=== PATIENT | male | born 1950 | race Caucasian/White ===

== ENCOUNTER 2023-03-10 10:08 | Outpatient (OUT) | payer MEDICARE, OTHER, SELFPAY ==
[2023-03-10 10:30] LABS: Basophils Percent Auto 0.7 % (0.2-2.0); Eosinophils Absolute Auto 0.2 10^3/uL (0.0-0.7); Eosinophils Percent Auto 4.1 % (0.9-7.0); Hematocrit 42.3 % (42.0-54.0); Hemoglobin 13.6 g/dL (14.0-18.0); Immature Granulocytes Abs Auto 0.01 10^3/uL (0.00-0.03); Immature Granulocytes Pct Auto 0.2 % (0.0-0.5); Lymphocytes Absolute Auto 1.5 10^3/uL (1.2-3.8); Lymphocytes Percent Auto 27.5 % (20.5-60.0); Mean Corpuscular HGB Conc 32.2 g/dL (29.9-35.2); Mean Corpuscular Hemoglobin 31.2 pg (25.9-34.0); Mean Platelet Volume 8.8 fL (9.5-13.5); Monocytes Absolute Auto 0.7 10^3/uL (0.3-0.8); Monocytes Percent Auto 11.8 % (1.7-12.0); Neutrophils Absolute Auto 3.1 10^3/uL (1.4-6.5); Neutrophils Percent Auto 55.7 % (43.0-75.0); Platelet Count 291 10^3/uL (150-450); Red Blood Count 4.36 10^6/uL (4.70-6.10); Red Cell Distribution Width 12.8 % (11.0-15.0); White Blood Count 5.6 10^3/uL (4.0-11.0)
[2023-03-10 12:47] LABS: Alanine Aminotransferase 34 U/L (16-63); BUN Creatinine Ratio 15.9; Calcium 9.7 mg/dL (8.5-10.1); Carbon Dioxide 27.8 mmol/L (21.0-32.0); Chloride 106 mmol/L (98-107); Chol HDL Ratio 4.2; Cholesterol 191 mg/dL (<=200); Estimated GFR (African America >60 (>=60); Estimated GFR (Non-African Ame >60 (>=60); Glucose 100 mg/dL (74-106); HDL Cholesterol 46 mg/dL (40-60); LDL Cholesterol Calculated 116.8 mg/dL; Potassium 3.8 mmol/L (3.5-5.1); Sodium 143 mmol/L (136-145); Triglycerides 141 mg/dL (<=150); VLDL CHOLESTEROL 28.2 mg/dL
[2023-03-10 14:43] LABS: Prostate Specific Antigen Scrn 1.42 ng/mL (<=4.00)
== END 2023-03-10 10:09 | disposition home or self-care (01) ==
LOC: LAB 10:08
PROVIDERS: PCP Internal Medicine; Visit Provider Internal Medicine
DX: E78.00 Pure hypercholesterolemia, unspecified (principal); I10 Essential (primary) hypertension; Z12.5 Encounter for screening for malignant neoplasm of prostate; Z79.899 Other long term (current) drug therapy; I48.0 Paroxysmal atrial fibrillation
CPT/HCPCS: 36415; 80048; 80061; 84460; 85025; G0103

== ENCOUNTER 2023-06-02 11:21 | Outpatient (OUT) | payer MEDICARE, OTHER, SELFPAY ==
--- OUTSIDE RECORDS SUMMARY | 2023-06-02 11:27 | XMS_ITS | CCD ---
Author Name Unknown Address [address] [place] [address] Organization [facility] Care Team Providers Care Screen Roller Name Role Phone PHYSICIAN, DEFAULT Unavailable Unavailable PHYSICIAN, DEFAULT Unavailable ALVIN Rivero Unavailable Alvin Rivero DO Primary Care Provider DR ALVIN CONTRERAS Primary Care Unavailable HANNA GUPTA Admitting Unavailable HANNA GUPTA Attending Unavailable CANDY, DR TIFFANY Elizondo Consulting Unavailable HANNA GUPTA Consulting Unavailable DREA LINO Admitting Unavailable DREA LINO Attending Unavailable TERESITA, DR QUINTEROS Primary Care Unavailable DREA LINO Consulting Unavailable TERESITA, DR QUINTEROS Admitting Unavailable TERESITA, DR QUINTEROS Attending Unavailable TERESITA, DR QUINTEROS Primary Care Unavailable TERESITA, DR QUINTEROS Consulting Unavailable Alvin Contreras DO Primary Care Provider HARESH PINEDA Attending Unavailable HARESH PINEDA Referring Unavailable ALVIN CONTRERAS Primary Care Unavailable HARESH PINEDA Referring Unavailable HARESH PINEDA Attending Unavailable ALVIN CONTRERAS Primary Care Unavailable JR. PHELPS GEORGE C Attending Unavaila ble Alvin Contreras Unavailable LYDIA JENKINS Attending Unavailable DREA LINO Attending Unavailable DREA LINO Attending Unavailable Allergies Allergy Classification Reported Allergen(s) Allergy Type Date of Onset Reaction(s) Facility (2 sources) meperidine Drug Allergy 4 [facility] Repository (5 sources) Penicillins; Translations: [PENICILLINS] Drug allergy (disorder) 2 AOF [facility] Repository (4 sources) Penicillins Drug Allergy 4 Hives [facility] (6 sources) Insects Extract; Translations: [INSECTS EXTRACT] Drug Allergy 1 Other: See Comments [facility] (1 source) atorvastatin Drug Allergy [facility] Other (1 source) Penicillin Drug Allergy [facility] Other (1 source) Substance with penicillin structure and antibacterial mechanism of action (substance) Drug allergy Unknown [facility] Other (1 source) carvedilol; Translations: [CARVEDILOL] Drug Allergy 3 [facility] Repository (1 source) Meperidine; Translations: [MEPERIDINE] Drug Allergy 8 [facility] Repository (1 source) Metoprolol; Translations: [METOPROLOL] Drug Allergy 3 [facility] Repository (1 source) nebivolol; Translations: [NEBIVOLOL] Drug Allergy 3 [facility] Repository Medications Current Medications Medication Drug Class(es) Dates Sig (Normalized) Sig (Original) amLODIPine 10 mg oral tablet (5 sources) Dihydropyridine Calcium Channel Lisa Start: 11-21-2020 take 1 tablet by mouth once daily amLODIPine Besylate 10MG amLODIPine Besylate 10MG, 1 (one) Tablet Tablet Tablet Tablet daily # 0, 11/21/2020, No Refill. Active Oral daily *Pick strength-form from COZero for eRX* Nov, Active Start: 08-02-2018 take 4 tablets by [facility] twice daily amLODIPine (NORVASC) 2.5 mg tablet Take 10 mg by mouth twice daily. 3 08/02/2018 Active Comment on above: Take 10 mg by mouth twice daily. amoxicillin 875 mg oral tablet (1 source) Penicillin-class Antibacterial Start: 04-04-20 take 1 tablet by mouth twice daily Amoxicillin 875 MG amoxicillin 875mg, 1 (one) tablet two times daily # 10, 04/04/2022, No Refill. Active Oral two times daily for 5 Mar, Active baclofen 10 mg oral tablet (1 source) gamma-Aminobutyric Acid-ergic Agonist take 1 tablet by mouth once daily at bedtime Baclofen 10 MG TAKE 1 TABLET BY MOUTH AT BEDTIME EVERY NIGHT for 90 Active flecainide acetate 100 mg oral tablet (4 sources) Antiarrhythmic Start: 04-04-20 Flecainide Acetate 100MG Flecainide Acetate( 100MG Oral 1 two times daily ) Active -Hx Entry Oral two times daily *Pick strength-form from COZero for eRX* Mar, Active Start: 10-08-2021 flecainide (TA MBOCOR) 100 mg tablet Losartan Potassium-HCTZ 100-25MG (1 source) Start: 04-04-2022 Losartan Potas sium-HCTZ 100-25MG Losartan Potassium-HCTZ( 100-25MG Oral ) Active -Hx Entry Oral *Pick strength-form from COZero for eRX* Mar, Active Completed/Discontinued Medications Medication Drug Class(es) Dates Sig (Normalized) Sig (Original) amiodarone hydrochloride 100 mg oral tablet (4 sources) Antiarrhythmic amiodarone (PACERONE) 100 mg tablet Indications: Neoplasm of unspecified behavior of bone, soft tissue, and skin Take 100 mg by mouth once daily. Taking 200 mg's every other day and taking 100mg's every other day. 0 Active Comment on above: Take 100 mg by mouth once daily. Taking 200 mg's every other day and taking 100mg's every other day. aspirin 325 mg oral tablet (4 sources) Platelet Aggregation Inhibitor, Nonsteroidal Anti-inflammatory Drug take 1 tablet by mouth once daily aspirin 325 mg tablet Take 325 mg by mouth once daily. 0 Active Comment on above: Take 325 mg by mouth once daily. hydroCHLOROthiazide 25 mg / losartan potassium 100 mg oral tablet (4 sources) Thiazide Diuretic, Angiotensin 2 Receptor Lisa Start: 03-20-2017 take 1 tablet by mouth once daily losartan-hydroc hlorothiazide (HYZAAR) 100-25 mg per tablet Indications: Neoplasm of unspecified behavior of bone, soft tissue, and skin Take 1 tablet by mouth once daily. 0 03/20/2017 Active Comment on above: Take 1 tablet by sudhakar once daily. magnesium gluconate 550 mg oral tablet (4 sources) Magnesium 30 mg tablet Take 500 mg by mouth once daily. 0 Active Comment on above: Take 500 mg by mouth once daily. 24 hr metoprolol succinate 25 mg extended release oral tablet (3 sources) beta-Adrenergic Lisa Start: 08-23-2021 metoprolol succinate ER (TOPROL XL) 25 mg 24 hr tablet q 24 HR. 0 08/23/2021 Active Comment on above: q 24 HR. Potassium (4 sources) take 300 mg by mouth once daily potassium (POTASSIMIN ORAL) Take 300 mg by mouth once daily. 0 Active Comment on above: Take 300 mg by mouth once daily. 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, unspecified] Onset: 08-20-2017 Chronic Cardiac dysrhythmias (17 sources) Paroxysmal atrial fibrillation; Translations: [Paroxysmal atrial fibrillation] Onset: 08-24-2017 08-24-2017 Chronic Deficiency and other anemia (1 source) Anemia, unspecified Episodic Disorders of lipid metabolism (6 sources) Familial hypercholesterolemia ; Translations: [Pure hypercholesterolemia ] Onset: 02-07-2022 Chronic Essential hypertension (6 sources) Essential hypertension; Translations: [Essential (primary) hypertension] Onset: 08-24-2017 08-24-2017 Chronic Hyperplasia of prostate (1 source) Lower urinary tract symptoms due to benign prostatic hypertrophy; Translations: [Benign prostatic hyperplasia with lower urinary tract symptoms] Chronic Osteoarthritis (1 source) Localized, primary osteoarthritis of the shoulder region; Translations: [Primary osteoarthritis, left shoulder] Chronic Other endocrine disorders (1 source) Adrenal mass; Translations: [Other specified disorders of adrenal gland] Chronic Other nervous system disorders (1 source) Other chronic pain; Translations: [Chronic pain of left ankle] Onset: 01-13-2023 Chronic Other non-traumatic joint disorders (5 sources) Chronic ankle pain; Translations: [Pain in right ankle and joints of right foot] Onset: 08-31-2018 08-31-2018 Episodic Other non-traumatic joint disorders (1 source) Pain in left ankle and joints of left foot; Translations: [Chronic pain of left ankle] Onset: 01-13-2023 Episodic Other nutritional; endocrine; and metabolic disorders (2 sources) Obesity; Translations: [Other obesity due to excess calories] Onset: 08-24-2017 08-31-2018 Chronic Other nutritional; endocrine; and metabolic disorders (2 sources) Obesity caused by energy imbalance; Translations: [Other obesity due to excess calories] Onset: 08-24-2017 08-31-2018 Chronic Paralysis (4 sources) Monoplegia of lower limb; Translations: [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] Onset: 06-30-2019 06-30-2019 Chronic Phlebitis; thrombophlebitis and thromboembolism (1 source) H/O: Deep vein thrombosis; Translations: [Personal history of other venous thrombosis and embolism] Episodic Residual codes; unclassified (4 sources) Obstructive sleep apnea syndrome; Translations: [Obstructive sleep apnea (adult) (pediatric)] Onset: 08-24-2017 08-24-2017 Chronic Spondylosis; intervertebral disc disorders; other back problems (1 source) Lumbar spondylosis; Translations: [Spondylosis without myelopathy or radiculopathy, lumbar region] Chronic Past or Other Problems Problem Classification Problem Date Documented Da te Episodic/Chronic Acquired foot deformities (4 sources) Right foot drop; Translations: [Foot drop, right foot] Onset: 06-30-2019 06-30-2019 Episodic Cardiac dysrhythmias (5 sources) Palpitations; Translations: [Palpitations] Onset: 06-06-2022 Episodic Other aftercare (1 source) Other intermediate project manager (current) drug therapy; Translations: [OTH SENIOR CARE CURRENT DRUG THERAPY] Onset: 02-12-2022 Episodic Other bone disease and musculoskeletal deformities (4 sources) Lesion of right thigh bone; Translations: [Disorder of bone, unspecified] Onset: 08-27-2017 08-27-2017 Episodic Other connective tissue disease (4 sources) Pain in left forearm; Translations: [PAIN IN LEFT FOREARM] Onset: 10-10-2021 Episodic Other injuries and conditions due to external causes (1 source) History of falling; Translations: [HISTORY OF FALLING] Onset: 10-11-2021 Episodic Other nervous system disorders (4 sources) Abnormal gait; Translations: [Unspecified abnormalities of gait and mobility] Onset: 06-30-2019 06-30-2019 Episodic Other nervous system disorders (4 sources) Skin sensation disturbance; Translations: [Unspecified disturbances of skin sensation] Onset: 06-30-2019 06-30-2019 Episodic Other screening for suspected conditions (not mental disorders or infectious disease) (1 source) Encounter for screening for malignant neoplasm of prostate; Translations: [ENC SCREEN MALIG NEOPLASM PROSTATE] Onset: 02-12-2022 Episodic Results Test Name Value Interpretation Reference Range Facility Orders Onlyon 05-29-2023 Orders Only [id number] Lucinda Sharma Juanjose 1950 M Date Provider Department Center 05/29/2023 Zane-J CARLOS COOK Family History Problem Relation Age of Onset Coronary artery disease Other Hypertension Other Family Status - Relation Status Age at Other Normal [facility] CNOVon 01-13-2023 CNOV Office Visit ([facility] ) BANG SHARMA ([id number]) 1950 M Date Time Provider Department 01/13/23 2:30 PM HARESH PINEDA ORFP During your visit today, we recorded the following information about you: Haresh Pineda MD 01/13/2023 4:19 PM Signed Orthopaedic Surgery Follow-Up Clinic Note Surgery/Date: 08/27/2017 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 (CPT 09719 - 22) Placement of Prophylactic Carbon Fiber Tibial Nail, Right Tibia (CPT 97630) High Speed [place] and Adjuvant Treatment with 10% H202 (CPT 80202) Neruolysis and Dissection of Deep Peroneal Nerve (CPT 07272) Right Iliac Crest Marrow Aspiration/Ingleside ( CPT 28618) Diagnosis: 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 Sharma today. He obtained chest and right tibia plain films today. No concerns with regard to his right tibia today. He also asked about left ankle x-rays to be completed today, as well. He has been experiencing swelling and popping in the left ankle. Right ankle also still bothersome. Feels he likely needs to see Dr. Bah again. He had an injection in 2019, felt it helped for about a year. Has been busy working out in the yard, doing a lot of walking. Exam: RLE -- largely unchanged compared to the October 2020 Incisions are healed 5/5 APF, 4/5 ADF (unchanged), 1/5 EHL (unchanged) Maintains a normal sensation in the 1st DWS, plantar foot, dorsum foot Decreased deep touch sensation in tibial nerve distribution No pain with ankle ROM No knee effusion Painless ankle and knee range of motion Knee ROM is 0-110? 4/5 quadriceps strength 2+ DP pulses Imagin01/13/23 Right tibia plain films --> Reviewed. Healed proximal tibia fracture without concern for failed Carbofix nail. No concerns for LR. 01/13/23 Chest x-ray --> Reviewed. No concerns for metastatic disease. 11/05/2021 Right tibia plain film --> Reviewed. Evidence of healed fracture. No concerns for hardware failure of carbon fiber intramedullary nail. Position of most distal proximal screw that has partly backed out remains unchanged. 11/05/2021 Chest x-ray --> Reviewed. No concern for metastatic dissemination. 10/31/2020 Right tibia plain film --> Reviewed. Fracture is healed. No concerns for hardware failure of carbon fiber intramedullary nail. Unchanged position of most distal proximal screw that has partly backed out 10/31/2020 Chest x-ray --> Reviewed. No concern for metastatic dissemination. 10/26/19 CT right tibia --> Reviewed. No concern for local recurrence, a completely healed fracture site is noted. 10/26/19 Right tibia plain film --> Reviewed. Healed fracture is noted, with carbon fiber nail in place, no concern of hardware failure. 10/26/19 Chest x-ray --> Reviewed. No concern for metastatic dissemination. 02/23/19 Right tibia plain films --> Reviewed. Healed fracture in proximal tibia with bone graft reconstitution, no concern for obvious hardware failure, the distal most proximal locking screw has partially backed out, but unchanged since August 2018. 02/23/19 Chest X-ray --> Reviewed. Compared to August 2018, no concerns for change, no metastatic disease. A/P: - RTC in 1 year with repeat CXR + Tibia Films (5-yr anniversary). No further advanced imaging is necessary. This will be his last visit if no concerns. - MSTS Registry Completed and Updated -- consent has been discussed in the past, but he has not signed. I will plan on re-approaching at his 5-yr anniverary. - No activity restrictions on my end Years post-op: ~5.5 years --> Plan to follow along low-grade chondrosarcoma guidelines I spent a total of 30 minutes on the date of the service which included [id number] patient care, completing clinical documentation, obtaining and/or reviewing separately obtained history, performing a medically appropriate examination, counseling and educating the patient/family/caregiv er, ordering medications, tests, or procedures, independently interpreting results (not separately reported), and communicating results to the patient/family/caregiv er. The counseled portion is detailed in the plan, as above, that I have personally verified and edited as appropriate. Any information added by medical student, resident, nurse, ACURA SALES CONSULTANT/PAJayC that I have placed my signature directly below I have verified and either instructed them to document in a scribe function or document appropriately in the chart during the patient visit. Haresh Beavers (more content not included)... Normal [facility] XR ANKLE 3V AP/LAT/OBL LTon 01-13-2023 XR ANKLE 3V AP/LAT/OBL LT * * *Final Report* * * DATE OF EXAM: Jan 13 2023 2:19PM AOX 5298 - XR ANKLE 3V AP/LAT/OBL LT / PROCEDURE REASON: multiple diagnoses * * * * Physician Interpretation * * * * HISTORY: Chondrosarcoma (HCC) TECHNOLOGIST PROVIDED HISTORY (if applicable): follow up right lower leg (accession [id number]), left ankle pain and popping sensation (accession [id number]) TECHNIQUE: XR TIBIA FIBULA 2V AP/LAT RT, XR ANKLE 3V AP/LAT/OBL LT RESULT: RIGHT tibia and fibula 2 views 4 images and RIGHT ankle 3 views. Comparison is to tibia and fibula from 11/05/2021 and ankle from 11/23/2019. A lucent antegrade tibial intramedullary laura is again seen with radiolucent markers, 3 proximal interlocking screws and 2 distal interlocking screws. The most distal screw extends several threaded length into the tibia with minimal surrounding lucency as before. Underlying deformity of the proximal tibia with areas of mature periosteal new bone formation again seen, similar to the prior in this patient with history of prior chondrosarcoma resection. No findings suggestive of recurrence. Degenerative changes at the knee, ankle and hindfoot similar to the prior. IMPRESSION: NO SIGNIFICANT CHANGE. NO RADIOGRAPHIC SIGNS OF RECURRENCE. E Commerce Retailer: [facility] Transcribe Date/Time: Jan 13 2023 4:43P Dictated by : JULISA WEAVER MD This examination was interpreted and the report reviewed and electronically signed by: JULISA WEAVER MD on Jan 13 2023 4:53PM EST [id number] Normal [facility] XR CHEST 2V FRONTAL/LATon XR CHEST 2V FRONTAL/LAT * * *Final Report* * * DATE OF EXAM: Jan 13 2023 2:19PM AOX 5291 - XR CHEST 2V FRONTAL/LAT / PROCEDURE REASON: Chondrosarcoma (HCC) * * * * Physician Interpretation * * * * EXAMINATION: CHEST RADIOGRAPH (2 VIEW FRONTAL and LATERAL) CLINICAL HISTORY: Chondrosarcoma (HCC) MQ: [id number] EXAM DATE/TIME: 01/13/2023 2:19 PM COMPARISON: 11/05/2021 RESULT: Lines, tubes, and devices: None. Lungs and pleura: No consolidation. No lung mass. No pleural effusion. No pneumothorax. Cardiomediastinal silhouette: Stable cardiomediastinal silhouette. Bones and soft tissues: Spine degenerative changes IMPRESSION: See result [employer] Retailer: [facility] Transcribe Date/Time: Jan 15 2023 3:13P Dictated by : RIKKI PEDERSEN MD This examination was interpreted and the report reviewed and electronically signed by: RIKKI PEDERSEN MD on Jan 15 2023 3:14PM EST [id number] Normal [facility] XR TIBIA FIBULA 2V AP/LAT RT on 01-13-2023 XR TIBIA FIBULA 2V AP/LAT RT * * *Final Report* * * DATE OF EXAM: Jan 13 2023 2:19PM AOX 5266 - XR TIBIA FIBULA 2V AP/LAT RT / PROCEDURE REASON: Chondrosarcoma (HCC) * * * * Physician Interpretation * * * * HISTORY: Chondrosarcoma (HCC) TECHNOLOGIST PROVIDED HISTORY (if applicable): follow up right lower leg (accession [id number]), left ankle pain and popping sensation (accession [id number]) TECHNIQUE: XR TIBIA FIBULA 2V AP/LAT RT, XR ANKLE 3V AP/LAT/OBL LT RESULT: RIGHT tibia and fibula 2 views 4 images and RIGHT ankle 3 views. Comparison is to tibia and fibula from 11/05/2021 and ankle from 11/23/2019. A lucent antegrade tibial intramedullary laura is again seen with radiolucent markers, 3 proximal interlocking screws and 2 distal interlocking screws. The most distal screw extends several threaded length into the tibia with minimal surrounding lucency as before. Underlying deformity of the proximal tibia with areas of mature periosteal new bone formation again seen, similar to the prior in this patient with history of prior chondrosarcoma resection. No findings suggestive of recurrence. Degenerative changes at the knee, ankle and hindfoot similar to the prior. IMPRESSION: NO SIGNIFICANT CHANGE. NO RADIOGRAPHIC SIGNS OF RECURRENCE. [employer] Retailer: [facility] Transcribe Date/Time: Jan 13 2023 4:43P Dictated by : JULISA WEAVER MD This examination was interpreted and the report reviewed and electronically signed by: JULISA WEAVER MD on Jan 13 2023 4:53PM EST [id number] Normal [facility] Office Visiton 12-16-2022 Follow-up visit [id number] Lucinda Sharma 1950 M Date Provider Department Center 12/16/2022 Jadyn-LYDIA JENKINS [facility] Family History Problem Relation Age of Onset Coronary artery disease Other Hypertension Other Family Status - Relation Status Age at Other Level of Service:18064 CT OFFICE/OUTPATIENT ESTABLISHED HIGH MDM 40-54 MIN Normal [facility] 3610-08-2022 36 We can try labetalol 100mg BID instead. If he is not able to tolerate labetalol please have him follow-up with Dr. Jenkins. Thanks! Normal [facility] 36on 10-03-2022 36 The last telephone encounter you sent me 09/22/22 I had said switch coreg to nebivolol. [facility] 36 I thought we switche d him to nebivolol? [facility] 36on 09-21-2022 36 Can switch him to nebivolol 5mg daily. [facility] Orders Onlyon 09-19-2022 Orders Only [id number] Lucinda Sharma 1950 M Date Provider Department Center 09/19/2022 J CARLOS VICTOR [facility] Family History Problem Relation Age of Onset Coronary artery disease Other Hypertension Other Family Status - Relation Status Age at Other [facility] 36on 2022 36 Hmm, I don't see whe re I discontinued it. Maybe his PCP did? Or did he get the impression that with starting carvedilol he was stopping the losartan? We can either have him resume the losartan or we can try to increase his carvedilol to 6.25mg BID. [facility] Office Visiton 07-09-2022 Follow-up visit [id number] Lucinda Sharma 1950 M Date Provider Department Center 07/09/2022 [facility] History Problem Relation Age of Onset Coronary artery disease Other Hypertension Other Family Status - Relation Status Age at Other Level of Service:48573 CT OFFICE/OUTPATIENT ESTABLISHED MOD MDM 30-39 MIN Reason for Visit and Comments: Atrial Fibrillation [80] Palpitations [226489] [facility] FLECAINEon 06-24-2022 FLECAINIDE 0.39 ug/ml Normal 0.20 - 1.00 [facility] Comment on above: Result Comment: Flec ainide reported as flecainide acetate. The reference range also is defined as flecaininde acetate. This test was developed and its performance characteristics determined by [facility]. It has not been cleared or approved by the Food and Drug Administration. Performed By: #### T SH, BMP, LIPID, ALT #### [facility] [address] [place] [address] Dr. Fidel Paige CBC AUTO DIFFon 06-09-2022 BASO # 0.0 103/ul Normal 0.0-0.1 [facility] Comment on above: Performed By: #### C BC #### [facility] [address] [place] [address] Dr. Fidel Paige Basophils/100 WBC (Bld) 0.6 % Normal 0.2-2.0 [facility] Comment on above: Performed By: #### C BC #### [facility] [address] [place] [address] Dr. Fidel Paige EO # 0.1 103/ul Normal 0.0-0.7 [facility] Comment on above: Performed By: #### C BC #### [facility] [address] [place] [address] Dr. Fidel Paige Eosinophils/100 WBC (Bld) 2.8 % Normal 0.9-7.0 [facility] Comment on above: Performed By: #### C BC #### [facility] [address] [place] [address] Dr. Fidel Paige Erythrocyte distribution width (RBC) [Ratio] 12.8 % Normal 11.0-15.0 [facility] Comment on above: Performed By: #### C BC #### [facility] [address] [place] [address] Dr. Fidel Paige Hematocrit (Bld) [Volume fraction] 41.9 % Critically low 42.0-54.0 [facility] Comment on above: Performed By: #### C BC #### [facility] [address] [place] [address] Dr. Fidel Paige Hemoglobin (Bld) [Mass/Vol] 14.1 g/dL Normal 14.0-18.0 [facility] Comment on above: Performed By: #### C BC #### [facility] [address] [place] [address] Dr. Fidel Paige IG # 0.01 10e3/ul Normal 0.00-0.03 [facility] Comment on above: Performed By: #### C BC #### [facility] [address] [place] [address] Dr. Fidel Paige IG % 0.2 % Normal 0.0-0.5 [facility] Comment on above: Performed By: #### C BC #### [facility] [address] [place] [address] Dr. Fidel Paige LYMPH # 1.4 103/ul Normal 1.2-3.8 [facility] [facility] Comment on above: Performed By: #### C BC #### [facility] [address] [place] [address] Dr. Fidel Paige Lymphocytes/100 WBC (Bld) 29.2 % Normal 20.5-60.0 [facility] Comment on above: Performed By: #### C BC #### [facility] [address] [place] [address] Dr. Fidel Paige MANUAL DIFF REQ NO Normal [facility] Comment on above: Performed By: #### C BC #### [facility] [address] [place] [address] Dr. Fidel Paige MCH (RBC) [Entitic mass] 31.3 pg Normal 25.9-34.0 [facility] Comment on above: Performed By: #### C BC #### [facility] [address] [place] [address] Dr. Fidel Paige MCHC (RBC) [Mass/Vol] 33.7 g/dL Normal 29.9-35.2 [facility] Comment on above: Performed By: #### C BC #### [facility] [address] [place] [address] Dr. iFdel Paige MCV (RBC) [Entitic vol] 92.9 fL Normal 80.0-94.0 [facility] Comment on above: Performed By: #### C BC #### [facility] [address] [place] [address] Dr. Fidel Paige MONO # 0.7 103/ul Normal 0.3-0.8 [facility] Comment on above: Performed By: #### C BC #### [facility] [address] [place] [address] Dr. Fidel Paige Monocytes/100 WBC (Bld) 13.4 % Critically high 1.7-12.0 [facility] Comment on above: Performed By: #### C BC #### [facility] [address] [place] [address] Dr. Fidel Paige NEUT # 2.7 103/ul Normal 1.4-6.5 [facility] Comment on above: Performed By: #### C BC #### [facility] [address] [place] [address] Dr. Fidel Paige Neutrophils/100 WBC (Bld) 53.8 % Normal 43.0-75.0 [facility] Comment on above: Performed By: #### C BC #### [facility] [address] [place] [address] Dr. Fidel Paige Platelet mean volume (Bld) [Entitic vol] 8.7 fL Critically low 9.5-13.5 [facility] Comment on above: Performed By: #### C BC #### [facility] [address] [place] [address] Dr. Fidel Paige PLT 278 103/ul Normal 150-450 [facility] Comment on above: Performed By: #### C BC #### [facility] [address] [place] [address] Dr. Fidel Paige RBC 4.51 106/ul Critically low 4.70-6.10 [facility] Comment on above: Performed By: #### C BC #### [facility] [address] [place] [address] Dr. Fidel Paige WBC 4.9 103/ul Normal 4.0-11.0 [facility] Comment on above: Performed By: #### C BC #### [facility] [address] [place] [address] Dr. Fidel Paige MAGNESIUMon 06-09-2022 Magnesium [Mass/Vol] 2.0 mg/dL Normal 1.8-2.4 [facility] Comment on above: Performed By: #### T SH, MG, BMP #### [facility] [address] [place] [address] Dr. Fidel Paige PROF CHEM 8 (BAS METB)on Anion gap [Moles/Vol] 8.2 mmol/L Normal [facility] Comment on above: Performed By: #### T BEATRIS MG, BMP #### [facility] [address] [place] [address] Dr. Fidel Paige Calcium [Mass/Vol] 10.2 mg/dL Critically high 8.5-10.1 [facility] Comment on above: Performed By: #### T BEATRIS MG, BMP #### [facility] [address] [place] [address] Dr. Fidel Paige Chloride [Moles/Vol] 105 mmol/L Normal 98-107 [facility] Comment on above: Performed By: #### T BEATRIS MG, BMP #### [facility] [address] [place] [address] Dr. Fidel Paige CO2 [Moles/Vol] 29.6 mmol/L Normal 21.0-32.0 [facility] Comment on above: Performed By: #### T BEATRIS MG, BMP #### [facility] [address] [place] [address] Dr. Fidel Paige Creatinine [Mass/Vol] 0.81 mg/dL Normal 0.70-1.30 [facility] Comment on above: Performed By: #### T BEATRIS MG, BMP #### [facility] [address] [place] [address] Dr. Fidel Paige EGFR-AF CHADIAN >60 Normal >=60 [facility] Comment on above: Performed By: #### T BEATRIS MG, BMP #### [facility] [address] [place] [address] Dr. Fidel Paige EGFR-NON AF CHADIAN >60 Normal >=60 [facility] Comment on above: Performed By: #### T BEATRIS MG, BMP #### [facility] [address] [place] [address] Dr. Fidel Paige Glucose [Mass/Vol] 100 mg/dL Normal 74-106 [facility] Comment on above: Performed By: #### T BEATRIS MG, BMP #### [facility] [address] [place] [address] Dr. Fidel Paige Potassium [Moles/Vol] 3.8 mmol/L Normal 3.5-5.1 [facility] Comment on above: Performed By: #### T SH, MG, BMP #### [facility] [address] [address] [address] Fidel Paige Sodium [Moles/Vol] 139 mmol/L Normal 136-145 [facility] Comment on above: Performed By: #### T SH, MG, BMP #### [facility] [address] [address] [address] Fidel Paige Urea nitrogen [Mass/Vol] 12.0 mg/dL Normal 7.0-18.0 [facility] Comment on above: Performed By: #### T BEATRIS MG, BMP #### [facility] [address] [address] [address] Fidel Paige Urea nitrogen/Creatinin e [Mass ratio] 14.8 mg/mg Normal [facility] Comment on above: Performed By: #### T BEATRIS, MG, BMP #### [facility] [address] [address] [address] Fidel Paige TSHon 06-09-2022 TSH 0.891 uIU/mL Normal 0.358-3.740 [facility] Comment on above: Performed By: #### T BEATRIS, MG, BMP #### [facility] [address] [address] [address] Fidel Paige Office Visiton 06-06-2022 Follow-up visit [id number] Lucinda Sharma 1950 M Date Provider Department Center 06/06/2022 DREA STOVALL [facility] Family History Problem Relation Age of Onset Coronary artery disease Other Hypertension Other Family Status - Relation Status Age at Other Level of Service:87868 CT OFFICE/OUTPATIENT ESTABLISHED MOD MDM 30-39 MIN Reason for Visit and Comments: Atrial Fibrillation [80] Palpitations [875068] Hypertension [753319] Normal [facility] 36on 06-04-2022 35 Pt states he does no t take metoprolol as it dropped his bp. BP now is 137/72 55 I did make him an appt with you on the . Normal [facility] 36 lm Normal [facility] 36on 06-03-2022 36 Pt said palpitations are all day does get SOB when he sleeps on right side, they go away Normal [facility] 36 Pt said palpitations are all day does get SOB when he sleeps on right side, they go away [facility] CBC AUTO DIFFon 02-07-2022 BASO # 0.0 103/ul Normal 0.0-0.1 [facility] Comment on above: Performed By: #### T SH, BMP, LIPID, ALT #### [facility] [address] [place] [address] Dr. Fidel Paige Basophils/100 WBC (Bld) 0.3 % Normal 0.2-2.0 [facility] Comment on above: Performed By: #### T SH, BMP, LIPID, ALT #### [facility] [address] [place] [address] Dr. Fidel Paige EO # 0.1 103/ul Normal 0.0-0.7 [facility] Comment on above: Performed By: #### T SH, BMP, LIPID, ALT #### [facility] [address] [place] [address] Dr. Fidel Paige Eosinophils/100 WBC (Bld) 2.1 % Normal 0.9-7.0 [facility] Comment on above: Performed By: #### T SH, BMP, LIPID, ALT #### [facility] [address] [place] [address] Dr. Fidel Paige Erythrocyte distribution width (RBC) [Ratio] 13.1 % Normal 11.0-15.0 [facility] Comment on above: Performed By: #### T SH, BMP, LIPID, ALT #### [facility] [address] [place] [address] Dr. Fidel Paige Hematocrit (Bld) [Volume fraction] 45.2 % Normal 42.0-54.0 [facility] Comment on above: Performed By: #### T SH, BMP, LIPID, ALT #### [facility] [address] [address] [address] Fidel Paige Hemoglobin (Bld) [Mass/Vol] 14.8 g/dL Normal 14.0-18.0 [facility] Comment on above: Performed By: #### T SH, BMP, LIPID, ALT #### [facility] [address] [address] [address] Fidel Paige IG # 0.02 10e3/ul Normal 0.00-0.03 [facility] Comment on above: Performed By: #### T SH, BMP, LIPID, ALT #### [facility] [address] [place] [address] Dr. Fidel Paige IG % 0.3 % Normal 0.0-0.5 [facility] Comment on above: Performed By: #### T SH, BMP, LIPID, ALT #### [facility] [address] [place] [address] Dr. Fidel Paige LYMPH # 1.4 103/ul Normal 1.2-3.8 [facility] Comment on above: Performed By: #### T SH, BMP, LIPID, ALT #### [facility] [address] [place] [address] Dr. Fidel Paige Lymphocytes/100 WBC (Bld) 23.2 % Normal 20.5-60.0 [facility] Comment on above: Performed By: #### T SH, BMP, LIPID, ALT #### [facility] [address] [place] [address] Dr. Fidel Paige MANUAL DIFF REQ NO Normal [facility] Comment on above: Performed By: #### T SH, BMP, LIPID, ALT #### [facility] [address] [place] [address] Dr. Fidel Paige MCH (RBC) [Entitic mass] 31.6 pg Normal 25.9-34.0 [facility] Comment on above: Performed By: #### T SH, BMP, LIPID, ALT #### [facility] [address] [place] [address] Dr. Fidel Paige MCHC (RBC) [Mass/Vol] 32.7 g/dL Normal 29.9-35.2 [facility] Comment on above: Performed By: #### T SH, BMP, LIPID, ALT #### [facility] [address] [place] [address] Dr. Fidel Paige MCV (RBC) [Entitic vol] 96.6 fL Critically high 80.0-94.0 [facility] Comment on above: Performed By: #### T SH, BMP, LIPID, ALT #### [facility] [address] [place] [address] Dr. Fidel Paige MONO # 0.7 103/ul Normal 0.3-0.8 [facility] Comment on above: Performed By: #### T SH, BMP, LIPID, ALT #### [facility] [address] [place] [address] Dr. Fidel Paige Monocytes/100 WBC (Bld) 11.7 % Normal 1.7-12.0 [facility] Comment on above: Performed By: #### T SH, BMP, LIPID, ALT #### [facility] [address] [place] [address] Dr. Fidel Paige NEUT # 3.6 103/ul Normal 1.4-6.5 [facility] Comment on above: Performed By: #### T SH, BMP, LIPID, ALT #### [facility] [address] [place] [address] Dr. Fidel Paige Neutrophils/100 WBC (Bld) 62.4 % Normal 43.0-75.0 [facility] Comment on above: Performed By: #### T SH, BMP, LIPID, ALT #### [facility] [address] [place] [address] Dr. Fidel Paige Platelet mean volume (Bld) [Entitic vol] 8.8 fL Critically low 9.5-13.5 [facility] Comment on above: Performed By: #### T SH, BMP, LIPID, ALT #### [facility] [address] [place] [address] Dr. Fidel Paige PLT 283 103/ul Normal 150-450 [facility] Comment on above: Performed By: #### T SH, BMP, LIPID, ALT #### [facility] [address] [address] [address] Fidel Paige RBC 4.68 106/ul Critically low 4.70-6.10 [facility] Comment on above: Performed By: #### T SH, BMP, LIPID, ALT #### [facility] [address] [address] [address] Fidel Paige WBC 5.8 103/ul Normal 4.0-11.0 [facility] Comment on above: Performed By: #### T SH, BMP, LIPID, ALT #### [facility] [address] [place] [address] Dr. Fidel Paige LIPID PROFILEon 02-07-2022 CHOL-HDL RATIO NORM SEE BELOW Normal [facility] Comment on above: Result Comment: 3.3 - 4.4 LOW RISK 4.4 - 7.1 AVERAGE RISK 7.1 - 11.0 MODERATE RISK >11.0 HIGH RISK Performed By: #### T SH, BMP, LIPID, ALT #### [facility] [address] [address] [address] Fidel Paige Cholesterol [Mass/Vol] 191 mg/dL Normal <=200 [facility] Comment on above: Performed By: #### T SH, BMP, LIPID, ALT #### [facility] [address] [place] [address] Dr. Fidel Paige Cholesterol in HDL [Mass/Vol] 42 mg/dL Normal 40-60 [facility] Comment on above: Performed By: #### T SH, BMP, LIPID, ALT #### [facility] [address] [address] [address] Fidel Paige Cholesterol in LDL [Mass/Vol] 118.0 mg/dL Normal [facility] Comment on above: Performed By: #### T SH, BMP, LIPID, ALT #### [facility] [address] [place] [address] Dr. Fidel Paige Cholesterol.total/ Cholesterol in HDL [Mass ratio] 4.5 {ratio} Normal [facility] Comment on above: Performed By: #### T SH, BMP, LIPID, ALT #### [facility] [address] [address] [address] Fidel Paige HDL NORMAL > or = 60 mg/dl - LO W CARDIOVASCULAR RISK <40 mg/dl - HIGH CARDIOVASCULAR RISK Normal [facility] Comment on above: Performed By: #### T SH, BMP, LIPID, ALT #### [facility] [address] [address] [address] Fidel Paige LDL CALC NORMAL SEE BELOW Normal [facility] Comment on above: Result Comment: <100 mg/dl OPTIMAL 100 - 129 mg/dl NEAR OR ABOVE OPTIMAL 130 - 159 mg/dl BORDERLINE HIGH 160 - 189 mg/dl HIGH >190 mg/dl VERY HIGH Performed By: #### T SH, BMP, LIPID, ALT #### [facility] [address] [address] [address] Fidel Paige Triglyceride [Mass/Vol] 155 mg/dL Critically high <=150 [facility] Comment on above: Performed By: #### T SH, BMP, LIPID, ALT #### [facility] [address] [address] [address] Fidel Paige VLDL CALC 31.0 mg/dL Normal [facility] Comment on above: Performed By: #### T SH, BMP, LIPID, ALT #### [facility] [address] [address] [address] Fidel Paige PROF CHEM 8 (BAS METB)on Anion gap [Moles/Vol] 11.0 mmol/L Normal [facility] Comment on above: Performed By: #### T SH, BMP, LIPID, ALT #### [facility] [address] [address] [address] Fidel Paige Calcium [Mass/Vol] 10.1 mg/dL Normal 8.5-10.1 [facility] Comment on above: Performed By: #### T SH, BMP, LIPID, ALT #### [facility] [address] [address] [address] Fidel Paige Chloride [Moles/Vol] 105 mmol/L Normal 98-107 [facility] Comment on above: Performed By: #### T SH, BMP, LIPID, ALT #### [facility] [address] [address] [address] Fidel Paige CO2 [Moles/Vol] 29.0 mmol/L Normal 21.0-32.0 [facility] Comment on above: Performed By: #### T SH, BMP, LIPID, ALT #### [facility] [address] [address] [address] Fidel Paige Creatinine [Mass/Vol] 0.85 mg/dL Normal 0.70-1.30 [facility] Comment on above: Performed By: #### T SH, BMP, LIPID, ALT #### [facility] [address] [address] [address] Fidel Paige EGFR-AF CHADIAN >60 Normal >=60 [facility] Comment on above: Performed By: #### T SH, BMP, LIPID, ALT #### [facility] [address] [address] [address] Fidel Paige EGFR-NON AF CHADIAN >60 Normal >=60 [facility] Comment on above: Performed By: #### T SH, BMP, LIPID, ALT #### [facility] [address] [address] [address] Fidel Paige Glucose [Mass/Vol] 101 mg/dL Normal 74-106 [facility] Comment on above: Performed By: #### T SH, BMP, LIPID, ALT #### [facility] [address] [address] [address] Fidel Paige Potassium [Moles/Vol] 4.0 mmol/L Normal 3.5-5.1 [facility] Comment on above: Performed By: #### T SH, BMP, LIPID, ALT #### [facility] [address] [address] [address] Fidel Paige Sodium [Moles/Vol] 141 mmol/L Normal 136-145 [facility] Comment on above: Performed By: #### T SH, BMP, LIPID, ALT #### [facility] [address] [address] [address] Fidel Paige Urea nitrogen [Mass/Vol] 13.0 mg/dL Normal 7.0-18.0 [facility] Comment on above: Performed By: #### T SH, BMP, LIPID, ALT #### [facility] [address] [address] [address] Fidel Paige Urea nitrogen/Creatinin e [Mass ratio] 15.3 mg/mg Normal [facility] Comment on above: Performed By: #### T SH, BMP, LIPID, ALT #### [facility] [address] [address] [address] Fidel Paige SGPTon 02-07-2022 ALT [Catalytic activity/Vol] 26 U/L Normal 16-63 [facility] Comment on above: Performed By: #### T SH, BMP, LIPID, ALT #### [facility] [address] [place] [address] Dr. Fidel Paige TSHon 02-07-2022 TSH 0.856 uIU/mL Normal 0.358-3.740 [facility] Comment on above: Performed By: #### T SH, BMP, LIPID, ALT #### [facility] [address] [place] [address] Dr. Fidel Paige XR CHEST 2V FRONTAL/LATon [facility] US VENOUS DOPPLER L Cristian US VENOUS DOPPLER L ARM EXAMINATION: US VENOUS DOPPLER L ARM HISTORY: Pain ; left forearm pain and swelling, erythema at site of recent scrape/skin injury. COMPARISON: No relevant comparison available. FINDINGS: REGION: Left forearm THROMBI: None. COMPRESSIBILITY: Normal compressibility. FLOW: Normal waveform and antegrade flow between 5 and 20 cm/s. OTHER: Small amount of subcutaneous edema. IMPRESSION: 1. No deep vein thrombus within the left upper extremity. 2. Small amount of subcutaneous edema at site of concern. Electronically authenticated by: TIFFANY GUPTA Date: 2021-10-10 12:51 Normal [facility] Encounters Encounter Date Encounter Type Care Provider Facility Start: 05-29-2023 End: 05-29-2023 ambulatory Alvin Contreras [facility] Other Start: 05-29-2023 Telephone encounter Alvin BUNDY [facility] Start: 03-30-2023 End: 03-30-2023 ambulatory JR. NIKKI Sarah PHELPS Not Available Start: 01-13-2023 End: 01-14-2023 ambulatory HARESH PINEDA Facility:[facility] Start: 01-12-2023 Orders Only Haresh Pineda MD Work Phone: Orthopaedics Comment on above: Chronic pain of left ankle (Primary Dx) Start: 12-16-2022 End: 12-16-2022 ambulatory [facility] Start: 11-17-2022 Orders Only Haresh Pineda MD Work Phone: Orthopaedics Comment on above: Chondrosarcoma (HCC) (Primary Dx) Start: 07-09-2022 End: 07-09-2022 ambulatory [facility] Start: 06-09-2022 End: 06-10-2022 ambulatory [facility] Facility:[facility] Start: 06-06-2022 End: 06-06-2022 ambulatory [facility] Start: 02-07-2022 End: 02-08-[address] ALVIN CONTRERAS Facility:[facility] Start: 11-05-2021 End: 11-05-2021 Patient encounter procedure Haresh Pineda MD Work Phone: Orthopaedics Comment on above: Chondrosarcoma (HCC) (Primary Dx) Start: 11-05-2021 End: 11-05-2021 Subsequent hospital visit by physician Xr Chest Main A21 Radiology Comment on above: 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 Fidel Paige Start: 11-05-2021 Radiologic exam ches t 2 views Eric Taylor APRN.CNP Work Phone: Start: 11-05-2021 Radiologic examinati on tibia & fibula 2 views Eric Taylor APRN.CNP Work Phone: Start: 06-30-2019 Adult depression scr eening assessment Haresh Pineda MD Work Phone: Plan of Treatment Date Care Activity Detail Author Start: 12-19-2022 Influenza vaccination [facility] Start: 11-05-2022 End: 12-05-2022 Radiologic exam chest 2 views XR CHEST 2V FRONTAL/LAT Radiology Routine Chondrosarcoma (HCC) Expected: 11/05/2022 (Approximate), Expires: 12/05/2022 [facility] Work Phone: Comment on above: Expected: 11/05/2022 (Approximate), Expires: 12/05/2022 Start: 11-05-2022 End: 12-05-2022 XR TIBIA FIBULA 2V AP/LAT RIGHT XR TIBIA FIBULA 2V AP/LAT RIGHT Radiology Routine Chondrosarcoma (HCC) Expected: 11/05/2022 (Approximate), Expires: 12/05/2022 [facility] Work Phone: Comment on above: Expected: 11/05/2022 (Approximate), Expires: 12/05/2022 Start: 10-25-2022 DIABETES SCREEN DIABETES SCREEN [facility] Start: 10-25-2022 Diabetes Screening Diabetes Screenin g [facility] Start: 04-20-2022 ADVANCE DIRECTIVE DISCUSSION ADVANCE DIRECTIVE DISCUSSION [facility] Start: 04-20-2022 DEPRESSION ASSESSMENT DEPRESSION ASS ESSMENT [facility] Start: 12-19-2021 Influenza vaccination INFLUENZA (#1) [facility] Start: 11-18-2021 COVID-19 VACCINE (5 - Pfizer series) COVID-19 VACCINE (5 - Pfizer series) [facility] Start: 04-20-2021 ADVANCE DIRECTIVE DISCUSSION ADVANCE DIRECTIVE DISCUSSION [facility] Start: 06-29-2020 Adult depression screening assessment DEPRESSION SCREENING [facility] Start: 2014 Pneumococcal Vaccine : 65+ (1 - PCV) Pneumococcal Vaccine: 65+ (1 - PCV) [facility] Start: 2014 PNEUMOCOCCAL: 65+ (1 - PCV) PNEUMOCOCCAL: 65+ (1 - PCV) [facility] Start: 09-19-1999 SHINGRIX VACCINE (1 of 2) SHINGRIX VACCINE (1 of 2) [facility] Start: 1994 COLOGUARD (FIT-DNA) COLOGUARD (FIT-D NA) [facility] Start: 1994 Colonoscopy COLONOSCOPY [facility] Start: 1994 COLORECTAL CANCER SCREENING COLORECTAL CANCER SCREENING [facility] Start: [address] COLONOGRAPHY [facility] Start: 1994 FECAL OCCULT BLOOD FECAL OCCULT BLOO D [facility] Start: 1994 SIGMOIDOSCOPY SIGMOIDOSCOPY [facility] Start: 1984 Lipid 1996 panel - Serum or Plasma Lipid Screening [facility] Start: 1984 LIPID SCREEN LIPID SCREEN [facility] Start: 1968 Urine microalbumin profile [facility] Start: 09-19-1967 ANNUAL PCP TEAM AFFILIATE MANAGER LEE ANN DISEASE VISIT ANNUAL PCP TEAM CHRONIC DISEASE VISIT [facility] Start: 09-19-1967 BP CONTROLLED (<130/80) BP CONTROLLE D (<130/80) [facility] Start: 09-19-1967 HEPATITIS C SCREENING HEPATITIS C SC REENING [facility] End: 12-17-2023 Radiologic exam chest 2 views XR CHEST 2V FRONTAL/LAT Radiology Routine Chondrosarcoma (HCC) 1 Occurrences starting 11/17/2022 until 12/17/2023 [facility] Work Phone: Comment on above: 1 Occurrences starti ng 11/17/2022 until 12/17/2023 End: 02-11-2024 XR ANKLE GENERAL 3V AP/LAT/OBL LEFT XR ANKLE GENERAL 3V AP/LAT/OBL LEFT Radiology Routine Chronic pain of left ankle 1 Occurrences starting 01/12/2023 until 02/11/2024 [facility] Work Phone: Comment on above: 1 Occurrences starti ng 01/12/2023 until 02/11/2024 End: 12-17-2023 XR TIBIA FIBULA 2V AP/LAT RIGHT XR TIBIA FIBULA 2V AP/LAT RIGHT Radiology Routine Chondrosarcoma (HCC) 1 Occurrences starting 11/17/2022 until 12/17/2023 [facility] Work Phone: Comment on above: 1 Occurrences starti ng 11/17/2022 until 12/17/2023 XR TIBIA FIBULA 2V AP/LAT RT XR TIBIA FIBULA 2V AP/LAT RT Radiology Routine Chondrosarcoma (HCC) 11/05/2021 2:50 PM EDT [facility] Work Phone: [facility] Immunizations Immunization Date Immunization Notes Care Provider Omar tilley 02-10-2022 influenza virus vaccine, split virus (incl. purified surface antigen) Alvin Contreras Other [facility] Other 05-29-2020 COVID-19 Vaccine Pfi zer - Documentation Purposes Only Alvin Contreras [facility] Other 10-02-2016 diphtheria, tetanus toxoids and acellular pertussis vaccine, unspecified formulation Alvin Contreras Other [facility] Other 03-23-2016 pneumococcal conjuga te vaccine, 13 valent Alvin Contreras Other [facility] Other 03-01-2009 pneumococcal polysaccharide vaccine, 23 valent Alvin Contreras Other [facility] Other 02-25-2006 diphtheria, tetanus toxoids and acellular pertussis vaccine, unspecified formulation Alvin Contreras Other [facility] Other Payers Date Payer Category Payer Medicare MEDICARE MEDICAR E A AND B [id number] 2014-Present [phone] [place] [address] Medicare [id number] 2014 Medicare MEDICARE RAILROA D MEDICARE RAILROAD PB ONLY [id number] 2014-Present [phone] [address] [address] [place] [address] Medicare [id number] 2014 Unknown 2014 Unknown [employer] 2N D [id number] 2014-Present [phone] [address] [address] [place] [address] Indemnity [id number] 2014 Unknown [id number] 1959 Medicare [id number] 1959 Unknown [id number] 1949 Unknown [id number] 1949 Unknown [id number] 1949 Unknown [id number] 1949 Unknown [id number] Social History Date Type Detail Facility Start: 07-17-2017 Tobacco smoking stat [facility] Never smoked tobacco [facility] Start: 07-17-2017 Tobacco use and exposure Smoke less tobacco non-user [facility] Start: 1950 Sex Assigned At Male C [facility] Start: 10-26-2021 End: 11-05-2021 Exposure to SARS-CoV-2 (event) Not sure [facility] Start: 06-30-2019 End: 05-18-2022 History of Social function [facility] Start: 06-30-2019 End: 05-18-2022 Area Deprivation Index [facility] National Score (1-10 0), lower number is lower risk 60 [facility] Start: 11-23-2019 Sexual orientation Heterosexual (dirk gibson) [facility] Medical Equipment Procedure Code Equipment Code Equipment Origin al Text Equipment Identifier Dates Graft Enhance Demineralized Cortical Fiber Bone Allograft Dehydrate 2.5ml - [id number] Start: 08-27-2017 Graft Cancellous Chips Bone Void Freeze Dry 30ml (1.7-10mm) - [id number] Start: 08-27-2017 Graft Dbx Bone V oid Allograft Freeze Dried Putty 1ml - [id number] Start: 08-27-2017 Tibial Nail [id number] Start: 08-27-2017 Carbofix Titaniumscrew [id number] S tart: 08-27-2017 Carbofix Titaniu m Screw [id number] Start: 08-27-2017 Carbofix Titaniu m Screw [id number] Start: 08-27-2017 Carbofix Titaniu m Screw [id number] Start: 08-27-2017 Carbofix Titaniu m Screw [id number] Start: 08-27-2017 Clinical Notes 10-10-2021 to 05-29-2023 Note Date & Type Note Facility 05-29-2023 Evaluation note Encounter Date Diagnosis Assessment Notes May, Anemia (ICD-10 - D64.9) [facility] Other 09-26-2023 NoteHNO ID: [id number] Author: Keri Lopez RN Service: ? Author Type: Registered Nurse Type: Progress Notes Filed: 01/13/2023 4:19 PM Note Text: I served as a scribe during this office visit encounter. Keri Lopez [facility]09-26-2023 NoteHNO ID: [id number] Author: Ranjith Teixeira RT(R) Service: Radiology Author Type: Technologist Type: Progress Notes Filed: 01/13/2023 2:20 PM Note Text: Radiology Service Progress Note PATIENT NAME: Bang Sharma DATE OF SERVICE: January 13, 2023 TIME: 2:20 PM PATIENT IDENTITY VERIFICATION COMPLETED USING TWO (2) IDENTIFIERS: Name and Date of confirmed by patient verbally. FALL SCREENING: Has the patient had 2 falls in the last year or 1 fall with injury or currently using an Ambulatory Assistive Device (Walker, Cane, Wheelchair, Crutches, etc.)? No PATIENT GENDER DATA: Male PATIENT RELEVANT IMPLANT DATA REVIEWED: Not Applicable RADIOLOGY DEPARTMENT: General X-ray: Exam(s) Completed: Chest X-Ray Lower Extremity X-Ray(s): Tibia Fibula, Right and Ankle, Left and Wt. Bearing PERIPHERAL IV DATA: Not applicable SIGNED BY: RT Mariel(R) January 13, 2023 2:20 [facility]09-26-2023 NoteHNO ID: [id number] Author: Haresh Pineda MD Service: ? 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 Sharma today. He obtained chest and right tibia plain films today. No concerns with regard to his right tibia today. He also asked about left ankle x-rays to be completed today, as well. He has been experiencing swelling and popping in the left ankle. Right ankle also still bothersome. Feels he likely needs to see Dr. Bah again. He had an injection in 2019, felt it helped for about a year. Has been busy working out in the yard, doing a lot of walking. Exam: RLE -- largely unchanged compared to the October 2020 Incisions are healed 5/5 APF, 4/5 ADF (unchanged), 1/5 EHL (unchanged) Maintains a normal sensation in the 1st DWS, plantar foot, dorsum foot Decreased deep touch sensation in tibial nerve distribution No pain with ankle ROM No knee effusion Painless ankle and knee range of motion Knee ROM is 0-110? 4/5 quadriceps strength 2+ DP pulses Imagin01/13/23 Right tibia plain films --> Reviewed. Healed proximal tibia fracture without concern for failed Carbofix nail. No concerns for LR. 01/13/23 Chest x-ray --> Reviewed. No concerns for metastatic disease. 11/05/2021 Right tibia plain film --> Reviewed. Evidence of healed fracture. No concerns for hardware failure of carbon fiber intramedullary nail. Position of most distal proximal screw that has partly backed out remains unchanged. 11/05/2021 Chest x-ray --> Reviewed. No concern for metastatic dissemination. 10/31/2020 Right tibia plain film --> Reviewed. Fracture is healed. No concerns for hardware failure of carbon fiber intramedullary nail. Unchanged position of most distal proximal screw that has partly backed out 10/31/2020 Chest x-ray --> Reviewed. No concern for metastatic dissemination. 10/26/19 CT right tibia --> Reviewed. No concern for local recurrence, a completely healed fracture site is noted. 10/26/19 Right tibia plain film --> Reviewed. Healed fracture is noted, with carbon fiber nail in place, no concern of hardware failure. 10/26/19 Chest x-ray --> Reviewed. No concern for metastatic dissemination. 02/23/19 Right tibia plain films --> Reviewed. Healed fracture in proximal tibia with bone graft reconstitution, no concern for obvious hardware failure, the distal most proximal locking screw has partially backed out, but unchanged since August 2018. 02/23/19 Chest X-ray --> Reviewed. Compared to August 2018, no concerns for change, no metastatic disease. A/P: - RTC in 1 year with repeat CXR + Tibia Films (5-yr anniversary). No further advanced imaging is necessary. This will be his last visit if no concerns. - MSTS Registry Completed and Updated -- consent has been discussed in the past, but he has not signed. I will plan on re-approaching at his 5-yr anniverary. - No activity restrictions on my end Years post-op: ~5.5 years --> Plan to follow along low-grade chondrosarcoma guidelines I spent a total of 30 minutes on the date of the service which included ldar-ex-kzae patient care, completing clinical documentation, obtaining and/or reviewing separately obtained history, performing a medically appropriate examination, counseling and educating the patient/family/caregiver, ordering medications, tests, or procedures, independently interpreting results (not separately reported), and communicating results to the patient/family/caregiver. The counseled portion is detailed in the plan, as above, that I have personally verified and edited as appropriate. Any information added by medical student, resident, nurse, ACURA SALES CONSULTANT/PAJayC that I have placed my signature directly below I have verified and either instructed them to document in a scribe function or document appropriately in the chart during the patient visit. Haresh Pineda MD used car salesperson, CCLCM at [facility], Division of Musculoskeletal Oncology Co-Director of Sarcoma Care, [facility] Pager: [phone] (more content not included)...[id number]08-29-2023 NoteUT Electrophysiology Consult Note Reason for visit: Afib 12/16/22 He notices an increase in frequency of palpitations. He he some palpitations off and on yesterday. He has been having an increase in palpitations since he refilled his last bottle of Flecainide. The palpitations felt like it occurred every third beat, like a premature beat. He notes he has not been taking Toprol for some time d/t c/o dizziness and lower HR. Able to do work at home and is active. He denies CP, orthopnea, PND, LE edema, dizziness/LH, palpitations, bleeding issues. Prior HPI: Bang Sharma is a 72 y.o. year old with prior history of uncontrolled HTN, paroxysmal atrial fibrillation status post cardioversion, paroxysmal VT who is here for A-fib follow up. Lili is currently maintained on amiodarone.He was on Sotalol in the past. He is currently not on anticoagulation due to fear of bleeding and recurrent bleeding with minor scratches and also states that it is too expensive for him (~600/mo). He was on eliquis but stopped it two years. He does not feel his Afib. He recently got a Lexiscan for increasing SOB which was negative. Currently, he feels well and denies any active symptoms. Patient has undergone cardioversion on 11/21/[address] Watson EP study by Dr. Carmen Flores on 03/22/2012 for evaluation of wide-complex tachycardia in the setting of normal ejection fraction revealed normal HV interval but no evidence of any AH jump suggestive of dual AV node physiology and no tachycardia was induced. This was followed up with [facility] with [facility] protocol which was negative for inducible arrhythmias subsequently Isuprel was started and again this was repeated and no evidence of jump or any echo beats and repeat the ventricular stimulation study was negative for any arrhythmias Cardiac cath performed on 01/29/2012 showed normal coronary angiogram with a normal EF Prior testing: ECHO 12/06/2020: Normal ejection fraction of 60 to 65% with a mildly enlarged left atrium and no other significant valvular abnormalities 11/04/17 ECHO: Global left ventricular systolic function is normal (Visually estimated EF 55-60%). Left ventricular wall thickness is increased. Moderate to severe left ventricular hypertrophy. No regional wall motion abnormality. Normal right ventricular systolic function. The left atrium is severely enlarged. The right atrium is mildly enlarged. Unable to assess right sided pressures due to lack of measurable tricuspid regurgitation. 11/21/2015 CVL report IMPRESSION: Successful direct-current cardioversion with religion of sinus rhythm from atrial fibrillation with no immediate complication. 03/22/12: EPS EP study by Dr. Carmen Flores on 03/22/2012 for evaluation of wide-complex tachycardia in the setting of normal ejection fraction revealed normal HV interval but no evidence of any AH jump suggestive of dual AV node physiology and no tachycardia was induced. This was followed up with [facility]ST with [facility] protocol which was negative for inducible arrhythmias subsequently Isuprel was started and again this was repeated and no evidence of jump or any echo beats and repeat the ventricular stimulation study was negative for any arrhythmias 01/29/12:CATH Impression: 1. Normal coronary angiogram. 2. Mild systemic hypertension. 3. Normal left ventricular function by noninvasive study CATH 01/29/12: Impression: 1. Normal coronary angiogram. 2. Mild systemic hypertension. 3. Normal left ventricular function by noninvasive study. ECHO 12/06/20: Left Ventricle: The left ventricle is mildly enlarged. Global left ventricular systolic function is normal. EF range is estimated at 60 % -65 %. Left ventricular wall thickness is moderately increased. Unable to assess diastolic dysfunction. Concentric left ventricular hypertrophy. Right Ventricle: The right ventricle is normal in size. Normal right ventricular systolic function. Doppler studies suggest mildly elevated right sided pressures. Left Atrium: The left atrium is mildly enlarged. Right Atrium: The right atrium appears enlarged. Overall Conclusions: Due to suboptimal imaging Lumason contrast was administered for opacification and better delineation of endocardial borders. No significant valvular abnormalities HOLTER 11/21/2020: Sinus rhythm with PACs and PVCs with episodes of atrial fibrillation seen. Lexiscan 12/13/2020: Negative PMH: Past Medical History: Diagnosis Date Abnormal ECG Arrhythmia HLD (hyperlipidemia) HTN (hypertension) LVH (left ventricular hypertrophy) PAF (paroxysmal atrial fibrillation) (CMS/HCC) Primary cardiomyopathy (CMS/HCC) PVT (paroxysmal ventricular tachycardia) (CMS/HCC) SVT (supraventricular tachycardia) (CMS/HCC) Tachycardia PSH: Past Surgical History: Procedure Laterality Date CARDIAC CATHETERIZATION CARDIOVERSION HAND SURGERY (more content not included)...[facility] 07-09-2022 NoteCardiovascular Medicine [facility] SUBJECTIVE Chief Complaint Patient presents with Atrial Fibrillation Palpitations Bang Sharma is a 71 y.o. male here for follow-up. Atrial Fibrillation Presents for follow-up visit. Symptoms are negative for bradycardia, chest pain, dizziness, hypertension, palpitations, shortness of breath, syncope and tachycardia. The symptoms have been improving. Past medical history includes atrial fibrillation. Palpitations The problem has been resolved. Pertinent negatives include no chest pain, dizziness, fever, irregular heartbeat, malaise/fatigue, near-syncope, shortness of breath or syncope. Since last seen, he started taking a magnesium supplement and his palpitations improved. 120-130/80s, HR running in the 60s He notices an increase in frequency of palpitations. He he some palpitations off and on yesterday. He has been having an increase in palpitations since he refilled his last bottle of Flecainide. He has accompanied SOB with his palpitations. The palpitations felt like it occurred every third beat, like a premature beat. He notes he has not been taking Toprol for some time d/t c/o dizziness and lower HR. He denies CP, orthopnea, PND, LE edema, dizziness/LH, palpitations, bleeding issues. He was having issues with low BPs, he reduced his Toprol to 12.5mg daily and his BP improved. He c/o HALEY with stair climbing - not new for him. He was started on Xarelto when last seen. He states he is not currently taking it. He states he cannot afford it and he is concerned about his bleeding ris. Denies c/o chest pain, dyspnea at rest or exertion, orthopnea, PND, LE edema, dizziness/LH, palpitations. Last HPI per Dr. Jenkins (02/12/21): CC: A-fib Mr. Sharma is a 70-year-old man with prior history of uncontrolled HTN, paroxysmal atrial fibrillation status post cardioversion, paroxysmal VT who is here for A-fib follow up. Lili is currently maintained on amiodarone.He was on Sotalol in the past. He is currently not on anticoagulation due to fear of bleeding and recurrent bleeding with minor scratches and also states that it is too expensive for him (~600/mo). He was on eliquis but stopped it two years. He does not feel his Afib. He recently got a Lexiscan for increasing SOB which was negative. Currently, he feels well and denies any active symptoms. Patient has undergone cardioversion on 11/21/[address] Watson EP study by Dr. Carmen Flores on 03/22/2012 for evaluation of wide-complex tachycardia in the setting of normal ejection fraction revealed normal HV interval but no evidence of any AH jump suggestive of dual AV node physiology and no tachycardia was induced. This was followed up with [facility] with [facility] protocol which was negative for inducible arrhythmias subsequently Isuprel was started and again this was repeated and no evidence of jump or any echo beats and repeat the ventricular stimulation study was negative for any arrhythmias Patient Active Problem List Diagnosis Chest pain Chondrosarcoma (CMS/HCC) Chronic pain of right ankle Class 2 obesity due to excess calories without serious comorbidity with body mass index (BMI) of 37.0 to 37.9 in adult Disturbance of skin sensation Dyspnea Essential hypertension Gait abnormality Hyperlipidemia 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) REMY (obstructive sleep apnea) Paroxysmal supraventricular tachycardia (CMS/HCC) Primary cardiomyopathy (CMS/HCC) Right foot drop Tachycardia Past Medical History: Diagnosis Date HLD (hyperlipidemia) HTN (hypertension) LVH (left ventricular hypertrophy) PAF (paroxysmal atrial fibrillation) (CMS/HCC) Primary cardiomyopathy (CMS/HCC) PVT (paroxysmal ventricular tachycardia) SVT (supraventricular tachycardia) (CMS/HCC) Tachycardia Family History Problem Relation Name Age of Onset Coronary artery disease Other Hypertension Other Social History Tobacco Use Smoking status: Never Smokeless tobacco: Never Substance Use Topics Alcohol use: Yes Comment: occasional Allergies Allergen Reactions Penicillins Hives Meperidine Review of Systems Constitutional: Negative for chills, fever and malaise/fatigue. Cardiovascular: Negative for chest pain, dyspnea on exertion, irregular heartbeat, leg swelling, near-syncope, orthopnea, palpitations, paroxysmal nocturnal dyspnea and syncope. Respiratory: Negative for shortness of breath. Neurological: Negative for dizziness. OBJECTIVE Visit Vitals BP 138/85 (BP Location: Left arm, Patient Position: Sitting) Pulse 69 Ht 1.905 m (6' 3 ) Wt 127 kg (279 lb) SpO2 96% BMI 34.87 kg/m??? Smoking Status Never BSA 2.59 m??? Medications: Curr (more content not included)...[facility]03-22-2023 NotePatient here for 1 mo follow up palpitations and PAF. Had labs 06/09/2022. He says palpitations and dizziness has resolved. Denies chest pain and SOB. Review of Systems Cardiovascular: Positive for leg swelling (intermittent, wears compression stockings prn). Musculoskeletal: Positive for arthritis, joint pain and neck pain. All other systems reviewed and are negative.[facility] 06-06-2022 NoteCardiovascular Medicine [facility] SUBJECTIVE Chief Complaint Patient presents with Atrial Fibrillation Palpitations Hypertension Bang Sharma is a 71 y.o. male here for follow-up. HPI He notices an increase in frequency of palpitations. He he some palpitations off and on yesterday. He has been having an increase in palpitations since he refilled his last bottle of Flecainide. He has accompanied SOB with his palpitations. The palpitations felt like it occurred every third beat, like a premature beat. He notes he has not been taking Toprol for some time d/t c/o dizziness and lower HR. He denies CP, orthopnea, PND, LE edema, dizziness/LH, palpitations, bleeding issues. He was having issues with low BPs, he reduced his Toprol to 12.5mg daily and his BP improved. He c/o HALEY with stair climbing - not new for him. He was started on Xarelto when last seen. He states he is not currently taking it. He states he cannot afford it and he is concerned about his bleeding ris. Denies c/o chest pain, dyspnea at rest or exertion, orthopnea, PND, LE edema, dizziness/LH, palpitations. Last HPI per Dr. Jenkins (02/12/21): CC: A-fib Mr. Sharma is a 70-year-old man with prior history of uncontrolled HTN, paroxysmal atrial fibrillation status post cardioversion, paroxysmal VT who is here for A-fib follow up. Lili is currently maintained on amiodarone.He was on Sotalol in the past. He is currently not on anticoagulation due to fear of bleeding and recurrent bleeding with minor scratches and also states that it is too expensive for him (~600/mo). He was on eliquis but stopped it two years. He does not feel his Afib. He recently got a Lexiscan for increasing SOB which was negative. Currently, he feels well and denies any active symptoms. Patient has undergone cardioversion on 11/21/[address] Watson EP study by Dr. Carmen Flores on 03/22/2012 for evaluation of wide-complex tachycardia in the setting of normal ejection fraction revealed normal HV interval but no evidence of any AH jump suggestive of dual AV node physiology and no tachycardia was induced. This was followed up with [facility] with [facility] protocol which was negative for inducible arrhythmias subsequently Isuprel was started and again this was repeated and no evidence of jump or any echo beats and repeat the ventricular stimulation study was negative for any arrhythmias Patient Active Problem List Diagnosis Chest pain Chondrosarcoma (CMS/HCC) Chronic pain of right ankle Class 2 obesity due to excess calories without serious comorbidity with body mass index (BMI) of 37.0 to 37.9 in adult Disturbance of skin sensation Dyspnea Essential hypertension Gait abnormality Hyperlipidemia 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) REMY (obstructive sleep apnea) Paroxysmal supraventricular tachycardia (CMS/HCC) Primary cardiomyopathy (CMS/HCC) Right foot drop Tachycardia Past Medical History: Diagnosis Date HLD (hyperlipidemia) HTN (hypertension) LVH (left ventricular hypertrophy) PAF (paroxysmal atrial fibrillation) (CMS/HCC) Primary cardiomyopathy (CMS/HCC) PVT (paroxysmal ventricular tachycardia) SVT (supraventricular tachycardia) (CMS/HCC) Tachycardia Family History Problem Relation Name Age of Onset Coronary artery disease Other Hypertension Other Social History Tobacco Use Smoking status: Never Smokeless tobacco: Never Substance Use Topics Alcohol use: Yes Comment: occasional Allergies Allergen Reactions Penicillins Hives Meperidine Review of Systems Constitutional: Negative for chills, fever and malaise/fatigue. Cardiovascular: Positive for irregular heartbeat and palpitations. Negative for chest pain, dyspnea on exertion, leg swelling, near-syncope, orthopnea, paroxysmal nocturnal dyspnea and syncope. Respiratory: Positive for shortness of breath. OBJECTIVE Visit Vitals BP 138/87 (BP Location: Left arm, Patient Position: Sitting) Pulse 70 Ht 1.905 m (6' 3 ) Wt 125 kg (276 lb) SpO2 95% BMI 34.50 kg/m??? Smoking Status Never BSA 2.57 m??? Medications: Current Outpatient Medications: amLODIPine (Norvasc) 10 mg tablet, Take 1 tablet (10 mg) by mouth in the morning., Disp: 90 tablet, Rfl: 3 aspirin 81 mg EC tablet, Take 81 mg by mouth in the morning., Disp: , Rfl: baclofen (Lioresal) 10 mg tablet, baclofen 10 mg tablet, Disp: , Rfl: flecainide (Tambocor) 100 mg tablet, Take 100 mg by mouth in the morning and at bedtime., Disp: , Rfl: losartan-hydrochlorothiazide (Hyzaar) 100-25 mg tablet, Take 1 tablet by mouth in the morning., Disp: 90 tablet, Rfl: 3 magnesium 30 mg tablet, Take 500 mg by mouth in the morning., Disp: , Rfl: Physical Exam Constitutional: Appearance: Normal appearance. (more content not included)...[facility]02-17-2023 NotePatient here for 6 mo follow up afib. Says PCP discontinued metoprolol since his last visit with us in August 2021 for lightheadedness. He called the office a few days ago c/o palpitations. Says today he hasn't had as many today as he has the past few days. Had routine labs in Jan 2022. Review of Systems Cardiovascular: Positive for palpitations. Musculoskeletal: Positive for arthritis, joint pain and neck pain. All other systems reviewed and are negative.[facility] 11-05-2021 History of Present illness Narrative* Haresh Pineda MD - 11/05/2021 5:19 PM EDT This note was created using NoteWriter. [facility]IAH SANCHEZ [facility] FU Advanced: Did this patient have an adverse event since their last encounter?: No * Haresh Pineda MD - 11/05/2021 4:07 PM EDT Orthopaedic Surgery Follow-Up Clinic Note Surgery/Date: 08/27/2017 1. 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 (CPT 63564 - 22) 2. Placement of Prophylactic Carbon Fiber Tibial Nail, Right Tibia (CPT 49942) 3. High Speed [place] and Adjuvant Treatment with 10% H202 (CPT 35834) 4. Neruolysis and Dissection of Deep Peroneal Nerve (CPT 31319) 5. 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 Sharma today. He obtained chest and tibia plain films today. Overall doing well with no pain. He has not noticed any changes in his RLE since his last visit. He was taking off amiodarone about 6 months ago. He continues to have drop foot but says he is conscious about raising his toe when he walks, which has helped. He does not use any bracing or orthotics. He is active in his garden and doing work around the house. 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 Exam: RLE -- largely unchanged compared to the October 2020 Incisions are healed 5/5 APF, 4/5 ADF (unchanged), 1/5 EHL (unchanged) Maintains a normal sensation in the 1st DWS, plantar foot, dorsum foot Decreased deep touch sensation in tibial nerve distribution No pain with ankle ROM No knee effusion Painless ankle and knee range of motion Knee ROM is 0-110 4/5 quadriceps strength 2+ DP pulses Imagin11/05/2021 Right tibia plain film --> Reviewed. Evidence of healed fracture. No concerns for hardware failure of carbon fiber intramedullary nail. Position of most distal proximal screw that has partly backed out remains unchanged. 11/05/2021 Chest x-ray --> Reviewed. No concern for metastatic dissemination. 10/31/2020 Right tibia plain film --> Reviewed. Fracture is healed. No concerns for hardware failure of carbon fiber intramedullary nail. Unchanged position of most distal proximal screw that haspartly backed out 10/31/2020 Chest x-ray --> Reviewed. No concern for metastatic dissemination. 10/26/19 CT right tibia --> Reviewed. No concern for local recurrence, a completely healed fracture site is noted. 10/26/19 Right tibia plain film --> Reviewed. Healed fracture is noted, with carbon fiber nail in place, no concern of hardware failure. 10/26/19 Chest x-ray --> Reviewed. No concern for metastatic dissemination. 02/23/19 Right tibia plain films --> Reviewed. Healed fracture in proximal tibia with bone graft reconstitution, no concern for obvious hardware failure, the distal most proximal locking screw has partially backed out, but unchanged since August 2018. 02/23/19 Chest X-ray --> Reviewed. Compared to August 2018, no concerns for change, no metastatic disease. A/P: - RTC in 1 year with repeat CXR + Tibia Films (5-yr anniversary). No further advanced imaging is necessary. This will be his last visit if no concerns. - MSTS Registry Completed and Updated -- consent has been discussed in the past, but he has not signed. I will plan on re-approaching at his 5-yr anniverary. - No activity restrictions on my end Months post-op: ~4 years --> Plan to follow along low-grade chondrosarcoma guidelines I spent a total of 30 minutes on the date of the service which included [id number] patient care, completing clinical documentation, obtaining and/or reviewing separately obtained history, performing a medically appropriate examination, counseling and educating the patient/family/caregiver, ordering medications, tests, or procedures, independently interpreting results (not separately reported) and communicating results to the patient/family/caregiver. Any information added by medical student, resident, nurse, ACURA SALES CONSULTANT/PA-C that I have placed my signature directly below I have verified and either instructed them to document in a scribe function or document appropriately in the chart during the patient visit. Haresh Pineda MD used car salesperson, CCLCM [facility], Division of Musculoskeletal Oncology Co-Director of Sarcoma Care, [facility] Pager: [phone] November 05, 2021 5:18 PM documented in this encounterMer[facility]07-19-[facility]22 History of Present illness Narrative* RT Stanford(R) - 11/05/2021 2:15 PM EDT Radiology Service Progress Note PATIENT NAME: Bang Sharma DATE OF SERVICE: November 05, 2021 TIME: 2:49 PM PATIENT IDENTITY VERIFICATION COMPLETED USING TWO (2) IDENTIFIERS: Name and Date of confirmedby patient verbally. FALL SCREENING: Has the patient had 2 falls in the last year or 1 fall with injury or currently using an Ambulatory Assistive Device (Walker, Cane, Wheelchair, Crutches, etc.)? No PATIENT GENDER DATA: Male PATIENT RELEVANT IMPLANT DATA REVIEWED: Not Applicable RADIOLOGY DEPARTMENT: General X-ray: Exam(s) Completed: Chest X-Ray Lower Extremity X-Ray(s): Tibia Fibula, Right PERIPHERAL IV DATA: Not applicable SIGNED BY: RT Stanford(R) November 05, 2021 2:49 PM documented in this encounterMer[facility]06-23-2022 NotePROCEDURE: XR FOREARM LT 2 VIEWS HISTORY: Unspecified fall ; acute left forearm pain and swelling; no known injury COMPARISON: None. FINDINGS: BONES:No fracture, acute abnormality, or significant arthropathy. SOFT TISSUES:Subcutaneous edema within the medial forearm. No radiopaque foreign body. Skin surface marker localizing area of swelling are noted. EFFUSION:None visible. OTHER: Negative. IMPRESSION: 1. Soft tissue swelling/edema of uncertain etiology. No radiopaque foreign body or bone involvement. 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, site unspecified documented in this encounter [facility] note* Diagnosis Chronic pain of left ankle- Primary documented in this encounter [facility] general Narrative - Reported* Type Description Date Medical History History of deep vein thrombosis Medical History Adrenal mass Medical History Benign prostatic hyp erplasia with lower urinary tract symptoms Medical History 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 Medical History Arthritis of left shoulder regio n Medical History Lumbar spondylosis Medical History Hyperlipidemia type II Surgical History Trigger Finger Release 2006 Surgical History Colonoscopy 2009 Surgical History LHC 2011 Surgical History Cardiac Ablation 2011 Surgical History Removal FB Right Hand 2015 Surgical History Resected Bone Right Tibia w/ ro d insertion 2018 Hospitalization History see surgical hx [facility] Other Reason for referral (narrative)* Diagnostic Procedure Only (Routine) - Pending Review Specialty Diagnoses / Procedures Referred By Contac t Referred To Contact XR IMAGING Diagnoses Chondrosarcoma (HCC) Procedures XR TIBIA FIBULA 2V AP/LAT RIGHT RADIOLOGIC EXAMINATION TIBIA & FIBULA 2 VIEWS Haresh Pineda MD [address] [place] [address] Xr Imaging Referral ID Status Reason Start Date Expiration Date Visits Requested Visits Authorized [id number] Pending Review Auto-Generat ed Referral 11/05/2022 12/05/2022 1 1 [facility] for referral (narrative)* Diagnostic Procedure Only (Routine) - Pending Review Specialty Diagnoses / Procedures Referred By Contac t Referred To Contact XR IMAGING Diagnoses Chondrosarcoma (HCC) Procedures XR TIBIA FIBULA 2V AP/LAT RIGHT RADIOLOGIC EXAMINATION TIBIA & FIBULA 2 VIEWS Haresh Pineda MD [address] [place] [address] Xr Imaging Referral ID Status Reason Start Date Expiration Date Visits Requested Visits Authorized [id number] Pending Review Auto-Generat ed Referral 11/17/2022 12/17/2023 1 1 [facility] for referral (narrative)* Diagnostic Procedure Only (Routine) - Authorized Specialty Diagnoses / Procedures Referred By Contac t Referred To Contact XR IMAGING Diagnoses Chronic pain of left ankle Procedures XR ANKLE GENERAL 3V AP/LAT/OBL LEFT RADEX ANKLE COMPLETE MINIMUM 3 VIEWS Valeri Quintero PA-C [address] [address] [place] [address] Referral ID Status Reason Start Date Expiration Date Visits Requested Visits Authorized [id number] Authorized Auto-Generat ed Referral 01/12/2023 02/11/2024 1 1 [facility] Summary Purpose Family History No Family History Records FoundNo Family History Records FoundNo Family History Records FoundNo Family History Records FoundNo Family History Records FoundNo Family History Records Found Advance Directives No Advanced Directives Records FoundDocuments on File Type Date Recorded Patient Senior Account Executive Expl anation Advance Directive(s) Advance Directive(s) 09/02/2018 11:24 AM Advance Directive(s) 08/26/2018 2:02 PM Advance Directive(s) 08/24/2017 2:28 PM Documents on File Type Date Recorded Patient Senior Account Executive Expl anation Advance Directive(s) Advance Directive(s) 09/02/2018 11:24 AM Advance Directive(s) 08/26/2018 2:02 PM Advance Directive(s) 08/24/2017 2:28 PM Documents on File Type Date Recorded Patient Senior Account Executive Expl anation Advance Directive(s) 08/24/2017 2:28 PM Additional Source Comments (unrecognized sect ion and content) No Status Records FoundNo Status Records FoundNo Status Records FoundNo Status Records FoundNo Status Records FoundNo Status Records Found INFORMATION SOURCE (unrecogn ized section and content) DATE CREATED AUTHOR 11/10/2017 [facility] DATE CREATED AUTHOR AUTHOR'S ORGANIZ ATION 06/26/2022 [facility] DATE CREATED AUTHOR AUTHOR'S ORGANIZ ATION 01/21/2023 [facility] DATE CREATED AUTHOR AUTHOR'S ORGANIZ ATION 01/21/2023 [facility] DATE CREATED AUTHOR AUTHOR'S ORGANIZ ATION 03/31/2023 [facility] EPIC DATE CREATED AUTHOR AUTHOR'S ORGANIZ ATION 06/01/2023 [facility] Source Comments (unrecognize d section and content) In the event this informatio n is protected by the Federal Confidentiality of Alcohol and Drug Abuse Patient Records regulations: The Federal rules restrict any use of the information to criminally investigate or prosecute any alcohol or drug abuse patient.[facility] HospitalIn the event this information is protected by the Federal Confidentiality of Alcohol and Drug Abuse Patient Records regulations: The Federal rules restrict any use of the information to criminally investigate or prosecute any alcohol or drug abuse patient.[facility] HospitalIn the event this information is protected by the Federal Confidentiality of Alcohol and Drug Abuse Patient Records regulations: The Federal rules restrict any use of the information to criminally investigate or prosecute any alcohol or drug abuse patient.[facility] HospitalIn the event this information is protected by the Federal Confidentiality of Alcohol and Drug Abuse Patient Records regulations: The Federal rules restrict any use of the information to criminally investigate or prosecute any alcohol or drug abuse patient.[facility] Reason for Visit (unrecogniz ed section and content) Reason Comments Follow Up Reason Comments Radio Gen A21 Care Teams (unrecognized sec tion and content) Screen Roller Relationship Specialty Start Date End Date Alvin Contreras, DO [address] [place] [address] PCP - General Internal Medicine 06/19/17 Screen Roller Relationship Specialty Start Date End Date Alvin Contreras, DO [address] [place] [address] PCP - General Internal Medicine 06/19/17 Screen Roller Relationship Specialty Start Date End Date Alvin Contreras, [address] [place] [address] PCP - General Internal Medicine 06/19/17 FOR RECORDS PERTAINING TO PATIENTS WHO ARE OR HAVE BEEN ENROLLED IN A CHEMICAL DEPENDENCY/SUBSTANCEABUSE PROGRAM, SOME INFORMATION MAY BE OMITTED. This clinical summary was aggregated from multiple sources. Caution should be exercised in using it in the provision of clinical care. This summary normalizes information from multiple sources, and as a consequence, information in this document may materially change the coding, format and clinical context of patient data. In addition, data may be omitted in some cases. CLINICAL DECISIONS SHOULD BE BASED ON THE PRIMARY CLINICAL RECORDS. [employer] provides no warranty or guarantee of the accuracy or completeness of information in this document.
[2023-06-02 11:47] LABS: Basophils Percent Auto 0.4 % (0.2-2.0); Eosinophils Absolute Auto 0.1 10^3/uL (0.0-0.7); Eosinophils Percent Auto 1.5 % (0.9-7.0); Hematocrit 42.7 % (42.0-54.0); Hemoglobin 13.6 g/dL (14.0-18.0); Immature Granulocytes Abs Auto 0.01 10^3/uL (0.00-0.03); Immature Granulocytes Pct Auto 0.1 % (0.0-0.5); Lymphocytes Absolute Auto 1.5 10^3/uL (1.2-3.8); Lymphocytes Percent Auto 22.3 % (20.5-60.0); Mean Corpuscular HGB Conc 31.9 g/dL (29.9-35.2); Mean Corpuscular Hemoglobin 30.9 pg (25.9-34.0); Mean Platelet Volume 8.9 fL (9.5-13.5); Monocytes Absolute Auto 0.7 10^3/uL (0.3-0.8); Monocytes Percent Auto 10.7 % (1.7-12.0); Neutrophils Absolute Auto 4.4 10^3/uL (1.4-6.5); Platelet Count 283 10^3/uL (150-450); Red Cell Distribution Width 12.9 % (11.0-15.0); Reticulocyte Pct Auto 1.41 % (0.60-3.10); White Blood Count 6.8 10^3/uL (4.0-11.0)
[2023-06-02 12:39] LABS: Percent Iron Saturation 34.5 %
== END 2023-06-02 11:22 | disposition home or self-care (01) ==
LOC: LAB 11:23
PROVIDERS: PCP Internal Medicine; Visit Provider Internal Medicine
DX: D64.9 Anemia, unspecified (principal)
CPT/HCPCS: 36415; 82607; 82728; 82746; 83540; 83550; 85025

== ENCOUNTER 2023-07-13 19:57 | Outpatient (OUT) | payer MEDICARE, OTHER, SELFPAY ==
--- OUTSIDE RECORDS SUMMARY | 2023-07-13 20:01 | XMS_ITS | CCD ---
Author Organization [facility] Care Team Providers Care Quick Sketch Artist Name Role Phone PHYSICIAN, DEFAULT Unavailable Unavailable PHYSICIAN, DEFAULT Unavailable ALVIN Rivero Unavailable Alvin Rivero DO Primary Care Provider DR ALVIN CONTRERAS Primary Care Unavailable HANNA GUPTA Admitting Unavailable HANNA GUPTA Attending Unavailable CANDY, DR TIFFANY Elizondo Consulting Unavailable HANNA GUPTA Consulting Unavailable DREA LINO Admitting Unavailable DREA LINO Attending Unavailable BEN, DR QUINTEROS Primary Care Unavailable DREA ILNO Consulting Unavailable BEN, DR QUINTEROS Admitting Unavailable BEN, DR QUINTEROS Attending Unavailable BEN, DR QUINTEROS Primary Care Unavailable BEN, DR QUINTEROS Consulting Unavailable Alvin Contreras DO Primary Care Provider HARESH PINEDA Attending Unavailable HARESH PINEDA Referring Unavailable ALVIN CONTRERAS Primary Care Unavailable HARESH PINEDA W Referring Unavailable HARESH PINEDA W Attending Unavailable ALVIN CONTRERAS Primary Care Unavailable JR. PHELPS GEORGE C Attending Unavaila ble Alvin Contreras Unavailable LYDIA JENKINS Attending Unavailable DREA LINO Attending Unavailable DREA LINO Attending Unavailable Allergies Allergy Classification Reported Allergen(s) Allergy Type Date of Onset Reaction(s) Facility (2 sources) meperidine Drug Allergy 4 [facility] (5 sources) Penicillins; Translations: [PENICILLINS] Drug allergy (disorder) 2 AOF [facility] (4 sources) Penicillins Drug Allergy 4 Hives [facility] (6 sources) Insects Extract; Translations: [INSECTS EXTRACT] Drug Allergy 1 Other: See Comments [facility] (2 sources) atorvastatin Drug Allergy [email or web address] Other (2 sources) Penicillin Drug Allergy [email or web address] Other (2 sources) Substance with penicillin structure and antibacterial mechanism of action (substance) Drug allergy [email or web address] Other (1 source) carvedilol; Translations: [CARVEDILOL] Drug Allergy 3 [facility] (1 source) Meperidine; Translations: [MEPERIDINE] Drug Allergy 8 [facility] (1 source) Metoprolol; Translations: [METOPROLOL] Drug Allergy 3 [facility] (1 source) nebivolol; Translations: [NEBIVOLOL] Drug Allergy 3 [facility] Medications Current Medications Medication Drug Class(es) Dates Sig (Normalized) Sig (Original) amLODIPine 10 mg oral tablet (6 sources) Dihydropyridine Calcium Channel Lisa Start: 11-21-2020 take 1 tablet by mouth once daily amLODIPine Besylate 10MG amLODIPine Besylate 10MG, 1 (one) Tablet Tablet Tablet Tablet daily # 0, 11/21/2020, No Refill. Active Oral daily *Pick strength-form from EXTR[facility] for eRX* Nov, Active Start: 08-02-2018 take 4 tablets by [facility] twice daily amLODIPine (NORVASC) 2.5 mg tablet Take 10 mg by mouth twice daily. 3 08/02/2018 Active Comment on above: Take 10 mg by mouth twice daily. amoxicillin 875 mg oral tablet (2 sources) Penicillin-class Antibacterial Start: 04-04-20 take 1 tablet by mouth twice daily Amoxicillin 875 MG amoxicillin 875mg, 1 (one) tablet two times daily # 10, 04/04/2022, No Refill. Active Oral two times daily for 5 Mar, Active baclofen 10 mg oral tablet (2 sources) gamma-Aminobutyric Acid-ergic Agonist take 1 tablet by mouth once daily at bedtime Baclofen 10 MG TAKE 1 TABLET BY MOUTH AT BEDTIME EVERY NIGHT for 90 Active flecainide acetate 100 mg oral tablet (5 sources) Antiarrhythmic Start: 04-04-20 22 Flecainide Acetate 100MG Flecainide Acetate( 100MG Oral 1 two times daily ) Active -Hx Entry Oral two times daily *Pick strength-form from EXTRABANCA for eRX* Mar, Active Start: 10-08-2021 flecainide (TA MBOCOR) 100 mg tablet Losartan Potassium-HCTZ 100-25MG (2 sources) Start: 04-04-2022 Losartan Potas sium-HCTZ 100-25MG Losartan Potassium-HCTZ( 100-25MG Oral ) Active -Hx Entry Oral *Pick strength-form from EXTRABANCA for eRX* Mar, Active Completed/Discontinued Medications Medication [...] Episodic/Chronic Cancer of bone and connective tissue (13 sources) Chondrosarcoma; 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, unspecified] Onset: 08-20-2017 Chronic Cardiac dysrhythmias (18 sources) Paroxysmal atrial fibrillation; Translations: [Paroxysmal atrial fibrillation] Onset: 08-24-2017 08-24-2017 Chronic Deficiency and other anemia (1 source) Anemia, unspecified Episodic Disorders of lipid metabolism (8 sources) Familial hypercholesterolemia ; Translations: [Pure hypercholesterolemia ] Onset: 02-07-2022 Chronic Essential hypertension (7 sources) Essential hypertension; Translations: [Essential (primary) hypertension] Onset: 08-24-2017 08-24-2017 Chronic Hyperplasia of prostate (2 sources) Lower urinary tract symptoms due to benign prostatic hypertrophy; Translations: [Benign prostatic hyperplasia with lower urinary tract symptoms] Chronic Osteoarthritis (2 sources) Localized, primary osteoarthritis of the shoulder region; Translations: [Primary osteoarthritis, left shoulder] Chronic Other endocrine disorders (2 sources) Adrenal mass; Translations: [Other specified disorders of [...] 06-30-2019 06-30-2019 Chronic Phlebitis; thrombophlebitis and thromboembolism (2 sources) H/O: Deep vein thrombosis; Translations: [Personal history of other venous thrombosis and embolism] Episodic Residual codes; unclassified (4 sources) Obstructive sleep apnea syndrome; Translations: [Obstructive sleep apnea (adult) (pediatric)] Onset: 08-24-2017 08-24-2017 Chronic Spondylosis; intervertebral disc disorders; other back problems (2 sources) Lumbar spondylosis; Translations: [Spondylosis without myelopathy or radiculopathy, lumbar region] Chronic Past or Other Problems Problem Classification Problem Date Documented Da te Episodic/Chronic Acquired foot deformities (4 sources) Right foot drop; Translations: [Foot drop, right foot] Onset: 06-30-2019 06-30-2019 Episodic Cardiac dysrhythmias (5 sources) Palpitations; Translations: [Palpitations] Onset: 06-06-2022 Episodic Other aftercare (1 source) Other hand sprayer (current) drug therapy; 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] Onset: 02-12-2022 Episodic Other [...] Range Facility Orders Onlyon 05-29-2023 Orders Only [id number] Lucinda Sharma 1950 M Date Provider Department Center 05/29/2023 [id number] CARLOS COOK Family History Problem Relation Age of Onset Coronary artery disease Other Hypertension Other Family Status - Relation Status Age at Other Normal [facility] CNOVon 01-13-2023 CNOV Office Visit (ORFWHP ) BANG SHARMA ([id number]) 1950 M Date Time Provider Department 01/13/23 2:30 PM HARESH PINEDA ORFWHP During your visit today, we recorded the following information about you: Haresh Pineda MD 01/13/2023 4:19 PM Signed Orthopaedic Surgery Follow-Up Clinic Note Surgery/Date: 08/27/2017 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 (CPT 31624 - 22) Placement of Prophylactic Carbon Fiber Tibial Nail, Right Tibia (CPT 70598) High Speed Ehsan and Adjuvant Treatment with 10% H202 (CPT 54841) Neruolysis and Dissection of Deep Peroneal Nerve (CPT 36318) Right Iliac Crest Marrow Aspiration/Dunlo ( CPT 95561) Diagnosis: Right Tibial Diaphysis Cartilage Lesion with [...] the date of the service which included [id number] patient care, completing clinical documentation, obtaining and/or [...] information added by medical student, resident, nurse, TRAVEL COUNSELOR/PA-C that I have placed my signature directly below I have verified and either instructed them to document in a scribe function or document appropriately in the chart during the patient visit. Haresh Beavers (more content not included)... Normal [facility] XR ANKLE 3V AP/LAT/OBL LTon 01-13-2023 XR ANKLE 3V AP/LAT/OBL LT * * *Final Report* * * DATE OF EXAM: Jan 13 2023 2:19PM AOX 5298 - XR ANKLE 3V AP/LAT/OBL LT / PROCEDURE REASON: multiple diagnoses * * * * Physician Interpretation * * * * HISTORY: Chondrosarcoma (HCC) TECHNOLOGIST PROVIDED HISTORY (if applicable): follow up right lower leg (accession [id number]), left ankle pain and popping sensation (accession [id number]) TECHNIQUE: XR TIBIA FIBULA 2V AP/LAT RT, [...] SIGNIFICANT CHANGE. NO RADIOGRAPHIC SIGNS OF RECURRENCE. Rn Gastroenterology: BARBARA Transcribe Date/Time: Jan 13 2023 4:43P Dictated by : JULISA WEAVER MD This examination was interpreted and the report reviewed and electronically signed by: JULISA WEAVER MD on Jan 13 2023 4:53PM EST [id number] Normal [facility] XR CHEST 2V FRONTAL/LATon XR CHEST 2V [...] tissues: Spine degenerative changes IMPRESSION: See result Rn Gastroenterology: [facility] Transcribe Date/Time: Jan 15 2023 3:13P Dictated by : RIKKI PEDERSEN MD This examination was interpreted and the report reviewed and electronically signed by: RIKKI PEDERSEN MD on Jan 15 2023 3:14PM EST [id number] Normal [facility] XR TIBIA FIBULA 2V AP/LAT RT on [...] applicable): follow up right lower leg (accession [id number]), left ankle pain and popping sensation (accession [id number]) TECHNIQUE: XR TIBIA FIBULA 2V AP/LAT RT, [...] SIGNIFICANT CHANGE. NO RADIOGRAPHIC SIGNS OF RECURRENCE. Rn Gastroenterology: [facility] Transcribe Date/Time: Jan 13 2023 4:43P Dictated by : JULISA WEAVER MD This examination was interpreted and the report reviewed and electronically signed by: JULISA WEAVER MD on Jan 13 2023 4:53PM EST [id number] [facility] Office Visiton 12-16-2022 Follow-up visit [id number] Lucinda Sharma 1950 M Date Provider Department Center 12/16/2022 LYDIA MARQUEZ [facility] Family History Problem Relation Age of Onset Coronary artery disease Other Hypertension Other Family Status - Relation Status Age at Other Level of Service:72427 [place] OFFICE/OUTPATIENT ESTABLISHED HIGH MDM 40-54 MIN [facility] 3610-08-2022 36 We can try labetalol 100mg BID instead. If he is not able to tolerate labetalol please have him follow-up with Dr. Jenkins. Thanks! [facility] 36on 10-03-2022 36 The last telephone encounter you sent me 09/22/22 I had said switch coreg to nebivolol. [facility] 36 I thought we switche d him to nebivolol? [facility] 36on 09-21-2022 36 Can switch him to nebivolol 5mg daily. [facility] Orders Onlyon 09-19-2022 Orders Only [id number] Lucinda Sharma yuko Sow 1950 M Date Provider Department Center 09/19/2022 J CARLOS VICTOR CARD [facility] Family History Problem Relation Age of Onset Coronary artery disease Other Hypertension Other Family Status - Relation Status Age at Other [facility] 36on 2022 36 Hmm, I don't see whe re I discontinued it. Maybe his PCP did? Or did he get the impression that with starting carvedilol he was stopping the losartan? We can either have him resume the losartan or we can try to increase his carvedilol to 6.25mg BID. [facility] Office Visiton 07-09-2022 Follow-up visit [id number] Lucinda Sharma yuko Sow 1950 M Date Provider Department Center 07/09/2022 DREA STOVALL CARD [facility] Family History Problem Relation Age of Onset Coronary artery disease Other Hypertension Other Family Status - Relation Status Age at Other Level of Service:44950 [place] OFFICE/OUTPATIENT ESTABLISHED MOD MDM 30-39 MIN Reason for Visit and Comments: Atrial Fibrillation [80] Palpitations [605152] [facility] FLECAINEon 06-24-2022 FLECAINIDE 0.39 ug/ml Normal 0.20 - 1.00 [facility] Comment on above: Result Comment: Flec ainide reported as flecainide acetate. The reference range also is defined as flecaininde acetate. This test was developed and its performance characteristics determined by [facility]. It has not been cleared or approved by the Food and Drug Administration. Performed By: #### T SH, BMP, LIPID, ALT #### [facility] [address] [address] [address] Fidel Paige CBC AUTO DIFFon 06-09-2022 BASO # 0.0 103/ul Normal 0.0-0.1 [facility] Comment on above: Performed By: #### C BC #### [facility] [address] [address] [address] Fidel Pagie Basophils/100 WBC (Bld) 0.6 % Normal 0.2-2.0 [facility] Comment on above: Performed By: #### C BC #### [facility] [address] [address] [address] Fidel Paige EO # 0.1 103/ul Normal 0.0-0.7 [facility] Comment on above: Performed By: #### C BC #### [facility] [address] [address] [address] Fidel Paige Eosinophils/100 WBC (Bld) 2.8 % Normal 0.9-7.0 [facility] Comment on above: Performed By: #### C BC #### [facility] [address] [place] [address] Dr. Fidel Paige Erythrocyte distribution width (RBC) [Ratio] 12.8 % Normal 11.0-15.0 [facility] Comment on above: Performed By: #### C BC #### [facility] [address] [place] [address] Dr. Fidel Paige Hematocrit (Bld) [Volume fraction] 41.9 % Critically low 42.0-54.0 [facility] Comment on above: Performed By: #### C BC #### [facility] [address] [place] [address] Dr. Fidel Paige Hemoglobin (Bld) [Mass/Vol] 14.1 g/dL Normal 14.0-18.0 [facility] Comment on above: Performed By: #### C BC #### [facility] [address] [place] [address] Dr. Fidel Paige IG # 0.01 10e3/ul Normal 0.00-0.03 [facility] Comment on above: Performed By: #### C BC #### [facility] [address] [address] [address] Fidel Paige IG % 0.2 % Normal 0.0-0.5 [facility] Comment on above: Performed By: #### C BC #### [facility] [address] [place] [address] Dr. Fidel Paige LYMPH # 1.4 103/ul Normal 1.2-3.8 [facility] Comment on above: Performed By: #### C BC #### [facility] [address] [place] [address] Dr. Fidel Paige Lymphocytes/100 WBC (Bld) 29.2 % Normal 20.5-60.0 [facility] Comment on above: Performed By: #### C BC #### [facility] [address] [place] [address] Dr. Fidel Paige MANUAL DIFF REQ NO Normal [facility] Comment on above: Performed By: #### C BC #### [facility] [address] [place] [address] Dr. Fidel Paige MCH (RBC) [Entitic mass] 31.3 pg Normal 25.9-34.0 [facility] Comment on above: Performed By: #### C BC #### [facility] [address] [place] [address] Dr. Fidel Paige MCHC (RBC) [Mass/Vol] 33.7 g/dL Normal 29.9-35.2 [facility] Comment on above: Performed By: #### C BC #### [facility] [address] [place] [address] Dr. Fidel Paige MCV (RBC) [Entitic vol] 92.9 fL Normal 80.0-94.0 [facility] Comment on above: Performed By: #### C BC #### [facility] [address] [place] [address] Dr. Fidel Paige MONO # 0.7 103/ul Normal 0.3-0.8 [facility] Comment on above: Performed By: #### C BC #### [facility] [address] [place] [address] Dr. Fidel Paige Monocytes/100 WBC (Bld) 13.4 % Critically high 1.7-12.0 [facility] Comment on above: Performed By: #### C BC #### [facility] [address] [place] [address] Dr. Fidel Paige NEUT # 2.7 103/ul Normal 1.4-6.5 [facility] Comment on above: Performed By: #### C BC #### [facility] [address] [place] [address] Dr. Fidel Paige Neutrophils/100 WBC (Bld) 53.8 % Normal 43.0-75.0 [facility] Comment on above: Performed By: #### C BC #### [facility] [address] [place] [address] Dr. Fidel Paige Platelet mean volume (Bld) [Entitic vol] 8.7 fL Critically low 9.5-13.5 [facility] Comment on above: Performed By: #### C BC #### [facility] [address] [place] [address] Dr. Fidel Paige PLT 278 103/ul Normal 150-450 [facility] Comment on above: Performed By: #### C BC #### [facility] [address] [place] [address] Dr. Fidel Paige RBC 4.51 106/ul Critically low 4.70-6.10 [facility] Comment on above: Performed By: #### C BC #### [facility] [address] [place] [address] Dr. Fidel Paige WBC 4.9 103/ul Normal 4.0-11.0 [facility] Comment on above: Performed By: #### C BC #### [facility] [address] [place] [address] Dr. Fidel Paige MAGNESIUMon 06-09-2022 Magnesium [Mass/Vol] 2.0 mg/dL Normal 1.8-2.4 [facility] Comment on above: Performed By: #### T SH, MG, BMP #### [facility] [address] [place] [address] Dr. Fidel Paige PROF CHEM 8 (BAS METB)on Anion gap [Moles/Vol] 8.2 mmol/L Normal [facility] Comment on above: Performed By: #### T SH, MG, BMP #### [facility] [address] [address] [address] Fidel Paige Calcium [Mass/Vol] 10.2 mg/dL Critically high 8.5-10.1 [facility] Comment on above: Performed By: #### T SH, MG, BMP #### [facility] [address] [address] [address] Fidel Paige Chloride [Moles/Vol] 105 mmol/L Normal 98-107 [facility] Comment on above: Performed By: #### T SH, MG, BMP #### [facility] [address] [place] [address] Dr. Fidel Paige CO2 [Moles/Vol] 29.6 mmol/L Normal 21.0-32.0 [facility] Comment on above: Performed By: #### T SH, MG, BMP #### [facility] [address] [place] [address] Dr. Fidel Paige Creatinine [Mass/Vol] 0.81 mg/dL Normal 0.70-1.30 [facility] Comment on above: Performed By: #### T SH, MG, BMP #### [facility] [address] [place] [address] Dr. Fidel Paige EGFR-AF ARMENIAN >60 Normal >=60 [facility] Comment on above: Performed By: #### T SH, MG, BMP #### [facility] [address] [place] [address] Dr. Fidel Paige EGFR-NON AF ARMENIAN >60 Normal >=60 [facility] Comment on above: Performed By: #### T SH, MG, BMP #### [facility] [address] [address] [address] Fidel Paige Glucose [Mass/Vol] 100 mg/dL Normal 74-106 [facility] Comment on above: Performed By: #### T SH, MG, BMP #### [facility] [address] [place] [address] Dr. Fidel Paige Potassium [Moles/Vol] 3.8 mmol/L Normal 3.5-5.1 [facility] Comment on above: Performed By: #### T SH, MG, BMP #### [facility] [address] [place] [address] Dr. Fidel Paige Sodium [Moles/Vol] 139 mmol/L Normal 136-145 [facility] Comment on above: Performed By: #### T SH, MG, BMP #### [facility] [address] [place] [address] Dr. Fidel Paige Urea nitrogen [Mass/Vol] 12.0 mg/dL Normal 7.0-18.0 [facility] Comment on above: Performed By: #### T SH, MG, BMP #### [facility] [address] [place] [address] Dr. Fidel Paige Urea nitrogen/Creatinin e [Mass ratio] 14.8 mg/mg Normal [facility] Comment on above: Performed By: #### T BEATRIS, MG, BMP #### [facility] [address] [place] [address] Dr. Fidel Paige TSHon 06-09-2022 TSH 0.891 uIU/mL Normal 0.358-3.740 [facility] Comment on above: Performed By: #### T SH, MG, BMP #### [facility] [address] [place] [address] Dr. Fidel Paige Office Visiton 06-06-2022 Follow-up visit [id number] Lucinda Sharma 1950 M Date Provider Department Center 06/06/2022 DREA STOVALL [facility] Family History Problem Relation Age of Onset Coronary artery disease Other Hypertension Other Family Status - Relation Status Age at Other Level of Service:45893 [place] OFFICE/OUTPATIENT ESTABLISHED MOD MDM 30-39 MIN Reason for Visit and Comments: Atrial Fibrillation [80] Palpitations [907570] Hypertension [313832] [facility] 36on 06-04-2022 36 Pt states he does no t take metoprolol as it dropped his bp. BP now is 137/72 55 I did make him an appt with you on the . [facility] 36 lm Normal [facility] 36on 06-03-2022 36 Pt said palpitations are all day does get SOB when he sleeps on right side, they go away Normal [facility] 36 Pt said palpitations are all day does get SOB when he sleeps on right side, they go away Normal [facility] CBC AUTO DIFFon 02-07-2022 BASO # 0.0 103/ul Normal 0.0-0.1 [facility] Comment on above: Performed By: #### T SH, BMP, LIPID, ALT #### [facility] [address] [address] [address] Fidel Paige Basophils/100 WBC (Bld) 0.3 % Normal 0.2-2.0 [facility] Comment on above: Performed By: #### T SH, BMP, LIPID, ALT #### [facility] [address] [place] [address] Dr. Fidel Paige EO # 0.1 103/ul Normal 0.0-0.7 [facility] Comment on above: Performed By: #### T SH, BMP, LIPID, ALT #### [facility] [address] [place] [address] Dr. Fidel Paige Eosinophils/100 WBC (Bld) 2.1 % Normal 0.9-7.0 [facility] Comment on above: Performed By: #### T SH, BMP, LIPID, ALT #### [facility] [address] [place] [address] Dr. Fidel Paige Erythrocyte distribution width (RBC) [Ratio] 13.1 % Normal 11.0-15.0 [facility] Comment on above: Performed By: #### T SH, BMP, LIPID, ALT #### [facility] [address] [place] [address] Dr. Fidel Paige Hematocrit (Bld) [Volume fraction] 45.2 % Normal 42.0-54.0 [facility] Comment on above: Performed By: #### T SH, BMP, LIPID, ALT #### [facility] [address] [place] [address] Dr. Fidel Paige Hemoglobin (Bld) [Mass/Vol] 14.8 g/dL Normal 14.0-18.0 [facility] Comment on above: Performed By: #### T SH, BMP, LIPID, ALT #### [facility] [address] [place] [address] Dr. Fidel Paige IG # 0.02 10e3/ul Normal 0.00-0.03 [facility] Comment on above: Performed By: #### T SH, BMP, LIPID, ALT #### [facility] [address] [place] [address] Dr. Fidel Paige IG % 0.3 % Normal 0.0-0.5 [facility] Comment on above: Performed By: #### T SH, BMP, LIPID, ALT #### [facility] [address] [place] [address] Dr. Fidel Paige LYMPH # 1.4 103/ul Normal 1.2-3.8 [facility] Comment on above: Performed By: #### T SH, BMP, LIPID, ALT #### [facility] [address] [place] [address] Dr. Fidel Paige Lymphocytes/100 WBC (Bld) 23.2 % Normal 20.5-60.0 [facility] Comment on above: Performed By: #### T SH, BMP, LIPID, ALT #### [facility] [address] [place] [address] Dr. Fidel Paige MANUAL DIFF REQ NO Normal [facility] Comment on above: Performed By: #### T SH, BMP, LIPID, ALT #### [facility] [address] [place] [address] Dr. Fidel Paige MCH (RBC) [Entitic mass] 31.6 pg Normal 25.9-34.0 [facility] Comment on above: Performed By: #### T SH, BMP, LIPID, ALT #### [facility] [address] [place] [address] Dr. Fidel Paige MCHC (RBC) [Mass/Vol] 32.7 g/dL Normal 29.9-35.2 [facility] Comment on above: Performed By: #### T SH, BMP, LIPID, ALT #### [facility] [address] [place] [address] Dr. Fidel Paige MCV (RBC) [Entitic vol] 96.6 fL Critically high 80.0-94.0 [facility] Comment on above: Performed By: #### T SH, BMP, LIPID, ALT #### [facility] [address] [place] [address] Dr. Fidel Paige MONO # 0.7 103/ul Normal 0.3-0.8 [facility] Comment on above: Performed By: #### T SH, BMP, LIPID, ALT #### [facility] [address] [place] [address] Dr. Fidel Paige Monocytes/100 WBC (Bld) 11.7 % Normal 1.7-12.0 [facility] Comment on above: Performed By: #### T SH, BMP, LIPID, ALT #### [facility] [address] [place] [address] Dr. Fidel Paige NEUT # 3.6 103/ul Normal 1.4-6.5 [facility] Comment on above: Performed By: #### T SH, BMP, LIPID, ALT #### [facility] [address] [place] [address] Dr. Fidel Paige Neutrophils/100 WBC (Bld) 62.4 % Normal 43.0-75.0 [facility] Comment on above: Performed By: #### T SH, BMP, LIPID, ALT #### [facility] [address] [place] [address] Dr. Fidel Paige Platelet mean volume (Bld) [Entitic vol] 8.8 fL Critically low 9.5-13.5 [facility] Comment on above: Performed By: #### T SH, BMP, LIPID, ALT #### [facility] [address] [place] [address] Dr. Fidel Paige PLT 283 103/ul Normal 150-450 [facility] Comment on above: Performed By: #### T SH, BMP, LIPID, ALT #### [facility] [address] [place] [address] Dr. Fidel Paige RBC 4.68 106/ul Critically low 4.70-6.10 [facility] Comment on above: Performed By: #### T SH, BMP, LIPID, ALT #### [facility] [address] [address] [address] Fidel Paige WBC 5.8 103/ul Normal 4.0-11.0 [facility] Comment on above: Performed By: #### T SH, BMP, LIPID, ALT #### [facility] [address] [address] [address] Fidel Paige LIPID PROFILEon 02-07-2022 CHOL-HDL RATIO NORM SEE BELOW Normal [facility] Comment on above: Result Comment: 3.3 - 4.4 LOW RISK 4.4 - 7.1 AVERAGE RISK 7.1 - 11.0 MODERATE RISK >11.0 HIGH RISK Performed By: #### T SH, BMP, LIPID, ALT #### [facility] [address] [address] [address] Fidel Paige Cholesterol [Mass/Vol] 191 mg/dL Normal <=200 [facility] Comment on above: Performed By: #### T SH, BMP, LIPID, ALT #### [facility] [address] [address] [address] Fidel Paige Cholesterol in HDL [Mass/Vol] 42 mg/dL Normal 40-60 [facility] Comment on above: Performed By: #### T SH, BMP, LIPID, ALT #### [facility] [address] [address] [address] Fidel Paige Cholesterol in LDL [Mass/Vol] 118.0 mg/dL Normal [facility] Comment on above: Performed By: #### T SH, BMP, LIPID, ALT #### [facility] [address] [address] [address] Fidel Paige Cholesterol.total/ Cholesterol in HDL [Mass ratio] 4.5 {ratio} Normal [facility] Comment on above: Performed By: #### T SH, BMP, LIPID, ALT #### [facility] [address] [address] [address] Fidel Paige HDL NORMAL > or = 60 mg/dl - LO W CARDIOVASCULAR RISK <40 mg/dl - HIGH CARDIOVASCULAR RISK Normal [facility] Comment on above: Performed By: #### T SH, BMP, LIPID, ALT #### [facility] [address] [address] [address] Fidel Paige LDL CALC NORMAL SEE BELOW Normal [facility] Comment on above: Result Comment: <100 mg/dl OPTIMAL 100 - 129 mg/dl NEAR OR ABOVE OPTIMAL 130 - 159 mg/dl BORDERLINE HIGH 160 - 189 mg/dl HIGH >190 mg/dl VERY HIGH Performed By: #### T SH, BMP, LIPID, ALT #### [facility] [address] [address] [address] Fidel Paige Triglyceride [Mass/Vol] 155 mg/dL Critically high <=150 [facility] Comment on above: Performed By: #### T SH, BMP, LIPID, ALT #### [facility] [address] [address] [address] Fidel Paige VLDL CALC 31.0 mg/dL Normal [facility] Comment on above: Performed By: #### T SH, BMP, LIPID, ALT #### [facility] [address] [address] [address] Fidel Paige PROF CHEM 8 (BAS METB)on Anion gap [Moles/Vol] 11.0 mmol/L Normal [facility] Comment on above: Performed By: #### T SH, BMP, LIPID, ALT #### [facility] [address] [address] [address] Fidel Paige Calcium [Mass/Vol] 10.1 mg/dL Normal 8.5-10.1 [facility] Comment on above: Performed By: #### T SH, BMP, LIPID, ALT #### [facility] [address] [address] [address] Fidel Paige Chloride [Moles/Vol] 105 mmol/L Normal 98-107 [facility] Comment on above: Performed By: #### T SH, BMP, LIPID, ALT #### [facility] [address] [address] [address] Fidel Paige CO2 [Moles/Vol] 29.0 mmol/L Normal 21.0-32.0 [facility] Comment on above: Performed By: #### T SH, BMP, LIPID, ALT #### [facility] [address] [address] [address] Fidel Paige Creatinine [Mass/Vol] 0.85 mg/dL Normal 0.70-1.30 [facility] Comment on above: Performed By: #### T SH, BMP, LIPID, ALT #### [facility] [address] [place] [address] Dr. Fidel Paige EGFR-AF ARMENIAN >60 Normal >=60 [facility] Comment on above: Performed By: #### T SH, BMP, LIPID, ALT #### [facility] [address] [place] [address] Dr. Fidel Paige EGFR-NON AF ARMENIAN >60 Normal >=60 [facility] Comment on above: Performed By: #### T SH, BMP, LIPID, ALT #### [facility] [address] [place] [address] Dr. Fidel Paige Glucose [Mass/Vol] 101 mg/dL Normal 74-106 [facility] Comment on above: Performed By: #### T SH, BMP, LIPID, ALT #### [facility] [address] [place] [address] Dr. Fidel Paige Potassium [Moles/Vol] 4.0 mmol/L Normal 3.5-5.1 [facility] Comment on above: Performed By: #### T SH, BMP, LIPID, ALT #### [facility] [address] [place] [address] Dr. Fidel Paige Sodium [Moles/Vol] 141 mmol/L Normal 136-145 [facility] Comment on above: Performed By: #### T SH, BMP, LIPID, ALT #### [facility] [address] [place] [address] Dr. Fidel Paige Urea nitrogen [Mass/Vol] 13.0 mg/dL Normal 7.0-18.0 [facility] Comment on above: Performed By: #### T SH, BMP, LIPID, ALT #### [facility] [address] [place], [place] [address] Dr. Fidel Paige Urea nitrogen/Creatinin e [Mass ratio] 15.3 mg/mg Normal [facility] Comment on above: Performed By: #### T SH, BMP, LIPID, ALT #### [facility] [address] [place], [place] [address] Dr. Fidel Paige SGPTon 02-07-2022 ALT [Catalytic activity/Vol] 26 U/L Normal 16-63 [facility] Comment on above: Performed By: #### T SH, BMP, LIPID, ALT #### [facility] [address] [place], [place] [address] Dr. Fidel Paige TSHon 02-07-2022 TSH 0.856 uIU/mL Normal 0.358-3.740 [facility] Comment on above: Performed By: #### T SH, BMP, LIPID, ALT #### [facility] [address] [address] [address] Fidel Paige XR CHEST 2V FRONTAL/LATon [facility] US VENOUS DOPPLER L Cristian US [...] by: TIFFANY GUPTA Date: 2021-10-10 12:51 Normal [facility] Encounters Encounter Date Encounter Type Care Provider Facility Start: 06-04-2023 End: 06-04-2023 ambulatory Alvin Contreras Other [email or web address] Other Start: 06-04-2023 Encounter by sergio Contreras [facility] Start: 05-29-2023 End: 05-29-2023 ambulatory Alvin Contrears Other [facility] [employer] Other Start: 05-29-2023 Telephone encounter Alvin Contreras [facility] Start: 03-30-2023 End: 03-30-2023 ambulatory NIKKI MITCHELL Not Available Start: 01-13-2023 End: 01-14-2023 ambulatory HARESH PINEDA Facility:[facility] Start: 01-12-2023 Orders Only Haresh Pineda MD Work Phone: Orthopaedics Comment on above: Chronic pain of left ankle (Primary Dx) Start: 12-16-2022 End: 12-16-2022 ambulatory [facility] Start: 11-17-2022 Orders Only Haresh Pineda MD Work Phone: Orthopaedics Comment on above: Chondrosarcoma (HCC) (Primary Dx) Start: 07-09-2022 End: 07-09-2022 ambulatory [facility] Start: 06-09-2022 End: 06-10-2022 ambulatory [facility] Facility:[facility] Start: 06-06-2022 End: 06-06-2022 ambulatory [facility] Start: 02-07-2022 End: 02-08-[address] ALVIN [...] 11-09-2017 End: 11-10-2017 Patient encounter DEFAULT PHYSICIAN Facility:[facility] Procedures Date Procedure Procedure Detail Performing Clinician Start: 02-07-[address] RING IN BEN Comment on above: Performed By: #### T SH, BMP, LIPID, ALT #### [facility] [address] [address] [address] Fidel Paige Start: 11-05-2021 Radiologic exam ches t 2 views Eric Taylor APRN.CNP Work Phone: Start: 11-05-2021 Radiologic examinati on tibia & fibula 2 views Eric Taylor APRN.CNP Work Phone: Start: 06-30-2019 Adult depression scr eening assessment Haresh Pineda MD Work Phone: Plan of Treatment Date Care Activity Detail Author Start: 12-19-2022 Influenza vaccination C [facility] Start: 11-05-2022 End: 12-05-2022 Radiologic exam chest 2 views XR CHEST 2V FRONTAL/LAT Radiology Routine Chondrosarcoma (HCC) Expected: 11/05/2022 (Approximate), Expires: 12/05/2022 [facility] Work Phone: Comment on above: Expected: 11/05/2022 (Approximate), Expires: 12/05/2022 Start: 11-05-2022 End: 12-05-2022 XR TIBIA FIBULA 2V AP/LAT RIGHT XR TIBIA FIBULA 2V AP/LAT RIGHT Radiology Routine Chondrosarcoma (HCC) Expected: 11/05/2022 (Approximate), Expires: 12/05/2022 [facility] Work Phone: Comment on above: Expected: 11/05/2022 (Approximate), Expires: 12/05/2022 Start: 10-25-2022 DIABETES SCREEN DIABETES SCREEN [facility] Start: 10-25-2022 Diabetes Screening Diabetes Screenin g [facility] Start: 04-20-2022 ADVANCE DIRECTIVE DISCUSSION ADVANCE DIRECTIVE DISCUSSION [facility] Start: 04-20-2022 DEPRESSION ASSESSMENT DEPRESSION ASS ESSMENT [facility] Start: 12-19-2021 Influenza vaccination INFLUENZA (#1) [facility] Start: 11-18-2021 COVID-19 VACCINE (5 - Pfizer series) COVID-19 VACCINE (5 - Pfizer series) [facility] Start: 04-20-2021 ADVANCE DIRECTIVE DISCUSSION ADVANCE DIRECTIVE DISCUSSION [facility] Start: 06-29-2020 Adult depression screening assessment DEPRESSION SCREENING [facility] Start: 2014 Pneumococcal Vaccine : 65+ (1 - PCV) Pneumococcal Vaccine: 65+ (1 - PCV) [facility] Start: 2014 PNEUMOCOCCAL: 65+ (1 - PCV) PNEUMOCOCCAL: 65+ (1 - PCV) [facility] Start: 09-19-1999 SHINGRIX VACCINE (1 of 2) SHINGRIX VACCINE (1 of 2) [facility] Start: 1994 COLOGUARD (FIT-DNA) COLOGUARD (FIT-D NA) [facility] Start: 1994 Colonoscopy COLONOSCOPY [facility] Start: 1994 COLORECTAL CANCER SCREENING COLORECTAL CANCER SCREENING [facility] Start: [address] COLONOGRAPHY [facility] Start: 1994 FECAL OCCULT BLOOD FECAL OCCULT BLOO D [facility] Start: 1994 SIGMOIDOSCOPY SIGMOIDOSCOPY [facility] Start: 1984 Lipid 1996 panel - Serum or Plasma Lipid Screening [facility] Start: 1984 LIPID SCREEN LIPID SCREEN [facility] Start: 1968 Urine microalbumin profile [facility] Start: 09-19-1967 ANNUAL PCP TEAM ROLLER MECHANIC LEE ANN DISEASE VISIT ANNUAL PCP TEAM CHRONIC DISEASE VISIT [facility] Start: 09-19-1967 BP CONTROLLED (<130/80) BP CONTROLLE D (<130/80) [facility] Start: 09-19-1967 HEPATITIS C SCREENING HEPATITIS C SC REENING [facility] End: 12-17-2023 Radiologic exam chest 2 views XR CHEST 2V FRONTAL/LAT Radiology Routine Chondrosarcoma (HCC) 1 Occurrences starting 11/17/2022 until 12/17/2023 [facility] Work Phone: Comment on above: 1 Occurrences starti ng 11/17/2022 until 12/17/2023 End: 02-11-2024 XR ANKLE GENERAL 3V AP/LAT/OBL LEFT XR ANKLE GENERAL 3V AP/LAT/OBL LEFT Radiology Routine Chronic pain of left ankle 1 Occurrences starting 01/12/2023 until 02/11/2024 [facility] Work Phone: Comment on above: 1 Occurrences starti ng 01/12/2023 until 02/11/2024 End: 12-17-2023 XR TIBIA FIBULA 2V AP/LAT RIGHT XR TIBIA FIBULA 2V AP/LAT RIGHT Radiology Routine Chondrosarcoma (HCC) 1 Occurrences starting 11/17/2022 until 12/17/2023 [facility] Work Phone: Comment on above: 1 Occurrences starti ng 11/17/2022 until 12/17/2023 XR TIBIA FIBULA 2V AP/LAT RT XR TIBIA FIBULA 2V AP/LAT RT Radiology Routine Chondrosarcoma (HCC) 11/05/2021 2:50 PM EDT [facility] Work Phone: [facility] Immunizations Immunization Date Immunization Notes Care Provider Omar tilley 02-10-2022 influenza virus vaccine, split virus (incl. purified surface antigen) Alvin Contreras Other [email or web address] Other 05-29-2020 COVID-19 Vaccine Pfi zer - Documentation Purposes Only Alvin Contreras Other [email or web address] Other 10-02-2016 diphtheria, tetanus toxoids and acellular pertussis vaccine, unspecified formulation Alvin Contreras Other [email or web address] Other 03-23-2016 pneumococcal conjuga te vaccine, 13 valent Alvin Contreras Other [email or web address] Other 03-01-2009 pneumococcal polysaccharide vaccine, 23 valent Alvin Contreras Other [email or web address] Other 02-25-2006 diphtheria, tetanus toxoids and acellular pertussis vaccine, unspecified formulation Alvin Contreras Other [email or web address] Other Payers Date Payer Category Payer Medicare MEDICARE MEDICAR E A AND B [id number] 2014-Present [phone] [place] [address] Medicare [id number] 2014 Medicare MEDICARE RAILROA D MEDICARE RAILROAD PB ONLY [id number] 2014-Present [phone] [address] [address] [place] [address] Medicare [id number] 2014 Unknown 2014 Unknown [employer] 2N D [id number] 2014-Present [phone] [address] [address] [place] [address] Indemnity [id number] 2014 Unknown [id number] 1959 Medicare [id number] 1959 Unknown [id number] 1949 Unknown [id number] 3 1949 Unknown [id number] 3 1949 Unknown [id number] 3 1949 Unknown [id number] Social History Date Type Detail Facility [facility]: [facility] Start: 07-17-2017 Tobacco use and exposure Smoke less tobacco non-user [facility] Start: 1950 Sex Assigned At Male C [facility] Start: 10-26-2021 End: 11-05-2021 Exposure to SARS-CoV-2 (event) Not sure [facility] Start: 06-30-2019 End: 05-18-2022 History of Social function [facility] Start: 06-30-2019 End: 05-18-2022 Area Deprivation Index [facility] National Score (1-10 0), lower number is lower risk 60 [facility] Start: 11-23-2019 Sexual orientation Heterosexual (fin ding) [facility] Medical Equipment Procedure Code Equipment Code Equipment Origin al Text Equipment Identifier Dates Graft Enhance Demineralized Cortical Fiber Bone Allograft Dehydrate 2.5ml - [id number] Start: 08-27-2017 Graft Cancellous Chips Bone Void Freeze Dry 30ml (1.7-10mm) - [id number] Start: 08-27-2017 Graft Dbx Bone V oid Allograft Freeze Dried Putty 1ml - [id number] Start: 08-27-2017 Tibial Nail [id number] Start: [...] Assessment Notes May, Anemia (ICD-10 - D64.9) [email or web address] Other 09-26-2023 NoteHNO ID: [id number] Author: Keri Lopez RN Service: ? Author Type: Registered Nurse Type: Progress Notes Filed: 01/13/2023 4:19 PM Note Text: I served as a scribe during this office visit encounter. Keri Lopez [facility]09-26-2023 NoteHNO ID: [id number] Author: Ranjith Teixeira RT(Caro) Service: Radiology Author Type: Technologist Type: Progress [...] BY: RT Mariel(R) January 13, 2023 2:20 [facility]09-26-2023 NoteHNO ID: [id number] Author: Haresh Pineda MD Service: ? 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 (CPT 87405 - 22) Placement of Prophylactic Carbon Fiber Tibial Nail, Right Tibia (CPT 47676) High Speed Bradley and Adjuvant Treatment with 10% H202 (CPT 72492) Neruolysis and Dissection of Deep Peroneal Nerve (CPT 60647) Right Iliac Crest Marrow Aspiration/Dunlo ( CPT 30276) Diagnosis: Right Tibial Diaphysis Cartilage Lesion with [...] his last visit if no concerns. - [facility] Completed and Updated -- consent has been discussed in the past, but he has not signed. I will plan on re-approaching at his 5-yr anniverary. - No activity restrictions on my end Years post-op: ~5.5 years --> Plan to follow along low-grade chondrosarcoma guidelines I spent a total of 30 minutes on the date of the service which included [id number] patient care, completing clinical documentation, obtaining and/or [...] information added by medical student, resident, nurse, TRAVEL COUNSELOR/DEVAN that I have placed my signature directly below I have verified and either instructed them to document in a scribe function or document appropriately in the chart during the patient visit. Haresh Pineda MD player piano technician, [facility] Hospital[facility] Manager, Division of Musculoskeletal Oncology Co-Director of Sarcoma Care, [facility] Pager: [phone] (more content not included)...[id number]-29-2023 NoteUT Electrophysiology Consult Note Reason for visit: [...] who is here for A-fib follow up. Paient is currently maintained on amiodarone.He was on [...] This was followed up with [facility] with [facility] protocol which was negative for inducible arrhythmias [...] CVL report IMPRESSION: Successful direct-current cardioversion with episcopal of sinus rhythm from atrial fibrillation with no immediate complication. 03/22/12: EPS EP study by Dr. Carmen Flores on 03/22/2012 for evaluation of wide-complex tachycardia in the setting of normal ejection fraction revealed normal HV interval but no evidence of any AH jump suggestive of dual AV node physiology and no tachycardia was induced. This was followed up with [facility] with [facility] protocol which was negative for inducible arrhythmias [...] CATHETERIZATION CARDIOVERSION HAND SURGERY (more content not included)...[facility] 07-09-2022 NoteCardiovascular Medicine [facility] SUBJECTIVE Chief Complaint Patient presents with [...] This was followed up with [facility] with [facility] protocol which was negative for inducible arrhythmias [...] 2.59 m??? Medications: Curr (more content not included)...[facility]03-22-2023 NotePatient here for 1 mo follow up palpitations and PAF. Had labs 06/09/2022. He says palpitations and dizziness has resolved. Denies chest pain and SOB. Review of Systems Cardiovascular: Positive for leg swelling (intermittent, wears compression stockings prn). Musculoskeletal: Positive for arthritis, joint pain and neck pain. All other systems reviewed and are negative.[facility] 06-06-2022 NoteCardiovascular Medicine [facility] SUBJECTIVE Chief Complaint Patient presents with Atrial [...] who is here for A-fib follow up. Paient is currently maintained on amiodarone.He was on [...] This was followed up with [facility] with [facility] protocol which was negative for inducible arrhythmias [...] Constitutional: Appearance: Normal appearance. (more content not included)...[facility]02-17-2023 NotePatient here for 6 mo follow [...] pain. All other systems reviewed and are negative.[facility] 11-05-2021 History of Present illness Narrative* Haresh Pineda MD - 11/05/2021 5:19 PM EDT This note was created using NoteWriter. ISIAH SANCHEZ SF ORT MST FU Advanced: Did this patient have an adverse event since their last encounter?: No * Haresh Pineda MD - 11/05/2021 4:07 PM EDT Orthopaedic Surgery Follow-Up Clinic Note Surgery/Date: 08/27/2017 1. 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 (CPT 70864 - 22) 2. Placement of Prophylactic Carbon Fiber Tibial Nail, Right Tibia (CPT 08000) 3. High Speed Ehsan and Adjuvant Treatment with 10% H202 (CPT 90946) 4. Neruolysis and Dissection of Deep Peroneal Nerve (CPT 48122) 5. 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 Exam: RLE -- largely unchanged compared [...] the date of the service which included [id number] patient care, completing clinical documentation, obtaining and/or reviewing separately obtained history, performing a medically appropriate examination, counseling and educating the patient/family/caregiver, ordering medications, tests, or procedures, independently interpreting results (not separately reported) and communicating results to the patient/family/caregiver. Any information added by medical student, resident, nurse, TRAVEL COUNSELOR/PAJayC that I have placed my signature directly below I have verified and either instructed them to document in a scribe function or document appropriately in the chart during the patient visit. Haresh Pineda MD player piano technician, [facility] Hospital[facility] Manager, Division of Musculoskeletal Oncology Co-Director of [facility], [facility] Pager: [phone] November 05, 2021 5:18 PM documented in [facility]Bar[facility]07-[facility]-2022 History of Present illness Narrative* RT [...] 05, 2021 2:49 PM documented in this encounterBar[facility]06-23-2022 NotePROCEDURE: XR FOREARM LT 2 VIEWS [...] Electronically authenticated by: TIFFANY GUPTA Date: 2021-10-10 12:28[facility] 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, site unspecified [facility] 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, site unspecified 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, site unspecified documented [facility] this encounter [facility]* Diagnosis Chronic pain of left ankle- Primary documented in this encounter [facility]No [facility] [employer] Other History general Narrative - Reported* Type Description Date [...] insertion 2018 Hospitalization History see surgical hx [facility] [employer] Other Reason for referral (narrative)* Diagnostic Procedure Only (Routine) - Pending Review Specialty Diagnoses / Procedures Referred By Tigre kilpatrick Referred To Contact XR IMAGING Diagnoses Chondrosarcoma (HCC) Procedures XR TIBIA FIBULA 2V AP/LAT RIGHT RADIOLOGIC EXAMINATION TIBIA & FIBULA 2 VIEWS Haresh Pineda MD [address] [place] [place] [address] Xr Imaging Referral ID Status Reason Start Date Expiration Date Visits Requested Visits Authorized [id number] Pending Review Auto-Generat ed Referral 11/05/2022 12/05/2022 1 1 [facility] for referral (narrative)* Diagnostic Procedure Only (Routine) - Pending Review Specialty Diagnoses / Procedures Referred By Tigre kilpatrick Referred To Contact XR IMAGING Diagnoses Chondrosarcoma (HCC) Procedures XR TIBIA FIBULA 2V AP/LAT RIGHT RADIOLOGIC EXAMINATION TIBIA & FIBULA 2 VIEWS Haresh Pineda MD [address] [email or web address] [address] Xr Imaging Referral ID Status Reason Start Date Expiration Date Visits Requested Visits Authorized [id number] Pending Review Auto-Generat ed Referral 11/17/2022 12/17/2023 1 1 [facility] ([facility]ative)* Diagnostic Procedure Only (Routine) - Authorized Specialty Diagnoses / Procedures Referred By Tigre kilpatrick Referred To Contact XR IMAGING Diagnoses Chronic pain of left ankle Procedures XR ANKLE GENERAL 3V AP/LAT/OBL LEFT RADEX ANKLE COMPLETE MINIMUM 3 VIEWS Valeri Quintero PA-C [address] [id number] Xr Imaging [place] [address] Referral ID Status Reason Start Date Expiration Date Visits Requested Visits Authorized [id number] Authorized Auto-Generat ed Referral 01/12/2023 02/11/2024 1 1 [facility] Summary Purpose Family History No Family History Records FoundNo Family History Records FoundNo Family History Records FoundNo Family History Records FoundNo Family History Records FoundNo Family History Records Found Advance Directives Documents on File Type Date Recorded Patient Business Administrator Expl anation Advance Directive(s) Advance Directive(s) 09/02/2018 11:24 AM Advance Directive(s) 08/26/2018 2:02 PM Advance Directive(s) 08/24/2017 2:28 PM Documents on File Type Date Recorded Patient Business Administrator Expl anation Advance Directive(s) Advance Directive(s) 09/02/2018 11:24 AM Advance Directive(s) 08/26/2018 2:02 PM Advance Directive(s) 08/24/2017 2:28 PM Documents on File Type Date Recorded Patient Business Administrator Expl anation Advance Directive(s) 08/24/2017 2:28 PM Additional Source Comments (unrecognized sect ion and content) No Status Records FoundNo Status Records FoundNo Status Records FoundNo Status Records FoundNo Status Records FoundNo Status Records Found INFORMATION SOURCE (unrecogn ized section and content) DATE CREATED AUTHOR 11/10/2017 [facility] [place] DATE CREATED AUTHOR AUTHOR'S ORGANIZ ATION 06/26/2022 [facility] DATE CREATED AUTHOR AUTHOR'S ORGANIZ ATION 01/21/2023 [facility] DATE CREATED AUTHOR AUTHOR'S ORGANIZ ATION 01/21/2023 [facility] DATE CREATED AUTHOR AUTHOR'S ORGANASHLEY ATION 03/31/2023 [facility] EPIC DATE CREATED AUTHOR AUTHOR'S ORGANIZ ATION 06/01/2023 [facility] Source Comments (unrecognize d section and content) In the event this informatio n is protected by the Federal Confidentiality of Alcohol and Drug Abuse Patient Records regulations: The Federal rules restrict any use of the information to criminally investigate or prosecute any alcohol or drug abuse patient.[facility] Hospital[facility] the event this information is protected by the Federal Confidentiality of Alcohol and Drug Abuse Patient Records regulations: The Federal rules restrict any use of the information to criminally investigate or prosecute any alcohol or drug abuse patient.[facility] HospitalIn the event this information is protected by the Federal Confidentiality of Alcohol and Drug Abuse Patient Records regulations: The Federal rules restrict any use of the information to criminally investigate or prosecute any alcohol or drug abuse patient.[facility] HospitalIn the event this information is protected by the Federal Confidentiality of Alcohol and Drug Abuse Patient Records regulations: The Federal rules restrict any use of the information to criminally investigate or prosecute any alcohol or drug abuse patient.[facility] Reason for Visit (unrecogniz ed section and content) Update Demographics - Person al Info Reason Comments Follow Up Reason Comments Radio Gen A21 Care Teams (unrecognized sec tion and content) Quick Sketch Artist Relationship Specialty Start Date End Date Ben Alvin Sow, DO [address] [place] [address] PCP - General Internal Medicine 06/19/17 Quick Sketch Artist Relationship Specialty Start Date End Date Alvin Contreras, DO [address], [place] [id number] PCP - General Internal Medicine 06/19/17 Quick Sketch Artist Relationship Specialty Start Date End Date Alvin Contreras Juanjose, DO [address] [place] [address] PCP - General Internal Medicine 06/19/17 FOR [...] BE BASED ON THE PRIMARY CLINICAL RECORDS. [facility] provides no warranty or guarantee of the accuracy or completeness of information in this document.
== END 2023-07-13 19:58 | disposition home or self-care (01) ==
LOC: SLEEP 19:57
PROVIDERS: PCP Internal Medicine; Visit Provider Internal Medicine
DX: G47.33 Obstructive sleep apnea (adult) (pediatric) (principal)
CPT/HCPCS: 95811

== ENCOUNTER 2023-07-16 08:36 | Outpatient (OUT) | payer MEDICARE, OTHER, SELFPAY ==
[2023-07-16 08:44] LABS: Hemoglobin 14.2 g/dL (14.0-18.0)
--- OUTSIDE RECORDS SUMMARY | 2023-07-16 08:47 | XMS_ITS | CCD ---
Author Organization [facility] Care Team Providers Care Support Services Specialist Name Role Phone PHYSICIAN, DEFAULT Unavailable Unavailable PHYSICIAN, DEFAULT Unavailable ALVIN Rivero Unavailable Alvin Rivero DO Primary Care Provider DR ALVIN CONTRERAS Primary Care Unavailable HANNA GUPTA Admitting Unavailable HANNA GUPTA Attending Unavailable CANDY, DR TIFFANY Elizondo Consulting Unavailable HANNA GUPTA Consulting Unavailable DREA LINO Admitting Unavailable DREA LINO Attending Unavailable BEN, DR QUINTEROS Primary Care Unavailable DREA LINO Consulting Unavailable BEN, DR QUINTEROS Admitting Unavailable [...] (2 sources) meperidine Drug Allergy 4 [facility] Repository (5 sources) Penicillins; Translations: [PENICILLINS] Drug allergy (disorder) 2 AOF [facility] Repository (4 sources) Penicillins Drug Allergy 4 Hives [facility] (6 sources) Insects Extract; Translations: [INSECTS EXTRACT] Drug Allergy 1 Other: See Comments [facility] (2 sources) atorvastatin Drug Allergy Unknown [email or web address] Other (2 sources) Penicillin Drug Allergy Unknown [email or web address] Other (2 sources) Substance with penicillin structure and antibacterial mechanism of action (substance) Drug allergy Unknown [email or web address] Other (1 source) carvedilol; Translations: [CARVEDILOL] Drug Allergy 3 [facility] Repository (1 source) Meperidine; Translations: [MEPERIDINE] Drug Allergy 8 [facility] Repository (1 source) Metoprolol; Translations: [METOPROLOL] Drug Allergy 3 [facility] Repository (1 source) nebivolol; Translations: [NEBIVOLOL] Drug Allergy 3 [facility] Repository Medications Current Medications Medication Drug Class(es) Dates Sig (Normalized) Sig (Original) amLODIPine 10 mg oral tablet (6 sources) Dihydropyridine Calcium Channel Lisa Start: 11-21-2020 take 1 tablet by mouth once daily amLODIPine Besylate 10MG amLODIPine Besylate 10MG, 1 (one) Tablet Tablet Tablet Tablet daily # 0, 11/21/2020, No Refill. Active Oral daily *Pick strength-form from [email or web address] for eRX* Nov, Active Start: 08-02-2018 take 4 tablets by [facility] twice daily amLODIPine (NORVASC) 2.5 mg tablet [...] Oral two times daily *Pick strength-form from [email or web address] for eRX* Mar, Active Start: 10-08-2021 flecainide (TA MBOCOR) 100 mg tablet Losartan Potassium-HCTZ 100-25MG (2 sources) Start: 04-04-2022 Losartan Potas sium-HCTZ 100-25MG Losartan Potassium-HCTZ( 100-25MG Oral ) Active -Hx Entry Oral *Pick strength-form from [email or web address] for eRX* Mar, Active Completed/Discontinued Medications Medication [...] 06-06-2022 Episodic Other aftercare (1 source) 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; 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] Onset: 02-12-2022 Episodic Other [...] Range Facility Orders Onlyon 05-29-2023 Orders Only [id number] Lucinda Sharma 1950 M Date Provider Department Center 05/29/2023 [id number] CARLOS COOK Family History Problem Relation Age of Onset Coronary artery disease Other Hypertension Other Family Status - Relation Status Age at Other Normal [facility] CNOVon 01-13-2023 CNOV Office Visit (ORFWHP ) BANG SHARMA ([id number]) 1950 M Date Time Provider Department 01/13/23 2:30 PM HARESH PINEDA ORFWHP During your visit today, we recorded the following information about you: Haresh Pineda MD 01/13/2023 4:19 PM Signed Orthopaedic Surgery Follow-Up Clinic Note Surgery/Date: 08/27/2017 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 (CPT 19143 - 22) Placement of Prophylactic Carbon Fiber Tibial Nail, Right Tibia (CPT 05298) High Speed Ehsan and Adjuvant Treatment with 10% H202 (CPT 23094) Neruolysis and Dissection of Deep Peroneal Nerve (CPT 07960) Right Iliac Crest Marrow Aspiration/Ashley ( CPT 50853) Diagnosis: Right Tibial Diaphysis Cartilage Lesion with [...] the date of the service which included [id number] patient care, completing clinical documentation, obtaining and/or [...] information added by medical student, resident, nurse, HAND ALTERATIONS TAILOR/PA-C that I have placed my signature directly below I have verified and either instructed them to document in a scribe function or document appropriately in the chart during the patient visit. Haresh Beavers (more content not included)... Normal [facility] XR ANKLE 3V AP/LAT/OBL LTon 01-13-2023 XR ANKLE 3V AP/LAT/OBL LT * * *Final Report* * * DATE OF EXAM: Jan 13 2023 2:19PM AOX 5298 - XR ANKLE 3V AP/LAT/OBL LT / PROCEDURE REASON: multiple diagnoses * * * * Physician Interpretation * * * * HISTORY: Chondrosarcoma (HCC) TECHNOLOGIST PROVIDED HISTORY (if applicable): follow up right lower leg (accession [id number]), left ankle pain and popping sensation (accession [id number]) TECHNIQUE: XR TIBIA FIBULA 2V AP/LAT RT, [...] SIGNIFICANT CHANGE. NO RADIOGRAPHIC SIGNS OF RECURRENCE. Body Die Maker: BARBARA Transcribe Date/Time: Jan 13 2023 4:43P Dictated by : JULISA WEAVER MD This examination was interpreted and the report reviewed and electronically signed by: JULISA WEAVER MD on Jan 13 2023 4:53PM EST [id number] Normal [facility] XR CHEST 2V FRONTAL/LATon XR [...] tissues: Spine degenerative changes IMPRESSION: See result Body Die Maker: [facility] Transcribe Date/Time: Jan 15 2023 3:13P Dictated by : RIKKI PDEERSEN MD This examination was interpreted and the report reviewed and electronically signed by: RIKKI PEDERSEN MD on Jan 15 2023 3:14PM EST [id number] Normal [facility] XR TIBIA FIBULA 2V AP/LAT [...] applicable): follow up right lower leg (accession [id number]), left ankle pain and popping sensation (accession [id number]) TECHNIQUE: XR TIBIA FIBULA 2V AP/LAT RT, [...] SIGNIFICANT CHANGE. NO RADIOGRAPHIC SIGNS OF RECURRENCE. Body Die Maker: [employer] Transcribe Date/Time: Jan 13 2023 4:43P Dictated by : JULISA WEAVER MD This examination was interpreted and the report reviewed and electronically signed by: JULISA WEAVER MD on Jan 13 2023 4:53PM EST [id number] [facility] Office Visiton 12-16-2022 Follow-up visit [id number] Lucinda Sharma 1950 M Date Provider Department Center 12/16/2022 LYDIA MARQUEZ [facility] Family History Problem Relation Age of Onset Coronary artery disease Other Hypertension Other Family Status - Relation Status Age at Other Level of Service:[address] [place] OFFICE/OUTPATIENT ESTABLISHED HIGH MDM 40-54 MIN [facility] 3610-08-2022 36 We can try labetalol 100mg BID instead. If he is not able to tolerate labetalol please have him follow-up with Dr. Jenkins. Thanks! [facility] 36on 10-03-2022 36 The last telephone encounter you sent me 09/22/22 I had said switch coreg to nebivolol. [facility] 36 I thought we switche d him to nebivolol? [facility] 36on 09-21-2022 36 Can switch him to nebivolol 5mg daily. [facility] Orders Onlyon 09-19-2022 Orders Only [id number] Lucinda Sharma yuko Sow 1950 M Date Provider Department Center 09/19/2022 J CARLOS VICTOR CARD [facility] Family History Problem Relation Age of Onset Coronary artery disease Other Hypertension Other Family Status - Relation Status Age at Other [facility] 36on 2022 36 Hmm, I don't see whe re I discontinued it. Maybe his PCP did? Or did he get the impression that with starting carvedilol he was stopping the losartan? We can either have him resume the losartan or we can try to increase his carvedilol to 6.25mg BID. [facility] Office Visiton 07-09-2022 Follow-up visit [id number] Lucinda Sharma yuko Sow 1950 M Date Provider Department Center 07/09/2022 DREA STOVALL CARD [facility] Family History Problem Relation Age of Onset Coronary artery disease Other Hypertension Other Family Status - Relation Status Age at Other Level of Service:58309 [place] OFFICE/OUTPATIENT ESTABLISHED MOD MDM 30-39 MIN Reason for Visit and Comments: Atrial Fibrillation [80] Palpitations [044485] [facility] FLECAINEon 06-24-2022 FLECAINIDE 0.39 ug/ml Normal 0.20 - 1.00 [facility] Comment on above: Result Comment: Flec ainide reported as flecainide acetate. The reference range also is defined as flecaininde acetate. This test was developed and its performance characteristics determined by [facility]. It has not been cleared or approved by the Food and Drug Administration. Performed By: #### T SH, BMP, LIPID, ALT #### [facility] [address] [address] [address] Fidel Paige CBC AUTO DIFFon 06-09-2022 BASO # 0.0 103/ul Normal 0.0-0.1 [facility] Comment on above: Performed By: #### C BC #### [facility] [address] [address] [address] Fidel Paige Basophils/100 WBC (Bld) 0.6 % Normal 0.2-2.0 [facility] Comment on above: Performed By: #### C BC #### [facility] [address] [address] [address] Fidel Paige EO # 0.1 103/ul Normal 0.0-0.7 [facility] Comment on above: Performed By: #### C BC #### [facility] [address] [address] [address] Fidel Paige Eosinophils/100 WBC (Bld) 2.8 % Normal 0.9-7.0 [facility] Comment on above: Performed By: #### C BC #### [facility] [address] [place] [address] Dr. Fidel Paige Erythrocyte distribution width (RBC) [Ratio] 12.8 % Normal 11.0-15.0 [facility] Comment on above: Performed By: #### C BC #### [facility] [address] [place] [address] Dr. Fidel Paige Hematocrit (Bld) [Volume fraction] 41.9 % Critically low 42.0-54.0 [facility] Comment on above: Performed By: #### C BC #### [facility] [address] [place] [address] Dr. Fidel Paige Hemoglobin (Bld) [Mass/Vol] 14.1 g/dL Normal 14.0-18.0 [facility] Comment on above: Performed By: #### C BC #### [facility] [address] [place] [address] Dr. Fidel Paige IG # 0.01 10e3/ul Normal 0.00-0.03 [facility] Comment on above: Performed By: #### C BC #### [facility] [address] [address] [address] Fidel Paige IG % 0.2 % Normal 0.0-0.5 [facility] Comment on above: Performed By: #### C BC #### [facility] [address] [place] [address] Dr. Fidel Paige LYMPH # 1.4 103/ul Normal 1.2-3.8 [facility] Comment on above: Performed By: #### C BC #### [facility] [address] [place] [address] Dr. Fidel Paige Lymphocytes/100 WBC (Bld) 29.2 % Normal 20.5-60.0 [facility] Comment on above: Performed By: #### C BC #### [facility] [address] [place] [address] Dr. Fidel Paige MANUAL DIFF REQ NO Normal [facility] Comment on above: Performed By: #### C BC #### [facility] [address] [place] [address] Dr. Fidel Paige MCH (RBC) [Entitic mass] 31.3 pg Normal 25.9-34.0 [facility] Comment on above: Performed By: #### C BC #### [facility] [address] [place] [address] Dr. Fidel Paige MCHC (RBC) [Mass/Vol] 33.7 g/dL Normal 29.9-35.2 [facility] Comment on above: Performed By: #### C BC #### [facility] [address] [place] [address] Dr. Fidel Paige MCV (RBC) [Entitic vol] 92.9 fL Normal 80.0-94.0 [facility] Comment on above: Performed By: #### C BC #### [facility] [address] [place] [address] Dr. Fidel Paige MONO # 0.7 103/ul Normal 0.3-0.8 [facility] Comment on above: Performed By: #### C BC #### [facility] [address] [place] [address] Dr. Fidel Paige Monocytes/100 WBC (Bld) 13.4 % Critically high 1.7-12.0 [facility] Comment on above: Performed By: #### C BC #### [facility] [address] [place] [address] Dr. Fidel Paige NEUT # 2.7 103/ul Normal 1.4-6.5 [facility] Comment on above: Performed By: #### C BC #### [facility] [address] [place] [address] Dr. Fidel Paige Neutrophils/100 WBC (Bld) 53.8 % Normal 43.0-75.0 [facility] Comment on above: Performed By: #### C BC #### [facility] [address] [place] [address] Dr. Fidel Paige Platelet mean volume (Bld) [Entitic vol] 8.7 fL Critically low 9.5-13.5 [facility] Comment on above: Performed By: #### C BC #### [facility] [address] [place] [address] Dr. Fidel Paige PLT 278 103/ul Normal 150-450 [facility] Comment on above: Performed By: #### C BC #### [facility] [address] [place] [address] Dr. Fidel Paige RBC 4.51 106/ul Critically low 4.70-6.10 [facility] Comment on above: Performed By: #### C BC #### [facility] [address] [place] [address] Dr. Fidel Paige WBC 4.9 103/ul Normal 4.0-11.0 [facility] Comment on above: Performed By: #### C BC #### [facility] [address] [place] [address] Dr. Fidel Paige MAGNESIUMon 06-09-2022 Magnesium [Mass/Vol] 2.0 mg/dL Normal 1.8-2.4 [facility] Comment on above: Performed By: #### T SH, MG, BMP #### [facility] [address] [place] [address] Dr. Fidel Paige PROF CHEM 8 (BAS METB)on Anion gap [Moles/Vol] 8.2 mmol/L Normal [facility] Comment on above: Performed By: #### T SH, MG, BMP #### [facility] [address] [address] [address] Fidel Paige Calcium [Mass/Vol] 10.2 mg/dL Critically high 8.5-10.1 [facility] Comment on above: Performed By: #### T SH, MG, BMP #### [facility] [address] [address] [address] Fidel Paige Chloride [Moles/Vol] 105 mmol/L Normal 98-107 [facility] Comment on above: Performed By: #### T SH, MG, BMP #### [facility] [address] [place] [address] Dr. Fidel Paige CO2 [Moles/Vol] 29.6 mmol/L Normal 21.0-32.0 [facility] Comment on above: Performed By: #### T SH, MG, BMP #### [facility] [address] [place] [address] Dr. Fidel Pagie Creatinine [Mass/Vol] 0.81 mg/dL Normal 0.70-1.30 [facility] Comment on above: Performed By: #### T SH, MG, BMP #### [facility] [address] [place] [address] Dr. Fidel Paige EGFR-AF COLOMBIAN >60 Normal >=60 [facility] Comment on above: Performed By: #### T SH, MG, BMP #### [facility] [address] [place] [address] Dr. Fidel Paige EGFR-NON AF COLOMBIAN >60 Normal >=60 [facility] Comment on above: Performed By: #### T SH, MG, BMP #### [facility] [address] [address] [address] Fidel Paige Glucose [Mass/Vol] 100 mg/dL Normal 74-106 [facility] Comment on above: Performed By: #### T SH, MG, BMP #### [facility] [address] [place] [address] Dr. Fidel Paige Potassium [Moles/Vol] 3.8 mmol/L Normal 3.5-5.1 [facility] Comment on above: Performed By: #### T SH, MG, BMP #### [facility] [address] [place] [address] Dr. Fidel Paige Sodium [Moles/Vol] 139 mmol/L Normal 136-145 [facility] Comment on above: Performed By: #### T SH, MG, BMP #### [facility] [address] [place] [address] Dr. Fidel Paige Urea nitrogen [Mass/Vol] 12.0 mg/dL Normal 7.0-18.0 [facility] Comment on above: Performed By: #### T SH, MG, BMP #### [facility] [address] [place] [address] Dr. Fidel Paige Urea nitrogen/Creatinin e [Mass ratio] 14.8 mg/mg Normal [facility] Comment on above: Performed By: #### T BEATRIS, MG, BMP #### [facility] [address] [place] [address] Dr. Fidel Paige TSHon 06-09-2022 TSH 0.891 uIU/mL Normal 0.358-3.740 [facility] Comment on above: Performed By: #### T SH, MG, BMP #### [facility] [address] [place] [address] Dr. Fidel Paige Office Visiton 06-06-2022 Follow-up visit [id number] Lucinda Sharma 1950 M Date Provider Department Center 06/06/2022 DREA STOVALL [facility] Family History Problem Relation Age of Onset Coronary artery disease Other Hypertension Other Family Status - Relation Status Age at Other Level of Service:7[address]87 [place] OFFICE/OUTPATIENT ESTABLISHED MOD MDM 30-39 MIN Reason for Visit and Comments: Atrial Fibrillation [80] Palpitations [491826] Hypertension [386154] [facility] 36on 06-04-2022 36 Pt states he does no t take metoprolol as it dropped his bp. BP now is 137/72 55 I did make him an appt with you on the . [facility] 36 lm Normal [facility] 36on 06-03-2022 36 Pt said palpitations are all day does get SOB when he sleeps on right side, they go away Normal [facility] 36 Pt said palpitations are all day does get SOB when he sleeps on right side, they go away Normal [facility] CBC AUTO DIFFon 02-07-2022 BASO # 0.0 103/ul Normal 0.0-0.1 [facility] Comment on above: Performed By: #### T SH, BMP, LIPID, ALT #### [facility] [address] [address] [address] Fidel Paige Basophils/100 WBC (Bld) 0.3 % Normal 0.2-2.0 [facility] Comment on above: Performed By: #### T SH, BMP, LIPID, ALT #### [facility] [address] [place] [address] Dr. Fidel Paige EO # 0.1 103/ul Normal 0.0-0.7 [facility] Comment on above: Performed By: #### T SH, BMP, LIPID, ALT #### [facility] [address] [place] [address] Dr. Fidel Paige Eosinophils/100 WBC (Bld) 2.1 % Normal 0.9-7.0 [facility] Comment on above: Performed By: #### T SH, BMP, LIPID, ALT #### [facility] [address] [place] [address] Dr. Fidel Paige Erythrocyte distribution width (RBC) [Ratio] 13.1 % Normal 11.0-15.0 [facility] Comment on above: Performed By: #### T SH, BMP, LIPID, ALT #### [facility] [address] [place] [address] Dr. Fidel Paige Hematocrit (Bld) [Volume fraction] 45.2 % Normal 42.0-54.0 [facility] Comment on above: Performed By: #### T SH, BMP, LIPID, ALT #### [facility] [address] [place] [address] Dr. Fidel Paige Hemoglobin (Bld) [Mass/Vol] 14.8 g/dL Normal 14.0-18.0 [facility] Comment on above: Performed By: #### T SH, BMP, LIPID, ALT #### [facility] [address] [place] [address] Dr. Fidel Paige IG # 0.02 10e3/ul Normal 0.00-0.03 [facility] Comment on above: Performed By: #### T SH, BMP, LIPID, ALT #### [facility] [address] [place] [address] Dr. Fidel Paige IG % 0.3 % Normal 0.0-0.5 [facility] Comment on above: Performed By: #### T SH, BMP, LIPID, ALT #### [facility] [address] [place] [address] Dr. Fidel Paige LYMPH # 1.4 103/ul Normal 1.2-3.8 [facility] Comment on above: Performed By: #### T SH, BMP, LIPID, ALT #### [facility] [address] [place] [address] Dr. Fidel Paige Lymphocytes/100 WBC (Bld) 23.2 % Normal 20.5-60.0 [facility] Comment on above: Performed By: #### T SH, BMP, LIPID, ALT #### [facility] [address] [place] [address] Dr. Fidel Paige MANUAL DIFF REQ NO Normal [facility] Comment on above: Performed By: #### T SH, BMP, LIPID, ALT #### [facility] [address] [place] [address] Dr. Fidel Paige MCH (RBC) [Entitic mass] 31.6 pg Normal 25.9-34.0 [facility] Comment on above: Performed By: #### T SH, BMP, LIPID, ALT #### [facility] [address] [place] [address] Dr. Fidel Paige MCHC (RBC) [Mass/Vol] 32.7 g/dL Normal 29.9-35.2 [facility] Comment on above: Performed By: #### T SH, BMP, LIPID, ALT #### [facility] [address] [place] [address] Dr. Fidel Paige MCV (RBC) [Entitic vol] 96.6 fL Critically high 80.0-94.0 [facility] Comment on above: Performed By: #### T SH, BMP, LIPID, ALT #### [facility] [address] [place] [address] Dr. Fidel Paige MONO # 0.7 103/ul Normal 0.3-0.8 [facility] Comment on above: Performed By: #### T SH, BMP, LIPID, ALT #### [facility] [address] [place] [address] Dr. Fidel Paige Monocytes/100 WBC (Bld) 11.7 % Normal 1.7-12.0 [facility] Comment on above: Performed By: #### T SH, BMP, LIPID, ALT #### [facility] [address] [place] [address] Dr. Fidel Paige NEUT # 3.6 103/ul Normal 1.4-6.5 [facility] Comment on above: Performed By: #### T SH, BMP, LIPID, ALT #### [facility] [address] [place] [address] Dr. Fidel Paige Neutrophils/100 WBC (Bld) 62.4 % Normal 43.0-75.0 [facility] Comment on above: Performed By: #### T SH, BMP, LIPID, ALT #### [facility] [address] [place] [address] Dr. Fidel Paige Platelet mean volume (Bld) [Entitic vol] 8.8 fL Critically low 9.5-13.5 [facility] Comment on above: Performed By: #### T SH, BMP, LIPID, ALT #### [facility] [address] [place] [address] Dr. Fidel Paige PLT 283 103/ul Normal 150-450 [facility] Comment on above: Performed By: #### T SH, BMP, LIPID, ALT #### [facility] [address] [place] [address] Dr. Fidel Paige RBC 4.68 106/ul Critically low 4.70-6.10 [facility] Comment on above: Performed By: #### T SH, BMP, LIPID, ALT #### [facility] [address] [address] [address] Fidel Paige WBC 5.8 103/ul Normal 4.0-11.0 [facility] Comment on above: Performed By: #### T SH, BMP, LIPID, ALT #### [facility] [address] [address] [address] Fidel Paige LIPID PROFILEon 02-07-2022 CHOL-HDL RATIO NORM SEE BELOW Normal [facility] Comment on above: Result Comment: 3.3 - 4.4 LOW RISK 4.4 - 7.1 AVERAGE RISK 7.1 - 11.0 MODERATE RISK >11.0 HIGH RISK Performed By: #### T SH, BMP, LIPID, ALT #### [facility] [address] [address] [address] Fidel Paige Cholesterol [Mass/Vol] 191 mg/dL Normal <=200 [facility] Comment on above: Performed By: #### T SH, BMP, LIPID, ALT #### [facility] [facility] [address] [address] [address] Fidel Paige Cholesterol in HDL [Mass/Vol] 42 mg/dL Normal 40-60 [facility] Comment on above: Performed By: #### T SH, BMP, LIPID, ALT #### [facility] [address] [address] [address] Fidel Paige Cholesterol in LDL [Mass/Vol] 118.0 mg/dL Normal [facility] Comment on above: Performed By: #### T SH, BMP, LIPID, ALT #### [facility] [address] [address] [address] Fidel Paige Cholesterol.total/ Cholesterol in HDL [Mass ratio] 4.5 {ratio} Normal [facility] Comment on above: Performed By: #### T SH, BMP, LIPID, ALT #### [facility] [address] [address] [address] Fidel Paige HDL NORMAL > or = 60 mg/dl - LO W CARDIOVASCULAR RISK <40 mg/dl - HIGH CARDIOVASCULAR RISK Normal [facility] Comment on above: Performed By: #### T SH, BMP, LIPID, ALT #### [facility] [address] [address] [address] Fidel Paige LDL CALC NORMAL SEE BELOW Normal [facility] Comment on above: Result Comment: <100 mg/dl OPTIMAL 100 - 129 mg/dl NEAR OR ABOVE OPTIMAL 130 - 159 mg/dl BORDERLINE HIGH 160 - 189 mg/dl HIGH >190 mg/dl VERY HIGH Performed By: #### T SH, BMP, LIPID, ALT #### [facility] [address] [address] [address] Fidel Paige Triglyceride [Mass/Vol] 155 mg/dL Critically high <=150 [facility] Comment on above: Performed By: #### T SH, BMP, LIPID, ALT #### [facility] [address] [address] [address] Fidel Paige VLDL CALC 31.0 mg/dL Normal [facility] Comment on above: Performed By: #### T SH, BMP, LIPID, ALT #### [facility] [address] [address] [address] Fidel Paige PROF CHEM 8 (BAS METB)on Anion gap [Moles/Vol] 11.0 mmol/L Normal [facility] Comment on above: Performed By: #### T SH, BMP, LIPID, ALT #### [facility] [address] [address] [address] Fidel Paige Calcium [Mass/Vol] 10.1 mg/dL Normal 8.5-10.1 [facility] [place] Comment on above: Performed By: #### T SH, BMP, LIPID, ALT #### [facility] [address] [address] [address] Fidel Paige Chloride [Moles/Vol] 105 mmol/L Normal 98-107 [facility] Comment on above: Performed By: #### T SH, BMP, LIPID, ALT #### [facility] [address] [address] [address] Fidel Paige CO2 [Moles/Vol] 29.0 mmol/L Normal 21.0-32.0 [facility] Comment on above: Performed By: #### T SH, BMP, LIPID, ALT #### [facility] [address] [address] [address] Fidel Paige Creatinine [Mass/Vol] 0.85 mg/dL Normal 0.70-1.30 [facility] Comment on above: Performed By: #### T SH, BMP, LIPID, ALT #### [facility] [address] [place] [address] Dr. Fidel Paige EGFR-AF COLOMBIAN >60 Normal >=60 [facility] Comment on above: Performed By: #### T SH, BMP, LIPID, ALT #### [facility] [address] [place] [address] Dr. Fidel Paige EGFR-NON AF COLOMBIAN >60 Normal >=60 [facility] Comment on above: Performed By: #### T SH, BMP, LIPID, ALT #### [facility] [address] [place] [address] Dr. Fidel Paige Glucose [Mass/Vol] 101 mg/dL Normal 74-106 [facility] Comment on above: Performed By: #### T SH, BMP, LIPID, ALT #### [facility] [address] [place] [address] Dr. Fidel Paige Potassium [Moles/Vol] 4.0 mmol/L Normal 3.5-5.1 [facility] Comment on above: Performed By: #### T SH, BMP, LIPID, ALT #### [facility] [address] [place] [address] Dr. Fidel Paige Sodium [Moles/Vol] 141 mmol/L Normal 136-145 [facility] Comment on above: Performed By: #### T SH, BMP, LIPID, ALT #### [facility] [address] [place] [address] Dr. Fidel Paige Urea nitrogen [Mass/Vol] 13.0 mg/dL Normal 7.0-18.0 [facility] Comment on above: Performed By: #### T SH, BMP, LIPID, ALT #### [facility] [address] [place], [place] [address] Dr. Fidel Paige Urea nitrogen/Creatinin e [Mass ratio] 15.3 mg/mg Normal [facility] Comment on above: Performed By: #### T SH, BMP, LIPID, ALT #### [facility] [address] [place], [place] [address] Dr. Fidel Paige SGPTon 02-07-2022 ALT [Catalytic activity/Vol] 26 U/L Normal 16-63 [facility] Comment on above: Performed By: #### T SH, BMP, LIPID, ALT #### [facility] [address] [place], [place] [address] Dr. Fidel Paige TSHon 02-07-2022 TSH 0.856 uIU/mL Normal 0.358-3.740 [facility] Comment on above: Performed By: #### T SH, BMP, LIPID, ALT #### [facility] [address] [address] [address] Fidel Paige XR CHEST 2V FRONTAL/LATon [facility] US VENOUS DOPPLER L Cristian US [...] by: TIFFANY GUPTA Date: 2021-10-10 12:51 Normal [facility] Encounters Encounter Date Encounter Type Care Provider Facility Start: 06-04-2023 End: 06-04-2023 ambulatory Alvin Contreras Other [email or web address] Other Start: 06-04-2023 Encounter by sergio Contreras [facility] Start: 05-29-2023 End: 05-29-2023 ambulatory Alvin Contreras Other [facility] PHARMAJET Other Start: 05-29-2023 Telephone encounter Alvin Contreras [facility] Start: 03-30-2023 End: 03-30-2023 ambulatory NIKKI MITCHELL Not Available Start: 01-13-2023 End: 01-14-2023 ambulatory HARESH PINEDA Facility:[facility] Start: 01-12-2023 Orders Only Haresh Pineda MD Work Phone: Orthopaedics Comment on above: Chronic pain of left ankle (Primary Dx) Start: 12-16-2022 End: 12-16-2022 ambulatory [facility] Start: 11-17-2022 Orders Only Haresh Pineda MD Work Phone: Orthopaedics Comment on above: Chondrosarcoma (HCC) (Primary Dx) Start: 07-09-2022 End: 07-09-2022 ambulatory [facility] Start: 06-09-2022 End: 06-10-2022 ambulatory [facility] Facility:[facility] Start: 06-06-2022 End: 06-06-2022 ambulatory [facility] Start: 02-07-2022 End: 02-08-[address] [...] 11-09-2017 End: 11-10-2017 Patient encounter DEFAULT PHYSICIAN Facility:[facility] Procedures Date Procedure Procedure Detail Performing Clinician Start: 02-07-[address] RING IN [facility] Comment on above: Performed By: #### T SH, BMP, LIPID, ALT #### [facility] [address] [address] [address] Fidel Paige Start: 11-05-2021 Radiologic exam ches t 2 views Eric Taylor APRN.CNP Work Phone: Start: 11-05-2021 Radiologic examinati on tibia & fibula 2 views Eric Taylor APRN.CNP Work Phone: Start: 06-30-2019 Adult depression scr eening assessment Haresh Pineda MD Work Phone: Plan of Treatment Date Care Activity Detail Author Start: 12-19-2022 Influenza vaccination [facility] Start: 11-05-2022 End: 12-05-2022 Radiologic exam chest 2 views XR CHEST 2V FRONTAL/LAT Radiology Routine Chondrosarcoma (HCC) Expected: 11/05/2022 (Approximate), Expires: 12/05/2022 [facility] Work Phone: Comment on above: Expected: 11/05/2022 (Approximate), Expires: 12/05/2022 Start: 11-05-2022 End: 12-05-2022 XR TIBIA FIBULA 2V AP/LAT RIGHT XR TIBIA FIBULA 2V AP/LAT RIGHT Radiology Routine Chondrosarcoma (HCC) Expected: 11/05/2022 (Approximate), Expires: 12/05/2022 [facility] Work Phone: Comment on above: Expected: 11/05/2022 (Approximate), Expires: 12/05/2022 Start: 10-25-2022 DIABETES SCREEN DIABETES SCREEN [facility] Start: 10-25-2022 Diabetes Screening Diabetes Screenin g [facility] Start: 04-20-2022 ADVANCE DIRECTIVE DISCUSSION ADVANCE DIRECTIVE DISCUSSION [facility] Start: 04-20-2022 DEPRESSION ASSESSMENT DEPRESSION ASS ESSMENT [facility] Start: 12-19-2021 Influenza vaccination INFLUENZA (#1) [facility] Start: 11-18-2021 COVID-19 VACCINE (5 - Pfizer series) COVID-19 VACCINE (5 - Pfizer series) [facility] Start: 04-20-2021 ADVANCE DIRECTIVE DISCUSSION ADVANCE DIRECTIVE DISCUSSION [facility] Start: 06-29-2020 Adult depression screening assessment DEPRESSION SCREENING [facility] Start: 2014 Pneumococcal Vaccine : 65+ (1 - PCV) Pneumococcal Vaccine: 65+ (1 - PCV) [facility] Start: 2014 PNEUMOCOCCAL: 65+ (1 - PCV) PNEUMOCOCCAL: 65+ (1 - PCV) [facility] Start: 09-19-1999 SHINGRIX VACCINE (1 of 2) SHINGRIX VACCINE (1 of 2) [facility] Start: 1994 COLOGUARD (FIT-DNA) COLOGUARD (FIT-D NA) [facility] Start: 1994 Colonoscopy COLONOSCOPY [facility] Start: 1994 COLORECTAL CANCER SCREENING COLORECTAL CANCER SCREENING [facility] Start: [address] COLONOGRAPHY [facility] Start: 1994 FECAL OCCULT BLOOD FECAL OCCULT BLOO D [facility] Start: 1994 SIGMOIDOSCOPY SIGMOIDOSCOPY [facility] Start: 1984 Lipid 1996 panel - Serum or Plasma Lipid Screening [facility] Start: 1984 LIPID SCREEN LIPID SCREEN [facility] Start: 1968 Urine microalbumin profile [facility] Start: 09-19-1967 ANNUAL PCP TEAM SET UP 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 LEE ANN DISEASE VISIT ANNUAL PCP TEAM CHRONIC DISEASE VISIT [facility] Start: 09-19-1967 BP CONTROLLED (<130/80) BP CONTROLLE D (<130/80) [facility] Start: 09-19-1967 HEPATITIS C SCREENING HEPATITIS C SC REENING [facility] End: 12-17-2023 Radiologic exam chest 2 views XR CHEST 2V FRONTAL/LAT Radiology Routine Chondrosarcoma (HCC) 1 Occurrences starting 11/17/2022 until 12/17/2023 [facility] Work Phone: Comment on above: 1 Occurrences starti ng 11/17/2022 until 12/17/2023 End: 02-11-2024 XR ANKLE GENERAL 3V AP/LAT/OBL LEFT XR ANKLE GENERAL 3V AP/LAT/OBL LEFT Radiology Routine Chronic pain of left ankle 1 Occurrences starting 01/12/2023 until 02/11/2024 [facility] Work Phone: Comment on above: 1 Occurrences starti ng 01/12/2023 until 02/11/2024 End: 12-17-2023 XR TIBIA FIBULA 2V AP/LAT RIGHT XR TIBIA FIBULA 2V AP/LAT RIGHT Radiology Routine Chondrosarcoma (HCC) 1 Occurrences starting 11/17/2022 until 12/17/2023 [facility] Work Phone: Comment on above: 1 Occurrences starti ng 11/17/2022 until 12/17/2023 XR TIBIA FIBULA 2V AP/LAT RT XR TIBIA FIBULA 2V AP/LAT RT Radiology Routine Chondrosarcoma (HCC) 11/05/2021 2:50 PM EDT [facility] Work Phone: [facility] Immunizations Immunization Date Immunization Notes Care Provider Omar tilley 02-10-2022 influenza virus vaccine, split virus (incl. purified surface antigen) Alvin Contreras Other [email or web address] Other 05-29-2020 COVID-19 Vaccine Pfi zer - Documentation Purposes Only Alvin Contreras Other [email or web address] Other 10-02-2016 diphtheria, tetanus toxoids and acellular pertussis vaccine, unspecified formulation Alvin Contreras Other [email or web address] Other 03-23-2016 pneumococcal conjuga te vaccine, 13 valent Alvin Contreras Other [email or web address] Other 03-01-2009 pneumococcal polysaccharide vaccine, 23 valent Alvin Contreras Other [email or web address] Other 02-25-2006 diphtheria, tetanus toxoids and acellular pertussis vaccine, unspecified formulation Alvin Contreras Other [email or web address] Other Payers Date Payer Category Payer Medicare MEDICARE MEDICAR E A AND B [id number] 2014-Present [phone] [place] [address] Medicare [id number] 2014 Medicare MEDICARE RAILROA D MEDICARE RAILROAD PB ONLY [id number] 2014-Present [phone] [address] [address] [place] [address] Medicare [id number] 2014 Unknown 2014 Unknown [employer] 2N D [id number] 2014-Present [phone] [address] [address] [place] [address] Indemnity [id number] 2014 Unknown [id number] 1959 Medicare [id number] 1959 Unknown [id number] 1949 Unknown [id number] 3 1949 Unknown [id number] 3 1949 Unknown [id number] 3 1949 Unknown [id number] Social History Date Type Detail Facility [facility]: [facility] Start: 07-17-2017 Tobacco use and exposure Smoke less tobacco non-user [facility] Start: 1950 Sex Assigned At Male [facility] Start: 10-26-2021 End: 11-05-2021 Exposure to SARS-CoV-2 (event) Not sure [facility] Start: 06-30-2019 End: 05-18-2022 History of Social function [facility] Start: 06-30-2019 End: 05-18-2022 Area Deprivation Index [facility] National Score (1-10 0), lower number is lower risk 60 [facility] Start: 11-23-2019 Sexual orientation Heterosexual (fin ding) [facility] Medical Equipment Procedure Code Equipment Code Equipment Origin al Text Equipment Identifier Dates Graft Enhance Demineralized Cortical Fiber Bone Allograft Dehydrate 2.5ml - [id number] Start: 08-27-2017 Graft Cancellous Chips Bone Void Freeze Dry 30ml (1.7-10mm) - [id number] Start: 08-27-2017 Graft Dbx Bone V oid Allograft Freeze Dried Putty 1ml - [id number] Start: 08-27-2017 Tibial Nail [id number] Start: [...] Assessment Notes May, Anemia (ICD-10 - D64.9) [email or web address] Other 09-26-2023 NoteHNO ID: [id number] Author: Keri Lopez RN Service: ? Author Type: Registered Nurse Type: Progress Notes Filed: 01/13/2023 4:19 PM Note Text: I served as a scribe during this office visit encounter. Keri Lopez [facility]09-26-2023 NoteHNO ID: [id number] Author: Ranjith Teixeira RT(Caro) Service: Radiology Author [...] BY: RT Mariel(R) January 13, 2023 2:20 [facility]09-26-2023 NoteHNO ID: [id number] Author: Haresh Pineda MD Service: ? 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 (CPT 60249 - 22) Placement of Prophylactic Carbon Fiber Tibial Nail, Right Tibia (CPT 86997) High Speed Refugio and Adjuvant Treatment with 10% H202 (CPT 63629) Neruolysis and Dissection of Deep Peroneal Nerve (CPT 85665) Right Iliac Crest Marrow Aspiration/Ashley ( CPT 31986) Diagnosis: Right Tibial Diaphysis Cartilage Lesion with [...] his last visit if no concerns. - [facility] Registry Completed and Updated -- consent has been discussed in the past, but he has not signed. I will plan on re-approaching at his 5-yr anniverary. - No activity restrictions on my end Years post-op: ~5.5 years --> Plan to follow along low-grade chondrosarcoma guidelines I spent a total of 30 minutes on the date of the service which included [id number] patient care, completing clinical documentation, obtaining and/or [...] information added by medical student, resident, nurse, HAND ALTERATIONS TAILOR/DEVAN that I have placed my signature directly below I have verified and either instructed them to document in a scribe function or document appropriately in the chart during the patient visit. Haresh Pineda MD steam oven operator, [facility] HospitalSolar Development Engineer, Division of Musculoskeletal Oncology Co-Director of Sarcoma Care, [facility] Pager: [phone] (more content not included)...[facility] HospitalJatfvwao11-28-5458 [facility]2023 NoteUT Electrophysiology Consult Note Reason for visit: [...] This was followed up with [facility] with [facility] protocol which was negative for inducible arrhythmias [...] CVL report IMPRESSION: Successful direct-current cardioversion with lutheran of sinus rhythm from atrial fibrillation with no immediate complication. 03/22/12: EPS EP study by Dr. Carmen Flores on 03/22/2012 for evaluation of wide-complex tachycardia in the setting of normal ejection fraction revealed normal HV interval but no evidence of any AH jump suggestive of dual AV node physiology and no tachycardia was induced. This was followed up with [facility] with [facility] protocol which was negative for inducible arrhythmias [...] CATHETERIZATION CARDIOVERSION HAND SURGERY (more content not included)...[facility] 07-09-2022 NoteCardiovascular Medicine [facility] SUBJECTIVE Chief Complaint Patient presents with [...] This was followed up with [facility] with [facility] protocol which was negative for inducible arrhythmias [...] 2.59 m??? Medications: Curr (more content not included)...[facility]03-22-2023 NotePatient here for 1 mo follow up palpitations and PAF. Had labs 06/09/2022. He says palpitations and dizziness has resolved. Denies chest pain and SOB. Review of Systems Cardiovascular: Positive for leg swelling (intermittent, wears compression stockings prn). Musculoskeletal: Positive for arthritis, joint pain and neck pain. All other systems reviewed and are negative.[facility] 06-06-2022 NoteCardiovascular Medicine [facility] SUBJECTIVE Chief Complaint Patient presents with [...] This was followed up with [facility] with [facility] protocol which was negative for inducible arrhythmias [...] Constitutional: Appearance: Normal appearance. (more content not included)...[facility]02-17-2023 NotePatient here for 6 mo follow up [...] pain. All other systems reviewed and are negative.[facility] 11-05-2021 History of Present illness Narrative* Haresh [...] 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 (CPT 31146 - 22) 2. Placement of Prophylactic Carbon Fiber Tibial Nail, Right Tibia (CPT 20778) 3. High Speed Ehsan and Adjuvant Treatment with 10% H202 (CPT 90448) 4. Neruolysis and Dissection of Deep Peroneal Nerve (CPT 28311) 5. 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 Exam: RLE -- largely unchanged compared [...] the date of the service which included [id number] patient care, completing clinical documentation, obtaining and/or reviewing separately obtained history, performing a medically appropriate examination, counseling and educating the patient/family/caregiver, ordering medications, tests, or procedures, independently interpreting results (not separately reported) and communicating results to the patient/family/caregiver. Any information added by medical student, resident, nurse, HAND ALTERATIONS TAILOR/PAJayC that I have placed my signature directly below I have verified and either instructed them to document in a scribe function or document appropriately in the chart during the patient visit. Haresh Pineda MD steam oven operator, [facility] HospitalSolar Development Engineer, Division of Musculoskeletal Oncology Co-Director of Sarcoma Care, [facility] Pager: [phone] November 05, 2021 5:18 PM documented in [facility] encounterMary[facility]07-19-2022 History of Present illness Narrative* RT [...] 05, 2021 2:49 PM documented in this encounterMary[facility] Hospital06-23-2022 NotePROCEDURE: XR FOREARM LT 2 VIEWS [...] Electronically authenticated by: TIFFANY GUPTA Date: 2021-10-10 12:28[facility] 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, site unspecified documented [facility]* 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, site unspecified [facility] 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, site unspecified documented in this encounter [facility]* Diagnosis Chronic pain of left ankle- Primary documented in this encounter [facility] noteNo InformationNortEncompass Health [facility] PHARMAJET Other History general Narrative - Reported* Type [...] insertion 2018 Hospitalization History see surgical hx [facility] PHARMAJET Other Reason for referral (narrative)* Diagnostic Procedure Only (Routine) - Pending Review Specialty Diagnoses / Procedures Referred By Tigre klipatrick Referred To Contact XR IMAGING Diagnoses Chondrosarcoma (HCC) Procedures XR TIBIA FIBULA 2V AP/LAT RIGHT RADIOLOGIC EXAMINATION TIBIA & FIBULA 2 VIEWS Haresh Pineda MD [address] [place] [address] Xr Imaging Referral ID Status Reason Start Date Expiration Date Visits Requested Visits Authorized [id number] Pending Review Auto-Generat ed Referral 11/05/2022 12/05/2022 1 1 [facility] for referral (narrative)* Diagnostic Procedure Only (Routine) - Pending Review Specialty Diagnoses / Procedures Referred By Tigre kilpatrick Referred To Contact XR IMAGING Diagnoses Chondrosarcoma (HCC) Procedures XR TIBIA FIBULA 2V AP/LAT RIGHT RADIOLOGIC EXAMINATION TIBIA & FIBULA 2 VIEWS Haresh Pineda MD [address] [place] [address] Xr Imaging Referral ID Status Reason Start Date Expiration Date Visits Requested Visits Authorized [id number] Pending Review Auto-Generat ed Referral 11/17/2022 12/17/2023 1 1 [facility] Diagnostic Procedure Only (Routine) - Authorized Specialty Diagnoses / Procedures Referred By Tigre kilpatrick Referred To Contact XR IMAGING Diagnoses Chronic pain of left ankle Procedures XR ANKLE GENERAL 3V AP/LAT/OBL LEFT RADEX ANKLE COMPLETE MINIMUM 3 VIEWS Valeri Quintero PA-C [address] [id number] Xr Imaging [place] [address] Referral ID Status Reason Start Date Expiration Date Visits Requested Visits Authorized [id number] Authorized Auto-Generat ed Referral 01/12/2023 02/11/2024 1 1 [facility] Summary Purpose Family History No Family History Records FoundNo Family History Records FoundNo Family History Records FoundNo Family History Records FoundNo Family History Records FoundNo Family History Records Found Advance Directives Documents on File Type Date Recorded Patient Wool Scourer Expl anation Advance Directive(s) Advance Directive(s) 09/02/2018 11:24 AM Advance Directive(s) 08/26/2018 2:02 PM Advance Directive(s) 08/24/2017 2:28 PM Documents on File Type Date Recorded Patient Wool Scourer Expl anation Advance Directive(s) Advance Directive(s) 09/02/2018 11:24 AM Advance Directive(s) 08/26/2018 2:02 PM Advance Directive(s) 08/24/2017 2:28 PM Documents on File Type Date Recorded Patient Wool Scourer Expl anation Advance Directive(s) 08/24/2017 2:28 PM Additional Source Comments (unrecognized sect ion and content) No Status Records FoundNo Status Records FoundNo Status Records FoundNo Status Records FoundNo Status Records FoundNo Status Records Found INFORMATION SOURCE (unrecogn ized section and content) DATE CREATED AUTHOR 11/10/2017 [facility] DATE CREATED AUTHOR AUTHOR'S ORGANIZ ATION 06/26/[address] [facility] DATE CREATED AUTHOR AUTHOR'S ORGANIZ ATION 01/21/2023 [facility] DATE CREATED AUTHOR AUTHOR'S ORGANIZ ATION 01/21/2023 [facility] DATE CREATED AUTHOR AUTHOR'S ORGANASHLEY ATION 03/31/2023 [facility] EPIC DATE CREATED AUTHOR AUTHOR'S ORGANIZ ATION 06/01/2023 [facility] Source Comments (unrecognize d section and content) In the event this informatio n is protected by the Federal Confidentiality of Alcohol and Drug Abuse Patient Records regulations: The Federal rules restrict any use of the information to criminally investigate or prosecute any alcohol or drug abuse patient.[facility] the event this information is protected by the Federal Confidentiality of Alcohol and Drug Abuse Patient Records regulations: The Federal rules restrict any use of the information to criminally investigate or prosecute any alcohol or drug abuse patient.[facility] HospitalIn the event this information is protected by the Federal Confidentiality of Alcohol and Drug Abuse Patient Records regulations: The Federal rules restrict any use of the information to criminally investigate or prosecute any alcohol or drug abuse patient.[facility] the event this information is protected by the Federal Confidentiality of Alcohol and Drug Abuse Patient Records regulations: The Federal rules restrict any use of the information to criminally investigate or prosecute any alcohol or drug abuse patient.[facility] Reason for Visit (unrecogniz ed section and content) Update Demographics - Person al Info Reason Comments Follow Up Reason Comments Radio Gen A21 Care Teams (unrecognized sec tion and content) Support Services Specialist Relationship Specialty Start Date End Date Ben Alvin Sow, DO [address] [place] [address] PCP - General Internal Medicine 06/19/17 Support Services Specialist Relationship Specialty Start Date End Date Alvin Contreras, DO [address] [place], [place] [id number] PCP - General Internal Medicine 06/19/17 Support Services Specialist Relationship Specialty Start Date End Date Alvin Contreras Juanjose, DO [address] [place] [address] PCP - General Internal Medicine 06/19/17 FOR [...] BE BASED ON THE PRIMARY CLINICAL RECORDS. [facility]. provides no warranty or guarantee of the accuracy or completeness of information in this document.
--- NOTE | 2023-07-16 09:31 | RT_ITS ---
[facility] Test Date: 2023-07-16 Pat Name: BANG SHARMA Department: Room: - Gender: Male Zone Manager: Ronnie Torres RRT : 1950 Requested By: Davin Reyes Order Number: [id number] Reading MD: Davin Reyes Interpretive Statements Pulmonary function testing was completed according to ATS criteria. Findings were considered accurate and reproducible. Both pre- and post-bronchodilator values utilized for spirometry. Due to software limitations, no prior studies (if performed previously) are currently available for comparison. Spirometry (based on pre-bronchodilator values): -FEV1/FVC: Low normal @ 72% -FEV1: Normal @ 93% -FVC: Normal @ 94% -WFE79-67%: Reduced @ 72% -There is a partial bronchodilator response in FEV1 which meets >200mL increase but <12% change. Lung volumes by plethysmography (based on pre-bronchodilator values): -RV: Normal @ 116% -TLC: Normal @ 107% Diffusion capacity: -DLCO: Mild reduction @ 76% when corrected for Hb 14.2g/dL Flow-volume loop: -'Scooping/coving' of the expiratory limb Impressions: -Spirometry trends towards a mild obstruction pattern. There is a partial bronchodilator response. Lung volumes are normal. There is a mildly reduced diffusion capacity. Overall study is compatible with COPD/emphysema. Clinical correlation required. Electronically Signed On 07-22-2023 14:08:13 EDT by Davin Reyes
[2023-07-16] MEDS: ALBUTEROL SULFATE 2.5 MG/3 ML VIAL NEB IH (09:41)
== END 2023-07-16 08:37 | disposition home or self-care (01) ==
LOC: CARD 08:37
PROVIDERS: PCP Internal Medicine; Visit Provider Internal Medicine
DX: R06.02 Shortness of breath (principal)
CPT/HCPCS: 36415; 85018; 94060; 94726; 94729

== ENCOUNTER 2023-08-24 09:10 | Outpatient (OUT) | payer MEDICARE, OTHER, SELFPAY ==
[2023-08-24 09:41] LABS: Basophils Percent Auto 0.7 % (0.2-2.0); Eosinophils Absolute Auto 0.1 10^3/uL (0.0-0.7); Eosinophils Percent Auto 2.2 % (0.9-7.0); Hematocrit 41.8 % (42.0-54.0); Hemoglobin 13.6 g/dL (14.0-18.0); Immature Granulocytes Abs Auto 0.01 10^3/uL (0.00-0.03); Immature Granulocytes Pct Auto 0.2 % (0.0-0.5); Lymphocytes Absolute Auto 1.3 10^3/uL (1.2-3.8); Lymphocytes Percent Auto 22.9 % (20.5-60.0); Mean Corpuscular HGB Conc 32.5 g/dL (29.9-35.2); Mean Corpuscular Hemoglobin 31.4 pg (25.9-34.0); Mean Corpuscular Volume 96.5 fL (80.0-94.0); Monocytes Absolute Auto 0.6 10^3/uL (0.3-0.8); Monocytes Percent Auto 11.1 % (1.7-12.0); Neutrophils Absolute Auto 3.5 10^3/uL (1.4-6.5); Neutrophils Percent Auto 62.9 % (43.0-75.0); Platelet Count 248 10^3/uL (150-450); Red Blood Count 4.33 10^6/uL (4.70-6.10); Red Cell Distribution Width 12.9 % (11.0-15.0); White Blood Count 5.5 10^3/uL (4.0-11.0)
== END 2023-08-24 09:11 | disposition home or self-care (01) ==
LOC: LAB 09:12
PROVIDERS: PCP Internal Medicine; Visit Provider Internal Medicine
DX: D64.9 Anemia, unspecified (principal)
CPT/HCPCS: 36415; 85025

== ENCOUNTER 2023-08-27 14:32 | Outpatient (OUT) | payer MEDICARE, OTHER, SELFPAY ==
[2023-08-27 16:09] LABS: Percent Iron Saturation 20.5 %
== END 2023-08-27 14:33 | disposition home or self-care (01) ==
LOC: LAB 14:37
PROVIDERS: PCP Internal Medicine; Visit Provider Internal Medicine
DX: D64.9 Anemia, unspecified (principal)
CPT/HCPCS: 36415; 82607; 82728; 82746; 83540; 83550

== ENCOUNTER 2023-11-24 12:41 | Outpatient (OUT) | payer MEDICARE, OTHER, SELFPAY ==
--- NOTE | 2023-11-24 12:56 | CA_ITS ---
Patient Name: BANG SHARMA MR#: [id number] : 1950 Exam Date: 11/24/2023 Ordering Doctor: DREA LINO CNP ECHOCARDIOGRAM REPORT PROCEDURE: CA ECHO DOPPLER COMPLETE INDICATIONS: Atrial Fibrillation COMPARISON: None. DESCRIPTION: COMPLETE ECHOCARDIOGRAM Real-time transthoracic echocardiography with 2D, M-mode, spectral and color flow Doppler performed. QUALITY: Technical quality was good. LEFT VENTRICLE: Moderate dilatation. Moderate concentric left ventricular hypertrophy. Systolic function is at the lower limits of normal. LV EF: Lower limits of normal left ventricular ejection fraction, (50-55%). DIASTOLIC: ATRIAL SEPTUM: LEFT ATRIUM: Severe dilatation. RIGHT ATRIUM: Severe dilatation. RIGHT VENTRICLE: Normal chamber size. Normal right ventricular systolic function. TRICUSPID VALVE: Normal mobility and thickness. No stenosis with trivial regurgitation. No evidence of pulmonary hypertension. RVSP 31 mmHg MITRAL VALVE: Normal mobility and thickness. No evidence of mitral valve stenosis. There is no mitral annular calcification. Mild mitral regurgitation. AORTIC VALVE: Normal trileaflet appearance. No visible sclerosis. Normal leaflet mobility. No evidence of aortic valve stenosis. Trivial aortic regurgitation. AORTIC ROOT: Normal diameter and appearance. PULMONIC VALVE: Grossly normal. No stenosis. No regurgitation. PERICARDIUM: No evidence of pericardial effusion. IVC: Collapses with inspirations. Normal size. PLEURA: CONCLUSION: 1. Moderate concentric left trickle hypertrophy with low normal systolic function. LVEF is estimated at 50 to 55%. 2. Normal right ventricular size and systolic function. 3. Severe biatrial dilatation. 4. No significant valvular dysfunction. 5. Normal right-sided pressures. 6. No pericardial effusion. Adult Echocardiography Procedure Report Left Ventricle LVEDD (3.7 - 5.6 cm): 6.55 cm LVESD (2.2 - 4.0 cm): 4.41 cm LVIVS thickness (0.6 - 1.2 cm): 1.57 cm LVPW thickness (0.5 - 1.0 cm): 1.44 cm e': 0.14 m/s E - e': 4.86 LVOT Max Gradient: 3.88 mm[Hg] LVOT Area (cm2): 0.98 m/s Peak Velocity (LVOT): 0.98 m/s Mean Velocity (LVOT): 0.62 m/s LVOT Diameter 2.33 cm Left Ventricular Ejection Fraction: 50-55 % Left Atrium LA Volume Index (2D A2C): 57.45 ml/m2 Left Atrium Systolic Dimension: 5.46 cm Mitral Valve MV E to A Ratio: 1.30 Mitral Valve A-Wave Peak Velocity: 0.54 m/s Mitral Valve E-Wave Peak Velocity: 0.70 m/s Right Ventricle RV Internal Diastolic Dimension: 3.76 cm Aorta AO Root Diam: 3.54 cm Aortic Valve AoV Area (Peak Wayne): 2.43 cm2, 2.43 cm2 AoV Area (VTI): 2.70 cm2, 2.70 cm2 Peak Velocity(Antegrade Flow): 1.72 m/s Peak Gradient(Antegrade Flow): 11.86 mm[Hg] Mean Velocity(Antegrade Flow): 1.13 m/s Mean Gradient(Antegrade Flow): 6.02 mm[Hg] Velocity Time Integral: 34.72 cm Tricuspid Valve Peak Velocity (Regurgitant Flow): 1.78 m/s, 1.74 m/s, 2.64 m/s Pulmonic Valve Peak Velocity: 1.12 m/s Peak Gradient: 5.12 mm[Hg], 4.99 mm[Hg] Right Atrium Right Atrium Systolic Pressure: 81.59 ml, 81.59 ml Dictated by: Chava Real M.D. on 11/24/2023 at 18:19 Approved by: Chava Real M.D. on 11/24/2023 at 18:23
--- OUTSIDE RECORDS SUMMARY | 2023-11-24 13:00 | XMS_ITS | CCD ---
Author Organization [facility] Care Team Providers Care Cable Armorer Name Role Phone PHYSICIAN, DEFAULT Unavailable Unavailable PHYSICIAN, DEFAULT Unavailable ALVIN White Unavailable Unavailable Alvin Contreras DO Primary Care Provider DR ALVIN CONTRERAS [...] Unavailable JR. PHELPS GEORGE C Attending Unavaila Alvin Dent Unavailable LYDIA JENKINS Attending Unavailable DREA LINO Attending Unavailable Allergies Allergy Classification Reported Allergen(s) Allergy Type Date of Onset Reaction(s) Facility (2 sources) meperidine Drug Allergy 4 [facility] Repository (5 sources) Penicillins; Translations: [PENICILLINS] Drug allergy (disorder) 2 AOF [facility] Repository (4 sources) Penicillins Drug Allergy 4 Hives [facility] (6 sources) Insects Extract; Translations: [INSECTS EXTRACT] Drug Allergy 1 Other: See Comments [facility] (2 sources) atorvastatin Drug Allergy Unknown [employer] Other (2 sources) Penicillin Drug Allergy Unknown [employer] Other (2 sources) Substance with penicillin structure and antibacterial mechanism of action (substance) Drug allergy Unknown [employer] Other (1 source) carvedilol; Translations: [CARVEDILOL] Drug Allergy 3 [facility] Repository (1 source) Meperidine; Translations: [MEPERIDINE] Drug Allergy 8 [facility] Repository (1 source) Metoprolol; Translations: [METOPROLOL] Drug Allergy 3 [facility] Repository (1 source) nebivolol; Translations: [NEBIVOLOL] Drug Allergy 3 [facility] Repository Medications Current Medications Medication Drug Class(es) Dates Sig (Normalized) Sig (Original) amLODIPine 10 mg oral tablet (6 sources) Dihydropyridine Calcium Channel Lisa Start: 11-21-2020 take 1 tablet by mouth once daily amLODIPine Besylate 10MG amLODIPine Besylate 10MG, 1 (one) Tablet Tablet Tablet Tablet daily # 0, 11/21/2020, No Refill. Active Oral daily *Pick strength-form from [employer] for eRX* Nov, Active Start: 08-02-2018 take 4 tablets by mo [facility] twice daily amLODIPine (NORVASC) 2.5 mg tablet [...] oral tablet (5 sources) Antiarrhythmic Start: 04-04-20 Flecainide Acetate 100MG Flecainide Acetate( 100MG Oral 1 two times daily ) Active -Hx Entry Oral two times daily *Pick strength-form from [employer] for eRX* Mar, Active Start: 10-08-2021 flecainide (TA MBOCOR) 100 mg tablet Losartan Potassium-HCTZ 100-25MG (2 sources) Start: 04-04-2022 Losartan Potas sium-HCTZ 100-25MG Losartan Potassium-HCTZ( 100-25MG Oral ) Active -Hx Entry Oral *Pick strength-form from [employer] for eRX* Mar, Active Completed/Discontinued Medications Medication [...] on above: Take 1 tablet by sudhakar th once daily. 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; Translations: [OTH LONG-TERM CURRENT DRUG THERAPY] Onset: 02-12-2022 Episodic Other [...] Test Name Value Interpretation Reference Range Facility Office Visiton 11-10-2023 Follow-up visit [id number] Lucinda Sharma 1950 M Date Provider Department Center 11/10/2023 DREA STOVALL ARAM [facility] Family History Problem Relation Age of Onset Coronary artery disease Other Hypertension Other Family Status - Relation Status Age at Other Level of Service:06381 AL OFFICE/OUTPATIENT ESTABLISHED MOD MDM 30 MIN Reason for Visit and Comments: Atrial Fibrillation [80] Normal [facility] Orders Onlyon 05-29-2023 Orders Only [id number] Lucinda Sharma 1950 M Date Provider Department Center 05/29/2023 J CARLOS VICTOR ARAM [facility] Family History Problem Relation Age of Onset Coronary artery disease Other Hypertension Other Family Status - Relation Status Age at Other Normal [facility] CNOVon 01-13-2023 CNOV Office Visit (ORFWHP ) BANG SHARMA ([id number]) 1950 M Date Time Provider Department 01/13/23 2:30 PM HARESH PINEDA ORFWHP During your visit today, we recorded the following information about you: Haresh Pineda MD 01/13/2023 4:19 PM Signed Orthopaedic Surgery Follow-Up Clinic Note Surgery/Date: 08/27/2017 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 (CPT 98572 - 22) Placement of Prophylactic Carbon Fiber Tibial Nail, Right Tibia (CPT 45684) High Speed [place] and Adjuvant Treatment with 10% H202 (CPT 84232) Neruolysis and Dissection of Deep Peroneal Nerve (CPT 60513) Right Iliac C[place] Aspiration/[place] ( CPT 58255) Diagnosis: Right Tibial Diaphysis Cartilage Lesion with [...] the date of the service which included [id number] patient care, completing clinical documentation, obtaining and/or [...] information added by medical student, resident, nurse, TELEGRAPH OFFICE MANAGER/PA-C that I have placed my signature directly below I have verified and either instructed them to document in a scribe function or document appropriately in the chart during the patient visit. Haresh Beavers (more content not included)... Normal [facility] XR ANKLE 3V AP/LAT/OBL LTon 01-13-2023 XR ANKLE 3V AP/LAT/OBL LT * * *Final Report* * * DATE OF EXAM: Jan 13 2023 2:19PM AOX 5298 - XR ANKLE 3V AP/LAT/OBL LT / PROCEDURE REASON: multiple diagnoses * * * * Physician Interpretation * * * * HISTORY: Chondrosarcoma (HCC) TECHNOLOGIST PROVIDED HISTORY (if applicable): follow up right lower leg (accession [id number]), left ankle pain and popping sensation (accession [id number]) TECHNIQUE: XR TIBIA FIBULA 2V AP/LAT RT, [...] SIGNIFICANT CHANGE. NO RADIOGRAPHIC SIGNS OF RECURRENCE. Point Of Care Technician: BARBARA Transcribe Date/Time: Jan 13 2023 4:43P Dictated by : JULISA WEAVER MD This examination was interpreted and the report reviewed and electronically signed by: JULISA WEAVER MD on Jan 13 2023 4:53PM EST [id number] Normal [facility] XR CHEST 2V FRONTAL/LATon XR CHEST 2V [...] tissues: Spine degenerative changes IMPRESSION: See result Point Of Care Technician: BARBARA Transcribe Date/Time: Jan 15 2023 3:13P Dictated by : RIKKI PEDERSEN MD This examination was interpreted and the report reviewed and electronically signed by: RIKKI PEDERSEN MD on Jan 15 2023 3:14PM EST [id number] Normal [facility] XR TIBIA FIBULA 2V AP/LAT RT on [...] applicable): follow up right lower leg (accession [id number]), left ankle pain and popping sensation (accession [id number]) TECHNIQUE: XR TIBIA FIBULA 2V AP/LAT RT, [...] SIGNIFICANT CHANGE. NO RADIOGRAPHIC SIGNS OF RECURRENCE. Point Of Care Technician: PSCB Transcribe Date/Time: Jan 13 2023 4:43P Dictated by : JULISA WEAVER MD This examination was interpreted and the report reviewed and electronically signed by: JULISA WEAVER MD on Jan 13 2023 4:53PM EST [id number] Normal [facility] Office Visiton 12-16-2022 Follow-up visit [id number] Lucinda Sharma 1950 M Date Provider Department Center 12/16/2022 [facility] Problem Relation Age of Onset Coronary artery disease Other Hypertension Other Family Status - Relation Status Age at Other Level of Service:36711 AL OFFICE/OUTPATIENT ESTABLISHED HIGH MDM 40-54 MIN Normal [facility] FLECAINEon 06-24-2022 FLECAINIDE 0.39 ug/ml Normal 0.20 - 1.00 [facility] Comment on above: Result Comment: Flec ainide reported as flecainide acetate. The reference range also is defined as flecaininde acetate. This test was developed and its performance characteristics determined by [employer]. It has not been cleared or approved by the Food and Drug Administration. Performed By: #### T SH, BMP, LIPID, ALT #### [facility] [address] [place] [address] Dr. Fidel Paige CBC AUTO DIFFon 06-09-2022 BASO # 0.0 103/ul Normal 0.0-0.1 [facility] Comment on above: Performed By: #### C BC #### [facility] [address] [place] [address] Dr. Fidel Paige Basophils/100 WBC (Bld) 0.6 % Normal 0.2-2.0 [facility] Comment on above: Performed By: #### C BC #### [facility] [address] [place] [address] Dr. Fidel Paige EO # 0.1 103/ul Normal 0.0-0.7 [facility] Comment on above: Performed By: #### C BC #### [facility] [address] [place] [address] Dr. Fidel Paige Eosinophils/100 WBC (Bld) 2.8 % Normal 0.9-7.0 [facility] Comment on above: Performed By: #### C BC #### [facility] [address] [place] [address] Dr. Fidel Paige Erythrocyte distribution width (RBC) [Ratio] 12.8 % Normal 11.0-15.0 [facility] Comment on above: Performed By: #### C BC #### [facility] [address] [place] [address] Dr. Fidel Paige Hematocrit (Bld) [Volume fraction] 41.9 % Critically low 42.0-54.0 [facility] Comment on above: Performed By: #### C BC #### [facility] [address] [address] [address] Fidel Paige Hemoglobin (Bld) [Mass/Vol] 14.1 g/dL Normal 14.0-18.0 [facility] Comment on above: Performed By: #### C BC #### [facility] [address] [address] [address] Fidel Paige IG # 0.01 10e3/ul Normal 0.00-0.03 [facility] Comment on above: Performed By: #### C BC #### [facility] [address] [place] [address] Dr. Fidel Paige IG % 0.2 % Normal 0.0-0.5 [facility] Comment on above: Performed By: #### C BC #### [facility] [address] [place] [address] Dr. Fidel Paige LYMPH # 1.4 103/ul Normal 1.2-3.8 [facility] Comment on above: Performed By: #### C BC #### [facility] [address] [place] [address] Dr. Fidel Paige Lymphocytes/100 WBC (Bld) 29.2 % Normal 20.5-60.0 [facility] Comment on above: Performed By: #### C BC #### [facility] [address] [place] [address] Dr. Fidel Paige MANUAL DIFF REQ NO Normal [facility] Comment on above: Performed By: #### C BC #### [facility] [address] [place] [address] Dr. Fidel Paige MCH (RBC) [Entitic mass] 31.3 pg Normal 25.9-34.0 [facility] Comment on above: Performed By: #### C BC #### [facility] [address] [place] [address] Dr. Fidel Paige MCHC (RBC) [Mass/Vol] 33.7 g/dL Normal 29.9-35.2 [facility] Comment on above: Performed By: #### C BC #### [facility] [address] [address] [address] Fidel Paige MCV (RBC) [Entitic vol] 92.9 fL Normal 80.0-94.0 [facility] Comment on above: Performed By: #### C BC #### [facility] [address] [address] [address] Fidel Paige MONO # 0.7 103/ul Normal 0.3-0.8 [facility] Comment on above: Performed By: #### C BC #### [facility] [address] [address] [address] Fidel Paige Monocytes/100 WBC (Bld) 13.4 % Critically high 1.7-12.0 [facility] Comment on above: Performed By: #### C BC #### [facility] [address] [address] [address] iFdel Paige NEUT # 2.7 103/ul Normal 1.4-6.5 [facility] Comment on above: Performed By: #### C BC #### [facility] [address] [address] [address] Fidel Paige Neutrophils/100 WBC (Bld) 53.8 % Normal 43.0-75.0 [facility] Comment on above: Performed By: #### C BC #### [facility] [address] [address] [address] Fidel Paige Platelet mean volume (Bld) [Entitic vol] 8.7 fL Critically low 9.5-13.5 [facility] Comment on above: Performed By: #### C BC #### [facility] [address] [address] [address] Fidel Paige PLT 278 103/ul Normal 150-450 [facility] Comment on above: Performed By: #### C BC #### [facility] [address] [address] [address] Fidel Paige RBC 4.51 106/ul Critically low 4.70-6.[address] [facility] Comment on above: Performed By: #### C BC #### [facility] [address] [place] [address] Dr. Fidel Paige WBC 4.9 103/ul Normal 4.0-11.0 [facility] Comment on above: Performed By: #### C BC #### [facility] [address] [place] [address] Dr. Fidel Paige MAGNESIUMon 06-09-2022 Magnesium [Mass/Vol] 2.0 mg/dL Normal 1.8-2.4 [facility] Comment on above: Performed By: #### T SH, MG, BMP #### [facility] [address] [place] [address] Dr. Fidel Paige PROF CHEM 8 (BAS METB)on Anion gap [Moles/Vol] 8.2 mmol/L Normal [facility] Comment on above: Performed By: #### T SH, MG, BMP #### [facility] [address] [place] [address] Dr. Fidel Paige Calcium [Mass/Vol] 10.2 mg/dL Critically high 8.5-10.1 [facility] Comment on above: Performed By: #### T SH, MG, BMP #### [facility] [address] [place] [address] Dr. Fidel Paige Chloride [Moles/Vol] 105 mmol/L Normal 98-107 [facility] Comment on above: Performed By: #### T SH, MG, BMP #### [facility] [address] [place] [address] Dr. Fidel Paige CO2 [Moles/Vol] 29.6 mmol/L Normal 21.0-32.0 [facility] Comment on above: Performed By: #### T SH, MG, BMP #### [facility] [address] [place] [address] Dr. Fidel Paige Creatinine [Mass/Vol] 0.81 mg/dL Normal 0.70-1.30 [facility] Comment on above: Performed By: #### T SH, MG, BMP #### [facility] [address] [place] [address] Dr. Fidel Paige EGFR-AF SWISS >60 Normal >=60 [facility] Comment on above: Performed By: #### T SH, MG, BMP #### [facility] [address] [place] [address] Dr. Fidel Paige EGFR-NON AF SWISS >60 Normal >=60 [facility] Comment on above: Performed By: #### T SH, MG, BMP #### [facility] [address] [place] [address] Dr. Fidel Paige Glucose [Mass/Vol] 100 mg/dL Normal 74-106 [facility] Comment on above: Performed By: #### T SH, MG, BMP #### [facility] [address] [place] [address] Dr. Fidel Paige Potassium [Moles/Vol] 3.8 mmol/L Normal 3.5-5.1 [facility] Comment on above: Performed By: #### T SH, MG, BMP #### [facility] [address] [place] [address] Dr. Fidel aPige Sodium [Moles/Vol] 139 mmol/L Normal 136-145 [facility] Comment on above: Performed By: #### T SH, MG, BMP #### [facility] [address] [place] [address] Dr. Fidel Paige Urea nitrogen [Mass/Vol] 12.0 mg/dL Normal 7.0-18.0 [facility] Comment on above: Performed By: #### T SH, MG, BMP #### [facility] [address] [place] [address] Dr. Fidel Paige Urea nitrogen/Creatinin e [Mass ratio] 14.8 mg/mg Normal [facility] Comment on above: Performed By: #### T SH, MG, BMP #### [facility] [address] [place] [address] Dr. Fidel Paige TSHon 06-09-2022 TSH 0.891 uIU/mL Normal 0.358-3.740 [facility] Comment on above: Performed By: #### T SH, MG, BMP #### [facility] [address] [place] [address] Dr. Fidel Paige CBC AUTO DIFFon 02-07-2022 BASO # 0.0 103/ul Normal 0.0-0.1 [facility] Comment on above: Performed By: #### T SH, BMP, LIPID, ALT #### [facility] [address] [address] [address] Fidel Paige Basophils/100 WBC (Bld) 0.3 % Normal 0.2-2.0 [facility] Comment on above: Performed By: #### T SH, BMP, LIPID, ALT #### [facility] [address] [address] [address] Fidel Paige EO # 0.1 103/ul Normal 0.0-0.7 [facility] Comment on above: Performed By: #### T SH, BMP, LIPID, ALT #### [facility] [address] [place] [address] Dr. Fidel Paige Eosinophils/100 WBC (Bld) 2.1 % Normal 0.9-7.0 [facility] Comment on above: Performed By: #### T SH, BMP, LIPID, ALT #### [facility] [address] [address] [address] Fidel Paige Erythrocyte distribution width (RBC) [Ratio] 13.1 % Normal 11.0-15.0 [facility] Comment on above: Performed By: #### T SH, BMP, LIPID, ALT #### [facility] [address] [address] [address] Fidel Paige Hematocrit (Bld) [Volume fraction] 45.2 % Normal 42.0-54.0 [facility] Comment on above: Performed By: #### T SH, BMP, LIPID, ALT #### [facility] [address] [place] [address] Dr. Fidel Paige Hemoglobin (Bld) [Mass/Vol] 14.8 g/dL Normal 14.0-18.0 [facility] Comment on above: Performed By: #### T SH, BMP, LIPID, ALT #### [facility] [address] [place] [address] Dr. Fidel Paige IG # 0.02 10e3/ul Normal 0.00-0.03 [facility] Comment on above: Performed By: #### T SH, BMP, LIPID, ALT #### [facility] [address] [place] [address] Dr. Fidel Paige IG % 0.3 % Normal 0.0-0.5 [facility] Comment on above: Performed By: #### T SH, BMP, LIPID, ALT #### [facility] [address] [place] [address] Dr. Fidel Paige LYMPH # 1.4 103/ul Normal 1.2-3.8 [facility] Comment on above: Performed By: #### T SH, BMP, LIPID, ALT #### [facility] [address] [place] [address] Dr. Fidel Paige Lymphocytes/100 WBC (Bld) 23.2 % Normal 20.5-60.0 [facility] Comment on above: Performed By: #### T SH, BMP, LIPID, ALT #### [facility] [address] [place] [address] Dr. Fidel Paige MANUAL DIFF REQ NO Normal [facility] Comment on above: Performed By: #### T SH, BMP, LIPID, ALT #### [facility] [address] [place] [address] Dr. Fidel Paige MCH (RBC) [Entitic mass] 31.6 pg Normal 25.9-34.0 [facility] Comment on above: Performed By: #### T SH, BMP, LIPID, ALT #### [facility] [address] [place] [address] Dr. Fidel Paige MCHC (RBC) [Mass/Vol] 32.7 g/dL Normal 29.9-35.2 [facility] Comment on above: Performed By: #### T SH, BMP, LIPID, ALT #### [facility] [address] [place] [address] Dr. Fidel Paige MCV (RBC) [Entitic vol] 96.6 fL Critically high 80.0-94.0 [facility] Comment on above: Performed By: #### T SH, BMP, LIPID, ALT #### [facility] [address] [place] [address] Dr. Fidel Paige MONO # 0.7 103/ul Normal 0.3-0.8 [facility] Comment on above: Performed By: #### T SH, BMP, LIPID, ALT #### [facility] [address] [place] [address] Dr. Fidel Paige Monocytes/100 WBC (Bld) 11.7 % Normal 1.7-12.0 [facility] Comment on above: Performed By: #### T SH, BMP, LIPID, ALT #### [facility] [address] [place] [address] Dr. Fidel Paige NEUT # 3.6 103/ul Normal 1.4-6.5 [facility] Comment on above: Performed By: #### T SH, BMP, LIPID, ALT #### [facility] [address] [place] [address] Dr. Fidel Paige Neutrophils/100 WBC (Bld) 62.4 % Normal 43.0-75.0 [facility] Comment on above: Performed By: #### T SH, BMP, LIPID, ALT #### [facility] [address] [place] [address] Dr. Fidel Paige Platelet mean volume (Bld) [Entitic vol] 8.8 fL Critically low 9.5-13.5 [facility] Comment on above: Performed By: #### T SH, BMP, LIPID, ALT #### [facility] [address] [place] [address] Dr. Fidel Paige PLT 283 103/ul Normal 150-450 [facility] Comment on above: Performed By: #### T SH, BMP, LIPID, ALT #### [facility] [address] [place] [address] Dr. Fidel Paige RBC 4.68 106/ul Critically low 4.70-6.[address] [facility] Comment on above: Performed By: #### T SH, BMP, LIPID, ALT #### [facility] [address] [place] [address] Dr. Fidel Paige WBC 5.8 103/ul Normal 4.0-11.0 [facility] Comment on above: Performed By: #### T SH, BMP, LIPID, ALT #### [facility] [address] [address] [address] Fidel Paige LIPID PROFILEon 02-07-2022 CHOL-HDL RATIO NORM SEE BELOW Normal [facility] Comment on above: Result Comment: 3.3 - 4.4 LOW RISK 4.4 - 7.1 AVERAGE RISK 7.1 - 11.0 MODERATE RISK >11.0 HIGH RISK Performed By: #### T SH, BMP, LIPID, ALT #### [facility] [address] [address] [address] Fidel Paige Cholesterol [Mass/Vol] 191 mg/dL Normal <=200 [facility] Comment on above: Performed By: #### T SH, BMP, LIPID, ALT #### [facility] [address] [address] [address] Fidel Paige Cholesterol in HDL [Mass/Vol] 42 mg/dL Normal 40-60 [facility] Comment on above: Performed By: #### T SH, BMP, LIPID, ALT #### [facility] [address] [address] [address] Fidel Paige Cholesterol in LDL [Mass/Vol] 118.0 mg/dL Normal [facility] Comment on above: Performed By: #### T SH, BMP, LIPID, ALT #### [facility] [address] [address] [address] Fidel Paige Cholesterol.total/ Cholesterol in HDL [Mass ratio] 4.5 {ratio} Normal [facility] Comment on above: Performed By: #### T SH, BMP, LIPID, ALT #### [facility] [address] [address] [address] Fidel Paige HDL NORMAL > or = 60 mg/dl - LO W CARDIOVASCULAR RISK <40 mg/dl - HIGH CARDIOVASCULAR RISK Normal [facility] Comment on above: Performed By: #### T SH, BMP, LIPID, ALT #### [facility] [address] [address] [address] Fidel Paige LDL CALC NORMAL SEE BELOW Normal [facility] Comment on above: Result Comment: <100 mg/dl OPTIMAL 100 - 129 mg/dl NEAR OR ABOVE OPTIMAL 130 - 159 mg/dl BORDERLINE HIGH 160 - 189 mg/dl HIGH >190 mg/dl VERY HIGH Performed By: #### T SH, BMP, LIPID, ALT #### [facility] [address] [address] [address] Fidel Paige Triglyceride [Mass/Vol] 155 mg/dL Critically high <=150 [facility] Comment on above: Performed By: #### T SH, BMP, LIPID, ALT #### [facility] [address] [address] [address] Fidel Paige VLDL CALC 31.0 mg/dL Normal [facility] Comment on above: Performed By: #### T SH, BMP, LIPID, ALT #### [facility] [address] [place] [address] Dr. Fidel Paige PROF CHEM 8 (BAS METB)on Anion gap [Moles/Vol] 11.0 mmol/L Normal [facility] Comment on above: Performed By: #### T SH, BMP, LIPID, ALT #### [facility] [address] [address] [address] Fidel Paige Calcium [Mass/Vol] 10.1 mg/dL Normal 8.5-10.1 [facility] Comment on above: Performed By: #### T SH, BMP, LIPID, ALT #### [facility] [address] [address] [address] Fidel Paige Chloride [Moles/Vol] 105 mmol/L Normal 98-107 [facility] Comment on above: Performed By: #### T SH, BMP, LIPID, ALT #### [facility] [address] [address] [address] Fidel Paige CO2 [Moles/Vol] 29.0 mmol/L Normal 21.0-32.0 [facility] Comment on above: Performed By: #### T SH, BMP, LIPID, ALT #### [facility] [address] [address] [address] Fidel Paige Creatinine [Mass/Vol] 0.85 mg/dL Normal 0.70-1.30 [facility] Comment on above: Performed By: #### T SH, BMP, LIPID, ALT #### [facility] [address] [address] [address] Fidel Paige EGFR-AF SWISS >60 Normal >=60 [facility] Comment on above: Performed By: #### T SH, BMP, LIPID, ALT #### [facility] [address] [address] [address] Fidel Paige EGFR-NON AF SWISS >60 Normal >=60 [facility] Comment on above: Performed By: #### T SH, BMP, LIPID, ALT #### [facility] [address] [place] [address] Dr. Fidel Paige Glucose [Mass/Vol] 101 mg/dL Normal 74-[address] [facility] Comment on above: Performed By: #### T SH, BMP, LIPID, ALT #### [facility] [address] [address] [address] Fidel Paige Potassium [Moles/Vol] 4.0 mmol/L Normal 3.5-5.1 [facility] Comment on above: Performed By: #### T SH, BMP, LIPID, ALT #### [facility] [address] [place] [address] Dr. Fidel Paige Sodium [Moles/Vol] 141 mmol/L Normal 136-[address] [facility] Comment on above: Performed By: #### T SH, BMP, LIPID, ALT #### [facility] [address] [place] [address] Dr. Fidel Paige Urea nitrogen [Mass/Vol] 13.0 mg/dL Normal 7.0-18.0 [facility] Comment on above: Performed By: #### T SH, BMP, LIPID, ALT #### [facility] [address] [place] [address] Dr. Fidel Paige Urea nitrogen/Creatinin e [Mass ratio] 15.3 mg/mg Normal [facility] Comment on above: Performed By: #### T SH, BMP, LIPID, ALT #### [facility] [address] [place], [place] [address] Dr. Fidel Paige SGPTon 02-07-2022 ALT [Catalytic activity/Vol] 26 U/L Normal 16-63 [facility] Comment on above: Performed By: #### T SH, BMP, LIPID, ALT #### [facility] [address] [place], [place] [address] Dr. Fidel Paige TSHon 02-07-2022 TSH 0.856 uIU/mL Normal 0.358-3.740 [facility] Comment on above: Performed By: #### T SH, BMP, LIPID, ALT #### [facility] [address] [place], [place] [address] Dr. Fidel Paige XR CHEST 2V FRONTAL/LATon [facility] US VENOUS DOPPLER L Cristian US [...] at site of concern. Electronically authenticated by: TIFFAYN GUPTA Date: 2021-10-10 12:51 Normal [facility] Encounters Encounter Date Encounter Type Care Provider Facility Start: 11-10-2023 End: 11-10-2023 ambulatory [facility] Start: 06-04-2023 End: 06-04-2023 ambulatory Alvin Contreras Other [employer] Other Start: 06-04-2023 Encounter by sergio Contreras [facility] Start: 05-29-2023 End: 05-29-2023 ambulatory Alvin Contreras Other [employer] Other Start: 05-29-2023 Telephone encounter Alvin BUNDY [facility] Start: 03-30-2023 End: 03-30-2023 ambulatory NikkiNIKKI Not Available Start: 01-13-2023 End: 01-14-2023 ambulatory HARESH PINEDA Facility:[facility] Start: 01-12-2023 Orders Only Haresh Pineda MD Work Phone: Orthopaedics Comment on above: Chronic pain of left ankle (Primary Dx) Start: 12-16-2022 End: 12-16-2022 ambulatory [facility] Start: 11-17-2022 Orders Only Haresh Pineda MD Work Phone: Orthopaedics Comment on above: Chondrosarcoma (HCC) (Primary Dx) Start: 06-09-2022 End: 06-10-2022 ambulatory DREA LINO Facility:[facility] Start: 02-07-2022 End: 02-08-[address] ALVIN [...] 11-09-2017 End: 11-10-2017 Patient encounter DEFAULT PHYSICIAN Facility:[facility] Procedures Date Procedure Procedure Detail Performing Clinician Start: 02-07-[address] JHONATHAN CONTRERAS Comment on above: Performed By: #### T SH, BMP, LIPID, ALT #### [facility] [address] [address] [address] Fidel Paige Start: 11-05-2021 Radiologic exam ches t 2 views Eric Taylor APRN.TELEGRAPH OFFICE MANAGER Work Phone: Start: 11-05-2021 Radiologic examinati on tibia & fibula 2 views Eric Taylor APRN.TELEGRAPH OFFICE MANAGER Work Phone: Start: 06-30-2019 Adult depression scr eening assessment Haresh Pineda MD Work Phone: Plan of Treatment Date Care Activity Detail Author Start: 12-19-2022 Influenza vaccination [facility] Start: 11-05-2022 End: 12-05-2022 Radiologic exam chest 2 views XR CHEST 2V FRONTAL/LAT Radiology Routine Chondrosarcoma (HCC) Expected: 11/05/2022 (Approximate), Expires: 12/05/2022 [facility] Work Phone: Comment on above: Expected: 11/05/2022 (Approximate), Expires: 12/05/2022 Start: 11-05-2022 End: 12-05-2022 XR TIBIA FIBULA 2V AP/LAT RIGHT XR TIBIA FIBULA 2V AP/LAT RIGHT Radiology Routine Chondrosarcoma (HCC) Expected: 11/05/2022 (Approximate), Expires: 12/05/2022 [facility] Work Phone: Comment on above: Expected: 11/05/2022 (Approximate), Expires: 12/05/2022 Start: 10-25-2022 DIABETES SCREEN DIABETES SCREEN [facility] Start: 10-25-2022 Diabetes Screening Diabetes Screenin g [facility] Start: 04-20-2022 ADVANCE DIRECTIVE DISCUSSION ADVANCE DIRECTIVE DISCUSSION [facility] Start: 04-20-2022 DEPRESSION ASSESSMENT DEPRESSION ASS ESSMENT [facility] Start: 12-19-2021 Influenza vaccination INFLUENZA (#1) [facility] Start: 11-18-2021 COVID-19 VACCINE (5 - Pfizer series) COVID-19 VACCINE (5 - Pfizer series) [facility] Start: 04-20-2021 ADVANCE DIRECTIVE DISCUSSION ADVANCE DIRECTIVE DISCUSSION [facility] Start: 06-29-2020 Adult depression screening assessment DEPRESSION SCREENING [facility] Start: 2014 Pneumococcal Vaccine : 65+ (1 - PCV) Pneumococcal Vaccine: 65+ (1 - PCV) [facility] Start: 2014 PNEUMOCOCCAL: 65+ (1 - PCV) PNEUMOCOCCAL: 65+ (1 - PCV) [facility] Start: 09-19-1999 SHINGRIX VACCINE (1 of 2) SHINGRIX VACCINE (1 of 2) [facility] Start: 1994 COLOGUARD (FIT-DNA) COLOGUARD (FIT-D NA) [facility] Start: 1994 Colonoscopy COLONOSCOPY [facility] Start: 1994 COLORECTAL CANCER SCREENING COLORECTAL CANCER SCREENING [facility] Start: [address] COLONOGRAPHY [facility] Start: 1994 FECAL OCCULT BLOOD FECAL OCCULT BLOO D [facility] Start: 1994 [facility] Start: 1984 Lipid 1996 panel - Serum or Plasma Lipid Screening [facility] Start: 1984 LIPID SCREEN LIPID SCREEN [facility] Start: 1968 Urine microalbumin profile [facility] Start: 09-19-1967 ANNUAL PCP TEAM COMMUNICATIONS FIELD TECHNICIAN LEE ANN DISEASE VISIT ANNUAL PCP TEAM CHRONIC DISEASE VISIT [facility] Start: 09-19-1967 BP CONTROLLED (<130/80) BP CONTROLLE D (<130/80) [facility] Start: 09-19-1967 HEPATITIS C SCREENING HEPATITIS C SC REENING [facility] End: 12-17-2023 Radiologic exam chest 2 views XR CHEST 2V FRONTAL/LAT Radiology Routine Chondrosarcoma (HCC) 1 Occurrences starting 11/17/2022 until 12/17/2023 [facility] Work Phone: Comment on above: 1 Occurrences starti ng 11/17/2022 until 12/17/2023 End: 02-11-2024 XR ANKLE GENERAL 3V AP/LAT/OBL LEFT XR ANKLE GENERAL 3V AP/LAT/OBL LEFT Radiology Routine Chronic pain of left ankle 1 Occurrences starting 01/12/2023 until 02/11/2024 [facility] Work Phone: Comment on above: 1 Occurrences starti ng 01/12/2023 until 02/11/2024 End: 12-17-2023 XR TIBIA FIBULA 2V AP/LAT RIGHT XR TIBIA FIBULA 2V AP/LAT RIGHT Radiology Routine Chondrosarcoma (HCC) 1 Occurrences starting 11/17/2022 until 12/17/2023 [facility] Work Phone: Comment on above: 1 Occurrences starti ng 11/17/2022 until 12/17/2023 XR TIBIA FIBULA 2V AP/LAT RT XR TIBIA FIBULA 2V AP/LAT RT Radiology Routine Chondrosarcoma (HCC) 11/05/2021 2:50 PM EDT [facility] Work Phone: [facility] Immunizations Immunization Date Immunization Notes Care Provider Omar tilley 02-10-2022 influenza virus vaccine, split virus (incl. purified surface antigen) Alvin Contreras Other [employer] Other 05-29-2020 COVID-19 Vaccine Pfi zer - Documentation Purposes Only Alvin Contreras Other [employer] Other 10-02-2016 diphtheria, tetanus toxoids and acellular pertussis vaccine, unspecified formulation Alvin Contreras Other [employer] Other 03-23-2016 pneumococcal conjuga te vaccine, 13 valent Alvin Contreras Other [employer] Other 03-01-2009 pneumococcal polysaccharide vaccine, 23 valent Alvin Contreras Other [employer] Other 02-25-2006 diphtheria, tetanus toxoids and acellular pertussis vaccine, unspecified formulation Alvin Contreras Other [employer] Other Payers Date Payer Category Payer Medicare MEDICARE MEDICAR E A AND B [id number] 2014-Present [phone] [address] [address] [place] [address] Medicare [id number] 2014 Medicare MEDICARE RAILROA D MEDICARE RAILROAD PB ONLY [id number] 2014-Present [phone] [address] [address] [place] [address] Medicare [id number] 2014 Unknown 2014 Unknown [employer] 2N D [id number] 2014-Present [phone] [address] [address] [place] [address] Indemnity [id number] 2014 Unknown [id number] 1959 Medicare [id number] 1959 Unknown [id number] 1949 Unknown [id number] 3 1949 Unknown [id number] 1949 Unknown [id number] 3 1949 Unknown [id number] Social History Date Type Detail Facility Start: 07-17-2017 Tobacco smoking stat [facility] Never smoked tobacco [facility] Start: 07-17-2017 Tobacco use and exposure Smoke less tobacco non-user [facility] Start: 1950 Sex Assigned At Male [facility] Start: 10-26-2021 End: 11-05-2021 Exposure to SARS-CoV-2 (event) Not sure [facility] Start: 06-30-2019 End: 05-18-2022 History of Social function [facility] Start: 06-30-2019 End: 05-18-2022 Area Deprivation Index [facility] National Score (1-10 0), lower number is lower risk 60 [facility] Start: 11-23-2019 Sexual orientation Heterosexual (dirk gibson) [facility] Medical Equipment Procedure Code Equipment Code Equipment Origin al Text Equipment Identifier Dates Graft Enhance Demineralized Cortical Fiber Bone Allograft Dehydrate 2.5ml - [id number] Start: 08-27-2017 Graft Cancellous Chips Bone Void Freeze Dry 30ml (1.7-10mm) - [id number] Start: 08-27-2017 Graft Dbx Bone V oid Allograft Freeze Dried Putty 1ml - [id number] Start: 08-27-2017 Tibial Nail [id number] Start: 08-27-2017 Carbofix Titaniumscrew [id number] S tart: 08-27-2017 Carb[employer]ix Titaniu m Screw [id number] Start: 08-27-2017 Carb[employer]ix Titaniu m Screw [id number] Start: 08-27-2017 Carbofix Titaniu m Screw [id number] Start: 08-27-2017 Carbofix Titaniu m Screw [id number] Start: 08-27-2017 Clinical Notes 10-10-2021 to 11-10-2023 Note Date & Type Note Facility 11-10-2023 Note Cardiovascular Medic [facility] SUBJECTIVE Chief Complaint Patient presents with Atrial Fibrillation Bang Sharma is a 73 y.o. male here for follow-up. Atrial Fibrillation Presents for follow-up visit. Symptoms are negative for bradycardia, hypertension and tachycardia. The symptoms have been improving. Past medical history includes atrial fibrillation. Palpitations The problem has been resolved. 11/10/2023 -He had increased palpitations a couple of weeks ago after he had some dental work done and he also received a new Rx of flecainde. He has since cut his flecainde in half to 50mg twice a day and this has helped. Since last seen, he started taking a [...] This was followed up with [facility] with [facility] protocol which was negative for inducible [...] Primary cardiomyopathy (CMS/HCC) Right foot drop Tachycardia PAF (paroxysmal atrial fibrillation) (CMS/HCC) Past Medical History: Diagnosis Date Abnormal ECG Arrhythmia HLD (hyperlipidemia) HTN (hypertension) LVH (left ventricular hypertrophy) PAF (paroxysmal atrial fibrillation) (CMS/HCC) Primary cardiomyopathy (CMS/HCC) PVT (paroxysmal ventricular tachycardia) (CMS/HCC) SVT (supraventricular tachycardia) (CMS/HCC) Tachycardia Family History Problem Relation Name Age of Onset Coronary artery disease Other Hypertension Other Social History Tobacco Use Smoking status: Never Smokeless tobacco: Never Substance Use Topics Alcohol use: Yes Comment: occasional Allergies Allergen Reactions Penicillins Hives Bystolic [Nebivolol] Diarrhea Coreg [Carvedilol] Diarrhea Meperidine Metoprolol ROS Constitutional: Positive for weight loss (13# since Nov 2022). Cardiovascular: Positive for dyspnea on exertion (improving), palpitations and leg swelling. Musculoskeletal: Positive for arthritis, joint pain and neck pain. All other systems reviewed and are negative. OBJECTIVE Visit Vitals BP 124/76 (BP Location: Right arm, Patient Position: Sitting) Pulse 71 Ht 1.905 m (6' 3 ) Wt 118 kg (260 lb) SpO2 (more content not included)... [facility] 11-10-2023 Note Patient here today w ith concerns about his HR and flecainide. He says his HR was running in the 40's and BP's running in the 90's systolic. He was feeling dizzy and lightheaded since Mar 2024 when he had Covid-19. He has cut down his flecainide dose to 50mg bid and he feels better. He has been directed to take iron for low HGB and has been less SOB now that he's taking that. Review of Systems Constitutional: Positive for weight loss (13# since Nov 2022). Cardiovascular: Positive for dyspnea on exertion (improving) and leg swelling. Musculoskeletal: Positive for arthritis, joint pain and neck pain. All other systems reviewed and are negative. [facility] 05-29-2023 Evaluation note Encounter Date Diagnosis Assessment Notes May, Anemia (ICD-10 - D64.9) [employer] Other 09-26-2023 NoteHNO ID: [id number] Author: Keri Lopez RN Service: ? Author Type: Registered Nurse Type: Progress Notes Filed: 01/13/2023 4:19 PM Note Text: I served as a scribe during this office visit encounter. [facility] NoteHNO ID: [id number] Author: Ranjith Teixeira RT(Caro) Service: Radiology Author [...] IV DATA: Not applicable SIGNED BY: RT Mariel(Caro) January 13, 2023 2:20 [facility]09-26-2023 NoteHNO ID: [id number] Author: Haresh Pineda MD Service: ? 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 (CPT 79116 - 22) Placement of Prophylactic Carbon Fiber Tibial Nail, Right Tibia (CPT 17883) High Speed [place] and Adjuvant Treatment with 10% H202 (CPT 64955) Neruolysis and Dissection of Deep Peroneal Nerve (CPT 72757) Right Iliac Crest Marrow Aspiration/Cripple Creek ( CPT 11324) Diagnosis: Right Tibial Diaphysis Cartilage Lesion with [...] the date of the service which included [id number] patient care, completing clinical documentation, obtaining and/or [...] information added by medical student, resident, nurse, TELEGRAPH OFFICE MANAGER/PAJayC that I have placed my signature directly below I have verified and either instructed them to document in a scribe function or document appropriately in the chart during the patient visit. Haresh Pineda MD microarray specialist, [facility] Hospital[facility] Sales Consultant, Division of Musculoskeletal Oncology Co-Director of Sarcoma Care, [facility] Pager: [phone] (more content not included)...[facility] [id number] NoteC[facility]innati [facility]-29-2023 NoteUT Electrophysiology Consult Note Reason [...] This was followed up with [facility] with [facility] protocol which was negative for inducible [...] CVL report IMPRESSION: Successful direct-current cardioversion with yazdanism of sinus rhythm from atrial fibrillation with no immediate complication. 03/22/12: EPS EP study by Dr. Carmen Flores on 03/22/2012 for evaluation of wide-complex tachycardia in the setting of normal ejection fraction revealed normal HV interval but no evidence of any AH jump suggestive of dual AV node physiology and no tachycardia was induced. This was followed up with [facility] with [facility] protocol which was negative for inducible [...] CATHETERIZATION CARDIOVERSION HAND SURGERY (more content not included)...[facility] 11-05-2021 History of Present illness Narrative* Haresh Pineda MD - 11/05/2021 5:19 PM EDT This note was created using AppLabsriter. AAOS AMB SF ORT MST FU Advanced: Did this patient have an adverse event since their last encounter?: No * Haresh Pineda MD - 11/05/2021 4:07 PM EDT Orthopaedic Surgery Follow-Up Clinic Note Surgery/Date: 08/27/2017 1. 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 (CPT 95580 - 22) 2. Placement of Prophylactic Carbon Fiber Tibial Nail, Right Tibia (CPT 67510) 3. High Speed [place] and Adjuvant Treatment with 10% H202 (CPT 67304) 4. Neruolysis and Dissection of Deep Peroneal Nerve (CPT 44366) 5. 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 Exam: RLE -- largely unchanged compared [...] the date of the service which included [id number] patient care, completing clinical documentation, obtaining and/or reviewing separately obtained history, performing a medically appropriate examination, counseling and educating the patient/family/caregiver, ordering medications, tests, or procedures, independently interpreting results (not separately reported) and communicating results to the patient/family/caregiver. Any information added by medical student, resident, nurse, TELEGRAPH OFFICE MANAGER/PAAnders that I have placed my signature directly below I have verified and either instructed them to document in a scribe function or document appropriately in the chart during the patient visit. Haresh Pineda MD microarray specialist, [facility], Division of Musculoskeletal Oncology Co-Director of Sarcoma Care, [facility] Pager: [phone] November 05, 2021 5:18 PM documented in this encounterW[facility]07-19-2022 History of Present illness Narrative* RT [...] IV DATA: Not applicable SIGNED BY: RT Stanford(Caro) November 05, 2021 2:49 PM documented in this encounterWvumed[facility]06-23-2022 NotePROCEDURE: XR FOREARM LT 2 VIEWS [...] Electronically authenticated by: TIFFANY GUPTA Date: 2021-10-10 12:28[facility] note* 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, site unspecified [facility]* 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, site unspecified [facility]* 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, site unspecified [facility]* Diagnosis Chronic pain of left ankle- Primary [facility] encounter [facility] noteNo InformationNortEinstein [facility] OMGP[facility] Other History general Narrative - Reported* Type [...] Trigger Finger Release 2006 Surgical History Colonoscopy 2010 Surgical History LHC 2011 Surgical History Cardiac Ablation 2011 Surgical History Removal FB Right Hand 2015 Surgical History Resected Bone Right Tibia w/ ro d insertion 2018 Hospitalization History see surgical hx [facility] Other Reason for referral (narrative)* Diagnostic Procedure Only (Routine) - Pending Review Specialty Diagnoses / Procedures Referred By Contac t Referred To Contact XR IMAGING Diagnoses Chondrosarcoma (HCC) Procedures XR TIBIA FIBULA 2V AP/LAT RIGHT RADIOLOGIC EXAMINATION TIBIA & FIBULA 2 VIEWS Haresh Pineda MD [address] [place] [address] Xr Imaging Referral ID Status Reason Start Date Expiration Date Visits Requested Visits Authorized [id number] Pending Review Auto-Generat ed Referral 11/05/2022 12/05/2022 1 1 [facility] for referral (narrative)* Diagnostic Procedure Only (Routine) - Pending Review Specialty Diagnoses / Procedures Referred By Tigre kilpatrick Referred To Contact XR IMAGING Diagnoses Chondrosarcoma (HCC) Procedures XR TIBIA FIBULA 2V AP/LAT RIGHT RADIOLOGIC EXAMINATION TIBIA & FIBULA 2 VIEWS Haresh Pineda MD [address] [place] [address] Xr Imaging Referral ID Status Reason Start Date Expiration Date Visits Requested Visits Authorized [id number] Pending Review Auto-Generat ed Referral 11/17/2022 12/17/2023 1 1 [facility] for referral (narrative)* Diagnostic Procedure Only (Routine) - Authorized Specialty Diagnoses / Procedures Referred By Tigre kilpatrick Referred To Contact XR IMAGING Diagnoses Chronic pain of left ankle Procedures XR ANKLE GENERAL 3V AP/LAT/OBL LEFT RADEX ANKLE COMPLETE MINIMUM 3 VIEWS Valeri Quintero PA-C [address] [address] Xr Imaging [facility] Referral ID Status Reason Start Date Expiration Date Visits Requested Visits Authorized [id number] Authorized Auto-Generat ed Referral 01/12/2023 02/11/2024 1 1 [facility] Summary Purpose Family History No Family History Records FoundNo Family History Records FoundNo Family History Records FoundNo Family History Records FoundNo Family History Records FoundNo Family History Records Found Advance Directives No Advanced Directives Records FoundDocuments on File Type Date Recorded Patient Summer Counselor Expl anation Advance Directive(s) Advance Directive(s) 09/02/2018 11:24 AM Advance Directive(s) 08/26/2018 2:02 PM Advance Directive(s) 08/24/2017 2:28 PM Documents on File Type Date Recorded Patient Summer Counselor Expl anation Advance Directive(s) Advance Directive(s) 09/02/2018 11:24 AM Advance Directive(s) 08/26/2018 2:02 PM Advance Directive(s) 08/24/2017 2:28 PM Documents on File Type Date Recorded Patient Summer Counselor Expl anation Advance Directive(s) 08/24/2017 2:28 PM Additional Source Comments (unrecognized sect ion and content) No Status Records FoundNo Status Records FoundNo Status Records FoundNo Status Records FoundNo Status Records FoundNo Status Records Found INFORMATION SOURCE (unrecogn ized section and content) DATE CREATED AUTHOR 11/10/2017 [facility] [facility] DATE CREATED AUTHOR AUTHOR'S ORGANIZ ATION 06/26/2022 [facility] DATE CREATED AUTHOR AUTHOR'S ORGANIZ ATION 01/21/2023 [facility] DATE CREATED AUTHOR AUTHOR'S ORGANIZ ATION 01/21/2023 [facility] DATE CREATED AUTHOR AUTHOR'S ORGANIZ ATION 03/31/2023 [facility] dical [facility] EPIC DATE CREATED AUTHOR AUTHOR'S ORGANIZ ATION 11/14/2023 [facility] Source Comments (unrecognize d section and content) In the event this informatio n is protected by the Federal Confidentiality of Alcohol and Drug Abuse Patient Records regulations: The Federal rules restrict any use of the information to criminally investigate or prosecute any alcohol or drug abuse patient.[facility] the event this information is protected by the Federal Confidentiality of Alcohol and Drug Abuse Patient Records regulations: The Federal rules restrict any use of the information to criminally investigate or prosecute any alcohol or drug abuse patient.[facility] the event this information is protected by the Federal Confidentiality of Alcohol and Drug Abuse Patient Records regulations: The Federal rules restrict any use of the information to criminally investigate or prosecute any alcohol or drug abuse patient.[facility] the event this information is protected by the Federal Confidentiality of Alcohol and Drug Abuse Patient Records regulations: The Federal rules restrict any use of the information to criminally investigate or prosecute any alcohol or drug abuse patient.[facility] Reason for Visit (unrecogniz ed section and content) Reason Comments Follow Up Reason Comments Radio Gen A21 Care Teams (unrecognized sec tion and content) [employer] Relationship Specialty Start Date End Date Alvin Contreras DO [address] [id number] PCP - General Internal Medicine 06/19/17 [employer] Relationship Specialty Start Date End Date Alvin Contreras DO [address] [place] [address] PCP - General Internal Medicine 06/19/17 [employer] Relationship Specialty Start Date End Date Alvin Contreras DO [address] [place] [address] PCP - General Internal Medicine 06/19/17 FOR [...] BE BASED ON THE PRIMARY CLINICAL RECORDS. [facility] [employer] [facility]. provides no warranty or guarantee of the accuracy or completeness of information in this document.
== END 2023-11-24 12:42 | disposition home or self-care (01) ==
PROVIDERS: PCP Internal Medicine; Visit Provider Nurse Practitioner Family
DX: I48.0 Paroxysmal atrial fibrillation (principal)
CPT/HCPCS: 93306

== ENCOUNTER 2023-12-01 09:55 | Outpatient (OUT) | payer MEDICARE, OTHER, SELFPAY ==
--- OUTSIDE RECORDS SUMMARY | 2023-12-01 10:00 | XMS_ITS | CCD ---
Author Organization [facility] Care Team Providers Care Senior Storage Engineer Name Role Phone PHYSICIAN, DEFAULT Unavailable Unavailable [...] Admitting Unavailable TERESITA, DR QUINTEROS Attending Unavailable TERESIAT, DR QUINTEROS Primary Care Unavailable TERESITA, DR [...] (2 sources) meperidine Drug Allergy 4 [facility] Repository (5 sources) Penicillins; Translations: [PENICILLINS] Drug allergy (disorder) 2 AOF [facility] Repository (4 sources) Penicillins Drug Allergy 4 Hives [facility] (6 sources) Insects Extract; Translations: [INSECTS EXTRACT] Drug Allergy 1 Other: See Comments [facility] (2 sources) atorvastatin Drug Allergy Unknown [facility] Other (2 sources) Penicillin Drug Allergy Unknown [facility] Other (2 sources) Substance with penicillin structure and antibacterial mechanism of action (substance) Drug allergy Unknown [facility] Other (1 source) carvedilol; Translations: [CARVEDILOL] Drug Allergy 3 [facility] Repository (1 source) Meperidine; Translations: [MEPERIDINE] Drug Allergy 8 [facility] (1 source) Metoprolol; Translations: [METOPROLOL] Drug Allergy 3 [facility] Rep[facility] (1 source) nebivolol; Translations: [NEBIVOLOL] Drug Allergy 3 [facility] Repository Medications Current Medications Medication Drug Class(es) Dates Sig (Normalized) Sig (Original) amLODIPine 10 mg oral tablet (6 sources) Dihydropyridine Calcium Channel Lisa Start: 11-21-2020 take 1 tablet by mouth once daily amLODIPine Besylate 10MG amLODIPine Besylate 10MG, 1 (one) Tablet Tablet Tablet Tablet daily # 0, 11/21/2020, No Refill. Active Oral daily *Pick strength-form from [employer] for eRX* Nov, Active Start: 08-02-2018 take 4 tablets by mo [facility] twice daily amLODIPine (NORVASC) 2.5 [...] Oral two times daily *Pick strength-form from [facility] for eRX* Mar, Active Start: 10-08-2021 flecainide (TA MBOCOR) 100 mg tablet Losartan Potassium-HCTZ 100-25MG (2 sources) Start: 04-04-2022 Losartan Potas sium-HCTZ 100-25MG Losartan Potassium-HCTZ( 100-25MG Oral ) Active -Hx Entry Oral *Pick strength-form from [facility] for eRX* Mar, Active Completed/Discontinued Medications Medication [...] 06-30-2019 Episodic Other aftercare (1 source) Other care home (current) drug therapy; Translations: [OTH HORTICULTURAL AGENT CURRENT DRUG THERAPY] Onset: 02-12-2022 Episodic Other [...] Range Facility Office Visiton 11-10-2023 Follow-up visit [id number] Lucinda Sharma 1950 M Date Provider Department Center 11/10/2023 DREA STOVALL ARAM [facility] Family History Problem Relation Age of Onset Coronary artery disease Other Hypertension Other Family Status - Relation Status Age at Other Level of Service:90090 MO OFFICE/OUTPATIENT ESTABLISHED MOD MDM 30 MIN Reason for Visit and Comments: Atrial Fibrillation [80] Normal [facility] Orders Onlyon 05-29-2023 Orders Only [id number] Lucinda Sharma 1950 M Date Provider Department Center 05/29/2023 J CARLOS VICTOR ARAM [facility] Family History Problem Relation Age of Onset Coronary artery disease Other Hypertension Other Family Status - Relation Status Age at Other Normal [facility] CNOVon 01-13-2023 CNOV Office Visit (ORFWHP ) BANG SHARMA ([id number]) 1950 M Date Time Provider Department 01/13/23 2:30 PM HARSEH PINEDA ORFWHP During your visit today, we recorded the following information about you: Haresh Pineda MD 01/13/2023 4:19 PM Signed Orthopaedic Surgery Follow-Up Clinic Note Surgery/Date: 08/27/2017 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 (CPT 65969 - 22) Placement of Prophylactic Carbon Fiber Tibial Nail, Right Tibia (CPT 16035) High Speed [place] and Adjuvant Treatment with 10% H202 (CPT 40496) Neruolysis and Dissection of Deep Peroneal Nerve (CPT 51114) Right Iliac Crest [place]row Aspiration/[place] ( CPT 37510) Diagnosis: Right Tibial Diaphysis Cartilage Lesion with [...] the date of the service which included [id number] patient care, completing clinical documentation, obtaining and/or [...] information added by medical student, resident, nurse, ELECTRONICS SPECIALIST/PA-C that I have placed my signature directly below I have verified and either instructed them to document in a scribe function or document appropriately in the chart during the patient visit. Haresh Beavers (more content not included)... Normal [facility] XR ANKLE 3V AP/LAT/OBL LTon 01-13-2023 XR ANKLE 3V AP/LAT/OBL LT * * *Final Report* * * DATE OF EXAM: Jan 13 2023 2:19PM AOX 5298 - XR ANKLE 3V AP/LAT/OBL LT / PROCEDURE REASON: multiple diagnoses * * * * Physician Interpretation * * * * HISTORY: Chondrosarcoma (HCC) TECHNOLOGIST PROVIDED HISTORY (if applicable): follow up right lower leg (accession [id number]), left ankle pain and popping sensation (accession [id number]) TECHNIQUE: XR TIBIA FIBULA 2V AP/LAT RT, [...] SIGNIFICANT CHANGE. NO RADIOGRAPHIC SIGNS OF RECURRENCE. Environmental Professional: BARBARA Transcribe Date/Time: Jan 13 2023 4:43P Dictated by : JULISA WEAVER MD This examination was interpreted and the report reviewed and electronically signed by: JULISA WEAVER MD on Jan 13 2023 4:53PM EST [id number] Normal [facility] XR CHEST 2V FRONTAL/LATon XR [...] tissues: Spine degenerative changes IMPRESSION: See result Environmental Professional: BARBARA Transcribe Date/Time: Jan 15 2023 3:13P Dictated by : RIKKI PEDERSEN MD This examination was interpreted and the report reviewed and electronically signed by: RIKKI PEDERSEN MD on Jan 15 2023 3:14PM EST [id number] Normal [facility] XR TIBIA FIBULA 2V AP/LAT [...] applicable): follow up right lower leg (accession [id number]), left ankle pain and popping sensation (accession [id number]) TECHNIQUE: XR TIBIA FIBULA 2V AP/LAT RT, [...] SIGNIFICANT CHANGE. NO RADIOGRAPHIC SIGNS OF RECURRENCE. Environmental Professional: PSCB Transcribe Date/Time: Jan 13 2023 4:43P Dictated by : JULISA WEAVER MD This examination was interpreted and the report reviewed and electronically signed by: JULISA WEAVER MD on Jan 13 2023 4:53PM EST [id number] Normal [facility] Office Visiton 12-16-2022 Follow-up visit [id number] Lucinda Sharma 1950 M Date Provider Department Center 12/16/2022 Jadyn-LYDIA JENKINS [facility] Family History Problem Relation Age of Onset Coronary artery disease Other Hypertension Other Family Status - Relation Status Age at Other Level of Service:88342 MO OFFICE/OUTPATIENT ESTABLISHED HIGH MDM 40-54 MIN Normal [facility] FLECAINEon 06-24-2022 FLECAINIDE 0.39 ug/ml Normal 0.20 - 1.00 [facility] Comment on above: Result Comment: Flec ainide reported as flecainide acetate. The reference range also is defined as flecaininde acetate. This test was developed and its performance characteristics determined by [employer]. It has not been cleared or approved by the Food and Drug Administration. Performed By: #### T SH, BMP, LIPID, ALT #### [facility] [address] [place] [address] Dr. Fidel Paige CBC AUTO DIFFon 06-09-2022 BASO # 0.0 103/ul Normal 0.0-0.1 [facility] Comment on above: Performed By: #### C BC #### [facility] [address] [place] [address] Dr. Fidel Paige Basophils/100 WBC (Bld) 0.6 % Normal 0.2-2.0 [facility] Comment on above: Performed By: #### C BC #### [facility] [address] [place] [address] Dr. Fidel Paige EO # 0.1 103/ul Normal 0.0-0.[address] [facility] Comment on above: Performed By: #### C BC #### [facility] [address] [place] [address] Dr. Fidel Paige Eosinophils/100 WBC (Bld) 2.8 % Normal 0.9-7.0 [facility] Comment on above: Performed By: #### C BC #### [facility] [address] [place] [address] Dr. Fidel Paige Erythrocyte distribution width (RBC) [Ratio] 12.8 % Normal 11.0-15.0 [facility] Comment on above: Performed By: #### C BC #### [facility] [address] [place] [address] Dr. Fidel Paige Hematocrit (Bld) [Volume fraction] 41.9 % Critically low 42.0-54.0 [facility] Comment on above: Performed By: #### C BC #### [facility] [address] [address] [address] Fidel Paige Hemoglobin (Bld) [Mass/Vol] 14.1 g/dL Normal 14.0-18.0 [facility] Comment on above: Performed By: #### C BC #### [facility] [address] [address] [address] Fidel Paige IG # 0.01 10e3/ul Normal 0.00-0.03 [facility] Comment on above: Performed By: #### C BC #### [facility] [address] [place] [address] Dr. Fidel Paige IG % 0.2 % Normal 0.0-0.5 [facility] Comment on above: Performed By: #### C BC #### [facility] [address] [place] [address] Dr. Fidel Paige LYMPH # 1.4 103/ul Normal 1.2-3.8 [facility] Comment on above: Performed By: #### C BC #### [facility] [address] [place] [address] Dr. Fidel Paige Lymphocytes/100 WBC (Bld) 29.2 % Normal 20.5-60.0 [facility] Comment on above: Performed By: #### C BC #### [facility] [address] [place] [address] Dr. Fidel Paige MANUAL DIFF REQ NO Normal [facility] Comment on above: Performed By: #### C BC #### [facility] [address] [place] [address] Dr. Fidel Paige MCH (RBC) [Entitic mass] 31.3 pg Normal 25.9-34.0 [facility] Comment on above: Performed By: #### C BC #### [facility] [address] [place] [address] Dr. Fidel Paige MCHC (RBC) [Mass/Vol] 33.7 g/dL Normal 29.9-35.2 [facility] Comment on above: Performed By: #### C BC #### [facility] [address] [address] [address] Fidel Paige MCV (RBC) [Entitic vol] 92.9 fL Normal 80.0-94.0 [facility] Comment on above: Performed By: #### C BC #### [facility] [address] [address] [address] Fidel Paige MONO # 0.7 103/ul Normal 0.3-0.8 [facility] Comment on above: Performed By: #### C BC #### [facility] [address] [address] [address] Fidel Paige Monocytes/100 WBC (Bld) 13.4 % Critically high 1.7-12.0 [facility] Comment on above: Performed By: #### C BC #### [facility] [address] [address] [address] Fidel Paige NEUT # 2.7 103/ul Normal 1.4-6.5 [facility] Comment on above: Performed By: #### C BC #### [facility] [address] [address] [address] Fidel Paige Neutrophils/100 WBC (Bld) 53.8 % Normal 43.0-75.0 [facility] Comment on above: Performed By: #### C BC #### [facility] [address] [address] [address] Fidel Paige Platelet mean volume (Bld) [Entitic vol] 8.7 fL Critically low 9.5-13.5 [facility] Comment on above: Performed By: #### C BC #### [facility] [address] [address] [address] Fidel Paige PLT 278 103/ul Normal 150-[address] [facility] Comment on above: Performed By: #### C BC #### [facility] [address] [address] [address] Fidel Paige RBC 4.51 106/ul Critically low 4.70-6.[address] [facility] Comment on above: Performed By: #### C BC #### [facility] [address] [place] [address] Dr. Fidel Paige WBC 4.9 103/ul Normal 4.0-11.0 [facility] Comment on above: Performed By: #### C BC #### [facility] [address] [place] [address] Dr. Fidel Paige MAGNESIUMon 06-09-2022 Magnesium [Mass/Vol] 2.0 mg/dL Normal 1.8-2.4 [facility] Comment on above: Performed By: #### T SH, MG, BMP #### [facility] [address] [place] [address] Dr. Fidel Paige PROF CHEM 8 (BAS METB)on Anion gap [Moles/Vol] 8.2 mmol/L Normal [facility] Comment on above: Performed By: #### T SH, MG, BMP #### [facility] [address] [place] [address] Dr. Fidel Paige Calcium [Mass/Vol] 10.2 mg/dL Critically high 8.5-10.1 [facility] Comment on above: Performed By: #### T SH, MG, BMP #### [facility] [address] [place] [address] Dr. Fidel Paige Chloride [Moles/Vol] 105 mmol/L Normal 98-107 [facility] Comment on above: Performed By: #### T SH, MG, BMP #### [facility] [address] [place] [address] Dr. Fidel Paige CO2 [Moles/Vol] 29.6 mmol/L Normal 21.0-32.0 [facility] Comment on above: Performed By: #### T SH, MG, BMP #### [facility] [address] [place] [address] Dr. Fidel Paige Creatinine [Mass/Vol] 0.81 mg/dL Normal 0.70-1.30 [facility] Comment on above: Performed By: #### T SH, MG, BMP #### [facility] [address] [place] [address] Dr. Fidel Paige EGFR-AF BENINESE >60 Normal >=60 [facility] Comment on above: Performed By: #### T SH, MG, BMP #### [facility] [address] [place] [address] Dr. Fidel Paige EGFR-NON AF BENINESE >60 Normal >=[address] [facility] Comment on above: Performed By: #### T SH, MG, BMP #### [facility] [address] [place] [address] Dr. Fidel Paige Glucose [Mass/Vol] 100 mg/dL Normal 74-106 [facility] Comment on above: Performed By: #### T SH, MG, BMP #### [facility] [address] [place] [address] Dr. Fidel Paige Potassium [Moles/Vol] 3.8 mmol/L Normal 3.5-5.1 [facility] Comment on above: Performed By: #### T SH, MG, BMP #### [facility] [address] [place] [address] Dr. Fidel Paige Sodium [Moles/Vol] 139 mmol/L Normal 136-145 [facility] Comment on above: Performed By: #### T SH, MG, BMP #### [facility] [address] [place] [address] Dr. Fidel Paige Urea nitrogen [Mass/Vol] 12.0 mg/dL Normal 7.0-18.0 [facility] Comment on above: Performed By: #### T SH, MG, BMP #### [facility] [address] [place] [address] Dr. Fidel Paige Urea nitrogen/Creatinin e [Mass ratio] 14.8 mg/mg Normal [facility] Comment on above: Performed By: #### T SH, MG, BMP #### [facility] [address] [place] [address] Dr. Fidel Paige TSHon 06-09-2022 TSH 0.891 uIU/mL Normal 0.358-3.740 [facility] Comment on above: Performed By: #### T SH, MG, BMP #### [facility] [address] [place] [address] Dr. Fidel Paige CBC AUTO DIFFon 02-07-2022 BASO # 0.0 103/ul Normal 0.0-0.1 [facility] Comment on above: Performed By: #### T SH, BMP, LIPID, ALT #### [facility] [address] [address] [address] Fidel Paige Basophils/100 WBC (Bld) 0.3 % Normal 0.2-2.[address] [facility] Comment on above: Performed By: #### T SH, BMP, LIPID, ALT #### [facility] [address] [address] [address] Fidel Paige EO # 0.1 103/ul Normal 0.0-0.7 [facility] Comment on above: Performed By: #### T SH, BMP, LIPID, ALT #### [facility] [address] [place] [address] Dr. Fidel Paige Eosinophils/100 WBC (Bld) 2.1 % Normal 0.9-7.0 [facility] Comment on above: Performed By: #### T SH, BMP, LIPID, ALT #### [facility] [address] [address] [address] Fidel Paige Erythrocyte distribution width (RBC) [Ratio] 13.1 % Normal 11.0-15.0 [facility] Comment on above: Performed By: #### T SH, BMP, LIPID, ALT #### [facility] [address] [address] [address] Fidel Paige Hematocrit (Bld) [Volume fraction] 45.2 % Normal 42.0-54.0 [facility] Comment on above: Performed By: #### T SH, BMP, LIPID, ALT #### [facility] [address] [place] [address] Dr. Fidel Paige Hemoglobin (Bld) [Mass/Vol] 14.8 g/dL Normal 14.0-18.0 [facility] Comment on above: Performed By: #### T SH, BMP, LIPID, ALT #### [facility] [address] [place] [address] Dr. Fidel Paige IG # 0.02 10e3/ul Normal 0.00-0.[address] [facility] Comment on above: Performed By: #### T SH, BMP, LIPID, ALT #### [facility] [address] [place] [address] Dr. Fidel Paige IG % 0.3 % Normal 0.0-0.5 [facility] Comment on above: Performed By: #### T SH, BMP, LIPID, ALT #### [facility] [address] [place] [address] Dr. Fidel Paige LYMPH # 1.4 103/ul Normal 1.2-3.[address] [facility] Comment on above: Performed By: #### T SH, BMP, LIPID, ALT #### [facility] [address] [place] [address] Dr. Fidel Paige Lymphocytes/100 WBC (Bld) 23.2 % Normal 20.5-60.0 [facility] Comment on above: Performed By: #### T SH, BMP, LIPID, ALT #### [facility] [address] [place] [address] Dr. Fidel Paige MANUAL DIFF REQ NO Normal [facility] Comment on above: Performed By: #### T SH, BMP, LIPID, ALT #### [facility] [address] [place] [address] Dr. Fidel Paige MCH (RBC) [Entitic mass] 31.6 pg Normal 25.9-34.[address] [facility] Comment on above: Performed By: #### T SH, BMP, LIPID, ALT #### [facility] [address] [place] [address] Dr. Fidel Paige MCHC (RBC) [Mass/Vol] 32.7 g/dL Normal 29.9-35.[address] [facility] Comment on above: Performed By: #### T SH, BMP, LIPID, ALT #### [facility] [address] [place] [address] Dr. Fidel Paige MCV (RBC) [Entitic vol] 96.6 fL Critically high 80.0-94.[address] [facility] Comment on above: Performed By: #### T SH, BMP, LIPID, ALT #### [facility] [address] [place] [address] Dr. Fidel Paige MONO # 0.7 103/ul Normal 0.3-0.8 [facility] Comment on above: Performed By: #### T SH, BMP, LIPID, ALT #### [facility] [address] [place] [address] Dr. Fidel Paige Monocytes/100 WBC (Bld) 11.7 % Normal 1.7-12.[address] [facility] Comment on above: Performed By: #### T SH, BMP, LIPID, ALT #### [facility] [address] [place] [address] Dr. Fidel Paige NEUT # 3.6 103/ul Normal 1.4-6.5 [facility] Comment on above: Performed By: #### T SH, BMP, LIPID, ALT #### [facility] [address] [place] [address] Dr. Fidel Paige Neutrophils/100 WBC (Bld) 62.4 % Normal 43.0-75.[address] [facility] Comment on above: Performed By: #### T SH, BMP, LIPID, ALT #### [facility] [address] [place] [address] Dr. Fidel Paige Platelet mean volume (Bld) [Entitic vol] 8.8 fL Critically low 9.5-13.5 [facility] Comment on above: Performed By: #### T SH, BMP, LIPID, ALT #### [facility] [address] [place] [address] Dr. Fidel Paige PLT 283 103/ul Normal 150-[address] [facility] Comment on above: Performed By: #### T SH, BMP, LIPID, ALT #### [facility] [address] [place] [address] Dr. Fidel Paige RBC 4.68 106/ul Critically low 4.70-6.[address] [facility] Comment on above: Performed By: #### T SH, BMP, LIPID, ALT #### [facility] [address] [place] [address] Dr. Fidel Paige WBC 5.8 103/ul Normal 4.0-11.0 [facility] Comment on above: Performed By: #### T SH, BMP, LIPID, ALT #### [facility] [address] [address] [address] Fidel Paige LIPID PROFILEon 02-07-2022 CHOL-HDL RATIO NORM SEE BELOW Normal [facility] Comment on above: Result Comment: 3.3 - 4.4 LOW RISK 4.4 - 7.1 AVERAGE RISK 7.1 - 11.0 MODERATE RISK >11.0 HIGH RISK Performed By: #### T SH, BMP, LIPID, ALT #### [facility] [address] [address] [address] Fidel Paige Cholesterol [Mass/Vol] 191 mg/dL Normal <=200 [facility] Comment on above: Performed By: #### T SH, BMP, LIPID, ALT #### [facility] [address] [address] [address] Fidel Paige Cholesterol in HDL [Mass/Vol] 42 mg/dL Normal 40-60 [facility] Comment on above: Performed By: #### T SH, BMP, LIPID, ALT #### [facility] [address] [address] [address] Fidel Paige Cholesterol in LDL [Mass/Vol] 118.0 mg/dL Normal [facility] Comment on above: Performed By: #### T SH, BMP, LIPID, ALT #### [facility] [address] [address] [address] Fidel Paige Cholesterol.total/ Cholesterol in HDL [Mass ratio] 4.5 {ratio} Normal [facility] Comment on above: Performed By: #### T SH, BMP, LIPID, ALT #### [facility] [address] [address] [address] Fidel Paige HDL NORMAL > or = 60 mg/dl - LO W CARDIOVASCULAR RISK <40 mg/dl - HIGH CARDIOVASCULAR RISK Normal [facility] Comment on above: Performed By: #### T SH, BMP, LIPID, ALT #### [facility] [address] [address] [address] Fidel Paige LDL CALC NORMAL SEE BELOW Normal [facility] Comment on above: Result Comment: <100 mg/dl OPTIMAL 100 - 129 mg/dl NEAR OR ABOVE OPTIMAL 130 - 159 mg/dl BORDERLINE HIGH 160 - 189 mg/dl HIGH >190 mg/dl VERY HIGH Performed By: #### T SH, BMP, LIPID, ALT #### [facility] [address] [address] [address] Fidel Paige Triglyceride [Mass/Vol] 155 mg/dL Critically high <=[address] [facility] Comment on above: Performed By: #### T SH, BMP, LIPID, ALT #### [facility] [address] [address] [address] Fidel Paige VLDL CALC 31.0 mg/dL Normal [facility] Comment on above: Performed By: #### T SH, BMP, LIPID, ALT #### [facility] [address] [place] [address] Dr. Fidel Paige PROF CHEM 8 (BAS METB)on Anion gap [Moles/Vol] 11.0 mmol/L Normal [facility] Comment on above: Performed By: #### T SH, BMP, LIPID, ALT #### [facility] [address] [address] [address] Fidel Paige Calcium [Mass/Vol] 10.1 mg/dL Normal 8.5-10.1 [facility] Comment on above: Performed By: #### T SH, BMP, LIPID, ALT #### [facility] [address] [address] [address] Fidel Paige Chloride [Moles/Vol] 105 mmol/L Normal 98-[address] [facility] Comment on above: Performed By: #### T SH, BMP, LIPID, ALT #### [facility] [address] [address] [address] Fidel Paige CO2 [Moles/Vol] 29.0 mmol/L Normal 21.0-32.0 [facility] Comment on above: Performed By: #### T SH, BMP, LIPID, ALT #### [facility] [address] [address] [address] Fidel Paige Creatinine [Mass/Vol] 0.85 mg/dL Normal 0.70-1.30 [facility] Comment on above: Performed By: #### T SH, BMP, LIPID, ALT #### [facility] [address] [address] [address] Fidel Paige EGFR-AF BENINESE >60 Normal >=60 [facility] Comment on above: Performed By: #### T SH, BMP, LIPID, ALT #### [facility] [address] [address] [address] Fidel Paige EGFR-NON AF BENINESE >60 Normal >=[address] [facility] Comment on above: Performed By: #### T SH, BMP, LIPID, ALT #### [facility] [address] [place] [address] Dr. Fidel Paige Glucose [Mass/Vol] 101 mg/dL Normal 74-106 [facility] Comment on above: Performed By: #### T SH, BMP, LIPID, ALT #### [facility] [address] [address] [address] Fidel Paige Potassium [Moles/Vol] 4.0 mmol/L Normal 3.5-5.1 [facility] Comment on above: Performed By: #### T SH, BMP, LIPID, ALT #### [facility] [address] [place] [address] Dr. Fidel Paige Sodium [Moles/Vol] 141 mmol/L Normal 136-145 [facility] Comment on above: Performed By: #### T SH, BMP, LIPID, ALT #### [facility] [address] [place] [address] Dr. Fidel Paige Urea nitrogen [Mass/Vol] 13.0 mg/dL Normal 7.0-18.0 [facility] Comment on above: Performed By: #### T SH, BMP, LIPID, ALT #### [facility] [address] [place] [address] Dr. Fidel Paige Urea nitrogen/Creatinin e [Mass ratio] 15.3 mg/mg Normal [facility] Comment on above: Performed By: #### T SH, BMP, LIPID, ALT #### [facility] [address], [place] [address] Dr. Fidel Paige SGPTon 02-07-2022 ALT [Catalytic activity/Vol] 26 U/L Normal 16-63 [facility] Comment on above: Performed By: #### T SH, BMP, LIPID, ALT #### [facility] [address], [place] [address] Dr. Fidel Paige TSHon 02-07-2022 TSH 0.856 uIU/mL Normal 0.358-3.740 [facility] Comment on above: Performed By: #### T SH, BMP, LIPID, ALT #### [facility] [address], [place] [address] Dr. Fidel Paige XR CHEST 2V FRONTAL/LATon [facility] US VENOUS DOPPLER L Cristian US [...] by: TIFFANY GUPTA Date: 2021-10-10 12:51 Normal [facility] Encounters Encounter Date Encounter Type Care Provider Facility Start: 11-10-2023 End: 11-10-2023 ambulatory [facility] Start: 06-04-2023 End: 06-04-2023 ambulatory Alvin Contreras Other [facility] Start: 06-04-2023 Encounter by sergio Contreras [facility] Start: 05-29-2023 End: 05-29-2023 ambulatory Alvin Contreras Other [facility] Start: 05-29-2023 Telephone encounter Alvin BUNDY [facility] Start: 03-30-2023 End: 03-30-2023 ambulatory NikkiNIKKI Not Available Start: 01-13-2023 End: 01-14-2023 ambulatory HARESH PINEDA Facility:[facility] Start: 01-12-2023 Orders Only Haresh Pineda MD Work Phone: Orthopaedics Comment on above: Chronic pain of left ankle (Primary Dx) Start: 12-16-2022 End: 12-16-2022 ambulatory [facility] Start: 11-17-2022 Orders Only Haresh Pineda MD [...] End: 11-10-2017 Patient encounter DEFAULT PHYSICIAN Facility:[facility] Procedures Date Procedure Procedure Detail Performing Clinician Start: 02-07-[address] JHONATHAN CONTRERAS Comment on above: Performed By: #### T SH, BMP, LIPID, ALT #### [facility] [address] [address] [address] Fidel Paige Start: 11-05-2021 Radiologic exam ches t 2 views Eric Taylor APRN.ELECTRONICS SPECIALIST Work Phone: Start: 11-05-2021 Radiologic examinati on tibia & fibula 2 views Eric Taylor APRN.ELECTRONICS SPECIALIST Work Phone: Start: 06-30-2019 Adult depression scr eening assessment Haresh Pineda MD Work Phone: Plan of Treatment Date Care Activity Detail Author Start: 12-19-2022 Influenza vaccination C [facility] Start: 11-05-2022 End: 12-05-2022 Radiologic exam chest 2 views XR CHEST 2V FRONTAL/LAT Radiology Routine Chondrosarcoma (HCC) Expected: 11/05/2022 (Approximate), Expires: 12/05/2022 [facility] Work Phone: Comment on above: Expected: 11/05/2022 (Approximate), Expires: 12/05/2022 Start: 11-05-2022 End: 12-05-2022 XR TIBIA FIBULA 2V AP/LAT RIGHT XR TIBIA FIBULA 2V AP/LAT RIGHT Radiology Routine Chondrosarcoma (HCC) Expected: 11/05/2022 (Approximate), Expires: 12/05/2022 [facility] Work Phone: Comment on above: Expected: 11/05/2022 (Approximate), Expires: 12/05/2022 Start: 10-25-2022 DIABETES SCREEN DIABETES SCREEN [facility] Start: 10-25-2022 Diabetes Screening Diabetes Screenin g [facility] Start: 04-20-2022 ADVANCE DIRECTIVE DISCUSSION ADVANCE DIRECTIVE DISCUSSION [facility] Start: 04-20-2022 DEPRESSION ASSESSMENT DEPRESSION ASS ESSMENT [facility] Start: 12-19-2021 Influenza vaccination INFLUENZA (#1) [facility] Start: 11-18-2021 COVID-19 VACCINE (5 - Pfizer series) COVID-19 VACCINE (5 - Pfizer series) [facility] Start: 04-20-2021 ADVANCE DIRECTIVE DISCUSSION ADVANCE DIRECTIVE DISCUSSION [facility] Start: 06-29-2020 Adult depression screening assessment DEPRESSION SCREENING [facility] Start: 2014 Pneumococcal Vaccine : 65+ (1 - PCV) Pneumococcal Vaccine: 65+ (1 - PCV) [facility] Start: 2014 PNEUMOCOCCAL: 65+ (1 - PCV) PNEUMOCOCCAL: 65+ (1 - PCV) [facility] Start: 09-19-1999 SHINGRIX VACCINE (1 of 2) SHINGRIX VACCINE (1 of 2) [facility] Start: 1994 COLOGUARD (FIT-DNA) COLOGUARD (FIT-D NA) [facility] Start: 1994 Colonoscopy COLONOSCOPY [facility] Start: 1994 COLORECTAL CANCER SCREENING COLORECTAL CANCER SCREENING [facility] Start: [address] COLONOGRAPHY [facility] Start: 1994 FECAL OCCULT BLOOD FECAL OCCULT BLOO D [facility] Start: 1994 SIG[facility]OS[facility] Start: 1984 Lipid 1996 panel - Serum or Plasma Lipid Screening [facility] Start: 1984 LIPID SCREEN LIPID SCREEN [facility] Start: 1968 Urine microalbumin profile [facility] Start: 09-19-1967 ANNUAL PCP TEAM 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 LEE ANN DISEASE VISIT ANNUAL PCP TEAM CHRONIC DISEASE VISIT [facility] Start: 09-19-1967 BP CONTROLLED (<130/80) BP CONTROLLE D (<130/80) [facility] Start: 09-19-1967 HEPATITIS C SCREENING HEPATITIS C SC REENING [facility] End: 12-17-2023 Radiologic exam chest 2 views XR CHEST 2V FRONTAL/LAT Radiology Routine Chondrosarcoma (HCC) 1 Occurrences starting 11/17/2022 until 12/17/2023 [facility] Work Phone: Comment on above: 1 Occurrences starti ng 11/17/2022 until 12/17/2023 End: 02-11-2024 XR ANKLE GENERAL 3V AP/LAT/OBL LEFT XR ANKLE GENERAL 3V AP/LAT/OBL LEFT Radiology Routine Chronic pain of left ankle 1 Occurrences starting 01/12/2023 until 02/11/2024 [facility] Work Phone: Comment on above: 1 Occurrences starti ng 01/12/2023 until 02/11/2024 End: 12-17-2023 XR TIBIA FIBULA 2V AP/LAT RIGHT XR TIBIA FIBULA 2V AP/LAT RIGHT Radiology Routine Chondrosarcoma (HCC) 1 Occurrences starting 11/17/2022 until 12/17/2023 [facility] Work Phone: Comment on above: 1 Occurrences starti ng 11/17/2022 until 12/17/2023 XR TIBIA FIBULA 2V AP/LAT RT XR TIBIA FIBULA 2V AP/LAT RT Radiology Routine Chondrosarcoma (HCC) 11/05/2021 2:50 PM EDT [facility] Work Phone: [facility] Immunizations Immunization Date Immunization Notes Care Provider Omar tilley 02-10-2022 influenza virus vaccine, split virus (incl. purified surface antigen) Alvin Contreras Other [facility] 05-29-2020 COVID-19 Vaccine Pfi zer - Documentation Purposes Only Alvin Contreras Other [facility] 10-02-2016 diphtheria, tetanus toxoids and acellular pertussis vaccine, unspecified formulation Alvin Contreras Other [facility] 03-23-2016 pneumococcal conjuga te vaccine, 13 valent Alvin Contreras Other [facility] 03-01-2009 pneumococcal polysaccharide vaccine, 23 valent Alvin Contreras Other [facility] Other 02-25-2006 diphtheria, tetanus toxoids and acellular pertussis vaccine, unspecified formulation Alvin Contreras Other [facility] Other Payers Date Payer Category Payer Medicare MEDICARE MEDICAR E A AND B [id number] 2014-Present [phone] [address] [address] [place] [address] Medicare [id number] 2014 Medicare MEDICARE RAILROA D MEDICARE RAILROAD PB ONLY [id number] 2014-Present [phone] [address] [address] [place] [address] Medicare [id number] 2014 Unknown 2014 Unknown [employer] 2N D [id number] 2014-Present [phone] [address] [address] [place] [address] Indemnity [id number] 2014 Unknown [id number] 1959 Medicare [id number] 1959 Unknown [id number] 1949 Unknown [id number] 1949 Unknown [id number] 1949 Unknown [id number] 3 1949 Unknown [id number] Social History Date Type Detail Facility Start: 07-17-2017 Tobacco smoking stat [facility] Never smoked tobacco [facility] Start: 07-17-2017 Tobacco use and exposure Smoke less tobacco non-user [facility] Start: 1950 Sex Assigned At Male [facility] Start: 10-26-2021 End: 11-05-2021 Exposure to SARS-CoV-2 (event) Not sure [facility] Start: 06-30-2019 End: 05-18-2022 History of Social function [facility] Start: 06-30-2019 End: 05-18-2022 Area Deprivation Index [facility] National Score (1-10 0), lower number is lower risk 60 [facility] Start: 11-23-2019 Sexual orientation Heterosexual (dirk gibson) [facility] Medical Equipment Procedure Code Equipment Code Equipment Origin al Text Equipment Identifier Dates Graft Enhance Demineralized Cortical Fiber Bone Allograft Dehydrate 2.5ml - [id number] Start: 08-27-2017 Graft Cancellous Chips Bone Void Freeze Dry 30ml (1.7-10mm) - [id number] Start: 08-27-2017 Graft Dbx Bone V oid Allograft Freeze Dried Putty 1ml - [id number] Start: 08-27-2017 Tibial Nail [id number] Start: 08-27-2017 Carbofix Titaniumscrew [id number] S tart: 08-27-2017 Carbofix Titaniu m Screw [id number] Start: 08-27-2017 Carbofix Titaniu m Screw [id number] Start: 08-27-2017 Carbofix Titaniu m Screw [id number] Start: 08-27-2017 Carbofix Titaniu m Screw [id number] Start: 08-27-2017 Clinical Notes 10-10-2021 to 11-10-2023 Note Date & Type Note Facility 11-10-2023 Note Cardiovascular Medic [facility] SUBJECTIVE Chief Complaint Patient presents with [...] This was followed up with [facility] with [facility] protocol which was negative for inducible arrhythmias [...] (260 lb) SpO2 (more content not included)... [facility] 11-10-2023 Note Patient here today w ith [...] All other systems reviewed and are negative. [facility] 05-29-2023 Evaluation note Encounter Date Diagnosis Assessment Notes May, Anemia (ICD-10 - D64.9) [facility] 09-26-2023 NoteHNO ID: [id number] Author: Keri Lopez RN Service: ? Author Type: Registered Nurse Type: Progress Notes Filed: 01/13/2023 4:19 PM Note Text: I served as a scribe during this office visit encounter. [facility] NoteHNO ID: [id number] Author: Ranjith Teixeira RT(Caro) Service: Radiology Author [...] BY: RT Mariel(Caro) January 13, 2023 2:20 [facility]09-26-2023 NoteHNO ID: [id number] Author: Haresh Pineda MD Service: ? 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 (CPT 59337 - 22) Placement of Prophylactic Carbon Fiber Tibial Nail, Right Tibia (CPT 03593) High Speed Ehsan and Adjuvant Treatment with 10% H202 (CPT 56202) Neruolysis and Dissection of Deep Peroneal Nerve (CPT 68740) Right Iliac Crest Marrow Aspiration/[place] ( CPT 41792) Diagnosis: Right Tibial Diaphysis Cartilage Lesion with [...] the date of the service which included [id number] patient care, completing clinical documentation, obtaining and/or [...] information added by medical student, resident, nurse, ELECTRONICS SPECIALIST/PAJayC that I have placed my signature directly below I have verified and either instructed them to document in a scribe function or document appropriately in the chart during the patient visit. Haresh Pineda MD motorcycle technician, [facility], Division of Musculoskeletal Oncology Co-Director of Sarcoma Care, [facility] Pager: [phone] (more content not included)...[facility] [id number] [facility]2023 NoteUT Electrophysiology Consult Note Reason for [...] This was followed up with [facility] with [facility] protocol which was negative for inducible arrhythmias [...] CVL report IMPRESSION: Successful direct-current cardioversion with samaritan of sinus rhythm from atrial fibrillation with no immediate complication. 03/22/12: EPS EP study by Dr. Carmen Flores on 03/22/2012 for evaluation of wide-complex tachycardia in the setting of normal ejection fraction revealed normal HV interval but no evidence of any AH jump suggestive of dual AV node physiology and no tachycardia was induced. This was followed up with [facility] with [facility] protocol which was negative for inducible arrhythmias [...] CATHETERIZATION CARDIOVERSION HAND SURGERY (more content not included)...[facility] 11-05-2021 History of Present illness Narrative* Haresh Pineda MD - 11/05/2021 5:19 PM EDT This note was created using [employer]. AAOS AMB SF ORT MST FU Advanced: Did this patient have an adverse event since their last encounter?: No * Haresh Pineda MD - 11/05/2021 4:07 PM EDT Orthopaedic Surgery Follow-Up Clinic Note Surgery/Date: 08/27/2017 1. 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 (CPT 94450 - 22) 2. Placement of Prophylactic Carbon Fiber Tibial Nail, Right Tibia (CPT 16370) 3. High Speed [place] and Adjuvant Treatment with 10% H202 (CPT 55010) 4. Neruolysis and Dissection of Deep Peroneal Nerve (CPT 04477) 5. 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 Exam: RLE -- largely unchanged compared [...] the date of the service which included [id number] patient care, completing clinical documentation, obtaining and/or reviewing separately obtained history, performing a medically appropriate examination, counseling and educating the patient/family/caregiver, ordering medications, tests, or procedures, independently interpreting results (not separately reported) and communicating results to the patient/family/caregiver. Any information added by medical student, resident, nurse, ELECTRONICS SPECIALIST/PAAnders that I have placed my signature directly below I have verified and either instructed them to document in a scribe function or document appropriately in the chart during the patient visit. 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, site unspecified documented in this encounter [facility] note* 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, site unspecified documented in this encounter [facility] note* 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, site unspecified documented in this encounter [facility] note* Diagnosis Chronic pain of left ankle- Primary documented in this encounter [facility] noteNo InformationNortLECOM [facility] [employer] Other History general Narrative - Reported* Type [...] insertion 2018 Hospitalization History see surgical hx [facility] [employer] Other Reason for referral (narrative)* Diagnostic Procedure Only (Routine) - Pending Review Specialty Diagnoses / Procedures Referred By Contac t Referred To Contact XR IMAGING Diagnoses Chondrosarcoma (HCC) Procedures XR TIBIA FIBULA 2V AP/LAT RIGHT RADIOLOGIC EXAMINATION TIBIA & FIBULA 2 VIEWS Haresh Pineda MD [address] [place] [address] Xr Imaging Referral ID Status Reason Start Date Expiration Date Visits Requested Visits Authorized [id number] Pending Review Auto-Generat ed Referral 11/05/2022 12/05/2022 1 1 [facility] for referral (narrative)* Diagnostic Procedure Only (Routine) - Pending Review Specialty Diagnoses / Procedures Referred By Tigre kilpatrick Referred To Contact XR IMAGING Diagnoses Chondrosarcoma (HCC) Procedures XR TIBIA FIBULA 2V AP/LAT RIGHT RADIOLOGIC EXAMINATION TIBIA & FIBULA 2 VIEWS Haresh Pineda MD [address] [place] [address] Xr Imaging Referral ID Status Reason Start Date Expiration Date Visits Requested Visits Authorized [id number] Pending Review Auto-Generat ed Referral 11/17/2022 12/17/2023 1 1 [facility] for referral (narrative)* Diagnostic Procedure Only (Routine) - Authorized Specialty Diagnoses / Procedures Referred By Tigre kilpatrick Referred To Contact XR IMAGING Diagnoses Chronic pain of left ankle Procedures XR ANKLE GENERAL 3V AP/LAT/OBL LEFT RADEX ANKLE COMPLETE MINIMUM 3 VIEWS Valeri Quintero PA-C [address] [address] Xr Imaging [facility] Referral ID Status Reason Start Date Expiration Date Visits Requested Visits Authorized [id number] Authorized Auto-Generat ed Referral 01/12/2023 02/11/2024 1 1 [facility] Summary Purpose Family History No Family History Records FoundNo Family History Records FoundNo Family History Records FoundNo Family History Records FoundNo Family History Records FoundNo Family History Records Found Advance Directives No Advanced Directives Records FoundDocuments on File Type Date Recorded Patient Gaming Associate Expl anation Advance Directive(s) Advance Directive(s) 09/02/2018 11:24 AM Advance Directive(s) 08/26/2018 2:02 PM Advance Directive(s) 08/24/2017 2:28 PM Documents on File Type Date Recorded Patient Gaming Associate Expl anation Advance Directive(s) Advance Directive(s) 09/02/2018 11:24 AM Advance Directive(s) 08/26/2018 2:02 PM Advance Directive(s) 08/24/2017 2:28 PM Documents on File Type Date Recorded Patient Gaming Associate Expl anation Advance Directive(s) 08/24/2017 2:28 PM Additional Source Comments (unrecognized sect ion and content) No Status Records FoundNo Status Records FoundNo Status Records FoundNo Status Records FoundNo Status Records FoundNo Status Records Found INFORMATION SOURCE (unrecogn ized section and content) DATE CREATED AUTHOR 11/10/2017 [facility] DATE CREATED AUTHOR AUTHOR'S ORGANIZ ATION 06/26/2022 [facility] DATE CREATED AUTHOR AUTHOR'S ORGANIZ ATION 01/21/2023 [facility] DATE CREATED AUTHOR AUTHOR'S ORGANIZ ATION 01/21/2023 [facility] DATE CREATED AUTHOR AUTHOR'S ORGANIZ ATION 03/31/2023 [facility] dical [facility] EPIC DATE CREATED AUTHOR AUTHOR'S ORGANIZ ATION 11/14/2023 [facility] Source Comments (unrecognize d section and content) In the event this informatio n is protected by the Federal Confidentiality of Alcohol and Drug Abuse Patient Records regulations: The Federal rules restrict any use of the information to criminally investigate or prosecute any alcohol or drug abuse patient.[facility] HospitalIn the event this information is protected by the Federal Confidentiality of Alcohol and Drug Abuse Patient Records regulations: The Federal rules restrict any use of the information to criminally investigate or prosecute any alcohol or drug abuse patient.[facility] HospitalIn the event this information is protected by the Federal Confidentiality of Alcohol and Drug Abuse Patient Records regulations: The Federal rules restrict any use of the information to criminally investigate or prosecute any alcohol or drug abuse patient.[facility] HospitalIn the event this information is protected by the Federal Confidentiality of Alcohol and Drug Abuse Patient Records regulations: The Federal rules restrict any use of the information to criminally investigate or prosecute any alcohol or drug abuse patient.[facility] Reason for Visit (unrecogniz ed section and content) Reason Comments Follow Up Reason Comments Radio Gen A21 Care Teams (unrecognized sec tion and content) Senior Storage Engineer Relationship Specialty Start Date End Date Alvin Contreras DO [address] [id number] PCP - General Internal Medicine 06/19/17 Senior Storage Engineer Relationship Specialty Start Date End Date Alvin Contreras DO [address] [place] [address] PCP - General Internal Medicine 06/19/17 Senior Storage Engineer Relationship Specialty Start Date End Date Alvin Contreras DO [address] [place] [address] PCP - General Internal Medicine 06/19/17 FOR [...] BE BASED ON THE PRIMARY CLINICAL RECORDS. [facility] Endorse [facility]. provides no warranty or guarantee of the accuracy or completeness of information in this document.
[2023-12-01 10:07] LABS: Basophils Percent Auto 0.5 % (0.2-2.0); Eosinophils Absolute Auto 0.1 10^3/uL (0.0-0.7); Eosinophils Percent Auto 1.1 % (0.9-7.0); Hematocrit 40.8 % (42.0-54.0); Hemoglobin 13.6 g/dL (14.0-18.0); Immature Granulocytes Abs Auto 0.02 10^3/uL (0.00-0.03); Immature Granulocytes Pct Auto 0.3 % (0.0-0.5); Lymphocytes Absolute Auto 1.3 10^3/uL (1.2-3.8); Lymphocytes Percent Auto 20.7 % (20.5-60.0); Mean Corpuscular HGB Conc 33.3 g/dL (29.9-35.2); Mean Corpuscular Hemoglobin 31.7 pg (25.9-34.0); Mean Corpuscular Volume 95.1 fL (80.0-94.0); Mean Platelet Volume 8.9 fL (9.5-13.5); Monocytes Absolute Auto 0.8 10^3/uL (0.3-0.8); Monocytes Percent Auto 11.8 % (1.7-12.0); Neutrophils Absolute Auto 4.2 10^3/uL (1.4-6.5); Neutrophils Percent Auto 65.6 % (43.0-75.0); Platelet Count 265 10^3/uL (150-450); Red Blood Count 4.29 10^6/uL (4.70-6.10); Red Cell Distribution Width 12.8 % (11.0-15.0); White Blood Count 6.4 10^3/uL (4.0-11.0)
== END 2023-12-01 09:56 | disposition home or self-care (01) ==
LOC: LAB 09:57
PROVIDERS: PCP Internal Medicine; Visit Provider Internal Medicine
DX: D64.9 Anemia, unspecified (principal)
CPT/HCPCS: 36415; 85025

== ENCOUNTER 2023-12-30 10:39 | Outpatient (OUT) | payer MEDICARE, OTHER, SELFPAY ==
--- NOTE | 2023-12-30 | XR_ITS ---
[address] [address] Patient Name: BANG SHARMA MRN: [id number] date: 1950 Sex: M Assigned Patient Location: Current Patient Location: Accession/Order Number: [id number] Exam Date: 12/30/2023 10:40 Report Date: 01/01/2024 04:33 At the request of: REINA JOYA Procedure: XR ankle RT min 3V PROCEDURE: XR ankle RT min 3V HISTORY: RIGHT ANKLE PAIN COMPARISON: XR ankle bilateral 08/09/2020 FINDINGS: BONES:Intramedullary laura and locking screws within tibia. Marked narrowing of the lateral aspect of ankle joint with preservation of medial joint space. Large degenerative osteophyte along the anterior margin of tibial plafond. Small corticated ossifications distal to the medial and lateral malleolus favoring sequela of remote injuries. Degenerative changes the midfoot. Calcaneal plantar spur. SOFT TISSUES:No visible soft tissue swelling. EFFUSION:None visible. OTHER: Negative. XR/XR ankle RT min 3V IMPRESSION: 1. Stable surgical changes. 2. Slight progression of joint space narrowing of the ankle joint. Electronically authenticated by: TIFFANY GUPTA Date: 01/01/2024 04:33
--- OUTSIDE RECORDS SUMMARY | 2023-12-30 10:57 | XMS_ITS | CCD ---
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 Name Role Phone PHYSICIAN, DEFAULT Unavailable Unavailable PHYSICIAN, DEFAULT Unavailable ALVIN Rivero Unavailable Alvin Rivero DO Primary Care Provider DR ALVIN CONTRERAS Primary Care Unavailable HANNA GUPTA Admitting Unavailable HANNA GUPTA Attending Unavailable ZIANA, DR TIFFANY El[employer] Consult[employer] Unavailable HANNA GUPTA [...] GEORGE C Attending Unavaila Alvin Dent Unavailable ALPESH JENKINS Admitting Unavailable ALPESH JENKINS Attending Unavailable DREA LINO Attending Unavailable ALPESH JENKINS Attending Unavailable Allergies Allergy Classification Reported Allergen(s) Allergy Type Date of Onset Reaction(s) Facility (2 sources) meperidine Drug Allergy 4 [facility] Repository (6 sources) Penicillins; Translations: [PENICILLINS] Drug allergy (disorder) 2 AOF, Unknown Reaction [facility] Repository (4 sources) Penicillins Drug Allergy 4 Hives [facility] (6 sources) Insects Extract; Translations: [INSECTS EXTRACT] Drug Allergy 1 Other: See Comments [facility] (3 sources) atorvastatin Drug Allergy 4 Unknown, Unknown Reaction [facility] (2 sources) Penicillin Drug Allergy Unknown [facility] Other (2 sources) Substance with penicillin structure and antibacterial mechanism of action (substance) Drug allergy Unknown [facility] Other (1 source) carvedilol; Translations: [CARVEDILOL] Drug Allergy 3 [facility] Repository (1 source) Meperidine; Translations: [MEPERIDINE] Drug Allergy 8 [facility] Repository (1 source) Metoprolol; Translations: [METOPROLOL] Drug Allergy 3 [facility] Repository (1 source) nebivolol; Translations: [NEBIVOLOL] Drug Allergy 3 [facility] Repository Medications Current Medications Medication Drug Class(es) Dates Sig (Normalized) Sig (Original) amLODIPine 10 mg oral tablet (7 sources) Dihydropyridine Calcium Channel Lisa Start: 09-01-2023 take 10 mg by mouth once daily Amlodipine Active 10 MG PO Daily September 01, 2023 12:00am Start: 11-21-2020 take 1 tablet by sudhakar once daily amLODIPine Besylate 10MG amLODIPine Besylate 10MG, 1 (one) Tablet Tablet Tablet Tablet daily # 0, 11/21/2020, No Refill. Active Oral daily *Pick strength-form from [employer] for eRX* Nov, Active Start: 08-02-2018 take 4 tablets by mo [facility] twice daily amLODIPine (NORVASC) 2.5 mg tablet Take 10 mg by mouth twice daily. 3 08/02/2018 Active Comment on above: Take 10 mg by mouth twice daily. amoxicillin 875 mg oral tablet (2 sources) Penicillin-class Antibacterial Start: 2 take 1 tablet by mouth twice daily Amoxicillin 875 MG amoxicillin 875mg, 1 (one) tablet two times daily # 10, 04/04/2022, No Refill. Active Oral two times daily for 5 Mar, Active baclofen 10 mg oral tablet (3 sources) gamma-Aminobutyric Acid-ergic Agonist Start: 4 take 10 mg by mouth once daily Baclofen Active 10 MG PO Daily September 01, 2023 12:00am take 1 tablet by sudhakar th once daily at bedtime Baclofen 10 MG TAKE 1 TABLET BY MOUTH AT BEDTIME EVERY NIGHT for 90 Active flecainide acetate 100 mg oral tablet (7 sources) Antiarrhythmic Start: 12-03-2023 take 50 mg by mouth every twelve hours Flecainide Active 50 MG PO Every 12 hours December 03, 2023 11:02am Start: 09-01-2023 End: 12-03-2023 take 100 mg by mouth every twelve hours Flecainide Discontinued 100 MG PO Every 12 hours September 01, 2023 12:00am December 03, 2023 11:03am Start: 04-04-2022 Flecainide Osmar brown 100MG Flecainide Acetate( 100MG Oral 1 two times daily ) Active -Hx Entry Oral two times daily *Pick strength-form from [employer] for eRX* Mar, Active Start: 10-08-2021 flecainide (TA MBOCOR) 100 mg tablet hydroCHLOROthiazide 25 mg / losartan potassium 100 mg oral tablet (5 sources) Thiazide Diuretic, Angiotensin 2 Receptor Lisa Start: 09-01-2023 take 1 tablet by mouth once daily Losartan-Hydrochlorothiazide Active 1 TAB PO Daily September 01, 2023 12:00am Start: 03-20-2017 take 1 tablet by sudhakar th once daily losartan-hydrochlorothiazide (HYZAAR) 10 0-25 mg per tablet Indications: Neoplasm of unspecified behavior of bone, soft tissue, and skin Take 1 tablet by mouth once daily. 0 03/20/2017 Active Comment on above: Take 1 tablet by sudhakar th once daily. Losartan Potassium-HCTZ 100-25MG (2 sources) Start: 04-04-2022 Losartan Potassium-HCTZ 100-25MG Losartan Potassium-HCTZ( 100-25MG Oral ) Active -Hx Entry Oral *Pick strength-form from [employer] for eRX* Mar, Active Multivitamin With Iron (1 source) Start: 09-01-2023 take 1 tablet by mouth once daily Multivitamin With Iron Active 1 TAB PO Daily September 01, 2023 12:00am Completed/Discontinued Medications Medication Drug Class(es) Dates Sig [...] Take 325 mg by mouth once daily. 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, unspecified] Onset: 08-20-2017 Chronic Cardiac dysrhythmias (18 sources) Paroxysmal atrial fibrillation; Translations: [Paroxysmal atrial fibrillation] Onset: 08-24-2017 08-24-2017 Chronic Cardiac dysrhythmias (1 source) Palpitations; Translations: [PALPITATIONS] Onset: 06-12-2022 Episodic Deficiency and other anemia (2 sources) Anemia, unspecified; Translations: [Anemia, unspecified] Episodic Deficiency and other anemia (1 source) Anemia; Translations: [Anemia, unspecified] 08-30-2023 Episodic Disorders of lipid metabolism (10 sources) Familial hypercholesterolemia ; Translations: [Pure hypercholesterolemia ] Onset: 02-07-2022 Chronic Essential hypertension (9 sources) Essential hypertension; Translations: [Essential (primary) hypertension] Onset: 08-24-2017 08-24-2017 Chronic Hyperplasia of prostate (2 sources) Lower urinary tract symptoms due to benign prostatic hypertrophy; Translations: [Benign prostatic hyperplasia with lower urinary tract symptoms] Chronic Inflammation; infection of eye (except that caused by tuberculosis or sexually transmitteddisease) (1 source) Hordeolum; Translations: [Hordeolum externum unspecified eye, unspecified eyelid] 09-01-2023 Episodic Osteoarthritis (2 sources) Localized, primary osteoarthritis of the shoulder region; Translations: [Primary osteoarthritis, left shoulder] Chronic Other endocrine disorders (2 sources) Adrenal mass; Translations: [Other specified disorders of adrenal gland] Chronic Other eye disorders (1 source) Chalazion of right upper eyelid; Translations: [Chalazion right upper eyelid] 09-01-2023 Episodic Other nervous system disorders (1 source) Other [...] Episodic Other nutritional; endocrine; and metabolic disorders (3 sources) Obesity; Translations: [Other obesity due to excess calories] Onset: 08-24-2017 08-31-2018 Chronic Other nutritional; endocrine; and metabolic disorders (2 sources) Obesity caused by energy imbalance; Translations: [Other obesity due to excess calories] Onset: 08-24-2017 08-31-2018 Chronic Other nutritional; endocrine; and metabolic disorders (1 source) Obesity, unspecified; Translations: [Obesity, unspecified] 12-03-2023 Chronic Other skin disorders (1 source) Skin tag; Translations: [Other hypertrophic disorders of the skin] 09-01-2023 Episodic Paralysis (4 sources) Monoplegia of lower limb; Translations: [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] Onset: 06-30-2019 06-30-2019 Chronic Phlebitis; thrombophlebitis and thromboembolism (2 sources) H/O: Deep vein thrombosis; Translations: [Personal history of other venous thrombosis and embolism] Episodic Residual codes; unclassified (5 sources) Obstructive sleep apnea syndrome; Translations: [Obstructive sleep apnea (adult) (pediatric)] Onset: 08-24-2017 08-24-2017 Chronic Residual codes; unclassified (1 source) Obstructive sleep apnea (adult) (pediatric); Translations: [Obstructive sleep apnea (adult)(pediatric)] 12-03-2023 Chronic Spondylosis; intervertebral disc disorders; other back problems (2 sources) Lumbar spondylosis; Translations: [Spondylosis without myelopathy or radiculopathy, lumbar region] Chronic Past or Other Problems Problem Classification Problem Date Documented Da te Episodic/Chronic Acquired foot deformities (4 sources) Right foot drop; Translations: [Foot drop, right foot] Onset: 06-30-2019 06-30-2019 Episodic Other aftercare (1 source) Other mcfp (current) drug therapy; Translations: [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 Prior HPI: Bang Sharma is a 73 y.o. year old with prior history of [...] followed up with [facility] with [facility] protocol which was negative for inducible arrhythmias [...] CVL report IMPRESSION: Successful direct-current cardioversion with jainism of sinus rhythm from atrial fibrillation with no immediate complication. 03/22/12: EPS EP study by Dr. Carmen Flores on 03/22/2012 for evaluation of wide-complex tachycardia in the setting of normal ejection fraction revealed normal HV interval but no evidence of any AH jump suggestive of dual AV node physiology and no tachycardia was induced. This was followed up with [facility] with [facility] protocol which was negative for inducible arrhythmias [...] Surgical History: Procedure Laterality Date CARDIAC CATHETERIZATION (more content not included)... [facility] NURSNOTEon 12-09-2023 NURSNOTE RN educated pt on d/ c instructions. RN encouraged pt to voice any questions or concerns. Pt verbalizes no questions or concerns at this time. Pt walked off of unit with all of belongings. [facility] 36on 12-02-2023 36 Regarding echo resul t from 11/24/2023: NILA Avitia MA; Alpesh Jenkins MD Severe biatrial enlargement LV systolic function low end of normal 50-55% RV normal size and function, normal rt sided pressures- no fluid overload LM on patient's VM. Normal [facility] Basophils Auto (Bld) [#/Vol] on 12-01-2023 Basophils (Bld) [#/Vol] 0.0 10 3/uL 0.0-0.1 [facility] Basophils/100 WBC Auto (Bld) on 12-01-2023 Basophils/100 WBC (Bld) 0.5 % 0.2-2.0 [facility] Eosinophils/100 WBC Auto (Bl d)on 12-01-2023 Eosinophils/100 WBC (Bld) 1.1 % 0.9-7.0 [facility] Erythrocyte distribution wid th Auto (RBC) [Ratio]on 12-01-2023 Erythrocyte distribution width (RBC) [Ratio] 12.8 % 11.0-15.0 [facility] Hematocrit Auto (Bld) [Volum e fraction]on 12-01-2023 Hematocrit (Bld) [Volume fraction] 40.8 % Low 42.0-54.0 [facility] Hemoglobin [Mass/volume] in Bloodon 12-01-2023 Hemoglobin (Bld) [Mass/Vol] 13.6 g/dL Low 14.0-18.0 [facility] Laboratory - Hematology and Cell countson 12-01-2023 Immature granulocytes/100 WBC (Bld) 0.3 % 0.0-0.5 [facility] Leukocytes [#/volume] correc evelyne for nucleated erythrocytes in Blood by Automated counon 12-01-2023 WBC corrected for nucl RBC Auto (Bld) [#/Vol] 6.4 10 3/uL 4.0-11.0 [facility] Lymphocytes Auto (Bld) [#/Vo l]on 12-01-2023 Lymphocytes (Bld) [#/Vol] 1.3 10 3/uL 1.2-3.8 [facility] Lymphocytes/100 WBC Auto (Bl d)on 12-01-2023 Lymphocytes/100 WBC (Bld) 20.7 % 20.5-60.0 [facility] MCH Auto (RBC) [Entitic mass ]on 12-01-2023 MCH (RBC) [Entitic mass] 31.7 pg 25.9-34.0 [facility] MCHC Auto (RBC) [Mass/Vol]on 12-01-2023 MCHC (RBC) [Mass/Vol] 33.3 g/dL 29.9-35.2 [facility] MCV Auto (RBC) [Entitic vol] on 12-01-2023 MCV (RBC) [Entitic vol] 95.1 fL High 80.0-94.0 [facility] Monocytes Auto (Bld) [#/Vol] on 12-01-2023 Monocytes (Bld) [#/Vol] 0.8 10 3/uL 0.3-0.8 [facility] Monocytes/100 WBC Auto (Bld) on 12-01-2023 Monocytes/100 WBC (Bld) 11.8 % 1.7-12.0 [facility] Neutrophils Auto (Bld) [#/Vo l]on 12-01-2023 Neutrophils (Bld) [#/Vol] 4.2 10 3/uL 1.4-6.5 [facility] Neutrophils/100 WBC Auto (Bl d)on 12-01-2023 Neutrophils/100 WBC (Bld) 65.6 % 43.0-75.0 [facility] No Panel Informationon 11-30 Eosinophils # (Auto) 0.1 10 3/uL 0.0-0.7 [facility] Immature Granulocyte # (Auto) 0.02 10 3/uL 0.00-0.03 [facility] Platelet mean volume Auto (B ld) [Entitic vol]on 12-01-2023 Platelet mean volume (Bld) [Entitic vol] 8.9 fL Low 9.5-13.5 [facility] Platelets Auto (Bld) [#/Vol] on 12-01-2023 Platelets (Bld) [#/Vol] 265 10 3/uL 150-450 [facility] RBC Auto (Bld) [#/Vol]on RBC (Bld) [#/Vol] 4.29 10 6/uL Low 4.70-6.10 [facility] Office Visiton 11-10-2023 Follow-up visit [id number] Lucinda Sharma 1950 Date Provider Department Center 11/10/2023 DREA STOVALL ARAM Panda Family History Problem Relation Age of Onset Coronary artery disease Other Hypertension Other Family Status - Relation Status Age at Other Level of Service:46600 MT OFFICE/OUTPATIENT ESTABLISHED MOD MDM 30 MIN Reason for Visit and Comments: Atrial Fibrillation [80] Normal [facility] Orders Onlyon 05-29-2023 Orders Only [id number] Lucinda Sharma 1950 Provider Department Center 05/29/2023 J CARLOS VICTOR ARAM Panda Family History Problem Relation Age of Onset Coronary artery disease Other Hypertension Other Family Status - Relation Status Age at Other Normal [facility] CNOVon 01-13-2023 CNOV Office Visit (ORFWHP ) BANG SHARMA ([id number]) 1950 Date Time Provider Department 01/13/23 2:30 PM HARESH PINEDA ORFWHP During your visit today, we recorded the following information about you: Haresh Pineda MD 01/13/2023 4:19 PM Signed Orthopaedic Surgery Follow-Up Clinic Note Surgery/Date: 08/27/2017 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 (CPT 62494 - 22) Placement of Prophylactic Carbon Fiber Tibial Nail, Right Tibia (CPT 36126) High Speed Ehsan and Adjuvant Treatment with 10% H202 (CPT 22941) Neruolysis and Dissection of Deep Peroneal Nerve (CPT 24766) Right Iliac Crest Marrow Aspiration/[place] ( CPT 37872) Diagnosis: Right Tibial Diaphysis Cartilage Lesion with [...] the date of the service which included [id number] patient care, completing clinical documentation, obtaining and/or [...] information added by medical student, resident, nurse, WATER POLLUTION SCIENTIST/PA-C that I have placed my signature directly below I have verified and either instructed them to document in a scribe function or document appropriately in the chart during the patient visit. Haresh Beavers (more content not included)... Normal [facility] XR ANKLE 3V AP/LAT/OBL LTon 01-13-2023 XR ANKLE 3V AP/LAT/OBL LT * * *Final Report* * * DATE OF EXAM: Jan 13 2023 2:19PM AOX 5298 - XR ANKLE 3V AP/LAT/OBL LT / PROCEDURE REASON: multiple diagnoses * * * * Physician Interpretation * * * * HISTORY: Chondrosarcoma (HCC) TECHNOLOGIST PROVIDED HISTORY (if applicable): follow up right lower leg (accession [id number]), left ankle pain and popping sensation (accession [id number]) TECHNIQUE: XR TIBIA FIBULA 2V AP/LAT RT, [...] SIGNIFICANT CHANGE. NO RADIOGRAPHIC SIGNS OF RECURRENCE. Aircraft Body Repairer: PSCB Transcribe Date/Time: Jan 13 2023 4:43P Dictated by : JULISA WEAVER MD This examination was interpreted and the report reviewed and electronically signed by: JULISA WEAVER MD on Jan 13 2023 4:53PM EST [id number] Normal [facility] XR CHEST 2V FRONTAL/LATon XR [...] tissues: Spine degenerative changes IMPRESSION: See result Aircraft Body Repairer: BARBARA Transcribe Date/Time: Jan 15 2023 3:13P Dictated by : RIKKI PEDERSEN MD This examination was interpreted and the report reviewed and electronically signed by: RIKKI PEDERSEN MD on Jan 15 2023 3:14PM EST [id number] Normal [facility] XR TIBIA FIBULA 2V AP/LAT [...] applicable): follow up right lower leg (accession [id number]), left ankle pain and popping sensation (accession [id number]) TECHNIQUE: XR TIBIA FIBULA 2V AP/LAT RT, [...] SIGNIFICANT CHANGE. NO RADIOGRAPHIC SIGNS OF RECURRENCE. Aircraft Body Repairer: [facility] Transcribe Date/Time: Jan 13 2023 4:43P Dictated by : JULISA WEAVER MD This examination was interpreted and the report reviewed and electronically signed by: JULISA WEAVER MD on Jan 13 2023 4:53PM EST [id number] Normal [facility] Office Visiton 12-16-2022 Follow-up visit [id number] Lucinda Sharma yuko E 1950 M Date Provider Department Center 12/16/2022 ALPESH MARQUEZ [facility] Family History Problem Relation Age of Onset Coronary artery disease Other Hypertension Other Family Status - Relation Status Age at Other Level of Service:29354 MT OFFICE/OUTPATIENT ESTABLISHED HIGH MDM 40-54 MIN Normal [facility] FLECAINEon 06-24-2022 FLECAINIDE 0.39 ug/ml Normal 0.20 - 1.00 [facility] Comment on above: Result Comment: Flec ainide reported as flecainide acetate. The reference range also is defined as flecaininde acetate. This test was developed and its performance characteristics determined by [facility] It has not been cleared or approved by the Food and Drug Administration. Performed By: #### T SH, BMP, LIPID, ALT #### [facility] [address] [place] [address] Dr. Fidel Paige CBC AUTO DIFFon 06-09-2022 BASO # 0.0 103/ul Normal 0.0-0.1 [facility] Comment on above: Performed By: #### C BC #### [facility] [address] [place] [address] Dr. Fidel Paige Basophils/100 WBC (Bld) 0.6 % Normal 0.2-2.0 [facility] Comment on above: Performed By: #### C BC #### [facility] [address] [place] [address] Dr. Fidel Paige EO # 0.1 103/ul Normal 0.0-0.7 [facility] Comment on above: Performed By: #### C BC #### [facility] [address] [place] [address] Dr. Fidel Paige Eosinophils/100 WBC (Bld) 2.8 % Normal 0.9-7.0 [facility] Comment on above: Performed By: #### C BC #### [facility] [address] [place] [address] Dr. Fidel Paige Erythrocyte distribution width (RBC) [Ratio] 12.8 % Normal 11.0-15.0 [facility] Comment on above: Performed By: #### C BC #### [facility] [address] [place] [address] Dr. Fidel Paige Hematocrit (Bld) [Volume fraction] 41.9 % Critically low 42.0-54.0 [facility] Comment on above: Performed By: #### C BC #### [facility] [address] [place] [address] Dr. Fidel Paige Hemoglobin (Bld) [Mass/Vol] 14.1 g/dL Normal 14.0-18.0 [facility] Comment on above: Performed By: #### C BC #### [facility] [address] [place] [address] Dr. Fidel Paige IG # 0.01 10e3/ul Normal 0.00-0.03 [facility] Comment on above: Performed By: #### C BC #### [facility] [address] [place] [address] Dr. Fidel Paige IG % 0.2 % Normal 0.0-0.5 [facility] Comment on above: Performed By: #### C BC #### [facility] [address] [place] [address] Dr. Fidel Paige LYMPH # 1.4 103/ul Normal 1.2-3.8 [facility] Comment on above: Performed By: #### C BC #### [facility] [address] [place] [address] Dr. Fidel Paige Lymphocytes/100 WBC (Bld) 29.2 % Normal 20.5-60.0 [facility] Comment on above: Performed By: #### C BC #### [facility] [address] [place] [address] Dr. Fidel Paige MANUAL DIFF REQ NO Normal [facility] Comment on above: Performed By: #### C BC #### [facility] [address] [place] [address] Dr. Fidel Paige MCH (RBC) [Entitic mass] 31.3 pg Normal 25.9-34.0 [facility] Comment on above: Performed By: #### C BC #### [facility] [address] [address] [address] Fidel Paige MCHC (RBC) [Mass/Vol] 33.7 g/dL Normal 29.9-35.2 [facility] Comment on above: Performed By: #### C BC #### [facility] [address] [address] [address] Fidel Paige MCV (RBC) [Entitic vol] 92.9 fL Normal 80.0-94.0 [facility] Comment on above: Performed By: #### C BC #### [facility] [address] [address] [address] Fidel Paige MONO # 0.7 103/ul Normal 0.3-0.8 [facility] Comment on above: Performed By: #### C BC #### [facility] [address] [place] [address] Dr. Fidel Paige Monocytes/100 WBC (Bld) 13.4 % Critically high 1.7-12.0 [facility] Comment on above: Performed By: #### C BC #### [facility] [address] [place] [address] Dr. Fidel Paige NEUT # 2.7 103/ul Normal 1.4-6.5 [facility] Comment on above: Performed By: #### C BC #### [facility] [address] [place] [address] Dr. Fidel Paige Neutrophils/100 WBC (Bld) 53.8 % Normal 43.0-75.0 [facility] Comment on above: Performed By: #### C BC #### [facility] [address] [address] [address] Fidel Paige Platelet mean volume (Bld) [Entitic vol] 8.7 fL Critically low 9.5-13.5 [facility] Comment on above: Performed By: #### C BC #### [facility] [address] [place] [address] Dr. Fidel Paige PLT 278 103/ul Normal 150-450 [facility] Comment on above: Performed By: #### C BC #### [facility] [address] [place] [address] Dr. Fidel Paige RBC 4.51 106/ul Critically low 4.70-6.10 [facility] Comment on above: Performed By: #### C BC #### [facility] [address] [place] [address] Dr. Fidel Paige WBC 4.9 103/ul Normal 4.0-11.0 [facility] Comment on above: Performed By: #### C BC #### [facility] [address] [place] [address] Dr. Fidel Paige MAGNESIUMon 06-09-2022 Magnesium [Mass/Vol] 2.0 mg/dL Normal 1.8-2.4 [facility] Comment on above: Performed By: #### T SH, MG, BMP #### [facility] [address] [place] [address] Dr. Fidel Paige PROF CHEM 8 (BAS METB)on Anion gap [Moles/Vol] 8.2 mmol/L Normal [facility] Comment on above: Performed By: #### T SH, MG, BMP #### [facility] [address] [place] [address] Dr. Fidel Paige Calcium [Mass/Vol] 10.2 mg/dL Critically high 8.5-10.1 [facility] Comment on above: Performed By: #### T SH, MG, BMP #### [facility] [address] [place] [address] Dr. Fidel Paige Chloride [Moles/Vol] 105 mmol/L Normal 98-107 [facility] Comment on above: Performed By: #### T SH, MG, BMP #### [facility] [address] [place] [address] Dr. Fidel Paige CO2 [Moles/Vol] 29.6 mmol/L Normal 21.0-32.0 [facility] Comment on above: Performed By: #### T SH, MG, BMP #### [facility] [address] [place] [address] Dr. Fidel Paige Creatinine [Mass/Vol] 0.81 mg/dL Normal 0.70-1.30 [facility] Comment on above: Performed By: #### T BEATRIS, MG, BMP #### [facility] [address] [place] [address] Dr. Fidel Paige EGFR-AF RUSSIAN >60 Normal >=60 [facility] Comment on above: Performed By: #### T SH, MG, BMP #### [facility] [facility] [address] [address] [address] Fidel Paige EGFR-NON AF RUSSIAN >60 Normal >=60 [facility] Comment on above: Performed By: #### T SH, MG, BMP #### [facility] [address] [place] [address] Dr. Fidel Paige Glucose [Mass/Vol] 100 mg/dL Normal 74-106 [facility] Comment on above: Performed By: #### T BEATRIS MG, BMP #### [facility] [address] [place] [address] Dr. Fidel Paige Potassium [Moles/Vol] 3.8 mmol/L Normal 3.5-5.1 [facility] Comment on above: Performed By: #### T BEATRIS MG, BMP #### [facility] [address] [place] [address] Dr. Fidel Paige Sodium [Moles/Vol] 139 mmol/L Normal 136-145 [facility] Comment on above: Performed By: #### T SH, MG, BMP #### [facility] [address] [place] [address] Dr. Fidel Paige Urea nitrogen [Mass/Vol] 12.0 mg/dL Normal 7.0-18.0 [facility] Comment on above: Performed By: #### T SH, MG, BMP #### [facility] [address] [place] [address] Dr. Fidel Paige Urea nitrogen/Creatinin e [Mass ratio] 14.8 mg/mg Normal [facility] Comment on above: Performed By: #### T BEATRIS, MG, BMP #### [facility] [address] [place] [address] Dr. Fiedl Paige TSHon 06-09-2022 TSH 0.891 uIU/mL Normal 0.358-3.740 [facility] Comment on above: Performed By: #### T SH, MG, BMP #### [facility] [address] [address] [address] Fidel Paige CBC AUTO DIFFon 02-07-2022 BASO # 0.0 103/ul Normal 0.0-0.1 [facility] Comment on above: Performed By: #### T SH, BMP, LIPID, ALT #### [facility] [address] [place] [address] Dr. Fidel Paige Basophils/100 WBC (Bld) 0.3 % Normal 0.2-2.0 [facility] Comment on above: Performed By: #### T SH, BMP, LIPID, ALT #### [facility] [address] [place] [address] Dr. Fidel Paige EO # 0.1 103/ul Normal 0.0-0.7 [facility] Comment on above: Performed By: #### T SH, BMP, LIPID, ALT #### [facility] [address] [place] [address] Dr. Fidel Paige Eosinophils/100 WBC (Bld) 2.1 % Normal 0.9-7.0 [facility] Comment on above: Performed By: #### T SH, BMP, LIPID, ALT #### [facility] [address] [place] [address] Dr. Fidel Paige Erythrocyte distribution width (RBC) [Ratio] 13.1 % Normal 11.0-15.0 [facility] Comment on above: Performed By: #### T SH, BMP, LIPID, ALT #### [facility] [address] [place] [address] Dr. Fidel Paige Hematocrit (Bld) [Volume fraction] 45.2 % Normal 42.0-54.0 [facility] Comment on above: Performed By: #### T SH, BMP, LIPID, ALT #### [facility] [address] [place] [address] Dr. Fidel Paige Hemoglobin (Bld) [Mass/Vol] 14.8 g/dL Normal 14.0-18.0 [facility] Comment on above: Performed By: #### T SH, BMP, LIPID, ALT #### [facility] [address] [place] [address] Dr. Fidel Paige IG # 0.02 10e3/ul Normal 0.00-0.03 [facility] Comment on above: Performed By: #### T SH, BMP, LIPID, ALT #### [facility] [address] [place] [address] Dr. Fidel Paige IG % 0.3 % Normal 0.0-0.5 [facility] Comment on above: Performed By: #### T SH, BMP, LIPID, ALT #### [facility] [address] [place] [address] Dr. Fidel Paige LYMPH # 1.4 103/ul Normal 1.2-3.8 [facility] Comment on above: Performed By: #### T SH, BMP, LIPID, ALT #### [facility] [address] [place] [address] Dr. Fidel Paige Lymphocytes/100 WBC (Bld) 23.2 % Normal 20.5-60.0 [facility] Comment on above: Performed By: #### T SH, BMP, LIPID, ALT #### [facility] [address] [place] [address] Dr. Fidel Paige MANUAL DIFF REQ NO Normal [facility] Comment on above: Performed By: #### T SH, BMP, LIPID, ALT #### [facility] [address] [place] [address] Dr. Fidel Paige MCH (RBC) [Entitic mass] 31.6 pg Normal 25.9-34.0 [facility] Comment on above: Performed By: #### T SH, BMP, LIPID, ALT #### [facility] [address] [place] [address] Dr. Fidel Paige MCHC (RBC) [Mass/Vol] 32.7 g/dL Normal 29.9-35.2 [facility] Comment on above: Performed By: #### T SH, BMP, LIPID, ALT #### [facility] [address] [place] [address] Dr. Fidel Paige MCV (RBC) [Entitic vol] 96.6 fL Critically high 80.0-94.0 [facility] Comment on above: Performed By: #### T SH, BMP, LIPID, ALT #### [facility] [address] [place] [address] Dr. Fidel Paige MONO # 0.7 103/ul Normal 0.3-0.8 [facility] Comment on above: Performed By: #### T SH, BMP, LIPID, ALT #### [facility] [address] [place] [address] Dr. Fidel Paige Monocytes/100 WBC (Bld) 11.7 % Normal 1.7-12.0 [facility] Comment on above: Performed By: #### T SH, BMP, LIPID, ALT #### [facility] [address] [place] [address] Dr. Fidel Paige NEUT # 3.6 103/ul Normal 1.4-6.5 [facility] Comment on above: Performed By: #### T SH, BMP, LIPID, ALT #### [facility] [address] [place] [address] Dr. Fidel Paige Neutrophils/100 WBC (Bld) 62.4 % Normal 43.0-75.0 [facility] Comment on above: Performed By: #### T SH, BMP, LIPID, ALT #### [facility] [address] [place] [address] Dr. Fidel Paige Platelet mean volume (Bld) [Entitic vol] 8.8 fL Critically low 9.5-13.5 [facility] Comment on above: Performed By: #### T SH, BMP, LIPID, ALT #### [facility] [address] [place] [address] Dr. Fidel Paige PLT 283 103/ul Normal 150-450 [facility] Comment on above: Performed By: #### T SH, BMP, LIPID, ALT #### [facility] [address] [place] [address] Dr. Fidel Paige RBC 4.68 106/ul Critically low 4.70-6.10 [facility] Comment on above: Performed By: #### T SH, BMP, LIPID, ALT #### [facility] [address] [address] [address] Fidel Paige WBC 5.8 103/ul Normal 4.0-11.0 [facility] Comment on above: Performed By: #### T SH, BMP, LIPID, ALT #### [facility] [address] [address] [address] Fidel Paige LIPID PROFILEon 02-07-2022 CHOL-HDL RATIO NORM SEE BELOW Normal [facility] Comment on above: Result Comment: 3.3 - 4.4 LOW RISK 4.4 - 7.1 AVERAGE RISK 7.1 - 11.0 MODERATE RISK >11.0 HIGH RISK Performed By: #### T SH, BMP, LIPID, ALT #### [facility] [address] [address] [address] Fidel Paige Cholesterol [Mass/Vol] 191 mg/dL Normal <=200 [facility] Comment on above: Performed By: #### T SH, BMP, LIPID, ALT #### [facility] [address] [place] [address] Dr. Fidel Paige Cholesterol in HDL [Mass/Vol] 42 mg/dL Normal 40-60 [facility] Comment on above: Performed By: #### T SH, BMP, LIPID, ALT #### [facility] [address] [place] [address] Dr. Fidel Paige Cholesterol in LDL [Mass/Vol] 118.0 mg/dL Normal [facility] Comment on above: Performed By: #### T SH, BMP, LIPID, ALT #### [facility] [address] [address] [address] Fidel Paige Cholesterol.total/ Cholesterol in HDL [Mass ratio] 4.5 {ratio} Normal [facility] Comment on above: Performed By: #### T SH, BMP, LIPID, ALT #### [facility] [address] [place] [address] Dr. Fidel Paige HDL NORMAL > or = 60 mg/dl - LO W CARDIOVASCULAR RISK <40 mg/dl - HIGH CARDIOVASCULAR RISK Normal [facility] Comment on above: Performed By: #### T SH, BMP, LIPID, ALT #### [facility] [address] [address] [address] Fidel Paige LDL CALC NORMAL SEE BELOW Normal [facility] Comment on above: Result Comment: <100 mg/dl OPTIMAL 100 - 129 mg/dl NEAR OR ABOVE OPTIMAL 130 - 159 mg/dl BORDERLINE HIGH 160 - 189 mg/dl HIGH >190 mg/dl VERY HIGH Performed By: #### T SH, BMP, LIPID, ALT #### [facility] [address] [address] [address] Fidel Paige Triglyceride [Mass/Vol] 155 mg/dL Critically high <=150 [facility] Comment on above: Performed By: #### T SH, BMP, LIPID, ALT #### [facility] [address] [address] [address] Fidel Paige VLDL CALC 31.0 mg/dL Normal [facility] Comment on above: Performed By: #### T SH, BMP, LIPID, ALT #### [facility] [address] [address] [address] Fidel Paige PROF CHEM 8 (BAS METB)on Anion gap [Moles/Vol] 11.0 mmol/L Normal [facility] Comment on above: Performed By: #### T SH, BMP, LIPID, ALT #### [facility] [address] [address] [address] Fidel Paige Calcium [Mass/Vol] 10.1 mg/dL Normal 8.5-10.1 [facility] Comment on above: Performed By: #### T SH, BMP, LIPID, ALT #### [facility] [address] [address] [address] Fidel Paige Chloride [Moles/Vol] 105 mmol/L Normal 98-107 [facility] Comment on above: Performed By: #### T SH, BMP, LIPID, ALT #### [facility] [address] [address] [address] Fidel Paige CO2 [Moles/Vol] 29.0 mmol/L Normal 21.0-32.0 [facility] Comment on above: Performed By: #### T SH, BMP, LIPID, ALT #### [facility] [address] [address] [address] Fidel Paige Creatinine [Mass/Vol] 0.85 mg/dL Normal 0.70-1.30 [facility] Comment on above: Performed By: #### T SH, BMP, LIPID, ALT #### [facility] [address] [address] [address] Fidel Paige EGFR-AF RUSSIAN >60 Normal >=60 [facility] Comment on above: Performed By: #### T SH, BMP, LIPID, ALT #### [facility] [address] [address] [address] Fidel Paige EGFR-NON AF RUSSIAN >60 Normal >=60 [facility] Comment on above: Performed By: #### T SH, BMP, LIPID, ALT #### [facility] [address] [address] [address] Fidel Paige Glucose [Mass/Vol] 101 mg/dL Normal 74-106 [facility] Comment on above: Performed By: #### T SH, BMP, LIPID, ALT #### [facility] [address] [address] [address] Fidel Paige Potassium [Moles/Vol] 4.0 mmol/L Normal 3.5-5.1 [facility] Comment on above: Performed By: #### T SH, BMP, LIPID, ALT #### [facility] [address] [address] [address] Fidel Paige Sodium [Moles/Vol] 141 mmol/L Normal 136-145 [facility] Comment on above: Performed By: #### T SH, BMP, LIPID, ALT #### [facility] [address] [address] [address] Fidel Paige Urea nitrogen [Mass/Vol] 13.0 mg/dL Normal 7.0-18.0 [facility] Comment on above: Performed By: #### T SH, BMP, LIPID, ALT #### [facility] [address] [place], [place] [address] Dr. Fidel Paige Urea nitrogen/Creatinin e [Mass ratio] 15.3 mg/mg Normal [facility] Comment on above: Performed By: #### T SH, BMP, LIPID, ALT #### [facility] [address] [address] [address] Fidel Paige SGPTon 02-07-2022 ALT [Catalytic activity/Vol] 26 U/L Normal 16-63 [facility] Comment on above: Performed By: #### T SH, BMP, LIPID, ALT #### [facility] [address] [address] [address] Fidel Paige TSHon 02-07-2022 TSH 0.856 uIU/mL Normal 0.358-3.740 [facility] Comment on above: Performed By: #### T SH, BMP, LIPID, ALT #### [facility] [address] [address] [address] Fidel Paige XR CHEST 2V FRONTAL/LATon [facility] US VENOUS DOPPLER L Cristian US [...] by: TIFFANY GUPTA Date: 2021-10-10 12:51 Normal [facility] Vital Signs Date Time Vital Sign Value Performing Clinician Samantha hicks 12-03-2023 11:04040 Body height 185.42 cm [facility] 12-03-2023 11:040400 Body mass index (BMI) [Ratio] 33.8 kg/m2 [facility] 12-03-2023 11:04040 Body weight 116.28 kg [facility] 12-03-2023 11:04-0400 Diastolic blood pressure 86 mm[Hg] [facility] 12-03-2023 11:04-0400 Heart rate 71 /min [facility] 12-03-2023 11:04-0400 Respiratory rate 12 /min [facility] 12-03-2023 11:04-0400 Systolic blood pressure 130 mm[Hg] [facility] Encounters Encounter Date Encounter Type Care Provider Facility Start: 12-09-2023 End: 12-09-2023 ambulatory [facility] Start: 12-03-2023 End: 12-03-2023 ambulatory [facility] Work Phone: Start: 12-03-2023 End: 12-03-2023 Patient encounter procedure [facility] Work Phone: Start: 12-01-2023 Non-patient / Non-visit [facility] Work Phone: Start: 11-10-2023 End: 11-10-2023 ambulatory DRE[facility] Start: 06-04-2023 End: 06-04-2023 ambulatory Alvin Contreras Other [facility] Other Start: 06-04-2023 Encounter by sergio Contreras [facility] Start: 05-29-2023 End: 05-29-2023 ambulatory Alvin Contreras Other [facility] Other Start: 05-29-2023 Telephone encounter Alvin Contreras [facility] Start: 03-30-2023 End: 03-30-2023 ambulatory NIKKI MITCHELL Not Available Start: 01-13-2023 End: 01-14-2023 ambulatory HARESH PINEDA Facility:[facility] Start: 01-12-2023 Orders Only Haresh Pineda MD Work Phone: Orthopaedics Comment on above: Chronic pain of left ankle (Primary Dx) Start: 12-16-2022 End: 12-16-2022 ambulatory ALPESH JENKINS [facility] Start: 11-17-2022 Orders Only Haresh [...] 11-09-2017 End: 11-10-2017 Patient encounter DEFAULT PHYSICIAN Facility:[facility] Procedures Date Procedure Procedure Detail Performing Clinician Start: 02-07-[address] RING IN [place] Comment on above: Performed By: #### T SH, BMP, LIPID, ALT #### [facility] [address] [address] [address] Fidel Paige Start: 11-05-2021 Radiologic exam ches t 2 views Eric Taylor APRN.WATER POLLUTION SCIENTIST Work Phone: Start: 11-05-2021 Radiologic examinati on tibia & fibula 2 views Eric Taylor APRN.WATER POLLUTION SCIENTIST Work Phone: Start: 06-30-2019 Adult depression scr eening assessment Haresh Pineda MD Work Phone: Plan of Treatment Date Care Activity Detail Author Start: 12-19-2022 Influenza vaccination [facility] Start: 11-05-2022 End: 12-05-2022 Radiologic exam chest 2 views XR CHEST 2V FRONTAL/LAT Radiology Routine Chondrosarcoma (HCC) Expected: 11/05/2022 (Approximate), Expires: 12/05/2022 [facility] Work Phone: Comment on above: Expected: 11/05/2022 (Approximate), Expires: 12/05/2022 Start: 11-05-2022 End: 12-05-2022 XR TIBIA FIBULA 2V AP/LAT RIGHT XR TIBIA FIBULA 2V AP/LAT RIGHT Radiology Routine Chondrosarcoma (HCC) Expected: 11/05/2022 (Approximate), Expires: 12/05/2022 [facility] Work Phone: Comment on above: Expected: 11/05/2022 (Approximate), Expires: 12/05/2022 Start: 10-25-2022 DIABETES SCREEN DIABETES SCREEN [facility] Start: 10-25-2022 Diabetes Screening Diabetes Screenin g [facility] Start: 04-20-2022 ADVANCE DIRECTIVE DISCUSSION ADVANCE DIRECTIVE DISCUSSION [facility] Start: 04-20-2022 DEPRESSION ASSESSMENT DEPRESSION ASS ESSMENT [facility] Start: 12-19-2021 Influenza vaccination INFLUENZA (#1) [facility] Start: 11-18-2021 COVID-19 VACCINE (5 - Pfizer series) COVID-19 VACCINE (5 - Pfizer series) [facility] Start: 04-20-2021 ADVANCE DIRECTIVE DISCUSSION ADVANCE DIRECTIVE DISCUSSION [facility] Start: 06-29-2020 Adult depression screening assessment DEPRESSION SCREENING [facility] Start: 2014 Pneumococcal Vaccine : 65+ (1 - PCV) Pneumococcal Vaccine: 65+ (1 - PCV) [facility] Start: 2014 PNEUMOCOCCAL: 65+ (1 - PCV) PNEUMOCOCCAL: 65+ (1 - PCV) [facility] Start: 09-19-1999 SHINGRIX VACCINE (1 of 2) SHINGRIX VACCINE (1 of 2) [facility] Start: 1994 COLOGUARD (FIT-DNA) COLOGUARD (FIT-D NA) [facility] Start: 1994 Colonoscopy COLONOSCOPY [facility] Start: 1994 COLORECTAL CANCER SCREENING COLORECTAL CANCER SCREENING [facility] Start: [address] COLONOGRAPHY [facility] Start: 1994 FECAL OCCULT BLOOD FECAL OCCULT BLOO D [facility] Start: 1994 SIGMOIDOSCOPY SIGMOIDOSCOPY [facility] Start: 1984 Lipid 1996 panel - Serum or Plasma Lipid Screening [facility] Start: 1984 LIPID SCREEN LIPID SCREEN [facility] Start: 1968 Urine microalbumin profile [facility] Start: 09-19-1967 ANNUAL PCP TEAM PROMOTIONS COORDINATOR LEE ANN DISEASE VISIT ANNUAL PCP TEAM CHRONIC DISEASE VISIT [facility] Start: 09-19-1967 BP CONTROLLED (<130/80) BP CONTROLLE D (<130/80) [facility] Start: 09-19-1967 HEPATITIS C SCREENING HEPATITIS C SC REENING [facility] End: 12-17-2023 Radiologic exam chest 2 views XR CHEST 2V FRONTAL/LAT Radiology Routine Chondrosarcoma (HCC) 1 Occurrences starting 11/17/2022 until 12/17/2023 [facility] Work Phone: Comment on above: 1 Occurrences starti ng 11/17/2022 until 12/17/2023 End: 02-11-2024 XR ANKLE GENERAL 3V AP/LAT/OBL LEFT XR ANKLE GENERAL 3V AP/LAT/OBL LEFT Radiology Routine Chronic pain of left ankle 1 Occurrences starting 01/12/2023 until 02/11/2024 [facility] Work Phone: Comment on above: 1 Occurrences starti ng 01/12/2023 until 02/11/2024 End: 12-17-2023 XR TIBIA FIBULA 2V AP/LAT RIGHT XR TIBIA FIBULA 2V AP/LAT RIGHT Radiology Routine Chondrosarcoma (HCC) 1 Occurrences starting 11/17/2022 until 12/17/2023 [facility] Work Phone: Comment on above: 1 Occurrences starti ng 11/17/2022 until 12/17/2023 XR TIBIA FIBULA 2V AP/LAT RT XR TIBIA FIBULA 2V AP/LAT RT Radiology Routine Chondrosarcoma (HCC) 11/05/2021 2:50 PM EDT [facility] Work Phone: [facility] Immunizations Immunization Date Immunization Notes Care Provider Omar tilley 02-10-2022 influenza virus vaccine, split virus (incl. purified surface antigen) Alvin Contreras Other [facility] Other 02-10-2022 influenza virus vaccine, unspecified formulation [facility] 05-29-2020 COVID-19 Vaccine Pfi zer - Documentation Purposes Only Alvin Contreras Other [facility] 10-02-2016 diphtheria, tetanus toxoids and acellular pertussis vaccine, unspecified formulation Alvin Contreras Other [facility] 03-23-2016 pneumococcal conjuga te vaccine, 13 valent Alvin Contreras Other [facility] 03-01-2009 pneumococcal polysaccharide vaccine, 23 valent Alvin Contreras Other [facility] 02-25-2006 diphtheria, tetanus toxoids and acellular pertussis vaccine, unspecified formulation Alvin Contreras Other [facility] Payers Date Payer Category Payer Medicare MEDICARE MEDICAR E A AND B [id number] 2014-Present [phone] [address] [address] [place] [address] Medicare [id number] 2014 Medicare MEDICARE RAILROA D MEDICARE RAILROAD PB ONLY [id number] 2014-Present [phone] [address] [address] [place] [address] Medicare [id number] 2014 Unknown 2014 Unknown [employer] 2N D [id number] 2014-Present [phone] [address] [address] [place] [id number] Indemnity [id number] 2014 Unknown [id number] 1959 Medicare [id number] 1959 Unknown [id number] 1949 Unknown [id number] 1949 Unknown [id number] 1949 Unknown [id number] 1949 Unknown [id number] Social History Date Type Detail Facility Start: 07-17-2017 Tobacco smoking stat [facility] Never smoked tobacco [facility] Start: 07-17-2017 Tobacco use and exposure Smoke less tobacco non-user [facility] Start: 1950 Sex Assigned At Male C [facility] Start: 10-26-2021 End: 11-05-2021 Exposure to SARS-CoV-2 (event) Not sure [facility] Start: 06-30-2019 End: 05-18-2022 History of Social function [facility] Start: 06-30-2019 End: 05-18-2022 Area Deprivation Index [facility] National Score (1-10 0), lower number is lower risk 60 [facility] Start: 11-23-2019 Sexual orientation Heterosexual (dirk gibson) [facility] Medical Equipment Procedure Code Equipment Code Equipment Origin al Text Equipment Identifier Dates Graft Enhance Demineralized Cortical Fiber Bone Allograft Dehydrate 2.5ml - [id number] Start: 08-27-2017 Graft Cancellous Chips Bone Void Freeze Dry 30ml (1.7-10mm) - [id number] Start: 08-27-2017 Graft Dbx Bone V oid Allograft Freeze Dried Putty 1ml - [id number] Start: 08-27-2017 Tibial Nail [id number] Start: 08-27-2017 Carbofix Titaniumscrew [id number] S tart: 08-27-2017 Carbofix Titaniu m Screw [id number] Start: 08-27-2017 Carbofix Titaniu m Screw [id number] Start: 08-27-2017 Carbofix Titaniu m Screw [id number] Start: 08-27-2017 Carbofix Titaniu m Screw [id number] Start: 08-27-2017 Clinical Notes 10-10-2021 to 12-09-2023 Note Date & Type Note Facility 12-09-2023 Note LOOP IMPLANT PROCEDU RE NOTE DATE OF PROCEDURE: 12/09/23 PERFORMING PHYSICIAN: Dr. Alpesh Jenkins RECLAIMER: JERROD INDICATIONS FOR PROCEDURE: 1. SVT/AF surveillance CONSENT: Patient LOCATION: EP lab PROCEDURAL SEDATION: None FLUOROSCOPY TIME: 0min PREPARATION: Preoperative antibiotics was administered. EBL: 5cc SPECIMEN REMOVED: None PROCEDURES PERFORMED: 1. LOOP implant PROCEDURE NOTE: Patient was brought to the EP lab in the post absorptive state. A procedural pause was performed verifying the patient, the procedure. Sterile prep and drape were performed over the left precordium and anesthesia with 1% lidocaine was followed by a small incision was made in the 3rd intercostal space near the sternum on the left using the Sodraft tool. The loop recorder was then injected subcutaneously and noted to have good sensing parameters. Technical details of the device as noted below. The skin was then closed with 3-0 absorbable monofilament suture and glue applied to hold the edges together. Tegaderm was applied to cover the wound. The patient appeared to tolerate the procedure well and was returned to the room in stable condition. No complications were immediately observed. Sensin.12 mV. IMPRESSION: Successful placement of LOOP implant with excellent sensing parameters. COMPLICATIONS: None RECOMMENDATIONS: 1. Occlusive dressing to be changed after 7 days. 2. Do not wet the incision. Alpesh Jenkins MD Cardiac Electrophysiology. [facility] 11-10-2023 Note Cardiovascular Medic [facility] SUBJECTIVE Chief Complaint Patient presents with [...] followed up with [facility] with [facility] protocol which was negative for inducible arrhythmias [...] (260 lb) SpO2 (more content not included)... [facility] 11-10-2023 Note Patient here today [...] All other systems reviewed and are negative. [facility] 05-29-2023 Evaluation note Encounter Date Diagnosis Assessment Notes May, Anemia (ICD-10 - D64.9) [facility] Other 09-26-2023 NoteHNO ID: [id number] Author: Keri Lopez, TIRSO Service: ? Author Type: Registered Nurse Type: Progress Notes Filed: 01/13/2023 4:19 PM Note Text: I served as a scribe during this office visit encounter. Keri Lopez [facility]09-26-2023 NoteHNO ID: [id number] Author: Ranjith Teixeira RT(Caro) Service: Radiology Author [...] PERIPHERAL IV DATA: Not applicable SIGNED BY: Ranjith Teixeira RT(R) January 13, 2023 2:20 [facility]09-26-2023 NoteHNO ID: [id number] Author: Haresh Pineda MD Service: ? 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 (CPT 96342 - 22) Placement of Prophylactic Carbon Fiber Tibial Nail, Right Tibia (CPT 27956) High Speed [place] and Adjuvant Treatment with 10% H202 (CPT 58118) Neruolysis and Dissection of Deep Peroneal Nerve (CPT 48570) Right Iliac Crest Marrow Aspiration/[place] ( CPT 94360) Diagnosis: Right Tibial Diaphysis Cartilage Lesion with [...] the date of the service which included [id number] patient care, completing clinical documentation, obtaining and/or [...] information added by medical student, resident, nurse, WATER POLLUTION SCIENTIST/DEVAN that I have placed my signature directly below I have verified and either instructed them to document in a scribe function or document appropriately in the chart during the patient visit. Haresh Pineda MD core checker, CCLCM [facility], Division of Musculoskeletal Oncology Co-Director of [facility], [facility] Pager: [phone] (more content not included)...[id number] NoteWVUMed[facility] NoteUT Electrophysiology Consult Note Reason for [...] who is here for A-fib follow up. Paifrandy is currently maintained on amiodarone.He was on [...] followed up with [facility] with [facility] protocol which was negative for inducible arrhythmias [...] CVL report IMPRESSION: Successful direct-current cardioversion with jainism of sinus rhythm from atrial fibrillation with no immediate complication. 03/22/12: EPS EP study by Dr. Carmen Flores on 03/22/2012 for evaluation of wide-complex tachycardia in the setting of normal ejection fraction revealed normal HV interval but no evidence of any AH jump suggestive of dual AV node physiology and no tachycardia was induced. This was followed up with [facility] with [facility] protocol which was negative for inducible arrhythmias [...] CATHETERIZATION CARDIOVERSION HAND SURGERY (more content not included)...[facility] 11-05-2021 History of Present illness Narrative* Haresh Pineda MD - 11/05/2021 5:19 PM EDT This note was created using Acuity Systemsriter. AAOS AMB SF ORT MST FU Advanced: Did this patient have an adverse event since their last encounter?: No * Haresh Pineda MD - 11/05/2021 4:07 PM EDT Orthopaedic Surgery Follow-Up Clinic Note Surgery/Date: 08/27/2017 1. 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 (CPT 48024 - 22) 2. Placement of Prophylactic Carbon Fiber Tibial Nail, Right Tibia (CPT 76265) 3. High Speed [place] and Adjuvant Treatment with 10% H202 (CPT 01005) 4. Neruolysis and Dissection of Deep Peroneal Nerve (CPT 57324) 5. 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 Exam: RLE -- largely unchanged compared [...] the date of the service which included [id number] patient care, completing clinical documentation, obtaining and/or reviewing separately obtained history, performing a medically appropriate examination, counseling and educating the patient/family/caregiver, ordering medications, tests, or procedures, independently interpreting results (not separately reported) and communicating results to the patient/family/caregiver. Any information added by medical student, resident, nurse, WATER POLLUTION SCIENTIST/PA-C that I have placed my signature directly below I have verified and either instructed them to document in a scribe function or document appropriately in the chart during the patient visit. Haresh Pineda MD core checker, CCLCM [facility], Division of Musculoskeletal Oncology Co-Director of [facility], [facility] Pager: [phone] November 05, 2021 5:18 PM documented in this encounterM[facility]07-19-2022 History of Present illness Narrative* Esperanza Sandy, RT(R) - 11/05/2021 2:15 PM EDT Radiology Service [...] 05, 2021 2:49 PM documented in this encounterM[facility]field Hospital06-23-2022 NotePROCEDURE: XR FOREARM LT 2 VIEWS [...] Electronically authenticated by: TIFFANY GUPTA Date: 2021-10-10 12:28[facility]* Diagnosis Chondrosarcoma (HCC)- Primary Malignant [...] documented [facility] [place] Other Evaluation note* Diagnosis Onset Date Resolution Status Anemia acute Atrial fibrillation acute Hypercholesterolemia acute Hypertension acute Obesity acute REMY (obstructive sleep apnea) acute [facility] Work Phone: History general Narrative - Reported* Type Description [...] insertion 2018 Hospitalization History see surgical hx [facility] Other Reason for referral (narrative)* Diagnostic Procedure Only (Routine) - Pending Review Specialty Diagnoses / Procedures Referred By Contac t Referred To Contact XR IMAGING Diagnoses Chondrosarcoma (HCC) Procedures XR TIBIA FIBULA 2V AP/LAT RIGHT RADIOLOGIC EXAMINATION TIBIA & FIBULA 2 VIEWS Haresh Pineda MD [address] [place] [address] Xr Imaging Referral ID Status Reason Start Date Expiration Date Visits Requested Visits Authorized [id number] Pending Review Auto-Generat ed Referral 11/05/2022 12/05/2022 1 1 [facility] for referral (narrative)* Diagnostic Procedure Only (Routine) - Pending Review Specialty Diagnoses / Procedures Referred By Contac t Referred To Contact XR IMAGING Diagnoses Chondrosarcoma (HCC) Procedures XR TIBIA FIBULA 2V AP/LAT RIGHT RADIOLOGIC EXAMINATION TIBIA & FIBULA 2 VIEWS Haresh Pineda MD [address] [place] [address] Xr Imaging Referral ID Status Reason Start Date Expiration Date Visits Requested Visits Authorized [id number] Pending Review Auto-Generat ed Referral 11/17/2022 12/17/2023 1 1 T [facility] for referral (narrative)* Diagnostic Procedure Only (Routine) - Authorized Specialty Diagnoses / Procedures Referred By Contac t Referred To Contact XR IMAGING Diagnoses Chronic pain of left ankle Procedures XR ANKLE GENERAL 3V AP/LAT/OBL LEFT RADEX ANKLE COMPLETE MINIMUM 3 VIEWS Valeri Quintero PA-C [address] [address] [place] [address] Referral ID Status Reason Start Date Expiration Date Visits Requested Visits Authorized [id number] Authorized Auto-Generat ed Referral 01/12/2023 02/11/2024 1 1 [facility] Summary Purpose Family History No Family History Records Found Relationship Condition Age at Onset Recorded Date/T kayley father Malignant neoplasm Unknown Unknown mother Hypertension Unknown Diabetes mellitus Unknown Advance Directives No Advanced Directives Records FoundDocuments on File Type Date Recorded Patient Rose Grader Expl anation Advance Directive(s) Advance Directive(s) 09/02/2018 11:24 AM Advance Directive(s) 08/26/2018 2:02 PM Advance Directive(s) 08/24/2017 2:28 PM Documents on File Type Date Recorded Patient Rose Grader Expl anation Advance Directive(s) Advance Directive(s) 09/02/2018 11:24 AM Advance Directive(s) 08/26/2018 2:02 PM Advance Directive(s) 08/24/2017 2:28 PM Documents on File Type Date Recorded Patient Rose Grader Expl anation Advance Directive(s) 08/24/2017 2:28 PM Advance Directive Response Recorded Date/ Time Advance Directives No August 31 9:44am Chief Complaint and Reason for Visit Chief Complaint 3 month f/u Reason for Visit Anemia Atrial fibrillation Hypercholesterolemia Hypertension Obesity REMY (obstructive sleep apnea) Additional Source Comments (unrecognized sect ion and content) No Status Records FoundNo Status Records FoundNo Status Records FoundNo Status Records FoundNo Status Records FoundNo Status Records Found INFORMATION SOURCE (unrecogn ized section and content) DATE CREATED AUTHOR 11/10/2017 [facility] DATE CREATED AUTHOR AUTHOR'S ORGANIZ ATION 06/26/2022 [facility] DATE CREATED AUTHOR AUTHOR'S ORGANIZ ATION 01/21/[address] [facility] DATE CREATED AUTHOR AUTHOR'S ORGANIZ ATION 01/21/2023 [facility] DATE CREATED AUTHOR AUTHOR'S ORGANIZ ATION 03/31/2023 [facility] DATE CREATED AUTHOR AUTHOR'S ORGANIZ ATION 12/11/2023 [facility] Source Comments (unrecognize d section and content) In the event this informatio n is protected by the Federal Confidentiality of Alcohol and Drug Abuse Patient Records regulations: The Federal rules restrict any use of the information to criminally investigate or prosecute any alcohol or drug abuse patient.[facility] HospitalIn the event this information is protected by the Federal Confidentiality of Alcohol and Drug Abuse Patient Records regulations: The Federal rules restrict any use of the information to criminally investigate or prosecute any alcohol or drug abuse patient.[facility] HospitalIn the event this information is protected by the Federal Confidentiality of Alcohol and Drug Abuse Patient Records regulations: The Federal rules restrict any use of the information to criminally investigate or prosecute any alcohol or drug abuse patient.[facility] HospitalIn the event this information is protected by the Federal Confidentiality of Alcohol and Drug Abuse Patient Records regulations: The Federal rules restrict any use of the information to criminally investigate or prosecute any alcohol or drug abuse patient.[facility] Reason for Visit (unrecogniz ed section and content) Reason Comments Follow Up Reason Comments Radio Gen A21 Care Teams (unrecognized sec tion and content) 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 Specialty Start Date End Date Alvin Contreras, DO [address] [place] [address] PCP - General Internal Medicine 06/19/17 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 Specialty Start Date End Date Alvin Contreras Juanjose, DO [address] [place] [address] PCP - General Internal Medicine 06/19/17 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 Specialty Start Date End Date Alvin Contreras Juanjose [address] [place] [address] PCP - General Internal Medicine 06/19/17 Team Status: Active Member Role Status Dates Alvin Contreras DO Primary Care Provider Active Team Status: Active Member Role Status Dates Alvin Contreras DO Primary Care Provide r, Attending Provider Active Start: December 01, 2023 Team Status: Inactive Member Role Status Dates Alvin Contreras DO Primary Care Provide r, Attending Provider Active Start: December 03, 2023 End: December 03, 2023 Goals (unrecognized section and content) Goals may be documented in a n alternate section FOR RECORDS PERTAINING TO PATIENTS WHO ARE [...] BE BASED ON THE PRIMARY CLINICAL RECORDS. [employer] [facility]. provides no warranty or guarantee of the accuracy or completeness of information in this document.
== END 2023-12-30 10:40 | disposition home or self-care (01) ==
LOC: EC 10:39
PROVIDERS: PCP Internal Medicine; Visit Provider Podiatrist Foot & Ankle Surgery
DX: M25.571 Pain in right ankle and joints of right foot (principal); Z98.890 Other specified postprocedural states
CPT/HCPCS: 73610

== ENCOUNTER 2024-01-08 14:19 | Outpatient (RCR) | payer MEDICARE, OTHER, SELFPAY | END 2024-03-19 08:50 | disposition home or self-care (01) | LOC: PT 14:19 | PROVIDERS: PCP Internal Medicine; Visit Provider Podiatrist Foot & Ankle Surgery | DX: M19.071 Primary osteoarthritis, right ankle and foot (principal) | CPT/HCPCS: 97010; 97110; 97112; 97140; 97162; G0283 ==

== ENCOUNTER 2024-03-10 10:07 | Outpatient (OUT) | payer MEDICARE, OTHER, SELFPAY ==
--- OUTSIDE RECORDS SUMMARY | 2024-03-10 10:27 | XMS_ITS | CCD ---
Author Organization [facility] Care Team Providers Care Machine Tool Dresser Name Role Phone PHYSICIAN, DEFAULT Unavailable Unavailable [...] Attending Unavailable ALVIN CONTRERAS Primary Care Unavailable Alvin Contreras Unavailable Alvin Contreras MD Primary Care Provider Nhan PhD, Bhavik Unavailable JR. LENIN, NIKKI Smith Attending Unavaila AMANDA Anders Attending Unavailable REINA SCHNEIDER Referring Unavailable AMANDA BETTENCOURT Attending Unavailable DREA LINO Attending Unavailable ALPESH JENKINS Admitting Unavailable ALPESH JENKINS Attending Unavailable ALPESH JENKINS Referring Unavailable TEE NAGY Referring Unavailable LAPESH JENKINS Referring Unavailable ALPESH JENKINS Referring Unavailable Allergies Allergy Classification Reported Allergen(s) Allergy Type Date of Onset Reaction(s) Facility (2 sources) meperidine Drug Allergy 4 [facility] (6 sources) Penicillins; Translations: [PENICILLINS] Drug allergy (disorder) 2 AOF, Unknown Reaction [facility] (4 sources) Penicillins Drug Allergy 4 Hives [facility] (6 sources) Insects Extract; Translations: [INSECTS EXTRACT] Drug Allergy 1 Other: See Comments [facility] (3 sources) atorvastatin Drug Allergy 4 Unknown, Unknown Reaction [facility] (2 sources) Penicillin Drug Allergy Unknown [employer] Other (2 sources) Substance with penicillin structure and antibacterial mechanism of action (substance) Drug allergy Unknown [employer] Other (4 sources) Meperidine; Translations: [MEPERIDINE] Drug Allergy 8 [facility] (3 sources) Penicillins Drug Allergy 4 Hives, Rash, Other [facility] (1 source) carvedilol; Translations: [CARVEDILOL] Drug Allergy 3 [facility] (1 source) Metoprolol; Translations: [METOPROLOL] Drug Allergy 3 [facility] (1 source) nebivolol; Translations: [NEBIVOLOL] Drug Allergy 3 [facility] Medications Current Medications Medication Drug Class(es) Dates Sig (Normalized) Sig (Original) amLODIPine 10 mg oral tablet (10 sources) Dihydropyridine Calcium Channel Lisa Start: 09-01-2023 take 1 tablet by mouth in the morning amLODIPine (Norvasc) 10 MG tablet Take 10 mg by mouth in the morning. 09/01/2023 Active Start: 11-21-2020 take 1 tablet by sudhakar th once daily amLODIPine Besylate 10MG amLODIPine Besylate 10MG, 1 (one) Tablet Tablet Tablet Tablet daily # 0, 11/21/2020, No Refill. Active Oral daily *Pick strength-form from [employer] for eRX* Nov, Active Start: 08-02-2018 take 4 tablets by mo uth twice daily amLODIPine (NORVASC) 2.5 mg tablet [...] Active flecainide acetate 100 mg oral tablet (10 sources) Antiarrhythmic Start: 12-03-2023 take 50 mg by mouth every twelve hours Flecainide Active 50 MG PO Every 12 hours December 03, 2023 11:02am Start: 10-08-2023 flecainide (Ta mbocor) 100 MG tablet Take 50 mg by mouth in the morning and 50 mg before bedtime. 10/08/2023 Active Start: 09-01-2023 End: 12-03-2023 take 100 mg by mouth every twelve hours Flecainide Discontinued 100 MG PO Every 12 hours September 01, 2023 12:00am December 03, 2023 11:03am Start: 04-04-2022 Flecainide Osmar brown 100MG Flecainide Acetate( 100MG Oral 1 two times daily ) Active -Hx Entry Oral two times daily *Pick strength-form from [employer] for eRX* Mar, Active Start: 10-08-2021 flecainide (TA MBOCOR) 100 mg tablet hydroCHLOROthiazide 25 mg / losartan potassium 100 mg oral tablet (8 sources) Thiazide Diuretic, Angiotensin 2 Receptor Lisa Start: 09-01-2023 take 1 tablet by mouth once daily losartan-hydroCHLOROthiazide (Hyzaar) 100-25 MG tablet Take 1 tablet by mouth Daily 09/01/2023 Active Start: 03-20-2017 take 1 tablet by sudhakar th once daily losartan-hydrochlorothiazide (HYZAAR) 10 0-25 mg per tablet Indications: Neoplasm of unspecified behavior of bone, soft tissue, and skin Take 1 tablet by mouth once daily. 0 03/20/2017 Active Comment on above: Take 1 tablet by sudhakar once daily. Losartan Potassium-HCTZ 100-25MG (2 sources) Start: 2 Losartan Potassium-HCTZ 100-25MG Losartan Potassium-HCTZ( 100-25MG Oral ) Active -Hx Entry Oral *Pick strength-form from [employer] for eRX* 16 Mar, 2022 Active magnesium citrate 58.2 mg/ml oral solution (3 sources) magnesium citrat e solution Take by mouth Active Multivitamin With Iron (1 source) Start: 4 take 1 tablet by mouth once daily Multivitamin With Iron Active 1 TAB PO Daily September 01, 2023 12:00am Potassium gluconate (3 sources) POTASSIUM GLUCON ATE PO Take by mouth Active ubidecarenone 100 mg oral tablet (3 sources) take 10 tablets by mouth once daily Coenzyme Q10 100 MG tablet Take 100 mg by mouth Daily Active Completed/Discontinued Medications Medication Drug Class(es) Dates [...] fibrillation] Onset: 08-24-2017 08-24-2017 Chronic Cardiac dysrhythmias (3 sources) Palpitations; Translations: [PALPITATIONS] Onset: 06-12-2022 Episodic Deficiency [...] externum unspecified eye, unspecified eyelid] 09-01-2023 Episodic Malaise and fatigue (2 sources) Asthenia; Translations: [Weakness] 02-22-2024 Episodic Osteoarthritis (2 sources) Localized, primary osteoarthritis [...] of left ankle] Onset: 01-13-2023 Chronic Other nervous system disorders (3 sources) Idiopathic peripheral neuropathy; Translations: [Hereditary and idiopathic neuropathy, unspecified] 02-22-2024 Chronic Other nervous system disorders (2 sources) Common peroneal neuropathy; Translations: [Lesion of sciatic nerve, right lower limb] 02-22-2024 Chronic Other nervous system disorders (2 sources) Numbness and tingling sensation of skin; Translations: [Anesthesia of skin] 02-22-2024 Episodic Other non-traumatic joint disorders (5 sources) Chronic [...] 06-30-2019 Episodic Other aftercare (1 source) 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 Nerveson 02-24-2024 EMG/NCS BLE Severe sensory-motor polyneuropathy. [facility] 4Soilscar e HPon 12-09-2023 [facility] Electrophysiology Consult Note Reason for visit: Afib [...] This was followed up with [facility] with [facility] protocol which was negative for inducible [...] This was followed up with [facility] with [facility] protocol which was negative for inducible [...] Date CARDIAC CATHETERIZATION (more content not included)... [facility] [place] NURSNOTEon 12-09-2023 NURSNOTE RN educated pt on d/ c instructions. RN encouraged pt to voice any questions or concerns. Pt verbalizes no questions or concerns at this time. Pt walked off of unit with all of belongings. [facility] [place] 36on 12-02-2023 36 Regarding echo resul t from 11/24/2023: NILA Avitia MA; Alpesh Jenkins MD Severe biatrial enlargement LV systolic function low end of normal 50-55% RV normal size and function, normal rt sided pressures- no fluid overload LM on patient's VM. [facility] [place] Basophils Auto (Bld) [#/Vol] on 12-01-2023 Basophils (Bld) [#/Vol] 0.0 10 3/uL 0.0-0.1 [facility] Basophils/100 WBC Auto (Bld) on 12-01-2023 Basophils/100 WBC (Bld) 0.5 % 0.2-2.0 [facility] Eosinophils/100 WBC Auto (Bl d)on 12-01-2023 Eosinophils/100 WBC (Bld) 1.1 % 0.9-7.0 [facility] Erythrocyte distribution wid th Auto (RBC) [Ratio]on 12-01-2023 Erythrocyte distribution width (RBC) [Ratio] 12.8 % 11.0-15.0 [facility] Hematocrit Auto (Bld) [Volum e fraction]on 12-01-2023 Hematocrit (Bld) [Volume fraction] 40.8 % Low 42.0-54.0 [facility] Hemoglobin [Mass/volume] in Bloodon 12-01-2023 Hemoglobin (Bld) [Mass/Vol] 13.6 g/dL Low 14.0-18.0 [facility] Laboratory - Hematology and Cell countson 12-01-2023 Immature granulocytes/100 WBC (Bld) 0.3 % 0.0-0.5 [facility] Leukocytes [#/volume] correc evelyne for nucleated erythrocytes in Blood by Automated counon 12-01-2023 WBC corrected for nucl RBC Auto (Bld) [#/Vol] 6.4 10 3/uL 4.0-11.0 [facility] Lymphocytes Auto (Bld) [#/Vo l]on 12-01-2023 Lymphocytes (Bld) [#/Vol] 1.3 10 3/uL 1.2-3.8 [facility] Lymphocytes/100 WBC Auto (Bl d)on 12-01-2023 Lymphocytes/100 WBC (Bld) 20.7 % 20.5-60.0 [facility] MCH Auto (RBC) [Entitic mass ]on 12-01-2023 MCH (RBC) [Entitic mass] 31.7 pg 25.9-34.0 [facility] MCHC Auto (RBC) [Mass/Vol]on 12-01-2023 MCHC (RBC) [Mass/Vol] 33.3 g/dL 29.9-35.2 [facility] MCV Auto (RBC) [Entitic vol] on 12-01-2023 MCV (RBC) [Entitic vol] 95.1 fL High 80.0-94.0 [facility] Monocytes Auto (Bld) [#/Vol] on 12-01-2023 Monocytes (Bld) [#/Vol] 0.8 10 3/uL 0.3-0.8 [facility] Monocytes/100 WBC Auto (Bld) on 12-01-2023 Monocytes/100 WBC (Bld) 11.8 % 1.7-12.0 [facility] Neutrophils Auto (Bld) [#/Vo l]on 12-01-2023 Neutrophils (Bld) [#/Vol] 4.2 10 3/uL 1.4-6.5 [facility] Neutrophils/100 WBC Auto (Bl d)on 12-01-2023 Neutrophils/100 WBC (Bld) 65.6 % 43.0-75.0 [facility] No Panel Informationon 11-30 Eosinophils # (Auto) 0.1 10 3/uL 0.0-0.7 [facility] Immature Granulocyte # (Auto) 0.02 10 3/uL 0.00-0.03 [facility] Platelet mean volume Auto (B ld) [Entitic vol]on 12-01-2023 Platelet mean volume (Bld) [Entitic vol] 8.9 fL Low 9.5-13.5 [facility] Platelets Auto (Bld) [#/Vol] on 12-01-2023 Platelets (Bld) [#/Vol] 265 10 3/uL 150-450 [facility] RBC Auto (Bld) [#/Vol]on RBC (Bld) [#/Vol] 4.29 10 6/uL Low 4.70-6.10 [facility] Office Visiton 11-10-2023 Follow-up visit [id number] Lucinda Sharma 1950 M Date Provider Department Center 11/10/2023 DREA STOVALL CARD [facility] Family History Problem Relation Age of Onset Coronary artery disease Other Hypertension Other Family Status - Relation Status Age at Other Level of Service:28513 DC OFFICE/OUTPATIENT ESTABLISHED MOD MDM 30 MIN Reason for Visit and Comments: Atrial Fibrillation [80] [facility] [place] Orders Onlyon 05-29-2023 Orders Only [id number] Lucinda Sharma 1950 M Date Provider Department Center 05/29/2023 Zane-J CARLOS COOK Family History Problem Relation Age of Onset Coronary artery disease Other Hypertension Other Family Status - Relation Status Age at Other Normal [place] CNOVon 01-13-2023 CNOV Office Visit (ORF[facility] ) BANG SHARMA ([id number]) 1950 M Date Time Provider Department 01/13/23 2:30 PM HARESH PINEDA [facility] During your visit today, we recorded the following information about you: Haresh Pineda MD 01/13/2023 4:19 PM Signed Orthopaedic Surgery Follow-Up Clinic Note Surgery/Date: 08/27/2017 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 (CPT 66227 - 22) Placement of Prophylactic Carbon Fiber Tibial Nail, Right Tibia (CPT 85635) High Speed Gardiner and Adjuvant Treatment with 10% H202 (CPT 20055) Neruolysis and Dissection of Deep Peroneal Nerve (CPT 52217) Right Iliac Crest Marrow Aspiration/Davey ( CPT 98746) Diagnosis: Right Tibial Diaphysis Cartilage Lesion with [...] the date of the service which included [id number] patient care, completing clinical documentation, obtaining and/or [...] information added by medical student, resident, nurse, PICTURE BOOKER/PA-C that I have placed my signature directly below I have verified and either instructed them to document in a scribe function or document appropriately in the chart during the patient visit. Haresh Beavers (more content not included)... Normal [facility] XR ANKLE 3V AP/LAT/OBL LTon 01-13-2023 XR ANKLE 3V AP/LAT/OBL LT * * *Final Report* * * DATE OF EXAM: Jan 13 2023 2:19PM AOX 5298 - XR ANKLE 3V AP/LAT/OBL LT / PROCEDURE REASON: multiple diagnoses * * * * Physician Interpretation * * * * HISTORY: Chondrosarcoma (HCC) TECHNOLOGIST PROVIDED HISTORY (if applicable): follow up right lower leg (accession [id number]), left ankle pain and popping sensation (accession [id number]) TECHNIQUE: XR TIBIA FIBULA 2V AP/LAT RT, [...] SIGNIFICANT CHANGE. NO RADIOGRAPHIC SIGNS OF RECURRENCE. Manager Relationship: BARBARA Transcribe Date/Time: Jan 13 2023 4:43P Dictated by : JULISA WEAVER MD This examination was interpreted and the report reviewed and electronically signed by: JULISA WEAVER MD on Jan 13 2023 4:53PM EST [id number] Normal [facility] XR CHEST 2V FRONTAL/LATon XR CHEST [...] tissues: Spine degenerative changes IMPRESSION: See result Manager [facility] Transcribe Date/Time: Jan 15 2023 3:13P Dictated by : RIKKI PEDERSEN MD This examination was interpreted and the report reviewed and electronically signed by: RIKKI PEDERSEN MD on Jan 15 2023 3:14PM EST [id number] Normal [facility] XR TIBIA FIBULA 2V AP/LAT RT [...] applicable): follow up right lower leg (accession [id number]), left ankle pain and popping sensation (accession [id number]) TECHNIQUE: XR TIBIA FIBULA 2V AP/LAT RT, [...] SIGNIFICANT CHANGE. NO RADIOGRAPHIC SIGNS OF RECURRENCE. Manager [facility] Transcribe Date/Time: Jan 13 2023 4:43P Dictated by : JULISA WEAVER MD This examination was interpreted and the report reviewed and electronically signed by: JULISA WEAVER MD on Jan 13 2023 4:53PM EST [id number] Normal [facility] FLECAINEon 06-24-2022 FLECAINIDE 0.39 ug/ml Normal 0.20 - 1.00 [facility] Comment on above: Result Comment: Flec ainide reported as flecainide acetate. The reference range also is defined as flecaininde acetate. This test was developed and its performance characteristics determined by [employer]. It has not been cleared or approved by the Food and Drug Administration. Performed By: #### T SH, BMP, LIPID, ALT #### [facility] [address] [place] [address] Dr. Fidel Paige CBC AUTO DIFFon 06-09-2022 BASO # 0.0 103/ul Normal 0.0-0.1 [facility] Comment on above: Performed By: #### C BC #### [facility] [address] [place] [address] Dr. Fidel Paige Basophils/100 WBC (Bld) 0.6 % Normal 0.2-2.0 [facility] Comment on above: Performed By: #### C BC #### [facility] [address] [place] [address] Dr. Fidel Paige EO # 0.1 103/ul Normal 0.0-0.7 [facility] Comment on above: Performed By: #### C BC #### [facility] [address] [place] [address] Dr. Fidel Paige Eosinophils/100 WBC (Bld) 2.8 % Normal 0.9-7.0 [facility] Comment on above: Performed By: #### C BC #### [facility] [address] [place] [address] Dr. Fidel Paige Erythrocyte distribution width (RBC) [Ratio] 12.8 % Normal 11.0-15.0 [facility] Comment on above: Performed By: #### C BC #### [facility] [address] [place] [address] Dr. Fidel Paige Hematocrit (Bld) [Volume fraction] 41.9 % Critically low 42.0-54.0 [facility] Comment on above: Performed By: #### C BC #### [facility] [address] [place] [address] Dr. Fidel Paige Hemoglobin (Bld) [Mass/Vol] 14.1 g/dL Normal 14.0-18.0 [facility] Comment on above: Performed By: #### C BC #### [facility] [address] [place] [address] Dr. Fidel Paige IG # 0.01 10e3/ul Normal 0.00-0.03 [facility] Comment on above: Performed By: #### C BC #### [facility] [address] [place] [address] Dr. Fidel Paige IG % 0.2 % Normal 0.0-0.5 [facility] Comment on above: Performed By: #### C BC #### [facility] [address] [place] [address] Dr. Fidel Paige LYMPH # 1.4 103/ul Normal 1.2-3.8 [facility] Comment on above: Performed By: #### C BC #### [facility] [address] [place] [address] Dr. Fidel Paige Lymphocytes/100 WBC (Bld) 29.2 % Normal 20.5-60.0 [facility] Comment on above: Performed By: #### C BC #### [facility] [address] [place] [address] Dr. Fidel Paige MANUAL DIFF REQ NO Normal [facility] Comment on above: Performed By: #### C BC #### [facility] [address] [place] [address] Dr. Fidel Paige MCH (RBC) [Entitic mass] 31.3 pg Normal 25.9-34.0 [facility] Comment on above: Performed By: #### C BC #### [facility] [address] [place] [address] Dr. Fidel Paige MCHC (RBC) [Mass/Vol] 33.7 g/dL Normal 29.9-35.2 [facility] Comment on above: Performed By: #### C BC #### [facility] [address] [place] [address] Dr. Fidel Paige MCV (RBC) [Entitic vol] 92.9 fL Normal 80.0-94.0 [facility] Comment on above: Performed By: #### C BC #### [facility] [address] [place] [address] Dr. Fidel Paige MONO # 0.7 103/ul Normal 0.3-0.8 [facility] Comment on above: Performed By: #### C BC #### [facility] [address] [address] [address] Fidel Paige Monocytes/100 WBC (Bld) 13.4 % Critically high 1.7-12.0 [facility] Comment on above: Performed By: #### C BC #### [facility] [address] [address] [address] Fidel Paige NEUT # 2.7 103/ul Normal 1.4-6.5 [facility] Comment on above: Performed By: #### C BC #### [facility] [address] [address] [address] Fidel Paige Neutrophils/100 WBC (Bld) 53.8 % Normal 43.0-75.0 [facility] Comment on above: Performed By: #### C BC #### [facility] [address] [place] [address] Dr. Fidel Paige Platelet mean volume (Bld) [Entitic vol] 8.7 fL Critically low 9.5-13.5 [facility] Comment on above: Performed By: #### C BC #### [facility] [address] [place] [address] Dr. Fidel Paige PLT 278 103/ul Normal 150-450 [facility] Comment on above: Performed By: #### C BC #### [facility] [address] [place] [address] Dr. Fidel Paige RBC 4.51 106/ul Critically low 4.70-6.[address] [facility] Comment on above: Performed By: #### C BC #### [facility] [address] [place] [address] Dr. Fidel Paige WBC 4.9 103/ul Normal 4.0-11.0 [facility] Comment on above: Performed By: #### C BC #### [facility] [address] [place] [address] Dr. Fidel Paige MAGNESIUMon 06-09-2022 Magnesium [Mass/Vol] 2.0 mg/dL Normal 1.8-2.4 [facility] Comment on above: Performed By: #### T SH, MG, BMP #### [facility] [address] [place] [address] Dr. Fidel Paige PROF CHEM 8 (BAS METB)on Anion gap [Moles/Vol] 8.2 mmol/L Normal [facility] Comment on above: Performed By: #### T SH, MG, BMP #### [facility] [address] [place] [address] Dr. Fidel Paige Calcium [Mass/Vol] 10.2 mg/dL Critically high 8.5-10.1 [facility] Comment on above: Performed By: #### T SH, MG, BMP #### [facility] [address] [place] [address] Dr. Fidel Paige Chloride [Moles/Vol] 105 mmol/L Normal 98-107 [facility] Comment on above: Performed By: #### T SH, MG, BMP #### [facility] [address] [place] [address] Dr. Fidel Paige CO2 [Moles/Vol] 29.6 mmol/L Normal 21.0-32.0 [facility] Comment on above: Performed By: #### T SH, MG, BMP #### [facility] [address] [place] [address] Dr. Fidel Paige Creatinine [Mass/Vol] 0.81 mg/dL Normal 0.70-1.30 [facility] Comment on above: Performed By: #### T SH, MG, BMP #### [facility] [address] [place] [address] Dr. Fidel Paige EGFR-AF ALBANIAN >60 Normal >=60 [facility] Comment on above: Performed By: #### T SH, MG, BMP #### [facility] [address] [place] [address] Dr. Fidel Paige EGFR-NON AF ALBANIAN >60 Normal >=60 [facility] Comment on above: Performed By: #### T SH, MG, BMP #### [facility] [address] [place] [address] Dr. Fidel Paige Glucose [Mass/Vol] 100 mg/dL Normal 74-106 [facility] Comment on above: Performed By: #### T SH, MG, BMP #### [facility] [address] [place] [address] Dr. Fidel Paige Potassium [Moles/Vol] 3.8 mmol/L Normal 3.5-5.1 [facility] Comment on above: Performed By: #### T SH, MG, BMP #### [facility] [address] [place] [address] Dr. Fidel Paige Sodium [Moles/Vol] 139 mmol/L Normal 136-145 [facility] Comment on above: Performed By: #### T BEATRIS, MG, BMP #### [facility] [address] [place] [address] Dr. Fidel Paige Urea nitrogen [Mass/Vol] 12.0 mg/dL Normal 7.0-18.0 [facility] Comment on above: Performed By: #### T BEATRIS MG, BMP #### [facility] [address] [place] [address] Dr. Fidel Paige Urea nitrogen/Creatinin e [Mass ratio] 14.8 mg/mg Normal [facility] Comment on above: Performed By: #### T BEATRIS, MG, BMP #### [facility] [address] [place] [address] Dr. Fidel Paige TSHon 06-09-2022 TSH 0.891 uIU/mL Normal 0.358-3.740 [facility] Comment on above: Performed By: #### T SH, MG, BMP #### [facility] [address] [place] [address] Dr. Fidel Paige CBC AUTO DIFFon 02-07-2022 BASO # 0.0 103/ul Normal 0.0-0.1 [facility] Comment on above: Performed By: #### T SH, BMP, LIPID, ALT #### [facility] [address] [place] [address] Dr. Fidel Paige Basophils/100 WBC (Bld) 0.3 % Normal 0.2-2.0 [facility] Comment on above: Performed By: #### T SH, BMP, LIPID, ALT #### [facility] [address] [place] [address] Dr. Fidel Paige EO # 0.1 103/ul Normal 0.0-0.7 [facility] Comment on above: Performed By: #### T SH, BMP, LIPID, ALT #### [facility] [address] [place] [address] Dr. Fidel Paige Eosinophils/100 WBC (Bld) 2.1 % Normal 0.9-7.0 [facility] Comment on above: Performed By: #### T SH, BMP, LIPID, ALT #### [facility] [address] [place] [address] Dr. Fidel Paige Erythrocyte distribution width (RBC) [Ratio] 13.1 % Normal 11.0-15.0 [facility] Comment on above: Performed By: #### T SH, BMP, LIPID, ALT #### [facility] [address] [place] [address] Dr. Fidel Paige Hematocrit (Bld) [Volume fraction] 45.2 % Normal 42.0-54.0 [facility] Comment on above: Performed By: #### T SH, BMP, LIPID, ALT #### [facility] [address] [place] [address] Dr. Fidel Paige Hemoglobin (Bld) [Mass/Vol] 14.8 g/dL Normal 14.0-18.0 [facility] Comment on above: Performed By: #### T SH, BMP, LIPID, ALT #### [facility] [address] [place] [address] Dr. Fidel Paige IG # 0.02 10e3/ul Normal 0.00-0.03 [facility] Comment on above: Performed By: #### T SH, BMP, LIPID, ALT #### [facility] [address] [place] [address] Dr. Fidel Paige IG % 0.3 % Normal 0.0-0.5 [facility] Comment on above: Performed By: #### T SH, BMP, LIPID, ALT #### [facility] [address] [address] [address] Fidel Paige LYMPH # 1.4 103/ul Normal 1.2-3.8 [facility] Comment on above: Performed By: #### T SH, BMP, LIPID, ALT #### [facility] [address] [address] [address] Fidel Paige Lymphocytes/100 WBC (Bld) 23.2 % Normal 20.5-60.0 [facility] Comment on above: Performed By: #### T SH, BMP, LIPID, ALT #### [facility] [address] [address] [address] Fidel Paige MANUAL DIFF REQ NO Normal [facility] Comment on above: Performed By: #### T SH, BMP, LIPID, ALT #### [facility] [address] [place] [address] Dr. Fidel Paige MCH (RBC) [Entitic mass] 31.6 pg Normal 25.9-34.0 [facility] Comment on above: Performed By: #### T SH, BMP, LIPID, ALT #### [facility] [address] [address] [address] Fidel Paige MCHC (RBC) [Mass/Vol] 32.7 g/dL Normal 29.9-35.2 [facility] Comment on above: Performed By: #### T SH, BMP, LIPID, ALT #### [facility] [address] [address] [address] Fidel Paige MCV (RBC) [Entitic vol] 96.6 fL Critically high 80.0-94.0 [facility] Comment on above: Performed By: #### T SH, BMP, LIPID, ALT #### [facility] [address] [address] [address] Fidel Paige MONO # 0.7 103/ul Normal 0.3-0.8 [facility] Comment on above: Performed By: #### T SH, BMP, LIPID, ALT #### [facility] [address] [address] [address] Fidel Paige Monocytes/100 WBC (Bld) 11.7 % Normal 1.7-12.0 [facility] Comment on above: Performed By: #### T SH, BMP, LIPID, ALT #### [facility] [address] [address] [address] Fidel Paige NEUT # 3.6 103/ul Normal 1.4-6.5 [facility] Comment on above: Performed By: #### T SH, BMP, LIPID, ALT #### [facility] [address] [place] [address] Dr. Fidel Paige Neutrophils/100 WBC (Bld) 62.4 % Normal 43.0-75.0 [facility] Comment on above: Performed By: #### T SH, BMP, LIPID, ALT #### [facility] [address] [place] [address] Dr. Fidel Paige Platelet mean volume (Bld) [Entitic vol] 8.8 fL Critically low 9.5-13.5 [facility] Comment on above: Performed By: #### T SH, BMP, LIPID, ALT #### [facility] [address] [place] [address] Dr. Fidel Paige PLT 283 103/ul Normal 150-450 [facility] Comment on above: Performed By: #### T SH, BMP, LIPID, ALT #### [facility] [address] [place] [address] Dr. Fidel Paige RBC 4.68 106/ul Critically low 4.70-6.[address] [facility] Comment on above: Performed By: #### T SH, BMP, LIPID, ALT #### [facility] [address] [place] [address] Dr. Fidel Paige WBC 5.8 103/ul Normal 4.0-11.0 [facility] Comment on above: Performed By: #### T SH, BMP, LIPID, ALT #### [facility] [address] [place] [address] Dr. Fidel Paige LIPID PROFILEon 02-07-2022 CHOL-HDL RATIO NORM SEE BELOW Normal [facility] Comment on above: Result Comment: 3.3 - 4.4 LOW RISK 4.4 - 7.1 AVERAGE RISK 7.1 - 11.0 MODERATE RISK >11.0 HIGH RISK Performed By: #### T SH, BMP, LIPID, ALT #### [facility] [address] [address] [address] Fidel Paige Cholesterol [Mass/Vol] 191 mg/dL Normal <=200 [facility] Comment on above: Performed By: #### T SH, BMP, LIPID, ALT #### [facility] [address] [address] [address] Fidel Paige Cholesterol in HDL [Mass/Vol] 42 mg/dL Normal 40-60 [facility] Comment on above: Performed By: #### T SH, BMP, LIPID, ALT #### [facility] [address] [place] [address] Dr. Fidel Paige Cholesterol in LDL [Mass/Vol] 118.0 mg/dL Normal [facility] Comment on above: Performed By: #### T SH, BMP, LIPID, ALT #### [facility] [address] [place] [address] Dr. Fidel Paige Cholesterol.total/ Cholesterol in HDL [Mass ratio] 4.5 {ratio} Normal [facility] Comment on above: Performed By: #### T SH, BMP, LIPID, ALT #### [facility] [address] [place] [address] Dr. Fidel Paige HDL NORMAL > or = 60 mg/dl - LO W CARDIOVASCULAR RISK <40 mg/dl - HIGH CARDIOVASCULAR RISK Normal [facility] Comment on above: Performed By: #### T SH, BMP, LIPID, ALT #### [facility] [address] [place] [address] Dr. Fidel Paige LDL CALC NORMAL SEE BELOW Normal [facility] Comment on above: Result Comment: <100 mg/dl OPTIMAL 100 - 129 mg/dl NEAR OR ABOVE OPTIMAL 130 - 159 mg/dl BORDERLINE HIGH 160 - 189 mg/dl HIGH >190 mg/dl VERY HIGH Performed By: #### T SH, BMP, LIPID, ALT #### [facility] [address] [address] [address] Fidle Paige Triglyceride [Mass/Vol] 155 mg/dL Critically high <=150 [facility] Comment on above: Performed By: #### T SH, BMP, LIPID, ALT #### [facility] [address] [address] [address] Fidel Paige VLDL CALC 31.0 mg/dL Normal [facility] Comment on above: Performed By: #### T SH, BMP, LIPID, ALT #### [facility] [address] [address] [address] Fidel Paige PROF CHEM 8 (BAS METB)on Anion gap [Moles/Vol] 11.0 mmol/L Normal [facility] Comment on above: Performed By: #### T SH, BMP, LIPID, ALT #### [facility] [address] [place] [address] Dr. Fidel Paige Calcium [Mass/Vol] 10.1 mg/dL Normal 8.5-10.1 [facility] Comment on above: Performed By: #### T SH, BMP, LIPID, ALT #### [facility] [address] [address] [address] Fidel Paige Chloride [Moles/Vol] 105 mmol/L Normal 98-107 [facility] Comment on above: Performed By: #### T SH, BMP, LIPID, ALT #### [facility] [address] [place] [address] Dr. Fidel Paige CO2 [Moles/Vol] 29.0 mmol/L Normal 21.0-32.0 [facility] Comment on above: Performed By: #### T SH, BMP, LIPID, ALT #### [facility] [address] [place] [address] Dr. Fidel Paige Creatinine [Mass/Vol] 0.85 mg/dL Normal 0.70-1.30 [facility] Comment on above: Performed By: #### T SH, BMP, LIPID, ALT #### [facility] [address] [place] [address] Dr. Fidel Paige EGFR-AF ALBANIAN >60 Normal >=60 [facility] Comment on above: Performed By: #### T SH, BMP, LIPID, ALT #### [facility] [address] [address] [address] Fidel Paige EGFR-NON AF ALBANIAN >60 Normal >=60 [facility] Comment on above: Performed By: #### T SH, BMP, LIPID, ALT #### [facility] [address] [address] [address] Fidel Paige Glucose [Mass/Vol] 101 mg/dL Normal 74-106 [facility] Comment on above: Performed By: #### T SH, BMP, LIPID, ALT #### [facility] [address] [place] [address] Dr. Fidel Paige Potassium [Moles/Vol] 4.0 mmol/L Normal 3.5-5.1 [facility] Comment on above: Performed By: #### T SH, BMP, LIPID, ALT #### [facility] [address] [place] [address] Dr. Fidel Paige Sodium [Moles/Vol] 141 mmol/L Normal 136-145 [facility] Comment on above: Performed By: #### T SH, BMP, LIPID, ALT #### [facility] [address] [place] [address] Dr. Fidel Paige Urea nitrogen [Mass/Vol] 13.0 mg/dL Normal 7.0-18.0 [facility] Comment on above: Performed By: #### T SH, BMP, LIPID, ALT #### [facility] [address] [place] [address] Dr. Fidel Paige Urea nitrogen/Creatinin e [Mass ratio] 15.3 mg/mg Normal [facility] Comment on above: Performed By: #### T SH, BMP, LIPID, ALT #### [facility] [address] [place] [address] Dr. Fidel Paige SGPTon 02-07-2022 ALT [Catalytic activity/Vol] 26 U/L Normal 16-63 [facility] Comment on above: Performed By: #### T SH, BMP, LIPID, ALT #### [facility] [address] [place] [address] Dr. Fidel Paige TSHon 02-07-2022 TSH 0.856 uIU/mL Normal 0.358-3.740 [facility] Comment on above: Performed By: #### T SH, BMP, LIPID, ALT #### [facility] [address] [address] [address] Fidel Paige XR CHEST 2V FRONTAL/LATon [facility] US VENOUS DOPPLER L Cristian US [...] by: TIFFANY GUPTA Date: 2021-10-10 12:51 Normal [facility] Vital Signs Date Time Vital Sign Value Performing Clinician Facility 02-22-2024 10:41-0500 Body height 189.2 cm Amanda Rut DO Work Phone: [facility] 02-22-2024 10:41-0500 Body mass index (BMI) [Ratio] 32.18 kg/m2 Amanda Rut DO Work Phone: [facility] 02-22-2024 10:41-0500 Body weight 115.21 kg Amanda Rut DO Work Phone: [facility] 02-22-2024 10:41-0500 Diastolic blood pressure 86 mm[Hg] Amanda Rut DO Work Phone: [facility] 02-22-2024 10:41-0500 Heart rate 88 /min Amanda Rut DO Work Phone: [facility] 02-22-2024 10:41-0500 SaO2% (BldA) [Mass fraction] 99 % Amanda Rut DO Work Phone: [facility] 02-22-2024 10:41-0500 Systolic blood pressure 142 mm[Hg] Amanda Rut DO Work Phone: [facility] 12-03-2023 11:04-0400 Body height 185.42 cm [facility] 12-03-2023 11:04-0400 Body mass index (BMI) [Ratio] 33.8 kg/m2 [facility] 12-03-2023 11:04-0400 Body weight 116.28 kg [facility] 12-03-2023 11:04-0400 Diastolic blood pressure 86 mm[Hg] [facility] 12-03-2023 11:04-0400 Heart rate 71 /min [facility] 12-03-2023 11:04-0400 Respiratory rate 12 /min [facility] 12-03-2023 11:04-0400 Systolic blood pressure 130 mm[Hg] [facility] Encounters Encounter Date Encounter Type Care Provider Facility Start: 03-07-2024 ambulatory [facility] Start: 02-24-2024 End: 02-24-2024 ambulatory AMANDA RUT Not Available Start: 02-24-2024 End: 02-24-2024 Patient encounter procedure Amanda Rut DO Work Phone: [facility] Comment on above: Idiopathic periphera l neuropathy Start: 02-22-2024 End: 02-22-2024 Bamboo flowsheet Amanda Rut DO Work Phone: [facility] Start: 02-22-2024 End: 02-22-2024 Bamboo flowsheet Amanda Rut DO Work Phone: [facility] Start: 02-22-2024 End: 02-22-2024 ambulatory AMANDA RUT Not Available Start: 02-22-2024 End: 02-22-2024 Office outpatient new 45 minutes Amanda Rut DO Work Phone: [facility] Comment on above: Idiopathic periphera l neuropathy (Primary Dx); 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; Weakness; Numbness and tingling Start: 02-11-2024 ambulatory [facility] Start: 02-02-2024 ambulatory [facility] Start: 01-21-2024 ambulatory TEE NAGY [place] Start: 12-09-2023 End: 12-09-2023 ambulatory ALPESH JENKINS [place] Start: 12-03-2023 End: 12-03-2023 ambulatory [facility] Work Phone: Start: 12-03-2023 End: 12-03-2023 Patient encounter procedure [facility] Work Phone: Start: 12-01-2023 Non-patient / Non-visit [facility] Work Phone: Start: 11-10-2023 End: 11-10-2023 ambulatory DREA ZOIE [place] Start: 06-04-2023 End: 06-04-2023 ambulatory Alvin Contreras Other [employer] Other Start: 06-04-2023 Encounter by sergio Contreras [facility] Start: 05-29-2023 End: 05-29-2023 ambulatory Alvin Contreras Other [employer] Other Start: 05-29-2023 Telephone encounter Alvin Contreras [facility] Start: 03-30-2023 End: 03-30-2023 ambulatory NIKKI MITCHELL Not Available Start: 01-13-2023 End: 01-14-2023 ambulatory HARESH PINEDA Facility:[facility] Start: 01-12-2023 Orders Only Haresh Pineda MD Work Phone: Orthopaedics Comment on above: Chronic pain of left ankle (Primary Dx) Start: 11-17-2022 Orders Only Haresh Pineda MD Work Phone: Orthopa[facility]ics Comment on above: Chondrosarcoma (HCC) (Primary Dx) Start: 06-09-2022 End: 06-10-2022 ambulatory DREA LINO Facility: Start: 02-07-2022 End: 02-08-[address] ALVIN [...] 11-09-2017 End: 11-10-2017 Patient encounter DEFAULT PHYSICIAN Facility:[facility] Procedures Date Procedure Procedure Detail Performing Clinician Start: 02-24-2024 End: 02-24-2024 Needle emg ea extremty w/paraspinl area complete mAanda Bettencourt DO Work Phone: Start: 02-07-[address] JHONATHAN MERAZ [facility]N Comment on above: Performed By: #### T SH, BMP, LIPID, ALT #### [facility] [address] [place] [address] Dr. Fidel Paige Start: 11-05-2021 Radiologic exam ches t 2 views Eric Taylor APRN.PICTURE BOOKER Work Phone: Start: 11-05-2021 Radiologic examinati on tibia & fibula 2 views Eric Taylor APRN.PICTURE BOOKER Work Phone: Start: 06-30-2019 Adult depression scr eening assessment Haresh Pineda MD Work Phone: Plan of Treatment Date Care Activity Detail Author Start: 02-12-2025 Screening for malign ant neoplasm of colon [facility] Start: 04-05-2024 End: 04-05-2024 Patient encounter procedure 04/05/2024 1:45 PM EST Office Visit [facility] [address] [place] [address] Amanda Bettencourt DO [address] [place] [address] [facility] [address] Start: 02-24-2024 End: 02-24-2024 Patient encounter procedure 02/24/2024 1:00 PM EST Procedure Visit [facility] [address] [address] [place] [address] Amanda Bettencourt DO [address] [place] [address] [facility] Start: 02-22-2024 End: 02-21-2025 Cobalamin (Vitamin B12) [Mass/volume] in Serum or Plasma Vitamin B12 Lab Routine Idiopathic peripheral neuropathy Expected: 02/22/2024 (Approximate), Expires: 02/21/2025 [facility] Work Phone: Comment on above: Expected: 02/22/2024 (Approximate), Expires: 02/21/2025 Start: 02-22-2024 End: 02-21-2025 EMG 2 Extremities EMG 2 Extremities Neurology Routine Idiopathic peripheral neuropathy Expected: 02/22/2024 (Approximate), Expires: 02/21/2025 [facility] Comment on above: Expected: 02/22/2024 (Approximate), Expires: 02/21/2025 Start: 02-22-2024 End: 02-21-2025 Folate [Mass/volume] in Serum or Plasma Folate Lab Routine Idiopathic peripheral neuropathy Expected: 02/22/2024 (Approximate), Expires: 02/21/2025 [facility] Comment on above: Expected: 02/22/2024 (Approximate), Expires: 02/21/2025 Start: 02-22-2024 End: 02-21-2025 NVC 9-10 Nerves NVC 9-10 Nerves Neurology Routine Idiopathic peripheral neuropathy Expected: 02/22/2024 (Approximate), Expires: 02/21/2025 [facility] Comment on above: Expected: 02/22/2024 (Approximate), Expires: 02/21/2025 Start: 02-22-2024 End: 02-21-2025 Protein electrophoresis, serum Protein electrophoresis, serum Lab Routine Idiopathic peripheral neuropathy Expected: 02/22/2024 (Approximate), Expires: 02/21/2025 [facility] Comment on above: Expected: 02/22/2024 (Approximate), Expires: 02/21/2025 Start: 02-22-2024 End: 02-21-2025 Thyrotropin [Units/volume] in Serum or Plasma TSH Lab Routine Idiopathic peripheral neuropathy Expected: 02/22/2024 (Approximate), Expires: 02/21/2025 [facility] Comment on above: Expected: 02/22/2024 (Approximate), Expires: 02/21/2025 Start: 12-19-2022 Influenza vaccination C [facility] Start: 11-05-2022 End: 12-05-2022 Radiologic exam chest 2 views XR CHEST 2V FRONTAL/LAT Radiology Routine Chondrosarcoma (HCC) Expected: 11/05/2022 (Approximate), Expires: 12/05/2022 [facility] Work Phone: Comment on above: Expected: 11/05/2022 (Approximate), Expires: 12/05/2022 Start: 11-05-2022 End: 12-05-2022 XR TIBIA FIBULA 2V AP/LAT RIGHT XR TIBIA FIBULA 2V AP/LAT RIGHT Radiology Routine Chondrosarcoma (HCC) Expected: 11/05/2022 (Approximate), Expires: 12/05/2022 [facility] Work Phone: Comment on above: Expected: 11/05/2022 (Approximate), Expires: 12/05/2022 Start: 10-25-2022 DIABETES SCREEN DIABETES SCREEN [facility] Start: 10-25-2022 Diabetes Screening Diabetes Screenin g [facility] Start: 04-20-2022 ADVANCE DIRECTIVE DISCUSSION ADVANCE DIRECTIVE DISCUSSION [facility] Start: 04-20-2022 DEPRESSION ASSESSMENT DEPRESSION ASS ESSMENT [facility] Start: 12-19-2021 Influenza vaccination INFLUENZA (#1) [facility] Start: 11-18-2021 COVID-19 VACCINE (5 - Pfizer series) COVID-19 VACCINE (5 - Pfizer series) [facility] Start: 04-20-2021 ADVANCE DIRECTIVE DISCUSSION ADVANCE DIRECTIVE DISCUSSION [facility] Start: 06-29-2020 Adult depression screening assessment DEPRESSION SCREENING [facility] Start: 2014 Pneumococcal Vaccine : 65+ (1 - PCV) Pneumococcal Vaccine: 65+ (1 - PCV) [facility] Start: 06-01-2015 PNEUMOCOCCAL: 65+ (1 - PCV) PNEUMOCOCCAL: 65+ (1 - PCV) [facility] Start: 09-19-1999 SHINGRIX VACCINE (1 of 2) SHINGRIX VACCINE (1 of 2) [facility] Start: 1994 COLOGUARD (FIT-DNA) COLOGUARD (FIT-D NA) [facility] Start: 1994 Colonoscopy COLONOSCOPY [facility] Start: 1994 COLORECTAL CANCER SCREENING COLORECTAL CANCER SCREENING [facility] Start: [address] COLONOGRAPHY [facility] Start: 1994 FECAL OCCULT BLOOD FECAL OCCULT BLOO D [facility] Start: 1994 SIGMOIDOSCOPY SIGMOIDOSCOPY [facility] Start: 1984 Lipid 1996 panel - Serum or Plasma Lipid Screening [facility] Start: 1984 LIPID SCREEN LIPID SCREEN [facility] Start: 1968 Urine microalbumin profile [facility] Start: 09-19-1967 ANNUAL PCP TEAM [place] DISPATCHER L[place] ANN DISEASE VISIT ANNUAL PCP TEAM CHRONIC DISEASE VISIT [facility] Start: 09-19-1967 BP CONTROLLED (<130/80) BP CONTROLLE D (<130/80) [facility] Start: 09-19-1967 HEPATITIS C SCREENING HEPATITIS C SC REENING [facility] Start: 1949 Screening for malign ant neoplasm of colon [facility] End: 12-17-2023 Radiologic exam chest 2 views XR CHEST 2V FRONTAL/LAT Radiology Routine Chondrosarcoma (HCC) 1 Occurrences starting 11/17/2022 until 12/17/2023 [facility] Work Phone: Comment on above: 1 Occurrences starti ng 11/17/2022 until 12/17/2023 End: 02-11-2024 XR ANKLE GENERAL 3V AP/LAT/OBL LEFT XR ANKLE GENERAL 3V AP/LAT/OBL LEFT Radiology Routine Chronic pain of left ankle 1 Occurrences starting 01/12/2023 until 02/11/2024 [facility] Work Phone: Comment on above: 1 Occurrences starti ng 01/12/2023 until 02/11/2024 End: 12-17-2023 XR TIBIA FIBULA 2V AP/LAT RIGHT XR TIBIA FIBULA 2V AP/LAT RIGHT Radiology Routine Chondrosarcoma (HCC) 1 Occurrences starting 11/17/2022 until 12/17/2023 [facility] Work Phone: Comment on above: 1 Occurrences starti ng 11/17/2022 until 12/17/2023 XR TIBIA FIBULA 2V AP/LAT RT XR TIBIA FIBULA 2V AP/LAT RT Radiology Routine Chondrosarcoma (HCC) 11/05/2021 2:50 PM EDT [facility] Work Phone: [facility] Immunizations Immunization Date Immunization Notes Care Provider Fa jarek 02-10-2022 influenza virus vaccine, split virus (incl. purified surface antigen) Alvin Contreras Other [employer] Other 02-10-2022 influenza virus vaccine, unspecified formulation [facility] 05-29-2020 COVID-19 Vaccine Pfi zer - Documentation Purposes Only Alvin Contreras Other [facility] 10-02-2016 diphtheria, tetanus toxoids and acellular pertussis vaccine, unspecified formulation Alvin Contreras Other [facility] 03-23-2016 pneumococcal conjuga te vaccine, 13 valent Alvin Contreras Other [facility] 03-01-2009 pneumococcal polysaccharide vaccine, 23 valent Alvin Contreras Other [facility] 02-25-2006 diphtheria, tetanus toxoids and acellular pertussis vaccine, unspecified formulation Alvin Contreras Other [facility] Payers Date Payer Category Payer Medicare MEDICARE MEDICAR E A AND B [id number] 2014-Present [phone] [place] [address] Medicare [id number] 2014 Medicare [id number] 2014 Private Health Insurance [employer] [place] [id number] 2014 Unknown 2014 Unknown [employer] 2N D [id number] 2014-Present [phone] [address] [address] [place] [address] Indemnity [id number] 2014 Unknown [id number] 1959 Medicare [id number] 1959 Unknown [id number] 1949 Unknown [id number] 1949 Unknown [id number] 1949 Unknown [id number] 1949 Unknown [id number] 1949 Unknown [id number] 1949 Unknown [id number] Social History Date Type Detail Facility [facility]: [facility] Start: 07-17-2017 End: 02-22-2024 Tobacco use and exposure Smokeless tobacco non-user [facility] Start: 1950 Sex Assigned At Male C [facility] Start: 10-26-2021 End: 11-05-2021 Exposure to SARS-CoV-2 (event) Not sure [facility] Start: 05-18-2022 End: 02-22-2024 History of Social function [facility] Start: 05-18-2022 End: 02-22-2024 Area Deprivation Index [facility] National Score (1-10 0), lower number is lower risk 60 [facility] Start: 11-23-2019 Sexual orientation Heterosexual (dirk gibson) [facility] Tobacco smoking stat [facility] Tobacco smoking consumption unknown [facility] Start: 1950 Sex assigned at Not on file [facility] Start: 02-22-2024 Tobacco smoking stat [facility] Ex-smoker [facility] History of tobacco use Current smoker [facility] History of tobacco use Cigarette Smoker [facility] Medical Equipment Procedure Code Equipment Code Equipment Origin al Text Equipment Identifier Dates Graft Enhance Demineralized Cortical Fiber Bone Allograft Dehydrate 2.5ml - [id number] Start: 08-27-2017 Graft Cancellous Chips Bone Void Freeze Dry 30ml (1.7-10mm) - [id number] Start: 08-27-2017 Graft Dbx Bone V oid Allograft Freeze Dried Putty 1ml - [id number] Start: 08-27-2017 Tibial Nail [id number] Start: 08-27-2017 Carbofix Titaniumscrew [id number] S tart: 08-27-2017 Carbofix Titaniu m Screw [id number] Start: 08-27-2017 Carbofix Titaniu m Screw [id number] Start: 08-27-2017 Carbofix Titaniu m Screw [id number] Start: 08-27-2017 Carbofix Titaniu m Screw [id number] Start: 08-27-2017 Clinical Notes 10-10-2021 to 02-24-2024 Geoff Joshua, CHADT - 02/24/2024 1:00 PM Makayla Bettencourt DO - 02/22/2024 10:30 AM EST Note Date & Type Note Facility 02-24-2024 History of Present illness Narrative Images from the original note were not included. Reason for Appointment: EMG Patient: Bang Sharma : 1950 EMG Computer: [employer] Referring Physician: Dr. Amanda Bettencourt EMG: BLE cut off saw grader: Geoff Joshua RT(R) Office Location: [place] Reason for EMG: c/o numbness/tingling in right foot/ankle. Hx of surgery to right lower leg. No hx of DM. Not on blood thinners. Comments: Procedure was explained to the patient & who expressed understanding. Patient appeared to have tolerated the test well despite some discomfort due to the nature of the test. documented in this encounter [facility] 02-22-2024 History of Present illness Narrative Images from the original note were not included. Chief Complaint Patient presents with Numbness Peripheral Neuropathy Subjective Bang Sharma, 73 y.o., male being seen in Neurology consultation at the request of Dr. Schneider. Dr. Contreras is his PCP. HPI Lower extremity numbness - labs @ [facility]; referral received from Dr Reina Schneider, LEATHA The patient states that his symptoms started about 6 months ago maybe longer. 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 He had that before the 6 months ago. 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 He has a large incision on that side. They got all the cancer. He does PT and exercises but does not have an AFO. He has numbness of the toes on his right foot. He had electrical stimulation done at therapy and he could not feel the pulsing. He has issues with balance and difficulty walking. His balance is with both feet and with moving his head. He thinks this worsened once he had COVID this past March. He has pain behind the ankle on the right. He also has pain in the left ankle but states it is due to arthritis. He is wondering if the chondrosarcoma could be in his ankle. He did not discuss that with Dr. Schneider. He states that they did talk about doing an MRI of the ankle. He is in physical therapy for balance now and states that this helping and ye is doing home exercises also. This does help with the pain, He does trip but had not had any major falls. After the surgery he had a harder time. He has a topical to put on the ankle that they do with e-stim but he has not had it as they do not have the order. He is on mobic and that is helping. Past Medical History: Diagnosis Date Afib (CMS/HCC) Heart disease HTN (hypertension) (CMS/[facility]) Past Surgical History: Procedure Laterality Date FEMUR CRISTÓBAL NAIL REMOVAL SPERMATOCELECTOMY TIBIA TRIGGER FINGER RELEASE Family History Problem Relation Name Age of Onset Kidney disease Mother Diabetes Mother Hypertension Mother Heart disease Mother Cancer Father Social History Tobacco Use Smoking status: Former Types: Cigarettes Smokeless tobacco: Never Substance Use Topics Alcohol use: Not on file Allergies: Penicillins and Meperidine General: No fever or chills HEENT: No nasal congestion or runny nose Pulmonary: No shortness of breath or cough Cardiovascular: No chest pain or palpitations GI: No nausea or vomiting : No dysuria or hematuria Musculoskeletal: leg pain weakness and paresthesias Infectious: no recurrent fevers or infections Dermatologic: No rashes or skin lesions Neurologic: No new headaches or dizziness Vitals: 02/22/24 1041 BP: 142/86 Pulse: 88 SpO2: 99% Body mass index is 32.18 kg/m . weight: 254 lb Neurologic exam: General: Normal body habitus, cooperative, pleasant Mental status: Awake, alert to person, place and time. Recent and remote memory are intact. Attention and concentration are normal. Fund of knowledge is appropriate for level of education. HEENT: NC/AT Cranial nerves: CN II: Visual mahajan full to confrontation. No loss of vision CN III, IV, : pupils equal round and reactive to light. Extraocular movements intact. No ptosis present. CN V: Facial sensation is normal. CN VII: Full and symmetric facial movement. CN VIII: Hearing is normal CN IX and X: Palate elevates symmetrically. CN XI: Shoulder shrug is normal bilaterally. CN XII: Tongue is midline without atrophy or fasciculation. Speech: Clear and fluent no aphasia or dysarthria Pronator drift: Negative bilateral upper extremity Coordination: Intact, no signs of dysmetria Good finger to nose and rapid alternating movements Sensory: Sensation is intact to light, temperature and vibratory touch throughout four extremities. Pinprick and vibratory Decreased in a stocking distribution bilaterally but worse on the right lateral aspect of the ankle area Motor: LUE 5/5 RUE 5/5 LLE 5/5 except in distal LE with weakness in dorsi and plantar flexion RLE 5/5 except in distal lower extremity with weakness in dorsi and plantar flexion and some right footdrop Tone: Physiologic, no tremor, bradykinesia or rigidity DTR: Bilateral Biceps 2/4 Bilateral BR 2/4 Bilateral Patellar 1/4 Bilateral Achilles tr/4 No spasticity Gait: Unsteady and steppage gait with the right foot slightly with the left Romberg's positive Review and summary of old records: Assessment/Plan Diagnoses and all orders for this visit: Idiopathic peripheral neuropathy - Vitamin B12; Future - TSH; Future - Folate; Future - Protein electrophoresis, serum; Future - NVC 9-10 Nerves; Future - EMG 2 Extremities; Future 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 Unfortunately they likely had to sacrifice the nerve to remove the mass lesion however reportedly they got the entire lesion. Patient has had a footdrop since then. He has decreased sensation on the lateral distal aspect of the leg. However this appears to be worsening and he is now having bilateral numbness tingling and weakness distally in the lower extremity. I suspect he may be developing an underlying peripheral neuropathy that is causing this bilaterally but worsening the symptoms on the right because of the baseline peroneal neuropathy. Patient needs an EMG to assess this further. He is currently getting physical therapy. He does have steppage gait primarily with the right but some with the left. He may benefit from an ankle-foot orthotic. He is going to take a note back to the physical therapy sees seen to see if this would be beneficial and we could write for that. He needs to be doing his home exercises. He is on Mobic which she states is helping his pain. He was offered gabapentin but does not feel he needs it at this time. He should be under fall precautions. He does not have DM. We will leave any workup for any possible reoccurrence of the chondrosarcoma to Dr. Schneider. Plan: I will order an electromyograph evaluation of the lower extremities to assess for nerve damage such as lumbar radiculopathy, lumbar plexopathy, or peripheral neuropathy. Consider an AFO on the right May need to consider a cane Labs for Peripheral Neuropathy We will leave any workup for any possible reoccurrence of the chondrosarcoma to Dr. Schneider. Apparently they discussed doing an MRI and this may be beneficial to rule that out versus a PET scan or bone scan. We will leave this to them. Fall precautions Cont PT and home exercises The diagnosis was all discussed with the patient. All questions were answered and they agreed with the treatment plan. Patient will call if there are any new issues or questions. Pt has been fully educated on their diagnosis, treatment options, follow up plan, and return instructions Return to clinic: 3 weeks documented in this encounter [facility] 12-09-2023 Note LOOP IMPLANT PROCEDU RE NOTE DATE OF PROCEDURE: 12/09/23 PERFORMING PHYSICIAN: Dr. Alpesh Jenkins REPAIR SPECIALIST: JERROD INDICATIONS FOR PROCEDURE: 1. SVT/AF surveillance [...] the sternum on the left using the [employer] tool. The loop recorder was then injected [...] the incision. Alpesh Jenkins MD Cardiac Electrophysiology. [place] 11-10-2023 Note Cardiovascular Medic in[facility] SUBJECTIVE Chief Complaint Patient presents with [...] This was followed up with [facility] with [facility] protocol which was negative for inducible [...] (260 lb) SpO2 (more content not included)... [place] 11-10-2023 Note Patient here today w ith [...] All other systems reviewed and are negative. [place] 05-29-2023 Evaluation note Encounter Date Diagnosis Assessment Notes May, Anemia (ICD-10 - D64.9) [employer] Other 09-26-2023 NoteHNO ID: [id number] Author: Keri Lopez RN Service: ? Author Type: Registered Nurse Type: Progress Notes Filed: 01/13/2023 4:19 PM Note Text: I served as a scribe during this office visit encounter. Keri Lopez [facility]09-26-2023 NoteHNO ID: [id number] Author: Ranjith Teixeira RT(R) Service: Radiology Author [...] BY: RT Mariel(R) January 13, 2023 2:20 [facility]09-26-2023 NoteHNO ID: [id number] Author: Haresh Pineda MD Service: ? 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 (CPT 08674 - 22) Placement of Prophylactic Carbon Fiber Tibial Nail, Right Tibia (CPT 70132) High Speed Gardiner and Adjuvant Treatment with 10% H202 (CPT 41247) Neruolysis and Dissection of Deep Peroneal Nerve (CPT 20245) Right Iliac Crest Marrow Aspiration/Davey ( CPT 11512) Diagnosis: Right Tibial Diaphysis Cartilage Lesion with [...] the date of the service which included [id number] patient care, completing clinical documentation, obtaining and/or [...] information added by medical student, resident, nurse, PICTURE BOOKER/PA-C that I have placed my signature directly below I have verified and either instructed them to document in a scribe function or document appropriately in the chart during the patient visit. Haresh Pineda MD straight knife machine cutter, CCLCM [facility] Machine Operator, Division of Musculoskeletal Oncology Co-Director of Sarcoma Care, [facility] Pager: [phone] (more content not included)...[facility] [phone] History of Present illness Narrative* Haresh Pineda MD - 11/05/2021 5:19 PM EDT This note was created using [employer] Interact[employer]. AAOS AMB SF ORT MST FU Advanced: Did this patient have an adverse event since their last encounter?: No * Haresh Pineda MD - 11/05/2021 4:07 PM EDT Orthopaedic Surgery Follow-Up Clinic Note Surgery/Date: 08/27/2017 1. 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 Placement of Prophylactic Carbon Fiber Tibial Nail, Right Tibia (CPT 30492) 3. High Speed Gardiner and Adjuvant Treatment with 10% H202 (CPT 48021) 4. Neruolysis and Dissection of Deep Peroneal Nerve (CPT 43184) 5. 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 Exam: RLE -- largely unchanged compared [...] the date of the service which included [id number] patient care, completing clinical documentation, obtaining and/or reviewing separately obtained history, performing a medically appropriate examination, counseling and educating the patient/family/caregiver, ordering medications, tests, or procedures, independently interpreting results (not separately reported) and communicating results to the patient/family/caregiver. Any information added by medical student, resident, nurse, PICTURE BOOKER/PAJayC that I have placed my signature directly below I have verified and either instructed them to document in a scribe function or document appropriately in the chart during the patient visit. Haresh Pineda MD straight knife machine cutter, CCLCM at [facility] Machine Operator, Division of Musculoskeletal Oncology Co-Director of Sarcoma Care, [facility] Pager: [phone] November 05, 2021 5:18 PM [facility] History of Present illness Narrative* RT [...] 05, 2021 2:49 PM [facility] NotePROCEDURE: XR FOREARM LT 2 VIEWS [...] Electronically authenticated by: TIFFANY GUPTA Date: 2021-10-10 12:28[facility] note* 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, site unspecified documented in this encounter [facility] note* 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, site unspecified documented in this encounter [facility] note* 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, site unspecified [facility] encounter [facility]* Diagnosis Chronic pain of left ankle- Primary documented in this encounter [facility] noteNo InformationNortGeising[facility] [employer] Other Evaluation note* Diagnosis Onset Date Resolution Status Anemia acute Atrial fibrillation acute Hypercholesterolemia acute Hypertension acute Obesity acute REMY (obstructive sleep apnea) acute [facility] Work Phone: Evaluation note* Diagnosis Idiopathic peripheral neuropathy- Primary Unspecified hereditary and idiopathic peripheral neuropathy 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 Weakness Other malaise and fatigue Numbness and tingling Disturbance of skin sensation documented in this encounter [facility]* Diagnosis Idiopathic peripheral neuropathy Unspecified hereditary and idiopathic peripheral neuropathy documented in this encounter [facility] general Narrative - Reported* Type Description Date [...] 2006 Surgical History Colonoscopy 2010 Surgical History C 2011 Surgical History Cardiac Ablation 2012 Surgical History Removal FB Right Hand 2016 Surgical History Resected Bone Right Tibia w/ ro d insertion 2018 Hospitalization History see surgical hx [place] [employer] Other Reason for referral (narrative)* Diagnostic Procedure Only (Routine) - Pending Review Specialty Diagnoses / Procedures Referred By Tigre kilpatrick Referred To Contact XR IMAGING Diagnoses Chondrosarcoma (HCC) Procedures XR TIBIA FIBULA 2V AP/LAT RIGHT RADIOLOGIC EXAMINATION TIBIA & FIBULA 2 VIEWS Haresh Pineda MD [address] [place] [address] Xr Imaging Referral ID Status Reason Start Date Expiration Date Visits Requested Visits Authorized [id number] Pending Review Auto-Generat ed Referral 11/05/2022 12/05/2022 1 1 [facility] for referral (narrative)* Diagnostic Procedure Only (Routine) - Pending Review Specialty Diagnoses / Procedures Referred By Contwarner t Referred To Contact XR IMAGING Diagnoses Chondrosarcoma (HCC) Procedures XR TIBIA FIBULA 2V AP/LAT RIGHT RADIOLOGIC EXAMINATION TIBIA & FIBULA 2 VIEWS Haresh Pineda MD [address] [place] [address] Xr Imaging Referral ID Status Reason Start Date Expiration Date Visits Requested Visits Authorized [id number] Pending Review Auto-Generat ed Referral 11/17/2022 12/17/2023 1 1 [facility] Hospital[facility] (narrative)* Diagnostic Procedure Only (Routine) - Authorized Specialty Diagnoses / Procedures Referred By Tigre kilpatrick Referred To Contact XR IMAGING Diagnoses Chronic pain of left ankle Procedures XR ANKLE GENERAL 3V AP/LAT/OBL LEFT RADEX ANKLE COMPLETE MINIMUM 3 VIEWS Valeri Quintero PA-C [address] [address] Xr Imaging [place] [address] Referral ID Status Reason Start Date Expiration Date Visits Requested Visits Authorized [id number] Authorized Auto-Generat ed Referral 01/12/2023 02/11/2024 1 1 [facility] Summary Purpose Family History No Family History Records Found Relationship Condition Age at Onset Recorded Date/T kayley father Malignant neoplasm Unknown Unknown mother Hypertension Unknown Diabetes mellitus Unknown Advance Directives No Advanced Directives Records FoundDocuments on File Type Date Recorded 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 Advance Directive(s) Advance Directive(s) 09/02/2018 11:24 AM Advance Directive(s) 08/26/2018 2:02 PM Advance Directive(s) 08/24/2017 2:28 PM Documents on File Type Date Recorded 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 Advance Directive(s) Advance Directive(s) 09/02/2018 11:24 AM Advance Directive(s) 08/26/2018 2:02 PM Advance Directive(s) 08/24/2017 2:28 PM Documents on File Type Date Recorded 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 Advance Directive(s) 08/24/2017 2:28 PM Advance Directive Response Recorded Date/ Time Advance Directives No August 31 4 9:44am Chief Complaint and Reason for Visit Chief Complaint 3 month f/u Reason for Visit Anemia Atrial fibrillation Hypercholesterolemia Hypertension Obesity REMY (obstructive sleep apnea) Additional Source Comments (unrecognized sect ion and content) No Status Records FoundNo Status Records FoundNo Status Records FoundNo Status Records FoundNo Status Records FoundNo Status Records Found INFORMATION SOURCE (unrecogn ized section and content) DATE CREATED AUTHOR 11/10/2017 [facility] DATE CREATED AUTHOR AUTHOR'S ORGANIZ ATION 06/26/2022 [facility] DATE CREATED AUTHOR AUTHOR'S ORGANIZ ATION 01/21/2023 [facility] DATE CREATED AUTHOR AUTHOR'S ORGANIZ ATION 01/21/2023 [facility] DATE CREATED AUTHOR AUTHOR'S ORGANIZ ATION 02/26/2024 [facility] EPIC DATE CREATED AUTHOR AUTHOR'S ORGANIZ ATION 03/09/2024 [facility] Source Comments (unrecognize d section and content) In the event this informatio n is protected by the Federal Confidentiality of Alcohol and Drug Abuse Patient Records regulations: The Federal rules restrict any use of the information to criminally investigate or prosecute any alcohol or drug abuse patient.[facility] HospitalIn the event this information is protected by the Federal Confidentiality of Alcohol and Drug Abuse Patient Records regulations: The Federal rules restrict any use of the information to criminally investigate or prosecute any alcohol or drug abuse patient.[facility] HospitalIn the event this information is protected by the Federal Confidentiality of Alcohol and Drug Abuse Patient Records regulations: The Federal rules restrict any use of the information to criminally investigate or prosecute any alcohol or drug abuse patient.[facility] HospitalIn the event this information is protected by the Federal Confidentiality of Alcohol and Drug Abuse Patient Records regulations: The Federal rules restrict any use of the information to criminally investigate or prosecute any alcohol or drug abuse patient.[facility] Reason for Visit (unrecogniz ed section and content) Reason Comments Follow Up Reason Comments Radio Gen A21 Reason Comments Numbness Peripheral Neuropathy Specialty Diagnoses / Procedures Referred By Contwarner t Referred To Contact Neurology Diagnoses Anesthesia of skin Procedures DC OFFICE/OUTPATIENT NEW LOW MDM 30 MINUTES Reina Schneider MD [address] [place] [address] [place] [address] Phone: tel: fax: Emmett Pineda, [address] [place] [address] Phone: tel: fax: Referral ID Status Reason Start Date Expiration Date V isits Requested Visits Authorized [id number] Closed Consult and Treat 02/11/2024 08/09/2024 1 1 Care Teams (unrecognized sec tion and content) Machine Tool Dresser Relationship Specialty Start Date End Date Alvin Contreras, [address] [facility] [place] [address] PCP - General Internal Medicine 06/19/17 Machine Tool Dresser Relationship Specialty Start Date End Date Alvin Contreras DO [address] [place], [place] [id number] PCP - General Internal Medicine 06/19/17 Machine Tool Dresser Relationship Specialty Start Date End Date Alvin Contreras DO [address] [facility] [place] [address] PCP - General Internal Medicine 06/19/17 Team [...] December 03, 2023 End: December 03, 2023 Machine Tool Dresser Relationship Specialty Start Date End Date Alvin Contreras MD [address] [place] [id number] PCP - General Internal Medicine 03/30/23 Machine Tool Dresser Relationship Specialty Start Date End Date Alvin Contreras MD [address] [place] [address] PCP - General Internal Medicine 03/30/23 Bhavik Justin, PhD [address] [place] [phone] Referring Physician Neuropsychology 02/22/24 Machine Tool Dresser Relationship Specialty Start Date End Date Alvin Contreras MD [address] [place] [address] PCP - General Internal Medicine 03/30/23 Bhavik Justin, PhD [address] [place] [phone] Referring Physician Neuropsychology 02/22/24 Goals (unrecognized section and content) Goals may [...] BE BASED ON THE PRIMARY CLINICAL RECORDS. [facility] [employer] provides no warranty or guarantee of the accuracy or completeness of information in this document.
[2024-03-10 10:33] LABS: Basophils Percent Auto 0.7 % (0.2-2.0); Eosinophils Absolute Auto 0.2 10^3/uL (0.0-0.7); Eosinophils Percent Auto 2.5 % (0.9-7.0); Immature Granulocytes Abs Auto 0.01 10^3/uL (0.00-0.03); Immature Granulocytes Pct Auto 0.2 % (0.0-0.5); Lymphocytes Absolute Auto 1.4 10^3/uL (1.2-3.8); Mean Corpuscular HGB Conc 32.6 g/dL (29.9-35.2); Mean Corpuscular Hemoglobin 31.6 pg (25.9-34.0); Mean Corpuscular Volume 97.1 fL (80.0-94.0); Monocytes Absolute Auto 0.7 10^3/uL (0.3-0.8); Monocytes Percent Auto 11.5 % (1.7-12.0); Neutrophils Absolute Auto 3.7 10^3/uL (1.4-6.5); Neutrophils Percent Auto 62.1 % (43.0-75.0); Platelet Count 274 10^3/uL (150-450); Red Blood Count 4.43 10^6/uL (4.70-6.10); Red Cell Distribution Width 12.5 % (11.0-15.0); White Blood Count 5.9 10^3/uL (4.0-11.0)
[2024-03-10 11:41] LABS: Prostate Specific Antigen Scrn 1.32 ng/mL (<=4.00)
[2024-03-10 11:46] LABS: Anion Gap 11.3; BUN Creatinine Ratio 17.6; Calcium 10.4 mg/dL (8.5-10.1); Carbon Dioxide 28.7 mmol/L (21.0-32.0); Chloride 107 mmol/L (98-107); Estimated GFR (African America >60 (>=60 mL/min/1.73m^2); Estimated GFR (Non-African Ame >60 (>=60 mL/min/1.73m^2); Glucose 100 mg/dL (74-106); Sodium 143 mmol/L (136-145)
[2024-03-10 11:47] LABS: Alanine Aminotransferase 32 U/L (16-63); Albumin Globulin Ratio 1.1; Albumin Level 3.5 g/dL (3.4-5.0); Alkaline Phosphatase 58 U/L (46-116); Aspartate Amino Transferase 16 U/L (15-37); Bilirubin Total 0.8 mg/dL (0.2-1.0); Chol HDL Ratio 3.8; Cholesterol 199 mg/dL (<=200); Globulin 3.3 g/dL; HDL Cholesterol 53 mg/dL (40-60); Total Protein 6.8 g/dL (6.4-8.2); Triglycerides 100 mg/dL (<=150)
[2024-03-10 11:48] LABS: Thyroid Stimulating Hormone 0.915 uIU/mL (0.358-3.740)
== END 2024-03-10 10:08 | disposition home or self-care (01) ==
LOC: LAB 10:09
PROVIDERS: PCP Internal Medicine; Visit Provider Internal Medicine
DX: E78.00 Pure hypercholesterolemia, unspecified (principal); I10 Essential (primary) hypertension; D64.9 Anemia, unspecified; R53.83 Other fatigue; I48.0 Paroxysmal atrial fibrillation; Z12.5 Encounter for screening for malignant neoplasm of prostate
CPT/HCPCS: 36415; 80053; 80061; 84443; 85025; G0103

== ENCOUNTER 2024-03-21 10:28 | Outpatient (OUT) | payer MEDICARE, OTHER, SELFPAY ==
--- NOTE | 2024-03-21 | US_ITS ---
The [address] [address] Patient Name: BANG SHARMA MRN: [id number] date: 1950 Sex: M Assigned Patient Location: US Current Patient Location: Accession/Order Number: [id number] Exam Date: 03/21/2024 10:40 Report Date: 03/22/2024 05:36 At the request of: NELI LO Procedure: US abdomen limited EXAMINATION: US abdomen limited HISTORY: ABDOMINAL PAIN ; left side abdominal pain while lying down COMPARISON: No relevant comparison available. TECHNIQUE: Transabdominal evaluation of the right upper quadrant. FINDINGS: SPLEEN: Homogeneous echotexture. Minimally prominent, 11.5 x 12.4 x 5.7 cm. LEFT KIDNEY: Mildly dilated renal pelvis, 1.5 cm. US/US abdomen limited IMPRESSION: 1. Minimal prominent spleen. Otherwise unremarkable. 2. Minimal left hydronephrosis versus developmental extrarenal pelvis. Electronically authenticated by: TIFFANY GUPTA Date: 03/22/2024 05:36
--- OUTSIDE RECORDS SUMMARY | 2024-03-21 10:46 | XMS_ITS | CCD ---
Author Organization [facility] CliniSyct Care Team Providers Care Vp Ad Products And Planning Name Role Phone PHYSICIAN, DEFAULT Unavailable Unavailable [...] PINEDA Attending Unavailable HARESH PINEDA Referring Unavailable AVLIN CONTRERAS Primary Care Unavailable HARESH PINEDA Referring Unavailable HARESH PINEDA Attending Unavailable ALVIN CONTRERAS Primary Care Unavailable Alvin Contreras Unavailable Alvin Contreras MD Primary Care Provider Nhan PhD, Bhavik Unavailable JR. LENIN, NIKKI Smith Attending Unavaila AMANDA Anders Attending Unavailable REINA SCHNEIDER Referring Unavailable AMANDA BETTENCOURT Attending Unavailable TEE NAGY Referring Unavailable ALPESH JENKINS Referring Unavailable ALPESH JENKINS Referring Unavailable ALPESH JENKINS Admitting Unavailable ALPESH JENKINS Attending Unavailable DREA LINO Attending Unavailable DREA LINO Attending Unavailable ALPESH JENKINS Referring Unavailable Allergies Allergy Classification Reported Allergen(s) Allergy Type Date of Onset Reaction(s) Facility (2 sources) meperidine Drug Allergy 4 The [facility] Repository (6 sources) Penicillins; Translations: [PENICILLINS] Drug allergy (disorder) 2 AOF, Unknown Reaction [facility] (4 sources) Penicillins Drug Allergy 4 Hives [facility] (6 sources) Insects Extract; Translations: [INSECTS EXTRACT] Drug Allergy 1 Other: See Comments [facility] (3 sources) atorvastatin Drug Allergy 4 Unknown, Unknown Reaction [facility] (2 sources) Penicillin Drug Allergy Unknown [facility] Other (2 sources) Substance with penicillin structure and antibacterial mechanism of action (substance) Drug allergy Unknown [facility] Other (4 sources) Meperidine; Translations: [MEPERIDINE] Drug Allergy 8 [facility] (3 sources) Penicillins Drug Allergy 4 Hives, Rash, Other [facility] (1 source) carvedilol; Translations: [CARVEDILOL] Drug Allergy 3 [facility] (1 source) Metoprolol; Translations: [METOPROLOL] Drug Allergy 3 [facility] (1 source) nebivolol; Translations: [NEBIVOLOL] Drug Allergy 3 [facility] Medications Current Medications Medication Drug Class(es) [...] Refill. Active Oral daily *Pick strength-form from [employer] for eRX* Nov, Active Start: 08-02-2018 take [address] 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] Onset: 02-12-2022 Episodic [...] Value Interpretation Reference Range Facility Office Visiton 03-15-2024 Follow-up visit [id number] Lucinda Sharma 1950 M Date Provider Department Center 03/15/2024 DREA STOVALL CARD [facility] Family History Problem Relation Age of Onset Coronary artery disease Other Hypertension Other Family Status - Relation Status Age at Other Level of Service:87769 SD OFFICE/OUTPATIENT ESTABLISHED LOW MDM 20 MIN Reason for Visit and Comments: Follow-up [497836] - 3 month follow up Atrial Fibrillation [80] Normal [facility] EMG 2 Extremitieson 02-24-20 EMG/NCS BLE Severe sensory-motor polyneuropathy. [facility] NVC 9-10 Nerveson 02-24-2024 EMG/NCS BLE [facility]23 [facility] Electrophysiology Consult Note Reason for visit: Afib [...] This was followed up with [facility] with [facility] protocol which was negative for inducible arrhythmias [...] CVL report IMPRESSION: Successful direct-current cardioversion with methodist of sinus rhythm from atrial fibrillation with no immediate complication. 03/22/12: EPS EP study by Dr. Carmen Flores on 03/22/2012 for evaluation of wide-complex tachycardia in the setting of normal ejection fraction revealed normal HV interval but no evidence of any AH jump suggestive of dual AV node physiology and no tachycardia was induced. This was followed up with [facility] with [facility] protocol which was negative for inducible arrhythmias [...] CARDIAC CATHETERIZATION (more content not included)... Normal [facility] [place] 12-09-2023 HERMINIA RN educated pt on d/ c instructions. RN encouraged pt to voice any questions or concerns. Pt verbalizes no questions or concerns at this time. Pt walked off of unit with all of belongings. Normal [facility] 36on 12-02-2023 36 Regarding echo resul t from 11/24/2023: NILA Avitia MA; Alpesh Jenkins MD Severe biatrial enlargement LV systolic function low end of normal 50-55% RV normal size and function, normal rt sided pressures- no fluid overload LM on patient's VM. Normal [facility] Basophils Auto (Bld) [#/Vol] on 12-01-2023 Basophils (Bld) [#/Vol] 0.0 10 3/uL 0.0-0.1 [facility] Basophils/100 WBC Auto (Bld) on 12-01-2023 Basophils/100 WBC (Bld) 0.5 % 0.2-2.0 [facility] Eosinophils/100 WBC Auto (Bl d)on 12-01-2023 Eosinophils/100 WBC (Bld) 1.1 % 0.9-7.0 [facility] Erythrocyte distribution wid th Auto (RBC) [Ratio]on 12-01-2023 Erythrocyte distribution width (RBC) [Ratio] 12.8 % 11.0-15.0 [facility] Hematocrit Auto (Bld) [Volum e fraction]on 12-01-2023 Hematocrit (Bld) [Volume fraction] 40.8 % Low 42.0-54.0 [facility] Hemoglobin [Mass/volume] in Bloodon 12-01-2023 Hemoglobin (Bld) [Mass/Vol] 13.6 g/dL Low 14.0-18.0 [facility] Laboratory - Hematology and Cell countson 12-01-2023 Immature granulocytes/100 WBC (Bld) 0.3 % 0.0-0.5 [facility] Leukocytes [#/volume] correc evelyne for nucleated erythrocytes in Blood by Automated counon 12-01-2023 WBC corrected for nucl RBC Auto (Bld) [#/Vol] 6.4 10 3/uL 4.0-11.0 [facility] Lymphocytes Auto (Bld) [#/Vo l]on 12-01-2023 Lymphocytes (Bld) [#/Vol] 1.3 10 3/uL 1.2-3.8 [facility] Lymphocytes/100 WBC Auto (Bl d)on 12-01-2023 Lymphocytes/100 WBC (Bld) 20.7 % 20.5-60.0 [facility] MCH Auto (RBC) [Entitic mass ]on 12-01-2023 MCH (RBC) [Entitic mass] 31.7 pg 25.9-34.0 [facility] MCHC Auto (RBC) [Mass/Vol]on 12-01-2023 MCHC (RBC) [Mass/Vol] 33.3 g/dL 29.9-35.2 [facility] MCV Auto (RBC) [Entitic vol] on 12-01-2023 MCV (RBC) [Entitic vol] 95.1 fL High 80.0-94.0 [facility] Monocytes Auto (Bld) [#/Vol] on 12-01-2023 Monocytes (Bld) [#/Vol] 0.8 10 3/uL 0.3-0.8 [facility] Monocytes/100 WBC Auto (Bld) on 12-01-2023 Monocytes/100 WBC (Bld) 11.8 % 1.7-12.0 [facility] Neutrophils Auto (Bld) [#/Vo l]on 12-01-2023 Neutrophils (Bld) [#/Vol] 4.2 10 3/uL 1.4-6.5 [facility] Neutrophils/100 WBC Auto (Bl d)on 12-01-2023 Neutrophils/100 WBC (Bld) 65.6 % 43.0-75.0 [facility] No Panel Informationon 11-30 Eosinophils # (Auto) 0.1 10 3/uL 0.0-0.7 [facility] Immature Granulocyte # (Auto) 0.02 10 3/uL 0.00-0.03 [facility] Platelet mean volume Auto (B ld) [Entitic vol]on 12-01-2023 Platelet mean volume (Bld) [Entitic vol] 8.9 fL Low 9.5-13.5 [facility] Platelets Auto (Bld) [#/Vol] on 12-01-2023 Platelets (Bld) [#/Vol] 265 10 3/uL 150-450 [facility] RBC Auto (Bld) [#/Vol]on RBC (Bld) [#/Vol] 4.29 10 6/uL Low 4.70-6.10 [facility] Office Visiton 11-10-2023 Follow-up visit [id number] Lucinda Sharma 1950 Date Provider Department Center 11/10/2023 DREA STOVALL ARAM Panda Family History Problem Relation Age of Onset Coronary artery disease Other Hypertension Other Family Status - Relation Status Age at Other Level of Service:55742 SD OFFICE/OUTPATIENT ESTABLISHED MOD MDM 30 MIN Reason for Visit and Comments: Atrial Fibrillation [80] Normal [facility] Orders Onlyon 05-29-2023 Orders Only [id number] Lucinda Sharma 1950 Date Provider Department Center 05/29/2023 J CARLOS VICTOR ARAM [facility] Family History Problem Relation Age of Onset Coronary artery disease Other Hypertension Other Family Status - Relation Status Age at Other Normal [facility] CNOVon 01-13-2023 CNOV Office Visit (ORFWHP ) BANG SHARMA ([id number]) 1950 M Date Time Provider Department 01/13/23 2:30 PM HARESH PINEDA ORFWHP During your visit today, we recorded the following information about you: Haresh Pineda MD 01/13/2023 4:19 PM Signed Orthopaedic Surgery Follow-Up Clinic Note Surgery/Date: 08/27/2017 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] applicable): follow up right lower leg (accession [id number]), left ankle pain and popping sensation (accession [id number]) TECHNIQUE: XR TIBIA FIBULA 2V AP/LAT RT, [...] SIGNIFICANT CHANGE. NO RADIOGRAPHIC SIGNS OF RECURRENCE. Sales Representative Business Courses: BARBARA Transcribe Date/Time: Jan 13 2023 4:43P Dictated by : JULISA WEAVER MD This examination was interpreted and the report reviewed and electronically signed by: JULISA WEAVER MD on Jan 13 2023 4:53PM EST [id number] Normal [facility] XR CHEST 2V FRONTAL/LATon XR CHEST [...] tissues: Spine degenerative changes IMPRESSION: See result Sales Representative Business Courses: BARBARA Transcribe Date/Time: Jan 15 2023 3:13P Dictated by : RIKKI PEDERSEN MD This examination was interpreted and the report reviewed and electronically signed by: RIKKI PEDERSEN MD on Jan 15 2023 3:14PM EST [id number] Normal [facility] XR TIBIA FIBULA 2V AP/LAT RT [...] applicable): follow up right lower leg (accession [id number]), left ankle pain and popping sensation (accession [id number]) TECHNIQUE: XR TIBIA FIBULA 2V AP/LAT RT, [...] SIGNIFICANT CHANGE. NO RADIOGRAPHIC SIGNS OF RECURRENCE. Sales Representative Business Courses: BARBARA Transcribe Date/Time: Jan 13 2023 4:43P Dictated by : JULISA WEAVER MD This examination was interpreted and the report reviewed and electronically signed by: JULISA WEAVER MD on Jan 13 2023 4:53PM EST [id number] Normal [facility] FLECAINEon 06-24-2022 FLECAINIDE 0.39 ug/ml Normal 0.20 - 1.00 [facility] Comment on above: Result Comment: Flec ainide reported as flecainide acetate. The reference range also is defined as flecaininde acetate. This test was developed and its performance characteristics determined by [facility]. It has not been cleared or approved by the Food and Drug Administration. Performed By: #### T SH, BMP, LIPID, ALT #### [facility] [address] [place] [address] Dr. Fidel Paige CBC AUTO DIFFon 06-09-2022 BASO # 0.0 103/ul Normal 0.0-0.1 [facility] Comment on above: Performed By: #### C BC #### [facility] [address] [place] [address] Dr. Fidel Paige Basophils/100 WBC (Bld) 0.6 % Normal 0.2-2.0 [facility] Comment on above: Performed By: #### C BC #### [facility] [address] [place] [address] Dr. Fidel Paige EO # 0.1 103/ul Normal 0.0-0.7 [facility] Comment on above: Performed By: #### C BC #### [facility] [address] [place] [address] Dr. Fidel Paige Eosinophils/100 WBC (Bld) 2.8 % Normal 0.9-7.0 [facility] Comment on above: Performed By: #### C BC #### [facility] [address] [place] [address] Dr. Fidel Paige Erythrocyte distribution width (RBC) [Ratio] 12.8 % Normal 11.0-15.0 [facility] Comment on above: Performed By: #### C BC #### [facility] [address] [place] [address] Dr. Fidel Paige Hematocrit (Bld) [Volume fraction] 41.9 % Critically low 42.0-54.0 [facility] Comment on above: Performed By: #### C BC #### [facility] [address] [place] [address] Dr. Fidel Paige Hemoglobin (Bld) [Mass/Vol] 14.1 g/dL Normal 14.0-18.0 [facility] Comment on above: Performed By: #### C BC #### [facility] [address] [place] [address] Dr. Fidel Paige IG # 0.01 10e3/ul Normal 0.00-0.03 [facility] Comment on above: Performed By: #### C BC #### [facility] [address] [place] [address] Dr. Fidel Paige IG % 0.2 % Normal 0.0-0.5 [facility] Comment on above: Performed By: #### C BC #### [facility] [address] [place] [address] Dr. Fidel Paige LYMPH # 1.4 103/ul Normal 1.2-3.8 [facility] Comment on above: Performed By: #### C BC #### [facility] [address] [place] [address] Dr. Fidel Paige Lymphocytes/100 WBC (Bld) 29.2 % Normal 20.5-60.0 [facility] Comment on above: Performed By: #### C BC #### [facility] [address] [place] [address] Dr. Fidel Paige MANUAL DIFF REQ NO Normal [facility] Comment on above: Performed By: #### C BC #### [facility] [address] [place] [address] Dr. Fidel Paige MCH (RBC) [Entitic mass] 31.3 pg Normal 25.9-34.0 [facility] Comment on above: Performed By: #### C BC #### [facility] [address] [place] [address] Dr. Fidel Paige MCHC (RBC) [Mass/Vol] 33.7 g/dL Normal 29.9-35.2 [facility] Comment on above: Performed By: #### C BC #### [facility] [address] [address] [address] Fidel Paige MCV (RBC) [Entitic vol] 92.9 fL Normal 80.0-94.0 [facility] Comment on above: Performed By: #### C BC #### [facility] [address] [address] [address] Fidel Paige MONO # 0.7 103/ul Normal 0.3-0.8 [facility] Comment on above: Performed By: #### C BC #### [facility] [address] [address] [address] Fidel Paige Monocytes/100 WBC (Bld) 13.4 % Critically high 1.7-12.0 [facility] Comment on above: Performed By: #### C BC #### [facility] [address] [place] [address] Dr. Fidel Paige NEUT # 2.7 103/ul Normal 1.4-6.5 [facility] Comment on above: Performed By: #### C BC #### [facility] [address] [place] [address] Dr. Fidel Paige Neutrophils/100 WBC (Bld) 53.8 % Normal 43.0-75.0 [facility] Comment on above: Performed By: #### C BC #### [facility] [address] [address] [address] Fidel Paige Platelet mean volume (Bld) [Entitic vol] 8.7 fL Critically low 9.5-13.5 [facility] Comment on above: Performed By: #### C BC #### [facility] [address] [address] [address] Fidel Paige PLT 278 103/ul Normal 150-450 [facility] Comment on above: Performed By: #### C BC #### [facility] [address] [place] [address] Dr. Fidel Paige RBC 4.51 106/ul Critically low 4.70-6.10 [facility] Comment on above: Performed By: #### C BC #### [facility] [address] [place] [address] Dr. Fidel Paige WBC 4.9 103/ul Normal 4.0-11.0 [facility] Comment on above: Performed By: #### C BC #### [facility] [address] [place] [address] Dr. Fidel Paige MAGNESIUMon 06-09-2022 Magnesium [Mass/Vol] 2.0 mg/dL Normal 1.8-2.4 [facility] Comment on above: Performed By: #### T SH, MG, BMP #### [facility] [address] [place] [address] Dr. Fidel Paige PROF CHEM 8 (BAS METB)on Anion gap [Moles/Vol] 8.2 mmol/L Normal [facility] Comment on above: Performed By: #### T SH MG, BMP #### [facility] [address] [place] [address] Dr. Fidel Paige Calcium [Mass/Vol] 10.2 mg/dL Critically high 8.5-10.1 [facility] Comment on above: Performed By: #### T BEATRIS MG, BMP #### [facility] [address] [place] [address] Dr. Fidel Paige Chloride [Moles/Vol] 105 mmol/L Normal 98-107 [facility] Comment on above: Performed By: #### T SH, MG, BMP #### [facility] [address] [place] [address] Dr. Fidel Paige CO2 [Moles/Vol] 29.6 mmol/L Normal 21.0-32.0 [facility] Comment on above: Performed By: #### T SH MG, BMP #### [facility] [address] [place] [address] Dr. Fidel Paige Creatinine [Mass/Vol] 0.81 mg/dL Normal 0.70-1.30 [facility] Comment on above: Performed By: #### T SH, MG, BMP #### [facility] [address] [place] [address] Dr. Fidel Paige EGFR-AF SINGAPOREAN >60 Normal >=60 [facility] Comment on above: Performed By: #### T SH MG, BMP #### [facility] [address] [place] [address] Dr. Fidel Paige EGFR-NON AF SINGAPOREAN >60 Normal >=60 [facility] Comment on above: Performed By: #### T SH, MG, BMP #### [facility] [address] [place] [address] Dr. Fidel Paige Glucose [Mass/Vol] 100 mg/dL Normal 74-106 [facility] Comment on above: Performed By: #### T BEATRIS MG, BMP #### [facility] [address] [place] [address] Dr. Fidel Paige Potassium [Moles/Vol] 3.8 mmol/L Normal 3.5-5.1 [facility] Comment on above: Performed By: #### T BEATRIS MG, BMP #### [facility] [address] [place] [address] Dr. Fidel Paige Sodium [Moles/Vol] 139 mmol/L Normal 136-145 [facility] Comment on above: Performed By: #### T BEATRIS MG, BMP #### [facility] [address] [place] [address] Dr. Fidel Paige Urea nitrogen [Mass/Vol] 12.0 mg/dL Normal 7.0-18.0 [facility] Comment on above: Performed By: #### T BEATRIS MG, BMP #### [facility] [address] [place] [address] Dr. Fidel Paige Urea nitrogen/Creatinin e [Mass ratio] 14.8 mg/mg Normal [facility] Comment on above: Performed By: #### T SH MG, BMP #### [facility] [address] [place] [address] Dr. Fidel Paige TSHon 06-09-2022 TSH 0.891 uIU/mL Normal 0.358-3.740 [facility] Comment on above: Performed By: #### T SH, MG, BMP #### [facility] [address] [place] [address] Dr. Fidel Paige CBC AUTO DIFFon 02-07-2022 BASO # 0.0 103/ul Normal 0.0-0.1 [facility] Comment on above: Performed By: #### T SH, BMP, LIPID, ALT #### [facility] [address] [place] [address] Dr. Fidel Paige Basophils/100 WBC (Bld) 0.3 % Normal 0.2-2.0 [facility] Comment on above: Performed By: #### T SH, BMP, LIPID, ALT #### [facility] [address] [place] [address] Dr. Fidel Paige EO # 0.1 103/ul Normal 0.0-0.7 [facility] Comment on above: Performed By: #### T SH, BMP, LIPID, ALT #### [facility] [address] [place] [address] Dr. Fidel Paige Eosinophils/100 WBC (Bld) 2.1 % Normal 0.9-7.0 [facility] Comment on above: Performed By: #### T SH, BMP, LIPID, ALT #### [facility] [address] [place] [address] Dr. Fidel Paige Erythrocyte distribution width (RBC) [Ratio] 13.1 % Normal 11.0-15.0 [facility] Comment on above: Performed By: #### T SH, BMP, LIPID, ALT #### [facility] [address] [place] [address] Dr. Fidel Paige Hematocrit (Bld) [Volume fraction] 45.2 % Normal 42.0-54.0 [facility] Comment on above: Performed By: #### T SH, BMP, LIPID, ALT #### [facility] [address] [place] [address] Dr. Fidel Paige Hemoglobin (Bld) [Mass/Vol] 14.8 g/dL Normal 14.0-18.0 [facility] Comment on above: Performed By: #### T SH, BMP, LIPID, ALT #### [facility] [address] [place] [address] Dr. Fidel Paige IG # 0.02 10e3/ul Normal 0.00-0.03 [facility] Comment on above: Performed By: #### T SH, BMP, LIPID, ALT #### [facility] [address] [place] [address] Dr. Fidel Paige IG % 0.3 % Normal 0.0-0.5 [facility] Comment on above: Performed By: #### T SH, BMP, LIPID, ALT #### [facility] [address] [place] [address] Dr. Fidel Paige LYMPH # 1.4 103/ul Normal 1.2-3.8 [facility] Comment on above: Performed By: #### T SH, BMP, LIPID, ALT #### [facility] [address] [place] [address] Dr. Fidel Paige Lymphocytes/100 WBC (Bld) 23.2 % Normal 20.5-60.0 [facility] Comment on above: Performed By: #### T SH, BMP, LIPID, ALT #### [facility] [address] [place] [address] Dr. Fidel Paige MANUAL DIFF REQ NO Normal [facility] Comment on above: Performed By: #### T SH, BMP, LIPID, ALT #### [facility] [address] [place] [address] Dr. Fidel Paige MCH (RBC) [Entitic mass] 31.6 pg Normal 25.9-34.0 [facility] Comment on above: Performed By: #### T SH, BMP, LIPID, ALT #### [facility] [address] [place] [address] Dr. Fidel Paige MCHC (RBC) [Mass/Vol] 32.7 g/dL Normal 29.9-35.2 [facility] Comment on above: Performed By: #### T SH, BMP, LIPID, ALT #### [facility] [address] [place] [address] Dr. Fidel Paige MCV (RBC) [Entitic vol] 96.6 fL Critically high 80.0-94.0 [facility] Comment on above: Performed By: #### T SH, BMP, LIPID, ALT #### [facility] [address] [place] [address] Dr. Fidel Paige MONO # 0.7 103/ul Normal 0.3-0.8 [facility] Comment on above: Performed By: #### T SH, BMP, LIPID, ALT #### [facility] [address] [place] [address] Dr. Fidel Paige Monocytes/100 WBC (Bld) 11.7 % Normal 1.7-12.0 [facility] Comment on above: Performed By: #### T SH, BMP, LIPID, ALT #### [facility] [address] [place] [address] Dr. Fidel Paige NEUT # 3.6 103/ul Normal 1.4-6.5 [facility] Comment on above: Performed By: #### T SH, BMP, LIPID, ALT #### [facility] [address] [place] [address] Dr. Fidel Paige Neutrophils/100 WBC (Bld) 62.4 % Normal 43.0-75.0 [facility] Comment on above: Performed By: #### T SH, BMP, LIPID, ALT #### [facility] [address] [place] [address] Dr. iFdel Paige Platelet mean volume (Bld) [Entitic vol] 8.8 fL Critically low 9.5-13.5 [facility] Comment on above: Performed By: #### T SH, BMP, LIPID, ALT #### [facility] [address] [place] [address] Dr. Fidel Paige PLT 283 103/ul Normal 150-450 [facility] Comment on above: Performed By: #### T SH, BMP, LIPID, ALT #### [facility] [address] [place] [address] Dr. Fidel Paige RBC 4.68 106/ul Critically low 4.70-6.10 [facility] Comment on above: Performed By: #### T SH, BMP, LIPID, ALT #### [facility] [address] [address] [address] Fidel Paige WBC 5.8 103/ul Normal 4.0-11.0 [facility] Comment on above: Performed By: #### T SH, BMP, LIPID, ALT #### [facility] [address] [address] [address] Fidel Paige LIPID PROFILEon 02-07-2022 CHOL-HDL RATIO NORM SEE BELOW Normal [facility] Comment on above: Result Comment: 3.3 - 4.4 LOW RISK 4.4 - 7.1 AVERAGE RISK 7.1 - 11.0 MODERATE RISK >11.0 HIGH RISK Performed By: #### T SH, BMP, LIPID, ALT #### [facility] [address] [address] [address] Fidel Paige Cholesterol [Mass/Vol] 191 mg/dL Normal <=200 [facility] Comment on above: Performed By: #### T SH, BMP, LIPID, ALT #### [facility] [address] [address] [address] Fidel Paige Cholesterol in HDL [Mass/Vol] 42 mg/dL Normal 40-60 [facility] Comment on above: Performed By: #### T SH, BMP, LIPID, ALT #### [facility] [address] [address] [address] Fidel Paige Cholesterol in LDL [Mass/Vol] 118.0 mg/dL Normal [facility] Comment on above: Performed By: #### T SH, BMP, LIPID, ALT #### [facility] [address] [address] [address] Fidel Paige Cholesterol.total/ Cholesterol in HDL [Mass ratio] 4.5 {ratio} Normal [facility] Comment on above: Performed By: #### T SH, BMP, LIPID, ALT #### [facility] [address] [place] [address] Dr. Fidel Paige HDL NORMAL > or = 60 mg/dl - LO W CARDIOVASCULAR RISK <40 mg/dl - HIGH CARDIOVASCULAR RISK Normal [facility] Comment on above: Performed By: #### T SH, BMP, LIPID, ALT #### [facility] [address] [address] [address] Fidel Paige LDL CALC NORMAL SEE BELOW Normal [facility] Comment on above: Result Comment: <100 mg/dl OPTIMAL 100 - 129 mg/dl NEAR OR ABOVE OPTIMAL 130 - 159 mg/dl BORDERLINE HIGH 160 - 189 mg/dl HIGH >190 mg/dl VERY HIGH Performed By: #### T SH, BMP, LIPID, ALT #### [facility] [address] [address] [address] Fidel Paige Triglyceride [Mass/Vol] 155 mg/dL Critically high <=150 [facility] Comment on above: Performed By: #### T SH, BMP, LIPID, ALT #### [facility] [address] [address] [address] Fidel Paige VLDL CALC 31.0 mg/dL Normal [facility] Comment on above: Performed By: #### T SH, BMP, LIPID, ALT #### [facility] [address] [address] [address] Fidel Paige PROF CHEM 8 (BAS METB)on Anion gap [Moles/Vol] 11.0 mmol/L Normal [facility] Comment on above: Performed By: #### T SH, BMP, LIPID, ALT #### [facility] [address] [address] [address] Fidel Paige Calcium [Mass/Vol] 10.1 mg/dL Normal 8.5-10.1 [facility] Comment on above: Performed By: #### T SH, BMP, LIPID, ALT #### [facility] [address] [place] [address] Dr. Fidel Paige Chloride [Moles/Vol] 105 mmol/L Normal 98-107 [facility] Comment on above: Performed By: #### T SH, BMP, LIPID, ALT #### [facility] [address] [address] [address] Fidel Paige CO2 [Moles/Vol] 29.0 mmol/L Normal 21.0-32.0 [facility] Comment on above: Performed By: #### T SH, BMP, LIPID, ALT #### [facility] [address] [address] [address] Fidel Paige Creatinine [Mass/Vol] 0.85 mg/dL Normal 0.70-1.30 [facility] Comment on above: Performed By: #### T SH, BMP, LIPID, ALT #### [facility] [address] [address] [address] Fidel Paige EGFR-AF SINGAPOREAN >60 Normal >=60 [facility] Comment on above: Performed By: #### T SH, BMP, LIPID, ALT #### [facility] [address] [address] [address] Fidel Paige EGFR-NON AF SINGAPOREAN >60 Normal >=60 [facility] Comment on above: Performed By: #### T SH, BMP, LIPID, ALT #### [facility] [address] [address] [address] Fidel Paige Glucose [Mass/Vol] 101 mg/dL Normal 74-106 [facility] Comment on above: Performed By: #### T SH, BMP, LIPID, ALT #### [facility] [address] [address] [address] Fidel Paige Potassium [Moles/Vol] 4.0 mmol/L Normal 3.5-5.1 [facility] Comment on above: Performed By: #### T SH, BMP, LIPID, ALT #### [facility] [address] [address] [address] Fidel Paige Sodium [Moles/Vol] 141 mmol/L Normal 136-145 [facility] Comment on above: Performed By: #### T SH, BMP, LIPID, ALT #### [facility] [address] [address] [address] Fidel Paige Urea nitrogen [Mass/Vol] 13.0 mg/dL Normal 7.0-18.0 [facility] Comment on above: Performed By: #### T SH, BMP, LIPID, ALT #### [facility] [address] [address] [address] Fidel Paige Urea nitrogen/Creatinin e [Mass ratio] 15.3 mg/mg Normal [facility] Comment on above: Performed By: #### T SH, BMP, LIPID, ALT #### [facility] [address] [address] [address] Fidel Paige SGPTon 02-07-2022 ALT [Catalytic activity/Vol] 26 U/L Normal 16-63 [facility] Comment on above: Performed By: #### T SH, BMP, LIPID, ALT #### [facility] [id number] Fidel Paige TSHon 02-07-2022 TSH 0.856 uIU/mL Normal 0.358-3.740 [facility] Comment on above: Performed By: #### T SH, BMP, LIPID, ALT #### [facility] [address] [address] [address] Fidel Paige XR CHEST 2V FRONTAL/LATon [facility] US VENOUS DOPPLER L Cristian US VENOUS [...] by: TIFFANY GUPTA Date: 2021-10-10 12:51 Normal [facility] Vital Signs Date Time Vital Sign Value Performing Clinician Facility 02-22-2024 10:41-0500 Body height 189.2 cm Amanda Bettencourt DO Work Phone: [facility] 02-22-2024 10:41-0500 Body mass index (BMI) [Ratio] 32.18 kg/m2 Amanda Rut DO Work Phone: [facility] 02-22-2024 10:41-0500 Body weight 115.21 kg Amandanilson Bettencourt DO Work Phone: [facility] 02-22-2024 10:41-0500 Diastolic blood pressure 86 mm[Hg] Amanda Rut DO Work Phone: [facility] 02-22-2024 10:41-0500 Heart rate 88 /min Amanda Rut DO Work Phone: [facility] 02-22-2024 10:41-0500 SaO2% (BldA) [Mass fraction] 99 % Amanda Rut DO Work Phone: [facility] 02-22-2024 10:41-0500 Systolic blood pressure 142 mm[Hg] Amanda Rut DO Work Phone: [facility] 12-03-2023 11:04-0400 Body height 185.42 cm [facility] 12-03-2023 11:04-0400 Body mass index (BMI) [Ratio] 33.8 kg/m2 [facility] 12-03-2023 11:04-0400 Body weight 116.28 kg [facility] 12-03-2023 11:04-0400 Diastolic blood pressure 86 mm[Hg] [facility] 12-03-2023 11:04-0400 Heart rate 71 /min [facility] 12-03-2023 11:04-0400 Respiratory rate 12 /min [facility] 12-03-2023 11:04-0400 Systolic blood pressure 130 mm[Hg] [facility] Encounters Encounter Date Encounter Type Care Provider Facility Start: 03-15-2024 End: [facility]: 03-07-[facility] Start: 02-24-2024 End: 02-24-2024 ambulatory AMANDA RUT Not Available Start: 02-24-2024 End: 02-24-2024 Patient encounter procedure Amanda Rut DO Work Phone: [facility] Comment on above: Idiopathic periphera l neuropathy Start: 02-22-2024 End: 02-22-2024 Bambo flowsheet Amanda Urt DO Work Phone: [facility] Start: 02-22-2024 End: 02-22-2024 Bamboo flowsheet Amanda Bettencourt DO Work Phone: [facility] Start: 02-22-2024 End: 02-22-2024 ambulatory AMANDA RUT Not Available Start: 02-22-2024 End: 02-22-2024 Office outpatient new 45 minutes Amanda Bettencourt DO Work Phone: [facility] Comment on above: Idiopathic periphera l neuropathy (Primary Dx); 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; Weakness; Numbness and tingling Start: 02-11-2024 ambulatory [facility] Start: 02-02-2024 ambulatory [facility] Start: 01-21-2024 ambulatory TEE [facility] Start: 12-09-2023 End: 12-09-2023 ambulatory [facility] Start: 12-03-2023 End: 12-03-2023 ambulatory [facility] Work Phone: Start: 12-03-2023 End: 12-03-2023 Patient encounter procedure [facility] Work Phone: Start: 12-01-2023 Non-patient / Non-visit [facility] Work Phone: Start: 11-10-2023 End: 11-10-2023 ambulatory [facility] Start: 06-04-2023 End: 06-04-2023 ambulatory Alvin Contreras Other [facility] Other Start: 06-04-2023 Encounter by sergio Contreras [facility] Start: 05-29-2023 End: 05-29-2023 ambulatory Alvin Contreras Other [facility] Other Start: 05-29-2023 Telephone encounter Alvin Contreras [facility] Start: 03-30-2023 End: 03-30-2023 ambulatory NIKKI MITCHELL Not Available Start: 01-13-2023 End: 01-14-2023 ambulatory HARESH PINEDA Facility:[facility] Start: 01-12-2023 Orders Only Haresh Pineda [...] 11-09-2017 End: 11-10-2017 Patient encounter DEFAULT PHYSICIAN Facility:[facility] Procedures Date Procedure Procedure Detail Performing Clinician Start: 03-15-2024 Follow-up visit Follow-up DREA LINO Start: 02-24-2024 End: 02-24-2024 Needle emg ea extremty w/paraspinl area complete Amanda Bettencourt DO Work Phone: Start: 02-07-[address] JHONATHAN CONTRERAS Comment on above: Performed By: #### T SH, BMP, LIPID, ALT #### [facility] [address] [place] [address] Dr. Fidel Paige Start: 11-05-2021 Radiologic exam ches t 2 views Eric Taylor APRN.DISTANCE EDUCATION COORDINATOR Work Phone: Start: 11-05-2021 Radiologic examinati on tibia & fibula 2 views Eric Taylor APRN.DISTANCE EDUCATION COORDINATOR Work Phone: Start: 06-30-2019 Adult depression scr eening assessment Haresh Pineda MD Work Phone: Plan of Treatment Date Care Activity Detail Author Start: 02-12-2025 Screening for malign ant neoplasm of colon [facility] Start: 04-05-2024 End: 04-05-2024 Patient encounter procedure 04/05/2024 1:45 PM EST Office Visit [facility] [address] [place] [address] Amanda Bettencourt, DO [address] [place] [address] [facility] [address] Start: 02-24-2024 End: 02-24-2024 Patient encounter procedure 02/24/2024 1:00 PM EST Procedure Visit [facility] [address] [address] Amanda Bettencourt, DO [address] [place] [address] [facility] Start: 02-22-2024 End: 02-21-2025 Cobalamin (Vitamin B12) [Mass/volume] in Serum or Plasma Vitamin B12 Lab Routine Idiopathic peripheral neuropathy Expected: 02/22/2024 (Approximate), Expires: 02/21/2025 [facility] Work Phone: Comment on above: Expected: 02/22/2024 (Approximate), Expires: 02/21/2025 Start: 02-22-2024 End: 02-21-2025 EMG 2 Extremities EMG 2 Extremities Neurology Routine Idiopathic peripheral neuropathy Expected: 02/22/2024 (Approximate), Expires: 02/21/2025 [facility] Comment on above: Expected: 02/22/2024 (Approximate), Expires: 02/21/2025 Start: 02-22-2024 End: 02-21-2025 Folate [Mass/volume] in Serum or Plasma Folate Lab Routine Idiopathic peripheral neuropathy Expected: 02/22/2024 (Approximate), Expires: 02/21/2025 [facility] Comment on above: Expected: 02/22/2024 (Approximate), Expires: 02/21/2025 Start: 02-22-2024 End: 02-21-2025 NVC 9-10 Nerves NVC 9-10 Nerves Neurology Routine Idiopathic peripheral neuropathy Expected: 02/22/2024 (Approximate), Expires: 02/21/2025 [facility] Comment on above: Expected: 02/22/2024 (Approximate), Expires: 02/21/2025 Start: 02-22-2024 End: 02-21-2025 Protein electrophoresis, serum Protein electrophoresis, serum Lab Routine Idiopathic peripheral neuropathy Expected: 02/22/2024 (Approximate), Expires: 02/21/2025 [facility] Comment on above: Expected: 02/22/2024 (Approximate), Expires: 02/21/2025 Start: 02-22-2024 End: 02-21-2025 Thyrotropin [Units/volume] in Serum or Plasma TSH Lab Routine Idiopathic peripheral neuropathy Expected: 02/22/2024 (Approximate), Expires: 02/21/2025 [facility] Comment on above: Expected: 02/22/2024 (Approximate), Expires: 02/21/2025 Start: 12-19-2022 Influenza vaccination [facility] Start: 11-05-2022 End: 12-05-2022 Radiologic exam chest 2 views XR CHEST 2V FRONTAL/LAT Radiology Routine Chondrosarcoma (HCC) Expected: 11/05/2022 (Approximate), Expires: 12/05/2022 [facility] Work Phone: Comment on above: Expected: 11/05/2022 (Approximate), Expires: 12/05/2022 Start: 11-05-2022 End: 12-05-2022 XR TIBIA FIBULA 2V AP/LAT RIGHT XR TIBIA FIBULA 2V AP/LAT RIGHT Radiology Routine Chondrosarcoma (HCC) Expected: 11/05/2022 (Approximate), Expires: 12/05/2022 [facility] Work Phone: Comment on above: Expected: 11/05/2022 (Approximate), Expires: 12/05/2022 Start: 10-25-2022 DIABETES SCREEN DIABETES SCREEN [facility] Start: 10-25-2022 Diabetes Screening Diabetes Screenin g [facility] Start: 04-20-2022 ADVANCE DIRECTIVE DISCUSSION ADVANCE DIRECTIVE DISCUSSION [facility] Start: 04-20-2022 DEPRESSION ASSESSMENT DEPRESSION ASS ESSMENT [facility] Start: 12-19-2021 Influenza vaccination INFLUENZA (#1) [facility] Start: 11-18-2021 COVID-19 VACCINE (5 - Pfizer series) COVID-19 VACCINE (5 - Pfizer series) [facility] Start: 04-20-2021 ADVANCE DIRECTIVE DISCUSSION ADVANCE DIRECTIVE DISCUSSION [facility] Start: 06-29-2020 Adult depression screening assessment DEPRESSION SCREENING [facility] Start: 2014 Pneumococcal Vaccine : 65+ (1 - PCV) Pneumococcal Vaccine: 65+ (1 - PCV) [facility] Start: 2014 PNEUMOCOCCAL: 65+ (1 - PCV) PNEUMOCOCCAL: 65+ (1 - PCV) [facility] Start: 09-19-1999 SHINGRIX VACCINE (1 of 2) SHINGRIX VACCINE (1 of 2) [facility] Start: 1994 COLOGUARD (FIT-DNA) COLOGUARD (FIT-D NA) [facility] Start: 1994 Colonoscopy COLONOSCOPY [facility] Start: 1994 COLORECTAL CANCER SCREENING COLORECTAL CANCER SCREENING [facility] Start: [address] COLONOGRAPHY [facility] Start: 1994 FECAL OCCULT BLOOD FECAL OCCULT BLOO D [facility] Start: 1994 SIGMOIDOSCOPY SIGMOIDOSCOPY [facility] Start: 1984 Lipid 1996 panel - Serum or Plasma Lipid Screening [facility] Start: 1984 LIPID SCREEN LIPID SCREEN [facility] Start: 1968 Urine microalbumin profile [facility] Start: 09-19-1967 ANNUAL PCP TEAM TRANSACTION MANAGER LEE ANN DISEASE VISIT ANNUAL PCP TEAM CHRONIC DISEASE VISIT [facility] Start: 09-19-1967 BP CONTROLLED (<130/80) BP CONTROLLE D (<130/80) [facility] Start: 09-19-1967 HEPATITIS C SCREENING HEPATITIS C SC REENING [facility] Start: 1949 Screening for malign ant neoplasm of colon [facility] End: 12-17-2023 Radiologic exam chest 2 views XR CHEST 2V FRONTAL/LAT Radiology Routine Chondrosarcoma (HCC) 1 Occurrences starting 11/17/2022 until 12/17/2023 [facility] Work Phone: Comment on above: 1 Occurrences starti ng 11/17/2022 until 12/17/2023 End: 02-11-2024 XR ANKLE GENERAL 3V AP/LAT/OBL LEFT XR ANKLE GENERAL 3V AP/LAT/OBL LEFT Radiology Routine Chronic pain of left ankle 1 Occurrences starting 01/12/2023 until 02/11/2024 [facility] Work Phone: Comment on above: 1 Occurrences starti ng 01/12/2023 until 02/11/2024 End: 12-17-2023 XR TIBIA FIBULA 2V AP/LAT RIGHT XR TIBIA FIBULA 2V AP/LAT RIGHT Radiology Routine Chondrosarcoma (HCC) 1 Occurrences starting 11/17/2022 until 12/17/2023 [facility] Work Phone: Comment on above: 1 Occurrences starti ng 11/17/2022 until 12/17/2023 XR TIBIA FIBULA 2V AP/LAT RT XR TIBIA FIBULA 2V AP/LAT RT Radiology Routine Chondrosarcoma (HCC) 11/05/2021 2:50 PM EDT [facility] Work Phone: [facility] Immunizations Immunization Date Immunization Notes Care Provider Omar [facility] 02-10-2022 influenza virus vaccine, split virus (incl. purified surface antigen) Alvin Contreras Other [facility] Other 02-10-2022 influenza virus vaccine, unspecified formulation [facility] 05-29-2020 COVID-19 Vaccine Pfi zer - Documentation Purposes Only Alvin Contreras Other [facility] 10-02-2016 diphtheria, tetanus toxoids and acellular pertussis vaccine, unspecified formulation Alvin Contreras Other [facility] 03-23-2016 pneumococcal conjuga te vaccine, 13 valent Alvin Contreras Other [facility] 03-01-2009 pneumococcal polysaccharide vaccine, 23 valent Alvin Contreras Other [facility] 02-25-2006 diphtheria, tetanus toxoids and acellular pertussis vaccine, unspecified formulation Alvin Ball Other [facility] Payers Date Payer Category Payer Medicare MEDICARE MEDICAR E A AND B [id number] 2014-Present [phone] [place] [address] Medicare [id number] 2014 Medicare [id number] 2014 Private Health Insurance [employer] [place] [id number] 2014 Unknown 2014 Unknown [employer] [address] D [id number] 2014-Present [phone] [address] [address] [place] [address] Indemnity [id number] 2014 Unknown [id number] 1959 Medicare [id number] 1959 Unknown [id number] 1949 Unknown [id number] 1949 Unknown [id number] 1949 Unknown [id number] 1949 Unknown [id number] 1949 Unknown [id number] 1949 Unknown [id number] Social History Date Type Detail Facility Start: 07-17-2017 Tobacco smoking stat [facility] Never smoked tobacco [facility] Start: 07-17-2017 End: 02-22-2024 Tobacco use and exposure Smokeless tobacco non-user [facility] Start: 1950 Sex Assigned At Male [facility] Start: 10-26-2021 End: 11-05-2021 Exposure to SARS-CoV-2 (event) Not sure [facility] Start: 05-18-2022 End: 02-22-2024 History of Social function [facility] Start: 05-18-2022 End: 02-22-2024 Area Deprivation Index [facility] National Score (1-10 0), lower number is lower risk 60 [facility] Start: 11-23-2019 Sexual orientation Heterosexual (dirk gibson) [facility] Tobacco smoking stat [facility] Tobacco smoking consumption unknown [facility] Start: 1950 Sex assigned at Not on file [facility] Start: 02-22-2024 Tobacco smoking stat [facility] Ex-smoker [facility] History of tobacco use Current smoker [facility] History of tobacco use Cigarette Smoker [facility] Medical Equipment Procedure Code Equipment Code Equipment Origin al Text Equipment Identifier Dates Graft Enhance Demineralized Cortical Fiber Bone Allograft Dehydrate 2.5ml - [id number] Start: 08-27-2017 Graft Cancellous Chips Bone Void Freeze Dry 30ml (1.7-10mm) - [id number] Start: 08-27-2017 Graft Dbx Bone V oid Allograft Freeze Dried Putty 1ml - [id number] Start: 08-27-2017 Tibial Nail [id number] Start: 08-27-2017 Carbofix Titaniumscrew [id number] S tart: 08-27-2017 Carbofix Titaniu m Screw [id number] Start: 08-27-2017 Carbofix Titaniu m Screw [id number] Start: 08-27-2017 Carbofix Titaniu m Screw [id number] Start: 08-27-2017 Carbofix Titaniu m Screw [id number] Start: 08-27-2017 Clinical Notes 10-10-2021 to 03-15-2024 Geoff Joshua, ARRT - 02/24/2024 1:00 PM ESTNicdianna Bettencourt, DO - 02/22/2024 10:30 AM EST Note Date & Type Note Facility 03-15-2024 Note Cardiovascular Medic [facility] SUBJECTIVE Chief Complaint Patient presents with Follow-up 3 month follow up Atrial Fibrillation Bang Sahrma is a 73 y.o. male here for follow-up. Atrial Fibrillation Presents for follow-up visit. Symptoms include palpitations. Symptoms are negative for bradycardia, chest pain, hypertension, syncope and tachycardia. The symptoms have been improving. Past medical history includes atrial fibrillation. Palpitations The problem has been resolved. Pertinent negatives include no chest pain, fever, irregular heartbeat, malaise/fatigue, near-syncope or syncope. 03/15/2024 Since last seen, he underwent placement of a LOOP recorder. His palpitations have been better. He has some leg swelling. This is stable. HALEY has been the same since last year since having COVID. Denies CP, orthopnea, PND, syncope. 11/10/2023 -He had increased palpitations a couple [...] This was followed up with [facility] with [facility] protocol which was negative for inducible arrhythmias [...] Comment: occasional Allergies Allergen Reactions Penicillins Hives Coreg [Carvedilol] Diarrhea Meperi (more content not included)... [facility] 02-24-2024 History of Present illness Narrative Images from the original note were not included. Reason for Appointment: EMG Patient: Bang Sharma : 1950 EMG Computer: [employer] Referring Physician: Dr. Amanda Bettencourt EMG: BLE baker doughnut: Geoff Joshua RT(R) Office Location: [place] Reason for EMG: c/o numbness/tingling in right foot/ankle. Hx of surgery to right lower leg. No hx of DM. Not on blood thinners. Comments: Procedure was explained to the patient & who expressed understanding. Patient appeared to have tolerated the test well despite some discomfort due to the nature of the test. documented in this encounter [facility] 02-22-2024 History of Present illness Narrative Images from the original note were not included. Chief Complaint Patient presents with Numbness Peripheral Neuropathy Subjective Bang Sharma, 73 y.o., male being seen in Neurology consultation at the request of Dr. Schneider. Dr. Contreras is his PCP. HPI Lower extremity numbness - labs @ [facility]; referral received from Dr Reina Schneider, LEATHA [...] Date Afib (CMS/HCC) Heart disease HTN (hypertension) (CMS/HCC) Past Surgical History: Procedure Laterality Date FEMUR [...] clinic: 3 weeks documented in this encounter [facility] 12-09-2023 Note LOOP IMPLANT PROCEDU RE NOTE DATE OF PROCEDURE: 12/09/23 PERFORMING PHYSICIAN: Dr. Alpesh Jenkins DEATH CLAIM EXAMINER: JERROD INDICATIONS FOR PROCEDURE: 1. SVT/AF surveillance [...] the sternum on the left using the [employer] tool. The loop recorder was then injected [...] the incision. Alpesh Jenkins MD Cardiac Electrophysiology. [facility] 11-10-2023 Note Cardiovascular Medic [facility] SUBJECTIVE Chief Complaint Patient presents with Atrial [...] This was followed up with [facility] with [facility] protocol which was negative for inducible arrhythmias [...] (260 lb) SpO2 (more content not included)... [facility] 11-10-2023 Note Patient here today w ith [...] All other systems reviewed and are negative. [facility] 05-29-2023 Evaluation note Encounter Date Diagnosis Assessment Notes May, Anemia (ICD-10 - D64.9) [facility] Other 09-26-2023 NoteHNO ID: [id number] Author: Keri Lopez RN Service: ? Author Type: Registered Nurse Type: Progress Notes Filed: 01/13/2023 4:19 PM Note Text: I served as a scribe during this office visit encounter. Keri Lopez [facility]09-26-2023 NoteHNO ID: [id number] Author: Ranjith Teixeira RT(R) Service: Radiology Author [...] IV DATA: Not applicable SIGNED BY: Ranjith Teixeira, RT(R) January 13, 2023 2:20 [facility]09-26-2023 NoteHNO ID: [id number] Author: Haresh Pineda MD Service: ? 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 (CPT 25572 - 22) Placement of Prophylactic Carbon Fiber Tibial Nail, Right Tibia (CPT 59693) High Speed [place] and Adjuvant Treatment with 10% H202 (CPT 81246) Neruolysis and Dissection of Deep Peroneal Nerve (CPT 29315) Right Iliac Crest Marrow Aspiration/Wells ( CPT 60455) Diagnosis: Right Tibial Diaphysis Cartilage Lesion with [...] the date of the service which included [id number] patient care, completing clinical documentation, obtaining and/or [...] information added by medical student, resident, nurse, DISTANCE EDUCATION COORDINATOR/PA-C that I have placed my signature directly below I have verified and either instructed them to document in a scribe function or document appropriately in the chart during the patient visit. Haresh Pineda MD media arts professor, CCLCM [facility] Meat Separator Operator, Division of Musculoskeletal Oncology Co-Director of Sarcoma Care, [facility] Pager: [phone] (more content not included)...[facility] [id number] History of Present illness Narrative* Haresh Pineda MD - 11/05/2021 5:19 PM EDT This note was created using [employer]. ISIAH FORRESTER ORT MST FU Advanced: Did this patient have an adverse event since their last encounter?: No * Haresh Pineda MD - 11/05/2021 4:07 PM EDT Orthopaedic Surgery Follow-Up Clinic Note Surgery/Date: 08/27/2017 1. 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 Placement of Prophylactic Carbon Fiber Tibial Nail, Right Tibia (CPT 40385) 3. High Speed Ehsan and Adjuvant Treatment with 10% H202 (CPT 83257) 4. Neruolysis and Dissection of Deep Peroneal Nerve (CPT 31713) 5. 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 Exam: RLE -- largely unchanged compared [...] the date of the service which included [id number] patient care, completing clinical documentation, obtaining and/or reviewing separately obtained history, performing a medically appropriate examination, counseling and educating the patient/family/caregiver, ordering medications, tests, or procedures, independently interpreting results (not separately reported) and communicating results to the patient/family/caregiver. Any information added by medical student, resident, nurse, DISTANCE EDUCATION COORDINATOR/PAJayC that I have placed my signature directly below I have verified and either instructed them to document in a scribe function or document appropriately in the chart during the patient visit. Haresh Pineda MD media arts professor, CCLCM at [facility] Shellfish Meat Separator Operator, Division of Musculoskeletal Oncology Co-Director of Sarcoma Care, [facility] Pager: [phone] November 05, 2021 5:18 PM documented in this encounterAs[facility]07-19-2022 History of Present illness Narrative* Esperanza Sandy, [...] 05, 2021 2:49 PM documented in this encounterAshtabula [facility]06-23-2022 NotePROCEDURE: XR FOREARM LT 2 VIEWS HISTORY: [...] Electronically authenticated by: TIFFANY GUPTA Date: 2021-10-10 12:28[facility] note* 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, site unspecified documented in this encounter [facility] note* 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, site unspecified documented in this encounter [facility] note* 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, site unspecified documented in this encounter [facility] note* Diagnosis Chronic pain of left ankle- Primary documented in this encounter [facility] noteNo [facility] [employer] Other Evaluation note* Diagnosis Onset Date Resolution Status Anemia acute Atrial fibrillation acute Hypercholesterolemia acute Hypertension acute Obesity acute REMY (obstructive sleep apnea) acute [facility] Work Phone: Evaluation note* Diagnosis Idiopathic peripheral neuropathy- Primary Unspecified hereditary and idiopathic peripheral neuropathy 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 Weakness Other malaise and fatigue Numbness and tingling Disturbance of skin sensation [facility] Diagnosis Idiopathic peripheral neuropathy Unspecified [...] insertion 2018 Hospitalization History see surgical hx [facility] Other Reason for referral (narrative)* Diagnostic Procedure Only (Routine) - Pending Review Specialty Diagnoses / Procedures Referred By Tigre kilpatrick Referred To Contact XR IMAGING Diagnoses Chondrosarcoma (HCC) Procedures XR TIBIA FIBULA 2V AP/LAT RIGHT RADIOLOGIC EXAMINATION TIBIA & FIBULA 2 VIEWS Haresh Pineda MD [address] [place] [address] Xr Imaging Referral ID Status Reason Start Date Expiration Date Visits Requested Visits Authorized [id number] Pending Review Auto-Generat ed Referral 11/05/2022 12/05/2022 1 1 [facility] for referral (narrative)* Diagnostic Procedure Only (Routine) - Pending Review Specialty Diagnoses / Procedures Referred By Tigre kilpatrick Referred To Contact XR IMAGING Diagnoses Chondrosarcoma (HCC) Procedures XR TIBIA FIBULA 2V AP/LAT RIGHT RADIOLOGIC EXAMINATION TIBIA & FIBULA 2 VIEWS Haresh Pineda MD [address] [place] [address] Xr Imaging Referral ID Status Reason Start Date Expiration Date Visits Requested Visits Authorized [id number] Pending Review Auto-Generat ed Referral 11/17/2022 12/17/2023 1 1 [facility] Diagnostic Procedure Only (Routine) - Authorized Specialty Diagnoses / Procedures Referred By Tigre t Referred To Contact XR IMAGING Diagnoses Chronic pain of left ankle Procedures XR ANKLE GENERAL 3V AP/LAT/OBL LEFT RADEX ANKLE COMPLETE MINIMUM 3 VIEWS Valeri Quintero PA-C [address] [place] [address] Xr Imaging [place] [address] Referral ID Status Reason Start Date Expiration Date Visits Requested Visits Authorized [id number] Authorized Auto-Generat ed Referral 01/12/2023 02/11/2024 1 1 [facility] Summary Purpose Family History No Family History Records Found Relationship Condition Age at Onset Recorded Date/T kayley father Malignant neoplasm Unknown Unknown mother Hypertension Unknown Diabetes mellitus Unknown Advance Directives No Advanced Directives Records FoundDocuments on File Type Date Recorded 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 Advance Directive(s) Advance Directive(s) 09/02/2018 11:24 AM Advance Directive(s) 08/26/2018 2:02 PM Advance Directive(s) 08/24/2017 2:28 PM Documents on File Type Date Recorded 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 Advance Directive(s) Advance Directive(s) 09/02/2018 11:24 AM Advance Directive(s) 08/26/2018 2:02 PM Advance Directive(s) 08/24/2017 2:28 PM Documents on File Type Date Recorded 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 Advance Directive(s) 08/24/2017 2:28 PM [...] section and content) DATE CREATED AUTHOR 11/10/2017 [facility] DATE CREATED AUTHOR AUTHOR'S ORGANIZ ATION 06/26/2022 [facility] DATE CREATED AUTHOR AUTHOR'S ORGANIZ ATION 01/21/2023 [facility] DATE CREATED AUTHOR AUTHOR'S ORGANIZ ATION [facility]/21/2023 [facility] DATE CREATED AUTHOR AUTHOR'S ORGANIZ ATION 02/26/2024 [facility] DATE CREATED AUTHOR AUTHOR'S ORGANIZ ATION 03/18/2024 [facility] Source Comments (unrecognize d section and content) In the event this informatio n is protected by the Federal Confidentiality of Alcohol and Drug Abuse Patient Records regulations: The Federal rules restrict any use of the information to criminally investigate or prosecute any alcohol or drug abuse patient.[facility] CenterIn the event this information is protected by the Federal Confidentiality of Alcohol and Drug Abuse Patient Records regulations: The Federal rules restrict any use of the information to criminally investigate or prosecute any alcohol or drug abuse patient.[facility] CenterIn the event this information is protected by the Federal Confidentiality of Alcohol and Drug Abuse Patient Records regulations: The Federal rules restrict any use of the information to criminally investigate or prosecute any alcohol or drug abuse patient.[facility] CenterIn the event this information is protected by the Federal Confidentiality of Alcohol and Drug Abuse Patient Records regulations: The Federal rules restrict any use of the information to criminally investigate or prosecute any alcohol or drug abuse patient.[facility] Reason for Visit (unrecogniz ed section and content) Reason Comments Follow Up Reason Comments Radio Gen A21 Reason Comments Numbness Peripheral Neuropathy Specialty Diagnoses / Procedures Referred By Tigre kilpatrick Referred To Contact Neurology Diagnoses Anesthesia of skin Procedures SD OFFICE/OUTPATIENT NEW LOW MDM 30 MINUTES Reina Schneider MD [address] [place] [address] [place] [address] Phone: tel: fax: Emmett Pineda, [address] [place] [address] Phone: tel: fax: Referral ID Status Reason Start Date Expiration Date V isits Requested Visits Authorized [id number] Closed Consult and Treat 02/11/2024 08/09/2024 1 1 Care Teams (unrecognized sec tion and content) [employer] Relationship Specialty Start Date End Date Alvin Contreras DO [address] [id number] PCP - General Internal Medicine 06/19/17 [employer] Relationship Specialty Start Date End Date Alvin Contreras DO [address] [id number] PCP - General Internal Medicine 06/19/17 [employer] Planning Relationship Specialty Start Date End Date Alvin Contreras DO [address] [id number] PCP - General Internal Medicine 06/19/17 Team Status: Active Member Role Status Dates Alvin Contreras DO Primary Care Provider Active Team Status: Active Member Role Status Dates Alvin Contreras DO Primary Care Provide r, Attending Provider Active Start: December 01, 2023 Team Status: Inactive Member Role Status Dates Alvin Contreras , Primary Care Provide r, Attending Provider Active Start: December 03, 2023 End: December 03, 2023 [employer] Relationship Specialty Start Date End Date Alvin Contreras MD [address] [place] [id number] PCP - General Internal Medicine 03/30/23 [employer] Relationship Specialty Start Date End Date Alvin Contreras MD [address] [place] [phone] PCP - General Internal Medicine 03/30/23 Bhavik Justin, PhD [address] [phone] Referring Physician Neuropsychology 02/22/24 [employer] Relationship Specialty Start Date End Date Alvin Contreras MD [address] [place] [phone] PCP - General Internal Medicine 03/30/23 Bhavik Justin, PhD [address] [phone] Referring Physician Neuropsychology 02/22/24 Goals (unrecognized section [...] BE BASED ON THE PRIMARY CLINICAL RECORDS. [facility] [employer] [facility]. provides no warranty or guarantee of the accuracy or completeness of information in this document.
== END 2024-03-21 10:29 | disposition home or self-care (01) ==
LOC: US 10:28
PROVIDERS: PCP Internal Medicine; Visit Provider Internal Medicine
DX: R10.12 Left upper quadrant pain (principal); N13.30 Unspecified hydronephrosis
CPT/HCPCS: 76705

== ENCOUNTER 2024-04-07 10:10 | Outpatient (OUT) | payer MEDICARE, OTHER, SELFPAY ==
--- OUTSIDE RECORDS SUMMARY | 2024-04-07 10:28 | XMS_ITS | CCD ---
Author Organization [facility]ini[facility] Care Team Providers Care Wet Wash Assembler Name Role Phone PHYSICIAN, DEFAULT Unavailable Unavailable [...] Alvin Contreras MD Primary Care Provider Nhan Marie, Bhavik Unavailable [phone] JR. PHELPS GEORGE C Attending Unavaila AMANDA Anders Attending Unavailable REINA SCHNEIDER Referring Unavailable AMANDA BETTENCOURT Attending Unavailable TEE NAGY Referring Unavailable ALPESH JENKINS Referring Unavailable ALPESH JENKINS Referring Unavailable ALPESH JENKINS Admitting Unavailable ALPESH JENKINS Attending Unavailable DREA LINO Attending Unavailable DREA LINO Attending Unavailable ALPESH JENKINS Referring Unavailable Amanda Bettencourt DO Unavailable Allergies Allergy Classification Reported Allergen(s) Allergy Type Date of Onset Reaction(s) Facility (2 sources) meperidine Drug Allergy 4 [facility] Repository (6 sources) Penicillins; Translations: [PENICILLINS] Drug allergy (disorder) 2 AOF, Unknown Reaction [facility] Repository (4 sources) Penicillins Drug Allergy 4 Hives [facility] (6 sources) Insects Extract; Translations: [INSECTS EXTRACT] Drug Allergy 1 Other: See Comments [facility] (3 sources) atorvastatin Drug Allergy 4 Unknown, Unknown Reaction [facility] (2 sources) Penicillin Drug Allergy Unknown [email or web address] Other (2 sources) Substance with penicillin structure and antibacterial mechanism of action (substance) Drug allergy Unknown [email or web address] Other (5 sources) Meperidine; Translations: [MEPERIDINE] Drug Allergy 8 [facility] (4 sources) Penicillins Drug Allergy 4 Hives, Rash, Other [facility] (1 source) carvedilol; Translations: [CARVEDILOL] Drug Allergy 3 [facility] Repository (1 source) Metoprolol; Translations: [METOPROLOL] Drug Allergy 3 [facility] Repository (1 source) nebivolol; Translations: [NEBIVOLOL] Drug Allergy 3 [facility] Repository Medications Current Medications Medication Drug Class(es) Dates Sig (Normalized) Sig (Original) amLODIPine 10 mg oral tablet (11 sources) Dihydropyridine Calcium Channel Lisa Start: 09-01-2023 [...] Refill. Active Oral daily *Pick strength-form from [employer] for eRX* Nov, Active Start: 08-02-2018 take [...] Active flecainide acetate 100 mg oral tablet (11 sources) Antiarrhythmic Start: 12-03-2023 take 50 mg [...] Oral two times daily *Pick strength-form from [employer] for eRX* Mar, Active Start: 10-08-2021 flecainide (TA MBOCOR) 100 mg tablet hydroCHLOROthiazide 25 mg / losartan potassium 100 mg oral tablet (9 sources) Thiazide Diuretic, Angiotensin 2 Receptor Lisa [...] Active -Hx Entry Oral *Pick strength-form from [employer] for eRX* Mar, Active magnesium citrate 58.2 mg/ml oral solution (4 sources) magnesium citrat e solution Take by mouth Active Multivitamin With Iron (1 source) Start: 4 take 1 tablet by mouth once daily Multivitamin With Iron Active 1 TAB PO Daily September 01, 2023 12:00am Potassium gluconate (4 sources) POTASSIUM GLUCON ATE PO Take by mouth Active ubidecarenone 100 mg oral tablet (4 sources) take 10 tablets by mouth once [...] 06-30-2019 Episodic Other aftercare (1 source) Other senior living (current) drug therapy; Translations: [OTH HALFWAY CURRENT DRUG THERAPY] Onset: 02-12-2022 Episodic Other [...] Range Facility Office Visiton 03-15-2024 Follow-up visit [id number] Lucinda Sharma 1950 M Date Provider Department Center 03/15/2024 DREA STOVALL CARD [facility] Family History Problem Relation Age of Onset Coronary artery disease Other Hypertension Other Family Status - Relation Status Age at Other Level of Service:11099 ME OFFICE/OUTPATIENT ESTABLISHED LOW MDM 20 MIN Reason for Visit and Comments: Follow-up [245560] - 3 month follow up Atrial Fibrillation [80] Normal [facility] EMG 2 Extremitieson 02-24-20 EMG/NCS BLE Severe sensory-motor polyneuropathy. [facility] NVC 9-10 Nerveson 02-24-2024 EMG/NCS BLE [facility]2023 [facility] Electrophysiology Consult Note Reason for visit: Afib [...] This was followed up with [facility] with [facility] protocol which was negative for inducible [...] CVL report IMPRESSION: Successful direct-current cardioversion with sikhism of sinus rhythm from atrial fibrillation with no immediate complication. 03/22/12: EPS EP study by Dr. Carmen Flores on 03/22/2012 for evaluation of wide-complex tachycardia in the setting of normal ejection fraction revealed normal HV interval but no evidence of any AH jump suggestive of dual AV node physiology and no tachycardia was induced. This was followed up with [facility] with [facility] protocol which was negative for inducible [...] CARDIAC CATHETERIZATION (more content not included)... Normal [facility] NURSNOTEon 12-09-2023 NURSNOTE RN educated pt on d/ c instructions. RN encouraged pt to voice any questions or concerns. Pt verbalizes no questions or concerns at this time. Pt walked off of unit with all of belongings. Normal [facility] 36on 12-02-2023 36 Regarding echo resul t from 11/24/2023: NILA Avitia MA; Alpesh Jenkins MD Severe biatrial enlargement LV systolic function low end of normal 50-55% RV normal size and function, normal rt sided pressures- no fluid overload LM on patient's VM. Normal [facility] Basophils Auto (Bld) [#/Vol] on 12-01-2023 Basophils (Bld) [#/Vol] 0.0 10 3/uL 0.0-0.1 [facility] Basophils/100 WBC Auto (Bld) on 12-01-2023 Basophils/100 WBC (Bld) 0.5 % 0.2-2.0 [facility] Eosinophils/100 WBC Auto (Bl d)on 12-01-2023 Eosinophils/100 WBC (Bld) 1.1 % 0.9-7.0 [facility] Erythrocyte distribution wid th Auto (RBC) [Ratio]on 12-01-2023 Erythrocyte distribution width (RBC) [Ratio] 12.8 % 11.0-15.0 [facility] Hematocrit Auto (Bld) [Volum e fraction]on 12-01-2023 Hematocrit (Bld) [Volume fraction] 40.8 % Low 42.0-54.0 [facility] Hemoglobin [Mass/volume] in Bloodon 12-01-2023 Hemoglobin (Bld) [Mass/Vol] 13.6 g/dL Low 14.0-18.0 [facility] Laboratory - Hematology and Cell countson 12-01-2023 Immature granulocytes/100 WBC (Bld) 0.3 % 0.0-0.5 [facility] Leukocytes [#/volume] correc evelyne for nucleated erythrocytes in Blood by Automated counon 12-01-2023 WBC corrected for nucl RBC Auto (Bld) [#/Vol] 6.4 10 3/uL 4.0-11.0 [facility] Lymphocytes Auto (Bld) [#/Vo l]on 12-01-2023 Lymphocytes (Bld) [#/Vol] 1.3 10 3/uL 1.2-3.8 [facility] Lymphocytes/100 WBC Auto (Bl d)on 12-01-2023 Lymphocytes/100 WBC (Bld) 20.7 % 20.5-60.0 [facility] MCH Auto (RBC) [Entitic mass ]on 12-01-2023 MCH (RBC) [Entitic mass] 31.7 pg 25.9-34.0 [facility] MCHC Auto (RBC) [Mass/Vol]on 12-01-2023 MCHC (RBC) [Mass/Vol] 33.3 g/dL 29.9-35.2 [facility] MCV Auto (RBC) [Entitic vol] on 12-01-2023 MCV (RBC) [Entitic vol] 95.1 fL High 80.0-94.0 [facility] Monocytes Auto (Bld) [#/Vol] on 12-01-2023 Monocytes (Bld) [#/Vol] 0.8 10 3/uL 0.3-0.8 [facility] Monocytes/100 WBC Auto (Bld) on 12-01-2023 Monocytes/100 WBC (Bld) 11.8 % 1.7-12.0 [facility] Neutrophils Auto (Bld) [#/Vo l]on 12-01-2023 Neutrophils (Bld) [#/Vol] 4.2 10 3/uL 1.4-6.5 [facility] Neutrophils/100 WBC Auto (Bl d)on 12-01-2023 Neutrophils/100 WBC (Bld) 65.6 % 43.0-75.0 [facility] No Panel Informationon 11-30 Eosinophils # (Auto) 0.1 10 3/uL 0.0-0.7 [facility] Immature Granulocyte # (Auto) 0.02 10 3/uL 0.00-0.03 [facility] Platelet mean volume Auto (B ld) [Entitic vol]on 12-01-2023 Platelet mean volume (Bld) [Entitic vol] 8.9 fL Low 9.5-13.5 [facility] Platelets Auto (Bld) [#/Vol] on 12-01-2023 Platelets (Bld) [#/Vol] 265 10 3/uL 150-450 [facility] RBC Auto (Bld) [#/Vol]on RBC (Bld) [#/Vol] 4.29 10 6/uL Low 4.70-6.10 [facility] Office Visiton 11-10-2023 Follow-up visit [id number] Lucinda Sharma 1950 Date Provider Department Center 11/10/2023 DREA STOVALL ARAM Panda Family History Problem Relation Age of Onset Coronary artery disease Other Hypertension Other Family Status - Relation Status Age at Other Level of Service:65664 ME OFFICE/OUTPATIENT ESTABLISHED MOD MDM 30 MIN Reason for Visit and Comments: Atrial Fibrillation [80] Normal [facility] Orders Onlyon 05-29-2023 Orders Only [id number] Lucinda Sharma 1950 Provider Department Center 05/29/2023 J CARLOS VICTOR CARD [facility] Family History Problem Relation Age of Onset Coronary artery disease Other Hypertension Other Family Status - Relation Status Age at Other Normal [facility] CNOVon 01-13-2023 CNOV Office Visit (ORFWHP ) BANG SHARMA ([id number]) 1950 Date Time Provider Department 01/13/23 2:30 PM HARESH PINEDA ORFWHP During your visit today, we recorded the following information about you: Haresh Pineda MD 01/13/2023 4:19 PM Signed Orthopaedic Surgery Follow-Up Clinic Note Surgery/Date: 08/27/2017 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 (CPT 74956 - 22) Placement of Prophylactic Carbon Fiber Tibial Nail, Right Tibia (CPT 16735) High Speed Ehsna and Adjuvant Treatment with 10% H202 (CPT 28911) Neruolysis and Dissection of Deep Peroneal Nerve (CPT 36111) Right Iliac Crest Marrow Aspiration/Catherine ( CPT 31439) Diagnosis: Right Tibial Diaphysis Cartilage Lesion with [...] the date of the service which included [id number] patient care, completing clinical documentation, obtaining and/or [...] information added by medical student, resident, nurse, MOTORS AND CONTROLS TESTER/PA-C that I have placed my signature directly below I have verified and either instructed them to document in a scribe function or document appropriately in the chart during the patient visit. Haresh Beavers (more content not included)... Normal [facility] XR ANKLE 3V AP/LAT/OBL LTon 01-13-2023 XR ANKLE 3V AP/LAT/OBL LT * * *Final Report* * * DATE OF EXAM: Jan 13 2023 2:19PM AOX 5298 - XR ANKLE 3V AP/LAT/OBL LT / PROCEDURE REASON: multiple diagnoses * * * * Physician Interpretation * * * * HISTORY: Chondrosarcoma (HCC) TECHNOLOGIST PROVIDED HISTORY (if applicable): follow up right lower leg (accession [id number]), left ankle pain and popping sensation (accession [id number]) TECHNIQUE: XR TIBIA FIBULA 2V AP/LAT RT, [...] SIGNIFICANT CHANGE. NO RADIOGRAPHIC SIGNS OF RECURRENCE. Extrusion Die Coordinator: BARBARA Transcribe Date/Time: Jan 13 2023 4:43P Dictated by : JULISA WEAVER MD This examination was interpreted and the report reviewed and electronically signed by: JULISA WEAVER MD on Jan 13 2023 4:53PM EST [id number] Normal [facility] XR CHEST 2V FRONTAL/LATon XR [...] tissues: Spine degenerative changes IMPRESSION: See result Extrusion Die Coordinator: BARBARA Transcribe Date/Time: Jan 15 2023 3:13P Dictated by : RIKKI PEDERSEN MD This examination was interpreted and the report reviewed and electronically signed by: RIKKI PEDERSEN MD on Jan 15 2023 3:14PM EST [id number] Normal [facility] XR TIBIA FIBULA 2V AP/LAT [...] applicable): follow up right lower leg (accession [id number]), left ankle pain and popping sensation (accession [id number]) TECHNIQUE: XR TIBIA FIBULA 2V AP/LAT RT, [...] SIGNIFICANT CHANGE. NO RADIOGRAPHIC SIGNS OF RECURRENCE. Extrusion Die Coordinator: BARBARA Transcribe Date/Time: Jan 13 2023 4:43P Dictated by : JULISA WEAVER MD This examination was interpreted and the report reviewed and electronically signed by: JULISA WEAVER MD on Jan 13 2023 4:53PM EST [id number] Normal [facility] FLECAINEon 06-24-2022 FLECAINIDE 0.39 ug/ml Normal 0.20 - 1.00 [facility] Comment on above: Result Comment: Flec ainide reported as flecainide acetate. The reference range also is defined as flecaininde acetate. This test was developed and its performance characteristics determined by [employer] It has not been cleared or approved by the Food and Drug Administration. Performed By: #### T SH, BMP, LIPID, ALT #### [facility] [address] [place] [address] Dr. Fidel Paige CBC AUTO DIFFon 06-09-2022 BASO # 0.0 103/ul Normal 0.0-0.1 [facility] Comment on above: Performed By: #### C BC #### [facility] [address] [place] [address] Dr. Fidel Paige Basophils/100 WBC (Bld) 0.6 % Normal 0.2-2.0 [facility] Comment on above: Performed By: #### C BC #### [facility] [address] [place] [address] Dr. Fidel Paige EO # 0.1 103/ul Normal 0.0-0.7 [facility] Comment on above: Performed By: #### C BC #### [facility] [address] [place] [address] Dr. Fidel Paige Eosinophils/100 WBC (Bld) 2.8 % Normal 0.9-7.0 [facility] Comment on above: Performed By: #### C BC #### [facility] [address] [place] [address] Dr. Fidel Paige Erythrocyte distribution width (RBC) [Ratio] 12.8 % Normal 11.0-15.0 [facility] Comment on above: Performed By: #### C BC #### [facility] [address] [place] [address] Dr. Fidel Paige Hematocrit (Bld) [Volume fraction] 41.9 % Critically low 42.0-54.0 [facility] Comment on above: Performed By: #### C BC #### [facility] [address] [place] [address] Dr. Fidel Paige Hemoglobin (Bld) [Mass/Vol] 14.1 g/dL Normal 14.0-18.0 [facility] Comment on above: Performed By: #### C BC #### [facility] [address] [place] [address] Dr. Fidel Paige IG # 0.01 10e3/ul Normal 0.00-0.03 [facility] Comment on above: Performed By: #### C BC #### [facility] [address] [place] [address] Dr. Fidel Paige IG % 0.2 % Normal 0.0-0.5 [facility] Comment on above: Performed By: #### C BC #### [facility] [address] [place] [address] Dr. Fidel Paige LYMPH # 1.4 103/ul Normal 1.2-3.8 [facility] Comment on above: Performed By: #### C BC #### [facility] [address] [place] [address] Dr. Fidel Paige Lymphocytes/100 WBC (Bld) 29.2 % Normal 20.5-60.0 [facility] Comment on above: Performed By: #### C BC #### [facility] [address] [place] [address] Dr. Fidel Paige MANUAL DIFF REQ NO Normal [facility] Comment on above: Performed By: #### C BC #### [facility] [address] [place] [address] Dr. Fidel Paige MCH (RBC) [Entitic mass] 31.3 pg Normal 25.9-34.0 [facility] Comment on above: Performed By: #### C BC #### [facility] [address] [place] [address] Dr. Fidel Paige MCHC (RBC) [Mass/Vol] 33.7 g/dL Normal 29.9-35.2 [facility] Comment on above: Performed By: #### C BC #### [facility] [address] [place] [address] Dr. Fidel Paige MCV (RBC) [Entitic vol] 92.9 fL Normal 80.0-94.0 [facility] Comment on above: Performed By: #### C BC #### [facility] [address] [place] [address] Dr. Fidel Paige MONO # 0.7 103/ul Normal 0.3-0.8 [facility] Comment on above: Performed By: #### C BC #### [facility] [address] [place] [address] Dr. Fidel Paige Monocytes/100 WBC (Bld) 13.4 % Critically high 1.7-12.0 [facility] Comment on above: Performed By: #### C BC #### [facility] [address] [place] [address] Dr. Fidel Paige NEUT # 2.7 103/ul Normal 1.4-6.5 [facility] Comment on above: Performed By: #### C BC #### [facility] [address] [place] [address] Dr. Fidel Paige Neutrophils/100 WBC (Bld) 53.8 % Normal 43.0-75.0 [facility] Comment on above: Performed By: #### C BC #### [facility] [address] [place] [address] Dr. Fidel Paige Platelet mean volume (Bld) [Entitic vol] 8.7 fL Critically low 9.5-13.5 [facility] Comment on above: Performed By: #### C BC #### [facility] [address] [place] [address] Dr. Fidel Paige PLT 278 103/ul Normal 150-450 [facility] Comment on above: Performed By: #### C BC #### [facility] [address] [place] [address] Dr. Fidel Paige RBC 4.51 106/ul Critically low 4.70-6.10 [facility] Comment on above: Performed By: #### C BC #### [facility] [address] [place] [address] Dr. Fidel Paige WBC 4.9 103/ul Normal 4.0-11.0 [facility] Comment on above: Performed By: #### C BC #### [facility] [address] [place] [address] Dr. Fidel Paige MAGNESIUMon 06-09-2022 Magnesium [Mass/Vol] 2.0 mg/dL Normal 1.8-2.4 [facility] Comment on above: Performed By: #### T SH, MG, BMP #### [facility] [address] [place] [address] Dr. Fidel Paige PROF CHEM 8 (BAS METB)on Anion gap [Moles/Vol] 8.2 mmol/L Normal [facility] Comment on above: Performed By: #### T SH, MG, BMP #### [facility] [address] [place] [address] Dr. Fidel Paige Calcium [Mass/Vol] 10.2 mg/dL Critically high 8.5-10.1 [facility] Comment on above: Performed By: #### T SH, MG, BMP #### [facility] [address] [place] [address] Dr. Fidel Paige Chloride [Moles/Vol] 105 mmol/L Normal 98-107 [facility] Comment on above: Performed By: #### T SH, MG, BMP #### [facility] [address] [place] [address] Dr. Fidel Paige CO2 [Moles/Vol] 29.6 mmol/L Normal 21.0-32.0 [facility] Comment on above: Performed By: #### T SH, MG, BMP #### [facility] [address] [place] [address] Dr. Fidel Paige Creatinine [Mass/Vol] 0.81 mg/dL Normal 0.70-1.30 [facility] Comment on above: Performed By: #### T SH, MG, BMP #### [facility] [address] [address] [address] Fidel Paige EGFR-AF CITIZEN OF [place] >60 Normal >=60 [facility] Comment on above: Performed By: #### T SH, MG, BMP #### [facility] [address] [address] [address] Fidel Paige EGFR-NON AF CITIZEN OF [place] >60 Normal >=60 [facility] Comment on above: Performed By: #### T SH, MG, BMP #### [facility] [address] [address] [address] Fidel Paige Glucose [Mass/Vol] 100 mg/dL Normal 74-106 [facility] Comment on above: Performed By: #### T SH, MG, BMP #### [facility] [address] [place] [address] Dr. Fidel Paige Potassium [Moles/Vol] 3.8 mmol/L Normal 3.5-5.1 [facility] Comment on above: Performed By: #### T BEATRIS, MG, BMP #### [facility] [address] [address] [address] Fidel Paige Sodium [Moles/Vol] 139 mmol/L Normal 136-145 [facility] Comment on above: Performed By: #### T SH, MG, BMP #### [facility] [address] [place] [address] Dr. Fidel Paige Urea nitrogen [Mass/Vol] 12.0 mg/dL Normal 7.0-18.0 [facility] Comment on above: Performed By: #### T SH, MG, BMP #### [facility] [address] [address] [address] Fidel Paige Urea nitrogen/Creatinin e [Mass ratio] 14.8 mg/mg Normal [facility] Comment on above: Performed By: #### T SH, MG, BMP #### [facility] [address] [address] [address] Fidel Paige TSHon 06-09-2022 TSH 0.891 uIU/mL Normal 0.358-3.740 [facility] Comment on above: Performed By: #### T SH, MG, BMP #### [facility] [address] [place] [address] Dr. Fidel Paige CBC AUTO DIFFon 02-07-2022 BASO # 0.0 103/ul Normal 0.0-0.1 [facility] Comment on above: Performed By: #### T SH, BMP, LIPID, ALT #### [facility] [address] [place] [address] Dr. Fidel Paige Basophils/100 WBC (Bld) 0.3 % Normal 0.2-2.0 [facility] Comment on above: Performed By: #### T SH, BMP, LIPID, ALT #### [facility] [address] [place] [address] Dr. Fidel Paige EO # 0.1 103/ul Normal 0.0-0.7 [facility] Comment on above: Performed By: #### T SH, BMP, LIPID, ALT #### [facility] [address] [place] [address] Dr. Fidel Paige Eosinophils/100 WBC (Bld) 2.1 % Normal 0.9-7.0 [facility] Comment on above: Performed By: #### T SH, BMP, LIPID, ALT #### [facility] [address] [place] [address] Dr. Fidel Paige Erythrocyte distribution width (RBC) [Ratio] 13.1 % Normal 11.0-15.0 [facility] Comment on above: Performed By: #### T SH, BMP, LIPID, ALT #### [facility] [address] [place] [address] Dr. Fidel Paige Hematocrit (Bld) [Volume fraction] 45.2 % Normal 42.0-54.0 [facility] Comment on above: Performed By: #### T SH, BMP, LIPID, ALT #### [facility] [address] [place] [address] Dr. Fidel Paige Hemoglobin (Bld) [Mass/Vol] 14.8 g/dL Normal 14.0-18.0 [facility] Comment on above: Performed By: #### T SH, BMP, LIPID, ALT #### [facility] [address] [address] [address] Fidel Paige IG # 0.02 10e3/ul Normal 0.00-0.03 [facility] Comment on above: Performed By: #### T SH, BMP, LIPID, ALT #### [facility] [address] [address] [address] Fidel Paige IG % 0.3 % Normal 0.0-0.5 [facility] [facility] [place] Comment on above: Performed By: #### T SH, BMP, LIPID, ALT #### [facility] [address] [place] [address] Dr. Fidel Paige LYMPH # 1.4 103/ul Normal 1.2-3.8 [facility] Comment on above: Performed By: #### T SH, BMP, LIPID, ALT #### [facility] [address] [place] [address] Dr. Fidel Paige Lymphocytes/100 WBC (Bld) 23.2 % Normal 20.5-60.0 [facility] Comment on above: Performed By: #### T SH, BMP, LIPID, ALT #### [facility] [address] [address] [address] Fidel Paige MANUAL DIFF REQ NO Normal [facility] Comment on above: Performed By: #### T SH, BMP, LIPID, ALT #### [facility] [address] [address] [address] Fidel Paige MCH (RBC) [Entitic mass] 31.6 pg Normal 25.9-34.0 [facility] Comment on above: Performed By: #### T SH, BMP, LIPID, ALT #### [facility] [address] [place] [address] Dr. Fidel Paige MCHC (RBC) [Mass/Vol] 32.7 g/dL Normal 29.9-35.2 [facility] Comment on above: Performed By: #### T SH, BMP, LIPID, ALT #### [facility] [address] [address] [address] Fidel Paige MCV (RBC) [Entitic vol] 96.6 fL Critically high 80.0-94.0 The [facility] Comment on above: Performed By: #### T SH, BMP, LIPID, ALT #### [facility] [address] [place] [address] Dr. Fidel Paige MONO # 0.7 103/ul Normal 0.3-0.8 The [facility] Comment on above: Performed By: #### T SH, BMP, LIPID, ALT #### [facility] [address] [place] [address] Dr. Fidel Paige Monocytes/100 WBC (Bld) 11.7 % Normal 1.7-12.0 The [facility] Comment on above: Performed By: #### T SH, BMP, LIPID, ALT #### [facility] [address] [place] [address] Dr. Fidel Paige NEUT # 3.6 103/ul Normal 1.4-6.5 The [facility] Comment on above: Performed By: #### T SH, BMP, LIPID, ALT #### [facility] [address] [place] [address] Dr. Fidel Paige Neutrophils/100 WBC (Bld) 62.4 % Normal 43.0-75.0 [facility] Comment on above: Performed By: #### T SH, BMP, LIPID, ALT #### [facility] [address] [place] [address] Dr. Fidel Paige Platelet mean volume (Bld) [Entitic vol] 8.8 fL Critically low 9.5-13.5 The [facility] Comment on above: Performed By: #### T SH, BMP, LIPID, ALT #### [facility] [address] [place] [address] Dr. Fidel Paige PLT 283 103/ul Normal 150-450 The [facility] Comment on above: Performed By: #### T SH, BMP, LIPID, ALT #### [facility] [address] [place] [address] Dr. Fidel Paige RBC 4.68 106/ul Critically low 4.70-6.10 [facility] Comment on above: Performed By: #### T SH, BMP, LIPID, ALT #### [facility] [address] [address] [address] Fidel Paige WBC 5.8 103/ul Normal 4.0-11.0 The [facility] Comment on above: Performed By: #### T SH, BMP, LIPID, ALT #### [facility] [address] [address] [address] Fidel Paige LIPID PROFILEon 02-07-2022 CHOL-HDL RATIO NORM SEE BELOW Normal The [facility] Comment on above: Result Comment: 3.3 - 4.4 LOW RISK 4.4 - 7.1 AVERAGE RISK 7.1 - 11.0 MODERATE RISK >11.0 HIGH RISK Performed By: #### T SH, BMP, LIPID, ALT #### [facility] [address] [place] [address] Dr. Fidel Paige Cholesterol [Mass/Vol] 191 mg/dL Normal <=200 The [facility] Comment on above: Performed By: #### T SH, BMP, LIPID, ALT #### [facility] [address] [place] [address] Dr. Fidel Paige Cholesterol in HDL [Mass/Vol] 42 mg/dL Normal 40-60 [facility] Comment on above: Performed By: #### T SH, BMP, LIPID, ALT #### [facility] [address] [place] [address] Dr. Fidel Paige Cholesterol in LDL [Mass/Vol] 118.0 mg/dL Normal The [facility] Comment on above: Performed By: #### T SH, BMP, LIPID, ALT #### [facility] [address] [place] [address] Dr. Fidel Paige Cholesterol.total/ Cholesterol in HDL [Mass ratio] 4.5 {ratio} Normal The [facility] Comment on above: Performed By: #### T SH, BMP, LIPID, ALT #### [facility] [address] [place] [address] Dr. Fidel Paige HDL NORMAL > or = 60 mg/dl - LO W CARDIOVASCULAR RISK <40 mg/dl - HIGH CARDIOVASCULAR RISK Normal [facility] Comment on above: Performed By: #### T SH, BMP, LIPID, ALT #### [facility] [address] [address] [address] Fidel Paige LDL CALC NORMAL SEE BELOW Normal [facility] Comment on above: Result Comment: <100 mg/dl OPTIMAL 100 - 129 mg/dl NEAR OR ABOVE OPTIMAL 130 - 159 mg/dl BORDERLINE HIGH 160 - 189 mg/dl HIGH >190 mg/dl VERY HIGH Performed By: #### T SH, BMP, LIPID, ALT #### [facility] [address] [address] [address] Fidel Paige Triglyceride [Mass/Vol] 155 mg/dL Critically high <=150 The [facility] Comment on above: Performed By: #### T SH, BMP, LIPID, ALT #### [facility] [address] [address] [address] Fidel Paige VLDL CALC 31.0 mg/dL Normal The [facility] Comment on above: Performed By: #### T SH, BMP, LIPID, ALT #### [facility] [address] [address] [address] Fidel Paige PROF CHEM 8 (BAS METB)on Anion gap [Moles/Vol] 11.0 mmol/L Normal [facility] Comment on above: Performed By: #### T SH, BMP, LIPID, ALT #### [facility] [address] [address] [address] Fidel Paige Calcium [Mass/Vol] 10.1 mg/dL Normal 8.5-10.1 [facility] Comment on above: Performed By: #### T SH, BMP, LIPID, ALT #### [facility] [address] [address] [address] Fidel Paige Chloride [Moles/Vol] 105 mmol/L Normal 98-107 The [facility] Comment on above: Performed By: #### T SH, BMP, LIPID, ALT #### [facility] [address] [address] [address] Fidel Paige CO2 [Moles/Vol] 29.0 mmol/L Normal 21.0-32.0 The [facility] Comment on above: Performed By: #### T SH, BMP, LIPID, ALT #### [facility] [address] [address] [address] Fidel Paige Creatinine [Mass/Vol] 0.85 mg/dL Normal 0.70-1.30 [facility] Comment on above: Performed By: #### T SH, BMP, LIPID, ALT #### [facility] [address] [address] [address] Fidel Paige EGFR-AF CITIZEN OF [place] >60 Normal >=60 [facility] Comment on above: Performed By: #### T SH, BMP, LIPID, ALT #### [facility] [address] [address] [address] Fidel Paige EGFR-NON AF CITIZEN OF [place] >60 Normal >=60 [facility] Comment on above: Performed By: #### T SH, BMP, LIPID, ALT #### [facility] [address] [place] [address] Dr. Fidel Paige Glucose [Mass/Vol] 101 mg/dL Normal 74-106 [facility] Comment on above: Performed By: #### T SH, BMP, LIPID, ALT #### [facility] [address] [address] [address] Fidel Paige Potassium [Moles/Vol] 4.0 mmol/L Normal 3.5-5.1 [facility] Comment on above: Performed By: #### T SH, BMP, LIPID, ALT #### [facility] [address] [address] [address] Fidel Paige Sodium [Moles/Vol] 141 mmol/L Normal 136-145 [facility] Comment on above: Performed By: #### T SH, BMP, LIPID, ALT #### [facility] [address] [address] [address] Fidel Paige Urea nitrogen [Mass/Vol] 13.0 mg/dL Normal 7.0-18.0 [facility] Comment on above: Performed By: #### T SH, BMP, LIPID, ALT #### [facility] [address] [address] [address] Fidel Paige Urea nitrogen/Creatinin e [Mass ratio] 15.3 mg/mg Normal [facility] Comment on above: Performed By: #### T SH, BMP, LIPID, ALT #### [facility] [address] [address] [address] Fidel Paige SGPTon 02-07-2022 ALT [Catalytic activity/Vol] 26 U/L Normal 16-63 [facility] Comment on above: Performed By: #### T SH, BMP, LIPID, ALT #### [facility] [address] [address] [address] Fidel Paige TSHon 02-07-2022 TSH 0.856 uIU/mL Normal 0.358-3.740 [facility] Comment on above: Performed By: #### T SH, BMP, LIPID, ALT #### [facility] [address] [address] [address] Fidel Paige XR CHEST 2V FRONTAL/LATon [facility] US VENOUS DOPPLER L Cristian US VENOUS [...] 12:51 Normal [facility] Vital Signs Date Time Vital Sign Value Performing Clinician Facility 02-22-2024 10:41050 Body height 189.2 cm Amanda HelloFax DO Work Phone: [facility] 02-22-2024 10:41050 Body mass index (BMI) [Ratio] 32.18 kg/m2 Amanda Rut DO Work Phone: [facility] 02-22-2024 10:41050 Body weight 115.21 kg Amanda Seguro Surgical Work Phone: [facility] 02-22-2024 10:41-0500 Diastolic blood pressure 86 mm[Hg] Amanda Rut DO Work Phone: [facility] 02-22-2024 10:41-0500 Heart rate 88 /min Amanda Rut DO Work Phone: [facility] 02-22-2024 10:41-0500 SaO2% (BldA) [Mass fraction] 99 % Amanda Rut DO Work Phone: [facility] 02-22-2024 10:41-0500 Systolic blood pressure 142 mm[Hg] Amanda Rut DO Work Phone: [facility] 12-03-2023 11:04-0400 Body height 185.42 cm [facility] 12-03-2023 11:04-0400 Body mass index (BMI) [Ratio] 33.8 kg/m2 [facility] 12-03-2023 11:04-0400 Body weight 116.28 kg [facility] 12-03-2023 11:04-0400 Diastolic blood pressure 86 mm[Hg] [facility] 12-03-2023 11:04-0400 Heart rate 71 /min [facility] 12-03-2023 11:04-0400 Respiratory rate 12 /min [facility] 12-03-2023 11:04-0400 Systolic blood pressure 130 mm[Hg] [facility] Encounters Encounter Date Encounter Type Care Provider Facility Start: 04-05-2024 End: 04-05-2024 Bamboo flowsheet [facility] Rut [facility] Start: 04-05-2024 End: 04-05-2024 Bamboo flowsheet Amanda Rut DO Work Phone: [facility] [address] Start: 03-15-2024 End: 03-15-2024 ambulatory [facility]RE[facility] Start: 03-07-2024 ambulatory [facility] Start: 02-24-2024 End: 02-24-2024 ambulatory AMANDA RUT Not Available Start: 02-24-2024 End: 02-24-2024 Patient encounter procedure Amanda Rut DO Work Phone: [facility] Comment on above: Idiopathic periphera l neuropathy Start: 02-22-2024 End: 02-22-2024 Bamboo flowsheet Amanda Rut DO Work Phone: [facility] Start: 02-22-2024 End: 02-22-2024 Bamboo flowsheet Amanda Rut DO Work Phone: [facility] Start: 02-22-2024 End: 02-22-2024 ambulatory AMANDA RUT Not Available Start: 02-22-2024 End: 02-22-2024 Office outpatient new 45 minutes Amanda Rut DO Work Phone: 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 Work Phone: Start: 12-01-2023 Non-patient / [facility]-visit [facility] [employer] Work Phone: Start: 11-10-2023 End: 11-10-2023 ambulatory DREA TANCKER [facility] Start: 06-04-2023 End: 06-04-2023 ambulatory Alvin Contreras Other [place] [address] Other Start: 06-04-2023 Encounter by sergio Contreras [facility] Start: 05-29-2023 End: 05-29-2023 ambulatory Alvin Contrreas Other [email or web address] Other Start: 05-29-2023 Telephone encounter Alvin Contreras FP [facility] Start: 03-30-2023 End: 03-30-2023 ambulatory NIKKI MITCHELL Not Available Start: 01-13-2023 End: 01-14-2023 ambulatory HARESH PINEDA Facility:[facility] Start: 01-12-2023 Orders Only Haresh [...] 11-09-2017 End: 11-10-2017 Patient encounter DEFAULT PHYSICIAN Facility:[facility] Procedures Date Procedure Procedure Detail Performing Clinician Start: 03-15-2024 Follow-up visit Follow-up DREA LINO Start: 02-24-2024 End: 02-24-2024 Needle emg ea extremty w/paraspinl area complete Amanda Bettencourt DO Work Phone: Start: 02-07-[address] [facility]ING [facility] [place] Comment on above: Performed By: #### T SH, BMP, LIPID, ALT #### [facility] [address] [place], [place] [address] Dr. Fidel Paige Start: 11-05-2021 Radiologic exam ches t 2 views Eric Taylor APRN.[employer] Work Phone: Start: 11-05-2021 Radiologic examinati on tibia & fibula 2 views Eric Taylor APRN.CNP Work Phone: Start: 06-30-2019 Adult depression scr eening assessment Haresh Pineda MD Work Phone: Plan of Treatment Date Care Activity Detail Author Start: 02-12-2025 Screening for malign ant neoplasm of colon [facility] Start: 04-05-2024 End: 04-05-2024 Patient encounter procedure [facility] Comment on above: Arrived Start: 02-24-2024 End: 02-24-2024 Patient encounter procedure 02/24/2024 1:00 PM EST Procedure Visit [facility] [address] [id number] Amanda Bettencourt, [address] [place] [address] [facility] Start: 02-22-2024 End: 02-21-2025 Cobalamin (Vitamin B12) [Mass/volume] in Serum or Plasma Vitamin B12 Lab Routine Idiopathic peripheral neuropathy Expected: 02/22/2024 (Approximate), Expires: 02/21/2025 [facility] Work Phone: Comment on above: Expected: 02/22/2024 (Approximate), Expires: 02/21/2025 Start: 02-22-2024 End: 02-21-2025 EMG 2 Extremities EMG 2 Extremities Neurology Routine Idiopathic peripheral neuropathy Expected: 02/22/2024 (Approximate), Expires: 02/21/2025 [facility] Comment on above: Expected: 02/22/2024 (Approximate), Expires: 02/21/2025 Start: 02-22-2024 End: 02-21-2025 Folate [Mass/volume] in Serum or Plasma Folate Lab Routine Idiopathic peripheral neuropathy Expected: 02/22/2024 (Approximate), Expires: 02/21/2025 [facility] Comment on above: Expected: 02/22/2024 (Approximate), Expires: 02/21/2025 Start: 02-22-2024 End: 02-21-2025 NVC 9-10 Nerves NVC 9-10 Nerves Neurology Routine Idiopathic peripheral neuropathy Expected: 02/22/2024 (Approximate), Expires: 02/21/2025 [facility] Comment on above: Expected: 02/22/2024 (Approximate), Expires: 02/21/2025 Start: 02-22-2024 End: 02-21-2025 Protein electrophoresis, serum Protein electrophoresis, serum Lab Routine Idiopathic peripheral neuropathy Expected: 02/22/2024 (Approximate), Expires: 02/21/2025 [facility] Comment on above: Expected: 02/22/2024 (Approximate), Expires: 02/21/2025 Start: 02-22-2024 End: 02-21-2025 Thyrotropin [Units/volume] in Serum or Plasma TSH Lab Routine Idiopathic peripheral neuropathy Expected: 02/22/2024 (Approximate), Expires: 02/21/2025 [facility] Comment on above: Expected: 02/22/2024 (Approximate), Expires: 02/21/2025 Start: 12-19-2022 Influenza vaccination [facility] Start: 11-05-2022 End: 12-05-2022 Radiologic exam chest 2 views XR CHEST 2V FRONTAL/LAT Radiology Routine Chondrosarcoma (HCC) Expected: 11/05/2022 (Approximate), Expires: 12/05/2022 [facility] Work Phone: Comment on above: Expected: 11/05/2022 (Approximate), Expires: 12/05/2022 Start: 11-05-2022 End: 12-05-2022 XR TIBIA FIBULA 2V AP/LAT RIGHT XR TIBIA FIBULA 2V AP/LAT RIGHT Radiology Routine Chondrosarcoma (HCC) Expected: 11/05/2022 (Approximate), Expires: 12/05/2022 [facility] Work Phone: Comment on above: Expected: 11/05/2022 (Approximate), Expires: 12/05/2022 Start: 10-25-2022 DIABETES SCREEN DIABETES SCREEN [facility] Start: 10-25-2022 Diabetes Screening Diabetes Screenin g [facility] Start: 04-20-2022 ADVANCE DIRECTIVE DISCUSSION ADVANCE DIRECTIVE DISCUSSION [facility] Start: 04-20-2022 DEPRESSION ASSESSMENT DEPRESSION ASS ESSMENT [facility] Start: 12-19-2021 Influenza vaccination INFLUENZA (#1) [facility] Start: 11-18-2021 COVID-19 VACCINE (5 - Pfizer series) COVID-19 VACCINE (5 - Pfizer series) [facility] Start: 04-20-2021 ADVANCE DIRECTIVE DISCUSSION ADVANCE DIRECTIVE DISCUSSION [facility] Start: 06-29-2020 Adult depression screening assessment DEPRESSION SCREENING [facility] Start: 2014 Pneumococcal Vaccine : 65+ (1 - PCV) Pneumococcal Vaccine: 65+ (1 - PCV) [facility] Start: 2014 PNEUMOCOCCAL: 65+ (1 - PCV) PNEUMOCOCCAL: 65+ (1 - PCV) [facility] Start: 09-19-1999 SHINGRIX VACCINE (1 of 2) SHINGRIX VACCINE (1 of 2) [facility] Start: 1994 COLOGUARD (FIT-DNA) COLOGUARD (FIT-D NA) [facility] Start: 1994 Colonoscopy COLONOSCOPY [facility] Start: 1994 COLORECTAL CANCER SCREENING COLORECTAL CANCER SCREENING [facility] Start: [address] COLONOGRAPHY [facility] Start: 1994 FECAL OCCULT BLOOD FECAL OCCULT BLOO D [facility] Start: 1994 SIGMOIDOSCOPY SIGMOIDOSCOPY [facility] Start: 1984 Lipid 1996 panel - Serum or Plasma Lipid Screening [facility] Start: 1984 LIPID SCREEN LIPID SCREEN [facility] Start: 1968 Urine microalbumin profile [facility] Start: 09-19-1967 ANNUAL PCP TEAM DISTRIBUTION CENTER ASSISTANT LEE ANN DISEASE VISIT ANNUAL PCP TEAM CHRONIC DISEASE VISIT [facility] Start: 09-19-1967 BP CONTROLLED (<130/80) BP CONTROLLE D (<130/80) [facility] Start: 09-19-1967 HEPATITIS C SCREENING HEPATITIS C SC REENING [facility] Start: 1949 Screening for malign ant neoplasm of colon [facility] End: 12-17-2023 Radiologic exam chest 2 views XR CHEST 2V FRONTAL/LAT Radiology Routine Chondrosarcoma (HCC) 1 Occurrences starting 11/17/2022 until 12/17/2023 [facility] Work Phone: Comment on above: 1 Occurrences starti ng 11/17/2022 until 12/17/2023 End: 02-11-2024 XR ANKLE GENERAL 3V AP/LAT/OBL LEFT XR ANKLE GENERAL 3V AP/LAT/OBL LEFT Radiology Routine Chronic pain of left ankle 1 Occurrences starting 01/12/2023 until 02/11/2024 [facility] Work Phone: Comment on above: 1 Occurrences starti ng 01/12/2023 until 02/11/2024 End: 12-17-2023 XR TIBIA FIBULA 2V AP/LAT RIGHT XR TIBIA FIBULA 2V AP/LAT RIGHT Radiology Routine Chondrosarcoma (HCC) 1 Occurrences starting 11/17/2022 until 12/17/2023 [facility] Work Phone: Comment on above: 1 Occurrences starti ng 11/17/2022 until 12/17/2023 XR TIBIA FIBULA 2V AP/LAT RT XR TIBIA FIBULA 2V AP/LAT RT Radiology Routine Chondrosarcoma (HCC) 11/05/2021 2:50 PM EDT [facility] Work Phone: [facility] Immunizations Immunization Date Immunization Notes Care Provider Fa cili 02-10-2022 influenza virus vaccine, split virus (incl. purified surface antigen) Alvin Contreras Other [facility] [employer] Other 02-10-2022 influenza virus vaccine, unspecified formulation [facility] 05-29-2020 COVID-19 Vaccine Pfi zer - Documentation Purposes Only Alvin Contreras Other [facility] 10-02-2016 diphtheria, tetanus toxoids and acellular pertussis vaccine, unspecified formulation Alvin Contreras Other [facility] 03-23-2016 pneumococcal conjuga te vaccine, 13 valent Alvin Contreras Other [facility] 03-01-2009 pneumococcal polysaccharide vaccine, 23 valent Alvin Contreras Other [facility] 02-25-2006 diphtheria, tetanus toxoids and acellular pertussis vaccine, unspecified formulation Alvin Contreras Other [facility] Payers Date Payer Category Payer Medicare MEDICARE MEDICAR E A AND B [id number] 2014-Present [phone] [address] [address] [place] [address] Medicare [id number] 2014 Medicare [id number] 2014 Private Health Insurance [employer] [place] [id number] 2014 Unknown 2014 Unknown [employer] 2N D [id number] 2014-Present [phone] [address] [address] [place] [id number] Indemnity [id number] 2014 Unknown [id number] 1959 Medicare [id number] 1959 Unknown [id number] 1949 Unknown [id number] 1949 Unknown [id number] 1949 Unknown [id number] 1949 Unknown [id number] 1949 Unknown [id number] 1949 Unknown [id number] Social History Date Type Detail Facility Start: 07-17-2017 Tobacco smoking stat [facility] Never smoked tobacco [facility] Start: 07-17-2017 End: 02-22-2024 Tobacco use and exposure Smokeless tobacco non-user [facility] Start: 1950 Sex Assigned At Male C [facility] Start: 10-26-2021 End: 11-05-2021 Exposure to SARS-CoV-2 (event) Not sure [facility] Start: 05-18-2022 End: 02-22-2024 History of Social function [facility] Start: 05-18-2022 End: 02-22-2024 Area Deprivation Index [facility] National Score (1-10 0), lower number is lower risk 60 [facility] Start: 11-23-2019 Sexual orientation Heterosexual (fin paige) [facility] Tobacco smoking stat [facility] Tobacco smoking consumption unknown [facility] Start: 1950 Sex assigned at Not on file [facility] Start: 02-22-2024 Tobacco smoking stat [facility] Ex-smoker [facility] History of tobacco use Current smoker [facility] History of tobacco use Cigarette Smoker [facility] Medical Equipment Procedure Code Equipment Code Equipment Origin al Text Equipment Identifier Dates Graft Enhance Demineralized Cortical Fiber Bone Allograft Dehydrate 2.5ml - [id number] Start: 08-27-2017 Graft Cancellous Chips Bone Void Freeze Dry 30ml (1.7-10mm) - [id number] Start: 08-27-2017 Graft Dbx Bone V oid Allograft Freeze Dried Putty 1ml - [id number] Start: 08-27-2017 Tibial Nail [id number] Start: 08-27-2017 Carbofix Titaniumscrew [id number]_[facility] S tart: 08-27-2017 Carbofix Titaniu m Screw [id number] Start: 08-27-2017 Carbofix Titaniu m Screw [id number] Start: 08-27-2017 Carbofix Titaniu m Screw [id number] Start: 08-27-2017 Carbofix Titaniu m Screw [id number] Start: 08-27-2017 Clinical Notes 10-10-2021 to 03-15-2024 Geoff Joshua, ARRT - 02/24/2024 1:00 PM Makayla Bettencourt, DO - 02/22/2024 10:30 AM EST Note Date & Type Note Facility 03-15-2024 Note Cardiovascular Medic [facility] SUBJECTIVE Chief Complaint Patient presents with Follow-up 3 month follow up Atrial Fibrillation Bang Sharma is a 73 [...] This was followed up with [facility] with [facility] protocol which was negative for inducible [...] [Carvedilol] Diarrhea Meperi (more content not included)... [facility] 02-24-2024 History of Present illness Narrative Images from the original note were not included. Reason for Appointment: EMG Patient: Bang Sharma : 1950 EMG Computer: [employer] Referring Physician: Dr. Amanda Bettencourt EMG: BLE assistant professor of sociology: Geoff Joshua RT(R) Office Location: [place] Reason for EMG: c/o numbness/tingling in right foot/ankle. Hx of surgery to right lower leg. No hx of DM. Not on blood thinners. Comments: Procedure was explained to the patient & who expressed understanding. Patient appeared to have tolerated the test well despite some discomfort due to the nature of the test. documented in this encounter [facility] 02-22-2024 History of Present illness Narrative Images from the original note were not included. Chief Complaint Patient presents with Numbness Peripheral Neuropathy Subjective Bang Sharma, 73 y.o., male being seen in Neurology consultation at the request of Dr. Schneider. Dr. Contreras is his PCP. HPI Lower extremity numbness - labs @ [facility]; referral received from Dr Reina Schneider, [...] clinic: 3 weeks documented in this encounter [facility] 12-09-2023 Note LOOP IMPLANT PROCEDU RE NOTE DATE OF PROCEDURE: 12/09/23 PERFORMING PHYSICIAN: Dr. Alpesh Jenkins LADLE CAR OPERATOR: JERROD INDICATIONS FOR PROCEDURE: 1. SVT/AF surveillance [...] the sternum on the left using the [employer] tool. The loop recorder was then injected [...] the incision. Alpesh Jenkins MD Cardiac Electrophysiology. [facility] 11-10-2023 Note Cardiovascular Medic [facility] SUBJECTIVE Chief Complaint Patient [...] This was followed up with [facility] with [facility] protocol which was negative for inducible [...] (260 lb) SpO2 (more content not included)... [facility] 11-10-2023 Note Patient here today [...] All other systems reviewed and are negative. [facility] 05-29-2023 Evaluation note Encounter Date Diagnosis Assessment Notes May, Anemia (ICD-10 - D64.9) [email or web address] Other 09-26-2023 NoteHNO ID: [id number] Author: Keri Lopez RN Service: ? Author Type: Registered Nurse Type: Progress Notes Filed: 01/13/2023 4:19 PM Note Text: I served as a scribe during this office visit encounter. [facility] Note[facility]NO ID: [id number] Author: Ranjith Teixeira RT(R) Service: Radiology Author [...] BY: RT Mariel(R) January 13, 2023 2:20 [facility]09-26-2023 NoteHNO ID: [id number] Author: Haresh Pineda MD Service: ? 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 (CPT 24625 - 22) Placement of Prophylactic Carbon Fiber Tibial Nail, Right Tibia (CPT 94489) High Speed [place] and Adjuvant Treatment with 10% H202 (CPT 66761) Neruolysis and Dissection of Deep Peroneal Nerve (CPT 76289) Right Iliac Crest Marrow Aspiration/Catherine ( CPT 18212) Diagnosis: Right Tibial Diaphysis Cartilage Lesion with [...] the date of the service which included gzuj-hp-cadl patient care, completing clinical documentation, obtaining and/or [...] information added by medical student, resident, nurse, MOTORS AND CONTROLS TESTER/DEVAN that I have placed my signature directly below I have verified and either instructed them to document in a scribe function or document appropriately in the chart during the patient visit. Haresh Pineda MD research administrator, [facility] RegionTrans[facility] Solutions Manager, Division of Musculoskeletal Oncology Co-Director of [facility], [facility] Pager: [phone] (more content not included)...[id number] History of Present illness Narrative* Haresh Pineda MD - 11/05/2021 5:19 PM EDT This note was created using CoWareriter. AAOS AMB SF ORT MST FU Advanced: Did this patient have an adverse event since their last encounter?: No * Haresh Pineda MD - 11/05/2021 4:07 PM EDT Orthopaedic Surgery Follow-Up Clinic Note Surgery/Date: 08/27/2017 1. 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 (CPT 47188 - 22) 2. Placement of Prophylactic Carbon Fiber Tibial Nail, Right Tibia (CPT 44104) 3. High Speed [place] and Adjuvant Treatment with 10% H202 (CPT 15182) 4. Neruolysis and Dissection of Deep Peroneal Nerve (CPT 53032) 5. 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 Exam: RLE -- largely unchanged compared [...] the date of the service which included vuju-ev-bcxg patient care, completing clinical documentation, obtaining and/or reviewing separately obtained history, performing a medically appropriate examination, counseling and educating the patient/family/caregiver, ordering medications, tests, or procedures, independently interpreting results (not separately reported) and communicating results to the patient/family/caregiver. Any information added by medical student, resident, nurse, MOTORS AND CONTROLS TESTER/PA-C that I have placed my signature directly below I have verified and either instructed them to document in a scribe function or document appropriately in the chart during the patient visit. Haresh Pineda MD research administrator, [facility] at [facility] Transportation Solutions Manager, Division of Musculoskeletal Oncology Co-Director of [facility]coma [facility], [facility] Pager: [phone] November 05, 2021 5:18 PM [facility]07-[facility]22 History of Present illness Narrative* Esperanza Sandy, [...] 2021 2:49 PM [facility]-23-2022 NotePROCEDURE: XR FOREARM LT 2 VIEWS HISTORY: [...] Electronically authenticated by: TIFFANY GUPTA Date: 2021-10-10 12:28[facility] [place] [facility]* 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, site unspecified documented in this encounter [facility] note* 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, site unspecified documented in this encounter [facility] note* 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, site unspecified documented in this encounter [facility] note* Diagnosis Chronic pain of left ankle- Primary documented in this encounter [facility] noteNo Voxel (Internap) Other Evaluation note* Diagnosis Onset Date Resolution Status Anemia acute Atrial fibrillation acute Hypercholesterolemia acute Hypertension acute Obesity acute REMY (obstructive sleep apnea) acute [facility] Work Phone: Evaluation note* Diagnosis Idiopathic peripheral [...] insertion 2018 Hospitalization History see surgical hx [email or web address] Other Reason for referral (narrative)* Diagnostic Procedure Only (Routine) - Pending Review Specialty Diagnoses / Procedures Referred By Tigre kilpatrick Referred To Contact XR IMAGING Diagnoses Chondrosarcoma (HCC) Procedures XR TIBIA FIBULA 2V AP/LAT RIGHT RADIOLOGIC EXAMINATION TIBIA & FIBULA 2 VIEWS Haresh Pineda MD [address] [place] [address] Xr Imaging Referral ID Status Reason Start Date Expiration Date Visits Requested Visits Authorized [id number] Pending Review Auto-Generat ed Referral 11/05/2022 12/05/2022 1 1 [facility] for referral (narrative)* Diagnostic Procedure Only (Routine) - Pending Review Specialty Diagnoses / Procedures Referred By Tigre kilpatrick Referred To Contact XR IMAGING Diagnoses Chondrosarcoma (HCC) Procedures XR TIBIA FIBULA 2V AP/LAT RIGHT RADIOLOGIC EXAMINATION TIBIA & FIBULA 2 VIEWS Haresh Pineda MD [address] [place] [address] Xr Imaging Referral ID Status Reason Start Date Expiration Date Visits Requested Visits Authorized [id number] Pending Review Auto-Generat ed Referral 11/17/2022 12/17/2023 1 1 [facility] Diagnostic Procedure Only (Routine) - Authorized Specialty Diagnoses / Procedures Referred By Contac t Referred To Contact XR IMAGING Diagnoses Chronic pain of left ankle Procedures XR ANKLE GENERAL 3V AP/LAT/OBL LEFT RADEX ANKLE COMPLETE MINIMUM 3 VIEWS Valeri Quintero PA-C [address] [place] [address] Xr Imaging [place] [address] Referral ID Status Reason Start Date Expiration Date Visits Requested Visits Authorized [id number] Authorized Auto-Generat ed Referral 01/12/2023 02/11/2024 1 1 [facility] Summary Purpose Family History Relationship Condition Age at Onset Recorded Date/T kayley father Malignant neoplasm Unknown Unknown mother Hypertension Unknown Diabetes mellitus Unknown Advance Directives Documents on File Type Date Recorded Patient Staff 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 Expl anation Advance Directive(s) Advance Directive(s) 09/02/2018 11:24 AM Advance Directive(s) 08/26/2018 2:02 PM Advance Directive(s) 08/24/2017 2:28 PM Documents on File Type Date Recorded Patient Staff 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 Expl 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 Advance Directive(s) Advance Directive(s) 09/02/2018 11:24 AM Advance Directive(s) 08/26/2018 2:02 PM Advance Directive(s) 08/24/2017 2:28 PM Documents on File Type Date Recorded Patient Staff 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 Expl anation Advance Directive(s) 08/24/2017 2:28 PM [...] and content) DATE CREATED AUTHOR 11/10/2017 [facility] DATE CREATED AUTHOR AUTHOR'S ORGANIZ ATION 06/26/2022 [facility] pital DATE CREATED AUTHOR AUTHOR'S ORGANIZ ATION 01/21/2023 [facility] DATE CREATED AUTHOR AUTHOR'S ORGANIZ ATION 01/21/2023 [facility] DATE CREATED AUTHOR AUTHOR'S ORGANIZ ATION 02/26/2024 [facility] dical [facility] EPIC DATE CREATED AUTHOR AUTHOR'S ORGANIZ ATION 03/18/2024 [facility] Source Comments (unrecognize d section and content) In the event this informatio n is protected by the Federal Confidentiality of Alcohol and Drug Abuse Patient Records regulations: The Federal rules restrict any use of the information to criminally investigate or prosecute any alcohol or drug abuse patient.[facility] Health[facility] the event this information is protected by the Federal Confidentiality of Alcohol and Drug Abuse Patient Records regulations: The Federal rules restrict any use of the information to criminally investigate or prosecute any alcohol or drug abuse patient.[facility] HealthIn the event this information is protected by the Federal Confidentiality of Alcohol and Drug Abuse Patient Records regulations: The Federal rules restrict any use of the information to criminally investigate or prosecute any alcohol or drug abuse patient.[facility] HealthIn the event this information is protected by the Federal Confidentiality of Alcohol and Drug Abuse Patient Records regulations: The Federal rules restrict any use of the information to criminally investigate or prosecute any alcohol or drug abuse patient.[facility] Reason for Visit (unrecogniz ed section and content) Reason Comments Follow Up Reason Comments Radio Gen A21 Reason Comments Numbness Peripheral Neuropathy Specialty Diagnoses / Procedures Referred By Contac t Referred To Contact Neurology Diagnoses Anesthesia of skin Procedures ME OFFICE/OUTPATIENT NEW LOW MDM 30 MINUTES Reina Schneider MD [address] [place] [address] [place] [address] Phone: tel: fax: Emmett Pineda, [address] [place] [address] Phone: tel: fax: Referral ID Status Reason Start Date Expiration Date V isits Requested Visits Authorized [id number] Closed Consult and Treat 02/11/2024 08/09/2024 1 1 Care Teams (unrecognized sec tion and content) 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 Wash 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 Relationship Specialty Start Date End Date Alvin Contreras DO [address] [place] [address] PCP - General Internal Medicine 06/19/17 Wet Wash Assembler Relationship Specialty Start Date End Date Alvin Contreras DO [address] [place] [address] PCP - General Internal Medicine 06/19/17 Wet Wash Assembler Relationship Specialty Start Date End Date Alvin Contreras DO [address] [place], [place] [id number] PCP - General Internal Medicine 06/19/17 Team [...] December 03, 2023 End: December 03, 2023 Wet Wash Assembler Relationship Specialty Start Date End Date Alvin Contreras MD [address] [place] [address] PCP - General Internal Medicine 03/30/23 Wet Wash Assembler Relationship Specialty Start Date End Date Alvin Contreras MD [address] [place] [address] PCP - General Internal Medicine 03/30/23 Bhavik Justin, PhD [address] [phone] Referring Physician Neuropsychology 02/22/24 Wet Wash Assembler Relationship Specialty Start Date End Date Alvin Contreras MD [address] [place] [address] PCP - General Internal Medicine 03/30/23 Bhavik Justin, PhD [address] [address] Referring Physician Neuropsychology 02/22/24 Wet Wash Assembler Relationship Specialty Start Date End Date Alvin Contreras MD [address] [place] [address] PCP - General Internal Medicine 03/30/23 Bhavik Justin, PhD [address] [address] [place] [address] Referring Physician Neuropsychology 02/22/24 Amanda Bettencourt DO [address] [place] [address] Referring Physician Neurology 04/05/24 Goals (unrecognized section and content) Goals may [...] BE BASED ON THE PRIMARY CLINICAL RECORDS. [employer] provides no warranty or guarantee of the accuracy or completeness of information in this document.
[2024-04-07 11:28] LABS: Thyroid Stimulating Hormone 0.963 uIU/mL (0.358-3.740)
[2024-04-08 08:10] LABS: Vitamin B12 748 pg/mL (232-1245)
[2024-04-08 15:07] LABS: Albumin 3.8 g/dL (2.9-4.4); Alpha-1-Globulin 0.2 g/dL (0.0-0.4); Alpha-2-Globulin 0.7 g/dL (0.4-1.0); Gamma Globulin 0.9 g/dL (0.4-1.8); Protein, Total 6.5 g/dL (6.0-8.5)
== END 2024-04-07 10:11 | disposition home or self-care (01) ==
LOC: LAB 10:12
PROVIDERS: PCP Internal Medicine; Visit Provider Psychiatry & Neurology Neurology
DX: G60.9 Hereditary and idiopathic neuropathy, unspecified (principal)
CPT/HCPCS: 36415; 82607; 82746; 84155; 84165; 84443

== ENCOUNTER 2024-04-07 10:24 | Outpatient (OUT) | payer MEDICARE, OTHER, SELFPAY ==
--- OUTSIDE RECORDS SUMMARY | 2024-04-07 10:34 | XMS_ITS | CCD ---
Author Organization [facility] CliniSyor Care Team Providers Care Geophysical Manager Name Role Phone PHYSICIAN, DEFAULT Unavailable Unavailable [...] Primary Care Provider Nhan Marie, Bhavik Unavailable [phone] JR. PHELPS GEORGE C Attending Unavaila AMANDA [...] (2 sources) meperidine Drug Allergy 4 [facility] (6 sources) Penicillins; Translations: [PENICILLINS] Drug allergy (disorder) 2 AOF, Unknown Reaction [facility] (4 sources) Penicillins Drug Allergy 4 Hives [facility] (6 sources) Insects Extract; Translations: [INSECTS EXTRACT] Drug Allergy 1 Other: See Comments [facility] (3 sources) atorvastatin Drug Allergy 4 Unknown, Unknown Reaction [facility] (2 sources) Penicillin Drug Allergy Unknown TMS [facility] Other (2 sources) Substance with penicillin structure and antibacterial mechanism of action (substance) Drug allergy Unknown TMS [facility] Other (5 sources) Meperidine; Translations: [MEPERIDINE] Drug Allergy 8 [facility] (4 sources) Penicillins Drug Allergy 4 Hives, Rash, Other [facility] (1 source) carvedilol; Translations: [CARVEDILOL] Drug Allergy 3 [facility] (1 source) Metoprolol; Translations: [METOPROLOL] Drug Allergy 3 [facility] (1 source) nebivolol; Translations: [NEBIVOLOL] Drug Allergy 3 [facility] Medications Current Medications Medication [...] Refill. Active Oral daily *Pick strength-form from [employer] for eRX* Nov, Active Start: 08-02-2018 take [...] Oral two times daily *Pick strength-form from [employer] for eRX* Mar, Active Start: 10-08-2021 flecainide [...] Active -Hx Entry Oral *Pick strength-form from [employer] for eRX* Mar, Active magnesium citrate 58.2 [...] 06-30-2019 Episodic Other aftercare (1 source) Other retirement (current) drug therapy; Translations: [OTH CORRECTION CURRENT DRUG THERAPY] Onset: 02-12-2022 Episodic Other [...] Range Facility Office Visiton 03-15-2024 Follow-up visit [id number] Lucinda Sharma 1950 M Date Provider Department Center 03/15/2024 DREA STOVALL CARD [facility] Family History Problem Relation Age of Onset Coronary artery disease Other Hypertension Other Family Status - Relation Status Age at Other Level of Service:73119 DC OFFICE/OUTPATIENT ESTABLISHED LOW MDM 20 MIN Reason for Visit and Comments: Follow-up [690088] - 3 month follow up Atrial Fibrillation [80] Normal [facility] EMG 2 Extremitieson 02-24-20 EMG/NCS BLE Severe sensory-motor polyneuropathy. [facility] NVC 9-10 Nerveson 02-24-2024 EMG/NCS BLE Severe [facility]23 [facility] Electrophysiology Consult Note Reason for visit: [...] This was followed up with [facility] with [facility] protocol which was negative for inducible arrhythmias [...] CVL report IMPRESSION: Successful direct-current cardioversion with episcopalian of sinus rhythm from atrial fibrillation with no immediate complication. 03/22/12: EPS EP study by Dr. Carmen Flores on 03/22/2012 for evaluation of wide-complex tachycardia in the setting of normal ejection fraction revealed normal HV interval but no evidence of any AH jump suggestive of dual AV node physiology and no tachycardia was induced. This was followed up with [facility] with [facility] protocol which was negative for inducible arrhythmias [...] CARDIAC CATHETERIZATION (more content not included)... Normal [facility] NURSNOTEon 12-09-2023 NURSNOTE RN educated pt on d/ c instructions. RN encouraged pt to voice any questions or concerns. Pt verbalizes no questions or concerns at this time. Pt walked off of unit with all of belongings. Normal [facility] 36on 12-02-2023 36 Regarding echo resul t from 11/24/2023: NILA Avitia MA; Alpesh Jenkins MD Severe biatrial enlargement LV systolic function low end of normal 50-55% RV normal size and function, normal rt sided pressures- no fluid overload LM on patient's VM. Normal [facility] Basophils Auto (Bld) [#/Vol] on 12-01-2023 Basophils (Bld) [#/Vol] 0.0 10 3/uL 0.0-0.1 [facility] Basophils/100 WBC Auto (Bld) on 12-01-2023 Basophils/100 WBC (Bld) 0.5 % 0.2-2.0 [facility] Eosinophils/100 WBC Auto (Bl d)on 12-01-2023 Eosinophils/100 WBC (Bld) 1.1 % 0.9-7.0 [facility] Erythrocyte distribution wid th Auto (RBC) [Ratio]on 12-01-2023 Erythrocyte distribution width (RBC) [Ratio] 12.8 % 11.0-15.0 [facility] Hematocrit Auto (Bld) [Volum e fraction]on 12-01-2023 Hematocrit (Bld) [Volume fraction] 40.8 % Low 42.0-54.0 [facility] Hemoglobin [Mass/volume] in Bloodon 12-01-2023 Hemoglobin (Bld) [Mass/Vol] 13.6 g/dL Low 14.0-18.0 [facility] Laboratory - Hematology and Cell countson 12-01-2023 Immature granulocytes/100 WBC (Bld) 0.3 % 0.0-0.5 [facility] Leukocytes [#/volume] correc evelyne for nucleated erythrocytes in Blood by Automated counon 12-01-2023 WBC corrected for nucl RBC Auto (Bld) [#/Vol] 6.4 10 3/uL 4.0-11.0 [facility] Lymphocytes Auto (Bld) [#/Vo l]on 12-01-2023 Lymphocytes (Bld) [#/Vol] 1.3 10 3/uL 1.2-3.8 [facility] Lymphocytes/100 WBC Auto (Bl d)on 12-01-2023 Lymphocytes/100 WBC (Bld) 20.7 % 20.5-60.0 [facility] MCH Auto (RBC) [Entitic mass ]on 12-01-2023 MCH (RBC) [Entitic mass] 31.7 pg 25.9-34.0 [facility] MCHC Auto (RBC) [Mass/Vol]on 12-01-2023 MCHC (RBC) [Mass/Vol] 33.3 g/dL 29.9-35.2 [facility] MCV Auto (RBC) [Entitic vol] on 12-01-2023 MCV (RBC) [Entitic vol] 95.1 fL High 80.0-94.0 [facility] Monocytes Auto (Bld) [#/Vol] on 12-01-2023 Monocytes (Bld) [#/Vol] 0.8 10 3/uL 0.3-0.8 [facility] Monocytes/100 WBC Auto (Bld) on 12-01-2023 Monocytes/100 WBC (Bld) 11.8 % 1.7-12.0 [facility] Neutrophils Auto (Bld) [#/Vo l]on 12-01-2023 Neutrophils (Bld) [#/Vol] 4.2 10 3/uL 1.4-6.5 [facility] Neutrophils/100 WBC Auto (Bl d)on 12-01-2023 Neutrophils/100 WBC (Bld) 65.6 % 43.0-75.0 [facility] No Panel Informationon 11-30 Eosinophils # (Auto) 0.1 10 3/uL 0.0-0.7 [facility] Immature Granulocyte # (Auto) 0.02 10 3/uL 0.00-0.03 [facility] Platelet mean volume Auto (B ld) [Entitic vol]on 12-01-2023 Platelet mean volume (Bld) [Entitic vol] 8.9 fL Low 9.5-13.5 [facility] Platelets Auto (Bld) [#/Vol] on 12-01-2023 Platelets (Bld) [#/Vol] 265 10 3/uL 150-450 [facility] RBC Auto (Bld) [#/Vol]on RBC (Bld) [#/Vol] 4.29 10 6/uL Low 4.70-6.10 [facility] Office Visiton 11-10-2023 Follow-up visit [id number] Lucinda Sharma 1950 Date Provider Department Center 11/10/2023 DREA STOVALL ARAM Panda Family History Problem Relation Age of Onset Coronary artery disease Other Hypertension Other Family Status - Relation Status Age at Other Level of Service:87680 DC OFFICE/OUTPATIENT ESTABLISHED MOD MDM 30 MIN Reason for Visit and Comments: Atrial Fibrillation [80] Normal [facility] Orders Onlyon 05-29-2023 Orders Only [id number] Lucinda Sharma 1950 Provider Department Center 05/29/2023 J CARLOS VICTOR CARD [facility] Family History Problem Relation Age of Onset Coronary artery disease Other Hypertension Other Family Status - Relation Status Age at Other Normal [facility] CNOVon 01-13-2023 CNOV Office Visit ([facility] ) BANG SHARMA ([id number]) 1950 Date Time Provider Department 01/13/23 2:30 PM HARESH PINEDA [facility] During your visit today, we recorded the following information about you: Haresh Pineda MD 01/13/2023 4:19 PM Signed Orthopaedic Surgery Follow-Up Clinic Note Surgery/Date: 08/27/2017 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 (CPT 35443 - 22) Placement of Prophylactic Carbon Fiber Tibial Nail, Right Tibia (CPT 14637) High Speed Ehsan and Adjuvant Treatment with 10% H202 (CPT 76891) Neruolysis and Dissection of Deep Peroneal Nerve (CPT 66914) Right Iliac Crest Marrow Aspiration/[place] ( CPT 35790) Diagnosis: Right Tibial Diaphysis Cartilage Lesion with [...] the date of the service which included [id number] patient care, completing clinical documentation, obtaining and/or [...] information added by medical student, resident, nurse, MANUSCRIPT EDITOR/PA-C that I have placed my signature directly below I have verified and either instructed them to document in a scribe function or document appropriately in the chart during the patient visit. Haresh Beavers (more content not included)... Normal [facility] XR ANKLE 3V AP/LAT/OBL LTon 01-13-2023 XR ANKLE 3V AP/LAT/OBL LT * * *Final Report* * * DATE OF EXAM: Jan 13 2023 2:19PM AOX 5298 - XR ANKLE 3V AP/LAT/OBL LT / PROCEDURE REASON: multiple diagnoses * * * * Physician Interpretation * * * * HISTORY: Chondrosarcoma (HCC) TECHNOLOGIST PROVIDED HISTORY (if applicable): follow up right lower leg (accession [id number]), left ankle pain and popping sensation (accession [id number]) TECHNIQUE: XR TIBIA FIBULA 2V AP/LAT RT, [...] SIGNIFICANT CHANGE. NO RADIOGRAPHIC SIGNS OF RECURRENCE. Home Health Clinical Liaison: BARBARA Transcribe Date/Time: Jan 13 2023 4:43P Dictated by : JULISA WEAVER MD This examination was interpreted and the report reviewed and electronically signed by: JULISA WEAVER MD on Jan 13 2023 4:53PM EST [id number] Normal [facility] XR CHEST 2V FRONTAL/LATon [...] tissues: Spine degenerative changes IMPRESSION: See result Home Health Clinical Liaison: BARBARA Transcribe Date/Time: Jan 15 2023 3:13P Dictated by : RIKKI PEDERSEN MD This examination was interpreted and the report reviewed and electronically signed by: RIKKI PEDERSEN MD on Jan 15 2023 3:14PM EST [id number] Normal [facility] XR TIBIA FIBULA 2V [...] applicable): follow up right lower leg (accession [id number]), left ankle pain and popping sensation (accession [id number]) TECHNIQUE: XR TIBIA FIBULA 2V AP/LAT RT, [...] SIGNIFICANT CHANGE. NO RADIOGRAPHIC SIGNS OF RECURRENCE. Home Health Clinical Liaison: BARBARA Transcribe Date/Time: Jan 13 2023 4:43P Dictated by : JULISA WEAVER MD This examination was interpreted and the report reviewed and electronically signed by: JULISA WEAVER MD on Jan 13 2023 4:53PM EST [id number] Normal [facility] FLECAINEon 06-24-2022 FLECAINIDE 0.39 ug/ml Normal 0.20 - 1.00 [facility] Comment on above: Result Comment: Flec ainide reported as flecainide acetate. The reference range also is defined as flecaininde acetate. This test was developed and its performance characteristics determined by [employer]. It has not been cleared or approved by the Food and Drug Administration. Performed By: #### T SH, BMP, LIPID, ALT #### [facility] [address] [place] [address] Dr. Fidel Paige CBC AUTO DIFFon 06-09-2022 BASO # 0.0 103/ul Normal 0.0-0.1 [facility] Comment on above: Performed By: #### C BC #### [facility] [address] [place] [address] Dr. Fidel Paige Basophils/100 WBC (Bld) 0.6 % Normal 0.2-2.0 [facility] Comment on above: Performed By: #### C BC #### [facility] [address] [place] [address] Dr. Fidel Paige EO # 0.1 103/ul Normal 0.0-0.7 [facility] Comment on above: Performed By: #### C BC #### [facility] [address] [place] [address] Dr. Fidel Paige Eosinophils/100 WBC (Bld) 2.8 % Normal 0.9-7.0 [facility] Comment on above: Performed By: #### C BC #### [facility] [address] [place] [address] Dr. Fidel Paige Erythrocyte distribution width (RBC) [Ratio] 12.8 % Normal 11.0-15.0 [facility] Comment on above: Performed By: #### C BC #### [facility] [address] [place] [address] Dr. Fidel Paige Hematocrit (Bld) [Volume fraction] 41.9 % Critically low 42.0-54.0 [facility] Comment on above: Performed By: #### C BC #### [facility] [address] [place] [address] Dr. Fidel Paige Hemoglobin (Bld) [Mass/Vol] 14.1 g/dL Normal 14.0-18.0 [facility] Comment on above: Performed By: #### C BC #### [facility] [address] [place] [address] Dr. Fidel Paige IG # 0.01 10e3/ul Normal 0.00-0.03 [facility] Comment on above: Performed By: #### C BC #### [facility] [address] [place] [address] Dr. Fidel Paige IG % 0.2 % Normal 0.0-0.5 [facility] Comment on above: Performed By: #### C BC #### [facility] [address] [place] [address] Dr. Fidel Paige LYMPH # 1.4 103/ul Normal 1.2-3.8 [facility] Comment on above: Performed By: #### C BC #### [facility] [address] [place] [address] Dr. Fidel Paige Lymphocytes/100 WBC (Bld) 29.2 % Normal 20.5-60.0 [facility] Comment on above: Performed By: #### C BC #### [facility] [address] [place] [address] Dr. Fidel Paige MANUAL DIFF REQ NO Normal [facility] Comment on above: Performed By: #### C BC #### [facility] [address] [place] [address] Dr. Fidel Paige MCH (RBC) [Entitic mass] 31.3 pg Normal 25.9-34.0 [facility] Comment on above: Performed By: #### C BC #### [facility] [address] [place] [address] Dr. Fidel Paige MCHC (RBC) [Mass/Vol] 33.7 g/dL Normal 29.9-35.2 [facility] Comment on above: Performed By: #### C BC #### [facility] [address] [place] [address] Dr. Fidel Paige MCV (RBC) [Entitic vol] 92.9 fL Normal 80.0-94.0 [facility] Comment on above: Performed By: #### C BC #### [facility] [address] [place] [address] Dr. Fidel Paige MONO # 0.7 103/ul Normal 0.3-0.8 [facility] Comment on above: Performed By: #### C BC #### [facility] [address] [place] [address] Dr. Fidel Paige Monocytes/100 WBC (Bld) 13.4 % Critically high 1.7-12.0 [facility] Comment on above: Performed By: #### C BC #### [facility] [address] [place] [address] Dr. Fidel Paige NEUT # 2.7 103/ul Normal 1.4-6.5 [facility] Comment on above: Performed By: #### C BC #### [facility] [address] [place] [address] Dr. Fidel Paige Neutrophils/100 WBC (Bld) 53.8 % Normal 43.0-75.0 [facility] Comment on above: Performed By: #### C BC #### [facility] [address] [place] [address] Dr. Fidel Paige Platelet mean volume (Bld) [Entitic vol] 8.7 fL Critically low 9.5-13.5 [facility] Comment on above: Performed By: #### C BC #### [facility] [address] [place] [address] Dr. Fidel Paige PLT 278 103/ul Normal 150-450 [facility] Comment on above: Performed By: #### C BC #### [facility] [address] [place] [address] Dr. Fidel Paige RBC 4.51 106/ul Critically low 4.70-6.10 [facility] Comment on above: Performed By: #### C BC #### [facility] [address] [place] [address] Dr. Fidel Paige WBC 4.9 103/ul Normal 4.0-11.0 [facility] Comment on above: Performed By: #### C BC #### [facility] [address] [place] [address] Dr. Fidel Paige MAGNESIUMon 06-09-2022 Magnesium [Mass/Vol] 2.0 mg/dL Normal 1.8-2.4 [facility] Comment on above: Performed By: #### T SH, MG, BMP #### [facility] [address] [place] [address] Dr. Fidel Paige PROF CHEM 8 (BAS METB)on Anion gap [Moles/Vol] 8.2 mmol/L Normal [facility] Comment on above: Performed By: #### T SH, MG, BMP #### [facility] [address] [place] [address] Dr. Fidel Paige Calcium [Mass/Vol] 10.2 mg/dL Critically high 8.5-10.1 [facility] Comment on above: Performed By: #### T SH, MG, BMP #### [facility] [address] [place] [address] Dr. Fidel Paige Chloride [Moles/Vol] 105 mmol/L Normal 98-107 [facility] Comment on above: Performed By: #### T SH, MG, BMP #### [facility] [address] [place] [address] Dr. Fidel Paige CO2 [Moles/Vol] 29.6 mmol/L Normal 21.0-32.0 [facility] Comment on above: Performed By: #### T SH, MG, BMP #### [facility] [address] [place] [address] Dr. Fidel Paige Creatinine [Mass/Vol] 0.81 mg/dL Normal 0.70-1.30 [facility] Comment on above: Performed By: #### T SH, MG, BMP #### [facility] [address] [address] [address] Fidel Paige EGFR-AF ENGLISH >60 Normal >=60 [facility] Comment on above: Performed By: #### T SH, MG, BMP #### [facility] [address] [address] [address] Fidel Paige EGFR-NON AF ENGLISH >60 Normal >=60 [facility] Comment on above: Performed By: #### T SH, MG, BMP #### [facility] [address] [address] [address] Fidel Paige Glucose [Mass/Vol] 100 mg/dL Normal 74-106 [facility] Comment on above: Performed By: #### T SH, MG, BMP #### [facility] [address] [place] [address] Dr. Fidel Paige Potassium [Moles/Vol] 3.8 mmol/L Normal 3.5-5.1 [facility] Comment on above: Performed By: #### T BEATRIS, MG, BMP #### [facility] [address] [address] [address] Fidel Paige Sodium [Moles/Vol] 139 mmol/L Normal 136-145 [facility] Comment on above: Performed By: #### T SH, MG, BMP #### [facility] [address] [place] [address] Dr. Fidel Paige Urea nitrogen [Mass/Vol] 12.0 mg/dL Normal 7.0-18.0 [facility] Comment on above: Performed By: #### T SH, MG, BMP #### [facility] [address] [address] [address] Fidel Paige Urea nitrogen/Creatinin e [Mass ratio] 14.8 mg/mg Normal [facility] Comment on above: Performed By: #### T SH, MG, BMP #### [facility] [address] [address] [address] Fidel Paige TSHon 06-09-2022 TSH 0.891 uIU/mL Normal 0.358-3.740 [facility] Comment on above: Performed By: #### T SH, MG, BMP #### [facility] [address] [place] [address] Dr. Fidel Paige CBC AUTO DIFFon 02-07-2022 BASO # 0.0 103/ul Normal 0.0-0.1 [facility] Comment on above: Performed By: #### T SH, BMP, LIPID, ALT #### [facility] [address] [place] [address] Dr. Fidel Paige Basophils/100 WBC (Bld) 0.3 % Normal 0.2-2.0 [facility] Comment on above: Performed By: #### T SH, BMP, LIPID, ALT #### [facility] [address] [place] [address] Dr. Fidel Paige EO # 0.1 103/ul Normal 0.0-0.7 [facility] Comment on above: Performed By: #### T SH, BMP, LIPID, ALT #### [facility] [address] [place] [address] Dr. Fidel Paige Eosinophils/100 WBC (Bld) 2.1 % Normal 0.9-7.0 [facility] Comment on above: Performed By: #### T SH, BMP, LIPID, ALT #### [facility] [address] [place] [address] Dr. Fidel Paige Erythrocyte distribution width (RBC) [Ratio] 13.1 % Normal 11.0-15.0 [facility] Comment on above: Performed By: #### T SH, BMP, LIPID, ALT #### [facility] [address] [place] [address] Dr. Fidel Paige Hematocrit (Bld) [Volume fraction] 45.2 % Normal 42.0-54.0 [facility] Comment on above: Performed By: #### T SH, BMP, LIPID, ALT #### [facility] [address] [place] [address] Dr. Fidel Paige Hemoglobin (Bld) [Mass/Vol] 14.8 g/dL Normal 14.0-18.0 [facility] Comment on above: Performed By: #### T SH, BMP, LIPID, ALT #### [facility] [address] [address] [address] Fidel Paige IG # 0.02 10e3/ul Normal 0.00-0.03 [facility] Comment on above: Performed By: #### T SH, BMP, LIPID, ALT #### [facility] [address] [address] [address] Fidel Paige IG % 0.3 % Normal 0.0-0.5 [facility] Comment on above: Performed By: #### T SH, BMP, LIPID, ALT #### [facility] [address] [place] [address] Dr. Fidel Paige LYMPH # 1.4 103/ul Normal 1.2-3.8 [facility] Comment on above: Performed By: #### T SH, BMP, LIPID, ALT #### [facility] [address] [place] [address] Dr. Fidel Paige Lymphocytes/100 WBC (Bld) 23.2 % Normal 20.5-60.0 [facility] Comment on above: Performed By: #### T SH, BMP, LIPID, ALT #### [facility] [address] [address] [address] Fidel Paige MANUAL DIFF REQ NO Normal [facility] Comment on above: Performed By: #### T SH, BMP, LIPID, ALT #### [facility] [address] [address] [address] Fidel Paige MCH (RBC) [Entitic mass] 31.6 pg Normal 25.9-34.0 [facility] Comment on above: Performed By: #### T SH, BMP, LIPID, ALT #### [facility] [address] [place] [address] Dr. Fidel Paige MCHC (RBC) [Mass/Vol] 32.7 g/dL Normal 29.9-35.2 [facility] Comment on above: Performed By: #### T SH, BMP, LIPID, ALT #### [facility] [address] [address] [address] Fidel Paige MCV (RBC) [Entitic vol] 96.6 fL Critically high 80.0-94.0 [facility] Comment on above: Performed By: #### T SH, BMP, LIPID, ALT #### [facility] [address] [place] [address] Dr. Fidel Paige MONO # 0.7 103/ul Normal 0.3-0.8 [facility] Comment on above: Performed By: #### T SH, BMP, LIPID, ALT #### [facility] [address] [place] [address] Dr. Fidel Paige Monocytes/100 WBC (Bld) 11.7 % Normal 1.7-12.0 [facility] Comment on above: Performed By: #### T SH, BMP, LIPID, ALT #### [facility] [address] [place] [address] Dr. Fidel Paige NEUT # 3.6 103/ul Normal 1.4-6.5 [facility] Comment on above: Performed By: #### T SH, BMP, LIPID, ALT #### [facility] [address] [place] [address] Dr. Fidel Paige Neutrophils/100 WBC (Bld) 62.4 % Normal 43.0-75.0 [facility] Comment on above: Performed By: #### T SH, BMP, LIPID, ALT #### [facility] [address] [place] [address] Dr. Fidel Paige Platelet mean volume (Bld) [Entitic vol] 8.8 fL Critically low 9.5-13.5 [facility] Comment on above: Performed By: #### T SH, BMP, LIPID, ALT #### [facility] [address] [place] [address] Dr. Fidel Paige PLT 283 103/ul Normal 150-450 [facility] Comment on above: Performed By: #### T SH, BMP, LIPID, ALT #### [facility] [address] [place] [address] Dr. Fidel Paige RBC 4.68 106/ul Critically low 4.70-6.10 [facility] Comment on above: Performed By: #### T SH, BMP, LIPID, ALT #### [facility] [address] [address] [address] Fidel Paige WBC 5.8 103/ul Normal 4.0-11.0 [facility] Comment on above: Performed By: #### T SH, BMP, LIPID, ALT #### [facility] [address] [address] [address] Fidel Paige LIPID PROFILEon 02-07-2022 CHOL-HDL RATIO NORM SEE BELOW Normal [facility] Comment on above: Result Comment: 3.3 - 4.4 LOW RISK 4.4 - 7.1 AVERAGE RISK 7.1 - 11.0 MODERATE RISK >11.0 HIGH RISK Performed By: #### T SH, BMP, LIPID, ALT #### [facility] [address] [place] [address] Dr. Fidel Paige Cholesterol [Mass/Vol] 191 mg/dL Normal <=200 [facility] Comment on above: Performed By: #### T SH, BMP, LIPID, ALT #### [facility] [address] [place] [address] Dr. Fidel Paige Cholesterol in HDL [Mass/Vol] 42 mg/dL Normal 40-60 [facility] Comment on above: Performed By: #### T SH, BMP, LIPID, ALT #### [facility] [address] [place] [address] Dr. Fidel Paige Cholesterol in LDL [Mass/Vol] 118.0 mg/dL Normal [facility] Comment on above: Performed By: #### T SH, BMP, LIPID, ALT #### [facility] [address] [place] [address] Dr. Fidel Paige Cholesterol.total/ Cholesterol in HDL [Mass ratio] 4.5 {ratio} Normal [facility] Comment on above: Performed By: #### T SH, BMP, LIPID, ALT #### [facility] [address] [place] [address] Dr. Fidel Paige HDL NORMAL > or = 60 mg/dl - LO W CARDIOVASCULAR RISK <40 mg/dl - HIGH CARDIOVASCULAR RISK Normal [facility] Comment on above: Performed By: #### T SH, BMP, LIPID, ALT #### [facility] [address] [address] [address] Fidel Paige LDL CALC NORMAL SEE BELOW Normal The [facility] Comment on above: Result Comment: <100 mg/dl OPTIMAL 100 - 129 mg/dl NEAR OR ABOVE OPTIMAL 130 - 159 mg/dl BORDERLINE HIGH 160 - 189 mg/dl HIGH >190 mg/dl VERY HIGH Performed By: #### T SH, BMP, LIPID, ALT #### [facility] [address] [address] [address] Fidel Paige Triglyceride [Mass/Vol] 155 mg/dL Critically high <=150 [facility] Comment on above: Performed By: #### T SH, BMP, LIPID, ALT #### [facility] [address] [address] [address] Fidel Paige VLDL CALC 31.0 mg/dL Normal [facility] Comment on above: Performed By: #### T SH, BMP, LIPID, ALT #### [facility] [address] [address] [address] Fidel Paige PROF CHEM 8 (BAS METB)on Anion gap [Moles/Vol] 11.0 mmol/L Normal [facility] Comment on above: Performed By: #### T SH, BMP, LIPID, ALT #### [facility] [address] [address] [address] Fidel Piage Calcium [Mass/Vol] 10.1 mg/dL Normal 8.5-10.1 [facility] Comment on above: Performed By: #### T SH, BMP, LIPID, ALT #### [facility] [address] [address] [address] Fidel Paige Chloride [Moles/Vol] 105 mmol/L Normal 98-107 [facility] Comment on above: Performed By: #### T SH, BMP, LIPID, ALT #### [facility] [address] [address] [address] Fidel Paige CO2 [Moles/Vol] 29.0 mmol/L Normal 21.0-32.0 [facility] Comment on above: Performed By: #### T SH, BMP, LIPID, ALT #### [facility] [address] [address] [address] Fidel Paige Creatinine [Mass/Vol] 0.85 mg/dL Normal 0.70-1.30 [facility] Comment on above: Performed By: #### T SH, BMP, LIPID, ALT #### [facility] [address] [address] [address] Fidel Paige EGFR-AF ENGLISH >60 Normal >=60 [facility] Comment on above: Performed By: #### T SH, BMP, LIPID, ALT #### [facility] [address] [address] [address] Fidel Paige EGFR-NON AF ENGLISH >60 Normal >=60 [facility] Comment on above: Performed By: #### T SH, BMP, LIPID, ALT #### [facility] [address] [place] [address] Dr. Fidel Paige Glucose [Mass/Vol] 101 mg/dL Normal 74-106 [facility] Comment on above: Performed By: #### T SH, BMP, LIPID, ALT #### [facility] [address] [address] [address] Fidel Paige Potassium [Moles/Vol] 4.0 mmol/L Normal 3.5-5.1 [facility] Comment on above: Performed By: #### T SH, BMP, LIPID, ALT #### [facility] [address] [address] [address] Fidel Paige Sodium [Moles/Vol] 141 mmol/L Normal 136-145 [facility] Comment on above: Performed By: #### T SH, BMP, LIPID, ALT #### [facility] [address] [address] [address] Fidel Paige Urea nitrogen [Mass/Vol] 13.0 mg/dL Normal 7.0-18.0 [facility] Comment on above: Performed By: #### T SH, BMP, LIPID, ALT #### [facility] [address] [address] [address] Fidel Paige Urea nitrogen/Creatinin e [Mass ratio] 15.3 mg/mg Normal [facility] Comment on above: Performed By: #### T SH, BMP, LIPID, ALT #### [facility] [address] [address] [address] Fidel Paige SGPTon 02-07-2022 ALT [Catalytic activity/Vol] 26 U/L Normal 16-63 [facility] Comment on above: Performed By: #### T SH, BMP, LIPID, ALT #### [facility] [address] [address] [address] Fidel Paige TSHon 02-07-2022 TSH 0.856 uIU/mL Normal 0.358-3.740 [facility] Comment on above: Performed By: #### T SH, BMP, LIPID, ALT #### [facility] [address] [address] [address] Fidel Paige XR CHEST 2V FRONTAL/LATon [facility] US VENOUS DOPPLER L Cristian US [...] by: TIFFANY GUPTA Date: 2021-10-10 12:51 Normal [facility] Vital Signs Date Time Vital Sign Value Performing Clinician Facility 02-22-2024 10:41050 Body height 189.2 cm Amanda [email or web address] DO Work Phone: [facility] 02-22-2024 10:41050 Body mass index (BMI) [Ratio] 32.18 kg/m2 Amanda Rut DO Work Phone: [facility] 02-22-2024 10:41050 Body weight 115.21 kg Amanda [employer] Work Phone: [facility] 02-22-2024 10:41-0500 Diastolic blood pressure 86 mm[Hg] Amanda Rut DO Work Phone: [facility] 02-22-2024 10:41-0500 Heart rate 88 /min Amanda Rut DO Work Phone: [facility] 02-22-2024 10:41-0500 SaO2% (BldA) [Mass fraction] 99 % Amanda Rut DO Work Phone: [facility] 02-22-2024 10:41-0500 Systolic blood pressure 142 mm[Hg] Amanda Rut DO Work Phone: [facility] 12-03-2023 11:04-0400 Body height 185.42 cm [facility] 12-03-2023 11:04-0400 Body mass index (BMI) [Ratio] 33.8 kg/m2 [facility] 12-03-2023 11:04-0400 Body weight 116.28 kg [facility] 12-03-2023 11:04-0400 Diastolic blood pressure 86 mm[Hg] [facility] 12-03-2023 11:04-0400 Heart rate 71 /min [facility] 12-03-2023 11:04-0400 Respiratory rate 12 /min [facility] 12-03-2023 11:04-0400 Systolic blood pressure 130 mm[Hg] [facility] Encounters Encounter Date Encounter Type Care Provider Facility Start: 04-05-2024 End: 04-05-2024 Bamboo flowsheet Amanda Rut DO Work Phone: [facility] Start: 04-05-2024 End: 04-05-2024 Bamboo flowsheet Amanda Rut DO Work Phone: [facility] [employer] [facility] Start: 03-15-2024 End: 03-15-2024 ambulatory DRE[facility] Start: 03-07-2024 ambulatory [facility] Start: 02-24-2024 End: 02-24-2024 ambulatory AMANDA RUT Not Available Start: 02-24-2024 End: 02-24-2024 Patient encounter procedure Amanda Rut DO Work Phone: [facility] Comment on above: Idiopathic periphera l neuropathy Start: 02-22-2024 End: 02-22-2024 Bamboo flowsheet Amanda Rut DO Work Phone: [facility] Start: 02-22-2024 End: 02-22-2024 Bamboo flowsheet Amanda Rut DO Work Phone: [facility] Start: 02-22-2024 End: 02-22-2024 ambulatory AMANDA RUT Not Available Start: 02-22-2024 End: 02-22-2024 Office outpatient new 45 minutes Amanda Rut DO Work Phone: [facility] Comment on above: Idiopathic periphera l neuropathy (Primary Dx); 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; Weakness; Numbness and tingling Start: 02-11-2024 ambulatory [facility] Start: 02-02-2024 ambulatory [facility] Start: 01-21-2024 [facility] Start: 12-09-2023 End: 12-09-2023 ambulatory [facility] Start: 12-03-2023 End: 12-03-2023 ambulatory [facility] Work Phone: Start: 12-03-2023 End: 12-03-2023 Patient encounter procedure [facility] Work Phone: Start: 12-01-2023 Non-patient / Non-visit [facility] [employer] Work Phone: Start: 11-10-2023 End: 11-10-2023 ambulatory DREA TANCKER [facility] Start: 06-04-2023 End: 06-04-2023 ambulatory Alvin Contreras Other [employer] Other Start: 06-04-2023 Encounter by sergio Contreras [facility] Start: 05-29-2023 End: 05-29-2023 ambulatory Alvin Contreras Other [facility] Other Start: 05-29-2023 Telephone encounter Alvin Contreras FP [facility] Start: 03-30-2023 End: 03-30-2023 ambulatory NIKKI MITCHELL Not Available Start: 01-13-2023 End: 01-14-2023 ambulatory HARESH PINEDA Facility:[facility] Start: 01-12-2023 Orders Only Haresh Pineda [...] 11-09-2017 End: 11-10-2017 Patient encounter DEFAULT PHYSICIAN Facility:[facility] Procedures Date Procedure Procedure Detail Performing Clinician Start: 03-15-2024 Follow-up visit Follow-up DREA LINO Start: 02-24-2024 End: 02-24-2024 Needle emg ea extremty w/paraspinl area complete Amanda Bettencourt DO Work Phone: Start: 02-07-[address] [facility] Comment on above: Performed By: #### T SH, BMP, LIPID, ALT #### [facility] [address], [place] [address] Dr[address] Fidel Paige Start: 11-05-2021 Radiologic exam ches t 2 views Eric Taylor APRN.MANUSCRIPT EDITOR Work Phone: Start: 11-05-2021 Radiologic examinati on tibia & fibula 2 views Eric Taylor APRN.CNP Work Phone: Start: 06-30-2019 Adult depression scr eening assessment Haresh Pineda MD Work Phone: Plan of Treatment Date Care Activity Detail Author Start: 02-12-2025 Screening for malign ant neoplasm of colon [facility] Start: 04-05-2024 End: 04-05-2024 Patient encounter procedure [facility] Comment on above: Arrived Start: 02-24-2024 End: 02-24-2024 Patient encounter procedure 02/24/2024 1:00 PM EST Procedure Visit [facility] [address] [id number] Amanda Bettencourt, [address] [place] [address] [facility] Start: 02-22-2024 End: 02-21-2025 Cobalamin (Vitamin B12) [Mass/volume] in Serum or Plasma Vitamin B12 Lab Routine Idiopathic peripheral neuropathy Expected: 02/22/2024 (Approximate), Expires: 02/21/2025 [facility] Work Phone: Comment on above: Expected: 02/22/2024 (Approximate), Expires: 02/21/2025 Start: 02-22-2024 End: 02-21-2025 EMG 2 Extremities EMG 2 Extremities Neurology Routine Idiopathic peripheral neuropathy Expected: 02/22/2024 (Approximate), Expires: 02/21/2025 [facility] Comment on above: Expected: 02/22/2024 (Approximate), Expires: 02/21/2025 Start: 02-22-2024 End: 02-21-2025 Folate [Mass/volume] in Serum or Plasma Folate Lab Routine Idiopathic peripheral neuropathy Expected: 02/22/2024 (Approximate), Expires: 02/21/2025 [facility] Comment on above: Expected: 02/22/2024 (Approximate), Expires: 02/21/2025 Start: 02-22-2024 End: 02-21-2025 NVC 9-10 Nerves NVC 9-10 Nerves Neurology Routine Idiopathic peripheral neuropathy Expected: 02/22/2024 (Approximate), Expires: 02/21/2025 [facility] Comment on above: Expected: 02/22/2024 (Approximate), Expires: 02/21/2025 Start: 02-22-2024 End: 02-21-2025 Protein electrophoresis, serum Protein electrophoresis, serum Lab Routine Idiopathic peripheral neuropathy Expected: 02/22/2024 (Approximate), Expires: 02/21/2025 [facility] Comment on above: Expected: 02/22/2024 (Approximate), Expires: 02/21/2025 Start: 02-22-2024 End: 02-21-2025 Thyrotropin [Units/volume] in Serum or Plasma TSH Lab Routine Idiopathic peripheral neuropathy Expected: 02/22/2024 (Approximate), Expires: 02/21/2025 [facility] Comment on above: Expected: 02/22/2024 (Approximate), Expires: 02/21/2025 Start: 12-19-2022 Influenza vaccination C [facility] Start: 11-05-2022 End: 12-05-2022 Radiologic exam chest 2 views XR CHEST 2V FRONTAL/LAT Radiology Routine Chondrosarcoma (HCC) Expected: 11/05/2022 (Approximate), Expires: 12/05/2022 [facility] Work Phone: Comment on above: Expected: 11/05/2022 (Approximate), Expires: 12/05/2022 Start: 11-05-2022 End: 12-05-2022 XR TIBIA FIBULA 2V AP/LAT RIGHT XR TIBIA FIBULA 2V AP/LAT RIGHT Radiology Routine Chondrosarcoma (HCC) Expected: 11/05/2022 (Approximate), Expires: 12/05/2022 [facility] Work Phone: Comment on above: Expected: 11/05/2022 (Approximate), Expires: 12/05/2022 Start: 10-25-2022 DIABETES SCREEN DIABETES SCREEN [facility] Start: 10-25-2022 Diabetes Screening Diabetes Screenin g [facility] Start: 04-20-2022 ADVANCE DIRECTIVE DISCUSSION ADVANCE DIRECTIVE DISCUSSION [facility] Start: 04-20-2022 DEPRESSION ASSESSMENT DEPRESSION ASS ESSMENT [facility] Start: 12-19-2021 Influenza vaccination INFLUENZA (#1) [facility] Start: 11-18-2021 COVID-19 VACCINE (5 - Pfizer series) COVID-19 VACCINE (5 - Pfizer series) [facility] Start: 04-20-2021 ADVANCE DIRECTIVE DISCUSSION ADVANCE DIRECTIVE DISCUSSION [facility] Start: 06-29-2020 Adult depression screening assessment DEPRESSION SCREENING [facility] Start: 2014 Pneumococcal Vaccine : 65+ (1 - PCV) Pneumococcal Vaccine: 65+ (1 - PCV) [facility] Start: 2014 PNEUMOCOCCAL: 65+ (1 - PCV) PNEUMOCOCCAL: 65+ (1 - PCV) [facility] Start: 09-19-1999 SHINGRIX VACCINE (1 of 2) SHINGRIX VACCINE (1 of 2) [facility] Start: 1994 COLOGUARD (FIT-DNA) COLOGUARD (FIT-D NA) [facility] Start: 1994 Colonoscopy COLONOSCOPY [facility] Start: 1994 COLORECTAL CANCER SCREENING COLORECTAL CANCER SCREENING [facility] Start: [address] COLONOGRAPHY [facility] Start: 1994 FECAL OCCULT BLOOD FECAL OCCULT BLOO D [facility] Start: 1994 SIGMOIDOSCOPY SIGMOIDOSCOPY [facility] Start: 1984 Lipid 1996 panel - Serum or Plasma Lipid Screening [facility] Start: 1984 LIPID SCREEN LIPID SCREEN [facility] Start: 1968 Urine microalbumin profile [facility] Start: 09-19-1967 ANNUAL PCP TEAM ACQUISITION MANAGER LEE ANN DISEASE VISIT ANNUAL PCP TEAM CHRONIC DISEASE VISIT [facility] Start: 09-19-1967 BP CONTROLLED (<130/80) BP CONTROLLE D (<130/80) [facility] Start: 09-19-1967 HEPATITIS C SCREENING HEPATITIS C SC REENING [facility] Start: 1950 Screening for malign ant neoplasm of colon [facility] End: 12-17-2023 Radiologic exam chest 2 views XR CHEST 2V FRONTAL/LAT Radiology Routine Chondrosarcoma (HCC) 1 Occurrences starting 11/17/2022 until 12/17/2023 [facility] Work Phone: Comment on above: 1 Occurrences starti ng 11/17/2022 until 12/17/2023 End: 02-11-2024 XR ANKLE GENERAL 3V AP/LAT/OBL LEFT XR ANKLE GENERAL 3V AP/LAT/OBL LEFT Radiology Routine Chronic pain of left ankle 1 Occurrences starting 01/12/2023 until 02/11/2024 [facility] Work Phone: Comment on above: 1 Occurrences starti ng 01/12/2023 until 02/11/2024 End: 12-17-2023 XR TIBIA FIBULA 2V AP/LAT RIGHT XR TIBIA FIBULA 2V AP/LAT RIGHT Radiology Routine Chondrosarcoma (HCC) 1 Occurrences starting 11/17/2022 until 12/17/2023 [facility] Work Phone: Comment on above: 1 Occurrences starti ng 11/17/2022 until 12/17/2023 XR TIBIA FIBULA 2V AP/LAT RT XR TIBIA FIBULA 2V AP/LAT RT Radiology Routine Chondrosarcoma (HCC) 11/05/2021 2:50 PM EDT [facility] Work Phone: [facility] Immunizations Immunization Date Immunization Notes Care Provider Fa cili 02-10-2022 influenza virus vaccine, split virus (incl. purified surface antigen) Alvin Contreras Other [facility] Other 02-10-2022 influenza virus vaccine, unspecified formulation [facility] 05-29-2020 COVID-19 Vaccine Pfi zer - Documentation Purposes Only Alvin Contreras Other [facility] 10-02-2016 diphtheria, tetanus toxoids and acellular pertussis vaccine, unspecified formulation Alvin Contreras Other [facility] 03-23-2016 pneumococcal conjuga te vaccine, 13 valent Alvin Contreras Other [facility] 03-01-2009 pneumococcal polysaccharide vaccine, 23 valent Alvin Contreras Other [facility] 02-25-2006 diphtheria, tetanus toxoids and acellular pertussis vaccine, unspecified formulation Alvin Contreras Other [facility] Payers Date Payer Category Payer Medicare MEDICARE MEDICAR E A AND B [id number] 2014-Present [phone] [address] [address] [place] [address] Medicare [id number] 2014 Medicare [id number] 2014 Private Health Insurance [employer] [place] [id number] 2014 Unknown 2014 Unknown [employer] 2N D [id number] 2014-Present [phone] [address] [address] [place] [id number] Indemnity [id number] 2014 Unknown [id number] 1959 Medicare [id number] 1959 Unknown [id number] 1949 Unknown [id number] 1949 Unknown [id number] 1949 Unknown [id number] 1949 Unknown [id number] 1949 Unknown [id number] 1949 Unknown [id number] Social History Date Type Detail Facility Start: 07-17-2017 Tobacco smoking stat [facility] Never smoked tobacco [facility] Start: 07-17-2017 End: 02-22-2024 Tobacco use and exposure Smokeless tobacco non-user [facility] Start: 1950 Sex Assigned At Male C [facility] Start: 10-26-2021 End: 11-05-2021 Exposure to SARS-CoV-2 (event) Not sure [facility] Start: 05-18-2022 End: 02-22-2024 History of Social function [facility] Start: 05-18-2022 End: 02-22-2024 Area Deprivation Index [facility] National Score (1-10 0), lower number is lower risk 60 [facility] Start: 11-23-2019 Sexual orientation Heterosexual (fin paige) [facility] Tobacco smoking stat [facility] Tobacco smoking consumption unknown [facility] Start: 1950 Sex assigned at Not on file [facility] Start: 02-22-2024 Tobacco smoking stat [facility] Ex-smoker [facility] History of tobacco use Current smoker [facility] History of tobacco use Cigarette Smoker [facility] Medical Equipment Procedure Code Equipment Code Equipment Origin al Text Equipment Identifier Dates Graft Enhance Demineralized Cortical Fiber Bone Allograft Dehydrate 2.5ml - [id number] Start: 08-27-2017 Graft Cancellous Chips Bone Void Freeze Dry 30ml (1.7-10mm) - [id number] Start: 08-27-2017 Graft Dbx Bone V oid Allograft Freeze Dried Putty 1ml - [id number] Start: 08-27-2017 Tibial Nail [id number] Start: 08-27-2017 Carbofix Titaniumscrew [id number] S tart: 08-27-2017 Carbofix Titaniu m Screw [id number] Start: 08-27-2017 Carbofix Titaniu m Screw [id number] Start: 08-27-2017 Carbofix Titaniu m Screw [id number] Start: 08-27-2017 Carbofix Titaniu m Screw [id number] Start: 08-27-2017 Clinical Notes 10-10-2021 to 03-15-2024 Geoff Joshua, ARRT - 02/24/2024 1:00 PM Makayla Bettencourt, DO - 02/22/2024 10:30 AM EST Note Date & Type Note Facility 03-15-[address] [facility] SUBJECTIVE Chief Complaint Patient presents [...] This was followed up with [facility] with [facility] protocol which was negative for inducible arrhythmias [...] [Carvedilol] Diarrhea Meperi (more content not included)... [facility] 02-24-2024 History of Present illness Narrative Images from the original note were not included. Reason for Appointment: EMG Patient: Bang Sharma : 1950 EMG Computer: [employer] Referring Physician: Dr. Amanda Bettencourt EMG: BLE hospice manager: Geoff Joshua RT(R) Office Location: [place] Reason for EMG: c/o numbness/tingling in right foot/ankle. Hx of surgery to right lower leg. No hx of DM. Not on blood thinners. Comments: Procedure was explained to the patient & who expressed understanding. Patient appeared to have tolerated the test well despite some discomfort due to the nature of the test. documented in this encounter [facility] 02-22-2024 History of Present illness Narrative Images from the original note were not included. Chief Complaint Patient presents with Numbness Peripheral Neuropathy Subjective Bang Sharma, 73 y.o., male being seen in Neurology consultation at the request of Dr. Schneider. Dr. Contreras is his PCP. HPI Lower extremity numbness - labs @ [facility]; referral received from Dr Reina Schneider, [...] clinic: 3 weeks documented in this encounter [facility] 12-09-2023 Note LOOP IMPLANT PROCEDU RE NOTE DATE OF PROCEDURE: 12/09/23 PERFORMING PHYSICIAN: Dr. Alpesh Jenkins CRIMINAL RECORDS TECHNICIAN: JERROD INDICATIONS FOR PROCEDURE: 1. SVT/AF surveillance [...] the sternum on the left using the [employer] tool. The loop recorder was then injected [...] the incision. Alpesh Jenkins MD Cardiac Electrophysiology. [facility] 11-10-[address] [facility] SUBJECTIVE Chief Complaint Patient presents [...] This was followed up with [facility] with [facility] protocol which was negative for inducible arrhythmias [...] (260 lb) SpO2 (more content not included)... [facility] 11-10-2023 Note Patient here today [...] All other systems reviewed and are negative. [facility] 05-29-2023 Evaluation note Encounter Date Diagnosis Assessment Notes May, Anemia (ICD-10 - D64.9) [facility] Other 09-26-2023 NoteHNO ID: [id number] Author: Keri Lopez RN Service: ? Author Type: Registered Nurse Type: Progress Notes Filed: 01/13/2023 4:19 PM Note Text: I served as a scribe during this office visit encounter. [facility] Note[facility] ID: [id number] Author: Ranjith Teixeira RT(R) Service: Radiology Author [...] BY: RT Mariel(R) January 13, 2023 2:20 [facility]09-26-2023 NoteHNO ID: [id number] Author: Haresh Pineda MD Service: ? 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 (CPT 57275 - 22) Placement of Prophylactic Carbon Fiber Tibial Nail, Right Tibia (CPT 72869) High Speed Cuney and Adjuvant Treatment with 10% H202 (CPT 92250) Neruolysis and Dissection of Deep Peroneal Nerve (CPT 24248) Right Iliac [place] [facility]/[place] ( CPT 42212) Diagnosis: Right Tibial Diaphysis Cartilage Lesion with [...] the date of the service which included [id number] patient care, completing clinical documentation, obtaining and/or [...] information added by medical student, resident, nurse, MANUSCRIPT EDITOR/DEVAN that I have placed my signature directly below I have verified and either instructed them to document in a scribe function or document appropriately in the chart during the patient visit. Haresh Pineda MD service now developer, [facility], Division of Musculoskeletal Oncology Co-Director of Sar[facility], [facility] Pager: [phone] (more content not included)...[id number] History of Present illness Narrative* Haresh Pineda MD - 11/05/2021 5:19 PM EDT This note was created using Modumetalriter. AAOS AMB SF ORT MST FU Advanced: Did this patient have an adverse event since their last encounter?: No * Haresh Pineda MD - 11/05/2021 4:07 PM EDT Orthopaedic Surgery Follow-Up Clinic Note Surgery/Date: 08/27/2017 1. 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 (CPT 51033 - 22) 2. Placement of Prophylactic Carbon Fiber Tibial Nail, Right Tibia (CPT 91016) 3. High Speed Cuney and Adjuvant Treatment with 10% H202 (CPT 64804) 4. Neruolysis and Dissection of Deep Peroneal Nerve (CPT 73771) 5. 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 Exam: RLE -- largely unchanged compared [...] the date of the service which included [id number] patient care, completing clinical documentation, obtaining and/or reviewing separately obtained history, performing a medically appropriate examination, counseling and educating the patient/family/caregiver, ordering medications, tests, or procedures, independently interpreting results (not separately reported) and communicating results to the patient/family/caregiver. Any information added by medical student, resident, nurse, MANUSCRIPT EDITOR/PA-C that I have placed my signature directly below I have verified and either instructed them to document in a scribe function or document appropriately in the chart during the patient visit. 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, site unspecified documented in this encounter [facility] note* 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, site unspecified documented in this encounter [facility] note* 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, site unspecified documented in this encounter [facility] note* Diagnosis Chronic pain of left ankle- Primary documented in this encounter [facility] noteNo Proficiency Other Evaluation note* Diagnosis Onset Date Resolution Status Anemia acute Atrial fibrillation acute Hypercholesterolemia acute Hypertension acute Obesity acute REMY (obstructive sleep apnea) acute [facility] Work Phone: Evaluation note* Diagnosis Idiopathic peripheral [...] insertion 2018 Hospitalization History see surgical hx [facility] Other Reason for referral (narrative)* Diagnostic Procedure Only (Routine) - Pending Review Specialty Diagnoses / Procedures Referred By Tigre kilpatrick Referred To Contact XR IMAGING Diagnoses Chondrosarcoma (HCC) Procedures XR TIBIA FIBULA 2V AP/LAT RIGHT RADIOLOGIC EXAMINATION TIBIA & FIBULA 2 VIEWS Haresh Pineda MD [address] [place] [address] Xr Imaging Referral ID Status Reason Start Date Expiration Date Visits Requested Visits Authorized [id number] Pending Review Auto-Generat ed Referral 11/05/2022 12/05/2022 1 1 [facility] for referral (narrative)* Diagnostic Procedure Only (Routine) - Pending Review Specialty Diagnoses / Procedures Referred By Tigre kilpatrick Referred To Contact XR IMAGING Diagnoses Chondrosarcoma (HCC) Procedures XR TIBIA FIBULA 2V AP/LAT RIGHT RADIOLOGIC EXAMINATION TIBIA & FIBULA 2 VIEWS Haresh Pineda MD [address] [place] [address] Xr Imaging Referral ID Status Reason Start Date Expiration Date Visits Requested Visits Authorized [id number] Pending Review Auto-Generat ed Referral 11/17/2022 12/17/2023 1 1 [facility] Diagnostic Procedure Only (Routine) - Authorized Specialty Diagnoses / Procedures Referred By Contac t Referred To Contact XR IMAGING Diagnoses Chronic pain of left ankle Procedures XR ANKLE GENERAL 3V AP/LAT/OBL LEFT RADEX ANKLE COMPLETE MINIMUM 3 VIEWS Valeri Quintero PA-C [address] [place] [address] Xr Imaging [place] [address] Referral ID Status Reason Start Date Expiration Date Visits Requested Visits Authorized [id number] Authorized Auto-Generat ed Referral 01/12/2023 02/11/2024 1 1 [facility] Summary Purpose Family History Relationship Condition Age at Onset Recorded Date/T kayley father Malignant neoplasm Unknown Unknown mother Hypertension Unknown Diabetes mellitus Unknown Advance Directives Documents on File Type Date Recorded 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 Advance Directive(s) Advance Directive(s) 09/02/2018 11:24 AM Advance Directive(s) 08/26/2018 2:02 PM Advance Directive(s) 08/24/2017 2:28 PM Documents on File Type Date Recorded 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 Advance Directive(s) Advance Directive(s) 09/02/2018 11:24 AM Advance Directive(s) 08/26/2018 2:02 PM Advance Directive(s) 08/24/2017 2:28 PM Documents on File Type Date Recorded 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 Source Comments (unrecognize d section and content) In the event this informatio n is protected by the Federal Confidentiality of Alcohol and Drug Abuse Patient Records regulations: The Federal rules restrict any use of the information to criminally investigate or prosecute any alcohol or drug abuse patient.[facility] HospitalIn the event this information is protected by the Federal Confidentiality of Alcohol and Drug Abuse Patient Records regulations: The Federal rules restrict any use of the information to criminally investigate or prosecute any alcohol or drug abuse patient.[facility] HospitalIn the event this information is protected by the Federal Confidentiality of Alcohol and Drug Abuse Patient Records regulations: The Federal rules restrict any use of the information to criminally investigate or prosecute any alcohol or drug abuse patient.[facility] HospitalIn the event this information is protected by the Federal Confidentiality of Alcohol and Drug Abuse Patient Records regulations: The Federal rules restrict any use of the information to criminally investigate or prosecute any alcohol or drug abuse patient.[facility] Reason for Visit (unrecogniz ed section and content) Reason Comments Follow Up Reason Comments Radio Gen A21 Reason Comments Numbness Peripheral Neuropathy Specialty Diagnoses / Procedures Referred By Contac t Referred To Contact Neurology Diagnoses Anesthesia of skin Procedures DC OFFICE/OUTPATIENT NEW LOW MDM 30 MINUTES Reina Schneider MD [address] [place] [address] [place] [address] Phone: tel: fax: Emmett Pineda, [address] [place] [address] Phone: tel: fax: Referral ID Status Reason Start Date Expiration Date V isits Requested Visits Authorized [id number] Closed Consult and Treat 02/11/2024 08/09/2024 1 1 Care Teams (unrecognized sec tion and content) Geophysical Manager Relationship Specialty Start Date End Date Alvin Contreras DO [address] [place] [address] PCP - General Internal Medicine 06/19/17 Geophysical Manager Relationship Specialty Start Date End Date Alvin Contreras DO [address] [place] [address] PCP - General Internal Medicine 06/19/17 Geophysical Manager Relationship Specialty Start Date End Date Alvin Contreras DO [address] [place], [place] [id number] PCP - General Internal Medicine 06/19/17 Team [...] December 03, 2023 End: December 03, 2023 Geophysical Manager Relationship Specialty Start Date End Date Alvin Contreras MD [address] [place] [address] PCP - General Internal Medicine 03/30/23 Geophysical Manager Relationship Specialty Start Date End Date Alvin Contreras MD [address] [place] [address] PCP - General Internal Medicine 03/30/23 Bhavik Justin, PhD [address] [phone] Referring Physician Neuropsychology 02/22/24 Geophysical Manager Relationship Specialty Start Date End Date Alvin Contreras MD [address] [place] [address] PCP - General Internal Medicine 03/30/23 Bhavik Justin, PhD [address] [phone] Referring Physician Neuropsychology 02/22/24 Geophysical Manager Relationship Specialty Start Date End Date Alvin Contreras MD [address] [place] [address] PCP - General Internal Medicine 03/30/23 Bhavik Justin, PhD [address] [address] [place] [address] Referring Physician Neuropsychology 02/22/24 Amanda Bettencourt DO [address] [place] [address] Referring Physician Neurology 04/05/24 Goals [...] BE BASED ON THE PRIMARY CLINICAL RECORDS. [email or web address] provides no warranty or guarantee of the accuracy or completeness of information in this document.
[2024-04-07 10:44] LABS: Bilirubin Urine NEGATIVE (NEGATIVE); Blood Urine NEGATIVE (NEGATIVE); Clarity Urine CLEAR (CLEAR); Color Urine LT. YELLOW (YELLOW); Glucose Urine UA NEGATIVE (NEGATIVE); Ketones Urine NEGATIVE (NEGATIVE); Leukocyte Esterase Urine NEGATIVE (NEGATIVE); Nitrite Urine NEGATIVE (NEGATIVE); Protein Urine NEGATIVE (NEG/TRACE); Urobilinogen Urine 0.2 EU/dL (0.2-1.0); pH Urine 6.5 (5.0-9.0)
[2024-04-07 10:56] LABS: Bacteria Urine NONE SEEN #/HPF (NONE SEEN); RBC Urine NONE SEEN #/HPF (0-2); WBC Urine NONE SEEN #/HPF (NONE SEEN)
[2024-04-07 10:57] LABS: Mucus Urine NONE SEEN (NONE SEEN); Squamous Epithelial Cell Urine RARE #/LPF (NONE/RARE)
[2024-04-07 11:11] LABS: Anion Gap 8.4; BUN Creatinine Ratio 13.3; Carbon Dioxide 29.3 mmol/L (21.0-32.0); Chloride 107 mmol/L (98-107); Estimated GFR (African America >60 (>=60 mL/min/1.73m^2); Estimated GFR (Non-African Ame >60 (>=60 mL/min/1.73m^2); Glucose 99 mg/dL (74-106); Potassium 3.7 mmol/L (3.5-5.1); Sodium 141 mmol/L (136-145)
[2024-04-08 10:11] LABS: PTH, Intact 88 pg/mL (15-65)
== END 2024-04-07 10:25 | disposition home or self-care (01) ==
LOC: LAB 10:25
PROVIDERS: PCP Internal Medicine; Visit Provider Internal Medicine
DX: G60.9 Hereditary and idiopathic neuropathy, unspecified (principal); E83.52 Hypercalcemia; N13.30 Unspecified hydronephrosis
CPT/HCPCS: 36415; 80048; 81001; 82306; 82607; 82746; 83970; 84155; 84165; 84443

== ENCOUNTER 2024-07-07 10:15 | Outpatient (OUT) | payer MEDICARE, OTHER, SELFPAY ==
--- OUTSIDE RECORDS SUMMARY | 2024-07-07 10:28 | XMS_ITS | CCD ---
Author Organization [facility] Care Team Providers Care Technical Lead Name Role Phone PHYSICIAN, DEFAULT Unavailable Unavailable PHYSICIAN, DEFAULT Unavailable Unavailable ALVIN CONTRERAS Unavailable Unavailable Alvin Contreras DO Primary Care Provider DR ALVIN CONTRERAS Primary Care Unavailable HANNA GUPTA Admitting Unavailable HANNA GUPTA Attending Unavailable ZIEBADOLPH, DR TIFFANY [employer] Unavailable HANNA GUPTA [...] Unavailable HARESH PINEDA Referring Unavailable HARESH PINEDA W Attending Unavailable ALVIN CONTRERAS Primary Care Unavailable Alvin Contreras Unavailable Alvin Contreras MD Primary Care Provider Nhan PhD, Bhavik Unavailable Amanda Bettencourt DO Unavailable ALPESH JENKINS Referring Unavailable SUSANALPESH Referring Unavailable SUSANALPESH Vazquez Referring Unavailable YAKOVTEE Referring Unavailable ALPESH JENKINS Admitting Unavailable ALPESH JENKINS Attending Unavailable ALPESH JENKINS Referring Unavailable SUSANALPESH Vazquez Referring Unavailable DREA LINO Attending Unavailable DREA LINO Attending Unavailable ALPESH JENKINS Attending Unavailable ALPESH JENKINS Referring Unavailable MILTON DEGROOT Attending Unavailable AMANDA BETTENCOURT Attending Unavailable REINA SCHNEIDER Referring Unavailable AMANDA BETTENCOURT Attending Unavailable AMANDA BETTENCOURT Attending Unavailable Allergies Allergy Classification Reported Allergen(s) Allergy Type Date of Onset Reaction(s) Facility (2 sources) meperidine Drug Allergy 4 [facility] (7 sources) Penicillins; Translations: [PENICILLINS] Drug allergy (disorder) 2 AOF, Unknown Reaction [facility] (4 sources) Penicillins Drug Allergy [address] [facility] (6 sources) Insects Extract; Translations: [INSECTS EXTRACT] Drug Allergy 1 Other: See Comments [facility] (4 sources) atorvastatin Drug Allergy 4 Unknown, Unknown Reaction [facility] (2 sources) Penicillin Drug Allergy Unknown [facility] Other (2 sources) Substance with penicillin structure and antibacterial mechanism of action (substance) Drug allergy Unknown [employer] Other (8 sources) Meperidine; Translations: [MEPERIDINE] Drug Allergy 8 [facility] (7 sources) Penicillins Drug Allergy 4 Hives, Rash, Other [facility] (1 source) carvedilol; Translations: [CARVEDILOL] Drug Allergy 3 [facility] (1 source) Metoprolol; Translations: [METOPROLOL] Drug Allergy 3 [facility] (1 source) nebivolol; Translations: [NEBIVOLOL] Drug Allergy 3 [facility] Medications Current Medications Medication Drug Class(es) Dates Sig (Normalized) Sig (Original) amLODIPine 10 mg oral tablet (15 sources) Dihydropyridine Calcium Channel Lisa Start: 09-01-2023 take 1 tablet by mouth once daily Amlodipine 10 mg tablet Active 10 MG PO Daily August 31, 2023 11:00pm Start: 11-21-2020 take 1 tablet by sudhakar th once daily amLODIPine Besylate 10MG amLODIPine Besylate 10MG, 1 (one) Tablet Tablet Tablet Tablet daily # 0, 11/21/2020, No Refill. Active Oral daily *Pick strength-form from [employer] for eRX* Nov, Active Start: 08-02-2018 take 4 tablets by mo [facility] twice daily amLODIPine (NORVASC) 2.5 mg tablet [...] two times daily for 5 Mar, Active ascorbic acid 1000 mg oral tablet (3 sources) Vitamin C take 1 tablet by mouth once daily ascorbic acid (Vitamin C) 1000 MG tablet Take 1,000 mg by mouth Daily Active baclofen 10 mg oral tablet (4 sources) gamma-Aminobutyric Acid-ergic Agonist Start: take 1 tablet by mouth once daily Baclofen 10 mg tablet Active 10 MG PO Daily August 31, 2023 11:00pm take 1 tablet by [facility] once daily at bedtime Baclofen 10 MG TAKE 1 TABLET BY MOUTH AT BEDTIME EVERY NIGHT for 90 Active cholecalciferol 1.25 mg oral capsule (1 source) Vitamin D Start: 04-11-2024 take 1 capsule by mouth every week Cholecalciferol (Vitamin D3) 1,250 mcg (50,000 unit) capsule Active 1250 MCG PO every week 09 16April 11, 2024 12:00am doxycycline hyclate 100 mg oral capsule (1 source) Tetracycline-class Drug Start: 04-27-2024 take 1 capsule by mouth twice daily Doxycycline Hyclate 100 mg capsule Active 100 MG PO Twice daily 31 10April 27, 2024 12:00am flecainide acetate 100 mg oral tablet (16 sources) Antiarrhythmic Start: 12-03-2023 take 50 mg by mouth every twelve hours Flecainide Active 50 MG PO Every 12 hours December 03, 2023 11:02am Start: 10-08-2023 Flecainide 100 mg tablet Active 50 MG PO Every 12 hours December 03, 2023 10:02am Start: 09-01-2023 End: 12-03-2023 take 1 tablet by mouth every twelve hours Flecainide 100 mg tablet Discontinued 100 MG PO Every 12 hours August 31, 2023 11:00pm December 03, 2023 10:03am Start: 04-04-2022 Flecainide Osmar brown 100MG Flecainide Acetate( 100MG Oral 1 two times daily ) Active -Hx Entry Oral two times daily *Pick strength-form from [employer] for eRX* Mar, Active Start: 10-08-2021 flecainide (TA MBOCOR) 100 mg tablet losartan potassium 100 mg oral tablet (2 sources) Angiotensin 2 Receptor Lsia Start: 04-08-2024 End: 04-11-2024 take 1 tablet by mouth once daily Losartan 100 mg tablet Active 100 MG PO Daily 90 90 April 11, 2024 3:47pm Losartan Potassium-HCTZ 100-25MG (2 sources) Start: 04-04-2022 Losartan Potassium-HCTZ 100-25MG Losartan Potassium-HCTZ( 100-25MG Oral ) Active -Hx Entry Oral *Pick strength-form from [employer] for eRX* Mar, Active magnesium citrate 58.2 mg/ml oral solution (7 sources) magnesium citrat e solution Take by mouth Active meloxicam 15 mg oral tablet (4 sources) Nonsteroidal Anti-inflammatory Drug Start: 03-11-2024 take 1 tablet by mouth once daily Meloxicam 15 mg tablet Active 15 MG PO Daily March 11, 2024 12:00am Multivitamin With Iron (1 source) Start: 09-01-2023 take 1 tablet by mouth once daily Multivitamin With Iron Active 1 TAB PO Daily September 01, 2023 12:00am Multivitamin With Iron tablet (1 source) Start: 09-01-2023 take 1 tablet by mouth once daily Multivitamin With Iron tablet Active 1 TAB PO Daily August 31, 2023 11:00pm Potassium gluconate (7 sources) POTASSIUM GLUCONATE PO Take by mouth Active ubidecarenone 100 mg oral tablet (7 sources) take 10 tablets by mouth once [...] / losartan potassium 100 mg oral tablet (13 sources) Thiazide Diuretic, Angiotensin 2 Receptor Lisa Start: 09-01-2023 End: 04-08-2024 take 1 tablet by mouth once daily Losartan-Hydroch lorothiazide 100-25 mg tablet Discontinued 1 TAB PO Daily August 31, 2023 11:00pm April 08, 2024 6:46pm Start: 03-20-2017 take 1 tablet by sudhakar [...] Classification Problem Date Documented Da te Episodic/Chronic Abdominal pain (2 sources) Abdominal pain; Translations: [Unspecified abdominal pain] 03-11-2024 Episodic Cancer of bone and connective tissue (15 sources) Chondrosarcoma; 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, unspecified] Onset: 08-20-2017 Chronic Cardiac dysrhythmias (20 sources) Paroxysmal atrial fibrillation; Translations: [Paroxysmal atrial fibrillation] Onset: 08-24-2017 08-24-2017 Chronic Comment on above: Echo: LVEF 55%, norm al RV size/function, DOMINGO, RVSP 11/2023 Deficiency and other anemia (2 sources) Anemia, unspecified; Translations: [Anemia, unspecified] Episodic Deficiency and other anemia (1 source) Anemia; Translations: [Anemia, unspecified] 08-30-2023 Episodic Disorders of lipid metabolism (12 sources) Familial hypercholesterolemia ; Translations: [Pure hypercholesterolemia ] Onset: 02-07-2022 Chronic Essential hypertension (11 sources) Essential hypertension; Translations: [Essential (primary) hypertension] Onset: 08-24-2017 08-24-2017 Chronic Hyperplasia of prostate (2 sources) Lower urinary tract symptoms due to benign prostatic hypertrophy; Translations: [Benign prostatic hyperplasia with lower urinary tract symptoms] Chronic Inflammation; infection of eye (except that caused by tuberculosis or sexually transmitteddisease) (1 source) Hordeolum; Translations: [Hordeolum externum unspecified eye, unspecified eyelid] 09-01-2023 Episodic Malaise and fatigue (4 sources) Asthenia; Translations: [Weakness] 02-22-2024 Episodic Nutritional deficiencies (1 source) Vitamin D deficiency; Translations: [Vitamin D deficiency, unspecified] 04-08-2024 Chronic Osteoarthritis (2 sources) Localized, primary osteoarthritis of the shoulder region; Translations: [Primary osteoarthritis, left shoulder] Chronic Other diseases of kidney and ureters (1 source) Hydronephrosis; Translations: [Unspecified hydronephrosis] 03-23-2024 Episodic Other endocrine disorders (2 sources) Adrenal mass; Translations: [Other specified disorders of adrenal gland] Chronic Other eye disorders (1 source) Chalazion of right upper eyelid; Translations: [Chalazion right upper eyelid] 09-01-2023 Episodic Other nervous system disorders (1 source) Other chronic pain; Translations: [Chronic pain of left ankle] Onset: 01-13-2023 Chronic Other nervous system disorders (5 sources) Idiopathic peripheral neuropathy; Translations: [Hereditary and idiopathic neuropathy, unspecified] 02-22-2024 Chronic Other nervous system disorders (4 sources) Common peroneal neuropathy; Translations: [Lesion of sciatic nerve, right lower limb] 02-22-2024 Chronic Other nervous system disorders (4 sources) Numbness and tingling sensation of skin; [...] Episodic Other nutritional; endocrine; and metabolic disorders (4 sources) Obesity; Translations: [Other obesity due to excess calories] Onset: 08-24-2017 08-31-2018 Chronic Other nutritional; endocrine; and metabolic disorders (2 sources) Obesity caused by energy imbalance; Translations: [Other obesity due to excess calories] Onset: 08-24-2017 08-31-2018 Chronic Other nutritional; endocrine; and metabolic disorders (2 sources) Obesity, unspecified; Translations: [Obesity, unspecified] 12-03-2023 Chronic Other nutritional; endocrine; and metabolic disorders (1 source) Hypercalcemia; Translations: [Hypercalcemia] 03-11-2024 Chronic Other nutritional; endocrine; and metabolic disorders (1 source) Hypercalcemia; Translations: [Hypercalcemia] 03-11-2024 Chronic Other screening for suspected conditions (not mental disorders or infectious disease) (3 sources) Encounter for screening for malignant neoplasm of prostate; Translations: [Patient encounter status] Onset: 02-12-2022 03-10-2024 Episodic Comment on above: PSA: 1.98 - 01/2021, 2.26 - 01/2022, 1.42 - 02/2023, 1.32 - 02/2024 Other skin disorders (1 source) Skin tag; Translations: [Other hypertrophic disorders of the skin] 09-01-2023 Episodic Paralysis (4 sources) Monoplegia of lower limb; Translations: [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] Onset: 06-30-2019 06-30-2019 Chronic Phlebitis; thrombophlebitis and thromboembolism (2 sources) H/O: Deep vein thrombosis; Translations: [Personal history of other venous thrombosis and embolism] Episodic Residual codes; unclassified (6 sources) Obstructive sleep apnea syndrome; Translations: [Obstructive sleep apnea (adult) (pediatric)] Onset: 08-24-2017 08-24-2017 Chronic Residual codes; unclassified (2 sources) Obstructive sleep apnea (adult) (pediatric); Translations: [Obstructive sleep apnea (adult)(pediatric)] 12-03-2023 Chronic Spondylosis; intervertebral disc disorders; other back problems (2 sources) Lumbar spondylosis; Translations: [Spondylosis without myelopathy or radiculopathy, lumbar region] Chronic Past or Other Problems Problem Classification Problem Date Documented Da te Episodic/Chronic Acquired foot deformities (4 sources) Right foot drop; Translations: [Foot drop, right foot] Onset: 06-30-2019 06-30-2019 Episodic Cardiac dysrhythmias (3 sources) Palpitations; Translations: [PALPITATIONS] Onset: 06-12-2022 Episodic Other aftercare (1 source) 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; Translations: [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 THERAPY] Onset: 02-12-2022 Episodic Other [...] of skin sensation] Onset: 06-30-2019 06-30-2019 Episodic Results Test Name Value Interpretation Reference Range Facility Office Visiton 06-14-2024 Follow-up visit [id number] Lucinda Sharma 1950 M Date Provider Department Center 06/14/2024 ALPESH MARQUEZ Family History Problem Relation Age of Onset Coronary artery disease Other Hypertension Other Family Status - Relation Status Age at Other Level of Service:16389 [place] OFFICE/OUTPATIENT ESTABLISHED LOW MDM 20 MIN Normal [facility] ALL THYROID STIM HORMONEon 1 06-08-2023 TSH Qn 0.963 m[IU]/L [facility] Albumin [Mass/volume] in Ser um or Plasmaon 04-07-2024 Albumin [Mass/Vol] Albumin [Mass/volume ] in Serum or Plasma 2.9-4.4 [facility] Estimated glomerular filtrat ion rate (GFR) non- Americanon 04-07-2024 GFR/1.73 sq M.predicted among non-blacks MDRD (S/P/Bld) [Vol rate/Area] Estimated glomerular filtration rate (GFR) non- >=60 mL/min/1.73m 2 [facility] Laboratory - Chemistry and C hemistry - challengeon 04-07-2024 Calcium [Mass/Vol] 10.0 mg/dL 8.5-10.1 [facility] Chloride [Moles/Vol] 107 mmol/L 98-107 [facility] CO2 [Moles/Vol] 29.3 mmol/L 21.0-32.0 [facility] Cobalamin (Vitamin B12) [Mass/Vol] 748 pg/mL 232-1245 [facility] Comment on above: Performed at: - [facility] [place] [id number] Director: Shahab Rodney PhD, Phone: [phone] Creatinine [Mass/Vol] 0.90 mg/dL 0.70-1.30 [facility] GFR/1.73 sq M.predicted MDRD (S/P/Bld) [Vol rate/Area] mL/min/{1.73_m2} >=60 mL/min/1.73m 2 [facility] Glucose [Mass/Vol] 99 mg/dL 74-106 [facility] Potassium [Moles/Vol] 3.7 mmol/L 3.5-5.1 [facility] Sodium [Moles/Vol] 141 mmol/L 136-145 [facility] TSH Qn 0.963 m[IU]/L 0.358-3.740 [facility] Urea nitrogen [Mass/Vol] 12.0 mg/dL 7.0-18.0 [facility] Urea nitrogen/Creatinine [Mass ratio] 13.3 mg/mg [facility] Bilirubin Ql (U) Negative NEGATIVE [facility] Glucose (U) [Mass/Vol] Negative NEGATIVE [facility] Ketones Ql (U) Negative NEGATIVE [facility] pH (U) 6.5 [pH] 5.0-9.0 [facility] Specific gravity (U) [Rel density] 1.020 1.005-1.025 [facility] Urobilinogen Qn (U) 0.2 {Andre'U}/dL 0.2-1.0 [facility] Laboratory - Specimen inform ationon 04-07-2024 Appearance (U) CLEAR CLEAR [facility] Color (U) LT. YELLOW YELLOW [facility] Laboratory - Urinalysison Leukocyte esterase Test strip Ql (U) Negative NEGATIVE [facility] Mucus Ql (Urine sed) NONE SEEN NONE SEEN [facility] Nitrite Ql (U) Negative NEGATIVE [facility] Protein Ql (U) Negative NEG/TRACE [facility] No Panel Informationon 04-07 25-Hydroxy Vitamin D Total 18.7 ng/mL [facility] Comment on above: <20 ng/mL Vit D defi cient20-<30 ng/mL Vit D [id number] ng/mL Vit D sufficient>100 ng/mL Potential Toxicity Folate 23.60 ng/mL 8.60-58.90 [facility] Parathyroid Hormone (Intact) 88 pg/mL Abnormal 15-65 [facility] Comment on above: Performed at: [facility] [address] [id number] Director: Shahab Rodney PhD, Phone: [phone] Protein Electrophoresis M-Harry Not Observed g/dL Not Observed [facility] Protein Electrophoresis Note Comment . [facility] Comment on above: Protein electrophore sis scan will follow via computer,mail, or marketing director assisted living delivery.Performed at: [facility] [address] [id number] Director: Shahab Rodney PhD, Phone: [phone] Urine Bacteria NONE SEEN #/HPF NONE SEEN [facility] Urine Occult Blood Negative NEGATIVE [facility] Urine RBC NONE SEEN #/HPF 0-2 [facility] Urine Squamous Epithelial Cells RARE #/LPF NONE/RARE [facility] Urine WBC NONE SEEN #/HPF NONE SEEN [facility] Protein [Mass/volume] in Ser um or Plasmaon 04-07-2024 Protein [Mass/Vol] Protein [Mass/volume ] in Serum or Plasma 6.0-8.5 [facility] Serum globulin measurement ( mass/volume)on 04-07-2024 Globulin (S) [Mass/Vol] Serum globulin measurement (mass/volume) 2.2-3.9 [facility] Serum or plasma albumin/glob ulin mass ratioon 04-07-2024 Albumin/Globulin [Mass ratio] Serum or plasma albumin/globulin mass ratio 0.7-1.7 [facility] Serum or plasma alpha 1 glob ulin measurement by electrophoresis (mass/volume)on 04-07-2024 Alpha 1 globulin Elph [Mass/Vol] Serum or plasma alpha 1 globulin measurement by electrophoresis (mass/volume) 0.0-0.4 [facility] Serum or plasma alpha 2 glob ulin measurement by electrophoresis (mass/volume)on 04-07-2024 Alpha 2 globulin Elph [Mass/Vol] Serum or plasma alpha 2 globulin measurement by electrophoresis (mass/volume) 0.4-1.0 [facility] Serum or plasma anion gap de terminationon 04-07-2024 Anion gap [Moles/Vol] Serum or plasma anion gap determination [facility] Serum or plasma beta globuli n measurement by electrophoresis (mass/volume)on 04-07-2024 Beta globulin Elph [Mass/Vol] Serum or plasma beta globulin measurement by electrophoresis (mass/volume) 0.7-1.3 [facility] Serum or plasma gamma globul in measurement by electrophoresis (mass/volume)on 04-07-2024 Gamma globulin Elph [Mass/Vol] Serum or plasma gamma globulin measurement by electrophoresis (mass/volume) 0.4-1.8 [facility] Office Visiton 03-15-2024 Follow-up visit [id number] Lucinda Sharma 1950 M Date Provider Department Center 03/15/2024 DREA STOVALL [facility] Family History Problem Relation Age of Onset Coronary artery disease Other Hypertension Other Family Status - Relation Status Age at Other Level of Service:30461 [place] OFFICE/OUTPATIENT ESTABLISHED LOW MDM 20 MIN Reason for Visit and Comments: Follow-up [288305] - 3 month follow up Atrial Fibrillation [80] Normal [facility] Basophils Auto (Bld) [#/Vol] on 03-10-2024 Basophils (Bld) [#/Vol] Automated basophil count 0.0-0.1 [facility] Basophils/100 WBC Auto (Bld) on 03-10-2024 Basophils/100 WBC (Bld) Automated basophil % 0.2-2.0 [facility] Cholesterol in LDL Calc [Mas s/Vol]on 03-10-2024 Cholesterol in LDL [Mass/Vol] Cholesterol in LDL [Mass/volume] in Serum or Plasma by calculation [facility] Comment on above: <100 mg/dl [id number] 0-129 mg/dl NEAR OR ABOVE [id number] mg/dl BORDERLINE [id number] mg/dl HIGH>190 mg/dl VERY HIGH Cholesterol in VLDL Calc [Ma ss/Vol]on 03-10-2024 Cholesterol in VLDL [Mass/Vol] Cholesterol in VLDL [Mass/volume] in Serum or Plasma by calculation [facility] Eosinophils/100 WBC Auto (Bl d)on 03-10-2024 Eosinophils/100 WBC (Bld) Automated eosinophil % 0.9-7.0 [facility] Erythrocyte distribution wid th Auto (RBC) [Ratio]on 03-10-2024 Erythrocyte distribution width (RBC) [Ratio] Erythrocyte distribution width [Ratio] by Automated count 11.0-15.0 [facility] Estimated glomerular filtrat ion rate (GFR) non- Americanon 03-10-2024 GFR/1.73 sq M.predicted among non-blacks MDRD (S/P/Bld) [Vol rate/Area] Estimated glomerular filtration rate (GFR) non- >=60 mL/min/1.73m 2 [facility] Globulin Calc (S) [Mass/Vol] on 03-10-2024 Globulin (S) [Mass/Vol] Serum globulin measurement by calculation (mass/volume) [facility] Hematocrit Auto (Bld) [Volum e fraction]on 03-10-2024 Hematocrit (Bld) [Volume fraction] Hematocrit [Volume Fraction] of Blood by Automated count 42.0-54.0 [facility] Hemoglobin [Mass/volume] in Bloodon 03-10-2024 Hemoglobin (Bld) [Mass/Vol] Hemoglobin [Mass/volume] in Blood 14.0-18.0 [facility] Laboratory - Chemistry and C hemistry - challengeon 03-10-2024 Albumin [Mass/Vol] 3.5 g/dL 3.4-5.0 [facility] ALP [Catalytic activity/Vol] 58 U/L 46-116 [facility] ALT [Catalytic activity/Vol] 32 U/L 16-63 [facility] AST [Catalytic activity/Vol] 16 U/L 15-37 [facility] Bilirubin [Mass/Vol] 0.8 mg/dL 0.2-1.0 [facility] Calcium [Mass/Vol] 10.4 mg/dL High 8.5-10.1 [facility] Chloride [Moles/Vol] 107 mmol/L 98-107 [facility] Cholesterol [Mass/Vol] 199 mg/dL <=200 [facility] Cholesterol in HDL [Mass/Vol] 53 mg/dL 40-60 [facility] Comment on above: > or =60 mg/dl - LOW CARDIOVASCULAR RISK<40 mg/dl - HIGH CARDIOVASCULAR RISK CO2 [Moles/Vol] 28.7 mmol/L 21.0-32.0 [facility] Creatinine [Mass/Vol] 0.85 mg/dL 0.70-1.30 [facility] GFR/1.73 sq M.predicted MDRD (S/P/Bld) [Vol rate/Area] mL/min/{1.73_m2} >=60 mL/min/1.73m 2 [facility] Glucose [Mass/Vol] 100 mg/dL 74-106 [facility] Potassium [Moles/Vol] 4.0 mmol/L 3.5-5.1 [facility] Protein [Mass/Vol] 6.8 g/dL 6.4-8.2 [facility] Sodium [Moles/Vol] 143 mmol/L 136-145 [facility] Triglyceride [Mass/Vol] 100 mg/dL <=150 [facility] TSH Qn 0.915 m[IU]/L 0.358-3.740 [facility] Urea nitrogen [Mass/Vol] 15.0 mg/dL 7.0-18.0 [facility] Urea nitrogen/Creatinine [Mass ratio] 17.6 mg/mg [facility] Laboratory - Hematology and Cell countson 03-10-2024 Immature granulocytes/100 WBC (Bld) 0.2 % 0.0-0.5 [facility] Leukocytes [#/volume] correc evelyne for nucleated erythrocytes in Blood by Automated counon 03-10-2024 WBC corrected for nucl RBC Auto (Bld) [#/Vol] Leukocytes [#/volume] corrected for nucleated erythrocytes in Blood by Automated coun 4.0-11.0 [facility] Lymphocytes Auto (Bld) [#/Vo l]on 03-10-2024 Lymphocytes (Bld) [#/Vol] Lymphocytes [#/volume] in Blood by Automated count 1.2-3.8 [facility] Lymphocytes/100 WBC Auto (Bl d)on 03-10-2024 Lymphocytes/100 WBC (Bld) Lymphocytes/100 leukocytes in Blood by Automated count 20.5-60.0 [facility] MCH Auto (RBC) [Entitic mass ]on 03-10-2024 MCH (RBC) [Entitic mass] MCH [Entitic mass] by Automated count 25.9-34.0 [facility] MCHC Auto (RBC) [Mass/Vol]on 03-10-2024 MCHC (RBC) [Mass/Vol] MCHC [Mass/volume] by Automated count 29.9-35.2 [facility] MCV Auto (RBC) [Entitic vol] on 03-10-2024 MCV (RBC) [Entitic vol] MCV [Entitic volume] by Automated count High 80.0-94.0 [facility] Monocytes Auto (Bld) [#/Vol] on 03-10-2024 Monocytes (Bld) [#/Vol] Automated blood monocyte count 0.3-0.8 [facility] Monocytes/100 WBC Auto (Bld) on 03-10-2024 Monocytes/100 WBC (Bld) Automated monocyte % 1.7-12.0 [facility] Neutrophils Auto (Bld) [#/Vo l]on 03-10-2024 Neutrophils (Bld) [#/Vol] Neutrophils [#/volume] in Blood by Automated count 1.4-6.5 [facility] Neutrophils/100 WBC Auto (Bl d)on 03-10-2024 Neutrophils/100 WBC (Bld) Automated neutrophil % 43.0-75.0 [facility] No Panel Informationon 03-10 Eosinophils # (Auto) 0.2 10 3/uL 0.0-0.7 [facility] Immature Granulocyte # (Auto) 0.01 10 3/uL 0.00-0.03 [facility] Prostate Specific Antigen Screen 1.32 ng/mL <=4.00 [facility] Platelet mean volume Auto (B ld) [Entitic vol]on 03-10-2024 Platelet mean volume (Bld) [Entitic vol] Platelet mean volume [Entitic volume] in Blood by Automated count Low 9.5-13.5 [facility] Platelets Auto (Bld) [#/Vol] on 03-10-2024 Platelets (Bld) [#/Vol] Platelets [#/volume] in Blood by Automated count 150-450 [facility] RBC Auto (Bld) [#/Vol]on RBC (Bld) [#/Vol] Erythrocytes [#/volume] in Blood by Automated count Low 4.70-6.10 [facility] Serum or plasma albumin/glob ulin mass ratioon 03-10-2024 Albumin/Globulin [Mass ratio] Serum or plasma albumin/globulin mass ratio [facility] Serum or plasma anion gap de terminationon 03-10-2024 Anion gap [Moles/Vol] Serum or plasma anion gap determination [facility] Serum or plasma total choles terol/high density lipoprotein (HDL) cholesterol mass ranjit 03-10-2024 Cholesterol.total/Ch olesterol in HDL [Mass ratio] Serum or plasma total cholesterol/high density lipoprotein (HDL) cholesterol mass rat [facility] Comment on above: 3.3 - 4.4 LOW RISK4. 4 - 7.1 AVERAGE RISK7.1 - 11.0 MODERATE RISK>11.0 HIGH RISK EMG 2 Extremitieson 02-24-20 EMG/NCS BLE Severe sensory-motor polyneuropathy. [facility] NVC 9-10 Nerveson 02-24-2024 EMG/NCS BLE Severe sensory-motor polyneuropathy. [facility] HPon 12-09-2023 [facility] Electrophysiology Consult Note Reason for visit: [...] This was followed up with [facility] with [facility] protocol which was negative for inducible [...] CVL report IMPRESSION: Successful direct-current cardioversion with zoroastrianism of sinus rhythm from atrial fibrillation with no immediate complication. 03/22/12: EPS EP study by Dr. Carmen Flores on 03/22/2012 for evaluation of wide-complex tachycardia in the setting of normal ejection fraction revealed normal HV interval but no evidence of any AH jump suggestive of dual AV node physiology and no tachycardia was induced. This was followed up with [facility] with [facility] protocol which was negative for inducible [...] CARDIAC CATHETERIZATION (more content not included)... Normal [facility] NURSNOTEon 12-09-2023 NURSNOTE RN educated pt on d/ c instructions. RN encouraged pt to voice any questions or concerns. Pt verbalizes no questions or concerns at this time. Pt walked off of unit with all of belongings. Normal [facility] 36on 12-02-2023 36 Regarding echo resul t from 11/24/2023: NILA Avitia MA; Alpesh Jenkins MD Severe biatrial enlargement LV systolic function low end of normal 50-55% RV normal size and function, normal rt sided pressures- no fluid overload LM on patient's VM. Normal [facility] Basophils Auto (Bld) [#/Vol] on 12-01-2023 Basophils (Bld) [#/Vol] 0.0 10 3/uL 0.0-0.1 [facility] Basophils/100 WBC Auto (Bld) on 12-01-2023 Basophils/100 WBC (Bld) 0.5 % 0.2-2.0 [facility] Eosinophils/100 WBC Auto (Bl d)on 12-01-2023 Eosinophils/100 WBC (Bld) 1.1 % 0.9-7.0 [facility] Erythrocyte distribution wid th Auto (RBC) [Ratio]on 12-01-2023 Erythrocyte distribution width (RBC) [Ratio] 12.8 % 11.0-15.0 [facility] Hematocrit Auto (Bld) [Volum e fraction]on 12-01-2023 Hematocrit (Bld) [Volume fraction] 40.8 % Low 42.0-54.0 [facility] Hemoglobin [Mass/volume] in Bloodon 12-01-2023 Hemoglobin (Bld) [Mass/Vol] 13.6 g/dL Low 14.0-18.0 [facility] Laboratory - Hematology and Cell countson 12-01-2023 Immature granulocytes/100 WBC (Bld) 0.3 % 0.0-0.5 [facility] Leukocytes [#/volume] correc evelyne for nucleated erythrocytes in Blood by Automated counon 12-01-2023 WBC corrected for nucl RBC Auto (Bld) [#/Vol] 6.4 10 3/uL 4.0-11.0 [facility] Lymphocytes Auto (Bld) [#/Vo l]on 12-01-2023 Lymphocytes (Bld) [#/Vol] 1.3 10 3/uL 1.2-3.8 [facility] Lymphocytes/100 WBC Auto (Bl d)on 12-01-2023 Lymphocytes/100 WBC (Bld) 20.7 % 20.5-60.0 [facility] MCH Auto (RBC) [Entitic mass ]on 12-01-2023 MCH (RBC) [Entitic mass] 31.7 pg 25.9-34.0 [facility] MCHC Auto (RBC) [Mass/Vol]on 12-01-2023 MCHC (RBC) [Mass/Vol] 33.3 g/dL 29.9-35.2 [facility] MCV Auto (RBC) [Entitic vol] on 12-01-2023 MCV (RBC) [Entitic vol] 95.1 fL High 80.0-94.0 [facility] Monocytes Auto (Bld) [#/Vol] on 12-01-2023 Monocytes (Bld) [#/Vol] 0.8 10 3/uL 0.3-0.8 [facility] Monocytes/100 WBC Auto (Bld) on 12-01-2023 Monocytes/100 WBC (Bld) 11.8 % 1.7-12.0 [facility] Neutrophils Auto (Bld) [#/Vo l]on 12-01-2023 Neutrophils (Bld) [#/Vol] 4.2 10 3/uL 1.4-6.5 [facility] Neutrophils/100 WBC Auto (Bl d)on 12-01-2023 Neutrophils/100 WBC (Bld) 65.6 % 43.0-75.0 [facility] No Panel Informationon 11-30 Eosinophils # (Auto) 0.1 10 3/uL 0.0-0.7 [facility] Immature Granulocyte # (Auto) 0.02 10 3/uL 0.00-0.03 [facility] Platelet mean volume Auto (B ld) [Entitic vol]on 12-01-2023 Platelet mean volume (Bld) [Entitic vol] 8.9 fL Low 9.5-13.5 [facility] Platelets Auto (Bld) [#/Vol] on 12-01-2023 Platelets (Bld) [#/Vol] 265 10 3/uL 150-450 [facility] RBC Auto (Bld) [#/Vol]on RBC (Bld) [#/Vol] 4.29 10 6/uL Low 4.70-6.10 [facility] Office Visiton 11-10-2023 Follow-up visit [id number] Lucinda Sharma 1950 M Date Provider Department Center 11/10/2023 Edward-DREA LINO [facility] Family History Problem Relation Age of Onset Coronary artery disease Other Hypertension Other Family Status - Relation Status Age at Other Level of Service:66146 [place] OFFICE/OUTPATIENT ESTABLISHED MOD MDM 30 MIN Reason for Visit and Comments: Atrial Fibrillation [80] Normal [facility] CNOVon 01-13-2023 CNOV Office Visit ([facility] ) BANG SHARMA ([id number]) 1950 M Date Time Provider Department 01/13/23 2:30 PM HARESH PINEDA [facility] During your visit today, we recorded the following information about you: Haresh Pineda MD 01/13/2023 4:19 PM Signed Orthopaedic Surgery Follow-Up Clinic Note Surgery/Date: 08/27/2017 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 (CPT 72538 - 22) Placement of Prophylactic Carbon Fiber Tibial Nail, Right Tibia (CPT 21394) High Speed Denio and Adjuvant Treatment with 10% H202 (CPT 53034) Neruolysis and Dissection of Deep Peroneal Nerve (CPT 22510) Right Iliac Crest Marrow Aspiration/Ozone ( CPT 24750) Diagnosis: Right Tibial Diaphysis Cartilage Lesion with [...] the date of the service which included [id number] patient care, completing clinical documentation, obtaining and/or [...] information added by medical student, resident, nurse, BANKING PARALEGAL/PAJayC that I have placed my signature directly below I have verified and either instructed them to document in a scribe function or document appropriately in the chart during the patient visit. Haresh Beavers (more content not included)... [facility] XR ANKLE 3V AP/LAT/OBL LTon 01-13-2023 XR ANKLE 3V AP/LAT/OBL LT * * *Final Report* * * DATE OF EXAM: Jan 13 2023 2:19PM AOX 5298 - XR ANKLE 3V AP/LAT/OBL LT / PROCEDURE REASON: multiple diagnoses * * * * Physician Interpretation * * * * HISTORY: Chondrosarcoma (HCC) TECHNOLOGIST PROVIDED HISTORY (if applicable): follow up right lower leg (accession [id number]), left ankle pain and popping sensation (accession [id number]) TECHNIQUE: XR TIBIA FIBULA 2V AP/LAT RT, [...] SIGNIFICANT CHANGE. NO RADIOGRAPHIC SIGNS OF RECURRENCE. Business Development Agent: PSCB Transcribe Date/Time: Jan 13 2023 4:43P Dictated by : JULISA WEAVER MD This examination was interpreted and the report reviewed and electronically signed by: JULISA WEAVER MD on Jan 13 2023 4:53PM EST [id number] Normal [facility] XR CHEST 2V FRONTAL/LATon XR [...] tissues: Spine degenerative changes IMPRESSION: See result Business Development Agent: BARBARA Transcribe Date/Time: Jan 15 2023 3:13P Dictated by : RIKKI PEDERSEN MD This examination was interpreted and the report reviewed and electronically signed by: RIKKI PEDERSEN MD on Jan 15 2023 3:14PM EST [id number] Normal [facility] XR TIBIA FIBULA 2V AP/LAT [...] applicable): follow up right lower leg (accession [id number]), left ankle pain and popping sensation (accession [id number]) TECHNIQUE: XR TIBIA FIBULA 2V AP/LAT RT, [...] SIGNIFICANT CHANGE. NO RADIOGRAPHIC SIGNS OF RECURRENCE. Business Development Agent: [facility] Transcribe Date/Time: Jan 13 2023 4:43P Dictated by : JULISA WEAVER MD This examination was interpreted and the report reviewed and electronically signed by: JULISA WEAVER MD on Jan 13 2023 4:53PM EST [id number] Normal [facility] FLECAINEon 06-24-2022 FLECAINIDE 0.39 ug/ml Normal 0.20 - 1.00 [facility] Comment on above: Result Comment: Flec ainide reported as flecainide acetate. The reference range also is defined as flecaininde acetate. This test was developed and its performance characteristics determined by [employer]. It has not been cleared or approved by the Food and Drug Administration. Performed By: #### T SH, BMP, LIPID, ALT #### [facility] [address] [place] [address] Dr. Fidel Paige CBC AUTO DIFFon 06-09-2022 BASO # 0.0 103/ul Normal 0.0-0.1 [facility] Comment on above: Performed By: #### C BC #### [facility] [address] [place] [address] Dr. Fidel Paige Basophils/100 WBC (Bld) 0.6 % Normal 0.2-2.0 [facility] Comment on above: Performed By: #### C BC #### [facility] [address] [place] [address] Dr. Fidel Paige EO # 0.1 103/ul Normal 0.0-0.7 [facility] Comment on above: Performed By: #### C BC #### [facility] [address] [place] [address] Dr. Fidel Paige Eosinophils/100 WBC (Bld) 2.8 % Normal 0.9-7.0 [facility] Comment on above: Performed By: #### C BC #### [facility] [address] [place] [address] Dr. Fidel Paige Erythrocyte distribution width (RBC) [Ratio] 12.8 % Normal 11.0-15.0 [facility] Comment on above: Performed By: #### C BC #### [facility] [address] [place] [address] Dr. Fidel Paige Hematocrit (Bld) [Volume fraction] 41.9 % Critically low 42.0-54.0 [facility] Comment on above: Performed By: #### C BC #### [facility] [address] [place] [address] Dr. Fidel Paige Hemoglobin (Bld) [Mass/Vol] 14.1 g/dL Normal 14.0-18.0 [facility] Comment on above: Performed By: #### C BC #### [facility] [address] [place] [address] Dr. Fidel Paige IG # 0.01 10e3/ul Normal 0.00-0.03 [facility] Comment on above: Performed By: #### C BC #### [facility] [address] [place] [address] Dr. Fidel Paige IG % 0.2 % Normal 0.0-0.5 [facility] Comment on above: Performed By: #### C BC #### [facility] [address] [place] [address] Dr. Fidel Paige LYMPH # 1.4 103/ul Normal 1.2-3.8 [facility] Comment on above: Performed By: #### C BC #### [facility] [address] [place] [address] Dr. Fidel Paige Lymphocytes/100 WBC (Bld) 29.2 % Normal 20.5-60.0 [facility] Comment on above: Performed By: #### C BC #### [facility] [address] [place] [address] Dr. Fidel Paige MANUAL DIFF REQ NO Normal [facility] Comment on above: Performed By: #### C BC #### [facility] [address] [place] [address] Dr. Fidel Paige MCH (RBC) [Entitic mass] 31.3 pg Normal 25.9-34.0 [facility] Comment on above: Performed By: #### C BC #### [facility] [address] [place] [address] Dr. Fidel Paige MCHC (RBC) [Mass/Vol] 33.7 g/dL Normal 29.9-35.2 [facility] Comment on above: Performed By: #### C BC #### [facility] [address] [address] [address] Fidel Paige MCV (RBC) [Entitic vol] 92.9 fL Normal 80.0-94.0 [facility] Comment on above: Performed By: #### C BC #### [facility] [address] [address] [address] Fidel Paige MONO # 0.7 103/ul Normal 0.3-0.8 [facility] Comment on above: Performed By: #### C BC #### [facility] [address] [place] [address] Dr. Fidel Paige Monocytes/100 WBC (Bld) 13.4 % Critically high 1.7-12.0 [facility] Comment on above: Performed By: #### C BC #### [facility] [address] [place] [address] Dr. Fidel Paige NEUT # 2.7 103/ul Normal 1.4-6.5 [facility] Comment on above: Performed By: #### C BC #### [facility] [address] [place] [address] Dr. Fidel Paige Neutrophils/100 WBC (Bld) 53.8 % Normal 43.0-75.0 [facility] Comment on above: Performed By: #### C BC #### [facility] [address] [address] [address] Fidel Paige Platelet mean volume (Bld) [Entitic vol] 8.7 fL Critically low 9.5-13.5 [facility] Comment on above: Performed By: #### C BC #### [facility] [address] [place] [address] Dr. Fidel Paige PLT 278 103/ul Normal 150-450 [facility] Comment on above: Performed By: #### C BC #### [facility] [address] [place] [address] Dr. Fidel Paige RBC 4.51 106/ul Critically low 4.70-6.10 [facility] Comment on above: Performed By: #### C BC #### [facility] [address] [place] [address] Dr. Fidel Paige WBC 4.9 103/ul Normal 4.0-11.0 [facility] Comment on above: Performed By: #### C BC #### [facility] [address] [place] [address] Dr. Fidel Paige MAGNESIUMon 06-09-2022 Magnesium [Mass/Vol] 2.0 mg/dL Normal 1.8-2.4 [facility] Comment on above: Performed By: #### T SH MG, BMP #### [facility] [address] [place] [address] Dr. Fidel Paige PROF CHEM 8 (BAS METB)on Anion gap [Moles/Vol] 8.2 mmol/L Normal [facility] Comment on above: Performed By: #### T SH, MG, BMP #### [facility] [address] [place] [address] Dr. Fidel Paige Calcium [Mass/Vol] 10.2 mg/dL Critically high 8.5-10.1 [facility] Comment on above: Performed By: #### T SH, MG, BMP #### [facility] [address] [place] [address] Dr. Fidel Paige Chloride [Moles/Vol] 105 mmol/L Normal 98-107 [facility] Comment on above: Performed By: #### T SH, MG, BMP #### [facility] [address] [place] [address] Dr. Fidel Paige CO2 [Moles/Vol] 29.6 mmol/L Normal 21.0-32.0 [facility] Comment on above: Performed By: #### T SH, MG, BMP #### [facility] [address] [place] [address] Dr. Fidel Paige Creatinine [Mass/Vol] 0.81 mg/dL Normal 0.70-1.30 [facility] Comment on above: Performed By: #### T SH, MG, BMP #### [facility] [address] [address] [address] Fidel Paige EGFR-AF KITTITIAN >60 Normal >=60 [facility] Comment on above: Performed By: #### T SH, MG, BMP #### [facility] [address] [address] [address] Fidel Paige EGFR-NON AF KITTITIAN >60 Normal >=60 [facility] Comment on above: Performed By: #### T SH, MG, BMP #### [facility] [address] [address] [address] Fidel Paige Glucose [Mass/Vol] 100 mg/dL Normal 74-106 [facility] Comment on above: Performed By: #### T SH, MG, BMP #### [facility] [address] [place] [address] Dr. Fidel Paige Potassium [Moles/Vol] 3.8 mmol/L Normal 3.5-5.1 [facility] Comment on above: Performed By: #### T SH, MG, BMP #### [facility] [address] [address] [address] Fidel Paige Sodium [Moles/Vol] 139 mmol/L Normal 136-145 [facility] Comment on above: Performed By: #### T SH, MG, BMP #### [facility] [address] [address] [address] Fidel Paige Urea nitrogen [Mass/Vol] 12.0 mg/dL Normal 7.0-18.0 [facility] Comment on above: Performed By: #### T SH, MG, BMP #### [facility] [address] [address] [address] Fidel Paige Urea nitrogen/Creatinine [Mass ratio] 14.8 mg/mg Normal [facility] Comment on above: Performed By: #### T SH, MG, BMP #### [facility] [address] [place] [address] Dr. Fidel Paige TSHon 06-09-2022 TSH 0.891 uIU/mL Normal 0.358-3.740 [facility] Comment on above: Performed By: #### T SH, MG, BMP #### [facility] [address] [place] [address] Dr. Fidel Paige CBC AUTO DIFFon 02-07-2022 BASO # 0.0 103/ul Normal 0.0-0.1 [facility] Comment on above: Performed By: #### T SH, BMP, LIPID, ALT #### [facility] [address] [place] [address] Dr. Fidel Paige Basophils/100 WBC (Bld) 0.3 % Normal 0.2-2.0 [facility] Comment on above: Performed By: #### T SH, BMP, LIPID, ALT #### [facility] [address] [place] [address] Dr. Fidel Paige EO # 0.1 103/ul Normal 0.0-0.7 [facility] Comment on above: Performed By: #### T SH, BMP, LIPID, ALT #### [facility] [address] [place] [address] Dr. Fidel Paige Eosinophils/100 WBC (Bld) 2.1 % Normal 0.9-7.0 [facility] Comment on above: Performed By: #### T SH, BMP, LIPID, ALT #### [facility] [address] [place] [address] Dr. Fidel Paige Erythrocyte distribution width (RBC) [Ratio] 13.1 % Normal 11.0-15.0 [facility] Comment on above: Performed By: #### T SH, BMP, LIPID, ALT #### [facility] [address] [place] [address] Dr. Fidel Paige Hematocrit (Bld) [Volume fraction] 45.2 % Normal 42.0-54.0 [facility] Comment on above: Performed By: #### T SH, BMP, LIPID, ALT #### [facility] [address] [place] [address] Dr. Fidel Paige Hemoglobin (Bld) [Mass/Vol] 14.8 g/dL Normal 14.0-18.0 [facility] Comment on above: Performed By: #### T SH, BMP, LIPID, ALT #### [facility] [address] [address] [address] Fidel Paige IG # 0.02 10e3/ul Normal 0.00-0.03 [facility] Comment on above: Performed By: #### T SH, BMP, LIPID, ALT #### [facility] [address] [place] [address] Dr. Fidel Paige IG % 0.3 % Normal 0.0-0.5 [facility] Comment on above: Performed By: #### T SH, BMP, LIPID, ALT #### [facility] [address] [place] [address] Dr. Fidel Paige LYMPH # 1.4 103/ul Normal 1.2-3.8 [facility] Comment on above: Performed By: #### T SH, BMP, LIPID, ALT #### [facility] [address] [place] [address] Dr. Fidel Paige Lymphocytes/100 WBC (Bld) 23.2 % Normal 20.5-60.0 [facility] Comment on above: Performed By: #### T SH, BMP, LIPID, ALT #### [facility] [address] [place] [address] Dr. Fidel Paige MANUAL DIFF REQ NO Normal [facility] Comment on above: Performed By: #### T SH, BMP, LIPID, ALT #### [facility] [address] [place] [address] Dr. Fidel Paige MCH (RBC) [Entitic mass] 31.6 pg Normal 25.9-34.0 [facility] Comment on above: Performed By: #### T SH, BMP, LIPID, ALT #### [facility] [address] [place] [address] Dr. Fidel Paige MCHC (RBC) [Mass/Vol] 32.7 g/dL Normal 29.9-35.2 [facility] Comment on above: Performed By: #### T SH, BMP, LIPID, ALT #### [facility] [address] [place] [address] Dr. Fidel Paige MCV (RBC) [Entitic vol] 96.6 fL Critically high 80.0-94.0 [facility] Comment on above: Performed By: #### T SH, BMP, LIPID, ALT #### [facility] [address] [place] [address] Dr. Fidel Paige MONO # 0.7 103/ul Normal 0.3-0.8 [facility] Comment on above: Performed By: #### T SH, BMP, LIPID, ALT #### [facility] [address] [place] [address] Dr. Fidel Paige Monocytes/100 WBC (Bld) 11.7 % Normal 1.7-12.0 [facility] Comment on above: Performed By: #### T SH, BMP, LIPID, ALT #### [facility] [address] [place] [address] Dr. Fidel Paige NEUT # 3.6 103/ul Normal 1.4-6.5 [facility] Comment on above: Performed By: #### T SH, BMP, LIPID, ALT #### [facility] [address] [place] [address] Dr. Fidel Paige Neutrophils/100 WBC (Bld) 62.4 % Normal 43.0-75.0 [facility] Comment on above: Performed By: #### T SH, BMP, LIPID, ALT #### [facility] [address] [place] [address] Dr. Fidel Paige Platelet mean volume (Bld) [Entitic vol] 8.8 fL Critically low 9.5-13.5 [facility] Comment on above: Performed By: #### T SH, BMP, LIPID, ALT #### [facility] [address] [place] [address] Dr. Fidel Paige PLT 283 103/ul Normal 150-450 [facility] Comment on above: Performed By: #### T SH, BMP, LIPID, ALT #### [facility] [address] [place] [address] Dr. Fidel Paige RBC 4.68 106/ul Critically low 4.70-6.10 [facility] Comment on above: Performed By: #### T SH, BMP, LIPID, ALT #### [facility] [address] [address] [address] Fidel Paige WBC 5.8 103/ul Normal 4.0-11.0 [facility] Comment on above: Performed By: #### T SH, BMP, LIPID, ALT #### [facility] [address] [address] [address] Fidel Paige LIPID PROFILEon 02-07-2022 CHOL-HDL RATIO NORM SEE BELOW Normal [facility] Comment on above: Result Comment: 3.3 - 4.4 LOW RISK 4.4 - 7.1 AVERAGE RISK 7.1 - 11.0 MODERATE RISK >11.0 HIGH RISK Performed By: #### T SH, BMP, LIPID, ALT #### [facility] [address] [place] [address] Dr. Fidel Paige Cholesterol [Mass/Vol] 191 mg/dL Normal <=200 [facility] Comment on above: Performed By: #### T SH, BMP, LIPID, ALT #### [facility] [address] [address] [address] Fidel Paige Cholesterol in HDL [Mass/Vol] 42 mg/dL Normal 40-60 [facility] Comment on above: Performed By: #### T SH, BMP, LIPID, ALT #### [facility] [address] [address] [address] Fidel Paige Cholesterol in LDL [Mass/Vol] 118.0 mg/dL Normal [facility] Comment on above: Performed By: #### T SH, BMP, LIPID, ALT #### [facility] [address] [address] [address] Fidel Paige Cholesterol.total/Ch olesterol in HDL [Mass ratio] 4.5 {ratio} Normal [facility] Comment on above: Performed By: #### T SH, BMP, LIPID, ALT #### [facility] [address] [place] [address] Dr. Fidel Paige HDL NORMAL > or = 60 mg/dl - LO W CARDIOVASCULAR RISK <40 mg/dl - HIGH CARDIOVASCULAR RISK Normal [facility] Comment on above: Performed By: #### T SH, BMP, LIPID, ALT #### [facility] [address] [address] [address] Fidel Paige LDL CALC NORMAL SEE BELOW Normal [facility] Comment on above: Result Comment: <100 mg/dl OPTIMAL 100 - 129 mg/dl NEAR OR ABOVE OPTIMAL 130 - 159 mg/dl BORDERLINE HIGH 160 - 189 mg/dl HIGH >190 mg/dl VERY HIGH Performed By: #### T SH, BMP, LIPID, ALT #### [facility] [address] [address] [address] Fidel Paige Triglyceride [Mass/Vol] 155 mg/dL Critically high <=150 [facility] Comment on above: Performed By: #### T SH, BMP, LIPID, ALT #### [facility] [address] [address] [address] Fidel Paige VLDL CALC 31.0 mg/dL Normal [facility] Comment on above: Performed By: #### T SH, BMP, LIPID, ALT #### [facility] [address] [address] [address] Fidel Paige PROF CHEM 8 (BAS METB)on Anion gap [Moles/Vol] 11.0 mmol/L Normal [facility] Comment on above: Performed By: #### T SH, BMP, LIPID, ALT #### [facility] [address] [address] [address] Fidel Paige Calcium [Mass/Vol] 10.1 mg/dL Normal 8.5-10.1 [facility] Comment on above: Performed By: #### T SH, BMP, LIPID, ALT #### [facility] [address] [place] [address] Dr. Fidel Paige Chloride [Moles/Vol] 105 mmol/L Normal 98-107 [facility] Comment on above: Performed By: #### T SH, BMP, LIPID, ALT #### [facility] [address] [address] [address] Fidel Paige CO2 [Moles/Vol] 29.0 mmol/L Normal 21.0-32.0 [facility] Comment on above: Performed By: #### T SH, BMP, LIPID, ALT #### [facility] [address] [address] [address] Fidel Paige Creatinine [Mass/Vol] 0.85 mg/dL Normal 0.70-1.30 [facility] Comment on above: Performed By: #### T SH, BMP, LIPID, ALT #### [facility] [address] [address] [address] Fidel Paige EGFR-AF KITTITIAN >60 Normal >=60 [facility] Comment on above: Performed By: #### T SH, BMP, LIPID, ALT #### [facility] [address] [address] [address] Fidel Paige EGFR-NON AF KITTITIAN >60 Normal >=60 [facility] Comment on above: Performed By: #### T SH, BMP, LIPID, ALT #### [facility] [address] [address] [address] Fidel Paige Glucose [Mass/Vol] 101 mg/dL Normal 74-106 [facility] Comment on above: Performed By: #### T SH, BMP, LIPID, ALT #### [facility] [address] [address] [address] Fidel Paige Potassium [Moles/Vol] 4.0 mmol/L Normal 3.5-5.1 [facility] Comment on above: Performed By: #### T SH, BMP, LIPID, ALT #### [facility] [address] [address] [address] Fidel Paige Sodium [Moles/Vol] 141 mmol/L Normal 136-145 [facility] Comment on above: Performed By: #### T SH, BMP, LIPID, ALT #### [facility] [address] [address] [address] Fidel Paige Urea nitrogen [Mass/Vol] 13.0 mg/dL Normal 7.0-18.0 [facility] Comment on above: Performed By: #### T SH, BMP, LIPID, ALT #### [facility] [address] [address] [address] Fidel Paige Urea nitrogen/Creatinine [Mass ratio] 15.3 mg/mg Normal [facility] Comment on above: Performed By: #### T SH, BMP, LIPID, ALT #### [facility] [address] [address] [address] Fidel Paige SGPTon 02-07-2022 ALT [Catalytic activity/Vol] 26 U/L Normal 16-63 [facility] Comment on above: Performed By: #### T SH, BMP, LIPID, ALT #### [facility] [address] [address] [address] Fidel Paige TSHon 02-07-2022 TSH 0.856 uIU/mL Normal 0.358-3.740 [facility] Comment on above: Performed By: #### T SH, BMP, LIPID, ALT #### [facility] [address] [place], [place] [address] Dr. Fidel Paige XR CHEST 2V FRONTAL/LATon [facility] US VENOUS DOPPLER L Cristian US VENOUS [...] by: TIFFANY GUPTA Date: 2021-10-10 12:51 Normal [facility] Vital Signs Date Time Vital Sign Value Performing Clinician Facility 04-27-2024 15:30-0500 Body height 185.42 cm [facility] 04-27-2024 15:30-050 Body mass index (BMI) [Ratio] 34.3 kg/m2 [facility] 04-27-2024 15:30-050 Body weight 118.16 kg [facility] 04-27-2024 15:30-0500 Diastolic blood pressure 79 mm[Hg] [facility] 04-27-2024 15:30-0500 Heart rate 72 /min [facility] 04-27-2024 15:30-0500 Respiratory rate 20 /min [facility] 04-27-2024 15:30-0500 Systolic blood pressure 135 mm[Hg] [facility] 04-05-2024 13:44-0500 Body height 189.2 cm Amanda Rut DO Work Phone: [facility] 04-05-2024 13:44-0500 Body mass index (BMI) [Ratio] 31.92 kg/m2 Amanda Rut DO Work Phone: [facility] 04-05-2024 13:44-0500 Body weight 114.31 kg Amanda Rut DO Work Phone: [facility] 04-05-2024 13:44-0500 Diastolic blood pressure 86 mm[Hg] Amanda Rut DO Work Phone: [facility] 04-05-2024 13:44-0500 Heart rate 63 /min Amanda Rut DO Work Phone: [facility] 04-05-2024 13:44-0500 SaO2% (BldA) [Mass fraction] 97 % Amanda Rut DO Work Phone: [facility] 04-05-2024 13:44-0500 Systolic blood pressure 142 mm[Hg] Amanda Rut DO Work Phone: [facility] 03-11-2024 11:25-0500 Body mass index (BMI) [Ratio] 34 kg/m2 [facility] 03-11-2024 11:25-0500 Diastolic blood pressure 89 mm[Hg] [facility] 03-11-2024 11:25-0500 Systolic blood pressure 139 mm[Hg] [facility] 03-11-2024 11:04-0500 Body height 185.42 cm [facility] 03-11-2024 11:04-0500 Body weight 116.8 kg [facility] 03-11-2024 11:04-0500 Heart rate 74 /min [facility] 03-11-2024 11:04-0500 Respiratory rate 12 /min [facility] 02-22-2024 10:41-0500 Body height 189.2 cm Amanda Rut DO Work Phone: [facility] 02-22-2024 10:41-0500 Body mass index (BMI) [Ratio] 32.18 kg/m2 Amanda Rut DO Work Phone: [facility] 02-22-2024 10:41-0500 Body weight 115.21 kg Amanda Rut DO Work Phone: [facility] 02-22-2024 10:41-0500 Diastolic blood pressure 86 mm[Hg] Amanda Rut DO Work Phone: [facility] 02-22-2024 10:41-0500 Heart rate 88 /min Amanda Rut DO Work Phone: [facility] 02-22-2024 10:41-0500 SaO2% (BldA) [Mass fraction] 99 % Amanda Rut DO Work Phone: [facility] 02-22-2024 10:41-0500 Systolic blood pressure 142 mm[Hg] Amanda Rut DO Work Phone: [facility] 12-03-2023 11:04-0400 Body height 185.42 cm [facility] 12-03-2023 11:04-0400 Body mass index (BMI) [Ratio] 33.8 kg/m2 [facility] 12-03-2023 11:04-0400 Body weight 116.28 kg [facility] 12-03-2023 11:04-0400 Diastolic blood pressure 86 mm[Hg] [facility] 12-03-2023 11:04-0400 Heart rate 71 /min [facility] 12-03-2023 11:04-0400 Respiratory rate 12 /min [facility] 12-03-2023 11:04-0400 Systolic blood pressure 130 mm[Hg] [facility] Encounters Encounter Date Encounter Type Care Provider Facility Start: 07-04-2024 End: 07-04-2024 ambulatory MILTON DEGROOT Not Available Start: 07-01-2024 ambulatory [facility] Start: 06-14-2024 End: 06-14-2024 ambulatory [facility] Start: 05-03-2024 ambulatory [facility] Start: 04-27-2024 End: 04-27-2024 ambulatory [facility] Work Phone: Start: 04-27-2024 End: 04-27-2024 Patient encounter procedure [facility] Work Phone: Start: 04-07-2024 End: 04-07-2024 Clinisync Result Encounter Amanda Bettencourt DO Work Phone: [facility] Unsolicited Start: 04-07-2024 End: 04-07-2024 Clinisync Result Encounter Amanda Bettencourt DO Work Phone: [employer] External Department Unsolicited Start: 04-07-2024 Non-patient / Non-visit [facility] Work Phone: Start: 04-05-2024 End: 04-05-2024 Bamboo flowsheet Amanda Bettencourt DO Work Phone: [facility] [facility] Start: 04-05-2024 End: 04-05-2024 Bamboo flowsheet Amanda Rut DO Work Phone: [facility] Start: 04-05-2024 End: 04-05-2024 Office outpatient visit 25 minutes Amanda Bettencourt DO Work Phone: [facility] Comment on above: Idiopathic periphera l neuropathy (Primary Dx); Numbness and tingling; 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; Weakness Start: 04-05-2024 End: 04-05-2024 ambulatory AMANDA BETTENCOURT Not Available Start: 03-23-2024 ambulatory [facility] Start: 03-15-2024 End: 03-15-2024 ambulatory DREA [facility] Start: 03-11-2024 End: 03-11-2024 Patient encounter procedure [facility] Work Phone: Start: 03-10-2024 Non-patient / Non-visit [facility] Work Phone: Start: 03-10-2024 Patient encounter procedure [facility] Start: 03-07-2024 ambulatory [facility] Start: 03-02-2024 Non-patient / Non-visit [facility] Work Phone: Start: 02-24-2024 End: 02-24-2024 ambulatory AMANDA RUT Not Available Start: 02-24-2024 End: 02-24-2024 Patient encounter procedure Amanda Rut DO Work Phone: [facility] Comment on above: Idiopathic periphera l neuropathy Start: 02-22-2024 End: 02-22-2024 Bamboo flowsheet Amanda Rut DO Work Phone: [facility] Start: 02-22-2024 End: 02-22-2024 Bamboo flowsheet Amanda Rut DO Work Phone: [facility] Start: 02-22-2024 End: 02-22-2024 ambulatory AMANDA RUT Not Available Start: 02-22-2024 End: 02-22-2024 Office outpatient new 45 minutes Amanda Rut DO Work Phone: [facility] Comment on above: Idiopathic periphera l neuropathy (Primary Dx); 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; Weakness; Numbness and tingling Start: 02-11-2024 ambulatory [facility] Start: 02-02-2024 ambulatory [facility] Start: 01-21-2024 ambulatory TEE NAGY [facility] Start: 12-09-2023 End: 12-09-2023 ambulatory [facility] Start: 12-03-2023 End: 12-03-2023 ambulatory [facility] Work Phone: Start: 12-03-2023 End: 12-03-2023 Patient encounter procedure [facility] Work Phone: Start: 12-01-2023 Non-patient / Non-visit [facility] Work Phone: Start: 11-10-2023 End: 11-10-2023 ambulatory [facility] Start: 06-04-2023 End: 06-04-2023 ambulatory Alvin Contreras Other [employer] Other Start: 06-04-2023 Encounter by sergio Contreras [facility] Start: 05-29-2023 End: 05-29-2023 ambulatory Alvin Contreras Other [employer] Other Start: 05-29-2023 Telephone encounter Alvin Contreras [facility] Start: 01-13-2023 End: 01-14-2023 ambulatory HARESH PINEDA Facility:[facility] Start: 01-12-2023 Orders Only Haresh Pineda MD Work Phone: Orthopaedics Comment on above: Chronic pain of left ankle (Primary Dx) Start: 11-17-2022 Orders Only Haresh Pineda MD Work Phone: Orthopaedics Comment on above: Chondrosarcoma (HCC) (Primary Dx) Start: 06-09-2022 End: 06-10-2022 ambulatory DREA ZOIE Facility:[facility] Start: 02-07-2022 End: 02-08-[address] ALVIN CONTRERAS Facility:[facility] Start: 11-05-2021 End: 11-05-2021 Patient encounter procedure Haresh Pineda MD Work Phone: Orthopaedics Comment on above: Chondrosarcoma (HCC) (Primary Dx) Start: 11-05-2021 End: 11-05-2021 Subsequent hospital visit by physician Xr Chest Main A[facility] Radiology Comment on above: 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] Start: 10-10-2021 End: 10-10-[address] ALVIN CONTRERAS Facility: Start: 11-09-2017 End: 11-10-2017 Patient encounter DEFAULT PHYSICIAN Facility:[facility] Procedures Date Procedure Procedure Detail Performing Clinician Start: 04-07-2024 ALL THYROID STIM HORMONE Amanda Rut DO Work Phone: Start: 03-15-2024 Follow-up visit Follow-up DREA LINO Start: 02-24-2024 End: 02-24-2024 Needle emg ea extremty w/paraspinl area complete Amanda Rut DO Work Phone: Start: 02-07-[address] RING IN [facility] Comment on above: Performed By: #### T SH, BMP, LIPID, ALT #### [facility] [address] [place] [address] Dr. Fidel Paige Start: 11-05-2021 Radiologic exam ches t 2 views Eric Taylor P[employer]IC TECHNIC[employer] Work Phone: Start: 11-05-2021 Radiologic examinati on tibia & fibula 2 views Eric Taylor PLASTIC TECHNICIAN[employer] Work Phone: Start: 06-30-2019 Adult depression scr eening assessment Haresh Pineda MD Work Phone: Plan of Treatment Date Care Activity Detail Author Start: 02-12-2025 Screening for malign ant neoplasm of colon [facility] Start: 07-04-2024 End: 07-04-2024 Patient encounter procedure 07/04/2024 4:00 PM EDT Office Visit [facility] [address] [facility] [place] [address] Milton Degroot NP [address] [place], [place] [facility] Start: 04-05-2024 End: 04-05-2025 Cobalamin (Vitamin B12) [Mass/volume] in Serum or Plasma Vitamin B12 Lab Routine Idiopathic peripheral neuropathy Expected: 04/05/2024 (Approximate), Expires: 04/05/2025 [facility] Comment on above: Expected: 04/05/2024 (Approximate), Expires: 04/05/2025 Start: 04-05-2024 End: 04-05-2025 Folate [Mass/volume] in Serum or Plasma Folate Lab Routine Idiopathic peripheral neuropathy Expected: 04/05/2024 (Approximate), Expires: 04/05/2025 [facility] Comment on above: Expected: 04/05/2024 (Approximate), Expires: 04/05/2025 Start: 04-05-2024 End: 04-05-2025 Protein electrophoresis, serum Protein electrophoresis, serum Lab Routine Idiopathic peripheral neuropathy Expected: 04/05/2024 (Approximate), Expires: 04/05/2025 [facility] Comment on above: Expected: 04/05/2024 (Approximate), Expires: 04/05/2025 Start: 04-05-2024 End: 04-05-2025 Thyrotropin [Units/volume] in Serum or Plasma TSH Lab Routine Idiopathic peripheral neuropathy Expected: 04/05/2024 (Approximate), Expires: 04/05/2025 [facility] Work Phone: Comment on above: Expected: 04/05/2024 (Approximate), Expires: 04/05/2025 Start: 04-05-2024 End: 04-05-2024 Patient encounter procedure [facility] [address] Comment on above: Arrived Start: 02-24-2024 End: 02-24-2024 Patient encounter procedure 02/24/2024 1:00 PM EST Procedure Visit [facility] [address] [address] Amanda Bettencourt DO [address] [place] [address] [facility] Start: 02-22-2024 End: 02-21-2025 Cobalamin (Vitamin B12) [Mass/volume] in Serum or Plasma Vitamin B12 Lab Routine Idiopathic peripheral neuropathy Expected: 02/22/2024 (Approximate), Expires: 02/21/2025 [facility] Work Phone: Comment on above: Expected: 02/22/2024 (Approximate), Expires: 02/21/2025 Start: 02-22-2024 End: 02-21-2025 EMG 2 Extremities EMG 2 Extremities Neurology Routine Idiopathic peripheral neuropathy Expected: 02/22/2024 (Approximate), Expires: 02/21/2025 [facility] Comment on above: Expected: 02/22/2024 (Approximate), Expires: 02/21/2025 Start: 02-22-2024 End: 02-21-2025 Folate [Mass/volume] in Serum or Plasma Folate Lab Routine Idiopathic peripheral neuropathy Expected: 02/22/2024 (Approximate), Expires: 02/21/2025 [facility] Comment on above: Expected: 02/22/2024 (Approximate), Expires: 02/21/2025 Start: 02-22-2024 End: 02-21-2025 NVC 9-10 Nerves NVC 9-10 Nerves Neurology Routine Idiopathic peripheral neuropathy Expected: 02/22/2024 (Approximate), Expires: 02/21/2025 [facility] Comment on above: Expected: 02/22/2024 (Approximate), Expires: 02/21/2025 Start: 02-22-2024 End: 02-21-2025 Protein electrophoresis, serum Protein electrophoresis, serum Lab Routine Idiopathic peripheral neuropathy Expected: 02/22/2024 (Approximate), Expires: 02/21/2025 [facility] Comment on above: Expected: 02/22/2024 (Approximate), Expires: 02/21/2025 Start: 02-22-2024 End: 02-21-2025 Thyrotropin [Units/volume] in Serum or Plasma TSH Lab Routine Idiopathic peripheral neuropathy Expected: 02/22/2024 (Approximate), Expires: 02/21/2025 [facility] Comment on above: Expected: 02/22/2024 (Approximate), Expires: 02/21/2025 Start: 12-19-2022 Influenza vaccination C [facility] Start: 11-05-2022 End: 12-05-2022 Radiologic exam chest 2 views XR CHEST 2V FRONTAL/LAT Radiology Routine Chondrosarcoma (HCC) Expected: 11/05/2022 (Approximate), Expires: 12/05/2022 [facility] Work Phone: Comment on above: Expected: 11/05/2022 (Approximate), Expires: 12/05/2022 Start: 11-05-2022 End: 12-05-2022 XR TIBIA FIBULA 2V AP/LAT RIGHT XR TIBIA FIBULA 2V AP/LAT RIGHT Radiology Routine Chondrosarcoma (HCC) Expected: 11/05/2022 (Approximate), Expires: 12/05/2022 [facility] Work Phone: Comment on above: Expected: 11/05/2022 (Approximate), Expires: 12/05/2022 Start: 10-25-2022 DIABETES SCREEN DIABETES SCREEN [facility] Start: 10-25-2022 Diabetes Screening Diabetes Screenin g [facility] Start: 04-20-2022 ADVANCE DIRECTIVE DISCUSSION ADVANCE DIRECTIVE DISCUSSION [facility] Start: 04-20-2022 DEPRESSION ASSESSMENT DEPRESSION ASS ESSMENT [facility] Start: 12-19-2021 Influenza vaccination INFLUENZA (#1) [facility] Start: 11-18-2021 COVID-19 VACCINE (5 - Pfizer series) COVID-19 VACCINE (5 - Pfizer series) [facility] Start: 04-20-2021 ADVANCE DIRECTIVE DISCUSSION ADVANCE DIRECTIVE DISCUSSION [facility] Start: 06-29-2020 Adult depression screening assessment DEPRESSION SCREENING [facility] Start: 01-19-2016 Pneumococcal Vaccine : 65+ Years (2 of 2 - PCV) Pneumococcal Vaccine: 65+ Years (2 of 2 - PCV) [facility] Start: 2014 Pneumococcal Vaccine : 65+ (1 - PCV) Pneumococcal Vaccine: 65+ (1 - PCV) [facility] Start: 2014 PNEUMOCOCCAL: 65+ (1 - PCV) PNEUMOCOCCAL: 65+ (1 - PCV) [facility] Start: 09-19-1999 SHINGRIX VACCINE (1 of 2) SHINGRIX VACCINE (1 of 2) [facility] Start: 1994 COLOGUARD (FIT-DNA) COLOGUARD (FIT-D NA) [facility] Start: [address] [facility] Start: 1994 COLORECTAL CANCER SCREENING COLORECTAL CANCER SCREENING [facility] Start: [address] COLONOGRAPHY [facility] Start: 1994 FECAL OCCULT BLOOD FECAL OCCULT BLOO D [facility] Start: 1994 [facility] Start: 1984 Lipid 1996 panel - Serum or Plasma Lipid Screening [facility] Start: 1984 LIPID SCREEN LIPID SCREEN [facility] Start: [address] [facility] Start: 09-19-1967 ANNUAL PCP TEAM INDUSTRIAL INSULATOR LEE ANN DISEASE VISIT ANNUAL PCP TEAM CHRONIC DISEASE VISIT [facility] Start: 09-19-1967 BP CONTROLLED (<130/80) BP CONTROLLE D (<130/80) [facility] Start: 09-19-1967 HEPATITIS C SCREENING HEPATITIS C SC REENING [facility] Start: 1949 Screening for malign ant neoplasm of colon [facility] End: 12-17-2023 Radiologic exam chest 2 views XR CHEST 2V FRONTAL/LAT Radiology Routine Chondrosarcoma (HCC) 1 Occurrences starting 11/17/2022 until 12/17/2023 [facility] Work Phone: Comment on above: 1 Occurrences starti ng 11/17/2022 until 12/17/2023 End: 02-11-2024 XR ANKLE GENERAL 3V AP/LAT/OBL LEFT XR ANKLE GENERAL 3V AP/LAT/OBL LEFT Radiology Routine Chronic pain of left ankle 1 Occurrences starting 01/12/2023 until 02/11/2024 [facility] Work Phone: Comment on above: 1 Occurrences starti ng 01/12/2023 until 02/11/2024 End: 12-17-2023 XR TIBIA FIBULA 2V AP/LAT RIGHT XR TIBIA FIBULA 2V AP/LAT RIGHT Radiology Routine Chondrosarcoma (HCC) 1 Occurrences starting 11/17/2022 until 12/17/2023 [facility] Work Phone: Comment on above: 1 Occurrences starti ng 11/17/2022 until 12/17/2023 XR TIBIA FIBULA 2V AP/LAT RT XR TIBIA FIBULA 2V AP/LAT RT Radiology Routine Chondrosarcoma (HCC) 11/05/2021 2:50 PM EDT [facility] Work Phone: [facility] Immunizations Immunization Date Immunization Notes Care Provider Omar tilley 02-10-2022 influenza virus vaccine, split virus (incl. purified surface antigen) Alvin Contreras Other [employer] Other 02-10-2022 influenza virus vaccine, unspecified formulation [facility] 05-29-2020 COVID-19 Vaccine Pfi zer - Documentation Purposes Only Alvin Contreras Other [facility] 10-02-2016 diphtheria, tetanus toxoids and acellular pertussis vaccine, unspecified formulation Avlin Ben Other [facility] 03-23-2016 pneumococcal conjuga te vaccine, 13 valent Alvin Ben Other [facility] 03-01-2009 pneumococcal polysaccharide vaccine, 23 valent Alvin Ben Other [facility] 02-25-2006 diphtheria, tetanus toxoids and acellular pertussis vaccine, unspecified formulation Alvin Ben Other [facility] Payers Date Payer Category Payer Medicare MEDICARE MEDICAR E A AND B [id number] 2014-Present [phone] [place] [address] Medicare [id number] 2014 Medicare [id number] 2014 Private Health Insurance [employer] [place] [id number] 2014 Unknown 2014 Unknown [employer] [address] D [id number] 2014-Present [phone] [address] [address] [place] [id number] Indemnity [id number] 2014 Unknown [id number] 1959 Medicare [id number] 1959 Unknown [id number] 1949 Unknown [id number] 1949 Unknown [id number] 1949 Unknown [id number] 1949 Unknown [id number] 1949 Unknown [id number] 1949 Unknown [id number] 1949 Unknown [id number] Social History Date Type Detail Facility Start: 07-17-2017 Tobacco smoking status CAIS Never smoked tobacco [facility] Start: 07-17-2017 End: 02-22-2024 Tobacco use and exposure Smokeless tobacco non-user [facility] Start: 1950 Sex Assigned At Male [facility] Start: 10-26-2021 End: 11-05-2021 Exposure to SARS-CoV-2 (event) Not sure [facility] Start: 05-18-2022 End: 04-05-2024 History of Social function [facility] Start: 05-18-2022 End: 04-05-[address] [facility] National Score (1-10 0), lower number is lower risk 60 [facility] Start: 11-23-2019 Sexual orientation Heterosexual (finding) [facility] Tobacco smoking stat us CAIS Tobacco smoking consumption unknown [facility] Start: 1950 Sex assigned at Not on file [facility] Start: 02-22-2024 Tobacco smoking status NHIS Ex-smoker [facility] History of tobacco use Current smoker [facility] History of tobacco use Cigarette Smoker [facility] Start: 04-27-2024 Sex Male (finding) [facility] Medical Equipment Procedure Code Equipment Code Equipment Origin al Text Equipment Identifier Dates Graft Enhance Demineralized Cortical Fiber Bone Allograft Dehydrate 2.5ml - [id number] Start: 08-27-2017 Graft Cancellous Chips Bone Void Freeze Dry 30ml (1.7-10mm) - [id number] Start: 08-27-2017 Graft Dbx Bone V oid Allograft Freeze Dried Putty 1ml - [id number] Start: 08-27-2017 Tibial Nail [id number] Start: 08-27-2017 [employer]ix Titaniumscrew [id number] S tart: 08-27-2017 Carbofix Titaniu m Screw [id number] Start: 08-27-2017 Carbofix Titaniu m Screw [id number] Start: 08-27-2017 Carbofix Titaniu m Screw [id number] Start: 08-27-2017 Carbofix Titaniu m Screw [id number] Start: 08-27-2017 Clinical Notes 10-10-2021 to 06-14-2024 Amanda Bettencourt, - 04/05/2024 1:45 PM EST Note Date & Type Note Facility 06-14-2024 Note [facility] Consult Note Reason for visit: Afib 06/14/2024 Patient here for 3 mo follow up PAF, LVH, and hypertension. He increased flecainide on his own to 100mg bid due to increased palpitations. He thinks this has helped but he isn't too sure. He alternates every other day with losartan 100mg tablets and losartan-hydrochlorothiazide 100-25mg tablets. He doesn't think he's taking Bystolic and he doesn't know why. Had labs in Mar 2024. Loop monitor data shows atrial fibrillation on May 01, 2024 but there were other recordings of what is mentioned SVT with no strips to review. 12/16/22 He notices an increase in frequency [...] was induced. This was followed up with VEST with [facility] protocol which was negative for inducible [...] CVL report IMPRESSION: Successful direct-current cardioversion with zoroastrianism of sinus rhythm from atrial fibrillation with no immediate complication. 03/22/12: EPS EP study by Dr. Carmen Flores on 03/22/2012 for evaluation of wide-complex tachycardia in the setting of normal ejection fraction revealed normal HV interval but no evidence of any AH jump suggestive of dual AV node physiology and no tachycardia was induced. This was followed up with VEST with [facility] protocol which was negative for inducible [...] abnormalities HOLTER 11/21/2020: Sinus rhythm with PACs a (more content not included)... [facility] 04-05-2024 History of Present illness Narrative Images from the original note were not included. Chief Complaint Patient presents with Peripheral Neuropathy Subjective Bang Sharma, 73 y.o., male being for follow HPI The patient is here post EMG. He has not had any falls. He is working with PT and has gained some ROM and strength. The pain is controlled. HE still has the numbness. He does continue to do the home exercise program. They told him he has more range of motion and strength in his dorsi and plantar flexion. He does complain that the numbness is still there but it is not as painful as it was. He is trying to be more steady on his feet He is trying to eat better He did not get his lab work completed He also has pain in the left ankle but states it is due to arthritis. He is wondering if the chondrosarcoma could be in his ankle. He did not discuss that with Dr. Schneider. He states that they did talk about doing an MRI of the ankle. Past Medical History: Diagnosis Date Afib (CMS/HCC) Heart disease HTN (hypertension) ([facility]) Past Surgical History: Procedure Laterality Date FEMUR [...] Neurologic: No new headaches or dizziness Vitals: 04/05/24 1344 BP: 142/86 Pulse: 63 SpO2: 97% Body mass index is 31.92 kg/m . 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 Patient EMG showed these findings. He did not get his lab work done and we will reprint that out for him. He did go to physical therapy and is getting some improvement in his strength and balance. He needs to be doing more of the exercises at home. He has a numbness and this will be his new normal as we can not bring the sensation back. The discomfort is under better control. HE also has a known right lower extremity weakness with footdrop and numbness and tingling. 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 Unfortunately they likely had to sacrifice the nerve to remove the mass lesion however reportedly they got the entire lesion. He is going to finish physical therapy and then will decide if he needs an AFO. He does not have DM. We will leave any workup for any possible reoccurrence of the chondrosarcoma to Dr. Schneider. Plan: EMG was reviewed that showed the severe sensory motor polyneuropathy Reorder the lab work Consider an AFO on the right May need to consider a cane We will leave any workup for any [...] clinic: 3 weeks documented in this encounter [facility] 03-15-2024 Note Cardiovascular Medic [facility] SUBJECTIVE Chief Complaint Patient presents with Follow-up [...] This was followed up with BEST with [facility] protocol which was negative for inducible [...] [Carvedilol] Diarrhea Meperi (more content not included)... [facility] 03-11-2024 Evaluation note Diagnosis Onset Date Resolution Abdominal pain acute February 192023 11:00am Atrial fibrillation acute Novem mac 2023 11:00am Hypercalcemia acute March 112023 11:00am Hypercholesterolemia acute Nove mber 2023 11:00am Hypertension acute February 11:00am Medicare annual wellness visit, subsequent acute March 11, 2024 11:00am Obesity acute March 11, 2024 11:00am REMY (obstructive sleep apnea) acute March 11, 2024 11:00am Screening PSA (prostate specific antigen) acute March 11, 2024 11:00am [facility] Work Phone: 1(434) 565-253411-06-2024 History of Present illness Narrative* AVI Ruiz - 02/24/2024 1:00 PM EST Images from the original note were not included. Reason for Appointment: EMG Patient: Bang Sharma : 1950 EMG Computer: [employer] Referring Physician: Dr. Amanda Bettencourt EMG: BLE payroll administrative assistant: Geoff Joshua RT(R) Office Location: [place] Reason for EMG: c/o numbness/tingling in right foot/ankle. Hx of surgery to right lower leg. No hx of DM. Not on blood thinners. Comments: Procedure was explained to the patient & who expressed understanding. Patient appeared to have tolerated the test well despite some discomfort due to the nature of the test. documented in this encounterFreeman Health [id number] History of Present illness Narrative* Amanda Bettencourt DO - 02/22/2024 10:30 AM EST Images from the original note were not included. Chief Complaint Patient presents with Numbness Peripheral Neuropathy Subjective Bang Sharma, 73 y.o., male being seen in Neurology consultation at the request of Dr. Schneider. Dr. Contreras is his PCP. HPI Lower extremity numbness - labs @ [facility]; referral received from Dr Reina Schneider, [facility] The patient states that his symptoms started about 6 months ago maybe longer. 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 He had that before the 6 months ago. 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 He has a large incision on that side. They got all the cancer. [facility] and exercises but does not have [...] with Dr. Schneider. He states that they didtalk about doing an MRI of the ankle. [...] Date Afib (CMS/HCC) Heart disease HTN (hypertension) (CMS/[facility]ER[facility]) Past Surgical History: Procedure Laterality Date FEMUR [...] occurred after he had a chondral sarcoma removedin that area. Unfortunately they likely had to sacrifice the nerve to remove the mass lesion however reportedly they got the entire lesion. Patient has had a footdrop since then. He has decreased sens ation on the lateral distal aspect of the leg. However this appears to be worsening and he is now having bilateral numbness tingling and weakness distally in the lower extremity. I suspect he may be developing an underlying peripheral neuropathy that is causing this bilaterally but worsening the symptoms on the right because of the baseline peroneal neuropathy. Patient needs an EMG to assess thisfurther. He is currently getting physical therapy. He [...] lower extremities to assess for nerve damage suchas lumbar radiculopathy, lumbar plexopathy, or peripheral neuropathy. Consider an AFO on the right May need to consider a cane Labs for Peripheral Neuropathy We will leave any workup for any possible reoccurrence of the chondrosarcoma to Dr. Schneider. Apparently they discussed doing an MRI and this may be beneficial to rule that out versus a PET scan orbone scan. We will leave this to them. [...] to clinic: 3 weeks documented in this encounterFreeman Health [id number] NoteLOOP IMPLANT PROCEDURE NOTE DATE OF PROCEDURE: 12/09/23 PERFORMING PHYSICIAN: Dr. Alpesh Jenkins TIRE BUSTER: JERROD INDICATIONS FOR PROCEDURE: 1. SVT/AF surveillance [...] the sternum on the left using the [employer] tool. The loop recorder was then injected [...] wet the incision. Alpesh Jenkins MD Cardiac Electrophysiology.[facility]07-23-2024 Note Cardiovascular Medicine [facility] SUBJECTIVE Chief Complaint Patient presents with [...] This was followed up with BEST with [facility] protocol which was negative for inducible [...] kg (260 lb) SpO2 (more content not included)...[facility]07-23-2024 NotePatient here today with concerns about his HR and flecainide. He [...] pain. All other systems reviewed and are negative.[facility] 05-29-2023 Evaluation note* Encounter Date Diagnosis Assessment Notes Treatment Notes Treatment Clinical Notes May, Anemia (ICD-10 - D64.9) [employer] Other 09-26-2023 NoteHNO ID: [id number] Author: Keri Lopez RN Service: ? Author Type: Registered Nurse Type: Progress Notes Filed: 01/13/2023 4:19 PM Note Text: I served as a scribe during this office visit encounter. Keri Lopez [facility]09-26-2023 NoteHNO ID: [id number] Author: Ranjith Teixeira RT(R) Service: Radiology Author [...] BY: RT Mariel(R) January 13, 2023 2:20 [facility]09-26-2023 NoteHNO ID: [id number] Author: Haresh Pineda MD Service: ? 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 Implants: 1) Carbofix 11mm x 380mm Carbon Fiber Tibial Nail with three 5.0mm proximal locking screws (50mm, 42.5mm, 70mm) and two 5.0mm distal locking screws (45mm, 30mm) 2) MTF 15cc of Demineralized Bone Fibers 3) MTF 30cc Cancellous Chips 4) MTF 1cc DBX Catherine S: This represents my 5 year sarcoma [...] the date of the service which included [id number] patient care, completing clinical documentation, obtaining and/or [...] information added by medical student, resident, nurse, BANKING PARALEGAL/PA-C that I have placed my signature directly below I have verified and either instructed them to document in a scribe function or document appropriately in the chart during the patient visit. Haresh Pineda MD huc, CCLCM at [facility] Instrument Repair Technician, Division of Musculoskeletal Oncology Co-Director of Sarcoma Care, [facility] Pager: [phone] (more content not included)...[facility] [id number] History of Present illness Narrative* Haresh Pineda MD - 11/05/2021 5:19 PM EDT This note was created using Oshiboreeriter. AAOS AMB SF ORT MST FU Advanced: Did this patient have an adverse event since their last encounter?: No * Haresh Pineda MD - 11/05/2021 4:07 PM EDT Orthopaedic Surgery Follow-Up Clinic Note Surgery/Date: 08/27/2017 1. 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 Placement of Prophylactic Carbon Fiber Tibial Nail, Right Tibia (CPT 55331) 3. High Speed Denio and Adjuvant Treatment with 10% H202 (CPT 82185) 4. Neruolysis and Dissection of Deep Peroneal Nerve (CPT 69577) 5. 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 Exam: RLE -- largely unchanged compared [...] the date of the service which included [id number] patient care, completing clinical documentation, obtaining and/or reviewing separately obtained history, performing a medically appropriate examination, counseling and educating the patient/family/caregiver, ordering medications, tests, or procedures, independently interpreting results (not separately reported) and communicating results to the patient/family/caregiver. Any information added by medical student, resident, nurse, BANKING PARALEGAL/PA-C that I have placed my signature directly below I have verified and either instructed them to document in a scribe function or document appropriately in the chart during the patient visit. Haresh Pineda MD huc, [facility] HOSPITALCM at [facility] HospitalBr[facility] Instrument Repair Technician, Division of Musculoskeletal Oncology Co-Director of Sarcoma Care, [facility] Pager: [phone] November 05, 2021 5:18 PM documented in this encounterSt. [facility] History of Present illness Narrative* RT Stanford(R) [...] 05, 2021 2:49 PM documented in this encounterSt. 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, site unspecified documented in this encounter [facility] note* 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, site unspecified documented in this encounter [facility] note* Diagnosis Chronic pain of left ankle- Primary documented in this encounter [facility] noteNo InformationNoSelect [facility]ty [facility] Other Evaluation note* Diagnosis Onset Date Resolution Status Anemia acute Atrial fibrillation acute Hypercholesterolemia acute Hypertension acute Obesity acute REMY (obstructive sleep apnea) acute [facility] Work Phone: Evaluation note* Diagnosis Idiopathic peripheral neuropathy- Primary Unspecified hereditary and idiopathic peripheral neuropathy 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 Weakness Other malaise and fatigue Numbness and tingling Disturbance of skin sensation [facility]* Diagnosis Idiopathic peripheral neuropathy Unspecified hereditary and idiopathic peripheral neuropathy [facility]* Diagnosis Idiopathic peripheral neuropathy- Primary Unspecified hereditary and idiopathic peripheral neuropathy Numbness and tingling Disturbance of skin sensation 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 Weakness Other malaise and fatigue documented [facility] Narrative - Reported* Type Description Date Medical History History of deep vein thrombosis Medical History Adrenal mass Medical History Benign prostatic hyp erplasia with lower urinary tract symptoms Medical History 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 Medical History Arthritis of left shoulder regio n Medical History Lumbar spondylosis Medical History Hyperlipidemia type II Surgical History Trigger Finger Release 2007 Surgical History Colonoscopy 2010 Surgical History C 2011 Surgical History Cardiac Ablation 2012 Surgical History Removal FB Right Hand 2016 Surgical History Resected Bone Right Tibia w/ ro d insertion 2018 Hospitalization History see surgical hx [employer] Other Reason for referral (narrative)* Diagnostic Procedure Only (Routine) - Pending Review Specialty Diagnoses / Procedures Referred By Tigre kilpatrick Referred To Contact XR IMAGING Diagnoses Chondrosarcoma (HCC) Procedures XR TIBIA FIBULA 2V AP/LAT RIGHT RADIOLOGIC EXAMINATION TIBIA & FIBULA 2 VIEWS Haresh Pienda MD [address] [place] [address] Xr Imaging Referral ID Status Reason Start Date Expiration Date Visits Requested Visits Authorized [id number] Pending Review Auto-Generat ed Referral 11/05/2022 12/05/2022 1 1 [facility] for referral (narrative)* Diagnostic Procedure Only (Routine) - Pending Review Specialty Diagnoses / Procedures Referred By Contac t Referred To Contact XR IMAGING Diagnoses Chondrosarcoma (HCC) Procedures XR TIBIA FIBULA 2V AP/LAT RIGHT RADIOLOGIC EXAMINATION TIBIA & FIBULA 2 VIEWS Haresh Pineda MD [address] [place] [address] Xr Imaging Referral ID Status Reason Start Date Expiration Date Visits Requested Visits Authorized [id number] Pending Review Auto-Generat ed Referral 11/17/2022 12/17/2023 1 1 [facility] for referral (narrative)* Diagnostic Procedure Only (Routine) - Authorized Specialty Diagnoses / Procedures Referred By Tigre t Referred To Contact XR IMAGING Diagnoses Chronic pain of left ankle Procedures XR ANKLE GENERAL 3V AP/LAT/OBL LEFT RADEX ANKLE COMPLETE MINIMUM 3 VIEWS Valeri Quintero PA-C [address] [address] Xr Imaging [place] [address] Referral ID Status Reason Start Date Expiration Date Visits Requested Visits Authorized [id number] Authorized Auto-Generat ed Referral 01/12/2023 02/11/[address] [facility] Summary Purpose Family History No Family History Records Found Relationship Condition Age at Onset Recorded Date/T kayley father Malignant neoplasm Unknown Unknown mother Hypertension Unknown Diabetes mellitus Unknown Advance Directives No Advanced Directives Records FoundDocuments on File Type Date Recorded Patient Lead Game Designer Expl anation Advance Directive(s) Advance Directive(s) 09/02/2018 11:24 AM Advance Directive(s) 08/26/2018 2:02 PM Advance Directive(s) 08/24/2017 2:28 PM Documents on File Type Date Recorded Patient Lead Game Designer Expl anation Advance Directive(s) Advance Directive(s) 09/02/2018 11:24 AM Advance Directive(s) 08/26/2018 2:02 PM Advance Directive(s) 08/24/2017 2:28 PM Documents on File Type Date Recorded Patient Lead Game Designer Expl anation Advance Directive(s) 08/24/2017 2:28 PM Advance Directive Response Recorded Date/ Time Advance Directives No August 31 9:44am Advance Directive Response Recorded Date/ Time Advance Directives No August 31 8:44am Chief Complaint and Reason for Visit Chief Complaint 3 month f/u Reason for Visit Anemia Atrial fibrillation Hypercholesterolemia Hypertension Obesity REMY (obstructive sleep apnea) Chief Complaint Admit Date CC Adult Risk Stratification March 022023 2:24pm wellness March 11, 2024 11:00am chest congestion April 27, 2024 3: 18pm Reason for Visit Admit Date Abdominal pain March 11, 2024 11:00am Atrial fibrillation March 11, 2024 11:00am Hypercalcemia March 11, 2024 11:00am Hypercholesterolemia March 11, 2024 11:00am Hypertension March 11, 2024 11:00am Medicare annual wellness visit, subseque nt March 11, 2024 11:00am Obesity March 11, 2024 11:00am REMY (obstructive sleep apnea) February 192023 11:00am Screening PSA (prostate specific antigen ) March 11, 2024 11:00am Additional Source Comments (unrecognized sect ion and content) No Status Records FoundNo Status Records FoundNo Status Records FoundNo Status Records FoundNo Status Records FoundNo Status Records Found INFORMATION SOURCE (unrecogn ized section and content) DATE CREATED AUTHOR 11/10/2017 [facility] DATE CREATED AUTHOR AUTHOR'S ORGANIZ ATION 06/26/2022 [facility] DATE CREATED AUTHOR AUTHOR'S ORGANIZ ATION 01/21/2023 [facility] DATE CREATED AUTHOR AUTHOR'S ORGANIZ ATION 01/21/2023 [facility] DATE CREATED AUTHOR AUTHOR'S ORGANIZ ATION 07/04/2024 [facility] DATE CREATED AUTHOR AUTHOR'S ORGANASHLEY ATION 07/06/2024 [facility] EPIC Source Comments (unrecognize d section and content) In the event this informatio n is protected by the Federal Confidentiality of Alcohol and Drug Abuse Patient Records regulations: The Federal rules restrict any use of the information to criminally investigate or prosecute any alcohol or drug abuse patient.[facility] CampusIn the event this information is protected by the Federal Confidentiality of Alcohol and Drug Abuse Patient Records regulations: The Federal rules restrict any use of the information to criminally investigate or prosecute any alcohol or drug abuse patient.[facility] CampusIn the event this information is protected by the Federal Confidentiality of Alcohol and Drug Abuse Patient Records regulations: The Federal rules restrict any use of the information to criminally investigate or prosecute any alcohol or drug abuse patient.[facility] CampusIn the event this information is protected by the Federal Confidentiality of Alcohol and Drug Abuse Patient Records regulations: The Federal rules restrict any use of the information to criminally investigate or prosecute any alcohol or drug abuse patient.[facility] Reason for Visit (unrecogniz ed section and content) Reason Comments Follow Up Reason Comments Radio Gen A21 Reason Comments Numbness Peripheral Neuropathy Specialty Diagnoses / Procedures Referred By Contac t Referred To Contact Neurology Diagnoses Anesthesia of skin Procedures IA OFFICE/OUTPATIENT [facility] MDM 30 MINUTES Reina Schneider MD [address] [place] [address] [place] [address] Phone: tel: fax: Emmett Pineda, [address] [place] [address] Phone: tel: fax: Referral ID Status Reason Start Date Expiration Date V isits Requested Visits Authorized [id number] Closed Consult and Treat 02/11/2024 08/09/2024 1 1 Reason Comments Peripheral Neuropathy Care Teams (unrecognized sec tion and content) Technical Lead Relationship Specialty Start Date End Date Alvin Contreras DO [address] [place] [address] PCP - General Internal Medicine 06/19/17 Technical Lead Relationship Specialty Start Date End Date Alvin Contreras DO [address] [place] [address] PCP - General Internal Medicine 06/19/17 Technical Lead Relationship Specialty Start Date End Date Alvin Contreras DO [address] [place] [address] PCP - General Internal Medicine 06/19/17 Team [...] December 03, 2023 End: December 03, 2023 Technical Lead Relationship Specialty Start Date End Date Alvin Contreras MD [address] [place] [address] PCP - General Internal Medicine 03/30/23 Technical Lead Relationship Specialty Start Date End Date Alvin Contreras MD [address] [place] [address] PCP - General Internal Medicine 03/30/23 Bhavik Justin, PhD [address] [place] [phone] Referring Physician Neuropsychology 02/22/24 Technical Lead Relationship Specialty Start Date End Date Alvin Contreras MD [address] [place] [address] PCP - General Internal Medicine 03/30/23 Bhavik Justin, PhD [address] [place] [phone] Referring Physician Neuropsychology 02/22/24 Technical Lead Relationship Specialty Start Date End Date Alvin Contreras MD [address] [place] [address] PCP - General Internal Medicine 03/30/23 Bhavik Justin, PhD [address] [phone] Referring Physician Neuropsychology 02/22/24 Amanda Bettencourt DO [address] [place] [address] Referring Physician Neurology 04/05/24 Technical Lead Relationship Specialty Start Date End Date Alvin Contreras MD [address] [place] [phone] PCP - General Internal Medicine 03/30/23 Bhavik Justin, PhD [address] [place] [phone] Referring Physician Neuropsychology 02/22/24 Amanda Bettencourt DO [address] [place] [address] Referring Physician Neurology 04/05/24 Technical Lead Relationship Specialty Start Date End Date Alvin Contreras MD [facility] [place] [id number] PCP - General Internal Medicine 03/30/23 Bhavik Justin, PhD [address] [place] [phone] Referring Physician Neuropsychology 02/22/24 Amanda Bettencourt DO [address] [place] [address] Referring Physician Neurology 04/05/24 Team Status: Active Member Role Status Dates Alvin Contreras DO Primary Care Provide r, Attending Provider Active Start: March 02, 2024 Team Status: Active Member Role Status Dates Alvin Contreras DO Primary Care Provide r, Attending Provider Active Start: March 10, 2024 Team Status: Inactive Member Role Status Dates Alvin Contreras DO Primary Care Provide r, Attending Provider Active Start: March 11, 2024 End: March 11, 2024 Team Status: Active Member Role Status Dates Alvin Contreras DO Primary Care Provide r, Attending Provider Active Start: April 07, 2024 Team Status: Inactive Member Role Status Dates Alvin Contreras DO Primary Care Provide r, Attending Provider Active Start: April 27, 2024 End: April 27, 2024 Goals (unrecognized section and content) Goals may [...] BE BASED ON THE PRIMARY CLINICAL RECORDS. [facility] [employer] [facility]. provides no warranty or guarantee of the accuracy or completeness of information in this document.
[2024-07-07 11:18] LABS: Anion Gap 10.7; BUN Creatinine Ratio 18.6; Calcium 10.5 mg/dL (8.5-10.1); Carbon Dioxide 29.4 mmol/L (21.0-32.0); Chloride 106 mmol/L (98-107); Estimated GFR (African America >60 (>=60 mL/min/1.73m^2); Estimated GFR (Non-African Ame >60 (>=60 mL/min/1.73m^2); Glucose 105 mg/dL (74-106); Potassium 4.1 mmol/L (3.5-5.1); Sodium 142 mmol/L (136-145)
[2024-07-08 10:08] LABS: PTH, Intact 91 pg/mL (15-65)
== END 2024-07-07 10:16 | disposition home or self-care (01) ==
PROVIDERS: PCP Internal Medicine; Visit Provider Internal Medicine
DX: E55.9 Vitamin D deficiency, unspecified (principal)
CPT/HCPCS: 36415; 80048; 82306; 83970

== ENCOUNTER 2024-07-18 09:41 | Outpatient (OUT) | payer MEDICARE, OTHER, SELFPAY | END 2024-07-18 09:42 | disposition home or self-care (01) | LOC: RAD 09:41 | PROVIDERS: PCP Internal Medicine; Visit Provider Internal Medicine | DX: E21.0 Primary hyperparathyroidism (principal) | CPT/HCPCS: 77080 ==

== ENCOUNTER 2024-07-18 09:45 | Outpatient (OUT) | payer MEDICARE, OTHER, SELFPAY ==
[2024-07-18 10:24] LABS: Calcium Urine Random 19.4 mg/dL (5.1-21.0)
[2024-07-18 10:26] LABS: Calcium 24 Hour Urine 310.4 mg/24hr (100.0-300.0); Total Volume 24 Hour Urine 1600 mL/24hr
== END 2024-07-18 09:46 | disposition home or self-care (01) ==
LOC: LAB 09:45
PROVIDERS: PCP Internal Medicine; Visit Provider Internal Medicine
DX: E83.52 Hypercalcemia (principal)
CPT/HCPCS: 82340

== ENCOUNTER 2024-08-23 15:07 | Observation (INO) | payer MEDICARE, OTHER, SELFPAY ==
[2024-08-23] VITALS (8 sets, daily range): BP systolic 129–175; BP diastolic 68–81; PULSE 70–84; TEMP 36.5–38.2; O2SAT 90–95; BMI 34.1; BMI 33.8
--- NOTE | 2024-08-23 15:22 | ECG_ITS ---
[facility] Test Date: 2024-08-23 Pat Name: BANG SHARMA Department: Room: - Gender: Male [employer] Operator: : 1950 Requested By: [id number] Order Number: [id number] Reading MD: NIKKI MESA M.D. Measurements Intervals [place] Rate: 82 P: -73 NM: 189 QRS: -82 QRSD: 196 T: 35 QT: 466 QTc: 505 Interpretive Statements Normal sinus rhythm 2450 Right bundle branch block 2630 Left anterior fascicular block Bifascifular block 3413 Cannot rule out septal myocardial infarction, probably old 5211 Minimal voltage criteria for LVH, may be normal variant 9150 abnormal ECG No previous ECG available for comparison Electronically Signed On 08-23-2024 16:57:05 EDT by NIKKI MESA M.D.
[2024-08-23 16:04] LABS: Alanine Aminotransferase 41 U/L (16-63); Albumin Level 3.8 g/dL (3.4-5.0); Alkaline Phosphatase 64 U/L (46-116); Anion Gap 10.5; Aspartate Amino Transferase 17 U/L (15-37); BUN Creatinine Ratio 10.9; Bilirubin Total 0.7 mg/dL (0.2-1.0); Calcium 9.7 mg/dL (8.5-10.1); Carbon Dioxide 26.1 mmol/L (21.0-32.0); Chloride 98 mmol/L (98-107); Estimated GFR (African America >60 (>=60 mL/min/1.73m^2); Estimated GFR (Non-African Ame 60 (>=60 mL/min/1.73m^2); Glucose 130 mg/dL (74-106); Potassium 3.6 mmol/L (3.5-5.1); Sodium 131 mmol/L (136-145); Total Protein 7.3 g/dL (6.4-8.2); Troponin I High Sensitivity 33.4 pg/mL (4.0-76.1)
[2024-08-23 16:05] LABS: Albumin Globulin Ratio 1.1; Globulin 3.5 g/dL
[2024-08-23 16:09] LABS: Prothrombin Time 12.5 sec (9.0-11.6)
[2024-08-23 16:11] LABS: Influenza Virus A Antigen Negative
[2024-08-23 16:12] LABS: Internal Control Within Normal Limits; SARS-CoV-2 Ag NEGATIVE (NEGATIVE)
[2024-08-23 16:12] LABS: Influenza Virus B Antigen Negative; Internal Control Within Normal Limits
[2024-08-23 16:13] LABS: Hematocrit 42.9 % (42.0-54.0); Hemoglobin 14.5 g/dL (14.0-18.0); Mean Corpuscular HGB Conc 33.8 g/dL (29.9-35.2); Mean Corpuscular Hemoglobin 31.7 pg (25.9-34.0); Mean Corpuscular Volume 93.9 fL (80.0-94.0); Mean Platelet Volume 9.1 fL (9.5-13.5); Platelet Count 230 10^3/uL (150-450); Red Blood Count 4.57 10^6/uL (4.70-6.10); Red Cell Distribution Width 13.3 % (11.0-15.0); White Blood Count 13.2 10^3/uL (4.0-11.0)
[2024-08-23 16:31] LABS: Lymphocytes Absolute Manual 0.52 10^3/uL (1.20-3.80); Monocytes Absolute Manual 0.79 10^3/uL (0.30-0.80); Segmented Neut Absolute Manual 11.88 10^3/uL (1.4-6.5)
--- NOTE | 2024-08-23 17:31 | ED_ITS ---
HPI - SOB/Dyspnea General Chief Complaint: Shortness of Breath/Dyspnea Stated Complaint: DIZZY, TEMP Time Seen by Provider: 08/23/24 15:20 Source: patient Mode of arrival: Wheelchair Limitations: no limitations History of Present Illness HPI Narrative: The patient is a 73-year-old male is coming to the ER with a almost 12 hours history of shortness of breath, patient that the shortness of breath started all of a sudden it is mostly on exertion but sometimes could be at rest, he had no chest pain at any time no nausea no vomiting The patient already follow-up with cardiology as outpatient [facility], the patient graves ve no leg edema that is more than his baseline according to him, the patient also denies any cough Related Data Home Medications ?Medication ?Instructions ?Recorded ?Confirmed baclofen 10 mg tablet 10 mg PO DAILY PRN back galicia 08/23/24 08/23/24 cholecalciferol (vitamin D3) 1,250 50,000 unit PO .wee kly 08/23/24 08/23/24 mcg (50,000 unit) capsule flecainide 100 mg tablet 100 mg PO Q12H 08/23/2410/12 losartan 100 mg tablet 100 mg PO DAILY 08/23/2410/12 meloxicam 15 mg tablet 15 mg PO DAILY 08/23/2410/12 Allergies Allergy/AdvReac Type Severity Reaction Status Date / Time Penicillins AdvReac Severe Rash Verified 08/23/24 15:14 Review of Systems ROS Status of ROS 10 or more systems reviewed and unremark able except as noted in history and below [facility] Medical History (Updated 08/23/24 @ 17:43 by Ginger Rust MD) Atrial fibrillation ?I48.91 - Unspecified atrial fibrillation (ICD-10) SVT (supraventricular tachycardia) ?I47.10 - Supraventricular tachycardia, unspecified (ICD-10) Vitamin D deficiency ?E55.9 - Vitamin D deficiency, unspecified (ICD-10) Hypertension ?I10 - Essential (primary) hypertension (ICD-10) Social History Little interest or pleasure in doing things: not at all Feeling down, depressed, or hopeless: not at all Exam Narrative Exam Narrative: Nurses notes and vital signs reviewed and patient is not hypoxic. General: Well-appearing and in no apparent distress. Skin: Warm, dry, no pallor noted. No rash. Head: Normocephalic, atraumatic. Neck: Supple, non-tender. Eye: Pupils are equal, round and EOMI. No scleral icterus. Ears, Nose, Mouth, and Throat: The patient have a right tympanic membrane erythema, left ear evaluation was normal no nasal mucosal hypertrophy. Oral mucosa is moist, no posterior oropharynx erythema, uvula is mid-line Cardiovascular: Regular Rate and Rhythm without murmur, gallop or rub. Respiratory: Decreased air entry bilaterally and crackles could be heard in the bases more than the left side Back: No midline thoracic or lumbar vertebral tenderness. No CVA tenderness Musculoskeletal: normal ROM, no calf or popliteal tenderness, there is 1+ pitting edema bilaterally GI: Abdomen is soft, non-distended. Normal bowel sounds. No masses appreciated. No tenderness to palpation. No rebound, guarding, or rigidity noted. Neurological: A&O x4. No cranial nerve dysfunction observed. Constitutional Vital Signs, click to edit/add: Last Vital Signs Temp 100.8 F H 08/23/24 15:14 Pulse 78 08/23/24 16:46 Resp 20 08/23/24 16:46 BP 132/68 08/23/24 16:46 Pulse Ox 95 08/23/24 16:46 O2 Del Method Room Air 08/23/24 16:46 Course Vital Signs Vital signs: Vital Signs Temperature 100.8 F H 08/23/24 15:14 Pulse Rate 84 08/23/24 15:14 Respiratory Rate 24 H 08/23/24 15:14 Blood Pressure 175/81 H 08/23/24 15:14 Pulse Oximetry 94 L 08/23/24 15:14 Oxygen Delivery Method Room Air 08/23/24 15:14 Temperature 100.8 F H 08/23/24 15:14 Pulse Rate 78 08/23/24 16:46 Respiratory Rate 20 08/23/24 16:46 Blood Pressure 132/68 08/23/24 16:46 Pulse Oximetry 95 08/23/24 16:46 Oxygen Delivery Method Room Air 08/23/24 16:46 MDM - SOB/Dyspnea MDM Narrative Medical decision making narrative: Patient EKG shows heart rate of 82 with a junctional rhythm with a right bundle jared block I do not have an old EKG for comparison The patient have a chest x-ray shows mild vascular congestion The patient does not take any diuretic and his last echo was normal in 2023 His BNP was elevated above 1000 and although he have a low-grade fever there is no infiltrate on chest x-ray Right now the patient would be covered with doxycycline because of the low-grade fever and I did discuss his case with from the cardiology service and he recommended the patient be admitted for further evaluation The patient case discussed with and he agreed with above-mentioned plan Lab Data Labs: Lab Results 08/23/24 08/23/24 08/23/24 Range/Units 15:30 15:37 15:53 WBC 13.2 H (4.0-11.0) 10^3/uL RBC 4.57 L (4.70-6.10) 10^6/uL Hgb 14.5 (14.0-18.0) g/dL Hct 42.9 (42.0-54.0) % MCV 93.9 (80.0-94.0) fL MCH 31.7 (25.9-34.0) pg MCHC 33.8 (29.9-35.2) g/dL RDW 13.3 (11.0-15.0) % Plt Count 230 (150-450) 10^3/uL MPV 9.1 L (9.5-13.5) fL Seg Neuts % (Manual) 90.0 H (43.0-75.0) Lymphocytes % (Manual) 4.0 L (20.5-60.0) % Monocytes % (Manual) 6.0 (1.7-12.0) % Eosinophils % (Manual) 0.0 L (0.9-7.0) % Basophils % (Manual) 0.0 L (0.2-2.0) % Neutrophils # (Manual) 11.88 H (1.4-6.5) 10^3/uL Lymphocytes # (Manual) 0.52 L (1.20-3.80) 10^3/uL Monocytes # (Manual) 0.79 (0.30-0.80) 10^3/uL Eosinophils # (Manual) 0.00 (0.00-0.70) 10^3/uL Basophils # (Manual) 0.00 (0.00-0.10) 10^3/uL PT 12.5 H (9.0-11.6) sec INR 1.20 Sodium 131 L (136-145) mmol/L Potassium 3.6 (3.5-5.1) mmol/L Chloride 98 (98-107) mmol/L Carbon Dioxide 26.1 (21.0-32.0) mmol/L Anion Gap 10.5 BUN 13.0 (7.0-18.0) mg/dL Creatinine 1.19 (0.70-1.30) mg/dL Est GFR ( Amer) >60 (>=60 mL/min/1.73m^2) Est GFR (Non-Af Amer) 60 (>=60 mL/min/1.73m^2) BUN/Creatinine Ratio 10.9 Glucose 130 H (74-106) mg/dL Lactate 1.0 (0.4-2.0) mmol/L Calcium 9.7 (8.5-10.1) mg/dL Total Bilirubin 0.7 (0.2-1.0) mg/dL AST 17 (15-37) U/L ALT 41 (16-63) U/L Alkaline Phosphatase 64 (46-116) U/L Troponin I High Sens 33.4 (4.0-76.1) pg/mL NT-Pro-B Natriuret Pep 1038.0 H (<=900.0) pg/mL Total Protein 7.3 (6.4-8.2) g/dL Albumin 3.8 (3.4-5.0) g/dL Globulin 3.5 g/dL Albumin/Globulin Ratio 1.1 Influenza Type A Ag Negative Influenza Type B Ag Negative SARS-CoV-2 Ag (CV2AG) Negative (NEGATIVE) Discharge Plan Discharge Chief Complaint: Shortness of Breath/Dyspnea Clinical Impression: CHF exacerbation, Pneumonia Patient Disposition: Admitted to [facility], OBS Time of Disposition Decision: 17:43 Prescriptions / Home Meds: No Action baclofen 10 mg tablet 10 mg PO DAILY PRN (Reason: back galicia) Rx Instructions: at bedtime cholecalciferol (vitamin D3) 1,250 mcg (50,000 unit) capsule 50,000 unit PO .weekly flecainide 100 mg tablet 100 mg PO Q12H meloxicam 15 mg tablet 15 mg PO DAILY losartan 100 mg tablet 100 mg PO DAILY Print Language: Guamanian Referrals: Alvin Contreras DO [Primary Care Provider, Internal Medicine] - 1 week
[2024-08-23] MEDS: ACETAMINOPHEN 325 MG TABLET 650 MG PO (18:01)
[2024-08-23] MEDS: DOXYCYCLINE HYCLATE 100 MG in 0.9 % SODIUM CHLORIDE 100 ML IV (18:01)
[2024-08-23] MEDS: FLECAINIDE ACETATE 50 MG TABLET 100 MG PO (21:22)
[2024-08-23] MEDS: CEFTRIAXONE 1,000 MG in 0.9 % SODIUM CHLORIDE 50 ML 100 MG IV (21:22)
[2024-08-23] MEDS: ENOXAPARIN SODIUM 40 MG/0.4 ML SYRINGE SUBQ (21:23)
[2024-08-24] VITALS (14 sets, daily range): BP systolic 134–144; BP diastolic 64–79; PULSE 68–84; TEMP 36.6–39.2; O2SAT 91–95
[2024-08-24] MEDS: ACETAMINOPHEN 325 MG TABLET 650 MG PO ×3 (03:26→21:49)
[2024-08-24 06:29] LABS: Basophils Percent Auto 0.1 % (0.2-2.0); Hematocrit 39.8 % (42.0-54.0); Hemoglobin 13.3 g/dL (14.0-18.0); Immature Granulocytes Abs Auto 0.04 10^3/uL (0.00-0.03); Immature Granulocytes Pct Auto 0.4 % (0.0-0.5); Lymphocytes Absolute Auto 0.7 10^3/uL (1.2-3.8); Lymphocytes Percent Auto 7.5 % (20.5-60.0); Mean Corpuscular HGB Conc 33.4 g/dL (29.9-35.2); Mean Corpuscular Hemoglobin 31.4 pg (25.9-34.0); Mean Corpuscular Volume 94.1 fL (80.0-94.0); Mean Platelet Volume 8.9 fL (9.5-13.5); Monocytes Absolute Auto 0.7 10^3/uL (0.3-0.8); Monocytes Percent Auto 6.9 % (1.7-12.0); Neutrophils Absolute Auto 8.2 10^3/uL (1.4-6.5); Neutrophils Percent Auto 85.1 % (43.0-75.0); Platelet Count 195 10^3/uL (150-450); Red Blood Count 4.23 10^6/uL (4.70-6.10); Red Cell Distribution Width 13.5 % (11.0-15.0); White Blood Count 9.6 10^3/uL (4.0-11.0)
[2024-08-24 06:45] LABS: Alanine Aminotransferase 36 U/L (16-63); Albumin Globulin Ratio 0.9; Albumin Level 3.1 g/dL (3.4-5.0); Alkaline Phosphatase 50 U/L (46-116); Anion Gap 13.2; Aspartate Amino Transferase 23 U/L (15-37); BUN Creatinine Ratio 12.8; Bilirubin Total 0.6 mg/dL (0.2-1.0); Calcium 9.5 mg/dL (8.5-10.1); Carbon Dioxide 25.1 mmol/L (21.0-32.0); Chloride 98 mmol/L (98-107); Estimated GFR (African America >60 (>=60 mL/min/1.73m^2); Estimated GFR (Non-African Ame >60 (>=60 mL/min/1.73m^2); Globulin 3.4 g/dL; Glucose 103 mg/dL (74-106); Potassium 3.3 mmol/L (3.5-5.1); Sodium 133 mmol/L (136-145); Total Protein 6.5 g/dL (6.4-8.2)
[2024-08-24] MEDS: ENOXAPARIN SODIUM 40 MG/0.4 ML SYRINGE SUBQ (08:50)
[2024-08-24] MEDS: FLECAINIDE ACETATE 50 MG TABLET 100 MG PO ×2 (08:51→21:49)
[2024-08-24] MEDS: LOSARTAN POTASSIUM 50 MG TABLET 100 MG PO (08:51)
[2024-08-24] MEDS: POTASSIUM CHLORIDE 10 MEQ ER TABLET 40 MEQ PO (08:52)
--- NOTE | 2024-08-24 09:30 | CM.NOTE ---
Rounds made with Dr. Cuenca, discussed with pt discharge to home today and f/u with PCP.
--- NOTE | 2024-08-24 10:00 | CA_ITS ---
Patient Name: BANG SHARMA MR#: [id number] : 1950 Exam Date: 08/24/2024 Ordering Doctor: SHAIKH Oleg DONATO . ECHOCARDIOGRAM REPORT PROCEDURE: CA ECHO DOPPLER COMPLETE INDICATIONS: CHF, hypertension, h/o atrial fibrillation COMPARISON: None. DESCRIPTION: COMPLETE ECHOCARDIOGRAM Real-time transthoracic echocardiography with 2D, M-mode, spectral and color flow Doppler performed. QUALITY: Technical quality was fair. LEFT VENTRICLE: Normal chamber size. Thickened septal wall. Mild concentric left ventricular hypertrophy. Normal systolic function. LV EF: Normal left ventricular ejection fraction, (>55%). DIASTOLIC: Diastolic function is indeterminate. ATRIAL SEPTUM: Visually appears intact. LEFT ATRIUM: Moderate dilatation. RIGHT ATRIUM: Mild dilatation. RIGHT VENTRICLE: Normal chamber size. Normal right ventricular systolic function. TRICUSPID VALVE: Normal mobility and thickness. No stenosis with trivial regurgitation. Doppler studies reveal moderately (45-60) elevated right sided pressures. RVSP 54 mmHg MITRAL VALVE: Normal mobility and thickness. No evidence of mitral valve stenosis. There is no mitral annular calcification. AORTIC VALVE: No visible sclerosis. Normal leaflet mobility. No evidence of aortic valve stenosis. No aortic regurgitation. AORTIC ROOT: Normal diameter and appearance, measuring 3.0 cm. PULMONIC VALVE: Not well visualized. PERICARDIUM: No evidence of pericardial effusion. IVC: IVC is dilated (2.4 cm), does not collapse. PLEURA: CONCLUSION: 1. Mild concentric ventricular hypertrophy with normal systolic function. LVEF is 55%. 2. Normal right ventricular size and systolic function. 3. Mild to moderate biatrial dilatation. 4. No significant valvular dysfunction. 5. Moderately elevated right-sided pressures. RVSP is 54 mmHg. 6. Technically difficult study with poor sound transmission. Adult Echocardiography Procedure Report Left Ventricle LVEDD (3.7 - 5.6 cm): 4.62 cm LVESD (2.2 - 4.0 cm): 3.95 cm LVIVS thickness (0.6 - 1.2 cm): 1.15 cm LVPW thickness (0.5 - 1.0 cm): 1.02 cm e': 0.13 m/s E - e': 4.61 LVOT Max Gradient: 2.63 mm[Hg] LVOT Area (cm2): 0.81 m/s Peak Velocity (LVOT): 0.81 m/s Mean Velocity (LVOT): 0.58 m/s LVOT Diameter 2.48 cm Left Atrium LA Volume Index (2D A2C): 47.04 ml/m2 Left Atrium Systolic Dimension: 4.97 cm Mitral Valve MV E to A Ratio: 1.59 Mitral Valve A-Wave Peak Velocity: 0.39 m/s Mitral Valve E-Wave Peak Velocity: 0.62 m/s Right Ventricle Aorta AO Root Diam: 3.02 cm Aortic Valve AoV Area (Peak [place]): 2.47 cm2, 2.47 cm2 AoV Area (VTI): 2.13 cm2, 2.13 cm2 Peak Velocity(Antegrade Flow): 1.58 m/s Peak Gradient(Antegrade Flow): 10.01 mm[Hg] Mean Velocity(Antegrade Flow): 1.07 m/s Mean Gradient(Antegrade Flow): 5.42 mm[Hg] Velocity Time Integral: 31.12 cm Tricuspid Valve Peak Velocity (Regurgitant Flow): 3.14 m/s Pulmonic Valve Peak Velocity: 0.81 m/s Peak Gradient: 2.61 mm[Hg] Right Atrium Right Atrium Systolic Pressure: 61.11 ml, 61.11 ml Dictated by: Chava Real M.D. on 08/24/2024 at 17:49 Approved by: Chava Real M.D. on 08/24/2024 at 17:53
--- NOTE | 2024-08-24 10:55 | SWNOTE1 ---
SW reviewed PT eval and pt did well, no anticipated discharge needs.
--- NOTE | 2024-08-24 10:56 | SWNOTE1 ---
Pt reported to therapy that he has a walker at home that he will use until he is feeling stronger.
--- NOTE | 2024-08-24 11:45 | CM.NOTE ---
Medicare Outpatient Observation Notice discussed with pt, pt verbalizes understanding and signs paper. Original given to pt and copy placed on pt's chart.
--- NOTE | 2024-08-24 13:52 | SWNOTE1 ---
SW reviewed pt's OT note and home health is recommended. SW stopped in and spoke to pt and in room. SW explained that HH is recommended for some strengthening. Pt and agreeable. They voiced he had someone a few years ago after a surgery, but can't remember name of company. SW provided list from Medicare.gov with star ratings. Pt would like MED 1 . Referral sent to [facility] . Referral included face sheet, ED note, H&P, provider notes, case management report, and PT/OT notes.
--- NOTE | 2024-08-24 15:23 | SWNOTE1 ---
SW received a call from [address] and they are able to accept, just need final order. SW to send once SW knows pt is discharged.
[2024-08-24] MEDS: VANCOMYCIN HCL 1,250 MG in 0.9 % SODIUM CHLORIDE 250 ML 166.667 MG IV (19:49)
[2024-08-24] MEDS: CEFTRIAXONE 1,000 MG in 0.9 % SODIUM CHLORIDE 50 ML 100 MG IV (21:50)
--- NOTE | 2024-08-24 22:31 | PM.HP ---
HPI H&P: HPI History of Present Illness Chief complaint: DIZZY, TEMP, CHF EXA, PNEUMONIA A&O Narrative: 73 y o male with hx of HTN, Afib presented to ED with one day hx of fever, generalized weakness, unsteadiness. Patient also reported chills, shakes. Patient also had associated mild shortness of breath. Patient reports feeling sinus congestion a day prior but denies cough or any other resp symptoms. Work up in ED revealed leukocytosis, fever, and abnormal CXR concerning for vascular congestion vs Pneumonia. Patient denied urinary complaints, nausea, vomiting or diarrhea. Patient was treated with IV Doxycycline for presumed bacterial PNA by ED and admitted for overnight observation. This morning when I evaluated him, he felt well overall and except for generalized weakness, did not have any complaints to offer. He then had another febrile episode with chills later in the afternoon. This time, however it was noted that that patient had now developed right LE erythema, pain, tenderness findings suggestive of Cellulitis. He was started on IV vancomycin for it and IV rocephin was continued for Bacterial PNA. 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 bone and articular cartilage, unspecified (ICD-10) Atrial fibrillation ?I48.91 - Unspecified atrial fibrillation (ICD-10) SVT (supraventricular tachycardia) ?I47.10 - Supraventricular tachycardia, unspecified (ICD-10) Vitamin D deficiency ?E55.9 - Vitamin D deficiency, unspecified (ICD-10) Hypertension ?I10 - Essential (primary) hypertension (ICD-10) Surgical History (Updated 08/24/24 @ 08:44 by Radha Mustafa RN) History of tonsillectomy ?Z90.89 - Acquired absence of other organs (ICD-10) History of hernia repair ?Z98.890 - Other specified postprocedural states (ICD-10) ?Z87.19 - Personal history of other diseases of the digestive system (ICD-10) Family History (Updated 08/24/24 @ 08:45 by Radha Mustafa RN) Mother Family history of myocardial infarction Family history of hypertension Family history of diabetes mellitus Father Family history of cancer Social History (Updated 08/24/24 @ 08:45 by Radha Mustafa RN) Within the past year, how often did you have a drink containing alcohol: monthly or less Smoking status: Former smoker Non-prescribed substance use: denies use Highest level of school completed/degree received: some college, no degree Little interest or pleasure in doing things: not at all Feeling down, depressed, or hopeless: not at all Meds Home Medications and Allergies Home Medications ?Medication ?Instructions ?Recorded ?Confirmed ?Type baclofen 10 mg tablet 10 mg PO .qhs PRN back galicia 08/23/24 08/24/24 History cholecalciferol (vitamin D3) 1,250 50,000 unit PO .weekly 08/23/24 08/23/24 History mcg (50,000 unit) capsule flecainide 100 mg tablet 100 mg PO Q12H 08/23/24 08/23/24 History meloxicam 15 mg tablet 15 mg PO DAILY 08/23/24 08/23/24 History amlodipine 10 mg tablet 10 mg PO DAILY 08/24/24 08/24/24 History losartan 100 1 tab PO DAILY 08/24/24 08/24/24 History mg-hydrochlorothiazide 25 mg tablet Allergies Allergy/AdvReac Type Severity Reaction Status Date / Time Penicillins AdvReac Severe Rash Verified 08/23/24 15:14 Exam Constitutional Vital Signs, click to edit/add: Last Vital Signs Temp 97.9 F 08/24/24 20:17 Pulse 79 08/24/24 20:17 Resp 18 08/24/24 20:17 BP 143/76 H 08/24/24 20:17 Pulse Ox 93 L 08/24/24 20:17 O2 Del Method Room Air 08/24/24 20:17 Documenting provider has reviewed patient's vital signs: yes Common normals: no apparent distress and oriented x3 General appearance: cooperative [facility] Common normals: normocephalic and head/scalp atraumatic Head and scalp: normocephalic and atraumatic Eye Common normals: conjunctivae normal and no scleral icterus Conjunctiva: conjunctiva(e) normal Respiratory Common normals: normal respiratory effort and clear to auscultation bilaterally Effort & inspection: able to speak in complete sentences Auscultation: clear to auscultation bilaterally Cardio Common normals: regular rate, S1 normal heart sound and S2 normal heart sound Rate: regular rate Heart sounds: S1 normal and S2 normal GI Common normals: Normal to inspection, nondistended, normoactive bowel sounds present, soft to palpation, non-tender and no hepatosplenomegaly Palpation: soft and no hepatosplenomegaly Extremity Other: RLE erythema, tenderness c/w cellulitis. Neuro Common normals: oriented x3, moves all extremities and no focal motor deficits Psych Common normals: mental status grossly normal, denies hallucinations, denies homicidal ideation and denies suicidal ideation Results Labs Labs: Short CBC 08/24/24 Range/Units 06:19 WBC 9.6 (4.0-11.0) 10^3/uL Hgb 13.3 L (14.0-18.0) g/dL Hct 39.8 L (42.0-54.0) % Plt Count 195 (150-450) 10^3/uL BMP 08/24/24 06:19 Sodium 133 L Potassium 3.3 L Chloride 98 Carbon Dioxide 25.1 BUN 14.0 Creatinine 1.09 Glucose 103 Calcium 9.5 Liver Function 08/24/24 Range/Units 06:19 Total Bilirubin 0.6 (0.2-1.0) mg/dL AST 23 (15-37) U/L ALT 36 (16-63) U/L Alkaline Phosphatase 50 (46-116) U/L Albumin 3.1 L (3.4-5.0) g/dL Assessment and Plan Assessment and Plan (1) Acute on chronic diastolic (congestive) heart failure: Assessment and Plan: Elevated BNP, Dilated IVC on ECHO with LVH. Started on Lasix 40 q12. (2) Bacterial pneumonia: Assessment and Plan: Low suspicion for it but will c/w IV rocephin for presumed bacterial PNA. Negative influenza, Covid. (3) Cellulitis of right leg: Assessment and Plan: RLE Cellulitis. Started on IV vancomycin/rocephin Fu blood cultures. (4) Leukocytosis: Assessment and Plan: improved overnight. Qualifiers: Leukocytosis type: leukemoid reaction Qualified Code(s): D72.823 - Leukemoid reaction (5) Atrial fibrillation: Assessment and Plan: In NSR. Not on AC for unclear reason Qualifiers: Atrial fibrillation type: paroxysmal Qualified Code(s): I48.0 - Paroxysmal atrial fibrillation (6) Hypertension: Assessment and Plan: BP Stable. C/w home medications. Qualifiers: Hypertension type: primary hypertension Qualified Code(s): I10 - Essential (primary) hypertension
[2024-08-25 05:36] LABS: Basophils Percent Auto 0.1 % (0.2-2.0); Hematocrit 38.9 % (42.0-54.0); Immature Granulocytes Abs Auto 0.03 10^3/uL (0.00-0.03); Immature Granulocytes Pct Auto 0.4 % (0.0-0.5); Lymphocytes Absolute Auto 1.4 10^3/uL (1.2-3.8); Lymphocytes Percent Auto 19.3 % (20.5-60.0); Mean Corpuscular HGB Conc 33.4 g/dL (29.9-35.2); Mean Corpuscular Hemoglobin 31.6 pg (25.9-34.0); Mean Corpuscular Volume 94.6 fL (80.0-94.0); Mean Platelet Volume 9.6 fL (9.5-13.5); Monocytes Absolute Auto 0.9 10^3/uL (0.3-0.8); Monocytes Percent Auto 12.2 % (1.7-12.0); Platelet Count 181 10^3/uL (150-450); Red Blood Count 4.11 10^6/uL (4.70-6.10); Red Cell Distribution Width 13.6 % (11.0-15.0); White Blood Count 7.3 10^3/uL (4.0-11.0)
[2024-08-25 05:49] VITALS: BP 142/79; PULSE 70; TEMP 36.7; O2SAT 93
[2024-08-25] MEDS: FUROSEMIDE 40 MG/4 ML VIAL IVP (05:51)
[2024-08-25 06:00] LABS: Alanine Aminotransferase 31 U/L (16-63); Albumin Globulin Ratio 0.8; Albumin Level 2.8 g/dL (3.4-5.0); Alkaline Phosphatase 45 U/L (46-116); Anion Gap 9.5; Aspartate Amino Transferase 23 U/L (15-37); Bilirubin Total 0.3 mg/dL (0.2-1.0); Calcium 9.6 mg/dL (8.5-10.1); Chloride 101 mmol/L (98-107); Estimated GFR (African America >60 (>=60 mL/min/1.73m^2); Estimated GFR (Non-African Ame >60 (>=60 mL/min/1.73m^2); Globulin 3.3 g/dL; Glucose 93 mg/dL (74-106); Potassium 3.5 mmol/L (3.5-5.1); Sodium 133 mmol/L (136-145); Total Protein 6.1 g/dL (6.4-8.2)
[2024-08-25 08:14] VITALS: BP 125/76; PULSE 82; TEMP 37.1; O2SAT 94
[2024-08-25] MEDS: VANCOMYCIN HCL 1,250 MG in 0.9 % SODIUM CHLORIDE 250 ML 166.667 MG IV (09:33)
[2024-08-25] MEDS: FLECAINIDE ACETATE 50 MG TABLET 100 MG PO (09:34)
[2024-08-25] MEDS: ENOXAPARIN SODIUM 40 MG/0.4 ML SYRINGE SUBQ (09:34)
[2024-08-25] MEDS: ACETAMINOPHEN 325 MG TABLET 650 MG PO (09:34)
[2024-08-25] MEDS: LOSARTAN POTASSIUM 50 MG TABLET 100 MG PO (09:34)
--- NOTE | 2024-08-25 09:43 | P.DS_ITS ---
DS: Providers Provider Date of admission: 08/23/24 18:52 Primary care physician: Alvin Contreras DO Admitting clinician: Shaikh Bang Attending physician on admission: Shaikh Bang Consults: 08/23/24 17:47 Occupational Therapy Eval and Treat Routine Reason for consultation: Ambulatory dysfunction/weakness Physical Therapy Eval and Treat Routine Reason for consultation: Ambulatory dysfunction/weakness Attending physician on discharge: Shaikh Bang Discharging clinician: Shaikh Bang Anticipated date of discharge: 08/25/24 DS: Diagnosis Discharge Diagnosis (1) Acute on chronic diastolic (congestive) heart failure: (2) Bacterial pneumonia: (3) Cellulitis of right leg: (4) Leukocytosis: Qualifiers: Leukocytosis type: leukemoid reaction Qualified Code(s): D72.823 - Leukemoid reaction (5) Atrial fibrillation: Qualifiers: Atrial fibrillation type: paroxysmal Qualified Code(s): I48.0 - Paroxysmal atrial fibrillation (6) Hypertension: Qualifiers: Hypertension type: primary hypertension Qualified Code(s): I10 - Essential (primary) hypertension DS: Summary Hospital Course Hospital Course: 73 y o male with hx of HTN, Afib presented to ED with one day hx of fever, generalized weakness, unsteadiness. Patient also reported mild shortness of breath. Work up in ED revealed elevated BNP, leukocytosis, fever, and abnormal CXR concerning for vascular congestion vs Pneumonia. Patient tested negative for influenza and COVID. Patient was treated with IV Doxycycline for presumed bacterial PNA by ED and admitted for continued observation for treatment and work up. On subsequent day, patient developed erythema, tenderness, pain and swelling of his right lower extremity consistent with right lower extremity cellulitis. Patient was started on IV vancomycin for right lower extremity cellulitis. Given his prior history of essential hypertension, A-fib, elevated BNP, echocardiogram was ordered that was concerning for acute on chronic diastolic heart failure for which patient was started on IV Lasix 40 twice daily. Acute extremity erythema, pain and swelling has considerably improved with IV antibiotics. Patient subjectively feels better and denies generalized weakness, unsteadiness and has not had any fevers since last evening. Patient is medically stable for discharge on oral doxycycline for right lower extremity cellulitis and possible bacterial pneumonia. I don't feel that there is need for PO lasix upon discharge but this can be addressed as outpatient. He is already on HCTZ as outpatient that should help manage his volume status. Patient will need to follow-up with PCP in 1 to 2 weeks. Patient is already established with [facility] cardiology and will benefit from follow-up with cardiology as outpatient in 2 weeks. Patient educated on worrisome signs and symptoms and was instructed to return to ED if his pain/erythema worsens. He was also instructed to return to ED if he had worsening shortness of breath bilateral lower extremity edema and or persistent fever. All questions and concerns answered. Case discussed with patient, patient's RN and case management. Status at Discharge Functional status at discharge: independent ambulation Overall status at discharge: patient is back to baseline Time Spent with Patient Time attestation: Total time spent providing and/or coordinating discharge services: Time spent: greater than 30 minutes Exam Constitutional Vital Signs, click to edit/add: Last Vital Signs Temp 98.8 F 08/25/24 08:14 Pulse 82 08/25/24 08:14 Resp 18 08/25/24 08:14 BP 125/76 08/25/24 08:14 Pulse Ox 94 L 08/25/24 08:14 O2 Del Method Room Air 08/25/24 08:14 Documenting provider has reviewed patient's vital signs: yes Common normals: no apparent distress and oriented x3 General appearance: cooperative Respiratory Common normals: normal respiratory effort and clear to auscultation bilaterally Effort & inspection: able to speak in complete sentences Auscultation: clear to auscultation bilaterally Cardio Common normals: regular rate, S1 normal heart sound and S2 normal heart sound Rate: regular rate Heart sounds: S1 normal and S2 normal Extremity Other: RLE erythema, tenderness c/w cellulitis. Improved from before. Neuro Common normals: oriented x3, moves all extremities and no focal motor deficits Psych Common normals: mental status grossly normal, denies hallucinations, denies homicidal ideation and denies suicidal ideation DS: Data Data Completed and Pending Labs on day of discharge: Labs from last 24 hours 08/25/24 05:07 WBC 7.3 RBC 4.11 L Hgb 13.0 L Hct 38.9 L MCV 94.6 H MCH 31.6 MCHC 33.4 RDW 13.6 Plt Count 181 MPV 9.6 Neut % (Auto) 68.0 Lymph % (Auto) 19.3 L [place] % (Auto) 12.2 H Eos % (Auto) 0.0 L Baso % (Auto) 0.1 L Neut # (Auto) 5.0 Lymph # (Auto) 1.4 [place] # (Auto) 0.9 H Eos # (Auto) 0.0 Baso # (Auto) 0.0 Abs Immat Gran (auto) 0.03 Imm/Tot Granulo (auto) 0.4 Sodium 133 L Potassium 3.5 Chloride 101 Carbon Dioxide 26.0 Anion Gap 9.5 BUN 18.0 Creatinine 0.90 Est GFR ( Amer) >60 Est GFR (Non-Af Amer) >60 BUN/Creatinine Ratio 20.0 Glucose 93 Calcium 9.6 Total Bilirubin 0.3 AST 23 ALT 31 Alkaline Phosphatase 45 L Total Protein 6.1 L Albumin 2.8 L Globulin 3.3 Albumin/Globulin Ratio 0.8 Discharge Plan Discharge Disposition: Home Health Service Discharge Medications: New doxycycline hyclate 100 mg tablet 100 mg PO BID 7 Days Qty: 14 0RF Continued baclofen 10 mg tablet 10 mg PO .qhs PRN (Reason: back galicia) Rx Instructions: at bedtime cholecalciferol (vitamin D3) 1,250 mcg (50,000 unit) capsule 50,000 unit PO .weekly flecainide 100 mg tablet 100 mg PO Q12H meloxicam 15 mg tablet 15 mg PO DAILY amlodipine 10 mg tablet 10 mg PO DAILY losartan-hydrochlorothiazide 100-25 mg tablet 1 tab PO DAILY Activity: increase activity as tolerated Diet: advance to your usual diet Print Language: Azerbaijani Forms: Portal Instructions Follow Up Appointments: August 30 @ 11:30am with Dr. Contreras [phone] Cardiology in 2 weeks
--- NOTE | 2024-08-25 09:55 | CM.NOTE ---
Rounds made with Dr. Cuenca, pt will discharge to home today with HH. Pt verbalizes understanding of home antibiotic and cellulitis.
[2024-08-25 10:59] VITALS: O2SAT 94
--- NOTE | 2024-08-25 11:00 | PT.DAILY ---
Physical Therapy Daily Note PT Daily Note/Assess Start: 08/25/24 10:55 Freq: Status: Active Protocol: Document 08/25/24 10:40 BETTE (Rec: 08/25/24 11:00 BETTE [id number]) Physical Therapy Daily Note/Assessment Time In/Time Out Time In 10:42 Time Out 10:54 Subjective Subjective Patient report feeling good today, feels like his balance has gotten a lot better. Therapeutic Exercise Time Therapeutic Exercise 4 Minutes (minutes) Therapeutic Exercise 0 Units Therapeutic Exercise Treatment Therapeutic Exercise Standing Exercises: Treatment Marches x 10 HR x 10 Mini squats x 10 Hip abd x 10 Therapeutic Activity Time Therapeutic Activity 8 Minutes (minutes) Therapeutic Activity 1 Units Therapeutic Activity Treatment Bed Mobility Ability Independent Chair Transfer Independent Ability Therapeutic Activity Patient completes supine to sit independent and then Comments sit to stand independent. Patient ambulates 520 feet with RW SBA and assistance for IV pole required. Total Physical Therapy Time Total Therapy 12 Minutes Total Physical 1 Therapy Units Summary Daily Note Summary Patient demonstrates improved distance with ambulation today to 520 feet with RW SBA and assistance for IV pole. Patient reports that his balance is better with ambulation and does not feel fatigued or SOB post ambulation. Standing program was completed at EOB with 1 UE support on rail. Patient in bed with call light in reach and all needs met post treatment.
[2024-08-25 12:48] VITALS: O2SAT 94
--- NOTE | 2024-08-29 13:48 | CM.DCFOLLOWU ---
Person spoke with:patient How are you feeling?well How is your pain?none Did you understand your discharge instructions?yes Do you have any questions about your discharge instructions?no Were you given any prescriptions at discharge?yes Were you able to get your prescriptions filled?yes Do you understand how to take your medications as ordered? yes Do you have any questions about your follow up appointment and do you plan to keep your follow up appointment? no questions, follow up tomorrow Is there anything else that you would like to discuss? no Questions/Comments/Concerns/Other: none
== END 2024-08-25 12:05 | disposition home health service (06) ==
LOC: ER 17:43 → MS 18:57
PROVIDERS: Admitting Provider Internal Medicine; Emergency Provider Emergency Medicine; PCP Internal Medicine; Visit Provider Internal Medicine
DX: I11.0 Hypertensive heart disease with heart failure (principal); I50.33 Acute on chronic diastolic (congestive) heart failure; L03.115 Cellulitis of right lower limb; R06.02 Shortness of breath; R50.9 Fever, unspecified; I48.91 Unspecified atrial fibrillation; R53.1 Weakness; R26.81 Unsteadiness on feet; J15.9 Unspecified bacterial pneumonia; Z87.891 Personal history of nicotine dependence; D72.829 Elevated white blood cell count, unspecified
CPT/HCPCS: 36415; 71045; 71250; 80053; 83605; 83880; 84484; 85007; 85025; 85027; 85610; 87040; 87804; 87811; 93005; 93306; 94761; 96365; 96366; 96367; 96372; 96375; 97161; 97165; 97530; 99285; G0378; J0696; J1650; J1938; J3370

== ENCOUNTER 2024-08-31 10:12 | Outpatient (OUT) | payer MEDICARE, OTHER, SELFPAY ==
--- NOTE | 2024-08-31 10:48 | XR_ITS ---
[place] [id number] Patient Name: BANG SHARMA MRN: [id number] date: 1950 Sex: M Assigned Patient Location: [place] Current Patient Location: [place] Accession/Order Number: [id number] Exam Date: 08/31/2024 11:18 Report Date: 08/31/2024 11:19 At the request of: NELI LO DO Procedure: XR chest 2V XR chest 2V 08/31/2024 10:56 AM SIGNS AND SYMPTOMS: ^Pulmonary Venous Congestion PROTOCOL: Frontal and lateral graphs of the chest COMPARISON: 08/24/2024 FINDINGS: The trachea is midline. The heart and mediastinal structures are within normal limits. The lung parenchyma is clear. The bony thorax is intact. Degenerative changes are noted in the thoracic spine. The chest wall. XR/XR chest 2V IMPRESSION: No acute cardiopulmonary pathology. Impression dictated by: Jeff Apple M.D. 08/31/2024 11:19 AM Dictation Location: [place] [id number] Electronically authenticated by: [id number] Y Date: 08/31/2024 11:19
== END 2024-08-31 10:13 | disposition home or self-care (01) ==
LOC: US 10:13
PROVIDERS: PCP Internal Medicine; Visit Provider Internal Medicine
DX: M79.89 Other specified soft tissue disorders (principal); L03.115 Cellulitis of right lower limb; R09.89 Other specified symptoms and signs involving the circulatory and respiratory systems
CPT/HCPCS: 71046; 93971

== ENCOUNTER 2024-11-22 13:12 | Outpatient (OUT) | payer MEDICARE, OTHER, SELFPAY ==
--- OUTSIDE RECORDS SUMMARY | 2024-11-14 06:27 | XMS_ITS | Encounter Summary ---
Author Organization [facility] Address [address] [place] [id number] Care Team Providers Care Hide Buffer Name Role Phone Alvin Contreras DO Primary Care Provider [phone] Source Comments In the event this information is protected by the Federal Confidentiality of Alcohol and Drug AbusePatient Records regulations: The Federal rules restrict any use of the information to criminally investigate or prosecute any alcohol or drug abuse patient.[facility] Encounter Details Date Type Department Care Team (Latest Contact Info) Description 11/14/2024 6:27 AM EDT - 11/15/2024 8:46 AM EDT Hospital Encounter [place] [id number] [place] [address] [place], [place] [id number] [facility] ([facility]) [E21.3] Discharge Disposition: Home Social History Tobacco Use Types Packs/Day Years Used Date Smoking Tobacco: Never Passive Smoke Exposure: Past Smokeless Tobacco: Never Alcohol Use Standard Drinks/Week Comments Not Currently 0 (1 standard drink = 0.6 oz pur e alcohol) PHQ-2 Answer Date Recorded PHQ-2 score 0 06/30/2019 Area Deprivation Index Answer Date Mumtaz rded National Score (1-100), lower number is lower ri sk 60 01/13/2023 State Score (1-10), lower number is lower risk 4 01/13/2023 Data from: https://www.neighborhoodatlas.medicine.[facility]/. Last address used for calculation [address] [address] 01/13/2023 Sex and Gender Information Value Date Recorded Sex Assigned at Male 11/23/2019 10:00 AM EDT Legal Sex Male 8:05 AM EST Gender Identity Not on file Sexual Orientation Straight 11/23/2019 10 :00 AM EDT documented as of this encounter Last Filed Vital Signs Vital Sign Reading Time Taken Comments Blood Pressure 128/70 11/15/2024 4:49 AM EDT Pulse 54 11/15/2024 4:49 AM EDT Temperature 36.4 C (97.5 F) 11/15/2024 4:49 AM EDT Respiratory Rate 18 11/15/2024 4:49 AM EDT Oxygen Saturation 96% 11/15/2024 4:49 AM EDT Inhaled Oxygen Concentration - - Weight 117.9 kg (259 lb 14.8 oz) 11/14/2024 9:38 AM EDT Height 188 cm (6' 2 ) 11/14/2024 9:38 AM EDT Body Mass Index 33.37 11/14/2024 9:38 AM EDT documented in this encounter Functional Status * Are you deaf or do you have serious difficulty hearing? Answer Date of Assessment Author No 08/31/2017 4:00 PM EDT Jeevan Strong RN * Are you blind or do you have serious difficulty seeing, even when wearing glasses? Answer Date of Assessment Author No 08/31/2017 4:00 PM EDT Jeevan Strong RN * Do you have serious difficulty walking or climbing stairs? Answer Date of Assessment Author No 08/31/2017 4:00 PM EDT Jeevan Strong RN * Do you have difficulty dressing or bathing? Answer Date of Assessment Author No 08/31/2017 4:00 PM EDT Jeevan Strong RN * Because of a physical, mental, or emotional condition, do you have difficulty doing errands alone such as visiting a doctor's office or shopping? Answer Date of Assessment Author No 08/31/2017 4:00 PM EDT Jeevan Strong RN documented as of this encounter Mental Status * Because of a physical, mental, or emotional condition, do you have serious difficulty concentrating, remembering, or making decisions? Answer Entry Date Author No 08/31/2017 4:00 PM EDT Jeevan Strong RN documented in this encounter Discharge Instructions * Discharge Instr - Other Orders* Tiffany Sanchez MD - 11/14/2024 11:33 AM EDT My Hospital Stay and Summary Date of Admission: 11/14/2024 Date of Discharge: 11/15/2024 Disposition after Discharge: Home with Self Care Condition at Discharge: Stable Doctors and Medical Team: Main Attending Physician: Geneva Samayoa MD Primary Care Physician (Family Doctor): Alvin Contreras DO Treatment Team: Attending Provider: Geneva Samayoa MD This is a summary of your hospital stay. Please read it carefully and share it with your family andhealthcare providers. The Reason for Hospitalization/Main Diagnosis: Primary hyperparathyroidism Operations Performed while in the Hospital: Parathyroidectomy Test Results Not Available at this Time: Pathology report from surgery Hospital course: You presented to the hospital for a planned parathyroidectomy. During surgery, your right upper andleft upper parathyroid gland(s) was/were removed. The surgery was without complication and you tolerated the procedure well. Post- operatively, you recovered in PACU before being transferred to a regular nursing floor for overnight monitoring. On the day of discharge, your vitals were stable, your labs were reviewed, your pain was controlled, you were tolerating a diet, and you were discharged home. Discharge instructions: These instructions explain what you or your senior care assistant need to do to continue your care at home or at another healthcare facility. Please go over these instructions with your nurse and senior care assistant. If you are not sure about something, please ask. Pain Management:: Most people complain of neck soreness after parathyroid surgery. The soreness/pain will get progressively better. To alleviate this discomfort, you may take Tylenol and/or ibuprofen. Some people find applying ice packs over the incision helpful as well. The typical dose we recommend for pain medication is 500 mg every 6 hours as needed for Tylenol, and 400 mg every 6 hours as needed for ibuprofen. You may take both Tylenol and ibuprofen together, or alter the dosing every 3 hours (for example: Tylenol at 9:00 am, ibuprofen at 12:00 pm, Tylenol at 3:00 pm, etc.). Please be aware that certainmedications including Percocet and Allgood contain Tylenol. Do not take more than 4 grams of Tylenol in one day, including the Tylenol in any combination medications. Medications: HOME MEDICATIONS: You may resume all of your home medications, unless specified otherwise (see below). If you take any anti-coagulation medication at home, including Aspirin, Clopidogrel (Plavix), Warfarin (Coumadin), Rivaroxaban (Xarelto), Apixaban (Eliquis), or Lovenox, we generally recommend that you wait for 5 days after your surgery before resuming these medications, unless specified otherwise (see below). Specific instructions for YOU: We reviewed that you take aspirin at home. Please resume this medication on Sunday 11/19, five daysafter surgery. THYROID MEDICATIONS: If you were on thyroid medications at home prior to your parathyroid surgery, please continue taking the home dose. You do not need to start any new thyroid medication(s) after parathyroid surgery. CALCIUM AND VITAMIN D MEDICATIONS: Your body's calcium levels are controlled by four small glands called the parathyroid glands located behind your thyroid. Your calcium level may become low immediately following your parathyroid surgery, until your body becomes adjusted to having fewer parathyroidglands. Therefore, you will need to take calcium and vitamin D supplements following your surgery. These medications are prescribed to you but may also be picked up [id number]. The recommended dosing is Calcium-Vitamin D3 500mg-200IU three times per day. However, slightly different dosing (calcium 400 mg or 600 mg three times per day) is acceptable as well. Please take this supplementation until your follow-up appointment. Depending on your calcium and vitamin D levels outpatient, you will be advised to continue or discontinue these supplementations. If you were already on vitamin D supplementations at home prior to surgery, please continue to take your home supplementation in addition to thenew supplementation. If you feel numbness and/or tingling or cramping in your hands/feet or around your mouth, this can be a sign of low calcium. If you experience this, take 1-2 tablets of calcium carbonate 500 mg (TUMStablet) every 1-2 hours as needed for symptomatic relief, in addition to your calcium-vitamin D tablet. If this sensation lasts more than 8 hours despite taking additional calcium carbonate tablets, please call the office. If you are also taking Synthroid (Levothyroxine): do not take calcium within 4 hours of Synthroid (Levothyroxine). We recommend taking Synthroid (Levothyroxine) in the morning as described above, andthen take the calcium at lunch, dinner, and bedtime. Calcitriol: Not applicable Medication List ASK your doctor about these medications amLODIPine 10 mg tablet Commonly known as: NORVASC Aspirin 81 mg Tab flecainide 100 mg tablet Commonly known as: TAMBOCOR losartan-hydroCHLOROthiazide 100-25 mg per tablet Commonly known as: HYZAAR Magnesium 30 mg tablet meloxicam 15 mg tablet Commonly known as: MOBIC Preventing Constipation: Both ucfa-zfu-njpmifo and prescription medications are available to treat constipation. Start with 1 of the following icih-uvx-lrhtwrv medications first and then add others as needed. Docusate sodium (Colace??) 100 mg twice daily. This is a stool softener that causes few side effects. Do not take it with mineral oil. Mineral Oil 2 tablespoons daily. Polyethylene glycol (MiraLAX??) 17 grams daily. Milk of Magnesia, as directed. If you haven't had a bowel movement in 3 days, call your doctor or nurse. Wound Care/Surgical Site Care: Over your incisions, you have skin glue and small white strips (steri-strips). Do not peel these off. They will fall off on their own in about 1-2 weeks. Please avoid immersing the incision under water: avoid tub baths, hot tubs, swimming, or soaking for 2 weeks after surgery. You may shower one day after surgery. You may allow water and mild soap to run over the incisions, but DO NOT SCRUB the incisions. Watch for any signs of excessive bleeding or infection including increased swelling, pain, redness,thick drainage, or fever. If you notice any of these symptoms, please call and speak with a doctor or nurse. Do not use any lotions or ointments on your incision until it is healed. Your scar will continue tofade for a year and a half after surgery. After your scar is healed, you should use sunscreen during prolonged or intense sun exposure. Drain: Not applicable Diet: Continue your normal diet at home. We recommend all patients eat a low fat, low sodium, balanced diet for their long-term health. If you would like a referral to medical weight loss or a flake miller wheat and oats, let us know at your follow up appointment and we will be happy to arrange this. There are no restrictions on what you may eat after surgery, but soft foods may be easier to swallow in the first few days. Activity and Exercise: Please avoid strenuous exercise, including lifting, pushing, or pulling greater than 10 lbs (the weight of a gallon of milk) after surgery for at least TWO WEEKS or until cleared by your surgeon at afollow-up appointment. Strenuous exercise can hinder proper healing and can increase the risk of bleeding. However, you may walk and use the stairs and engage in light aerobic activity. Sexual activity is okay. After a week, you may advance activity as tolerated. For driving safety, do not drive until you have complete range of motion in your neck and can turn it comfortably and brake for emergencies without hesitation. Do not go alone the first time that you drive. Follow-Up Appointment Reminders: (A list of any scheduled appointments is at the end of this document). Please call the virtualization engineer at [phone] if no postoperative appointment has been made or if you would like to make a change in your appointment. What if I have other questions? If you have any questions or concerns, please talk with your doctor or nurse. A temperature of 101?? F (38.3?? C) or higher Pain that does not get better with your medications Redness, swelling, or drainage from your incision that is foul smelling or pus-like No bowel movement for 3 days or longer Nausea or vomiting Diarrhea Calf swelling or difficulty breathing Fast heart rate Any new symptom or physical change Any questions or concerns You can call your surgical team Geneva Samayoa MD [phone] during office hours with any concerns orquestions. After hours, please call the ballpoint pen assembly machine operator at [phone] and ask to speak with the fellow on-call for Endocrine Surgery. Go to the Emergency Room if you experience chest pain or sudden or worsening shortness of breath, are unable to reach your physician, or have any concern for a life threatening issue. documented in this encounter Medications at Time of Discharge acetaminophen (TYLENOL) 500 mg tablet Take 1 tablet by mouth every 4 hours as needed for pain. 11/15/2024 calcium carbonate (TUMS) 500 mg chew Take 1 tablet by mouth every hour as needed (mouth or hand numbness or tingling). 30 tablet 11/15/2024 calcium-carbonate -vitamin D3 500 mg-5 mcg (200 unit) per tablet Take 1 tablet by mouth three times a day. 90 tablet 11/15/2024 Aspirin 81 mg tab Take 81 mg by mouth. meloxicam (MOBIC) 15 mg tablet Take 15 mg by mouth once daily. flecainide (TAMBOCOR) 100 mg tablet Take 100 mg by mouth two times a day. 10/08/2021 Magnesium 30 mg tablet Take 500 mg by mouth once daily. amLODIPine (NORVASC) 10 mg tablet Take 10 mg by mouth once daily. 3 08/02/2018 losartan-hydrochl orothiazide (HYZAAR) 100-25 mg per tabletIndications :Neoplasm of unspecified behavior of bone, soft tissue, and skin Take 1 tablet by mouth once daily. 03/20/2017 documented as of this encounter Progress Notes * Esteban Campa MD - 11/15/2024 7:05 AM EDT ENDOCRINE SURGERY POST-OP CHECK Name: Bang Sharma Date: November 14, 2024 Patient is POD #1 s/p parathyroidectomy. Gland(s) removed: TIMMY MEDINA S: Patient is recovering well with no acute events overnight. Reports no pain or soreness. No dysphagia. Voice is normal, and patient denies paresthesias. O: PHYSICAL EXAM: BP 128/70 Pulse (!) 54 Temp 36.4 ??C (97.5 ??F) (Oral) Resp 18 Ht 188 cm (6' 2 ) Wt 117.9kg (259 lb 14.8 oz) SpO2 96% BMI 33.37 kg/m?? General Appearance: In no acute distress. Well appearing. Neuro: Alert and oriented x3. Neck: soft, incision clean/dry/intact, no evidence of deep neck hematoma Abdomen: Soft. Non-distended. Non-tender. No guarding or rebound. Extremities: Warm and well perfused. Intake/Output Summary (Last 24 hours) at 11/15/2024 0705 Last data filed at 11/14/2024 0906 Gross per 24 hour Intake 1000 ml Output 5 ml Net 995 ml IOPTH Pre: 405 Post: 73 ASSESSMENT: Bang Sharma is POD 1 s/p parathyroidectomy and recovering appropriately. PLAN of Care: - Regular diet - No SQH - SCDs - Multimodal pain regimen, minimize narcotics - Scheduled calcium-D3 500mg-200IU TID; calcium carbonate 500mg prn - Resume home meds as appropriate - Home Esteban Campa MD General Surgery Resident-[id number] Endocrine Surgery Department Pager: [phone] * Tiffany Sanchez MD - 11/14/2024 11:28 AM EDT ENDOCRINE SURGERY POST-OP CHECK Name: Bang Sharma Date: November 14, 2024 Patient is POD #0 s/p parathyroidectomy. Gland(s) removed: TIMMY MEDINA S: Evaluated patient at bedside for post-op check, and the patient is recovering appropriately. Reports no pain or soreness. Sitting up and eating food, reporting no dysphagia. Neck is soft with mildpuffiness around the incision site but no significant swelling, voice is normal, and patient deniesparesthesias. O: PHYSICAL EXAM: BP 141/83 Pulse (!) 59 Temp 36.3 ??C (97.3 ??F) (Oral) Resp 13 Ht 188 cm (6' 2 ) Wt 117.9kg (259 lb 14.8 oz) SpO2 96% BMI 33.37 kg/m?? General Appearance: In no acute distress. Well appearing. Neuro: Alert and oriented x3. Neck: soft, incision clean/dry/intact, no evidence of deep neck hematoma Abdomen: Soft. Non-distended. Non-tender. No guarding or rebound. Extremities: Warm and well perfused. Intake/Output Summary (Last 24 hours) at 11/14/2024 1128 Last data filed at 11/14/2024 0906 Gross per 24 hour Intake 1000 ml Output 5 ml Net 995 ml IOPTH Pre: 405 Post: 73 ASSESSMENT: Bang Sharma is POD 0 s/p parathyroidectomy and recovering appropriately. PLAN of Care: - Regular diet - No SQH - SCDs - Multimodal pain regimen, minimize narcotics - Scheduled calcium-D3 500mg-200IU TID; calcium carbonate 500mg prn - Follow-up PTH and Ca in AM - Resume home meds as appropriate - Monitor overnight in the surgical floor Tiffany Sanchez MD [phone] Fellow / Clinical Associate, Endocrine Surgery documented in this encounter OR Notes * Brief Op Note - Tiffany Sanchez MD - 11/14/2024 8:19 AM EDT Brief Operative Note Patient Name: Bang Sharma LOG ID: [id number] Surgery/Procedure Date: 11/14/2024 Surgeon(s)/Proceduralist(s) and Appliance Assembler(s): Surgeons and Role: * Geneva Samayoa MD - Primary * Tiffany Sanchez MD - Resident - Assisting Procedure(s): Parathyroidectomy (Bilateral neck exploration; excision of RU and TIMMY gland(s)) Incision/Procedure Start Time: 7:40 AM Incision Close/Procedure End Time: Anesthesia: General Findings: Four parathyroid glands identified: - RU: Massively enlarged, excised. - RL: Normal. - TIMMY: Moderately enlarged, excised. - LL: Normal. Input: Crystalloid: See anesthesia record Output: See anesthesia record Estimated Blood Loss: 5 mL Specimens: ID Type Source Tests Collected by Time Destination 1 : Pre PTH Blood Blood INTRAOPERATIVE PTH Geneva Samyaoa MD 11/14/2024 7:49 AM 2 : Post PTH Blood Blood INTRAOPERATIVE PTH Geneva Samayoa MD 11/14/2024 8:10 AM A : right upper [id number] Tissue Parathyroid Gland, Right SURGICAL PATHOLOGY Geneva Samayoa MD 11/14/2024 7:55 AM B : Left upper 12x9x3 Tissue Parathyroid Gland, Left SURGICAL PATHOLOGY Geneva Samayoa MD 11/14/2024 8:04 AM C : right upper [id number] Tissue Parathyroid Gland, Right SURGICAL PATHOLOGY Geneva Samayoa MD 11/14/2024 8:02 AM Implants: * No implants in log * Drains: none Wound Classification: Class 1, operative wound clean, non-traumatic, with no inflammation encountered, no break in technique, gastrointestinal and genitor- urinary tracts not entered Pre-Op/Pre-Procedure Diagnosis: Primary hyperparathyroidism Post-Op/Post-Procedure Diagnosis: same Post-Op Plan: Recover in PACU. SIGNATURE: Tiffany Sanchez MD DATE: 11/14/24 TIME: 8:19 AM * Operative Report - Geneva Samayoa MD - 11/14/2024 12:00 AM EDT [facility] - Operative Report BANG SHARMA : 1950 AGE: 74. SEX: M PATIENT TYPE: A HOSP SVC: ENDOCRINE SCHNEIDER LOCATION: [facility] ATTENDING PHYSICIAN: Geneva Samayoa MD CSN NUMBER: [id number] DATE OF SURGERY/PROCEDURE: 11/14/2024 INCISION/PROCEDURE START TIME: 7:40 a.m. INCISION CLOSE/PROCEDURE END TIME: 8:16 a.m. PREOPERATIVE DIAGNOSIS: Primary hyperparathyroidism. POSTOPERATIVE DIAGNOSIS: Primary hyperparathyroidism. SURGEON: Geneva Samayoa MD UM RN: Tiffany Sanchez MD SURGERY/PROCEDURE: Parathyroid exploration with excision of the right upper and left upper parathyroid glands, selective venous catheterization for parathyroid hormone measurement, and intraoperativeneck ultrasound. ANESTHESIA: General. OPERATIVE INDICATION: The patient is a 74-year-old male with a well-documented history of primary hyperparathyroidism. He is being taken to the operating room for a parathyroid exploration. The indications, risks, benefits, and alternatives of the above procedures were reviewed with the patient, who gave informed consent to proceed. OPERATIVE FINDINGS: Intraoperative neck ultrasound revealed a thyroid gland that was overall normalin size. Posterior to the mid aspect of the left thyroid gland was a potential lesion. No other areas were seen to suggest an abnormal parathyroid gland. The images were electronically archived. At exploration, he was found to have an enlarged right upper parathyroid gland measuring 31 x 18 x 10 mm. This was excised and sent for frozen section, confirming it to be hypercellular parathyroid tissue. The left upper parathyroid was also found to be enlarged, measuring 12 x 9 x 3 mm. This was excised and sent for frozen section, confirming it to be hypercellular parathyroid tissue. The lower parathyroid glands were identified in their normal anatomic locations, were of normal in size and consistency, and easily preserved. Intraoperative venous sampling for parathyroid hormone measurement was obtained from the right internal jugular vein. The pre-PTH measured 405. Ten minutes after excision of the upper parathyroid glands, it fell to 73. The patient tolerated the procedure well. DESCRIPTION OF PROCEDURE: The patient was taken to the operating room and placed supine on the operating table. After induction of general endotracheal anesthesia, a beanbag support was used to elevate the thoracic spine. The neck was gently hyperextended. Intraoperative neck ultrasound was performed using an ultrasound machine with a small parts transducer. The findings were as noted above. The neck was prepped and draped in the usual sterile fashion. A 3-cm transverse incision was made low inthe neck. This was carried down through the subcutaneous tissue and platysma with electrocautery. Inferior and superior subplatysmal flaps were raised. The strap muscles were from one anothe r and from the anterior surface of the thyroid gland. Using medial and cephalad retraction on the left thyroid gland, an enlarged left upper parathyroid gland was identified. This was circumferentially mobilized. Attention was turned to the left lower neck, where a normal left lower parathyroid gland was identified. Attention was then turned to the right side of the neck. Using medial and cephalad retraction on the right thyroid gland, an enlarged right upper parathyroid gland was identified. This was circumferentially mobilized. Attention was turned to the right lower neck, where a normal right lower parathyroid gland was identified. A pre-PTH was sent. The upper parathyroid glands were excised and sent for frozen section. A post-PTH was sent 10 minutes afterwards. The wound was then irrigated and checked for hemostasis. The strap muscles were closed with individual layers of 4-0 Vicryl suture. The platysma was similarly approximated. The skin was approximated with a running 4-0 Prolene subcuticular suture. The skin was sealed with an adhesive and steristrips, and the Prolene was removed. The patient tolerated the procedure well. The patient was taken to the recovery room, extubated, and in good condition. Dr. Samayoa served as primary and co-surgeon and scrubbed from skin incision to completion of skin closure. There was no qualified resident available to help with this case, and Dr. Sanchez was asked to serve as first responder. During the course of the dissection, the first responder assisted with mobilization, vascular isolation, and division. ESTIMATED BLOOD LOSS: Minimal. DRAINS: None. SPECIMENS: Sent to Pathology: 1. Right upper parathyroid gland. 2. Left upper parathyroid gland. COUNTS: Sponge and needle counts correct. COMPLICATIONS: There were no intraoperative complications. Geneva Samayoa MD JS:[id number] /[id number] documented in this encounter Plan of Treatment Upcoming Encounters Date Type Department Care Team (Late st Contact Info) Description 11/29/2024 2:20 PM EDT [facility] Endocrine Surgery [address] [id number] Geneva Samayoa MD [address] [place] [address] post op 02/28/2025 2:20 PM EST Office Visit Endocrinology [facility] [place], [place] [id number] Gaudencio Lewis MD [address] [place] [address] [address] [place], [place] [id number] Return in about 6 months (around 02/15/2025). documented as of this encounter Procedures Procedure Name Priority Date/Time Associated Diagnosis Comments PTH INTACT BLD Routine 11/15/2024 4:01 AM EDT CALCIUM TOTAL BLD Routine 11/15/2024 4:0 1 AM EDT ECG COMPLETE Routine 11/14/2024 11:35 AM EDT INTRAOPERATIVE PTH Routine 11/14/2024 8: 10 AM EDT Hyperparathyroidis m (HCC) SURGICAL PATHOLOGY Routine 11/14/2024 7: 55 AM EDT Hyperparathyroidis m (HCC) INTRAOPERATIVE PTH Routine 11/14/2024 7: 49 AM EDT Hyperparathyroidis m (HCC) INTRA OP ULTRASONIC GUIDANCE 11/14/2024 7:23 AM EDT Hyperparathyroidis m (HCC) PARATHYROIDECTOMY/EXPLO RATION PARATHYROIDS 11/14/2024 7:23 AM EDT Hyperparathyroidis m (HCC) US THYROID/PARATHYROID (POC) ENDO USE ONLY Routine 11/14/2024 6:25 AM EDT documented in this encounter Results * PTH INTACT (11/15/2024 4:01 AM EDT) PTH, Intact 16 15 - 65 pg/mL 11/15/2024 5:41 AM EDT [facility] Blood BLOOD SPECIMEN / Unknown Venipuncture / Unknown 11/15/2024 4:01 AM EDT 11/15/2024 4:39 AM EDT us Tiffany Sanchez MD LABORATORY Final Result [facility] [address] [place] [address], * CALCIUM, TOTAL (11/15/2024 4:01 AM EDT) Calcium, Total 9.2 8.5 - 10.2 mg/dL 11/15/2024 5:27 AM EDT [facility] Blood BLOOD SPECIMEN / Unknown Venipuncture / Unknown 11/15/2024 4:01 AM EDT 11/15/2024 4:38 AM EDT us Tiffany Sanchez MD LABORATORY Final Result [facility] [address] [place] [address], * ECG COMPLETE (11/14/2024 11:35 AM EDT) Ventricular Rate 64 BPM [facility] Atrial Rate 64 BPM [facility] P-R Interval 164 ms [facility] QRS Duration 192 ms [facility] QT Interval 488 ms [facility] QTC Calculation (Bazett) 503 ms [facility] Calculated P [place] 73 degrees [facility] Calculated R [place] -76 degrees [facility] Calculated T [place] 19 degrees [facility] 11/14/2024 11:3 5 AM EDT [facility] - 11/14/2024 12:20 PM EDT Normal sinus rhythm Right bundle branch block Left anterior fascicular block Bifascicular block Septal infarct , age undetermined Abnormal ECG No previous ECGs available Confirmed by KEON MAGAÑA MD ([id number]) on 11/14/2024 12:20:23 PM Narrative [facility] - 11/14/2024 12:20 PM EDT NAME : BANG SHARMA PID : [id number] : 1950 Gender : Male Race : ORD : [id number] Procedure Date : Nov 14 2024 11:35:23 Edit Date : Nov 14 2024 12:20:28 Diagnosis: Normal sinus rhythm Right bundle branch block Left anterior fascicular block Bifascicular block Septal infarct , age undetermined Abnormal ECG No previous ECGs available Confirmed by KEON MAGAÑA MD ([id number]) on 11/14/2024 12:20:23 PM Test Reason : Post-OP Location : 1 : [facility] [address]11 Overread By : KEON MAGAÑA MD Edited By : KEON MAGAÑA MD Referred By : , Acquired by : DUONG KUMAR us Tiffany Sanchez MD EKG Final Result Performing Organization Address [facility] Co de Phone Number [facility] [address] [place] [phone] * (ABNORMAL) INTRAOPERATIVE PTH (11/14/2024 8:10 AM EDT) Intraoperative PTH 73(H) 15 - 65 pg/mL 11/14/2024 9:11 AM EDT [facility] Blood BLOOD SPECIMEN / Unknown 11/14/2024 8:10 AM EDT 11/14/2024 8:50 AM EDT Comment:Pre-op diagnosis: Hyperparathyroidism (HCC) [E21.3] us Geneva Samayoa MD LABORATORY Final Res ult [facility] [address] [place] [address], * SURGICAL PATHOLOGY (11/14/2024 7:55 AM EDT) Case Report Surgical Pathology Report Case: [id number] Authorizing Provider: Geneva Samayoa MD Collected: 11/14/2024 07:55 AM Ordering Location: [facility] Surgery Received: 11/14/2024 08:04 AM Pathologist: Deysi Singh MD Intraop: Ella Johnson MD Specimens: A) - Parathyroid Gland, Right, right upper [id number] B) - Parathyroid Gland, Left, Left upper 12x9x3 C) - Parathyroid Gland, Right, right upper [id number] 11/16/2024 11:04 AM EDT [facility] FINAL DIAGNOSIS A, C. Right upper parathyroid, excision: - Hypercellular parathyroid. B. Left upper parathyroid, excision: - Hypercellular parathyroid. SHANA November 16, 2024 11/16/2024 11:04 AM EDT [facility] at 1104 EDT Gross Description A. Parathyroid Gland, Right FSA1: Received fresh for frozen section is one piece of brown soft tissue weighing 0.590 grams and measuring 2.2 x 0.9 x 0.6 cm. A statement services representative section is submitted for frozen section in FSA1. Gross examination performed at [facility], [address], [place] [id number] CLIA# [id number] B. Parathyroid Gland, Left FSB1: Received fresh for frozen section is one piece of brown soft tissue weighing 0.245 grams and measuring 0.9 x 0.9 x 0.3 cm. The tissue is entirely submitted for frozen section in FSB1. Gross examination performed at [facility], [address], [place] [address] CLIA# [id number] C. Parathyroid Gland, Right Labeled: Right upper 31 x 18 x 10 Received: In formalin Size: 2.8 x 1.5 x 0.9 cm Weight: 1640 mg Cassette code: Representatively in C1 (serially section) Gross examination performed at [facility], [address] [place] [address] MSL/MADIHA 11/14/24 12:25 PM 11/16/2024 11:04 AM EDT [facility] Intraoperative Diagnosis A. Parathyroid Gland, Right FSA1: Hypercellular parathyroid tissue (Ella Johnson MD) Intraoperative diagnosis performed at [facility], [address], [place] [id number] CLIA# [id number] B. Parathyroid Gland, Left FSB1: Hypercellular parathyroid tissue (Ella Johnson MD) Intraoperative diagnosis performed at [facility], [address] [place] [address] CLIA# [id number] 11/16/2024 11:04 AM EDT [facility] Clinical History Pre-op diagnosis: Hyperparathyroidis m (HCC) [E21.3] 11/16/2024 11:04 AM EDT [facility] Performing Lab Diagnostic interpretation performed at: [facility], [address] [place] [address], [place] [id number] CLIA# [id number] Warehouse Picker: Herson Cuenca MD 11/16/2024 11:04 AM EDT [facility] Disclaimer Laboratory Developed Test (LDT) Disclaimer: Performance characteristics of immunohistochemica l, immunofluorescent, and chromogenic in-situ hybridization tests have been determined by the performing laboratory within [facility]'s [facility] Pathology and Laboratory Medicine Department ([facility], [facility], [facility], [facility], [facility], [facility], or [facility]) in a manner consistent with CLIA requirements. One or more of these tests may not have been cleared or approved by the FDA. [facility] is regulated under CLIA as qualified to perform high-complexity testing. These tests are used for clinical purposes. These should not be regarded as investigational or for research. Positive and negative controls stain appropriately. 11/16/2024 11:04 AM EDT [facility] Tissue PARATHYROID STRUCTURE / Unknown 11/14/2024 7:55 AM EDT 11/14/2024 8:04 AM EDT Comment:Pre-op diagnosis: Hyperparathyroidism (HCC) [E21.3] Tissue specimen (specimen) PARATHYROID STRUCTURE / Unknown 11/14/2024 8:04 AM EDT 11/14/2024 8:11 AM EDT Comment:Pre-op diagnosis: Hyperparathyroidism (HCC) [E21.3] Tissue specimen (specimen) PARATHYROID STRUCTURE / Unknown 11/14/2024 8:02 AM EDT 11/14/2024 8:11 AM EDT Comment:Pre-op diagnosis: Hyperparathyroidism (HCC) [E21.3] us Geneva Samayoa MD SURGICAL PATHOLOGY Final Result [facility] [address] [place] [address], [facility] [address] [place] [address], * (ABNORMAL) INTRAOPERATIVE PTH (11/14/2024 7:49 AM EDT) Intraoperative PTH 405(H) 15 - 65 pg/mL 11/14/2024 8:42 AM EDT [facility] Blood BLOOD SPECIMEN / Unknown 11/14/2024 7:49 AM EDT 11/14/2024 8:04 AM EDT Comment:Pre-op diagnosis: Hyperparathyroidism (HCC) [E21.3] us Geneva Samayoa MD LABORATORY Final Res ult [facility] [address] [place] [address], * US THYROID/PARATHYROID (POC) ENDO USE ONLY (11/14/2024 6:25 AM EDT) Anatomical Region Laterality Modality Other 11/14/2024 6:25 AM EDT us Tiffany Sanchez MD IMAGES Final Result documented in this encounter Visit Diagnoses Diagnosis Hyperparathyroidism (HCC) Hyperparathyroidism, unspecified documented in this encounter Administered Medications Inactive Administered Medications - up to 3 most recent administrations Medication Order MAR Action Action Date Dose Rate Site acetaminophen 1,000 mg tab(s) (TYLENOL) 1,000 mg, ORAL, PRE-OP ONCE, 1 dose, On Thu11/14/24 at 0700, Preprocedure Given 11/14/2024 7:03 AM EDT 1,000 mg amLODIPine 10 mg tab(s) (NORVASC) 10 mg, ORAL, AT BEDTIME, First dose on Thu11/14/24 at 2100, Until Discontinued Given 11/14/2024 8:44 PM EDT 10 mg benzocaine-menthol 1 lozenge (CHLORASEPTIC) 1 lozenge, MUCOUS MEMBRANE (TOPICAL MOUTH & THROAT), EVERY 2 HOURS NEEDED, Starting on Thu11/14/24 at 0831, Until Thu11/14/24 at 0933, Sore Throat, First line therapy - every two hours as needed, Recovery or Phase I (only) Given 11/14/2024 9:01 AM EDT 1 lozenge vkzjeie-csjkyxylg-zkavvbd D3 500 mg-5 mcg (200 unit) 1 tablet 1 tablet, ORAL, 3 TIMES DAILY, First dose on Thu11/14/24 at 1300, Until Discontinued Given 11/15/2024 8:08 AM EDT 1 tablet Given 11/14/2024 8:44 PM EDT 1 tablet Given 11/14/2024 2:03 PM EDT 1 tablet flecainide 100 mg tab(s) (TAMBOCOR) 100 mg, ORAL, 2 TIMES DAILY, First dose on Thu11/14/24 at 2100, Until Discontinued Given 11/15/2024 8:08 AM EDT 100 mg Given 11/14/2024 8:44 PM EDT 100 mg hydroCHLOROthiazide 25 mg tab(s) 25 mg, ORAL, DAILY, First dose on Thu11/15/24 at 0900, Until Discontinued, losartan-hydroCHLOROthiazide tab(s) (HYZAAR) substituted to losartan tab(s) (COZAAR) and hydroCHLOROthiazide tab(s) (HYDRODIURIL, ESIDRIX) per Pharmacy and Therapeutics Committee Given 11/15/2024 8:08 AM EDT 25 mg losartan 100 mg tab(s) (COZAAR) 100 mg, ORAL, DAILY, First dose on Thu11/15/24 at 0900, Until Discontinued, losartan-hydroCHLOROthiazide tab(s) (HYZAAR) substituted to losartan tab(s) (COZAAR) and hydroCHLOROthiazide tab(s) (HYDRODIURIL, ESIDRIX) per Pharmacy and Therapeutics Committee Given 11/15/2024 8:08 AM EDT 100 mg NaCl 0.9% iv infusion 75 mL/hr, INTRAVENOUS, CONTINUOUS, Starting on Thu11/14/24 at 0700, Until Thu11/14/24 at 0828, Preprocedure New Bag/Syringe/Bottle 11/14/2024 7:03 AM EDT 75 mL/hr 75 mL/hr documented in this encounter Active and Recently Administered Medications Times are shown in EDT. Scheduled Medication Order 11/13/2024 11/14/2024 11/15/2024 acetaminophen 1,000 mg tab(s) (TYLENOL) (COMPLETED) 1,000 mg, ORAL, PRE-OP ONCE, 1 dose, On Thu11/14/24 at 0700, Preprocedure 0703 (Given - Provider: Latricia Deshpande RN) amLODIPine 10 mg tab(s) (NORVASC) 10 mg, ORAL, AT BEDTIME, First dose on Thu11/14/24 at 2100, Until Discontinued 2043 (Given - Provider: Sanrda Crain RN) iqthwlf-ugizittyz-ijalvdl D3 500 mg-5 mcg (200 unit) 1 tablet 1 tablet, ORAL, 3 TIMES DAILY, First dose on Thu11/14/24 at 1300, Until Discontinued 1402 (Given - Provider: Farida Dillard RN)2043 (Given - Provider: Sandra Crain RN) 807 (Given - Provider: Jamila Martinez RN) flecainide 100 mg tab(s) (TAMBOCOR) 100 mg, ORAL, 2 TIMES DAILY, First dose on Thu11/14/24 at 2100, Until Discontinued 2043 (Given - Provider: Sandra Crain RN) 807 (Given - Provider: Jamila Martinez RN) hydroCHLOROthiazide 25 mg tab(s)(Linked Group 1) 25 mg, ORAL, DAILY, First dose on Thu11/15/24 at 0900, Until Discontinued, losartan-hydroCHLOROthiazide tab(s) (HYZAAR) substituted to losartan tab(s) (COZAAR) and hydroCHLOROthiazide tab(s) (HYDRODIURIL, ESIDRIX) per Pharmacy and Therapeutics Committee 0808 (Given - Provider: Jamila Martinez RN) losartan 100 mg tab(s) (COZAAR)(Linked Group 1) 100 mg, ORAL, DAILY, First dose on Thu11/15/24 at 0900, Until Discontinued, losartan-hydroCHLOROthiazide tab(s) (HYZAAR) substituted to losartan tab(s) (COZAAR) and hydroCHLOROthiazide tab(s) (HYDRODIURIL, ESIDRIX) per Pharmacy and Therapeutics Committee 0808 (Given - Provider: Jamila Martinez RN) Continuous Medication Order 11/13/2024 11/14/2024 11/15/2024 lactated ringers iv infusion 75 mL/hr, INTRAVENOUS, CONTINUOUS, Starting on Thu11/14/24 at 1000, Until Thu11/15/24 at 1046, Saline Lock IV when taking adequate PO 1000 (Not Given - Provider: Farida Dillard RN - Reason: Based on RT/Nurses Assessment, LIP Notified) NaCl 0.9% iv infusion (CANCELED) 75 mL/hr, INTRAVENOUS, CONTINUOUS, Starting on Thu11/14/24 at 0700, Until Thu11/14/24 at 0828, Preprocedure 0703 (New Bag/Syringe/Bottle - Provider: Latricia Deshpande RN)827 (Infusion Complete - Provider: Remedios Prakash RN - Comment: [Order ends at this time. Document the following action when infusion is complete: Infusion Complete]) PRN Medication Order 11/13/2024 11/14/2024 11/15/2024 acetaminophen 500 mg tab(s) (TYLENOL) 500 mg, ORAL, EVERY 4 HOURS NEEDED, Starting on Thu11/14/24 at 0958, Until Thu11/15/24 at 1046, Mild Pain (1-3) - Enteral, Moderate Pain (4-6) - Enteral, Severe Pain (>/=7) - Enteral, If ordered PRN for pain, patient/guardian may elect to receive this medication for higher pain levels INSTEAD of the opioid, if preferred: Yes benzocaine-menthol 1 lozenge (CHLORASEPTIC) (CANCELED) 1 lozenge, MUCOUS MEMBRANE (TOPICAL MOUTH & THROAT), EVERY 2 HOURS NEEDED, Starting on Thu11/14/24 at 0831, Until Thu11/14/24 at 0933, Sore Throat, First line therapy - every two hours as needed, Recovery or Phase I (only) 0901 (Given - Provider: Remedios Prakash RN) benzocaine-menthol 1 lozenge (CHLORASEPTIC) 1 lozenge, MUCOUS MEMBRANE (TOPICAL MOUTH & THROAT), EVERY 2 HOURS NEEDED, Starting on Thu11/14/24 at 0958, Until Thu11/15/24 at 1046, Sore Throat, First Line Therapy bupivacaine 0.5 % injection (MARCAINE MDV) (CANCELED) X (OR/PROCEDURE) PRN, Starting on Thu11/14/24 at 0815, Until Thu11/14/24 at 0828, Intraprocedure 0815 (Given - Provider: Eliza Samayoa MD) calcium carbonate 500 mg chewable tab(s) (TUMS) 500 mg, ORAL, EVERY 1 HOUR NEEDED, Starting on Thu11/14/24 at 0958, Until Thu11/15/24 at 1046, See admin instructions, mouth or hand numbness or tingling, product contains 500 mg calcium carbonate (equivalent to 200 mg elemental calcium) ibuprofen 600 mg tab(s) (MOTRIN) 600 mg, ORAL, EVERY 6 HOURS NEEDED, Starting on Thu11/14/24 at 0958, Until Thu11/15/24 at 1046, breakthrough pain, If ordered PRN for pain, patient/guardian may elect to receive this medication for higher pain levels INSTEAD of the opioid, if preferred: Yes NaCl 0.9% iv flush bag 20 mL, INTRAVENOUS, NEEDED, Starting on Thu11/14/24 at 0958, Until Thu11/15/24 at 1046, See admin instructions, If no compatible primary is already running, infuse NaCl 0.9% as primary to flush tubing after non-chemotherapy, non-immunotherapy intermittent infusions. Administer at the same rate as intermittent infusion. Select the Flush Bag file on smart pump. ondansetron (PF) 4 mg injection (ZOFRAN) 4 mg, INTRAVENOUS, EVERY 6 HOURS NEEDED, Starting on Thu11/14/24 at 0958, Until Thu11/15/24 at 1046, Nausea/Vomiting - First Line - Parenteral, Give IV push over 2 minutes phenol 1 spray (CHLORASEPTIC) 1 spray, MUCOUS MEMBRANE (TOPICAL MOUTH & THROAT), EVERY 2 HOURS NEEDED, Starting on Thu11/14/24 at 0958, Until Thu11/15/24 at 1046, Sore Throat, Second Line Therapy Environmental Hazardous Drug: Use appropriate PPE. Linked Groups Order Group 1: losartan 100 mg tab(s) (COZAAR)Jump to med 100 mg, ORAL, DAILY, First dose on Thu11/15/24 at 0900, Until Discontinued, losartan-hydroCHLOROthiazide tab(s) (HYZAAR) substituted to losartan tab(s) (COZAAR) and hydroCHLOROthiazide tab(s) (HYDRODIURIL, ESIDRIX) per Pharmacy and Therapeutics Committee And hydroCHLOROthiazide 25 mg tab(s)Jump to med 25 mg, ORAL, DAILY, First dose on Thu11/15/24 at 0900, Until Discontinued, losartan-hydroCHLOROthiazide tab(s) (HYZAAR) substituted to losartan tab(s) (COZAAR) and hydroCHLOROthiazide tab(s) (HYDRODIURIL, ESIDRIX) per Pharmacy and Therapeutics Committee documented in this encounter Care Teams Hide Buffer Relationship Specialty Start Date End Date Alvin Contreras DO [address] [place] [address] PCP - General Internal Medicine 06/19/17 documented as of this encounter
--- OUTSIDE RECORDS SUMMARY | 2024-11-14 07:23 | XMS_ITS | Encounter Summary ---
Author Organization [facility] Address [address] [place] [id number] Care Team Providers Care Forensic Manager Name Role Phone Alvin Contreras DO Primary Care Provider [phone] Source Comments In the event this information is protected by the Federal Confidentiality of Alcohol and Drug AbusePatient Records regulations: The Federal rules restrict any use of the information to criminally investigate or prosecute any alcohol or drug abuse patient.[facility] Encounter Details Date Type Department Care Team (Late st Contact Info) Description 11/14/2024 7:23 AM EDT Anesthesia Event [facility] Surgery [id number] [place] [address] Sidney Larsen III, MD [address] [place] [address] Anesthesia Record Procedure Summary Procedure Name Responsible Anesthesiologist Anesthesia Start Time Anesthesia Stop Time PARATHYROIDECTOMY (Bilateral: Thyroid) Sidney Larsen III, MD 11/14/24 0723 11/14/24 0822 Events Date Time Event Comment 11/14/2024 0704 0723 An Start I have re-evalu ated the patient immediately prior to induction. 0723 An Start Data 0727 An Induction I have re-evalu ated the patient immediately prior to induction. 0732 An Intubation 0733 Anesthesia Ready 0740 Incision/Procedure Start 0805 Start Closing 0815 Emerge 0816 Procedure End 0820 An Extubation Patient : Airw ay suctioned clear; following commands with adequate responsiveness; strength and spontaneous ventilation confirmed; stable hemodynamics 0822 an stop data 0822 Handoff to RN I completed my handoff to the receiving nurse during which we: 1. Identified the patient 2. Identified the responsible provider 3. Reviewed the pertinent medical history 4. Discussed the surgical course 5. Reviewed intra-op anesthesia management and issues during anesthesia 6. Set expectations for post-procedure period 7. Allowed opportunity for questions and acknowledgement of understanding. 0822 An Stop Meds Name Total dexamethasone 4 mg/mL 4 mg fentaNYL 0.05 mg/mL 100 mcg glycopyrrolate 0.2 mg/mL 0.4 mg lidocaine (PF) injection 2 % 60 mg ondansetron 4 mg/2 mL 4 mg propofol bolus 150 mg propofol infusion 10 mg/mL 528,880 mcg rocuronium 10 mg/mL 50 mg sugammadex injection 100 mg/mL 200 mg remifentanil 1 mg in NaCl 0.9% 25 mL 468 .78 mcg NaCl 0.9% 700 mL * Agents Name ETO2 ETN2O Inspired N2O Set O2% Set Fresh Gas Flow O2 Flow Rate Air * Blood No blood administrations on file. Lines, Drains, and Airways Type Details Placement Removal Wound 11/14/24; 0740; Surg ical; Neck; Anterior 11/14/24 0740 by Kay Romero RN PIV 11/14/24; 0710; [facility]; Short; Right; Wrist; 20 Gauge; 11/15/24; 0739 11/14/24 0710 by Latricia Deshpande RN 11/15/24 0739 by Priya Hennessy PCNA Airway Endotracheal Tube; 0 11/14/24; 0732 (created via procedure documentation); 7.5 mm; Cuffed; No; 11/14/24; 0820 11/14/24 0732 by Nanda Hawkins APRN.C D STRIPPER 11/14/24 0820 by Nanda Hawkins APRN.C D STRIPPER documented in this encounter Social History Tobacco Use Types Packs/Day Years [...] is lower risk 4 01/13/2023 Data from: https://www.neighborhoodatlas.medicine.[facility]/. Last address used for calculation [address] [address] 01/13/2023 Sex and Gender Information Value Date Recorded Sex Assigned at Male 11/23/2019 10:00 AM EDT Legal Sex Male 8:05 AM EST Gender Identity Not on file Sexual Orientation Straight 11/23/2019 10 :00 AM EDT documented as of this encounter Last Filed Vital Signs Vital Sign Reading Time Taken Comments Blood Pressure 106/79 11/14/2024 8:20 AM EDT Pulse 67 11/14/2024 8:21 AM EDT Temperature - - Respiratory Rate 17 11/14/2024 8:21 AM EDT Oxygen Saturation 96% 11/14/2024 8:21 AM EDT Inhaled Oxygen Concentration - - Weight - - Height - - Body Mass Index - - documented in this encounter Functional Status * [...] of Assessment Author No 08/31/2017 4:00 PM MARYANNET Jeevan Strong RN documented as of this encounter Mental Status * Because of a physical, mental, or emotional condition, do you have serious difficulty concentrating, remembering, or making decisions? Answer Entry Date Author No 08/31/2017 4:00 PM EDT Jeevan Strong RN documented in this encounter Procedure Notes * Sidney Larsen III, MD - 11/14/2024 12:50 PM EDT POST ANESTHESIA EVALUATION NOTE : 1950 Procedure Summary Date: 11/14/24 Room / Location: [place] [address] / OR Anesthesia Start: 722 Anesthesia Stop: 821 Procedure: PARATHYROIDECTOMY (Bilateral: Thyroid) Diagnosis: Hyperparathyroidism (HCC) (Hyperparathyroidism (HCC) [E21.3]) Surgeons: Geneva Samayoa MD Responsible Provider: Sidney Larsen III, MD Anesthesia Type: general ASA Status: 2 Anesthesia Type: general Airway Type: ETT Last Vitals Vitals Value Taken Time BP 141/83 11/14/24 0938 Temp 36.3 ??C (97.3 ??F) 11/14/24 0938 Pulse 59 11/14/24 0938 Resp 13 11/14/24 0938 SpO2 96 % 11/14/24 0938 Post Anesthesia Patient Status Patient Evaluation: PACU. PACU/ICU Patient Condition: stable. Anticipated Disposition: inpatient floor planned admission. Neurological Status: aware and responsive. Pulmonary Status: breathing comfortably on room air Airway Control: returned to baseline unsupported. Cardiovascular Status: stable. Pain Management: clinically adequate Postoperative Hydration: acceptable. Intraoperative Events: no significant anesthesia events Post Operative Nausea/Vomiting Status: no significant post operative nausea or vomiting Recommendation: further care per PACU/ICU/floor team. Anesthesia Observations No Documentation SIGNATURE: Sidney Larsen MD PATIENT NAME: Juan David Duque DATE: November 14, 2024 TIME: 12:50 PM CSN: [id number] * Nanda Hawkins APRN.CRNA - 11/14/2024 7:46 AM EDTAssociated Order(s): Airway ANESTHESIOLOGY PROCEDURE NOTE Airway General Information Procedure Start Time/Medication Administration: 11/14/2024 7:32 AM Procedure End Time: 11/14/2024 7:32 AM Patient location during procedure: OR Staffing C D STRIPPER: Nanda Hawkins APRN.C D STRIPPER Performed by: C D STRIPPER Indications and Patient Condition Indications for airway management: anesthesia Preoxygenated: yes anesthesia circuit Method: sleep Difficult Mask: No Final Airway Details Final airway type: endotracheal airway Final Endotracheal Airway: ETT Cuffed: yes Successful intubation technique: video laryngoscopy Devices used: Garcia Endotracheal tube insertion site: oral Blade size: #3 ETT size (mm): 7.5 Measured from: lips Measurement (cm): 23 Placement verified by: capnometry Cormack-Lehane Classification: grade I - full view of glottis Number of attempts at approach: 1 Airway not difficult SIGNATURE: Nanda Chaudhari APRN.C D STRIPPER PATIENT NAME: Juan David Duque DATE: November 14, 2024 TIME: 7:46 AM CSN: [id number] * Sidney Larsen III, MD - 11/14/2024 7:03 AM EDT ANESTHESIOLOGY DAY OF SURGERY NOTE : 1950 Procedure Information Date/Time: 11/14/24729 Procedure: PARATHYROIDECTOMY (Bilateral: Thyroid) Location: [facility] OR05 / [facility] OR Surgeons: Geneva Samayoa MD Estimated body mass index is 34.02 kg/m?? as calculated from the following: Height as of 11/01/24: 188 cm (6' 2 ). Weight as of 11/01/24: 120.2 kg (264 lb 15.9 oz). Most recent hematocrit and potassium results: Hematocrit 44.3 11/01/2024 Potassium 4.5 11/01/2024 Relevant Problems ANESTHESIA (+) REMY (obstructive sleep apnea) CARDIO (+) Essential hypertension (+) Paroxysmal atrial fibrillation (HCC) (+) SVT (supraventricular tachycardia) (HCC) PULMONARY (+) REMY (obstructive sleep apnea) I - PHYSICAL EVALUATION AIRWAY Patient intubated: No. Tracheostomy tube not present Mallampati: II. TM distance: >3 FB. Neck ROM: full ROM without neurological symptoms. Mouth opening: adequate. Short neck: no. Thick neck: no Ramírez present: no Microretrognathia/Micronagthia/Recessed Chin: No DENTAL Dental findings: teeth intact. Additional exam findings: yes. CARDIOVASCULAR Normal cardiovascular observations. PULMONARY Normal pulmonary observations. II - ANESTHESIA PLAN ASA Score: 2 Anesthetic Plan: general Airway type: ETT The patient is not a current smoker. NPO Status: adequate Beta Lisa Administration of chronic beta lisa medication not planned. Monitoring Plan Monitoring plan: standard ASA. Post Procedure Analgesic Plan Postoperative analgesic plan: parenteral or oral opioids. Informed Consent Anesthetic risks, benefits, alternatives, personnel and consent discussed: yes. Patient / Responsible Democrat agrees to proceed: yes Patient / Surrogate agrees to blood products: blood products not planned DNR status not reviewed with patient and/or family prior to surgery. Significant changes in the patient condition since the History and Physical, not otherwise documented in primary service progress note: no. Potential Anesthesia issues that may suggest increased risk of complications or contraindication toplanned procedure: none. Vitals Value Taken Time BP 137/88 11/14/24 0645 Pulse 58 11/14/24 0645 Resp 20 11/14/24 0645 Temp 36.6 ??C (97.9 ??F) 11/14/24 0645 SpO2 98 % 11/14/24 0645 Facility-Administered Medications as of 11/14/2024 Medication Dose Route Frequency ??? lidocaine (PF) 10 mg/mL (1 %) 1-2 mg injection (XYLOCAINE) 0.1-0.2 mL INTRADERMAL PRN ??? NaCl 0.9% iv infusion 75 mL/hr INTRAVENOUS CONTINUOUS ??? acetaminophen 1,000 mg tab(s) (TYLENOL) 1,000 mg ORAL Pre-Op Once Outpatient Medications as of 11/14/2024 Medication Sig ??? meloxicam (MOBIC) 15 mg tablet Take 15 mg by mouth once daily. ??? flecainide (TAMBOCOR) 100 mg tablet Take 100 mg by mouth two times a day. ??? Magnesium 30 mg tablet Take 500 mg by mouth once daily. ??? losartan-hydrochlorothiazide (HYZAAR) 100-25 mg per tablet Take 1 tablet by mouth once daily. ??? amLODIPine (NORVASC) 10 mg tablet Take 10 mg by mouth once daily. I have interviewed and examined the patient. I have reviewed the medical record and/or the pre-anesthesia evaluation, pertinent labs, and test results. This contains updated information obtained within 48 hours of Surgery/Procedure. SIGNATURE: Sidney Larsen MD PATIENT NAME: Juan David Duque DATE: November 14, 2024 TIME: 7:03 AM CSN: [id number] documented in this encounter Plan of Treatment Upcoming Encounters Date Type Department Care Team (Late st Contact Info) Description 11/29/2024 2:20 PM EDT [facility] Endocrine Surgery [address] [place] [address] Geneva Samayoa MD [address] [place] [address] post op 02/28/2025 2:20 PM EST Office Visit Endocrinology [address] [place], [place] [id number] Gaudencio Lewis MD [address] [place] [address] [address] [place], [place] [id number] Return in about 6 months (around 02/15/2025). documented as of this encounter Procedures Procedure Name Priority Date/Time Associated Diagnosis Comments INTUBATION Routine 11/14/2024 7:32 AM EDT documented in this encounter Results * Airway (11/14/2024 7:32 AM EDT) Narrative Nanda Hawkins APRN.C D STRIPPER - 11/14/2024 7:32 AM EDT Nanda Hawkins APRN.C D STRIPPER 11/14/2024 7:46 AM Airway General Information Procedure Start Time/Medication Administration: 11/14/2024 7:32 AM Procedure End Time: 11/14/2024 7:32 AM Patient location during procedure: OR Staffing C D STRIPPER: Nanda Hawkins APRN.C D STRIPPER Performed by: C D STRIPPER Indications and Patient Condition Indications for airway management: anesthesia Preoxygenated: yes anesthesia circuit Method: sleep Difficult Mask: No Final Airway Details Final airway type: endotracheal airway Final Endotracheal Airway: ETT Cuffed: yes Successful intubation technique: video laryngoscopy Devices used: [employer] Endotracheal tube insertion site: oral Blade size: #3 ETT size (mm): 7.5 Measured from: lips Measurement (cm): 23 Placement verified by: capnometry Cormack-Lehane Classification: grade I - full view of glottis Number of attempts at approach: 1 Airway not difficult us Sidney Larsen III, MD ANESTHESIA ORDERABLES Elsie l Result documented in this encounter Visit Diagnoses Not on filedocumented in this encounter Administered Medications Inactive Administered Medications - up to 3 most recent administrations Medication Order MAR Action Action Date Dose Rate Site dexAMETHasone sodium phosphate injection (DECADRON) INTRAVENOUS, NEEDED, Starting on Thu11/14/24 at 0736, Until Thu11/14/24 at 0822, Anesthesia Intraprocedure Given 11/14/2024 7:36 AM EDT 4 mg fentaNYL 50 mcg/mL injection (SUBLIMAZE) INTRAVENOUS, NEEDED, Starting on Thu11/14/24 at 0727, Until Thu11/14/24 at 0822, Anesthesia Intraprocedure Given 11/14/2024 7:27 AM EDT 100 mcg glycopyrrolate injection (ROBINUL) INTRAVENOUS, NEEDED, Starting on Thu11/14/24 at 0727, Until Thu11/14/24 at 0822, Anesthesia Intraprocedure Given 11/14/2024 8:10 AM EDT 0.2 mg Given 11/14/2024 7:27 AM EDT 0.2 mg lidocaine HCl (PF) 20 mg/mL (2 %) injection INTRAVENOUS, NEEDED, Starting on Thu11/14/24 at 0727, Until Thu11/14/24 at 0822, Anesthesia Intraprocedure Given 11/14/2024 7:27 AM EDT 60 mg NaCl 0.9% iv infusion INTRAVENOUS, X (ONE-STEP ONLY) CONTINUOUS PRN, Starting on Thu11/14/24 at 0723, Until Thu11/14/24 at 0822, Anesthesia Intraprocedure New Bag/Syringe/Bottl e 11/14/2024 7:23 AM EDT ondansetron (PF) injection (ZOFRAN) INTRAVENOUS, NEEDED, Starting on Thu11/14/24 at 0736, Until Thu11/14/24 at 0822, Anesthesia Intraprocedure Given 11/14/2024 7:36 AM EDT 4 mg propofol infusion (DIPRIVAN) INTRAVENOUS, X (ONE-STEP ONLY) CONTINUOUS PRN, Starting on Thu11/14/24 at 0727, Until Thu11/14/24 at 0822, Anesthesia Intraprocedure New Bag/Syringe/Bottl e 11/14/2024 7:27 AM EDT 100 mcg/kg/min 72.12 mL/hr propofol injection (DIPRIVAN) INTRAVENOUS, NEEDED, Starting on Thu11/14/24 at 0727, Until Thu11/14/24 at 0822, Anesthesia Intraprocedure Given 11/14/2024 7:27 AM EDT 150 mg remifentanil 1 mg in NaCl 0.9% 25 mL INTRAVENOUS, X (ONE-STEP ONLY) CONTINUOUS PRN, Starting on Thu11/14/24 at 0732, Until Thu11/14/24 at 0822, Anesthesia Intraprocedure New Bag/Syringe/Bottl e 11/14/2024 7:32 AM EDT 0.1 mcg/kg/min 18.03 mL/hr rocuronium injection INTRAVENOUS, NEEDED, Starting on Thu11/14/24 at 0727, Until Thu11/14/24 at 0822, Anesthesia Intraprocedure Given 11/14/2024 7:27 AM EDT 50 mg sugammadex injection (BRIDION) INTRAVENOUS, NEEDED, Starting on Thu11/14/24 at 0812, Until Thu11/14/24 at 0822, Anesthesia Intraprocedure Given 11/14/2024 8:12 AM EDT 200 mg documented in this encounter Care Teams Forensic Manager Relationship Specialty Start Date End Date Alvin Contreras DO [address] [place] [address] PCP - General Internal Medicine 06/19/17 documented as of this encounter
--- OUTSIDE RECORDS SUMMARY | 2024-11-14 07:30 | XMS_ITS | Encounter Summary ---
Author Organization [facility] Address [address] [place] [address] Care Team Providers Care Inspector Ball Points Name Role Phone Alvin Contreras DO Primary Care Provider [phone] Source Comments In the event this information is protected by the Federal Confidentiality of Alcohol and Drug AbusePatient Records regulations: The Federal rules restrict any use of the information to criminally investigate or prosecute any alcohol or drug abuse patient.[facility] Encounter Details Date Type Department Care Team (Late st Contact Info) Description 11/14/2024 7:30 AM EDT - 11/14/2024 9:00 AM EDT Surgery [facility] Surgery [address] [place] [address] Geneva Samayoa MD [address] [place] [address] PARATHYROIDECTOMY Surgery Details Date/Time Status Location OR Service Patient Class Case Cl ass Case Type Trauma Case? 11/14/2024 7:30 AM Posted MM OR OR 05 Endocrine Ambulatory Surgery Elective Panel 1 Procedure LRB Anes Op Region Wound Class Comments PARATHYROIDECTOMY Bilateral General Thyroid Clean S&I INTRAOPERATIVE ULTRASOUN D GUIDANCE Bilateral General Thyroid Clean Surgeon Surgeon Role Service Panel Geneva Samayoa MD Primary Endocrine 1 Tiffany Sanchez MD Resident - Assisting Endocrine 1 documented in this encounter Social History Tobacco [...] is lower risk 4 01/13/2023 Data from: https://www.neighborhoodatlas.medicine.[facility].edu/. Last address used for calculation [address] [address] 01/13/2023 Sex and Gender Information Value Date Recorded Sex Assigned at Male 11/23/2019 10:00 AM EDT Legal Sex Male 8:05 AM EST Gender Identity Not on file Sexual Orientation Straight 11/23/2019 10 :00 AM EDT documented as of this encounter Last Filed Vital Signs Vital Sign Reading Time Taken Comments Blood Pressure 149/80 11/14/2024 9:00 AM EDT Pulse 62 11/14/2024 9:00 AM EDT Temperature 36.1 C (97 F) 11/14/2024 8:24 AM EDT Respiratory Rate 15 11/14/2024 9:00 AM EDT Oxygen Saturation 98% 11/14/2024 9:00 AM EDT Inhaled Oxygen Concentration - - [...] Entry Date Author No 08/31/2017 4:00 PM Jeevan Landon RN documented in this encounter Discharge Instructions [...] These instructions explain what you or your urgent care physician assistant need to do to continue your care at home or at another healthcare facility. Please go over these instructions with your nurse and urgent care physician assistant. If you are not sure about [...] be aware that certainmedications including Percocet and [place] contain Tylenol. Do not take more than [...] you but may also be picked up khix-ssd-ljxmczi. The recommended dosing is Calcium-Vitamin D3 500mg-200IU [...] Commonly known as: MOBIC Preventing Constipation: Both itkl-vgf-xvhvhjb and prescription medications are available to treat constipation. Start with 1 of the following ewiw-ihw-txlrvjl medications first and then add others as [...] referral to medical weight loss or a long distance operator, let us know at your follow up [...] end of this document). Please call the telephone lineman at [phone] if no postoperative appointment has been made [...] call your surgical team Geneva Samayoa MD [phone] during office hours with any concerns orquestions. After hours, please call the hoop punch and coiler operator at [phone] and ask to speak with the fellow [...] General Surgery Resident-PGY4 Endocrine Surgery Department Pager: [phone] * Tiffany Sanchez MD - 11/14/2024 11:28 [...] in the surgical floor Tiffany Sanchez MD [phone] Fellow / Clinical Associate, Endocrine Surgery documented in this encounter OR Notes * Brief Op Note - Tiffany Sanchez MD - 11/14/2024 8:19 AM EDT Brief Operative Note Patient Name: Bang Sharma LOG ID: [id number] Surgery/Procedure Date: 11/14/2024 Surgeon(s)/Proceduralist(s) and 7Th Grade Teacher(s): Surgeons and Role: * Geneva Samayoa MD [...] Pre PTH Blood Blood INTRAOPERATIVE PTH Geneva Samayoa MD 11/14/2024 7:49 AM 2 : Post PTH Blood Blood INTRAOPERATIVE PTH Geneva Samayoa MD 11/14/2024 8:10 AM A : right upper [id number] Tissue Parathyroid Gland, Right SURGICAL PATHOLOGY Geneva Samayoa MD 11/14/2024 7:55 AM B : Left upper 12x9x3 Tissue Parathyroid Gland, Left SURGICAL PATHOLOGY Geneva Samayoa MD 11/14/2024 8:04 AM C : right upper [id number] Tissue Parathyroid Gland, Right SURGICAL PATHOLOGY Geneva [...] Samayoa MD - 11/14/2024 12:00 AM EDT [facility] - Operative Report BANG SHARMA : 1950 AGE: 74. SEX: M PATIENT TYPE: A HOSP SVC: ENDOCRINE SCHNEIDER LOCATION: [facility] ATTENDING PHYSICIAN: Geneva Samayoa MD CSN NUMBER: [id number] DATE OF SURGERY/PROCEDURE: 11/14/2024 INCISION/PROCEDURE START TIME: 7:40 a.m. INCISION CLOSE/PROCEDURE END TIME: 8:16 a.m. PREOPERATIVE DIAGNOSIS: Primary hyperparathyroidism. POSTOPERATIVE DIAGNOSIS: Primary hyperparathyroidism. SURGEON: Geneva Samayoa MD SAW SHARPENER: Tiffany Sanchez MD SURGERY/PROCEDURE: Parathyroid exploration with [...] Dr. Sanchez was asked to serve as project assistant. During the course of the dissection, the project assistant assisted with mobilization, vascular isolation, and division. ESTIMATED BLOOD LOSS: Minimal. DRAINS: None. SPECIMENS: Sent to Pathology: 1. Right upper parathyroid gland. 2. Left upper parathyroid gland. COUNTS: Sponge and needle counts correct. COMPLICATIONS: There were no intraoperative complications. Geneva Samayoa MD JS:[id number] /[id number] documented in this encounter Plan of Treatment Upcoming Encounters Date Type Department Care Team (Late st Contact Info) Description 11/29/2024 2:20 PM EDT [facility] Endocrine Surgery [address] [place] [address] Geneva Samayoa MD [address] [place] [address] post op 02/28/2025 2:20 PM EST Office Visit Endocrinology [address] [place] [address] Gaudencio Lewis MD [address] [place] [address] [place] [address] Return in about 6 months (around 02/15/2025). [...] - 65 pg/mL 11/15/2024 5:41 AM EDT [facility] Blood BLOOD SPECIMEN / Unknown Venipuncture / Unknown 11/15/2024 4:01 AM EDT 11/15/2024 4:39 AM EDT us Tiffany Sanchez MD LABORATORY Final Result [facility] [address] * CALCIUM, TOTAL (11/15/2024 4:01 AM EDT) Calcium, Total 9.2 8.5 - 10.2 mg/dL 11/15/2024 5:27 AM EDT [facility] Blood BLOOD SPECIMEN / Unknown Venipuncture / Unknown 11/15/2024 4:01 AM EDT 11/15/2024 4:38 AM EDT us Tiffany Sanchez MD LABORATORY Final Result [facility] [address] * ECG COMPLETE (11/14/2024 11:35 AM EDT) Ventricular Rate 64 BPM [facility] Atrial Rate 64 BPM [facility] P-R Interval 164 ms [facility] QRS Duration 192 ms [facility] QT Interval 488 ms [facility] QTC Calculation (Bazett) 503 ms [facility] Calculated P [place] 73 degrees [facility] Calculated R [place] -76 degrees [facility] Calculated T [place] 19 degrees [facility] 11/14/2024 11:3 5 AM EDT Impressions [facility] - 11/14/2024 12:20 PM EDT Normal sinus rhythm Right bundle branch block Left anterior fascicular block Bifascicular block Septal infarct , age undetermined Abnormal ECG No previous ECGs available Confirmed by KEON MAGAÑA MD ([id number]) on 11/14/2024 12:20:23 PM Narrative [facility] - 11/14/2024 12:20 PM EDT NAME : BANG SHARMA PID : [id number] : 1950 Gender : Male Race : ORD : [id number] Procedure Date : Nov 14 2024 11:35:23 Edit Date : Nov 14 2024 12:20:28 Diagnosis: Normal sinus rhythm Right bundle branch block Left anterior fascicular block Bifascicular block Septal infarct , age undetermined Abnormal ECG No previous ECGs available Confirmed by KEON MAGAÑA MD ([id number]) on 11/14/2024 12:20:23 PM Test Reason : Post-OP Location : 1 : CARD 0211 Overread By : KEON MAGAÑA MD Edited By : KEON MAGAÑA MD Referred By : , Acquired by : DUONG KUMAR us Tiffany Sanchez MD EKG Final Result Performing Organization Address [facility]/ZIP Co de Phone Number [facility] [address] [place] [address] * (ABNORMAL) INTRAOPERATIVE PTH (11/14/2024 8:10 AM EDT) Intraoperative PTH 73(H) 15 - 65 pg/mL 11/14/2024 9:11 AM EDT [facility] Blood BLOOD SPECIMEN / Unknown 11/14/2024 8:10 AM EDT 11/14/2024 8:50 AM EDT Comment:Pre-op diagnosis: Hyperparathyroidism (HCC) [E21.3] us Geneva Samayoa MD LABORATORY Final Res ult Performing Organization Address [facility] Co de Phone Number [facility] [address] [place] [address], [place] * SURGICAL PATHOLOGY (11/14/2024 7:55 AM EDT) Case Report Surgical Pathology Report Case: [id number] Authorizing Provider: Geneva Samayoa MD Collected: 11/14/2024 07:55 AM Ordering Location: [facility] Surgery Received: 11/14/2024 08:04 AM Pathologist: Deysi Singh MD Intraop: Ella Johnson MD Specimens: A) - Parathyroid Gland, Right, right upper [id number] B) - Parathyroid Gland, Left, Left upper 12x9x3 C) - Parathyroid Gland, Right, right upper [id number] 11/16/2024 11:04 AM EDT [facility] FINAL DIAGNOSIS A, C. Right upper parathyroid, excision: - Hypercellular parathyroid. B. Left upper parathyroid, excision: - Hypercellular parathyroid. SHANA November 16, 2024 11/16/2024 11:04 AM EDT [facility] at 1104 EDT Gross Description A. Parathyroid Gland, Right FSA1: Received fresh for frozen section is one piece of brown soft tissue weighing 0.590 grams and measuring 2.2 x 0.9 x 0.6 cm. A enrollment representative section is submitted for frozen section in FSA1. Gross examination performed at [facility], [address], [place] [id number] CLIA# [id number] B. Parathyroid Gland, Left FSB1: Received fresh for frozen section is one piece of brown soft tissue weighing 0.245 grams and measuring 0.9 x 0.9 x 0.3 cm. The tissue is entirely submitted for frozen section in FSB1. Gross examination performed at [facility], [address], [place] [address] CLIA# [id number] C. Parathyroid Gland, Right Labeled: Right upper 31 x 18 x 10 Received: In formalin Size: 2.8 x 1.5 x 0.9 cm Weight: 1640 mg Cassette code: Representatively in C1 (serially section) Gross examination performed at [facility], [address] [place] [address] MSL/MADIHA 11/14/24 12:25 PM 11/16/2024 11:04 AM EDT [facility] Intraoperative Diagnosis A. Parathyroid Gland, Right FSA1: Hypercellular parathyroid tissue (Ella Johnson MD) Intraoperative diagnosis performed at [facility], [facility] [place] [place] [id number] CLIA# [id number] B. Parathyroid Gland, Left FSB1: Hypercellular parathyroid tissue (Ella Johnson MD) Intraoperative diagnosis performed at [facility], [facility] [address] [place] [id number] CLIA# [id number] [facility] Clinical History Pre-op diagnosis: Hyperparathyroidis m (HCC) [E21.3] 11/16/2024 11:04 AM [facility] Performing Lab Diagnostic interpretation performed at: [facility], [address] [place] [address], [place] [id number] CLIA# [id number] Account Supervisor: Herson Cuenca MD 11/16/2024 11:04 AM EDT [facility] Disclaimer Laboratory Developed Test (LDT) Disclaimer: Performance characteristics of immunohistochemica l, immunofluorescent, and chromogenic in-situ hybridization tests have been determined by the performing laboratory within [facility]'s Lan Guzman Pathology and Laboratory Medicine Department ([facility], [facility], [facility], [facility], [facility], [facility], or [facility]) in a manner consistent with CLIA requirements. One or more of these tests may not have been cleared or approved by the FDA. [facility] is regulated under CLIA as qualified to perform high-complexity testing. These tests are used for clinical purposes. These should not be regarded as investigational or for research. Positive and negative controls stain appropriately. 11/16/2024 11:04 AM EDT [facility] Tissue PARATHYROID STRUCTURE / Unknown 11/14/2024 7:55 AM EDT 11/14/2024 8:04 AM EDT Comment:Pre-op diagnosis: Hyperparathyroidism (HCC) [E21.3] Tissue specimen (specimen) PARATHYROID STRUCTURE / Unknown 11/14/2024 8:04 AM EDT 11/14/2024 8:11 AM EDT Comment:Pre-op diagnosis: Hyperparathyroidism (HCC) [E21.3] Tissue specimen (specimen) PARATHYROID STRUCTURE / Unknown 11/14/2024 8:02 AM EDT 11/14/2024 8:11 AM EDT Comment:Pre-op diagnosis: Hyperparathyroidism (HCC) [E21.3] Geneva Samayoa MD SURGICAL PATHOLOGY Final Result [facility] [address] [place] [address], [facility] [address] [place] [address], * (ABNORMAL) INTRAOPERATIVE PTH (11/14/2024 7:49 AM EDT) Intraoperative PTH 405(H) 15 - 65 pg/mL 11/14/2024 8:42 AM EDT [facility] Blood BLOOD SPECIMEN / Unknown 11/14/2024 7:49 AM EDT 11/14/2024 8:04 AM EDT Comment:Pre-op diagnosis: Hyperparathyroidism (HCC) [E21.3] us Geneva Samayoa MD LABORATORY Final Res ult [facility] [address] [place] [address], * US THYROID/PARATHYROID (POC) ENDO USE ONLY (11/14/2024 6:25 AM EDT) Anatomical Region Laterality Modality Other 11/14/2024 6:25 AM EDT Tiffany Sanchez MD IMAGES Final Result documented in this encounter Visit Diagnoses Diagnosis Hyperparathyroidism (HCC) Hyperparathyroidism, unspecified Hyperparathyroidism (HCC) Hyperparathyroidism, unspecified documented in this [...] Given 11/14/2024 9:01 AM EDT 1 lozenge bupivacaine 0.5 % injection (MARCAINE JT) X (OR/PROCEDURE) PRN, Starting on Thu11/14/24 at 0815, Until Thu11/14/24 at 0828, Intraprocedure Given 11/14/2024 8:15 AM EDT 10 mL prvbkfk-wmpzklhyl-uaglvna D3 500 mg-5 mcg (200 unit) 1 [...] 2043 (Given - Provider: Sandra Crain RN) hhnkxue-xhvjrewnk-bjzdluh D3 500 mg-5 mcg (200 unit) 1 [...] Therapeutics Committee 0808 (Given - Provider: Jamila Martinez, TIRSO) losartan 100 mg tab(s) (COZAAR)(Linked Group 1) 100 mg, ORAL, DAILY, First dose on Thu11/15/24 at 0900, Until Discontinued, losartan-hydroCHLOROthiazide tab(s) (HYZAAR) substituted to losartan tab(s) (COZAAR) and hydroCHLOROthiazide tab(s) (HYDRODIURIL, ESIDRIX) per Pharmacy and Therapeutics Committee 0808 (Given - Provider: Jamila Martinez, RN) Continuous Medication Order 11/13/2024 11/14/2024 11/15/2024 [...] 0703 (New Bag/Syringe/Bottle - Provider: Latricia Deshpande RN)08 (Infusion Complete - Provider: Remedios Prakash RN [...] Committee documented in this encounter Care Teams Inspector Ball Points Relationship Specialty Start Date End Date Alvin Contreras DO [address] [place] [id number] PCP - General Internal Medicine 06/19/17 documented as of this encounter
--- OUTSIDE RECORDS SUMMARY | 2024-11-15 06:13 | XMS_ITS ---
Author Organization [facility] in [place] Address [address] [place] [address] Care Team Providers Care Aquaculture Farmer Name Role Phone Ben Alvin NEWBERRY Primary Care Provider Davin Montes [phone] REASON FOR VISIT Letter/Appointment Encounters Encounter Location Date Provider Diagnosis Pulmonary Medicine [place] [address] [place] [address] 11/15/2024 Davin Reyes Plan Of Treatment No Information Progress Notes * Juan David SHARMA EDOB: 0 (74 yo M)Acc No.[id number]:11/15/2024 Patient: Jeevan COLINJuan David :1950 A ge:74 Y S ex:Male Address:[address] [place] [address] [address], [place] [address] * true * Date: Generated for Ericka maradiaga/William/eTransmitting on: 0 11/22/2024 01:20 PM EDT
--- OUTSIDE RECORDS SUMMARY | 2024-11-22 06:30 | XMS_ITS ---
Author Organization [facility] in [place] Address [address] [place] [address] Care Team Providers Care Aluminum Molding Machine Operator Name Role Phone Alvin Contreras DO Primary Care Provider Davin Montes Unavailable [phone] REASON FOR VISIT 1 YEAR REMY Encounters Encounter Location Date Provider Diagnosis Pulmonary Medicine [place] [address] [place] [address] 11/22/2024 Davin Reyes Plan Of Treatment No Information Progress Notes * Juan David SHARMA EDOB: 0 (74 yo M)Acc No.[id number]:11/22/2024 UNLOCKED PROGRESS NOTE Follow Up Patient: Juan David RAMIREZ Provider: Maura Reyes DO :1950 A ge:74 Y S ex:Male Date:11/22/2024 Phone: Address:[address] [place] [address] [address] Pcp:Alvin Contreras DO Subjective: * Chief Complaints: * 1 . 1 YEAR REMY. * Medical History: Objective: * Vitals: Assessment: Plan: * Treatment: * * Electronic signature of Maryjane Reyes DO on 11/22/2024 at 01:20 PM EDT Sign off status: Pending Visit Status: O FF CANC (OFFICE CANCEL) * Provider: Maura Reyes DO Date: 11/22/2024 Generated for Ericka maradiaga/William/eTransmitting on: 11/22/2024 01:20 PM EDT
--- OUTSIDE RECORDS SUMMARY | 2024-11-22 13:20 | XMS_ITS | Encounter Summary ---
Author Organization [facility] Address [address] [place] [address] Care Team Providers Care Webbing Supervisor Name Role Phone Alvin Contreras DO Primary Care Provider [phone] Source Comments In the event this information is protected by the Federal Confidentiality of Alcohol and Drug AbusePatient Records regulations: The Federal rules restrict any use of the information to criminally investigate or prosecute any alcohol or drug abuse patient.[facility] Encounter Details Date Type Department Care Team (Late st Contact Info) Description 11/03/2024 [place] [address] Provider, [facility] Actionable Imaging Result Notification Patient Outreach Social History Tobacco Use Types Packs/Day Years [...] is lower risk 4 01/13/2023 Data from: https://www.neighborhoodatlas.medicine.[facility].edu/. Last address used for calculation [address] [place] [address] 01/13/2023 Sex and Gender Information Value Date Recorded Sex Assigned at Male 11/23/2019 10:00 AM EDT Legal Sex Male 8:05 AM EST Gender Identity Not on file Sexual Orientation Straight 11/23/2019 10 :00 AM EDT documented as of this encounter Functional Status * Are you [...] Jeevan Strong RN documented in this encounter Plan of Treatment Upcoming Encounters Date Type Department Care Team (Late st Contact Info) Description 11/29/2024 2:[address] [facility] Endocrine Surgery [address] [place] [address] Geneva Samayoa MD [address] [place] [address] post op 02/28/2025 2:20 PM EST Office Visit Endocrinology [address] [facility] [place] [address] Gaudencio Lewis MD [address] [place] [address] [place] [address] Return in about 6 months (around 02/15/2025). documented as of this encounter Visit Diagnoses Not on filedocumented in this encounter Care Teams Webbing Supervisor Relationship Specialty Start Date End Date Alvin Contreras DO [address] [place] [id number] PCP - General Internal Medicine 06/19/17 documented as of this encounter
--- OUTSIDE RECORDS SUMMARY | 2024-11-22 13:20 | XMS_ITS | Encounter Summary ---
Author Organization [facility] Address [address] [place] [id number] Care Team Providers Care Internal Medicine Physician Assistant Name Role Phone Alvin Contreras Primary Care Provider [phone] Source Comments In the event this information is protected by the Federal Confidentiality of Alcohol and Drug AbusePatient Records regulations: The Federal rules restrict any use of the information to criminally investigate or prosecute any alcohol or drug abuse patient.[facility] Encounter Details Date Type Department Care Team (Late st Contact Info) Description 08/23/2024 Patient Msg Endocrinology [address] [id number] Provider, Cckristina Appontment Rescheduled Social History Tobacco Use Types Packs/Day Years Used Date Smoking Tobacco: Never Smokeless Tobacco: Never PHQ-2 Answer Date Recorded PHQ-2 score 0 06/30/2019 Area Deprivation Index Answer Date Mumtaz rded National Score (1-100), lower number is lower ri sk 60 01/13/2023 State Score (1-10), lower number is lower risk 4 01/13/2023 Data from: https://www.neighborhoodatlas.medicine.[facility].edu/. Last address used for calculation [address] [place] [address] 01/13/2023 Sex and Gender Information Value Date [...] Entry Date Author No 08/31/2017 4:00 PM MARYANNET Jeevan Strong RN documented in this encounter Plan of Treatment Upcoming Encounters Date Type Department Care Team (Late st Contact Info) Description 11/29/2024 2:20 PM EDT [facility] Endocrine Surgery [address] [place] [address] Geneva Samayoa MD [address] [place] [address] post op 02/28/2025 2:20 PM EST Office Visit Endocrinology [address] [place] [address] Gaudencio Lewis MD [address] [place] [address] [place] [address] Return in about 6 months (around 02/15/2025). documented as of this encounter Visit Diagnoses Not on filedocumented in this encounter Care Teams Internal Medicine Physician Assistant Relationship Specialty Start Date End Date Alvin Contreras DO [address] [place] [address] PCP - General Internal Medicine 06/19/17 documented as of this encounter
--- OUTSIDE RECORDS SUMMARY | 2024-11-22 13:20 | XMS_ITS | Encounter Summary ---
Author Organization [facility] Address [address] [place] [address] Care Team Providers Care Land Development Project Manager Name Role Phone Alvin Contreras DO Primary Care Provider [phone] Bhavik Justin MD Unavailable [phone] Nanda Mustafa DO Unavailable [phone] Alvin Contreras DO Primary Care Provider [phone] Encounter Details Date Type Department Care Team (Late st Contact Info) Description 02/24/2024 Orders Only PHYLLIS BENEDICTO [address] [facility] [address] [place] [id number] Geoff Joshua ARRT Social History Tobacco Use Types Packs/Day Years Used Date Smoking Tobacco: Former Cigarettes Smokeless Tobacco: Never Sex and Gender Information Value Date Recorded Sex Assigned at Not on file Legal Sex Male 7:33 PM EDT Gender Identity Not on file Sexual Orientation Not on file documented as of this encounter Plan of Treatment Not on file documented as of this encounter Visit Diagnoses Not on filedocumented in this encounter Care Teams Land Development Project Manager Relationship Specialty Start Date End Date Alvin Contreras DO PCP - General Internal Medicine 03/30/23 09/18/24 Alvin Contreras DO [address] [facility] [place] [address] PCP - General Internal Medicine 09/19/24 Bhavik Justin MD [address] [address] Referring Physician Neuropsychology 02/22/24 Nanda Mustafa DO [address] [place] [address] Referring Physician Neurology 04/05/24 documented as of this encounter
--- OUTSIDE RECORDS SUMMARY | 2024-11-22 13:20 | XMS_ITS | Encounter Summary ---
Author Organization [facility] Address [address] [place] [address] Care Team Providers Care Crib Attendant Name Role Phone Alvin Contreras Primary Care Provider [phone] Source Comments In the event this information is protected by the Federal Confidentiality of Alcohol and Drug AbusePatient Records regulations: The Federal rules restrict any use of the information to criminally investigate or prosecute any alcohol or drug abuse patient.[facility] Encounter Details Date Type Department Care Team (Late st Contact Info) Description 10/07/2024 Patient Msg Endocrine Surgery [address] [phone] Provider, [facility] Pre-op Appointments Social History Tobacco Use Types Packs/Day Years Used Date Smoking Tobacco: Never Smokeless Tobacco: Never PHQ-2 Answer Date Recorded PHQ-2 score 0 06/30/2019 Area Deprivation Index Answer Date Mumtaz rded National Score (1-100), lower number is lower ri sk 60 01/13/2023 State Score (1-10), lower number is lower risk 4 01/13/2023 Data from: https://www.neighborhoodatlas.medicine.[facility].edu/. Last address used for calculation [address] [place] [address] 01/13/2023 Sex and Gender Information Value Date [...] Assessment Author No 08/31/2017 4:00 PM EDT Jeevna Strong RN documented as of this encounter Mental Status * Because of a physical, mental, or emotional condition, do you have serious difficulty concentrating, remembering, or making decisions? Answer Entry Date Author No 08/31/2017 4:00 PM MARYANNET Jeevan Strong RN documented in this encounter Plan of Treatment Upcoming Encounters Date Type Department Care Team (Late st Contact Info) Description 11/29/2024 2:20 PM EDT [facility] Endocrine Surgery [address] [place], [place] [phone] Geneva Samayoa MD [address] [place] [address] post op 02/28/2025 2:20 PM EST Office Visit Endocrinology [address] [facility] [place] [address] Gaudencio Lewis MD [address] [place] [address] [place] [address] Return in about 6 months (around 02/15/2025). documented as of this encounter Visit Diagnoses Not on filedocumented in this encounter Care Teams Crib Attendant Relationship Specialty Start Date End Date Alvin Contreras DO [address] [place] [address] PCP - General Internal Medicine 06/19/17 documented as of this encounter
--- OUTSIDE RECORDS SUMMARY | 2024-11-22 13:20 | XMS_ITS | Encounter Summary ---
Author Organization [facility] Address [facility] [place] [address] Care Team Providers Care Health Insurance Specialist Name Role Phone Alvin Contreras DO Primary Care Provider [phone] Source Comments In the event this information is protected by the Federal Confidentiality of Alcohol and Drug AbusePatient Records regulations: The Federal rules restrict any use of the information to criminally investigate or prosecute any alcohol or drug abuse patient.[facility] Encounter Details Date Type Department Care Team (Late st Contact Info) Description 11/21/2024 Get Medical Advice Endocrine Surgery [address] [place] [address] Geneva Samayoa MD [address] [place] [phone] CALCIUM TOTAL BLD, Parathyroid hormone (PTH intact), Vitamin D, 25-hydroxy Social History Tobacco Use Types Packs/Day Years [...] is lower risk 4 01/13/2023 Data from: https://www.neighborhoodatlas.medicine.[facility]/. Last address used for calculation [address] 01/13/2023 Sex and Gender [...] Contact Info) Description 11/29/2024 2:20 PM EDT [facility] Endocrine Surgery [address] [place] [address] Geneva Samayoa MD [address] [place] [address] post op 02/28/2025 2:20 PM EST Office Visit Endocrinology [address] [facility], [place] [phone] Gaudencio Lewis MD [address] [place] [address] [place] [address] Return in about 6 months (around 02/15/2025). documented as of this encounter Visit Diagnoses Not on filedocumented in this encounter Care Teams Health Insurance Specialist Relationship Specialty Start Date End Date Alvin Contreras DO [address] [place] [address] PCP - General Internal Medicine 06/19/17 documented as of this encounter
--- OUTSIDE RECORDS SUMMARY | 2024-11-22 13:20 | XMS_ITS | Encounter Summary ---
Author Organization [facility] Address [address] [place] [address] Care Team Providers Care Commercial Driver Name Role Phone Alvin Contreras DO Primary Care Provider [phone] Source Comments In the event this information is protected by the Federal Confidentiality of Alcohol and Drug AbusePatient Records regulations: The Federal rules restrict any use of the information to criminally investigate or prosecute any alcohol or drug abuse patient.[facility] Encounter Details Date Type Department Care Team (Latest Contact Info) Description 11/18/2024 Orders Only Endocrine Surgery [address] [place] [address] Geneva Samayoa MD [address] [place] [phone] Hyperparathyroidism ([facility]) (Primary Dx) Social History Tobacco Use Types Packs/Day Years [...] is lower risk 4 01/13/2023 Data from: https://www.neighborhoodatlas.[facility]/. Last address used for calculation [address] 01/13/2023 Sex and Gender [...] Contact Info) Description 11/29/2024 2:20 PM EDT [facility] Endocrine Surgery [address] [place] [address] Geneva Samayoa MD [address] [place] [address] post op 02/28/2025 2:20 PM EST Office Visit Endocrinology [address] [place] [address] Gaudencio Lewis MD [address] [place] [address] [place] [address] Return in about 6 months (around 02/15/2025). Scheduled Orders Name Type Priority Associated Diagnoses Orde r Schedule CALCIUM, TOTAL Lab Routine Hyperparathyroidism (HCC) Expected: 11/18/2024 (Approximate), Expires: 02/17/2025 PTH INTACT Lab Routine Hyperparathyroidism (HCC) Expected: 11/18/2024 (Approximate), Expires: 02/17/2025 CALCIUM, TOTAL Lab Routine Hyperparathyroidism (HCC) Expected: 05/17/2025, Expires: 06/16/2025 PTH INTACT Lab Routine Hyperparathyroidism (HCC) Expected: 05/17/2025, Expires: 06/16/2025 VITAMIN D 25 HYDROXY Lab Routine Hyperparathyroidism (HCC) Expected: 05/17/2025, Expires: 06/16/2025 documented as of this encounter Visit Diagnoses Diagnosis Hyperparathyroidism (HCC)- Primary Hyperparathyroidism, unspecified documented in this encounter Care Teams Commercial Driver Relationship Specialty Start Date End Date Alvin Contreras DO [address] [place] [address] PCP - General Internal Medicine 06/19/17 documented as of this encounter
--- OUTSIDE RECORDS SUMMARY | 2024-11-22 13:20 | XMS_ITS | Encounter Summary ---
Author Organization [facility] Address [facility] [place] [address] Care Team Providers Care Civil Defense Director Name Role Phone Alvin Contreras DO Primary Care Provider [phone] Source Comments In the event this information is protected by the Federal Confidentiality of Alcohol and Drug AbusePatient Records regulations: The Federal rules restrict any use of the information to criminally investigate or prosecute any alcohol or drug abuse patient.[facility] Reason for Visit * Reason Comments Post Op Encounter Details Date Type Department Care Team (Late st Contact Info) Description 11/18/2024 Telephone Endocrine Surgery [address] [place] [address] Geneva Samayoa MD [address] [place] [address] Post Op Social History Tobacco Use Types Packs/Day Years [...] is lower risk 4 01/13/2023 Data from: https://www.neighborhoodatlas.[facility]/. Last address used for calculation [address] 01/13/2023 Sex and Gender Information [...] Jeevan Strong RN documented in this encounter Miscellaneous Notes * Telephone Encounter - Uriah Ramos RN - 11/18/2024 2:34 PM EDT Called pt and left a voice mail to see how pt is doing after undergoing Parathyroid exploration with excision of the right upper and left upper parathyroid glands with Dr. Samayoa on 11/14/24. Reminded of post-op follow-up and instruction was given to have labs drawn prior to the appointment. Pt to call for questions. Ma Payuyo, RN documented in this encounter Plan of Treatment Upcoming Encounters Date Type Department Care Team (Late st Contact Info) Description 11/29/2024 2:20 PM EDT [facility] Endocrine Surgery [address] [place], [place] [phone] Geneva Samayoa MD [address] [place] [address] post op 02/28/2025 2:20 PM EST Office Visit Endocrinology [address] [place], [place] [address] Gaudencio Lewis MD [address] [place] [address] [address] [place], [place] [id number] Return in about 6 months (around 02/15/2025). documented as of this encounter Visit Diagnoses Not on filedocumented in this encounter Care Teams Civil Defense Director Relationship Specialty Start Date End Date Alvin Contreras DO [address] [place] [address] PCP - General Internal Medicine 06/19/17 documented as of this encounter
--- OUTSIDE RECORDS SUMMARY | 2024-11-22 13:20 | XMS_ITS | Clinical Summary ---
Author Organization [facility] Address [address] [place] [address] Care Team Providers Care Counterintelligence/Humint Specialist Name Role Phone Bhavik Justin MD Unavailable [phone] Nanda Mustafa DO Unavailable [phone] Alvin Contreras DO Primary Care Provider [phone] Allergies Active Allergy Reactions Criticality Noted Date Comments Meperidine 12/10/2017 Penicillins Hives,Rash,Other Medium 04/07/2014 Medications flecainide (Tambocor) 100 MG tablet Take 50 mg by mouth in the morning and 50 mg before bedtime. 10/08/2023 Active amLODIPine (Norvasc) 10 MG tablet Take 10 mg by mouth in the morning. 09/01/2023 Active losartan-hydroC HLOROthiazide (Hyzaar) 100-25 MG tablet Take 1 tablet by mouth Daily 09/01/2023 Active magnesium citrate solution Take by mouth Active POTASSIUM GLUCONATE PO Take by mouth Active Coenzyme Q10 100 MG tablet Take 100 mg by mouth Daily Active ascorbic acid (Vitamin C) 1000 MG tablet Take 1,000 mg by mouth Daily Active Family History Medical History Relation Name Comments Cancer Father Diabetes Mother Heart disease Mother Hypertension Mother Kidney disease Mother Relation Name Status Comments Father Mother Social History Tobacco Use Types Packs/Day Years Used Date Smoking Tobacco: Former Cigarettes Smokeless Tobacco: Never Tobacco Cessation:Counseling Given: Not Answered Alcohol Use Standard Drinks/Week Comments Never 0 (1 standard drink = 0.6 oz pur e alcohol) Sex and Gender Information Value Date Recorded Sex Assigned at Not on file Legal Sex Male 7:33 PM EDT Gender Identity Not on file Sexual Orientation Not on file Last Filed Vital Signs Vital Sign Reading Time Taken Comments Blood Pressure 118/76 07/04/2024 4:00 PM EDT Pulse 65 07/04/2024 4:00 PM EDT Temperature - - Respiratory Rate - - Oxygen Saturation 95% 07/04/2024 4:00 PM EDT Inhaled Oxygen Concentration - - Weight 121 kg (266 lb) 07/04/2024 4:00 PM EDT Height 189.2 cm (6' 2.5 ) 07/04/2024 4:00 PM EDT Body Mass Index 33.7 07/04/2024 4:00 PM EDT Plan of Treatment Health Maintenance Due Date Last Done Comments CT Colonography 1949 Colonoscopy 1950 FIT 1949 FOBT 1950 Sigmoidoscopy 1950 Pneumococcal Vaccine: 65+ Ye ars (2 of 2 - PCV) 01/19/2016 01/18/2015 Influenza Vaccine (#1) 2024 , 12/16/2022, 02/10/2022 Colorectal Cancer Screening 02/12/2025 FIT-DNA 02/12/2025 02/12/2022, 11/08/2018 [place] [address] [employer] [id number] Care Teams Counterintelligence/Humint Specialist Relationship Specialty Start Date End Date Alvin Contreras DO [address] [place] [address] PCP - General Internal Medicine 09/19/24 Bhavik Justin MD [address] [address] Referring Physician Neuropsychology 02/22/24 Nanda Mustafa DO [address] [place] [address] Referring Physician Neurology 04/05/24
--- OUTSIDE RECORDS SUMMARY | 2024-11-22 13:20 | XMS_ITS | Encounter Summary ---
Author Organization [facility] Address [address] [place], [place] [id number] Care Team Providers Care Work Checker Name Role Phone Alvin Contreras DO Primary Care Provider [phone] Source Comments In the event this information is protected by the Federal Confidentiality of Alcohol and Drug AbusePatient Records regulations: The Federal rules restrict any use of the information to criminally investigate or prosecute any alcohol or drug abuse patient.[facility] Reason for Referral * Consult, Test, Treat (Routine) - Authorized Specialty Diagnoses / Procedures Referred By Contac t Referred To Contact Diagnoses Hyperparathyroidism (HCC) Procedures REFER TO [facility] - PREOPERATIVE OPTIMIZATION OFFICE/OUTPATIENT [facility] 60 MINUTES Geneva Samayoa MD [address] [place] [address] Phone: tel: fax: Referral ID Status Reason Start Date Expiration Date Visits Requested Visits Authorized [id number] Authorized PCP Requested Referral 09/13/2024 09/13/2025 1 1 * Diagnostic Procedure Only (Routine) - Closed Specialty Diagnoses / Procedures Referred By Contac t Referred To Contact [facility] Diagnoses Hyperparathyroidism (HCC) Procedures NM PARATHYROID W SPECT/CT PARATHYROID IMAGING W/TOMOGRAPHIC SPECT & CT Geneva Samayoa MD [address] [place] [address] Phone: tel: fax: Molecular Imaging [address] [phone] Phone: tel: Referral ID Status Reason Start Date Expiration Date V isits Requested Visits Authorized [id number] Closed Auto-Generate d Referral 09/13/2024 10/13/2025 1 1 * Outpatient Procedure (Routine) - Closed Specialty Diagnoses / Procedures Referred By Contac t Referred To Contact [facility] Diagnoses Hyperparathyroidism (HCC) Procedures ECG COMPLETE ECG ROUTINE ECG W/LEAST 12 LDS W/I[place] [address] [place] [address] Phone: tel: fax: [facility] [address] [place] [address] Referral ID Status Reason Start Date Expiration Date V isits Requested Visits Authorized [id number] Closed Auto-Generate d Referral 09/13/2024 09/13/2025 1 1 Reason for Visit * Reason Comments 7/28 MM - Parathyroidectomy Needs: labs, EKG, NM scan of Parathyroid, in-person PACC and 2 wk phone post-op. Encounter Details Date Type Department Care Team (Latest Contact Info) Description 09/13/2024 Patient Update Endocrine Surgery [address] [id number] Geneva Samayoa MD [address] [place] [address] 7/28 MM - Parathyroidectomy (Needs: labs, EKG, NM scan of Parathyroid, in-person PACC and 2 wk phone post-op.) Social History Tobacco Use Types Packs/Day Years Used Date Smoking Tobacco: Never Smokeless Tobacco: Never PHQ-2 Answer Date Recorded PHQ-2 score 0 06/30/2019 Area Deprivation Index Answer Date Mumtaz rded National Score (1-100), lower number is lower ri sk 60 01/13/2023 State Score (1-10), lower number is lower risk 4 01/13/2023 Data from: https://www.neighborhoodatlas.medicine.[facility]/. Last address used for calculation [address] 01/13/2023 Sex and Gender [...] Contact Info) Description 11/29/2024 2:20 PM EDT [facility] Endocrine Surgery [address] [place] [address] Geneva Samayoa MD [address] [place] [address] post op 02/28/2025 2:20 PM EST Office Visit Endocrinology [address] [place], [place] [id number] Gaudencio Lewis MD [address] [place] [address] Return in about 6 months (around 02/15/2025). Pending Results Name Type Priority Associated Diagnoses Date /Time ECG COMPLETE ECG Routine Hyperparathyroidism (HCC) 11/01/2024 11:55 AM EDT Scheduled Orders Name Type Priority Associated Diagnoses Orde r Schedule REFER FOR ADMIT INTERVIEW Procedures Routine Hyperparathyroidism (HCC) Ordered: 09/13/2024 documented as of this encounter Procedures Procedure Name Priority Date/Time Associated Diagnosis Comments CREATININE 24 HR UR Routine 10/19/2024 1 :36 PM EDT Hyperparathyroidism (HCC) CALCIUM 24 HR URINE Routine 10/19/2024 1 :35 PM EDT Hyperparathyroidism (HCC) documented in this encounter Results * (ABNORMAL) NM PARATHYROID W SPECT/CT (11/01/2024 2:25 PM EDT) Radiology Result ACTIONABLE (Actionabl e) DIVISION OF RADIOLOGY Comment: This report contains an incidental or actionable finding. This finding may be a new finding separate from the reason your provider ordered the imaging test or it may be an already known finding that needs additional or continued follow-up. Because of this incidental or actionable finding, you may need another test (imaging or a different type of test). Please contact your provider for the next steps. 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 Enlarged left paratracheal lymph node is non-specific but could be reactive. Suggest follow-up CT chest in 3 months reassess. ACTIONABLE RESULT: FOLLOW-UP Acuity: Actionable Findings: Lymphatic System Routing Code: Lymph_1 Recommendation: CT Chest WO IVCON Time Frame: Additional evaluation as described in the impression COMMUNICATION: Results will be communicated with the ordering provider via [employer] staff message or phone message by [facility] within 2 business days of report finalization. --END OF FINDING-- Deck Molder: BARBARA Transcribe Date/Time: Nov 02 2024 7:32A Dictated by : SKIP RIVERA DO This examination was interpreted and the report reviewed and electronically signed by: SKIP RIVERA DO on Nov 02 2024 7:42AM EST Narrative 11/02/2024 7:44 AM EDT * * *Final Report* * * DATE OF EXAM: Nov 01 2024 2:25PM N 0089 - NM PARATHYROID W SPECT/CT / PROCEDURE REASON: Hyperparathyroidism (HCC) * * * * Physician Interpretation * * * * EXAMINATION: PARATHYROID SCAN WITH SPECT-CT CLINICAL HISTORY: Hyperparathyroidism. TECHNIQUE: 204 microcuries of I-123 sodium iodide administered PO. 34.0 millicuries of Tc-99m sestamibi administered IV. SPECT imaging of the neck through chest was performed using dual-energy windows. Free breathing, low dose CT of the same body region was acquired without IV contrast for attenuation correction and anatomic localization though is not intended to reproduce or replace diagnostic CT scan quality. Sestamibi uptake serves as a surrogate marker of mitochondrial density. * CT Dose-Length Product (DLP): 303 mGy*cm * CT Dose Reduction Employed: Yes CORRELATION: POC Thyroid/Parathyroid ultrasound 09/13/2024; CT 07/17/2017 RESULT: Parathyroids: * Focal area of post-subtraction sestamibi activity corresponding with a 2.2 x 1.1 cm (AP X TV) soft tissue nodule posterior to the RIGHT thyroid lobe inferiorly (CT image 71). * No other areas of abnormal post-subtraction sestamibi activity to suggest another site of abnormal parathyroid tissue. Thyroid: Homogeneous physiologic radiotracer uptake. Few subcentimeter low-attenuation nodules. Other Findings: Physiologic radiopharmaceutical biodistribution. Localization CT: No evidence of an acute abnormality. Biatrial cardiac enlargement. Coronary artery calcifications. Linear calcification along LEFT anterior chest wall. 1.2 cm short axis LEFT paratracheal lymph node (3:98), new from 2018. Localizer Images: No additional findings. Procedure Note Provider, [facility] - 11/02/2024 * * *Final Report* * * DATE OF EXAM: Nov 01 2024 2:25PM [facility] 0089 - NM PARATHYROID W SPECT/CT / PROCEDURE REASON: Hyperparathyroidism (HCC) * * * * Physician Interpretation * * * * EXAMINATION: PARATHYROID SCAN WITH SPECT-CT CLINICAL HISTORY: Hyperparathyroidism. TECHNIQUE: 204 microcuries of I-123 sodium iodide administered PO. 34.0 millicuries of Tc-99m sestamibi administered IV. SPECT imaging of the neck through chest was performed using dual-energy windows. Free breathing, low dose CT of the same body region was acquired without IV contrast for attenuation correction and anatomic localization though is not intended to reproduce or replace diagnostic CT scan quality. Sestamibi uptake serves as a surrogate marker of mitochondrial density. * CT Dose-Length Product (DLP): 303 mGy*cm * CT Dose Reduction Employed: Yes CORRELATION: POC Thyroid/Parathyroid ultrasound 09/13/2024; CT07/17/2017 RESULT: Parathyroids: * Focal area of post-subtraction sestamibi activity corresponding with a 2.2 x 1.1 cm (AP X TV) soft tissue nodule posterior to the RIGHT thyroid lobe inferiorly (CT image 71). * No other areas of abnormal post-subtraction sestamibi activity to suggest another site of abnormal parathyroid tissue. Thyroid: Homogeneous physiologic radiotracer uptake. Few subcentimeter low-attenuation nodules. Other Findings: Physiologic radiopharmaceutical biodistribution. Localization CT: No evidence of an acute abnormality. Biatrial cardiac enlargement. Coronary artery calcifications. Linear calcification along LEFT anterior chest wall. 1.2 cm short axis LEFT paratracheal lymph node (3:98), new from 2018. Localizer Images: No additional findings. 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 Enlarged left paratracheal lymph node is non-specific but could be reactive. Suggest follow-up CT chest in 3 months reassess. ACTIONABLE RESULT: FOLLOW-UP Acuity: Actionable Findings: Lymphatic System Routing Code: Lymph_1 Recommendation: CT Chest WO IVCON Time Frame: Additional evaluation as described in the impression COMMUNICATION: Results will be communicated with the ordering provider via [employer] staff message or phone message by [facility] within 2 business days of report finalization. --END OF FINDING-- Deck Molder: BARBARA Transcribe Date/Time: Nov 02 2024 7:32A Dictated by : SKIP RIVERA DO This examination was interpreted and the report reviewed and electronically signed by: SKIP RIVERA DO on Nov 02 2024 7:42AM EST us Geneva Samayoa MD NM-PAMA Final Res ult * COMPLETE BLOOD COUNT AND DIFFERENTIAL (11/01/2024 11:24 AM EDT) WBC 5.86 3.70 - 11.00 k/uL 11/01/2024 12:25 PM EDT [facility] RBC 4.58 4.20 - 6.00 m/uL 11/01/2024 12:25 PM EDT [facility] Hemoglobin 14.3 13.0 - 17.0 g/dL 11/01/2024 12:25 PM EDT [facility] Hematocrit 44.3 39.0 - 51.0 % 11/01/2024 12:25 PM EDT [facility] MCV 96.7 80.0 - 100.0 fL 11/01/2024 12:25 PM EDT [facility] MCH 31.2 26.0 - 34.0 pg 11/01/2024 12:25 PM EDT [facility] MCHC 32.3 30.5 - 36.0 g/dL 11/01/2024 12:25 PM EDT [facility] RDW-CV 13.6 11.5 - 15.0 % 11/01/2024 12:25 PM EDT [facility] Platelet Count 307 150 - 400 k/uL 11/01/2024 12:25 PM EDT [facility] MPV 9.1 9.0 - 12.7 fL 11/01/2024 12:25 PM EDT [facility] Neutrophils % 59.7 % 11/01/2024 12:25 PM EDT [facility] Abs Neut 3.50 1.45 - 7.50 k/uL 11/01/2024 12:25 PM EDT [facility] Lymphocytes % 25.3 % 11/01/2024 12:25 PM EDT [facility] Abs Lymph 1.48 1.00 - 4.00 k/uL 11/01/2024 12:25 PM EDT [facility] Monocytes % 11.9 % 11/01/2024 12:25 PM EDT [facility] Abs [place] 0.70 <0.87 k/uL 11/01/2024 12:25 PM EDT [facility] Eosinophils % 1.9 % 11/01/2024 12:25 PM EDT [facility] Abs Eosin 0.11 <0.46 k/uL 11/01/2024 12:25 PM EDT [facility] Basophils % 0.9 % 11/01/2024 12:25 PM EDT [facility] Abs Baso 0.05 <0.11 k/uL 11/01/2024 12:25 PM EDT [facility] Immature Granulocytes % 0.3 % 11/01/2024 12:25 PM EDT [facility] Abs Immature Gran <0.03 <0.10 k/uL 025 12:25 PM EDT [facility] NRBC 0.0 /100 WBC 11/01/2024 12:25 PM EDT [facility] Absolute nRBC <0.01 <0.01 k/uL 11/01/2024 12:25 PM EDT [facility] Diff Type Auto 11/01/2024 12:25 PM EDT [facility] Blood BLOOD SPECIMEN / Unknown Venipuncture / Unknown 11/01/2024 11:24 AM EDT 11/01/2024 11:24 AM EDT us Geneva Samayoa MD LABORATORY Final Res ult [facility] [address] [place] [address], [place] * (ABNORMAL) BASIC METABOLIC PANEL (11/01/2024 11:24 AM EDT) [facility] Glucose 108(H) 74 - 99 mg/dL 11/01/2024 2:16 PM T [facility] Comment: The [place] [employer] Association (ADA) provides guidance for cutoff values for fasting glucose and random glucose. The ADA defines fasting as no caloric intake for at least 8 hours. Fasting plasma glucose results between 100 to 125 mg/dL indicate increased risk for diabetes (prediabetes). Fasting plasma glucose results greater than or equal to 126 mg/dL meet the criteria for diagnosis of diabetes. In the absence of unequivocal hyperglycemia, results should be confirmed by repeat testing. In a patient with classic symptoms of hyperglycemia or hyperglycemic crisis, random plasma glucose results greater than or equal to 200 mg/dL meet the criteria for diagnosis of diabetes. Reference: Standards of Medical Care in Diabetes 2016, [place] [employer] Association. Diabetes Care. 2016.39(Suppl 1). BUN 18 9 - 24 mg/dL 11/01/2024 2:16 PM [facility] Creatinine 0.86 0.73 - 1.22 mg/dL 11/01/2024 2:16 PM [facility] Sodium 140 136 - 144 mmol/L 11/01/2024 2:16 PM [facility] Potassium 4.5 3.7 - 5.1 mmol/L 11/01/2024 2:16 PM [facility] Chloride 105 98 - 107 mmol/L 11/01/2024 2:16 PM [facility] CO2 26 22 - 30 mmol/L 11/01/2024 2:16 PM [facility] Anion Gap 9 8 - 15 mmol/L 11/01/2024 2:16 PM [facility] Calcium, Total 11.0(H) 8.5 - 10.2 mg/dL 11/01/2024 2:16 PM [facility] Estimated Glomerular Filtration Rate 90 >=60 mL/min/1. 73m 11/01/2024 2:16 PM [facility] Comment:Estimated Glomerular Filtration Rate (eGFR) is calculated using the 2020 CKD-EPI creatinine equation. This equation utilizes serum creatinine, sex, and age as parameters. The creatinine assay has traceable calibration to isotope dilution- mass spectrometry. Refer to KDIGO guidelines for clinical interpretation. In patients with unstable renal function, e.g. those with acute kidney injury, the eGFR may not accurately reflect actual GFR. Blood BLOOD SPECIMEN / Unknown Venipuncture / Unknown 11/01/2024 11:24 AM EDT 11/01/2024 11:24 AM EDT Geneva Samayoa MD LABORATORY Final Res ult Performing Organization Address [facility] Co de Phone Number [facility] [address] [phone], * (ABNORMAL) CREATININE, 24 HOUR URINE (10/19/2024 1:36 PM EDT) Creatinine 24 hr Ur 2.006(H) 1.000 - 2.000 g/24 hr 10/20/2024 5:25 PM EDT [facility] Period 24 hr 10/20/2024 5:25 PM EDT [facility] Volume 1,750 mL 10/20/2024 5:25 PM EDT [facility] Urine URINE SPECIMEN / Unknown Non Blood / Unknown 10/19/2024 1:36 PM EDT 10/19/2024 1:36 PM EDT Geneva Samayoa MD LABORATORY Final Res ult Performing Organization Address [facility] Co de Phone Number [facility] [address], [place] [facility] [address] [place] [address] * (ABNORMAL) CALCIUM, 24 HR URINE (10/19/2024 1:35 PM EDT) Calcium, 24 Hr Urine 357.0(H) 100.0 - 300.0 mg/24 hr 10/20/2024 7:10 PM EDT [facility] Period 24 hr 10/20/2024 7:10 PM EDT [facility] Volume 1,750 mL 10/20/2024 7:10 PM EDT [facility] Urine URINE SPECIMEN / Unknown Non Blood / Unknown 10/19/2024 1:35 PM EDT 10/19/2024 1:35 PM EDT us Geneva Samayoa MD LABORATORY Final Res ult [facility] [address] [facility] [address] [place] [address], [facility] [address] [place] [address] documented in this encounter Visit Diagnoses Diagnosis Hyperparathyroidism (HCC)- Primary Hyperparathyroidism, unspecified Hyperparathyroidism (HCC) Hyperparathyroidism, unspecified documented in this encounter Care Teams Work Checker Relationship Specialty Start Date End Date Alvin Contreras DO [address] [place] [address] PCP - General Internal Medicine 06/19/17 documented as of this encounter
--- OUTSIDE RECORDS SUMMARY | 2024-11-22 13:21 | XMS_ITS | Encounter Summary ---
Author Organization [facility] Address [address] [place] [address] Care Team Providers Care Belt Cleaner Name Role Phone Alvin Contreras DO Primary Care Provider [phone] Source Comments In the event this information is protected by the Federal Confidentiality of Alcohol and Drug AbusePatient Records regulations: The Federal rules restrict any use of the information to criminally investigate or prosecute any alcohol or drug abuse patient.[facility] Encounter Details Date Type Department Care Team (Late st Contact Info) Description 08/21/2017 Patient Msg Medical Records [address] [place] [address] Provider, [facility] Education Program Social History Tobacco Use Types Packs/Day Years Used Date Smoking Tobacco: Never Smokeless Tobacco: Never Sex and Gender Information Value Date Recorded Sex Assigned at Male 11/23/2019 10:00 AM EDT Legal Sex Male 8:05 AM EST Gender Identity Not on file Sexual Orientation Straight 11/23/2019 10 :00 AM EDT documented as of this encounter Plan of Treatment Upcoming Encounters Date Type Department Care Team (Late st Contact Info) Description 11/29/2024 2:20 PM EDT [facility] Endocrine Surgery [address] [phone] Geneva Samayoa MD [address] [place], [place] [phone] post op 02/28/2025 2:20 PM EST Office Visit Endocrinology [address] [place], [place] [phone] Gaudencio Lewis MD [address] [place] [address] [place] [address] Return in about 6 months (around 02/15/2025). documented as of this encounter Visit Diagnoses Not on filedocumented in this encounter Care Teams Belt Cleaner Relationship Specialty Start Date End Date Alvin Contreras DO [address] [place] [address] PCP - General Internal Medicine 06/19/17 documented as of this encounter
--- OUTSIDE RECORDS SUMMARY | 2024-11-22 13:21 | XMS_ITS | Encounter Summary ---
Author Organization [facility] Address [address] [place] [address] Care Team Providers Care Speeder Worker Name Role Phone Alvin Contreras Primary Care Provider Source Comments In the event this information is protected by the Federal Confidentiality of Alcohol and Drug AbusePatient Records regulations: The Federal rules restrict any use of the information to criminally investigate or prosecute any alcohol or drug abuse patient.[facility] Encounter Details Date Type Department Care Team (Late st Contact Info) Description 07/12/2019 Patient Msg Neurology [address] [phone] Provider, [facility]rology - Blood Work Orders Social History Tobacco Use Types Packs/Day Years Used Date Smoking Tobacco: Never Smokeless Tobacco: Never PHQ-2 Answer Date Recorded PHQ-2 score 0 06/30/2019 Sex and Gender Information Value Date Recorded [...] Contact Info) Description 11/29/2024 2:20 PM EDT [facility] Endocrine Surgery [address] [place] [address] Geneva Samayoa MD [address] [place] [address] post op 02/28/2025 2:20 PM EST Office Visit Endocrinology [address] [place] [address] Gaudencio Lewis MD [address] [place] [address] [place] [address] Return in about 6 months (around 02/15/2025). documented as of this encounter Visit Diagnoses Not on filedocumented in this encounter Care Teams Speeder Worker Relationship Specialty Start Date End Date Alvin Contreras DO [address] [place] [address] PCP - General Internal Medicine 06/19/17 documented as of this encounter
--- OUTSIDE RECORDS SUMMARY | 2024-11-22 13:21 | XMS_ITS | Clinical Summary ---
Author Organization [facility] Address [address] [place] [address] Care Team Providers Care Judicial Clerk Name Role Phone Alvin Contreras DO Primary Care Provider [phone] Allergies Active Allergy Reactions Criticality Noted Date Comments Carvedilol Diarrhea 12/16/2022 Meperidine 12/10/2017 Metoprolol 12/16/2022 Penicillins Hives Medium 04/07/2014 Medications magnesium 30 mg tablet Take 500 mg by mouth in the morning. Active nebivolol (Bystolic) 5 mg tabletIndication s:Essential hypertension Take 1 tablet (5 mg) by mouth in the morning. 90 tablet 3 3 03/15/20 Active Additional Information Patient not taking.Reported on 10/25/2024 baclofen (Lioresal) 10 mg tablet Take 10 mg by mouth if needed. Active potassium gluconate 600 mg (99 mg) tablet Take by mouth. Active amLODIPine (Norvasc) 10 mg tabletIndication s:Essential hypertension TAKE 1 TABLET EVERY MORNING 90 tablet 3 4 Active meloxicam (Mobic) 15 mg tablet Take 1 tablet by mouth in the morning. 5 Active losartan (Cozaar) 100 mg tablet Take 1 tablet by mouth every other day. 4 Active ferrous sulfate 325 (65 Fe) MG EC tablet Take 65 mg of iron by mouth every other day. Do not crush, chew, or split. Active flecainide (Tambocor) 100 mg tabletIndication s:Palpitations Take 1 tablet (100 mg) by mouth two times daily. 180 tablet 3 5 06/21/19 26 Active losartan-hydroch lorothiazide (Hyzaar) 100-25 mg tabletIndication s:Essential hypertension TAKE 1 TABLET EVERY MORNING 90 tablet 3 5 Active Active Problems Problem Noted Date Diagnosed Date PAF (paroxysmal atrial fibrillation) 11/10/2023 Disturbance of skin sensation 06/30/2019 Gait abnormality 06/30/2019 Monoplegia of left lower extremity 06/30/2019 Right foot drop 06/30/2019 Chronic pain of right ankle 08/31/2018 Lytic bone lesion of right femur 08/27/2017 Class 2 obesity due to exces s calories without serious comorbidity with body mass index (BMI) of 37.0 to 37.9 in adult 08/24/2017 Overview (05/08/2022): Last Assessment & Plan: BMI-37 REMY (obstructive sleep apnea) 08/24/2017 Overview (05/08/2022): Last Assessment & Plan: Uses CPAP, instructed to bring 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 Overview (05/08/2022): Added automatically from request for surgery [id number] Last Assessment & Plan: H/o, 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 Dyspnea 09/05/2013 Paroxysmal supraventricular tachycardia 04/14/20 12 Overview (05/08/2022): Last Assessment & Plan: Rate well controlled and on Xarelto, pt states stopped 08/28/2018 Last Assessment & Plan: On Amiodarone Chest pain 02/19/2012 Essential hypertension 02/19/2012 Overview (05/08/2022): Last Assessment & Plan: Controlled, on rx Hyperlipidemia 02/19/2012 Primary cardiomyopathy 02/19/2012 Tachycardia 02/19/2012 Encounters Date Type Department Care Team Description 10/27/2024 3:50 AM EDT Ancillary Procedure [facility] [address] [place] [address] Awareness of heartbeats 10/27/2024 Orders Only [facility] [address] [place] [address] Alpesh Jenkins MD 10/25/2024 2:15 PM EDT Office Visit [facility] [address] [facility] [place] [phone] Alpesh Jenkins MD PAF (paroxysmal atrial fibrillation) (CMS/HCC) (Primary Dx) 09/16/2024 Refill [facility] [address] [facility] [place] [phone] Haydee Cadena CNP Essential hypertension 08/26/2024 11:15 PM EDT Ancillary Procedure [facility] [address] [place] [address] Awareness of heartbeats 08/26/2024 Orders Only [facility] [address] [place] [address] Alpesh Jenkins MD from Last 3 Months Family History Medical History Relation Name Comments Coronary artery disease Other Hypertension Other Relation Name Status Comments Father Mother Other Social History Tobacco Use Types Packs/Day Years Used Date Smoking Tobacco: Never Smokeless Tobacco: Never Tobacco Cessation:Counseling Given: Not Answered Alcohol Use Standard Drinks/Week Comments Yes 0 (1 standard drink = 0.6 oz pur e alcohol) occasional [place] Safety & Environment Answer Date Rec orded Fear of Current or Ex-Partner Not on file Emotionally Abused Not on file 06/11/2023 Physically Abused Not on file 06/11/2023 Sexually Abused Not on file 06/11/2023 Physically or Sexually Abused Not on file Sex and Gender Information Value Date Recorded Sex Assigned at Not on file Legal Sex Male 10:57 PM EDT Gender Identity Not on file Sexual Orientation Not on file Last Filed Vital Signs Vital Sign Reading Time Taken Comments Blood Pressure 149/92 10/25/2024 2:29 PM EDT Pulse 63 10/25/2024 2:29 PM EDT Temperature - - Respiratory Rate 11 03/15/2024 2:18 PM EST Oxygen Saturation 96% 10/25/2024 2:29 PM EDT Inhaled Oxygen Concentration - - Weight 122 kg (270 lb) 10/25/2024 2:29 PM EDT Height 190.5 cm (6' 3 ) 10/25/2024 2:29 PM EDT Body Mass Index 33.75 10/25/2024 2:29 PM EDT Plan of Treatment Health Maintenance Due Date Last Done Comments CT Colonography 1950 Colonoscopy 1950 FOBT 1950 Medicare Annual Wellness (AWV) 1950 Sigmoidoscopy 1950 Depression Screening 1961 Adult Tetanus 09/19/1971 Fall Risk Screening 2014 Pneumococcal Vaccine: 50+ Years (2 of 2 - PCV) 01/19/2016 01/18/2015 FIT 02/12/2023 02/12/2022 COVID-19 Vaccine ( season) 2024 12/22/2023, 11/28/2022, 03/19/2022, Additional history exists Influenza Vaccine (#1) 2024 , 12/16/2022, 02/10/2022 Colorectal Cancer Screening 02/12/2025 FIT-DNA 02/12/2025 02/12/2022 Zoster Vaccines Completed 11/13/2022, 07/08/2022 HIB Vaccines Aged Out No longer eligi ble based on patient's age to complete this topic HPV Vaccines Aged Out No longer eligi ble based on patient's age to complete this topic IPV Vaccines Aged Out No longer eligi ble based on patient's age to complete this topic Meningococcal B Vaccine Aged Out No l onger eligible based on patient's age to complete this topic Meningococcal Vaccine Aged Out No ta flavia eligible based on patient's age to complete this topic Rotavirus Vaccines Aged Out No longer eligible based on patient's age to complete this topic Medical Devices Implanted Type Area Slip Maker Device Identifier Shelf Expiration Date Model / Serial / Lot Monitor,Cardi ac,Lux,Dxii+I - [id number] - [id number] Implanted:Qty : 1 on 12/09/2023 by Alpesh Jenkins MD at [facility] Implantable Loop Recorder Left: Chest [employer] 03/31/2025 [id number] / [id number] / Procedures Procedure Name Priority Date/Time Associated Diagnosis Comments CARDIAC DEVICE CHECK CHECK - REMOTE Routine 11/15/2024 10:30 AM EDT Awareness of heartbeats CARDIAC DEVICE CHECK - REMOTE - LOOP RECORDER (ILR) Routine 10/27/2024 12:00 AM EDT CARDIAC DEVICE CHECK CHECK - REMOTE Routine 09/06/2024 12:56 PM EDT Awareness of heartbeats CARDIAC DEVICE CHECK - REMOTE - LOOP RECORDER (ILR) Routine 08/26/2024 12:00 AM EDT from Last 3 Months Results * CARDIAC DEVICE CHECK - REMOTE - LOOP RECORDER (ILR) (11/15/2024 10:30 AM EDT) Only the most recent of2 resultswithin the time period is included. us Alpesh Jenkins MD CV IMPLANTABLE CARDIAC DEVICE WA OCEDURES Final Result CPACS * Cardiac device check - Remote loop recorder (ILR) (10/27/2024 12:00 AM EDT) Only the most recent of2 resultswithin the time period is included. Anatomical Region Laterality Modality Other 10/27/2024 us Alpesh Jenkins MD CV IMPLANTABLE CARDIAC DEVICE WA OCEDURES Final Result from Last 3 Months [place] [address] GENERIC OTHER [facility] [id number] Care Teams Judicial Clerk Relationship Specialty [place] [address] [place] [phone] PCP - General 05/08/22
--- OUTSIDE RECORDS SUMMARY | 2024-11-22 13:21 | XMS_ITS | Encounter Summary ---
Author Organization [facility] Address [address] [place] [id number] Care Team Providers Care Metal Riveting Machine Operator Name Role Phone Alvin Contreras DO Primary Care Provider [phone] Source Comments In the event this information is protected by the Federal Confidentiality of Alcohol and Drug AbusePatient Records regulations: The Federal rules restrict any use of the information to criminally investigate or prosecute any alcohol or drug abuse patient.[facility] Encounter Details Date Type Department Care Team (Late st Contact Info) Description 10/18/2019 Patient Msg Orthopaedics [address] [place], [place] [phone] Provider, [facility] Repeat injection with Dr. Bah Social History Tobacco Use Types Packs/Day Years [...] Assessment Author No 08/31/2017 4:00 PM EDT LigiaJeevan mckeon RN * Are you blind or do [...] Contact Info) Description 11/29/2024 2:20 PM EDT [facility] Endocrine Surgery [address] [place] [address] Geneva Samayoa MD [address] [place] [address] post op 02/28/2025 2:20 PM EST Office Visit Endocrinology [address] [place] [address] Gaudencio Lewis MD [address] [place] [address] [place] [address] Return in about 6 months (around 02/15/2025). documented as of this encounter Visit Diagnoses Not on filedocumented in this encounter Care Teams Metal Riveting Machine Operator Relationship Specialty Start Date End Date Alvin Contreras DO [address] [place] [address] PCP - General Internal Medicine 06/19/17 documented as of this encounter
--- OUTSIDE RECORDS SUMMARY | 2024-11-22 13:21 | XMS_ITS | Clinical Summary ---
Author Organization [facility] Address [address] [place] [address] Care Team Providers Care Inside Polisher Name Role Phone Alvin Contreras DO Primary Care Provider [phone] Allergies Active Allergy Reactions Criticality Noted Date Comments Insects Extract Other: See Comments 10/31/2020 Insect protein - eyes swell and blistering Penicillins Hives Medium 04/07/2014 Medications losartan-hydroc hlorothiazide (HYZAAR) 100-25 mg per tabletIndicatio ns:Neoplasm of unspecified behavior of bone, soft tissue, and skin Take 1 tablet by mouth once daily. 03/20/20 17 Active amLODIPine (NORVASC) 10 mg tablet Take 10 mg by mouth once daily. 3 08/03/19 19 Active Magnesium 30 mg tablet Take 500 mg by mouth once daily. Active flecainide (TAMBOCOR) 100 mg tablet Take 100 mg by mouth two times a day. 10/09/19 22 Active meloxicam (MOBIC) 15 mg tablet Take 15 mg by mouth once daily. Active Aspirin 81 mg tab Take 81 mg by mouth. Active acetaminophen (TYLENOL) 500 mg tablet Take 1 tablet by mouth every 4 hours as needed for pain. 11/16/19 25 Active calcium carbonate (TUMS) 500 mg chew Take 1 tablet by mouth every hour as needed (mouth or hand numbness or tingling). 30 tablet 11/16/19 25 Active calcium-carbona te-vitamin D3 500 mg-5 mcg (200 unit) per tablet Take 1 tablet by mouth three times a day. 90 tablet 11/16/19 25 Active amiodarone (PACERONE) 100 mg tabletIndicatio ns:Neoplasm of unspecified behavior of bone, soft tissue, and skin Take 100 mg by mouth once daily. Taking 200 mg's every other day and taking 100mg's every other day. 025 Discontinued potassium (POTASSIMIN ORAL) Take 300 mg by mouth once daily. 025 Discontinued aspirin 325 mg tablet Take 325 mg by mouth once daily. 025 Discontinued metoprolol succinate ER (TOPROL XL) 25 mg 24 hr tablet every 24 hours. 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 AMLODIPINE 10 MG TABLET Take 10 mg by mouth once daily. Follows with PCP. Last 3 Encounter BP Readings: Date: BP: 11/01/2024 145/79 09/13/2024 124/63 08/16/2024 127/70 Assessment & Plan (08/31/2018 2:51 PM EDT): Controlled, on rx Paroxysmal atrial fibrillation 08/24/2017 Assessment & Plan (11/02/2024 11:03 AM EDT): H/o cardioversion 2015 Regular rate and rhythm on exam Sinus lanette on ECG today Managed with flecainide and and ASA Follows with ADRIAN Bennett 10/25/24 Assessment & Plan (08/31/2018 2:51 PM EDT): Rate well controlled and on Xarelto, pt states stopped 08/28/2018 SVT (supraventricular tachycardia) 08/24/2017 Assessment & Plan (11/02/2024 11:03 AM EDT): H/o cardioversion 2015 Sinus lanette on ECG today Managed with flecainide Follows with ADRIAN Bennett 10/25/24 Assessment & Plan (08/31/2018 2:51 PM EDT): On Amiodarone Class 1 obesity due to exces s calories without serious comorbidity with body mass index (BMI) of 34.0 to 34.9 in adult 08/24/2017 Assessment & Plan (11/01/2024 11:30 AM EDT): Body mass index is 34.02 kg/m . 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): Added automatically from request for surgery [id number] Assessment & Plan (11/01/2024 9:34 AM EDT): H/o, 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 Assessment & Plan (08/31/2018 2:53 PM EDT): H/o, 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 Encounters Date Type Department Care Team Description 11/21/2024 Get Medical Advice Endocrine Surgery [address] [id number] Geneva Samayoa MD CALCIUM TOTAL BLD, Parathyroid hormone (PTH intact), Vitamin D, 25-hydroxy 11/18/2024 Telephone Endocrine Surgery [address] [place], [place] [phone] Geneva Samayoa MD Post Op 11/18/2024 Orders Only Endocrine Surgery [address] [place] [address] Geneva Samayoa MD Hyperparathyroidism (HCC) (Primary Dx) 11/14/2024 7:30 AM EDT - 11/14/2024 9:00 AM EDT Surgery [facility] Surgery [address] [place] [address] Geneva Samayoa MD PARATHYROIDECTOMY 11/14/2024 7:23 AM EDT Anesthesia Event [facility] [address] [place] [address] Sidney Larsen III, MD 11/14/2024 6:27 AM EDT - 11/15/2024 8:46 AM EDT [place] [address] Geneva Samayoa MD Hyperparathyroidism (HCC) [E21.3] Discharge Disposition: Home 11/03/2024 Patient Msg INITIAL DEPARTMENT [facility] Provider, [facility] Actionable Imaging Result Notification Patient Outreach 11/01/2024 1:18 PM EDT - 11/01/2024 11:59 PM EDT Hospital Encounter Molecular Imaging [address] [place] [address] Hyperparathyroidism (HCC) [E21.3] Discharge Disposition: Home 11/01/2024 11:15 AM EDT Procedure Cardiology [address] [place] [address] 11/01/2024 10:05 AM EDT - 11/01/2024 1:17 PM EDT Hospital Encounter Molecular Imaging [address] [place], [place] [phone] Discharge Disposition: Home 11/01/2024 9:00 AM EDT PAT Pre Anesthesia [address] [id number], [facility] Chondrosarcoma (HCC) (Primary Dx); REMY (obstructive sleep apnea); Essential hypertension; Class 1 obesity due to excess calories without serious comorbidity with body mass index (BMI) of 34.0 to 34.9 in adult; Paroxysmal atrial fibrillation (HCC); SVT (supraventricular tachycardia) (HCC) 11/01/2024 Travel 10/19/2024 Travel 10/07/2024 Patient Msg Endocrine Surgery [address] [place] [address] Provider, [facility] Pre-op Appointments 10/04/2024 Telephone Endocrine Surgery [address] [place] [address] Geneva Samayoa MD NM Parathyroid Request 09/13/2024 12:20 PM EDT Office Visit Endocrine Surgery [address] [place], [place] [phone] Geneva Samayoa MD Hyperparathyroidism (HCC) (Primary Dx) 09/13/2024 Patient Update Endocrine Surgery [address] [place] [address] Geneva Samayoa MD 11/14 MM - Parathyroidectomy (Needs: labs, EKG, NM scan of Parathyroid, in-person PACC and 2 wk phone post-op.) 09/13/2024 Travel 09/13/2024 Orders Only Endocrine Surgery [address] [place] [address] Geneva Samayoa MD Hyperparathyroidism (HCC) (Primary Dx) 08/23/2024 Patient Msg Endocrinology [address] [place] [address] Provider, [facility] Appontment Rescheduled 08/23/2024 Telephone Endocrine Surgery [address] [place] [address] Geneva Samayoa MD Appointment (Left a messge that appointment with scheduled for today(08/23) was rescheduled to 09/13 at 12:20 PM due to patient not feeling well. Sent My chart message) 08/23/2024 Orders Only Endocrine Surgery [address] [place] [address] Geneva Samayoa MD Hyperparathyroidism (HCC) (Primary Dx) from Last 3 Months Family History Medical History Relation Comments Lymphoma Father Diabetes Maternal Grandmother Diabetes Mother Anesthesia Problems No Family History Relation Status Comments Father Maternal Grandmother Mother Social History Tobacco Use Types Packs/Day Years Used Date Smoking Tobacco: Never Passive Smoke Exposure: Past Smokeless Tobacco: Never Tobacco Cessation:Counseling Given: Not Answered Alcohol Use Standard Drinks/Week Comments Not Currently 0 (1 standard drink = 0.6 oz pur e alcohol) PHQ-2 Answer Date Recorded PHQ-2 score 0 06/30/2019 Area Deprivation Index Answer Date Mumtaz rded National Score (1-100), lower number is lower ri sk 60 01/13/2023 State Score (1-10), lower number is lower risk 4 01/13/2023 Data from: https://www.neighborhoodatlas.[facility].edu/. Last address used for calculation [address] 01/13/2023 Sex and Gender Information Value Date Recorded Sex Assigned at Male 11/23/2019 10:00 AM EDT Legal Sex Male 8:05 AM EST Gender Identity Not on file Sexual Orientation Straight 11/23/2019 10 :00 AM EDT Last Filed Vital Signs Vital Sign Reading [...] Mass Index 33.37 11/14/2024 9:38 AM EDT Plan of Treatment Upcoming Encounters Date Type Department Care Team (Late st Contact Info) Description 11/29/2024 2:20 PM EDT [facility] Endocrine Surgery [address] [place] [address] Geneva Samayoa MD [address] [place] [address] post op 02/28/2025 2:20 PM EST Office Visit Endocrinology [address] [facility] [place] [address] Gaudencio Lewis MD [address] [place] [address] [place] [address] Return in about 6 months (around 02/15/2025). Health Maintenance Due Date Last Done Comments Annual PCP Team Chronic Dise ase Visit 09/19/1967 Anxiety Screening 09/19/1967 Depression Screening 09/19/1967 Hepatitis C Screening 09/19/[address] Colonography 1994 Colonoscopy 1994 Fecal Occult Blood 1994 Sigmoidoscopy 1994 Medicare Annual Wellness Visit 08/18/2014 Advance Directive Discussion 04/20/2024 Influenza Vaccine (#1) 2024 4, 12/16/2022, 02/10/2022 Cologuard (FIT-DNA) 02/12/2025 02/12/2022, 9 Colorectal Cancer Screening 02/12/2025 DTaP,Tdap,Td Vaccine (3 - Tdap) 10/02/2026 7, 02/25/2006 Diabetes Screening 11/02/2027 11/01/2024, 0 10/26/2019, 08/31/2018, Additional history exists Pneumococcal Vaccine: 50+ Completed 2015, 01/18/2015, 03/01/2009 Shingrix Vaccine Completed 11/13/2022, 07/08/2022 RSV Vaccine Completed 03/03/2023 Medical Devices Implanted Type Area Youth Leader Device Identifier Shelf Expiration Date Model / Serial / Lot Graft Enhance Demineralized Cortical Fiber Bone Allograft Dehydrate 2.5ml - [id number] Implanted:Qty: 1 on 08/27/2017 at [facility] Bone PRF 07/28/2018 [id number] / / [id number] Graft Cancellous Chips Bone Void Freeze Dry 30ml (1.7-10mm) - [id number] Implanted:Qty: 1 on 08/27/2017 at [facility] Bone PRF 05/30/2020 [id number] / / [id number] Graft Dbx Bone Void Allograft Freeze Dried Putty 1ml - [id number] Implanted:Qty: 1 on 08/27/2017 at [facility] Cement / Putty MTF 01/27/2019 [id number] / [id number] / Tibial Nail Implanted:Qty: 1 on 08/27/2017 at [facility] Implant OTHER 11/27/2021 [id number] / / [id number] Carbofix Titaniumscrew Implanted:Qty: 1 on 08/27/2017 at [facility] Implant OTHER [id number] / / Carbofix Titanium Screw Implanted:Qty: 1 on 08/27/2017 at [facility] Implant OTHER [id number] / / Carbofix Titanium Screw Implanted:Qty: 1 on 08/27/2017 at [facility] Implant OTHER PCST [id number] / / Carbofix Titanium Screw Implanted:Qty: 1 on 08/27/2017 at [facility] Implant OTHER [id number] / / Carbofix Titanium Screw Implanted:Qty: 1 on 08/27/2017 at [facility] Implant OTHER [id number] / / Procedures Procedure Name Priority Date/Time Associated [...] 7: 49 AM EDT Hyperparathyroidis m (HCC) INTUBATION Routine 11/14/2024 7:32 AM EDT INTRA OP ULTRASONIC GUIDANCE 11/14/2024 7:23 AM EDT Hyperparathyroidis m (HCC) PARATHYROIDECTOMY/EXPLO RATION PARATHYROIDS 11/14/2024 7:23 AM EDT Hyperparathyroidis m (HCC) US THYROID/PARATHYROID (POC) ENDO USE ONLY Routine 11/14/2024 6:25 AM EDT NM PARATHYROID W SPECT/CT Routine 11/01/2024 2:25 PM EDT Hyperparathyroidis m (HCC) ECG COMPLETE Routine 11/01/2024 11:55 AM EDT Hyperparathyroidis m (HCC) CBC + DIFF Routine 11/01/2024 11:24 AM EDT Hyperparathyroidis m (HCC) BASIC METABOLIC PANEL Routine 11/01/2024 11:24 AM EDT Hyperparathyroidis m (HCC) CALCIUM IONIZED BLOOD Routine 11/01/2024 11:24 AM EDT Hyperparathyroidis m (HCC) CREATININE 24 HR UR Routine 10/19/2024 1 :36 PM EDT Hyperparathyroidis m (HCC) CALCIUM 24 HR URINE Routine 10/19/2024 1 :35 PM EDT Hyperparathyroidis m (HCC) EXTERNAL IMAGING 09/21/2024 12:1 3 PM EDT US THYROID/PARATHYROID (POC) ENDO USE ONLY Routine 09/13/2024 11:25 AM EDT Hyperparathyroidis m (HCC) from Last 3 Months Results * PTH INTACT (11/15/2024 4:01 AM EDT) PTH, Intact 16 15 - 65 pg/mL 11/15/2024 5:41 AM EDT [facility] Blood BLOOD SPECIMEN / Unknown Venipuncture / Unknown 11/15/2024 4:01 AM EDT 11/15/2024 4:39 AM EDT us Tiffany Sanchez MD LABORATORY Final Result [facility] [address] [place] [address], * CALCIUM, TOTAL (11/15/2024 4:01 AM EDT) Calcium, Total 9.2 8.5 - 10.2 mg/dL 11/15/2024 5:27 AM EDT [facility] Blood BLOOD SPECIMEN / Unknown Venipuncture / Unknown 11/15/2024 4:01 AM EDT 11/15/2024 4:38 AM EDT us Tiffany Sanchez MD LABORATORY Final Result [facility] [address] [place] [address], * ECG COMPLETE (11/14/2024 11:35 AM EDT) Ventricular Rate 64 BPM [facility] Atrial Rate 64 BPM [facility] P-R Interval 164 ms [facility] QRS Duration 192 ms [facility] QT Interval 488 ms [facility] QTC Calculation (Bazett) 503 ms [facility] Calculated P Ware 73 degrees [facility] Calculated R Ware -76 degrees [facility] Calculated T Ware 19 degrees [facility] 11/14/2024 11:3 5 AM EDT Impressions [facility] - 11/14/2024 12:20 PM EDT Normal sinus rhythm Right bundle branch block Left anterior fascicular block Bifascicular block Septal infarct , age undetermined Abnormal ECG No previous ECGs available Confirmed by KEON MAGAÑA MD ([id number]) on 11/14/2024 12:20:23 PM Narrative [facility] - 11/14/2024 12:20 PM EDT NAME : BANG SHARMA PID : [id number] : 1950 Gender : Male Race : ORD : [id number] Procedure Date : Nov 14 2024 11:35:23 Edit Date : Nov 14 2024 12:20:28 Diagnosis: Normal sinus rhythm Right bundle branch block Left anterior fascicular block Bifascicular block Septal infarct , age undetermined Abnormal ECG No previous ECGs available Confirmed by KEON MAGAÑA MD ([id number]) on 11/14/2024 12:20:23 PM Test Reason : Post-OP Location : 1 : [facility] 0211 Overread By : KEON MAGAÑA MD Edited By : KEON MAGAÑA MD Referred By : , Acquired by : DUONG KUMAR us Tiffany Sanchez MD EKG Final Result Performing Organization Address [facility] Co de Phone Number [facility] [address] [place] [address] * (ABNORMAL) INTRAOPERATIVE PTH (11/14/2024 8:10 AM EDT) Only the most recent of2 resultswithin the time period is included. Intraoperative PTH 73(H) 15 - 65 pg/mL 11/14/2024 9:11 AM EDT [facility] Blood BLOOD SPECIMEN / Unknown 11/14/2024 8:10 AM EDT 11/14/2024 8:50 AM EDT Comment:Pre-op diagnosis: Hyperparathyroidism (HCC) [E21.3] us Geneva Samayoa MD LABORATORY Final Res ult Performing Organization Address [facility] Co de Phone Number [facility] [address] [place] [address], * SURGICAL PATHOLOGY (11/14/2024 7:55 AM EDT) Case Report Surgical Pathology Report Case: [id number] Authorizing Provider: Geneva Samayoa MD Collected: 11/14/2024 07:55 AM Ordering Location: [facility] Received: 11/14/2024 08:04 AM Pathologist: Deysi Singh MD Intraop: Ella Johnson MD Specimens: A) - Parathyroid Gland, Right, right upper [id number] B) - Parathyroid Gland, Left, Left upper 12x9x3 C) - Parathyroid Gland, Right, right upper [id number] 11/16/2024 11:04 AM EDT [facility] FINAL DIAGNOSIS A, C. Right upper parathyroid, excision: - Hypercellular parathyroid. B. Left upper parathyroid, excision: - Hypercellular parathyroid. SHANA November 16, 2024 11/16/2024 11:04 AM EDT [facility] at 1104 EDT Gross Description A. Parathyroid Gland, Right FSA1: Received fresh for frozen section is one piece of brown soft tissue weighing 0.590 grams and measuring 2.2 x 0.9 x 0.6 cm. A commercial pest control representative section is submitted for frozen section in FSA1. Gross examination performed at [facility], [address], [place] [id number] CLIA# [id number] B. Parathyroid Gland, Left FSB1: Received fresh for frozen section is one piece of brown soft tissue weighing 0.245 grams and measuring 0.9 x 0.9 x 0.3 cm. The tissue is entirely submitted for frozen section in FSB1. Gross examination performed at [facility], [address], [place] [id number] CLIA# [id number] C. Parathyroid Gland, Right Labeled: Right upper 31 x 18 x 10 Received: In formalin Size: 2.8 x 1.5 x 0.9 cm Weight: 1640 mg Cassette code: Representatively in C1 (serially section) Gross examination performed at [facility], [address] [place], [place] [id number] MSL/MADIHA 11/14/24 12:25 PM 11/16/2024 11:04 AM EDT [facility] Intraoperative Diagnosis A. Parathyroid Gland, Right FSA1: Hypercellular parathyroid tissue (Ella Johnson MD) Intraoperative diagnosis performed at [facility], [address], [place] [address] CLIA# [id number] B. Parathyroid Gland, Left FSB1: Hypercellular parathyroid tissue (Ella Johnson MD) Intraoperative diagnosis performed at [facility], [address] [place] [address] CLIA# [id number] 11/16/2024 11:04 AM [facility] Clinical History Pre-op diagnosis: Hyperparathyroidis m (HCC) [E21.3] 11/16/2024 11:04 AM [facility] Performing Lab Diagnostic interpretation performed at: [facility], [address] [place], [place] [address] [place] [address] CLIA# [id number] Pipe Cleaner: Herson Cuenca MD 11/16/2024 11:04 AM EDT [facility] Disclaimer Laboratory Developed Test (LDT) Disclaimer: Performance characteristics of immunohistochemica l, immunofluorescent, and chromogenic in-situ hybridization tests have been determined by the performing laboratory within [facility]'s [facility] Pathology and Laboratory Medicine Department ([facility], [facility], [facility], [facility], [facility], [facility], or [facility]) in a manner consistent with CLIA requirements. One or more of these tests may not have been cleared or approved by the FDA. [facility] is regulated under CLIA as qualified to perform high-complexity testing. These tests are used for clinical purposes. These should not be regarded as investigational or for research. Positive and negative controls stain appropriately. 11/16/2024 11:04 AM EDT [facility] Tissue PARATHYROID STRUCTURE / Unknown 11/14/2024 [...] Geneva Samayoa MD SURGICAL PATHOLOGY Final Result [facility] [address] [place] [address], [facility] [address] [place] [address], * Airway (11/14/2024 7:32 AM EDT) Narrative Nanda Hawkins APRN.SENIOR INTEGRATION ARCHITECT - 11/14/2024 7:32 AM EDT Nanda Hawkins APRN.SENIOR INTEGRATION ARCHITECT 11/14/2024 7:46 AM Airway General Information Procedure Start Time/Medication Administration: 11/14/2024 7:32 AM Procedure End Time: 11/14/2024 7:32 AM Patient location during procedure: OR Staffing SENIOR INTEGRATION ARCHITECT: Nanda Hawkins APRN.SENIOR INTEGRATION ARCHITECT Performed by: SENIOR INTEGRATION ARCHITECT Indications and Patient Condition Indications for airway management: anesthesia Preoxygenated: yes anesthesia circuit Method: sleep Difficult Mask: No Final Airway Details Final airway type: endotracheal airway Final Endotracheal Airway: ETT Cuffed: yes Successful intubation technique: video laryngoscopy Devices used: [employer] Endotracheal tube insertion site: oral Blade size: #3 ETT size (mm): 7.5 Measured from: lips Measurement (cm): 23 Placement verified by: capnometry Cormack-Lehane Classification: grade I - full view of glottis Number of attempts at approach: 1 Airway not difficult us Sidney Larsen III, MD ANESTHESIA ORDERABLES Elsie l Result * US THYROID/PARATHYROID (POC) ENDO USE ONLY (11/14/2024 6:25 AM EDT) Anatomical Region Laterality Modality Other 11/14/2024 6:25 AM EDT us Tiffany Sanchez MD IMAGES Final Result * (ABNORMAL) NM PARATHYROID W SPECT/CT (11/01/2024 [...] be communicated with the ordering provider via [employer] staff message or phone message by [facility] within 2 business days of report finalization. --END OF FINDING-- Quality Control Inspector: BARBARA Transcribe Date/Time: Nov 02 2024 7:32A [...] Procedure Note Provider, [facility] - 11/02/2024 * * *Final Report* * [...] be communicated with the ordering provider via [employer] staff message or phone message by [facility] within 2 business days of report finalization. --END OF FINDING-- Quality Control Inspector: BARBARA Transcribe Date/Time: Nov 02 2024 7:32A Dictated by : SKIP RIVERA DO This examination was interpreted and the report reviewed and electronically signed by: SKIP RIVERA DO on Nov 02 2024 7:42AM EST us Geneva Samayoa MD NM-PAMA Final Res ult * (ABNORMAL) CALCIUM, IONIZED (11/01/2024 11:24 AM EDT) [facility] Normalized Calcium 1.44(H) 1.08 - 1.30 mmol/L 11/01/2024 2:08 PM EDT [facility] Calcium Ionized, Whole Blood 1.45(H) 1.08 - 1.30 mmol/L 11/01/2024 2:08 PM EDT [facility] Blood BLOOD SPECIMEN / Unknown Venipuncture / Unknown 11/01/2024 11:24 AM EDT 11/01/2024 11:24 AM EDT us Geneva Samayoa MD LABORATORY Final Res ult [facility] [address] [place] [address], * COMPLETE BLOOD COUNT AND DIFFERENTIAL (11/01/2024 11:24 AM EDT) [facility] WBC 5.86 3.70 - 11.00 k/uL 11/01/2024 12:25 PM EDT [facility] RBC 4.58 4.20 - 6.00 m/uL 11/01/2024 12:25 PM EDT [facility] Hemoglobin 14.3 13.0 - 17.0 g/dL 11/01/2024 12:25 PM EDT [facility] Hematocrit 44.3 39.0 - 51.0 % 11/01/2024 12:25 PM EDT [facility] MCV 96.7 80.0 - 100.0 fL 11/01/2024 12:25 PM EDT [facility] MCH 31.2 26.0 - 34.0 pg 11/01/2024 12:25 PM EDT [facility] MCHC 32.3 30.5 - 36.0 g/dL 11/01/2024 12:25 PM EDT [facility] RDW-CV 13.6 11.5 - 15.0 % 11/01/2024 12:25 PM EDT [facility] Platelet Count 307 150 - 400 k/uL 11/01/2024 12:25 PM EDT [facility] MPV 9.1 9.0 - 12.7 fL 11/01/2024 12:25 PM EDT [facility] Neutrophils % 59.7 % 11/01/2024 12:25 PM EDT [facility] Abs Neut 3.50 1.45 - 7.50 k/uL 11/01/2024 12:25 PM EDT [facility] Lymphocytes % 25.3 % 11/01/2024 12:25 PM EDT [facility] Abs Lymph 1.48 1.00 - 4.00 k/uL 11/01/2024 12:25 PM EDT [facility] Monocytes % 11.9 % 11/01/2024 12:25 PM EDT [facility] Abs Fannin 0.70 <0.87 k/uL 11/01/2024 12:25 PM EDT [facility] Eosinophils % 1.9 % 11/01/2024 12:25 PM EDT [facility] Abs Eosin 0.11 <0.46 k/uL 11/01/2024 12:25 PM EDT [facility] Basophils % 0.9 % 11/01/2024 12:25 PM EDT [facility] Abs Baso 0.05 <0.11 k/uL 11/01/2024 12:25 PM EDT [facility] Immature Granulocytes % 0.3 % 11/01/2024 12:25 PM EDT [facility] Abs Immature Gran <0.03 <0.10 k/uL 025 12:25 PM EDT [facility] NRBC 0.0 /100 WBC 11/01/2024 12:25 PM EDT [facility] Absolute nRBC <0.01 <0.01 k/uL 11/01/2024 12:25 PM EDT [facility] Diff Type Auto 11/01/2024 12:25 PM EDT [facility] Blood BLOOD SPECIMEN / Unknown Venipuncture / Unknown 11/01/2024 11:24 AM EDT 11/01/2024 11:24 AM EDT us Geneva Samayoa MD LABORATORY Final Res ult [facility] [address] [place] [address], [place] * (ABNORMAL) BASIC METABOLIC PANEL (11/01/2024 11:24 AM EDT) Glucose 108(H) 74 - 99 mg/dL 11/01/2024 2:16 PM EDT [facility] Comment: The [place] Diabetes Association (ADA) provides guidance for cutoff [...] Standards of Medical Care in Diabetes 2016, [place] Diabetes Association. Diabetes Care. 2016.39(Suppl 1). BUN 18 9 - 24 mg/dL 11/01/2024 2:16 PM EDT [facility] Creatinine 0.86 0.73 - 1.22 mg/dL 11/01/2024 2:16 PM EDT [facility] Sodium 140 136 - 144 mmol/L 11/01/2024 2:16 PM EDT [facility] Potassium 4.5 3.7 - 5.1 mmol/L 11/01/2024 2:16 PM EDT [facility] Chloride 105 98 - 107 mmol/L 11/01/2024 2:16 PM EDT [facility] CO2 26 22 - 30 mmol/L 11/01/2024 2:16 PM EDT [facility] Anion Gap 9 8 - 15 mmol/L 11/01/2024 2:16 PM EDT [facility] Calcium, Total 11.0(H) 8.5 - 10.2 mg/dL 11/01/2024 2:16 PM EDT [facility] Estimated Glomerular Filtration Rate 90 >=60 mL/min/1. 73m 11/01/2024 2:16 PM EDT [facility] Comment:Estimated Glomerular Filtration Rate (eGFR) is [...] Geneva Samayoa MD LABORATORY Final Res ult [facility] [address] [place] [address], * (ABNORMAL) CREATININE, 24 HOUR URINE (10/19/2024 1:36 PM EDT) Creatinine 24 hr Ur 2.006(H) 1.000 - 2.000 g/24 hr 10/20/2024 5:25 PM EDT [facility] Period 24 hr 10/20/2024 5:25 PM EDT [facility] Volume 1,750 mL 10/20/2024 5:25 PM EDT [facility] Urine URINE SPECIMEN / Unknown Non Blood / Unknown 10/19/2024 1:36 PM EDT 10/19/2024 1:36 PM EDT Geneva Samayoa MD LABORATORY Final Res ult Performing Organization Address [facility] Co de Phone Number [facility] [address] [place] [address], [facility] [address] [place] [address] * (ABNORMAL) CALCIUM, 24 HR URINE (10/19/2024 1:35 PM EDT) Calcium, 24 Hr Urine 357.0(H) 100.0 - 300.0 mg/24 hr 10/20/2024 7:10 PM EDT [facility] Period 24 hr 10/20/2024 7:10 PM EDT [facility] Volume 1,750 mL 10/20/2024 7:10 PM EDT [facility] Urine URINE SPECIMEN / Unknown Non Blood / Unknown 10/19/2024 1:35 PM EDT 10/19/2024 1:35 PM EDT Geneva Samayoa MD LABORATORY Final Res ult Performing Organization Address [facility] Co de Phone Number [facility] [address] [place] [address], [facility] [address] [place] [address] * EXTERNAL IMAGING (09/21/2024 12:13 PM EDT) Anatomical Region Laterality Modality Other us External Provider PA-C RADIOLOGY Final Res ult * US THYROID/PARATHYROID (POC) ENDO USE ONLY (09/13/2024 11:25 AM EDT) Anatomical Region Laterality Modality Other 09/13/2024 11:2 5 AM EDT us Geneva Samayoa MD IMAGES Final Res ult from Last 3 Months Insurance MEDICARE [employer] Advance Directives Documents on File Type Date Recorded Patient Cotton Program Technician Expl anation Advance Directive(s) 08/24/2017 2:28 PM Care Teams Inside Polisher Relationship Specialty Start Date End Date Alvin Contreras DO [address] [facility] [place] [address] PCP - General Internal Medicine 06/19/17
--- OUTSIDE RECORDS SUMMARY | 2024-11-22 13:21 | XMS_ITS | Clinical Summary ---
Author Organization [facility] Address [address] [place] [address], [address] [place] [address] Care Team Providers Care Receiving Barn Custodian Name Role Phone Unavailable Primary Care Provider Unavailabl e Social History Tobacco Use Types Packs/Day Years Used Date Smoking Tobacco: Never Assessed Sex and Gender Information Value Date Recorded Sex Assigned at Not on file Legal Sex Male 1:08 AM EST Gender Identity Not on file Sexual Orientation Not on file Plan of Treatment Not on file
--- OUTSIDE RECORDS SUMMARY | 2024-11-22 13:21 | XMS_ITS | Clinical Summary ---
Author Organization [facility] tem Address [id number] [address] [place] [address] Care Team Providers Care Overlay Operator Name Role Phone Ben Alvin Juanjose NEWBERRY Primary Care Provider [phone] Allergies Active Allergy Reactions Criticality Noted Date Comments Meperidine 12/10/2017 Penicillins Hives 12/10/2017 Medications rivaroxaban (XARELTO) 20 mg tablet tablet Take 20 mg by mouth Daily at 0600. Active verapamil SR (CALAN-SR) 120 mg CR tablet Take 120 mg by mouth nightly. Active amiodarone (PACERONE) 100 mg tablet Take 200 mg by mouth daily. 100 mg every other day Active losartan-hydroCH LOROthiazide (HYZAAR) 100-25 mg per tablet Take 1 tablet by mouth daily. 03/20/2017 Active Active Problems Patient Care Coordination No te Formatting of this note migh t be different from the original. ECHO 60% 11/04, 55% 10/04 Problem Noted Date Diagnosed Date Hyperlipidemia 12/10/2017 Essential hypertension 12/10/2017 Primary cardiomyopathy 12/10/2017 Paroxysmal supraventricular tachycardia 12/11/19 18 Paroxysmal ventricular tachycardia 12/10/2017 Atrial fibrillation 12/10/2017 Tachycardia 12/10/2017 Dyspnea 12/10/2017 Chest pain 12/10/2017 Family History Medical History Relation Name Comments Coronary artery disease Other Hypertension Other Relation Name Status Comments Other Social History Tobacco Use Types Packs/Day Years Used Date Smoking Tobacco: Never Smokeless Tobacco: Never Alcohol Use Standard Drinks/Week Comments No 0 (1 standard drink = 0.6 oz pur e alcohol) Childcare Answer Date Recorded Childcare Unknown 09/29/2018 Employment Answer Date Recorded Employment Unknown 09/29/2018 Purpose - Life Answer Date Recorded Purpose and direction in life Unknown Sex and Gender Information Value Date Recorded Sex Assigned at Not on file Legal Sex Male 11:56 AM EDT Gender Identity Not on file Sexual Orientation Not on file Last Filed Vital Signs Vital Sign Reading Time Taken Comments Blood Pressure 148/110 12/15/2017 2:23 PM EDT Pulse 68 12/15/2017 2:23 PM EDT Temperature - - Respiratory Rate - - Oxygen Saturation - - Inhaled Oxygen Concentration - - Weight 132.5 kg (292 lb) 12/15/2017 2:23 PM EDT Height 190.5 cm (6' 3 ) 12/15/2017 2:23 PM EDT Body Mass Index 36.5 12/15/2017 2:23 PM EDT Plan of Treatment Health Maintenance Due Date Last Done Comments Depression Screening 1961 Tobacco Screening 1961 DTaP,Tdap and Td Vaccines (1 - Tdap) 1968 Zoster (Shingles) Vaccine (1 of 2) 09/19/1999 Fall Risk Screening 2014 Influenza Vaccine 12/19/2024 Medical Devices Not on file Insurance MEDICARE [employer] [place] [id number] Care Teams Overlay Operator Relationship Specialty Start Date End Date Alvin Contreras DO [facility] [place] [address] PCP - General 12/15/17
--- OUTSIDE RECORDS SUMMARY | 2024-11-22 13:21 | XMS_ITS | Encounter Summary ---
Author Organization [facility] Address [address] [place] [address] Care Team Providers Care Environmental Designer Name Role Phone Alvin Contreras DO Primary Care Provider [phone] Source Comments In the event this information is protected by the Federal Confidentiality of Alcohol and Drug AbusePatient Records regulations: The Federal rules restrict any use of the information to criminally investigate or prosecute any alcohol or drug abuse patient.[facility] Encounter Details Date Type Department Care Team (Late st Contact Info) Description 08/17/2024 Patient Msg Endocrine Surgery [address] [phone] Provider, Ccf Appointment Social History Tobacco Use Types Packs/Day Years Used Date Smoking Tobacco: Never Smokeless Tobacco: Never PHQ-2 Answer Date Recorded PHQ-2 score 0 06/30/2019 Area Deprivation Index Answer Date Mumtaz rded National Score (1-100), lower number is lower ri sk 60 01/13/2023 State Score (1-10), lower number is lower risk 4 01/13/2023 Data from: https://www.neighborhoodatlas.medicine.[facility].edu/. Last address used for calculation [address] [place] [address] 01/13/2023 Sex and Gender Information Value Date [...] Description 11/29/2024 2:20 PM EDT [facility] Endocrine Surgery [address] [place] [address] Geneva Samayoa MD [address] [place] [address] post op 02/28/2025 2:20 PM EST Office Visit Endocrinology [address] [place], [place] [id number] Gaudencio Lewis MD [address] [place] [address] [place] [address] Return in about 6 months (around 02/15/2025). documented as of this encounter Visit Diagnoses Not on filedocumented in this encounter Care Teams Environmental Designer Relationship Specialty Start Date End Date Alvin Contreras DO [address] [place] [address] PCP - General Internal Medicine 06/19/17 documented as of this encounter
--- OUTSIDE RECORDS SUMMARY | 2024-11-22 13:21 | XMS_ITS | Encounter Summary ---
Author Organization [facility] Address [address] [place] [address] Care Team Providers Care Enterprise Sales Person Name Role Phone Alvin Contreras DO Primary Care Provider [phone] Encounter Details Date Type Department Care Team (Late st Contact Info) Description 10/27/2024 Orders Only [facility] [address] [place] [address] Alpesh Jenkins MD [address] [place] [address] Social History Tobacco Use Types Packs/Day Years Used Date Smoking Tobacco: Never Smokeless Tobacco: Never Alcohol Use Standard Drinks/Week Comments Yes 0 [...] on file documented as of this encounter Procedures Procedure Name Priority Date/Time Associated Diagnosis Comments CARDIAC DEVICE CHECK - REMOTE - LOOP RECORDER (ILR) Routine 10/27/2024 12:00 AM EDT documented in this encounter Results * Cardiac device check - Remote loop recorder (ILR) (10/27/2024 12:00 AM EDT) Anatomical Region Laterality Modality Other 10/27/2024 us Alpesh Jenkins MD CV IMPLANTABLE CARDIAC DEVICE OK OCEDURES Final Result documented in this encounter Visit Diagnoses Not on filedocumented in this encounter Care Teams Enterprise Sales Person Relationship Specialty Start Date End Date Alvin Contreras DO [address] [place] [address] PCP - General 05/08/22 documented as of this encounter
--- OUTSIDE RECORDS SUMMARY | 2024-11-22 13:21 | XMS_ITS | Patient Health Record ---
Author Organization [facility] [place] Address [address] [place] [address] Care Team Providers Care Roof Tile Layer Name Role Phone Alvin Contreras DO Primary Care Provider Unavaila Gomez Strickland Unavailable [phone] Amy Davin Unavailable [phone] Allergies No Known Allergies Results Component Value Reference Range Notes XR ankle RT min 3V (Not yet reviewed by provider) Interpretation: Performing Lab: Notes/Report: Source Facility: [place] [address] XRay Report Signed Patient: BANG SHARMA MR#: [id number] : 1950 Acct:[id number] Age/Sex: 73 / M ADM Date: 12/30/23 Loc: EC Attending Dr: Gomez Schneider D.P.M. Ordering Physician: Gomez Schneider D.P.M. Date of Service: 12/30/23 Procedure(s): XR ankle RT min 3V Accession Number(s): [id number] cc: Alvin Contreras D.O.; Gomez Schneider D.P.M. [place] [id number] Patient Name: BANG SHARMA MRN: [id number] date: 1950 Sex: M Assigned Patient Location: EC Current Patient Location: Accession/Order Number: [id number] Exam Date: 12/30/2023 10:40 Report Date: 01/01/2024 04:33 At the request of: GOMEZ SCHNEIDER Procedure: XR ankle RT min 3V PROCEDURE: XR ankle RT min 3V HISTORY: RIGHT ANKLE PAIN COMPARISON: XR ankle bilateral 08/09/2020 FINDINGS: BONES:Intramedullary laura and locking screws within tibia. Marked narrowing of the lateral aspect of ankle joint with preservation of medial joint space. Large degenerative osteophyte along the anterior margin of tibial plafond. Small corticated ossifications distal to the medial and lateral malleolus favoring sequela of remote injuries. Degenerative changes the midfoot. Calcaneal plantar spur. SOFT TISSUES:No visible soft tissue swelling. EFFUSION:None visible. OTHER: Negative. XR/XR ankle RT min 3V IMPRESSION: 1. Stable surgical changes. 2. Slight progression of joint space narrowing of the ankle joint. Electronically authenticated by: DU LIEBERMAN Date: 01/01/2024 04:33 Dictated By: Du Lieberman M.D. Signed By: 01/01/24434 DD/ 2 TD/TT: Machine Maintenance Supervisor: [place] [address] XRay Report Signed Patient: MICHELLE SHARMA MR#: [id number] : 1950 Acct:[id number] Age/Sex: 73 / M ADM Date: 12/30/23 Loc: EC Attending Dr: Gomez Schneider D.P.M. Ordering Physician: Gomez Schneider D.P.M. Date of Service: 12/30/23 Procedure(s): XR ankle RT min 3V Accession Number(s): [id number] cc: Alvin Contreras; Gomez Schneider D.P.M. [place] [address] Patient Name: BANG SHARMA MRN: [id number] date: 1950 Sex: M Assigned Patient Location: EC Current Patient Location: Accession/Order Numb er: [id number] Exam Date: 12/30/2023 10:40 Report Date: 01/01/2024 04:33 At the request of: GOMEZ SCHNEIDER Procedure: XR ankle RT min 3V PROCEDURE: XR ankle RT min 3V HISTORY: RIGHT ANKLE PAIN COMPARISON: XR ankle bilateral 08/09/2020 FINDINGS: BONES:Intramedullary laura and locking screws within tibia. Marked narrowing of the lateral aspect o f ankle joint with preservation of medial joint space. Large degenerative o steophyte along the anterior margin of tibial plafond. Small corticated oss ifications distal to the medial and lateral malleolus favoring sequela of remote injuries. Degenerative changes the midfoot. Calcaneal plantar spur. SOFT TISSUES:No visi ble soft tissue swelling. EFFUSION:None visible. OTHER: Negative. X R/XR ankle RT min 3V IMPRESSION: 1. Stable surgical changes. 2. Slight progressio n of joint space narrowing of the ankle joint. Electronically authe nticated by: DU LIEBERMAN Date: 01/01/2024 04:33 Dictated By: Du Lieberman M.D. Signed By: 01/01/245 DD/ 2 TD/TT: Machine Maintenance Supervisor: Reason For Referral Reason evaluation and treat ment -- see attached order Diagnosis 1 Primary osteoarthrit is, right ankle and foot (M19.071) Referral Organization [facility]) Referring Provider First Name Gomez Referring Provider Last Name [facility] Referring Provider Speciality Podiatry Referred Provider [facility], Physical Therap y Referred Provider Specialty Physical Med icine and Rehabilitation Referral Priority Routine Reason Referal to neurology Diagnosis 1 Primary osteoarthrit is, right ankle and foot (M19.071) Diagnosis 2 Right ankle pain (M2 5.571) Referral Organization [facility] (PODI[facility]) Referring Provider First Name Gomez Referring Provider Last Name [facility] Referring Provider Speciality Podiatry Referred Provider Specialty Neurology Referral Priority Routine Reason Physical Therapy ref erral Diagnosis 1 Primary osteoarthrit is, right ankle and foot (M19.071) Referral Organization [facility]) Referring Provider First Name Gomez Referring Provider Last Name [facility] Referring Provider Speciality Podiatry Referred Provider Specialty Physical The rapist Referral Priority Routine Medications Medication SIG (Take, Route, Frequency, Duration) Notes Start Date End Date Status dexAMETHasone Sod Phos (PF) 10 MG/ML as directed Injection for 30 days 02/10/2024 Not-Taking amLODIPine Besylate 10 MG Oral for 90 Days Active Meloxicam 15 MG TAKE 1 TABLET BY KARLENE TH EVERY DAY FOR 30 DAYS for 30 Active dexAMETHasone Sod Phos (PF) 10 MG/ML as directed Injection for 30 days 02/10/2024 Not-Taking dexAMETHasone Sod Phos (PF) 10 MG/ML as directed Injection 1 for 30 days 02/10/2024 Not-Taking Flecainide Acetate 100 MG Oral for 90 Days Active dexAMETHasone Sodium Phosphate 4 MG/ML 1.5ml-2.5ml topically up to 3 times weekly at physical therapy for 30 days 12/30/2023 Not-Taking Losartan Potassium-HCTZ 100-25 MG Oral for 90 Days Active Multi Complete - as directed Orally Active Baclofen 10 MG TAKE 1 TABLET BY KARLENE TH AT BEDTIME EVERY NIGHT Oral for 90 Days Unknown Immunizations Vaccine Route Administration Date Status Comme nts Arexvy Unknown 03/03/2023 Administered Flu, Fluad (41250) 65 yrs+, single-dose syringe (3143-5535) Unknown 12/16/2022 Administered Pneumococcal (Pneumovax 23) Unknown 01/18/2015 Administ ered SARS-COV-2 (COVID 19) bivale nt 30 mcg/0.3 ml dose Unknown 11/28/2022 Administered ZOSTER (SHINGLES) VACCINE (HZV) Unknown 11/13/2022 Admi nistered Social History Tobacco Use: Social History Observation Description Date Details (start date - stop date) Never Smoker NA - NA Tobacco Use/Smoking Question Answer Notes Patient is a nonsmoker Tobacco Control (Standard) Question Answer Notes Tobacco use: Nonsmoker Problems Problem Type SNOMED Code ICD Code Onset Dates Problem Status W/U Status Risk Notes Problem 78972679 Chronic obstructive pulmonary disease, unspecified (J44.9) Active confirmed Problem 883622450 Obesity, unspecified (E66.9) Active confirmed Problem 6405793856549325 Primary osteoarthritis , right ankle and foot (M19.071) Active confirmed Problem Obstructive sleep apnea syndrome (25446590) REMY (obstructive sleep apnea) (G47.33) Active confirmed Problem Arthralgia of the ankle and/or foot (058224536) Right ankle pain (M25.571) Active confirmed Problem Atrial fibrillation (15010722) PAF (paroxysmal atrial fibrillation) (I48.0) Active confirmed Problem History of asbestos exposure (990831847) History of asbestos exposure (Z77.090) Active confirmed Problem Body mass index 30.00 to 34.99 (709792756233779) Body mass index [BMI] 34.0-34.9, adult (Z68.34) Active confirmed Problem History of COVID-19 (915860979505028253) History of COVID-19 (Z86.16) Active confirmed Vital Signs Heart Rate 71 /min 04/05/2024 Temperature 96.9 degrees Fahrenheit 04/05/2024 Respiratory Rate 18 /min 12/30/2023 Oximetry 99 % 04/05/2024 Height 75 in 04/05/2024 Weight 260 lbs 02/10/2024 BMI 32.49 kg/m2 02/10/2024 Encounters Encounter Location Date Provider Diagnosis [facility] [address] [place] [address] [place] [address] 12/30/2023 Peter Debbydorys Primary osteoarthritis, right ankle and foot M19.071 ; Other specified joint disorders, right ankle and foot M25.871 and Right ankle pain M25.571 [facility] (POD[facility]) [address] [place] [address] [place] [address] 02/10/2024 Peter Debbyander Primary osteoarthritis, right ankle and foot M19.071 and Other specified joint disorders, right ankle and foot M25.871 [facility] ([facility]OD[facility]) [address] [place] [address] [place] [address] 04/05/2024 Peter Debbyander Primary osteoarthritis, right ankle and foot M19.071 ; Posterior tibial tendinitis, right leg M76.821 and Ingrowing nail L60.0 [facility] [place] [address] [place] [address] 11/26/2023 Davin Reyes [facility] [address] [place] [address] [place] [address] 12/30/2023 Peter Debbyander Primary osteoarthritis, right ankle and foot M19.071 [facility] [address] [place] [address] [place] [address] 02/10/2024 Gomez Schneider [facility] [address] [place] [address] [place] [address] 02/10/2024 Gomez Schneider [facility] [address] [place] [address] [place] [address] 02/10/2024 [facility] [place] [address] [place] [address] 11/15/2024 Davin Reyes Assessments Encounter Date Diagnosis (ICD Code) Assessment Notes Treatment Notes Treatment Clinical Notes Section Notes 12/30/2023 Primary osteoarthritis , right ankle and foot (ICD-10 - M19.071) Patient presents for follow-up of ongoing ankle pain which is worsened over the last few weeks. He has tried his custom brace in the house which does seem to help however he has difficulty with shoes therefore recommend ASO ankle bracing. I prescribed meloxicam which she may take as needed and discussed the use of OTC Voltaren topical. I also prescribed physical therapy with the use of iontophoresis. Patient will follow-up in 6 weeks no new x-rays are needed 12/30/2023 Other specified joint disorders, right ankle and foot (ICD-10 - M25.871) 02/10/2024 Primary osteoarthritis , right ankle and foot (ICD-10 - M19.071) Patient follows up for right ankle arthritis and instability. He is doing well with physical therapy and ASO ankle bracing. He believes he is continuing to improve with therapy and would like to continue so a new prescription was provided today. He also has related to progressive numbness in his right lower extremity and requested referral to neurology which was provided today.Follow-up in 6 to 8 weeks or as needed. 02/10/2024 Other specified joint disorders, right ankle and foot (ICD-10 - M25.871) 04/05/2024 Primary osteoarthritis , right ankle and [...] tibial tendinitis, right leg (ICD-10 - M76.821) 12/30/2023 Primary osteoarthritis , right ankle and foot (ICD-10 - M19.071) 04/05/2024 Ingrowing nail (ICD-10 - L60.0) The toenail was debrided sharply without incident into patient's satisfaction. Dried subungual hematoma was evacuated. No signs of infection. 12/30/2023 Right ankle pain (ICD-10 - M25.571) Plan Of Treatment Pending Test Test Name Order Date XR Ankle RT (3 views) * (161) 12/30/2023 XR ankle RT min 3V 01/01/2024 Insurance Providers Payer Name Payer Address Payer Phone Subscriber Number Group Number Insured Name Patient Relationship to Insured Coverage Start Date Coverage End Date MEDICARE [employer] [address] [address] [place], [place] [id number] Bang Sharma Self - patient is the insured 5 [employer] [address] [address] [place], [place] [id number] [phone] [id number] Bang Sharma Self - patient is the insured 5 Medical (General) History Medical History History ICD Code REMY (obstructive sleep apnea) G47.33 HLD (hyperlipidemia) E78.5 PAF (paroxysmal atrial fibrillation) I48 .0 LVH (left ventricular hypertrophy) I51.7 HTN (hypertension) I10 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
--- OUTSIDE RECORDS SUMMARY | 2024-11-22 13:21 | XMS_ITS | Encounter Summary ---
Author Organization [facility] Address [address] [place] [id number] Care Team Providers Care Counselor Manager Name Role Phone Alvin Contreras DO Primary Care Provider Source Comments In the event this information is protected by the Federal Confidentiality of Alcohol and Drug AbusePatient Records regulations: The Federal rules restrict any use of the information to criminally investigate or prosecute any alcohol or drug abuse patient.[facility] Encounter Details Date Type Department Care Team (Late st Contact Info) Description 12/04/2022 Patient Msg Orth and Rheum Schroeder [address] [place] [id number] Provider, [facility] Appointment Rescheduled Social History Tobacco Use Types Packs/Day Years Used Date Smoking Tobacco: Never Smokeless Tobacco: Never PHQ-2 Answer Date Recorded PHQ-2 score 0 06/30/2019 Area Deprivation Index Answer Date Mumtaz rded National Score (1-100), lower number is lower ri sk 60 05/18/2022 State Score (1-10), lower number is lower risk N ot on file 05/18/2022 Data from: https://www.neighborhoodatlas.medicine.[facility].edu/. Last address used for calculation [address] [place] [address] 05/18/2022 Sex and Gender Information Value Date Recorded [...] Contact Info) Description 11/29/2024 2:20 PM EDT [facility] Endocrine Surgery [address], [place] [id number] Geneva Samayoa MD [address] [place] [address] post op 02/28/2025 2:20 PM EST Office Visit Endocrinology [address] [facility] [place], [place] [id number] Gaudencio Lewis MD [address] [place] [address] [place] [address] Return in about 6 months (around 02/15/2025). documented as of this encounter Visit Diagnoses Not on filedocumented in this encounter Care Teams Counselor Manager Relationship Specialty Start Date End Date Alvin Contreras DO [address] [place] [address] PCP - General Internal Medicine 06/19/17 documented as of this encounter
[2024-11-22 13:45] LABS: Calcium 9.0 mg/dL (8.5-10.1)
== END 2024-11-22 13:13 | disposition home or self-care (01) ==
LOC: LAB 13:18
PROVIDERS: PCP Internal Medicine
DX: E21.0 Primary hyperparathyroidism (principal)
CPT/HCPCS: 36415; 82310; 83970

== ENCOUNTER 2024-12-03 16:16 | Emergency (ER) | payer MEDICARE, OTHER, SELFPAY ==
[2024-12-03] VITALS (20 sets, daily range): BP systolic 98–125; BP diastolic 49–69; PULSE 74–75; TEMP 37.4–38.3; O2SAT 93–97; BMI 33.4
--- OUTSIDE RECORDS SUMMARY | 2024-12-03 16:23 | XMS_ITS | CCD ---
Author Organization [facility] Care Team Providers Care Resource Teacher Name Role Phone PHYSICIAN, DEFAULT Unavailable Unavailable PHYSICIAN, DEFAULT Unavailable ALVIN White Unavailable Alvin White DO Primary Care Provider DR ALVIN LO Primary Care Unavailable HANNA GUPTA Admitting Unavailable HANNA GUPTA Attending Unavailable ZIEBADOLPH, DR TIFFANY Elizondo Consulting Unavailable HANNA GUPTA Consulting Unavailable DREA LINO Admitting Unavailable DREA LINO Attending Unavailable TERESITA, DR QUINTEROS Primary Care Unavailable DREA LINO Consulting Unavailable TERESITA, DR QUINTEROS Admitting Unavailable TERESITA, DR QUINTEROS Attending Unavailable TERESITA, DR QUINTEROS Primary Care Unavailable TERESITA, DR QUINTEROS Consulting Alvin White DO Primary Care Provider HARESH PINEDA Referring Unavailable HARESH PINEDA Attending Unavailable ALVIN LO Primary Care Unavailable Alvin Lo Unavailable Alvin Lo MD Primary Care Provider Nhan PhD, Bhavik Unavailable Amanda Mustafa DO Unavailable ARLENE DEGROOT Attending Unavailable AMANDA MUSTAFA Attending Unavailable REINA JOYA Referring Unavailable AMANDA MUSTAFA Attending Unavailable AMANDA MUSTAFA Attending Unavailable Alvin Lo DO Primary Care Provider ALPESH DAVIS Referring Unavailable SUSANALPESH Referring Unavailable SUSANALPESH Referring Unavailable TEE NAGY Referring Unavailable SUSANALPESH Vazquez Referring Unavailable SUSANALPESH Vazquez Referring Unavailable ALPESH DAVIS Attending Unavailable DREA LINO Attending Unavailable ALPESH DAVIS Attending Unavailable RAFAEL BYRNE Attending Unavailable ALPESH DAVIS Referring Unavailable SUSANALPESH Referring Unavailable ALPESH DAVIS Admitting Unavailable ALPESH DAVIS Attending Unavailable ALPESH DAVIS Referring Unavailable BALL, ALVIN E Primary Care Unavailable BUTLER, GENEVAJuanjose FRANKS ANDREW Attending Unavailable BUTLER, GENEVA MANDUJANOE Admitting Unavailable BUTLER, GENEVAJuanjose FRANKS ANDREW Referring Unavailable BALL, ALVIN E Primary Care Unavailable BUTLER, GENEVA FRANKS ANDREW Referring Unavailable BALL, ALVNI E Primary Care Unavailable BALL, ALVIN E Primary Care Unavailable BALL, ALVIN E Primary Care Unavailable BUTLER, GENEVA FRANKS ANDREW Attending Unavailable DONALD, HERBER MALENA Referring Unavailable BALL, ALVIN E Primary Care Unavailable DONALD, HERBER MALENA Referring Unavailable BALL, ALVIN E Primary Care Unavailable DONALD, HERBER MALENA Attending Unavailable BALL, ALVIN E Primary Care Unavailable BUTLER, GENEVAJuanjose FRANKS ANDREW Attending Unavailable BALL, ALVIN E Primary Care Unavailable BUTLER, GENEVAJuanjose FRANKS ANDREW Referring Unavailable BALL, ALVIN E Primary Care Unavailable BUTLER, GENEVA FRANKS ANDREW Referring Unavailable BALL, ALVNI E Primary Care Unavailable Allergies Allergy Classification Reported Allergen(s) Allergy Type Date of Onset Reaction(s) Facility (2 sources) meperidine Drug Allergy 4 [facility] (10 sources) Penicillins; Translations: [PENICILLINS] Drug allergy (disorder) 2 AOF, Unknown Reaction [facility] (4 sources) Penicillins Drug Allergy 4 [facility] (19 sources) Insects Extract; Translations: [INSECTS EXTRACT] Drug Allergy 1 Other: See [facility] (6 sources) atorvastatin Drug Allergy 4 Unknown, Unknown Reaction [facility] (2 sources) Penicillin Drug Allergy Unknown [facility] Other (2 sources) Substance with penicillin structure and antibacterial mechanism of action (substance) Drug allergy Unknown [facility] Other (8 sources) Meperidine; Translations: [MEPERIDINE] Drug Allergy 8 [facility] (7 sources) Penicillins Drug Allergy 4 Hives, Rash, Other [facility] (12 sources) Penicillins Drug Allergy 4 [facility] (1 source) carvedilol; Translations: [CARVEDILOL] Drug Allergy 3 [facility] (1 source) Metoprolol; Translations: [METOPROLOL] Drug Allergy 3 [facility] Medications Current Medications Medication Drug Class(es) Dates Sig (Normalized) Sig (Original) acetaminophen 500 mg oral tablet (2 sources) Start: 11-15-2024 take 1 tablet by mouth every four hours as needed acetaminophen (TYLENOL) 500 mg tablet Take 1 tablet by mouth every 4 hours as needed for pain. 11/15/2024 Active amLODIPine 10 mg oral tablet (20 sources) Dihydropyridine Calcium Channel Gloria Start: 08-02-2018 take 1 tablet by mouth once daily amLODIPine (NORVASC) 10 mg tablet Take 10 mg by mouth once daily. 3 08/02/2018 Active Start: 08-02-2018 take 4 tablets by [...] Take 1,000 mg by mouth Daily Active aspirin 81 mg oral tablet (17 sources) Platelet Aggregation Inhibitor, Nonsteroidal Anti-inflammatory Drug Aspirin 81 mg tab Take 81 mg by mouth. Active End: 11-01-2024 take 1 tablet by mouth once daily aspirin 325 mg tablet Take 325 mg by mouth once daily. 11/01/2024 Discontinued Comment on above: Take 325 mg by mouth once daily. baclofen 10 mg oral tablet (8 sources) gamma-Aminobutyric Acid-ergic Agonist Start: 06-12-2024 take 1 tablet by mouth once daily at bedtime Baclofen 10 mg tablet Active 0 .ROUTE .COMPLEX 90 June 12, 2024 9:55am TAKE 1 TABLET BY MOUTH AT BEDTIME EVERY NIGHT Start: 09-01-2023 End: 06-12-2024 take 1 tablet by mouth once daily Baclofen 10 mg tablet Discontinued MG PO Daily September 01, 2023 12:00am June 12, 2024 9:55am take 1 tablet by sudhakar th once daily at bedtime Baclofen 10 MG TAKE 1 TABLET BY MOUTH AT BEDTIME EVERY NIGHT for 90 Active calcium carbonate 500 mg chewable tablet (2 sources) Start: 11-15-2024 take 500 mg by mouth every hour as needed calcium carbonate (TUMS) 500 mg chew Take 1 tablet by mouth every hour as needed (mouth or hand numbness or tingling). 30 tablet 11/15/2024 Active calcium carbonate 1250 mg / cholecalciferol 200 unt oral tablet (2 sources) Vitamin D Start: 11-15-2024 take 1 tablet by mouth three times daily lvqkvyb-eywwannpt-cxw benedict D3 500 mg-5 mcg (200 unit) per tablet Take 1 tablet by mouth three times a day. 90 tablet 11/15/2024 Active cholecalciferol 1.25 mg oral capsule (3 sources) Vitamin D Start: 04-11-2024 take 1 capsule by mouth every week Cholecalciferol (Vitamin D3) 1,250 mcg (50,000 unit) capsule Active 1250 MCG PO every week 09 16April 11, 2024 1:00am doxycycline hyclate 100 mg oral capsule (6 sources) Tetracycline- class Drug Start: 08-30-2024 End: 09-15-2024 take 1 capsule by mouth twice daily Doxycycline Hyclate 100 mg capsule Active 100 MG PO Twice daily September 15, 2024 12:10pm Start: 04-27-2024 End: 07-06-2024 take 1 capsule by mouth twice daily Doxycycline Hyclate 100 mg capsule Discontinued 100 MG PO Twice daily 31 10April 27, 2024 1:00am July 06, 2024 3:01pm flecainide acetate 100 mg oral tablet (20 sources) Antiarrhythmic Start: 12-03-2023 take 50 mg by mouth every twelve hours Flecainide Active 50 MG PO Every 12 hours December 03, 2023 11:02am Start: 10-08-2023 Flecainide 100 mg tablet Active 50 MG PO Every 12 hours December 03, 2023 11:02am Start: 10-08-2021 take 1 tablet by sudhakar th twice daily flecainide (TAMBOCOR) 100 mg tablet Take 100 mg by mouth two times a day. 10/08/2021 Active Start: 10-08-2021 End: 12-03-2023 flecainide (TAMBOCOR) 100 mg tablet 10/08/2021 Active hydroCHLOROthiazide 25 mg / losartan potassium 100 mg oral tablet (20 sources) Thiazide Diuretic, Angiotensin 2 Receptor Gloria Start: 03-20-2017 End: 04-08-2024 take 1 tablet by mouth once daily losartan-hydrochlorothiazide (HYZAAR) 100-25 mg per tablet Indications: Neoplasm of unspecified behavior of bone, soft tissue, and skin Take 1 tablet by mouth once daily. 03/20/2017 Active Comment on above: Take 1 tablet by sudhakar th once daily. losartan potassium 100 mg oral tablet (6 sources) Angiotensin 2 Receptor Gloria Start: 04-08-2024 End: 04-11-2024 take 1 tablet by mouth once daily Losartan 100 mg tablet Active 100 MG PO Daily 90 90 April 11, 2024 4:47pm Losartan Potassium-HCTZ 100-25MG (2 sources) Start: 04-04-2022 Losartan Potassium-HCTZ 100-25MG Losartan Potassium-HCTZ( 100-25MG Oral ) Active -Hx Entry Oral *Pick strength-form from [employer] for eRX* Mar, Active magnesium citrate 58.2 mg/ml oral solution (7 sources) magnesium citrat e solution Take by mouth Active magnesium gluconate 550 mg oral tablet (16 sources) Magnesium 30 mg tablet Take 500 mg by mouth once daily. Active Comment on above: Take 500 mg by mouth once daily. meloxicam 15 mg oral tablet (18 sources) Nonsteroidal Anti-inflammat ory Drug Start: 03-11-2024 take 1 tablet by mouth once daily Meloxicam 15 mg tablet Active 15 MG PO Daily March 11, 2024 1:00am Multivitamin With Iron (1 source) Start: 09-01-2023 take 1 tablet by mouth once daily Multivitamin With Iron Active 1 TAB PO Daily September 01, 2023 12:00am Multivitamin With Iron tablet (3 sources) Start: 09-01-2023 take 1 tablet by mouth once daily Multivitamin With Iron tablet Active 1 TAB PO Daily September 01, 2023 12:00am Start: 09-01-2023 take 1 tablet by sudhakar th once daily Multivitamin With Iron tablet Active 1 TAB PO Daily August 31, 2023 11:00pm Potassium gluconate (7 sources) POTASSIUM GLUCON ATE PO Take by mouth Active ubidecarenone 100 mg oral tablet (7 sources) take 10 tablets by m outh once daily Coenzyme Q10 100 MG tablet Take 100 mg by mouth Daily Active Completed/Discontinued Medications Medication Drug Class(es) Dates Sig (Normalized) Sig (Original) amiodarone hydrochloride 100 mg oral tablet (12 sources) Antiarrhythmic End: 11-01-2024 amiodarone (PACERONE) 100 mg tablet Indications: Neoplasm of unspecified behavior of bone, soft tissue, and skin Take 100 mg by mouth once daily. Taking 200 mg's every other day and taking 100mg's every other day. 11/01/2024 Discontinued Comment on above: Take 100 mg by mouth once daily. Taking 200 mg's every other day and taking 100mg's every other day. 24 hr metoprolol succinate 25 mg extended release oral tablet (11 sources) beta-Adrenergic Gloria Start: 08-23-2021 End: 11-01-2024 metoprolol succinate ER (TOPROL XL) 25 mg 24 hr tablet every 24 hours. 08/23/2021 11/01/2024 Discontinued Comment on above: q 24 HR. Potassium (12 sources) End: 11-01-2024 take 300 mg by mouth once daily potassium (POTASSIMIN ORAL) Take 300 mg by mouth once daily. 11/01/2024 Discontinued take 300 mg by mouth once daily potassium (POTASSIMIN ORAL) Take 300 mg by mouth once daily. Active take 300 mg by mouth once daily potassium (POTASSIMIN ORAL) Take 300 mg by mouth once daily. 0 Active Comment on above: Take 300 mg by mouth once daily. 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, unspecified] Onset: 08-20-2017 Chronic Cardiac dysrhythmias (20 sources) Paroxysmal atrial fibrillation; Translations: [Paroxysmal atrial fibrillation] Onset: 08-24-2017 08-24-2017 Chronic Comment on above: Echo: LVEF 55%, norm al RV size/function, DOMINGO, RVSP 11/2023 Echo: LVEF 55%, norm al RV size/function, DOMINGO, RVSP 11/2023,Echo: LVEF 55%, DOMINGO, normal RV size/function, RVSP 08/2024 CHADs VASc - 2,Echo: LVEF 55%, normal RV size/function, DOMINGO, RVSP 11/2023,Echo: LVEF 55%, DOMINGO, normal RV size/function, RVSP 54 08/2024 Deficiency and other anemia (2 sources) Anemia, unspecified; Translations: [Anemia, unspecified] Episodic Deficiency and other anemia (1 source) Anemia; Translations: [Anemia, unspecified] 08-30-2023 Episodic Disorders of lipid metabolism (16 sources) Familial hypercholesterolemia ; Translations: [Pure hypercholesterolemia ] Onset: 02-07-2022 Chronic Essential hypertension (20 sources) Essential hypertension; Translations: [Essential (primary) hypertension] [...] Asthenia; Translations: [Weakness] 02-22-2024 Episodic Nutritional deficiencies (3 sources) Vitamin D deficiency; Translations: [Vitamin D deficiency, unspecified] 04-08-2024 Chronic Osteoarthritis (2 sources) Localized, primary osteoarthritis of the shoulder region; Translations: [Primary osteoarthritis, left shoulder] Chronic Other and ill-defined heart disease (2 sources) Cardiomegaly; Translations: [Cardiomegaly] Onset: 07-08-2024 Chronic Other circulatory disease (1 source) Pulmonary venous congestion; Translations: [Other specified symptoms and signs involving the circulatory and respiratory systems] 08-30-2024 Episodic Other connective tissue disease (1 source) Swelling of right lower limb; Translations: [Other specified soft tissue disorders] 08-30-2024 Episodic Other connective tissue disease (2 sources) Other specified soft tissue disorders; Translations: [Swelling of limb] 08-30-2024 Episodic Other diseases of kidney and ureters (3 sources) Hydronephrosis; Translations: [Unspecified hydronephrosis] 03-23-2024 Episodic Other endocrine disorders (2 sources) Adrenal mass; Translations: [Other specified disorders of adrenal gland] Chronic Other endocrine disorders (6 sources) Primary hyperparathyroidism; Translations: [Primary hyperparathyroidism] 08-16-2024 Chronic Other endocrine disorders (6 sources) Hyperparathyroidism; Translations: [Hyperparathyroidism , unspecified] 08-17-2024 Chronic Other endocrine disorders (4 sources) Primary hyperparathyroidism; Translations: [Primary hyperparathyroidism] Onset: 08-16-2024 08-30-2024 Chronic Other endocrine disorders (2 sources) Hyperparathyroidism, unspecified; Translations: [Hyperparathyroidism (HCC)] Onset: 11-01-2024 Chronic Other eye disorders (1 source) Chalazion of right upper eyelid; Translations: [Chalazion right upper eyelid] 09-01-2023 Episodic Other nervous system disorders (5 sources) Idiopathic peripheral neuropathy; Translations: [Hereditary and idiopathic neuropathy, unspecified] 02-22-2024 Chronic Other nervous system disorders (4 sources) Common peroneal neuropathy; Translations: [Lesion of sciatic nerve, right lower limb] 02-22-2024 Chronic Other nervous system disorders (4 sources) Numbness and tingling sensation of skin; Translations: [Anesthesia of skin] 02-22-2024 Episodic Other nutritional; endocrine; and metabolic disorders (6 sources) Obesity; Translations: [Other obesity due to excess calories] Onset: 08-24-2017 08-31-2018 Chronic Other nutritional; endocrine; and metabolic disorders (15 sources) Obesity caused by energy imbalance; Translations: [Other obesity due to excess calories] Onset: 08-24-2017 08-31-2018 Chronic Other nutritional; endocrine; and metabolic disorders (5 sources) Obesity, unspecified; Translations: [Obesity, unspecified] 12-03-2023 Chronic Other nutritional; endocrine; and metabolic disorders (5 sources) Hypercalcemia; Translations: [Hypercalcemia] 03-11-2024 Chronic Other nutritional; endocrine; and metabolic disorders (2 sources) Hypercalcemia; Translations: [Hypercalcemia] Onset: 08-16-2024 03-11-2024 Chronic Other nutritional; endocrine; and metabolic disorders (1 source) Other obesity due to excess calories; Translations: [Class 1 obesity due to excess calories without serious comorbidity with body mass index (BMI) of 34.0 to 34.9 in adult] Onset: 11-01-2024 Chronic Other nutritional; endocrine; and metabolic disorders (1 source) Body mass index (BMI) 34.0-34.9, adult; Translations: [Class 1 obesity due to excess calories without serious comorbidity with body mass index (BMI) of 34.0 to 34.9 in adult] Onset: 11-01-2024 Chronic Other screening for suspected conditions (not mental disorders or infectious disease) (5 sources) Encounter for screening for malignant neoplasm of prostate; Translations: [Patient encounter status] Onset: 02-12-2022 03-10-2024 Episodic Comment on above: PSA: 1.98 - 01/2021, 2.26 - 01/2022, 1.42 - 02/2023, 1.32 - 02/2024 Other skin disorders (1 source) Skin tag; Translations: [Other hypertrophic disorders of the skin] 09-01-2023 Episodic Paralysis (16 sources) Monoplegia of lower limb; Translations: [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] Onset: 06-30-2019 06-30-2019 Chronic Phlebitis; thrombophlebitis and thromboembolism (2 sources) H/O: Deep vein thrombosis; Translations: [Personal history of other venous thrombosis and embolism] Episodic Pneumonia (except that caused by tuberculosis or sexually transmitted disease) (2 sources) Pneumonia, unspecified organism; Translations: [Pneumonia, organism unspecified] 08-30-2024 Episodic Residual codes; unclassified (20 sources) Obstructive sleep apnea syndrome; Translations: [Obstructive sleep apnea (adult) (pediatric)] Onset: 08-24-2017 08-24-2017 Chronic Residual codes; unclassified (5 sources) Obstructive sleep apnea (adult) (pediatric); Translations: [Obstructive sleep apnea (adult)(pediatric)] Onset: 08-24-2017 12-03-2023 Chronic Skin and subcutaneous tissue infections (5 sources) Cellulitis of leg, excluding foot; Translations: [Cellulitis of right lower limb] 08-28-2024 Episodic Spondylosis; intervertebral disc disorders; other back problems (2 sources) Lumbar spondylosis; Translations: [Spondylosis without myelopathy or radiculopathy, lumbar region] Chronic Unclassified (1 source) Class 1 obesity due to excess calories without serious comorbidity with body mass index (BMI) of 34.0 to 34.9 in adult; Translations: [Class 1 obesity due to excess calories without serious comorbidity with body mass index (BMI) of 34.0 to 34.9 in adult] Onset: 11-01-2024 Past or Other Problems Problem Classification Problem Date Documented Da te Episodic/Chronic Acquired foot deformities (16 sources) Right foot drop; Translations: [Foot drop, right foot] Onset: 06-30-2019 06-30-2019 Episodic Cardiac dysrhythmias (3 sources) Palpitations; Translations: [PALPITATIONS] Onset: 06-12-2022 Episodic Other aftercare (1 source) Other shelter (current) drug therapy; Translations: [[employer] CURRENT DRUG THERAPY] Onset: 02-12-2022 Episodic Other bone disease and musculoskeletal deformities (16 sources) Lesion of right thigh bone; Translations: [Disorder of bone, unspecified] Onset: 08-27-2017 08-27-2017 Episodic Other connective tissue disease (4 sources) Pain in left forearm; Translations: [PAIN IN LEFT FOREARM] Onset: 10-10-2021 Episodic Other injuries and conditions due to external causes (1 source) History of falling; Translations: [HISTORY OF FALLING] Onset: 10-11-2021 Episodic Other nervous system disorders (16 sources) Abnormal gait; Translations: [Unspecified abnormalities of gait and mobility] Onset: 06-30-2019 06-30-2019 Episodic Other nervous system disorders (16 sources) Skin sensation disturbance; Translations: [Unspecified disturbances of skin sensation] Onset: 06-30-2019 06-30-2019 Episodic Other non-traumatic joint disorders (17 sources) Chronic ankle pain; Translations: [Pain in right ankle and joints of right foot] Onset: 08-31-2018 08-31-2018 Episodic Results Test Name Value Interpretation Reference Range [facility] ([id number]) 1950 M Date Time Provider Department 11/23/24 GENEVA BUTLER During your visit today, we recorded the following information about you: Allergies As of Date: 11/23/2024 Noted Allergy Reaction PENICILLINS 04/07/2014 4 - Hives INSECTS EXTRACT 10/31/2020 14 - Other: See Comments Comments: Insect protein - eyes swell and blistering Date Reviewed: 11/14/2024 Reviewed by: Theresa Bynum, RN - Fully Assessed Reason for Visit: Outside Lab Results [753] Prescriptions as of 11/23/2024 - acetaminophen (TYLENOL) 500 mg tablet Take 1 tablet by mouth every 4 hours as needed for pain. - calcium carbonate (TUMS) 500 mg chew Take 1 tablet by mouth every hour as needed (mouth or hand numbness or tingling). - hgsevif-uqqoedpuc-lcfom in D3 500 mg-5 mcg (200 unit) per tablet Take 1 tablet by mouth three times a day. - Aspirin 81 mg tab Take 81 mg by mouth. - meloxicam (MOBIC) 15 mg tablet Take 15 mg by mouth once daily. - flecainide (TAMBOCOR) 100 mg tablet Take 100 mg by mouth two times a day. - Magnesium 30 mg tablet Take 500 mg by mouth once daily. - amLODIPine (NORVASC) 10 mg tablet Take 10 mg by mouth once daily. - losartan-hydrochlorothi azide (HYZAAR) 100-25 mg per tablet Take 1 tablet by mouth once daily. 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 Butler on 11/14/24. Reminded of post-op follow-up and instruction was given to have labs drawn prior to the appointment. Pt to call for questions. Lois Wise RN Allergies As of Date: 11/18/2024 Noted Allergy Reaction PENICILLINS 04/07/2014 4 - Hives INSECTS EXTRACT 10/31/2020 14 - Other: See Comments Comments: Insect protein - eyes swell and blistering Date Reviewed: 11/14/2024 Reviewed by: Theresa Bynum, TIRSO - Fully Assessed Reason for Visit: Post Op [174] Prescriptions as of 11/18/2024 - acetaminophen (TYLENOL) 500 mg tablet Take 1 tablet by mouth every 4 hours as needed for pain. - calcium carbonate (TUMS) 500 mg chew Take 1 tablet by mouth every hour as needed (mouth or hand numbness or tingling). - kimfdin-ugmrnzffm-hbcda in D3 500 mg-5 mcg (200 unit) per tablet Take 1 tablet by mouth three times a day. - Aspirin 81 mg tab Take 81 mg by mouth. - meloxicam (MOBIC) 15 mg tablet Take 15 mg by mouth once daily. - flecainide (TAMBOCOR) 100 mg tablet Take 100 mg by mouth two times a day. - Magnesium 30 mg tablet Take 500 mg by mouth once daily. - amLODIPine (NORVASC) 10 mg tablet Take 10 mg by mouth once daily. - losartan-hydrochlorothi azide (HYZAAR) 100-25 mg per tablet Take 1 tablet by mouth once daily. 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*06/30/2019 Gait abnormality [R26.9] 06/30/2019 Disturbance of skin sensation [R20.9] 06/30/2019 Encounter Status:Closed by LOIS WISE on 11/18/24 Normal [facility] Calcium SerPl-mCncon 07-29-2 025 Calcium [Mass/Vol] 9.2 mg/dL Normal 8.5-10.2 [facility] Comment on above: Order Comment: Speci men Type: BLOOD SPECIMEN Ordering Facility: [facility] Address: [address] [place] [address] Performed By: #### 1 [id number] #### [facility] CLIA [id number] [place] [address] [place] PTH-Intact SerPl-mCncon 07- Parathyrin.intact [Mass/Vol] 16 pg/mL Normal 15-65 [facility] Comment on above: Order Comment: Speci men Type: BLOOD SPECIMEN [facility] [facility] Address: [facility][note 3] [place] [address] Performed By: #### 2 731-8 #### [facility] CLIA [id number] [address] [place] [place] [address] OF [facility] ANES POSTPROC EVALon 025 ANES POSTPROC EVAL HNO ID: [id number] Author: SONG JORDAN III, MD Service: Anesthesiology Author Type: Anesthesiologist Type: Anesthesia Postprocedure Evaluation Filed: 11/14/2024 12:51 Note Text: POST ANESTHESIA EVALUATION NOTE : 1950 Procedure Summary Date: 11/14/24 Room / Location: [place] [address] / OR Anesthesia Start: 722 Anesthesia Stop: 821 Procedure: PARATHYROIDECTOMY (Bilateral: Thyroid) Diagnosis: Hyperparathyroidism (HCC) (Hyperparathyroidism (HCC) [E21.3]) Surgeons: Geneva Butler MD Responsible Provider: Song Jordan III, MD Anesthesia Type: general ASA Status: 2 Anesthesia Type: general Airway Type: ETT Last Vitals Vitals Value Taken Time BP 141/83 11/14/24 0938 Temp 36.3 ?C (97.3 ?F) 11/14/24 0938 Pulse 59 11/14/24 0938 Resp [...] PACU/ICU/floor team. Anesthesia Observations No Documentation SIGNATURE: Song Jordan MD PATIENT NAME: Bang Sharma DATE: November 14, 2024 TIME: 12:50 PM CSN: [id number] [facility] ANES PRE-OPon 11-14-2024 ANES PRE-OP HNO ID: [id number] Author: SONG JORDAN III, MD Service: Anesthesiology Author Type: Anesthesiologist Type: Anesthesia Preprocedure Evaluation Filed: 11/14/2024 07:04 Note Text: ANESTHESIOLOGY DAY OF SURGERY NOTE : 1950 Procedure Information Date/Time: 11/14/24729 Procedure: PARATHYROIDECTOMY (Bilateral: Thyroid) Location: MM OR05 / MM OR Surgeons: Geneva Butler MD Estimated body mass index is 34.02 kg/m? as calculated from the following: Height as [...] no. Thick neck: no Ramírez present: no Microretrognathia/Micro nagthia/Recessed Chin: No DENTAL Dental findings: teeth intact. Additional exam findings: yes. CARDIOVASCULAR Normal cardiovascular observations. PULMONARY Normal pulmonary observations. II - ANESTHESIA PLAN ASA Score: 2 Anesthetic Plan: general Airway type: ETT The patient is not a current smoker. NPO Status: adequate Beta Gloria Administration of chronic beta gloria medication not planned. Monitoring Plan Monitoring plan: standard ASA. Post Procedure Analgesic Plan Postoperative analgesic plan: parenteral or oral opioids. Informed Consent Anesthetic risks, benefits, alternatives, personnel and consent discussed: yes. Patient / Responsible Green Party agrees to proceed: yes Patient / Surrogate agrees to blood products: blood products not planned DNR status not reviewed with patient and/or family prior to surgery. Significant changes in the patient condition since the History and Physical, not otherwise documented in primary service progress note: no. Potential Anesthesia issues that may suggest increased risk of complications or contraindication to planned procedure: none. Vitals Value Taken Time BP 137/88 11/14/2445 Pulse 58 11/14/24 0645 Resp 20 11/14/24 0645 Temp 36.6 ?C (97.9 ?F) 11/14/24 0645 SpO2 98 % 11/14/24644 Facility-Administered Medications as of 11/14/2024 Medication Dose Route Frequency - lidocaine (PF) 10 mg/mL (1 %) 1-2 mg injection (XYLOCAINE) 0.1-0.2 mL INTRADERMAL PRN - NaCl 0.9% iv infusion 75 mL/hr INTRAVENOUS CONTINUOUS - acetaminophen 1,000 mg tab(s) (TYLENOL) 1,000 mg ORAL Pre-Op Once Outpatient Medications as of 11/14/2024 Medication Sig - meloxicam (MOBIC) 15 mg tablet Take 15 mg by mouth once daily. - flecainide (TAMBOCOR) 100 mg tablet Take 100 mg by mouth two times a day. - Magnesium 30 mg tablet Take 500 mg by mouth once daily. - losartan-hydrochlorothi azide (HYZAAR) 100-25 mg per tablet Take 1 tablet by mouth once daily. - amLODIPine (NORVASC) 10 mg tablet Take 10 mg by mouth once daily. I have interviewed and examined the patient. I have reviewed the medical record and/or the pre-anesthesia evaluation, pertinent labs, and test results. This contains updated information obtained within 48 hours of Surgery/Procedure. SIGNATURE: Song Jordan MD PATIENT NAME: Bang Sharma DATE: November 14, 2024 TIME: 7:03 AM CSN: [id number] [facility] BRIEF OP NOTon 11-14-2024 BRIEF OP NOT HNO ID: [id number] Author: TIFFANY WESTBROOK MD Service: Endocrine Surgery Author Type: Physician Type: Brief Op Note Filed: 11/14/2024 08:20 Note Text: Brief Operative Note Patient Name: Bang Sharma LOG ID: [id number] Surgery/Procedure Date: 11/14/2024 Surgeon(s)/Proceduralis t(s) and Terminal Makeup Operator(s): Surgeons and Role: * Geneva Butler MD - Primary * Tiffany Westbrook MD - Resident - Assisting Procedure(s): Parathyroidectomy [...] Pre PTH Blood Blood INTRAOPERATIVE PTH Geneva Butler MD 11/14/2024 7:49 AM 2 : Post PTH Blood Blood INTRAOPERATIVE PTH Geneva Butler MD 11/14/2024 8:10 AM A : right upper [id number] Tissue Parathyroid Gland, Right SURGICAL PATHOLOGY Geneva Butler MD 11/14/2024 7:55 AM B : Left upper 12x9x3 Tissue Parathyroid Gland, Left SURGICAL PATHOLOGY Geneva Butler MD 11/14/2024 8:04 AM C : right upper [id number] Tissue Parathyroid Gland, Right SURGICAL PATHOLOGY Geneva Butler MD 11/14/2024 8:02 AM Implants: * No implants in log * Drains: none Wound Classification: Class 1, operative wound clean, non-traumatic, with no inflammation encountered, no break in technique, gastrointestinal and genitor-urinary tracts not entered Pre-Op/Pre-Procedure Diagnosis: Primary hyperparathyroidism Post-Op/Post-Procedure Diagnosis: same Post-Op Plan: Recover in PACU. SIGNATURE: Tiffany Westbrook MD DATE: 11/14/24 TIME: 8:19 AM [facility] ECG COMPLETEon 11-14-2024 ECG COMPLETE Ventricular Rate : 6 4 BPM Atrial Rate : 64 BPM P-R Interval : 164 ms QRS Duration : 192 ms Q-T Interval : 488 ms QTC Calculation(Bazett) : 503 ms Calculated P Eunice : 73 degrees Calculated R Eunice : -76 degrees Calculated T Eunice : 19 degrees Normal sinus rhythm Right bundle branch block Left anterior fascicular block Bifascicular block Septal infarct , age undetermined Abnormal ECG No previous ECGs available Confirmed by KEON MAGAÑA MD ([id number]) on 11/14/2024 12:20:23 PM NAME : BANG SHARMA PID : [id number] : 1950 Gender : Male Race : ORD : [id number] Procedure Date : Nov 14 2024 11:35:23 Edit Date : Nov 14 2024 12:20:28 Diagnosis: Normal sinus rhythm Right bundle branch block Left anterior fascicular block Bifascicular block Septal infarct , age undetermined Abnormal ECG No previous ECGs available Confirmed by KEON MAGAÑA MD ([id number]) on 11/14/2024 12:20:23 PM Test Reason : Post-OP Location : 1 : [place] [address] Overread By : KEON MAGAÑA MD Edited By : KEON MAGAÑA MD Referred By : , Acquired by : DUONG KUMAR [facility] INTRAOPERATIVE PTHon 025 INTRAOPERATIVE PTH 73 pg/mL High [facility] Comment on above: Order Comment: Speci men Type: BLOOD SPECIMEN Ordering Facility: [facility] Address: [address] [place] [address] Performed By: #### R IPTH #### [facility] CLIA [id number] [address] [place] [address] [place] INTRAOPERATIVE PTH 405 pg/mL [facility] Comment on above: Order Comment: Speci men Type: BLOOD SPECIMEN Ordering Facility: [facility] Address: [address] [place] [address] Performed By: #### R IPTH #### [facility] CLIA [id number] [address] [place] [address] [place] OPERATIVE NOon 11-14-2024 OPERATIVE NO HNO ID: [id number] Author: GENEVA BUTLER MD Service: Endocrine Surgery Author Type: Physician Type: Operative Report Filed: 11/15/2024 06:54 Note Text: [facility] - Operative Report BANG SHARMA : 1950 AGE: 74. SEX: M PATIENT TYPE: A HOSP SVC: ENDOCRINE SCHNEIDER LOCATION: [facility] ATTENDING PHYSICIAN: Geneva Butler MD CSN NUMBER: [id number] DATE OF SURGERY/PROCEDURE: 11/14/2024 INCISION/PROCEDURE START TIME: 7:40 a.m. INCISION CLOSE/PROCEDURE END TIME: 8:16 a.m. PREOPERATIVE DIAGNOSIS: Primary hyperparathyroidism. POSTOPERATIVE DIAGNOSIS: Primary hyperparathyroidism. SURGEON: Geneva Butler MD PATTERN LEASE INSPECTOR: Tiffany Westbrook MD SURGERY/PROCEDURE: Parathyroid exploration with excision of the right upper and left upper parathyroid glands, selective venous catheterization for parathyroid hormone measurement, and intraoperative neck ultrasound. ANESTHESIA: General. OPERATIVE INDICATION: The patient is a 74-year-old male with a well-documented history of primary hyperparathyroidism. He is being taken to the operating room for a parathyroid exploration. The indications, risks, benefits, and alternatives of the above procedures were reviewed with the patient, who gave informed consent to proceed. OPERATIVE FINDINGS: Intraoperative neck ultrasound revealed a thyroid gland that was overall normal in size. Posterior to the mid aspect of [...] A 3-cm transverse incision was made low in the neck. This was carried down through the subcutaneous tissue and platysma with electrocautery. Inferior and superior subplatysmal flaps were raised. The strap muscles were from one another and from the anterior surface of the [...] room, extubated, and in good condition. Dr. Butler served as primary and co-surgeon and scrubbed from skin incision to completion of skin closure. There was no qualified resident available to help with this case, and Dr. Westbrook was asked to serve as travel assistant. During the course of the dissection, the travel assistant assisted with mobilization, vascular isolation, and division. ESTIMATED BLOOD LOSS: Minimal. DRAINS: None. SPECIMENS: Sent to Pathology: 1. Right upper parathyroid gland. 2. Left upper parathyroid gland. COUNTS: Sponge and needle counts correct. COMPLICATIONS: There were no intraoperative complications. Geneva (more content not included)... [facility] Pathology biopsy report Colby (Tiss)on 11-14-2024 AP DISCLAIMER [facility] Comment on above: Order Comment: Speci men Type: TISSUE SPECIMEN Ordering Facility: [facility] Address: [address] [place] [address] Result Comment: Lindsey Farias Test (LDT) Disclaimer: Performance characteristics of immunohistochemical, immunofluorescent, and chromogenic in-situ hybridization tests have been determined by the performing laboratory within [facility]'s [facility] Pathology and Laboratory Medicine Department ([facility], [facility], [facility], [facility], [facility], [facility], or [facility]) in a manner consistent with CLIA requirements. One or more of these tests may not have been cleared or approved by the FDA. [facility] is regulated under CLIA as qualified to perform high-complexity testing. These tests are used for clinical purposes. These should not be regarded as investigational or for research. Positive and negative controls stain appropriately. Performed By: #### 6 6121-5 #### [facility] CLIA [id number] [address] [place] [address] LABORATORY CLIA [id number] [address] [place] [address] OF [place] CASE REPORT [facility] Comment on above: Order Comment: Speci men Type: TISSUE SPECIMEN Ordering Facility: [facility] Address: [address] [place] [address] Result Comment: Surg [facility] Pathology Report Case: [id number] Authorizing Provider: Geneva Butler MD Collected: 11/14/2024 07:55 AM Ordering Location: [facility] Surgery Received: 11/14/2024 08:04 AM Pathologist: Deysi Singh MD Intraop: Ella Johnson MD Specimens: A) - Parathyroid Gland, Right, right upper [id number] B) - Parathyroid Gland, Left, Left upper 12x9x3 C) - Parathyroid Gland, Right, right upper [id number] Performed By: #### 6 6121-5 #### [facility] CLIA [id number] [address] [place] [address] LABORATORY CLIA [id number] [address] [place] [address] OF [place] CLINICAL HISTORY Normal [facility] Comment on above: Order Comment: Speci men Type: TISSUE SPECIMEN Ordering Facility: [facility] Address: [address] [place] [address] Result Comment: Pre- op diagnosis: Hyperparathyroidism (HCC) [E21.3] Performed By: #### 6 6121-5 #### [facility] CLIA [id number] [address] [place] [address] [facility] CLIA [id number] [address] [place] [address] FINAL DIAGNOSIS [facility] Comment on above: Order Comment: Speci men Type: TISSUE SPECIMEN Ordering Facility: [facility] Address: [address] [place] [address] Result Comment: A, C . Right upper parathyroid, excision: - Hypercellular parathyroid. B. Left upper parathyroid, excision: - Hypercellular parathyroid. SHANA November 16, 2024 at 1104 EDT Performed By: #### 6 6121-5 #### [facility] CLIA [id number] [address] [place] [address] [facility] CLIA [id number] [address] [place] [address] FINAL PERFORMING LAB [place] Comment on above: Order Comment: Speci men Type: TISSUE SPECIMEN Ordering Facility: [facility] Address: [address] [place] [address] Result Comment: Diag nostic interpretation performed at: [facility], [address] [place] [address] CLIA# [id number] Chairman & Ceo: Herson Cuenca MD Performed By: #### 6 6121-5 #### [facility] CLIA [id number] [address] [place], [place] [address] [facility] CLIA [id number] [address] [place] [address] [place] GROSS DESCRIPTION [facility] Comment on above: Order Comment: Speci men Type: TISSUE SPECIMEN Ordering Facility: [facility] Address: [address] [place] [address] Result Comment: A. P arathyroid Gland, Right FSA1: Received fresh for frozen section is one piece of brown soft tissue weighing 0.590 grams and measuring 2.2 x 0.9 x 0.6 cm. A health and safety representative section is submitted for frozen section in FSA1. Gross examination performed at [facility], [address] [place] [address], [place] [address] CLIA# [id number] B. Parathyroid Gland, Left FSB1: Received fresh for frozen section is one piece of brown soft tissue weighing 0.245 grams and measuring 0.9 x 0.9 x 0.3 cm. The tissue is entirely submitted for frozen section in FSB1. Gross examination performed at [facility], [address] [place], [place] [address] , [place] [address] CLIA# [id number] C. Parathyroid Gland, Right Labeled: ??? Right upper 31 x 18 x 10??? Received: In formalin Size: 2.8 x 1.5 x 0.9 cm Weight: 1640 mg Cassette code: Representatively in C1 (serially section) Gross examination performed at [facility], [address] [place] [address] MSL/MADIHA 11/14/24 12:25 PM Performed By: #### 6 6121-5 #### [facility] CLIA [id number] [address] [place] [address] LABORATORY CLIA [id number] [address] [place] [address] INTRAOPERATIVE DIAGNOSIS Normal [facility] Comment on above: Order Comment: Speci men Type: TISSUE SPECIMEN Ordering Facility: [facility] Address: [address] [place] [address] Result Comment: A. P arathyroid Gland, Right FSA1: Hypercellular parathyroid tissue (Ella Johnson MD) Intraoperative diagnosis performed at [facility], [address] [place], [place] [address] [address] CLIA# [id number] B. Parathyroid Gland, Left FSB1: Hypercellular parathyroid tissue (Ella Johnson MD) Intraoperative diagnosis performed at [facility], [facility] [address], [place] [address] CLIA# [id number] Performed By: #### 6 6121-5 #### [facility] CLIA [id number] [address] [place] [address] [place] [facility] CLIA [id number] [address] [place] [id number] [place] Basic metabolic 2000 panelon 11-01-2024 Anion gap [Moles/Vol] 9 mmol/L Normal 8-15 [facility] Comment on above: Order Comment: Speci men Type: BLOOD SPECIMENOrdering Facility: [facility] Address: [address] [place] [address] Performed By: #### 2 4321-2 ####[facility] [id number] [place] [address] [place] Calcium [Mass/Vol] 11.0 mg/dL High 8.5-10.2 [facility] Comment on above: Order Comment: Speci men Type: BLOOD SPECIMENOrdering Facility: [facility] Address: [address] [place], [place] [address] Performed By: #### 2 4321-2 ####[facility] [id number] [place] [address] [place] Chloride [Moles/Vol] 105 mmol/L Normal 98-107 [facility] Comment on above: Order Comment: Speci men Type: BLOOD SPECIMENOrdering Facility: [facility] Address: [address] [place] [id number] Performed By: #### 2 4321-2 ####[facility] [id number] [place] [id number] [place] CO2 [Moles/Vol] 26 mmol/L Normal 22-30 [facility] Comment on above: Order Comment: Speci men Type: BLOOD SPECIMENOrdering Facility: [facility] Address: [address] [place], [place] [address] Performed By: #### 2 4321-2 ####[facility] [id number] [address] [address] [place] Creatinine [Mass/Vol] 0.86 mg/dL Normal 0.73-1.22 [facility] Comment on above: Order Comment: Juana ceron Type: BLOOD SPECIMENOrdering Facility: [facility] Address: [address] [place] [address] Performed By: #### 2 4321-2 ####[facility] [id number] [address] [place] [address] [place] eGFRcr SerPlBld CKD-EPI 2020 90 mL/min/1.73m??? Normal >=60 [facility] Comment on above: Order Comment: Juana ceron Type: BLOOD SPECIMENOrdering Facility: [facility] Address: [address] [place] [address] Result Comment: Lenora mated Glomerular Filtration Rate (eGFR) is calculated using the 2020 CKD-EPI creatinine equation. This equation utilizes serum creatinine, sex, and age as parameters. The creatinine assay has traceable calibration to isotope dilution-mass spectrometry. Refer to KDIGO guidelines for clinical interpretation. In patients with unstable renal function, e.g. those with acute kidney injury, the eGFR may not accurately reflect actual GFR. Performed By: #### 2 4321-2 ####[facility] [id number] [address] [address] [place] Glucose [Mass/Vol] 108 mg/dL High 74-99 [facility] Comment on above: Order Comment: Juana ceron Type: BLOOD SPECIMENOrdering Facility: [facility] Address: [address] [place], [place] [address] Result Comment: The [place] Diabetes Association (ADA) provides guidance for cutoff [...] Standards of Medical Care in Diabetes 2016, [place] [employer] Association. Diabetes Care. 2016.39(Suppl 1). Performed By: #### 2 4321-2 ####[facility] [id number] [place] [address] [place] Potassium [Moles/Vol] 4.5 mmol/L Normal 3.7-5.1 [facility] Comment on above: Order Comment: Speci men Type: BLOOD SPECIMENOrdering Facility: [facility] Address: [address] [place] [address] Performed By: #### 2 4321-2 ####[facility] [id number] [place] [address] [place] Sodium [Moles/Vol] 140 mmol/L Normal 136-144 [facility] Comment on above: Order Comment: Speci men Type: BLOOD SPECIMENOrdering Facility: [facility] Address: [address] [place] [address] Performed By: #### 2 4321-2 ####[facility] [id number] [place] [address] [place] Urea nitrogen [Mass/Vol] 18 mg/dL Normal 9-24 [facility] Comment on above: Order Comment: Speci men Type: BLOOD SPECIMENOrdering Facility: [facility] Address: [address] [place] [address] Performed By: #### 2 4321-2 ####[facility] [id number] [place] [id number] [place] CBC W Auto Differential pane l (Bld)on 11-01-2024 Basophils (Bld) [#/Vol] 0.05 10*3/uL Normal <0.11 [facility] Comment on above: Order Comment: Speci men Type: BLOOD SPECIMENOrdering Facility: [facility] Address: [address] [place] [address] Performed By: #### 5 7021-8 ####[facility] [id number] [address], [facility] [place] Basophils/100 WBC (Bld) 0.9 % Normal [facility] Comment on above: Order Comment: Speci men Type: BLOOD SPECIMENOrdering Facility: [facility] Address: [address] [place] [address] Performed By: #### 5 7021-8 ####[facility] [id number] [address], [place] [address] [place] Differential cell count method Nom (Bld) Auto Normal [facility] Comment on above: Order Comment: Speci men Type: BLOOD SPECIMENOrdering Facility: [facility] Address: [address] [place] [address] Performed By: #### 5 7021-8 ####[facility] [id number] [address], [place] [address] [place] Eosinophils (Bld) [#/Vol] 0.11 10*3/uL Normal <0.46 [facility] Comment on above: Order Comment: Speci men Type: BLOOD SPECIMENOrdering Facility: [facility] Address: [address] [place] [address] Performed By: #### 5 7021-8 ####[facility] [id number] [place] [id number] [place] Eosinophils/100 WBC (Bld) 1.9 % Normal [facility] Comment on above: Order Comment: Speci men Type: BLOOD SPECIMENOrdering Facility: [facility] Address: [address] [place] [address] Performed By: #### 5 7021-8 ####[facility] [id number] [address] [place] [address] [place] Erythrocyte distribution width (RBC) [Ratio] 13.6 % Normal 11.5-15.0 [facility] Comment on above: Order Comment: Speci men Type: BLOOD SPECIMENOrdering Facility: [facility] Address: [address] [place] [address] Performed By: #### 5 7021-8 ####[facility] [id number] [place] [address] [place] Hematocrit (Bld) [Volume fraction] 44.3 % Normal 39.0-51.0 [facility] Comment on above: Order Comment: Speci men Type: BLOOD SPECIMENOrdering Facility: [facility] Address: [address] [place] [address] Performed By: #### 5 7021-8 ####[facility] [id number] [place] [address] [place] Hemoglobin (Bld) [Mass/Vol] 14.3 g/dL Normal 13.0-17.0 [facility] Comment on above: Order Comment: Speci men Type: BLOOD SPECIMENOrdering Facility: [facility] Address: [address] [place] [address] Performed By: #### 5 7021-8 ####[facility] [id number] [place] [address] [place] Immature granulocytes (Bld) [#/Vol] 10*3/uL Normal <0.10 [facility] Comment on above: Order Comment: Speci men Type: BLOOD SPECIMENOrdering Facility: [facility] Address: [address] [place] [address] Performed By: #### 5 7021-8 ####[facility] [id number] [address] [place] Immature granulocytes/100 WBC (Bld) 0.3 % Normal [facility] Comment on above: Order Comment: Speci men Type: BLOOD SPECIMENOrdering Facility: [facility] Address: [address] [place] [address] Performed By: #### 5 7021-8 ####[facility] [id number] [place] [address] [place] Lymphocytes (Bld) [#/Vol] 1.48 10*3/uL Normal 1.00-4.00 [facility] Comment on above: Order Comment: Speci men Type: BLOOD SPECIMENOrdering Facility: [facility] Address: [address] [place] [address] Performed By: #### 5 7021-8 ####[facility] [id number] [place] [address] [place] Lymphocytes/100 WBC (Bld) 25.3 % Normal [facility] Comment on above: Order Comment: Speci men Type: BLOOD SPECIMENOrdering Facility: [facility] Address: [address] [place] [address] Performed By: #### 5 7021-8 ####[facility] [id number] [place] [address] [place] MCH (RBC) [Entitic mass] 31.2 pg Normal 26.0-34.0 [facility] Comment on above: Order Comment: Speci men Type: BLOOD SPECIMENOrdering Facility: [facility] Address: [address] [place] [address] Performed By: #### 5 7021-8 ####[facility] [id number] [place] [id number] [place] MCHC (RBC) [Mass/Vol] 32.3 g/dL Normal 30.5-36.0 [facility] Comment on above: Order Comment: Speci men Type: BLOOD SPECIMENOrdering Facility: [facility] Address: [address] [place] [address] Performed By: #### 5 7021-8 ####[facility] [id number] [place] [id number] [place] MCV (RBC) [Entitic vol] 96.7 fL Normal 80.0-100.0 [facility] Comment on above: Order Comment: Speci men Type: BLOOD SPECIMENOrdering Facility: [facility] Address: [address] [place] [address] Performed By: #### 5 7021-8 ####[facility] [id number] [place] [address] [place] Monocytes (Bld) [#/Vol] 0.70 10*3/uL Normal <0.87 [facility] Comment on above: Order Comment: Speci men Type: BLOOD SPECIMENOrdering Facility: [facility] Address: [address] [place] [address] Performed By: #### 5 7021-8 ####[facility] [id number] [place] [address] [place] Monocytes/100 WBC (Bld) 11.9 % Normal [facility] Comment on above: Order Comment: Speci men Type: BLOOD SPECIMENOrdering Facility: [facility] Address: [address] [place] [address] Performed By: #### 5 7021-8 ####[facility] [id number] [place] [address] [place] Neutrophils (Bld) [#/Vol] 3.50 10*3/uL Normal 1.45-7.50 [facility] Comment on above: Order Comment: Speci men Type: BLOOD SPECIMENOrdering Facility: [facility] Address: [address] [place] [address] Performed By: #### 5 7021-8 ####[facility] [id number] [place] [address] [place] Neutrophils/100 WBC (Bld) 59.7 % Normal [facility] Comment on above: Order Comment: Speci men Type: BLOOD SPECIMENOrdering Facility: [facility] Address: [address] [place] [address] Performed By: #### 5 7021-8 ####[facility] [id number] [place] [address] [place] Nucleated RBC (Bld) [#/Vol] 10*3/uL Normal <0.01 [facility] Comment on above: Order Comment: Speci men Type: BLOOD SPECIMENOrdering Facility: [facility] Address: [address] [place] [address] Performed By: #### 5 7021-8 ####[facility] [id number] [place] [address] [place] Nucleated RBC/100 WBC (Bld) [Ratio] 0.0 /100 WBC Normal [facility] Comment on above: Order Comment: Speci men Type: BLOOD SPECIMENOrdering Facility: [facility] Address: [address] [place] [address] Performed By: #### 5 7021-8 ####[facility] LABIA [id number] [place] [address] [place] Platelet mean volume (Bld) [Entitic vol] 9.1 fL Normal 9.0-12.7 [facility] Comment on above: Order Comment: Speci men Type: BLOOD SPECIMENOrdering Facility: [facility] Address: [address] [place] [address] Performed By: #### 5 7021-8 ####[facility] [id number] [place] [id number] [place] Platelets (Bld) [#/Vol] 307 10*3/uL Normal 150-400 [facility] Comment on above: Order Comment: Speci men Type: BLOOD SPECIMENOrdering Facility: [facility] Address: [address] [place] [address] Performed By: #### 5 7021-8 ####[facility] [id number] [place] [address] [place] RBC (Bld) [#/Vol] 4.58 10*6/uL Normal 4.20-6.00 [facility] Comment on above: Order Comment: Speci men Type: BLOOD SPECIMENOrdering Facility: [facility] Address: [address] [place] [address] Performed By: #### 5 7021-8 ####[facility] [id number] [place] [address] [place] WBC (Bld) [#/Vol] 5.86 10*3/uL Normal 3.70-11.00 [facility] Comment on above: Order Comment: Speci men Type: BLOOD SPECIMENOrdering Facility: [facility] Address: [address] [place] [address] Performed By: #### 5 7021-8 ####[facility] [id number] [place] [address] [place] Calcium.ionized [Moles/Vol]o n 11-01-2024 Calcium.ionized (Bld) [Mass/Vol] 1.45 mmol/L High 1.08-1.30 [facility] Comment on above: Order Comment: Speci men Type: BLOOD SPECIMENOrdering Facility: [facility] Address: [address] [place] [address] Performed By: #### 1 995-0 ####[facility] [id number] [place] [address] [place] Calcium.ionized adjusted to pH 7.4 (Bld) [Moles/Vol] 1.44 mmol/L High 1.08-1.30 [facility] Comment on above: Order Comment: Speci men Type: BLOOD SPECIMENOrdering Facility: [facility] Address: [address] [place] [address] Performed By: #### 1 995-0 ####[facility] [id number] [address] [place] HISTORY PHYSICALon HISTORY PHYSICAL HNO ID: [id number] Author: LUANA BOSS PA-C Service: ? 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 AMLODIPINE 10 MG TABLET Take 10 mg by mouth once daily. Follows with PCP. Last 3 Encounter BP Readings: Date: BP: 11/01/2024 145/79 09/13/2024 124/63 08/16/2024 127/70 Class 1 obesity due to excess calories without serious comorbidity with body mass index (BMI) of 34.0 to 34.9 in adult Body mass index is 34.02 kg/m?. 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 Managed with flecainide and and ASA Follows with ADRIAN Bennett 10/25/24 SVT (supraventricular tachycardia) (HCC) H/o cardioversion 2015 Sinus lanette on ECG today Managed with flecainide Follows with ADRIAN Bennett 10/25/24 ANESTHESIA FINDINGS: Intubation History: No abnormal airway history Significant Anesthesia Considerations: none Airway History: No abnormal airway history Zaragoza Activity Status Index: METS: Walk indoors, such as around the house (1.75 METs) Do light work around the house, such as dusting or washing dishes (2.70 METs) Take care of self; that is eating, dressing, bathing, using the toilet (2.75 METs) Walk a block or two on level ground (2.75 METs) Do moderate work around the house, such as vacuuming, sweeping floors, or carrying in groceries (3.50 METs) Do yardwork, such as raking leaves, weeding, or pushing a power mower (4.50 METs) Climb a flight of stairs or walk up a hill (5.50 METs) DASI Score: 23.45 Patient denies any chest pain or undue shortness of breath with the above physical activity. STOP-Bang Score: STOP-Bang Score: (+REMY) [id number] Score: Age: >=75 Sex: male Hypertension history: Yes [id number] Score: ARISCAT Score: Age: 51-80 Preoperative SpO2: >=96% Preoperative anemia: Yes Duration of surgery: <2 hrs Emergency procedure: No ARISCAT Score: I - PHYSICAL EVALUATION AIRWAY Patient intubated: No. Tracheostomy tube not present Mallampati: IV. TM distance: >3 FB. Neck ROM: full ROM without neurological symptoms. Mouth opening: adequate. Short neck: no. Thick neck: no Microretrognathia/Micro nagthia/Recessed Chin: No DENTAL Dental findings: teeth intact. Additional comments: +crowns. II - ANESTHESIA PLAN Beta Gloria Monitoring Plan Post Procedure Analgesic Plan Prepared for surgery: This patient is optimally prepared for surgery CONSULTS: Patient does not require consults for optimization at this time. The Following Tests/Procedures Have Been Initiated: Labs and EKG per surgical service Planned Anesthetic: Per anesthesia choice REASON FOR VISIT: Bang Sharma is a 74 year old male who is scheduled for Bilateral - PARATHYROIDECTOMY at the request of for consultation. My final recommendation will be communicated back to the requesting physician by way of shared medical record or letter. Subjective CHIEF COMPLAINT: Pre-op exam HPI: Bang Sharma is a 74 year old male who presents to [facility] for the above procedure. Patient reports history of Hyperparathyroidism. Denies any CP, SOB, fever, chills, n/v/d, or dizziness. Recommended above procedure and elects to proceed. Patient is scheduled for procedure on 11/14/2024 at [facility]. REVIEW OF SYSTEMS: General: No weight loss, malaise or fevers. Neurological: No history of TIA's, stroke, MACHINE PLASTER MIXER tumor, impaired sensorium, hemiplegia, paraplegia or quadraplegia. No neurological symptoms or problems. Respiratory: Positive for: obstructive sleep apnea and CPAP/BiPAP compliant. Negative for: asthma, COPD and current cough. Cardiovascular: +h/o VT +LE edema, SOB Denies CP, orthopnea, PND, LE edema, palpitations, syncope, lightheadedness or dizziness. Positive for: atrial fibrillation and hypertension GI: No history of GI symptoms or problems. No history of esophageal varices, recent ascites, or ETOH greater than 2 drinks per day. : No history of dysuria, frequency or incontinence, stones or chronic kidney disease. No difficulty urinating, nocturia > 1 time per night or hematuria. Endocrine: No history of diabetes. Has not taken steroids within the past 30 days. No history of endocrinological symptoms or problems. Hematology: No history of bleeding or clotting disorder. Patient is not taking an (more content not included)... Normal [facility] PARATHYROID W SPECT/CTon 11-01-2024 FL PARATHYROID W SPECT/CT * * *Final Report* * * DATE OF EXAM: Nov 01 2024 2:25PM [facility] 0089 - [place] PARATHYROID W SPECT/CT / PROCEDURE REASON: Hyperparathyroidism [...] from 2018. Localizer Images: No additional findings. IMPRESSION: Mitochondrial rich parathyroid adenoma along the [...] be communicated with the ordering provider via [employer] staff message or phone message by [employer] within 2 business days of report finalization. --END OF FINDING-- Business Solutions Consultant: BARBARA Transcribe Date/Time: Nov 02 2024 7:32A Dictated by : BHAVIK RIVERA DO This examination was interpreted and the report reviewed and electronically signed by: BHAVIK RIVERA DO on Nov 02 2024 7:42AM EST [id number] ACTIONABLE Invalid Interpretation Code [facility] Office Visiton 10-25-2024 Follow-up visit [id number] Lucinda Sharma 1950 M Date Provider Department Center 10/25/2024 ALPESH [facility] Family History Problem Relation Age of Onset Coronary artery disease Other Hypertension Other Family Status - Relation Status Age at Mother Father Other Level of Service:35166 [place] OFFICE/OUTPATIENT ESTABLISHED LOW MDM 20 MIN Normal [facility] CALCIUM, 24 HR URINEon 10-19 Calcium (24H U) [Mass/Time] 357.0 mg/24 hr High 100.0-300.0 [facility] Comment on above: Order Comment: Speci men Type: URINE SPECIMENOrdering Facility: [facility] Address: [address] [place] [address] Performed By: #### U CALCD ####[facility] [id number] [address] LABCLIA [id number] [place] [address] PERIOD (HRS) 24 hr Normal [facility] Comment on above: Order Comment: Speci men Type: URINE SPECIMENOrdering Facility: [facility] Address: [address] [place] [address] Performed By: #### U CALCD ####[facility] [id number] [address] [address] [facility] LABCLIA [id number] [place] [address] Specimen volume (24H U) 1.75 L Normal [facility] Comment on above: Order Comment: Speci men Type: URINE SPECIMENOrdering Facility: [facility] Address: [address] [place] [address] Performed By: #### U CALCD ####[facility] [id number] [place] [id number] [facility] LABCLIA [id number] [place] [address] CREATININE, 24 HOUR URINEon 10-19-2024 Creatinine (24H U) [Mass/Time] 2.006 g/24 hr High 1.000-2.000 [facility] Comment on above: Order Comment: Speci men Type: URINE SPECIMENOrdering Facility: [facility] Address: [address] [place] [address] Performed By: #### U CRD ####[facility] [id number] [address] [address] [facility] LABCLIA [id number] [place] [address] PERIOD (HRS) 24 hr Normal [facility] Comment on above: Order Comment: Speci men Type: URINE SPECIMENOrdering Facility: [facility] Address: [address] [place] [address] Performed By: #### U CRD ####[facility] [id number] [address] [address] [facility] LABCLIA [id number] [place] [address] Specimen volume (24H U) 1.75 L Normal [facility] Comment on above: Order Comment: Speci men Type: URINE SPECIMENOrdering Facility: [facility] Address: [address] [place] [address] Performed By: #### U CRD ####[facility] [id number] [address] [address] [facility] LABCLIA [id number] [place] [address] Elvis 10-04-2024 OTILIA Telephone (ENSUMN) BANG SHARMA ([id number]) 1950 M Date Time Provider Department 10/04/24 GENEVA BUTLER During your visit today, we recorded the following information about you: Dora Larkin 10/04/2024 6:50 PM Signed Are you an Endocrinology Supervisor Telephone Information located at [facility]? Yes Patient Name: Bang Sharma Age: [age] year old Requestor: Dora Larkin Reason for Exam: [place] Parathyroid w SPECT/CT Orders needed prior to scheduling: [place] PARATHYROID W SPECT/CT [id number] Are all orders above present: Yes When will patient be scheduled: Day 1: Week of 10/31 No Doses on Thursday Route to [place] Schedulers @ [facility] Scheduling Hyperthyroidism or Nodule (100-300 microCi I-123 Capsules for Diagnostic Imaging) 24 Hour Uptake and Scan only (Mon - Th after 9:00 AM) If I-131 therapy is being considered, a must be performed within 24 hours of the I-131 therapy for women of child bearing age. If I-131 therapy is being considered, a woman should be told she should not breastfeed for six weeks prior to the date of therapy. Medication/Contrast Restrictions: The ordering staff is responsible for making patients and requestors/schedulers aware of medication and contrast restrictions. Please review and select appointment dates which comply with these restrictions, if necessary. Patients should not take the following thyroid medications prior to exam unless your physician tells you otherwise: Synthroid- stopped 4-6 weeks prior to exam Methimzole and PTU(Propylthiouracil) - stopped 1 week prior to exam Patient should not receive iodinated contrast 6 weeks prior. Example: (CT IV Dye) Length of study: 1 - 1 1/2 hours Allergies As of Date: 10/04/2024 Noted Allergy Reaction PENICILLINS 04/07/2014 4 - Hives INSECTS EXTRACT 10/31/2020 14 - Other: See Comments Comments: Insect protein - eyes swell and blistering Date Reviewed: 09/13/2024 Reviewed by: Arlene Florian MA - Fully Assessed Reason for Visit: NM Parathyroid Request [Other] Prescriptions as of 10/10/2024 - meloxicam (MOBIC) 15 mg tablet Take 15 mg by mouth once daily. - flecainide (TAMBOCOR) 100 mg tablet - metoprolol succinate ER (TOPROL XL) 25 mg 24 hr tablet every 24 hours. - aspirin 325 mg tablet Take 325 mg by mouth once daily. - Magnesium 30 mg tablet Take 500 mg by mouth once daily. - potassium (POTASSIMIN ORAL) Take 300 mg by mouth once daily. - amLODIPine (NORVASC) 2.5 mg tablet Take 10 mg by mouth twice daily. - amiodarone (PACERONE) 100 mg tablet Take 100 mg by mouth once daily. Taking 200 mg's every other day and taking 100mg's every other day. - losartan-hydrochlorothi azide (HYZAAR) 100-25 mg per tablet Take 1 tablet by mouth once daily. 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*06/30/2019 Gait abnormality [R26.9] 06/30/2019 Disturbance of skin sensation [R20.9] 06/30/2019 Encounter Status:Closed by DORA LARKIN on 10/10/24 Normal [facility] CNOVon 09-13-2024 CNOV Office Visit (ENSUMN ) BANG SHARMA ([id number]) 1950 M Date Time Provider Department 09/13/24 12:20 PM GENEVA BUTLER During your visit today, we recorded the following information about you: Pulse Blood pressure Weight Height 75/minute 124/63 123.2 kg 1.892 m Arlene Florian MA 09/13/2024 11:05 AM Signed Thank you for choosing the [facility] Department of Endocrinology, Diabetes and Metabolism. Did you know that you need to call 48 hours in advance of your scheduled visit, if you are unable to make your appointment? The End[facility]inology [facility] Metabolism [place] thanks you for your commitment, because patients not showing to their appointment results in a lost opportunity for patients to receive [facility] health care at the [facility]. To Cancel an appointment, please choose one of the following: - Call the Appointment Call Center at [phone] - From [facility], Go to Appointments - Cancel Appts If cancelling, consider your need to reschedule to prevent further delays in your care. To Schedule an appointment, please choose one of the following: - Call the Appointment Call Center at [phone] - From [facility], Go to Appointments - Request an Appt Geneva Butler MD 09/13/2024 12:00 PM Signed The [facility] Endocrinology and Metabolism [place] Department of Endocrine Surgery Geneva Butler M.D. [address] [place] [address] Mr. Bang Sharma was seen in the office today in consultation for primary hyperparathyroidism. The patient was referred by Dr. Herber Donald, and my findings and recommendations will be communicated by way of the shared medical record. Thank you for referring your patient, Mr. Sharma, for evaluation of primary hyperparathyroidism. As you know, he is a 73-year-old male who was incidentally found to have elevated calcium levels on routine blood work. Subsequent biochemical work-up also revealed elevated PTH levels. The diagnosis of primary hyperparathyroidism was made, and he was referred here for further evaluation. The patient's past medical history is significant for hypertension, chondrosarcoma, atrial fibrillation, and sleep apnea. His medications include flecainide, metoprolol, amlodipine, losartan-HCTZ, amiodarone, potassium meloxicam, and aspirin. The patient's past surgical history is significant for inguinal hernia repairs, tonsillectomy, and right leg surgery. In terms of his family history, two of his daughters had hyperparathyroidism. The patient denies any history of ionizing radiation to the head or neck. In terms of symptoms related to primary hyperparathyroidism, he denies any kidney stones or pathologic fractures. However, he does have fatigue and polyuria/polydypsia. Latest Ref Rng 08/31/2018 08/16/2024 - PARATHYROID DATA SHEET Calcium 8.5 - 10.2 mg/dL 10.2 Calcium 8.5 - 10.2 mg/dL 11.2 (H) PTH, Intact 15 - 65 pg/mL 106 (H) Phosphorus 2.7 - 4.8 mg/dL 2.2 (L) Creatinine 0.73 - 1.22 mg/dL 1.02 Creatinine 0.73 - 1.22 mg/dL 1.55 (H) Vitamin D 25 Hydroxy 31.0 - 80.0 ng/mL 32.7 Vit D1,25 Dihydroxy 19.9 - 79.3 pg/mL 45.7 He has not yet undergone a parathyroid scan. His most recent bone density scan performed on 07/18/24 revealed normal bone density. On physical examination, Mr. Sharma is a healthy appearing man in no acute distress. Inspection of the head and neck reveals no obvious abnormalities. Palpation of the neck reveals no thyromegaly or cervical lymphadenopathy. Ultrasound examination was performed in the office. This revealed a thyroid gland that was overall normal in size with a fine uniform echogenicity. There were a few subcm nodules. Posterior to the mid aspect of the left thyroid gland was a potential lesion. No areas were seen to suggest an abnormal parathyroid gland. In summary, Mr. Sharma is a 73-year-old male with biochemical studies that show clear evidence of primary hyperparathyroidism. The indications, risks, benefits, and alternatives of a parathyroid exploration were explained to the patient in detail. I will keep you informed as to his perioperative course. I appreciate being involved in the care of your patient, and please feel free to contact me should you have questions or concerns. GENEVA BUTLER M.D. CC: Herber Donald M.D. Alvin Lo D.O. Referring Provider: HERBER DONALD [[id number]] Allergies As of Date: 09/13/2024 Noted Allergy Reaction PENICILLINS 04/07/2014 4 - Hives INSECTS EXTRACT 10/31/2020 14 - Other: See Comments Comments: Insect protein - eyes swell and blistering Date Reviewed: 09/13/2024 Reviewed by: Arlene Florian MA - Fully Assessed Reason for Visit: Consult [173] Thyroid Problem [110] Hyperparathyroidism [1465] Primary Visit Diagnosis:Hyperparathyr oidism (HCC) [E21.3 (more content not included)... Normal [facility] Orders Onlyon 08-26-2024 Orders Only [id number] Lucinda Sharma 1950 M Date Provider Department Center 08/26/2024 241-ALPESH [facility] Family History Problem Relation Age of Onset Coronary artery disease Other Hypertension Other Family Status - Relation Status Age at Other Normal [facility] Basophils Auto (Bld) [#/Vol] on 08-25-2024 Basophils (Bld) [#/Vol] Automated basophil count 0.0-0.1 [facility] Basophils/100 WBC Auto (Bld) on 08-25-2024 Basophils/100 WBC (Bld) Automated basophil % Low 0.2-2.0 [facility] Eosinophils/100 WBC Auto (Bl d)on 08-25-2024 Eosinophils/100 WBC (Bld) Automated eosinophil % Low 0.9-7.0 [facility] Erythrocyte distribution wid th Auto (RBC) [Ratio]on 08-25-2024 Erythrocyte distribution width (RBC) [Ratio] Erythrocyte distribution width [Ratio] by Automated count 11.0-15.0 [facility] Estimated glomerular filtrat ion rate (GFR) non- Americanon 08-25-2024 GFR/1.73 sq M.predicted among non-blacks MDRD (S/P/Bld) [Vol rate/Area] Estimated glomerular filtration rate (GFR) non- >=60 mL/min/1.73m 2 [facility] Globulin Calc (S) [Mass/Vol] on 08-25-2024 Globulin (S) [Mass/Vol] Serum globulin measurement by calculation (mass/volume) [facility] Hematocrit Auto (Bld) [Volum e fraction]on 08-25-2024 Hematocrit (Bld) [Volume fraction] Hematocrit [Volume Fraction] of Blood by Automated count Low 42.0-54.0 [facility] Hemoglobin [Mass/volume] in Bloodon 08-25-2024 Hemoglobin (Bld) [Mass/Vol] Hemoglobin [Mass/volume] in Blood Low 14.0-18.0 [facility] Laboratory - Chemistry and C hemistry - challengeon 08-25-2024 Albumin [Mass/Vol] 2.8 g/dL Low 3.4-5.0 [facility] ALP [Catalytic activity/Vol] 45 U/L Low 46-116 [facility] ALT [Catalytic activity/Vol] 31 U/L 16-63 [facility] AST [Catalytic activity/Vol] 23 U/L 15-37 [facility] Bilirubin [Mass/Vol] 0.3 mg/dL 0.2-1.0 [facility] Calcium [Mass/Vol] 9.6 mg/dL 8.5-10.1 [facility] Chloride [Moles/Vol] 101 mmol/L 98-107 [facility] CO2 [Moles/Vol] 26.0 mmol/L 21.0-32.0 [facility] Creatinine [Mass/Vol] 0.90 mg/dL 0.70-1.30 [facility] GFR/1.73 sq M.predicted MDRD (S/P/Bld) [Vol rate/Area] mL/min/{1.73_m2} >=60 mL/min/1.73m 2 [facility] Glucose [Mass/Vol] 93 mg/dL 74-106 [facility] Potassium [Moles/Vol] 3.5 mmol/L 3.5-5.1 [facility] Protein [Mass/Vol] 6.1 g/dL Low 6.4-8.2 [facility] Sodium [Moles/Vol] 133 mmol/L Low 136-145 [facility] Urea nitrogen [Mass/Vol] 18.0 mg/dL 7.0-18.0 [facility] Urea nitrogen/Creatinine [Mass ratio] 20.0 mg/mg [facility] Laboratory - Hematology and Cell countson 08-25-2024 Immature granulocytes/100 WBC (Bld) 0.4 % 0.0-0.5 [facility] Leukocytes [#/volume] correc evelyne for nucleated erythrocytes in Blood by Automated counon 08-25-2024 WBC corrected for nucl RBC Auto (Bld) [#/Vol] Leukocytes [#/volume] corrected for nucleated erythrocytes in Blood by Automated coun 4.0-11.0 [facility] Lymphocytes Auto (Bld) [#/Vo l]on 08-25-2024 Lymphocytes (Bld) [#/Vol] Lymphocytes [#/volume] in Blood by Automated count 1.2-3.8 [facility] Lymphocytes/100 WBC Auto (Bl d)on 08-25-2024 Lymphocytes/100 WBC (Bld) Lymphocytes/100 leukocytes in Blood by Automated count Low 20.5-60.0 [facility] MCH Auto (RBC) [Entitic mass ]on 08-25-2024 MCH (RBC) [Entitic mass] MCH [Entitic mass] by Automated count 25.9-34.0 [facility] MCHC Auto (RBC) [Mass/Vol]on 08-25-2024 MCHC (RBC) [Mass/Vol] MCHC [Mass/volume] by Automated count 29.9-35.2 [facility] MCV Auto (RBC) [Entitic vol] on 08-25-2024 MCV (RBC) [Entitic vol] MCV [Entitic volume] by Automated count High 80.0-94.0 [facility] Monocytes Auto (Bld) [#/Vol] on 08-25-2024 Monocytes (Bld) [#/Vol] Automated blood monocyte count High 0.3-0.8 [facility] Monocytes/100 WBC Auto (Bld) on 08-25-2024 Monocytes/100 WBC (Bld) Automated monocyte % High 1.7-12.0 [facility] Neutrophils Auto (Bld) [#/Vo l]on 08-25-2024 Neutrophils (Bld) [#/Vol] Neutrophils [#/volume] in Blood by Automated count 1.4-6.5 [facility] Neutrophils/100 WBC Auto (Bl d)on 08-25-2024 Neutrophils/100 WBC (Bld) Automated neutrophil % 43.0-75.0 [facility] No Panel Informationon 08-25 Eosinophils # (Auto) 0.0 10 3/uL 0.0-0.7 [facility] Imm[facility] Granulocyte # (Auto) 0.03 10 3/uL 0.00-0.03 [facility] Platelet mean volume Auto (B ld) [Entitic vol]on 08-25-2024 Platelet mean volume (Bld) [Entitic vol] Platelet mean volume [Entitic volume] in Blood by Automated count 9.5-13.5 [facility] Platelets Auto (Bld) [#/Vol] on 08-25-2024 Platelets (Bld) [#/Vol] Platelets [#/volume] in Blood by Automated count 150-450 [facility] RBC Auto (Bld) [#/Vol]on RBC (Bld) [#/Vol] Erythrocytes [#/volu me] in Blood by Automated count Low 4.70-6.10 [facility] Serum or plasma albumin/glob ulin mass ratioon 08-25-2024 Albumin/Globulin [Mass ratio] Serum or plasma albumin/globulin mass ratio [facility] Serum or plasma anion gap de terminationon 08-25-2024 Anion gap [Moles/Vol] Serum or plasma anion gap determination [facility] Basophils Auto (Bld) [#/Vol] on 08-24-2024 Basophils (Bld) [#/Vol] Automated basophil count 0.0-0.1 [facility] Basophils/100 WBC Auto (Bld) on 08-24-2024 Basophils/100 WBC (Bld) Automated basophil % Low 0.2-2.0 [facility] Eosinophils/100 WBC Auto (Bl d)on 08-24-2024 Eosinophils/100 WBC (Bld) Automated eosinophil % Low 0.9-7.0 [facility] Erythrocyte distribution wid th Auto (RBC) [Ratio]on 08-24-2024 Erythrocyte distribution width (RBC) [Ratio] Erythrocyte distribution width [Ratio] by Automated count 11.0-15.0 [facility] Estimated glomerular filtrat ion rate (GFR) non- Americanon 08-24-2024 GFR/1.73 sq M.predicted among non-blacks MDRD (S/P/Bld) [Vol rate/Area] Estimated glomerular filtration rate (GFR) non- >=60 mL/min/1.73m 2 [facility] Globulin Calc (S) [Mass/Vol] on 08-24-2024 Globulin (S) [Mass/Vol] Serum globulin measurement by calculation (mass/volume) [facility] Hematocrit Auto (Bld) [Volum e fraction]on 08-24-2024 Hematocrit (Bld) [Volume fraction] Hematocrit [Volume Fraction] of Blood by Automated count Low 42.0-54.0 [facility] Hemoglobin [Mass/volume] in Bloodon 08-24-2024 Hemoglobin (Bld) [Mass/Vol] Hemoglobin [Mass/volume] in Blood Low 14.0-18.0 [facility] Laboratory - Chemistry and C hemistry - challengeon 08-24-2024 Albumin [Mass/Vol] 3.1 g/dL Low 3.4-5.0 [facility] ALP [Catalytic activity/Vol] 50 U/L 46-116 [facility] ALT [Catalytic activity/Vol] 36 U/L 16-63 [facility] AST [Catalytic activity/Vol] 23 U/L 15-37 [facility] Bilirubin [Mass/Vol] 0.6 mg/dL 0.2-1.0 [facility] Calcium [Mass/Vol] 9.5 mg/dL 8.5-10.1 [facility] Chloride [Moles/Vol] 98 mmol/L 98-107 [facility] CO2 [Moles/Vol] 25.1 mmol/L 21.0-32.0 [facility] Creatinine [Mass/Vol] 1.09 mg/dL 0.70-1.30 [facility] GFR/1.73 sq M.predicted MDRD (S/P/Bld) [Vol rate/Area] mL/min/{1.73_m2} >=60 mL/min/1.73m 2 [facility] Glucose [Mass/Vol] 103 mg/dL 74-106 [facility] Natriuretic peptide B (Bld) [Mass/Vol] 1396.0 pg/mL Critically high <=900.0 [facility] Comment on above: RESULTS CALLED TO Potassium [Moles/Vol] 3.3 mmol/L Low 3.5-5.1 [facility] Protein [Mass/Vol] 6.5 g/dL 6.4-8.2 [facility] Sodium [Moles/Vol] 133 mmol/L Low 136-145 [facility] Urea nitrogen [Mass/Vol] 14.0 mg/dL 7.0-18.0 [facility] Urea nitrogen/Creatinine [Mass ratio] 12.8 mg/mg [facility] Laboratory - Hematology and Cell countson 08-24-2024 Immature granulocytes/100 WBC (Bld) 0.4 % 0.0-0.5 [facility] Leukocytes [#/volume] correc evelyne for nucleated erythrocytes in Blood by Automated counon 08-24-2024 WBC corrected for nucl RBC Auto (Bld) [#/Vol] Leukocytes [#/volume] corrected for nucleated erythrocytes in Blood by Automated coun 4.0-11.0 [facility] Lymphocytes Auto (Bld) [#/Vo l]on 08-24-2024 Lymphocytes (Bld) [#/Vol] Lymphocytes [#/volume] in Blood by Automated count Low 1.2-3.8 [facility] Lymphocytes/100 WBC Auto (Bl d)on 08-24-2024 Lymphocytes/100 WBC (Bld) Lymphocytes/100 leukocytes in Blood by Automated count Low 20.5-60.0 [facility] MCH Auto (RBC) [Entitic mass ]on 08-24-2024 MCH (RBC) [Entitic mass] MCH [Entitic mass] by Automated count 25.9-34.0 [facility] MCHC Auto (RBC) [Mass/Vol]on 08-24-2024 MCHC (RBC) [Mass/Vol] MCHC [Mass/volume] by Automated count 29.9-35.2 [facility] MCV Auto (RBC) [Entitic vol] on 08-24-2024 MCV (RBC) [Entitic vol] MCV [Entitic volume] by Automated count High 80.0-94.0 [facility] Monocytes Auto (Bld) [#/Vol] on 08-24-2024 Monocytes (Bld) [#/Vol] Automated blood monocyte count 0.3-0.8 [facility] Monocytes/100 WBC Auto (Bld) on 08-24-2024 Monocytes/100 WBC (Bld) Automated monocyte % 1.7-12.0 [facility] Neutrophils Auto (Bld) [#/Vo l]on 08-24-2024 Neutrophils (Bld) [#/Vol] Neutrophils [#/volume] in Blood by Automated count High 1.4-6.5 [facility] Neutrophils/100 WBC Auto (Bl d)on 08-24-2024 Neutrophils/100 WBC (Bld) Automated neutrophil % High 43.0-75.0 [facility] No Panel Informationon 08-24 Eosinophils # (Auto) 0.0 10 3/uL 0.0-0.7 [facility] Immature Granulocyte # (Auto) 0.04 10 3/uL High 0.00-0.03 [facility] Platelet mean volume Auto (B ld) [Entitic vol]on 08-24-2024 Platelet mean volume (Bld) [Entitic vol] Platelet mean volume [Entitic volume] in Blood by Automated count Low 9.5-13.5 [facility] Platelets Auto (Bld) [#/Vol] on 08-24-2024 Platelets (Bld) [#/Vol] Platelets [#/volume] in Blood by Automated count 150-450 [facility] RBC Auto (Bld) [#/Vol]on RBC (Bld) [#/Vol] Erythrocytes [#/volu me] in Blood by Automated count Low 4.70-6.10 [facility] Serum or plasma albumin/glob ulin mass ratioon 08-24-2024 Albumin/Globulin [Mass ratio] Serum or plasma albumin/globulin mass ratio [facility] Serum or plasma anion gap de terminationon 08-24-2024 Anion gap [Moles/Vol] Serum or plasma anion gap determination [facility] Basophils/100 WBC Manual cnt (Bld)on 08-23-2024 Basophils/100 WBC (Bld) Basophils/100 leukocytes in Blood by Manual count Low 0.2-2.0 [facility] CNPNon 08-23-2024 JULIETHN Telephone (JOLYNN) BANG SHARMA ([id number]) 1950 M Date Time Provider Department 08/23/24 GENEVA BUTLER During your visit today, we recorded the following information about you: Allergies As of Date: 08/23/2024 Noted Allergy Reaction PENICILLINS 04/07/2014 4 - Hives INSECTS EXTRACT 10/31/2020 14 - Other: See Comments Comments: Insect protein - eyes swell and blistering Date Reviewed: 08/16/2024 Reviewed by: José Nieves MA - Fully Assessed Reason for Visit: Appointment [186] Cmt: Left a messge that appointment with scheduled for today(08/23) was rescheduled to 09/13 at 12:20 PM due to patient not feeling well. Sent My chart message Prescriptions as of 08/23/2024 - meloxicam (MOBIC) 15 mg tablet Take 15 mg by mouth once daily. - flecainide (TAMBOCOR) 100 mg tablet - metoprolol succinate ER (TOPROL XL) 25 mg 24 hr tablet q 24 HR. - aspirin 325 mg tablet Take 325 mg by mouth once daily. - Magnesium 30 mg tablet Take 500 mg by mouth once daily. - potassium (POTASSIMIN ORAL) Take 300 mg by mouth once daily. - amLODIPine (NORVASC) 2.5 mg tablet Take 10 mg by mouth twice daily. - amiodarone (PACERONE) 100 mg tablet Take 100 mg by mouth once daily. Taking 200 mg's every other day and taking 100mg's every other day. - losartan-hydrochlorothi azide (HYZAAR) 100-25 mg per tablet Take 1 tablet by mouth once daily. 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] 08/27/2017 Chronic pain of right ankle [M25.571, G89.29] 08/31/2018 Right foot drop [M21.371] 06/30/2019 Monoplegia of left lower extremity (HCC) [G83.1*06/30/2019 Gait abnormality [R26.9] 06/30/2019 Disturbance of skin sensation [R20.9] 06/30/2019 Encounter Status:Closed by MICHELLE ALMAGUER on 08/23/24 Normal [facility] Ca Eosinophils/100 WBC Manual c nt (Bld)on 08-23-2024 Eosinophils/100 WBC (Bld) Eosinophils/100 leukocytes in Blood by Manual count Low 0.9-7.0 [facility] Estimated glomerular filtrat ion rate (GFR) non- Americanon 08-23-2024 GFR/1.73 sq M.predicted among non-blacks MDRD (S/P/Bld) [Vol rate/Area] Estimated glomerular filtration rate (GFR) non- >=60 mL/min/1.73m 2 [facility] Globulin Calc (S) [Mass/Vol] on 08-23-2024 Globulin (S) [Mass/Vol] Serum globulin measurement by calculation (mass/volume) [facility] INR in Platelet poor plasma by Coagulation assayon 08-23-2024 INR Coag (PPP) [Relative time] INR in Platelet poor plasma by Coagulation assay [facility] Comment on above: DESIRED INR:2.0-3.0 CONDITIONS NOT LISTED BELOW2.5-3.5 FOR PROSTHETIC HEART VALVE REPLACEMENT2.5-3.5 RECURRENT THROMBOSIS Laboratory - Chemistry and C hemistry - challengeon 08-23-2024 Albumin [Mass/Vol] 3.8 g/dL 3.4-5.0 [facility] ALP [Catalytic activity/Vol] 64 U/L 46-116 [facility] ALT [Catalytic activity/Vol] 41 U/L 16-63 [facility] AST [Catalytic activity/Vol] 17 U/L 15-37 [facility] Bilirubin [Mass/Vol] 0.7 mg/dL 0.2-1.0 [facility] Calcium [Mass/Vol] 9.7 mg/dL 8.5-10.1 [facility] Chloride [Moles/Vol] 98 mmol/L 98-107 [facility] CO2 [Moles/Vol] 26.1 mmol/L 21.0-32.0 [facility] Creatinine [Mass/Vol] 1.19 mg/dL 0.70-1.30 [facility] GFR/1.73 sq M.predicted MDRD (S/P/Bld) [Vol rate/Area] mL/min/{1.73_m2} >=60 mL/min/1.73m 2 [facility] Glucose [Mass/Vol] 130 mg/dL High 74-106 [facility] Lactate [Moles/Vol] 1.0 mmol/L 0.4-2.0 [facility] Natriuretic peptide B (Bld) [Mass/Vol] 1038.0 pg/mL High <=900.0 [facility] Potassium [Moles/Vol] 3.6 mmol/L 3.5-5.1 [facility] Protein [Mass/Vol] 7.3 g/dL 6.4-8.2 [facility] Sodium [Moles/Vol] 131 mmol/L Low 136-145 [facility] Urea nitrogen [Mass/Vol] 13.0 mg/dL 7.0-18.0 [facility] Urea nitrogen/Creatinine [Mass ratio] 10.9 mg/mg [facility] Laboratory - Hematology and Cell countson 08-23-2024 Lymphocytes/100 WBC (Bld) 4.0 % Low 20.5-60.0 [facility] Monocytes/100 WBC (Bld) 6.0 % 1.7-12.0 [facility] Laboratory - Microbiology an d Antimicrobial susceptibilityon 08-23-2024 SARS-CoV-2 (COVID-19) RNA ELLIOT+probe Ql (Unsp spec) Negative NEGATIVE [facility] Comment on above: This test has not be en FDA cleared or approved, but has beenauthorized by the FDA under an Emergency Use Authorization(EUA) for use by authorized laboratories certified underIA that meet the requirements to perform moderate or highcomplexity testing. This test has been authorized only forthe detection of proteins from SARS-CoV-2, not for any otherviruses or pathogens. The emergency use of this test isauthorized for the duration of the declaration thatcircumstances exist justifying the authorization ofemergency use of in vitro diagnostic tests for detectionand/or diagnosis of Covid-19 under section 564(b)(1) of theAct, 21 U.S.C. 360bbb-3(b)(1), unless the declaration isterminated or authorization is revoked sooner. No Panel Informationon 08-23 Absolute Basophils (Manual) 0.00 10 3/uL 0.00-0.10 [facility] Eosinophils # (Manual) 0.00 10 3/uL 0.00-0.70 [facility] Lymphocytes # (Manual) 0.52 10 3/uL Low 1.20-3.80 [facility] Monocytes # (Manual) 0.79 10 3/uL 0.30-0.80 [facility] Segmented Neutrophils # (Manual) 11.88 10 3/uL High 1.4-6.5 [facility] Troponin I High Sensitivity 33.4 pg/mL 4.0-76.1 [facility] Comment on above: CUT-OFF POINTS HAVE BEEN ESTABLISHED BASED ON THE FOURTHUNIVERSAL DEFINITION OF MYOCARDIAL INFARCTION. THE UPPERREFERENCE LIMIT (URL) OF TROPONIN, DEFINED THE 99THPERCENTILE OF cTnI DISTRIBUTION IN A REFERENCE POPULATION,HAS BEEN CONFIRMED THE DECISION THRESHOLD FOR MIDIAGNOSIS.99TH PERCENTILE = 76.2 PG/MLNOTE: HIGH-SENSITIVITY TROPONIN ASSAY IS NOT INTENDED TO BEUSED IN ISOLATION BUT SHOULD BE INTERPRETED IN CONJUNCTIONWITH OTHER DIAGNOSTIC AND CLINICAL INFORMATION. Bedside Influenza Type A Antigen Negative [facility] Comment on above: Negative for Flu A p rotein antigen. Infection due to Flu Acannot be ruled out. Flu A antigen in the sample may bebelow the detection limit of the test. Bedside Influenza Type B Antigen Negative [facility] Comment on above: Negative for Flu B p rotein antigen. Infection due to Flu Bcannot be ruled out. Flu B antigen in the sample may bebelow the detection limit of the test. Prothrombin time (PT)on PT Coag (PPP) [Time] Prothrombin time (PT) High 9.0- 11.6 [facility] Segmented neutrophils/100 WB C Manual cnt (Bld)on 08-23-2024 Segmented neutrophils/100 WBC (Bld) Manual blood segmented neutrophils/100 leukocytes High 43.0-75.0 [facility] Serum or plasma albumin/glob ulin mass ratioon 08-23-2024 Albumin/Globulin [Mass ratio] Serum or plasma albumin/globulin mass ratio [facility] Serum or plasma anion gap de terminationon 08-23-2024 Anion gap [Moles/Vol] Serum or plasma anion gap determination [facility] CNPJes 08-18-2024 CNPN Telephone (ENDOLN) ZACHARYBANG Juanjose ([id number]) 1950 M Date Time Provider Department 08/18/24 HERBER DONALD ENDOLN During your visit today, we recorded the following information about you: Marina Mccracken MA 08/18/2024 10:39 AM Signed A form has been received from [facility] for DXA Bone Densitometry Report. Sent to Dr Donald for consideration. Sent to Medical Records to be scanned. Herber Donald MD 08/18/2024 11:39 AM Signed Noted, BMD normal on 07/18/24 DXA, thanks Allergies As of Date: 08/18/2024 Noted Allergy Reaction PENICILLINS 04/07/2014 4 - Hives INSECTS EXTRACT 10/31/2020 14 - Other: See Comments Comments: Insect protein - eyes swell and blistering Date Reviewed: 08/16/2024 Reviewed by: José Nieves MA - Fully Assessed Reason for Visit: Results [95] Cmt: [facility] - DXA scan Prescriptions as of 08/18/2024 - meloxicam (MOBIC) 15 mg tablet Take 15 mg by mouth once daily. - flecainide (TAMBOCOR) 100 mg tablet - metoprolol succinate ER (TOPROL XL) 25 mg 24 hr tablet q 24 HR. - aspirin 325 mg tablet Take 325 mg by mouth once daily. - Magnesium 30 mg tablet Take 500 mg by mouth once daily. - potassium (POTASSIMIN ORAL) Take 300 mg by mouth once daily. - amLODIPine (NORVASC) 2.5 mg tablet Take 10 mg by mouth twice daily. - amiodarone (PACERONE) 100 mg tablet Take 100 mg by mouth once daily. Taking 200 mg's every other day and taking 100mg's every other day. - losartan-hydrochlorothi azide (HYZAAR) 100-25 mg per tablet Take 1 tablet by mouth once daily. 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 AND COMPLETE INTAKE QUESTIONS-NEED PARTIAL LABS, URINE, DXA, AND MIBI-- CALLED THE LAB TO POSSIBLY ADD ON IONIZED CALCIUM AND VIT D1 25. ENDOCRINE SURGERY PATIENT WORKSHEET Initial Call Date: August 17, 2024 Reason for Consult/ Referral: Hyperparathyroid PATIENT DEMOGRAPHICS Name: Bang Sharma CCF#: [id number] : 1950 AGE: [age] year old Contact Numbers: Home: (home) Work: There is no work phone number on file. PATIENT PHYSICIAN INFORMATION Referring Doctor: Address: Phone: Industrial Roofer: Address: Phone: PCP: Alvin Lo ([facility]) [address] [place], [place] [id number] PAST TREATMENT Office notes: SEE EPIC Medications: NONE THAT APPLY Pre-Visit Testing Latest Ref Rng 08/16/2024 Albumin 3.9 - 4.9 g/dL 4.5 Calcium 8.5 - 10.2 mg/dL 11.2 (H) Phosphorus 2.7 - 4.8 mg/dL 2.2 (L) Glucose 74 - 99 mg/dL 89 BUN 9 - 24 mg/dL 21 Creatinine 0.73 - 1.22 mg/dL 1.55 (H) Sodium 136 - 144 mmol/L 143 Potassium 3.7 - 5.1 mmol/L 4.3 Chloride 98 - 107 mmol/L 107 CO2 22 - 30 mmol/L 23 Anion Gap 8 - 15 mmol/L 13 eGFR >=60 mL/min/1.73m? 47 (L) Vitamin D 25 Hydroxy 31.0 - 80.0 ng/mL 32.7 PTH, Intact 15 - 65 pg/mL 106 (H) Imaging Reports: SEE EPIC CD of Images: SEE EPIC FNA: no FNA Slides: N/A Has the patient ever had thyroid or parathyroid surgery before: No Operative Reports: NONE AVAILABLE Pathology Reports: NONE AVAILABLE Allergies As of Date: 08/17/2024 Noted Allergy Reaction PENICILLINS 04/07/2014 4 - Hives INSECTS EXTRACT 10/31/2020 14 - Other: See Comments Comments: Insect protein - eyes swell and blistering Date Reviewed: 08/16/2024 Reviewed by: José Nieves MA - Fully Assessed Reason for Visit: Consult [173] Cmt: FACE SHEET Primary Visit Diagnosis: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 #:[id number] CREATININE, 24 HOUR URINE [SQUCRD] Order #: [id number]. #:[id number] DXA-AXIAL SKELETON [[id number]] Order #: [id number] FUTURE DXA-FOREARM SKELETON [[id number]] Order #: [id number] FUTURE Prescriptions as of 08/17/2024 - meloxicam (MOBIC) 15 mg tablet Take 15 mg by mouth once daily. - flecainide (TAMBOCOR) 100 mg tablet - metoprolol succinate ER (TOPROL XL) 25 mg 24 hr tablet q 24 HR. - aspirin 325 mg tablet Take 325 mg by mouth once daily. - Magnesium 30 mg tablet Take 500 mg by mouth once daily. - potassium (POTASSIMIN ORAL) Take 300 mg by mouth once daily. - amLODIPine (NORVASC) 2.5 mg tablet Take 10 mg by mouth twice daily. - amiodarone (PACERONE) 100 mg tablet Take 100 mg by mouth once daily. Taking 200 mg's every other day and taking 100mg's every other day. - losartan-hydrochlorothi azide (HYZAAR) 100-25 mg per tablet Take 1 tablet by mouth once daily. 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*06/30/2019 Gait abnormality [R26.9] 06/30/2019 Disturbance of skin sensation [R20.9] 06/30/2019 Encounter Status:Closed by EDD SOSA on 08/17/24 Normal [facility] 1,25-dihydroxyvitamin D3 [Ma ss/Vol]on 08-16-2024 VIT D1,25 DIHYDROXY 45.7 pg/mL Normal 19.9-79.3 [facility] Comment on above: Order Comment: Speci men Type: BLOOD SPECIMENOrdering Facility: [facility] Address: [address] [place] [address] Performed By: #### 1 649-3, 1988-06 ####[facility] [id number] [address] [place] 25(OH)D3 SerPl-ncon 2024 25-hydroxyvitamin D3 [Mass/Vol] 32.7 ng/mL Normal 31.0-80.0 [facility] Comment on above: Order Comment: Speci men Type: BLOOD SPECIMENOrdering Facility: [facility] Address: [address] [place] [address] Result Comment: Clas sification of 25 [place] Vitamin D status: Deficiency/Insufficiency: < or = 30 ng/ml. Sufficiency/Optimal Levels: 31-80 ng/mL Toxicity: > 100 ng/mL. Test performed by chemiluminescent immunoassay. Performed By: #### 1 649-3, 1988-06 ####[facility] [id number] [address] [place] CNOVon 08-16-2024 CNOV Office Visit (ENDOLN ) BANG SHARMA ([id number]) 1950 M Date Time Provider Department 08/16/24 3:20 PM HERBER DONALD ENDOLN During your visit today, we recorded the following information about you: Pulse Blood pressure Weight 64/minute 127/70 123.2 kg Herber Donald MD 08/16/2024 3:37 PM Signed Mr. 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 Energy loss: No Fractures: broke his leg after he fell after cast removed following chondrosarcoma surgery Loss of Height: down 1/2 inch Joint/bone pain: both ankles, nothing new N/V: No Abdominal pain: No Back pain: No BM change: No Kidney stones: No Mental status/mood change: No Polydypsia/polyuria: thirsty, but could be due to CPAP Hydration: 6-7 cups water daily Calcium supplement: No, eating more cheese, 1-2 slices per day and sometimes milk with cereal Vitamin D: Yes, not sure of dose Bisphosphonate: No Other supplements: No Family h/o high calcium or kidney stones: one daughter had PHPT s/p parathyroidectomy All other Review of Systems reviewed and are negative. meloxicam (MOBIC) 15 mg tablet, Take 15 mg by mouth once daily., Disp: , Rfl: flecainide (TAMBOCOR) 100 mg tablet, , Disp: , Rfl: Magnesium 30 mg tablet, Take 500 mg by mouth once daily., Disp: , Rfl: amLODIPine (NORVASC) 2.5 mg tablet, Take 10 mg by mouth twice daily. , Disp: , Rfl: 3 losartan-hydrochlorothi azide (HYZAAR) 100-25 mg per tablet, Take 1 tablet by mouth once daily. , Disp: , Rfl: PAST MEDICAL HISTORY Diagnosis Date Arthritis Atrial fibrillation (HCC) Class 2 obesity due to excess calories without serious comorbidity with body mass index (BMI) of 35.0 to 35.9 in adult 08/24/2017 Essential hypertension 08/24/2017 HTN (hypertension) REMY (obstructive sleep apnea) Paroxysmal atrial fibrillation (HCC) 08/24/2017 SVT (supraventricular tachycardia) (HCC) controlled on amiodarone FAMILY HISTORY Problem Relation Age of Onset other (Lymphoma) Father Diabetes Mother Diabetes Maternal Grandmother Social History Tobacco Use Smoking status: Never Smokeless tobacco: Never Lives with and 36yo son, no tobacco or EtOH PE: BP 127/70 (BP Site: Left Arm, BP Position: Sitting, BP Cuff Size: Large Adult) Pulse 64 Wt 123.2 kg (271 lb 9.7 oz) BMI 33.95 kg/m? Last 3 Encounter Wt Readings: Date: Wt: 08/16/2024 123.2 kg (271 lb 9.7 oz) 11/23/2019 128.4 kg (283 lb) 06/30/2019 128.4 kg (283 lb) Gen - NAD, comfortable, pleasant Neck - No visible goiter, nodular, 25g CVS - RRR no murmurs Lung - CTAB, no rales Abd - +BS, soft, nt/nd Skin - normal texture, normal temperature MSK - 5/5 UE proximal muscle strength bilaterally, No CVA tenderness Neuro - normal relaxation phase of bilateral UE reflexes, No hand tremor Latest Ref Rng 06/24/2017 08/28/2017 08/29/2017 08/30/2017 12/10/2017 08/31/2018 Glucose 74 - 99 mg/dL 72 (L) 133 (H) 117 (H) 94 84 BUN 9 - 24 mg/dL 16 14 13 15 13 Creatinine 0.73 - 1.22 mg/dL 1.18 1.08 1.18 1.00 1.28 (H) 1.02 Sodium 136 - 144 mmol/L 143 141 137 140 140 Potassium 3.7 - 5.1 mmol/L 4.3 3.5 (L) 3.5 (L) 3.6 (L) 4.0 Chloride 97 - 105 mmol/L 103 102 100 101 102 CO2 22 - 30 mmol/L 30 24 25 25 25 Anion Gap 9 - 18 mmol/L 10 15 12 14 13 Calcium 8.5 - 10.2 mg/dL 10.2 8.6 9.0 8.8 10.2 eGFR- >60 >60 >60 >60 >60 >60 eGFR-All Other Races . >60 >60 >60 >60 56 >60 OSH Labs: 07/18/24 - 24 hour urine Calcim 310.4mg 07/07/24 - Ca 10.5, PTH 91, Vit D 36.6, Cr 1.13 Bang was seen today for thyroid problem. Diagnoses and all orders for this visit: Primary hyperparathyroidism (HCC) -labs c/w primary hyperparathyroidism -given 24 hr urine calcium >300mg would recommend parathyroidectomy -check serum labs today -NM Parathyroid scan ordered for localization -referral to endocrine surgery placed for parathyroidectomy -will try to get records of recent DXA scan at [facility] - RENAL FUNCTION PANEL; Future - VITAMIN D 25 HYDROXY; Future - PTH INTACT; Future - NM PARATHYROID W SPECT/CT; Future - CONSULT TO ENDOCRINE SURGERY; Future Hypercalcemia - NM PARATHYROID W SPECT/CT; Future F/u 6 months The assessment and benefits/risks of the plan were discussed with the patient who expressed understanding and was agreeable to that which is noted above. Herber Donald MD 08/16/2024 3:31 PM Signed Please get blood test today Will check Parathyroid scan Will schedule you with Dr Geneva Butler in endocrine surgery Allergies As of Date: 08/16/2024 Noted Allergy Reaction PENICILLINS 04/07/2014 4 - Hives INSECTS EXTRACT 10/31/2020 14 - Other: See Comments Comments: Insect protein - eyes swell and blistering Date Reviewed: 08/16/2024 (more content not included)... Normal [facility] Laboratory - Chemistry and C hemistry - challengeon 08-16-2024 Albumin [Mass/Vol] 4.5 g/dL 3.9-4.9 [facility] Calcium [Mass/Vol] 11.2 mg/dL High 8.5-10.2 [facility] Chloride [Moles/Vol] 107 mmol/L 98-107 [facility] CO2 [Moles/Vol] 23 mmol/L 22-30 [facility] Creatinine [Mass/Vol] 1.55 mg/dL High 0.73-1.22 [facility] Glucose [Mass/Vol] 89 mg/dL 74-99 [facility] Comment on above: The [place] Diabete s Association (ADA) provides guidance for cutoff values for fasting glucose and random glucose. The ADA defines fasting as no caloric intake for at least 8 hours. Fasting plasma glucose results between 100 to 125 mg/dL indicate increased risk for diabetes (prediabetes).Fasting plasma glucose results greater than or equal to 126 mg/dL meet the criteria for diagnosis of diabetes. In the absence of unequivocal hyperglycemia, results should be confirmed by repeat testing. In a patient with classic symptoms of hyperglycemia or hyperglycemic crisis, random plasma glucose results greater than or equal to 200 mg/dL meet the criteria for diagnosis of diabetes.Reference: Standards of Medical Care in Diabetes 2016, [place] Diabetes Association. Diabetes Care. 2016.39(Suppl 1). Potassium [Moles/Vol] 4.3 mmol/L 3.7-5.1 [facility] Sodium [Moles/Vol] 143 mmol/L 136-144 [facility] Urea nitrogen [Mass/Vol] 21 mg/dL 01-11 [facility] No Panel Informationon 08-16 25-Hydroxy Vitamin D Total 32.7 ng/mL 31.0-80.0 [facility] Comment on above: Classification of 25 [place] Vitamin D status: Deficiency/Insufficiency: < or = 30 ng/ml.Sufficiency/Optimal Levels: 31-80 ng/mLToxicity: > 100 ng/mL. Test performed by chemiluminescent immunoassay. Estimated GFR (CKD-EPI) 47 mL/min/1.73m??? Low >=60 [facility] Comment on above: Estimated Glomerular Filtration Rate (eGFR) is calculated using the 2020 CKD-EPI creatinine equation. This equation utilizes serum creatinine, sex, and age as parameters. The creatinine assay has traceable calibration to isotope dilution-mass spectrometry. Refer to KDIGO guidelines for clinical interpretation. In patients with unstable renal function, e.g. those with acute kidney injury, the eGFR may not accurately reflect actual GFR. Parathyroid Hormone (Intact) 106 pg/mL High [facility] Phosphorus Level 2.2 mg/dL Low 2.7-4.8 [facility] PTH-Intact [facility] - Parathyrin.intact [Mass/Vol] 106 pg/mL High [facility] Comment on above: Order Comment: Speci men Type: BLOOD SPECIMENOrdering Facility: [facility] Address: [address] [place] [address] [place] [address] Performed By: #### 2 731-8, 52940-8 ####[facility] [id number] [place] [address] [place] Renal function 2000 panelon 08-16-2024 Albumin [Mass/Vol] 4.5 g/dL Normal 3.9-4.9 [facility] Comment on above: Order Comment: Speci men Type: BLOOD SPECIMENOrdering Facility: [facility] Address: [address] [place] [address] Performed By: #### 2 731-8, 50554-1 ####[facility] [id number] [place] [id number] [place] Anion gap [Moles/Vol] 13 mmol/L Normal 8-15 [facility] Comment on above: Order Comment: Speci men Type: BLOOD SPECIMENOrdering Facility: [facility] Address: [address] [place] [address] Performed By: #### 2 731-8, 58169-9 ####[facility] [id number] [place] [address] [place] Calcium [Mass/Vol] 11.2 mg/dL High 8.5-10.2 [facility] Comment on above: Order Comment: Speci men Type: BLOOD SPECIMENOrdering Facility: [facility] Address: [address] [place] [address] Performed By: #### 2 731-8, 07100-2 ####[facility] [id number] [place] [id number] [place] Chloride [Moles/Vol] 107 mmol/L Normal 98-107 [facility] Comment on above: Order Comment: Speci men Type: BLOOD SPECIMENOrdering Facility: [facility] Address: [address] [place] [address] Performed By: #### 2 731-8, 90396-1 ####[facility] [id number] [facility] [place] [id number] [place] CO2 [Moles/Vol] 23 mmol/L Normal 22-30 [facility] Comment on above: Order Comment: Speci men Type: BLOOD SPECIMENOrdering Facility: [facility] Address: [address] [place] [address] Performed By: #### 2 731-8, 05862-0 ####[facility] [id number] [address] [address] [place] Creatinine [Mass/Vol] 1.55 mg/dL High 0.73-1.22 [facility] Comment on above: Order Comment: Speci men Type: BLOOD SPECIMENOrdering Facility: [facility] Address: [address] [place] [address] Performed By: #### 2 731-8, 58154-0 ####[facility] [id number] [place] [address] [place] Creatinine and Glomerular filtration rate.predicted panel (S/P/Bld) 47 mL/min/1.73m??? Low >=60 [facility] Comment on above: Order Comment: Speci men Type: BLOOD SPECIMENOrdering Facility: [facility] Address: [address] [place] [address] Result Comment: Lenora mated Glomerular Filtration Rate (eGFR) is calculated using the 2020 CKD-EPI creatinine equation. This equation utilizes serum creatinine, sex, and age as parameters. The creatinine assay has traceable calibration to isotope dilution-mass spectrometry. Refer to KDIGO guidelines for clinical interpretation. In patients with unstable renal function, e.g. those with acute kidney injury, the eGFR may not accurately reflect actual GFR. Performed By: #### 2 731-8, 72795-9 ####[facility] [id number] [address] [address] [place] Glucose [Mass/Vol] 89 mg/dL Normal 74-99 [facility] Comment on above: Order Comment: Speci men Type: BLOOD SPECIMENOrdering Facility: [facility] Address: [address] [place] [address] Result Comment: The [place] Diabetes Association (ADA) provides guidance for cutoff [...] Standards of Medical Care in Diabetes 2016, [place] Diabetes Association. Diabetes Care. 2016.39(Suppl 1). Performed By: #### 2 731-8, 52974-5 ####[facility] [id number] [place] [address] [place] Phosphate [Mass/Vol] 2.2 mg/dL Low 2.7-4.8 [facility] Comment on above: Order Comment: Speci men Type: BLOOD SPECIMENOrdering Facility: [facility] Address: [address] [place] [address] Performed By: #### 2 731-8, 82898-5 ####[facility] [id number] [place] [address] [place] Potassium [Moles/Vol] 4.3 mmol/L Normal 3.7-5.1 [facility] Comment on above: Order Comment: Speci men Type: BLOOD SPECIMENOrdering Facility: [facility] Address: [address] [place] [address] Performed By: #### 2 731-8, 16497-1 ####[facility] [id number] [address] [address] [place] Sodium [Moles/Vol] 143 mmol/L Normal 136-144 [facility] Comment on above: Order Comment: Speci men Type: BLOOD SPECIMENOrdering Facility: [facility] Address: [address] [place] [address] Performed By: #### 2 731-8, 08430-4 ####[facility] [id number] [place] [id number] [place] Urea nitrogen [Mass/Vol] 21 mg/dL Normal 9-24 [facility] Comment on above: Order Comment: Speci men Type: BLOOD SPECIMENOrdering Facility: [facility] Address: [address] [place] [address] Performed By: #### 2 731-8, 40619-8 ####[facility] [id number] [place] [id number] [place] Serum or plasma anion gap de terminationon 08-16-2024 Anion gap [Moles/Vol] Serum or plasma anion gap determination 8-15 [facility] Serum or plasma calcitriol m easurement (mass/volume)on 08-16-2024 1,25-dihydroxyvitami n D3 [Mass/Vol] Serum or plasma calcitriol measurement (mass/volume) 19.9-79.3 [facility] Office Visiton 07-08-2024 Follow-up visit [id number] Lucinda Sharma E 1950 M Date Provider Department Center 07/08/2024 [id number], ADAM ARAM Ruth [facility] Family History Problem Relation Age of Onset Coronary artery disease Other Hypertension Other Family Status - Relation Status Age at Other Level of Service:65263 [place] OFFICE/OUTPATIENT ESTABLISHED LOW MDM 20 MIN Normal [facility] Estimated glomerular filtrat ion rate (GFR) non- Americanon 07-07-2024 GFR/1.73 sq M.predicted among non-blacks MDRD (S/P/Bld) [Vol rate/Area] Estimated glomerular filtration rate (GFR) non- >=60 mL/min/1.73m 2 [facility] Laboratory - Chemistry and C hemistry - challengeon 07-07-2024 Calcium [Mass/Vol] 10.5 mg/dL High 8.5-10.1 [facility] Chloride [Moles/Vol] 106 mmol/L 98-107 [facility] CO2 [Moles/Vol] 29.4 mmol/L 21.0-32.0 [facility] Creatinine [Mass/Vol] 1.13 mg/dL 0.70-1.30 [facility] GFR/1.73 sq M.predicted MDRD (S/P/Bld) [Vol rate/Area] mL/min/{1.73_m2} >=60 mL/min/1.73m 2 [facility] Glucose [Mass/Vol] 105 mg/dL 74-106 [facility] Potassium [Moles/Vol] 4.1 mmol/L 3.5-5.1 [facility] Sodium [Moles/Vol] 142 mmol/L 136-145 [facility] Urea nitrogen [Mass/Vol] 21.0 mg/dL High 7.0-18.0 [facility] Urea nitrogen/Creatinine [Mass ratio] 18.6 mg/mg [facility] No Panel Informationon 07-07 25-Hydroxy Vitamin D Total 36.6 ng/mL [facility] Comment on above: <20 ng/mL Vit D defi cient20-<30 ng/mL Vit D pwgrdjicktzv31-267 ng/mL Vit D sufficient>100 ng/mL Potential Toxicity Parathyroid Hormone (Intact) 91 pg/mL Abnormal 15-65 [facility] Comment on above: Performed at: [facility] [address] [id number] Director: Shahab Rodney PhD, Phone: [phone] Serum or plasma anion gap de terminationon 07-07-2024 Anion gap [Moles/Vol] Serum or plasma anion gap determination [facility] Office Visiton 06-14-2024 Follow-up visit [id number] Lucinda Sharma 1950 M Date Provider Department Center 06/14/2024 ALPESH MARQUEZ ARAM Panda Family History Problem Relation Age of Onset Coronary artery disease Other Hypertension Other Family Status - Relation Status Age at Other Level of Service:34929 [place] OFFICE/OUTPATIENT ESTABLISHED LOW MDM 20 MIN Normal [facility] ALL THYROID STIM HORMONEon 1 06-08-2023 TSH Qn 0.963 m[IU]/L [facility] Albumin [Mass/volume] in Ser um or Plasmaon 04-07-2024 Albumin [Mass/Vol] Albumin [Mass/volume ] in Serum or Plasma 2.9-4.4 [facility] Estimated glomerular filtrat ion rate (GFR) non- Americanon 04-07-2024 GFR/1.73 sq M.predicted among non-blacks MDRD (S/P/Bld) [Vol rate/Area] Estimated glomerular filtration rate (GFR) non- >=60 mL/min/1.73m 2 [facility] - Chemistry and C hemistry - challengeon 04-07-2024 Calcium [Mass/Vol] 10.0 mg/dL 8.5-10.1 [facility] Chloride [Moles/Vol] 107 mmol/L 98-107 [facility] CO2 [Moles/Vol] 29.3 mmol/L 21.0-32.0 [facility] Cobalamin (Vitamin B12) [Mass/Vol] 748 pg/mL 232-1245 [facility] Comment on above: Performed at: [facility] [address] [id number] Director: Shahab Rodney PhD, Phone: [phone] Creatinine [Mass/Vol] 0.90 mg/dL 0.70-1.30 [facility] GFR/1.73 sq M.predicted MDRD (S/P/Bld) [Vol rate/Area] mL/min/{1.73_m2} >=60 mL/min/1.73m 2 [facility] Glucose [Mass/Vol] 99 mg/dL 74-106 [facility] Potassium [Moles/Vol] 3.7 mmol/L 3.5-5.1 [facility] Sodium [Moles/Vol] 141 mmol/L 136-145 [facility] TSH Qn 0.963 m[IU]/L 0.358-3.740 [facility] Urea nitrogen [Mass/Vol] 12.0 mg/dL 7.0-18.0 [facility] Urea nitrogen/Creatinine [Mass ratio] 13.3 mg/mg [facility] Bilirubin Ql (U) Negative NEGATIVE [facility] Glucose (U) [Mass/Vol] Negative NEGATIVE [facility] Ketones Ql (U) Negative NEGATIVE [facility] pH (U) 6.5 [pH] 5.0-9.0 [facility] Specific gravity (U) [Rel density] 1.020 1.005-1.025 [facility] Urobilinogen Qn (U) 0.2 {Andre'U}/dL 0.2-1.0 [facility] - Specimen inform ationon 04-07-2024 Appearance (U) CLEAR CLEAR [facility] Color (U) LT. YELLOW YELLOW [facility] - Urinalysison Leukocyte esterase Test strip Ql (U) Negative NEGATIVE [facility] Mucus Ql (Urine sed) NONE SEEN NONE SEEN [facility] Nitrite Ql (U) Negative NEGATIVE [facility] Protein Ql (U) Negative NEG/TRACE [facility] No Panel Informationon 04-07 25-Hydroxy Vitamin D Total 18.7 ng/mL [facility] Comment on above: <20 ng/mL Vit D defi cient20-<30 ng/mL Vit D noaancgwvbvz56-120 ng/mL Vit D sufficient>100 ng/mL Potential Toxicity Folate 23.60 ng/mL 8.60-58.90 [facility] Parathyroid Hormone (Intact) 88 pg/mL Abnormal 15-65 [facility] Comment on above: Performed at: [place] [facility] [address] [id number] Director: Shahab Rodney PhD, Phone: [phone] Protein Electrophoresis M-Harry Not Observed g/dL Not Observed [facility] Protein Electrophoresis Note Comment . [facility] Comment on above: Protein electrophore sis scan will follow via computer,mail, or plugger worker delivery.Performed at: [place] [facility] [address] [id number] Director: Shahab Rodney PhD, Phone: [phone] Urine Bacteria NONE SEEN #/HPF NONE SEEN [facility] Urine Occult Blood Negative NEGATIVE [facility] Urine RBC NONE SEEN #/HPF 0-2 [facility] Urine Squamous Epithelial Cells RARE #/LPF NONE/RARE [facility] Urine WBC NONE SEEN #/HPF NONE SEEN [facility] Protein [Mass/volume] in Ser um or Plasmaon 04-07-2024 Protein [Mass/Vol] Protein [Mass/volume ] in Serum or Plasma 6.0-8.5 [facility] Serum globulin measurement ( mass/volume)on 04-07-2024 Globulin (S) [Mass/Vol] Serum globulin measurement (mass/volume) 2.2-3.9 [facility] Serum or plasma albumin/glob ulin mass ratioon 04-07-2024 Albumin/Globulin [Mass ratio] Serum or plasma albumin/globulin mass ratio 0.7-1.7 [facility] Serum or plasma alpha 1 glob ulin measurement by electrophoresis (mass/volume)on 04-07-2024 Alpha 1 globulin Elph [Mass/Vol] Serum or plasma alpha 1 globulin measurement by electrophoresis (mass/volume) 0.0-0.4 [facility] Serum or plasma alpha 2 glob ulin measurement by electrophoresis (mass/volume)on 04-07-2024 Alpha 2 globulin Elph [Mass/Vol] Serum or plasma alpha 2 globulin measurement by electrophoresis (mass/volume) 0.4-1.0 [facility] Serum or plasma anion gap de terminationon 04-07-2024 Anion gap [Moles/Vol] Serum or plasma anion gap determination [facility] Serum or plasma beta globuli n measurement by electrophoresis (mass/volume)on 04-07-2024 Beta globulin Elph [Mass/Vol] Serum or plasma beta globulin measurement by electrophoresis (mass/volume) 0.7-1.3 [facility] Serum or plasma gamma globul in measurement by electrophoresis (mass/volume)on 04-07-2024 Gamma globulin Elph [Mass/Vol] Serum or plasma gamma globulin measurement by electrophoresis (mass/volume) 0.4-1.8 [facility] Office Visiton 03-15-2024 Follow-up visit [id number] Lucinda Sharma 1950 M Date Provider Department Center 03/15/2024 DREA STOVALL [facility] Family History Problem Relation Age of Onset Coronary artery disease Other Hypertension Other Family Status - Relation Status Age at Other Level of Service:93836 [place] OFFICE/OUTPATIENT ESTABLISHED LOW MDM 20 MIN Reason for Visit and Comments: Follow-up [768729] - 3 month follow up Atrial Fibrillation [80] Normal [facility] Basophils Auto (Bld) [#/Vol] on 03-10-2024 Basophils (Bld) [#/Vol] Automated basophil count 0.0-0.1 [facility] Basophils/100 WBC Auto (Bld) on 03-10-2024 Basophils/100 WBC (Bld) Automated basophil % 0.2-2.0 [facility] Cholesterol in LDL Calc [Mas s/Vol]on 03-10-2024 Cholesterol in LDL [Mass/Vol] Cholesterol in LDL [Mass/volume] in Serum or Plasma by calculation [facility] Comment on above: <100 mg/dl [id number] 0-129 mg/dl NEAR OR ABOVE [id number] mg/dl BORDERLINE [id number] mg/dl HIGH>190 mg/dl VERY HIGH Cholesterol in VLDL Calc [Ma ss/Vol]on 03-10-2024 Cholesterol in VLDL [Mass/Vol] Cholesterol in VLDL [Mass/volume] in Serum or Plasma by calculation [facility] Eosinophils/100 WBC Auto (Bl d)on 03-10-2024 Eosinophils/100 WBC (Bld) Automated eosinophil % 0.9-7.0 [facility] Erythrocyte distribution wid th Auto (RBC) [Ratio]on 03-10-2024 Erythrocyte distribution width (RBC) [Ratio] Erythrocyte distribution width [Ratio] by Automated count 11.0-15.0 [facility] Estimated glomerular filtrat ion rate (GFR) non- Americanon 03-10-2024 GFR/1.73 sq M.predicted among non-blacks MDRD (S/P/Bld) [Vol rate/Area] Estimated glomerular filtration rate (GFR) non- >=60 mL/min/1.73m 2 [facility] Globulin Calc (S) [Mass/Vol] on 03-10-2024 Globulin (S) [Mass/Vol] Serum globulin measurement by calculation (mass/volume) [facility] Hematocrit Auto (Bld) [Volum e fraction]on 03-10-2024 Hematocrit (Bld) [Volume fraction] Hematocrit [Volume Fraction] of Blood by Automated count 42.0-54.0 [facility] Hemoglobin [Mass/volume] in Bloodon 03-10-2024 Hemoglobin (Bld) [Mass/Vol] Hemoglobin [Mass/volume] in Blood 14.0-18.0 [facility] - Chemistry and C hemistry - challengeon 03-10-2024 Albumin [Mass/Vol] 3.5 g/dL 3.4-5.0 [facility] ALP [Catalytic activity/Vol] 58 U/L 46-116 [facility] ALT [Catalytic activity/Vol] 32 U/L 16-63 [facility] AST [Catalytic activity/Vol] 16 U/L 15-37 [facility] Bilirubin [Mass/Vol] 0.8 mg/dL 0.2-1.0 [facility] Calcium [Mass/Vol] 10.4 mg/dL High 8.5-10.1 [facility] Chloride [Moles/Vol] 107 mmol/L 98-107 [facility] Cholesterol [Mass/Vol] 199 mg/dL <=200 [facility] Cholesterol in HDL [Mass/Vol] 53 mg/dL 40-60 [facility] Comment on above: > or =60 mg/dl - LOW CARDIOVASCULAR RISK<40 mg/dl - HIGH CARDIOVASCULAR RISK CO2 [Moles/Vol] 28.7 mmol/L 21.0-32.0 [facility] Creatinine [Mass/Vol] 0.85 mg/dL 0.70-1.30 [facility] GFR/1.73 sq M.predicted MDRD (S/P/Bld) [Vol rate/Area] mL/min/{1.73_m2} >=60 mL/min/1.73m 2 [facility] Glucose [Mass/Vol] 100 mg/dL 74-106 [facility] Potassium [Moles/Vol] 4.0 mmol/L 3.5-5.1 [facility] Protein [Mass/Vol] 6.8 g/dL 6.4-8.2 [facility] Sodium [Moles/Vol] 143 mmol/L 136-145 [facility] Triglyceride [Mass/Vol] 100 mg/dL <=150 [facility] TSH Qn 0.915 m[IU]/L 0.358-3.740 [facility] Urea nitrogen [Mass/Vol] 15.0 mg/dL 7.0-18.0 [facility] Urea nitrogen/Creatinine [Mass ratio] 17.6 mg/mg [facility] Laboratory - Hematology and Cell countson 03-10-2024 Immature granulocytes/100 WBC (Bld) 0.2 % 0.0-0.5 [facility] Leukocytes [#/volume] correc evelyne for nucleated erythrocytes in Blood by Automated counon 03-10-2024 WBC corrected for nucl RBC Auto (Bld) [#/Vol] Leukocytes [#/volume] corrected for nucleated erythrocytes in Blood by Automated coun 4.0-11.0 [facility] Lymphocytes Auto (Bld) [#/Vo l]on 03-10-2024 Lymphocytes (Bld) [#/Vol] Lymphocytes [#/volume] in Blood by Automated count 1.2-3.8 [facility] Lymphocytes/100 WBC Auto (Bl d)on 03-10-2024 Lymphocytes/100 WBC (Bld) Lymphocytes/100 leukocytes in Blood by Automated count 20.5-60.0 [facility] MCH Auto (RBC) [Entitic mass ]on 03-10-2024 MCH (RBC) [Entitic mass] MCH [Entitic mass] by Automated count 25.9-34.0 [facility] MCHC Auto (RBC) [Mass/Vol]on 03-10-2024 MCHC (RBC) [Mass/Vol] MCHC [Mass/volume] by Automated count 29.9-35.2 [facility] MCV Auto (RBC) [Entitic vol] on 03-10-2024 MCV (RBC) [Entitic vol] MCV [Entitic volume] by Automated count High 80.0-94.0 [facility] Monocytes Auto (Bld) [#/Vol] on 03-10-2024 Monocytes (Bld) [#/Vol] Automated blood monocyte count 0.3-0.8 [facility] Monocytes/100 WBC Auto (Bld) on 03-10-2024 Monocytes/100 WBC (Bld) Automated monocyte % 1.7-12.0 [facility] Neutrophils Auto (Bld) [#/Vo l]on 03-10-2024 Neutrophils (Bld) [#/Vol] Neutrophils [#/volume] in Blood by Automated count 1.4-6.5 [facility] Neutrophils/100 WBC Auto (Bl d)on 03-10-2024 Neutrophils/100 WBC (Bld) Automated neutrophil % 43.0-75.0 [facility] No Panel Informationon 03-10 Eosinophils # (Auto) 0.2 10 3/uL [facility]7 [facility] Imm[facility] Granulocyte # (Auto) 0.01 10 3/uL 0.00-0.03 [facility] Prostate Specific Antigen Screen 1.32 ng/mL <=4.00 [facility] Platelet mean volume Auto (B ld) [Entitic vol]on 03-10-2024 Platelet mean volume (Bld) [Entitic vol] Platelet mean volume [Entitic volume] in Blood by Automated count Low 9.5-13.5 [facility] Platelets Auto (Bld) [#/Vol] on 03-10-2024 Platelets (Bld) [#/Vol] Platelets [#/volume] in Blood by Automated count 150-450 [facility] RBC Auto (Bld) [#/Vol]on RBC (Bld) [#/Vol] Erythrocytes [#/volu me] in Blood by Automated count Low 4.70-6.10 [facility] Serum or plasma albumin/glob ulin mass ratioon 03-10-2024 Albumin/Globulin [Mass ratio] Serum or plasma albumin/globulin mass ratio [facility] Serum or plasma anion gap de terminationon 03-10-2024 Anion gap [Moles/Vol] Serum or plasma anion gap determination [facility] Serum or plasma total choles terol/high density lipoprotein (HDL) cholesterol mass ranjit 03-10-2024 Cholesterol.total/Ch olesterol in HDL [Mass ratio] Serum or plasma total cholesterol/high density lipoprotein (HDL) cholesterol mass rat [facility] Comment on above: 3.3 - 4.4 LOW RISK4. 4 - 7.1 AVERAGE RISK7.1 - 11.0 MODERATE RISK>11.0 HIGH RISK EMG 2 Extremitieson 02-24-20 EMG/NCS BLE Severe sensory-motor polyneuropathy. On license of [facility] NVC 9-10 Nerveson 02-24-2024 EMG/NCS BLE Severe sensory-motor polyneuropathy. On license of [facility] HPon 12-09-2023 [facility] Electrophysiology Consult Note Reason for visit: [...] This was followed up with [facility] with [facility] protocol which was negative for inducible [...] CVL report IMPRESSION: Successful direct-current cardioversion with jewish of sinus rhythm from atrial fibrillation with no immediate complication. 03/22/12: EPS EP study by Dr. Carmen Flores on 03/22/2012 for evaluation of wide-complex tachycardia in the setting of normal ejection fraction revealed normal HV interval but no evidence of any AH jump suggestive of dual AV node physiology and no tachycardia was induced. This was followed up with [facility] with [facility] protocol which was negative for inducible [...] (paroxysmal ventricular tachycardia) (CMS/HCC) SVT (supraventricular tachycardia) ([facility]/HCC) Tachycardia PSH: Past Surgical History: Procedure Laterality Date CARDIAC CATHETERIZATION (more content not included)... Normal [facility] NURSNOTEon 12-09-2023 NURSNOTE RN educated pt on d/ c instructions. RN encouraged pt to voice any questions or concerns. Pt verbalizes no questions or concerns at this time. Pt walked off of unit with all of belongings. Normal [facility] 36on 12-02-2023 36 Regarding echo resul t from 11/24/2023: NILA Avitia MA; Alpesh Davis MD Severe biatrial enlargement LV systolic function low end of normal 50-55% RV normal size and function, normal rt sided pressures- no fluid overload LM on patient's VM. Normal [facility] Basophils Auto (Bld) [#/Vol] on 12-01-2023 Basophils (Bld) [#/Vol] 0.0 10 3/uL 0.0-0.1 [facility] Basophils/100 WBC Auto (Bld) on 12-01-2023 Basophils/100 WBC (Bld) 0.5 % 0.2-2.0 [facility] Eosinophils/100 WBC Auto (Bl d)on 12-01-2023 Eosinophils/100 WBC (Bld) 1.1 % 0.9-7.0 [facility] Erythrocyte distribution wid th Auto (RBC) [Ratio]on 12-01-2023 Erythrocyte distribution width (RBC) [Ratio] 12.8 % 11.0-15.0 [facility] Hematocrit Auto (Bld) [Volum e fraction]on 12-01-2023 Hematocrit (Bld) [Volume fraction] 40.8 % Low 42.0-54.0 [facility] Hemoglobin [Mass/volume] in Bloodon 12-01-2023 Hemoglobin (Bld) [Mass/Vol] 13.6 g/dL Low 14.0-18.0 [facility] Laboratory - Hematology and Cell countson 12-01-2023 Immature granulocytes/100 WBC (Bld) 0.3 % 0.0-0.5 [facility] Leukocytes [#/volume] correc evelyne for nucleated erythrocytes in Blood by Automated counon 12-01-2023 WBC corrected for nucl RBC Auto (Bld) [#/Vol] 6.4 10 3/uL 4.0-11.0 [facility] Lymphocytes Auto (Bld) [#/Vo l]on 12-01-2023 Lymphocytes (Bld) [#/Vol] 1.3 10 3/uL 1.2-3.8 [facility] Lymphocytes/100 WBC Auto (Bl d)on 12-01-2023 Lymphocytes/100 WBC (Bld) 20.7 % 20.5-60.0 [facility] MCH Auto (RBC) [Entitic mass ]on 12-01-2023 MCH (RBC) [Entitic mass] 31.7 pg 25.9-34.0 [facility] MCHC Auto (RBC) [Mass/Vol]on 12-01-2023 MCHC (RBC) [Mass/Vol] 33.3 g/dL 29.9-35.2 [facility] MCV Auto (RBC) [Entitic vol] on 12-01-2023 MCV (RBC) [Entitic vol] 95.1 fL High 80.0-94.0 [facility] Monocytes Auto (Bld) [#/Vol] on 12-01-2023 Monocytes (Bld) [#/Vol] 0.8 10 3/uL 0.3-0.8 [facility] Monocytes/100 WBC Auto (Bld) on 12-01-2023 Monocytes/100 WBC (Bld) 11.8 % 1.7-12.0 [facility] Neutrophils Auto (Bld) [#/Vo l]on 12-01-2023 Neutrophils (Bld) [#/Vol] 4.2 10 3/uL 1.4-6.5 [facility] Neutrophils/100 WBC Auto (Bl d)on 12-01-2023 Neutrophils/100 WBC (Bld) 65.6 % 43.0-75.0 [facility] No Panel Informationon 11-30 Eosinophils # (Auto) 0.1 10 3/uL 0.0-0.7 [facility] Immature Granulocyte # (Auto) 0.02 10 3/uL 0.00-0.03 [facility] Platelet mean volume Auto (B ld) [Entitic vol]on 12-01-2023 Platelet mean volume (Bld) [Entitic vol] 8.9 fL Low 9.5-13.5 [facility] Platelets Auto (Bld) [#/Vol] on 12-01-2023 Platelets (Bld) [#/Vol] 265 10 3/uL 150-450 [facility] RBC Auto (Bld) [#/Vol]on RBC (Bld) [#/Vol] 4.29 10 6/uL Low 4.70-6.10 [facility] CNOVon 01-13-2023 CNOV Office Visit (ORFWHP ) BANG SHARMA ([id number]) 1950 M Date Time Provider Department 01/13/23 2:30 PM HARESH PINEDA ORFP During your visit today, we recorded the following information about you: Haresh Pineda MD 01/13/2023 4:19 PM Signed Orthopaedic Surgery Follow-Up Clinic Note Surgery/Date: 08/27/2017 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 (CPT 92397 - 22) Placement of Prophylactic Carbon Fiber Tibial Nail, Right Tibia (CPT 38920) High Speed Ehsan and Adjuvant Treatment with 10% H202 (CPT 54012) Neruolysis and Dissection of Deep Peroneal Nerve (CPT 71271) Right Iliac Crest Marrow Aspiration/[place] ( CPT 41986) Diagnosis: Right Tibial Diaphysis Cartilage Lesion with [...] the date of the service which included [id number] patient care, completing clinical documentation, obtaining and/or reviewing separately obtained history, performing a medically appropriate examination, counseling and educating the patient/family/caregive r, ordering medications, tests, or procedures, independently interpreting results (not separately reported), and communicating results to the patient/family/caregive r. The counseled portion is detailed in the plan, as above, that I have personally verified and edited as appropriate. Any information added by medical student, resident, nurse, E COMMERCE ANALYST/PA-C that I have placed my signature directly below I have verified and either instructed them to document in a scribe function or document appropriately in the chart during the patient visit. Haresh Beavers (more content not included)... Normal [facility] FLECAINEon 06-24-2022 FLECAINIDE 0.39 ug/ml Normal 0.20 - 1.00 [facility] Comment on above: Result Comment: Flec ainide reported as flecainide acetate. The reference range also is defined as flecaininde acetate. This test was developed and its performance characteristics determined by [facility]. It has not been cleared or approved by the Food and Drug Administration. Performed By: #### T SH, BMP, LIPID, ALT #### [facility] [address] [place] [address] Dr. Fidel Paige CBC AUTO DIFFon 06-09-2022 BASO # 0.0 103/ul Normal 0.0-0.1 [facility] Comment on above: Performed By: #### C BC #### [facility] [address] [place] [address] Dr. Fidel Paige Basophils/100 WBC (Bld) 0.6 % Normal 0.2-2.0 [facility] Comment on above: Performed By: #### C BC #### [facility] [address] [place] [address] Dr. Fidel Paige EO # 0.1 103/ul Normal 0.0-0.7 [facility] Comment on above: Performed By: #### C BC #### [facility] [address] [place] [address] Dr. Fidel Paige Eosinophils/100 WBC (Bld) 2.8 % Normal 0.9-7.0 [facility] Comment on above: Performed By: #### C BC #### [facility] [address] [place] [address] Dr. Fidel Paige Erythrocyte distribution width (RBC) [Ratio] 12.8 % Normal 11.0-15.0 [facility] Comment on above: Performed By: #### C BC #### [facility] [address] [place] [address] Dr. Fidel Paige Hematocrit (Bld) [Volume fraction] 41.9 % Critically low 42.0-54.0 [facility] Comment on above: Performed By: #### C BC #### [facility] [address] [place] [address] Dr. Fidel Paige Hemoglobin (Bld) [Mass/Vol] 14.1 g/dL Normal 14.0-18.0 [facility] Comment on above: Performed By: #### C BC #### [facility] [address] [place] [address] Dr. Fidel Paige IG # 0.01 10e3/ul Normal 0.00-0.03 [facility] Comment on above: Performed By: #### C BC #### [facility] [address] [place] [address] Dr. Fidel Paige IG % 0.2 % Normal 0.0-0.5 [facility] Comment on above: Performed By: #### C BC #### [facility] [address] [place] [address] Dr. Fidel Paige LYMPH # 1.4 103/ul Normal 1.2-3.8 [facility] Comment on above: Performed By: #### C BC #### [facility] [address] [place] [address] Dr. Fidel Paige Lymphocytes/100 WBC (Bld) 29.2 % Normal 20.5-60.0 [facility] Comment on above: Performed By: #### C BC #### [facility] [address] [place] [address] Dr. Fidel Paige MANUAL DIFF REQ NO Normal [facility] Comment on above: Performed By: #### C BC #### [facility] [address] [place] [address] Dr. Fidel Paige MCH (RBC) [Entitic mass] 31.3 pg Normal 25.9-34.0 [facility] Comment on above: Performed By: #### C BC #### [facility] [address] [place] [address] Dr. Fidel Paige MCHC (RBC) [Mass/Vol] 33.7 g/dL Normal 29.9-35.2 [facility] Comment on above: Performed By: #### C BC #### [facility] [address] [place] [address] Dr. Fidel Paige MCV (RBC) [Entitic vol] 92.9 fL Normal 80.0-94.0 [facility] Comment on above: Performed By: #### C BC #### [facility] [address] [place] [address] Dr. Fidel Paige MONO # 0.7 103/ul Normal 0.3-0.8 [facility] Comment on above: Performed By: #### C BC #### [facility] [address] [place] [address] Dr. Fidel Paige Monocytes/100 WBC (Bld) 13.4 % Critically high 1.7-12.0 [facility] Comment on above: Performed By: #### C BC #### [facility] [address] [place] [address] Dr. Fidel Paige NEUT # 2.7 103/ul Normal 1.4-6.5 [facility] Comment on above: Performed By: #### C BC #### [facility] [address] [place] [address] Dr. Fidel Paige Neutrophils/100 WBC (Bld) 53.8 % Normal 43.0-75.0 [facility] Comment on above: Performed By: #### C BC #### [facility] [address] [place] [address] Dr. Fidel Paige Platelet mean volume (Bld) [Entitic vol] 8.7 fL Critically low 9.5-13.5 [facility] Comment on above: Performed By: #### C BC #### [facility] [address] [place] [address] Dr. Fidel Paige PLT 278 103/ul Normal 150-450 [facility] Comment on above: Performed By: #### C BC #### [facility] [address] [place] [address] Dr. Fidel Paige RBC 4.51 106/ul Critically low 4.70-6.10 [facility] Comment on above: Performed By: #### C BC #### [facility] [address] [place] [address] Dr. Fidel Paige WBC 4.9 103/ul Normal 4.0-11.0 [facility] Comment on above: Performed By: #### C BC #### [facility] [address] [place] [address] Dr. Fidel Paige MAGNESIUMon 06-09-2022 Magnesium [Mass/Vol] 2.0 mg/dL Normal 1.8-2.4 [facility] Comment on above: Performed By: #### T SH, MG, BMP #### [facility] [address] [place] [address] Dr. Fidel Paige PROF CHEM 8 (BAS METB)on Anion gap [Moles/Vol] 8.2 mmol/L Normal [facility] Comment on above: Performed By: #### T SH, MG, BMP #### [facility] [address] [place] [address] Dr. Fidel Paige Calcium [Mass/Vol] 10.2 mg/dL Critically high 8.5-10.1 [facility] Comment on above: Performed By: #### T SH, MG, BMP #### [facility] [address] [place] [address] Dr. Fidel Paige Chloride [Moles/Vol] 105 mmol/L Normal 98-107 [facility] Comment on above: Performed By: #### T SH, MG, BMP #### [facility] [address] [place] [address] Dr. Fidel Paige CO2 [Moles/Vol] 29.6 mmol/L Normal 21.0-32.0 [facility] Comment on above: Performed By: #### T SH, MG, BMP #### [facility] [address] [place] [address] Dr. Fidel Paige Creatinine [Mass/Vol] 0.81 mg/dL Normal 0.70-1.30 [facility] Comment on above: Performed By: #### T SH, MG, BMP #### [facility] [address] [place] [address] Dr. Fidel Paige EGFR-AF STATELESS >60 Normal >=60 [facility] Comment on above: Performed By: #### T SH, MG, BMP #### [facility] [address] [place] [address] Dr. Fidel Paige EGFR-NON AF STATELESS >60 Normal >=60 [facility] Comment on above: Performed By: #### T SH, MG, BMP #### [facility] [address] [place] [address] Dr. Fidel Paige Glucose [Mass/Vol] 100 mg/dL Normal 74-106 [facility] Comment on above: Performed By: #### T SH, MG, BMP #### [facility] [address] [place] [address] Dr. Fidel Paige Potassium [Moles/Vol] 3.8 mmol/L Normal 3.5-5.1 [facility] Comment on above: Performed By: #### T SH, MG, BMP #### [facility] [address] [place] [address] Dr. Fidel Paige Sodium [Moles/Vol] 139 mmol/L Normal 136-145 [facility] Comment on above: Performed By: #### T SH, MG, BMP #### [facility] [address] [place] [address] Dr. Fidel Paige Urea nitrogen [Mass/Vol] 12.0 mg/dL Normal 7.0-18.0 [facility] Comment on above: Performed By: #### T SH, MG, BMP #### [facility] [address] [place] [address] Dr. Fidel Paige Urea nitrogen/Creatinine [Mass ratio] 14.8 mg/mg Normal [facility] Comment on above: Performed By: #### T SH, MG, BMP #### [facility] [address] [place] [address] Dr. Fidel Paige TSHon 06-09-2022 TSH 0.891 uIU/mL Normal 0.358-3.740 [facility] Comment on above: Performed By: #### T SH, MG, BMP #### [facility] [address] [place] [address] Dr. Fidel Paige CBC AUTO DIFFon 02-07-2022 BASO # 0.0 103/ul Normal 0.0-0.1 [facility] Comment on above: Performed By: #### T SH, BMP, LIPID, ALT #### [facility] [address] [place] [address] Dr. Fidel Paige Basophils/100 WBC (Bld) 0.3 % Normal 0.2-2.0 [facility] Comment on above: Performed By: #### T SH, BMP, LIPID, ALT #### [facility] [address] [place] [address] Dr. Fidel Paige EO # 0.1 103/ul Normal 0.0-0.7 [facility] Comment on above: Performed By: #### T SH, BMP, LIPID, ALT #### [facility] [address] [place] [address] Dr. Fidel Paige Eosinophils/100 WBC (Bld) 2.1 % Normal 0.9-7.0 [facility] Comment on above: Performed By: #### T SH, BMP, LIPID, ALT #### [facility] [address] [place] [address] Dr. Fidel Paige Erythrocyte distribution width (RBC) [Ratio] 13.1 % Normal 11.0-15.0 [facility] Comment on above: Performed By: #### T SH, BMP, LIPID, ALT #### [facility] [address] [place] [address] Dr. Fidel Paige Hematocrit (Bld) [Volume fraction] 45.2 % Normal 42.0-54.0 [facility] Comment on above: Performed By: #### T SH, BMP, LIPID, ALT #### [facility] [address] [place] [address] Dr. Fidel Paige Hemoglobin (Bld) [Mass/Vol] 14.8 g/dL Normal 14.0-18.0 [facility] Comment on above: Performed By: #### T SH, BMP, LIPID, ALT #### [facility] [address] [place] [address] Dr. Fidel Paige IG # 0.02 10e3/ul Normal 0.00-0.03 [facility] Comment on above: Performed By: #### T SH, BMP, LIPID, ALT #### [facility] [address] [place] [address] Dr. Fidel Paige IG % 0.3 % Normal 0.0-0.5 [facility] Comment on above: Performed By: #### T SH, BMP, LIPID, ALT #### [facility] [address] [place] [address] Dr. Fidel Paige LYMPH # 1.4 103/ul Normal 1.2-3.8 [facility] Comment on above: Performed By: #### T SH, BMP, LIPID, ALT #### [facility] [address] [address] [address] Fidel Paige Lymphocytes/100 WBC (Bld) 23.2 % Normal 20.5-60.0 [facility] Comment on above: Performed By: #### T SH, BMP, LIPID, ALT #### [facility] [address] [address] [address] Fidel Paige MANUAL DIFF REQ NO Normal [facility] Comment on above: Performed By: #### T SH, BMP, LIPID, ALT #### [facility] [address] [place] [address] Dr. Fidel Paige MCH (RBC) [Entitic mass] 31.6 pg Normal 25.9-34.0 [facility] Comment on above: Performed By: #### T SH, BMP, LIPID, ALT #### [facility] [address] [place] [address] Dr. Fidel Paige MCHC (RBC) [Mass/Vol] 32.7 g/dL Normal 29.9-35.2 [facility] Comment on above: Performed By: #### T SH, BMP, LIPID, ALT #### [facility] [address] [place] [address] Dr. Fidel Paige MCV (RBC) [Entitic vol] 96.6 fL Critically high 80.0-94.0 [facility] Comment on above: Performed By: #### T SH, BMP, LIPID, ALT #### [facility] [address] [place] [address] Dr. Fidel Paige MONO # 0.7 103/ul Normal 0.3-0.8 [facility] Comment on above: Performed By: #### T SH, BMP, LIPID, ALT #### [facility] [address] [place] [address] Dr. Fidel Paige Monocytes/100 WBC (Bld) 11.7 % Normal 1.7-12.0 [facility] Comment on above: Performed By: #### T SH, BMP, LIPID, ALT #### [facility] [address] [address] [address] Fidel Paige NEUT # 3.6 103/ul Normal 1.4-6.5 [facility] Comment on above: Performed By: #### T SH, BMP, LIPID, ALT #### [facility] [address] [place] [address] Dr. Fidel Paige Neutrophils/100 WBC (Bld) 62.4 % Normal 43.0-75.0 [facility] Comment on above: Performed By: #### T SH, BMP, LIPID, ALT #### [facility] [address] [place] [address] Dr. Fidel Paige Platelet mean volume (Bld) [Entitic vol] 8.8 fL Critically low 9.5-13.5 [facility] Comment on above: Performed By: #### T SH, BMP, LIPID, ALT #### [facility] [address] [place] [address] Dr. Fidel Paige PLT 283 103/ul Normal 150-450 [facility] Comment on above: Performed By: #### T SH, BMP, LIPID, ALT #### [facility] [address] [place] [address] Dr. Fidel Paige RBC 4.68 106/ul Critically low 4.70-6.10 [facility] Comment on above: Performed By: #### T SH, BMP, LIPID, ALT #### [facility] [address] [place] [address] Dr. Fidel Paige WBC 5.8 103/ul Normal 4.0-11.0 [facility] Comment on above: Performed By: #### T SH, BMP, LIPID, ALT #### [facility] [address] [place] [address] Dr. Fidel Paige LIPID PROFILEon 02-07-2022 CHOL-HDL RATIO NORM SEE BELOW Normal [facility] Comment on above: Result Comment: 3.3 - 4.4 LOW RISK 4.4 - 7.1 AVERAGE RISK 7.1 - 11.0 MODERATE RISK >11.0 HIGH RISK Performed By: #### T SH, BMP, LIPID, ALT #### [facility] [address] [place], [place] [id number] Dr. Fidel Paige Cholesterol [Mass/Vol] 191 mg/dL Normal <=200 [facility] Comment on above: Performed By: #### T SH, BMP, LIPID, ALT #### [facility] [address] [address] [address] Fidel Paige Cholesterol in HDL [Mass/Vol] 42 mg/dL Normal 40-60 [facility] Comment on above: Performed By: #### T SH, BMP, LIPID, ALT #### [facility] [address] [address] [address] Fidel Paige Cholesterol in LDL [Mass/Vol] 118.0 mg/dL Normal [facility] Comment on above: Performed By: #### T SH, BMP, LIPID, ALT #### [facility] [address] [place] [address] Dr. Fidel Paige Cholesterol.total/Ch olesterol in HDL [Mass ratio] 4.5 {ratio} Normal [facility] Comment on above: Performed By: #### T SH, BMP, LIPID, ALT #### [facility] [address] [address] [address] Fidel Paige HDL NORMAL > or = 60 mg/dl - LO W CARDIOVASCULAR RISK <40 mg/dl - HIGH CARDIOVASCULAR RISK Normal [facility] Comment on above: Performed By: #### T SH, BMP, LIPID, ALT #### [facility] [address] [address] [address] Fidel Paige LDL CALC NORMAL SEE BELOW Normal [facility] Comment on above: Result Comment: <100 mg/dl OPTIMAL 100 - 129 mg/dl NEAR OR ABOVE OPTIMAL 130 - 159 mg/dl BORDERLINE HIGH 160 - 189 mg/dl HIGH >190 mg/dl VERY HIGH Performed By: #### T SH, BMP, LIPID, ALT #### [facility] [address] [address] [address] Fidel Paige Triglyceride [Mass/Vol] 155 mg/dL Critically high <=150 [facility] Comment on above: Performed By: #### T SH, BMP, LIPID, ALT #### [facility] [address] [address] [address] Fidel Paige VLDL CALC 31.0 mg/dL Normal [facility] Comment on above: Performed By: #### T SH, BMP, LIPID, ALT #### [facility] [address] [address] [address] Fidel Paige PROF CHEM 8 (BAS METB)on Anion gap [Moles/Vol] 11.0 mmol/L Normal [facility] Comment on above: Performed By: #### T SH, BMP, LIPID, ALT #### [facility] [address] [address] [address] Fidel Paige Calcium [Mass/Vol] 10.1 mg/dL Normal 8.5-10.1 [facility] Comment on above: Performed By: #### T SH, BMP, LIPID, ALT #### [facility] [address] [place] [address] Dr. Fidel Paige Chloride [Moles/Vol] 105 mmol/L Normal 98-107 [facility] Comment on above: Performed By: #### T SH, BMP, LIPID, ALT #### [facility] [address] [place] [address] Dr. Fidel Paige CO2 [Moles/Vol] 29.0 mmol/L Normal 21.0-32.0 [facility] Comment on above: Performed By: #### T SH, BMP, LIPID, ALT #### [facility] [address] [place] [address] Dr. Fidel Paige Creatinine [Mass/Vol] 0.85 mg/dL Normal 0.70-1.30 [facility] Comment on above: Performed By: #### T SH, BMP, LIPID, ALT #### [facility] [address] [address] [address] Fidel Paige EGFR-AF STATELESS >60 Normal >=60 [facility] Comment on above: Performed By: #### T SH, BMP, LIPID, ALT #### [facility] [address] [place] [address] Dr. Fidel Paige EGFR-NON AF STATELESS >60 Normal >=60 [facility] Comment on above: Performed By: #### T SH, BMP, LIPID, ALT #### [facility] [address] [place] [address] Dr. Fidel Paige Glucose [Mass/Vol] 101 mg/dL Normal 74-106 [facility] Comment on above: Performed By: #### T SH, BMP, LIPID, ALT #### [facility] [address] [place] [address] Dr. Fidel Paige Potassium [Moles/Vol] 4.0 mmol/L Normal 3.5-5.1 [facility] Comment on above: Performed By: #### T SH, BMP, LIPID, ALT #### [facility] [address] [place] [address] Dr. Fidel Paige Sodium [Moles/Vol] 141 mmol/L Normal 136-145 [facility] Comment on above: Performed By: #### T SH, BMP, LIPID, ALT #### [facility] [address] [place] [address] Dr. Fidel Paige Urea nitrogen [Mass/Vol] 13.0 mg/dL Normal 7.0-18.0 [facility] Comment on above: Performed By: #### T SH, BMP, LIPID, ALT #### [facility] [address] [place] [address] Dr. Fidel Paige Urea nitrogen/Creatinine [Mass ratio] 15.3 mg/mg Normal [facility] Comment on above: Performed By: #### T SH, BMP, LIPID, ALT #### [facility] [address] [place] [address] Dr. Fidel Paige [facility] 02-07-2022 ALT [Catalytic activity/Vol] 26 U/L Normal 16-63 [facility] Comment on above: Performed By: #### T SH, BMP, LIPID, ALT #### [facility] [address] [place] [address] Dr. Fidel [facility]ige [facility] TSH 0.856 uIU/mL Normal 0.358-3.740 [facility] Comment on above: Performed By: #### T SH, BMP, LIPID, ALT #### [facility] [address], [place] [address] Dr. Fidel Paige XR CHEST 2V FRONTAL/LATon [...] by: TIFFANY GUPTA Date: 2021-10-10 12:51 Normal [facility] Vital Signs Date Time Vital Sign Value Performing Clinician Facility 11-01-2024 09:07-0400 Body height 188 cm Pac 6 Work Phone: [facility] 11-01-2024 09:07-0400 Body mass index (BMI) [Ratio] 34.02 kg/m2 Pac 6 Work Phone: [facility] 11-01-2024 09:07-0400 Body temperature 97.59 [degF] Pacc 6 Work Phone: [facility] 11-01-2024 09:07-0400 Body weight 120.2 kg Pac 6 Work Phone: [facility] 11-01-2024 09:07-0400 Diastolic blood pressure 79 mm[Hg] Pac 6 Work Phone: [facility] 11-01-2024 09:07-0400 Heart rate 62 /min Pac 6 Work Phone: [facility] 11-01-2024 09:07-0400 SaO2% (BldA) [Mass fraction] 96 % Pac 6 Work Phone: [facility] 11-01-2024 09:07-0400 Systolic blood pressure 145 mm[Hg] Pac 6 Work Phone: [facility] 09-15-2024 11:53-0400 Body height 185.42 cm [facility] 09-15-2024 11:53-0400 Body mass index (BMI) [Ratio] 35.2 kg/m2 [facility] 09-15-2024 11:53-0400 Body weight 121.22 kg [facility] 09-15-2024 11:53-0400 Diastolic blood pressure 81 mm[Hg] [facility] 09-15-2024 11:53-0400 Heart rate 73 /min [facility] 09-15-2024 11:53-0400 Respiratory rate 12 /min [facility] 09-15-2024 11:53-0400 SaO2% (BldA) [Mass fraction] 95 % [facility] 09-15-2024 11:53-0400 Systolic blood pressure 146 mm[Hg] [facility] 09-13-2024 11:05-0400 Body height 189.2 cm Geneva Butler MD Work Phone: [facility] 09-13-2024 11:05-0400 Body mass index (BMI) [Ratio] 34.42 kg/m2 Geneva Butler MD Work Phone: [facility] 09-13-2024 11:05-0400 Body weight 123.2 kg Geneva Butler MD Work Phone: [facility] 09-13-2024 11:05-0400 Diastolic blood pressure 63 mm[Hg] Geneva Butler MD Work Phone: [facility] 09-13-2024 11:05-0400 Heart rate 75 /min Geneva Butler MD Work Phone: [facility] 09-13-2024 11:05-0400 Systolic blood pressure 124 mm[Hg] Geneva Butler MD Work Phone: [facility] 08-30-2024 11:42-0400 Body height 185.42 cm [facility] 08-30-2024 11:42-0400 Body mass index (BMI) [Ratio] 34.4 kg/m2 [facility] 08-30-2024 11:42-0400 Body weight 118.44 kg [facility] 08-30-2024 11:42-0400 Diastolic blood pressure 70 mm[Hg] [facility] 08-30-2024 11:42-0400 Heart rate 80 /min [facility] 08-30-2024 11:42-0400 Respiratory rate 12 /min [facility] 08-30-2024 11:42-0400 Systolic blood pressure 135 mm[Hg] [facility] 08-16-2024 15:05-0400 Body mass index (BMI) [Ratio] 33.95 kg/m2 Herber Donald MD Work Phone: [facility] 08-16-2024 15:05-0400 Body weight 123.2 kg Herber Donald MD Work Phone: [facility] 08-16-2024 15:05-0400 Diastolic blood pressure 70 mm[Hg] Herber Donald MD Work Phone: [facility] 08-16-2024 15:05-0400 Heart rate 64 /min Herber Donald MD Work Phone: [facility] 08-16-2024 15:05-0400 Systolic blood pressure 127 mm[Hg] Herber Donald MD Work Phone: [facility] 04-27-2024 15:30-0500 Body height 185.42 cm [facility] 04-27-2024 15:30-0500 Body mass index (BMI) [Ratio] 34.3 kg/m2 [facility] 04-27-2024 15:30-0500 Body weight 118.16 kg [facility] 04-27-2024 15:30-0500 Diastolic blood pressure 79 mm[Hg] [facility] 04-27-2024 15:30-0500 Heart rate 72 /min [facility] 04-27-2024 15:30-0500 Respiratory rate 20 /min [facility] 04-27-2024 15:30-0500 Systolic blood pressure 135 mm[Hg] [facility] 04-05-2024 13:44-0500 Body height 189.2 cm Amanda Moon DO Work Phone: [facility] 04-05-2024 13:44-0500 Body mass index (BMI) [Ratio] 31.92 kg/m2 Amanda Moon DO Work Phone: [facility] 04-05-2024 13:44-0500 Body weight 114.31 kg Amanda Moon DO Work Phone: [facility] 04-05-2024 13:44-0500 Diastolic blood pressure 86 mm[Hg] Amanda Moon DO Work Phone: [facility] 04-05-2024 13:44-0500 Heart rate 63 /min Amanda Moon DO Work Phone: [facility] 04-05-2024 13:44-0500 SaO2% (BldA) [Mass fraction] 97 % Amanda Moon DO Work Phone: [facility] 04-05-2024 13:44-0500 Systolic blood pressure 142 mm[Hg] Amanda Moon DO Work Phone: [facility] 03-11-2024 11:25-0500 Body mass index (BMI) [Ratio] 34 kg/m2 [facility] 03-11-2024 11:25-0500 Diastolic blood pressure 89 mm[Hg] [facility] 03-11-2024 11:25-0500 Systolic blood pressure 139 mm[Hg] [facility] 03-11-2024 11:04-0500 Body height 185.42 cm [facility] 03-11-2024 11:04-0500 Body weight 116.8 kg [facility] 03-11-2024 11:04-0500 Heart rate 74 /min [facility] 03-11-2024 11:04-0500 Respiratory rate 12 /min [facility] 02-22-2024 10:41-0500 Body height 189.2 cm Amanda Moon DO Work Phone: [facility] 02-22-2024 10:41-0500 Body mass index (BMI) [Ratio] 32.18 kg/m2 Amanda Moon DO Work Phone: [facility] 02-22-2024 10:41-0500 Body weight 115.21 kg Amanda Moon DO Work Phone: [facility] 02-22-2024 10:41-0500 Diastolic blood pressure 86 mm[Hg] Amanda Moon DO Work Phone: [facility] 02-22-2024 10:41-0500 Heart rate 88 /min Amanda Moon DO Work Phone: [facility] 02-22-2024 10:41-0500 SaO2% (BldA) [Mass fraction] 99 % Amanda Moon DO Work Phone: [facility] 02-22-2024 10:41-0500 Systolic blood pressure 142 mm[Hg] Amanda Moon DO Work Phone: [facility] 12-03-2023 11:04-0400 Body height 185.42 cm [facility] 12-03-2023 11:04-0400 Body mass index (BMI) [Ratio] 33.8 kg/m2 [facility] 12-03-2023 11:04-0400 Body weight 116.28 kg [facility] 12-03-2023 11:04-0400 Diastolic blood pressure 86 mm[Hg] [facility] 12-03-2023 11:04-0400 Heart rate 71 /min [facility] 12-03-2023 11:04-0400 Respiratory rate 12 /min [facility] 12-03-2023 11:04-0400 Systolic blood pressure 130 mm[Hg] [facility] Encounters Encounter Date Encounter Type Care Provider Facility Start: 11-29-2024 End: 11-29-2024 Admission to same day surgery center Geneva Butler MD Work Phone: Endocrine Surgery Comment on above: Hyperparathyroidism (HCC) (Primary Dx) Start: 11-29-2024 End: 11-29-2024 Telemedicine consultation with patient Geneva Butler MD Work Phone: Endocrine Surgery Start: 11-29-2024 ambulatory GENEVA BUTLER Facility:[facility] Start: 11-18-2024 End: 11-18-2024 Telephone encounter Geneva Butler MD Work Phone: Endocrine Surgery Comment on above: Post Op Start: 11-15-2024 ambulatory [facility] Start: 11-14-2024 End: 11-15-2024 ambulatory ALVIN LO Facility:[facility] Start: 11-01-2024 ambulatory GENEVA BUTLER Facility:[facility] Start: 11-01-2024 End: 11-01-2024 Subsequent hospital visit by physician Spect[employer] Work Phone: Molecular Imaging Comment on above: Hyperparathyroidism (HCC) [E21.3] Start: 11-01-2024 End: 11-01-2024 ambulatory GENEVA BUTLER Facility:[facility] Start: 11-01-2024 ambulatory GENEVA BUTLER Facility:[facility] Start: 11-01-2024 End: 11-01-2024 Subsequent hospital visit by physician [facility] Start: 11-01-2024 End: 11-01-2024 Admission to establishment [facility] 6 Work Phone: Pre Anesthesia Start: 11-01-2024 End: 11-01-2024 Anesthesia consultation [facility] 6 Work Phone: Pre Anesthesia Comment on above: Chondrosarcoma (HCC) (Primary Dx); REMY (obstructive sleep apnea); Essential hypertension; Class 1 obesity due to excess calories without serious comorbidity with body mass index (BMI) of 34.0 to 34.9 in adult; Paroxysmal atrial fibrillation (HCC); SVT (supraventricular tachycardia) (HCC) Start: 11-01-2024 End: 11-01-2024 ambulatory ALVIN LO Facility:[facility] Start: 10-25-2024 End: 10-25-2024 ambulatory [facility] Start: 10-19-2024 End: 10-19-2024 ambulatory ALVIN LO Facility:[facility] Start: 10-04-2024 End: 10-10-2024 Telephone encounter Geneva Butler MD Work Phone: Endocrine Surgery Comment on above: NM Parathyroid Reque st Start: 09-15-2024 End: 09-15-2024 ambulatory [facility] Work Phone: Start: 09-15-2024 End: 09-15-2024 Patient encounter procedure [facility] y[facility] Work Phone: Start: 09-13-2024 End: 09-13-2024 Patient encounter procedure Geneva Butler MD Work Phone: Endocrine Surgery Comment on above: Hyperparathyroidism (HCC) (Primary Dx) Start: 09-13-2024 End: 09-13-2024 ambulatory GENEVA BUTLER Facility:[facility] Start: 09-06-2024 ambulatory [facility] Start: 08-30-2024 End: 08-30-2024 ambulatory [facility] Work Phone: Start: 08-30-2024 End: 08-30-2024 Patient encounter procedure [facility] Work Phone: Start: 08-25-2024 Non-patient / Non-visit [facility] Physician [facility] Work Phone: Start: 08-25-2024 Non-patient / Non-visit [facility] Physician [facility] Work Phone: Start: 08-24-2024 Non-patient / Non-visit [facility]ician [facility] Work Phone: Start: 08-23-2024 Non-patient / Non-visit [facility] Physician [facility] Work Phone: Start: 08-23-2024 End: 08-23-2024 Telephone encounter Geneva Butler MD Work Phone: Endocrine Surgery Comment on above: Appointment (Left a messge that appointment with scheduled for today(08/23) was rescheduled to 09/13 at 12:20 PM due to patient not feeling well. Sent My chart message) Start: 08-18-2024 End: 08-18-2024 Telephone encounter Herber Donald MD Work Phone: Endocrinology Comment on above: Results ([place] [place] [facility] - DXA scan ) Start: 08-17-2024 End: 10-17-2024 Follow-up encounter Herber Donald MD Work Phone: Endocrinology Start: 08-17-2024 End: 08-17-2024 Telephone encounter Geneva Butler MD Work Phone: Endocrine Surgery Comment on above: Consult (FACE SHEET) Start: 08-16-2024 Non-patient / Non-visit [facility] Work Phone: Start: 08-16-2024 End: 08-16-2024 Patient encounter procedure Herber Donald MD Work Phone: Endocrinology Comment on above: Primary hyperparathy roidism (HCC) (Primary Dx); Hypercalcemia Start: 08-16-2024 End: 08-16-2024 ambulatory HERBER DONALD Facility:[facility] Start: 07-18-2024 Non-patient / Non-visit [facility] Work Phone: Start: 07-08-2024 End: 07-08-2024 ambulatory RAFAEL BYRNE [facility] Start: 07-07-2024 Non-patient / Non-visit [facility] Physician [facility] Work Phone: Start: 07-04-2024 End: 07-04-2024 ambulatory ARLENE DEGROOT Not Available Start: 07-01-2024 ambulatory [facility] Start: 06-14-2024 End: 06-14-2024 ambulatory [facility] Start: 05-03-2024 ambulatory [facility] Start: 04-27-2024 End: 04-27-2024 ambulatory [facility] Work Phone: Start: 04-27-2024 End: 04-27-2024 [facility] Start: 04-07-2024 End: 04-07-2024 Clinisync Result Encounter Amanda Mustafa DO Work Phone: [facility] External Department Unsolicited Start: 04-07-2024 End: 04-07-2024 Clinisync Result Encounter Amanda Mustafa DO Work Phone: [facility] External Department Unsolicited Start: 04-07-2024 Non-patient / Non-visit [facility] Work Phone: Start: 04-05-2024 End: 04-05-2024 Bamboo flowsheet Amanda Mustafa DO Work Phone: [employer] Start: 04-05-2024 End: 04-05-2024 Bamboo flowsheet Amanda Mustafa DO Work Phone: [employer] [facility] Start: 04-05-2024 End: 04-05-2024 Office outpatient visit 25 minutes Amanda Mustafa DO Work Phone: [employer] Comment on above: Idiopathic periphera l neuropathy (Primary Dx); Numbness and tingling; 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; Weakness Start: 04-05-2024 End: 04-05-2024 ambulatory AMANDA MUSTAFA Not Available Start: 03-23-2024 ambulatory [facility] Start: 03-15-2024 End: 03-15-2024 ambulatory DREA [facility] Start: 03-11-2024 End: 03-11-2024 [facility] Work [facility]: Start: 03-10-2024 Non-patient / Non-visit [facility] Work Phone: Start: 03-10-2024 Patient encounter procedure [facility] Start: 03-07-2024 ambulatory [facility] Start: 03-02-2024 Non-patient / Non-visit [facility] Work Phone: Start: 02-24-2024 End: 02-24-2024 ambulatory AMANDA MOON Not Available Start: 02-24-2024 End: 02-24-2024 Patient encounter procedure Amanda Moon DO Work Phone: [facility] Comment on above: Idiopathic periphera l neuropathy Start: 02-22-2024 End: 02-22-2024 Bamboo flowsheet Amanda Moon DO Work Phone: [facility] Start: 02-22-2024 End: 02-22-2024 Bamboo flowsheet Amanda Moon DO Work Phone: [facility] Start: 02-22-2024 End: 02-22-2024 ambulatory AMANDA MOON Not Available Start: 02-22-2024 End: 02-22-2024 Office outpatient new 45 minutes Amanda Moon DO Work Phone: [facility] Comment on above: Idiopathic periphera l neuropathy (Primary Dx); 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 [employer] Work Phone: Start: 06-04-2023 End: 06-04-2023 ambulatory Alvin Lo Other [place] [employer] Other Start: 06-04-2023 Encounter by computer link Alvin Lo [facility] Start: 05-29-2023 End: 05-29-2023 ambulatory Alvin Lo Other [place] [employer] Other Start: 05-29-2023 Telephone encounter Alvin Lo [facility] Start: 01-13-2023 End: 01-14-2023 ambulatory HARESH PINEDA Facility:[facility] Start: 01-12-2023 Orders Only Haresh Pineda MD Work Phone: Orthopaedics Comment on above: Chronic pain of left ankle (Primary Dx) Start: 11-17-2022 Orders Only Haresh Pineda MD Work Phone: Orthopaedics Comment on above: Chondrosarcoma (HCC) (Primary Dx) Start: 06-09-2022 End: 06-10-2022 ambulatory DREA LINO Facility:[facility] Start: 02-07-2022 End: 02-08-[address] ALVIN LO Facility:[facility] Start: 11-05-2021 End: 11-05-2021 Patient encounter procedure Haresh Pineda MD Work Phone: Orthopaedics Comment on above: Chondrosarcoma (HCC) (Primary Dx) Start: 11-05-2021 End: 11-05-2021 Subsequent hospital visit by physician Xr Chest Main A21 Radiology Comment on above: 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 Procedures Date Procedure Procedure Detail Performing Clinician Start: 04-07-2024 ALL THYROID STIM HORMONE Amanda Mustafa DO Work Phone: Start: 03-15-2024 Follow-up visit Follow-up DREA LION Start: 02-24-2024 End: 02-24-2024 Needle emg ea extremty w/paraspinl area complete Amanda Mustafa DO Work Phone: Start: 02-07-[address] [facility] [place] Comment on above: Performed By: #### T SH, BMP, LIPID, ALT #### [facility] [address], [place] [address] Dr. Fidel Paige Start: 11-05-2021 Radiologic exam ches t 2 views Eric Taylor APRN.E [employer] A[employer]LY[employer] Work Phone: Start: 11-05-2021 Radiologic examinati on tibia & fibula 2 views Eric Taylor APRN.E [employer] ANALY[employer] Work Phone: Start: 06-30-2019 Adult depression scr eening assessment Haresh Pineda MD Work Phone: Plan of Treatment Date Care Activity Detail Author Start: 11-02-2027 Diabetes Screening Diabetes Screening [facility] Start: 10-02-2026 Urine microalbumin profile DTaP,Tdap,Td Vaccine (3 - Tdap) [facility] Start: 09-13-2025 BP Controlled (<130/80) BP Controlled (<130/80) [facility] Start: 08-16-2025 BP Controlled (<130/80) BP Controlled (<130/80) [facility] Start: 02-28-2025 End: 02-28-2025 Patient encounter procedure 02/28/2025 2:20 PM EST Office Visit Endocrinology [address] [place], [place] [id number] Herber Donald MD [address] [place] [address] [place] [address] Return in about 6 months (around 02/15/2025). Endocrinology Comment on above: Return in about 6 months (around 025). Start: 02-16-2025 End: 05-18-2025 25-hydroxyvitamin D3 [Mass/volume] in Serum or Plasma VITAMIN D 25 HYDROXY Lab Routine Primary hyperparathyroidism (HCC) Expected: 02/16/2025, Expires: 05/18/2025 [facility] Comment on above: Expected: 02/16/2025, Expires: Start: 02-16-2025 End: 05-18-2025 Parathyrin.intact [Mass/volume] in Serum or Plasma PTH INTACT Lab Routine Primary hyperparathyroidism (HCC) Expected: 02/16/2025, Expires: 05/18/2025 [facility] Comment on above: Expected: 02/16/2025, Expires: Start: 02-16-2025 End: 05-18-2025 Renal function 2000 panel - Serum or Plasma RENAL FUNCTION PANEL Lab Routine Primary hyperparathyroidism (HCC) Expected: 02/16/2025, Expires: 05/18/2025 [facility] Work Phone: Comment on above: Expected: 02/16/2025, Expires: Start: 02-12-2025 Screening for malignant neoplasm of colon [facility] Start: 12-19-2024 Influenza vaccination Influenza Vaccine (#1) [facility] Start: 11-29-2024 End: 11-29-2024 Admission to same day surgery center 11/29/2024 2:20 PM EDT [facility] Endocrine Surgery [address] [place], [place] [id number] Geneva Butler MD [address] [place] [address] post op Endocrine Surgery Comment on above: post op Start: 11-14-2024 End: 11-14-2024 Admission to same day surgery center 11/14/2024 7:30 AM EDT - 11/14/2024 9:15 AM EDT Surgery [facility] Surgery [address] [place] [id number] Geneva Butler MD [address] [place] [address] PARATHYROIDECTOMY [facility] Surgery Comment on above: PARATHYROIDECTOMY Start: 11-14-2024 End: 11-14-2024 Parathyroidectomy/explorat ion parathyroids PARATHYROIDECTOMY Hyperparathyroidism (HCC) 11/14/2024 7:30 AM EDT MM OR Start: 11-14-2024 Subsequent hospital visit by physician 11/14/2024 7:30 AM EDT Hospital Encounter [facility] Surgery [address] [place] [address] Geneva Butler MD [address] [place] [address] Hyperparathyroidism (HCC) [E21.3] [facility] Surgery Comment on above: Hyperparathyroidism (HCC) [E21.3] Start: 11-01-2024 End: 11-01-2024 Patient encounter procedure 11/01/2024 1:30 PM EDT Appointment Molecular Imaging [address] [id number] NM PARATHYROID W SPECTCT Molecular Imaging Comment on above: NM PARATHYROID W SPECTCT Start: 11-01-2024 End: 11-01-2024 ambulatory Cardiology Comment on above: pre-op Start: 11-01-2024 End: 11-01-2024 Patient encounter procedure 11/01/2024 10:30 AM EDT Appointment Molecular Imaging [address] [place] [address] NM PARATHYROID W SPECTCT Molecular Imaging Comment on above: NM PARATHYROID W SPECTCT Start: 11-01-2024 End: 11-01-2024 Anesthesia consultation 11/01/2024 9:00 AM EDT PAT Pre Anesthesia [address] [place] [address] 6, [address] [place] [address] pre-op Pre Anesthesia Comment on above: pre-op Start: 09-13-2024 End: 09-13-2024 Patient encounter procedure 09/13/2024 12:20 PM EDT Office Visit Endocrine Surgery [address] [place] [address] Geneva Butler MD [address] [place] [address] Pt okay to check-in at 11AM. [facility] Comment on above: Pt okay to check-in at 11AM. [facility] Start: 08-23-2024 End: 08-23-2024 Patient encounter procedure 08/23/2024 12:20 PM EDT Office Visit Endocrine Surgery [address] [place] [address] Geneva Butler MD [address] [place] [address] INTAKE PENDING-HYPERPARATHRYOIDIS M Endocrine Surgery Comment on above: INTAKE PENDING-HYPERPARATHRYOIDISM Start: 08-17-2024 End: 11-16-2024 Calcitriol [Mass/volume] in Serum or Plasma [facility] Comment on above: Expected: 08/17/2024 (Approximate), Expi res: 11/16/2024 Start: 08-17-2024 End: 11-16-2024 Calcium.ionized [Moles/volume] in Blood CALCIUM, IONIZED Lab Routine Hyperparathyroidism (HCC) Expected: 08/17/2024 (Approximate), Expires: 11/16/2024 [facility] Work Phone: Comment on above: Expected: 08/17/2024 (Approximate), Expi res: 11/16/2024 Start: 08-16-2024 End: 11-15-2024 25-hydroxyvitamin D3 [Mass/volume] in Serum or Plasma [facility] Comment on above: Expected: 08/16/2024, Expires: Start: 08-16-2024 End: 11-15-2024 Parathyrin.intact [Mass/volume] in Serum or Plasma [facility] Comment on above: Expected: 08/16/2024, Expires: Start: 08-16-2024 End: 11-15-2024 Renal function 2000 panel - Serum or Plasma [facility] Work Phone: Comment on above: Expected: 08/16/2024, Expires: Start: 07-04-2024 End: 07-04-2024 Patient encounter procedure 07/04/2024 4:00 PM EDT Office Visit [facility] [address] [place] [address] Arlene Degroot NP [address] [place], [place] [facility] Start: 06-20-2024 Covid-19 Vaccine () Covid-19 Vaccine () [facility] Start: 04-20-2024 Advance Directive Discussion Advance Directive Discussion [facility] Start: 04-05-2024 End: 04-05-2025 Cobalamin (Vitamin B12) [Mass/volume] in Serum or Plasma Vitamin B12 Lab Routine Idiopathic peripheral neuropathy Expected: 04/05/2024 (Approximate), Expires: 04/05/[address] [facility] Comment on above: Expected: 04/05/2024 (Approximate), Expi res: 04/05/2025 Start: 04-05-2024 End: 04-05-2025 Folate [Mass/volume] in Serum or Plasma Folate Lab Routine Idiopathic peripheral neuropathy Expected: 04/05/2024 (Approximate), Expires: 04/05/[address] [facility] Comment on above: Expected: 04/05/2024 (Approximate), Expi res: 04/05/2025 Start: 04-05-2024 End: 04-05-2025 Protein electrophoresis, serum Protein electrophoresis, serum Lab Routine Idiopathic peripheral neuropathy Expected: 04/05/2024 (Approximate), Expires: 04/05/[address] [facility] Comment on above: Expected: 04/05/2024 (Approximate), Expi res: 04/05/2025 Start: 04-05-2024 End: 04-05-2025 Thyrotropin [Units/volume] in Serum or Plasma TSH Lab Routine Idiopathic peripheral neuropathy Expected: 04/05/2024 (Approximate), Expires: 04/05/[address] [facility] Work Phone: Comment on above: Expected: 04/05/2024 (Approximate), Expi res: 04/05/2025 Start: 04-05-2024 End: 04-05-2024 Patient encounter procedure [facility] Comment on above: Arrived Start: 02-24-2024 End: 02-24-2024 Patient encounter procedure 02/24/2024 1:00 PM EST Procedure Visit [facility] [address] [facility] [place] [id number] Tien Mustafale, DO [address] [place] [address] [facility] Start: 02-22-2024 End: 02-21-2025 Cobalamin (Vitamin B12) [Mass/volume] in Serum or Plasma Vitamin B12 Lab Routine Idiopathic peripheral neuropathy Expected: 02/22/2024 (Approximate), Expires: 02/21/[address] [facility] Work Phone: Comment on above: Expected: 02/22/2024 (Approximate), Expi res: 02/21/2025 Start: 02-22-2024 End: 02-21-2025 EMG 2 Extremities EMG 2 Extremities Neurology Routine Idiopathic peripheral neuropathy Expected: 02/22/2024 (Approximate), Expires: 02/21/2025 [facility] Comment on above: Expected: 02/22/2024 (Approximate), Expi res: 02/21/2025 Start: 02-22-2024 End: 02-21-2025 Folate [Mass/volume] in Serum or Plasma Folate Lab Routine Idiopathic peripheral neuropathy Expected: 02/22/2024 (Approximate), Expires: 02/21/2025 [facility] Comment on above: Expected: 02/22/2024 (Approximate), Expi res: 02/21/2025 Start: 02-22-2024 End: 02-21-2025 NVC 9-10 Nerves NVC 9-10 Nerves Neurology Routine Idiopathic peripheral neuropathy Expected: 02/22/2024 (Approximate), Expires: 02/21/2025 [facility] Comment on above: Expected: 02/22/2024 (Approximate), Expi res: 02/21/2025 Start: 02-22-2024 End: 02-21-2025 Protein electrophoresis, serum Protein electrophoresis, serum Lab Routine Idiopathic peripheral neuropathy Expected: 02/22/2024 (Approximate), Expires: 02/21/2025 [facility] Comment on above: Expected: 02/22/2024 (Approximate), Expi res: 02/21/2025 Start: 02-22-2024 End: 02-21-2025 Thyrotropin [Units/volume] in Serum or Plasma TSH Lab Routine Idiopathic peripheral neuropathy Expected: 02/22/2024 (Approximate), Expires: 02/21/2025 [facility] Comment on above: Expected: 02/22/2024 (Approximate), Expi res: 02/21/2025 Start: 12-19-2022 Influenza vaccination [facility] Start: 11-05-2022 End: 12-05-2022 Radiologic exam chest 2 views XR CHEST 2V FRONTAL/LAT Radiology Routine Chondrosarcoma (HCC) Expected: 11/05/2022 (Approximate), Expires: 12/05/2022 [facility] Work Phone: Comment on above: Expected: 11/05/2022 (Approximate), Expi res: 12/05/2022 Start: 11-05-2022 End: 12-05-2022 XR TIBIA FIBULA 2V AP/LAT RIGHT XR TIBIA FIBULA 2V AP/LAT RIGHT Radiology Routine Chondrosarcoma (HCC) Expected: 11/05/2022 (Approximate), Expires: 12/05/2022 [facility] Work Phone: Comment on above: Expected: 11/05/2022 (Approximate), Expi res: 12/05/2022 Start: 10-25-2022 DIABETES SCREEN DIABETES SCREEN [facility] Start: 10-25-2022 Diabetes Screening Diabetes Screening [facility] Start: 04-20-2022 ADVANCE DIRECTIVE DISCUSSION ADVANCE DIRECTIVE DISCUSSION [facility] Start: 04-20-2022 DEPRESSION ASSESSMENT DEPRESSION ASSESSMENT [facility] Start: 12-19-2021 Influenza vaccination INFLUENZA (#1) [facility] Start: 11-18-2021 COVID-19 VACCINE (5 - Pfizer series) COVID-19 VACCINE (5 - Pfizer series) [facility] Start: 04-20-2021 ADVANCE DIRECTIVE DISCUSSION ADVANCE DIRECTIVE DISCUSSION [facility] Start: 06-29-2020 Adult depression screening assessment DEPRESSION SCREENING [facility] Start: 01-19-2016 Pneumococcal Vaccine: 50+ (2 of 2 - PCV) Pneumococcal Vaccine: 50+ (2 of 2 - PCV) [facility] Start: 01-19-2016 Pneumococcal Vaccine: 65+ Years (2 of 2 - PCV) Pneumococcal Vaccine: 65+ Years (2 of 2 - PCV) [facility] Start: 2014 Pneumococcal Vaccine: 65+ (1 - PCV) Pneumococcal Vaccine: 65+ (1 - PCV) [facility] Start: 2014 PNEUMOCOCCAL: 65+ (1 - PCV) PNEUMOCOCCAL: 65+ (1 - PCV) [facility] Start: 08-18-2014 Medicare Annual Wellness Visit Medicare Annual Wellness Visit [facility] Start: 09-19-1999 SHINGRIX VACCINE (1 of 2) SHINGRIX VACCINE (1 of 2) [facility] Start: 1994 COLOGUARD (FIT-DNA) COLOGUARD (FIT-DNA) [facility] Start: 1994 Colonoscopy COLONOSCOPY [facility] Start: 1994 COLORECTAL CANCER SCREENING COLORECTAL CANCER SCREENING [facility] Start: [address] COLONOGRAPHY [facility] Start: 1994 FECAL OCCULT BLOOD FECAL OCCULT BLOOD [facility] Start: 1994 Screening for malignant neoplasm of colon [facility] Start: 1994 SIGMOIDOSCOPY SIGMOIDOSCOPY [facility] Start: 1984 Lipid 1996 panel - Serum or Plasma Lipid Screening [facility] Start: 1984 Lipid panel Lipid Screening [facility] Start: 1984 LIPID SCREEN LIPID SCREEN [facility] Start: [address] [facility] Start: 09-19-1967 ANNUAL PCP TEAM CHRONIC DISEASE VISIT ANNUAL PCP TEAM CHRONIC DISEASE VISIT [facility] Start: 09-19-1967 Anxiety Screening Anxiety Screening [facility] Start: 09-19-1967 BP CONTROLLED (<130/80) BP CONTROLLED (<130/80) [facility] in Start: 09-19-1967 Depression Screening Depression Screening [facility] Start: 09-19-1967 HEPATITIS C SCREENING HEPATITIS C SCREENING [facility] Start: 09-19-1967 Hepatitis C screening Hepatitis C Screening [facility] Start: 1949 Screening for malignant neoplasm of colon [facility] CALCIUM, 24 HR URINE CALCIUM, 24 HR URINE Lab Routine Hyperparathyroidism (HCC) Ordered: 08/17/2024 [facility] Comment on above: Ordered: 08/17/2024 CREATININE, 24 HOUR URINE CREATI NINE, 24 HOUR URINE Lab Routine Hyperparathyroidism (HCC) Ordered: 08/17/2024 [facility] Comment on above: Ordered: 08/17/2024 End: 09-16-2025 DXA Skeletal system.axial Views for bone density DXA-AXIAL SKELETON Radiology Routine Hyperparathyroidism (HCC) 1 Occurrences starting 08/17/2024 until 09/16/2025 [facility] Comment on above: 1 Occurrences starting 08/17/2024 until 09/16/2025 End: 09-16-2025 DXA-FOREARM SKELETON DXA-FOREARM SKELETON Radiology Routine Hyperparathyroidism (HCC) 1 Occurrences starting 08/17/2024 until 09/16/2025 [facility] Comment on above: 1 Occurrences starting 08/17/2024 until 09/16/2025 End: 12-17-2023 Radiologic exam chest 2 views XR CHEST 2V FRONTAL/LAT Radiology Routine Chondrosarcoma ([facility]) 1 Occurrences starting 11/17/2022 until 12/17/2023 [facility] Work Phone: Comment on above: 1 Occurrences starting 11/17/2022 until 12/17/2023 End: 09-15-2025 SPECT+CT Parathyroid gland NM PARATHYROID W SPECT/CT Radiology Routine Primary hyperparathyroidism ([facility]) Hypercalcemia 1 Occurrences starting 08/16/2024 until 09/15/2025 [facility] Comment on above: 1 Occurrences starting 08/16/2024 until 09/15/2025 SPECT+CT Parathyroid gland NM PA RATHYROID W SPECT/CT Radiology Routine Hyperparathyroidism ([facility]) 11/01/2024 2:25 PM EDT [facility] Work Phone: US Lower extremity v ein - right [facility] End: 02-11-2024 XR ANKLE GENERAL 3V AP/LAT/OBL LEFT XR ANKLE GENERAL 3V AP/LAT/OBL LEFT Radiology Routine Chronic pain of left ankle 1 Occurrences starting 01/12/2023 until 02/11/2024 [facility] Work Phone: Comment on above: 1 Occurrences starting 01/12/2023 until 02/11/2024 XR Chest 2 Views [facility] End: 12-17-2023 XR TIBIA FIBULA 2V AP/LAT RIGHT XR TIBIA FIBULA 2V AP/LAT RIGHT Radiology Routine Chondrosarcoma (HCC) 1 Occurrences starting 11/17/2022 until 12/17/2023 [facility] Work Phone: Comment on above: 1 Occurrences starting 11/17/2022 until 12/17/2023 XR TIBIA FIBULA 2V A P/LAT RT XR TIBIA FIBULA 2V AP/LAT RT Radiology Routine Chondrosarcoma (HCC) 11/05/2021 2:50 PM EDT [facility] Work Phone: [facility] Immunizations Immunization Date Immunization Notes Care Provider Omar tilley 12-09-2023 influenza virus vaccine, unspecified formulation Alvin Lo DO Work Phone: [facility] 02-10-2022 influenza virus vaccine, split virus (incl. purified surface antigen) Alvin Lo Other MD [employer] Other 02-10-2022 influenza virus vaccine, unspecified formulation [facility] 05-29-2020 COVID-19 Vaccine Pfi zer - Documentation Purposes Only Alvin Lo Other [facility] 10-02-2016 diphtheria, tetanus toxoids and acellular pertussis vaccine, unspecified formulation Alvin Lo Other [facility] 03-23-2016 pneumococcal conjuga te vaccine, 13 valent Alvin Lo Other [facility] 03-01-2009 pneumococcal polysaccharide vaccine, 23 valent Alvin Lo Other [facility] 02-25-2006 diphtheria, tetanus toxoids and acellular pertussis vaccine, unspecified formulation Alvin Lo Other [facility] Payers Date Payer Category Payer Medicare MEDICARE MEDICAR E A AND B [id number] 2014-Present [phone] [place] [address] Medicare [id number] 2014 Medicare [id number] 2014 Private Health Insurance [id number] 2014 Unknown 2014 Unknown [employer] 2N D [id number] 2014-Present [phone] [address] [address] [place] [address] Indemnity [id number] 2014 Unknown [id number] 1959 Medicare [id number] 1959 Unknown [id number] 1949 Unknown [id number] 1949 Unknown [id number] 1949 Unknown [id number] 1949 Unknown [id number] 1949 Unknown [id number] 1949 Unknown [id number] 1949 Unknown [id number] Social History Date Type Detail Facility Start: 07-17-2017 End: 11-01-2024 Tobacco smoking status NHIS Never smoked tobacco [facility] Start: 07-17-2017 End: 11-01-2024 Tobacco use and exposure Smokeless tobacco non-user [facility] Start: 1950 Sex Assigned At Male [facility] Start: 10-26-2021 End: 11-05-2021 Exposure to SARS-CoV-2 (event) Not sure [facility] Start: 05-18-2022 End: 01-13-2023 History of Social function [facility] Start: 05-18-2022 End: 01-13-2023 Area Deprivation Index [facility] Start: 06-19-2017 National Score (1-100), lower number is lower risk 60 [facility] Start: 11-23-2019 Sexual orientation Heterosexual (finding) [facility] Tobacco smoking stat us [facility] Tobacco smoking consumption unknown [facility] Start: 1950 Sex assigned at Not on file [facility] Start: 02-22-2024 Tobacco smoking status NHIS Ex-smoker [facility] History of tobacco use Current smoker [facility] History of tobacco use Cigarette Smoker [facility] Start: 04-27-2024 End: 09-15-2024 Sex Male (finding) [facility] History of tobacco use Passive smoker [facility] Start: 11-01-2024 Alcoholic beverage intake Ex-drinker (finding) [facility] Medical Equipment Procedure Code Equipment Code Equipment Origin al Text Equipment Identifier Dates Graft Enhance Demineralized Cortical Fiber Bone Allograft Dehydrate 2.5ml - [id number] Start: 08-27-2017 Graft Cancellous Chips Bone Void Freeze Dry 30ml (1.7-10mm) - [id number] Start: 08-27-2017 Graft Dbx Bone V oid Allograft Freeze Dried Putty 1ml - [id number] Start: 08-27-2017 Tibial Nail [id number] Start: 08-27-2017 Carbofix Titaniumscrew [id number] S tart: 08-27-2017 Carbofix Titaniu m Screw [id number] Start: 08-27-2017 Carbofix Titaniu m Screw [id number] Start: 08-27-2017 Carbofix Titaniu m Screw [id number] Start: 08-27-2017 Carbofix Titaniu m Screw [id number] Start: 08-27-2017 Functional Status Date Assessment Result Facility 08-31-2017 Are you deaf, or do you have serious difficulty hearing No 08/31/2017 4:00 PM EDT Rylee Strong RN No [facility] 08-31-2017 Are you blind, or do you have serious difficulty seeing, even when wearing glasses No 08/31/2017 4:00 PM EDT Rylee Strong, TIRSO No [facility] 08-31-2017 Do you have serious difficulty walking or climbing stairs No 08/31/2017 4:00 PM EDT Rylee Strong, TIRSO No [facility] 08-31-2017 Do you have difficul ty dressing or bathing No 08/31/2017 4:00 PM EDT Rylee Strong RN No [facility] 08-31-2017 Because of a physica l, mental, or emotional condition, do you have difficulty doing errands alone such as visiting a physician's office or shopping No 08/31/2017 4:00 PM EDRylee Knowles RN No [facility] Mental Status Date Assessment Result Facility 08-31-2017 Because of a physica l, mental, or emotional condition, do you have serious difficulty concentrating, remembering, or making decisions No 08/31/2017 4:00 PM EDRylee Knowles RN No [facility] Clinical Notes 10-10-2021 to 11-29-2024 Geneva Butler MD - 11/29/2024 7:44 AM EDTTelephone Encounter - Lois Wise RN - 11/18/2024 2:34 PM EDTTelephone Encounter - Lois Wise RN - 11/18/2024 2:34 PM EDTPatient Instructions Note Date & Type Note Facility 11-29-2024 Note HNO ID: [id number] Author: GENEVA BUTLER MD Service: ? Author Type: Physician Type: Progress Notes Filed: 11/29/2024 13:02 Note Text: [facility] Endocrinology and Metabolism [place] Department of Endocrine Surgery Geneva Butler M.D. [address] [place] [address] Mr. Bang Sharma's postoperative visit was conducted via telephone call. He underwent a parathyroid exploration with excision of the right upper and left upper parathyroid glands on 11/14/24. On the morning following surgery, his serum calcium measured 9.2 with a corresponding PTH of 16. He has been maintained on 1 gram of oral calcium daily. He denies any hypocalcemic symptoms. 11/22/24: Ca 9.0 PTH 26 As per the patient, his transverse cervical incision has healed quite well without evidence of infection or seroma. His voice is normal. Mr. Sharma has done well since his surgery. I have given him a requisition to have his calcium and PTH in six months along with vitamin D levels. I appreciate being involved in the care of your patient, and please feel free to contact me should you have any questions or concerns. GENEVA BUTLER M.D. CC: Nathaly Sargent D.O. [facility] 11-29-2024 History of Present illness Narrative [facility] Endocrinology and Metabolism [place] Department of Endocrine Surgery Geneva Butler M.D. [address] [place] [address] Mr. Bang Sharma's postoperative visit was conducted via telephone call. He underwent a parathyroid exploration with excision of the right upper and left upper parathyroid glands on 11/14/24. On the morning following surgery, his serum calcium measured 9.2 with a corresponding PTH of 16. He has been maintained on 1 gram of oral calcium daily. He denies any hypocalcemic symptoms. 11/22/24: Ca 9.0 PTH 26 As per the patient, his transverse cervical incision has healed quite well without evidence of infection or seroma. His voice is normal. Mr. Sharma has done well since his surgery. I have given him a requisition to have his calcium and PTH in six months along with vitamin D levels. I appreciate being involved in the care of your patient, and please feel free to contact me should you have any questions or concerns. GENEVA BUTLER M.D. CC: Nathaly Sargent D.O. documented in this encounter [facility] 11-18-2024 Telephone encounter Note Called pt and left a voice mail to see how pt is doing after undergoing Parathyroid exploration with excision of the right upper and left upper parathyroid glands with Dr. Butler on 11/14/24. Reminded of post-op follow-up and instruction was given to have labs drawn prior to the appointment. Pt to call for questions. Lois Wise RN [facility] 11-18-2024 Miscellaneous Notes Called pt and left a voice mail to see how pt is doing after undergoing Parathyroid exploration with excision of the right upper and left upper parathyroid glands with Dr. Butler on 11/14/24. Reminded of post-op follow-up and instruction was given to have labs drawn prior to the appointment. Pt to call for questions. Lois Wise RN documented in this encounter [facility] 11-15-2024 Note HNO ID: [id number] Author: ESTEBAN CAMPA MD Service: General Surgery Author Type: Resident Type: Progress Notes Filed: 11/15/2024 07:06 Note Text: ENDOCRINE SURGERY POST-OP CHECK Name: Bang Sharma Date: November 14, 2024 Patient is POD #1 s/p parathyroidectomy. Gland(s) removed: TIMMY MEDINA S: Patient is recovering well with no acute events overnight. Reports no pain or soreness. No dysphagia. Voice is normal, and patient denies paresthesias. O: PHYSICAL EXAM: BP 128/70 Pulse (!) 54 Temp 36.4 ?C (97.5 ?F) (Oral) Resp 18 Ht 188 cm (6' 2 ) Wt 117.9 kg (259 lb 14.8 oz) SpO2 96% BMI 33.37 kg/m? General Appearance: In no acute distress. Well [...] General Surgery Resident-[id number] Endocrine Surgery Department Pager: [phone] [facility] 11-14-2024 Note HNO ID: [id number] Author: TIFFANY WESTBROOK MD Service: Endocrine Surgery Author Type: Physician Type: Progress Notes Filed: 11/14/2024 11:29 Note Text: ENDOCRINE SURGERY POST-OP CHECK Name: Bang Sharma Date: November 14, 2024 Patient is POD #0 s/p parathyroidectomy. Gland(s) removed: TIMMY MEDINA S: Evaluated patient at bedside for post-op check, and the patient is recovering appropriately. Reports no pain or soreness. Sitting up and eating food, reporting no dysphagia. Neck is soft with mild puffiness around the incision site but no significant swelling, voice is normal, and patient denies paresthesias. O: PHYSICAL EXAM: BP 141/83 Pulse (!) 59 Temp 36.3 ?C (97.3 ?F) (Oral) Resp 13 Ht 188 cm (6' 2 ) Wt 117.9 kg (259 lb 14.8 oz) SpO2 96% BMI 33.37 kg/m? General Appearance: In no acute distress. Well [...] Monitor overnight in the surgical floor Tiffany Westbrook MD [phone] Fellow / Clinical Associate, Endocrine Surgery [facility] 11-14-2024 Note HNO ID: [id number] Author: AMANDA HAWKINS APRN.[employer] Service: ? Author Type: Nurse Cardiograph Operator Type: Anesthesia Procedure Notes Filed: 11/14/2024 07:46 Note Text: ANESTHESIOLOGY PROCEDURE NOTE Airway General Information Procedure Start Time/Medication Administration: 11/14/2024 7:32 AM Procedure End Time: 11/14/2024 7:32 AM Patient location during procedure: OR Staffing FARMWORKER GRAIN: Amanda Hawkins APRN.FARMWORK[employer]IN Performed by: LORE Indications and Patient Condition Indications for airway management: anesthesia Preoxygenated: yes anesthesia circuit Method: sleep Difficult Mask: No Final Airway Details Final airway type: endotracheal airway Final Endotracheal Airway: ETT Cuffed: yes Successful intubation technique: video laryngoscopy Devices used: [place] Endotracheal tube insertion site: oral Blade size: #3 ETT size (mm): 7.5 Measured from: lips Measurement (cm): 23 Placement verified by: capnometry Cormack-Lehane Classification: grade I - full view of glottis Number of attempts at approach: 1 Airway not difficult SIGNATURE: Amanda Chaudhari APRN.FARMWORK[employer]IN PATIENT NAME: Bang Sharma DATE: November 14, 2024 TIME: 7:46 AM CSN: [id number] [facility] 11-01-2024 History of Present illness Narrative RADIOLOGY SERVICE PROGRESS NOTE SERVICE DATE: 11/01/2024 SERVICE TIME: 11:26 AM PATIENT IDENTITY VERIFICATION COMPLETED USING TWO (2) STANDARD IDENTIFIERS: Name and Date of confirmed by patient verbally FALL SCREENING: Has the patient had 2 falls in the last year or 1 fall with injury or currently using an Ambulatory Assistive Device (Walker, Cane, Wheelchair, Crutches, etc.)? No PATIENT GENDER DATA: .male ALLERGIES: Reviewed and unchanged MEDICATIONS REVIEWED: Yes PATIENT RELEVANT IMPLANT DATA REVIEWED: Not Applicable PATIENT PRESENTS WITH AN IMPLANTABLE OR ATTACHED CERTIFIED OPHTHALMIC SURGICAL ASSISTANT: No CREATININE: Creatinine Date Value Ref Range Status 08/16/2024 1.55 (H) 0.73 - 1.22 mg/dL Final 08/31/2018 1.02 0.73 - 1.22 mg/dL Final 12/10/2017 1.28 (H) 0.73 - 1.22 mg/dL Final Estimated Glomerular Filtration Rate Date Value Ref Range Status 08/16/2024 47 (L) >=60 mL/min/1.73m Final Comment: Estimated Glomerular Filtration Rate (eGFR) is calculated using the 2020 CKD-EPI creatinine equation. This equation utilizes serum creatinine, sex, and age as parameters. The creatinine assay has traceable calibration to isotope dilution-mass spectrometry. Refer to KDIGO guidelines for clinical interpretation. In patients with unstable renal function, e.g. those with acute kidney injury, the eGFR may not accurately reflect actual GFR. eGFR- Date Value Ref Range Status 08/31/2018 >60 Final P.O.C.T. RESULTS: N/A November 01, [address] PERFORMED: No IV SITE: Ambulatory: A peripheral IV was started in the Left hand with a Angio cath: 24 gauge. POST EXAM PIV STATUS: Discontinued PROCEDURE TYPE: NM Parathyroid: 204 microcurries of Nal 123 capsules was administered orally at 1055. 34.0 mCi of Tc99m Sestamibi was injected IV at 13:50. PATIENT DISCHARGED TO: Ambulatory patient, left [place] department area. Is this a therapy: No A Diagnostic radioactive procedure has taken place, with no further precautions necessary other than routine body substance precautions. More information regarding radiation safety can be found using this link: [email or web address] [email or web address] SIGNATURE: RT Mariela(Caro) PATIENT NAME: Bang Sharma DATE: November 01, 2024 TIME: 11:26 AM PAGER/CONTACT #: documented in this encounter [facility] 11-01-2024 Note HNO ID: [id number] Author: JAME DONALD RT(R) Service: Nuclear Medicine Author Type: Technologist Type: Progress Notes Filed: 11/01/2024 13:51 Note Text: RADIOLOGY SERVICE PROGRESS NOTE SERVICE DATE: 11/01/2024 SERVICE TIME: 11:26 AM PATIENT IDENTITY VERIFICATION COMPLETED USING TWO (2) STANDARD IDENTIFIERS: Name and Date of confirmed by patient verbally FALL SCREENING: Has the patient had 2 falls in the last year or 1 fall with injury or currently using an Ambulatory Assistive Device (Walker, Cane, Wheelchair, Crutches, etc.)? No PATIENT GENDER DATA: .male ALLERGIES: Reviewed and unchanged MEDICATIONS REVIEWED: Yes PATIENT RELEVANT IMPLANT DATA REVIEWED: Not Applicable PATIENT PRESENTS WITH AN IMPLANTABLE OR ATTACHED CERTIFIED OPHTHALMIC SURGICAL ASSISTANT: No CREATININE: Creatinine Date Value Ref Range Status 08/16/2024 1.55 (H) 0.73 - 1.22 mg/dL Final 08/31/2018 1.02 0.73 - 1.22 mg/dL Final 12/10/2017 1.28 (H) 0.73 - 1.22 mg/dL Final Estimated Glomerular Filtration Rate Date Value Ref Range Status 08/16/2024 47 (L) >=60 mL/min/1.73m? Final Comment: Estimated Glomerular Filtration Rate (eGFR) is calculated using the 2020 CKD-EPI creatinine equation. This equation utilizes serum creatinine, sex, and age as parameters. The creatinine assay has traceable calibration to isotope dilution-mass spectrometry. Refer to KDIGO guidelines for clinical interpretation. In patients with unstable renal function, e.g. those with acute kidney injury, the eGFR may not accurately reflect actual GFR. eGFR- Date Value Ref Range Status 08/31/2018 >60 Final P.O.C.T. RESULTS: N/A November 01, [address] PERFORMED: No IV SITE: Ambulatory: A peripheral IV was started in the Left hand with a Angio cath: 24 gauge. POST EXAM PIV STATUS: Discontinued PROCEDURE TYPE: NM Parathyroid: 204 microcurries of Nal 123 capsules was administered orally at 1055. 34.0 mCi of Tc99m Sestamibi was injected IV at 13:50. PATIENT DISCHARGED TO: Ambulatory patient, left [place] department area. Is this a therapy: No A Diagnostic radioactive procedure has taken place, with no further precautions necessary other than routine body substance precautions. More information regarding radiation safety can be found using this link: [email or web address] 20Diagnostic%[email or web address]%20Medicine %[email or web address] SIGNATURE: RT Mariela(R) PATIENT NAME: Bang Sharma DATE: November 01, 2024 TIME: 11:26 AM PAGER/CONTACT #: [facility] 11-01-2024 Instructions Luana Boss PA-C - 11/01/2024 9:37 AM EDT Images from the original note were not included. [facility] PATIENT PREOPERATIVE INSTRUCTIONS No ref. provider found has scheduled you for your procedure at this surgery center: [facility]: [phone] -- [address] [place] [address]. Please read below carefully for your personalized instructions. Dietary Restrictions: - No solid food after midnight. - You may have 12 ounces of clear liquids (water, clear juices such as apple juice or gatorade, carbonated beverages, clear tea, black coffee, jello) until 2 hours before scheduled arrival at facility. Medications: Unless instructed differently below, stay on all of your medications until your surgery. If you start any new medications after today's visit, please contact your surgeon. Pre-Surgery Med Instructions Medication Instructions Aspirin 81 mg tab Per surgeon's instructions meloxicam (MOBIC) 15 mg tablet Hold 7 days before surgery. Last dose . flecainide (TAMBOCOR) 100 mg tablet If you normally take this medication in the morning, take the morning of surgery. Magnesium 30 mg tablet Do not take the day of surgery amLODIPine (NORVASC) 10 mg tablet If you normally take this medication in the morning, take the morning of surgery. losartan-hydrochlorothiazide (HYZAAR) 100-25 mg per tablet Do not take the day of surgery If you take any medications for erectile dysfunction-Cialis (Tadalafil), Levitra, Staxyn (Vardenafil) Viagra (Sildenenafil please do not take these for 48 hours before surgery. If you start any new medications after today's visit, please contact the surgeon's office. If you are currently using a fneb-qom-qvqu injectable or oral medication for diabetes or weight loss such as Dulaglutide (Trulicity), Exenatide (Byetta, Bydureon), Liraglutide (Victoza, Saxenda), Semaglutide (Ozempic, Wegovy, Rybelsus), or Tirzepatide (Mounjaro), the medicine should be stopped at least 7 days before surgery. These medicines can cause food to remain in your stomach for a very long time and increase the risks from surgery and anesthesia. Not stopping the medication for a long enough time may result in your surgery being rescheduled. Blood Thinning Medications: - Stop NSAIDS (Ibuprofen, Advil, Aleve, Motrin, Celebrex, Mobic, etc.) 7 days before surgery, as directed by your surgeon. - Do NOT stop aspirin or other anticoagulants without consulting with your jet blade polisher or prescribing physician. - Stop ALL herbal and dietary supplements 7 days before surgery. - You may take Tylenol (Acetaminophen) or any of your pain medications that do not contain aspirin or NSAIDS as needed. Important Reminders: - If you use CPAP/BIPAP, bring the machine with you to the surgery center. - If you are prescribed inhalers for breathing, continue using them. If you are on dialysis, please check with your dialysis center or manager fine to see if any adjustments need to be made to your schedule for the week of your surgery - Candy, mints, and tobacco products are NOT permitted the morning of surgery. - Hearing aids, dentures and glasses may be worn the morning of surgery. - NO jewelry, body piercings, makeup, hairpins or contacts are to be worn the day of surgery. If you develop symptoms such as a fever, cold, or flu, or have other changes to your health within TWO DAYS of scheduled surgery or the morning of surgery, please contact the surgery center above. Personal Belongings: -Please have photo ID and insurance cards. -If you do not have a copy of advance directives on file with us, please bring a copy with you on the day of surgery. - Leave ALL valuables and money at home or with family members. For Outpatient Procedures: - YOU MUST HAVE A RESPONSIBLE CERTIFIED OPHTHALMIC SURGICAL ASSISTANT TAKE YOU HOME. A DIRECT SALES REPRESENTATIVE OR REMOTE SENSING SURVEYOR CANNOT BE MADE A RESPONSIBLE CERTIFIED OPHTHALMIC SURGICAL ASSISTANT. - We recommend that a responsible person stays with you overnight to take care of you. - You cannot stay in a hotel alone after outpatient surgery. You will not be permitted to have your surgery, if you do not have someone to take care of you. Arrival Time for Surgery: - The Surgery Center or hospital where you are having surgery will call the afternoon before surgery (or Thursday for Thursday surgery) with a scheduled arrival time. - If you have not heard by 4 pm, please contact the surgery center above. Please be aware that emergency situations arise, which may delay or change your surgical time. If this happens, we will notify you as soon as possible and regret any inconvenience. If you already have an Advance Directive, please fax a copy to [phone] or email to for it to be added to your chart. If you do not have an Advance Directive, you can find the appropriate form and more information at [email or web address]. We recommend that you complete the Advance Directive form found on the website and bring it with you the day of your surgery. It can be witnessed and scanned into your chart that day. Luana Boss PA-C documented in this encounter [facility] 11-01-2024 History and physical note Images from the original note were not included. 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 AMLODIPINE 10 MG TABLET Take 10 mg by mouth once daily. Follows with PCP. Last 3 Encounter BP Readings: Date: BP: 11/01/2024 145/79 09/13/2024 124/63 08/16/2024 127/70 Class 1 obesity due to excess calories without serious comorbidity with body mass index (BMI) of 34.0 to 34.9 in adult Body mass index is 34.02 kg/m . 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 Managed with flecainide and and ASA Follows with Dr. Davis [facility] 10/25/24 SVT (supraventricular tachycardia) (HCC) H/o cardioversion 2015 Sinus lanette on ECG today Managed with flecainide Follows with Dr. Davis [facility] 10/25/24 ANESTHESIA FINDINGS: Intubation History: No abnormal airway history Significant Anesthesia Considerations: none Airway History: No abnormal airway history Zaragoza Activity Status Index: METS: Walk indoors, such as around the house (1.75 METs) Do light work around the house, such as dusting or washing dishes (2.70 METs) Take care of self; that is eating, dressing, bathing, using the toilet (2.75 METs) Walk a block or two on level ground (2.75 METs) Do moderate work around the house, such as vacuuming, sweeping floors, or carrying in groceries (3.50 METs) Do yardwork, such as raking leaves, weeding, or pushing a power mower (4.50 METs) Climb a flight of stairs or walk up a hill (5.50 METs) DASI Score: 23.45 Patient denies any chest pain or undue shortness of breath with the above physical activity. STOP-Bang Score: STOP-Bang Score: (+REMY) [id number] Score: Age: >=75 Sex: male Hypertension history: Yes [id number] Score: ARISCAT Score: Age: 51-80 Preoperative SpO2: >=96% Preoperative anemia: Yes Duration of surgery: <2 hrs Emergency procedure: No ARISCAT Score: I - PHYSICAL EVALUATION AIRWAY Patient intubated: No. Tracheostomy tube not present Mallampati: IV. TM distance: >3 FB. Neck ROM: full ROM without neurological symptoms. Mouth opening: adequate. Short neck: no. Thick neck: no Microretrognathia/Micronagthia/Re cessed Chin: No DENTAL Dental findings: teeth intact. Additional comments: +crowns. II - ANESTHESIA PLAN Beta Gloria Monitoring Plan Post Procedure Analgesic Plan Prepared for surgery: This patient is optimally prepared for surgery CONSULTS: Patient does not require consults for optimization at this time. The Following Tests/Procedures Have Been Initiated: Labs and EKG per surgical service Planned Anesthetic: Per anesthesia choice REASON FOR VISIT: Bang Sharma is a 74 year old male who is scheduled for Bilateral - PARATHYROIDECTOMY at the request of for consultation. My final recommendation will be communicated back to the requesting physician by way of shared medical record or letter. Subjective CHIEF COMPLAINT: Pre-op exam HPI: Bang Sharma is a 74 year old male who presents to [facility] for the above procedure. Patient reports history of Hyperparathyroidism. Denies any CP, SOB, fever, chills, n/v/d, or dizziness. Recommended above procedure and elects to proceed. Patient is scheduled for procedure on 11/14/2024 at [facility]. REVIEW OF SYSTEMS: General: No weight loss, malaise or fevers. Neurological: No history of TIA's, stroke, MACHINE PLASTER MIXER tumor, impaired sensorium, hemiplegia, paraplegia or quadraplegia. No neurological symptoms or problems. Respiratory: Positive for: obstructive sleep apnea and CPAP/BiPAP compliant. Negative for: asthma, COPD and current cough. Cardiovascular: +h/o VT +LE edema, SOB Denies CP, orthopnea, PND, LE edema, palpitations, syncope, lightheadedness or dizziness. Positive for: atrial fibrillation and hypertension GI: No history of GI symptoms or problems. No history of esophageal varices, recent ascites, or ETOH greater than 2 drinks per day. : No history of dysuria, frequency or incontinence, stones or chronic kidney disease. No difficulty urinating, nocturia > 1 time per night or hematuria. Endocrine: No history of diabetes. Has not taken steroids within the past 30 days. No history of endocrinological symptoms or problems. Hematology: No history of bleeding or clotting disorder. Patient is not taking anti-coagulation or platelet medications. No history of hematological symptoms or problems. 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 Musculoskeletal: Negative for joint pain or swelling, back pain or muscle pain. Skin: Negative for lesions, rash and itching. Implanted Devices: Has implanted device Implants: Loop recorder. PAST MEDICAL HISTORY Diagnosis Date Arthritis Atrial fibrillation (HCC) Class 2 obesity due to excess calories without serious comorbidity with body mass index (BMI) of 35.0 to 35.9 in adult 08/24/2017 Essential hypertension 08/24/2017 HTN (hypertension) REMY (obstructive sleep apnea) Paroxysmal atrial fibrillation (HCC) 08/24/2017 SVT (supraventricular tachycardia) (HCC) controlled on amiodarone PAST SURGICAL HISTORY Procedure Laterality Date CARDIOVERSION 2015 CYSTOCELE REPAIR 2010 LEFT HEART CATH,PERCUTANEOUS PAST SURGICAL HISTORY OF hernia repair PAST SURGICAL HISTORY OF 2008 trigger finger release PAST SURGICAL HISTORY OF 2015 hand surgery PAST SURGICAL HISTORY OF 08/2017 radical resection of right tibial-Chondrosarcoma TONSILLECTOMY HX FAMILY HISTORY Problem Relation Age of Onset Diabetes Mother other (Lymphoma) Father Diabetes Maternal Grandmother Anesthesia Problems No Family History SOCIAL HISTORY: Social History Tobacco Use Smoking status: Never Passive exposure: Past Smokeless tobacco: Never Substance Use Topics Alcohol use: Not Currently Drug use: Never Prior to Admission medications as of 11/01/24 0928 Medication Sig Last Dose Taking Aspirin 81 mg tab Take 81 mg by mouth. Yes meloxicam (MOBIC) 15 mg tablet Take 15 mg by mouth once daily. Yes flecainide (TAMBOCOR) 100 mg tablet Take 100 mg by mouth two times a day. Yes Magnesium 30 mg tablet Take 500 mg by mouth once daily. Yes amLODIPine (NORVASC) 10 mg tablet Take 10 mg by mouth once daily. Yes losartan-hydrochlorothiazide (HYZAAR) 100-25 mg per tablet Take 1 tablet by mouth once daily. Yes No medication comments found. ALLERGIES Allergen Reactions Penicillins Hives Insects Extract Other: See Comments Insect protein - eyes swell and blistering Covid Immunization Dates Current Care Gaps Covid-19 Vaccine ( season) Overdue since 06/20/2024 12/22/2023 Imm Admin: COVID-19 vaccine, age 12+ yr (PFIZER-BIONTECH COMIRNATY) 11/28/2022 Imm Admin: COVID-19 vaccine, age 12+ yr, bivalent (AdFinance-BIONTProtonet) 03/19/2022 Imm Admin: COVID-19 vaccine, age 12+ yr, bivalent (AdFinance-BIONTProtonet) 09/23/2021 Imm Admin: COVID-19 original vaccine, age 12+ yr, monovalent (AdFinance-BIONTProtonet - MELCHOR TOP) 02/04/2021 Imm Admin: COVID-19 original vaccine, age 12+ yr, monovalent (AdFinance-TheRouteBoxNTProtonet - PURPLE TOP) Only the first 5 history entries have been loaded, but more history exists. Objective PAIN ASSESSMENT: VITALS: BP 145/79 Pulse 62 Temp (Src) 97.6 (Temporal) Ht 6' 2 (1.88m) Wt 264 lb 15.9 oz (120.2kg) SpO2 96% BMI 34.01 kg/(m^2). PHYSICAL EXAM: General: alert and oriented, healthy appearance and obese. Pertinent negatives noted - not distressed. Skin: normal color, no rash or lesions. HEENT: EOM intact and pupils equal round. Cardiovascular: regular rate and rhythm, normal S1 and S2, no rub, murmurs, or gallop. Respiratory: normal breath sounds, no wheezes or crackles. No chest wall deformity or tenderness. Abdomen: bowel sounds present. Extremities: no peripheral cyanosis +1+ pitting edema of lower extremity R>L. Neurological: normal cognition and motor skills. Diagnostic tests reviewed for today's visit: Lab Value Units Date High Low HB 14.3 g/dL 11/01/2024 17.0 13.0 HCT 44.3 % 11/01/2024 51.0 39.0 WBC 5.86 k/uL 11/01/2024 11.00 3.70 PLT 307 k/uL 11/01/2024 400 150 NA 140 mmol/L 11/01/2024 144 136 K 4.5 mmol/L 11/01/2024 5.1 3.7 GLUC 108 mg/dL 11/01/2024 99 74 BUN 18 mg/dL 11/01/2024 24 9 CREAT 0.86 mg/dL 11/01/2024 1.22 0.73 PTSEC No results within date range. INR No results within date range. APTT No results within date range. ALT No results within date range. AST No results within date range. TBILI No results within date range. TSH No results within date range. Lab Value Units Date High Low HCGQT No results within date range. UHCG No results within date range. HCG, BODY* No results within date range. Lab Value Units Date High Low ABORHD No results within date range. ABSCREEN No results within date range. Hemoglobin A1C (%) Date Value 10/26/2019 5.6 Recent Results (from the past 8760 hours) ECG COMPLETE Collection Time: 11/01/24 11:55 AM Result Value Ventricular Rate 56 Atrial Rate 56 P-R Interval 174 QRS Duration 192 QT Interval 508 QTC Calculation (Bazett) 490 Calculated P Eunice 85 Calculated R Eunice -69 Calculated T Eunice 33 Impression SINUS BRADYCARDIA LEFT AXIS DEVIATION COMPLETE RIGHT BUNDLE BRANCH BLOCK ABNORMAL ECG No results found for this or any previous visit (from the past 32724 hours). Spirometry Data No data to display Cardiac testing ECHO 12/06/2020: Normal ejection fraction of 60 to 65% with a mildly enlarged left atrium and no other significant valvular abnormalities 11/21/2015 CVL report IMPRESSION: Successful direct-current cardioversion with jewish of sinus rhythm from atrial fibrillation with no immediate complication. 03/22/12: EPS EP study by Dr. Carmen Flores on 03/22/2012 for evaluation of wide-complex tachycardia in the setting of normal ejection fraction revealed normal HV interval but no evidence of any AH jump suggestive of dual AV node physiology and no tachycardia was induced. This was followed up with VEST with [facility] protocol which was negative for inducible [...] of atrial fibrillation seen. Lexiscan 12/13/2020: Negative Instructions Given to Patient: Instructions located in the after visit summary. Patient given verbal and written preop instructions and voices comprehension and compliance. SIGNATURE: Luana Boss PA-C PATIENT NAME: Bang Sharma DATE: 11/01/2024 TIME: 9:31 AM [facility] 11-01-2024 History and physical note Images from the original note were not included. 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 AMLODIPINE 10 MG TABLET Take 10 mg by mouth once daily. Follows with PCP. Last 3 Encounter BP Readings: Date: BP: 11/01/2024 145/79 09/13/2024 124/63 08/16/2024 127/70 Class 1 obesity due to excess calories without serious comorbidity with body mass index (BMI) of 34.0 to 34.9 in adult Body mass index is 34.02 kg/m . 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 Managed with flecainide and and ASA Follows with ADRIAN Bennett 10/25/24 SVT (supraventricular tachycardia) (HCC) H/o cardioversion 2015 Sinus lanette on ECG today Managed with flecainide Follows with ADRIAN Bennett 10/25/24 ANESTHESIA FINDINGS: Intubation History: No abnormal airway history Significant Anesthesia Considerations: none Airway History: No abnormal airway history Zaragoza Activity Status Index: METS: Walk indoors, such as around the house (1.75 METs) Do light work around the house, such as dusting or washing dishes (2.70 METs) Take care of self; that is eating, dressing, bathing, using the toilet (2.75 METs) Walk a block or two on level ground (2.75 METs) Do moderate work around the house, such as vacuuming, sweeping floors, or carrying in groceries (3.50 METs) Do yardwork, such as raking leaves, weeding, or pushing a power mower (4.50 METs) Climb a flight of stairs or walk up a hill (5.50 METs) DASI Score: 23.45 Patient denies any chest pain or undue shortness of breath with the above physical activity. STOP-Bang Score: STOP-Bang Score: (+REMY) [id number] Score: Age: >=75 Sex: male Hypertension history: Yes [id number] Score: ARISCAT Score: Age: 51-80 Preoperative SpO2: >=96% Preoperative anemia: Yes Duration of surgery: <2 hrs Emergency procedure: No ARISCAT Score: I - PHYSICAL EVALUATION AIRWAY Patient intubated: No. Tracheostomy tube not present Mallampati: IV. TM distance: >3 FB. Neck ROM: full ROM without neurological symptoms. Mouth opening: adequate. Short neck: no. Thick neck: no Microretrognathia/Micronagthia/Re cessed Chin: No DENTAL Dental findings: teeth intact. Additional comments: +crowns. II - ANESTHESIA PLAN Beta Gloria Monitoring Plan Post Procedure Analgesic Plan Prepared for surgery: This patient is optimally prepared for surgery CONSULTS: Patient does not require consults for optimization at this time. The Following Tests/Procedures Have Been Initiated: Labs and EKG per surgical service Planned Anesthetic: Per anesthesia choice REASON FOR VISIT: Bang Sharma is a 74 year old male who is scheduled for Bilateral - PARATHYROIDECTOMY at the request of for consultation. My final recommendation will be communicated back to the requesting physician by way of shared medical record or letter. Subjective CHIEF COMPLAINT: Pre-op exam HPI: Bang Sharma is a 74 year old male who presents to [facility] for the above procedure. Patient reports history of Hyperparathyroidism. Denies any CP, SOB, fever, chills, n/v/d, or dizziness. Recommended above procedure and elects to proceed. Patient is scheduled for procedure on 11/14/2024 at [facility]. REVIEW OF SYSTEMS: General: No weight loss, malaise or fevers. Neurological: No history of TIA's, stroke, MACHINE PLASTER MIXER tumor, impaired sensorium, hemiplegia, paraplegia or quadraplegia. No neurological symptoms or problems. Respiratory: Positive for: obstructive sleep apnea and CPAP/BiPAP compliant. Negative for: asthma, COPD and current cough. Cardiovascular: +h/o VT +LE edema, SOB Denies CP, orthopnea, PND, LE edema, palpitations, syncope, lightheadedness or dizziness. Positive for: atrial fibrillation and hypertension GI: No history of GI symptoms or problems. No history of esophageal varices, recent ascites, or ETOH greater than 2 drinks per day. : No history of dysuria, frequency or incontinence, stones or chronic kidney disease. No difficulty urinating, nocturia > 1 time per night or hematuria. Endocrine: No history of diabetes. Has not taken steroids within the past 30 days. No history of endocrinological symptoms or problems. Hematology: No history of bleeding or clotting disorder. Patient is not taking anti-coagulation or platelet medications. No history of hematological symptoms or problems. 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 Musculoskeletal: Negative for joint pain or swelling, back pain or muscle pain. Skin: Negative for lesions, rash and itching. Implanted Devices: Has implanted device Implants: Loop recorder. PAST MEDICAL HISTORY Diagnosis Date Arthritis Atrial fibrillation (HCC) Class 2 obesity due to excess calories without serious comorbidity with body mass index (BMI) of 35.0 to 35.9 in adult 08/24/2017 Essential hypertension 08/24/2017 HTN (hypertension) REMY (obstructive sleep apnea) Paroxysmal atrial fibrillation (HCC) 08/24/2017 SVT (supraventricular tachycardia) (HCC) controlled on amiodarone PAST SURGICAL HISTORY Procedure Laterality Date CARDIOVERSION 2016 CYSTOCELE REPAIR 2010 LEFT HEART CATH,PERCUTANEOUS PAST SURGICAL HISTORY OF hernia repair PAST SURGICAL HISTORY OF 2008 trigger finger release PAST SURGICAL HISTORY OF 2016 hand surgery PAST SURGICAL HISTORY OF 08/2017 radical resection of right tibial-Chondrosarcoma TONSILLECTOMY HX FAMILY HISTORY Problem Relation Age of Onset Diabetes Mother other (Lymphoma) Father Diabetes Maternal Grandmother Anesthesia Problems No Family History SOCIAL HISTORY: Social History Tobacco Use Smoking status: Never Passive exposure: Past Smokeless tobacco: Never Substance Use Topics Alcohol use: Not Currently Drug use: Never Prior to Admission medications as of 11/01/24 0928 Medication Sig Last Dose Taking Aspirin 81 mg tab Take 81 mg by mouth. Yes meloxicam (MOBIC) 15 mg tablet Take 15 mg by mouth once daily. Yes flecainide (TAMBOCOR) 100 mg tablet Take 100 mg by mouth two times a day. Yes Magnesium 30 mg tablet Take 500 mg by mouth once daily. Yes amLODIPine (NORVASC) 10 mg tablet Take 10 mg by mouth once daily. Yes losartan-hydrochlorothiazide (HYZAAR) 100-25 mg per tablet Take 1 tablet by mouth once daily. Yes No medication comments found. ALLERGIES Allergen Reactions Penicillins Hives Insects Extract Other: See Comments Insect protein - eyes swell and blistering Covid Immunization Dates Current Care Gaps Covid-19 Vaccine ( season) Overdue since 06/20/2024 12/22/2023 Imm Admin: COVID-19 vaccine, age 12+ yr (PFIZER-BIONTECH COMIRNATY) 11/28/2022 Imm Admin: COVID-19 vaccine, age 12+ yr, bivalent (PFIZER-BIONTECH) 03/19/2022 Imm Admin: COVID-19 vaccine, age 12+ yr, bivalent (PFIZER-BIONTECH) 09/23/2021 Imm Admin: COVID-19 original vaccine, age 12+ yr, monovalent (PFIZER-BIONTECH - MELCHOR TOP) 02/04/2021 Imm Admin: COVID-19 original vaccine, age 12+ yr, monovalent (PFIZER-BIONTECH - PURPLE TOP) Only the first 5 history entries have been loaded, but more history exists. Objective PAIN ASSESSMENT: VITALS: BP 145/79 Pulse 62 Temp (Src) 97.6 (Temporal) Ht 6' 2 (1.88m) Wt 264 lb 15.9 oz (120.2kg) SpO2 96% BMI 34.01 kg/(m^2). PHYSICAL EXAM: General: alert and oriented, healthy appearance and obese. Pertinent negatives noted - not distressed. Skin: normal color, no rash or lesions. HEENT: EOM intact and pupils equal round. Cardiovascular: regular rate and rhythm, normal S1 and S2, no rub, murmurs, or gallop. Respiratory: normal breath sounds, no wheezes or crackles. No chest wall deformity or tenderness. Abdomen: bowel sounds present. Extremities: no peripheral cyanosis +1+ pitting edema of lower extremity R>L. Neurological: normal cognition and motor skills. Diagnostic tests reviewed for today's visit: Lab Value Units Date High Low HB 14.3 g/dL 11/01/2024 17.0 13.0 HCT 44.3 % 11/01/2024 51.0 39.0 WBC 5.86 k/uL 11/01/2024 11.00 3.70 PLT 307 k/uL 11/01/2024 400 150 NA 140 mmol/L 11/01/2024 144 136 K 4.5 mmol/L 11/01/2024 5.1 3.7 GLUC 108 mg/dL 11/01/2024 99 74 BUN 18 mg/dL 11/01/2024 24 9 CREAT 0.86 mg/dL 11/01/2024 1.22 0.73 PTSEC No results within date range. INR No results within date range. APTT No results within date range. ALT No results within date range. AST No results within date range. TBILI No results within date range. TSH No results within date range. Lab Value Units Date High Low HCGQT No results within date range. UHCG No results within date range. HCG, BODY* No results within date range. Lab Value Units Date High Low ABORHD No results within date range. ABSCREEN No results within date range. Hemoglobin A1C (%) Date Value 10/26/2019 5.6 Recent Results (from the past 8760 hours) ECG COMPLETE Collection Time: 11/01/24 11:55 AM Result Value Ventricular Rate 56 Atrial Rate 56 P-R Interval 174 QRS Duration 192 QT Interval 508 QTC Calculation (Bazett) 490 Calculated P Eunice 85 Calculated R Eunice -69 Calculated T Eunice 33 Impression SINUS BRADYCARDIA LEFT AXIS DEVIATION COMPLETE RIGHT BUNDLE BRANCH BLOCK ABNORMAL ECG No results found for this or any previous visit (from the past 98929 hours). Spirometry Data No data to display Cardiac testing ECHO 12/06/2020: Normal ejection fraction of 60 to 65% with a mildly enlarged left atrium and no other significant valvular abnormalities 11/21/2015 CVL report IMPRESSION: Successful direct-current cardioversion with jewish of sinus rhythm from atrial fibrillation with no immediate complication. 03/22/12: EPS EP study by Dr. Carmen Flores on 03/22/2012 for evaluation of wide-complex tachycardia in the setting of normal ejection fraction revealed normal HV interval but no evidence of any AH jump suggestive of dual AV node physiology and no tachycardia was induced. This was followed up with VEST with [facility] protocol which was negative for inducible [...] of atrial fibrillation seen. Lexiscan 12/13/2020: Negative Instructions Given to Patient: Instructions located in the after visit summary. Patient given verbal and written preop instructions and voices comprehension and compliance. SIGNATURE: Luana Boss PA-C PATIENT NAME: Bang Sharma DATE: 11/01/2024 TIME: 9:31 AM documented in this encounter [facility] 10-25-2024 Note [facility] Electrophysiology Consult Note Reason for visit: Afib 10/25/2024 Patient is here today to discuss ablation and F/U [facility]. Patient is here today for a report from his loop monitor. Patient states he was in the hospital for cellulitis in his right leg back in August. Patient states he feels pretty good. Patient complains of fatigue, SOB, HALEY, leg swelling, dizziness with turning quickly. Patient denies chest pain, palpitations. Patient states he is having surgery for his thyroid in [place] on November 14. Patient states he had a high calcium level and stopped drinking his well water which brought down the levels. Loop data was reviewed by me which showed evidence of atrial fibrillation with aberrancy noted on May 08, 2024 and an episode that was noted in August 24, 2024 was noise. He is currently on flecainide 100 mg twice daily Review of Systems Constitutional: Positive for malaise/fatigue. Cardiovascular: Positive for dyspnea on exertion and leg swelling. Respiratory: Positive for shortness of breath. Neurological: Positive for dizziness. 06/14/2024 Patient here for 3 mo follow [...] issues. Prior HPI: Bang Sharma is a 74 y.o. year old with prior history of [...] This was followed up with VEST with [facility] protocol which was negative for inducible [...] CVL report IMPRESSION: Successful direct-current cardioversion with jewish of sinus rhythm from atrial fibrillation with no immediate complication. 03/22/12: EPS EP study by Dr. Carmen Flores on 03/22/2012 for evaluation of wide-complex tachycardia in the setting of normal ejection fraction revealed normal HV interval but no evidence of any AH jump suggestive of dual AV node physiology and no tachycardia was induced. This was followed up with VEST with [facility] protocol which was negative for inducible arrhythmias subsequently Isuprel was started and again this was repeated and no evidence of jump or any echo beats and repeat the ventricular stimulation study was negative for any arrhythmias 01/29/12:CATH Impression: 1. Normal coronary angiogram. 2. Mild systemic hypertension. 3. Maria Dolores (more content not included)... [facility] 10-04-2024 Telephone encounter Note Are you an Endocrinology Supervisor Telephone Information located at [facility]? Yes Patient Name: Bang Sharma Age: [age] year old Requestor: Dora Larkin Reason for Exam: NM Parathyroid w SPECT/CT Orders needed prior to scheduling: NM PARATHYROID W SPECT/CT [id number] Are all orders above present: Yes When will patient be scheduled: Day 1: 10/31 No Doses on Thursday Route to [place] Schedulers @ P [facility] Scheduling Hyperthyroidism or Nodule (100-300 microCi I-123 Capsules for Diagnostic Imaging) 24 Hour Uptake and Scan only (Thu - after 9:00 AM) If I-131 therapy is being considered, a must be performed within 24 hours of the I-131 therapy for women of child bearing age. If I-131 therapy is being considered, a woman should be told she should not breastfeed for six weeks prior to the date of therapy. Medication/Contrast Restrictions: The ordering staff is responsible for making patients and requestors/schedulers aware of medication and contrast restrictions. Please review and select appointment dates which comply with these restrictions, if necessary. Patients should not take the following thyroid medications prior to exam unless your physician tells you otherwise: Synthroid- stopped 4-6 weeks prior to exam Methimzole and PTU(Propylthiouracil) - stopped 1 week prior to exam Patient should not receive iodinated contrast 6 weeks prior. Example: (CT IV Dye) Length of study: 1 - 1 1/2 hours [facility] 10-04-2024 Miscellaneous Notes Are you an Endocrinology Supervisor Telephone Information located at [facility]? Yes Patient Name: Bang Sharma Age: [age] year old Requestor: Dora Larkin Reason for Exam: NM Parathyroid w SPECT/CT Orders needed prior to scheduling: NM PARATHYROID W SPECT/CT [id number] Are all orders above present: Yes When will patient be scheduled: Day 1: 10/31 No Doses on Thursday Route to [place] Schedulers @ P [place] Scheduling Hyperthyroidism or Nodule (100-300 microCi I-123 Capsules for Diagnostic Imaging) 24 Hour Uptake and Scan only (Thu - after 9:00 AM) If I-131 therapy is being considered, a must be performed within 24 hours of the I-131 therapy for women of child bearing age. If I-131 therapy is being considered, a woman should be told she should not breastfeed for six weeks prior to the date of therapy. Medication/Contrast Restrictions: The ordering staff is responsible for making patients and requestors/schedulers aware of medication and contrast restrictions. Please review and select appointment dates which comply with these restrictions, if necessary. Patients should not take the following thyroid medications prior to exam unless your physician tells you otherwise: Synthroid- stopped 4-6 weeks prior to exam Methimzole and PTU(Propylthiouracil) - stopped 1 week prior to exam Patient should not receive iodinated contrast 6 weeks prior. Example: (CT IV Dye) Length of study: 1 - 1 1/2 hours documented in this encounter [facility] 09-13-2024 History of Present illness Narrative The [facility] Endocrinology and Metabolism [place] Department of Endocrine Surgery Geneva Butler M.D. [address] [place] [address] Mr. Bang Sharma was seen in the office today in consultation for primary hyperparathyroidism. The patient was referred by Dr. Herbre Donald, and my findings and recommendations will be communicated by way of the shared medical record. Thank you for referring your patient, Mr. Sharma, for evaluation of primary hyperparathyroidism. As you know, he is a 73-year-old male who was incidentally found to have elevated calcium levels on routine blood work. Subsequent biochemical work-up also revealed elevated PTH levels. The diagnosis of primary hyperparathyroidism was made, and he was referred here for further evaluation. The patient's past medical history is significant for hypertension, chondrosarcoma, atrial fibrillation, and sleep apnea. His medications include flecainide, metoprolol, amlodipine, losartan-HCTZ, amiodarone, potassium meloxicam, and aspirin. The patient's past surgical history is significant for inguinal hernia repairs, tonsillectomy, and right leg surgery. In terms of his family history, two of his daughters had hyperparathyroidism. The patient denies any history of ionizing radiation to the head or neck. In terms of symptoms related to primary hyperparathyroidism, he denies any kidney stones or pathologic fractures. However, he does have fatigue and polyuria/polydypsia. Latest Ref Rng 08/31/2018 08/16/2024 - PARATHYROID DATA SHEET Calcium 8.5 - 10.2 mg/dL 10.2 Calcium 8.5 - 10.2 mg/dL 11.2 (H) PTH, Intact 15 - 65 pg/mL 106 (H) Phosphorus 2.7 - 4.8 mg/dL 2.2 (L) Creatinine 0.73 - 1.22 mg/dL 1.02 Creatinine 0.73 - 1.22 mg/dL 1.55 (H) Vitamin D 25 Hydroxy 31.0 - 80.0 ng/mL 32.7 Vit D1,25 Dihydroxy 19.9 - 79.3 pg/mL 45.7 He has not yet undergone a parathyroid scan. His most recent bone density scan performed on 07/18/24 revealed normal bone density. On physical examination, Mr. Sharma is a healthy appearing man in no acute distress. Inspection of the head and neck reveals no obvious abnormalities. Palpation of the neck reveals no thyromegaly or cervical lymphadenopathy. Ultrasound examination was performed in the office. This revealed a thyroid gland that was overall normal in size with a fine uniform echogenicity. There were a few subcm nodules. Posterior to the mid aspect of the left thyroid gland was a potential lesion. No areas were seen to suggest an abnormal parathyroid gland. In summary, Mr. Sharma is a 73-year-old male with biochemical studies that show clear evidence of primary hyperparathyroidism. The indications, risks, benefits, and alternatives of a parathyroid exploration were explained to the patient in detail. I will keep you informed as to his perioperative course. I appreciate being involved in the care of your patient, and please feel free to contact me should you have questions or concerns. GENEVA BUTLER M.D. CC: Herber Donald M.D. Alvin Lo D.O. documented in this encounter [facility] 09-13-2024 Note HNO ID: [id number] Author: GENEVA BUTLER MD Service: ? Author Type: Physician Type: Progress Notes Filed: 09/13/2024 12:00 Note Text: The [facility] Endocrinology and Metabolism [place] Department of Endocrine Surgery Geneva Butler M.D. [address] [place] [address] Mr. Bang Sharma was seen in the office today in consultation for primary hyperparathyroidism. The patient was referred by Dr. Herber Donald, and my findings and recommendations will be communicated by way of the shared medical record. Thank you for referring your patient, Mr. Sharma, for evaluation of primary hyperparathyroidism. As you know, he is a 73-year-old male who was incidentally found to have elevated calcium levels on routine blood work. Subsequent biochemical work-up also revealed elevated PTH levels. The diagnosis of primary hyperparathyroidism was made, and he was referred here for further evaluation. The patient's past medical history is significant for hypertension, chondrosarcoma, atrial fibrillation, and sleep apnea. His medications include flecainide, metoprolol, amlodipine, losartan-HCTZ, amiodarone, potassium meloxicam, and aspirin. The patient's past surgical history is significant for inguinal hernia repairs, tonsillectomy, and right leg surgery. In terms of his family history, two of his daughters had hyperparathyroidism. The patient denies any history of ionizing radiation to the head or neck. In terms of symptoms related to primary hyperparathyroidism, he denies any kidney stones or pathologic fractures. However, he does have fatigue and polyuria/polydypsia. Latest Ref Rng 08/31/2018 08/16/2024 - PARATHYROID DATA SHEET Calcium 8.5 - 10.2 mg/dL 10.2 Calcium 8.5 - 10.2 mg/dL 11.2 (H) PTH, Intact 15 - 65 pg/mL 106 (H) Phosphorus 2.7 - 4.8 mg/dL 2.2 (L) Creatinine 0.73 - 1.22 mg/dL 1.02 Creatinine 0.73 - 1.22 mg/dL 1.55 (H) Vitamin D 25 Hydroxy 31.0 - 80.0 ng/mL 32.7 Vit D1,25 Dihydroxy 19.9 - 79.3 pg/mL 45.7 He has not yet undergone a parathyroid scan. His most recent bone density scan performed on 07/18/24 revealed normal bone density. On physical examination, Mr. Sharma is a healthy appearing man in no acute distress. Inspection of the head and neck reveals no obvious abnormalities. Palpation of the neck reveals no thyromegaly or cervical lymphadenopathy. Ultrasound examination was performed in the office. This revealed a thyroid gland that was overall normal in size with a fine uniform echogenicity. There were a few subcm nodules. Posterior to the mid aspect of the left thyroid gland was a potential lesion. No areas were seen to suggest an abnormal parathyroid gland. In summary, Mr. Sharma is a 73-year-old male with biochemical studies that show clear evidence of primary hyperparathyroidism. The indications, risks, benefits, and alternatives of a parathyroid exploration were explained to the patient in detail. I will keep you informed as to his perioperative course. I appreciate being involved in the care of your patient, and please feel free to contact me should you have questions or concerns. GENEVA BUTLER M.D. CC: Herber Donald M.D. Alvin Lo D.O. [facility] 09-13-2024 Instructions Arlene Florian MA - 09/13/2024 11:05 AM EDT Thank you for choosing the [facility] Department of Endocrinology, Diabetes and Metabolism. Did you know that you need to call 48 hours in advance of your scheduled visit, if you are unable to make your appointment? The Endocrinology and Metabolism [place] thanks you for your commitment, because patients not showing to their appointment results in a lost opportunity for patients to receive [facility] health care at the [facility]. To Cancel an appointment, please choose one of the following: - Call the Appointment Call Center at [phone] - From Sold, Go to Appointments - Cancel Appts If cancelling, consider your need to reschedule to prevent further delays in your care. To Schedule an appointment, please choose one of the following: - Call the Appointment Call Center at [phone] - From Sold, Go to Appointments - Request an Appt documented in this encounter [facility] 08-30-2024 Evaluation note Diagnosis Onset Date Resolution Atrial fibrillation acute August 182024 11:31am Cellulitis of leg without foot, right acute August 30, 2024 11:31am Hypercholesterolemia acute August 30, 2024 11:31am Hypertension acute August 30 11:31am Obesity acute August 30, 2024 11:31am REMY (obstructive sleep apnea) acute August 30, 2024 11:31am Primary hyperparathyroidism acute August 30, 2024 11:31am Swelling of right lower extremity acute August 30, 2024 11:31am Pneumonia noneactive August 30, 2024 11:31am Atrial fibrillation acute August 192024 11:13am Cellulitis of leg without foot, right acute September 15, 2024 11:13am Hypertension acute September 15 11:13am Obesity acute September 15, 2024 11:13am Primary hyperparathyroidism acute September 15, 2024 11:13am Swelling of right lower extremity acute September 15, 2024 11:13am [facility] Work Phone: 1(912) 516-404105-01-2025 Telephone encounter Note* Telephone Encounter - Herber Donald MD - 08/18/2024 11:39 AM EDT Noted, BMD normal on 07/18/24 DXA, thanks [facility] Work Phone: 1(236) 391-733805-01-2025 Miscellaneous Notes* Telephone Encounter - Herber Donald MD - 08/18/2024 11:39 AM EDT Noted, BMD normal on 07/18/24 DXA, thanks * Telephone Encounter - Marina Mccracken MA - 08/18/2024 10:36 AM EDT Images from the original note were not included. A form has been received from [facility] for DXA Bone Densitometry Report. Sent to Dr Donald for consideration. Sent to Medical Records to be scanned. [facility] Telephone encounter Note * Telephone Encounter - Marina Mccracken MA - 08/18/2024 10:36 AM EDT Images from the original note were not included. A form has been received from [facility] for DXA Bone Densitometry Report. Sent to Dr Donald for consideration. Sent to Medical Records to be scanned. [facility]04-30-2025 Telephone encounter Note* Telephone Encounter - Edd Sosa - 08/17/2024 3:35 PM EDT 08/17/2024 INTAKE PENDING-[facility] SENT TO CONFIRM APPT. AND COMPLETE INTAKE QUESTIONS-NEED PARTIAL LABS, URINE, DXA, AND MIBI-- CALLED THE LAB TO POSSIBLY ADD ON IONIZED CALCIUM AND VIT D1 25. ENDOCRINE SURGERY PATIENT WORKSHEET Initial Call Date: August 17, 2024 Reason for Consult/ Referral: Hyperparathyroid PATIENT DEMOGRAPHICS Name: Bang Sharma [facility]#: [id number] : 1950 AGE: [age] year old Contact Numbers: Home: (home) Work: There is no work phone number on file. PATIENT PHYSICIAN INFORMATION Referring Doctor: Address: Phone: Industrial Roofer: Address: Phone: PCP: Alvin Lo (Adal) [address] [place] [address] PAST TREATMENT Office notes: SEE EPIC Medications: NONE THAT APPLY Pre-Visit Testing Latest Ref Rng 08/16/2024 Albumin 3.9 - 4.9 g/dL 4.5 Calcium 8.5 - 10.2 mg/dL 11.2 (H) Phosphorus 2.7 - 4.8 mg/dL 2.2 (L) Glucose 74 - 99 mg/dL 89 BUN 9 - 24 mg/dL 21 Creatinine 0.73 - 1.22 mg/dL 1.55 (H) Sodium 136 - 144 mmol/L 143 Potassium 3.7 - 5.1 mmol/L 4.3 Chloride 98 - 107 mmol/L 107 CO2 22 - 30 mmol/L 23 Anion Gap 8 - 15 mmol/L 13 eGFR >=60 mL/min/1.73m 47 (L) Vitamin D 25 Hydroxy 31.0 - 80.0 ng/mL 32.7 PTH, Intact 15 - 65 pg/mL 106 (H) Imaging Reports: [facility] CD of Images: [facility] FNA: no FNA Slides: N/A Has the patient ever had thyroid or parathyroid surgery before: No Operative Reports: NONE AVAILABLE Pathology Reports: NONE AVAILABLE [facility]04-30-2025 Miscellaneous Notes* Telephone Encounter - Edd Sosa - 08/17/2024 3:35 PM EDT 08/17/2024 INTAKE PENDING-[facility] SENT TO CONFIRM APPT. AND COMPLETE INTAKE QUESTIONS-NEED PARTIAL LABS, URINE, DXA, AND MIBI-- CALLED THE LAB TO POSSIBLY ADD ON IONIZED CALCIUM AND VIT D1 25. ENDOCRINE SURGERY PATIENT WORKSHEET Initial Call Date: August 17, 2024 Reason for Consult/ Referral: Hyperparathyroid PATIENT DEMOGRAPHICS Name: Bang Sharma CCF#: [id number] : 1950 AGE: [age] year old Contact Numbers: Home: (home) Work: There is no work phone number on file. PATIENT PHYSICIAN INFORMATION Referring Doctor: Address: Phone: Industrial Roofer: Address: Phone: PCP: Alvin Lo (Adal) [address] [place] [address] PAST TREATMENT Office notes: [facility] Medications: NONE THAT APPLY Pre-Visit Testing Latest Ref Rng 08/16/2024 Albumin 3.9 - 4.9 g/dL 4.5 Calcium 8.5 - 10.2 mg/dL 11.2 (H) Phosphorus 2.7 - 4.8 mg/dL 2.2 (L) Glucose 74 - 99 mg/dL 89 BUN 9 - 24 mg/dL 21 Creatinine 0.73 - 1.22 mg/dL 1.55 (H) Sodium 136 - 144 mmol/L 143 Potassium 3.7 - 5.1 mmol/L 4.3 Chloride 98 - 107 mmol/L 107 CO2 22 - 30 mmol/L 23 Anion Gap 8 - 15 mmol/L 13 eGFR >=60 mL/min/1.73m 47 (L) Vitamin D 25 Hydroxy 31.0 - 80.0 ng/mL 32.7 PTH, Intact 15 - 65 pg/mL 106 (H) Imaging Reports: [facility] CD of Images: [facility] FNA: no FNA Slides: N/A Has the patient ever had thyroid or parathyroid surgery before: No Operative Reports: NONE AVAILABLE Pathology Reports: NONE AVAILABLE documented in this encounterAsht[facility]04-29-[facility] Instructions* Patient Instructions* Herber Donald MD - 08/16/2024 3:31 PM EDT Please get blood test today Will check Parathyroid scan Will schedule you with Dr Geneva Butler in endocrine surgery documented in this encounterAshtabula [facility]04-29-2025 NoteHNO ID: [id number] Author: HERBER DONALD MD Service: ? Author Type: Physician Type: Progress Notes Filed: 08/16/2024 15:37 Note Text: Mr. 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 Energy loss: No Fractures: broke his leg after he fell after cast removed following chondrosarcoma surgery Loss of Height: down 1/2 inch Joint/bone pain: both ankles, nothing new N/V: No Abdominal pain: No Back pain: No BM change: No Kidney stones: No Mental status/mood change: No Polydypsia/polyuria: thirsty, but could be due to CPAP Hydration: 6-7 cups water daily Calcium supplement: No, eating more cheese, 1-2 slices per day and sometimes milk with cereal Vitamin D: Yes, not sure of dose Bisphosphonate: No Other supplements: No Family h/o high calcium or kidney stones: one daughter had PHPT s/p parathyroidectomy All other Review of Systems reviewed and are negative. meloxicam (MOBIC) 15 mg tablet, Take 15 mg by mouth once daily., Disp: , Rfl: flecainide (TAMBOCOR) 100 mg tablet, , Disp: , Rfl: Magnesium 30 mg tablet, Take 500 mg by mouth once daily., Disp: , Rfl: amLODIPine (NORVASC) 2.5 mg tablet, Take 10 mg by mouth twice daily. , Disp: , Rfl: 3 losartan-hydrochlorothiazide (HYZAAR) 100-25 mg per tablet, Take 1 tablet by mouth once daily. , Disp: , Rfl: PAST MEDICAL HISTORY Diagnosis Date Arthritis Atrial fibrillation (HCC) Class 2 obesity due to excess calories without serious comorbidity with body mass index (BMI) of 35.0 to 35.9 in adult 08/24/2017 Essential hypertension 08/24/2017 HTN (hypertension) REMY (obstructive sleep apnea) Paroxysmal atrial fibrillation (HCC) 08/24/2017 SVT (supraventricular tachycardia) (HCC) controlled on amiodarone FAMILY HISTORY Problem Relation Age of Onset other (Lymphoma) Father Diabetes Mother Diabetes Maternal Grandmother Social History Tobacco Use Smoking status: Never Smokeless tobacco: Never Lives with and 36yo son, no tobacco or EtOH PE: BP 127/70 (BP Site: Left Arm, BP Position: Sitting, BP Cuff Size: Large Adult) Pulse 64 Wt 123.2 kg (271 lb 9.7 oz) BMI 33.95 kg/m? Last 3 Encounter Wt Readings: Date: Wt: 08/16/2024 123.2 kg (271 lb 9.7 oz) 11/23/2019 128.4 kg (283 lb) 06/30/2019 128.4 kg (283 lb) Gen - NAD, comfortable, pleasant Neck - No visible goiter, nodular, 25g CVS - RRR no murmurs Lung - CTAB, no rales Abd - +BS, soft, nt/nd Skin - normal texture, normal temperature MSK - / UE proximal muscle strength bilaterally, No CVA tenderness Neuro - normal relaxation phase of bilateral UE reflexes, No hand tremor Latest Ref Rng 06/24/2017 08/28/2017 08/29/2017 08/30/2017 12/10/2017 08/31/2018 Glucose 74 - 99 mg/dL 72 (L) 133 (H) 117 (H) 94 84 BUN 9 - 24 mg/dL 16 14 13 15 13 Creatinine 0.73 - 1.22 mg/dL 1.18 1.08 1.18 1.00 1.28 (H) 1.02 Sodium 136 - 144 mmol/L 143 141 137 140 140 Potassium 3.7 - 5.1 mmol/L 4.3 3.5 (L) 3.5 (L) 3.6 (L) 4.0 Chloride 97 - 105 mmol/L 103 102 100 101 102 CO2 22 - 30 mmol/L 30 24 25 25 25 Anion Gap 9 - 18 mmol/L 10 15 12 14 13 Calcium 8.5 - 10.2 mg/dL 10.2 8.6 9.0 8.8 10.2 eGFR- >60 >60 >60 >60 >60 >60 eGFR-All Other Races . >60 >60 >60 >60 56 >60 OSH Labs: 07/18/24 - 24 hour urine Calcim 310.4mg 07/07/24 - Ca 10.5, PTH 91, Vit D 36.6, Cr 1.13 Bang was seen today for thyroid problem. Diagnoses and all orders for this visit: Primary hyperparathyroidism (HCC) -labs c/w primary hyperparathyroidism -given 24 hr urine calcium >300mg would recommend parathyroidectomy -check serum labs today -NM Parathyroid scan ordered for localization -referral to endocrine surgery placed for parathyroidectomy -will try to get records of recent DXA scan at [facility] - RENAL FUNCTION PANEL; Future - VITAMIN D 25 HYDROXY; Future - PTH INTACT; Future - NM PARATHYROID W SPECT/CT; Future - CONSULT TO ENDOCRINE SURGERY; Future Hypercalcemia - NM PARATHYROID W SPECT/CT; Future F/u 6 months The assessment and benefits/risks of the plan were discussed with the patient who expressed understanding and was agreeable to that which is noted above. [facility]04-29-2025 History of Present illness Narrative* Herber Donald MD - 08/16/2024 3:07 PM EDT Mr. 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 Energy loss: No Fractures: broke his leg after he fell after cast removed following chondrosarcoma surgery Loss of Height: down 1/2 inch Joint/bone pain: both ankles, nothing new N/V: No Abdominal pain: No Back pain: No BM change: No Kidney stones: No Mental status/mood change: No Polydypsia/polyuria: thirsty, but could be due to CPAP Hydration: 6-7 cups water daily Calcium supplement: No, eating more cheese, 1-2 slices per day and sometimes milk with cereal Vitamin D: Yes, not sure of dose Bisphosphonate: No Other supplements: No Family h/o high calcium or kidney stones: one daughter had PHPT s/p parathyroidectomy All other Review of Systems reviewed and are negative. meloxicam (MOBIC) 15 mg tablet, Take 15 mg by mouth once daily., Disp: , Rfl: flecainide (TAMBOCOR) 100 mg tablet, , Disp: , Rfl: Magnesium 30 mg tablet, Take 500 mg by mouth once daily., Disp: , Rfl: amLODIPine (NORVASC) 2.5 mg tablet, Take 10 mg by mouth twice daily. , Disp: , Rfl: 3 losartan-hydrochlorothiazide (HYZAAR) 100-25 mg per tablet, Take 1 tablet by mouth once daily. , Disp: , Rfl: PAST MEDICAL HISTORY Diagnosis Date Arthritis Atrial fibrillation (HCC) Class 2 obesity due to excess calories without serious comorbidity with body mass index (BMI) of 35.0 to 35.9 in adult 08/24/2017 Essential hypertension 08/24/2017 HTN (hypertension) REMY (obstructive sleep apnea) Paroxysmal atrial fibrillation (HCC) 08/24/2017 SVT (supraventricular tachycardia) (HCC) controlled on amiodarone FAMILY HISTORY Problem Relation Age of Onset other (Lymphoma) Father Diabetes Mother Diabetes Maternal Grandmother Social History Tobacco Use Smoking status: Never Smokeless tobacco: Never Lives with and 36yo son, no tobacco or EtOH PE: BP 127/70 (BP Site: Left Arm, BP Position: Sitting, BP Cuff Size: Large Adult) Pulse 64 Wt 123.2 kg (271 lb 9.7 oz) BMI 33.95 kg/m Last 3 Encounter Wt Readings: Date: Wt: 08/16/2024 123.2 kg (271 lb 9.7 oz) 11/23/2019 128.4 kg (283 lb) 06/30/2019 128.4 kg (283 lb) Gen - NAD, comfortable, pleasant Neck - No visible goiter, nodular, 25g CVS - RRR no murmurs Lung - CTAB, no rales Abd - +BS, soft, nt/nd Skin - normal texture, normal temperature MSK - 5/5 UE proximal muscle strength bilaterally, No CVA tenderness Neuro - normal relaxation phase of bilateral UE reflexes, No hand tremor Latest Ref Rng 06/24/2017 08/28/2017 08/29/2017 08/30/2017 12/10/2017 08/31/2018 Glucose 74 - 99 mg/dL 72 (L) 133 (H) 117 (H) 94 84 BUN 9 - 24 mg/dL 16 14 13 15 13 Creatinine 0.73 - 1.22 mg/dL 1.18 1.08 1.18 1.00 1.28 (H) 1.02 Sodium 136 - 144 mmol/L 143 141 137 140 140 Potassium 3.7 - 5.1 mmol/L 4.3 3.5 (L) 3.5 (L) 3.6 (L) 4.0 Chloride 97 - 105 mmol/L 103 102 100 101 102 CO2 22 - 30 mmol/L 30 24 25 25 25 Anion Gap 9 - 18 mmol/L 10 15 12 14 13 Calcium 8.5 - 10.2 mg/dL 10.2 8.6 9.0 8.8 10.2 eGFR- >60 >60 >60 >60 >60 >60 eGFR-All Other Races . >60 >60 >60 >60 56 >60 OSH Labs: 07/18/24 - 24 hour urine Calcim 310.4mg 07/07/24 - Ca 10.5, PTH 91, Vit D 36.6, Cr 1.13 Bang was seen today for thyroid problem. Diagnoses and all orders for this visit: Primary hyperparathyroidism (HCC) -labs c/w primary hyperparathyroidism -given 24 hr urine calcium >300mg would recommend parathyroidectomy -check serum labs today -NM Parathyroid scan ordered for localization -referral to endocrine surgery placed for parathyroidectomy -will try to get records of recent DXA scan at [facility] - RENAL FUNCTION PANEL; Future - VITAMIN D 25 HYDROXY; Future - PTH INTACT; Future - NM PARATHYROID W SPECT/CT; Future - CONSULT TO ENDOCRINE SURGERY; Future Hypercalcemia - NM PARATHYROID W SPECT/CT; Future F/u 6 months The assessment and benefits/risks of the plan were discussed with the patient who expressed understanding and was agreeable to that which is noted above. documented in this encounterAshtabula [facility]03-[facility]25 NoteSUBJECTIVE Reason for Visit: Bang Sharma is a 73 y.o. year old male patient being seen for low heart rate. HPI: Bang Sharma is a 73 y.o. year old male with past medical history of uncontrolled HTN, paroxysmal atrial fibrillation status post cardioversion on 11/21/[address] Watson , loop recorder insertion (12/09/2023) and paroxysmal VT. 07/08/2024 office visit: The patient was seen and evaluated in the office today. He reports ongoing dyspnea on exertion, which has remained stable, along with palpitations and lower extremity edema. He denies chest pain, lightheadedness, or dizziness. 06/14/2024 office visit (Dr. Davis): Patient here for 3 mo follow up [...] mentioned SVT with no strips to review. Paroxysmal atrial fibrillation: s/p LOOP with evidence of atrial fibrillation noted on May 01, 2024 when he was sick with a URI during this time. So we will continue to monitor and if in the next 3 to 4 months he does not have any further A-fib then we will hold off on ablation Past Medical History: Diagnosis Date Abnormal ECG Arrhythmia HLD (hyperlipidemia) HTN (hypertension) LVH (left ventricular hypertrophy) PAF (paroxysmal atrial fibrillation) (CMS/HCC) Primary cardiomyopathy (CMS/HCC) PVT (paroxysmal ventricular tachycardia) (CMS/HCC) SVT (supraventricular tachycardia) Tachycardia Past Surgical History: Procedure Laterality Date CARDIAC CATHETERIZATION CARDIOVERSION HAND SURGERY Patient Active Problem List Diagnosis Chest pain [...] REMY (obstructive sleep apnea) Paroxysmal supraventricular tachycardia Primary cardiomyopathy (CMS/HCC) Right foot drop Tachycardia PAF (paroxysmal atrial fibrillation) (CMS/HCC) family history includes Coronary artery disease in an other family member; Hypertension in an other family member. Social History Tobacco Use Smoking status: Never Smokeless tobacco: Never Substance Use Topics Alcohol use: Yes Comment: occasional OBJECTIVE Visit Vitals Smoking Status Never Physical Exam Constitutional: General Appearance: well-developed, appears stated age. Level of Distress: no acute distress. Neck: Jugular Veins: normal jugular venous pressure. Lungs: Auscultation: no rales or rhonchi and normal breath sounds. Cardiovascular: Rate And Rhythm: regular Heart Sounds: normal S1 and s2; Systolic Murmur: not heard. Diastolic Murmur: not heard. Extremities: +1 lower extremity edema. Peripheral Pulses: Pulses: full and equal in all extremities except if noted. Abdomen: Inspection and Palpation: non distended or tender and soft. Musculoskeletal: Inspection: no joint tenderness or swelling. Neurologic: Gait: normal gait. Psychiatric: Mental Status: alert and normal affect. Skin: Inspection and Palpation: warm and dry. Allergies: Allergies Allergen Reactions Penicillins Hives Coreg [Carvedilol] Diarrhea Meperidine Metoprolol Outpatient Medications: Current Outpatient Medications Medication Instructions amLODIPine (NORVASC) 10 mg, oral, Every morning baclofen (LIORESAL) 10 mg, oral, As needed ferrous sulfate 325 (65 Fe) MG EC tablet 65 mg of iron, oral, Every other day, Do not crush, chew, or split. flecainide (TAMBOCOR) 100 mg, oral, 2 times daily losartan (Cozaar) 100 mg tablet 1 tablet, oral, Every other day losartan-hydrochlorothiazide (Hyzaar) 100-25 mg tablet 1 tablet, oral, Every morning magnesium 500 mg, oral, Daily RT meloxicam (Mobic) 15 mg tablet 1 tablet, oral, Daily nebivolol (BYSTOLIC) 5 mg, oral, Daily potassium gluconate 600 mg (99 mg) tablet oral Recent Labs: No visits with results within 2 Month(s) from this visit. Latest known visit with results is: Ancillary Procedure on 03/07/2024 Component Date Value BSA 03/23/2024 2.48 Labs 07/07/2024: Sodium 142, potassium 4.1, glucose 105, BUN 21, creatinine 1.13, EGFR greater than 60, calcium 10.5 I have personally reviewed and interpreted the following laboratory results: CBC, CMP, lipid profile, and any additional relevant lab work available at this time. These findings have been analyzed in the context of the patient's (more content not included)...[facility]02-25-2025 NoteUT Electrophysiology Consult Note Reason for visit: [...] This was followed up with VEST with [facility] protocol which was negative for inducible [...] CVL report IMPRESSION: Successful direct-current cardioversion with jewish of sinus rhythm from atrial fibrillation with no immediate complication. 03/22/12: EPS EP study by Dr. Carmen Flores on 03/22/2012 for evaluation of wide-complex tachycardia in the setting of normal ejection fraction revealed normal HV interval but no evidence of any AH jump suggestive of dual AV node physiology and no tachycardia was induced. This was followed up with VEST with [facility] protocol which was negative for inducible [...] with PACs a (more content not included)... [facility]12-17-2024 History of Present illness Narrative* Amanda Mustafa DO - 04/05/2024 1:45 PM EST Images from the original note [...] He did not discuss that with Dr. Joya. He states that they didtalk about doing [...] motor polyneuropathy causing numbness tingling and pain intohis feet. Patient EMG showed these findings. He [...] with footdrop and numbness and tingling. This isdue to a right peroneal neuropathy that occurred [...] possible reoccurrence of the chondrosarcoma to Dr. Joya. 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 Joya. Apparently they discussed doing an MRI and [...] to clinic: 3 weeks documented in this encounterMercy Hospital St. [id number] NoteCardiovascular Medicine [facility] SUBJECTIVE Chief Complaint Patient presents with Follow-up [...] edema, dizziness/LH, palpitations. Last HPI per Dr. Davis (02/12/21): CC: A-fib Mr. Sharma is a [...] This was followed up with BEST with [facility] protocol which was negative for inducible [...] Coreg [Carvedilol] Diarrhea Meperi (more content not included)...[facility] 03-11-2024 Evaluation note* Diagnosis Onset Date Resolution Status Admit Date Abdominal pain acute February 192023 11:00am Atrial fibrillation acute Novem mac 2023 11:00am Hypercalcemia acute March 112023 11:00am Hypercholesterolemia acute Nove mber 2023 11:00am Hypertension acute February 11:00am Medicare annual wellness vis it, subsequent acute March 11, 2 024 11:00am Obesity acute March 11, 2024 11:00am REMY (obstructive sleep apnea) acute March 11, 2024 11:00am Screening PSA (prostate spec ific antigen) acute March 11, 024 11:00am [facility] Work Phone: [phone]) 751-436811-06-2024 History of Present illness Narrative* Geoff Joshua, CHADT - 02/24/2024 1:00 PM EST Images from the original note were not included. Reason for Appointment: EMG Patient: Bang Sharma : 1950 EMG Computer: [employer] Referring Physician: Dr. Amanda Mustafa EMG: MINDY director community center: Geoff Joshua RT(R) Office Location: [facility] Reason for EMG: c/o numbness/tingling in right foot/ankle. Hx of surgery to right lower leg. No hx of DM. Not on blood thinners. Comments: Procedure was explained to the patient & who expressed understanding. Patient appeared to have tolerated the test well despite some discomfort due to the nature of the test. documented in this encounterMercy Hospital St. [id number] History of Present illness Narrative* Amanda Mustafa, DO - 02/22/2024 10:30 AM EST Images from the original note were not included. Chief Complaint Patient presents with Numbness Peripheral Neuropathy Subjective Bang Sharma, 73 y.o., male being seen in Neurology consultation at the request of Dr. Joya. Dr. Lo is his PCP. HPI Lower extremity numbness - labs @ [facility]; referral received from Dr Reina Joya DPM The patient states that his symptoms started [...] He did not discuss that with Dr. Joya. He states that they didtalk about doing [...] possible reoccurrence of the chondrosarcoma to Dr. Joya. Plan: I will order an electromyograph evaluation of the lower extremities to assess for nerve damage suchas lumbar radiculopathy, lumbar plexopathy, or peripheral neuropathy. Consider an AFO on the right May need to consider a cane Labs for Peripheral Neuropathy We will leave any workup for any possible reoccurrence of the chondrosarcoma to Dr. Joya. Apparently they discussed doing an MRI and [...] to clinic: 3 weeks documented in this encounterMercy Hospital St. [id number] NoteLOOP IMPLANT PROCEDURE NOTE DATE OF PROCEDURE: 12/09/23 PERFORMING PHYSICIAN: Dr. Alpesh Davis PATTERN LEASE INSPECTOR: JERROD INDICATIONS FOR PROCEDURE: 1. SVT/AF surveillance [...] the sternum on the left using the [employer] tool. The loop recorder was then [...] 2. Do not wet the incision. Alpesh Davis MD Cardiac Electrophysiology.[facility]02-09-2024 Evaluation note* Encounter Date Diagnosis Assessment Notes Treatment Notes Treatment Clinical Notes May, Anemia (ICD-10 - D64.9) MD [facility] Other 09-26-2023 NoteHNO ID: [id number] Author: Keri Lopez RN Service: ? Author Type: Registered Nurse Type: Progress Notes Filed: 01/13/2023 4:19 PM Note Text: I served as a scribe during this office visit encounter. Keri Lopez, [facility]09-26-2023 NoteHNO ID: [id number] Author: Haresh Pineda MD Service: ? 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 (CPT 77290 - 22) Placement of Prophylactic Carbon Fiber Tibial Nail, Right Tibia (CPT 19656) High Speed Ehsan and Adjuvant Treatment with 10% H202 (CPT 49964) Neruolysis and Dissection of Deep Peroneal Nerve (CPT 92111) Right Iliac Crest Marrow Aspiration/[place] ( CPT 76157) Diagnosis: Right Tibial Diaphysis Cartilage Lesion with [...] 0-110? 4/5 quadriceps strength 2+ DP pulses Imagin/26/23 Right tibia plain films --> Reviewed. Healed [...] the date of the service which included [id number] patient care, completing clinical documentation, obtaining and/or [...] information added by medical student, resident, nurse, E COMMERCE ANALYST/PAAnders that I have placed my signature directly below I have verified and either instructed them to document in a scribe function or document appropriately in the chart during the patient visit. Haresh Pineda MD in home baby sitter, CCLCM at [facility] HospitalEnvironmental Services Tech, Division of Musculoskeletal Oncology Co-Director of Sarcoma Care, [facility] Pager: [phone] (more content not included)...[facility] HospitalOohletol05-90-7762 History of Present illness Narrative* Haresh Pineda MD - 11/05/2021 5:19 PM EDT This note was created using [employer]. ISIAH SANCHEZ ORT MST FU Advanced: Did this patient have an adverse event since their last encounter?: No * Haresh Pineda MD - 11/05/2021 4:07 PM EDT Orthopaedic Surgery Follow-Up Clinic Note Surgery/Date: 08/27/2017 1. 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 (CPT 96327 - 22) 2. Placement of Prophylactic Carbon Fiber Tibial Nail, Right Tibia (CPT 05291) 3. High Speed Ehsan and Adjuvant Treatment with 10% H202 (CPT 49356) 4. Neruolysis and Dissection of Deep Peroneal Nerve (CPT 86748) 5. 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 Exam: RLE -- largely unchanged compared [...] the date of the service which included [id number] patient care, completing clinical documentation, obtaining and/or reviewing separately obtained history, performing a medically appropriate examination, counseling and educating the patient/family/caregiver, ordering medications, tests, or procedures, independently interpreting results (not separately reported) and communicating results to the patient/family/caregiver. Any information added by medical student, resident, nurse, E COMMERCE ANALYST/PA-C that I have placed my signature directly below I have verified and either instructed them to document in a scribe function or document appropriately in the chart during the patient visit. 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, site unspecified documented in this encounter [facility] note* 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, site unspecified documented in this encounter [facility] note* 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, site unspecified documented in this encounter [facility] note* Diagnosis Chronic pain of left ankle- Primary documented in this encounter [facility] [place]No [place] [employer] Other Evaluation note* Diagnosis Onset Date Resolution Status Anemia acute Atrial fibrillation acute Hypercholesterolemia acute Hypertension acute Obesity acute REMY (obstructive sleep apnea) acute [facility] Work Phone: Evaluation note* Diagnosis Idiopathic peripheral neuropathy- Primary Unspecified hereditary and idiopathic peripheral neuropathy 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 Weakness Other malaise and fatigue documented in this encounter [facility]* Diagnosis Pre-operative examination- Primary Preoperative examination, unspecified Chronic pain of right ankle SVT (supraventricular tachycardia) (HCC) Other specified cardiac dysrhythmias Paroxysmal atrial fibrillation (HCC) Atrial fibrillation Essential hypertension Unspecified essential hypertension REMY (obstructive sleep apnea) Obstructive sleep apnea (adult) (pediatric) 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, site unspecified Class 2 obesity due to excess calories without serious comorbidity with body mass index (BMI) of 37.0 to 37.9 in adult Primary hyperparathyroidism (HCC)- Primary Primary hyperparathyroidism Hypercalcemia [facility] Diagnosis Pre-operative examination- Primary Preoperative examination, unspecified Chronic pain of right ankle SVT (supraventricular tachycardia) (HCC) Other specified cardiac dysrhythmias Paroxysmal atrial fibrillation (HCC) Atrial fibrillation Essential hypertension Unspecified essential hypertension REMY (obstructive sleep apnea) Obstructive sleep apnea (adult) (pediatric) 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, site unspecified Class 2 obesity due to excess calories without serious comorbidity with body mass index (BMI) of 37.0 to 37.9 in adult Hyperparathyroidism (HCC)- Primary Hyperparathyroidism, unspecified [facility] Diagnosis Onset Date Resolution Status Admit Date Atrial fibrillation acute August 182024 11:31am Cellulitis of leg without fo ot, right acute August 30, 2024 11:31am Hypercholesterolemia acute August 30, 2024 11:31am Hypertension acute August 30 11:31am Obesity acute August 30, 2024 11:31am REMY (obstructive sleep apnea) acute August 30, 2024 11:31am Primary hyperparathyroidism acute August 30, 2024 11:31am Pneumonia noneactive August 30, 2024 11:31am [facility] Work Phone: Evaluation note* Diagnosis Pre-operative examination- Primary Preoperative examination, unspecified Chronic pain of right ankle SVT (supraventricular tachycardia) (HCC) Other specified cardiac dysrhythmias Paroxysmal atrial fibrillation (HCC) Atrial fibrillation Essential hypertension Unspecified essential hypertension REMY (obstructive sleep apnea) Obstructive sleep apnea (adult) (pediatric) 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, site unspecified Class 2 obesity due to excess calories without serious comorbidity with body mass index (BMI) of 37.0 to 37.9 in adult Hyperparathyroidism (HCC)- Primary Hyperparathyroidism, unspecified Hyperparathyroidism (HCC) Hyperparathyroidism, unspecified [facility] Diagnosis Pre-operative examination- Primary Preoperative examination, unspecified Chronic pain of right ankle SVT (supraventricular tachycardia) (HCC) Other specified cardiac dysrhythmias Paroxysmal atrial fibrillation (HCC) Atrial fibrillation Essential hypertension Unspecified essential hypertension REMY (obstructive sleep apnea) Obstructive sleep apnea (adult) (pediatric) 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, site unspecified Class 2 obesity due to excess calories without serious comorbidity with body mass index (BMI) of 37.0 to 37.9 in adult Primary hyperparathyroidism (HCC)- Primary Primary hyperparathyroidism Hyperparathyroidism (HCC) Hyperparathyroidism, unspecified [facility]* Diagnosis Pre-operative examination- Primary Preoperative examination, unspecified Chronic pain of right ankle SVT (supraventricular tachycardia) (HCC) Other specified cardiac dysrhythmias Paroxysmal atrial fibrillation (HCC) Atrial fibrillation Essential hypertension Unspecified essential hypertension REMY (obstructive sleep apnea) Obstructive sleep apnea (adult) (pediatric) 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, site unspecified Class 2 obesity due to excess calories without serious comorbidity with body mass index (BMI) of 37.0 to 37.9 in adult Hyperparathyroidism (HCC) Hyperparathyroidism, unspecified 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, site unspecified REMY (obstructive sleep apnea) Obstructive sleep apnea (adult) (pediatric) Essential hypertension Unspecified essential hypertension Class 1 obesity due to excess calories without serious comorbidity with body mass index (BMI) of 34.0 to 34.9 in adult Hyperparathyroidism (HCC) Hyperparathyroidism, unspecified documented in this encounter [facility] note* Diagnosis Pre-operative examination- Primary Preoperative examination, unspecified Chronic pain of right ankle SVT (supraventricular tachycardia) (HCC) Other specified cardiac dysrhythmias Paroxysmal atrial fibrillation (HCC) Atrial fibrillation Essential hypertension Unspecified essential hypertension REMY (obstructive sleep apnea) Obstructive sleep apnea (adult) (pediatric) 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, site unspecified Class 2 obesity due to excess calories without serious comorbidity with body mass index (BMI) of 37.0 to 37.9 in adult 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, site unspecified REMY (obstructive sleep apnea) Obstructive sleep apnea (adult) (pediatric) Essential hypertension Unspecified essential hypertension Class 1 obesity due to excess calories without serious comorbidity with body mass index (BMI) of 34.0 to 34.9 in adult Paroxysmal atrial fibrillation (HCC) Atrial fibrillation SVT (supraventricular tachycardia) (HCC) Other specified cardiac dysrhythmias Hyperparathyroidism (HCC) Hyperparathyroidism, unspecified * Assessment & Plan Note - Luana Boss PA-C - 11/02/2024 11:03 AM EDT Associated Problem(s): SVT (supraventricular tachycardia) (HCC) H/o cardioversion 2016 Sinus lanette on ECG today Managed with flecainide Follows with ADRIAN Bennett 10/25/24 * Assessment & Plan Note - Luana Boss PA-C - 11/02/2024 11:03 AM EDT Associated Problem(s): Paroxysmal atrial fibrillation (HCC) H/o cardioversion 2016 Regular rate and rhythm on exam Sinus lanette on ECG today Managed with flecainide and and ASA Follows with ADRIAN Bennett 10/25/24 * Assessment & Plan Note - Luana Boss PA-C - 11/01/2024 11:30 AM EDT Associated Problem(s): Class 1 obesity due to excess calories without serious comorbidity with bodymass index (BMI) of 34.0 to 34.9 in adult Body mass index is 34.02 kg/m . * Assessment & Plan Note - Luana Boss PA-C - 11/01/2024 11:28 AM EDT Associated Problem(s): Essential hypertension Stable, complaint on LOSARTAN 100 MG-HYDROCHLOROTHIAZIDE 25 MG TABLET Take 1 tablet by mouth once daily. AMLODIPINE 10 MG TABLET Take 10 mg by mouth once daily. Follows with PCP. 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 [facility] Pre-operative examination- Primary Preoperative examination, unspecified Chronic pain of right ankle SVT (supraventricular tachycardia) (HCC) Other specified cardiac dysrhythmias Paroxysmal atrial fibrillation (HCC) Atrial fibrillation Essential hypertension Unspecified essential hypertension REMY (obstructive sleep apnea) Obstructive sleep apnea (adult) (pediatric) 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, site unspecified Class 2 obesity due to excess calories without serious comorbidity with body mass index (BMI) of 37.0 to 37.9 in adult 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, site unspecified REMY (obstructive sleep apnea) Obstructive sleep apnea (adult) (pediatric) Essential hypertension Unspecified essential hypertension Class 1 obesity due to excess calories without serious comorbidity with body mass index (BMI) of 34.0 to 34.9 in adult Paroxysmal atrial fibrillation (HCC) Atrial fibrillation SVT (supraventricular tachycardia) (HCC) Other specified cardiac dysrhythmias Hyperparathyroidism (HCC)- Primary Hyperparathyroidism, unspecified documented in this encounter [facility] general Narrative - Reported* Type Description [...] insertion 2018 Hospitalization History see surgical hx MD Insider Other Reason for referral (narrative)* Diagnostic Procedure Only (Routine) - Pending Review Specialty Diagnoses / Procedures Referred By Tigre kilpatrick Referred To Contact XR IMAGING Diagnoses Chondrosarcoma (HCC) Procedures XR TIBIA FIBULA 2V AP/LAT RIGHT RADIOLOGIC EXAMINATION TIBIA & FIBULA 2 VIEWS Haresh Pineda MD [address] [place] [address] Xr Imaging Referral ID Status Reason Start Date Expiration Date Visits Requested Visits Authorized [id number] Pending Review Auto-Generat ed Referral 11/05/2022 12/05/2022 1 1 [facility] for referral (narrative)* Diagnostic Procedure Only (Routine) - Pending Review Specialty Diagnoses / Procedures Referred By Contac finesse Referred To Contact XR IMAGING Diagnoses Chondrosarcoma (HCC) Procedures XR TIBIA FIBULA 2V AP/LAT RIGHT RADIOLOGIC EXAMINATION TIBIA & FIBULA 2 VIEWS Haresh Pineda MD [address] [place] [address] Xr Imaging Referral ID Status Reason Start Date Expiration Date Visits Requested Visits Authorized [id number] Pending Review Auto-Generat ed Referral 11/17/2022 12/17/2023 1 1 [facility] for referral (narrative)* Diagnostic Procedure Only (Routine) - Authorized Specialty Diagnoses / Procedures Referred By Tigre kilpatrick Referred To Contact XR IMAGING Diagnoses Chronic pain of left ankle Procedures XR ANKLE GENERAL 3V AP/LAT/OBL LEFT RADEX ANKLE COMPLETE MINIMUM 3 VIEWS Valeri Quintero PA-C [address] [place] [address] Xr Imaging [place] [address] Referral ID Status Reason Start Date Expiration Date Visits Requested Visits Authorized [id number] Authorized Auto-Generat ed Referral 01/12/2023 02/11/2024 1 1 [facility] for visit Narrative* Diagnostic Procedure Only (Routine) - Closed Specialty Diagnoses / Procedures Referred By Tigre kilpatrick Referred To Contact MOLECULAR & FUNCTIONAL IMAGING Diagnoses Hyperparathyroidism (HCC) Procedures NM PARATHYROID W SPECT/CT PARATHYROID IMAGING W/TOMOGRAPHIC SPECT & CT Geneva Butler MD [address] [place] [address] Phone: tel: fax: [facility] [address] [place] [address] Phone: tel: Referral ID Status Reason Start Date Expiration Date V isits Requested Visits Authorized [id number] Closed Auto-Generate d Referral 09/13/2024 10/13/2025 1 1 [facility] Summary Purpose Family History No Family History Records Found Relationship Condition Age at Onset Recorded Date/T kayley father Malignant neoplasm Unknown Unknown mother Hypertension Unknown Diabetes mellitus Unknown Advance Directives No Advanced Directives Records FoundDocuments on File Type Date Recorded Patient Building Equipment Inspector Expl anation Advance Directive(s) Advance Directive(s) 09/02/2018 11:24 AM Advance Directive(s) 08/26/2018 2:02 PM Advance Directive(s) 08/24/2017 2:28 PM Documents on File Type Date Recorded Patient Building Equipment Inspector Expl anation Advance Directive(s) Advance Directive(s) 09/02/2018 11:24 AM Advance Directive(s) 08/26/2018 2:02 PM Advance Directive(s) 08/24/2017 2:28 PM Documents on File Type Date Recorded Patient Building Equipment Inspector Expl anation Advance Directive(s) 08/24/2017 2:28 PM Advance Directive Response Recorded Date/ Time Advance Directives No August 31 9:44am Advance Directive Response Recorded Date/ Time Advance Directives No August 31 8:44am Documents on File Type Date Recorded Patient Building Equipment Inspector Expl anation Advance Directive(s) 08/24/2017 2:28 PM Chief Complaint and Reason for Visit Chief [...] specific antigen ) March 11, 2024 11:00am Chief Complaint Admit Date Amb Documentation August 25, 2024 11:47a hospital follow up August 30, 2024 11:31 am Reason for Visit Admit Date Atrial fibrillation August 30, 2024 11:31 am Cellulitis of leg without foot, right Ma y 2024 11:31am Hypercholesterolemia August 30, 2024 11:3 1am Hypertension August 30, 2024 11:31 am Obesity August 30, 2024 11:31 am REMY (obstructive sleep apnea) August 30, 2024 11:31am Primary hyperparathyroidism August 30 11:31am Pneumonia August 30, 2024 11:31 am Chief Complaint Admit Date Amb Documentation August 25, 2024 11:47a hospital follow up August 30, 2024 11:31 am 2 week f/u September 15, 2024 11:13 am Reason for Visit Admit Date Atrial fibrillation August 30, 2024 11:31 am Cellulitis of leg without foot, right Ma y 2024 11:31am Hypercholesterolemia August 30, 2024 11:3 1am Hypertension August 30, 2024 11:31 am Obesity August 30, 2024 11:31 am REMY (obstructive sleep apnea) August 30, 2024 11:31am Primary hyperparathyroidism August 30 11:31am Swelling of right lower extremity August 302024 11:31am Pneumonia August 30, 2024 11:31 am Atrial fibrillation September 15, 2024 11:13 am Cellulitis of leg without foot, right Ma y 2024 11:13am Hypertension September 15, 2024 11:13 am Obesity September 15, 2024 11:13 am Primary hyperparathyroidism September 15 11:13am Swelling of right lower extremity September 152024 11:13am Additional Source Comments (unrecognized sect ion and content) No Status Records FoundNo Status Records FoundNo Status Records FoundNo Status Records FoundNo Status Records FoundNo Status Records FoundNo Status Records Found INFORMATION SOURCE (unrecogn ized section and content) DATE CREATED AUTHOR 11/10/2017 [facility] DATE CREATED AUTHOR AUTHOR'S ORGANIZ ATION 06/26/2022 [facility] DATE CREATED AUTHOR AUTHOR'S ORGANIZ ATION 01/21/2023 [facility] DATE CREATED AUTHOR AUTHOR'S ORGANIZ ATION 07/06/2024 [facility] EPIC DATE CREATED AUTHOR AUTHOR'S ORGANIZ ATION 11/16/2024 [facility] DATE CREATED AUTHOR AUTHOR'S ORGANIZ ATION 11/18/2024 [facility] DATE CREATED AUTHOR AUTHOR'S ORGANIZ ATION 11/30/2024 [facility] Source Comments (unrecognize d section and content) [...] Contact Neurology Diagnoses Anesthesia of skin Procedures GA OFFICE/OUTPATIENT [facility] 30 MINUTES Reina Joya MD [address] [place] [address] Phone: tel: fax: Emmett Pineda DO [address] [place] [address] Phone: tel: fax: Referral ID Status Reason Start Date Expiration Date V isits Requested Visits Authorized [id number] Closed Consult and Treat 02/11/2024 08/09/2024 1 1 Reason Comments Peripheral Neuropathy Reason Comments Thyroid Problem Reason Comments Consult FACE SHEET Reason Comments Results [facility] - DXA scan Reason Comments Appointment Left a messge that a ppointment with scheduled for today(08/23) was rescheduled to 09/13 at 12:20 PM due to patient not feeling well. Sent My chart message Reason Comments Consult Thyroid Problem Hyperparathyroidism Reason Comments NM Parathyroid Request Reason Comments Radiology NM Specialty Diagnoses / Procedures Referred By Contwarner t Referred To Contact MOLECULAR & FUNCTIONAL IMAGING Diagnoses Hyperparathyroidism (HCC) Procedures NM PARATHYROID W SPECT/CT PARATHYROID IMAGING W/TOMOGRAPHIC SPECT & CT Geneva Butler MD [address] [place] [address] Phone: tel: fax: [facility] [address] [place] [address] Phone: tel: Referral ID Status Reason Start Date Expiration Date V isits Requested Visits Authorized [id number] Closed Auto-Generate d Referral 09/13/2024 10/13/2025 1 1 Reason Comments Post Op Reason Comments Post-Op Visit Care Teams (unrecognized sec tion and content) Resource Teacher Relationship Specialty Start Date End Date Alvin Lo, [address] [place] [id number] PCP - General Internal Medicine 06/19/17 Resource Teacher Relationship Specialty Start Date End Date Alvin Lo DO [address] [place] [address] PCP - General Internal Medicine 06/19/17 Resource Teacher Relationship Specialty Start Date End Date Alvin Lo DO [address] [place] [address] PCP - General Internal Medicine 06/19/17 Team Status: Active Member Role Status Dates Alvin Lo DO Primary Care Provider Active Team Status: Active Member Role Status Dates Alvin Lo DO Primary Care Provide r, Attending Provider Active Start: December 01, 2023 Team Status: Inactive Member Role Status Dates Alvin Lo DO Primary Care Provide r, Attending Provider Active Start: December 03, 2023 End: December 03, 2023 Resource Teacher Relationship Specialty Start Date End Date Alvin Lo MD [address] [place] [address] PCP - General Internal Medicine 03/30/23 Resource Teacher Relationship Specialty Start Date End Date Alvin Lo MD [address] [place] [address] PCP - General Internal Medicine 03/30/23 Bhavik Justin, PhD [address] [place] [phone] Referring Physician Neuropsychology 02/22/24 Resource Teacher Relationship Specialty Start Date End Date Alvin Lo MD [address] [place] [address] PCP - General Internal Medicine 03/30/23 Bhavik Justin, PhD [address] [phone] Referring Physician Neuropsychology 02/22/24 Resource Teacher Relationship Specialty Start Date End Date Alvin Lo MD [address] [place] [phone] PCP - General Internal Medicine 03/30/23 Bhavik Justin, PhD [address] [place] [phone] Referring Physician Neuropsychology 02/22/24 Amanda Mustafa DO [address] [place], [place] [id number] Referring Physician Neurology 04/05/24 Resource Teacher Relationship Specialty Start Date End Date Alvin Lo MD [address] [place] [phone] PCP - General Internal Medicine 03/30/23 Bhavik Justin, PhD [address] [phone] Referring Physician Neuropsychology 02/22/24 Amanda Mustafa DO [address] [place] [address] Referring Physician Neurology 04/05/24 Resource Teacher Relationship Specialty Start Date End Date Alvin Lo MD [address] [place] [phone] PCP - General Internal Medicine 03/30/23 Bhavik Justin, PhD [address] [place] [phone] Referring Physician Neuropsychology 02/22/24 Amanda Mustafa DO [address] [place] [address] Referring Physician Neurology 04/05/24 Team Status: Active Member Role Status Dates Alvin Lo DO Primary Care Provide r, Attending Provider Active Start: March 02, 2024 Team Status: Active Member Role Status Dates Alvin Lo , DO Primary Care Provide r, Attending Provider Active Start: March 10, 2024 Team Status: Inactive Member Role Status Dates Alvin Lo , DO Primary Care Provide r, Attending Provider Active Start: March 11, 2024 End: March 11, 2024 Team Status: Active Member Role Status Dates Alvin Lo , DO Primary Care Provide r, Attending Provider Active Start: April 07, 2024 Team Status: Inactive Member Role Status Dates Alvin Lo , DO Primary Care Provide r, Attending Provider Active Start: April 27, 2024 End: April 27, 2024 Resource Teacher Relationship Specialty Start Date End Date Alvin Lo DO [address] [place] [address] PCP - General Internal Medicine 06/19/17 Resource Teacher Relationship Specialty Start Date End Date Alvin Lo DO [address] [place] [address] PCP - General Internal Medicine 06/19/17 Resource Teacher Relationship Specialty Start Date End Date Alvin Lo DO [address] [place], [place] [id number] PCP - General Internal Medicine 06/19/17 Resource Teacher Relationship Specialty Start Date End Date Alvin Lo DO [address] [place], [place] [phone] PCP - General Internal Medicine 06/19/17 Team Status: Active Member Role Status Dates Alvin Lo , DO Primary Care Provide r, Attending Provider Active Start: July 07, 2024 Team Status: Active Member Role Status Dates Alvin Lo DO Primary Care Provide r, Attending Provider Active Start: July 18, 2024 Team Status: Active Member Role Status Dates Alvin Lo DO Primary Care Provider Active Start: August 16, 2024 Herber Donald MD Attending Provider Active Sta rt: August 16, 2024 Team Status: Active Member Role Status Dates Alvin Lo DO Primary Care Provider Active Start: August 23, 2024 Ginger Rust MD Attending Provider Active Sta rt: August 23, 2024 Team Status: Active Member Role Status Dates Alvin Lo DO Primary Care Provider Active Start: August 24, 2024 Shaikh Bang MD Attending Provider Active Sta rt: August 24, 2024 Team Status: Active Member Role Status Dates Alvin Lo DO Primary Care Provider Active Start: August 25, 2024 Shaikh Bang MD Attending Provider Active Sta rt: August 25, 2024 Team Status: Active Member Role Status Dates Alvin Lo DO Primary Care Provider Active Start: August 25, 2024 Kathy Nguyen CMA Attending Provider Active Start: August 25, 2024 Team Status: Inactive Member Role Status Dates Alvin Lo DO Primary Care Provide r, Attending Provider Active Start: August 30, 2024 End: August 30, 2024 Resource Teacher Relationship Specialty Start Date End Date Alvin Lo DO [address] [place] [address] PCP - General Internal Medicine 06/19/17 Team Status: Inactive Member Role Status Dates Alvin Lo DO Primary Care Provide r, Attending Provider Active Start: September 15, 2024 End: September 15, 2024 Resource Teacher Relationship Specialty Start Date End Date Alvin Lo DO [address] [place] [address] [facility] - General Internal Medicine 06/19/17 Resource Teacher Relationship Specialty Start Date End Date Alvin Lo DO [address] [place] [address] PCP - General Internal Medicine 06/19/17 Resource Teacher Relationship Specialty Start Date End Date Alvin Lo [address] [facility] [place] [address] PCP - General Internal Medicine 06/19/17 Resource Teacher Relationship Specialty Start Date End Date Alvin Lo DO [address] [facility] [place] [address] PCP - General Internal Medicine 06/19/17 Resource Teacher Relationship Specialty Start Date End Date Alvin LoDO [address] [facility] [place] [address] PCP - General Internal Medicine 06/19/17 Resource Teacher Relationship Specialty Start Date End Date Alvin LoDO [address] [facility] [place] [address] PCP - General Internal Medicine 06/19/17 Resource Teacher Relationship Specialty Start Date End Date Alvin Lo DO [address] [facility] [place] [address] PCP - General Internal Medicine 06/19/17 Goals (unrecognized section and content) Goals may [...] BE BASED ON THE PRIMARY CLINICAL RECORDS. [facility] [facility]. provides no warranty or guarantee of the accuracy or completeness of information in this document.
[2024-12-03 16:51] LABS: SARS-CoV-2 Ag NEGATIVE (NEGATIVE)
--- NOTE | 2024-12-03 17:08 | XR_ITS ---
The [address] [address] Patient Name: BANG SHARMA MRN: [id number] date: 1950 Sex: M Assigned Patient Location: ER Current Patient Location: ER Accession/Order Number: [id number] Exam Date: 12/03/2024 18:44 Report Date: 12/03/2024 18:45 At the request of: HANNA GUPTA MD Procedure: XR chest 1V Single view chest: CLINICAL HISTORY: Fever COMPARISON: Chest 08/31/2024 FINDINGS: Cardiomegaly is present. No lung consolidation pneumothorax pleural effusion or free air. IMPRESSION: CARDIOMEGALY WITHOUT ACUTE PROCESS. Impression dictated by: Blade Dan Jr., D.O. 12/03/2024 6:45 PM Dictation Location: [place] [address] Electronically authenticated by: [id number] Y Date: 12/03/2024 18:45
--- NOTE | 2024-12-03 17:08 | XR_ITS ---
The [place] [id number] Patient Name: BANG SHARMA MRN: [id number] date: 1950 Sex: M Assigned Patient Location: ER Current Patient Location: ER Accession/Order Number: [id number] Exam Date: 12/03/2024 18:42 Report Date: 12/03/2024 18:44 At the request of: HANNA GUPTA MD Procedure: XR foot RT min 3V RIGHT FOOT - 3 views CLINICAL HISTORY: Rule out foreign body, glass in hallux, plantar COMPARISON: None. FINDINGS: No radiopaque foreign body is seen. Soft tissue swelling is noted. Scattered degenerative changes with plantar spurring. No bony erosions. Partially visualized hardware involving the distal tibia. XR/XR foot RT min 3V IMPRESSION: SOFT TISSUE SWELLING. NO ACUTE BONY PROCESS OR RADIOPAQUE FOREIGN BODY. Impression dictated by: Blade Dan Jr., D.ONikki 12/03/2024 6:44 PM Dictation Location: [place] [address] Electronically authenticated by: [id number] Y Date: 12/03/2024 18:44
--- NOTE | 2024-12-03 17:09 | ED.GENADUL1 ---
HPI HPI - General Adult General Chief complaint: Fever Stated complaint: fever Time Seen by Provider: 12/03/24 16:27 Source: patient Mode of arrival: walk-in History of Present Illness HPI narrative: 74-year-old male presented to the emergency department for fever. It began last night and was as high as 103. He has not had a cough or chest pain or shortness of breath or abdominal pain. No dysuria or hematuria. He is concerned he might have some glass in his right great toe and he stepped on glass possibly about 2 months ago. No drainage from that area. No known ill contacts. Related Data Home Medications ?Medication ?Instructions ?Recorded ?Confirmed baclofen 10 mg tablet 10 mg PO .qhs PRN back galicia 08/23/24 08/24/24 cholecalciferol (vitamin D3) 1,250 50,000 unit PO .weekly 08/23/24 08/23/24 mcg (50,000 unit) capsule flecainide 100 mg tablet 100 mg PO Q12H 08/23/24 08/23/24 meloxicam 15 mg tablet 15 mg PO DAILY 08/23/24 08/23/24 amlodipine 10 mg tablet 10 mg PO DAILY 08/24/24 08/24/24 losartan 100 1 tab PO DAILY 08/24/24 08/24/24 mg-hydrochlorothiazide 25 mg tablet Previous Rx's ?Medication ?Instructions ?Recorded doxycycline hyclate 100 mg tablet 100 mg PO BID 7 days #14 tabs 08/25/24 Allergies Allergy/AdvReac Type Severity Reaction Status Date / Time Penicillins AdvReac Severe Rash Verified 08/23/24 15:14 Opioid HPI Opioid Management Most Recent Opioid Data: Last Pain Scale 0 08/25/24, 10:29 Last MAR Pain Assessment Today, 17:13 Last ORT Total Score 0 08/23/24, 18:58 Last ORT Risk Category Low Risk 08/23/24, 18:58 Review of Systems ROS Narrative A ten point review of systems is negative except as noted above. [facility] Medical History (Updated 12/03/24 @ 18:49 by Young Torres MD) Cellulitis of right leg ?L03.115 - Cellulitis of right lower limb (ICD-10) Bacterial pneumonia ?J15.9 - Unspecified bacterial pneumonia (ICD-10) Acute on chronic diastolic (congestive) heart failure ?I50.33 - Acute on chronic diastolic (congestive) heart failure (ICD-10) Pneumonia ?J18.9 - Pneumonia, unspecified organism (ICD-10) CHF exacerbation ?I50.9 - Heart failure, unspecified (ICD-10) Hypoparathyroidism ?E20.9 - Hypoparathyroidism, unspecified (ICD-10) Hypothyroidism ?E03.9 - Hypothyroidism, unspecified (ICD-10) 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 - Malignant neoplasm of bone and articular cartilage, unspecified (ICD-10) Atrial fibrillation ?I48.91 - Unspecified atrial fibrillation (ICD-10) SVT (supraventricular tachycardia) ?I47.10 - Supraventricular tachycardia, unspecified (ICD-10) Vitamin D deficiency ?E55.9 - Vitamin D deficiency, unspecified (ICD-10) Hypertension ?I10 - Essential (primary) hypertension (ICD-10) Surgical History (Updated 08/24/24 @ 08:44 by Radha Mustafa RN) History of tonsillectomy ?Z90.89 - Acquired absence of other organs (ICD-10) History of hernia repair ?Z98.890 - Other specified postprocedural states (ICD-10) ?Z87.19 - Personal history of other diseases of the digestive system (ICD-10) Family History (Updated 08/24/24 @ 08:45 by Radha Mustafa RN) Mother Family history of myocardial infarction Family history of hypertension Family history of diabetes mellitus Father Family history of cancer Social History (Updated 08/24/24 @ 08:45 by Radha Mustafa RN) Within the past year, how often did you have a drink containing alcohol: monthly or less Smoking status: Former smoker Non-prescribed substance use: denies use Highest level of school completed/degree received: some college, no degree Little interest or pleasure in doing things: not at all Feeling down, depressed, or hopeless: not at all Exam Narrative Exam Narrative: Nurses note and vital signs reviewed and patient is not hypoxic. General: The patient appears well and in no apparent distress. Patient is resting comfortably on cart. Skin: Warm, dry, no pallor noted. There is no rash noted. Head: Normocephalic, atraumatic Eye: Normal conjunctiva, no drainage Ears, Nose, Mouth, and Throat: oral mucosa is moist. Nares patent. Cardiovascular: Regular Rate and Rhythm Respiratory: Patient is in no distress, no accessory muscle use, lungs are clear to auscultation, no wheezing, rales or rhonchi Back: non-tender GI: Soft and nontender Musculoskeletal: The right foot and leg are examined. There is no erythema to suggest cellulitis. There is a thick callus on the plantar aspect of his right hallux. No open area or drainage Neurological: A&O, normal speech Psychiatric: Cooperative Constitutional Vital Signs, click to edit/add: Last Vital Signs Temp 99.3 F 12/03/24 18:48 Pulse 74 12/03/24 18:44 Resp 16 12/03/24 18:44 BP 107/54 12/03/24 18:44 Pulse Ox 94 L 12/03/24 18:44 O2 Del Method Room Air 12/03/24 16:22 Course Vital Signs Vital signs: Vital Signs Temperature 101.0 F H 12/03/24 16:22 Pulse Rate 75 12/03/24 16:22 Respiratory Rate 16 12/03/24 16:22 Blood Pressure 125/61 12/03/24 16:22 Pulse Oximetry 96 12/03/24 16:22 Oxygen Delivery Method Room Air 12/03/24 16:22 Temperature 99.3 F 12/03/24 18:48 Pulse Rate 74 12/03/24 18:44 Respiratory Rate 16 12/03/24 18:44 Blood Pressure 107/54 12/03/24 18:44 Pulse Oximetry 94 L 12/03/24 18:44 Oxygen Delivery Method Room Air 12/03/24 16:22 Medical Decision Making [facility] Narrative Medical decision making narrative: WBC is normal at 9.5 and COVID test is negative. Urinalysis is pending and the patient is signed out to Dr. Clark at change of shift. Differential Diagnosis Differential Diagnosis: Viral illness, COVID, pneumonia, UTI Lab Data Lab results reviewed: Yes I reviewed the patient's lab results Labs: Lab Results 12/03/24 12/03/24 Range/Units 16:29 17:15 WBC 9.5 (4.0-11.0) 10^3/uL RBC 3.92 L (4.70-6.10) 10^6/uL Hgb 12.7 L (14.0-18.0) g/dL Hct 37.8 L (42.0-54.0) % MCV 96.4 H (80.0-94.0) fL MCH 32.4 (25.9-34.0) pg MCHC 33.6 (29.9-35.2) g/dL RDW 13.2 (11.0-15.0) % Plt Count 213 (150-450) 10^3/uL MPV 9.2 L (9.5-13.5) fL Seg Neuts % (Manual) 89.0 H (43.0-75.0) Band Neutrophils % 4.0 (0-5) % Lymphocytes % (Manual) 3.0 L (20.5-60.0) % Monocytes % (Manual) 4.0 (1.7-12.0) % Eosinophils % (Manual) 0.0 L (0.9-7.0) % Basophils % (Manual) 0.0 L (0.2-2.0) % Neutrophils # (Manual) 8.45 H (1.4-6.5) 10^3/uL Band Neutrophils # 0.4 H (0.0-0.3) 10^3/uL Lymphocytes # (Manual) 0.28 L (1.20-3.80) 10^3/uL Monocytes # (Manual) 0.38 (0.30-0.80) 10^3/uL Eosinophils # (Manual) 0.00 (0.00-0.70) 10^3/uL Basophils # (Manual) 0.00 (0.00-0.10) 10^3/uL Sodium 137 (136-145) mmol/L Potassium 3.3 L (3.5-5.1) mmol/L Chloride 103 (98-107) mmol/L Carbon Dioxide 24.8 (21.0-32.0) mmol/L Anion Gap 12.5 BUN 14.0 (7.0-18.0) mg/dL Creatinine 0.96 (0.70-1.30) mg/dL Est GFR ( Amer) >60 (>=60 mL/min/1.73m^2) Est GFR (Non-Af Amer) >60 (>=60 mL/min/1.73m^2) BUN/Creatinine Ratio 14.6 Glucose 139 H (74-106) mg/dL Calcium 8.5 (8.5-10.1) mg/dL SARS-CoV-2 Ag (CV2AG) Negative (NEGATIVE) Discharge Plan Discharge Patient Disposition: Still a Patient
[2024-12-03] MEDS: IBUPROFEN 400 MG TABLET 800 MG PO (17:13)
[2024-12-03 17:26] LABS: Hematocrit 37.8 % (42.0-54.0); Hemoglobin 12.7 g/dL (14.0-18.0); Mean Corpuscular HGB Conc 33.6 g/dL (29.9-35.2); Mean Corpuscular Hemoglobin 32.4 pg (25.9-34.0); Mean Corpuscular Volume 96.4 fL (80.0-94.0); Platelet Count 213 10^3/uL (150-450); Red Blood Count 3.92 10^6/uL (4.70-6.10); White Blood Count 9.5 10^3/uL (4.0-11.0)
[2024-12-03 17:35] LABS: Anion Gap 12.5; Blood Urea Nitrogen 14.0 mg/dL (7.0-18.0); Calcium 8.5 mg/dL (8.5-10.1); Carbon Dioxide 24.8 mmol/L (21.0-32.0); Chloride 103 mmol/L (98-107); Estimated GFR (African America >60 (>=60 mL/min/1.73m^2); Estimated GFR (Non-African Ame >60 (>=60 mL/min/1.73m^2); Glucose 139 mg/dL (74-106); Potassium 3.3 mmol/L (3.5-5.1); Sodium 137 mmol/L (136-145)
[2024-12-03 17:45] LABS: Band Neutrophils Absolute 0.4 10^3/uL (0.0-0.3); Basophils Abs Manual 0.00 10^3/uL (0.00-0.10); Basophils Percent Manual 0.0 % (0.2-2.0); Eosinophils Absolute Manual 0.00 10^3/uL (0.00-0.70); Eosinophils Percent Manual 0.0 % (0.9-7.0); Lymphocytes Absolute Manual 0.28 10^3/uL (1.20-3.80); Lymphocytes Percent Manual 3.0 % (20.5-60.0); Monocytes Absolute Manual 0.38 10^3/uL (0.30-0.80); Monocytes Percent Manual 4.0 % (1.7-12.0); Segmented Neut Absolute Manual 8.45 10^3/uL (1.4-6.5); Segmented Neutrophils % Manual 89.0 (43.0-75.0)
[2024-12-03 18:53] LABS: Glucose Urine UA NEGATIVE (NEGATIVE)
[2024-12-03 19:01] LABS: Cast Seen? NONE SEEN #/LPF (NONE SEEN); Crystals Seen? None Seen #/HPF (None Seen)
[2024-12-03 19:02] LABS: Urine Culture Indicated NO
[2024-12-03] MEDS: CLINDAMYCIN PHOSPHATE/D5W 900 MG/50 ML PREMIX 100 MG IV (20:07)
== END 2024-12-03 20:57 | disposition home or self-care (01) ==
PROVIDERS: Emergency Medicine; Emergency Provider Internal Medicine; PCP Internal Medicine
DX: L03.031 Cellulitis of right toe (principal); R50.9 Fever, unspecified; M79.89 Other specified soft tissue disorders; I51.7 Cardiomegaly
CPT/HCPCS: 36415; 71045; 73630; 80048; 81001; 85007; 85027; 86140; 87811; 96365; 99285; J0736

== ENCOUNTER 2024-12-22 12:57 | Outpatient (OUT) | payer MEDICARE, OTHER, SELFPAY ==
--- OUTSIDE RECORDS SUMMARY | 2024-12-22 13:00 | XMS_ITS | Clinical Summary ---
Author Organization [facility] Address [address] [place] [address] Care Team Providers Care Dry Food Products Mixer Name Role Phone Bhavik Justin MD Unavailable [phone] Nanda Mustafa DO Unavailable [phone] Alvin Contreras DO Primary Care Provider [phone] Allergies Active Allergy Reactions Criticality Noted Date [...] 02/12/2025 FIT-DNA 02/12/2025 02/12/2022, 11/08/2018 [place] [address] [employer]URI [id number] Care Teams Dry Food Products Mixer Relationship Specialty Start Date End Date Alvin Contreras DO [address] [place] [address] PCP - General Internal Medicine 09/19/24 Bhavik Justin MD [address] [address] Referring Physician Neuropsychology 02/22/24 Nanda Mustafa DO [address] [place] [address] Referring Physician Neurology 04/05/24
--- OUTSIDE RECORDS SUMMARY | 2024-12-22 13:00 | XMS_ITS | Encounter Summary ---
Author Organization [facility] Address [address] [place], [place] [address] Care Team Providers Care Cost Consultant Name Role Phone Alvin Contreras DO Primary Care Provider [phone] Source Comments In the event this information is protected by the Federal Confidentiality of Alcohol and Drug AbusePatient Records regulations: The Federal rules restrict any use of the information to criminally investigate or prosecute any alcohol or drug abuse patient.[facility] Reason for Referral * Consult, Test, Treat (Routine) - Authorized Specialty Diagnoses / Procedures Referred By Contac t Referred To Contact Diagnoses Hyperparathyroidism (HCC) Procedures OFFICE/OUTPATIENT [facility] 60 MINUTES Geneva Samayoa MD [address] [place] [address] Phone: tel: fax: Referral ID Status Reason Start Date Expiration Date Visits Requested Visits Authorized [id number] Authorized PCP Requested Referral 09/13/2024 09/13/2025 1 1 * Diagnostic Procedure Only (Routine) - Closed Specialty Diagnoses / Procedures Referred By Contac t Referred To Contact [facility] Diagnoses Hyperparathyroidism (HCC) Procedures NM PARATHYROID W SPECT/CT PARATHYROID IMAGING W/TOMOGRAPHIC SPECT & CT Geneva Samayoa MD [address] [place] [address] Phone: tel: fax: Molecular Imaging [address] [place] [id number] Phone: tel: Referral ID Status Reason Start Date Expiration Date V isits Requested Visits Authorized [id number] Closed Auto-Generate d Referral 09/13/2024 10/13/2025 1 1 * Outpatient Procedure (Routine) - Closed Specialty Diagnoses / Procedures Referred By Contac t Referred To Contact [facility] Diagnoses Hyperparathyroidism (HCC) Procedures ECG COMPLETE ECG ROUTINE ECG W/LEAST 12 LDS [place] [address] [place] [address] Phone: tel: fax: [facility] [place] [address] [place] [address] Referral ID Status Reason Start Date Expiration Date V isits Requested Visits Authorized [id number] Closed Auto-Generate d Referral 09/13/2024 09/13/2025 1 1 Reason for Visit * Reason Comments 11/14 MM - Parathyroidectomy Needs: labs, EKG, NM scan of Parathyroid, in-person PACC and 2 wk phone post-op. Encounter Details Date Type Department Care Team (Latest Contact Info) Description 09/13/2024 Patient Update Endocrine Surgery [address] [place] [id number] Geneva Samayoa MD [address] [place] [address] 11/14 MM - Parathyroidectomy (Needs: labs, EKG, [...] is lower risk 4 01/13/2023 Data from: https://www.neighborhoodatlas.[facility]/. Last address used for calculation [address] 01/13/2023 Sex and Gender Information [...] 08/31/2017 4:00 PM MARYANNET Jeevan Strong RN * Do you have difficulty dressing or bathing? Answer Date of Assessment Author No 08/31/2017 4:00 PM MARYANNET Jeevan Strong RN * Because of a [...] Jeevan Landon RN documented in this encounter Plan of Treatment Upcoming Encounters Date Type Department Care Team (Late st Contact Info) Description 02/28/2025 2:20 PM EST Office Visit Endocrinology [address] [place] [address] Gaudencio Lewis MD [address] [place] [address] [place] [address] Return in about 6 months (around 02/15/2025). Scheduled Orders Name Type Priority Associated Diagnoses Orde r Schedule REFER FOR ADMIT INTERVIEW Procedures Routine Hyperparathyroidism (HCC) Ordered: 09/13/2024 Scheduled Referrals Name Type Priority Associated Diagnoses Orde r Schedule REFER TO [facility]IM[facility] Referral Routine Hyperparathyroidism (HCC) 1 Occurrences starting 09/13/2024 until 09/13/2025 documented as of this encounter Procedures Procedure [...] be communicated with the ordering provider via [employer] staff message or phone message by [facility] within 2 business days of report finalization. --END OF FINDING-- Physical Medicine Physician: BARBARA Transcribe Date/Time: Nov 02 2024 7:32A Dictated by : SKIP RIVERA DO This examination was interpreted and the report reviewed and electronically signed by: SKIP RIVERA DO on Nov 02 2024 7:42AM EST Narrative 11/02/2024 7:44 AM EDT * * *Final Report* * * DATE OF EXAM: Nov 01 2024 2:25PM [facility] [id number] - NM PARATHYROID W SPECT/CT / [...] Images: No additional findings. Procedure Note Provider, [facility] [place] - 11/02/2024 * * *Final Report* * [...] be communicated with the ordering provider via [employer] staff message or phone message by [facility] within 2 business days of report finalization. --END OF FINDING-- Physical Medicine Physician: BARBARA Transcribe Date/Time: Nov 02 2024 7:32A Dictated by : SKIP RIVERA DO This examination was interpreted and the report reviewed and electronically signed by: SKIP RIVERA DO on Nov 02 2024 7:42AM EST us Geneva Samayoa MD [place] Final Res ult * ECG COMPLETE (11/01/2024 11:55 AM EDT) Ventricular Rate 56 BPM [facility] Atrial Rate 56 BPM [facility] P-R Interval 174 ms [facility] QRS Duration 192 ms [facility] QT Interval 508 ms [facility] QTC Calculation (Bazett) 490 ms [facility] Calculated P [place] 85 degrees [facility] Calculated R [place] -69 degrees [facility] Calculated T [place] 33 degrees [facility] 11/01/2024 11:5 5 AM EDT Impressions [facility] - 12/08/2024 9:49 AM EDT SINUS BRADYCARDIA LEFT AXIS DEVIATION COMPLETE RIGHT BUNDLE BRANCH BLOCK ABNORMAL ECG Confirmed by ENRIQUE ROSALES MD ([id number]) on 12/08/2024 9:49:14 AM Narrative [facility] - 12/08/2024 9:49 AM EDT NAME : BANG SHARMA PID : [id number] : 1950 Gender : Male Race : ORD : [id number] Procedure Date : Nov 01 2024 11:55:05 Edit Date : Dec 08 2024 09:49:21 Diagnosis: SINUS BRADYCARDIA LEFT AXIS DEVIATION COMPLETE RIGHT BUNDLE BRANCH BLOCK ABNORMAL ECG Confirmed by ENRIQUE ROSALES MD ([id number]) on 12/08/2024 9:49:14 AM Test Reason : Location : 314 : J14 J14 Overread By : ENRIQUE ROSALES MD Edited By : ENRIQUE ROSALES MD Referred By : GENEVA SAMAYOA Acquired by : JENIFFER MCCAULEY us Geneva Samayoa MD EKG Final Res ult [facility] [address] [place] [address] * COMPLETE BLOOD COUNT AND DIFFERENTIAL (11/01/2024 11:24 AM EDT) WBC 5.86 3.70 - 11.00 k/uL 11/01/2024 12:25 PM EDT [facility] RBC 4.58 4.20 - 6.00 m/uL 11/01/2024 12:25 PM EDT [facility] Hemoglobin 14.3 13.0 - 17.0 g/dL 11/01/2024 12:25 PM EDT [facility] Hematocrit 44.3 39.0 - 51.0 % 11/01/2024 12:25 PM EDT [facility] MCV 96.7 80.0 - 100.0 fL 11/01/2024 12:25 PM EDT [facility] MCH 31.2 26.0 - 34.0 pg 11/01/2024 12:25 PM EDT [facility] MCHC 32.3 30.5 - 36.0 g/dL 11/01/2024 12:25 PM EDT [facility] RDW-CV 13.6 11.5 - 15.0 % 11/01/2024 12:25 PM EDT [facility] Platelet Count 307 150 - 400 k/uL 11/01/2024 12:25 PM EDT [facility] MPV 9.1 9.0 - 12.7 fL 11/01/2024 12:25 PM EDT [facility] Neutrophils % 59.7 % 11/01/2024 12:25 PM EDT [facility] Abs Neut 3.50 1.45 - 7.50 k/uL 11/01/2024 12:25 PM EDT [facility] Lymphocytes % 25.3 % 11/01/2024 12:25 PM EDT [facility] Abs Lymph 1.48 1.00 - 4.00 k/uL 11/01/2024 12:25 PM EDT [facility] Monocytes % 11.9 % 11/01/2024 12:25 PM EDT [facility] Abs Coryell 0.70 <0.87 k/uL 11/01/2024 12:25 PM EDT [facility] Eosinophils % 1.9 % 11/01/2024 12:25 PM EDT [facility] Abs Eosin 0.11 <0.46 k/uL 11/01/2024 12:25 PM EDT [facility] Basophils % 0.9 % 11/01/2024 12:25 PM EDT [facility] Abs Baso 0.05 <0.11 k/uL 11/01/2024 12:25 PM EDT [facility] Immature Granulocytes % 0.3 % 11/01/2024 12:25 PM EDT [facility] Abs Immature Gran <0.03 <0.10 k/uL 025 12:25 PM EDT [facility] NRBC 0.0 /100 WBC 11/01/2024 12:25 PM EDT [facility] Absolute nRBC <0.01 <0.01 k/uL 11/01/2024 12:25 PM EDT [facility] Diff Type Auto 11/01/2024 12:25 PM EDT [facility] Blood BLOOD SPECIMEN / Unknown Venipuncture / Unknown 11/01/2024 11:24 AM EDT 11/01/2024 11:24 AM EDT us Geneva Samayoa MD LABORATORY Final Res ult [facility] [address] [place] [address], * (ABNORMAL) BASIC METABOLIC PANEL (11/01/2024 11:24 AM EDT) [facility] Signature Glucose 108(H) 74 - 99 mg/dL 11/01/2024 2:16 PM EDT [facility] Comment: The [place] Diabetes Association (ADA) provides guidance for cutoff [...] Standards of Medical Care in Diabetes 2016, [place] Diabetes Association. Diabetes Care. 2016.39(Suppl 1). BUN 18 9 - 24 mg/dL 11/01/2024 2:16 PM EDT [facility] Creatinine 0.86 0.73 - 1.22 mg/dL 11/01/2024 2:16 PM EDT [facility] Sodium 140 136 - 144 mmol/L 11/01/2024 2:16 PM EDT [facility] Potassium 4.5 3.7 - 5.1 mmol/L 11/01/2024 2:16 PM EDT [facility] Chloride 105 98 - 107 mmol/L 11/01/2024 2:16 PM EDT [facility] CO2 26 22 - 30 mmol/L 11/01/2024 2:16 PM EDT [facility] Anion Gap 9 8 - 15 mmol/L 11/01/2024 2:16 PM EDT [facility] Calcium, Total 11.0(H) 8.5 - 10.2 mg/dL 11/01/2024 2:16 PM EDT [facility] Estimated Glomerular Filtration Rate 90 >=60 mL/min/1. 73m 11/01/2024 2:16 PM EDT [facility] Comment:Estimated Glomerular Filtration Rate (eGFR) is [...] EDT 11/01/2024 11:24 AM EDT us Geneva Samyaoa MD LABORATORY Final Res ult [facility] [address] [address], [place] * (ABNORMAL) CREATININE, 24 HOUR URINE (10/19/2024 1:36 PM EDT) Creatinine 24 hr Ur 2.006(H) 1.000 - 2.000 g/24 hr 10/20/2024 5:25 PM EDT [facility] Period 24 hr 10/20/2024 5:25 PM EDT [facility] Volume 1,750 mL 10/20/2024 5:25 PM EDT [facility] Urine URINE SPECIMEN / Unknown Non Blood / Unknown 10/19/2024 1:36 PM EDT 10/19/2024 1:36 PM EDT Geneva Samayoa MD LABORATORY Final Res ult Performing Organization Address [facility]/ZIP Co de Phone Number [facility] [place] [address], [facility] [address] [place] [address] * (ABNORMAL) CALCIUM, 24 HR URINE (10/19/2024 1:35 PM EDT) Calcium, 24 Hr Urine 357.0(H) 100.0 - 300.0 mg/24 hr 10/20/2024 7:10 PM EDT [facility] Period 24 hr 10/20/2024 7:10 PM EDT [facility] Volume 1,750 mL 10/20/2024 7:10 PM EDT [facility] Urine URINE SPECIMEN / Unknown Non Blood / Unknown 10/19/2024 1:35 PM EDT 10/19/2024 1:35 PM EDT Geneva Samayoa MD LABORATORY Final Res ult [facility] [address] [place] [address], [facility] [address] [place] [address] documented in this encounter Visit Diagnoses Diagnosis Hyperparathyroidism (HCC)- Primary Hyperparathyroidism, unspecified Hyperparathyroidism (HCC) Hyperparathyroidism, unspecified Hyperparathyroidism (HCC) Hyperparathyroidism, unspecified documented in this encounter Care Teams Cost Consultant Relationship Specialty Start Date End Date Alvin Contreras DO [address] [place] [address] PCP - General Internal Medicine 06/19/17 documented as of this encounter
--- OUTSIDE RECORDS SUMMARY | 2024-12-22 13:00 | XMS_ITS | Encounter Summary ---
Author Organization [facility] Address [address] [place] [address] Care Team Providers Care Parts Consultant Name Role Phone Alvin Contreras DO Primary Care Provider [phone] Source Comments In the event this information is protected by the Federal Confidentiality of Alcohol and Drug AbusePatient Records regulations: The Federal rules restrict any use of the information to criminally investigate or prosecute any alcohol or drug abuse patient.[facility] Encounter Details Date Type Department Care Team (Late st Contact Info) Description 08/17/2024 Patient Msg Endocrine Surgery [address] [id number] Provider, [facility] Appointment Social History Tobacco Use Types Packs/Day Years Used Date Smoking Tobacco: Never Smokeless Tobacco: Never PHQ-2 Answer Date Recorded PHQ-2 score 0 06/30/2019 Area Deprivation Index Answer Date Mumtaz rded National Score (1-100), lower number is lower ri sk 60 01/13/2023 State Score (1-10), lower number is lower risk 4 01/13/2023 Data from: https://www.neighborhoodatlas.medicine.[facility].edu/. Last address used for calculation [address] [place] [address] 01/13/2023 Sex and Gender Information Value Date [...] 2:20 PM EST Office Visit Endocrinology [address] [place] [address] Gaudencio Lewis MD [address] [place] [address] [place] [address] Return in about 6 months (around 02/15/2025). documented as of this encounter Visit Diagnoses Not on filedocumented in this encounter Care Teams Parts Consultant Relationship Specialty Start Date End Date Alvin Contreras DO [address] [place] [address] PCP - General Internal Medicine 06/19/17 documented as of this encounter
--- OUTSIDE RECORDS SUMMARY | 2024-12-22 13:00 | XMS_ITS | Encounter Summary ---
Author Organization [facility] Address [address] [place] [address] Care Team Providers Care Special Agent In Charge Name Role Phone Alvin Contreras DO Primary Care Provider [phone] Bhavik Justin MD Unavailable [phone] Nanda Mustafa DO Unavailable [phone] Alvin Contreras DO Primary Care Provider [phone] Encounter Details Date Type Department Care Team (Late st Contact Info) Description 02/24/2024 Orders Only PHYLLIS JUDAH [address] [facility] [address] [place] [id number] Geoff Joshua ARRT Social History Tobacco Use [...] on filedocumented in this encounter Care Teams Special Agent In Charge Relationship Specialty Start Date End Date Alvin Contreras DO PCP - General Internal Medicine 03/30/23 09/18/24 Alvin Contreras DO [address] [facility] [place] [address] PCP - General Internal Medicine 09/19/24 Bhavik Justin MD [address] [address] Referring Physician Neuropsychology 02/22/24 Nanda Mustafa DO [address] [place] [address] Referring Physician Neurology 04/05/24 documented as of this encounter
--- OUTSIDE RECORDS SUMMARY | 2024-12-22 13:00 | XMS_ITS | Encounter Summary ---
Author Organization [facility] Address [address] [place] [address] Care Team Providers Care Car Sealer Name Role Phone Alvin Contreras DO Primary Care Provider [phone] Source Comments In the event this information is protected by the Federal Confidentiality of Alcohol and Drug AbusePatient Records regulations: The Federal rules restrict any use of the information to criminally investigate or prosecute any alcohol or drug abuse patient.[facility] Encounter Details Date Type Department Care Team (Late st Contact Info) Description 11/03/2024 [place] [address] Provider, [facility] Actionable Imaging Result Notification Patient [...] is lower risk 4 01/13/2023 Data from: https://www.neighborhoodatlas.medicine.[facility].edu/. Last address used for calculation [address] [place] [address] 01/13/2023 Sex and Gender Information Value Date [...] 2:20 PM EST Office Visit Endocrinology [address] [place] [address] Guadencio Lewis MD [address] [place] [address] [place] [address] Return in about 6 months (around 02/15/2025). documented as of this encounter Visit Diagnoses Not on filedocumented in this encounter Care Teams Car Sealer Relationship Specialty Start Date End Date Alvin Contreras DO [address] [place] [address] PCP - General Internal Medicine 06/19/17 documented as of this encounter
--- OUTSIDE RECORDS SUMMARY | 2024-12-22 13:00 | XMS_ITS | Encounter Summary ---
Author Organization [facility] Address [address] [place] [address] Care Team Providers Care Digital Photographic Printer Name Role Phone Alvin Contreras Primary Care Provider [phone] Source Comments In the event this information is protected by the Federal Confidentiality of Alcohol and Drug AbusePatient Records regulations: The Federal rules restrict any use of the information to criminally investigate or prosecute any alcohol or drug abuse patient.[facility] Encounter Details Date Type Department Care Team (Late st Contact Info) Description 10/07/2024 Patient Msg Endocrine Surgery [address] [id number] Provider, [facility] Pre-op Appointments Social History Tobacco Use Types Packs/Day Years Used Date Smoking Tobacco: Never Smokeless Tobacco: Never PHQ-2 Answer Date Recorded PHQ-2 score 0 06/30/2019 Area Deprivation Index Answer Date Mumtaz rded National Score (1-100), lower number is lower ri sk 60 01/13/2023 State Score (1-10), lower number is lower risk 4 01/13/2023 Data from: https://www.neighborhoodatlas.medicine.[facility].edu/. Last address used for calculation [address] [place] [address] 01/13/2023 Sex and Gender Information Value Date [...] 2:20 PM EST Office Visit Endocrinology [address] [place] [address] Gaudencio Lewis MD [address] [place] [address] [address] [place], [place] [phone] Return in about 6 months (around 02/15/2025). documented as of this encounter Visit Diagnoses Not on filedocumented in this encounter Care Teams Digital Photographic Printer Relationship Specialty Start Date End Date Alvin Contreras DO [address] [place] [address] PCP - General Internal Medicine 06/19/17 documented as of this encounter
--- OUTSIDE RECORDS SUMMARY | 2024-12-22 13:00 | XMS_ITS | Encounter Summary ---
Author Organization [facility] Address [facility] [place] [address] Care Team Providers Care Client Resource Specialist Name Role Phone Alvin Contreras DO Primary Care Provider [phone] Source Comments In the event this information is protected by the Federal Confidentiality of Alcohol and Drug AbusePatient Records regulations: The Federal rules restrict any use of the information to criminally investigate or prosecute any alcohol or drug abuse patient.[facility] Encounter Details Date Type Department Care Team (Late st Contact Info) Description 11/21/2024 Get Medical Advice Endocrine Surgery [address] [place] [address] Geneva Samayoa MD [address] [phone] CALCIUM TOTAL BLD, Parathyroid hormone (PTH intact), [...] is lower risk 4 01/13/2023 Data from: https://www.neighborhoodatlas.medicine.[facility]/. Last address used for calculation [address] 01/13/2023 Sex and Gender [...] 2:20 PM EST Office Visit Endocrinology [address] [place], [place] [address] Gaudencio Lewis MD [address] [place] [address] [place] [address] Return in about 6 months (around 02/15/2025). documented as of this encounter Visit Diagnoses Not on filedocumented in this encounter Care Teams Client Resource Specialist Relationship Specialty Start Date End Date Alvin Contreras DO [address] [place] [address] PCP - General Internal Medicine 06/19/17 documented as of this encounter
--- OUTSIDE RECORDS SUMMARY | 2024-12-22 13:00 | XMS_ITS | Encounter Summary ---
Author Organization [facility] Address [address] [place] [address] Care Team Providers Care Neurology Physician Name Role Phone Alvin Contreras Primary Care Provider [phone] Source Comments In the event this information is protected by the Federal Confidentiality of Alcohol and Drug AbusePatient Records regulations: The Federal rules restrict any use of the information to criminally investigate or prosecute any alcohol or drug abuse patient.[facility] Encounter Details Date Type Department Care Team (Late st Contact Info) Description 08/23/2024 Patient Msg Endocrinology [address] [phone] Provider, Cckristina Appontment Rescheduled Social History Tobacco Use Types Packs/Day Years Used Date Smoking Tobacco: Never Smokeless Tobacco: Never PHQ-2 Answer Date Recorded PHQ-2 score 0 06/30/2019 Area Deprivation Index Answer Date Mumtaz rded National Score (1-100), lower number is lower ri sk 60 01/13/2023 State Score (1-10), lower number is lower risk 4 01/13/2023 Data from: https://www.neighborhoodatlas.medicine.[facility].edu/. Last address used for calculation [address] [place] [address] 01/13/2023 Sex and Gender Information Value Date [...] 2:20 PM EST Office Visit Endocrinology [address] [place] [address] Gaudencio Lewis MD [address] [place] [address] [address] [place], [place] [phone] Return in about 6 months (around 02/15/2025). documented as of this encounter Visit Diagnoses Not on filedocumented in this encounter Care Teams Neurology Physician Relationship Specialty Start Date End Date Alvin Contreras DO [address] [place] [address] PCP - General Internal Medicine 06/19/17 documented as of this encounter
--- OUTSIDE RECORDS SUMMARY | 2024-12-22 13:00 | XMS_ITS | Encounter Summary ---
Author Organization [facility] Address [address] [place] [address] Care Team Providers Care Nursing Assistants Teacher Name Role Phone Alvin Contreras DO Primary Care Provider [phone] Source Comments In the event this information is protected by the Federal Confidentiality of Alcohol and Drug AbusePatient Records regulations: The Federal rules restrict any use of the information to criminally investigate or prosecute any alcohol or drug abuse patient.[facility] Encounter Details Date Type Department Care Team (Late st Contact Info) Description 10/18/2019 Patient Msg Orthopaedics [address] [place], [place] [phone] Provider, [facility] Repeat injection with Dr. Bah [...] of Assessment Author No 08/31/2017 4:00 PM Jeevan Landon RN documented as of this encounter Mental [...] 2:20 PM EST Office Visit Endocrinology [address] [place], [place] [id number] Gaudencio Lewis MD [address] [place] [address] [address] [place] [place], [place] [phone] Return in about 6 months (around 02/15/2025). documented as of this encounter Visit Diagnoses Not on filedocumented in this encounter Care Teams Nursing Assistants Teacher Relationship Specialty Start Date End Date Alvin Contreras DO [address] [place] [address] PCP - General Internal Medicine 06/19/17 documented as of this encounter
--- OUTSIDE RECORDS SUMMARY | 2024-12-22 13:01 | XMS_ITS | Clinical Summary ---
Author Organization [employer] [facility] tem Address [id number] [address] [place] [address] Care Team Providers Care Cover Marker Name Role Phone Alvin Contreras DO Primary Care Provider [phone] Allergies Active Allergy Reactions Criticality Noted Date [...] file Insurance MEDICARE [employer] [place] [id number] Care Teams Cover Marker Relationship Specialty Start Date End Date Alvin Contreras DO [facility] [place] [address] PCP - General 12/15/17
--- OUTSIDE RECORDS SUMMARY | 2024-12-22 13:01 | XMS_ITS | Clinical Summary ---
Author Organization [facility] Address [address] [place] [id number] Care Team Providers Care Plant Operator Helper Name Role Phone Alvin Contreras DO Primary Care Provider [phone] Allergies Active Allergy Reactions Criticality Noted Date Comments Insects Extract Other: See Comments 10/31/2020 Insect protein - eyes swell and blistering Penicillins Hives Medium 04/07/2014 Medications losartan-hydroch lorothiazide (HYZAAR) 100-25 mg per tabletIndication s:Neoplasm of unspecified behavior of bone, soft tissue, and skin Take 1 tablet by mouth once daily. 7 Active amLODIPine (NORVASC) 10 mg tablet Take 10 mg by mouth once daily. 3 9 Active Magnesium 30 mg tablet Take 500 mg by mouth once daily. Active flecainide (TAMBOCOR) 100 mg tablet Take 100 mg by mouth two times a day. 2 Active meloxicam (MOBIC) 15 mg tablet Take 15 mg by mouth once daily. Active Aspirin 81 mg tab Take 81 mg by mouth. Active acetaminophen (TYLENOL) 500 mg tablet Take 1 tablet by mouth every 4 hours as needed for pain. 5 Active calcium carbonate (TUMS) 500 mg chew Take 1 tablet by mouth every hour as needed (mouth or hand numbness or tingling). 30 tablet 5 Active calcium-carbonat e-vitamin D3 500 mg-5 mcg (200 unit) per tablet Take 1 tablet by mouth three times a day. 90 tablet 5 Active Active Problems Problem Noted Date [...] Plan (11/02/2024 11:03 AM EDT): H/o cardioversion 2016 Regular rate and rhythm on exam Sinus lanette on ECG today Managed with flecainide and and ASA Follows with ADRIAN Bennett 10/25/24 Assessment & Plan (08/31/2018 2:51 PM EDT): Rate well controlled and on Xarelto, pt states stopped 08/28/2018 SVT (supraventricular tachycardia) 08/24/2017 Assessment & Plan (11/02/2024 11:03 AM EDT): H/o cardioversion 2016 Sinus lanette on ECG [...] (08/20/2017): Added automatically from request for surgery [id number] Assessment & Plan (11/01/2024 9:34 AM EDT): H/o, 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 Assessment & Plan (08/31/2018 2:53 PM EDT): H/o, 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 Encounters Date Type Department Care Team Description 11/29/2024 2:20 PM EDT [facility] Endocrine Surgery [address] [place], [place] [id number] Geneva Samayoa MD Hyperparathyroidism (HCC) (Primary Dx) 11/28/2024 Travel 11/23/2024 Telephone Endocrine Surgery [address] [place] [address] Geneva Samayoa MD Outside Lab Results 11/23/2024 Orders Only Endocrine Surgery [address] [place], [place] [phone] Geneva Samayoa MD 11/21/2024 Get Medical Advice Endocrine Surgery [address] [place] [address] Geneva Samayoa MD CALCIUM TOTAL BLD, Parathyroid hormone (PTH intact), Vitamin D, 25-hydroxy 11/18/2024 Telephone Endocrine Surgery [address] [place] [phone] Geneva Samayoa MD Post Op 11/18/2024 Orders Only Endocrine Surgery [address] [place] [phone] Geneva Samayoa MD Hyperparathyroidism (HCC) (Primary Dx) 11/14/2024 7:30 AM EDT - 11/14/2024 9:00 AM EDT Surgery [facility] Surgery [address] [place] [address] Geneva Samayoa MD PARATHYROIDECTOMY 11/14/2024 7:23 AM EDT Anesthesia Event [facility] Surgery [address] [place] [address] Sidney Larsen III, MD 11/14/2024 6:27 AM EDT - 11/15/2024 8:46 [place] [address] Geneva Samayoa MD Hyperparathyroidism (HCC) [E21.3] Discharge Disposition: Home 11/03/2024 Patient Msg INITIAL DEPARTMENT [facility] Provider, [facility] Actionable Imaging Result Notification Patient Outreach 11/01/2024 1:18 PM EDT - 11/01/2024 11:59 PM EDT Hospital Encounter Molecular Imaging [address] [place] [address] Hyperparathyroidism (HCC) [E21.3] Discharge Disposition: Home 11/01/2024 11:15 AM EDT Procedure Cardiology [address] [place] [address] 11/01/2024 10:05 AM EDT - 11/01/2024 1:17 PM EDT Hospital Encounter Molecular Imaging [address] [place], [place] [phone] Discharge Disposition: Home 11/01/2024 9:00 AM EDT PAT Pre Anesthesia [address] [place] [id number], [place] Chondrosarcoma (HCC) (Primary Dx); REMY (obstructive sleep apnea); Essential hypertension; Class 1 obesity due to excess calories without serious comorbidity with body mass index (BMI) of 34.0 to 34.9 in adult; Paroxysmal atrial fibrillation (HCC); SVT (supraventricular tachycardia) (HCC) 11/01/2024 Travel 10/19/2024 Travel 10/07/2024 Patient Msg Endocrine Surgery [address] [place] [address] Provider, [facility] Pre-op Appointments 10/04/2024 Telephone Endocrine Surgery [address] [place] [phone] Geneva Samayoa MD NM Parathyroid Request from Last 3 Months Family History Medical [...] risk 4 01/13/2023 Data from: [email or web address]/. Last address used for calculation [address] 01/13/2023 Sex and Gender [...] PM EST Office Visit Endocrinology [address] [place] [address] Gaudencio Lewis MD [address] [place] [address] [place] [address] Return in about [...] Completed 03/03/2023 Medical Devices Implanted Type Area Dye Weigher Helper Device Identifier Shelf Expiration Date Model / Serial / Lot Graft Enhance Demineralized Cortical Fiber Bone Allograft Dehydrate 2.5ml - [id number] Implanted:Qty: 1 on 08/27/2017 at [facility] Bone MTF 07/28/2018 [id number] / / [id number] Graft Cancellous Chips Bone Void Freeze Dry 30ml (1.7-10mm) - [id number] Implanted:Qty: 1 on 08/27/2017 at [facility] Bone MTF 05/30/2020 [id number] / / [id number] Graft Dbx Bone Void Allograft Freeze Dried Putty 1ml - [id number] Implanted:Qty: 1 on 08/27/2017 at [facility] Cement / Putty MTF 01/27/2019 [id number] / [id number] / Tibial Nail Implanted:Qty: 1 on 08/27/2017 at [facility] Implant OTHER 11/27/2021 [id number] / / [id number] Carbofix Titaniumscrew Implanted:Qty: 1 on 08/27/2017 at [facility] Implant OTHER [id number] / / Carbofix Titanium Screw Implanted:Qty: 1 on 08/27/2017 at [facility] Implant OTHER [id number] / / Carbofix Titanium Screw Implanted:Qty: 1 on 08/27/2017 at [facility] Implant OTHER [id number] [id number] / / Carbofix Titanium Screw Implanted:Qty: 1 on 08/27/2017 at [facility] Implant OTHER [id number] / / Carbofix Titanium Screw Implanted:Qty: 1 on 08/27/2017 at [facility] Implant OTHER [id number] / / Procedures Procedure Name Priority Date/Time Associated Diagnosis Comments EXTERNAL LAB 11/22/2024 12:00 AM EDT EXTERNAL LAB 11/22/2024 12:00 AM EDT PTH INTACT BLD Routine 11/15/2024 4:01 AM [...] EXTERNAL IMAGING 09/21/2024 12:1 3 PM EDT from Last 3 Months Results * EXTERNAL LAB (11/22/2024 12:00 AM EDT) Only the most recent of2 resultswithin the time period is included. us External Provider PA-C LABORATORY Final Res ult * PTH INTACT (11/15/2024 4:01 AM EDT) PTH, Intact 16 15 - 65 pg/mL 11/15/2024 5:41 AM EDT [facility] Blood BLOOD SPECIMEN / Unknown Venipuncture / Unknown 11/15/2024 4:01 AM EDT 11/15/2024 4:39 AM EDT Tiffany Sanchez MD LABORATORY Final Result Performing Organization Address [facility] Co de Phone Number [facility] [address] [place] [address], * CALCIUM, TOTAL (11/15/2024 4:01 AM EDT) Pathologist [facility] Calcium, Total 9.2 8.5 - 10.2 mg/dL 11/15/2024 5:27 AM EDT [facility] Blood BLOOD SPECIMEN / Unknown Venipuncture / Unknown 11/15/2024 4:01 AM EDT 11/15/2024 4:38 AM EDT Tiffany Sanchez MD LABORATORY Final Result Performing Organization Address [facility] de Phone Number [facility] [address] [place] [address], [place] * ECG COMPLETE (11/14/2024 11:35 AM EDT) Ventricular Rate 64 BPM [facility] Atrial Rate 64 BPM [facility] P-R Interval 164 ms [facility] QRS Duration 192 ms [facility] QT Interval 488 ms [facility] QTC Calculation (Bazett) 503 ms [facility] Calculated P [place] 73 degrees [facility] Calculated R [place] -76 degrees [facility] Calculated T [place] 19 degrees [facility] 11/14/2024 11:3 5 AM EDT Impressions [facility] - 11/14/2024 12:20 PM EDT Normal sinus rhythm Right bundle branch block Left anterior fascicular block Bifascicular block Septal infarct , age undetermined Abnormal ECG No previous ECGs available Confirmed by KEON MAGAÑA MD ([id number]) on 11/14/2024 12:20:23 PM Narrative [facility] - 11/14/2024 12:20 PM EDT NAME : BANG SHARMA PID : [id number] : 1950 Gender : Male Race : ORD : [id number] Procedure Date : Nov 14 2024 11:35:23 Edit Date : Nov 14 2024 12:20:28 Diagnosis: Normal sinus rhythm Right bundle branch block Left anterior fascicular block Bifascicular block Septal infarct , age undetermined Abnormal ECG No previous ECGs available Confirmed by KEON MAGAÑA MD ([id number]) on 11/14/2024 12:20:23 PM Test Reason : Post-OP Location : 1 : [place] [address] Overread By : KEON MAGAÑA MD Edited By : KEON MAGAÑA MD Referred By : , Acquired by : DUONG KUMAR us Tiffany Sanchez MD EKG Final Result Performing Organization Address [facility] de Phone Number [facility] [id number] [place] [address] * (ABNORMAL) INTRAOPERATIVE PTH (11/14/2024 8:10 AM EDT) Only the most recent of2 resultswithin the time period is included. Intraoperative PTH 73(H) 15 - 65 pg/mL 11/14/2024 9:11 AM EDT [facility] Blood BLOOD SPECIMEN / Unknown 11/14/2024 8:10 AM EDT 11/14/2024 8:50 AM EDT Comment:Pre-op diagnosis: Hyperparathyroidism (HCC) [E21.3] us Geneva Samayoa MD LABORATORY Final Res ult Performing Organization Address [facility] Co de Phone Number [facility] [address] [place] [address], * SURGICAL PATHOLOGY (11/14/2024 7:55 AM EDT) Case Report Surgical Pathology Report Case: [id number] Authorizing Provider: Geneva Samayoa MD Collected: 11/14/2024 07:55 AM Ordering Location: [facility] Surgery Received: 11/14/2024 08:04 AM Pathologist: Deysi Singh MD Intraop: Ella Johnson MD Specimens: A) - Parathyroid Gland, Right, right upper [id number] B) - Parathyroid Gland, Left, Left upper 12x9x3 C) - Parathyroid Gland, Right, right upper [id number] 11/16/2024 11:04 AM EDT [facility] FINAL DIAGNOSIS A, C. Right upper parathyroid, excision: - Hypercellular parathyroid. B. Left upper parathyroid, excision: - Hypercellular parathyroid. SHANA November 16, 2024 11/16/2024 11:04 AM EDT [facility] at 1104 EDT Gross Description A. Parathyroid Gland, Right FSA1: Received fresh for frozen section is one piece of brown soft tissue weighing 0.590 grams and measuring 2.2 x 0.9 x 0.6 cm. A appliance service representative section is submitted for frozen section in FSA1. Gross examination performed at [facility], [address], [place] [address] CLIA# [id number] B. Parathyroid Gland, Left FSB1: Received fresh for frozen section is one piece of brown soft tissue weighing 0.245 grams and measuring 0.9 x 0.9 x 0.3 cm. The tissue is entirely submitted for frozen section in FSB1. Gross examination performed at [facility], [address], [place] [id number] CLIA# [id number] C. Parathyroid Gland, Right Labeled: Right upper 31 x 18 x 10 Received: In formalin Size: 2.8 x 1.5 x 0.9 cm Weight: 1640 mg Cassette code: Representatively in C1 (serially section) Gross examination performed at [facility], [address] [place] [address] MSL/MADIHA 11/14/24 12:25 PM 11/16/2024 11:04 AM EDT [facility] Intraoperative Diagnosis A. Parathyroid Gland, Right FSA1: Hypercellular parathyroid tissue (Ella Johnson MD) Intraoperative diagnosis performed at [facility], [address], [place] [address] CLIA# [id number] B. Parathyroid Gland, Left FSB1: Hypercellular parathyroid tissue (Ella Johnson MD) Intraoperative diagnosis performed at [facility], [address], [facility] [place] [address] CLIA# [id number] 11/16/2024 11:04 AM EDT [facility] Clinical History Pre-op diagnosis: Hyperparathyroidis m (HCC) [E21.3] 11/16/2024 11:04 AM EDT [facility] Performing Lab Diagnostic interpretation performed at: [facility], [address] [place] [address], [address] [address] CLIA# [id number] Arts Therapist: Herson Cuenca MD 11/16/2024 11:04 AM EDT [facility] Disclaimer Laboratory Developed Test (LDT) Disclaimer: Performance characteristics of immunohistochemica l, immunofluorescent, and chromogenic in-situ hybridization tests have been determined by the performing laboratory within [facility]'s [facility] Pathology and Laboratory Medicine Department ([facility], [facility], [facility], [facility], [facility], [facility], or [facility]) in a manner consistent with CLIA requirements. One or more of these tests may not have been cleared or approved by the FDA. [facility] is regulated under CLIA as qualified to perform high-complexity testing. These tests are used for clinical purposes. These should not be regarded as investigational or for research. Positive and negative controls stain appropriately. 11/16/2024 11:04 AM EDT [facility] Tissue PARATHYROID STRUCTURE / [...] Geneva Samayoa MD SURGICAL PATHOLOGY Final Result [facility] [address] [facility] [address] [place] [address], [facility] [address] [place] [phone], * Airway (11/14/2024 7:32 AM EDT) Narrative Nanda Hawknis APRN.MACHINE GUNNER - 11/14/2024 7:32 AM EDT Nanda Hawkins APRN.MACHINE GUNNER 11/14/2024 7:46 AM Airway General Information Procedure Start Time/Medication Administration: 11/14/2024 7:32 AM Procedure End Time: 11/14/2024 7:32 AM Patient location during procedure: OR Staffing MACHINE GUNNER: Nanda Hawkins APRN.MACHINE GUNNER Performed by: LORE Indications and Patient Condition Indications for airway management: anesthesia Preoxygenated: yes anesthesia circuit Method: sleep Difficult Mask: No Final Airway Details Final airway type: endotracheal airway Final Endotracheal Airway: ETT Cuffed: yes Successful intubation technique: video laryngoscopy Devices used: Corindus Endotracheal tube insertion site: oral Blade size: [...] EDT Tiffany Sanchez MD IMAGES Final Result * [...] be communicated with the ordering provider via Trellise staff message or phone message by Imaging Support Services within 2 business days of report finalization. --END OF FINDING-- Snagger: BARBARA Transcribe Date/Time: Nov 02 2024 7:32A Dictated by : SKIP RIVERA DO This examination was interpreted and the report reviewed and electronically signed by: SKIP RIVERA DO on Nov 02 2024 7:42AM EST Narrative 11/02/2024 7:44 AM EDT * * *Final Report* * * DATE OF EXAM: Nov 01 2024 2:25PM [facility]89 - [place] PARATHYROID W SPECT/CT / [...] Images: No additional findings. Procedure Note Provider, [facility] - 11/02/2024 * * *Final Report* * * DATE OF EXAM: Nov 01 2024 2:25PM [facility] 0089 - [place] PARATHYROID W SPECT/CT / [...] be communicated with the ordering provider via Trellise staff message or phone message by Imaging Support Services within 2 business days of report finalization. --END OF FINDING-- Snagger: BARBARA Transcribe Date/Time: Nov 02 2024 7:32A [...] ms [facility] Calculated P [place] 85 degrees [facility] Calculated R [place] -69 degrees [facility] Calculated T [place] 33 degrees [facility] 11/01/2024 11:5 5 AM EDT Impressions [facility] - 12/08/2024 9:49 AM EDT SINUS BRADYCARDIA LEFT AXIS DEVIATION COMPLETE RIGHT BUNDLE BRANCH BLOCK ABNORMAL ECG Confirmed by BOBBY TILLEY, ENRIQUE ([id number]) on 12/08/2024 9:49:14 AM Narrative [facility] - 12/08/2024 9:49 AM EDT NAME : BANG SHARMA PID : [id number] : 1950 Gender : Male Race : ORD : [id number] Procedure Date : Nov 01 2024 11:55:05 Edit Date : Dec 08 2024 09:49:21 Diagnosis: SINUS BRADYCARDIA LEFT AXIS DEVIATION COMPLETE RIGHT BUNDLE BRANCH BLOCK ABNORMAL ECG Confirmed by ENRIQUE ROSALES MD ([id number]) on 12/08/2024 9:49:14 AM Test Reason : Location : 314 : J14 J14 Overread By : ENRIQUE ROSALES MD Edited By : ENRIQUE ROSALES MD Referred By : GENEVA SAMAYOA Acquired by : JENIFFER MCCAULEY us Geneva Samayoa MD EKG Final Res ult Performing Organization Address [facility] Co de Phone Number [facility] [address] [place] [address] * (ABNORMAL) CALCIUM, IONIZED (11/01/2024 11:24 AM EDT) Normalized Calcium 1.44(H) 1.08 - 1.30 mmol/L 11/01/2024 2:08 PM EDT [facility] Calcium Ionized, Whole Blood 1.45(H) 1.08 - 1.30 mmol/L 11/01/2024 2:08 PM EDT [facility] Blood BLOOD SPECIMEN / Unknown Venipuncture / Unknown 11/01/2024 11:24 AM EDT 11/01/2024 11:24 AM EDT us Geneva Samayoa MD LABORATORY Final Res ult Performing Organization Address [facility]/ZIP Co de Phone Number [facility] [address] [place] [address] * COMPLETE BLOOD COUNT AND DIFFERENTIAL (11/01/2024 11:24 AM EDT) WBC 5.86 3.70 - 11.00 k/uL 11/01/2024 12:25 PM EDT [facility] RBC 4.58 4.20 - 6.00 m/uL 11/01/2024 12:25 PM EDT [facility] Hemoglobin 14.3 13.0 - 17.0 g/dL 11/01/2024 12:25 PM EDT [facility] Hematocrit 44.3 39.0 - 51.0 % 11/01/2024 12:25 PM EDT [facility] MCV 96.7 80.0 - 100.0 fL 11/01/2024 12:25 PM EDT [facility] MCH 31.2 26.0 - 34.0 pg 11/01/2024 12:25 PM EDT [facility] MCHC 32.3 30.5 - 36.0 g/dL 11/01/2024 12:25 PM EDT [facility] RDW-CV 13.6 11.5 - 15.0 % 11/01/2024 12:25 PM EDT [facility] Platelet Count 307 150 - 400 k/uL 11/01/2024 12:25 PM EDT [facility] MPV 9.1 9.0 - 12.7 fL 11/01/2024 12:25 PM EDT [facility] Neutrophils % 59.7 % 11/01/2024 12:25 PM EDT [facility] Abs Neut 3.50 1.45 - 7.50 k/uL 11/01/2024 12:25 PM EDT [facility] Lymphocytes % 25.3 % 11/01/2024 12:25 PM EDT [facility] Abs Lymph 1.48 1.00 - 4.00 k/uL 11/01/2024 12:25 PM EDT [facility] Monocytes % 11.9 % 11/01/2024 12:25 PM EDT [facility] Abs Dixie 0.70 <0.87 k/uL 11/01/2024 12:25 PM EDT [facility] Eosinophils % 1.9 % 11/01/2024 12:25 PM EDT [facility] Abs Eosin 0.11 <0.46 k/uL 11/01/2024 12:25 PM EDT [facility] Basophils % 0.9 % 11/01/2024 12:25 PM EDT [facility] Abs Baso 0.05 <0.11 k/uL 11/01/2024 12:25 PM EDT [facility] Immature Granulocytes % 0.3 % 11/01/2024 12:25 PM EDT [facility] Abs Immature Gran <0.03 <0.10 k/uL 11/01/ 025 12:25 PM EDT [facility] NRBC 0.0 /100 WBC 11/01/2024 12:25 PM EDT [facility] Absolute nRBC <0.01 <0.01 k/uL 11/01/2024 12:25 PM EDT [facility] Diff Type Auto 11/01/2024 12:25 PM EDT [facility] Blood BLOOD SPECIMEN / Unknown Venipuncture / Unknown 11/01/2024 11:24 AM EDT 11/01/2024 11:24 AM EDT us Geneva Samayoa MD LABORATORY Final Res ult [facility] [address] [place] [address], * (ABNORMAL) BASIC METABOLIC PANEL (11/01/2024 11:24 AM EDT) Glucose 108(H) 74 - 99 mg/dL 11/01/2024 2:16 PM EDT [facility] Comment: The [place] Diabetes Association (ADA) provides guidance for cutoff [...] Standards of Medical Care in Diabetes 2016, [place] Diabetes Association. Diabetes Care. 2016.39(Suppl 1). BUN 18 9 - 24 mg/dL 11/01/2024 2:16 PM EDT [facility] Creatinine 0.86 0.73 - 1.22 mg/dL 11/01/2024 2:16 PM EDT [facility] Sodium 140 136 - 144 mmol/L 11/01/2024 2:16 PM EDT [facility] Potassium 4.5 3.7 - 5.1 mmol/L 11/01/2024 2:16 PM EDT [facility] Chloride 105 98 - 107 mmol/L 11/01/2024 2:16 PM EDT [facility] CO2 26 22 - 30 mmol/L 11/01/2024 2:16 PM EDT [facility] Anion Gap 9 8 - 15 mmol/L 11/01/2024 2:16 PM EDT [facility] Calcium, Total 11.0(H) 8.5 - 10.2 mg/dL 11/01/2024 2:16 PM EDT [facility] Estimated Glomerular Filtration Rate 90 >=60 mL/min/1. 73m 11/01/2024 2:16 PM EDT [facility] Comment:Estimated Glomerular Filtration Rate (eGFR) [...] Geneva Samayoa MD LABORATORY Final Res ult [facility] [address] [place] [address], [place] * (ABNORMAL) CREATININE, 24 HOUR URINE (10/19/2024 1:36 PM EDT) Creatinine 24 hr Ur 2.006(H) 1.000 - 2.000 g/24 hr 10/20/2024 5:25 PM EDT [facility] Period 24 hr 10/20/2024 5:25 PM EDT [facility] Volume 1,750 mL 10/20/2024 5:25 PM EDT [facility] Urine URINE SPECIMEN / Unknown Non Blood / Unknown 10/19/2024 1:36 PM EDT 10/19/2024 1:36 PM EDT Geneva Samayoa MD LABORATORY Final Res ult Performing Organization Address [facility]/ZIP Co de Phone Number [facility] [address] [place] [address], [facility] [address] [place] [address] * (ABNORMAL) CALCIUM, 24 HR URINE (10/19/2024 1:35 PM EDT) Calcium, 24 Hr Urine 357.0(H) 100.0 - 300.0 mg/24 hr 10/20/2024 7:10 PM EDT [facility] Period 24 hr 10/20/2024 7:10 PM EDT [facility] Volume 1,750 mL 10/20/2024 7:10 PM EDT [facility] Urine URINE SPECIMEN / Unknown Non Blood / Unknown 10/19/2024 1:35 PM EDT 10/19/2024 1:35 PM EDT Geneva Samayoa MD LABORATORY Final Res ult [facility] [address] [place] [address], [facility] [address] [place] [address] * EXTERNAL IMAGING (09/21/2024 12:13 PM EDT) Anatomical Region Laterality Modality Other us External Provider PAAnders RADIOLOGY Final Res ult from Last 3 Months [place] [phone] MEDICARE [employer]ILRO[employer] Advance Directives Documents on File Type Date Recorded Patient Herbicide Sprayer Expl anation Advance Directive(s) 08/24/2017 2:28 PM Care Teams Plant Operator Helper Relationship Specialty Start Date End Date Alvin Contreras DO [address] [place] [address] PCP - General Internal Medicine 06/19/17
--- OUTSIDE RECORDS SUMMARY | 2024-12-22 13:01 | XMS_ITS | Encounter Summary ---
Author Organization [facility] Address [address] [place] [address] Care Team Providers Care Irrigation Worker Name Role Phone Alvin Contreras DO Primary Care Provider [phone] Source Comments In the event this information is protected by the Federal Confidentiality of Alcohol and Drug AbusePatient Records regulations: The Federal rules restrict any use of the information to criminally investigate or prosecute any alcohol or drug abuse patient.[facility] Encounter Details Date Type Department Care Team (Late st Contact Info) Description 08/21/2017 Patient Msg Medical Records [address] [place] [id number] Provider, [facility] Medical Education Program Social History Tobacco Use [...] 2:20 PM EST Office Visit Endocrinology [address] [place] [address] Gaudencio Lewis MD [address] [place] [address] [address] [place], [place] [id number] Return in about 6 months (around 02/15/2025). documented as of this encounter Visit Diagnoses Not on filedocumented in this encounter Care Teams Irrigation Worker Relationship Specialty Start Date End Date Alvin Contreras DO [address] [place] [address] PCP - General Internal Medicine 06/19/17 documented as of this encounter
--- OUTSIDE RECORDS SUMMARY | 2024-12-22 13:01 | XMS_ITS | Clinical Summary ---
Author Organization [facility] Address [address] [place] [address], [address] [place] [address] Care Team Providers Care Cable Way Operator Name Role Phone Unavailable Primary Care Provider [...]
--- OUTSIDE RECORDS SUMMARY | 2024-12-22 13:01 | XMS_ITS | Encounter Summary ---
Author Organization [facility] Address [address] [place] [address] Care Team Providers Care Crusher Wet Ground Mica Name Role Phone Alvin Contreras Primary Care Provider [phone] Source Comments In the event this information is protected by the Federal Confidentiality of Alcohol and Drug AbusePatient Records regulations: The Federal rules restrict any use of the information to criminally investigate or prosecute any alcohol or drug abuse patient.[facility] Encounter Details Date Type Department Care Team (Late st Contact Info) Description 07/12/2019 Patient Msg Neurology [address] [phone] Provider, [facility] Neurology - Blood Work Orders [...] No 08/31/2017 4:00 PM Jeevan Landon RN * Because of a physical, mental, [...] 2:20 PM EST Office Visit Endocrinology [address] [place] [address] Gaudencio Lewis MD [address] [place] [address] [place] [address] Return in about 6 months (around 02/15/2025). documented as of this encounter Visit Diagnoses Not on filedocumented in this encounter Care Teams Crusher Wet Ground Mica Relationship Specialty Start Date End Date Alvin Contreras DO [address] [place] [address] PCP - General Internal Medicine 06/19/17 documented as of this encounter
--- OUTSIDE RECORDS SUMMARY | 2024-12-22 13:01 | XMS_ITS | Encounter Summary ---
Author Organization [facility] Address [address] [place] [address] Care Team Providers Care Supervisor Leaf Spring Repair Name Role Phone Alvin Contreras DO Primary Care Provider [phone] Source Comments In the event this information is protected by the Federal Confidentiality of Alcohol and Drug AbusePatient Records regulations: The Federal rules restrict any use of the information to criminally investigate or prosecute any alcohol or drug abuse patient.[facility] Encounter Details Date Type Department Care Team (Late st Contact Info) Description 12/04/2022 Patient Msg Orth and Rheum [place] [address] [place] [id number] Provider, [facility] Appointment Rescheduled Social History Tobacco Use Types Packs/Day Years Used Date Smoking Tobacco: Never Smokeless Tobacco: Never PHQ-2 Answer Date Recorded PHQ-2 score 0 06/30/2019 Area Deprivation Index Answer Date Mumtaz rded National Score (1-100), lower number is lower ri sk 60 05/18/2022 State Score (1-10), lower number is lower risk N ot on file 05/18/2022 Data from: https://www.neighborhoodatlas.medicine.[facility].edu/. Last address used for calculation [address] [place] [address] 05/18/2022 Sex and Gender Information Value Date [...] 2:20 PM EST Office Visit Endocrinology [address] [place] [address] Gaudencio Lewis MD [address] [place] [address] [place] [address] Return in about 6 months (around 02/15/2025). documented as of this encounter Visit Diagnoses Not on filedocumented in this encounter Care Teams Supervisor Leaf Spring Repair Relationship Specialty Start Date End Date Alvin Contreras DO [address] [place], [place] PCP - General Internal Medicine 06/19/17 documented as of this encounter
--- OUTSIDE RECORDS SUMMARY | 2024-12-22 13:14 | XMS_ITS | CCD ---
Author Organization [facility] Team Providers Care Hub Borer Name Role Phone PHYSICIAN, DEFAULT Unavailable Unavailable PHYSICIAN, DEFAULT Unavailable ALVIN White Unavailable Alvin White DO Primary Care Provider DR ALVIN LO Primary Care Unavailable HANNA TORRES Admitting Unavailable HANNA TORRES Attending Unavailable CANDY, DR TIFFANY Elizondo Consulting Unavailable HANNA TORRES Consulting Unavailable DREA LINO Admitting Unavailable DREA LINO Attending Unavailable TERESITA, DR QUINTEROS Primary Care Unavailable DREA LINO Consulting Unavailable TERESITA, DR QUINTEROS Admitting Unavailable TERESITA, DR QUINTEROS Attending Unavailable TERESITA, DR QUINTEROS Primary Care Unavailable TERESITA, DR QUINTEROS Consulting Unavailable Alvin Lo DO Primary Care Provider HARESH PINEDA Referring [...] Vazquez Referring Unavailable SUSANALPESH Vazquez Referring Unavailable SUSANALPESH Vazquez Attending Unavailable DREA LNIO Attending Unavailable ALPESH DAVIS Attending Unavailable RAFAEL BYRNE Attending Unavailable ALPESH DAVIS Referring Unavailable SUSANALPESH Vazquez Referring Unavailable SUSANALPESH Vazquez Admitting Unavailable ALPESH DAVIS Attending Unavailable ALPESH DAVIS Referring Unavailable BALL, ALVIN E Primary Care Unavailable BUTLER, GENEVA MORALES Attending Unavailable BUTLER, GENEVA MORALES Admitting Unavailable DONALD, HERBER MALENA Attending Unavailable BALL, ALVIN E Primary Care Unavailable BUTLER, GENEVA MANDUJANOE Attending Unavailable BALL, ALVIN E Primary Care Unavailable BUTLER, GENEVAJuanjose FRANKS ANDREW Referring Unavailable BALL, ALVIN E Primary Care Unavailable BALL, ALVIN E Primary Care Unavailable BUTLER, GENEVA FRANKS ANDREW Referring Unavailable BUTLER, GENEVA FRANKS ANDREW Referring Unavailable BALL, ALVIN E Primary Care Unavailable BUTLER, GENEVA FRANKS ANDREW Referring Unavailable BALL, ALVIN E Primary Care Unavailable BALL, ALVIN E Primary Care Unavailable BALL, ALVIN E Primary Care Unavailable BUTLER, GENEVA MORALES Attending Unavailable DONALD, HERBER MALENA Referring Unavailable BALL, ALVIN E Primary Care Unavailable DONALD, HERBER MALENA Referring Unavailable BALL, ALVIN E Primary Care Unavailable Ball DO, Alvin Primary Care Provider [phone] Alvin Lo DO Attending Provider Geneva Butler MD Attending Provider [phone] Provider, Outside Attending Provider Unavailable Foreign Torres DO Attending Provider Kathy Nguyen CMA Attending Provider Unavaila ble Allergies Allergy Classification Reported Allergen(s) Allergy Type Date of Onset Reaction(s) Facility (2 sources) meperidine Drug Allergy 4 [facility] Repository (11 sources) Penicillins; Translations: [PENICILLINS] Drug allergy (disorder) 2 AOF, Unknown Reaction [facility] (4 sources) Penicillins Drug Allergy 4 [facility] (19 sources) Insects Extract; Translations: [INSECTS EXTRACT] Drug Allergy 1 Other: See Comments [facility] (7 sources) atorvastatin Drug Allergy 4 Unknown, Unknown Reaction [facility] (2 sources) Penicillin Drug Allergy Unknown [facility] Other (2 sources) Substance with penicillin structure and antibacterial mechanism of action (substance) Drug allergy Unknown [facility] Other (8 sources) Meperidine; Translations: [MEPERIDINE] Drug Allergy 8 [facility] (7 sources) Penicillins Drug Allergy 4 Hives, Rash, Other [facility] (12 sources) Penicillins Drug Allergy 4 Hives [facility] (1 source) carvedilol; Translations: [CARVEDILOL] Drug Allergy 3 [facility] (1 source) Metoprolol; Translations: [METOPROLOL] Drug Allergy 3 [facility] Medications Current Medications Medication [...] mg tablet Active 10 MG PO Daily September 01, 2023 12:00am Complies with drug therapy Start: 08-02-2018 take 4 tablets by mo [facility] twice daily amLODIPine (NORVASC) 2.5 [...] once daily. baclofen 10 mg oral tablet (10 sources) gamma-Aminobutyric Acid-ergic Agonist Start: 06-12-2024 take 1 tablet by mouth once daily at bedtime Baclofen 10 mg tablet Active 0 .ROUTE .COMPLEX June 12, 2024 9:55am TAKE 1 TABLET BY MOUTH AT BEDTIME EVERY NIGHT Complies with drug therapy Start: 09-01-2023 End: 06-12-2024 take 1 tablet by mouth once daily Baclofen 10 mg tablet Discontinued 10 MG PO Daily September 01, 2023 [...] 1 tablet by mouth three times daily baegpvc-srofaunkj-zm tamin D3 500 mg-5 mcg (200 unit) per tablet Take 1 tablet by mouth three times a day. 90 tablet 11/15/2024 Active cholecalciferol 1.25 mg oral capsule (4 sources) Vitamin D Start: 04-11-2024 take 1 capsule by mouth every week Cholecalciferol (Vitamin D3) 1,250 mcg (50,000 unit) capsule Active 1250 MCG PO every week 5 April 11, 2024 1:00am Complies with drug therapy clindamycin 300 mg oral capsule (1 source) Lincosamide Antibacterial Start: 12-13-2024 take 1 capsule by mouth every six hours Clindamycin Hcl 300 mg capsule Active 300 MG PO Every 6 hours 40 December 13, 2024 12:00am Complies with drug therapy doxycycline hyclate 100 mg oral capsule (10 sources) Tetracycline-class Drug Start: 08-30-2024 End: 09-29-2024 take 1 capsule by mouth twice daily Doxycycline Hyclate 100 mg capsule Active 100 MG PO Twice daily 14 September 29, 2024 1:05pm Complies with drug therapy Start: 04-27-2024 End: 07-06-2024 take 1 capsule by mouth twice daily Doxycycline Hyclate 100 mg capsule Discontinued 100 MG PO Twice daily 14 April 27, 2024 1:00am July 06, 2024 3:01pm flecainide acetate 100 mg oral tablet (20 sources) Antiarrhythmic Start: 12-03-2023 take 50 mg by mouth every twelve hours Flecainide Active 50 MG PO Every 12 hours December 03, 2023 11:02am Start: 10-08-2023 Flecainide 100 mg tablet Active 50 MG PO Every 12 hours December 03, 2023 11:02am Complies with drug therapy Start: 10-08-2021 End: 12-03-2023 take 1 tablet by mouth every twelve hours Flecainide 100 mg tablet Discontinued 100 MG PO Every 12 hours September 01, 2023 12:00am December 03, 2023 11:03am Start: 10-08-2021 take 1 tablet by sudhakar th twice daily flecainide (TAMBOCOR) 100 mg tablet Take 100 mg by mouth two times a day. 10/08/2021 Active losartan potassium 100 mg oral tablet (8 sources) Angiotensin 2 Receptor Gloria Start: 04-08-2024 End: 04-11-2024 take 1 tablet by mouth once daily Losartan 100 mg tablet Active 100 MG PO Daily 90 April 11, 2024 4:47pm Complies with drug therapy Losartan Potassium-HCTZ 100-25MG (2 sources) Start: 04-04-2022 Losartan Potassium-HCTZ 100-25MG Losartan Potassium-HCTZ( 100-25MG Oral ) Active -Hx Entry Oral *Pick strength-form from [employer] for eRX* Mar, Active magnesium citrate 58.2 mg/ml oral solution (7 sources) magnesium citrat e solution Take by mouth Active magnesium gluconate 550 mg oral tablet (16 sources) Magnesium 30 mg tablet Take 500 mg by mouth once daily. Active Comment on above: Take 500 mg by mouth once daily. meloxicam 15 mg oral tablet (19 sources) Nonsteroidal Anti-inflammatory Drug Start: 03-11-2024 take 1 tablet by mouth once daily Meloxicam 15 mg tablet Active 15 MG PO Daily March 11, 2024 1:00am Complies with drug therapy Multivitamin With Iron (1 source) Start: 09-01-2023 take 1 tablet by mouth once daily Multivitamin With Iron Active 1 TAB PO Daily September 01, 2023 12:00am Multivitamin With Iron tablet (4 sources) Start: 09-01-2023 take 1 tablet by mouth once daily Multivitamin With Iron tablet Active 1 TAB PO Daily September 01, 2023 12:00am Complies with drug therapy Start: 09-01-2023 take 1 tablet by sudhakar [...] day and taking 100mg's every other day. hydroCHLOROthiazide 25 mg / losartan potassium 100 mg oral tablet (20 sources) Thiazide Diuretic, Angiotensin 2 Receptor Gloria Start: 03-20-2017 End: 04-08-2024 take 1 tablet by mouth once daily Losartan-Hydroch lorothiazide 100-25 mg tablet Discontinued 1 TAB PO Daily September 01, 2023 12:00am April 08, 2024 7:46pm Comment on above: Take 1 tablet by sudhakar th once daily. 24 hr metoprolol succinate 25 [...] Date Documented Da te Episodic/Chronic Abdominal pain (5 sources) Abdominal pain; Translations: [Unspecified abdominal pain] [...] 55%, DOMINGO, normal RV size/function, RVSP 54 - 08/2024 CHADs VASc - 2,Echo: LVEF 55%, normal RV size/function, DOMINGO, RVSP 11/2023,Echo: LVEF 55%, DOMINGO, normal RV size/function, RVSP 54 - 08/2024 LHC: normal - 2012St ress test - no ischemia - HADs VASc - 2,Echo: LVEF 55%, normal RV size/function, DOMINGO, RVSP 11/2023,Echo: LVEF 55%, DOMINGO, normal RV size/function, RVSP 54 - 08/2024 Deficiency and other anemia (2 sources) Anemia, unspecified; Translations: [Anemia, unspecified] Episodic Deficiency and other anemia (1 source) Anemia; Translations: [Anemia, unspecified] 08-30-2023 Episodic Disorders of lipid metabolism (17 sources) Familial hypercholesterolemia ; Translations: [Pure hypercholesterolemia [...] Asthenia; Translations: [Weakness] 02-22-2024 Episodic Nutritional deficiencies (4 sources) Vitamin D deficiency; Translations: [Vitamin D deficiency, unspecified] 04-08-2024 Chronic Osteoarthritis (2 sources) Localized, primary osteoarthritis of the shoulder region; Translations: [Primary osteoarthritis, left shoulder] Chronic Other and ill-defined heart disease (2 sources) Cardiomegaly; Translations: [Cardiomegaly] Onset: 07-08-2024 Chronic Other circulatory disease (2 sources) Pulmonary venous congestion; Translations: [Other specified symptoms and signs involving the circulatory and respiratory systems] 08-30-2024 Episodic Other connective tissue disease (3 sources) Swelling of right lower limb; Translations: [Other specified soft tissue disorders] 08-30-2024 Episodic Other connective tissue disease (2 sources) Other specified soft tissue disorders; Translations: [Swelling of limb] 08-30-2024 Episodic Other diseases of kidney and ureters (4 sources) Hydronephrosis; Translations: [Unspecified hydronephrosis] 03-23-2024 Episodic Other endocrine disorders (2 sources) Adrenal mass; Translations: [Other specified disorders of adrenal gland] Chronic Other endocrine disorders (8 sources) Primary hyperparathyroidism; Translations: [Primary hyperparathyroidism] 08-16-2024 Chronic Other endocrine disorders (6 sources) Hyperparathyroidism; Translations: [Hyperparathyroidism , unspecified] 08-17-2024 Chronic Other endocrine disorders (4 sources) Primary hyperparathyroidism; Translations: [Primary hyperparathyroidism] Onset: 08-16-2024 08-30-2024 Chronic Other endocrine disorders (2 sources) Hyperparathyroidism, unspecified; Translations: [Hyperparathyroidism (HCC)] Onset: 11-14-2024 Chronic Other eye disorders (1 source) Chalazion [...] Episodic Other nutritional; endocrine; and metabolic disorders (7 sources) Obesity; Translations: [Other obesity due to excess calories] Onset: 08-24-2017 08-31-2018 Chronic Other nutritional; endocrine; and metabolic disorders (15 sources) Obesity caused by energy imbalance; Translations: [Other obesity due to excess calories] Onset: 08-24-2017 08-31-2018 Chronic Other nutritional; endocrine; and metabolic disorders (5 sources) Obesity, unspecified; Translations: [Obesity, unspecified] 12-03-2023 Chronic Other nutritional; endocrine; and metabolic disorders (6 sources) Hypercalcemia; Translations: [Hypercalcemia] 03-11-2024 Chronic Other [...] conditions (not mental disorders or infectious disease) (6 sources) Encounter for screening for malignant neoplasm of prostate; Translations: [Patient encounter status] Onset: 02-12-2022 03-10-2024 Episodic Comment on above: PSA: 1.98 - 01/2021, 2.26 - 01/2022, 1.42 02/2023, 1.02/2024 Other skin disorders (1 source) Skin tag; [...] 12-03-2023 Chronic Skin and subcutaneous tissue infections (7 sources) Cellulitis of leg, excluding foot; Translations: [...] 06-12-2022 Episodic Other aftercare (1 source) Other certified medical biller (current) drug therapy; Translations: [OTH ANTIQUE CLOCKS REPAIRER CURRENT DRUG THERAPY] Onset: 02-12-2022 Episodic Other [...] Test Name Value Interpretation Reference Range Facility Basophils/100 WBC Manual cnt (Bld)Ordered By: Foreign Torres on 12-03-2024 Basophils/100 WBC (Bld) 0.0 % Low 0.2-2.0 F [facility] Eosinophils/100 WBC Manual c nt (Bld)Ordered By: Foreign Torres on 12-03-2024 Eosinophils/100 WBC (Bld) 0.0 % Low 0.9-7.0 [facility] Erythrocyte distribution wid th Auto (RBC) [Ratio]Ordered By: Foreign Torres on 12-03-2024 Erythrocyte distribution width (RBC) [Ratio] 13.2 % 11.0-15.0 [facility] Glomerular filtration rate ( GFR) estimation in non- AmericanOrdered By: Foreign Torres on 12-03-2024 GFR/1.73 sq M.predicted among non-blacks MDRD (S/P/Bld) [Vol rate/Area] mL/min/{1.73_m2} >=60 mL/min/1.73 m 2 [facility] Hematocrit Auto (Bld) [Volum e fraction]Ordered By: Foreign Torres on 12-03-2024 Hematocrit (Bld) [Volume fraction] 37.8 % Low 42.0-54.0 [facility] Hemoglobin [Mass/volume] in BloodOrdered By: Foreign Torres on 12-03-2024 Hemoglobin (Bld) [Mass/Vol] 12.7 g/dL Low 14.0-18.0 [facility] Laboratory - Chemistry and C hemistry - challengeOrdered By: Foreign Torres on 12-03-2024 Bilirubin Ql (U) Negative NEGATIVE [facility] Glucose (U) [Mass/Vol] Negative NEGATIVE [facility] Ketones Ql (U) Negative NEGATIVE [facility] pH (U) 5.5 [pH] 5.0-9.0 [facility] Specific gravity (U) [Rel density] 1.025 1.005-1.025 [facility] Urobilinogen Qn (U) 0.2 {Andre'U}/dL 0.2-1.0 [facility] Calcium [Mass/Vol] 8.5 mg/dL 8.5-10.1 [facility] Chloride [Moles/Vol] 103 mmol/L 98-107 [facility] CO2 [Moles/Vol] 24.8 mmol/L 21.0-32.0 [facility] Creatinine [Mass/Vol] 0.96 mg/dL 0.70-1.30 [facility] GFR/1.73 sq M.predicted MDRD (S/P/Bld) [Vol rate/Area] mL/min/{1.73_m2} >=60 mL/min/1.73 m 2 [facility] Glucose [Mass/Vol] 139 mg/dL High 74-106 [facility] Potassium [Moles/Vol] 3.3 mmol/L Low 3.5-5.1 [facility] Sodium [Moles/Vol] 137 mmol/L 136-145 [facility] Urea nitrogen [Mass/Vol] 14.0 mg/dL 7.0-18.0 [facility] Urea nitrogen/Creatinine [Mass ratio] 14.6 mg/mg [facility] Laboratory - Hematology and Cell countsOrdered By: Foreign Torres on 12-03-2024 Band form neutrophils/100 WBC (Bld) 4.0 % 0-5 [facility] Lymphocytes/100 WBC (Bld) 3.0 % Low 20.5-60.0 [facility] Monocytes/100 WBC (Bld) 4.0 % 1.7-12.0 F [facility] Laboratory - Microbiology an d Antimicrobial susceptibilityOrdered By: Foreign Torres on 12-03-2024 SARS-CoV-2 (COVID-19) RNA ELLIOT+probe Ql (Unsp spec) Negative NEGATIVE [facility] Comment on above: This test has not [...] declaration isterminated or authorization is revoked sooner. Laboratory - Specimen inform ationOrdered By: Foreign Torres on 12-03-2024 Appearance (U) SL CLOUDY CLEAR [facility] Color (U) YELLOW YELLOW [facility] Laboratory - UrinalysisOrder ed By: Foreign Torres on 12-03-2024 Leukocyte esterase Test strip Ql (U) Negative NEGATIVE [facility] Mucus Ql (Urine sed) NONE SEEN NONE SEEN [facility] Nitrite Ql (U) Negative NEGATIVE [facility] Protein Ql (U) Negative NEG/TRACE [facility] Leukocytes [#/volume] correc evelyne for nucleated erythrocytes in Blood by Automated counOrdered By: Foreign Torres on 12-03-2024 WBC corrected for nucl RBC Auto (Bld) [#/Vol] 9.5 10 3/uL 4.0-11.0 [facility] MCH Auto (RBC) [Entitic mass ]Ordered By: Foreign Torres on 12-03-2024 MCH (RBC) [Entitic mass] 32.4 pg 25.9-34.0 [facility] MCHC Auto (RBC) [Mass/Vol]Or dered By: Foreign Torres on 12-03-2024 MCHC (RBC) [Mass/Vol] 33.6 g/dL 29.9-35.2 [facility] MCV Auto (RBC) [Entitic vol] Ordered By: Foreign Torres on 12-03-2024 MCV (RBC) [Entitic vol] 96.4 fL High 80.0-94.[address] [facility] No Panel InformationOrdered By: Foreign Torres on 12-03-2024 Urine Bacteria TRACE #/HPF Abnormal NONE SEEN [facility] Urine Culture Reflexed NO [facility] Urine Occult Blood TRACE-I NEGATIVE [facility] Urine Other Casts NONE SEEN #/LPF NONE SEEN [facility] Urine Other Crystals None Seen #/HPF None Seen [facility] Urine RBC 2-5 #/HPF Abnormal 0-2 [facility] Urine Squamous Epithelial Cells RARE #/LPF NONE/RARE [facility] Urine WBC 2-5 #/HPF Abnormal NONE SEEN [facility] Absolute Basophils (Manual) 0.00 10 3/uL 0.00-0.10 [facility] Band Neutrophils # (Manual) 0.4 10 3/uL High 0.0-0.3 [facility] Eosinophils # (Manual) 0.00 10 3/uL 0.00-0.70 [facility] Lymphocytes # (Manual) 0.28 10 3/uL Low 1.20-3.80 [facility] Monocytes # (Manual) 0.38 10 3/uL 0.30-0.80 [facility] Segmented Neutrophils # (Manual) 8.45 10 3/uL High 1.4-6.5 [facility] No Panel InformationOrdered By: Juanjo Clark on 12-03-2024 C-Reactive Protein, Quantitative 6.98 mg/dL High <=0.50 [facility] Platelet mean volume Auto (B ld) [Entitic vol]Ordered By: Foreign Torres on 12-03-2024 Platelet mean volume (Bld) [Entitic vol] 9.2 fL Low 9.5-13.5 [facility] Platelets Auto (Bld) [#/Vol] Ordered By: Foreign Torres on 12-03-2024 Platelets (Bld) [#/Vol] 213 10 3/uL 150-450 [facility] RBC Auto (Bld) [#/Vol]Ordere d By: Foreign Torres on 12-03-2024 RBC (Bld) [#/Vol] 3.92 10 6/uL Low 4.70-6.10 [facility] Segmented neutrophils/100 WB C Manual cnt (Bld)Ordered By: Foreign Torres on 12-03-2024 Segmented neutrophils/100 WBC (Bld) 89.0 % High 43.0-75.0 [facility] Serum or plasma anion gap de terminationOrdered By: Foreign Torres on 12-03-2024 Anion gap [Moles/Vol] 12.5 mmol/L [facility] CNPJes [facility] ([id number]) 1950 M Date Time Provider [facility] we recorded the [...] (mouth or hand numbness or tingling). - thljvfy-tngykntgw-bbgg min D3 500 mg-5 mcg (200 unit) per [...] 10 mg by mouth once daily. - losartan-hydrochloroth iazide (HYZAAR) 100-25 mg per tablet Take 1 [...] Encounter Status:Closed by FERNANDO DIAZ on 11/23/24 Normal [facility] Laboratory - Chemistry and C hemistry - challengeOrdered By: Alvin Lo on 11-22-2024 Calcium [Mass/Vol] 9.0 mg/dL 8.5-10.1 [facility] No Panel InformationOrdered By: Outside Provider on 11-22-2024 Parathyroid Hormone (Intact) 26 pg/mL 15-65 [facility] Comment on above: Performed at: [facility] [id number] [place] [address] [id number] Director: Shahab Rodney PhD, Phone: [phone] Elvis 11-18-2024 [facility] Telephone (ENSSELMA) ZACHARYBANG Sow ([id number]) 1950 M Date Time Provider Department 11/18/24 GENEVA BUTLER During your visit today, we recorded the following information about you: Lois Wise, RN 11/18/2024 2:37 PM Signed Called pt [...] (mouth or hand numbness or tingling). - ykiteat-umdkrljpd-adtu min D3 500 mg-5 mcg (200 unit) per [...] 10 mg by mouth once daily. - losartan-hydrochloroth iazide (HYZAAR) 100-25 mg per tablet Take 1 [...] sensation [R20.9] 06/30/2019 Encounter Status:Closed by LOIS WSIE on 11/18/24 Normal [facility] Calcium SerPl-mCncOrdered By : Outside Provider on 11-15-2024 Calcium [Mass/Vol] 9.2 mg/dL 8.5-10.2 [facility] Comment on above: Order Comment: Speci men Type: BLOOD SPECIMEN Ordering Facility: [facility] Address: [address] [place] [address] Performed By: #### 1 [id number] #### [id number] [address] [place] [address] [place] No Panel InformationOrdered By: Outside Provider on 11-15-2024 Parathyroid Hormone (Intact) 16 pg/mL [facility] PTH-Intact SerPl-mCncon 07- Parathyrin.intact [Mass/Vol] 16 pg/mL Normal [facility] Comment on above: Order Comment: Speci men Type: BLOOD SPECIMEN Ordering Facility: [facility] Address: [facility] [place] [address] Performed By: #### 2 [id number] #### [facility] CLIA [id number] [place] [address] [place] ANES POSTPROC EVALon 025 ANES POSTPROC EVAL HNO ID: [id number] Author: SONG JORDAN III, MD Service: Anesthesiology Author Type: Anesthesiologist Type: Anesthesia Postprocedure Evaluation Filed: 11/14/2024 12:51 Note Text: POST ANESTHESIA EVALUATION NOTE : 1950 Procedure Summary Date: 11/14/24 Room / Location: [place] [address] / OR Anesthesia Start: 722 Anesthesia Stop: [...] November 14, 2024 TIME: 12:50 PM CSN: [id number] [facility] ANES PRE-OPon 11-14-2024 ANES PRE-OP HNO ID: [id number] Author: SONG JORDAN III, MD Service: Anesthesiology [...] no. Thick neck: no Ramírez present: no Microretrognathia/Micr onagthia/Recessed Chin: No DENTAL Dental findings: teeth intact. [...] and consent discussed: yes. Patient / Responsible Libertarian agrees to proceed: yes Patient / Surrogate [...] none. Vitals Value Taken Time BP 137/88 11/14/24644 Pulse 58 11/14/2445 Resp 20 11/14/24644 Temp 36.6 ?C (97.9 ?F) 11/14/24644 SpO2 98 % 11/14/24644 Facility-Administered Medications as [...] 500 mg by mouth once daily. - losartan-hydrochloroth iazide (HYZAAR) 100-25 mg per tablet Take 1 [...] November 14, 2024 TIME: 7:03 AM CSN: [id number] [facility] BRIEF OP NOTon 11-14-2024 BRIEF OP NOT HNO ID: [id number] Author: TIFFANY WESTBROOK MD Service: Endocrine Surgery Author Type: Physician Type: Brief Op Note Filed: 11/14/2024 08:20 Note Text: Brief Operative Note Patient Name: Bang Sharma LOG ID: [id number] Surgery/Procedure Date: 11/14/2024 Surgeon(s)/Procedurali st(s) and Billing Specialist(s): Surgeons and Role: * Geneva Butler MD [...] 11/14/2024 8:10 AM A : right upper [id number] Tissue Parathyroid Gland, Right SURGICAL PATHOLOGY Geneva Butler MD 11/14/2024 7:55 AM B : Left upper 12x9x3 Tissue Parathyroid Gland, Left SURGICAL PATHOLOGY Geneva Butler MD 11/14/2024 8:04 AM C : right upper [id number] Tissue Parathyroid Gland, Right SURGICAL PATHOLOGY Geneva [...] Westbrook MD DATE: 11/14/24 TIME: 8:19 AM [facility] ECG COMPLETEon 11-14-2024 ECG COMPLETE Ventricular Rate : 6 4 BPM Atrial Rate : 64 BPM P-R Interval : 164 ms QRS Duration : 192 ms Q-T Interval : 488 ms QTC Calculation(Bazett) : 503 ms Calculated P [place] : 73 degrees Calculated R [place] : -76 degrees Calculated T [place] : 19 degrees Normal sinus rhythm Right bundle branch block Left anterior fascicular block Bifascicular block Septal infarct , age undetermined Abnormal ECG No previous ECGs available Confirmed by KEON MAGAÑA MD ([id number]) on 11/14/2024 12:20:23 PM NAME : BANG SHARMA PID : [id number] : 1950 Gender : Male Race : ORD : [id number] Procedure Date : Nov 14 2024 11:35:23 Edit Date : Nov 14 2024 12:20:28 Diagnosis: Normal sinus rhythm Right bundle branch block Left anterior fascicular block Bifascicular block Septal infarct , age undetermined Abnormal ECG No previous ECGs available Confirmed by KEON MAGAÑA MD ([id number]) on 11/14/2024 12:20:23 PM Test Reason : Post-OP Location : 1 : [facility] 021 Overread By : KEON MAGAÑA MD Edited By : KEON MAGAÑA MD Referred By : , Acquired by : DUONG KUMAR [facility] INTRAOPERATIVE PTHon 025 INTRAOPERATIVE PTH 73 pg/mL High [facility] Comment on above: Order Comment: Speci men Type: BLOOD SPECIMEN Ordering Facility: [facility] Address: [address] [place] [address] Performed By: #### R IPTH #### [facility] [facility] [place] [id number] [address] [place] [address] INTRAOPERATIVE PTH 405 pg/mL [facility] Comment on above: Order Comment: Juana ceron Type: BLOOD SPECIMEN Ordering Facility: [facility] Address: [address] [place] [address] Performed By: #### R IPTH #### [facility] [place] [id number] [address] [place] [address] OF [place] OPERATIVE NOon 11-14-2024 OPERATIVE NO HNO ID: [id number] Author: GENEVA BUTLER MD Service: Endocrine Surgery Author Type: Physician Type: Operative Report Filed: 11/15/2024 06:54 Note Text: [facility] - Operative Report BANG SHARMA : 1950 AGE: 74. SEX: M PATIENT TYPE: A HOSP SVC: ENDOCRINE SCHNEIDER LOCATION: [facility] [place] ATTENDING PHYSICIAN: Geneva Butler MD CSN NUMBER: [id number] DATE OF SURGERY/PROCEDURE: 11/14/2024 INCISION/PROCEDURE START TIME: 7:40 a.m. INCISION CLOSE/PROCEDURE END TIME: 8:16 a.m. PREOPERATIVE DIAGNOSIS: Primary hyperparathyroidism. POSTOPERATIVE DIAGNOSIS: Primary hyperparathyroidism. SURGEON: Geneva Butler MD CHOKE SETTER: Tiffany Westbrook MD SURGERY/PROCEDURE: Parathyroid exploration with [...] room, extubated, and in good condition. Dr. Butelr served as primary and co-surgeon and scrubbed from skin incision to completion of skin closure. There was no qualified resident available to help with this case, and Dr. Westbrook was asked to serve as assistant teaching professor. During the course of the dissection, the assistant teaching professor assisted with mobilization, vascular isolation, and division. ESTIMATED BLOOD LOSS: Minimal. DRAINS: None. SPECIMENS: Sent to Pathology: 1. Right upper parathyroid gland. 2. Left upper parathyroid gland. COUNTS: Sponge and needle counts correct. COMPLICATIONS: There were no intraoperative complications. Geneva (more content not included)... [facility] Pathology biopsy report Colby (Tiss)on 11-14-2024 AP DISCLAIMER [facility] Comment on above: Order Comment: Speci men Type: TISSUE SPECIMEN Ordering Facility: [facility] Address: [address], [place] [address] Result Comment: Lindsey Farias Test (LDT) Disclaimer: Performance characteristics of immunohistochemical, immunofluorescent, and chromogenic in-situ hybridization tests have been determined by the performing laboratory within [facility]'s Lan Lena Healy Pathology and Laboratory Medicine Department ([facility], [facility], [facility], [facility], [facility], [facility], [facility]) in a manner consistent with CLIA [...] appropriately. Performed By: #### 6 6121-5 #### [facility] CLIA [id number] [address] [place] [address] LABORATORY CLIA [id number] [address] [place] [address] OF [place] CASE REPORT [facility] Comment on above: Order Comment: Speci men Type: TISSUE SPECIMEN Ordering Facility: [facility] Address: [address] [place] [address] Result Comment: [facility] Pathology Report Case: [id number] Authorizing Provider: Geneva Butler MD Collected: 11/14/2024 07:55 AM Ordering Location: [facility] Surgery Received: 11/14/2024 08:04 AM Pathologist: Deysi Singh MD Intraop: Ella Johnson MD Specimens: A) - Parathyroid Gland, Right, right upper [id number] B) - Parathyroid Gland, Left, Left upper 12x9x3 C) - Parathyroid Gland, Right, right upper [id number] Performed By: #### 6 6121-5 #### [facility] CLIA [id number] [address] [place] [address] LABORATORY CLIA [id number] [address] [place] [address] OF [place] CLINICAL HISTORY Normal [facility] Comment on above: Order Comment: Speci men Type: TISSUE SPECIMEN Ordering Facility: [facility] Address: [address] [place] [address] Result Comment: Pre- op diagnosis: Hyperparathyroidism (HCC) [E21.3] Performed By: #### 6 6121-5 #### [facility] CLIA [id number] [address] [place], [place] [id number] [facility] CLIA [id number] [address] [place] [address] FINAL DIAGNOSIS [facility] Comment on above: Order Comment: Speci men Type: TISSUE SPECIMEN Ordering Facility: [facility] Address: [address] [place] [address] Result Comment: A, C . Right upper parathyroid, excision: - Hypercellular parathyroid. B. Left upper parathyroid, excision: - Hypercellular parathyroid. SHANA November 16, 2024 at 1104 EDT Performed By: #### 6 6121-5 #### [facility] CLIA [id number] [address] [place] [address] [facility] CLIA [id number] [address] [place] [address] STATES OF [place] FINAL PERFORMING LAB [facility] Comment on above: Order Comment: Speci men Type: TISSUE SPECIMEN Ordering Facility: [facility] Address: [address] [place] [address] Result Comment: Diag nostic interpretation performed at: [facility], [address] [place], [place] [address] CLIA# [id number] Supervisor General: Herson Cuenca MD Performed By: #### 6 6121-5 #### [facility] CLIA [id number] [address] [place], [place] [address] [facility] OF [place] [facility] CLIA [id number] [address] [place], [place] [address] [place] OF [place] GROSS DESCRIPTION [facility] Comment on above: Order Comment: Speci men Type: TISSUE SPECIMEN Ordering Facility: [facility] Address: [address] [place], [place] [address] Result Comment: A. P arathyroid Gland, Right FSA1: Received fresh for frozen section is one piece of brown soft tissue weighing 0.590 grams and measuring 2.2 x 0.9 x 0.6 cm. 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 Gross examination performed at [facility], [address] [place] [address] CLIA# [id number] B. Parathyroid Gland, Left FSB1: Received fresh for frozen section is one piece of brown soft tissue weighing 0.245 grams and measuring 0.9 x 0.9 x 0.3 cm. The tissue is entirely submitted for frozen section in FSB1. Gross examination performed at [facility], [address] [place] [address], [place] [address] CLIA# [id number] C. Parathyroid Gland, Right Labeled: ??? Right upper 31 x 18 x 10??? Received: In formalin Size: 2.8 x 1.5 x 0.9 cm Weight: 1640 mg Cassette code: Representatively in C1 (serially section) Gross examination performed at [facility], [address] [place] [address] MSL/MADIHA 11/14/24 12:25 PM Performed By: #### 6 6121-5 #### [facility] CLIA [id number] [address] [place] [address] CLIA [id number] [address] [place] [address] INTRAOPERATIVE DIAGNOSIS [facility] Comment on above: Order Comment: Speci men Type: TISSUE SPECIMEN Ordering Facility: [facility] Address: [address] [place] [address] Result Comment: A. P arathyroid Gland, Right FSA1: Hypercellular parathyroid tissue (Ella Johnson MD) Intraoperative diagnosis performed at [facility], [address] [place] [address] CLIA# [id number] B. Parathyroid Gland, Left FSB1: Hypercellular parathyroid tissue (Ella Johnson MD) Intraoperative diagnosis performed at [facility], [address] [place] [address] CLIA# [id number] Performed By: #### 6 6121-5 #### [facility] CLIA [id number] [address] [place] [facility] CLIA [id number] [address] [place] [address] [place] Basic metabolic 2000 panelon 11-01-2024 Anion gap [Moles/Vol] 9 mmol/L Normal 8-15 [facility] Comment on above: Order Comment: Speci men Type: BLOOD SPECIMENOrdering Facility: [facility] Address: [address] [place] [address] Performed By: #### 2 4321-2 ####[facility] [id number] [place] [address] [place] Calcium [Mass/Vol] 11.0 mg/dL High 8.5-10.2 [facility] Comment on above: Order Comment: Speci men Type: BLOOD SPECIMENOrdering Facility: [facility] Address: [address] [place] [address] Performed By: #### 2 4321-2 ####[facility] [id number] [place] [address] [place] Chloride [Moles/Vol] 105 mmol/L Normal 98-107 [facility] Comment on above: Order Comment: Speci men Type: BLOOD SPECIMENOrdering Facility: [facility] Address: [address] [place], [place] [address] Performed By: #### 2 4321-2 ####[facility] [id number] [place] [id number] [place] CO2 [Moles/Vol] 26 mmol/L Normal 22-30 [facility] Comment on above: Order Comment: Speci men Type: BLOOD SPECIMENOrdering Facility: [facility] Address: [address] [place], [place] [address] Performed By: #### 2 4321-2 ####[facility] [id number] [address] [address] [place] Creatinine [Mass/Vol] 0.86 mg/dL Normal 0.73-1.22 [facility] Comment on above: Order Comment: Juana ceron Type: BLOOD SPECIMENOrdering Facility: [facility] Address: [address] [place] [address] Performed By: #### 2 4321-2 ####[facility] [id number] [place] [address] [place] eGFRcr SerPlBld CKD-EPI 2020 90 mL/min/1.73m??? Normal >=60 [facility] Comment on above: Order Comment: Juana ceron Type: BLOOD SPECIMENOrdering Facility: [facility] Address: [address] [place] [address] Result Comment: Lenora mated Glomerular Filtration Rate [...] actual GFR. Performed By: #### 2 4321-2 ####[facility] [id number] [place] [address] [place] Glucose [Mass/Vol] 108 mg/dL High 74-99 [facility] Comment on above: Order Comment: Juana ceron Type: BLOOD SPECIMENOrdering Facility: [facility] Address: [address] [place] [address] Result Comment: The [place] Diabetes Association (ADA) provides guidance for cutoff [...] Standards of Medical Care in Diabetes 2016, [place] [employer]. Diabetes Care. 2016.39(Suppl 1). Performed By: #### 2 4321-2 ####[facility] [id number] [address] [address] [place] Potassium [Moles/Vol] 4.5 mmol/L Normal 3.7-5.1 [facility] Comment on above: Order Comment: Speci men Type: BLOOD SPECIMENOrdering Facility: [facility] Address: [address] [place] [address] Performed By: #### 2 4321-2 ####[facility] [id number] [place] [address] [place] Sodium [Moles/Vol] 140 mmol/L Normal 136-144 [facility] Comment on above: Order Comment: Speci men Type: BLOOD SPECIMENOrdering Facility: [facility] Address: [address] [place] [address] Performed By: #### 2 4321-2 ####[facility] [id number] [place] [address] [place] Urea nitrogen [Mass/Vol] 18 mg/dL Normal 9-24 [facility] Comment on above: Order Comment: Speci men Type: BLOOD SPECIMENOrdering Facility: [facility] Address: [address] [place] [address] Performed By: #### 2 4321-2 ####[facility] [id number] [place] [address] [place] Basophils Auto (Bld) [#/Vol] Ordered By: Geneva Butler on 11-01-2024 Basophils (Bld) [#/Vol] 0.05 10*3/uL <0.11 [facility] Basophils/100 WBC Auto (Bld) Ordered By: Geneva Butler on 11-01-2024 Basophils/100 WBC (Bld) 0.9 % F [facility] Blood manual differential co mment interpretation narrativeOrdered By: Geneva Butler on 11-01-2024 Manual differential comment Colby (Bld) [Interp] Auto [facility] CBC W Auto Differential pane l (Bld)on 11-01-2024 Basophils (Bld) [#/Vol] 0.05 10*3/uL Normal <0.11 [facility] Comment on above: Order Comment: Speci men Type: BLOOD SPECIMENOrdering Facility: [facility] Address: [address] [place] [address] Performed By: #### 5 7021-8 ####[facility] [id number] [place] [address] [place] Basophils/100 WBC (Bld) 0.9 % Normal C [facility] Comment on above: Order Comment: Speci men Type: BLOOD SPECIMENOrdering Facility: [facility] Address: [address] [place] [address] Performed By: #### 5 7021-8 ####[facility] [id number] [place] [address] [place] Differential cell count method Nom (Bld) Auto Normal [facility] Comment on above: Order Comment: Speci men Type: BLOOD SPECIMENOrdering Facility: [facility] Address: [address] [place] [address] Performed By: #### 5 7021-8 ####[facility]CLIA [id number] [place] [address] [place] Eosinophils (Bld) [#/Vol] 0.11 10*3/uL Normal <0.46 [facility] Comment on above: Order Comment: Speci men Type: BLOOD SPECIMENOrdering Facility: [facility] Address: [address] [place] [address] Performed By: #### 5 7021-8 ####[facility] [id number] [place] [address] [place] Eosinophils/100 WBC (Bld) 1.9 % Normal [facility] Comment on above: Order Comment: Speci men Type: BLOOD SPECIMENOrdering Facility: [facility] Address: [address] [place] [address] Performed By: #### 5 7021-8 ####[facility]CLIA [id number] [place] [address] [place] Erythrocyte distribution width (RBC) [Ratio] 13.6 % Normal 11.5-15.0 [facility] Comment on above: Order Comment: Speci men Type: BLOOD SPECIMENOrdering Facility: [facility] Address: [address] [place] [address] Performed By: #### 5 7021-8 ####[facility]CLIA [id number] [place] [address] [place] Hematocrit (Bld) [Volume fraction] 44.3 % Normal 39.0-51.0 [facility] Comment on above: Order Comment: Speci men Type: BLOOD SPECIMENOrdering Facility: [facility] Address: [address] [place] [address] Performed By: #### 5 7021-8 ####[facility]CLIA [id number] [place] [address] [place] Hemoglobin (Bld) [Mass/Vol] 14.3 g/dL Normal 13.0-17.0 [facility] Comment on above: Order Comment: Speci men Type: BLOOD SPECIMENOrdering Facility: [facility] Address: [address] [place] [address] Performed By: #### 5 7021-8 ####[facility]CL[facility] [id number] [place] [address] [place] Immature granulocytes (Bld) [#/Vol] 10*3/uL Normal <0.10 [facility] Comment on above: Order Comment: Speci men Type: BLOOD SPECIMENOrdering Facility: [facility] Address: [address] [place] [address] Performed By: #### 5 7021-8 ####[facility]CLIA [id number] [address] STATES [facility] Immature granulocytes/100 WBC (Bld) 0.3 % Normal [facility] Comment on above: Order Comment: Speci men Type: BLOOD SPECIMENOrdering Facility: [facility] Address: [address] [place] [address] Performed By: #### 5 7021-8 ####[facility]IA [id number] [place] [address] [place] Lymphocytes (Bld) [#/Vol] 1.48 10*3/uL Normal 1.00-4.00 [facility] Comment on above: Order Comment: Speci men Type: BLOOD SPECIMENOrdering Facility: [facility] Address: [address] [place] [address] Performed By: #### 5 7021-8 ####[facility]IA [id number] [address] STATES [place] Lymphocytes/100 WBC (Bld) 25.3 % Normal [facility] Comment on above: Order Comment: Speci men Type: BLOOD SPECIMENOrdering Facility: [facility] Address: [address] [place] [address] Performed By: #### 5 7021-8 ####[facility]CLIA [id number] [place] [address] [place] MCH (RBC) [Entitic mass] 31.2 pg Normal 26.0-34.0 [facility] Comment on above: Order Comment: Speci men Type: BLOOD SPECIMENOrdering Facility: [facility] Address: [address] [place] [address] Performed By: #### 5 7021-8 ####[facility] LABCLIA [id number] [place] [address] [place] MCHC (RBC) [Mass/Vol] 32.3 g/dL Normal 30.5-36.0 [facility] Comment on above: Order Comment: Speci men Type: BLOOD SPECIMENOrdering Facility: [facility] Address: [address] [place] [address] Performed By: #### 5 7021-8 ####[facility] LABIA [id number] [place] [address] [place] MCV (RBC) [Entitic vol] 96.7 fL Normal 80.0-100.0 C [facility] Comment on above: Order Comment: Speci men Type: BLOOD SPECIMENOrdering Facility: [facility] Address: [address] [place] [address] Performed By: #### 5 7021-8 ####[facility] LABIA [id number] [place] [address] [place] Monocytes (Bld) [#/Vol] 0.70 10*3/uL Normal <0.87 [facility] Comment on above: Order Comment: Speci men Type: BLOOD SPECIMENOrdering Facility: [facility] Address: [address] [place] [address] Performed By: #### 5 7021-8 ####[facility]IA [id number] [address] [place] Monocytes/100 WBC (Bld) 11.9 % Normal [facility] Comment on above: Order Comment: Speci men Type: BLOOD SPECIMENOrdering Facility: [facility] Address: [address] [place] [address] Performed By: #### 5 7021-8 ####[facility]CLIA [id number] [place] [address] [place] Neutrophils (Bld) [#/Vol] 3.50 10*3/uL Normal 1.45-7.50 [facility] Comment on above: Order Comment: Speci men Type: BLOOD SPECIMENOrdering Facility: [facility] Address: [address] [place] [address] Performed By: #### 5 7021-8 ####[facility]CLIA [id number] [place] [address] [place] Neutrophils/100 WBC (Bld) 59.7 % Normal [facility] Comment on above: Order Comment: Speci men Type: BLOOD SPECIMENOrdering Facility: [facility] Address: [address] [place] [address] Performed By: #### 5 7021-8 ####[facility]CLIA [id number] [place] [address] [place] Nucleated RBC (Bld) [#/Vol] 10*3/uL Normal <0.01 [facility] Comment on above: Order Comment: Speci men Type: BLOOD SPECIMENOrdering Facility: [facility] Address: [address] [place] [address] Performed By: #### 5 7021-8 ####[facility]CL[facility] [id number] [place] [address] [place] Nucleated RBC/100 WBC (Bld) [Ratio] 0.0 /100 WBC Normal [facility] Comment on above: Order Comment: Speci men Type: BLOOD SPECIMENOrdering Facility: [facility] Address: [address] [place] [address] Performed By: #### 5 7021-8 ####[facility]CLIA [id number] [place] [id number] [place] Platelet mean volume (Bld) [Entitic vol] 9.1 fL Normal 9.0-12.7 [facility] Comment on above: Order Comment: Speci men Type: BLOOD SPECIMENOrdering Facility: [facility] Address: [address] [place] [address] Performed By: #### 5 7021-8 ####[facility] [id number] [place] [address] [place] Platelets (Bld) [#/Vol] 307 10*3/uL Normal 150-400 [facility] Comment on above: Order Comment: Speci men Type: BLOOD SPECIMENOrdering Facility: [facility] Address: [address] [place] [address] Performed By: #### 5 7021-8 ####[facility] [id number] [place] [address] [place] RBC (Bld) [#/Vol] 4.58 10*6/uL Normal 4.20-6.00 [facility] Comment on above: Order Comment: Speci men Type: BLOOD SPECIMENOrdering Facility: [facility] Address: [address] [place] [address] Performed By: #### 5 7021-8 ####[facility] [id number] [place] [address] [place] WBC (Bld) [#/Vol] 5.86 10*3/uL Normal 3.70-11.00 [facility] Comment on above: Order Comment: Speci men Type: BLOOD SPECIMENOrdering Facility: [facility] Address: [address] [place] [address] Performed By: #### 5 7021-8 ####[facility] [id number] [place] [id number] [place] Calcium.ionized [Moles/Vol]o n 11-01-2024 Calcium.ionized (Bld) [Mass/Vol] 1.45 mmol/L High 1.08-1.30 [facility] Comment on above: Order Comment: Speci men Type: BLOOD SPECIMENOrdering Facility: [facility] Address: [address] [place] [address] Performed By: #### 1 995-0 ####[facility] [id number] [place] [address] [place] Calcium.ionized adjusted to pH 7.4 (Bld) [Moles/Vol] 1.44 mmol/L High 1.08-1.30 [facility] Comment on above: Order Comment: Speci men Type: BLOOD SPECIMENOrdering Facility: [facility] Address: [address] [place] [address] Performed By: #### 1 995-0 ####[facility] [id number] [place] [address] [place] ECG COMPLETEon 11-01-2024 ECG COMPLETE Ventricular Rate : 5 6 BPM Atrial Rate : 56 BPM P-R Interval : 174 ms QRS Duration : 192 ms Q-T Interval : 508 ms QTC Calculation(Bazett) : 490 ms Calculated P [place] : 85 degrees Calculated R [place] : -69 degrees Calculated T [place] : 33 degrees SINUS BRADYCARDIA LEFT AXIS DEVIATION COMPLETE RIGHT BUNDLE BRANCH BLOCK ABNORMAL ECG Confirmed by ENRIQUE ROSALES MD ([id number]) on 12/08/2024 9:49:14 AM NAME : BANG SHARMA PID : [id number] : 1950 Gender : Male Race : ORD : [id number] Procedure Date : Nov 01 2024 11:55:05 Edit Date : Dec 08 2024 09:49:21 Diagnosis: SINUS BRADYCARDIA LEFT AXIS DEVIATION COMPLETE RIGHT BUNDLE BRANCH BLOCK ABNORMAL ECG Confirmed by ENRIQUE ROSALES MD ([id number]) on 12/08/2024 9:49:14 AM Test Reason : Location : 314 : J14 J14 Overread By : ENRIQUE ROSALES MD Edited By : ENRIQUE ROSALES MD Referred By : GENEVA BUTLER Acquired by : JENIFFER MCCAULEY [facility] Eosinophils/100 WBC Auto (Bl d)Ordered By: Geneva Butler on 11-01-2024 Eosinophils/100 WBC (Bld) 1.9 % [facility] Erythrocyte distribution wid th Auto (RBC) [Ratio]Ordered By: Geneva Butler on 11-01-2024 Erythrocyte distribution width (RBC) [Ratio] 13.6 % 11.5-15.0 [facility] HISTORY PHYSICALon HISTORY PHYSICAL HNO ID: [id number] Author: LUANA BOSS PA-C Service: ? Author Type: Physician Billing Specialist Type: H&P Filed: 11/02/2024 11:04 Note Text: [...] physical activity. STOP-Bang Score: STOP-Bang Score: (+REMY) [id number] Score: Age: >=75 Sex: male Hypertension history: Yes [id number] Score: ARISCAT Score: Age: 51-80 Preoperative SpO2: >=96% Preoperative anemia: Yes Duration of surgery: <2 hrs Emergency procedure: No ARISCAT Score: I - PHYSICAL EVALUATION AIRWAY Patient intubated: No. Tracheostomy tube not present Mallampati: IV. TM distance: >3 FB. Neck ROM: full ROM without neurological symptoms. Mouth opening: adequate. Short neck: no. Thick neck: no Microretrognathia/Micr onagthia/Recessed Chin: No DENTAL Dental findings: teeth intact. [...] is scheduled for procedure on 11/14/2024 at [facility]. REVIEW OF SYSTEMS: General: No weight loss, malaise or fevers. Neurological: No history of TIA's, stroke, [employer] tumor, impaired sensorium, hemiplegia, paraplegia or quadraplegia. [...] taking an (more content not included)... Normal [facility] Hematocrit Auto (Bld) [Volum e fraction]Ordered By: Geneva Butler on 11-01-2024 Hematocrit (Bld) [Volume fraction] 44.3 % 39.0-51.0 [facility] Hemoglobin [Mass/volume] in BloodOrdered By: Geneva Butler on 11-01-2024 Hemoglobin (Bld) [Mass/Vol] 14.3 g/dL 13.0-17.0 [facility] Laboratory - Hematology and Cell countsOrdered By: Geneva Butler on 11-01-2024 Eosinophils (Bld) [#/Vol] 0.11 10*3/uL <0.46 [facility] Immature granulocytes/100 WBC (Bld) 0.3 % [facility] Leukocytes [#/volume] correc evelyne for nucleated erythrocytes in Blood by Automated counOrdered By: Geneva Butler on 11-01-2024 WBC corrected for nucl RBC Auto (Bld) [#/Vol] 5.86 k/uL 3.70-11.00 [facility] Lymphocytes Auto (Bld) [#/Vo l]Ordered By: Geneva Butler on 11-01-2024 Lymphocytes (Bld) [#/Vol] 1.48 10*3/uL 1.00-4.00 [facility] Lymphocytes/100 WBC Auto (Bl d)Ordered By: Geneva Butler on 11-01-2024 Lymphocytes/100 WBC (Bld) 25.3 % [facility] MCH Auto (RBC) [Entitic mass ]Ordered By: Geneva Butler on 11-01-2024 MCH (RBC) [Entitic mass] 31.2 pg 26.0-34.0 [facility] MCHC Auto (RBC) [Mass/Vol]Or dered By: Geneva Butler on 11-01-2024 MCHC (RBC) [Mass/Vol] 32.3 g/dL 30.5-36.0 [facility] MCV Auto (RBC) [Entitic vol] Ordered By: Geneva Butler on 11-01-2024 MCV (RBC) [Entitic vol] 96.7 fL 80.0-100.0 F [facility] Monocytes Auto (Bld) [#/Vol] Ordered By: Geneva Butler on 11-01-2024 Monocytes (Bld) [#/Vol] 0.70 10*3/uL <0.87 [facility] Monocytes/100 WBC Auto (Bld) Ordered By: Geneva Butler on 11-01-2024 Monocytes/100 WBC (Bld) 11.9 % F [facility] NM PARATHYROID W SPECT/CTon 11-01-2024 NM PARATHYROID W SPECT/CT * * *Final Report* * * DATE OF EXAM: Nov 01 2024 2:25PM Maura 0089 - NM PARATHYROID W SPECT/CT / [...] be communicated with the ordering provider via [employer] staff message or phone message by [employer] within 2 business days of report finalization. --END OF FINDING-- Supervisor Special Services: BARBARA Transcribe Date/Time: Nov 02 2024 7:32A Dictated by : BHAVIK RIVERA DO This examination was interpreted and the report reviewed and electronically signed by: BHAVIK RIVERA DO on Nov 02 2024 7:42AM EST [id number] ACTIONABLE Invalid Interpretation Code [facility] Neutrophils Auto (Bld) [#/Vo l]Ordered By: Geneva Butler on 11-01-2024 Neutrophils (Bld) [#/Vol] 3.50 10*3/uL 1.45-7.50 [facility] Neutrophils/100 WBC Auto (Bl d)Ordered By: Geneva Butler on 11-01-2024 Neutrophils/100 WBC (Bld) 59.7 % [facility] No Panel InformationOrdered By: Geneva Butler on 11-01-2024 Immature Granulocyte # (Auto) <0.03 k/uL <0.10 [facility] Ionized Calcium (pH Adjusted) 1.44 mmol/L High 1.08-1.30 [facility] Nucleated RBC Auto (Bld) [#/ Vol]Ordered By: Geneva Butler on 11-01-2024 Nucleated RBC (Bld) [#/Vol] 10*3/uL <0.01 [facility] Nucleated erythrocytes [Pres ence] in Blood by Automated countOrdered By: Geneva Butler on 11-01-2024 Nucleated RBC Auto Ql (Bld) 0.0 /100{WBC} [facility] Platelet mean volume Auto (B ld) [Entitic vol]Ordered By: Geneva Butler on 11-01-2024 Platelet mean volume (Bld) [Entitic vol] 9.1 fL 9.0-12.7 [facility] Platelets Auto (Bld) [#/Vol] Ordered By: Geneva Butler on 11-01-2024 Platelets (Bld) [#/Vol] 307 10*3/uL 150-400 [facility] RBC Auto (Bld) [#/Vol]Ordere d By: Geneva Butler on 11-01-2024 RBC (Bld) [#/Vol] 4.58 10*6/uL 4.20-6.00 [facility] Serum ionized calcium measur ement using ion specific electrode (mass/volume)Ordered By: Geneva Butler on 11-01-2024 Calcium.ionized ISE [Mass/Vol] 1.45 mmol/L High 1.08-1.30 [facility] Office Visiton 10-25-2024 Follow-up visit [id number] Lucinda Sharma 1950 M Date Provider Department Center 10/25/2024 ALPESH MARQUEZ [facility] Family History Problem Relation Age of Onset Coronary artery disease Other Hypertension Other Family Status - Relation Status Age at Mother Father Other Level of Service:[address] [place] OFFICE/OUTPATIENT ESTABLISHED LOW MDM 20 MIN Normal [facility] CALCIUM, 24 HR URINEon 10-19 Calcium (24H U) [Mass/Time] 357.0 mg/24 hr High 100.0-300.0 [facility] Comment on above: Order Comment: Speci men Type: URINE SPECIMENOrdering Facility: [facility] Address: [address] [place] [address] Performed By: #### U CALCD ####[facility] LABCLIA [id number] [place] [id number] [facility] LABCLIA [id number] [place] [address] PERIOD (HRS) 24 hr Normal [facility] Comment on above: Order Comment: Speci men Type: URINE SPECIMENOrdering Facility: [facility] Address: [address] [place] [address] Performed By: #### U CALCD ####[facility] LABCLIA [id number] [address] [address] [facility] LABCLIA [id number] [place] [address] Specimen volume (24H U) 1.75 L Normal [facility] Comment on above: Order Comment: Speci men Type: URINE SPECIMENOrdering Facility: [facility] Address: [address] [place] [address] Performed By: #### U CALCD ####[facility] LABCLIA [id number] [place] [id number] [facility] LABCLIA [id number] [place] [address] CREATININE, 24 HOUR URINEon 10-19-2024 Creatinine (24H U) [Mass/Time] 2.006 g/24 hr High 1.000-2.000 [facility] Comment on above: Order Comment: Speci men Type: URINE SPECIMENOrdering Facility: [facility] Address: [address] [place] [address] Performed By: #### U CRD ####[facility] LABIA [id number] [place] [id number] [facility] LABCLIA [id number] [place] [address] PERIOD (HRS) 24 hr Normal [facility] Comment on above: Order Comment: Speci men Type: URINE SPECIMENOrdering Facility: [facility] Address: [address] [place] [address] Performed By: #### U CRD ####[facility] LABCLIA [id number] [place] [id number] [facility] LABCLIA [id number] [place] [address] Specimen volume (24H U) 1.75 L Normal C [facility] Comment on above: Order Comment: Speci men Type: URINE SPECIMENOrdering Facility: [facility] Address: [address] [place] [address] Performed By: #### U CRD ####[facility] LABCLIA [id number] [place] [id number] [facility] LABCLIA [id number] [place] [address] Elvis 10-04-2024 OTILIA Telephone (ENSUMN) KENNETH SHARMALAS Juanjose ([id number]) 1950 M Date Time Provider Department [facility] your visit today, we recorded the following information about you: Dora Larkin 10/04/2024 6:50 PM Signed Are you an Endocrinology Surgical Technologist located at [facility]? Yes Patient Name: Bang Sharma Age: [age] year old Requestor: Dora Larkin Reason for Exam: NM Parathyroid w SPECT/CT Orders needed prior to scheduling: NM PARATHYROID W SPECT/CT [id number] Are all orders above present: Yes When will patient be scheduled: Day 1: Week of 10/31 No Doses on Thursday Route to Nv Schedulers @ [facility] Scheduling Hyperthyroidism or Nodule (100-300 microCi I-123 [...] and taking 100mg's every other day. - losartan-hydrochloroth iazide (HYZAAR) 100-25 mg per tablet Take 1 [...] Status:Closed by DORA LARKIN on 10/10/24 Normal [facility] CNOVon 09-13-2024 CNOV Office Visit (ENSUMN ) BANG SHARMA ([id number]) 1950 M Date Time Provider Department 09/13/24 12:20 PM GENEVA BUTLER During your visit today, we recorded the following information about you: Pulse Blood pressure Weight Height 75/minute 124/63 123.2 kg 1.892 m Arlene Florian MA 09/13/2024 11:05 AM Signed Thank you for choosing the [facility] Department of Endocrinology, Diabetes and Metabolism. Did you know that you need to call 48 hours in advance of your scheduled visit, if you are unable to make your appointment? The [facility] [place] thanks you for your commitment, because patients not showing to their appointment results in a lost opportunity for patients to receive world class health care at the [facility]. To Cancel an appointment, please choose one of the following: - Call the Appointment Call Center at [phone] - From [facility], Go to Appointments - Cancel Appts If cancelling, consider your need to reschedule to prevent further delays in your care. To Schedule an appointment, please choose one of the following: - Call the Appointment Call Center at [phone] - From [facility], Go to Appointments - Request an Appt Geneva Butler MD 09/13/2024 12:00 PM Signed [facility] [place] Department of Endocrine Surgery Geneva Butler M.D. [address] [place] [address] Mr. Bang Sharma was seen in the [...] Alvin Lo D.O. Referring Provider: HERBER DONALD [[id number]] Allergies As of Date: 09/13/2024 Noted Allergy Reaction PENICILLINS 04/07/2014 4 - Hives INSECTS EXTRACT 10/31/2020 14 - Other: See Comments Comments: Insect protein - eyes swell and blistering Date Reviewed: 09/13/2024 Reviewed by: Arlene Florian MA - Fully Assessed Reason for Visit: Consult [173] Thyroid Problem [110] Hyperparathyroidism [1465] Primary Visit Diagnosis:Hyperparathy roidism (HCC) [E21.3 (more content not included)... Normal [facility] Orders Onlyon 08-26-2024 Orders Only [id number] ZacharyLucinda yuko Sow 1950 M Date Provider Department Center 08/26/2024 241-ALPESH [facility] Family History Problem Relation Age of Onset Coronary artery disease Other Hypertension Other Family Status - Relation Status Age at Other Normal [facility] Basophils Auto (Bld) [#/Vol] on 08-25-2024 Basophils (Bld) [#/Vol] Automated basoph il count 0.0-0.1 [facility] Basophils/100 WBC Auto (Bld) on 08-25-2024 Basophils/100 WBC (Bld) Automated basophil % Low 0. 2-2.0 [facility] Eosinophils/100 WBC Auto (Bl d)on 08-25-2024 Eosinophils/100 WBC (Bld) Automated eosinophil % Low 0.9-7.0 [facility] Erythrocyte distribution wid th Auto (RBC) [Ratio]on 08-25-2024 Erythrocyte distribution width (RBC) [Ratio] Erythrocyte distribution width [Ratio] by Automated count 11.0-15.0 [facility] Estimated glomerular filtrat ion rate (GFR) non- Americanon 08-25-2024 GFR/1.73 sq M.predicted among non-blacks MDRD (S/P/Bld) [Vol rate/Area] Estimated glomerular filtration rate (GFR) non- >=60 mL/min/1.73 m 2 [facility] Globulin Calc (S) [Mass/Vol] on 08-25-2024 Globulin (S) [Mass/Vol] Serum globulin measurement by calculation (mass/volume) [facility] Hematocrit Auto (Bld) [Volum e fraction]on 08-25-2024 Hematocrit (Bld) [Volume fraction] Hematocrit [Volume Fraction] of Blood by Automated count Low 42.0-54.0 [facility] Hemoglobin [Mass/volume] in Bloodon 08-25-2024 Hemoglobin (Bld) [Mass/Vol] Hemoglobin [Mass/volume] in Blood Low 14.0-18.0 [facility] Laboratory - Chemistry and C hemistry - challengeon 08-25-2024 Albumin [Mass/Vol] 2.8 g/dL Low 3.4-5.0 [facility] ALP [Catalytic activity/Vol] 45 U/L Low 46-116 [facility] ALT [Catalytic activity/Vol] 31 U/L 16-63 [facility] AST [Catalytic activity/Vol] 23 U/L 15-37 [facility] Bilirubin [Mass/Vol] 0.3 mg/dL 0.2-1.0 [facility] Calcium [Mass/Vol] 9.6 mg/dL 8.5-10.1 [facility] Chloride [Moles/Vol] 101 mmol/L 98-107 [facility] CO2 [Moles/Vol] 26.0 mmol/L 21.0-32.0 [facility] Creatinine [Mass/Vol] 0.90 mg/dL 0.70-1.30 [facility] GFR/1.73 sq M.predicted MDRD (S/P/Bld) [Vol rate/Area] mL/min/{1.73_m2} >=60 mL/min/1.73 m 2 [facility] Glucose [Mass/Vol] 93 mg/dL 74-106 [facility] Potassium [Moles/Vol] 3.5 mmol/L 3.5-5.1 [facility] Protein [Mass/Vol] 6.1 g/dL Low 6.4-8.2 [facility] Sodium [Moles/Vol] 133 mmol/L Low 136-145 [facility] Urea nitrogen [Mass/Vol] 18.0 mg/dL 7.0-18.0 [facility] Urea nitrogen/Creatinine [Mass ratio] 20.0 mg/mg [facility] Laboratory - Hematology and Cell countson 08-25-2024 Immature granulocytes/100 WBC (Bld) 0.4 % 0.0-0.5 [facility] Leukocytes [#/volume] correc evelyne for nucleated erythrocytes in Blood by Automated counon 08-25-2024 WBC corrected for nucl RBC Auto (Bld) [#/Vol] Leukocytes [#/volume] corrected for nucleated erythrocytes in Blood by Automated coun 4.0-11.0 [facility] Lymphocytes Auto (Bld) [#/Vo l]on 08-25-2024 Lymphocytes (Bld) [#/Vol] Lymphocytes [#/volume] in Blood by Automated count 1.2-3.8 [facility] Lymphocytes/100 WBC Auto (Bl d)on 08-25-2024 Lymphocytes/100 WBC (Bld) Lymphocytes/100 leukocytes in Blood by Automated count Low 20.5-60.0 [facility] MCH Auto (RBC) [Entitic mass ]on 08-25-2024 MCH (RBC) [Entitic mass] MCH [Entitic ma ss] by Automated count 25.9-34.0 [facility] MCHC Auto (RBC) [Mass/Vol]on 08-25-2024 MCHC (RBC) [Mass/Vol] MCHC [Mass/volume] by Automated count 29.9-35.2 [facility] MCV Auto (RBC) [Entitic vol] on 08-25-2024 MCV (RBC) [Entitic vol] MCV [Entitic vol ume] by Automated count High 80.0-94.0 [facility] Monocytes Auto (Bld) [#/Vol] on 08-25-2024 Monocytes (Bld) [#/Vol] Automated blood monocyte count High 0.3-0.8 [facility] Monocytes/100 WBC Auto (Bld) on 08-25-2024 Monocytes/100 WBC (Bld) Automated monocyte % High 1. 7-12.0 [facility] Neutrophils Auto (Bld) [#/Vo l]on 08-25-2024 Neutrophils (Bld) [#/Vol] Neutrophils [#/volume] in Blood by Automated count 1.4-6.5 [facility] Neutrophils/100 WBC Auto (Bl d)on 08-25-2024 Neutrophils/100 WBC (Bld) Automated neutrophil % 43.0-75.0 [facility] No Panel Informationon 08-25 Eosinophils # (Auto) 0.0 10 3/uL 0.0-0.7 [facility] Immature Granulocyte # (Auto) 0.03 10 3/uL 0.00-0.03 [facility] Platelet mean volume Auto (B ld) [Entitic vol]on 08-25-2024 Platelet mean volume (Bld) [Entitic vol] Platelet mean volume [Entitic volume] in Blood by Automated count 9.5-13.5 [facility] Platelets Auto (Bld) [#/Vol] on 08-25-2024 Platelets (Bld) [#/Vol] Platelets [#/vol ume] in Blood by Automated count 150-450 [facility] RBC Auto (Bld) [#/Vol]on RBC (Bld) [#/Vol] Erythrocytes [#/volume] in Blood by Automated count Low 4.70-6.10 [facility] Serum or plasma albumin/glob ulin mass ratioon 08-25-2024 Albumin/Globulin [Mass ratio] Serum or plasma albumin/globulin mass ratio [facility] Serum or plasma anion gap de terminationon 08-25-2024 Anion gap [Moles/Vol] Serum or plasma an ion gap determination [facility] Basophils Auto (Bld) [#/Vol] on 08-24-2024 Basophils (Bld) [#/Vol] Automated basoph il count 0.0-0.1 [facility] Basophils/100 WBC Auto (Bld) on 08-24-2024 Basophils/100 WBC (Bld) Automated basophil % Low 0. 2-2.0 [facility] Eosinophils/100 WBC Auto (Bl d)on 08-24-2024 Eosinophils/100 WBC (Bld) Automated eosinophil % Low 0.9-7.0 [facility] Erythrocyte distribution wid th Auto (RBC) [Ratio]on 08-24-2024 Erythrocyte distribution width (RBC) [Ratio] Erythrocyte distribution width [Ratio] by Automated count 11.0-15.0 [facility] Estimated glomerular filtrat ion rate (GFR) non- Americanon 08-24-2024 GFR/1.73 sq M.predicted among non-blacks MDRD (S/P/Bld) [Vol rate/Area] Estimated glomerular filtration rate (GFR) non- >=60 mL/min/1.73 m 2 [facility] Globulin Calc (S) [Mass/Vol] on 08-24-2024 Globulin (S) [Mass/Vol] Serum globulin measurement by calculation (mass/volume) [facility] Hematocrit Auto (Bld) [Volum e fraction]on 08-24-2024 Hematocrit (Bld) [Volume fraction] Hematocrit [Volume Fraction] of Blood by Automated count Low 42.0-54.0 [facility] Hemoglobin [Mass/volume] in Bloodon 08-24-2024 Hemoglobin (Bld) [Mass/Vol] Hemoglobin [Mass/volume] in Blood Low 14.0-18.0 [facility] Laboratory - Chemistry and C hemistry - challengeon 08-24-2024 Albumin [Mass/Vol] 3.1 g/dL Low 3.4-5.0 [facility] ALP [Catalytic activity/Vol] 50 U/L 46-116 [facility] ALT [Catalytic activity/Vol] 36 U/L 16-63 [facility] AST [Catalytic activity/Vol] 23 U/L 15-37 [facility] Bilirubin [Mass/Vol] 0.6 mg/dL 0.2-1.0 [facility] Calcium [Mass/Vol] 9.5 mg/dL 8.5-10.1 [facility] Chloride [Moles/Vol] 98 mmol/L 98-107 [facility] CO2 [Moles/Vol] 25.1 mmol/L 21.0-32.0 [facility] Creatinine [Mass/Vol] 1.09 mg/dL 0.70-1.30 [facility] GFR/1.73 sq M.predicted MDRD (S/P/Bld) [Vol rate/Area] mL/min/{1.73_m2} >=60 mL/min/1.73 m 2 [facility] Glucose [Mass/Vol] 103 mg/dL 74-106 [facility] Natriuretic peptide B (Bld) [Mass/Vol] 1396.0 pg/mL Critically high <=900.0 [facility] Comment on above: RESULTS CALLED TO Potassium [Moles/Vol] 3.3 mmol/L Low 3.5-5.1 [facility] Protein [Mass/Vol] 6.5 g/dL 6.4-8.2 [facility] Sodium [Moles/Vol] 133 mmol/L Low 136-145 [facility] Urea nitrogen [Mass/Vol] 14.0 mg/dL 7.0-18.0 [facility] Urea nitrogen/Creatinine [Mass ratio] 12.8 mg/mg [facility] Laboratory - Hematology and Cell countson 08-24-2024 Immature granulocytes/100 WBC (Bld) 0.4 % 0.0-0.5 [facility] Leukocytes [#/volume] correc evelyne for nucleated erythrocytes in Blood by Automated counon 08-24-2024 WBC corrected for nucl RBC Auto (Bld) [#/Vol] Leukocytes [#/volume] corrected for nucleated erythrocytes in Blood by Automated coun 4.0-11.0 [facility] Lymphocytes Auto (Bld) [#/Vo l]on 08-24-2024 Lymphocytes (Bld) [#/Vol] Lymphocytes [#/volume] in Blood by Automated count Low 1.2-3.8 [facility] Lymphocytes/100 WBC Auto (Bl d)on 08-24-2024 Lymphocytes/100 WBC (Bld) Lymphocytes/100 leukocytes in Blood by Automated count Low 20.5-60.0 [facility] MCH Auto (RBC) [Entitic mass ]on 08-24-2024 MCH (RBC) [Entitic mass] MCH [Entitic ma ss] by Automated count 25.9-34.0 [facility] MCHC Auto (RBC) [Mass/Vol]on 08-24-2024 MCHC (RBC) [Mass/Vol] MCHC [Mass/volume] by Automated count 29.9-35.2 [facility] MCV Auto (RBC) [Entitic vol] on 08-24-2024 MCV (RBC) [Entitic vol] MCV [Entitic vol ume] by Automated count High 80.0-94.0 [facility] Monocytes Auto (Bld) [#/Vol] on 08-24-2024 Monocytes (Bld) [#/Vol] Automated blood monocyte count 0.3-0.8 [facility] Monocytes/100 WBC Auto (Bld) on 08-24-2024 Monocytes/100 WBC (Bld) Automated monocyte % 1. 7-12.0 [facility] Neutrophils Auto (Bld) [#/Vo l]on 08-24-2024 Neutrophils (Bld) [#/Vol] Neutrophils [#/volume] in Blood by Automated count High 1.4-6.5 [facility] Neutrophils/100 WBC Auto (Bl d)on 08-24-2024 Neutrophils/100 WBC (Bld) Automated neutrophil % High 43.0-75.0 [facility] No Panel Informationon 08-24 Eosinophils # (Auto) 0.0 10 3/uL 0.0-0.7 [facility] Immature Granulocyte # (Auto) 0.04 10 3/uL High 0.00-0.03 [facility] Platelet mean volume Auto (B ld) [Entitic vol]on 08-24-2024 Platelet mean volume (Bld) [Entitic vol] Platelet mean volume [Entitic volume] in Blood by Automated count Low 9.5-13.5 [facility] Platelets Auto (Bld) [#/Vol] on 08-24-2024 Platelets (Bld) [#/Vol] Platelets [#/vol ume] in Blood by Automated count 150-450 [facility] RBC Auto (Bld) [#/Vol]on RBC (Bld) [#/Vol] Erythrocytes [#/volume] in Blood by Automated count Low 4.70-6.10 [facility] Serum or plasma albumin/glob ulin mass ratioon 08-24-2024 Albumin/Globulin [Mass ratio] Serum or plasma albumin/globulin mass ratio [facility] Serum or plasma anion gap de terminationon 08-24-2024 Anion gap [Moles/Vol] Serum or plasma an ion gap determination [facility] Basophils/100 WBC Manual cnt (Bld)on 08-23-2024 Basophils/100 WBC (Bld) Basophils/100 leukocytes in Blood by Manual count Low 0.2-2.0 [facility] CNPNon 08-23-2024 JULIETHN Telephone (ENSSELMA) BANG SHARMA ([id number]) 1950 M Date Time Provider Department 08/23/24 [...] and taking 100mg's every other day. - losartan-hydrochloroth iazide (HYZAAR) 100-25 mg per tablet Take 1 [...] Status:Closed by MICHELLE ALMAGUER on 08/23/24 Normal [facility] Eosinophils/100 WBC Manual c nt (Bld)on 08-23-2024 Eosinophils/100 WBC (Bld) Eosinophils/100 leukocytes in Blood by Manual count Low 0.9-7.0 [facility] Estimated glomerular filtrat ion rate (GFR) non- Americanon 08-23-2024 GFR/1.73 sq M.predicted among non-blacks MDRD (S/P/Bld) [Vol rate/Area] Estimated glomerular filtration rate (GFR) non- >=60 mL/min/1.73 m 2 [facility] Globulin Calc (S) [Mass/Vol] on 08-23-2024 Globulin (S) [Mass/Vol] Serum globulin measurement by calculation (mass/volume) [facility] INR in Platelet poor plasma by Coagulation assayon 08-23-2024 INR Coag (PPP) [Relative time] INR in Platelet poor plasma by Coagulation assay [facility] Comment on above: DESIRED INR:2.0-3.0 CONDITIONS NOT LISTED BELOW2.5-3.5 FOR PROSTHETIC HEART VALVE REPLACEMENT2.5-3.5 RECURRENT THROMBOSIS Laboratory - Chemistry and C hemistry - challengeon 08-23-2024 Albumin [Mass/Vol] 3.8 g/dL 3.4-5.0 [facility] ALP [Catalytic activity/Vol] 64 U/L 46-116 [facility] ALT [Catalytic activity/Vol] 41 U/L 16-63 [facility] AST [Catalytic activity/Vol] 17 U/L 15-37 [facility] Bilirubin [Mass/Vol] 0.7 mg/dL 0.2-1.0 [facility] Calcium [Mass/Vol] 9.7 mg/dL 8.5-10.1 [facility] Chloride [Moles/Vol] 98 mmol/L 98-107 [facility] CO2 [Moles/Vol] 26.1 mmol/L 21.0-32.0 [facility] Creatinine [Mass/Vol] 1.19 mg/dL 0.70-1.30 [facility] GFR/1.73 sq M.predicted MDRD (S/P/Bld) [Vol rate/Area] mL/min/{1.73_m2} >=60 mL/min/1.73 m 2 [facility] Glucose [Mass/Vol] 130 mg/dL High 74-106 [facility] Lactate [Moles/Vol] 1.0 mmol/L 0.4-2.0 [facility] Natriuretic peptide B (Bld) [Mass/Vol] 1038.0 pg/mL High <=900.0 [facility] Potassium [Moles/Vol] 3.6 mmol/L 3.5-5.1 [facility] Protein [Mass/Vol] 7.3 g/dL 6.4-8.2 [facility] Sodium [Moles/Vol] 131 mmol/L Low 136-145 [facility] Urea nitrogen [Mass/Vol] 13.0 mg/dL 7.0-18.0 [facility] Urea nitrogen/Creatinine [Mass ratio] 10.9 mg/mg [facility] Laboratory - Hematology and Cell countson 08-23-2024 Lymphocytes/100 WBC (Bld) 4.0 % Low 20.5-60.0 [facility] Monocytes/100 WBC (Bld) 6.0 % 1.7-12.0 F [facility] Laboratory - Microbiology an d Antimicrobial susceptibilityon 08-23-2024 SARS-CoV-2 (COVID-19) RNA ELLIOT+probe Ql (Unsp spec) Negative NEGATIVE [facility] Comment on above: This test has not [...] Absolute Basophils (Manual) 0.00 10 3/uL 0.00-0.10 [facility] Eosinophils # (Manual) 0.00 10 3/uL 0.00-0.70 [facility] Lymphocytes # (Manual) 0.52 10 3/uL Low 1.20-3.80 [facility] Monocytes # (Manual) 0.79 10 3/uL 0.30-0.80 [facility] Segmented Neutrophils # (Manual) 11.88 10 3/uL High 1.4-6.5 [facility] Troponin I High Sensitivity 33.4 pg/mL 4.0-76.1 [facility] Comment on above: CUT-OFF POINTS HAVE BEEN [...] INFORMATION. Bedside Influenza Type A Antigen Negative [facility] Comment on above: Negative for Flu A p rotein antigen. Infection due to Flu Acannot be ruled out. Flu A antigen in the sample may bebelow the detection limit of the test. Bedside Influenza Type B Antigen Negative [facility] Comment on above: Negative for Flu B p rotein antigen. Infection due to Flu Bcannot be ruled out. Flu B antigen in the sample may bebelow the detection limit of the test. Prothrombin time (PT)on PT Coag (PPP) [Time] Prothrombin time (PT) High 9.0- 11.6 [facility] Segmented neutrophils/100 WB C Manual cnt (Bld)on 08-23-2024 Segmented neutrophils/100 WBC (Bld) Manual blood segmented neutrophils/100 leukocytes High 43.0-75.0 [facility] Serum or plasma albumin/glob ulin mass ratioon 08-23-2024 Albumin/Globulin [Mass ratio] Serum or plasma albumin/globulin mass ratio [facility] Serum or plasma anion gap de terminationon 08-23-2024 Anion gap [Moles/Vol] Serum or plasma an ion gap determination [facility] CNPNon 08-18-2024 CNPN Telephone (ENDOLN) ZACHARYBANG Sow ([id number]) 1950 M Date Time Provider Department 08/18/24 HERBER DONALD ENDOLN During your visit today, we recorded the following information about you: Marina Mccracken MA 08/18/2024 10:39 AM Signed A form has been received from [facility] for DXA Bone Densitometry Report. Sent to [...] Assessed Reason for Visit: Results [95] Cmt: [facility] - DXA scan Prescriptions as of 08/18/2024 [...] and taking 100mg's every other day. - losartan-hydrochloroth iazide (HYZAAR) 100-25 mg per tablet Take 1 [...] Encounter Status:Closed by HER[facility] Telephone (JOLYNN) BANG SHARMA ([id number]) 1950 M Date Time Provider Department 08/17/24 GENEVA BUTLER During your visit today, we recorded the following information about you: Edd Sosa 08/17/2024 4:00 PM Signed 08/17/2024 INTAKE PENDING-[employer] [facility] SENT TO CONFIRM APPT. AND COMPLETE INTAKE QUESTIONS-NEED PARTIAL LABS, URINE, DXA, AND MIBI-- CALLED THE LAB TO POSSIBLY ADD ON IONIZED CALCIUM AND VIT D1 25. ENDOCRINE SURGERY PATIENT WORKSHEET Initial Call Date: August 17, 2024 Reason for Consult/ Referral: Hyperparathyroid PATIENT DEMOGRAPHICS Name: Bang Sharma CCF#: [id number] : 1950 AGE: [age] year old Contact Numbers: Home: (home) Work: There is no work phone number on file. PATIENT PHYSICIAN INFORMATION Referring Doctor: Address: Phone: Radio Communications Mechanician: Address: Phone: PCP: Alvin Lo ([facility]) [address] [place] [address] PAST TREATMENT Office notes: SEE [facility] Medications: NONE THAT APPLY Pre-Visit Testing Latest [...] pg/mL 106 (H) Imaging Reports: SEE [facility] CD of Images: [facility] FNA: no FNA Slides: N/A Has the [...] Consult [173] Cmt: FACE SHEET Primary Visit Diagnosis:Hyperparathy roidism (HCC) [E21.3] Order(s):CALCIUM, IONIZED [SQICA] Order #: [id number] FUTURE VITAMIN D1 25-DIHYDR [[id number]] Order #: [id number] FUTURE CALCIUM, 24 HR URINE [SQUCALCD] Order #: [id number]. #:[id number] CREATININE, 24 HOUR URINE [SQUCRD] Order #: [id number]. #:[id number] DXA-AXIAL SKELETON [[id number]] Order #: [id number] FUTURE DXA-FOREARM SKELETON [[id number]] Order #: [id number] FUTURE Prescriptions as of 08/17/2024 - meloxicam [...] and taking 100mg's every other day. - losartan-hydrochloroth iazide (HYZAAR) 100-25 mg per tablet Take 1 [...] Status:Closed by EDD SOSA on 08/17/24 Normal [facility] 1,25-dihydroxyvitamin D3 [Ma ss/Vol]on 08-16-2024 VIT D1,25 DIHYDROXY 45.7 pg/mL Normal 19.9-79.3 [facility] Comment on above: Order Comment: Speci men Type: BLOOD SPECIMENOrdering Facility: [facility] Address: [address] [place] [address] Performed By: #### 1 649-3, 1988-06 ####[facility] [id number] [address] STATES OF [facility] 25([place])D3 [facility]-ncon 2024 25-hydroxyvitamin D3 [Mass/Vol] 32.7 ng/mL Normal 31.0-80.0 [facility] Comment on above: Order Comment: [place] men Type: BLOOD SPECIMENOrdering Facility: [facility] Address: [address] [place] [address] Result Comment: Clas sification of 25 [place] Vitamin D status: Deficiency/Insufficiency: < or = 30 ng/ml. Sufficiency/Optimal Levels: 31-80 ng/mL Toxicity: > 100 ng/mL. Test performed by chemiluminescent immunoassay. Performed By: #### 1 649-3, 1988-06 ####[facility] [id number] [address] OF [place] CNOVon 08-16-2024 CNOV Office Visit (ENDOLN ) BANG SHARMA ([id number]) 1950 M Date Time Provider Department 08/16/24 3:20 PM HERBER DONALD During your visit today, we recorded the [...] twice daily. , Disp: , Rfl: 3 losartan-hydrochloroth iazide (HYZAAR) 100-25 mg per tablet, Take 1 [...] get records of recent DXA scan at [facility] - RENAL FUNCTION PANEL; Future - VITAMIN [...] Reviewed: 08/16/2024 (more content not included)... Normal [facility] - Chemistry and C hemistry - challengeon 08-16-2024 Albumin [Mass/Vol] 4.5 g/dL 3.9-4.9 [facility] Calcium [Mass/Vol] 11.2 mg/dL High 8.5-10.2 [facility] Chloride [Moles/Vol] 107 mmol/L 98-107 [facility] CO2 [Moles/Vol] 23 mmol/L 22-30 [facility] Creatinine [Mass/Vol] 1.55 mg/dL High 0.73-1.22 [facility] Glucose [Mass/Vol] 89 mg/dL 74-99 [facility] Comment on above: The [place] Diabete s Association (ADA) provides guidance for [...] Standards of Medical Care in Diabetes 2016, [place] Diabetes Association. Diabetes Care. 2016.39(Suppl 1). Potassium [Moles/Vol] 4.3 mmol/L 3.7-5.1 [facility] Sodium [Moles/Vol] 143 mmol/L 136-144 [facility] Urea nitrogen [Mass/Vol] 21 mg/dL 01-11 [facility] No Panel Informationon 08-16 25-Hydroxy Vitamin D Total 32.7 ng/mL 31.0-80.0 [facility] Comment on above: Classification of 25 [place] Vitamin D status: Deficiency/Insufficiency: < or = 30 ng/ml.Sufficiency/Optimal Levels: 31-80 ng/mLToxicity: > 100 ng/mL. Test performed by chemiluminescent immunoassay. Estimated GFR (CKD-EPI) 47 mL/min/1.73m??? Low >=60 [facility] Comment on above: Estimated Glomerular Filtration Rate [...] GFR. Parathyroid Hormone (Intact) 106 pg/mL High [facility] Phosphorus Level 2.2 mg/dL Low 2.7-4.8 [facility] PTH-Intact SerPl-mCncon 07-20 Parathyrin.intact [Mass/Vol] 106 pg/mL High 65 [facility] Comment on above: Order Comment: Speci men Type: BLOOD SPECIMENOrdering Facility: [facility] Address: [address] [place] [id number] Performed By: #### 2 731-8, 57422-2 ####[facility] [id number] [address] [address] [place] Renal function 2000 panelon 08-16-2024 Albumin [Mass/Vol] 4.5 g/dL Normal 3.9-4.9 [facility] Comment on above: Order Comment: Speci men Type: BLOOD SPECIMENOrdering Facility: [facility] Address: [address] [place] [address] Performed By: #### 2 731-8, 46952-1 ####[facility] [id number] [place] [address] [place] Anion gap [Moles/Vol] 13 mmol/L Normal 8-15 [facility] Comment on above: Order Comment: Speci men Type: BLOOD SPECIMENOrdering Facility: [facility] Address: [address] [place] [address] Performed By: #### 2 731-8, 34078-5 ####[facility] [id number] [place] [address] [place] Calcium [Mass/Vol] 11.2 mg/dL High 8.5-10.2 [facility] Comment on above: Order Comment: Speci men Type: BLOOD SPECIMENOrdering Facility: [facility] Address: [address] [place], [place] [address] Performed By: #### 2 731-8, 41794-9 ####[facility] [id number] [address] [address] [place] Chloride [Moles/Vol] 107 mmol/L Normal 98-107 [facility] Comment on above: Order Comment: Speci men Type: BLOOD SPECIMENOrdering Facility: [facility] Address: [address] [place], [place] [address] Performed By: #### 2 731-8, 27034-5 ####[facility] [id number] [address] [address] [place] CO2 [Moles/Vol] 23 mmol/L Normal 22-30 [facility] Comment on above: Order Comment: Speci men Type: BLOOD SPECIMENOrdering Facility: [facility] Address: [address] [place] [address] Performed By: #### 2 731-8, 30444-7 ####[facility] [id number] [address] [address] [place] Creatinine [Mass/Vol] 1.55 mg/dL High 0.73-1.22 [facility] Comment on above: Order Comment: Speci men Type: BLOOD SPECIMENOrdering Facility: [facility] Address: [address] [place] [address] Performed By: #### 2 731-8, 80501-0 ####[facility] [id number] [place] [address] [place] Creatinine and Glomerular filtration rate.predicted panel (S/P/Bld) 47 mL/min/1.73m??? Low >=60 [facility] Comment on above: Order Comment: Speci men Type: BLOOD SPECIMENOrdering Facility: [facility] Address: [address] [place] [address] Result Comment: Lenora mated Glomerular Filtration Rate [...] actual GFR. Performed By: #### 2 731-8, 48011-2 ####[facility] [id number] [address] [address] [place] Glucose [Mass/Vol] 89 mg/dL Normal 74-99 [facility] Comment on above: Order Comment: Juana ceron Type: BLOOD SPECIMENOrdering Facility: [facility] Address: [address] [place] [address] Result Comment: The [place] Diabetes Association (ADA) provides guidance for cutoff [...] Standards of Medical Care in Diabetes 2016, [place] Diabetes Association. Diabetes Care. 2016.39(Suppl 1). Performed By: #### 2 731-8, 60291-7 ####[facility] [id number] [place] [address] [place] Phosphate [Mass/Vol] 2.2 mg/dL Low 2.7-4.8 [facility] Comment on above: Order Comment: Juana ceron Type: BLOOD SPECIMENOrdering Facility: [facility] Address: [address] [place] [address] Performed By: #### 2 731-8, 41677-3 ####[facility] [id number] [place] [address] [place] Potassium [Moles/Vol] 4.3 mmol/L Normal 3.7-5.1 [facility] Comment on above: Order Comment: Juana ceron Type: BLOOD SPECIMENOrdering Facility: [facility] Address: [address] [place] [id number] Performed By: #### 2 731-8, 58024-8 ####[facility] [id number] [address] [address] [place] Sodium [Moles/Vol] 143 mmol/L Normal 136-144 [facility] Comment on above: Order Comment: Speci men Type: BLOOD SPECIMENOrdering Facility: [facility] Address: [address] [place] [address] Performed By: #### 2 731-8, 74861-5 ####[facility] [id number] [place] [id number] [place] Urea nitrogen [Mass/Vol] 21 mg/dL Normal 9-24 [facility] Comment on above: Order Comment: Speci men Type: BLOOD SPECIMENOrdering Facility: [facility] Address: [address] [place] [address] Performed By: #### 2 731-8, 86183-2 ####[facility] [id number] [place] [id number] [place] Serum or plasma anion gap de terminationon 08-16-2024 Anion gap [Moles/Vol] Serum or plasma an ion gap determination 8-15 [facility] Serum or plasma calcitriol m easurement (mass/volume)on 08-16-2024 1,25-dihydroxyvitamin D3 [Mass/Vol] Serum or plasma calcitriol measurement (mass/volume) 19.9-79.3 [facility] Office Visiton 07-08-2024 Follow-up visit [id number] Lucinda Sharma 1950 M Date Provider Department Center 07/08/2024 [id number], ADAM [facility] Family History Problem Relation Age of Onset Coronary artery disease Other Hypertension Other Family Status - Relation Status Age at Other Level of Service:95[address] [place] OFFICE/OUTPATIENT ESTABLISHED LOW MDM 20 MIN Normal [facility] Estimated glomerular filtrat ion rate (GFR) non- Americanon 07-07-2024 GFR/1.73 sq M.predicted among non-blacks MDRD (S/P/Bld) [Vol rate/Area] Estimated glomerular filtration rate (GFR) non- >=60 mL/min/1.73 m 2 [facility] Laboratory - Chemistry and C hemistry - challengeon 07-07-2024 Calcium [Mass/Vol] 10.5 mg/dL High 8.5-10.1 [facility] Chloride [Moles/Vol] 106 mmol/L 98-107 [facility] CO2 [Moles/Vol] 29.4 mmol/L 21.0-32.0 [facility] Creatinine [Mass/Vol] 1.13 mg/dL 0.70-1.30 [facility] GFR/1.73 sq M.predicted MDRD (S/P/Bld) [Vol rate/Area] mL/min/{1.73_m2} >=60 mL/min/1.73 m 2 [facility] Glucose [Mass/Vol] 105 mg/dL 74-106 [facility] Potassium [Moles/Vol] 4.1 mmol/L 3.5-5.1 [facility] Sodium [Moles/Vol] 142 mmol/L 136-145 [facility] Urea nitrogen [Mass/Vol] 21.0 mg/dL High 7.0-18.0 [facility] Urea nitrogen/Creatinine [Mass ratio] 18.6 mg/mg [facility] No Panel Informationon 07-07 25-Hydroxy Vitamin D Total 36.6 ng/mL [facility] Comment on above: <20 ng/mL Vit D defi cient20-<30 ng/mL Vit D nlkavdgprvni08-386 ng/mL Vit D sufficient>100 ng/mL Potential Toxicity Parathyroid Hormone (Intact) 91 pg/mL Abnormal 15-65 [facility] Comment on above: Performed at: [facility] [employer] [address] [id number] Director: Shahab Rodney PhD, Phone: [phone] Serum or plasma anion gap de terminationon 07-07-2024 Anion gap [Moles/Vol] Serum or plasma an ion gap determination [facility] Office Visiton 06-14-2024 Follow-up visit [id number] Lucinda Sharma 1950 M Date Provider Department Center 06/14/2024 ALPESH MARQUE[facility] Family History Problem Relation Age of Onset Coronary artery disease Other Hypertension Other Family Status - Relation Status Age at Other Level of Service:46721 [place] OFFICE/OUTPATIENT ESTABLISHED LOW MDM 20 MIN Normal [facility] ALL THYROID STIM HORMONEon 1 06-08-2023 TSH Qn 0.963 m[IU]/L [facility] Albumin [Mass/volume] in Ser um or Plasmaon 04-07-2024 Albumin [Mass/Vol] Albumin [Mass/volume ] in Serum or Plasma 2.9-4.4 [facility] Estimated glomerular filtrat ion rate (GFR) non- Americanon 04-07-2024 GFR/1.73 sq M.predicted among non-blacks MDRD (S/P/Bld) [Vol rate/Area] Estimated glomerular filtration rate (GFR) non- >=60 mL/min/1.73 m 2 [facility] Laboratory - Chemistry and C hemistry - challengeon 04-07-2024 Calcium [Mass/Vol] 10.0 mg/dL 8.5-10.1 [facility] Chloride [Moles/Vol] 107 mmol/L 98-107 [facility] CO2 [Moles/Vol] 29.3 mmol/L 21.0-32.0 [facility] Cobalamin (Vitamin B12) [Mass/Vol] 748 pg/mL 232-1245 [facility] Comment on above: Performed at: [facility] [address] [id number] Director: Shahab Rodney PhD, Phone: [phone] Creatinine [Mass/Vol] 0.90 mg/dL 0.70-1.30 [facility] GFR/1.73 sq M.predicted MDRD (S/P/Bld) [Vol rate/Area] mL/min/{1.73_m2} >=60 mL/min/1.73 m 2 [facility] Glucose [Mass/Vol] 99 mg/dL 74-106 [facility] Potassium [Moles/Vol] 3.7 mmol/L 3.5-5.1 [facility] Sodium [Moles/Vol] 141 mmol/L 136-145 [facility] TSH Qn 0.963 m[IU]/L 0.358-3.740 [facility] Urea nitrogen [Mass/Vol] 12.0 mg/dL 7.0-18.0 [facility] Urea nitrogen/Creatinine [Mass ratio] 13.3 mg/mg [facility] Bilirubin Ql (U) Negative NEGATIVE [facility] Glucose (U) [Mass/Vol] Negative NEGATIVE [facility] Ketones Ql (U) Negative NEGATIVE [facility] pH (U) 6.5 [pH] 5.0-9.0 [facility] Specific gravity (U) [Rel density] 1.020 1.005-1.025 [facility] Urobilinogen Qn (U) 0.2 {Andre'U}/dL 0.2-1.0 [facility] Laboratory - Specimen inform ationon 04-07-2024 Appearance (U) CLEAR CLEAR [facility] Color (U) LT. YELLOW YELLOW [facility] Laboratory - Urinalysison Leukocyte esterase Test strip Ql (U) Negative NEGATIVE [facility] Mucus Ql (Urine sed) NONE SEEN NONE SEEN [facility] Nitrite Ql (U) Negative NEGATIVE [facility] Protein Ql (U) Negative NEG/TRACE [facility] No Panel Informationon 04-07 25-Hydroxy Vitamin D Total 18.7 ng/mL [facility] Comment on above: <20 ng/mL Vit D defi cient20-<30 ng/mL Vit D [id number] ng/mL Vit D sufficient>100 ng/mL Potential Toxicity Folate 23.60 ng/mL 8.60-58.90 [facility] Parathyroid Hormone (Intact) 88 pg/mL Abnormal 15-65 [facility] Comment on above: Performed at: [facility] [address] [id number] Director: Shahab Rodney PhD, Phone: [phone] Protein Electrophoresis M-Harry Not Observed g/dL Not Observed [facility] Protein Electrophoresis Note Comment . [facility] Comment on above: Protein electrophore sis scan will follow via computer,mail, or rand cementer delivery.Performed at: [facility] [address] [id number] Director: Shahab Rodney PhD, Phone: [phone] Urine Bacteria NONE SEEN #/HPF NONE SEEN [facility] Urine Occult Blood Negative NEGATIVE [facility] Urine RBC NONE SEEN #/HPF 0-2 [facility] Urine Squamous Epithelial Cells RARE #/LPF NONE/RARE [facility] Urine WBC NONE SEEN #/HPF NONE SEEN [facility] Protein [Mass/volume] in Ser um or Plasmaon 04-07-2024 Protein [Mass/Vol] Protein [Mass/volume ] in Serum or Plasma 6.0-8.5 [facility] Serum globulin measurement ( mass/volume)on 04-07-2024 Globulin (S) [Mass/Vol] Serum globulin measurement (mass/volume) 2.2-3.9 [facility] Serum or plasma albumin/glob ulin mass ratioon 04-07-2024 Albumin/Globulin [Mass ratio] Serum or plasma albumin/globulin mass ratio 0.7-1.7 [facility] Serum or plasma alpha 1 glob ulin measurement by electrophoresis (mass/volume)on 04-07-2024 Alpha 1 globulin Elph [Mass/Vol] Serum or plasma alpha 1 globulin measurement by electrophoresis (mass/volume) 0.0-0.4 [facility] Serum or plasma alpha 2 glob ulin measurement by electrophoresis (mass/volume)on 04-07-2024 Alpha 2 globulin Elph [Mass/Vol] Serum or plasma alpha 2 globulin measurement by electrophoresis (mass/volume) 0.4-1.0 [facility] Serum or plasma anion gap de terminationon 04-07-2024 Anion gap [Moles/Vol] Serum or plasma an ion gap determination [facility] Serum or plasma beta globuli n measurement by electrophoresis (mass/volume)on 04-07-2024 Beta globulin Elph [Mass/Vol] Serum or plasma beta globulin measurement by electrophoresis (mass/volume) 0.7-1.3 [facility] Serum or plasma gamma globul in measurement by electrophoresis (mass/volume)on 04-07-2024 Gamma globulin Elph [Mass/Vol] Serum or plasma gamma globulin measurement by electrophoresis (mass/volume) 0.4-1.8 [facility] Office Visiton 03-15-2024 Follow-up visit [id number] Lucinda Sharma yuko E 1950 M Date Provider Department Center 03/15/2024 Edward-DREA LINO [facility] Family History Problem Relation Age of Onset Coronary artery disease Other Hypertension Other Family Status - Relation Status Age at Other Level of Service:48007 [place] OFFICE/OUTPATIENT ESTABLISHED LOW MDM 20 MIN Reason for Visit and Comments: Follow-up [650638] - 3 month follow up Atrial Fibrillation [80] Normal [facility] Basophils Auto (Bld) [#/Vol] on 03-10-2024 Basophils (Bld) [#/Vol] Automated basoph il count 0.0-0.1 [facility] Basophils/100 WBC Auto (Bld) on 03-10-2024 Basophils/100 WBC (Bld) Automated basophil % 0. 2-2.0 [facility] Cholesterol in LDL Calc [Mas s/Vol]on 03-10-2024 Cholesterol in LDL [Mass/Vol] Cholesterol in LDL [Mass/volume] in Serum or Plasma by calculation [facility] Comment on above: <100 mg/dl [id number] 0-129 mg/dl NEAR OR ABOVE [id number] mg/dl BORDERLINE RARL101-135 mg/dl HIGH>190 mg/dl VERY HIGH Cholesterol in VLDL Calc [Ma ss/Vol]on 03-10-2024 Cholesterol in VLDL [Mass/Vol] Cholesterol in VLDL [Mass/volume] in Serum or Plasma by calculation [facility] Eosinophils/100 WBC Auto (Bl d)on 03-10-2024 Eosinophils/100 WBC (Bld) Automated eosinophil % 0.9-7.0 [facility] Erythrocyte distribution wid th Auto (RBC) [Ratio]on 03-10-2024 Erythrocyte distribution width (RBC) [Ratio] Erythrocyte distribution width [Ratio] by Automated count 11.0-15.0 [facility] Estimated glomerular filtrat ion rate (GFR) non- Americanon 03-10-2024 GFR/1.73 sq M.predicted among non-blacks MDRD (S/P/Bld) [Vol rate/Area] Estimated glomerular filtration rate (GFR) non- >=60 mL/min/1.73 m 2 [facility] Globulin Calc (S) [Mass/Vol] on 03-10-2024 Globulin (S) [Mass/Vol] Serum globulin measurement by calculation (mass/volume) [facility] Hematocrit Auto (Bld) [Volum e fraction]on 03-10-2024 Hematocrit (Bld) [Volume fraction] Hematocrit [Volume Fraction] of Blood by Automated count 42.0-54.0 [facility] Hemoglobin [Mass/volume] in Bloodon 03-10-2024 Hemoglobin (Bld) [Mass/Vol] Hemoglobin [Mass/volume] in Blood 14.0-18.0 [facility] Laboratory - Chemistry and C hemistry - challengeon 03-10-2024 Albumin [Mass/Vol] 3.5 g/dL 3.4-5.0 [facility] ALP [Catalytic activity/Vol] 58 U/L 46-116 [facility] ALT [Catalytic activity/Vol] 32 U/L 16-63 [facility] AST [Catalytic activity/Vol] 16 U/L 15-37 [facility] Bilirubin [Mass/Vol] 0.8 mg/dL 0.2-1.0 [facility] Calcium [Mass/Vol] 10.4 mg/dL High 8.5-10.1 [facility] Chloride [Moles/Vol] 107 mmol/L 98-107 [facility] Cholesterol [Mass/Vol] 199 mg/dL <=200 [facility] Cholesterol in HDL [Mass/Vol] 53 mg/dL 40-60 [facility] Comment on above: > or =60 mg/dl - LOW CARDIOVASCULAR RISK<40 mg/dl - HIGH CARDIOVASCULAR RISK CO2 [Moles/Vol] 28.7 mmol/L 21.0-32.0 [facility] Creatinine [Mass/Vol] 0.85 mg/dL 0.70-1.30 [facility] GFR/1.73 sq M.predicted MDRD (S/P/Bld) [Vol rate/Area] mL/min/{1.73_m2} >=60 mL/min/1.73 m 2 [facility] Glucose [Mass/Vol] 100 mg/dL 74-106 [facility] Potassium [Moles/Vol] 4.0 mmol/L 3.5-5.1 [facility] Protein [Mass/Vol] 6.8 g/dL 6.4-8.2 [facility] Sodium [Moles/Vol] 143 mmol/L 136-145 [facility] Triglyceride [Mass/Vol] 100 mg/dL <=150 F [facility] TSH Qn 0.915 m[IU]/L 0.358-3.740 [facility] Urea nitrogen [Mass/Vol] 15.0 mg/dL 7.0-18.0 [facility] Urea nitrogen/Creatinine [Mass ratio] 17.6 mg/mg [facility] Laboratory - Hematology and Cell countson 03-10-2024 Immature granulocytes/100 WBC (Bld) 0.2 % 0.0-0.5 [facility] Leukocytes [#/volume] correc evelyne for nucleated erythrocytes in Blood by Automated counon 03-10-2024 WBC corrected for nucl RBC Auto (Bld) [#/Vol] Leukocytes [#/volume] corrected for nucleated erythrocytes in Blood by Automated coun 4.0-11.0 [facility] Lymphocytes Auto (Bld) [#/Vo l]on 03-10-2024 Lymphocytes (Bld) [#/Vol] Lymphocytes [#/volume] in Blood by Automated count 1.2-3.8 [facility] Lymphocytes/100 WBC Auto (Bl d)on 03-10-2024 Lymphocytes/100 WBC (Bld) Lymphocytes/100 leukocytes in Blood by Automated count 20.5-60.0 [facility] MCH Auto (RBC) [Entitic mass ]on 03-10-2024 MCH (RBC) [Entitic mass] MCH [Entitic ma ss] by Automated count 25.9-34.0 [facility] MCHC Auto (RBC) [Mass/Vol]on 03-10-2024 MCHC (RBC) [Mass/Vol] MCHC [Mass/volume] by Automated count 29.9-35.2 [facility] MCV Auto (RBC) [Entitic vol] on 03-10-2024 MCV (RBC) [Entitic vol] MCV [Entitic vol ume] by Automated count High 80.0-94.0 [facility] Monocytes Auto (Bld) [#/Vol] on 03-10-2024 Monocytes (Bld) [#/Vol] Automated blood monocyte count 0.3-0.8 [facility] Monocytes/100 WBC Auto (Bld) on 03-10-2024 Monocytes/100 WBC (Bld) Automated monocyte % 1. 7-12.0 [facility] Neutrophils Auto (Bld) [#/Vo l]on 03-10-2024 Neutrophils (Bld) [#/Vol] Neutrophils [#/volume] in Blood by Automated count 1.4-6.5 [facility] Neutrophils/100 WBC Auto (Bl d)on 03-10-2024 Neutrophils/100 WBC (Bld) Automated neutrophil % 43.0-75.0 [facility] No Panel Informationon 03-10 Eosinophils # (Auto) 0.2 10 3/uL 0.0-0.7 [facility] Immature Granulocyte # (Auto) 0.01 10 3/uL 0.00-0.03 [facility] Prostate Specific Antigen Screen 1.32 ng/mL <=4.00 [facility] Platelet mean volume Auto (B ld) [Entitic vol]on 03-10-2024 Platelet mean volume (Bld) [Entitic vol] Platelet mean volume [Entitic volume] in Blood by Automated count Low 9.5-13.5 [facility] Platelets Auto (Bld) [#/Vol] on 03-10-2024 Platelets (Bld) [#/Vol] Platelets [#/vol ume] in Blood by Automated count 150-450 [facility] RBC Auto (Bld) [#/Vol]on RBC (Bld) [#/Vol] Erythrocytes [#/volume] in Blood by Automated count Low 4.70-6.10 [facility] Serum or plasma albumin/glob ulin mass ratioon 03-10-2024 Albumin/Globulin [Mass ratio] Serum or plasma albumin/globulin mass ratio [facility] Serum or plasma anion gap de terminationon 03-10-2024 Anion gap [Moles/Vol] Serum or plasma an ion gap determination [facility] Serum or plasma total choles terol/high density lipoprotein (HDL) cholesterol mass ranjit 03-10-2024 Cholesterol.total/Choles terol in HDL [Mass ratio] Serum or plasma total cholesterol/high density lipoprotein (HDL) cholesterol mass rat [facility] Comment on above: 3.3 - 4.4 LOW RISK4. 4 - 7.1 AVERAGE RISK7.1 - 11.0 MODERATE RISK>11.0 HIGH RISK EMG 2 Extremitieson 02-24-20 EMG/NCS BLE Severe sensory-motor polyneuropathy. [facility] NVC 9-10 Nerveson 02-24-2024 EMG/NCS BLE Severe sensory-motor polyneuropathy. [facility] HPon 12-09-2023 [facility] Electrophysiology Consult Note Reason [...] This was followed up with [facility] with [facility] protocol which was negative for inducible [...] CVL report IMPRESSION: Successful direct-current cardioversion with anabaptist of sinus rhythm from atrial fibrillation with no immediate complication. 03/22/12: EPS EP study by Dr. Carmen Flores on 03/22/2012 for evaluation of wide-complex tachycardia in the setting of normal ejection fraction revealed normal HV interval but no evidence of any AH jump suggestive of dual AV node physiology and no tachycardia was induced. This was followed up with [facility] with [facility] protocol which was negative for inducible [...] CARDIAC CATHETERIZATION (more content not included)... Normal [facility] NURSNOTEon 12-09-2023 NURSNOTE RN educated pt on d/ c instructions. RN encouraged pt to voice any questions or concerns. Pt verbalizes no questions or concerns at this time. Pt walked off of unit with all of belongings. [facility] 36on 12-02-2023 36 Regarding echo resul t from 11/24/2023: NILA Avitia MA; Alpesh Davis MD Severe biatrial enlargement LV systolic function low end of normal 50-55% RV normal size and function, normal rt sided pressures- no fluid overload LM on patient's VM. Normal [facility] Basophils Auto (Bld) [#/Vol] on 12-01-2023 Basophils (Bld) [#/Vol] 0.0 10 3/uL 0.0-0.1 [facility] Basophils/100 WBC Auto (Bld) on 12-01-2023 Basophils/100 WBC (Bld) 0.5 % 0.2-2.0 F [facility] Eosinophils/100 WBC Auto (Bl d)on 12-01-2023 Eosinophils/100 WBC (Bld) 1.1 % 0.9-7.0 [facility] Erythrocyte distribution wid th Auto (RBC) [Ratio]on 12-01-2023 Erythrocyte distribution width (RBC) [Ratio] 12.8 % 11.0-15.0 [facility] Hematocrit Auto (Bld) [Volum e fraction]on 12-01-2023 Hematocrit (Bld) [Volume fraction] 40.8 % Low 42.0-54.0 [facility] Hemoglobin [Mass/volume] in Bloodon 12-01-2023 Hemoglobin (Bld) [Mass/Vol] 13.6 g/dL Low 14.0-18.0 [facility] Laboratory - Hematology and Cell countson 12-01-2023 Immature granulocytes/100 WBC (Bld) 0.3 % 0.0-0.5 [facility] Leukocytes [#/volume] correc evelyne for nucleated erythrocytes in Blood by Automated counon 12-01-2023 WBC corrected for nucl RBC Auto (Bld) [#/Vol] 6.4 10 3/uL 4.0-11.0 [facility] Lymphocytes Auto (Bld) [#/Vo l]on 12-01-2023 Lymphocytes (Bld) [#/Vol] 1.3 10 3/uL 1.2-3.8 [facility] Lymphocytes/100 WBC Auto (Bl d)on 12-01-2023 Lymphocytes/100 WBC (Bld) 20.7 % 20.5-60.0 [facility] MCH Auto (RBC) [Entitic mass ]on 12-01-2023 MCH (RBC) [Entitic mass] 31.7 pg 25.9-34.0 [facility] MCHC Auto (RBC) [Mass/Vol]on 12-01-2023 MCHC (RBC) [Mass/Vol] 33.3 g/dL 29.9-35.2 [facility] MCV Auto (RBC) [Entitic vol] on 12-01-2023 MCV (RBC) [Entitic vol] 95.1 fL High 80.0-94.0 F [facility] Monocytes Auto (Bld) [#/Vol] on 12-01-2023 Monocytes (Bld) [#/Vol] 0.8 10 3/uL 0.3-0.8 [facility] Monocytes/100 WBC Auto (Bld) on 12-01-2023 Monocytes/100 WBC (Bld) 11.8 % 1.7-12.0 F [facility] Neutrophils Auto (Bld) [#/Vo l]on 12-01-2023 Neutrophils (Bld) [#/Vol] 4.2 10 3/uL 1.4-6.5 [facility] Neutrophils/100 WBC Auto (Bl d)on 12-01-2023 Neutrophils/100 WBC (Bld) 65.6 % 43.0-75.0 [facility] No Panel Informationon 11-30 Eosinophils # (Auto) 0.1 10 3/uL 0.0-0.7 [facility] Immature Granulocyte # (Auto) 0.02 10 3/uL 0.00-0.03 [facility] Platelet mean volume Auto (B ld) [Entitic vol]on 12-01-2023 Platelet mean volume (Bld) [Entitic vol] 8.9 fL Low 9.5-13.5 [facility] Platelets Auto (Bld) [#/Vol] on 12-01-2023 Platelets (Bld) [#/Vol] 265 10 3/uL 150-450 [facility] RBC Auto (Bld) [#/Vol]on RBC (Bld) [#/Vol] 4.29 10 6/uL Low 4.70-6.10 [facility] CNOVon 01-13-2023 CNOV Office Visit (ORFWHP ) BANG SHARMA ([id number]) 1950 M Date Time Provider Department 01/13/23 2:30 PM HARESH PINEDA ORFWHP During your visit today, we recorded the following information about you: Haresh Pineda MD 01/13/2023 4:19 PM Signed Orthopaedic Surgery Follow-Up Clinic Note Surgery/Date: 08/27/2017 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 (CPT 17504 - 22) Placement of Prophylactic Carbon Fiber Tibial Nail, Right Tibia (CPT 99376) High Speed Ehsan and Adjuvant Treatment with 10% H202 (CPT 72034) Neruolysis and Dissection of Deep Peroneal Nerve (CPT 93366) Right Iliac Crest Marrow Aspiration/[place]ston ( CPT 74768) Diagnosis: Right Tibial Diaphysis Cartilage Lesion with [...] the date of the service which included [id number] patient care, completing clinical documentation, obtaining and/or [...] information added by medical student, resident, nurse, GLUE LINE OPERATOR/PA-C that I have placed my signature directly below I have verified and either instructed them to document in a scribe function or document appropriately in the chart during the patient visit. Haresh Beavers (more content not included)... Normal [facility] FLECAINEon 06-24-2022 FLECAINIDE 0.39 ug/ml Normal 0.20 - 1.00 [facility] Comment on above: Result Comment: Flec ainide reported as flecainide acetate. The reference range also is defined as flecaininde acetate. This test was developed and its performance characteristics determined by [employer]. It has not been cleared or approved by the Food and Drug Administration. Performed By: #### T SH, BMP, LIPID, ALT #### [facility] [address] [place] [address] Dr. Fidel Paige CBC AUTO DIFFon 06-09-2022 BASO # 0.0 103/ul Normal 0.0-0.1 [facility] Comment on above: Performed By: #### C BC #### [facility] [address] [place] [address] Dr. Fidel Paige Basophils/100 WBC (Bld) 0.6 % Normal 0.2-2.0 [facility] Comment on above: Performed By: #### C BC #### [facility] [address] [place] [address] Dr. Fidel Paige EO # 0.1 103/ul Normal 0.0-0.7 [facility] Comment on above: Performed By: #### C BC #### [facility] [address] [place] [address] Dr. Fidel Paige Eosinophils/100 WBC (Bld) 2.8 % Normal 0.9-7.0 [facility] Comment on above: Performed By: #### C BC #### [facility] [address] [place] [address] Dr. Fidel Paige Erythrocyte distribution width (RBC) [Ratio] 12.8 % Normal 11.0-15.0 [facility] Comment on above: Performed By: #### C BC #### [facility] [address] [place] [address] Dr. Fidel Paige Hematocrit (Bld) [Volume fraction] 41.9 % Critically low 42.0-54.0 [facility] Comment on above: Performed By: #### C BC #### [facility] [address] [place] [address] Dr. Fidel Paige Hemoglobin (Bld) [Mass/Vol] 14.1 g/dL Normal 14.0-18.0 [facility] Comment on above: Performed By: #### C BC #### [facility] [address] [place] [address] Dr. Fidel Paige IG # 0.01 10e3/ul Normal 0.00-0.03 [facility] Comment on above: Performed By: #### C BC #### [facility] [address] [place] [address] Dr. Fidel Paige IG % 0.2 % Normal 0.0-0.5 [facility] Comment on above: Performed By: #### C BC #### [facility] [address] [place] [address] Dr. Fidel Paige LYMPH # 1.4 103/ul Normal 1.2-3.8 [facility] Comment on above: Performed By: #### C BC #### [facility] [address] [place] [address] Dr. Fidel Paige Lymphocytes/100 WBC (Bld) 29.2 % Normal 20.5-60.0 [facility] Comment on above: Performed By: #### C BC #### [facility] [address] [place] [address] Dr. Fidel Paige MANUAL DIFF REQ NO Normal [facility] Comment on above: Performed By: #### C BC #### [facility] [address] [place] [address] Dr. Fidel Paige MCH (RBC) [Entitic mass] 31.3 pg Normal 25.9-34.0 [facility] Comment on above: Performed By: #### C BC #### [facility] [address] [place] [address] Dr. Fidel Paige MCHC (RBC) [Mass/Vol] 33.7 g/dL Normal 29.9-35.2 [facility] Comment on above: Performed By: #### C BC #### [facility] [address] [place] [address] Dr. Fidel Paige MCV (RBC) [Entitic vol] 92.9 fL Normal 80.0-94.0 [facility] Comment on above: Performed By: #### C BC #### [facility] [address] [address] [address] Fidel Paige MONO # 0.7 103/ul Normal 0.3-0.8 [facility] Comment on above: Performed By: #### C BC #### [facility] [address] [address] [address] Fidel Paige Monocytes/100 WBC (Bld) 13.4 % Critically high 1.7-12. 0 [facility] Comment on above: Performed By: #### C BC #### [facility] [address] [place] [address] Dr. Fidel Paige NEUT # 2.7 103/ul Normal 1.4-6.5 [facility] Comment on above: Performed By: #### C BC #### [facility] [address] [place] [address] Dr. Fidel Paige Neutrophils/100 WBC (Bld) 53.8 % Normal 43.0-75.0 [facility] Comment on above: Performed By: #### C BC #### [facility] [address] [place] [address] Dr. Fidel Paige Platelet mean volume (Bld) [Entitic vol] 8.7 fL Critically low 9.5-13.5 [facility] Comment on above: Performed By: #### C BC #### [facility] [address] [place] [address] Dr. Fidel Paige PLT 278 103/ul Normal 150-450 [facility] Comment on above: Performed By: #### C BC #### [facility] [address] [place] [address] Dr. Fidel Paige RBC 4.51 106/ul Critically low 4.70-6.10 [facility] Comment on above: Performed By: #### C BC #### [facility] [address] [place] [address] Dr. Fidel Paige WBC 4.9 103/ul Normal 4.0-11.0 [facility] Comment on above: Performed By: #### C BC #### [facility] [address] [place] [address] Dr. Fidel Paige MAGNESIUMon 06-09-2022 Magnesium [Mass/Vol] 2.0 mg/dL Normal 1.8-2.4 [facility] Comment on above: Performed By: #### T SH, MG, BMP #### [facility] [address] [place] [address] Dr. Fidel Paige PROF CHEM 8 (BAS METB)on Anion gap [Moles/Vol] 8.2 mmol/L Normal [facility] Comment on above: Performed By: #### T SH, MG, BMP #### [facility] [address] [place] [address] Dr. Fidel Paige Calcium [Mass/Vol] 10.2 mg/dL Critically high 8.5-10.1 [facility] Comment on above: Performed By: #### T SH, MG, BMP #### [facility] [address] [place] [address] Dr. Fidel Paige Chloride [Moles/Vol] 105 mmol/L Normal 98-107 [facility] Comment on above: Performed By: #### T SH, MG, BMP #### [facility] [address] [place] [address] Dr. Fidel Paige CO2 [Moles/Vol] 29.6 mmol/L Normal 21.0-32.0 [facility] Comment on above: Performed By: #### T SH, MG, BMP #### [facility] [address] [place] [address] Dr. Fidel Paige Creatinine [Mass/Vol] 0.81 mg/dL Normal 0.70-1.30 [facility] Comment on above: Performed By: #### T SH, MG, BMP #### [facility] [address] [place] [address] Dr. Fidel Paige EGFR-AF [place] >60 Normal >=60 [facility] Comment on above: Performed By: #### T SH, MG, BMP #### [facility] [address] [place] [address] Dr. Fidel Paige EGFR-NON AF [place] >60 Normal >=60 [facility] Comment on above: Performed By: #### T SH, MG, BMP #### [facility] [address] [place] [address] Dr. Fidel Paige Glucose [Mass/Vol] 100 mg/dL Normal 74-106 [facility] Comment on above: Performed By: #### T SH, MG, BMP #### [facility] [address] [place] [address] Dr. Fidel Paige Potassium [Moles/Vol] 3.8 mmol/L Normal 3.5-5.1 [facility] Comment on above: Performed By: #### T SH, MG, BMP #### [facility] [address] [place] [address] Dr. Fidel Paige Sodium [Moles/Vol] 139 mmol/L Normal 136-145 [facility] Comment on above: Performed By: #### T SH, MG, BMP #### [facility] [address] [place] [address] Dr. Fidel Paige Urea nitrogen [Mass/Vol] 12.0 mg/dL Normal 7.0-18.0 [facility] Comment on above: Performed By: #### T SH, MG, BMP #### [facility] [address] [place] [address] Dr. Fidel Paige Urea nitrogen/Creatinine [Mass ratio] 14.8 mg/mg Normal [facility] Comment on above: Performed By: #### T SH, MG, BMP #### [facility] [address] [place] [address] Dr. Fidel Paige TSHon 06-09-2022 TSH 0.891 uIU/mL Normal 0.358-3.740 [facility] Comment on above: Performed By: #### T SH, MG, BMP #### [facility] [address] [place] [address] Dr. Fidel Paige CBC AUTO DIFFon 02-07-2022 BASO # 0.0 103/ul Normal 0.0-0.1 [facility] Comment on above: Performed By: #### T SH, BMP, LIPID, ALT #### [facility] [address] [place] [address] Dr. Fidel Paige Basophils/100 WBC (Bld) 0.3 % Normal 0.2-2.0 [facility] Comment on above: Performed By: #### T SH, BMP, LIPID, ALT #### [facility] [address] [place] [address] Dr. Fidel Paige EO # 0.1 103/ul Normal 0.0-0.7 [facility] Comment on above: Performed By: #### T SH, BMP, LIPID, ALT #### [facility] [address] [place] [address] Dr. Fidel Paige Eosinophils/100 WBC (Bld) 2.1 % Normal 0.9-7.0 [facility] Comment on above: Performed By: #### T SH, BMP, LIPID, ALT #### [facility] [address] [place] [address] Dr. Fidel Paige Erythrocyte distribution width (RBC) [Ratio] 13.1 % Normal 11.0-15.0 [facility] Comment on above: Performed By: #### T SH, BMP, LIPID, ALT #### [facility] [address] [place] [address] Dr. Fidel Paige Hematocrit (Bld) [Volume fraction] 45.2 % Normal 42.0-54.0 [facility] Comment on above: Performed By: #### T SH, BMP, LIPID, ALT #### [facility] [address] [place] [address] Dr. Fidel Paige Hemoglobin (Bld) [Mass/Vol] 14.8 g/dL Normal 14.0-18.0 [facility] Comment on above: Performed By: #### T SH, BMP, LIPID, ALT #### [facility] [address] [place] [address] Dr. Fidel Paige IG # 0.02 10e3/ul Normal 0.00-0.03 [facility] Comment on above: Performed By: #### T SH, BMP, LIPID, ALT #### [facility] [address] [place] [address] Dr. Fidel Paige IG % 0.3 % Normal 0.0-0.5 [facility] Comment on above: Performed By: #### T SH, BMP, LIPID, ALT #### [facility] [address] [place] [address] Dr. Fidel Paige LYMPH # 1.4 103/ul Normal 1.2-3.8 [facility] Comment on above: Performed By: #### T SH, BMP, LIPID, ALT #### [facility] [address] [place] [address] Dr. Fidel Paige Lymphocytes/100 WBC (Bld) 23.2 % Normal 20.5-60.0 [facility] Comment on above: Performed By: #### T SH, BMP, LIPID, ALT #### [facility] [address] [place] [address] Dr. Fidel Paige MANUAL DIFF REQ NO Normal [facility] Comment on above: Performed By: #### T SH, BMP, LIPID, ALT #### [facility] [address] [place] [address] Dr. Fidel Paige MCH (RBC) [Entitic mass] 31.6 pg Normal 25.9-34.0 [facility] Comment on above: Performed By: #### T SH, BMP, LIPID, ALT #### [facility] [address] [place] [address] Dr. Fidel Paige MCHC (RBC) [Mass/Vol] 32.7 g/dL Normal 29.9-35.2 [facility] Comment on above: Performed By: #### T SH, BMP, LIPID, ALT #### [facility] [address] [place] [address] Dr. Fidel Paige MCV (RBC) [Entitic vol] 96.6 fL Critically high 80.0-94 .0 [facility] Comment on above: Performed By: #### T SH, BMP, LIPID, ALT #### [facility] [address] [place] [address] Dr. Fidel Paige MONO # 0.7 103/ul Normal 0.3-0.8 [facility] Comment on above: Performed By: #### T SH, BMP, LIPID, ALT #### [facility] [address] [address] [address] Fidel Paige Monocytes/100 WBC (Bld) 11.7 % Normal 1.7-12.0 [facility] Comment on above: Performed By: #### T SH, BMP, LIPID, ALT #### [facility] [address] [place] [address] Dr. Fidel Paige NEUT # 3.6 103/ul Normal 1.4-6.5 [facility] Comment on above: Performed By: #### T SH, BMP, LIPID, ALT #### [facility] [address] [place] [address] Dr. Fidel Paige Neutrophils/100 WBC (Bld) 62.4 % Normal 43.0-75.0 [facility] Comment on above: Performed By: #### T SH, BMP, LIPID, ALT #### [facility] [address] [place] [address] Dr. Fidel Paige Platelet mean volume (Bld) [Entitic vol] 8.8 fL Critically low 9.5-13.5 [facility] Comment on above: Performed By: #### T SH, BMP, LIPID, ALT #### [facility] [address] [place] [address] Dr. Fidel Paige PLT 283 103/ul Normal 150-450 [facility] Comment on above: Performed By: #### T SH, BMP, LIPID, ALT #### [facility] [address] [place] [address] Dr. Fidel Paige RBC 4.68 106/ul Critically low 4.70-6.10 [facility] Comment on above: Performed By: #### T SH, BMP, LIPID, ALT #### [facility] [address] [place] [address] Dr. Fidel Paige WBC 5.8 103/ul Normal 4.0-11.0 [facility] Comment on above: Performed By: #### T SH, BMP, LIPID, ALT #### [facility] [address] [place] [address] Dr. Fdiel Paige LIPID PROFILEon 02-07-2022 CHOL-HDL RATIO NORM SEE BELOW Normal [facility] Comment on above: Result Comment: 3.3 - 4.4 LOW RISK 4.4 - 7.1 AVERAGE RISK 7.1 - 11.0 MODERATE RISK >11.0 HIGH RISK Performed By: #### T SH, BMP, LIPID, ALT #### [facility] [address] [address] [address] Fidel Paige Cholesterol [Mass/Vol] 191 mg/dL Normal <=200 [facility] Comment on above: Performed By: #### T SH, BMP, LIPID, ALT #### [facility] [address] [address] [address] Fidel Paige Cholesterol in HDL [Mass/Vol] 42 mg/dL Normal 40-60 [facility] Comment on above: Performed By: #### T SH, BMP, LIPID, ALT #### [facility] [address] [place] [address] Dr. Fidel Paige Cholesterol in LDL [Mass/Vol] 118.0 mg/dL Normal [facility] Comment on above: Performed By: #### T SH, BMP, LIPID, ALT #### [facility] [address] [address] [address] Fidel Paige Cholesterol.total/Choles terol in HDL [Mass ratio] 4.5 {ratio} Normal [facility] Comment on above: Performed By: #### T SH, BMP, LIPID, ALT #### [facility] [address] [address] [address] Fidel Paige HDL NORMAL > or = 60 mg/dl - LO W CARDIOVASCULAR RISK <40 mg/dl - HIGH CARDIOVASCULAR RISK Normal [facility] Comment on above: Performed By: #### T SH, BMP, LIPID, ALT #### [facility] [address] [place] [address] Dr. Fidel Paige LDL CALC NORMAL SEE BELOW Normal [facility] Comment on above: Result Comment: <100 mg/dl OPTIMAL 100 - 129 mg/dl NEAR OR ABOVE OPTIMAL 130 - 159 mg/dl BORDERLINE HIGH 160 - 189 mg/dl HIGH >190 mg/dl VERY HIGH Performed By: #### T SH, BMP, LIPID, ALT #### [facility] [address] [address] [address] Fidel Paige Triglyceride [Mass/Vol] 155 mg/dL Critically high <=150 [facility] Comment on above: Performed By: #### T SH, BMP, LIPID, ALT #### [facility] [address] [address] [address] Fidel Paige VLDL CALC 31.0 mg/dL Normal [facility] Comment on above: Performed By: #### T SH, BMP, LIPID, ALT #### [facility] [address] [address] [address] Fidel Paige PROF CHEM 8 (BAS METB)on Anion gap [Moles/Vol] 11.0 mmol/L Normal [facility] Comment on above: Performed By: #### T SH, BMP, LIPID, ALT #### [facility] [address] [place] [address] Dr. Fidel Paige Calcium [Mass/Vol] 10.1 mg/dL Normal 8.5-10.1 [facility] Comment on above: Performed By: #### T SH, BMP, LIPID, ALT #### [facility] [address] [place] [address] Dr. Fidel Paige Chloride [Moles/Vol] 105 mmol/L Normal 98-107 [facility] Comment on above: Performed By: #### T SH, BMP, LIPID, ALT #### [facility] [address] [place] [address] Dr. Fidel Paige CO2 [Moles/Vol] 29.0 mmol/L Normal 21.0-32.0 [facility] Comment on above: Performed By: #### T SH, BMP, LIPID, ALT #### [facility] [address] [place] [address] Dr. Fidel Paige Creatinine [Mass/Vol] 0.85 mg/dL Normal 0.70-1.30 [facility] Comment on above: Performed By: #### T SH, BMP, LIPID, ALT #### [facility] [address] [place] [address] Dr. Fidel Paige EGFR-AF PAPUA [place] >60 Normal >=60 [facility] Comment on above: Performed By: #### T SH, BMP, LIPID, ALT #### [facility] [address] [place] [address] Dr. Fidel Paige EGFR-NON AF PAPUA [place] >60 Normal >=60 [facility] Comment on above: Performed By: #### T SH, BMP, LIPID, ALT #### [facility] [address] [place] [address] Dr. Fidel Paige Glucose [Mass/Vol] 101 mg/dL Normal 74-106 [facility] Comment on above: Performed By: #### T SH, BMP, LIPID, ALT #### [facility] [address] [place] [address] Dr. Fidel Paige Potassium [Moles/Vol] 4.0 mmol/L Normal 3.5-5.1 [facility] Comment on above: Performed By: #### T SH, BMP, LIPID, ALT #### [facility] [address] [place] [address] Dr. Fidel Paige Sodium [Moles/Vol] 141 mmol/L Normal 136-145 [facility] Comment on above: Performed By: #### T SH, BMP, LIPID, ALT #### [facility] [address] [place] [address] Dr. Fidel Paige Urea nitrogen [Mass/Vol] 13.0 mg/dL Normal 7.0-18.0 [facility] Comment on above: Performed By: #### T SH, BMP, LIPID, ALT #### [facility] [address] [place] [address] Dr. Fidel Paige Urea nitrogen/Creatinine [Mass ratio] 15.3 mg/mg Normal [facility] Comment on above: Performed By: #### T SH, BMP, LIPID, ALT #### [facility] [address] [place] [address] Dr. Fidel Paige [facility] 02-07-2022 ALT [Catalytic activity/Vol] 26 U/L Normal 16-63 [facility] Comment on above: Performed By: #### T SH, BMP, LIPID, ALT #### [facility] [address] [place], [place] [address] Dr. Fidel Paige [facility] 02-07-2022 TSH 0.856 uIU/mL Normal 0.358-3.740 [facility] Comment on above: Performed By: #### T SH, BMP, LIPID, ALT #### [facility] [address] [place], [place] [address] Dr. Fidel Paige XR CHEST 2V FRONTAL/LATon [facility] US VENOUS DOPPLER L Cristian [...] by: TIFFANY GUPTA Date: 2021-10-10 12:51 Normal [facility] Vital Signs Date Time Vital Sign Value Performing Clinician Facility 12-13-2024 15: Body height 185.42 cm Alvin Ball DO Work Phone: [facility] 12-13-2024 15:040 Body mass index (BMI) [Ratio] 35.9 kg/m2 Alvin Ball DO Work Phone: [facility] 12-13-2024 [id number] Body weight 123.43 kg Alvin Ball DO Work Phone: [facility] 12-13-2024 15:040 Diastolic blood pressure 76 mm[Hg] Alvin Ball DO Work Phone: [facility] 12-13-2024 [id number] Heart rate 71 /min Alvin Ball DO Work Phone: [facility] 12-13-2024 [id number] Respiratory rate 12 /min Alvin Ball DO Work Phone: [facility] 12-13-2024 15:19-0400 Systolic blood pressure 131 mm[Hg] Alvin Ball DO Work Phone: [facility] 11-01-2024 09:07-0400 Body height 188 cm Pacc 6 Work Phone: [facility] 11-01-2024 09:07-0400 Body mass index (BMI) [Ratio] 34.02 kg/m2 Pacc 6 Work Phone: [facility] 11-01-2024 09:07-0400 Body temperature 97.59 [degF] Pacc 6 Work Phone: [facility] 11-01-2024 09:07-0400 Body weight 120.2 kg Pacc 6 Work Phone: [facility] 11-01-2024 09:07-0400 Diastolic blood pressure 79 mm[Hg] Pacc 6 Work Phone: [facility] 11-01-2024 09:07-0400 Heart rate 62 /min Pacc 6 Work Phone: [facility] 11-01-2024 09:07-0400 SaO2% (BldA) [Mass fraction] 96 % Pacc 6 Work Phone: [facility] 11-01-2024 09:07-0400 Systolic blood pressure 145 mm[Hg] Pacc 6 Work Phone: [facility] 09-15-2024 11:53-0400 Body height 185.42 cm [facility] 09-15-2024 11:53-0400 Body mass index (BMI) [Ratio] 35.2 kg/m2 [facility] 09-15-2024 11:53-0400 Body weight 121.22 kg [facility] 09-15-2024 11:53-0400 Diastolic blood pressure 81 mm[Hg] [facility] 09-15-2024 11:53-0400 Diastolic blood pressure 89 mm[Hg] Alvin Ball DO Work Phone: [facility] 09-15-2024 11:53-0400 Heart rate 73 /min [facility] 09-15-2024 11:53-0400 Respiratory rate 12 /min [facility] 09-15-2024 11:53-0400 SaO2% (BldA) [Mass fraction] 95 % [facility] 09-15-2024 11:53-0400 Systolic blood pressure 146 mm[Hg] [facility] 09-15-2024 11:53-0400 Systolic blood pressure 139 mm[Hg] Alvin Lo DO Work Phone: [facility] 09-13-2024 11:05-0400 Body height 189.2 cm Geneva Butler MD Work Phone: [facility] 09-13-2024 11:05-0400 Body mass index (BMI) [Ratio] 34.42 kg/m2 Geneva Butler MD Work Phone: [facility] 09-13-2024 11:05-0400 Body weight 123.2 kg Geneva Butler MD Work Phone: [facility] 09-13-2024 11:05-0400 Diastolic blood pressure 63 mm[Hg] Geneva Butler MD Work Phone: [facility] 09-13-2024 11:05-0400 Heart rate 75 /min Geneva Butler MD Work Phone: [facility] 09-13-2024 11:05-0400 Systolic blood pressure 124 mm[Hg] Geneva Butler MD Work Phone: [facility] 08-30-2024 11:42-0400 Body height 185.42 cm [facility] 08-30-2024 11:42-0400 Body mass index (BMI) [Ratio] 34.4 kg/m2 [facility] 08-30-2024 11:42-0400 Body weight 118.44 kg [facility] 08-30-2024 11:42-0400 Diastolic blood pressure 70 mm[Hg] [facility] 08-30-2024 11:42-0400 Heart rate 80 /min [facility] 08-30-2024 11:42-0400 Respiratory rate 12 /min [facility] 08-30-2024 11:42-0400 Systolic blood pressure 135 mm[Hg] [facility] 08-16-2024 15:05-0400 Body mass index (BMI) [Ratio] 33.95 kg/m2 Herber Donald MD Work Phone: [facility] 08-16-2024 15:05-0400 Body weight 123.2 kg Herber Donald MD Work Phone: [facility] 08-16-2024 15:05-0400 Diastolic blood pressure 70 mm[Hg] Herber Donald MD Work Phone: [facility] 08-16-2024 15:05-0400 Heart rate 64 /min Herber Donald MD Work Phone: [facility] 08-16-2024 15:05-0400 Systolic blood pressure 127 mm[Hg] Herber Donald MD Work Phone: [facility] 04-27-2024 15:30-0500 Body height 185.42 cm [facility] 04-27-2024 15:30-0500 Body mass index (BMI) [Ratio] 34.3 kg/m2 [facility] 04-27-2024 15:30-0500 Body weight 118.16 kg [facility] 04-27-2024 15:30-0500 Diastolic blood pressure 79 mm[Hg] [facility] 04-27-2024 15:30-0500 Heart rate 72 /min [facility] 04-27-2024 15:30-0500 Respiratory rate 20 /min [facility] 04-27-2024 15:30-0500 Systolic blood pressure 135 mm[Hg] [facility] 04-05-2024 13:44-0500 Body height 189.2 cm Amanda Mustafa DO Work Phone: [facility] 04-05-2024 13:44-0500 Body mass index (BMI) [Ratio] 31.92 kg/m2 Amanda Mustafa DO Work Phone: [facility] 04-05-2024 13:44-0500 Body weight 114.31 kg Amanda Moon DO Work Phone: [facility] 04-05-2024 13:44-0500 Diastolic blood pressure 86 mm[Hg] Amanda Moon DO Work Phone: [facility] 04-05-2024 13:44-0500 Heart rate 63 /min Amanda Moon DO Work Phone: [facility] 04-05-2024 13:44-0500 SaO2% (BldA) [Mass fraction] 97 % Amanda Moon DO Work Phone: [facility] 04-05-2024 13:44-0500 Systolic blood pressure 142 mm[Hg] Amanda Moon DO Work Phone: [facility] 03-11-2024 11:25-0500 Body mass index (BMI) [Ratio] 34 kg/m2 [facility] 03-11-2024 11:25-0500 Diastolic blood pressure 89 mm[Hg] [facility] 03-11-2024 11:25-0500 Systolic blood pressure 139 mm[Hg] [facility] 03-11-2024 11:04-0500 Body height 185.42 cm [facility] 03-11-2024 11:04-0500 Body weight 116.8 kg [facility] 03-11-2024 11:04-0500 Heart rate 74 /min [facility] 03-11-2024 11:04-0500 Respiratory rate 12 /min [facility] 02-22-2024 10:41-0500 Body height 189.2 cm Amanda Moon DO Work Phone: [facility] 02-22-2024 10:41-0500 Body mass index (BMI) [Ratio] 32.18 kg/m2 Amanda Moon DO Work Phone: [facility] 02-22-2024 10:41-0500 Body weight 115.21 kg Amanda Moon DO Work Phone: [facility] 02-22-2024 10:41-0500 Diastolic blood pressure 86 mm[Hg] Amanda Moon DO Work Phone: [facility] 02-22-2024 10:41-0500 Heart rate 88 /min Amanda Moon DO Work Phone: [facility] 02-22-2024 10:41-0500 SaO2% (BldA) [Mass fraction] 99 % Amanda Moon DO Work Phone: [facility] 02-22-2024 10:41-0500 Systolic blood pressure 142 mm[Hg] Amanda Moon DO Work Phone: [facility] 12-03-2023 11:04-0400 Body height 185.42 cm [facility] 12-03-2023 11:04-0400 Body mass index (BMI) [Ratio] 33.8 kg/m2 [facility] 12-03-2023 11:04-0400 Body weight 116.28 kg [facility] 12-03-2023 11:04-0400 Diastolic blood pressure 86 mm[Hg] [facility] 12-03-2023 11:04-0400 Heart rate 71 /min [facility] 12-03-2023 11:04-0400 Respiratory rate 12 /min [facility] 12-03-2023 11:04-0400 Systolic blood pressure 130 mm[Hg] [facility] Encounters Encounter Date Encounter Type Care Provider Facility Start: 12-13-2024 End: 12-13-2024 ambulatory Alvin Lo DO Work Phone: [facility] Work Phone: Start: 12-13-2024 End: 12-13-2024 Patient encounter procedure Alvin Lo DO -[facility] Work Phone: Start: 12-05-2024 Non-patient / Non-visit Jeffrey Nguyen ORAL SURGEON -[facility] Work Phone: Start: 12-03-2024 Non-patient / Non-visit [facility] Work Phone: Start: 11-29-2024 End: 11-29-2024 Admission to same day surgery center Geneva Butler MD Work Phone: Endocrine Surgery Comment on above: Hyperparathyroidism (HCC) (Primary Dx) Start: 11-29-2024 End: 11-29-2024 Telemedicine consultation with patient Geneva Butler MD Work Phone: Endocrine Surgery Start: 11-29-2024 End: 11-29-2024 ambulatory GENEVA BUTLER Facility:[facility] Start: 11-22-2024 Non-patient / Non-visit Alvin gonzalez DO [facility] Work Phone: Start: 11-18-2024 End: 11-18-2024 Telephone encounter Geneva Butler MD Work Phone: Endocrine Surgery Comment on above: Post Op Start: 11-15-2024 ambulatory [facility] [place] Start: 11-15-2024 Non-patient / Non-visit [facility] Work Phone: Start: 11-14-2024 End: 11-15-2024 ambulatory ALVIN LO Facility:[facility] Start: 11-01-2024 ambulatory GENEVA GOLDEN BUTLER Facility:[facility] Start: 11-01-2024 End: 11-01-2024 Subsequent hospital visit by physician [facility] Work Phone: Molecular Imaging Comment on above: Hyperparathyroidism (HCC) [E21.3] Start: 11-01-2024 Non-patient / Non-visit Geneva Butler MD -[facility] Work Phone: Start: 11-01-2024 End: 11-01-2024 ambulatory ALVIN LO Facility:[facility] Start: 11-01-2024 ambulatory GENEVA BUTLER Facility:[facility] Start: 11-01-2024 End: 11-01-2024 Subsequent hospital visit by physician [facility] Start: 11-01-2024 End: 11-01-2024 Admission [...] (HCC) Start: 11-01-2024 End: 11-01-2024 ambulatory ALVIN Juanjose [place] Facility:[facility] Start: 10-25-2024 End: 10-25-2024 ambulatory [facility] Start: 10-19-2024 End: 10-19-2024 ambulatory ALVIN LO Facility:[facility] Start: 10-04-2024 End: 10-10-2024 Telephone encounter Geneva Butler MD Work Phone: Endocrine Surgery Comment on above: NM Parathyroid Reque st Start: 09-15-2024 End: 09-15-2024 ambulatory [facility] Work Phone: Start: 09-15-2024 End: 09-15-2024 Patient encounter procedure Anne christopher [facility] Work Phone: Start: 09-13-2024 End: 09-13-2024 Patient encounter procedure Geneva Butler MD Work Phone: Endocrine Surgery Comment on above: Hyperparathyroidism (HCC) (Primary Dx) Start: 09-13-2024 End: 09-13-2024 ambulatory GENEVA BUTLER Facility:[facility] Start: 09-06-2024 ambulatory [facility] Start: 08-30-2024 End: 08-30-2024 ambulatory [facility] Work Phone: Start: 08-30-2024 End: 08-30-2024 Patient encounter procedure Anne christopher [facility] Work Phone: Start: 08-25-2024 Non-patient / Non-visit [facility] Physician [facility] Work Phone: Start: 08-25-2024 Non-patient / Non-visit [facility] Work Phone: Start: 08-24-2024 Non-patient / Non-visit [facility] Physician [facility] Work Phone: Start: 08-23-2024 Non-patient / Non-visit [facility] Physician [facility] Work Phone: Start: 08-23-2024 End: 08-23-2024 Telephone encounter Geneva Butler MD Work Phone: Endocrine Surgery Comment on above: Appointment (Left a messge that appointment with scheduled for today(08/23) was rescheduled to 09/13 at 12:20 PM due to patient not feeling well. Sent My chart message) Start: 08-18-2024 End: 08-18-2024 Telephone encounter Hreber Donald MD Work Phone: Endocrinology Comment on above: Results (Flory castro - DXA scan ) Start: 08-17-2024 End: 10-17-2024 Follow-up encounter Herber Donald MD Work Phone: Endocrinology Start: 08-17-2024 End: 08-17-2024 Telephone encounter Geneva Butler MD Work Phone: Endocrine Surgery Comment on above: Consult (FACE SHEET) Start: 08-16-2024 Non-patient / Non-visit [facility] Work Phone: Start: 08-16-2024 End: 08-16-2024 Patient encounter procedure Herber Donald MD Work Phone: Endocrinology Comment on above: Primary hyperparathy roidism (HCC) (Primary Dx); Hypercalcemia Start: 08-16-2024 End: 08-16-2024 ambulatory HERBER DONALD Facility:[facility] Start: 07-18-2024 Non-patient / Non-visit [facility] Work Phone: Start: 07-08-2024 End: 07-08-2024 [facility] Start: 07-07-2024 Non-patient / Non-visit [facility] Work Phone: Start: 07-04-2024 End: 07-04-2024 ambulatory ARLENE DEGROOT Not Available Start: 07-01-2024 ambulatory [facility] Start: 06-14-2024 End: 06-14-2024 ambulatory [facility] Start: 05-03-2024 ambulatory [facility] Start: 04-27-2024 End: 04-27-2024 ambulatory [facility] Work Phone: Start: 04-27-2024 End: 04-27-2024 Patient encounter procedure [facility] Work Phone: Start: 04-07-2024 End: 04-07-2024 Clinisync Result Encounter Amanda Mustafa DO Work Phone: [facility] External Department Unsolicited Start: 04-07-2024 End: 04-07-2024 Clinisync Result Encounter Amanda Mustafa DO Work Phone: [facility] External Department Unsolicited Start: 04-07-2024 Non-patient / Non-visit [facility] Work Phone: Start: 04-05-2024 End: 04-05-2024 Bamboo flowsheet Amanda Mustafa DO Work Phone: [facility] [address] Start: 04-05-2024 End: 04-05-2024 Bamboo flowsheet Amanda Mustafa DO Work Phone: [facility] [address] Start: 04-05-2024 End: 04-05-2024 Office outpatient visit 25 minutes Amanda Moon DO Work Phone: 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; Weakness Start: 04-05-2024 End: 04-05-2024 ambulatory AMANDA MOON Not Available Start: 03-23-2024 ambulatory [facility] Start: 03-15-2024 End: 03-15-2024 ambulatory [facility] Start: 03-11-2024 End: 03-11-2024 Patient encounter procedure [facility] Work Phone: Start: 03-10-2024 Non-patient / Non-visit [facility] Work Phone: Start: 03-10-2024 Patient encounter procedure [facility] Start: 03-07-2024 ambulatory [facility] Start: 03-02-2024 Non-patient / Non-visit [facility] Work Phone: Start: 02-24-2024 End: 02-24-2024 ambulatory AMANDA MOON Not Available Start: 02-24-2024 End: 02-24-2024 Patient encounter procedure Amanda Moon DO Work Phone: [facility] Comment on above: Idiopathic periphera l neuropathy Start: 02-22-2024 End: 02-22-2024 Bamboo flowsheet Amanda Moon DO Work Phone: [facility] Start: 02-22-2024 End: 02-22-2024 Bamboo flowsheet Amanda Moon DO Work Phone: [facility] Start: 02-22-2024 End: 02-22-2024 ambulatory AMANDA MOON Not Available Start: 02-22-2024 End: 02-22-2024 Office outpatient new 45 minutes Amanda Moon DO Work Phone: [facility] Comment on above: Idiopathic periphera l neuropathy (Primary Dx); 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; Weakness; Numbness and tingling Start: 02-11-2024 ambulatory [facility] Start: 02-02-2024 ambulatory [facility] Start: 01-21-2024 ambulatory TEE NAGY [facility] Start: 12-09-2023 End: 12-09-2023 ambulatory [facility] Start: 12-03-2023 End: 12-03-2023 ambulatory [facility] Work Phone: Start: 12-03-2023 End: 12-03-2023 Patient encounter procedure [facility] Work Phone: Start: 12-01-2023 Non-patient / Non-visit [facility] [employer] Work Phone: Start: 06-04-2023 End: 06-04-2023 ambulatory Alvin oL Other [employer] Other Start: 06-04-2023 Encounter by computer link Alvin Lo [facility] Start: 05-29-2023 End: 05-29-2023 ambulatory Alvin Lo Other [employer] Other Start: 05-29-2023 Telephone encounter Alvin Lo [facility] Start: 01-13-2023 End: 01-14-2023 ambulatory HARESH PINEDA Facility:[facility] Start: 01-12-2023 Orders Only Haresh Pineda MD Work Phone: Orthopaedics Comment on above: Chronic pain of left ankle (Primary Dx) Start: 11-17-2022 Orders Only Haresh Pineda MD Work Phone: Orthopaedics Comment on above: Chondrosarcoma (HCC) (Primary Dx) Start: 06-09-2022 End: 02-21-2023 ambulatory DREA LINO Facility:[facility] Start: 02-07-2022 End: [...] Start: 04-07-2024 ALL THYROID STIM HORMONE Amanda Moon DO Work Phone: Start: 03-15-2024 Follow-up visit Follow-up DREA LINO Start: 02-24-2024 End: 02-24-2024 Needle emg ea extremty w/paraspinl area complete Amanda Moon DO Work Phone: Start: 02-07-[address] JHONATHAN LO Comment on above: Performed By: #### T SH, BMP, LIPID, ALT #### [facility] [address] [place] [address] Dr. Fidel Paige Start: 11-05-2021 Radiologic exam ches t 2 views Eric Taylor APRN.[employer] OPERATOR Work Phone: Start: 11-05-2021 Radiologic examinati on tibia & fibula 2 views Eric Taylor APRN.[employer] OPERATOR Work Phone: Start: 06-30-2019 Adult depression scr eening assessment Haresh Pineda MD Work Phone: Plan of Treatment Date Care Activity Detail Author Start: 11-02-2027 Diabetes Screening Diabetes Screening [facility] Start: 10-02-2026 Urine microalbumin profile DTaP,Tdap,Td Vaccine (3 - Tdap) [facility] Start: 09-13-2025 BP Controlled (<130/80) BP Controlled (<130/80) [facility] Start: 08-16-2025 BP Controlled (<130/80) BP Controlled (<130/80) [facility] [place] [facility] Start: 02-28-2025 End: 02-28-2025 Patient encounter procedure 02/28/2025 2:20 PM EST Office Visit Endocrinology [address] [place] [address] Herber Donald MD [address] [place] [address] [place] [address] Return in about 6 months (around 02/15/2025). Endocrinology Comment on above: Return in about 6 months (around ). Start: 02-16-2025 End: 05-18-2025 25-hydroxyvitamin D3 [Mass/volume] in Serum or Plasma VITAMIN D 25 HYDROXY Lab Routine Primary hyperparathyroidism (HCC) Expected: 02/16/2025, Expires: 05/18/2025 [facility] Comment on above: Expected: 02/16/2025, Expires: Start: 02-16-2025 End: 05-18-2025 Parathyrin.intact [Mass/volume] in Serum or Plasma PTH INTACT Lab Routine Primary hyperparathyroidism (HCC) Expected: 02/16/2025, Expires: 05/18/2025 [facility] Comment on above: Expected: 02/16/2025, Expires: Start: 02-16-2025 End: 05-18-2025 Renal function 2000 panel - Serum or Plasma RENAL FUNCTION PANEL Lab Routine Primary hyperparathyroidism (HCC) Expected: 02/16/2025, Expires: 05/18/2025 [facility] Work Phone: Comment on above: Expected: 02/16/2025, Expires: Start: 02-12-2025 Screening for malignant neoplasm of colon [facility] Start: 12-19-2024 Influenza vaccination Influenza Vaccine (#1) [facility] Start: 11-29-2024 End: 11-29-2024 Admission to same day surgery center 11/29/2024 2:20 PM EDT [facility] Endocrine Surgery [address] [id number] Geneva Butler MD [address] [place] [address] post op Endocrine Surgery Comment on above: post op Start: 11-14-2024 End: 11-14-2024 Admission to same day surgery center 11/14/2024 7:30 AM EDT - 11/14/2024 9:15 AM EDT Surgery [facility] [id number] [place], [place] [id number] Geneva Butler MD [address] [place] [address] PARATHYROIDECTOMY [facility] Comment on above: PARATHYROIDECTOMY Start: 11-14-2024 End: 11-14-2024 Parathyroidectomy/explorat ion parathyroids PARATHYROIDECTOMY Hyperparathyroidism (HCC) 11/14/2024 7:30 AM EDT MM OR Start: 11-14-2024 Subsequent hospital visit by physician 11/14/2024 7:30 AM EDT Hospital Encounter [facility] [address] [place], [place] [id number] Geneva Butler MD [address] [place] [address] Hyperparathyroidism (HCC) [E21.3] [facility] Comment on above: Hyperparathyroidism (HCC) [E21.3] Start: 11-01-2024 End: 11-01-2024 Patient encounter procedure 11/01/2024 1:30 PM EDT Appointment Molecular Imaging [address] [place] [address] [place] PARATHYROID W SPECTCT Molecular Imaging Comment on above: NM PARATHYROID W SPECTCT Start: 11-01-2024 End: 11-01-2024 ambulatory Cardiology Comment on above: pre-op Start: 11-01-2024 End: 11-01-2024 Patient encounter procedure 11/01/2024 10:30 AM EDT Appointment Molecular Imaging [address] [place] [address] NM PARATHYROID W SPECTCT Molecular Imaging Comment on above: NM PARATHYROID W SPECTCT Start: 11-01-2024 End: 11-01-2024 Anesthesia consultation 11/01/2024 9:00 AM EDT PAT Pre Anesthesia [address] [place] [address] 6, Pacc Main [address] [id number] pre-op Pre Anesthesia Comment on above: pre-op Start: 09-13-2024 End: 09-13-2024 Patient encounter procedure 09/13/2024 12:20 PM EDT Office Visit Endocrine Surgery [address] [id number] [place] [address] [place] [id number] Pt okay to check-in at 11AM. [facility] Comment on above: Pt okay to check-in at 11AM. [facility] Start: 08-23-2024 End: 08-23-2024 Patient encounter procedure 08/23/2024 12:20 PM EDT Office Visit Endocrine Surgery [address] [id number] Geneva Butler MD [address] [place] [address] INTAKE PENDING-HYPERPARATHRYOIDIS M Endocrine Surgery Comment on above: INTAKE PENDING-HYPERPARATHRYOIDISM Start: 08-17-2024 End: 11-16-2024 Calcitriol [Mass/volume] in Serum or Plasma [facility] Comment on above: Expected: 08/17/2024 (Approximate), Expi res: 11/16/2024 Start: 08-17-2024 End: 11-16-2024 Calcium.ionized [Moles/volume] in Blood CALCIUM, IONIZED Lab Routine Hyperparathyroidism (HCC) Expected: 08/17/2024 (Approximate), Expires: 11/16/2024 [facility] Work Phone: Comment on above: Expected: 08/17/2024 (Approximate), Expi res: 11/16/2024 Start: 08-16-2024 End: 11-15-2024 25-hydroxyvitamin D3 [Mass/volume] in Serum or Plasma [facility] Comment on above: Expected: 08/16/2024, Expires: Start: 08-16-2024 End: 11-15-2024 Parathyrin.intact [Mass/volume] in Serum or Plasma [facility] Comment on above: Expected: 08/16/2024, Expires: Start: 08-16-2024 End: 11-15-2024 Renal function 2000 panel - Serum or Plasma [facility] Work Phone: Comment on above: Expected: 08/16/2024, Expires: Start: 07-04-2024 End: 07-04-2024 Patient encounter procedure 07/04/2024 4:00 PM EDT Office Visit [facility] [address] [place] [address] Arlene Degroot, NILA [address] [place], [place] [facility] [address] Start: 06-20-2024 Covid-19 Vaccine ( season) Covid-19 Vaccine () [facility] Start: 04-20-2024 Advance Directive Discussion Advance Directive Discussion [facility] Start: 04-05-2024 End: 04-05-2025 Cobalamin (Vitamin B12) [Mass/volume] in Serum or Plasma Vitamin B12 Lab Routine Idiopathic peripheral neuropathy Expected: 04/05/2024 (Approximate), Expires: 04/05/2025 [facility] Comment on above: Expected: 04/05/2024 (Approximate), Expi res: 04/05/2025 Start: 04-05-2024 End: 04-05-2025 Folate [Mass/volume] in Serum or Plasma Folate Lab Routine Idiopathic peripheral neuropathy Expected: 04/05/2024 (Approximate), Expires: 04/05/2025 [facility] Comment on above: Expected: 04/05/2024 (Approximate), Expi res: 04/05/2025 Start: 04-05-2024 End: 04-05-2025 Protein electrophoresis, serum Protein electrophoresis, serum Lab Routine Idiopathic peripheral neuropathy Expected: 04/05/2024 (Approximate), Expires: 04/05/2025 [facility] Comment on above: Expected: 04/05/2024 (Approximate), Expi res: 04/05/2025 Start: 04-05-2024 End: 04-05-2025 Thyrotropin [Units/volume] in Serum or Plasma TSH Lab Routine Idiopathic peripheral neuropathy Expected: 04/05/2024 (Approximate), Expires: 04/05/2025 [facility] Work Phone: Comment on above: Expected: 04/05/2024 (Approximate), Expi res: 04/05/2025 Start: 04-05-2024 End: 04-05-2024 Patient encounter procedure [facility] [address] Comment on above: Arrived Start: 02-24-2024 End: 02-24-2024 Patient encounter procedure 02/24/2024 1:00 PM EST Procedure Visit [facility] [address] [address] Amanda Mustafa DO [address] [place] [address] [facility] Start: 02-22-2024 End: 02-21-2025 Cobalamin (Vitamin B12) [Mass/volume] in Serum or Plasma Vitamin B12 Lab Routine Idiopathic peripheral neuropathy Expected: 02/22/2024 (Approximate), Expires: 02/21/2025 [facility] Work Phone: Comment on above: Expected: 02/22/2024 (Approximate), Expi res: 02/21/2025 Start: 02-22-2024 End: 02-21-2025 EMG 2 Extremities EMG 2 Extremities Neurology Routine Idiopathic peripheral neuropathy Expected: 02/22/2024 (Approximate), Expires: 02/21/2025 [facility] Comment on above: Expected: 02/22/2024 (Approximate), Expi res: 02/21/2025 Start: 02-22-2024 End: 02-21-2025 Folate [Mass/volume] in Serum or Plasma Folate Lab Routine Idiopathic peripheral neuropathy Expected: 02/22/2024 (Approximate), Expires: 02/21/2025 [facility] Comment on above: Expected: 02/22/2024 (Approximate), Expi res: 02/21/2025 Start: 02-22-2024 End: 02-21-2025 NVC 9-10 Nerves NVC 9-10 Nerves Neurology Routine Idiopathic peripheral neuropathy Expected: 02/22/2024 (Approximate), Expires: 02/21/2025 [facility] Comment on above: Expected: 02/22/2024 (Approximate), Expi res: 02/21/2025 Start: 02-22-2024 End: 02-21-2025 Protein electrophoresis, serum Protein electrophoresis, serum Lab Routine Idiopathic peripheral neuropathy Expected: 02/22/2024 (Approximate), Expires: 02/21/2025 [facility] Comment on above: Expected: 02/22/2024 (Approximate), Expi res: 02/21/2025 Start: 02-22-2024 End: 02-21-2025 Thyrotropin [Units/volume] in Serum or Plasma TSH Lab Routine Idiopathic peripheral neuropathy Expected: 02/22/2024 (Approximate), Expires: 02/21/2025 [facility] Comment on above: Expected: 02/22/2024 (Approximate), Expi res: 02/21/2025 Start: 12-19-2022 Influenza vaccination [facility] Start: 11-05-2022 End: 12-05-2022 Radiologic exam chest 2 views XR CHEST 2V FRONTAL/LAT Radiology Routine Chondrosarcoma (HCC) Expected: 11/05/2022 (Approximate), Expires: 12/05/2022 [facility] Work Phone: Comment on above: Expected: 11/05/2022 (Approximate), Expi res: 12/05/2022 Start: 11-05-2022 End: 12-05-2022 XR TIBIA FIBULA 2V AP/LAT RIGHT XR TIBIA FIBULA 2V AP/LAT RIGHT Radiology Routine Chondrosarcoma (HCC) Expected: 11/05/2022 (Approximate), Expires: 12/05/2022 [facility] Work Phone: Comment on above: Expected: 11/05/2022 (Approximate), Expi res: 12/05/2022 Start: 10-25-2022 DIABETES SCREEN DIABETES SCREEN [facility] Start: 10-25-2022 Diabetes Screening Diabetes Screening [facility] Start: 04-20-2022 ADVANCE DIRECTIVE DISCUSSION ADVANCE DIRECTIVE DISCUSSION [facility] Start: 04-20-2022 DEPRESSION ASSESSMENT DEPRESSION ASSESSMENT [facility] Start: 12-19-2021 Influenza vaccination INFLUENZA (#1) [facility] Start: 11-18-2021 COVID-19 VACCINE (5 - Pfizer series) COVID-19 VACCINE (5 - Pfizer series) [facility] Start: 04-20-2021 ADVANCE DIRECTIVE DISCUSSION ADVANCE DIRECTIVE DISCUSSION [facility] Start: 06-29-2020 Adult depression screening assessment DEPRESSION SCREENING [facility] Start: 01-19-2016 Pneumococcal Vaccine: 50+ (2 of 2 - PCV) Pneumococcal Vaccine: 50+ (2 of 2 - PCV) [facility] Start: 01-19-2016 Pneumococcal Vaccine: 65+ Years (2 of 2 - PCV) Pneumococcal Vaccine: 65+ Years (2 of 2 - PCV) [facility] Start: 2014 Pneumococcal Vaccine: 65+ (1 - PCV) Pneumococcal Vaccine: 65+ (1 - PCV) [facility] Start: 2014 PNEUMOCOCCAL: 65+ (1 - PCV) PNEUMOCOCCAL: 65+ (1 - PCV) [facility] Start: 08-18-2014 Medicare Annual Wellness Visit Medicare Annual Wellness Visit [facility] Start: 09-19-1999 SHINGRIX VACCINE (1 of 2) SHINGRIX VACCINE (1 of 2) [facility] Start: 1994 COLOGUARD (FIT-DNA) COLOGUARD (FIT-DNA) [facility] Start: 1994 Colonoscopy COLONOSCOPY [facility] Start: 1994 COLORECTAL CANCER SCREENING COLORECTAL CANCER SCREENING [facility] Start: [address] COLONOGRAPHY [facility] Start: 1994 FECAL OCCULT BLOOD FECAL OCCULT BLOOD [facility] Start: 1994 Screening for malignant neoplasm of colon [facility] Start: 1994 SIGMOIDOSCOPY SIGMOIDOSCOPY [facility] Start: 1984 Lipid 1996 panel - Serum or Plasma Lipid Screening [facility] Start: 1984 Lipid panel Lipid Screening [facility] Start: 1984 LIPID SCREEN LIPID SCREEN [facility] Start: 1968 [facility] Start: 09-19-1967 ANNUAL PCP TEAM CHRONIC DISEASE VISIT ANNUAL PCP TEAM CHRONIC DISEASE VISIT [facility] Start: 09-19-1967 Anxiety Screening Anxiety Screening [facility] Start: 09-19-1967 BP CONTROLLED (<130/80) BP CONTROLLED (<130/80) [facility] Start: 09-19-1967 Depression Screening Depression Screening [facility] Start: 09-19-1967 HEPATITIS C SCREENING HEPATITIS C SCREENING [facility] Start: 09-19-1967 Hepatitis C screening Hepatitis C Screening [facility] Start: 1949 Screening for malignant neoplasm of colon [facility] CALCIUM, 24 HR URINE CALCIUM, 24 HR URINE Lab Routine Hyperparathyroidism (HCC) Ordered: 08/17/2024 [facility] Comment on above: Ordered: 08/17/2024 CREATININE, 24 HOUR URINE CREATI NINE, 24 HOUR URINE Lab Routine Hyperparathyroidism (HCC) Ordered: 08/17/2024 [facility] Comment on above: Ordered: 08/17/2024 End: 09-16-2025 DXA Skeletal system.axial Views for bone density DXA-AXIAL SKELETON Radiology Routine Hyperparathyroidism (HCC) 1 Occurrences starting 08/17/2024 until 09/16/2025 [facility] Comment on above: 1 Occurrences starting 08/17/2024 until 09/16/2025 End: 09-16-2025 DXA-FOREARM SKELETON DXA-FOREARM SKELETON Radiology Routine Hyperparathyroidism (HCC) 1 Occurrences starting 08/17/2024 until 09/16/2025 [facility] Comment on above: 1 Occurrences starting 08/17/2024 until 09/16/2025 End: 12-17-2023 Radiologic exam chest 2 views XR CHEST 2V FRONTAL/LAT Radiology Routine Chondrosarcoma (HCC) 1 Occurrences starting 11/17/2022 until 12/17/2023 [facility] Work Phone: Comment on above: 1 Occurrences starting 11/17/2022 until 12/17/2023 End: 09-15-2025 SPECT+CT Parathyroid gland NM PARATHYROID W SPECT/CT Radiology Routine Primary hyperparathyroidism (HCC) Hypercalcemia 1 Occurrences starting 08/16/2024 until 09/15/2025 [facility] Comment on above: 1 Occurrences starting 08/16/2024 until 09/15/2025 SPECT+CT Parathyroid gland NM PA RATHYROID W SPECT/CT Radiology Routine Hyperparathyroidism (HCC) 11/01/2024 2:25 PM EDT [facility] Work Phone: [place] Lower extremity v ein - right [facility] End: 02-11-2024 XR ANKLE GENERAL 3V AP/LAT/OBL LEFT XR ANKLE GENERAL 3V AP/LAT/OBL LEFT Radiology Routine Chronic pain of left ankle 1 Occurrences starting 01/12/2023 until 02/11/2024 [facility] Work Phone: Comment on above: 1 Occurrences starting 01/12/2023 until 02/11/2024 XR Chest 2 Views [facility] End: 12-17-2023 XR TIBIA FIBULA 2V AP/LAT RIGHT XR TIBIA FIBULA 2V AP/LAT RIGHT Radiology Routine Chondrosarcoma (HCC) 1 Occurrences starting 11/17/2022 until 12/17/2023 [facility] Work Phone: Comment on above: 1 Occurrences starting 11/17/2022 until 12/17/2023 XR TIBIA FIBULA 2V A P/LAT RT XR TIBIA FIBULA 2V AP/LAT RT Radiology Routine Chondrosarcoma (HCC) 11/05/2021 2:50 PM EDT [facility] Work Phone: [facility] Immunizations Immunization Date Immunization Notes Care Provider Fa jarek 12-09-2023 influenza virus vaccine, unspecified formulation Alvin Lo DO Work Phone: [facility] 02-10-2022 influenza virus vaccine, split virus (incl. purified surface antigen) Alvin Lo Other [facility] Other 02-10-2022 influenza virus vaccine, unspecified formulation [facility] 05-29-2020 COVID-19 Vaccine Pfi zer - Documentation Purposes Only Alvin Lo Other [facility] 10-02-2016 diphtheria, tetanus toxoids and acellular pertussis vaccine, unspecified formulation Alvin Lo Other [facility] 03-23-2016 pneumococcal conjuga te vaccine, 13 valent Alvin Lo Other [facility] 03-01-2009 pneumococcal polysaccharide vaccine, 23 valent Alvin Lo Other [facility] 02-25-2006 diphtheria, tetanus toxoids and acellular pertussis vaccine, unspecified formulation Alvin Lo Other [facility] Payers Date Payer Category Payer Medicare MEDICARE MEDICAR E A AND B [id number] 2014-Present [phone] [address] [address] [place] [address] Medicare [id number] 2014 Medicare [id number] 2014 Private Health Insurance [id number] 2014 Unknown 2014 Unknown [employer] 2N D [id number] 2014-Present [phone] [address] [address] [place] [address] Indemnity [id number] 2014 Unknown [id number] 1959 Medicare [id number] 1959 Unknown [id number] 1949 Unknown [id number] 1949 Unknown [id number] 1949 Unknown [id number] 1949 Unknown [id number] 1949 Unknown [id number] 1949 Unknown [id number] 1949 Unknown [id number] Social History Date Type Detail Facility Start: 07-17-2017 End: 11-01-2024 Tobacco smoking status DCIS Never smoked tobacco [facility] Start: 07-17-2017 End: 11-01-2024 Tobacco use and exposure Smokeless tobacco non-user [facility] Start: 1950 Sex Assigned At Male [facility] Start: 10-26-2021 End: 11-05-2021 Exposure to SARS-CoV-2 (event) Not sure [facility] Start: 05-18-2022 End: 01-13-2023 History of Social function [facility] Start: 05-18-2022 End: 01-13-2023 Area Deprivation Index [facility] Start: 06-19-2017 National Score (1-100), lower number is lower risk 60 [facility] Start: 11-23-2019 Sexual orientation Heterosexual (finding) [facility] Tobacco smoking stat [facility] Tobacco smoking consumption unknown [facility] Start: 1950 Sex assigned at Not on file [facility] Start: 02-22-2024 Tobacco smoking status DCIS Ex-smoker [facility] History of tobacco use Current smoker [facility] History of tobacco use Cigarette Smoker [facility] Start: 04-27-2024 End: 09-15-2024 Sex Male (finding) [facility] History of tobacco use Passive smoker [facility] Start: 11-01-2024 Alcoholic beverage intake Ex-drinker (finding) [facility] Medical Equipment Procedure Code Equipment Code Equipment Origin al Text Equipment Identifier Dates Graft Enhance Demineralized Cortical Fiber Bone Allograft Dehydrate 2.5ml - [id number] Start: 08-27-2017 Graft Cancellous Chips Bone Void Freeze Dry 30ml (1.7-10mm) - [id number] Start: 08-27-2017 Graft Dbx Bone V oid Allograft Freeze Dried Putty 1ml - [id number] Start: 08-27-2017 Tibial Nail [id number] Start: 08-27-2017 Carbofix Titaniumscrew [id number] S tart: 08-27-2017 Carbofix Titaniu m Screw [id number][facility] Start: 08-27-2017 Carbofix Titaniu m Screw [id number][facility] Start: 08-27-2017 Carbofix Titaniu m Screw [id number] Start: 08-27-2017 Carbofix Titaniu m Screw [id number] Start: 08-27-2017 Functional Status Date Assessment Result Facility 08-31-2017 Are you deaf, or do you have serious difficulty hearing No 08/31/2017 4:00 PM Rylee Landon RN [facility] 08-31-2017 Are you blind, or do you have serious difficulty seeing, even when wearing glasses No 08/31/2017 4:00 PM Rylee Landon RN No [facility] 08-31-2017 Do you have serious difficulty walking or climbing stairs No 08/31/2017 4:00 PM Rylee Landon RN [facility] 08-31-2017 Do you have difficul ty dressing or bathing No 08/31/2017 4:00 PM Rylee Landon RN No [facility] 08-31-2017 Because of a physica l, mental, or emotional condition, do you have difficulty doing errands alone such as visiting a physician's office or shopping No 08/31/2017 4:00 PM Rylee Landon RN No [facility] Mental Status Date Assessment Result Facility 08-31-2017 Because of a physica l, mental, or emotional condition, do you have serious difficulty concentrating, remembering, or making decisions No 08/31/2017 4:00 PM Rylee Landon RN No [facility] Clinical Notes 10-10-2021 to 11-29-2024 Geneva Butler MD - 11/29/2024 7:44 AM EDTTelephone Encounter - Lois Wise RN - 11/18/2024 2:34 PM EDTTelephone Encounter - Lois Wise RN - 11/18/2024 2:34 PM EDTPatient Instructions Note Date & Type Note Facility 11-29-2024 Note HNO ID: [id number] Author: GENEVA BUTLER MD Service: ? Author Type: Physician Type: Progress Notes Filed: 11/29/2024 13:02 Note Text: [facility] Endocrinology and Metabolism [place] Department of Endocrine Surgery Geneva Butler M.D. [address] [id number] Mr. Bang Sharma's postoperative visit was conducted [...] GENEVA BUTLER M.D. CC: Nathaly Sargent D.O. [facility] 11-29-2024 History of Present illness Narrative [facility] Endocrinology and Metabolism [place] Department of Endocrine Surgery Geneva Butler M.D. [address] [id number] Mr. Bang Sharma's postoperative visit was conducted [...] Alvin Lo D.O. documented in this encounter [facility] 11-18-2024 Telephone encounter Note Called pt and left a voice mail to see how pt is doing after undergoing Parathyroid exploration with excision of the right upper and left upper parathyroid glands with Dr. Butler on 11/14/24. Reminded of post-op follow-up and instruction was given to have labs drawn prior to the appointment. Pt to call for questions. Lois Wise RN [facility] 11-18-2024 Miscellaneous Notes Called pt and left [...] Lois Wise RN documented in this encounter [facility] 11-15-2024 Note HNO ID: [id number] Author: ESTEBAN CAMPA MD Service: General Surgery [...] General Surgery Resident-PGY4 Endocrine Surgery Department Pager: [phone] [facility] 11-14-2024 Note HNO ID: [id number] Author: TIFFANY WESTBROOK MD Service: Endocrine Surgery Author Type: Physician Type: Progress Notes Filed: 11/14/2024 11:29 Note Text: ENDOCRINE SURGERY POST-OP CHECK Name: Bang Sharma Date: November 14, 2024 Patient is POD #0 s/p parathyroidectomy. Gland(s) removed: ADAM TIMMY S: Evaluated patient at bedside for post-op [...] in the surgical floor Tiffany Westbrook MD [phone] Fellow / Clinical Associate, Endocrine Surgery [facility] 11-14-2024 Note HNO ID: [id number] Author: AMANDA HAWKINS APRN.ANIMAL HUSBANDRY TECHNICIAN Service: ? Author Type: Nurse Deputy Harbormaster Type: Anesthesia Procedure Notes Filed: 11/14/2024 07:46 Note Text: ANESTHESIOLOGY PROCEDURE NOTE Airway General Information Procedure Start Time/Medication Administration: 11/14/2024 7:32 AM Procedure End Time: 11/14/2024 7:32 AM Patient location during procedure: OR Staffing ANIMAL HUSBANDRY TECHNICIAN: Amanda Hawkins APRN.ANIMAL HUSBANDRY TECHNICIAN Performed by: ANIMAL HUSBANDRY TECHNICIAN Indications and Patient Condition Indications for airway management: anesthesia Preoxygenated: yes anesthesia circuit Method: sleep Difficult Mask: No Final Airway Details Final airway type: endotracheal airway Final Endotracheal Airway: ETT Cuffed: yes Successful intubation technique: video laryngoscopy Devices used: Sputnik8 Endotracheal tube insertion site: oral Blade size: #3 ETT size (mm): 7.5 Measured from: lips Measurement (cm): 23 Placement verified by: capnometry Cormack-Lehane Classification: grade I - full view of glottis Number of attempts at approach: 1 Airway not difficult SIGNATURE: Amanda Chaudhari APRN.CRNA PATIENT NAME: Bang Sharma DATE: November 14, 2024 TIME: 7:46 AM CSN: [id number] [facility] 11-01-2024 History of Present illness Narrative [...] PATIENT PRESENTS WITH AN IMPLANTABLE OR ATTACHED COLLEGE OR UNIVERSITY FACULTY MEMBER: No CREATININE: Creatinine Date Value Ref Range [...] 13:50. PATIENT DISCHARGED TO: Ambulatory patient, left [place] department area. Is this a therapy: No A Diagnostic radioactive procedure has taken place, with no further precautions necessary other than routine body substance precautions. More information regarding radiation safety can be found using this link: [email or web address]%20N uclear%20Medicine%[email or web address] df SIGNATURE: JORGE Sierra) PATIENT NAME: Bang Sharma DATE: November 01, 2024 TIME: 11:26 AM PAGER/CONTACT #: documented in this encounter [facility] 11-01-2024 Note HNO ID: [id number] Author: JAME DONALD RT(R) Service: Nuclear Medicine [...] PATIENT PRESENTS WITH AN IMPLANTABLE OR ATTACHED COLLEGE OR UNIVERSITY FACULTY MEMBER: No CREATININE: Creatinine Date Value Ref Range [...] 13:50. PATIENT DISCHARGED TO: Ambulatory patient, left [place] department area. Is this a therapy: No A Diagnostic radioactive procedure has taken place, with no further precautions necessary other than routine body substance precautions. More information regarding radiation safety can be found using this link: [email or web address] [email or web address]-% 20Diagnostic%20Nuclear%20Medicin [email or web address] SIGNATURE: RT Mariela(Caro) PATIENT NAME: Bang Sharma DATE: November 01, 2024 TIME: 11:26 AM PAGER/CONTACT #: [facility] 11-01-2024 Instructions Luana Boss PA-C - 11/01/2024 9:37 AM EDT Images from the original note were not included. [facility] Pre[facility]Anesthesia [facility] PATIENT PREOPERATIVE INSTRUCTIONS No ref. provider found has scheduled you for your procedure at this surgery center: [facility]: [phone] -- [address] [place] [address]. Please read below carefully for your personalized [...] office. If you are currently using a eook-aug-kuuz injectable or oral medication for diabetes or [...] or other anticoagulants without consulting with your auto transmission specialist or prescribing physician. - Stop ALL herbal [...] please check with your dialysis center or pump operator byproducts to see if any adjustments need to [...] Procedures: - YOU MUST HAVE A RESPONSIBLE TEST FIXTURE ASSEMBLER TAKE YOU HOME. A HEATER HELPER OR PLATE WASHER CANNOT BE MADE A RESPONSIBLE TEST FIXTURE ASSEMBLER. - We recommend that a responsible person [...] Advance Directive, please fax a copy to [phone] or email to for it to be [...] Luana Boss PA-C documented in this encounter [facility] 11-01-2024 History and physical note Images from [...] physical activity. STOP-Bang Score: STOP-Bang Score: (+REMY) [id number] Score: Age: >=75 Sex: male Hypertension history: Yes [id number] Score: ARISCAT Score: Age: 51-80 Preoperative SpO2: >=96% Preoperative anemia: Yes Duration of surgery: <2 hrs Emergency procedure: No ARISCAT Score: I - PHYSICAL EVALUATION AIRWAY Patient intubated: No. Tracheostomy tube not present Mallampati: IV. TM distance: >3 FB. Neck ROM: full ROM without neurological symptoms. Mouth opening: adequate. Short neck: no. Thick neck: no Microretrognathia/Micronagthia/R ecessed Chin: No DENTAL Dental findings: teeth intact. [...] is scheduled for procedure on 11/14/2024 at [facility] [facility]. REVIEW OF SYSTEMS: General: No weight loss, malaise or fevers. Neurological: No history of TIA's, stroke, [employer] tumor, impaired sensorium, hemiplegia, paraplegia or quadraplegia. [...] Procedure Laterality Date CARDIOVERSION 2015 CYSTOCELE REPAIR 2009 LEFT HEART CATH,PERCUTANEOUS PAST SURGICAL HISTORY OF [...] Prior to Admission medications as of 11/01/24 7752 Medication Sig Last Dose Taking Aspirin 81 [...] 508 QTC Calculation (Bazett) 490 Calculated P [place] 85 Calculated R [place] -69 Calculated T [place] 33 Impression SINUS BRADYCARDIA LEFT AXIS DEVIATION COMPLETE RIGHT BUNDLE BRANCH BLOCK ABNORMAL ECG No results found for this or any previous visit (from the past 23323 hours). Spirometry Data No data to display Cardiac testing ECHO 12/06/2020: Normal ejection fraction of 60 to 65% with a mildly enlarged left atrium and no other significant valvular abnormalities 11/21/2015 CVL report IMPRESSION: Successful direct-current cardioversion with anabaptist of sinus rhythm from atrial fibrillation with no immediate complication. 03/22/12: EPS EP study by Dr. Carmen Flores on 03/22/2012 for evaluation of wide-complex tachycardia in the setting of normal ejection fraction revealed normal HV interval but no evidence of any AH jump suggestive of dual AV node physiology and no tachycardia was induced. This was followed up with VEST with [facility] protocol which was negative for inducible [...] Bang Sharma DATE: 11/01/2024 TIME: 9:31 AM Health 11-01-2024 History and physical note Images from [...] flecainide and and ASA Follows with Dr. Davis, [facility] 10/25/24 SVT (supraventricular tachycardia) (HCC) H/o cardioversion 2015 Sinus lanette on ECG today Managed with flecainide Follows with Dr. Davis, [facility] 10/25/24 ANESTHESIA FINDINGS: Intubation History: No [...] physical activity. STOP-Bang Score: STOP-Bang Score: (+REMY) [id number] Score: Age: >=75 Sex: male Hypertension history: Yes [id number] Score: ARISCAT Score: Age: 51-80 Preoperative SpO2: >=96% Preoperative anemia: Yes Duration of surgery: <2 hrs Emergency procedure: No ARISCAT Score: I - PHYSICAL EVALUATION AIRWAY Patient intubated: No. Tracheostomy tube not present Mallampati: IV. TM distance: >3 FB. Neck ROM: full ROM without neurological symptoms. Mouth opening: adequate. Short neck: no. Thick neck: no Microretrognathia/Micronagthia/R ecessed Chin: No DENTAL Dental findings: teeth intact. [...] is scheduled for procedure on 11/14/2024 at [facility]. REVIEW OF SYSTEMS: General: No weight loss, malaise or fevers. Neurological: No history of TIA's, stroke, [employer] tumor, impaired sensorium, hemiplegia, paraplegia or quadraplegia. [...] Procedure Laterality Date CARDIOVERSION 2015 CYSTOCELE REPAIR 2009 LEFT HEART CATH,PERCUTANEOUS PAST SURGICAL HISTORY OF [...] Admin: COVID-19 vaccine, age 12+ yr, bivalent ([email or web address]) 03/19/2022 Imm Admin: COVID-19 vaccine, age 12+ yr, bivalent (Giftology) 09/23/2021 Imm Admin: COVID-19 original vaccine, age 12+ yr, monovalent (PFIZER-BIONTMy1login - MELCHOR TOP) 02/04/2021 Imm Admin: COVID-19 original vaccine, age 12+ yr, monovalent (PFIZER-BIONTMy1login - PURPLE TOP) Only the first 5 [...] 508 QTC Calculation (Bazett) 490 Calculated P [place] 85 Calculated R [place] -69 Calculated T [place] 33 Impression SINUS BRADYCARDIA LEFT AXIS DEVIATION COMPLETE RIGHT BUNDLE BRANCH BLOCK ABNORMAL ECG No results found for this or any previous visit (from the past 75461 hours). Spirometry Data No data to display Cardiac testing ECHO 12/06/2020: Normal ejection fraction of 60 to 65% with a mildly enlarged left atrium and no other significant valvular abnormalities 11/21/2015 CVL report IMPRESSION: Successful direct-current cardioversion with anabaptist of sinus rhythm from atrial fibrillation with no immediate complication. 03/22/12: EPS EP study by Dr. Carmen Flores on 03/22/2012 for evaluation of wide-complex tachycardia in the setting of normal ejection fraction revealed normal HV interval but no evidence of any AH jump suggestive of dual AV node physiology and no tachycardia was induced. This was followed up with VEST with [facility] protocol which was negative for inducible [...] TIME: 9:31 AM documented in this encounter [facility] 10-25-2024 Note [facility] Electrophysiology Consult Note Reason [...] is having surgery for his [place] in [place] on November 14. Patient states he had [...] This was followed up with VEST with [facility] protocol which was negative for inducible [...] CVL report IMPRESSION: Successful direct-current cardioversion with anabaptist of sinus rhythm from atrial fibrillation with no immediate complication. 03/22/12: EPS EP study by Dr. Carmen Flores on 03/22/2012 for evaluation of wide-complex tachycardia in the setting of normal ejection fraction revealed normal HV interval but no evidence of any AH jump suggestive of dual AV node physiology and no tachycardia was induced. This was followed up with VEST with [facility] protocol which was negative for inducible arrhythmias subsequently Isuprel was started and again this was repeated and no evidence of jump or any echo beats and repeat the ventricular stimulation study was negative for any arrhythmias 01/29/12:CATH Impression: 1. Normal coronary angiogram. 2. Mild systemic hypertension. 3. Maria Dolores (more content not included)... [facility] 10-04-2024 Telephone encounter Note Are you an Endocrinology Surgical Technologist located at [facility]? Yes Patient Name: Bang Sharma Age: [age] year old Requestor: Dora Larkin Reason for Exam: TN Parathyroid w SPECT/CT Orders needed prior to scheduling: TN PARATHYROID W SPECT/CT [id number] Are all orders above present: Yes When will patient be scheduled: Day 1: Week of 10/31 No Doses on Thursday Route to Nv Schedulers @ [facility] Scheduling Hyperthyroidism or Nodule (100-300 microCi I-123 [...] of study: 1 - 1 1/2 hours [facility] 10-04-2024 Miscellaneous Notes Are you an Endocrinology Surgical Technologist located at [facility]? Yes Patient Name: Bang Sharma Age: [age] year old Requestor: Dora Larkin Reason for Exam: TN Parathyroid w SPECT/CT Orders needed prior to scheduling: TN PARATHYROID W SPECT/CT [id number] Are all orders above present: Yes When will patient be scheduled: Day 1: Week of 10/31 No Doses on Thursday Route to Nv Schedulers @ [facility] Scheduling Hyperthyroidism or Nodule (100-300 microCi I-123 Capsules for Diagnostic Imaging) 24 Hour Uptake and Scan only (Mon - after 9:00 AM) If I-131 therapy [...] 1 1/2 hours documented in this encounter [facility] 09-15-2024 Evaluation note Diagnosis Onset Date Resolution Cellulitis of leg without foot, right acute September 15, 2024 11:13am Hypertension acute September 15 11:13am Primary hyperparathyroidism acute September 15, 2024 11:13am Swelling of right lower extremity acute September 15, 2024 11:13am [facility] Work Phone: 1(843) 830-539305-27-2025 History of Present illness Narrative* Geneva Butler MD - 09/13/2024 12:20 PM EDT [facility] Endocrinology and Metabolism [place] Department of Endocrine Surgery Geneva Butler M.D. [address] [place] [address] Mr. Bang Sharma was seen in the [...] In terms of his family history, two ofhis daughters had hyperparathyroidism. The patient denies any [...] most recent bone density scan performed on 07/18/24revealed normal bone density. On physical examination, Mr. [...] No areas were seen to suggest an abnormalparathyroid gland. In summary, Mr. Sharma is a [...] CC: Nathaly Sargent D.O. documented in this encounterS[facility]05-27-2025 NoteHNO ID: [id number] Author: GENEVA BUTLER MD Service: ? Author Type: Physician Type: Progress Notes Filed: 09/13/2024 12:00 Note Text: [facility] Endocrinology and Metabolism [place] Department of Endocrine Surgery Geneva Butler M.D. [address] [place] [address] Mr. Bang Sharma was seen in the [...] M.D. CC: Herber Donald M.D. Alvin Lo D.O.[facility]05-27-2025 Instructions* Patient Instructions* Arlene Florian MA - 09/13/2024 11:05 AM EDT Thank you for choosing the [facility] Department of Endocrinology, Diabetes and Metabolism. Did you know that you need to call 48 hours in advance of your scheduled visit, if you are unable to make your appointment? The [facility] [place] thanks you for your commitment, because patients not showing to their appointment results in a lost opportunity for patients to receive [facility] health care at the [facility]. To Cancel an appointment, please choose one of the following: - Call the Appointment Call Center at [phone] - From [employer], Go to Appointments - Cancel Appts If cancelling, consider your need to reschedule to prevent further delays in your care. To Schedule an appointment, please choose one of the following: - Call the Appointment Call Center at [phone] - From [employer], Go to Appointments - Request an Appt documented in this encounterS[facility]05-13-2025 Evaluation note* Diagnosis Onset Date Resolution Status [...] 2024 11:31am Swelling of right lower extremity ac [place] August 30, 2024 11:31am Pneumonia noneactive August 30, 2024 11:31am Atrial fibrillation acute August 192024 11:13am Cellulitis of leg without fo ot, right acute September 15, 2024 11:13am Hypertension acute September 15 11:13am Obesity acute September 15, 2024 11:13am Primary hyperparathyroidism acute September 15, 2024 11:13am Swelling of right lower extremity ac [place] September 15, 2024 11:13am [facility] Work Phone: 1(160) 143-133105-01-2025 Telephone encounter Note* Telephone Encounter - Herber Donald MD - 08/18/2024 11:39 AM EDT Noted, BMD normal on 07/18/24 DXA, thanks [facility] Work Phone: 1(894) 816-436605-01-2025 Miscellaneous Notes* Telephone Encounter - Herber Donald MD - 08/18/2024 11:39 AM EDT Noted, BMD normal on 07/18/24 DXA, thanks * Telephone Encounter - Marina Mccracken MA - 08/18/2024 10:36 AM EDT Images from the original note were not included. A form has been received from [facility] for DXA Bone Densitometry Report. Sent to Dr Donald for consideration. Sent to Medical Records to be scanned. documented in this encounterShel[facility]05-01-2025 Telephone encounter Note * Telephone Encounter - Marina Mccracken MA - 08/18/2024 10:36 AM EDT Images from the original note were not included. A form has been received from [facility] for DXA Bone Densitometry Report. Sent to Dr Donald for consideration. Sent to Medical Records to be scanned. [facility]04-30-2025 Telephone encounter Note* Telephone Encounter - Edd Sosa - 08/17/2024 3:35 PM EDT 08/17/2024 INTAKE PENDING-MYCHART MSG SENT TO CONFIRM APPT. AND COMPLETE INTAKE QUESTIONS-NEED PARTIAL LABS, URINE, DXA, AND MIBI-- CALLED THE LAB TO POSSIBLY ADD ON IONIZED CALCIUM AND VIT D1 25. ENDOCRINE SURGERY PATIENT WORKSHEET Initial Call Date: August 17, 2024 Reason for Consult/ Referral: Hyperparathyroid PATIENT DEMOGRAPHICS Name: Bang Sharma CCF#: [id number] : 1950 AGE: [age] year old Contact Numbers: Home: (home) Work: There is no work phone number on file. PATIENT PHYSICIAN INFORMATION Referring Doctor: Address: Phone: Radio Communications Mechanician: Address: Phone: PCP: Alvin Lo ([facility]) [address] [place] [address] PAST TREATMENT Office notes: SEE [facility] Medications: NONE THAT APPLY Pre-Visit Testing Latest [...] pg/mL 106 (H) Imaging Reports: SEE [facility] CD of Images: SEE [facility] FNA: no FNA Slides: N/A Has the patient ever had thyroid or parathyroid surgery before: No Operative Reports: NONE AVAILABLE Pathology Reports: NONE AVAILABLE [facility]04-30-2025 Miscellaneous Notes* Telephone Encounter - Edd Sosa - 08/17/2024 3:35 PM EDT 08/17/2024 INTAKE PENDING-MYCHART MSG SENT TO CONFIRM APPT. AND COMPLETE INTAKE QUESTIONS-NEED PARTIAL LABS, URINE, DXA, AND MIBI-- CALLED THE LAB TO POSSIBLY ADD ON IONIZED CALCIUM AND VIT D1 25. ENDOCRINE SURGERY PATIENT WORKSHEET Initial Call Date: August 17, 2024 Reason for Consult/ Referral: Hyperparathyroid PATIENT DEMOGRAPHICS Name: Bang Sharma CCF#: [id number] : 1950 AGE: [age] year old Contact Numbers: Home: (home) Work: There is no work phone number on file. PATIENT PHYSICIAN INFORMATION Referring Doctor: Address: Phone: Radio Communications Mechanician: Address: Phone: PCP: Alvin Lo (Sarah) [address] [place] [address] PAST TREATMENT Office notes: SEE [facility] Medications: NONE THAT APPLY Pre-Visit Testing Latest [...] pg/mL 106 (H) Imaging Reports: SEE [facility] CD of Images: SEE [facility] FNA: no FNA Slides: N/A Has the patient ever had thyroid or parathyroid surgery before: No Operative Reports: NONE AVAILABLE Pathology Reports: NONE AVAILABLE documented in this encounterShelby [facility]04-29-2025 Instructions* Patient Instructions* Herber Donald MD - 08/16/2024 3:31 PM EDT Please get blood test today Will check Parathyroid scan Will schedule you with Dr Geneva Butler in endocrine surgery documented in this encounterShelby [facility]04-29-2025 NoteHNO ID: [id number] Author: HERBER DONALD MD Service: ? Author [...] - normal texture, normal temperature MSK - 08/22 UE proximal muscle strength bilaterally, No CVA [...] get records of recent DXA scan at [facility] - RENAL FUNCTION PANEL; Future - VITAMIN D 25 HYDROXY; Future - PTH INTACT; Future - NM PARATHYROID W SPECT/CT; Future - CONSULT TO ENDOCRINE SURGERY; Future Hypercalcemia - NM PARATHYROID W SPECT/CT; Future F/u 6 months The assessment and benefits/risks of the plan were discussed with the patient who expressed understanding and was agreeable to that which is noted above. [facility]04-29-2025 History of Present illness Narrative* Herber Donald [...] - normal texture, normal temperature MSK - 08/22 UE proximal muscle strength bilaterally, No CVA [...] get records of recent DXA scan at [facility] - RENAL FUNCTION PANEL; Future - VITAMIN [...] which is noted above. documented in this encounterShelby [facility] Hospital03-21-2025 NoteSUBJECTIVE Reason for Visit: Bang Sharma is [...] context of the patient's (more content not included)...[facility]02-25-2025 NoteUT Electrophysiology Consult Note Reason for visit: [...] This was followed up with VEST with [facility] protocol which was negative for inducible [...] CVL report IMPRESSION: Successful direct-current cardioversion with anabaptist of sinus rhythm from atrial fibrillation with no immediate complication. 03/22/12: EPS EP study by Dr. Carmen Flores on 03/22/2012 for evaluation of wide-complex tachycardia in the setting of normal ejection fraction revealed normal HV interval but no evidence of any AH jump suggestive of dual AV node physiology and no tachycardia was induced. This was followed up with VEST with [facility] protocol which was negative for inducible [...] with PACs a (more content not included)... [facility]12-17-2024 History of Present illness Narrative* Amanda Mustafa, - 04/05/2024 1:45 PM EST Images from [...] Date Afib (CMS/HCC) Heart disease HTN (hypertension) (CMS/[facility]) Past Surgical History: Procedure Laterality [...] to clinic: 3 weeks documented in this encounterGeneral [facility] [id number] NoteCardiovascular Medicine [facility] SUBJECTIVE Chief Complaint Patient presents [...] This was followed up with BEST with [facility] protocol which was negative for inducible [...] Coreg [Carvedilol] Diarrhea Meperi (more content not included)...[facility] 03-11-2024 Evaluation note* Diagnosis Onset Date Resolution Status Admit Date Abdominal pain acute February 192023 11:00am Atrial fibrillation acute Novem mac 2023 11:00am Hypercalcemia acute March 112023 11:00am Hypercholesterolemia acute Nove mber 2023 11:00am Hypertension acute February 11:00am Medicare annual wellness vis it, subsequent acute March 11, 024 11:00am Obesity acute March 11, 2024 11:00am REMY (obstructive sleep apnea) acute March 11, 2024 11:00am Screening PSA (prostate spec ific antigen) acute March 11 11:00am [facility] Work Phone: 1(227) 402-302911-06-2024 History of Present illness Narrative* AVI Ruiz - 02/24/2024 1:00 PM EST Images from the original note were not included. Reason for Appointment: EMG Patient: Bang Sharma : 1950 EMG Computer: elicit Referring Physician: Dr. Amanda Mustafa EMG: MINDY project landscape architect: Geoff Joshua RT(R) Office Location: [place] Reason for EMG: c/o numbness/tingling in right foot/ankle. Hx of surgery to right lower leg. No hx of DM. Not on blood thinners. Comments: Procedure was explained to the patient & who expressed understanding. Patient appeared to have tolerated the test well despite some discomfort due to the nature of the test. documented in this encounterGeneral Leonard Wood Army Community [id number] History of Present illness Narrative* Amanda Mustafa DO - 02/22/2024 10:30 AM EST Images from the original note were not included. Chief Complaint Patient presents with Numbness Peripheral Neuropathy Subjective Bang Sharma, 73 y.o., male being seen in Neurology consultation at the request of Dr. Joya. Dr. Lo is his PCP. HPI Lower extremity numbness - labs @ [facility]; referral received from Dr Reina Joya, LEATHA The patient states that his symptoms [...] Date Afib (CMS/HCC) Heart disease HTN (hypertension) (CMS/[facility]) Past Surgical History: Procedure Laterality [...] to clinic: 3 weeks documented in this encounterGeneral Leonard Wood Army Community [id number] NoteLOOP IMPLANT PROCEDURE NOTE DATE OF PROCEDURE: 12/09/23 PERFORMING PHYSICIAN: Dr. Alpesh Davis CHOKE SETTER: NA INDICATIONS FOR PROCEDURE: 1. SVT/AF surveillance CONSENT: [...] the sternum on the left using the [employer] tool. The loop recorder was then [...] wet the incision. Alpesh Davis MD Cardiac Electrophysiology.[facility]02-09-2024 Evaluation note* Encounter Date Diagnosis Assessment Notes Treatment Notes Treatment Clinical Notes May, Anemia (ICD-10 - D64.9) [facility] Other 09-26-2023 NoteHNO ID: [id number] Author: Keri Lopez RN Service: ? Author Type: Registered Nurse Type: Progress Notes Filed: 01/13/2023 4:19 PM Note Text: I served as a scribe during this office visit encounter. Keri LopezDana[facility]09-26-2023 NoteHNO ID: [id number] Author: Haresh Pineda MD Service: ? 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 (CPT 45822 - 22) Placement of Prophylactic Carbon Fiber Tibial Nail, Right Tibia (CPT 44721) High Speed Ehsan and Adjuvant Treatment with 10% H202 (CPT 13896) Neruolysis and Dissection of Deep Peroneal Nerve (CPT 52070) Right Iliac Crest Marrow Aspiration/Winston ( CPT 05287) Diagnosis: Right Tibial Diaphysis Cartilage Lesion with [...] the date of the service which included [id number] patient care, completing clinical documentation, obtaining and/or [...] information added by medical student, resident, nurse, GLUE LINE OPERATOR/PA-C that I have placed my signature directly below I have verified and either instructed them to document in a scribe function or document appropriately in the chart during the patient visit. Haresh Pineda MD auto roller, [facility] at [facility] ServicesTailor'S Aide, Division of Musculoskeletal Oncology Co-Director of Sarcoma Care, [facility] Pager: [phone] (more content not included)...[facility] [id number] History of Present illness Narrative* Haresh Pineda MD - 11/05/2021 5:19 PM EDT This note was created using Ecator[employer]. ISIAH SANCHEZ SF ORT MST FU Advanced: Did this patient have an adverse event since their last encounter?: No * Haresh Pineda MD - 11/05/2021 4:07 PM EDT Orthopaedic Surgery Follow-Up Clinic Note Surgery/Date: 08/27/2017 1. 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 Placement of Prophylactic Carbon Fiber Tibial Nail, Right Tibia (CPT 44875) 3. High Speed Ehsan and Adjuvant Treatment with 10% H202 (CPT 11288) 4. Neruolysis and Dissection of Deep Peroneal Nerve (CPT 37667) 5. 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 Exam: RLE -- largely unchanged compared [...] the date of the service which included [id number] patient care, completing clinical documentation, obtaining and/or reviewing separately obtained history, performing a medically appropriate examination, counseling and educating the patient/family/caregiver, ordering medications, tests, or procedures, independently interpreting results (not separately reported) and communicating results to the patient/family/caregiver. Any information added by medical student, resident, nurse, GLUE LINE OPERATOR/PAJayC that I have placed my signature directly below I have verified and either instructed them to document in a scribe function or document appropriately in the chart during the patient visit. Haresh Pineda MD auto roller, [facility] at [facility] ServicesTailor'S Aide, Division of Musculoskeletal Oncology Co-Director of Sarcoma Care, [facility] Pager: [phone] November 05, 2021 5:18 PM documented in this encounterShelby Memorial Hospital07-19-2022 History of Present illness Narrative* JORGE Coyne) - 11/05/2021 2:15 PM EDT Radiology Service [...] 05, 2021 2:49 PM documented in this encounterShelby Memorial Hospital06-23-2022 NotePROCEDURE: XR FOREARM LT 2 [...] authenticated by: TIFFANY GUPTA Date: 2021-10-10 12:28[facility] note* 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, site unspecified documented in this encounter [facility] note* 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, site unspecified documented in this encounter [facility] note* 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, site unspecified documented in this encounter [facility] note* Diagnosis Chronic pain of left ankle- Primary documented in this encounter [facility] noteNo [employer] Other Evaluation note* Diagnosis Onset Date Resolution Status Anemia acute Atrial fibrillation acute Hypercholesterolemia acute Hypertension acute Obesity acute REMY (obstructive sleep apnea) acute [facility] Work Phone: Evaluation note* Diagnosis Idiopathic peripheral neuropathy- Primary Unspecified hereditary and idiopathic peripheral neuropathy 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 Weakness Other malaise and fatigue Numbness and tingling Disturbance of skin sensation documented in this encounter [facility] [employer] note* Diagnosis Idiopathic peripheral neuropathy Unspecified hereditary and idiopathic peripheral neuropathy documented in this encounter [facility] [employer] note* Diagnosis Idiopathic peripheral neuropathy- Primary Unspecified hereditary and idiopathic peripheral neuropathy Numbness and tingling Disturbance of skin sensation 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 Weakness Other malaise and fatigue documented in this encounter [facility] [employer] note* Diagnosis Pre-operative examination- Primary Preoperative examination, [...] Primary hyperparathyroidism Hypercalcemia [facility] Diagnosis Pre-operative examination- Primary Preoperative examination, [...] Primary Hyperparathyroidism, unspecified documented in this encounter [facility]* Diagnosis Onset Date Resolution Status Admit [...] 11:31am Pneumonia noneactive August 30, 2024 11:31am [facility] Work Phone: Evaluation note* Diagnosis Pre-operative examination- [...] (HCC) Hyperparathyroidism, unspecified documented in this encounter [facility] note* Diagnosis Pre-operative examination- Primary [...] (HCC) Hyperparathyroidism, unspecified documented in this encounter [facility] note* Diagnosis Pre-operative examination- Primary [...] (HCC) Hyperparathyroidism, unspecified documented in this encounter [facility] note* Diagnosis Pre-operative examination- Primary [...] Problem(s): SVT (supraventricular tachycardia) (HCC) H/o cardioversion 2015 Sinus lanette on ECG today Managed with flecainide Follows with ADRIAN Bennett 10/25/24 * Assessment & Plan Note - Luana Boss PA-C - 11/02/2024 11:03 AM EDT Associated Problem(s): Paroxysmal atrial fibrillation (HCC) H/o cardioversion 2015 [...] right tibial 08/2017 [facility] Pre-operative examination- Primary Preoperative examination, [...] Primary Hyperparathyroidism, unspecified documented in this encounter [facility] general Narrative - Reported* Type Description Date [...] 2006 Surgical History Colonoscopy 2009 Surgical History [facility] 2011 Surgical History Cardiac Ablation 2011 Surgical History Removal FB Right Hand 2015 Surgical History Resected Bone Right Tibia w/ ro d insertion 2018 Hospitalization History see surgical hx [employer] Other Reason for referral (narrative)* Diagnostic Procedure Only (Routine) - Pending Review Specialty Diagnoses / Procedures Referred By Contac t Referred To Contact XR IMAGING Diagnoses Chondrosarcoma (HCC) Procedures XR TIBIA FIBULA 2V AP/LAT RIGHT RADIOLOGIC EXAMINATION TIBIA & FIBULA 2 VIEWS Haresh Pineda MD [address] [place] [address] Xr Imaging Referral ID Status Reason Start Date Expiration Date Visits Requested Visits Authorized [id number] Pending Review Auto-Generat ed Referral 11/05/2022 12/05/[address] [facility] for referral (narrative)* Diagnostic Procedure Only (Routine) - Pending Review Specialty Diagnoses / Procedures Referred By Contac t Referred To Contact XR IMAGING Diagnoses Chondrosarcoma (HCC) Procedures XR TIBIA FIBULA 2V AP/LAT RIGHT RADIOLOGIC EXAMINATION TIBIA & FIBULA 2 VIEWS Haresh Pineda MD [address] [place] [address] Xr Imaging Referral ID Status Reason Start Date Expiration Date Visits Requested Visits Authorized [id number] Pending Review Auto-Generat ed Referral 11/17/2022 12/17/[address] [facility] for referral (narrative)* Diagnostic Procedure Only (Routine) - Authorized Specialty Diagnoses / Procedures Referred By Contac t Referred To Contact XR IMAGING Diagnoses Chronic pain of left ankle Procedures XR ANKLE GENERAL 3V AP/LAT/OBL LEFT RADEX ANKLE COMPLETE MINIMUM 3 VIEWS Valeri Quintero PA-C [address] [address] Xr Imaging [place] [address] Referral ID Status Reason Start Date Expiration Date Visits Requested Visits Authorized [id number] Authorized Auto-Generat ed Referral 01/12/2023 02/11/2024 1 1 [facility]No reason for referral [facility] Work Phone: Reason for visit Narrative* Diagnostic Procedure Only (Routine) - Closed Specialty Diagnoses / Procedures Referred By Contac t Referred To Contact MOLECULAR & FUNCTIONAL IMAGING Diagnoses Hyperparathyroidism (HCC) Procedures NM PARATHYROID W SPECT/CT PARATHYROID IMAGING W/TOMOGRAPHIC SPECT & CT Geneva Butler MD [address] [place] [address] Phone: tel: fax: [facility] [address] [place] [address] Phone: tel: Referral ID Status Reason Start Date Expiration Date V isits Requested Visits Authorized [id number] Closed Auto-Generate d Referral 09/13/2024 10/13/2025 1 1 [facility] Summary Purpose Family History Relationship Condition Age at Onset Recorded Date/T kayley father Malignant neoplasm Unknown Unknown mother Hypertension Unknown Diabetes mellitus Unknown Advance Directives Documents on File Type Date Recorded Patient Personnel Administrator Expl anation Advance Directive(s) Advance Directive(s) 09/02/2018 11:24 AM Advance Directive(s) 08/26/2018 2:02 PM Advance Directive(s) 08/24/2017 2:28 PM Documents on File Type Date Recorded Patient Personnel Administrator Expl anation Advance Directive(s) Advance Directive(s) 09/02/2018 11:24 AM Advance Directive(s) 08/26/2018 2:02 PM Advance Directive(s) 08/24/2017 2:28 PM Documents on File Type Date Recorded Patient Personnel Administrator Expl anation Advance Directive(s) 08/24/2017 2:28 PM Advance Directive Response Recorded Date/ Time Advance Directives No August 31 9:44am Advance Directive Response Recorded Date/ Time Advance Directives No August 31 4 8:44am Documents on File Type Date Recorded Patient Personnel Administrator Expl anation Advance Directive(s) 08/24/2017 2:28 [...] Admit Date Amb Documentation August 25, 2024 11:a hospital follow up August 30, 2024 11:31 [...] of right lower extremity September 152024 11:13am Chief Complaint Admit Date 2 week f/u September 15, 2024 11:13 am Amb Documentation December 05, 2024 10 :56am [facility] ER cellulitis December 13, 2024 3: 09pm Reason for Visit Admit Date Cellulitis of leg without foot, right Ma y 2024 11:13am Hypertension September 15, 2024 11:13 am Primary hyperparathyroidism September 15 11:13am Swelling of right lower extremity September 152024 11:13am Additional Source Comments (unrecognized sect ion and content) No Status Records FoundNo Status Records FoundNo Status Records FoundNo Status Records FoundNo Status Records FoundNo Status Records FoundNo Status Records Found INFORMATION SOURCE (unrecogn ized section and content) DATE CREATED AUTHOR 11/10/2017 [facility] DATE CREATED AUTHOR AUTHOR'S ORGANIZ ATION [facility] DATE CREATED AUTHOR AUTHOR'S ORGANIZ ATION 01/21/2023 [facility] DATE CREATED AUTHOR AUTHOR'S ORGANIZ ATION 07/06/2024 [facility] EPIC DATE CREATED AUTHOR AUTHOR'S ORGANIZ ATION 11/16/2024 [facility] DATE CREATED AUTHOR AUTHOR'S ORGANIZ ATION 11/18/2024 [facility] DATE CREATED AUTHOR AUTHOR'S ORGANIZ ATION 12/10/2024 [facility] Source Comments (unrecognize d section and content) In the event this informatio n is protected by the Federal Confidentiality of Alcohol and Drug Abuse Patient Records regulations: The Federal rules restrict any use of the information to criminally investigate or prosecute any alcohol or drug abuse patient.[facility] the event this information is protected by the Federal Confidentiality of Alcohol and Drug Abuse Patient Records regulations: The Federal rules restrict any use of the information to criminally investigate or prosecute any alcohol or drug abuse patient.[facility] the event this information is protected by the Federal Confidentiality of Alcohol and Drug Abuse Patient Records regulations: The Federal rules restrict any use of the information to criminally investigate or prosecute any alcohol or drug abuse patient.[facility] the event this information is protected by the Federal Confidentiality of Alcohol and Drug Abuse Patient Records regulations: The Federal rules restrict any use of the information to criminally investigate or prosecute any alcohol or drug abuse patient.[facility] the event this information is protected by the Federal Confidentiality of Alcohol and Drug Abuse Patient Records regulations: The Federal rules restrict any use of the information to criminally investigate or prosecute any alcohol or drug abuse patient.[facility] the event this information is protected by the Federal Confidentiality of Alcohol and Drug Abuse Patient Records regulations: The Federal rules restrict any use of the information to criminally investigate or prosecute any alcohol or drug abuse patient.[facility] the event this information is protected by the Federal Confidentiality of Alcohol and Drug Abuse Patient Records regulations: The Federal rules restrict any use of the information to criminally investigate or prosecute any alcohol or drug abuse patient.[facility] the event this information is protected by the Federal Confidentiality of Alcohol and Drug Abuse Patient Records regulations: The Federal rules restrict any use of the information to criminally investigate or prosecute any alcohol or drug abuse patient.[facility] the event this information is protected by the Federal Confidentiality of Alcohol and Drug Abuse Patient Records regulations: The Federal rules restrict any use of the information to criminally investigate or prosecute any alcohol or drug abuse patient.[facility] the event this information is protected by the Federal Confidentiality of Alcohol and Drug Abuse Patient Records regulations: The Federal rules restrict any use of the information to criminally investigate or prosecute any alcohol or drug abuse patient.[facility] the event this information is protected by the Federal Confidentiality of Alcohol and Drug Abuse Patient Records regulations: The Federal rules restrict any use of the information to criminally investigate or prosecute any alcohol or drug abuse patient.[facility] the event this information is protected by the Federal Confidentiality of Alcohol and Drug Abuse Patient Records regulations: The Federal rules restrict any use of the information to criminally investigate or prosecute any alcohol or drug abuse patient.[facility] the event this information is protected by the Federal Confidentiality of Alcohol and Drug Abuse Patient Records regulations: The Federal rules restrict any use of the information to criminally investigate or prosecute any alcohol or drug abuse patient.[facility] the event this information is protected by the Federal Confidentiality of Alcohol and Drug Abuse Patient Records regulations: The Federal rules restrict any use of the information to criminally investigate or prosecute any alcohol or drug abuse patient.[facility] the event this information is protected by the Federal Confidentiality of Alcohol and Drug Abuse Patient Records regulations: The Federal rules restrict any use of the information to criminally investigate or prosecute any alcohol or drug abuse patient.[facility] the event this information is protected by the Federal Confidentiality of Alcohol and Drug Abuse Patient Records regulations: The Federal rules restrict any use of the information to criminally investigate or prosecute any alcohol or drug abuse patient.[facility] Reason for Visit (unrecogniz ed section and content) Reason Comments Follow Up Reason Comments Radio Gen A21 Reason Comments Numbness Peripheral Neuropathy Specialty Diagnoses / Procedures Referred By Contac t Referred To Contact Neurology Diagnoses Anesthesia of skin Procedures [place] OFFICE/OUTPATIENT [facility] 30 MINUTES Reina Joya MD [address] [place] [address] [place] [address] Phone: tel: fax: Emmett Pineda DO [address] [place] [address] Phone: tel: fax: Referral ID Status Reason Start Date Expiration Date V isits Requested Visits Authorized [id number] Closed Consult and Treat 02/11/2024 08/09/2024 1 1 Reason Comments Peripheral Neuropathy Reason Comments Thyroid Problem Reason Comments Consult FACE SHEET Reason Comments Results [facility] - DXA scan Reason Comments Appointment Left a messge that a ppointment with scheduled for today(08/23) was rescheduled to 09/13 at 12:20 PM due to patient not feeling well. Sent My chart message Reason Comments Consult Thyroid Problem Hyperparathyroidism Reason Comments NM Parathyroid Request Reason Comments Radiology NM Specialty Diagnoses / Procedures Referred By Contac t Referred To Contact MOLECULAR & FUNCTIONAL IMAGING Diagnoses Hyperparathyroidism (HCC) Procedures NM PARATHYROID W SPECT/CT PARATHYROID IMAGING W/TOMOGRAPHIC SPECT & CT Geneva Butler MD [address] [place] [address] Phone: tel: fax: [facility] [address] [place] [address] Phone: tel: Referral ID Status Reason Start Date Expiration Date V isits Requested Visits Authorized [id number] Closed Auto-Generate d Referral 09/13/2024 10/13/2025 1 1 Reason Comments Post Op Reason Comments Post-Op Visit Care Teams (unrecognized sec tion and content) Team Status: Active Member Role Status Dates Alvin Lo DO Primary Care Provider Active Team Status: Inactive Member Role Status Dates Alvin Lo DO Primary Care Provider Active Start: September 15, 2024 End: September 15, 2024 Alvin Lo DO Attending Provider Active Sta rt: September 15, 2024 End: September 15, 2024 Team Status: Active Member Role Status Dates Alvin Lo DO Primary Care Provider Active Start: November 01, 2024 Geneva Butler MD Attending Provider Active Star t: November 01, 2024 Team Status: Active Member Role Status Dates Alvin Lo DO Primary Care Provider Active Start: November 15, 2024 Outside Provider Attending Provider Active Start : November 15, 2024 Team Status: Active Member Role Status Dates Alvin Lo DO Primary Care Provider Active Start: November 22, 2024 Alvin Lo DO Attending Provider Active Sta rt: November 22, 2024 Team Status: Active Member Role Status Dates Alvin Lo DO Primary Care Provider Active Start: December 03, 2024 Foreign Torres , Attending Provider Active S tart: December 03, 2024 Team Status: Active Member Role Status Dates Alvin Lo DO Primary Care Provider Active Start: December 05, 2024 Kathy Nguyen CMA Attending Provider Active Start: December 05, 2024 Team Status: Inactive Member Role Status Dates Alvin Lo DO Primary Care Provider Active Start: December 13, 2024 End: December 13, 2024 Alvin Lo DO Attending Provider Active Sta rt: December 13, 2024 End: December 13, 2024 Hub Borer Relationship Specialty Start Date End Date Alvin Lo, DO [address] [place] [id number] PCP - General Internal Medicine 06/19/17 Hub Borer Relationship Specialty Start Date End Date Alvin Lo DO [address] [place] [address] PCP - General Internal Medicine 06/19/17 Hub Borer Relationship Specialty Start Date End Date Alvin Lo DO [address] [place] [address] PCP - General Internal Medicine 06/19/17 Team [...] December 03, 2023 End: December 03, 2023 Hub Borer Relationship Specialty Start Date End Date Alvin Lo MD [address] [place] [phone] PCP - General Internal Medicine 03/30/23 Hub Borer Relationship Specialty Start Date End Date Alvin Lo MD [address] [place] [address] PCP - General Internal Medicine 03/30/23 Bhavik Justin, PhD [address] [place] [phone] Referring Physician Neuropsychology 02/22/24 Hub Borer Relationship Specialty Start Date End Date Alvin Lo MD [address] [place] [address] PCP - General Internal Medicine 03/30/23 Bhavik Justin, PhD [address] [place] [phone] Referring Physician Neuropsychology 02/22/24 Hub Borer Relationship Specialty Start Date End Date Alvin Lo MD [address] [place] [address] PCP - General Internal Medicine 03/30/23 Bhavik Justin, PhD [address] [phone] Referring Physician Neuropsychology 02/22/24 Amanda Mustafa DO [address] [address] Referring Physician Neurology 04/05/24 Hub Borer Relationship Specialty Start Date End Date Alvin Lo MD [address] [place] [address] PCP - General Internal Medicine 03/30/23 Bhavik Justin, PhD [address] [phone] Referring Physician Neuropsychology 02/22/24 Amanda Mustafa DO [address] [place] [address] Referring Physician Neurology 04/05/24 Hub Borer Relationship Specialty Start Date End Date Alvin Lo MD [address] [place] [address] PCP - General Internal Medicine 03/30/23 Bhavik Justin, PhD [address] [address] Referring Physician Neuropsychology 02/22/24 Amanda Mustafa DO [address] [facility] [place] [address] Referring Physician Neurology 04/05/24 Team Status: Active [...] Status: Active Member Role Status Dates Alvin Ball , DO Primary Care Provide r, Attending Provider Active Start: April 07, 2024 Team Status: Inactive Member Role Status Dates Alvin Lo DO Primary Care Provide r, Attending Provider Active Start: April 27, 2024 End: April 27, 2024 Hub Borer Relationship Specialty Start Date End Date Alvin Lo DO [address] [facility] [place] [address] PCP - General Internal Medicine 06/19/17 Hub Borer Relationship Specialty Start Date End Date Alvin Lo DO [address] [facility] [place] [address] PCP - General Internal Medicine 06/19/17 Hub Borer Relationship Specialty Start Date End Date Alvin Lo DO [address] [facility] [place] [address] PCP - General Internal Medicine 06/19/17 Hub Borer Relationship Specialty Start Date End Date Teresita Alvin Juanjose DO [address] [facility] [place] [address] PCP - General Internal Medicine 06/19/17 Team [...] August 30, 2024 End: August 30, 2024 Hub Borer Relationship Specialty Start Date End Date Alvin Lo DO [address] [place] [address] PCP - General Internal Medicine 06/19/17 Team Status: Inactive Member Role Status Dates Alvin Lo DO Primary Care Provide r, Attending Provider Active Start: September 15, 2024 End: September 15, 2024 Hub Borer Relationship Specialty Start Date End Date Alvin Lo DO [address] [place] [address] PCP - General Internal Medicine 06/19/17 Hub Borer Relationship Specialty Start Date End Date Alvin Lo DO [address] [place] [address] PCP - General Internal Medicine 06/19/17 Hub Borer Relationship Specialty Start Date End Date Alvin Lo DO [address] [place] [address] PCP - General Internal Medicine 06/19/17 Hub Borer Relationship Specialty Start Date End Date Alvin Lo DO [address] [place] [address] PCP - General Internal Medicine 06/19/17 Hub Borer Relationship Specialty Start Date End Date Alvin Lo DO [address] [place] [address] PCP - General Internal Medicine 06/19/17 Hub Borer Relationship Specialty Start Date End Date Alvin Lo [address] [facility] [place] [address] PCP - General Internal Medicine 06/19/17 Hub Borer Relationship Specialty Start Date End Date Alvin Lo DO [address] [place] [address] PCP - General Internal Medicine 06/19/17 Team Status: Inactive Member Role Status Dates Alvin Lo DO Primary Care Provider Active Start: September 15, 2024 End: September 15, 2024 Alvin Lo DO Attending Provider Active Sta rt: September 15, 2024 End: September 15, 2024 Team Status: Active Member Role Status Dates Alvin Lo DO Primary Care Provider Active Start: November 01, 2024 Geneva Butler MD Attending Provider Active Star t: November 01, 2024 Team Status: Active Member Role Status Dates Alvin Lo DO Primary Care Provider Active Start: November 15, 2024 Outside Provider Attending Provider Active Start : November 15, 2024 Team Status: Active Member Role Status Dates Alvin Lo DO Primary Care Provider Active Start: November 22, 2024 Alvin Lo DO Attending Provider Active Sta rt: November 22, 2024 Team Status: Active Member Role Status Dates Alvin Lo DO Primary Care Provider Active Start: December 03, 2024 Foreign Torres DO Attending Provider Active S tart: December 03, 2024 Team Status: Active Member Role Status Dates Alvin Lo DO Primary Care Provider Active Start: December 05, 2024 Kathy Nguyen CMA Attending Provider Active Start: December 05, 2024 Team Status: Inactive Member Role Status Dates Alvin Lo DO Primary Care Provider Active Start: December 13, 2024 End: December 13, 2024 Alvin Lo DO Attending Provider Active Sta rt: December 13, 2024 End: December 13, 2024 Goals (unrecognized section and content) Goals [...] BASED ON THE PRIMARY CLINICAL RECORDS. [facility]. provides no warranty or guarantee of the accuracy or completeness of information in this document.
== END 2024-12-22 12:58 | disposition home or self-care (01) ==
LOC: WC 12:58
PROVIDERS: PCP Internal Medicine; Visit Provider Physician Assistant
DX: L84 Corns and callosities (principal)
CPT/HCPCS: 11055; G0463

== ENCOUNTER 2024-12-29 12:28 | Outpatient (OUT) | payer MEDICARE, OTHER, SELFPAY ==
--- OUTSIDE RECORDS SUMMARY | 2024-02-10 09:23 | XMS_ITS ---
Author Organization [facility] in [place] Address [address] [place] [address] Care Team Providers Care Bus And Rail Operator Name Role Phone Alvin Contreras DO Primary Care Provider Gomez Jaquez [phone] REASON FOR VISIT med order Medications Medication SIG (Take, Route, Frequency, Duration) Notes Start Date End Date Status dexAMETHasone Sod Phos (PF) 10 MG/ML as directed Injection 1 for 30 days 02/10/2024 Active Encounters Encounter Location Date Provider Diagnosis [facility] (PODIATRY) [address] [place] [address] [place] [address] 02/10/2024 Gomez Schneider Plan Of Treatment Medication Medication Name Sig Start Date Stop Date Notes dexAMETHasone Sod Phos (PF) 10 MG/ML as directed Injection 1 for 30 days 02/10/2024 Progress Notes * Juan David SHARMA EDOB: 0 (73 yo M)Acc No.[id number]:02/10/2024 Patient: Jian RAMIREZangelito Sow :1950 A ge:73 Y S ex:Male Phone: Address:[facility], [place] [address] * Refills Start dexAMETHasone Sod Phos (PF) Solution Prefilled Syringe, 10 MG/ML, Injection, 1, as directed, 1, 30 days, Refills=0 * true * Date: Generated for Printi ng/Faxing/eTransmitting on: 0 12/29/2024 12:32 PM EDT
--- OUTSIDE RECORDS SUMMARY | 2024-02-10 09:25 | XMS_ITS ---
Author Organization [facility] in [place] Address [address] [place] [address] Care Team Providers Care Security Assurance Specialist Name Role Phone Alvin Contreras DO Primary Care Provider Gomez Jaquez [phone] Medications Medication SIG (Take, Route, Frequency, Duration) Notes Start Date End Date Status dexAMETHasone Sod Phos (PF) 10 MG/ML as directed Injection for 30 days 02/10/2024 Active Encounters Encounter Location Date Provider Diagnosis [facility] (PODIATRY) [address] [place] [address] [place] [address] 02/10/2024 Gomez Schneider Plan Of Treatment Medication Medication Name Sig Start Date Stop Date Notes dexAMETHasone Sod Phos (PF) 10 MG/ML as directed Injection for 30 days 02/10/2024 Progress Notes * Juan David SHARMA EDOB: 0 (73 yo M)Acc No.[id number]:02/10/2024 Patient: Juan David RAMIREZ Juanjose :1950 A ge:73 Y S ex:Male Phone: Address:[facility], [place] [address] * Refills Start dexAMETHasone Sod Phos (PF) Solution Prefilled Syringe, 10 MG/ML, Injection, 1, as directed, 30 days, Refills=0 * true * Date: Generated for Printi ng/Faxing/eTransmitting on: 0 12/29/2024 12:31 PM EDT
--- OUTSIDE RECORDS SUMMARY | 2024-04-05 05:30 | XMS_ITS ---
Author Organization [facility] [place] Address [address] [place] [address] Care Team Providers Care Pipe Recovery Specialist Name Role Phone Alvin Contreras DO Primary Care Provider Gomez Jaquez [phone] Allergies No Known Allergies REASON FOR VISIT 6-8 weeks Medications Medication SIG (Take, Route, Frequency, Duration) Notes Start Date End Date Status Flecainide Acetate 100 MG Oral for 90 Days Active Meloxicam 15 MG 1 tablet Orally Once a day for 30 days Active Losartan Potassium-HCTZ 100-25 MG Oral for 90 Days Active Multi Complete - as directed Orally Active Baclofen 10 MG TAKE 1 TABLET BY KARLENE TH AT BEDTIME EVERY NIGHT Oral for 90 Days Unknown dexAMETHasone Sod Phos (PF) 10 MG/ML as directed Injection for 30 days 02/10/2024 Not-Taking amLODIPine Besylate 10 MG Oral for 90 Days Active dexAMETHasone Sod Phos (PF) 10 MG/ML as directed Injection for 30 days 02/10/2024 Not-Taking dexAMETHasone Sod Phos (PF) 10 MG/ML as directed Injection 1 for 30 days 02/10/2024 Not-Taking dexAMETHasone Sodium Phosphate 4 MG/ML 1.5ml-2.5ml topically up to 3 times weekly at physical therapy for 30 days 12/30/2023 Not-Taking Social History Tobacco Use: Social History Observation Description Date Details (start date - stop date) Never Smoker NA - NA Tobacco Use/Smoking Question Answer Notes Patient is a nonsmoker Tobacco Control (Standard) Question Answer Notes Tobacco use: Nonsmoker Vital Signs Temperature 96.9 degrees Fahrenheit 04/05/20 24 Heart Rate 71 /min 04/05/2024 Height 75 in 04/05/2024 Oximetry 99 % 04/05/2024 Encounters Encounter Location Date Provider Diagnosis [facility] (PODIATRY) [address] [place] [address] [place] [address] 04/05/2024 Gomez Schneider Primary osteoarthritis, right ankle and foot M19.071 ; Posterior tibial tendinitis, right leg M76.821 and Ingrowing nail L60.0 Assessments Encounter Date Diagnosis (ICD Code) Assessment Notes Treatment Notes Treatment Clinical Notes Section Notes 04/05/2024 Primary osteoarthritis , right ankle and foot (ICD-10 - M19.071) Patient is doing well with bracing and meloxicam. He did recently receive a refill of meloxicam and I recommend that he follow-up with Dr. Contreras his PCP regarding long-term management of the meloxicam. I did briefly discuss surgical intervention and given that patient is doing well and not having regular limitations I recommended that he continue nonsurgical treatment. He will follow-up in 6 months or as needed. 04/05/2024 Posterior tibial tendinitis, right leg (ICD-10 - M76.821) 04/05/2024 Ingrowing nail (ICD-10 - L60.0) The toenail was debrided sharply without incident into patient's satisfaction. Dried subungual hematoma was evacuated. No signs of infection. Plan Of Treatment Treatment Notes Assessment Notes Primary osteoarthritis, righ t ankle and foot Patient is doing well with bracing and meloxicam. He did recently receive a refill of meloxicam and I recommend that he follow-up with Dr. Contreras his PCP regarding long-term management of the meloxicam. I did briefly discuss surgical intervention and given that patient is doing well and not having regular limitations I recommended that he continue nonsurgical treatment. He will follow-up in 6 months or as needed. Ingrowing nail The toenail was debr ided sharply without incident into patient's satisfaction. Dried subungual hematoma was evacuated. No signs of infection. Progress Notes * Juan David SHARMA EDOB: 0 (73 yo M)Acc No.[id number]:04/05/2024 Follow Up Patient: Jeevan Juan David SHAW Provider: Harsha Schneider DPM, MS :1950 A ge:73 Y S ex:Male Date:04/05/2024 Address:[address] [place], [place] [phone] Pcp:Alvin Contreras, DO Check In:09:27 AM ESTCheck O ut:10:04 AM EST Subjective: * Chief Complaints: * 6 -8 weeks * HPI: G eneral: Patient returns to office today for f/u for right foot numbness. Patient states he did see Neurologist and they stated that his foot numbness is due to nerve damage. The numbness starts in his midfoot and radiates into toes 2-5. He rates his pain today 2/10 due to the numbness. He was orginally in our office for a right ankle sprain, which he states he has no pain in ever since he started the Meloxicam. He does notice when he does not take the Meloxicam due to feeling pain in his right ankle. He wears his ASO when he knows hell be on his feet long periods. * Active Problem List G47.33 REMY (obstructive sle ep apnea) Modified On:07/08/2023 Status:confirmed I48.0 PAF (paroxysmal atri al fibrillation) Modified On:07/08/2023 Status:confirmed Z77.090 History of asbestos exposure Modified On:07/08/2023 Status:confirmed Z86.16 History of COVID-19 Modified On:07/08/2023 Status:confirmed J44.9 Chronic obstructive pulmonary disease, unspecified Modified On:07/29/2023 Status:confirmed E66.9 Obesity, unspecified Modified On:08/11/2023 Status:confirmed Z68.34 Body mass index [BMI ] 34.0-34.9, adult Modified On:11/17/2023 Status:confirmed M25.571 Right ankle pain Modified On:12/30/2023 Status:confirmed M19.071 Primary osteoarthrit is, right ankle and foot Modified On:12/30/2023 Status:confirmed * Medical History: * Surgical History: t onsillectomy and adenoidectomy Hernia Repair Right Tibia Resection of Chondrosarcoma 08/27/2017Cardiac Catheterization 01/29/2012Lupe recorder * Hospitalization/Major Diagno stic Procedure: s ee above * Family History: F ather: lymphoma. M other: diagnosed with Chronic kidney disease, unspecified. * Social History: T obacco Use: T obacco Control (Standard) T obacco use: N onsmoker Electronic Cigarette use C urrent user N o Tobacco Use/Smoking P atient is a n onsmoker * Medications: T akingamLODIPine Besylate 10 MG Tablet Oral Flecainide Acetate 100 MG Tablet Oral Losartan Potassium-HCTZ 100-25 MG Tablet Oral Meloxicam 15 MG Tablet 1 tablet Orally Once a day Multi Complete(Multiple Vitamins-Minerals) - Capsule as directed Orally Taking amLODIPine Besylate 10 MG Tablet Oral Taking Flecainide Acetate 100 MG Tablet Oral Taking Losartan Potassium-HCTZ 100-25 MG Tablet Oral Taking Meloxicam 15 MG Tablet 1 tablet Orally Once a day Taking Multi Complete(Multiple Vitamins- Minerals) - Capsule as directed Orally Not-Taking/PRNdexAMETHasone Sod Phos (PF) 10 MG/ML Solution Prefilled Syringe as directed Injection dexAMETHasone Sod Phos (PF) 10 MG/ML Solution Prefilled Syringe as directed Injection 1 dexAMETHasone Sod Phos (PF) 10 MG/ML Solution Prefilled Syringe as directed Injection dexAMETHasone Sodium Phosphate 4 MG/ML Solution 1.5ml-2.5ml topically up to 3 times weekly at physical therapy Not-Taking/PRN dexAMETHasone Sod Phos (PF) 10 MG/ML Solution Prefilled Syringe as directed Injection Not-Taking/PRN dexAMETHasone Sod Phos (PF) 10 MG/ML Solution Prefilled Syringe as directed Injection 1 Not-Taking/PRN dexAMETHasone Sod Phos (PF) 10 MG/ML Solution Prefilled Syringe as directed Injection Not-Taking/PRN dexAMETHasone Sodium Phosphate 4 MG/ML Solution 1.5ml-2.5ml topically up to 3 times weekly at physical therapy UnknownBaclofen 10 MG Tablet TAKE 1 TABLET BY MOUTH AT BEDTIME EVERY NIGHT Oral Medication List reviewed and reconciled with the patientUnknown Baclofen 10 MG Tablet TAKE 1 TABLET BY MOUTH AT BEDTIME EVERY NIGHT Oral Medication List reviewed and reconciled with the patient * Allergies: N .K.D.A.no[Allergies Verified] Objective: * Vitals: H t: 75 in, Temp:96.9F, HR:71/min, Pain scale:21-10, Oxygen sat %:99%, Ht-cm: 190.5 cm. * Examination: P odiatry Examination: SKIN: s kin intact, n o sign of infection. Left great toe nail with subungual hematoma and significant incurvation. The nail is thickened and dystrophic. MUSCULOSKELETAL: N o POP at the PT tendon or sinus tarsi,?Hindfoot valgus noted in stance with too many toes sign, H ypermobility of the 1st ray is noted with forefoot varus, A nkle joint has dorsiflexion is to neutral but not past. NEUROLOGICAL: l ight touch sensation intact, n egative tinel's sign. VASCULAR: P edal pulses palpable, C apillary refill is brisk to toe, D igital hair intact. Assessment: * Assessment: 1. P rimary osteoarthritis, right ankle and foot - M19.071 (Primary) 2 . P osterior tibial tendinitis, right leg - M76.821 3 . I ngrowing nail - L60.0 S pecify :Left great toe Plan: * Treatment: 2. I ngrowing nail Notes: The toenail was debrided sharply without incident into patient's satisfaction. Dried subungual hematoma was evacuated. No signs of infection. * Procedure Codes: * * Sign off status: Completed Visit Status: C HK (Check Out) true * Provider: Harsha Schneider DPM, MS Date: 06/06/2023 Generated for Ericka maradiaga/William/eTransmitting on: 0 12/29/2024 12:30 PM EDT History and Physical Notes * HPI (History of Present Illness) Category Sub-Category Detail Notes Category Not es General Patient returns to office today for f/u for right foot numbness. Patient states he did see Neurologist and they stated that his foot numbness is due to nerve damage. The numbness starts in his midfoot and radiates into toes 2-5. He rates his pain today 2/10 due to the numbness. He was orginally in our office for a right ankle sprain, which he states he has no pain in ever since he started the Meloxicam. He does notice when he does not take the Meloxicam due to feeling pain in his right ankle. He wears his ASO when he knows hell be on his feet long periods. Examination Category Sub-Category Detail Notes Category Not es Podiatry Examination SKIN: skin intact , no sign of infection. Left great toe nail with subungual hematoma and significant incurvation. The nail is thickened and dystrophic MUSCULOSKELETAL: No POP at the PT ten don or sinus tarsi, Hindfoot valgus noted in stance with too many toes sign, Hypermobility of the 1st ray is noted with forefoot varus, Ankle joint has dorsiflexion is to neutral but not past NEUROLOGICAL: light touch sensatio n intact, negative tinel's sign VASCULAR: Pedal pulses palpabl e, Capillary refill is brisk to toe, Digital hair intact
--- OUTSIDE RECORDS SUMMARY | 2024-11-15 06:13 | XMS_ITS ---
Author Organization [facility] in [place] Address [address] [place] [address] Care Team Providers Care Lead Technical Writer Name Role Phone Ben Alvin NEWBERRY Primary Care Provider Davin Montes [phone] REASON FOR VISIT Letter/Appointment Encounters Encounter Location Date Provider Diagnosis Pulmonary Medicine [place] [address] [place] [address] 11/15/2024 Davin Reyes Plan Of Treatment No Information Progress Notes * Juan David SHARMA EDOB: 0 (74 yo M)Acc No.[id number]:11/15/2024 Patient: Jeevan COLINJuan David :1950 A ge:74 Y S ex:Male Address:[address] [place] [address] [address], [place] [address] * true * Date: Generated for Ericka maradiaga/William/eTransmitting on: 0 12/29/2024 12:31 PM EDT
--- OUTSIDE RECORDS SUMMARY | 2024-11-22 06:30 | XMS_ITS ---
Author Organization [facility] in [place] Address [address] [place] [address] Care Team Providers Care Surface Lay Out Technician Name Role Phone Alvin Contreras DO Primary Care Provider Davin Montes Unavailable [phone] REASON FOR VISIT 1 YEAR REMY Encounters Encounter Location Date Provider Diagnosis Pulmonary Medicine [place] [address] [place] [address] 11/22/2024 Davin Reyes Plan Of Treatment No Information Progress Notes * Juan David SHARMA EDOB: 0 (74 yo M)Acc No.[id number]:11/22/2024 UNLOCKED PROGRESS NOTE Follow Up Patient: Juan David RAMIREZ Provider: Maura Reyes DO :1950 A ge:74 Y S ex:Male Date:11/22/2024 Phone: Address:[address] [place] [address] [address] Pcp:Alvin Contreras DO Subjective: * Chief Complaints: * 1 . 1 YEAR REMY. * Medical History: Objective: * Vitals: Assessment: Plan: * Treatment: * * Electronic signature of Maryjane Reyes DO on 12/29/2024 at 12:31 PM EDT Sign off status: Pending Visit Status: O FF CANC (OFFICE CANCEL) * Provider: Maura Reyes DO Date: 0 11/22/2024 Generated for Ericka maradiaga/William/eTransmitting on: 0 12/29/2024 12:31 PM EDT
--- OUTSIDE RECORDS SUMMARY | 2024-12-29 12:31 | XMS_ITS | Encounter Summary ---
Author Organization [facility] Address [address] [place] [address] Care Team Providers Care Technical Expert Name Role Phone Alvin Contreras Primary Care Provider [phone] Source Comments In the event this information is protected by the Federal Confidentiality of Alcohol and Drug AbusePatient Records regulations: The Federal rules restrict any use of the information to criminally investigate or prosecute any alcohol or drug abuse patient.[facility] Encounter Details Date Type Department Care Team (Late st Contact Info) Description 10/07/2024 Patient Msg Endocrine Surgery [address] [place] [id number] Provider, [facility] Pre-op Appointments Social History Tobacco Use Types Packs/Day Years Used Date Smoking Tobacco: Never Smokeless Tobacco: Never PHQ-2 Answer Date Recorded PHQ-2 score 0 06/30/2019 Area Deprivation Index Answer Date Mumtaz rded National Score (1-100), lower number is lower ri sk 60 01/13/2023 State Score (1-10), lower number is lower risk 4 01/13/2023 Data from: https://www.neighborhoodatlas.medicine.[facility].edu/. Last address used for calculation [address] [place] [address] 01/13/2023 Sex and Gender Information Value Date Recorded Sex Assigned at Male 11/23/2019 10:00 AM EDT Legal Sex Male 8:05 AM EST Gender Identity Not on file Sexual Orientation Straight 11/23/2019 10 :00 AM EDT documented as of this encounter Functional Status * Are you deaf or do you have serious difficulty hearing? Answer Date of Assessment Author No 08/31/2017 4:00 PM EDT Jevean Strong RN * Are you blind or [...] 2:20 PM EST Office Visit Endocrinology [address] [place] [address] Gaudencio Lewis MD [address] [place] [address] [address] [place], [place] [phone] Return in about 6 months (around 02/15/2025). documented as of this encounter Visit Diagnoses Not on filedocumented in this encounter Care Teams Technical Expert Relationship Specialty Start Date End Date Alvin Contreras DO [address] [place] [address] PCP - General Internal Medicine 06/19/17 documented as of this encounter
--- OUTSIDE RECORDS SUMMARY | 2024-12-29 12:31 | XMS_ITS | Encounter Summary ---
Author Organization [facility] Address [address] [place] [address] Care Team Providers Care Director Of Curriculum And Instruction Name Role Phone Alvin Contreras Primary Care Provider [phone] Source Comments In the event this information is protected by the Federal Confidentiality of Alcohol and Drug AbusePatient Records regulations: The Federal rules restrict any use of the information to criminally investigate or prosecute any alcohol or drug abuse patient.[facility] Encounter Details Date Type Department Care Team (Late st Contact Info) Description 07/12/2019 Patient Msg Neurology [address] [phone] Provider, Ccf Neurology - Blood Work Orders [...] 2:20 PM EST Office Visit Endocrinology [address] [place] [address] Gaudencio Lewis MD [address] [place] [address] [place] [address] Return in about 6 months (around 02/15/2025). documented as of this encounter Visit Diagnoses Not on filedocumented in this encounter Care Teams Director Of Curriculum And Instruction Relationship Specialty Start Date End Date Alvin Contreras DO [address] [place] [address] PCP - General Internal Medicine 06/19/17 documented as of this encounter
--- OUTSIDE RECORDS SUMMARY | 2024-12-29 12:31 | XMS_ITS | Encounter Summary ---
Author Organization [facility] Address [address] [place] [address] Care Team Providers Care Emblem Maker Name Role Phone Alvin Contreras DO Primary Care Provider [phone] Source Comments In the event this information is protected by the Federal Confidentiality of Alcohol and Drug AbusePatient Records regulations: The Federal rules restrict any use of the information to criminally investigate or prosecute any alcohol or drug abuse patient.[facility] Encounter Details Date Type Department Care Team (Late st Contact Info) Description 08/17/2024 Patient Msg Endocrine Surgery [address] [phone] Provider, Ccf Appointment Social History Tobacco Use Types Packs/Day Years Used Date Smoking Tobacco: Never Smokeless Tobacco: Never PHQ-2 Answer Date Recorded PHQ-2 score 0 06/30/2019 Area Deprivation Index Answer Date Mumtaz rded National Score (1-100), lower number is lower ri sk 60 01/13/2023 State Score (1-10), lower number is lower risk 4 01/13/2023 Data from: https://www.neighborhoodatlas.medicine.[facility].edu/. Last address used for calculation [address] [place] [address] 01/13/2023 Sex and Gender Information Value Date [...] 2:20 PM EST Office Visit Endocrinology [address] [place] [address] Gaudencio Lewis MD [address] [place] [address] [place] [address] Return in about 6 months (around 02/15/2025). documented as of this encounter Visit Diagnoses Not on filedocumented in this encounter Care Teams Emblem Maker Relationship Specialty Start Date End Date Alvin Contreras DO [address] [place] [address] PCP - General Internal Medicine 06/19/17 documented as of this encounter
--- OUTSIDE RECORDS SUMMARY | 2024-12-29 12:31 | XMS_ITS | Encounter Summary ---
Author Organization [facility] Address [address] [place], [place] [phone] Care Team Providers Care Director Of Gift Planning Name Role Phone Alvin Contreras DO Primary Care Provider [phone] Source Comments In the event this information is protected by the Federal Confidentiality of Alcohol and Drug AbusePatient Records regulations: The Federal rules restrict any use of the information to criminally investigate or prosecute any alcohol or drug abuse patient.[facility] Reason for Referral * Consult, Test, Treat (Routine) - Authorized Specialty Diagnoses / Procedures Referred By Contac t Referred To Contact Diagnoses Hyperparathyroidism (HCC) Procedures OFFICE/OUTPATIENT [facility] 60 MINUTES Geneva Samayoa MD [address] [place] [address] Phone: tel: fax: Referral ID Status Reason Start Date Expiration Date Visits Requested Visits Authorized [id number] Authorized PCP Requested Referral 09/13/2024 09/13/2025 1 1 * Diagnostic Procedure Only (Routine) - Closed Specialty Diagnoses / Procedures Referred By Contac t Referred To Contact [facility] Diagnoses Hyperparathyroidism (HCC) Procedures NM PARATHYROID W SPECT/CT PARATHYROID IMAGING W/TOMOGRAPHIC SPECT & CT Geneva Samayoa MD [address] [place] [address] Phone: tel: fax: Molecular Imaging [address] [phone] Phone: tel: Referral ID Status Reason Start Date Expiration Date V isits Requested Visits Authorized [id number] Closed Auto-Generate d Referral 09/13/2024 10/13/2025 1 1 * Outpatient Procedure (Routine) - Closed Specialty Diagnoses / Procedures Referred By Contac t Referred To Contact [facility] Diagnoses Hyperparathyroidism (HCC) Procedures ECG COMPLETE ECG ROUTINE ECG W/LEAST 12 LDS W/I[place] [address] [place] [address] Phone: tel: fax: [facility] [place] [address] [place] [address] Referral ID Status Reason Start Date Expiration Date V isits Requested Visits Authorized [id number] Closed Auto-Generate d Referral 09/13/2024 09/13/2025 1 1 Reason for Visit * Reason Comments 11/14 MM - Parathyroidectomy Needs: labs, EKG, NM scan of Parathyroid, in-person PACC and 2 wk phone post-op. Encounter Details Date Type Department Care Team (Latest Contact Info) Description 09/13/2024 Patient Update Endocrine Surgery [address] [phone] Geneva Samayoa MD [address] [place] [address] 11/14 MM - Parathyroidectomy (Needs: [...] is lower risk 4 01/13/2023 Data from: https://www.neighborhoodatlas.[facility]/. Last address used for calculation [address] 01/13/2023 Sex and Gender [...] 2:20 PM EST Office Visit Endocrinology [address] [place] [address] Gaudencio Lewis MD [address] [place] [address] [place] [address] Return in about 6 months [...] be communicated with the ordering provider via [employer] staff message or phone message by [facility] within 2 business days of report finalization. --END OF FINDING-- Disaster Recovery Specialist: BARBARA Transcribe Date/Time: Nov 02 2024 7:32A Dictated by : SKIP RIVERA DO This examination was interpreted and the report reviewed and electronically signed by: SKIP RIVERA DO on Nov 02 2024 7:42AM EST Narrative 11/02/2024 7:44 AM EDT * * *Final Report* * * DATE OF EXAM: Nov 01 2024 2:25PM [facility] 0089 - NM PARATHYROID W SPECT/CT [...] Images: No additional findings. Procedure Note Provider, [facility] [place] - 11/02/2024 * * *Final Report* * [...] be communicated with the ordering provider via [employer] staff message or phone message by [facility] within 2 business days of report finalization. --END OF FINDING-- Disaster Recovery Specialist: BARBARA Transcribe Date/Time: Nov 02 2024 7:32A [...] ms [facility] Calculated P Page 85 degrees [facility] Calculated R Page -69 degrees [facility] Calculated T Page 33 degrees [facility] 11/01/2024 11:5 5 AM EDT Impressions [facility] - 12/08/2024 9:49 AM EDT SINUS BRADYCARDIA LEFT AXIS DEVIATION COMPLETE RIGHT BUNDLE BRANCH BLOCK ABNORMAL ECG Confirmed by ENRIQUE ROSALES MD ([id number]) on 12/08/2024 9:49:14 AM Narrative [facility] - 12/08/2024 9:49 AM EDT NAME : BANG SHARMA PID : [id number] : 1950 Gender : Male Race : ORD : [id number] Procedure Date : Nov 01 2024 11:55:05 Edit Date : Dec 08 2024 09:49:21 Diagnosis: SINUS BRADYCARDIA LEFT AXIS DEVIATION COMPLETE RIGHT BUNDLE BRANCH BLOCK ABNORMAL ECG Confirmed by ENRIQUE ROSALES MD ([id number]) on 12/08/2024 9:49:14 AM Test Reason : Location : 314 : J14 J14 Overread By : ENRIQUE ROSALES MD Edited By : ENRIQUE ROSALES MD Referred By : GENEVA SAMAYOA Acquired by : JENIFFER MCCAULEY us Geneva Samayoa MD EKG Final Res ult [facility] [address] [place] [address] * COMPLETE BLOOD COUNT AND DIFFERENTIAL (11/01/2024 11:24 AM EDT) WBC 5.86 3.70 - 11.00 k/uL 11/01/2024 12:25 PM EDT [facility] RBC 4.58 4.20 - 6.00 m/uL 11/01/2024 12:25 PM EDT [facility] Hemoglobin 14.3 13.0 - 17.0 g/dL 11/01/2024 12:25 PM EDT [facility] Hematocrit 44.3 39.0 - 51.0 % 11/01/2024 12:25 PM EDT [facility] MCV 96.7 80.0 - 100.0 fL 11/01/2024 12:25 PM EDT [facility] MCH 31.2 26.0 - 34.0 pg 11/01/2024 12:25 PM EDT [facility] MCHC 32.3 30.5 - 36.0 g/dL 11/01/2024 12:25 PM EDT [facility] RDW-CV 13.6 11.5 - 15.0 % 11/01/2024 12:25 PM EDT [facility] Platelet Count 307 150 - 400 k/uL 11/01/2024 12:25 PM EDT [facility] MPV 9.1 9.0 - 12.7 fL 11/01/2024 12:25 PM EDT [facility] Neutrophils % 59.7 % 11/01/2024 12:25 PM EDT [facility] Abs Neut 3.50 1.45 - 7.50 k/uL 11/01/2024 12:25 PM EDT [facility] Lymphocytes % 25.3 % 11/01/2024 12:25 PM EDT [facility] Abs Lymph 1.48 1.00 - 4.00 k/uL 11/01/2024 12:25 PM EDT [facility] Monocytes % 11.9 % 11/01/2024 12:25 PM EDT [facility] Abs [place] 0.70 <0.87 k/uL 11/01/2024 12:25 PM EDT [facility] Eosinophils % 1.9 % 11/01/2024 12:25 PM EDT [facility] Abs Eosin 0.11 <0.46 k/uL 11/01/2024 12:25 PM EDT [facility] Basophils % 0.9 % 11/01/2024 12:25 PM EDT [facility] Abs Baso 0.05 <0.11 k/uL 11/01/2024 12:25 PM EDT [facility] Immature Granulocytes % 0.3 % 11/01/2024 12:25 PM EDT [facility] Abs Immature Gran <0.03 <0.10 k/uL 025 12:25 PM EDT [facility] NRBC 0.0 /100 WBC 11/01/2024 12:25 PM EDT [facility] Absolute nRBC <0.01 <0.01 k/uL 11/01/2024 12:25 PM EDT [facility] Diff Type Auto 11/01/2024 12:25 PM EDT [facility] Blood BLOOD SPECIMEN / Unknown Venipuncture / Unknown 11/01/2024 11:24 AM EDT 11/01/2024 11:24 AM EDT us Geneva Samayoa MD LABORATORY Final Res ult [facility] [address] [place] [address], * (ABNORMAL) BASIC METABOLIC PANEL (11/01/2024 11:24 AM EDT) [facility] Signature Glucose 108(H) 74 - 99 mg/dL 11/01/2024 2:16 PM EDT [facility] Comment: The [place] Diabetes Association (ADA) provides guidance for cutoff [...] Standards of Medical Care in Diabetes 2016, [place] Diabetes Association. Diabetes Care. 2016.39(Suppl 1). BUN 18 9 - 24 mg/dL 11/01/2024 2:16 PM EDT [facility] Creatinine 0.86 0.73 - 1.22 mg/dL 11/01/2024 2:16 PM EDT [facility] Sodium 140 136 - 144 mmol/L 11/01/2024 2:16 PM EDT [facility] Potassium 4.5 3.7 - 5.1 mmol/L 11/01/2024 2:16 PM EDT [facility] Chloride 105 98 - 107 mmol/L 11/01/2024 2:16 PM EDT [facility] CO2 26 22 - 30 mmol/L 11/01/2024 2:16 PM EDT [facility] Anion Gap 9 8 - 15 mmol/L 11/01/2024 2:16 PM EDT [facility] Calcium, Total 11.0(H) 8.5 - 10.2 mg/dL 11/01/2024 2:16 PM EDT [facility] Estimated Glomerular Filtration Rate 90 >=60 mL/min/1. 73m 11/01/2024 2:16 PM EDT [facility] Comment:Estimated Glomerular Filtration Rate (eGFR) [...] Geneva Samayoa MD LABORATORY Final Res ult [facility] [address] [address], [place] * (ABNORMAL) CREATININE, 24 HOUR URINE (10/19/2024 1:36 PM EDT) Creatinine 24 hr Ur 2.006(H) 1.000 - 2.000 g/24 hr 10/20/2024 5:25 PM EDT [facility] Period 24 hr 10/20/2024 5:25 PM EDT [facility] Volume 1,750 mL 10/20/2024 5:25 PM EDT [facility] Urine URINE SPECIMEN / Unknown Non Blood / Unknown 10/19/2024 1:36 PM EDT 10/19/2024 1:36 PM EDT Geneva Samayoa MD LABORATORY Final Res ult Performing Organization Address [facility]/ZIP Co de Phone Number [facility] [place] [address], [facility] [address] [place] [address] * (ABNORMAL) CALCIUM, 24 HR URINE (10/19/2024 1:35 PM EDT) Calcium, 24 Hr Urine 357.0(H) 100.0 - 300.0 mg/24 hr 10/20/2024 7:10 PM EDT [facility] Period 24 hr 10/20/2024 7:10 PM EDT [facility] Volume 1,750 mL 10/20/2024 7:10 PM EDT [facility] Urine URINE SPECIMEN / Unknown Non Blood / Unknown 10/19/2024 1:35 PM EDT 10/19/2024 1:35 PM EDT Geneva Samayoa MD LABORATORY Final Res ult [facility] [address] [place] [address], [facility] [address] [place] [address] documented in this encounter Visit Diagnoses Diagnosis Hyperparathyroidism (HCC)- Primary Hyperparathyroidism, unspecified Hyperparathyroidism (HCC) Hyperparathyroidism, unspecified Hyperparathyroidism (HCC) Hyperparathyroidism, unspecified documented in this encounter Care Teams Director Of Gift Planning Relationship Specialty Start Date End Date Alvin Contreras DO [address] [place] [address] PCP - General Internal Medicine 06/19/17 documented as of this encounter
--- OUTSIDE RECORDS SUMMARY | 2024-12-29 12:31 | XMS_ITS | Encounter Summary ---
Author Organization [facility] Address [address] [place] [address] Care Team Providers Care Rn On Site Name Role Phone Alvin Contreras DO Primary Care Provider [phone] Source Comments In the event this information is protected by the Federal Confidentiality of Alcohol and Drug AbusePatient Records regulations: The Federal rules restrict any use of the information to criminally investigate or prosecute any alcohol or drug abuse patient.[facility] Encounter Details Date Type Department Care Team (Late st Contact Info) Description 11/21/2024 Get Medical Advice Endocrine Surgery [address] [place] [address] Geneva Samayoa MD [address] [phone] CALCIUM TOTAL BLD, Parathyroid hormone (PTH intact), [...] is lower risk 4 01/13/2023 Data from: https://www.neighborhoodatlas.medicine.[facility]/. Last address used for calculation [address] 01/13/2023 Sex and Gender [...] 2:20 PM EST Office Visit Endocrinology [address] [place], [place] [address] Gaudencio Lewis MD [address] [place] [address] [place] [address] Return in about 6 months (around 02/15/2025). documented as of this encounter Visit Diagnoses Not on filedocumented in this encounter Care Teams Rn On Site Relationship Specialty Start Date End Date Alvin Contreras DO [address] [place] [address] PCP - General Internal Medicine 06/19/17 documented as of this encounter
--- OUTSIDE RECORDS SUMMARY | 2024-12-29 12:31 | XMS_ITS | Encounter Summary ---
Author Organization [facility] Address [address] [place] [address] Care Team Providers Care Grain Thresher Name Role Phone Alvin Contreras DO Primary Care Provider [phone] Source Comments In the event this information is protected by the Federal Confidentiality of Alcohol and Drug AbusePatient Records regulations: The Federal rules restrict any use of the information to criminally investigate or prosecute any alcohol or drug abuse patient.[facility] Encounter Details Date Type Department Care Team (Late st Contact Info) Description 10/18/2019 Patient Msg Orthopaedics [address] [place], [place] [phone] Provider, Ccf Repeat injection with Dr. Bah [...] 2:20 PM EST Office Visit Endocrinology [address] [place], [place] [phone] Gaudencio Lewis MD [address] [place] [address] [address] [place], [place] [phone] Return in about 6 months (around 02/15/2025). documented as of this encounter Visit Diagnoses Not on filedocumented in this encounter Care Teams Grain Thresher Relationship Specialty Start Date End Date Alvin Contreras DO [address] [place] [address] PCP - General Internal Medicine 06/19/17 documented as of this encounter
--- OUTSIDE RECORDS SUMMARY | 2024-12-29 12:31 | XMS_ITS | Encounter Summary ---
Author Organization [facility] Address [address] [address] Care Team Providers Care Sales Assistant Displays Name Role Phone Alvin Contreras DO Primary Care Provider [phone] Bhavik Justin MD Unavailable [phone] Nanda Mustafa DO Unavailable [phone] Alvin Contreras DO Primary Care Provider [phone] Encounter Details Date Type Department Care Team (Late st Contact Info) Description 02/24/2024 Orders Only PHYLLIS JUDAH [address] [facility] [address] [place] [phone] Geoff Joshua ARRT Social History Tobacco Use [...] on filedocumented in this encounter Care Teams Sales Assistant Displays Relationship Specialty Start Date End Date Alvin Contreras DO PCP - General Internal Medicine 03/30/23 09/18/24 Alvin Contreras DO [address] [facility] [address] PCP - General Internal Medicine 09/19/24 Bhavik Justin MD [address] [address] Referring Physician Neuropsychology 02/22/24 Nanda Mustafa DO [address] [place] [address] Referring Physician Neurology 04/05/24 documented as of this encounter
--- OUTSIDE RECORDS SUMMARY | 2024-12-29 12:31 | XMS_ITS | Encounter Summary ---
Author Organization [facility] Address [address] [place] [address] Care Team Providers Care Clay House Worker Name Role Phone Alvin Contreras DO Primary Care Provider [phone] Source Comments In the event this information is protected by the Federal Confidentiality of Alcohol and Drug AbusePatient Records regulations: The Federal rules restrict any use of the information to criminally investigate or prosecute any alcohol or drug abuse patient.[facility] Encounter Details Date Type Department Care Team (Late st Contact Info) Description 11/03/2024 [place] [address] Provider, Ccf Actionable Imaging Result Notification Patient [...] is lower risk 4 01/13/2023 Data from: https://www.neighborhoodatlas.medicine.[facility].edu/. Last address used for calculation [address] [place] [address] 01/13/2023 Sex and Gender Information Value Date [...] 2:20 PM EST Office Visit Endocrinology [address] [place] [address] Gaudencio Lewis MD [address] [place] [address] [place] [address] Return in about 6 months (around 02/15/2025). documented as of this encounter Visit Diagnoses Not on filedocumented in this encounter Care Teams Clay House Worker Relationship Specialty Start Date End Date Alvin Contreras DO [address] [place] [address] PCP - General Internal Medicine 06/19/17 documented as of this encounter
--- OUTSIDE RECORDS SUMMARY | 2024-12-29 12:31 | XMS_ITS | Clinical Summary ---
Author Organization [facility] Address [address] [place] [address] Care Team Providers Care Center Director Name Role Phone Bhavik Justin MD Unavailable [phone] Nanda Mustafa DO Unavailable [phone] Alvin Contreras DO Primary Care Provider [phone] Allergies Active Allergy Reactions Criticality Noted Date [...] Screening 02/12/2025 FIT-DNA 02/12/2025 02/12/2022, 11/08/[address] [address] [place] [address] [employer] [phone] Care Teams Center Director Relationship Specialty Start Date End Date Alvin Contreras DO [address] [place] [address] PCP - General Internal Medicine 09/19/24 Bhavik Justin MD [address] [address] Referring Physician Neuropsychology 02/22/24 Nanda Mustafa DO [address] [place] [address] Referring Physician Neurology 04/05/24
--- OUTSIDE RECORDS SUMMARY | 2024-12-29 12:31 | XMS_ITS | Encounter Summary ---
Author Organization [facility] Address [address] [place] [address] Care Team Providers Care Bright Cutter Name Role Phone Alvin Contreras Primary Care Provider [phone] Source Comments In the event this information is protected by the Federal Confidentiality of Alcohol and Drug AbusePatient Records regulations: The Federal rules restrict any use of the information to criminally investigate or prosecute any alcohol or drug abuse patient.[facility] Encounter Details Date Type Department Care Team (Late st Contact Info) Description 08/23/2024 Patient Msg Endocrinology [address] [place] [place] [phone] Provider, Cckristina Appontment Rescheduled Social History Tobacco Use Types Packs/Day Years Used Date Smoking Tobacco: Never Smokeless Tobacco: Never PHQ-2 Answer Date Recorded PHQ-2 score 0 06/30/2019 Area Deprivation Index Answer Date Mumtaz rded National Score (1-100), lower number is lower ri sk 60 01/13/2023 State Score (1-10), lower number is lower risk 4 01/13/2023 Data from: https://www.neighborhoodatlas.medicine.[facility].edu/. Last address used for calculation [address] [place] [address] 01/13/2023 Sex and Gender Information Value Date [...] 2:20 PM EST Office Visit Endocrinology [address] [place] [address] Gaudencio Lewis MD [address] [place] [address] [address] [place], [place] [phone] Return in about 6 months (around 02/15/2025). documented as of this encounter Visit Diagnoses Not on filedocumented in this encounter Care Teams Bright Cutter Relationship Specialty Start Date End Date Alvin Contreras DO [address] [place] [address] PCP - General Internal Medicine 06/19/17 documented as of this encounter
--- OUTSIDE RECORDS SUMMARY | 2024-12-29 12:32 | XMS_ITS | Clinical Summary ---
Author Organization [employer] [facility] tem Address [id number] [address] [place] [address] Care Team Providers Care Hematology Nurse Educator Name Role Phone Alvin Contreras DO Primary Care Provider [phone] Allergies Active Allergy Reactions Criticality Noted Date [...] file Insurance MEDICARE [employer] [place] [id number] Care Teams Hematology Nurse Educator Relationship Specialty Start Date End Date Alvin Contreras DO [facility] [place] [address] PCP - General 12/15/17
--- OUTSIDE RECORDS SUMMARY | 2024-12-29 12:32 | XMS_ITS | Patient Health Record ---
Author Organization [facility] in [place] Address [address] [place] [address] Care Team Providers Care Mixer Runner Name Role Phone Alvin Contreras DO Primary Care Provider Unavaila Gomez Strickland Unavailable [phone] Amy Dvain Unavailable [phone] Allergies No Known Allergies Results Component Value Reference Range Notes XR ankle RT min 3V (Not yet reviewed by provider) Interpretation: Performing Lab: Notes/Report: Source Facility: [place] [address] XRay Report Signed Patient: BANG SHARMA MR#: [id number] : 1950 Acct:[id number] Age/Sex: 73 / M ADM Date: 12/30/23 Loc: EC Attending Dr: Gomez Schneider D.P.M. Ordering Physician: Gomez Schneider D.P.M. Date of Service: 12/30/23 Procedure(s): XR ankle RT min 3V Accession Number(s): [id number] cc: Alvin Contreras D.O.; Gomez Schneider D.P.M. [place] [id number] Patient Name: BANG SHARMA MRN: [id number] date: 1950 Sex: M Assigned Patient Location: EC Current Patient Location: Accession/Order Number: [id number] Exam Date: 12/30/2023 10:40 Report Date: 01/01/2024 [...] M.D. Signed By: 01/01/24434 DD/ 2 TD/TT: Software Technical Lead: [place] [address] XRay Report Signed Patient: MICHELLE SHARMA MR#: [id number] : 1950 Acct:[id number] Age/Sex: 73 / M ADM Date: 12/30/23 Loc: [facility] Attending Dr: Gomez Schneider D.P.M. Ordering Physician: Gomez Schneider D.P.M. Date of Service: 12/30/23 Procedure(s): XR ankle RT min 3V Accession Number(s): [id number] cc: Alvin Contreras; Gomez Schneider D.P.M. [place] [id number] Patient Name: BANG SHARMA MRN: [id number] date: 1950 Sex: M Assigned Patient Location: EC Current Patient Location: Accession/Order Numb er: [id number] Exam Date: 12/30/2023 10:40 Report Date: 01/01/2024 [...] M.D. Signed By: 01/01/245 DD/ 2 TD/TT: Software Technical Lead: Reason For Referral Reason evaluation and treat ment -- see attached order Diagnosis 1 Primary osteoarthrit is, right ankle and foot (M19.071) Referral Organization [facility] ([facility]) Referring Provider First Name Gomez Referring Provider Last Name [facility] Referring Provider Speciality Podiatry Referred Provider [facility], Physical Therap y Referred Provider Specialty Physical Med icine and Rehabilitation Referral Priority Routine Reason Referal to neurology Diagnosis 1 Primary osteoarthrit is, right ankle and foot (M19.071) Diagnosis 2 Right ankle pain (M2 5.571) Referral Organization [facility] ([facility]) Referring Provider First Name Gomez Referring Provider Last Name [facility] Referring Provider Speciality Podiatry Referred Provider Specialty Neurology Referral Priority Routine Reason Physical Therapy ref erral Diagnosis 1 Primary osteoarthrit is, right ankle and foot (M19.071) Referral Organization [facility] ([facility]) Referring Provider First Name Gomez Referring Provider Last Name [facility] Referring Provider Speciality Podiatry Referred Provider [...] nts Arexvy Unknown 03/03/2023 Administered Flu, Fluad (65454) 65 yrs+, single-dose syringe (2716-4403) Unknown 12/16/2022 Administered Pneumococcal (Pneumovax 23) Unknown [...] Problem Status W/U Status Risk Notes Problem 29740405 Chronic obstructive pulmonary disease, unspecified (J44.9) Active confirmed Problem 419135390 Obesity, unspecified (E66.9) Active confirmed Problem 6148666480830003 Primary osteoarthritis , right ankle and foot (M19.071) Active confirmed Problem Obstructive sleep apnea syndrome (55535641) REMY (obstructive sleep apnea) (G47.33) Active confirmed Problem Arthralgia of the ankle and/or foot (313717171) Right ankle pain (M25.571) Active confirmed Problem Atrial fibrillation (17703134) PAF (paroxysmal atrial fibrillation) (I48.0) Active confirmed Problem History of asbestos exposure (056357823) History of asbestos exposure (Z77.090) Active confirmed Problem Body mass index 30.00 to 34.99 (775154175181931) Body mass index [BMI] 34.0-34.9, adult (Z68.34) Active confirmed Problem History of COVID-19 (214350802112655761) History of COVID-19 (Z86.16) Active confirmed Vital Signs Heart Rate 71 /min 04/05/2024 Temperature 96.9 degrees Fahrenheit 04/05/2024 Respiratory Rate 18 /min 12/30/2023 Oximetry 99 % 04/05/2024 Height 75 in 04/05/2024 Weight 260 lbs 02/10/2024 BMI 32.49 kg/m2 02/10/2024 Encounters Encounter Location Date Provider Diagnosis [facility] ([facility] [address] [place] [address] [place] [address] 12/30/2023 Gomez Schneider Primary osteoarthritis, right ankle and foot M19.071 [facility] ([facility]) [address] [place] [address] [place] [address] 02/10/2024 Gomez Schneider [facility] ([facility]) [address] [place] [address] [place] [address] 02/[facility] ([facility] [address] [place] [address] [place] [address] 02/10/2024 [facility] [place] [address] [place] [address] 11/15/2024 Davin Reyes [facility] ([facility]) [address] [place] [address] [place] [address] 12/30/2023 Gomez Schneider Primary osteoarthritis, right ankle and foot M19.071 ; Other specified joint disorders, right ankle and foot M25.871 and Right ankle pain M25.571 [facility] ([facility]) [address] [place] [address] [place] [address] 02/10/2024 Gomez Schneider Primary osteoarthritis, right ankle and foot M19.071 and Other specified joint disorders, right ankle and foot M25.871 [facility] ([facility]) [address] [place] [address] [place] [address] 04/05/2024 Gomez Schneider Primary osteoarthritis, right ankle and foot M19.071 ; Posterior tibial tendinitis, right leg M76.821 and Ingrowing nail L60.0 Assessments Encounter Date Diagnosis (ICD Code) Assessment Notes Treatment Notes Treatment Clinical Notes Section Notes 02/10/2024 Primary osteoarthritis , right ankle and [...] right ankle and foot (ICD-10 - M25.871) 12/30/2023 Primary osteoarthritis , right ankle and foot (ICD-10 - M19.071) 12/30/2023 Right ankle pain (ICD-10 - M25.571) 04/05/2024 Ingrowing nail (ICD-10 - L60.0) The toenail was debrided sharply without incident into patient's satisfaction. Dried subungual hematoma was evacuated. No signs of infection. Plan Of Treatment Pending Test Test Name Order Date XR Ankle RT (3 views) * (161) 12/30/2023 XR ankle RT min 3V 01/01/2024 Insurance Providers Payer Name Payer Address Payer Phone Subscriber Number Group Number Insured Name Patient Relationship to Insured Coverage Start Date Coverage End Date MEDICARE RAILROAD [address] [address] [place], [place] [id number] Bang Sharma Self - patient is the insured 5 [employer] [address] [address] [place], [place] [id number] Bang Sharma Self - patient is [...]
--- OUTSIDE RECORDS SUMMARY | 2024-12-29 12:32 | XMS_ITS | Encounter Summary ---
Author Organization [facility] Address [address] [place] [address] Care Team Providers Care Network Solutions Architect Name Role Phone Alvin Contreras DO Primary Care Provider [phone] Source Comments In the event this information is protected by the Federal Confidentiality of Alcohol and Drug AbusePatient Records regulations: The Federal rules restrict any use of the information to criminally investigate or prosecute any alcohol or drug abuse patient.[facility] Encounter Details Date Type Department Care Team (Late st Contact Info) Description 12/04/2022 Patient Msg Orth and Rheum [place] [address] [place] [address] Provider, [facility] Appointment Rescheduled Social History Tobacco Use Types Packs/Day Years Used Date Smoking Tobacco: Never Smokeless Tobacco: Never PHQ-2 Answer Date Recorded PHQ-2 score 0 06/30/2019 Area Deprivation Index Answer Date Mumtaz rded National Score (1-100), lower number is lower ri sk 60 05/18/2022 State Score (1-10), lower number is lower risk N ot on file 05/18/2022 Data from: https://www.neighborhoodatlas.medicine.[employer].edu/. Last address used for calculation [address] [place] [address] 05/18/2022 Sex and Gender Information Value Date [...] 2:20 PM EST Office Visit Endocrinology [address] [place] [address] Gaudencio Lewis MD [address] [place] [address] [place] [address] Return in about 6 months (around 02/15/2025). documented as of this encounter Visit Diagnoses Not on filedocumented in this encounter Care Teams Network Solutions Architect Relationship Specialty Start Date End Date Alvin Contreras DO [address] [place] [address] PCP - General Internal Medicine 06/19/17 documented as of this encounter
--- OUTSIDE RECORDS SUMMARY | 2024-12-29 12:32 | XMS_ITS | Clinical Summary ---
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 Encounters Date Type Department Care Team Description 11/29/2024 2:20 PM EDT [facility] Endocrine Surgery [address] [place], [place] [phone] Geneva Samayoa MD Hyperparathyroidism (HCC) (Primary Dx) 11/28/2024 Travel 11/23/2024 Telephone Endocrine Surgery [address] [place] [address] Geneva Samayoa MD Outside Lab Results 11/23/2024 Orders Only Endocrine Surgery [address] [place], [place] [phone] Geneva Samayoa MD 11/21/2024 Get Medical Advice Endocrine Surgery [address] [place] [address] Geneva Samayoa MD CALCIUM TOTAL BLD, Parathyroid hormone (PTH intact), Vitamin D, 25-hydroxy 11/18/2024 Telephone Endocrine Surgery [address] [place] [address] Geneva Samayoa MD Post Op 11/18/2024 Orders Only Endocrine Surgery [address] [place] [address] Geneva Samayoa MD Hyperparathyroidism (HCC) (Primary Dx) 11/14/2024 7:30 AM EDT - 11/14/2024 9:00 AM EDT Surgery [facility] Surgery [address] [place] [address] Geneva Samayoa MD PARATHYROIDECTOMY 11/14/2024 7:23 AM EDT Anesthesia Event [facility] Surgery [address] [place] [address] Sidney Larsen III, MD 11/14/2024 6:27 AM EDT - 11/15/2024 8:46 [place] [address] Geneva Samayoa MD Hyperparathyroidism (HCC) [E21.3] Discharge Disposition: Home 11/03/2024 Patient Msg INITIAL DEPARTMENT [facility] Provider, [facility]cf Actionable Imaging Result Notification Patient Outreach 11/01/2024 1:18 PM EDT - 11/01/2024 11:59 PM EDT Hospital Encounter Molecular Imaging [address] [place] [address] Hyperparathyroidism (HCC) [E21.3] Discharge Disposition: Home 11/01/2024 11:15 AM EDT Procedure Cardiology [address] [place] [address] 11/01/2024 10:05 AM EDT - 11/01/2024 1:17 PM EDT Hospital Encounter Molecular Imaging [address] [place], [place] [phone] Discharge Disposition: Home 11/01/2024 9:00 AM EDT PAT Pre Anesthesia [address] [place] [id number], [place] Chondrosarcoma (HCC) (Primary Dx); REMY (obstructive sleep apnea); Essential hypertension; Class 1 obesity due to excess calories without serious comorbidity with body mass index (BMI) of 34.0 to 34.9 in adult; Paroxysmal atrial fibrillation (HCC); SVT (supraventricular tachycardia) (HCC) 11/01/2024 Travel 10/19/2024 Travel 10/07/2024 Patient Msg Endocrine Surgery [address] [place] [address] Provider, Ccf Pre-op Appointments 10/04/2024 Telephone Endocrine Surgery [address] [place] [phone] Geneva Samayoa MD [place] Parathyroid Request from [...] is lower risk 4 01/13/2023 Data from: https://www.neighborhoodatlas.[facility]/. Last address used for calculation [address] [...] PM EST Office Visit Endocrinology [address] [place] [address] Gaudencio Lewis MD [address] [place] [address] [place] [address] Return in about 6 months [...] Completed 03/03/2023 Medical Devices Implanted Type Area Personnel Interviewer Device Identifier Shelf Expiration Date Model / Serial / Lot Graft Enhance Demineralized Cortical Fiber Bone Allograft Dehydrate 2.5ml - [id number] Implanted:Qty: 1 on 08/27/2017 at [facility] Bone MTF 07/28/2018 [id number] / / [id number] Graft Cancellous Chips Bone Void Freeze Dry 30ml (1.7-10mm) - [id number] Implanted:Qty: 1 on 08/27/2017 at [facility] Bone MTF 05/30/2020 [id number] / / [id number] Graft Dbx Bone Void Allograft Freeze Dried Putty 1ml - [id number] Implanted:Qty: 1 on 08/27/2017 at [facility] Cement / Putty MTF 01/27/2019 [id number] / [id number] / Tibial Nail Implanted:Qty: 1 on 08/27/2017 at [facility] Implant OTHER 11/27/2021 [id number] / / [id number] Carbofix Titaniumscrew Implanted:Qty: 1 on 08/27/2017 at [facility] Implant OTHER [id number] / / Carbofix Titanium Screw Implanted:Qty: 1 on 08/27/2017 at [facility] Implant OTHER [id number] / / Carbofix Titanium Screw Implanted:Qty: 1 on 08/27/2017 at [facility] Implant OTHER [id number] / / Carbofix Titanium Screw Implanted:Qty: 1 on 08/27/2017 at [facility] Implant OTHER [id number] / / Carbofix Titanium Screw Implanted:Qty: 1 on 08/27/2017 at [facility] Implant OTHER [id number] / / Procedures Procedure Name Priority [...] 1 :35 PM EDT Hyperparathyroidis m (HCC) from Last 3 Months Results * EXTERNAL [...] us Tiffany Sanchez MD LABORATORY Final Result [facility] [address] [place] [address], * CALCIUM, TOTAL (11/15/2024 4:01 AM EDT) Calcium, Total 9.2 8.5 - 10.2 mg/dL 11/15/2024 5:27 AM EDT [facility] Blood BLOOD SPECIMEN / Unknown Venipuncture / Unknown 11/15/2024 4:01 AM EDT 11/15/2024 4:38 AM EDT Tiffany Sanchez MD LABORATORY Final Result Performing Organization Address [facility] Co de Phone Number [facility] [address] [place] [address], * ECG COMPLETE (11/14/2024 11:35 AM EDT) Ventricular Rate 64 BPM [facility] Atrial Rate 64 BPM [facility] P-R Interval 164 ms [facility] QRS Duration 192 ms [facility] QT Interval 488 ms [facility] QTC Calculation (Bazett) 503 ms [facility] Calculated P [place] 73 degrees [facility] Calculated R [place] -76 degrees [facility] Calculated T [place] 19 degrees [facility] 11/14/2024 11:3 5 AM EDT Impressions [facility] - 11/14/2024 12:20 PM EDT Normal sinus rhythm Right bundle branch block Left anterior fascicular block Bifascicular block Septal infarct , age undetermined Abnormal ECG No previous ECGs available Confirmed by KEON MAGAÑA MD ([id number]) on 11/14/2024 12:20:23 PM Narrative [facility] - 11/14/2024 12:20 PM EDT NAME : BANG SHARMA PID : [id number] : 1950 Gender : Male Race : ORD : [id number] Procedure Date : Nov 14 2024 11:35:23 Edit Date : Nov 14 2024 12:20:28 Diagnosis: Normal sinus rhythm Right bundle branch block Left anterior fascicular block Bifascicular block Septal infarct , age undetermined Abnormal ECG No previous ECGs available Confirmed by KEON MAGAÑA MD ([id number]) on 11/14/2024 12:20:23 PM Test Reason : Post-OP Location : 1 : [facility] 021 Overread By : KEON MAGAÑA MD Edited By : KEON MAGAÑA MD Referred By : , Acquired by : DUONG KUMAR us Tiffany Sanchez MD EKG Final Result Performing Organization Address [facility] Co de Phone Number [facility] [address] [place] [address] * (ABNORMAL) INTRAOPERATIVE PTH (11/14/2024 8:10 AM EDT) Only the most recent of2 resultswithin the time period is included. Intraoperative PTH 73(H) 15 - 65 pg/mL 11/14/2024 9:11 AM EDT [facility] Blood BLOOD SPECIMEN / Unknown 11/14/2024 8:10 AM EDT 11/14/2024 8:50 AM EDT Comment:Pre-op diagnosis: Hyperparathyroidism (HCC) [E21.3] us Geneva Samayoa MD LABORATORY Final Res ult Performing Organization Address [facility] Co de Phone Number [facility] [address] [place] [address], * SURGICAL PATHOLOGY (11/14/2024 7:55 AM EDT) Case Report Surgical Pathology Report Case: [id number] Authorizing Provider: Geneva Samayoa MD Collected: 11/14/2024 07:55 AM Ordering Location: [facility] Surgery Received: 11/14/2024 08:04 AM Pathologist: Deysi Snigh MD Intraop: Ella Johnson MD Specimens: A) - Parathyroid Gland, Right, right upper [id number] B) - Parathyroid Gland, Left, Left upper 12x9x3 C) - Parathyroid Gland, Right, right upper [id number] 11/16/2024 11:04 AM EDT [facility] FINAL DIAGNOSIS A, C. Right upper parathyroid, excision: - Hypercellular parathyroid. B. Left upper parathyroid, excision: - Hypercellular parathyroid. SHANA November 16, 2024 11/16/2024 11:04 AM EDT [facility] at 1104 EDT Gross Description A. Parathyroid Gland, Right FSA1: Received fresh for frozen section is one piece of brown soft tissue weighing 0.590 grams and measuring 2.2 x 0.9 x 0.6 cm. A insurance claims representative section is submitted for frozen section in FSA1. Gross examination performed at [facility], [address], [place] [address] CLIA# [id number] B. Parathyroid Gland, Left FSB1: Received fresh for frozen section is one piece of brown soft tissue weighing 0.245 grams and measuring 0.9 x 0.9 x 0.3 cm. The tissue is entirely submitted for frozen section in FSB1. Gross examination performed at [facility], [address], [place] [address] CLIA# [id number] C. Parathyroid Gland, Right Labeled: Right upper 31 x 18 x 10 Received: In formalin Size: 2.8 x 1.5 x 0.9 cm Weight: 1640 mg Cassette code: Representatively in C1 (serially section) Gross examination performed at [facility], [address] [place] [address] MSL/MADIHA 11/14/24 12:25 PM 11/16/2024 11:04 AM EDT [facility] Intraoperative Diagnosis A. Parathyroid Gland, Right FSA1: Hypercellular parathyroid tissue (Ella Johnson MD) Intraoperative diagnosis performed at [facility], [address], [place] [id number] CLIA# [id number] B. Parathyroid Gland, Left FSB1: Hypercellular parathyroid tissue (Ella Johnson MD) Intraoperative diagnosis performed at [facility], [address], [place] [address] CLIA# [id number] 11/16/2024 11:04 AM EDT [facility] Clinical History Pre-op diagnosis: Hyperparathyroidis m (HCC) [E21.3] 11/16/2024 11:04 AM EDT [facility] Performing Lab Diagnostic interpretation performed at: [facility], [facility], [address] [address] CLIA# [id number] Regional Administrative Assistant: Herson Cuenca MD 11/16/2024 11:04 AM EDT [facility] Disclaimer Laboratory Developed Test (LDT) Disclaimer: Performance characteristics of immunohistochemica l, immunofluorescent, and chromogenic in-situ hybridization tests have been determined by the performing laboratory within [facility]'s [facility] Medicine Department ([facility], [facility], [facility], [facility], [facility], [facility], or [facility]) in a manner consistent with CLIA requirements. One or more of these tests may not have been cleared or approved by the FDA. [facility] is regulated under CLIA as qualified to perform high-complexity testing. These tests are used for clinical purposes. These should not be regarded as investigational or for research. Positive and negative controls stain appropriately. 11/16/2024 11:04 AM EDT [facility] Tissue PARATHYROID STRUCTURE / Unknown [...] Geneva Samayoa MD SURGICAL PATHOLOGY Final Result [facility] [address] [facility] [address] [place] [address], [place] [facility] [address] [place] [phone], [place] * Airway (11/14/2024 7:32 AM EDT) Narrative Nanda Hawkins APRN.BASKET PERSON - 11/14/2024 7:32 AM EDT Nanda Hawkins APRN.BASKET PERSON 11/14/2024 7:46 AM Airway General Information Procedure Start Time/Medication Administration: 11/14/2024 7:32 AM Procedure End Time: 11/14/2024 7:32 AM Patient location during procedure: OR Staffing BASKET PERSON: Nanda Hawkins APRN.BASKET PERSON Performed by: LORE Indications and Patient Condition Indications for airway management: anesthesia Preoxygenated: yes anesthesia circuit Method: sleep Difficult Mask: No Final Airway Details Final airway type: endotracheal airway Final Endotracheal Airway: ETT Cuffed: yes Successful intubation technique: video laryngoscopy Devices used: [employer] Endotracheal tube insertion site: oral Blade size: [...] be communicated with the ordering provider via [employer] staff message or phone message by [facility] within 2 business days of report finalization. --END OF FINDING-- Tile Applicator: BARBARA Transcribe Date/Time: Nov 02 2024 7:32A [...] Images: No additional findings. Procedure Note Provider, [facility] - 11/02/2024 * * *Final Report* * * DATE OF EXAM: Nov 01 2024 2:25PM [facility] 0089 - [place] PARATHYROID W SPECT/CT / [...] be communicated with the ordering provider via [employer] staff message or phone message by [facility] within 2 business days of report finalization. --END OF FINDING-- Tile Applicator: BARBARA Transcribe Date/Time: Nov 02 2024 7:32A [...] [facility] Calculated P [place] 85 degrees [facility] Calculated R [place] -69 degrees [facility] Calculated T [place] 33 degrees [facility] 11/01/2024 11:5 5 AM EDT Impressions [facility] - 12/08/2024 9:49 AM EDT SINUS BRADYCARDIA LEFT AXIS DEVIATION COMPLETE RIGHT BUNDLE BRANCH BLOCK ABNORMAL ECG Confirmed by BOBBY TILLEY, ENRIQUE ([id number]) on 12/08/2024 9:49:14 AM Narrative [facility] - 12/08/2024 9:49 AM EDT NAME : BANG SHARMA PID : [id number] : 1950 Gender : Male Race : ORD : [id number] Procedure Date : Nov 01 2024 11:55:05 Edit Date : Dec 08 2024 09:49:21 Diagnosis: SINUS BRADYCARDIA LEFT AXIS DEVIATION COMPLETE RIGHT BUNDLE BRANCH BLOCK ABNORMAL ECG Confirmed by ENRIQUE ROSALES MD ([id number]) on 12/08/2024 9:49:14 AM Test Reason : Location : 314 : J14 J14 Overread By : ENRIQUE ROSALES MD Edited By : ENRIQUE ROSALES MD Referred By : GENEVA SAMAYOA Acquired by : JENIFFER MCCAULEY us Geneva Samayoa MD EKG Final Res ult Performing Organization Address [facility] Co de Phone Number [facility] [address] [place] [phone] * (ABNORMAL) CALCIUM, IONIZED (11/01/2024 11:24 AM EDT) Normalized Calcium 1.44(H) 1.08 - 1.30 mmol/L 11/01/2024 2:08 PM EDT [facility] Calcium Ionized, Whole Blood 1.45(H) 1.08 - 1.30 mmol/L 11/01/2024 2:08 PM EDT [facility] Blood BLOOD SPECIMEN / Unknown Venipuncture / Unknown 11/01/2024 11:24 AM EDT 11/01/2024 11:24 AM EDT us Geneva Samayoa MD LABORATORY Final Res ult [facility] [address] [place] [address], * COMPLETE BLOOD COUNT AND DIFFERENTIAL (11/01/2024 11:24 AM EDT) WBC 5.86 3.70 - 11.00 k/uL 11/01/2024 12:25 PM EDT [facility] RBC 4.58 4.20 - 6.00 m/uL 11/01/2024 12:25 PM EDT [facility] Hemoglobin 14.3 13.0 - 17.0 g/dL 11/01/2024 12:25 PM EDT [facility] Hematocrit 44.3 39.0 - 51.0 % 11/01/2024 12:25 PM EDT [facility] MCV 96.7 80.0 - 100.0 fL 11/01/2024 12:25 PM EDT [facility] MCH 31.2 26.0 - 34.0 pg 11/01/2024 12:25 PM EDT [facility] MCHC 32.3 30.5 - 36.0 g/dL 11/01/2024 12:25 PM EDT [facility] RDW-CV 13.6 11.5 - 15.0 % 11/01/2024 12:25 PM EDT [facility] Platelet Count 307 150 - 400 k/uL 11/01/2024 12:25 PM EDT [facility] MPV 9.1 9.0 - 12.7 fL 11/01/2024 12:25 PM EDT [facility] Neutrophils % 59.7 % 11/01/2024 12:25 PM EDT [facility] Abs Neut 3.50 1.45 - 7.50 k/uL 11/01/2024 12:25 PM EDT [facility] Lymphocytes % 25.3 % 11/01/2024 12:25 PM EDT [facility] Abs Lymph 1.48 1.00 - 4.00 k/uL 11/01/2024 12:25 PM EDT [facility] Monocytes % 11.9 % 11/01/2024 12:25 PM EDT [facility] Abs Motley 0.70 <0.87 k/uL 11/01/2024 12:25 PM EDT [facility] Eosinophils % 1.9 % 11/01/2024 12:25 PM EDT [facility] Abs Eosin 0.11 <0.46 k/uL 11/01/2024 12:25 PM EDT [facility] Basophils % 0.9 % 11/01/2024 12:25 PM EDT [facility] Abs Baso 0.05 <0.11 k/uL 11/01/2024 12:25 PM EDT [facility] Immature Granulocytes % 0.3 % 11/01/2024 12:25 PM EDT [facility] Abs Immature Gran <0.03 <0.10 k/uL 11/01/ 025 12:25 PM EDT [facility] NRBC 0.0 /100 WBC 11/01/2024 12:25 PM EDT [facility] Absolute nRBC <0.01 <0.01 k/uL 11/01/2024 12:25 PM EDT [facility] Diff Type Auto 11/01/2024 12:25 PM EDT [facility] Blood BLOOD SPECIMEN / Unknown Venipuncture / Unknown 11/01/2024 11:24 AM EDT 11/01/2024 11:24 AM EDT us Geneva Samayoa MD LABORATORY Final Res ult [facility] [address] [place] [address], * (ABNORMAL) BASIC METABOLIC PANEL (11/01/2024 11:24 AM EDT) [facility] Glucose 108(H) 74 - 99 mg/dL 11/01/2024 2:16 PM EDT [facility] Comment: The [place] Diabetes Association (ADA) provides guidance for cutoff [...] Standards of Medical Care in Diabetes 2016, [place] [employer]. Diabetes Care. 2016.39(Suppl 1). BUN 18 9 - 24 mg/dL 11/01/2024 2:16 PM EDT [facility] Creatinine 0.86 0.73 - 1.22 mg/dL 11/01/2024 2:16 PM EDT [facility] Sodium 140 136 - 144 mmol/L 11/01/2024 2:16 PM EDT [facility] Potassium 4.5 3.7 - 5.1 mmol/L 11/01/2024 2:16 PM EDT [facility] Chloride 105 98 - 107 mmol/L 11/01/2024 2:16 PM EDT [facility] CO2 26 22 - 30 mmol/L 11/01/2024 2:16 PM EDT [facility] Anion Gap 9 8 - 15 mmol/L 11/01/2024 2:16 PM EDT [facility] Calcium, Total 11.0(H) 8.5 - 10.2 mg/dL 11/01/2024 2:16 PM EDT [facility] Estimated Glomerular Filtration Rate 90 >=60 mL/min/1. 73m 11/01/2024 2:16 PM EDT [facility] Comment:Estimated Glomerular Filtration Rate (eGFR) [...] Geneva Samayoa MD LABORATORY Final Res ult [facility] [address] [address], * (ABNORMAL) CREATININE, 24 HOUR URINE (10/19/2024 1:36 PM EDT) Creatinine 24 hr Ur 2.006(H) 1.000 - 2.000 g/24 hr 10/20/2024 5:25 PM EDT [facility] Period 24 hr 10/20/2024 5:25 PM EDT [facility] Volume 1,750 mL 10/20/2024 5:25 PM EDT [facility] Urine URINE SPECIMEN / Unknown Non Blood / Unknown 10/19/2024 1:36 PM EDT 10/19/2024 1:36 PM EDT Geneva Samayoa MD LABORATORY Final Res ult [facility] [address] [place] [address], [facility] [address] [place] [address] * (ABNORMAL) CALCIUM, 24 HR URINE (10/19/2024 1:35 PM EDT) Calcium, 24 Hr Urine 357.0(H) 100.0 - 300.0 mg/24 hr 10/20/2024 7:10 PM EDT [facility] Period 24 hr 10/20/2024 7:10 PM EDT [facility] Volume 1,750 mL 10/20/2024 7:10 PM EDT [facility] Urine URINE SPECIMEN / Unknown Non Blood / Unknown 10/19/2024 1:35 PM EDT 10/19/2024 1:35 PM EDT us Geneva Samayoa MD LABORATORY Final Res ult [facility] [address] [address], [facility] [address] [place] [phone] from Last 3 Months Insurance [address] [place] [address] MEDICARE [employer] MED[employer]RO[employer] Advance Directives Documents on File Type Date Recorded 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 [place] [address] PCP - General Internal Medicine 06/19/17
--- OUTSIDE RECORDS SUMMARY | 2024-12-29 12:32 | XMS_ITS | Encounter Summary ---
Author Organization [facility] Address [address] [place] [address] Care Team Providers Care Product Manager Name Role Phone Alvin Contreras DO Primary Care Provider [phone] Source Comments In the event this information is protected by the Federal Confidentiality of Alcohol and Drug AbusePatient Records regulations: The Federal rules restrict any use of the information to criminally investigate or prosecute any alcohol or drug abuse patient.[facility] Encounter Details Date Type Department Care Team (Late st Contact Info) Description 08/21/2017 Patient Msg Medical Records [address] [place] [address] Provider, [facility] Medical Education Program Social [...] 2:20 PM EST Office Visit Endocrinology [address] [place] [address] Gaudencio Lewis MD [address] [place] [address] [place], [place] [phone] Return in about 6 months (around 02/15/2025). documented as of this encounter Visit Diagnoses Not on filedocumented in this encounter Care Teams Product Manager Relationship Specialty Start Date End Date Alvin Contreras DO [address] [place] [address] PCP - General Internal Medicine 06/19/17 documented as of this encounter
--- OUTSIDE RECORDS SUMMARY | 2024-12-29 12:32 | XMS_ITS | Encounter Summary ---
Author Organization [facility] Address [address] [place] [address] Care Team Providers Care Sociology Instructor Name Role Phone Alvin Contreras DO Primary Care Provider [phone] Encounter Details Date Type Department Care Team (Late st Contact Info) Description 10/27/2024 Orders Only [facility] [address] [place] [address] Alpesh Jenkins MD [address] [place] [address] Social History Tobacco Use Types [...] Alpesh Jenkins MD CV IMPLANTABLE CARDIAC DEVICE SC OCEDURES Final Result documented in this encounter Visit Diagnoses Not on filedocumented in this encounter Care Teams Sociology Instructor Relationship Specialty Start Date End Date Alvin Contreras DO [address] [place] [phone] PCP - General 05/08/22 documented as of this encounter
--- OUTSIDE RECORDS SUMMARY | 2024-12-29 12:32 | XMS_ITS | Clinical Summary ---
Author Organization [facility] Address [address] [place] [address], [address] [place] [address] Care Team Providers Care Agronomy Teacher Name Role Phone Unavailable Primary Care Provider [...]
--- OUTSIDE RECORDS SUMMARY | 2024-12-29 12:32 | XMS_ITS | Clinical Summary ---
Author Organization [facility] Address [address] [place] [address] Care Team Providers Care Well Logging Mud Analysis Captain Name Role Phone Alvin Contreras DO Primary Care Provider [phone] Allergies Active Allergy Reactions Criticality Noted Date [...] (05/08/2022): Added automatically from request for surgery [id number] Last Assessment & Plan: H/o, radical resection [...] Description 10/27/2024 3:50 AM EDT Ancillary Procedure [facility] Vascular [facility] [address] [place] [id number] Awareness of heartbeats 10/27/2024 Orders Only [facility] Vascular [facility] [address] [place] [address] Alpesh Jenkins MD 10/25/2024 2:15 PM EDT Office Visit [facility] Heart [facility] [address] [place] [address] Alpesh Jenkins MD PAF (paroxysmal atrial fibrillation) (CMS/HCC) (Primary Dx) from Last 3 Months Family [...] this topic Medical Devices Implanted Type Area [place] Device Identifier Shelf Expiration Date Model / Serial / Lot Monitor,Cardi ac,Lux,Dxii+I cm - [id number] - [id number] Implanted:Qty : 1 on 12/09/2023 by Alpesh Jenkins MD at [facility] Implantable Loop Recorder Left: Chest Group 47 03/31/2025 [id number] / [id number] / Procedures Procedure Name Priority Date/Time Associated Diagnosis Comments CARDIAC DEVICE CHECK CHECK - REMOTE Routine 11/15/2024 10:30 AM EDT Awareness of heartbeats CARDIAC DEVICE CHECK - REMOTE - LOOP RECORDER (ILR) Routine 10/27/2024 12:00 AM EDT from Last 3 Months Results * CARDIAC DEVICE CHECK - REMOTE - LOOP RECORDER (ILR) (11/15/2024 10:30 AM EDT) Alpesh Jenkins MD CV IMPLANTABLE CARDIAC DEVICE AK OCEDURES Final Result CPACS * Cardiac device check - Remote loop recorder (ILR) (10/27/2024 12:00 AM EDT) Anatomical Region Laterality Modality Other 10/27/2024 Alpesh Jenkins MD CV IMPLANTABLE CARDIAC DEVICE AK OCEDURES Final Result from Last 3 Months [place] [address] GENERIC OTHER [place] [address] Care Teams Well Logging Mud Analysis Captain Relationship Specialty Start Date End Date Alvin Contreras DO [address] [place] [address] [place] [address] PCP - General 05/08/22
--- NOTE | 2024-12-29 12:34 | MR_ITS ---
[address] [address] Patient Name: BANG SHARMA MRN: [facility]:[id number] date: 1950 Sex: M Assigned Patient Location: MRI Current Patient Location: MRI Accession/Order Number: [id number] Exam Date: 12/29/2024 12:50 Report Date: 12/29/2024 15:45 At the request of: NELI LO DO Procedure: MR foot RT wo/w con MRI right forefoot with without contrast TECHNIQUE: Multiplanar T1 and T2-weighted imaging of the foot obtained without contrast. HISTORY: Right first toe cellulitis. COMPARISON:None SKIN MARKER: None BONY ALIGNMENT: Adequate BONE INFILTRATION:None BONY LESION: None BONE MARROW EDEMA: None TENDONS: Intact INTRINSIC MUSCLES: Normal signal PLANTAR PLATE: Intact ERVIN'S NEUROMA: None OSTEOMYELITIS No osteomyelitis SOFT TISSUES: Soft tissue edema of the right first toe. No discrete fluid collection. No pathologic enhancement. No abscess. MR/MR foot RT wo/w con Impression: Motion artifact degrading imaging. No osteomyelitis. Right first toe subcutaneous edema consistent with cellulitis. No abscess. Impression dictated by: Foreign Barreto M.D. 12/29/2024 3:45 PM Dictation Location: [place] [address] Electronically authenticated by: [id number] Y Date: 12/29/2024 15:45
--- OUTSIDE RECORDS SUMMARY | 2024-12-29 12:43 | XMS_ITS | CCD ---
Author Organization [facility] Team Providers Care Early Childhood Aide Classroom Name Role Phone PHYSICIAN, DEFAULT Unavailable Unavailable [...] Alvin Lo DO Primary Care Provider ALPESH DAVSI Referring Unavailable SUSANALPESH Referring Unavailable SUSANALPESH Referring Unavailable TEE NAGY Referring Unavailable SUSANALPESH Vazquez Referring Unavailable SUSANALPESH Vazquez Referring Unavailable SUSANALPESH Vazquez Attending Unavailable DREA LINO Attending Unavailable ALPESH DAVIS Attending Unavailable RAFAEL BYRNE Attending Unavailable ALPESH DAVIS Referring Unavailable SUSANALPESH Vazquez Referring Unavailable SUSANALPESH Vazquez Admitting Unavailable ALPESH DAVIS Attending Unavailable ALPESH DAVIS Referring Unavailable BALL, ALVIN E Primary Care Unavailable BUTLER, GENEVA MORALES Attending Unavailable BUTLER, GENEVA MORALES Admitting Unavailable DONALD, HERBER MALEAN Attending Unavailable BALL, ALVIN E Primary Care [...] Unavailable Ball DO, Alvin Primary Care Provider Alvin Lo DO Attending Provider [phone] Geneva Butler MD Attending Provider Provider, Outside Attending Provider Unavailable Foreign Torres DO Attending Provider Kathy Nguyen CMA Attending Provider Unavaila ble Allergies Allergy Classification Reported Allergen(s) Allergy Type Date of Onset Reaction(s) Facility (2 sources) meperidine Drug Allergy 4 [facility] Repository (11 sources) Penicillins; Translations: [PENICILLINS] Drug allergy (disorder) 2 AOF, Unknown Reaction [facility] Repository (4 sources) Penicillins Drug Allergy 4 [facility] (19 sources) Insects Extract; Translations: [INSECTS EXTRACT] Drug Allergy 1 Other: See Comments [facility] (7 sources) atorvastatin Drug Allergy 4 Unknown, Unknown Reaction [facility] (2 sources) Penicillin Drug Allergy Unknown [facility] Other (2 sources) Substance with penicillin structure and antibacterial mechanism of action (substance) Drug allergy Unknown [facility] Other (8 sources) Meperidine; Translations: [MEPERIDINE] Drug Allergy 8 [facility] (7 sources) Penicillins Drug Allergy 4 Hives, Rash, Other [facility] (12 sources) Penicillins Drug Allergy 4 Hives [facility] (1 source) carvedilol; Translations: [CARVEDILOL] Drug Allergy 3 [facility] Repository (1 source) Metoprolol; Translations: [METOPROLOL] Drug Allergy 3 [facility] Repository Medications Current Medications Medication Drug [...] Start: 08-02-2018 take 4 tablets by mo [facility] twice daily amLODIPine (NORVASC) 2.5 [...] 1 tablet by mouth three times daily ozwqnwy-fzseqfatl-kp tamin D3 500 mg-5 mcg (200 unit) [...] Active -Hx Entry Oral *Pick strength-form from [employer] for eRX* Mar, Active magnesium citrate 58.2 [...] 06-12-2022 Episodic Other aftercare (1 source) Other [facility] (current) drug therapy; Translations: [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] Onset: 02-12-2022 Episodic Other [...] WBC (Bld) 0.0 % Low 0.2-2.0 [facility] Eosinophils/100 WBC Manual c nt (Bld)Ordered By: Foreign Torres on 12-03-2024 Eosinophils/100 WBC (Bld) 0.0 % Low 0.9-7.0 [facility] Erythrocyte distribution wid th Auto (RBC) [Ratio]Ordered By: Foreign Torres on 12-03-2024 Erythrocyte distribution width (RBC) [Ratio] 13.2 % 11.0-15.0 [facility] Glomerular filtration rate ( GFR) estimation in non- AmericanOrdered By: Foreign Torres on 12-03-2024 GFR/1.73 sq M.predicted among non-blacks MDRD (S/P/Bld) [Vol rate/Area] mL/min/{1.73_m2} >=60 mL/min/1.73 m 2 [facility] Hematocrit Auto (Bld) [Volum e fraction]Ordered By: Foreign Torres on 12-03-2024 Hematocrit (Bld) [Volume fraction] 37.8 % Low 42.0-54.0 [facility] Hemoglobin [Mass/volume] in BloodOrdered By: Foreign Torres on 12-03-2024 Hemoglobin (Bld) [Mass/Vol] 12.7 g/dL Low 14.0-18.0 [facility] Laboratory - Chemistry and C hemistry - challengeOrdered By: Foreign Torres on 12-03-2024 Bilirubin Ql (U) Negative NEGATIVE [facility] Glucose (U) [Mass/Vol] Negative NEGATIVE [facility] Ketones Ql (U) Negative NEGATIVE [facility] pH (U) 5.5 [pH] 5.0-9.0 [facility] Specific gravity (U) [Rel density] 1.025 1.005-1.025 [facility] Urobilinogen Qn (U) 0.2 {Andre'U}/dL 0.2-1.0 [facility] Calcium [Mass/Vol] 8.5 mg/dL 8.5-10.1 [facility] Chloride [Moles/Vol] 103 mmol/L 98-107 [facility] CO2 [Moles/Vol] 24.8 mmol/L 21.0-32.0 [facility] Creatinine [Mass/Vol] 0.96 mg/dL 0.70-1.30 [facility] GFR/1.73 sq M.predicted MDRD (S/P/Bld) [Vol rate/Area] mL/min/{1.73_m2} >=60 mL/min/1.73 m 2 [facility] Glucose [Mass/Vol] 139 mg/dL High 74-106 [facility] Potassium [Moles/Vol] 3.3 mmol/L Low 3.5-5.1 [facility] Sodium [Moles/Vol] 137 mmol/L 136-145 [facility] Urea nitrogen [Mass/Vol] 14.0 mg/dL 7.0-18.0 [facility] Urea nitrogen/Creatinine [Mass ratio] 14.6 mg/mg [facility] Laboratory - Hematology and Cell countsOrdered By: Foreign Torres on 12-03-2024 Band form neutrophils/100 WBC (Bld) 4.0 % 0-5 [facility] Lymphocytes/100 WBC (Bld) 3.0 % Low 20.5-60.0 [facility] Monocytes/100 WBC (Bld) 4.0 % 1.7-12.0 [facility] Laboratory - Microbiology an d Antimicrobial susceptibilityOrdered By: Foreign Torres on 12-03-2024 SARS-CoV-2 (COVID-19) RNA ELLIOT+probe Ql (Unsp spec) Negative NEGATIVE [facility] Comment on above: This test has not [...] on 12-03-2024 Appearance (U) SL CLOUDY CLEAR [facility] Color (U) YELLOW YELLOW [facility] Laboratory - UrinalysisOrder ed By: Foreign Torres on 12-03-2024 Leukocyte esterase Test strip Ql (U) Negative NEGATIVE [facility] Mucus Ql (Urine sed) NONE SEEN NONE SEEN [facility] Nitrite Ql (U) Negative NEGATIVE [facility] Protein Ql (U) Negative NEG/TRACE [facility] Leukocytes [#/volume] correc evelyne for nucleated erythrocytes in Blood by Automated counOrdered By: Foreign Torres on 12-03-2024 WBC corrected for nucl RBC Auto (Bld) [#/Vol] 9.5 10 3/uL 4.0-11.0 [facility] MCH Auto (RBC) [Entitic mass ]Ordered By: Foreign Torres on 12-03-2024 MCH (RBC) [Entitic mass] 32.4 pg 25.9-34.0 [facility] MCHC Auto (RBC) [Mass/Vol]Or dered By: Foreign Torres on 12-03-2024 MCHC (RBC) [Mass/Vol] 33.6 g/dL 29.9-35.2 [facility] MCV Auto (RBC) [Entitic vol] Ordered By: Foreign Torres on 12-03-2024 MCV (RBC) [Entitic vol] 96.4 fL High 80.0-94.0 [facility] No Panel InformationOrdered By: Foreign Torres on 12-03-2024 Urine Bacteria TRACE #/HPF Abnormal NONE SEEN [facility] Urine Culture Reflexed NO [facility] Urine Occult Blood TRACE-I NEGATIVE [facility] Urine Other Casts NONE SEEN #/LPF NONE SEEN [facility] Urine Other Crystals None Seen #/HPF None Seen [facility] Urine RBC 2-5 #/HPF Abnormal 0-2 [facility] Urine Squamous Epithelial Cells RARE #/LPF NONE/RARE [facility] Urine WBC 2-5 #/HPF Abnormal NONE SEEN [facility] Absolute Basophils (Manual) 0.00 10 3/uL 0.00-0.10 [facility] Band Neutrophils # (Manual) 0.4 10 3/uL High 0.0-0.3 [facility] Eosinophils # (Manual) 0.00 10 3/uL 0.00-0.70 [facility] Lymphocytes # (Manual) 0.28 10 3/uL Low 1.20-3.80 [facility] Monocytes # (Manual) 0.38 10 3/uL 0.30-0.80 [facility] Segmented Neutrophils # (Manual) 8.45 10 3/uL High 1.4-6.5 [facility] No Panel InformationOrdered By: Juanjo Clark on 12-03-2024 C-Reactive Protein, Quantitative 6.98 mg/dL High <=0.50 [facility] Platelet mean volume Auto (B ld) [Entitic vol]Ordered By: Foreign Torres on 12-03-2024 Platelet mean volume (Bld) [Entitic vol] 9.2 fL Low 9.5-13.5 [facility] Platelets Auto (Bld) [#/Vol] Ordered By: Foreign Torres on 12-03-2024 Platelets (Bld) [#/Vol] 213 10 3/uL 150-450 [facility] RBC Auto (Bld) [#/Vol]Ordere d By: Foreign Torres on 12-03-2024 RBC (Bld) [#/Vol] 3.92 10 6/uL Low 4.70-6.10 [facility] Segmented neutrophils/100 WB C Manual cnt (Bld)Ordered By: Foreign Torres on 12-03-2024 Segmented neutrophils/100 WBC (Bld) 89.0 % High 43.0-75.0 [facility] Serum or plasma anion gap de terminationOrdered By: Foreign Torres on 12-03-2024 Anion gap [Moles/Vol] 12.5 mmol/L [facility] ([id number]) 1950 M Date Time Provider Department [facility] During your visit today, we recorded the [...] (mouth or hand numbness or tingling). - icpdxzp-ymtowhwmf-tkyd min D3 500 mg-5 mcg (200 unit) [...] Status:Closed by FERNANDO DIAZ on 11/23/24 Normal [facility] Laboratory - Chemistry and C hemistry - challengeOrdered By: Alvin Lo on 11-22-2024 Calcium [Mass/Vol] 9.0 mg/dL 8.5-10.1 [facility] No Panel InformationOrdered By: Outside Provider on 11-22-2024 Parathyroid Hormone (Intact) 26 pg/mL 15-65 [facility] Comment on above: Performed at: CB [facility] [id number] [place] [address] [id number] Director: Shahab Rodney PhD, Phone: [phone] Elvis 11-18-2024 [facility] Telephone (ENSSELMA) ZACHARYBANG Sow ([id number]) 1950 M Date Time Provider Department 11/18/24 [...] (mouth or hand numbness or tingling). - qaxfvqt-ytlguikjn-cfwd min D3 500 mg-5 mcg (200 unit) [...] Status:Closed by LOIS WISE on 11/18/24 Normal [facility] Calcium SerPl-mCncOrdered By : Outside Provider on 11-15-2024 Calcium [Mass/Vol] 9.2 mg/dL 8.5-10.2 [facility] Comment on above: Order Comment: Speci men Type: BLOOD SPECIMEN Ordering Facility: [facility] Address: [address] [place] [address] Performed By: #### 1 7861-6 #### [id number] [address] [place] [address] [place] No Panel InformationOrdered By: Outside Provider on 11-15-2024 Parathyroid Hormone (Intact) 16 pg/mL [facility] PTH-Intact SerPl-mCncon 07- Parathyrin.intact [Mass/Vol] 16 pg/mL Normal [facility] Comment on above: Order Comment: Speci men Type: BLOOD SPECIMEN Ordering Facility: [facility] Address: [facility] [place] [address] Performed By: #### 2 731-8 #### [facility] CLIA [id number] [place] [address] [place] ANES POSTPROC EVALon 025 ANES POSTPROC EVAL HNO ID: [id number] Author: SONG JORDAN III, MD Service: Anesthesiology Author Type: Anesthesiologist Type: Anesthesia Postprocedure Evaluation Filed: 11/14/2024 12:51 Note Text: POST ANESTHESIA EVALUATION NOTE : 1950 Procedure Summary Date: 11/14/24 Room / Location: [place] [address] / OR Anesthesia Start: 722 Anesthesia Stop: [...] November 14, 2024 TIME: 12:50 PM CSN: [id number] [facility] ANES PRE-OPon 11-14-2024 ANES PRE-OP HNO ID: [id number] Author: SONG JORDAN III, MD Service: Anesthesiology Author Type: Anesthesiologist Type: Anesthesia Preprocedure Evaluation Filed: 11/14/2024 07:04 Note Text: ANESTHESIOLOGY DAY OF SURGERY NOTE : 1950 Procedure Information Date/Time: 11/14/24729 Procedure: PARATHYROIDECTOMY (Bilateral: Thyroid) Location: MM OR05 / MM OR Surgeons: Geenva Butler MD Estimated body mass index is [...] November 14, 2024 TIME: 7:03 AM CSN: [id number] [facility] BRIEF OP NOTon 11-14-2024 BRIEF OP NOT HNO ID: [id number] Author: TIFFANY WESTBROOK MD Service: Endocrine Surgery Author Type: Physician Type: Brief Op Note Filed: 11/14/2024 08:20 Note Text: Brief Operative Note Patient Name: Bang Sharma LOG ID: [id number] Surgery/Procedure Date: 11/14/2024 Surgeon(s)/Procedurali st(s) and Ice Cream Scooper(s): Surgeons and Role: * Geneva Butler MD [...] 11/14/2024 8:10 AM A : right upper [id number] Tissue Parathyroid Gland, Right SURGICAL PATHOLOGY Geneva Butler MD 11/14/2024 7:55 AM B : Left upper 12x9x3 Tissue Parathyroid Gland, Left SURGICAL PATHOLOGY Geneva Butler MD 11/14/2024 8:04 AM C : right upper [id number] Tissue Parathyroid Gland, Right SURGICAL PATHOLOGY Geneva [...] Westbrook MD DATE: 11/14/24 TIME: 8:19 AM [facility] ECG COMPLETEon 11-14-2024 ECG COMPLETE Ventricular Rate : 6 4 BPM Atrial Rate : 64 BPM P-R Interval : 164 ms QRS Duration : 192 ms Q-T Interval : 488 ms QTC Calculation(Bazett) : 503 ms Calculated P Enders : 73 degrees Calculated R Enders : -76 degrees Calculated T Enders : 19 degrees Normal sinus rhythm Right bundle branch block Left anterior fascicular block Bifascicular block Septal infarct , age undetermined Abnormal ECG No previous ECGs available Confirmed by KEON MAGAÑA MD ([id number]) on 11/14/2024 12:20:23 PM NAME : BANG SHARMA PID : [id number] : 1950 Gender : Male Race : ORD : [id number] Procedure Date : Nov 14 2024 11:35:23 Edit Date : Nov 14 2024 12:20:28 Diagnosis: Normal sinus rhythm Right bundle branch block Left anterior fascicular block Bifascicular block Septal infarct , age undetermined Abnormal ECG No previous ECGs available Confirmed by KEON MAGAÑA MD ([id number]) on 11/14/2024 12:20:23 PM Test Reason : Post-OP Location : 1 : [facility] 021 Overread By : KEON MAGAÑA MD Edited By : KEON MAGAÑA MD Referred By : , Acquired by : DUONG KUMAR [facility] INTRAOPERATIVE PTHon 025 INTRAOPERATIVE PTH 73 pg/mL [facility] Comment on above: Order Comment: Speci men Type: BLOOD SPECIMEN Ordering Facility: [facility] Address: [address] [place] [address] Performed By: #### R IPTH #### [facility] [place] [id number] [address] [place] [address] INTRAOPERATIVE PTH 405 pg/mL [facility] Comment on above: Order Comment: Juana ceron Type: BLOOD SPECIMEN Ordering Facility: [facility] Address: [address] [place] [address] Performed By: #### R IPTH #### [facility] [place] [id number] [address] [place] [address] [place] OPERATIVE NOon 11-14-2024 OPERATIVE NO HNO ID: [id number] Author: GENEVA BUTLER MD Service: Endocrine Surgery Author Type: Physician Type: Operative Report Filed: 11/15/2024 06:54 Note Text: [facility] - Operative Report BANG SHARMA : 1950 AGE: 74. 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 INCISION CLOSE/PROCEDURE END TIME: 8:16 a.m. PREOPERATIVE DIAGNOSIS: Primary hyperparathyroidism. POSTOPERATIVE DIAGNOSIS: Primary hyperparathyroidism. SURGEON: Geneva Butler MD BIT BENDER: Tiffany Westbrook MD SURGERY/PROCEDURE: Parathyroid exploration with [...] Dr. Westbrook was asked to serve as engineer first assistant. During the course of the dissection, the engineer first assistant assisted with mobilization, vascular isolation, and division. ESTIMATED BLOOD LOSS: Minimal. DRAINS: None. SPECIMENS: Sent to Pathology: 1. Right upper parathyroid gland. 2. Left upper parathyroid gland. COUNTS: Sponge and needle counts correct. COMPLICATIONS: There were no intraoperative complications. Geneva (more content not included)... [facility] Pathology biopsy report Colby (Tiss)on 11-14-2024 AP DISCLAIMER [facility] Comment on above: Order Comment: Speci men Type: TISSUE SPECIMEN Ordering Facility: [facility] Address: [address] [address], [place] [address] Result Comment: Lindsey Farias Test (LDT) Disclaimer: Performance characteristics of immunohistochemical, immunofluorescent, and chromogenic in-situ hybridization tests have been determined by the performing laboratory within [facility]'s Lan Lena Healy Pathology and Laboratory Medicine Department ([facility], [facility], [facility], [facility], [facility], [facility], [facility]) in a manner consistent with CLIA [...] appropriately. Performed By: #### 6 6121-5 #### [facility] CLIA [id number] [address] [place] [address] LABORATORY CLIA [id number] [address] [place] [address] OF [place] CASE REPORT [facility] Comment on above: Order Comment: Speci men Type: TISSUE SPECIMEN Ordering Facility: [facility] Address: [address] [place] [address] Result Comment: Surg [facility] Pathology Report Case: [id number] Authorizing Provider: Geneva Butler MD Collected: 11/14/2024 07:55 AM Ordering Location: [facility] Surgery Received: 11/14/2024 08:04 AM Pathologist: Deysi Singh MD Intraop: Ella Johnson MD Specimens: A) - Parathyroid Gland, Right, right upper [id number] B) - Parathyroid Gland, Left, Left upper 12x9x3 C) - Parathyroid Gland, Right, right upper [id number] Performed By: #### 6 6121-5 #### [facility] CLIA [id number] [address] [place] [address] LABORATORY CLIA [id number] [address] [place] [address] OF [place] CLINICAL HISTORY Normal [facility] Comment on above: Order Comment: Speci men Type: TISSUE SPECIMEN Ordering Facility: [facility] Address: [address] [place] [address] Result Comment: Pre- op diagnosis: Hyperparathyroidism (HCC) [E21.3] Performed By: #### 6 6121-5 #### [facility] CLIA [id number] [address] [place], [place] [address] [facility] CLIA [id number] [address] [place] [address] FINAL DIAGNOSIS [facility] Comment on above: Order Comment: Speci men Type: TISSUE SPECIMEN Ordering Facility: [facility] Address: [address] [place] [address] Result Comment: A, C . Right upper parathyroid, excision: - Hypercellular parathyroid. B. Left upper parathyroid, excision: - Hypercellular parathyroid. SHANA November 16, 2024 at 1104 EDT Performed By: #### 6 6121-5 #### [facility] CLIA [id number] [address] [place] [address] [facility] CLIA [id number] [address] [place] [address] [place] FINAL PERFORMING LAB [facility] Comment on above: Order Comment: Speci men Type: TISSUE SPECIMEN Ordering Facility: [facility] Address: [address] [place] [address] Result Comment: Diag nostic interpretation performed at: [facility], [address] [place], [place] [id number] CLIA# [id number] Tongue And Quarter Stitcher: Herson Cuenca MD Performed By: #### 6 6121-5 #### [facility] CLIA [id number] [address] [place], [place] [address] [facility] [place] [facility] CLIA [id number] [address] [place], [place] [address] [place] GROSS DESCRIPTION [facility] Comment on above: Order Comment: Speci men Type: TISSUE SPECIMEN Ordering Facility: [facility] Address: [address] [place], [place] [address] Result Comment: A. P arathyroid Gland, Right FSA1: Received fresh for frozen section is one piece of brown soft tissue weighing 0.590 grams and measuring 2.2 x 0.9 x 0.6 cm. A statement services representative section is submitted for frozen section in FSA1. Gross examination performed at [facility], [address] [place] [address] CLIA# [id number] B. Parathyroid Gland, Left FSB1: Received fresh for frozen section is one piece of brown soft tissue weighing 0.245 grams and measuring 0.9 x 0.9 x 0.3 cm. The tissue is entirely submitted for frozen section in FSB1. Gross examination performed at [facility], [address] [place] [address], [place] [address] CLIA# [id number] C. Parathyroid Gland, Right Labeled: ??? Right upper 31 x 18 x 10??? Received: In formalin Size: 2.8 x 1.5 x 0.9 cm Weight: 1640 mg Cassette code: Representatively in C1 (serially section) Gross examination performed at [facility], [address] [place] [address] MSL/MADIHA 11/14/24 12:25 PM Performed By: #### 6 6121-5 #### [facility] CLIA [id number] [address] [place] [address] CLIA [id number] [address] [place] [address] INTRAOPERATIVE DIAGNOSIS [facility] Comment on above: Order Comment: Speci men Type: TISSUE SPECIMEN Ordering Facility: [facility] Address: [address] [place] [address] Result Comment: A. P arathyroid Gland, Right FSA1: Hypercellular parathyroid tissue (Ella Johnson MD) Intraoperative diagnosis performed at [facility], [address] [place] [address] CLIA# [id number] B. Parathyroid Gland, Left FSB1: Hypercellular parathyroid tissue (Ella Johnson MD) Intraoperative diagnosis performed at [facility], [address] [place] [address] CLIA# [id number] Performed By: #### 6 6121-5 #### [facility] CLIA [id number] [address] [place] [facility] CLIA [id number] [address] [place] [address] [place] Basic metabolic 2000 panelon 11-01-2024 Anion gap [Moles/Vol] 9 mmol/L Normal 8-15 [facility] Comment on above: Order Comment: Speci men Type: BLOOD SPECIMENOrdering Facility: [facility] Address: [address] [place] [address] Performed By: #### 2 4321-2 ####[facility] [id number] [place] [address] [place] Calcium [Mass/Vol] 11.0 mg/dL High 8.5-10.[address] [facility] Comment on above: Order Comment: Speci men Type: BLOOD SPECIMENOrdering Facility: [facility] Address: [address] [place] [address] Performed By: #### 2 4321-2 ####[facility] [id number] [place] [address] [place] Chloride [Moles/Vol] 105 mmol/L Normal 98-107 [facility] Comment on above: Order Comment: Speci men Type: BLOOD SPECIMENOrdering Facility: [facility] Address: [address] [place], [place] [address] Performed By: #### 2 4321-2 ####[facility] [id number] [place] [id number] [place] CO2 [Moles/Vol] 26 mmol/L Normal 22-30 [facility] Comment on above: Order Comment: Speci men Type: BLOOD SPECIMENOrdering Facility: [facility] Address: [address] [place], [place] [address] Performed By: #### 2 4321-2 ####[facility] [id number] 91 [address] [address] [place] Creatinine [Mass/Vol] 0.86 mg/dL Normal 0.73-1.22 [facility] Comment on above: Order Comment: Juana ceron Type: BLOOD SPECIMENOrdering Facility: [facility] Address: [address] [place] [address] Performed By: #### 2 4321-2 ####[facility] LABCLIA [id number] [place] [address] [place] eGFRcr SerPlBld CKD-EPI 2020 90 mL/min/1.73m??? Normal >=60 [facility] Comment on above: Order Comment: Juana ceron Type: BLOOD SPECIMENOrdering Facility: [facility] Address: [address] [place] [address] Result Comment: Lenora mated Glomerular Filtration Rate [...] actual GFR. Performed By: #### 2 4321-2 ####[facility] LABCLIA [id number] [place] [address] [place] Glucose [Mass/Vol] 108 mg/dL High 74-[address] [facility] Comment on above: Order Comment: Juana ceron Type: BLOOD SPECIMENOrdering Facility: [facility] Address: [address] [place] [address] Result Comment: The [place] Diabetes Association (ADA) provides guidance for cutoff [...] Standards of Medical Care in Diabetes 2016, [place] Diabetes Association. Diabetes Care. 2016.39(Suppl 1). Performed By: #### 2 4321-2 ####[facility] LABCLIA [id number] [address] [address] [place] Potassium [Moles/Vol] 4.5 mmol/L Normal 3.7-5.1 [facility] Comment on above: Order Comment: Speci men Type: BLOOD SPECIMENOrdering Facility: [facility] Address: [address] [place] [address] Performed By: #### 2 4321-2 ####[facility] LABCLIA [id number] [place] [address] [place] Sodium [Moles/Vol] 140 mmol/L Normal 136-[address] [facility] Comment on above: Order Comment: Speci men Type: BLOOD SPECIMENOrdering Facility: [facility] Address: [address] [place] [address] Performed By: #### 2 4321-2 ####[facility] LABCLIA [id number] [place] [address] [place] Urea nitrogen [Mass/Vol] 18 mg/dL Normal 9-24 [facility] Comment on above: Order Comment: Speci men Type: BLOOD SPECIMENOrdering Facility: [facility] Address: [address] [place] [address] Performed By: #### 2 4321-2 ####[facility] LABCLIA [id number] [place] [id number] [place] Basophils Auto (Bld) [#/Vol] Ordered By: Geneva Butler on 11-01-2024 Basophils (Bld) [#/Vol] 0.05 10*3/uL <0.11 [facility] Basophils/100 WBC Auto (Bld) Ordered By: Geneva Butler on 11-01-2024 Basophils/100 WBC (Bld) 0.9 % F [facility] Blood manual differential co mment interpretation narrativeOrdered By: Geneva Butler on 11-01-2024 Manual differential comment Colby (Bld) [Interp] Auto [facility] CBC W Auto Differential pane l (Bld)on 11-01-2024 Basophils (Bld) [#/Vol] 0.05 10*3/uL Normal <0.11 [facility] Comment on above: Order Comment: Speci men Type: BLOOD SPECIMENOrdering Facility: [facility] Address: [address] [place] [address] Performed By: #### 5 7021-8 ####[facility] LABCLIA [id number] [place] [address] [place] Basophils/100 WBC (Bld) 0.9 % Normal C [facility] Comment on above: Order Comment: Speci men Type: BLOOD SPECIMENOrdering Facility: [facility] Address: [address] [place] [address] Performed By: #### 5 7021-8 ####[facility] LABCLIA [id number] [place] [address] [place] Differential cell count method Nom (Bld) Auto Normal [facility] Comment on above: Order Comment: Speci men Type: BLOOD SPECIMENOrdering Facility: [facility] Address: [address] [place] [address] Performed By: #### 5 7021-8 ####[facility] LABCLIA [id number] [place] [address] [place] Eosinophils (Bld) [#/Vol] 0.11 10*3/uL Normal <0.46 [facility] Comment on above: Order Comment: Speci men Type: BLOOD SPECIMENOrdering Facility: [facility] Address: [address] [place] [address] Performed By: #### 5 7021-8 ####[facility] LABCLIA [id number] [place] [address] [place] Eosinophils/100 WBC (Bld) 1.9 % Normal [facility] Comment on above: Order Comment: Speci men Type: BLOOD SPECIMENOrdering Facility: [facility] Address: [address] [place] [address] Performed By: #### 5 7021-8 ####[facility] LABCLIA [id number] [place] [address] [place] Erythrocyte distribution width (RBC) [Ratio] 13.6 % Normal 11.5-15.0 [facility] Comment on above: Order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 count Low 1.2-3.8 [facility] Lymphocytes/100 WBC Auto (Bl d)on 08-24-2024 Lymphocytes/100 WBC (Bld) Lymphocytes/100 leukocytes in Blood by Automated count Low 20.5-60.0 [facility] MCH Auto (RBC) [Entitic mass ]on 08-24-2024 MCH (RBC) [Entitic mass] MCH [Entitic ma ss] by Automated count 25.9-34.0 [facility] MCHC Auto (RBC) [Mass/Vol]on 08-24-2024 MCHC (RBC) [Mass/Vol] MCHC [Mass/volume] by Automated count 29.9-35.2 [facility] MCV Auto (RBC) [Entitic vol] on 08-24-2024 MCV (RBC) [Entitic vol] MCV [Entitic vol ume] by Automated count High 80.0-94.0 [facility] Monocytes Auto (Bld) [#/Vol] on 08-24-2024 Monocytes (Bld) [#/Vol] Automated blood monocyte count 0.3-0.8 [facility] Monocytes/100 WBC Auto (Bld) on 08-24-2024 Monocytes/100 WBC (Bld) Automated monocyte % 1. 7-12.0 [facility] Neutrophils Auto (Bld) [#/Vo l]on 08-24-2024 Neutrophils (Bld) [#/Vol] Neutrophils [#/volume] in Blood by Automated count High 1.4-6.5 [facility] Neutrophils/100 WBC Auto (Bl d)on 08-24-2024 Neutrophils/100 WBC (Bld) Automated neutrophil % High 43.0-75.0 [facility] No Panel Informationon 08-24 Eosinophils # (Auto) 0.0 10 3/uL 0.0-0.7 [facility] Immature Granulocyte # (Auto) 0.04 10 3/uL High 0.00-0.03 [facility] Platelet mean volume Auto (B ld) [Entitic vol]on 08-24-2024 Platelet mean volume (Bld) [Entitic vol] Platelet mean volume [Entitic volume] in Blood by Automated count Low 9.5-13.5 [facility] Platelets Auto (Bld) [#/Vol] on 08-24-2024 Platelets (Bld) [#/Vol] Platelets [#/vol ume] in Blood by Automated count 150-450 [facility] RBC Auto (Bld) [#/Vol]on RBC (Bld) [#/Vol] Erythrocytes [#/volume] in Blood by Automated count Low 4.70-6.10 [facility] Serum or plasma albumin/glob ulin mass ratioon 08-24-2024 Albumin/Globulin [Mass ratio] Serum or plasma albumin/globulin mass ratio [facility] Serum or plasma anion gap de terminationon 08-24-2024 Anion gap [Moles/Vol] Serum or plasma an ion gap determination [facility] Basophils/100 WBC Manual cnt (Bld)on 08-23-2024 Basophils/100 WBC (Bld) Basophils/100 leukocytes in Blood by Manual count Low 0.2-2.0 [facility] CNPNon 08-23-2024 JULIETHN Telephone (ENSSELMA) BANG SHARMA ([id number]) 1950 M Date Time Provider Department 08/23/24 [...] Status:Closed by MICHELLE ALMAGUER on 08/23/24 Normal [facility] Eosinophils/100 WBC Manual c nt (Bld)on 08-23-2024 Eosinophils/100 WBC (Bld) Eosinophils/100 leukocytes in Blood by Manual count Low 0.9-7.0 [facility] Estimated glomerular filtrat ion rate (GFR) non- Americanon 08-23-2024 GFR/1.73 sq M.predicted among non-blacks MDRD (S/P/Bld) [Vol rate/Area] Estimated glomerular filtration rate (GFR) non- >=60 mL/min/1.73 m 2 [facility] Globulin Calc (S) [Mass/Vol] on 08-23-2024 Globulin (S) [Mass/Vol] Serum globulin measurement by calculation (mass/volume) [facility] INR in Platelet poor plasma by Coagulation assayon 08-23-2024 INR Coag (PPP) [Relative time] INR in Platelet poor plasma by Coagulation assay [facility] Comment on above: DESIRED INR:2.0-3.0 CONDITIONS NOT LISTED BELOW2.5-3.5 FOR PROSTHETIC HEART VALVE REPLACEMENT2.5-3.5 RECURRENT THROMBOSIS Laboratory - Chemistry and C hemistry - challengeon 08-23-2024 Albumin [Mass/Vol] 3.8 g/dL 3.4-5.0 [facility] ALP [Catalytic activity/Vol] 64 U/L 46-116 [facility] ALT [Catalytic activity/Vol] 41 U/L 16-63 [facility] AST [Catalytic activity/Vol] 17 U/L 15-37 [facility] Bilirubin [Mass/Vol] 0.7 mg/dL 0.2-1.0 [facility] Calcium [Mass/Vol] 9.7 mg/dL 8.5-10.1 [facility] Chloride [Moles/Vol] 98 mmol/L 98-107 [facility] CO2 [Moles/Vol] 26.1 mmol/L 21.0-32.0 [facility] Creatinine [Mass/Vol] 1.19 mg/dL 0.70-1.30 [facility] GFR/1.73 sq M.predicted MDRD (S/P/Bld) [Vol rate/Area] mL/min/{1.73_m2} >=60 mL/min/1.73 m 2 [facility] Glucose [Mass/Vol] 130 mg/dL High 74-106 [facility] Lactate [Moles/Vol] 1.0 mmol/L 0.4-2.0 [facility] Natriuretic peptide B (Bld) [Mass/Vol] 1038.0 pg/mL High <=900.0 [facility] Potassium [Moles/Vol] 3.6 mmol/L 3.5-5.1 [facility] Protein [Mass/Vol] 7.3 g/dL 6.4-8.2 [facility] Sodium [Moles/Vol] 131 mmol/L Low 136-145 [facility] Urea nitrogen [Mass/Vol] 13.0 mg/dL 7.0-18.0 [facility] Urea nitrogen/Creatinine [Mass ratio] 10.9 mg/mg [facility] Laboratory - Hematology and Cell countson 08-23-2024 Lymphocytes/100 WBC (Bld) 4.0 % Low 20.5-60.0 [facility] Monocytes/100 WBC (Bld) 6.0 % 1.7-12.0 [facility] Laboratory - Microbiology an d Antimicrobial susceptibilityon 08-23-2024 SARS-CoV-2 (COVID-19) RNA ELLIOT+probe Ql (Unsp spec) Negative NEGATIVE [facility] Comment on above: This test has not [...] Absolute Basophils (Manual) 0.00 10 3/uL 0.00-0.10 [facility] Eosinophils # (Manual) 0.00 10 3/uL 0.00-0.70 [facility] Lymphocytes # (Manual) 0.52 10 3/uL Low 1.20-3.80 [facility] Monocytes # (Manual) 0.79 10 3/uL 0.30-0.80 [facility] Segmented Neutrophils # (Manual) 11.88 10 3/uL High 1.4-6.5 [facility] Troponin I High Sensitivity 33.4 pg/mL 4.0-76.1 [facility] Comment on above: CUT-OFF POINTS HAVE BEEN [...] INFORMATION. Bedside Influenza Type A Antigen Negative [facility] Comment on above: Negative for Flu A p rotein antigen. Infection due to Flu Acannot be ruled out. Flu A antigen in the sample may bebelow the detection limit of the test. Bedside Influenza Type B Antigen Negative [facility] Comment on above: Negative for Flu B p rotein antigen. Infection due to Flu Bcannot be ruled out. Flu B antigen in the sample may bebelow the detection limit of the test. Prothrombin time (PT)on PT Coag (PPP) [Time] Prothrombin time (PT) High 9.0- 11.6 [facility] Segmented neutrophils/100 WB C Manual cnt (Bld)on 08-23-2024 Segmented neutrophils/100 WBC (Bld) Manual blood segmented neutrophils/100 leukocytes High 43.0-75.0 [facility] Serum or plasma albumin/glob ulin mass ratioon 08-23-2024 Albumin/Globulin [Mass ratio] Serum or plasma albumin/globulin mass ratio [facility] Serum or plasma anion gap de terminationon 08-23-2024 Anion gap [Moles/Vol] Serum or plasma an ion gap determination [facility] CNPNon 08-18-2024 CNPN Telephone (ENDOLN) ZACHARYBANG Sow ([id number]) 1950 M Date Time Provider Department 08/18/24 HERBER DONALD ENDOLN During your visit today, we recorded the following information about you: Marina Mccracken MA 08/18/2024 10:39 AM Signed A form has been received from [facility] for DXA Bone Densitometry Report. [...] Assessed Reason for Visit: Results [95] Cmt: [facility] - DXA scan Prescriptions as [...] Encounter Status:Closed by HER[facility] Telephone (JOLYNN) BANG SHARMA ([id number]) 1950 M Date Time Provider Department 08/17/24 GENEVA BUTLER During your visit today, we recorded the following information about you: Edd Sosa 08/17/2024 4:00 PM Signed 08/17/2024 INTAKE PENDING-organgir.amHART MSG SENT TO CONFIRM APPT. AND COMPLETE INTAKE QUESTIONS-NEED PARTIAL LABS, URINE, DXA, AND MIBI-- CALLED THE LAB TO POSSIBLY ADD ON IONIZED CALCIUM AND VIT D1 25. ENDOCRINE SURGERY PATIENT WORKSHEET Initial Call Date: August 17, 2024 Reason for Consult/ Referral: Hyperparathyroid PATIENT DEMOGRAPHICS Name: Bang Sharma CCF#: [id number] : 1950 AGE: [age] year old Contact Numbers: Home: (home) Work: There is no work phone number on file. PATIENT PHYSICIAN INFORMATION Referring Doctor: Address: Phone: Club Attendant: Address: Phone: PCP: Alvin Lo ([facility]) [address] [place] [address] PAST TREATMENT Office notes: [facility] Medications: NONE THAT APPLY Pre-Visit Testing Latest [...] 65 pg/mL 106 (H) Imaging Reports: [facility] CD of Images: [facility] FNA: no FNA Slides: N/A Has the [...] (HCC) [E21.3] Order(s):CALCIUM, IONIZED [SQICA] Order #: [id number] FUTURE VITAMIN D1 25-DIHYDR [[id number]] Order #: [id number] FUTURE CALCIUM, 24 HR URINE [SQUCALCD] Order #: [id number]. #:[id number] CREATININE, 24 HOUR URINE [SQUCRD] Order #: [id number]. #:[id number] DXA-AXIAL SKELETON [[id number]] Order #: [id number] FUTURE DXA-FOREARM SKELETON [[id number]] Order #: [id number] FUTURE Prescriptions as of 08/17/2024 - meloxicam [...] Status:Closed by EDD SOSA on 08/17/24 Normal [facility] 1,25-dihydroxyvitamin D3 [Ma ss/Vol]on 08-16-2024 VIT D1,25 DIHYDROXY 45.7 pg/mL Normal 19.9-79.3 [facility] Comment on above: Order Comment: Speci men Type: BLOOD SPECIMENOrdering Facility: [facility] Address: [address] [place] [address] Performed By: #### 1 649-3, 1988-06 ####[facility] [id number] [address] [facility] 25(OH)D3 [facility]con 2024 25-hydroxyvitamin D3 [Mass/Vol] 32.7 ng/mL Normal 31.0-80.0 [facility] Comment on above: Order Comment: [place] Type: BLOOD SPECIMENOrdering Facility: [facility] Address: [address] [place] [address] Result Comment: Clas sification of 25 [place] Vitamin D status: Deficiency/Insufficiency: < or = 30 ng/ml. Sufficiency/Optimal Levels: 31-80 ng/mL Toxicity: > 100 ng/mL. Test performed by chemiluminescent immunoassay. Performed By: #### 1 649-3, 1988-06 ####[facility]IA [id number] [address] OF [place] CNOVon 08-16-2024 CNOV Office Visit (ENDOLN ) BANG SHARMA ([id number]) 1950 M Date Time Provider Department 08/16/24 [...] get records of recent DXA scan at [facility] - RENAL FUNCTION PANEL; Future [...] Reviewed: 08/16/2024 (more content not included)... Normal [facility] Laboratory - Chemistry and C hemistry - challengeon 08-16-2024 Albumin [Mass/Vol] 4.5 g/dL 3.9-4.9 [facility] Calcium [Mass/Vol] 11.2 mg/dL High 8.5-10.2 [facility] Chloride [Moles/Vol] 107 mmol/L 98-107 [facility] CO2 [Moles/Vol] 23 mmol/L 22-30 [facility] Creatinine [Mass/Vol] 1.55 mg/dL High 0.73-1.22 [facility] Glucose [Mass/Vol] 89 mg/dL 74-99 [facility] Comment on above: The [place] Diabete s Association (ADA) provides guidance for [...] Standards of Medical Care in Diabetes 2016, [place] Diabetes Association. Diabetes Care. 2016.39(Suppl 1). Potassium [Moles/Vol] 4.3 mmol/L 3.7-5.1 [facility] Sodium [Moles/Vol] 143 mmol/L 136-144 [facility] Urea nitrogen [Mass/Vol] 21 mg/dL 01-11 [facility] No Panel Informationon 08-16 25-Hydroxy Vitamin D Total 32.7 ng/mL 31.0-80.0 [facility] Comment on above: Classification of 25 [place] Vitamin D status: Deficiency/Insufficiency: < or = 30 ng/ml.Sufficiency/Optimal Levels: 31-80 ng/mLToxicity: > 100 ng/mL. Test performed by chemiluminescent immunoassay. Estimated GFR (CKD-EPI) 47 mL/min/1.73m??? Low >=60 [facility] Comment on above: Estimated Glomerular Filtration Rate [...] GFR. Parathyroid Hormone (Intact) 106 pg/mL High [facility] Phosphorus Level 2.2 mg/dL Low 2.7-4.8 [facility] PTH-Intact SerPl-mCncon 07-20 Parathyrin.intact [Mass/Vol] 106 pg/mL High 65 [facility] Comment on above: Order Comment: Speci men Type: BLOOD SPECIMENOrdering Facility: [facility] Address: [address] [place] [id number] Performed By: #### 2 731-8, 21191-1 ####[facility] LABCLIA [id number] [address] [address] [place] Renal function 2000 panelon 08-16-2024 Albumin [Mass/Vol] 4.5 g/dL Normal 3.9-4.[address] [facility] Comment on above: Order Comment: Speci men Type: BLOOD SPECIMENOrdering Facility: [facility] Address: [address] [place] [address] Performed By: #### 2 731-8, 24973-1 ####[facility]IA [id number] [place] [address] [place] Anion gap [Moles/Vol] 13 mmol/L Normal 8-15 [facility] Comment on above: Order Comment: Speci men Type: BLOOD SPECIMENOrdering Facility: [facility] Address: [address] [place] [address] Performed By: #### 2 731-8, 30602-1 ####[facility] [id number] [place] [id number] [place] Calcium [Mass/Vol] 11.2 mg/dL High 8.5-10.[address] [facility] Comment on above: Order Comment: Speci men Type: BLOOD SPECIMENOrdering Facility: [facility] Address: [address] [place], [place] [id number] Performed By: #### 2 731-8, 61513-9 ####[facility]IA [id number] [address] [address] [place] Chloride [Moles/Vol] 107 mmol/L Normal 98-107 [facility] Comment on above: Order Comment: Speci men Type: BLOOD SPECIMENOrdering Facility: [facility] Address: [address] [place], [place] [id number] Performed By: #### 2 731-8, 94928-3 ####[facility] LABCLIA [id number] [address] [address] [place] CO2 [Moles/Vol] 23 mmol/L Normal 22-30 [facility] Comment on above: Order Comment: Speci men Type: BLOOD SPECIMENOrdering Facility: [facility] Address: [address] [place] [address] Performed By: #### 2 731-8, 24845-4 ####[facility] LABIA [id number] [address] [address] [place] Creatinine [Mass/Vol] 1.55 mg/dL High 0.73-1.22 [facility] Comment on above: Order Comment: Speci men Type: BLOOD SPECIMENOrdering Facility: [facility] Address: [address] [place] [address] Performed By: #### 2 731-8, 73117-1 ####[facility]ITAL[facility] [id number] [place] [address] [place] Creatinine and Glomerular filtration rate.predicted panel (S/P/Bld) 47 mL/min/1.73m??? Low >=60 [facility] Comment on above: Order Comment: Speci men Type: BLOOD SPECIMENOrdering Facility: [facility] Address: [address] [place] [address] Result Comment: Lenora mated Glomerular Filtration Rate [...] actual GFR. Performed By: #### 2 731-8, 89438-8 ####[facility] LABIA [id number] [address] [address] [place] Glucose [Mass/Vol] 89 mg/dL Normal 74-[address] [facility] Comment on above: Order Comment: Juana ceron Type: BLOOD SPECIMENOrdering Facility: [facility] Address: [address] [place] [address] Result Comment: The [place] Diabetes Association (ADA) provides guidance for cutoff [...] Standards of Medical Care in Diabetes 2016, [place] Diabetes Association. Diabetes Care. 2016.39(Suppl 1). Performed By: #### 2 731-8, 42862-9 ####[facility] LABCLIA [id number] [place] [address] [place] Phosphate [Mass/Vol] 2.2 mg/dL Low 2.7-4.8 [facility] Comment on above: Order Comment: Juana ceron Type: BLOOD SPECIMENOrdering Facility: [facility] Address: [address] [place] [address] Performed By: #### 2 731-8, 21999-3 ####[facility] LABCLIA [id number] [place] [id number] [place] Potassium [Moles/Vol] 4.3 mmol/L Normal 3.7-5.1 [facility] Comment on above: Order Comment: Juana ceron Type: BLOOD SPECIMENOrdering Facility: [facility] Address: [address] [place] [place] [id number] Performed By: #### 2 731-8, 60765-4 ####[facility] LABCLIA [id number] [address] [address] [place] Sodium [Moles/Vol] 143 mmol/L Normal 136-[address] [facility] Comment on above: Order Comment: Speci men Type: BLOOD SPECIMENOrdering Facility: [facility] Address: [address] [place] [address] Performed By: #### 2 731-8, 47389-7 ####[facility] LABCLIA [id number] [place] [id number] [place] Urea nitrogen [Mass/Vol] 21 mg/dL Normal 9-24 [facility] Comment on above: Order Comment: Speci men Type: BLOOD SPECIMENOrdering Facility: [facility] Address: [address] [place] [address] Performed By: #### 2 731-8, 91747-3 ####[facility] LABCLIA [id number] [place] [address] [place] Serum or plasma anion gap de terminationon 08-16-2024 Anion gap [Moles/Vol] Serum or plasma an ion gap determination 8-15 [facility] Serum or plasma calcitriol m easurement (mass/volume)on 08-16-2024 1,25-dihydroxyvitamin D3 [Mass/Vol] Serum or plasma calcitriol measurement (mass/volume) 19.9-79.3 [facility] Office Visiton 07-08-2024 Follow-up visit [id number] Lucinda Sharma 1950 M Date Provider Department Center 07/08/2024 [id number]-BRZZHE, ADAM [facility] Family History Problem Relation Age of Onset Coronary artery disease Other Hypertension Other Family Status - Relation Status Age at Other Level of Service:45826 [place] OFFICE/OUTPATIENT ESTABLISHED LOW MDM 20 MIN Normal [facility] Estimated glomerular filtrat ion rate (GFR) non- Americanon 07-07-2024 GFR/1.73 sq M.predicted among non-blacks MDRD (S/P/Bld) [Vol rate/Area] Estimated glomerular filtration rate (GFR) non- >=60 mL/min/1.73 m 2 [facility] Laboratory - Chemistry and C hemistry - challengeon 07-07-2024 Calcium [Mass/Vol] 10.5 mg/dL High 8.5-10.1 [facility] Chloride [Moles/Vol] 106 mmol/L 98-107 [facility] CO2 [Moles/Vol] 29.4 mmol/L 21.0-32.0 [facility] Creatinine [Mass/Vol] 1.13 mg/dL 0.70-1.30 [facility] GFR/1.73 sq M.predicted MDRD (S/P/Bld) [Vol rate/Area] mL/min/{1.73_m2} >=60 mL/min/1.73 m 2 [facility] Glucose [Mass/Vol] 105 mg/dL 74-106 [facility] Potassium [Moles/Vol] 4.1 mmol/L 3.5-5.1 [facility] Sodium [Moles/Vol] 142 mmol/L 136-145 [facility] Urea nitrogen [Mass/Vol] 21.0 mg/dL High 7.0-18.0 [facility] Urea nitrogen/Creatinine [Mass ratio] 18.6 mg/mg [facility] No Panel Informationon 07-07 25-Hydroxy Vitamin D Total 36.6 ng/mL [facility] Comment on above: <20 ng/mL Vit D defi cient20-<30 ng/mL Vit D [id number] ng/mL Vit D sufficient>100 ng/mL Potential Toxicity Parathyroid Hormone (Intact) 91 pg/mL Abnormal 15-65 [facility] Comment on above: Performed at: [facility] [employer] [address] [id number] Director: Shahab Rodney PhD, Phone: [phone] Serum or plasma anion gap de terminationon 07-07-2024 Anion gap [Moles/Vol] Serum or plasma an ion gap determination [facility] Office Visiton 06-14-2024 Follow-up visit [id number] Lucinda Sharma 1950 M Date Provider Department Center 06/14/2024 ALPESH MARQUEZ [facility] Family History Problem Relation Age of Onset Coronary artery disease Other Hypertension Other Family Status - Relation Status Age at Other Level of Service:51282 [place] OFFICE/OUTPATIENT ESTABLISHED LOW MDM 20 MIN Normal [facility] ALL THYROID STIM HORMONEon 1 06-08-2023 TSH Qn 0.963 m[IU]/L [facility] Albumin [Mass/volume] in Ser um or Plasmaon 04-07-2024 Albumin [Mass/Vol] Albumin [Mass/volume ] in Serum or Plasma 2.9-4.4 [facility] Estimated glomerular filtrat ion rate (GFR) non- Americanon 04-07-2024 GFR/1.73 sq M.predicted among non-blacks MDRD (S/P/Bld) [Vol rate/Area] Estimated glomerular filtration rate (GFR) non- >=60 mL/min/1.73 m 2 [facility] Laboratory - Chemistry and C hemistry - challengeon 04-07-2024 Calcium [Mass/Vol] 10.0 mg/dL 8.5-10.1 [facility] Chloride [Moles/Vol] 107 mmol/L 98-107 [facility] CO2 [Moles/Vol] 29.3 mmol/L 21.0-32.0 [facility] Cobalamin (Vitamin B12) [Mass/Vol] 748 pg/mL 232-1245 [facility] Comment on above: Performed at: [facility] [address] [id number] Director: Shahab Rodney PhD, Phone: [phone] Creatinine [Mass/Vol] 0.90 mg/dL 0.70-1.30 [facility] GFR/1.73 sq M.predicted MDRD (S/P/Bld) [Vol rate/Area] mL/min/{1.73_m2} >=60 mL/min/1.73 m 2 [facility] Glucose [Mass/Vol] 99 mg/dL 74-106 [facility] Potassium [Moles/Vol] 3.7 mmol/L 3.5-5.1 [facility] Sodium [Moles/Vol] 141 mmol/L 136-145 [facility] TSH Qn 0.963 m[IU]/L 0.358-3.740 [facility] Urea nitrogen [Mass/Vol] 12.0 mg/dL 7.0-18.0 [facility] Urea nitrogen/Creatinine [Mass ratio] 13.3 mg/mg [facility] Bilirubin Ql (U) Negative NEGATIVE [facility] Glucose (U) [Mass/Vol] Negative NEGATIVE [facility] Ketones Ql (U) Negative NEGATIVE [facility] pH (U) 6.5 [pH] 5.0-9.0 [facility] Specific gravity (U) [Rel density] 1.020 1.005-1.025 [facility] Urobilinogen Qn (U) 0.2 {Andre'U}/dL 0.2-1.0 [facility] Laboratory - Specimen inform ationon 04-07-2024 Appearance (U) CLEAR CLEAR [facility] Color (U) LT. YELLOW YELLOW [facility] Laboratory - Urinalysison Leukocyte esterase Test strip Ql (U) Negative NEGATIVE [facility] Mucus Ql (Urine sed) NONE SEEN NONE SEEN [facility] Nitrite Ql (U) Negative NEGATIVE [facility] Protein Ql (U) Negative NEG/TRACE [facility] No Panel Informationon 04-07 25-Hydroxy Vitamin D Total 18.7 ng/mL [facility] Comment on above: <20 ng/mL Vit D defi cient20-<30 ng/mL Vit D [id number] ng/mL Vit D sufficient>100 ng/mL Potential Toxicity Folate 23.60 ng/mL 8.60-58.90 [facility] Parathyroid Hormone (Intact) 88 pg/mL Abnormal 15-65 [facility] Comment on above: Performed at: [facility] [address] [id number] Director: Shahab Rodney PhD, Phone: [phone] Protein Electrophoresis M-Harry Not Observed g/dL Not Observed [facility] Protein Electrophoresis Note Comment . [facility] Comment on above: Protein electrophore sis scan will follow via computer,mail, or packaging clerk delivery.Performed at: [employer] [facility] [address] [id number] Director: Shahab Rodney PhD, Phone: [phone] Urine Bacteria NONE SEEN #/HPF NONE SEEN [facility] Urine Occult Blood Negative NEGATIVE [facility] Urine RBC NONE SEEN #/HPF 0-2 [facility] Urine Squamous Epithelial Cells RARE #/LPF NONE/RARE [facility] Urine WBC NONE SEEN #/HPF NONE SEEN [facility] Protein [Mass/volume] in Ser um or Plasmaon 04-07-2024 Protein [Mass/Vol] Protein [Mass/volume ] in Serum or Plasma 6.0-8.5 [facility] Serum globulin measurement ( mass/volume)on 04-07-2024 Globulin (S) [Mass/Vol] Serum globulin measurement (mass/volume) 2.2-3.9 [facility] Serum or plasma albumin/glob ulin mass ratioon 04-07-2024 Albumin/Globulin [Mass ratio] Serum or plasma albumin/globulin mass ratio 0.7-1.7 [facility] Serum or plasma alpha 1 glob ulin measurement by electrophoresis (mass/volume)on 04-07-2024 Alpha 1 globulin Elph [Mass/Vol] Serum or plasma alpha 1 globulin measurement by electrophoresis (mass/volume) 0.0-0.4 [facility] Serum or plasma alpha 2 glob ulin measurement by electrophoresis (mass/volume)on 04-07-2024 Alpha 2 globulin Elph [Mass/Vol] Serum or plasma alpha 2 globulin measurement by electrophoresis (mass/volume) 0.4-1.0 [facility] Serum or plasma anion gap de terminationon 04-07-2024 Anion gap [Moles/Vol] Serum or plasma an ion gap determination [facility] Serum or plasma beta globuli n measurement by electrophoresis (mass/volume)on 04-07-2024 Beta globulin Elph [Mass/Vol] Serum or plasma beta globulin measurement by electrophoresis (mass/volume) 0.7-1.3 [facility] Serum or plasma gamma globul in measurement by electrophoresis (mass/volume)on 04-07-2024 Gamma globulin Elph [Mass/Vol] Serum or plasma gamma globulin measurement by electrophoresis (mass/volume) 0.4-1.8 [facility] Office Visiton 03-15-2024 Follow-up visit [id number] Lucinda Sharma yuko E 1950 M Date Provider Department Center 03/15/2024 Edward-DREA [facility] Family History Problem Relation Age of Onset Coronary artery disease Other Hypertension Other Family Status - Relation Status Age at Other Level of Service:94477 [place] OFFICE/OUTPATIENT ESTABLISHED LOW MDM 20 MIN Reason for Visit and Comments: Follow-up [345072] - 3 month follow up Atrial Fibrillation [80] Normal [facility] Basophils Auto (Bld) [#/Vol] on 03-10-2024 Basophils (Bld) [#/Vol] Automated basoph il count 0.0-0.1 [facility] Basophils/100 WBC Auto (Bld) on 03-10-2024 Basophils/100 WBC (Bld) Automated basophil % 0. 2-2.0 [facility] Cholesterol in LDL Calc [Mas s/Vol]on 03-10-2024 Cholesterol in LDL [Mass/Vol] Cholesterol in LDL [Mass/volume] in Serum or Plasma by calculation [facility] Comment on above: <100 mg/dl [id number] 0-129 mg/dl NEAR OR ABOVE [id number] mg/dl BORDERLINE [id number] mg/dl HIGH>190 mg/dl VERY HIGH Cholesterol in VLDL Calc [Ma ss/Vol]on 03-10-2024 Cholesterol in VLDL [Mass/Vol] Cholesterol in VLDL [Mass/volume] in Serum or Plasma by calculation [facility] Eosinophils/100 WBC Auto (Bl d)on 03-10-2024 Eosinophils/100 WBC (Bld) Automated eosinophil % 0.9-7.0 [facility] Erythrocyte distribution wid th Auto (RBC) [Ratio]on 03-10-2024 Erythrocyte distribution width (RBC) [Ratio] Erythrocyte distribution width [Ratio] by Automated count 11.0-15.0 [facility] Estimated glomerular filtrat ion rate (GFR) non- Americanon 03-10-2024 GFR/1.73 sq M.predicted among non-blacks MDRD (S/P/Bld) [Vol rate/Area] Estimated glomerular filtration rate (GFR) non- >=60 mL/min/1.73 m 2 [facility] Globulin Calc (S) [Mass/Vol] on 03-10-2024 Globulin (S) [Mass/Vol] Serum globulin measurement by calculation (mass/volume) [facility] Hematocrit Auto (Bld) [Volum e fraction]on 03-10-2024 Hematocrit (Bld) [Volume fraction] Hematocrit [Volume Fraction] of Blood by Automated count 42.0-54.0 [facility] Hemoglobin [Mass/volume] in Bloodon 03-10-2024 Hemoglobin (Bld) [Mass/Vol] Hemoglobin [Mass/volume] in Blood 14.0-18.0 [facility] Laboratory - Chemistry and C hemistry - challengeon 03-10-2024 Albumin [Mass/Vol] 3.5 g/dL 3.4-5.0 [facility] ALP [Catalytic activity/Vol] 58 U/L 46-116 [facility] ALT [Catalytic activity/Vol] 32 U/L 16-63 [facility] AST [Catalytic activity/Vol] 16 U/L 15-37 [facility] Bilirubin [Mass/Vol] 0.8 mg/dL 0.2-1.0 [facility] Calcium [Mass/Vol] 10.4 mg/dL High 8.5-10.1 [facility] Chloride [Moles/Vol] 107 mmol/L 98-107 [facility] Cholesterol [Mass/Vol] 199 mg/dL <=200 [facility] Cholesterol in HDL [Mass/Vol] 53 mg/dL 40-60 [facility] Comment on above: > or =60 mg/dl - LOW CARDIOVASCULAR RISK<40 mg/dl - HIGH CARDIOVASCULAR RISK CO2 [Moles/Vol] 28.7 mmol/L 21.0-32.0 [facility] Creatinine [Mass/Vol] 0.85 mg/dL 0.70-1.30 [facility] GFR/1.73 sq M.predicted MDRD (S/P/Bld) [Vol rate/Area] mL/min/{1.73_m2} >=60 mL/min/1.73 m 2 [facility] Glucose [Mass/Vol] 100 mg/dL 74-106 [facility] Potassium [Moles/Vol] 4.0 mmol/L 3.5-5.1 [facility] Protein [Mass/Vol] 6.8 g/dL 6.4-8.2 [facility] Sodium [Moles/Vol] 143 mmol/L 136-145 [facility] Triglyceride [Mass/Vol] 100 mg/dL <=150 [facility] TSH Qn 0.915 m[IU]/L 0.358-3.740 [facility] Urea nitrogen [Mass/Vol] 15.0 mg/dL 7.0-18.0 [facility] Urea nitrogen/Creatinine [Mass ratio] 17.6 mg/mg [facility] Laboratory - Hematology and Cell countson 03-10-2024 Immature granulocytes/100 WBC (Bld) 0.2 % 0.0-0.5 [facility] Leukocytes [#/volume] correc evelyne for nucleated erythrocytes in Blood by Automated counon 03-10-2024 WBC corrected for nucl RBC Auto (Bld) [#/Vol] Leukocytes [#/volume] corrected for nucleated erythrocytes in Blood by Automated coun 4.0-11.0 [facility] Lymphocytes Auto (Bld) [#/Vo l]on 03-10-2024 Lymphocytes (Bld) [#/Vol] Lymphocytes [#/volume] in Blood by Automated count 1.2-3.8 [facility] Lymphocytes/100 WBC Auto (Bl d)on 03-10-2024 Lymphocytes/100 WBC (Bld) Lymphocytes/100 leukocytes in Blood by Automated count 20.5-60.0 [facility] MCH Auto (RBC) [Entitic mass ]on 03-10-2024 MCH (RBC) [Entitic mass] MCH [Entitic ma ss] by Automated count 25.9-34.0 [facility] MCHC Auto (RBC) [Mass/Vol]on 03-10-2024 MCHC (RBC) [Mass/Vol] MCHC [Mass/volume] by Automated count 29.9-35.2 [facility] MCV Auto (RBC) [Entitic vol] on 03-10-2024 MCV (RBC) [Entitic vol] MCV [Entitic vol ume] by Automated count High 80.0-94.0 [facility] Monocytes Auto (Bld) [#/Vol] on 03-10-2024 Monocytes (Bld) [#/Vol] Automated blood monocyte count 0.3-0.8 [facility] Monocytes/100 WBC Auto (Bld) on 03-10-2024 Monocytes/100 WBC (Bld) Automated monocyte % 1. 7-12.0 [facility] Neutrophils Auto (Bld) [#/Vo l]on 03-10-2024 Neutrophils (Bld) [#/Vol] Neutrophils [#/volume] in Blood by Automated count 1.4-6.5 [facility] Neutrophils/100 WBC Auto (Bl d)on 03-10-2024 Neutrophils/100 WBC (Bld) Automated neutrophil % 43.0-75.0 [facility] No Panel Informationon 03-10 Eosinophils # (Auto) 0.2 10 3/uL 0.0-0.7 [facility] Immature Granulocyte # (Auto) 0.01 10 3/uL 0.00-0.03 [facility] Prostate Specific Antigen Screen 1.32 ng/mL <=4.00 [facility] Platelet mean volume Auto (B ld) [Entitic vol]on 03-10-2024 Platelet mean volume (Bld) [Entitic vol] Platelet mean volume [Entitic volume] in Blood by Automated count Low 9.5-13.5 [facility] Platelets Auto (Bld) [#/Vol] on 03-10-2024 Platelets (Bld) [#/Vol] Platelets [#/vol ume] in Blood by Automated count 150-450 [facility] RBC Auto (Bld) [#/Vol]on RBC (Bld) [#/Vol] Erythrocytes [#/volume] in Blood by Automated count Low 4.70-6.10 [facility] Serum or plasma albumin/glob ulin mass ratioon 03-10-2024 Albumin/Globulin [Mass ratio] Serum or plasma albumin/globulin mass ratio [facility] Serum or plasma anion gap de terminationon 03-10-2024 Anion gap [Moles/Vol] Serum or plasma an ion gap determination [facility] Serum or plasma total choles terol/high density lipoprotein (HDL) cholesterol mass ranjit 03-10-2024 Cholesterol.total/Choles terol in HDL [Mass ratio] Serum or plasma total cholesterol/high density lipoprotein (HDL) cholesterol mass rat [facility] Comment on above: 3.3 - 4.4 LOW RISK4. 4 - 7.1 AVERAGE RISK7.1 - 11.0 MODERATE RISK>11.0 HIGH RISK EMG 2 Extremitieson 02-24-20 EMG/NCS BLE Severe sensory-motor polyneuropathy. [facility] NVC 9-10 Nerveson 02-24-2024 EMG/NCS BLE Severe sensory-motor polyneuropathy. [facility] HPon 12-09-2023 [facility] Electrophysiology Consult Note Reason for visit: Afib [...] up with [facility] with [facility] protocol which was negative for inducible arrhythmias [...] CVL report IMPRESSION: Successful direct-current cardioversion with restorationism of sinus rhythm from atrial fibrillation with [...] up with [facility] with [facility] protocol which was negative for inducible arrhythmias [...] CARDIAC CATHETERIZATION (more content not included)... Normal [facility] NURSNOTEon 12-09-2023 NURSNOTE RN educated pt on d/ c instructions. RN encouraged pt to voice any questions or concerns. Pt verbalizes no questions or concerns at this time. Pt walked off of unit with all of belongings. [facility] 36on 12-02-2023 36 Regarding echo resul t from 11/24/2023: NILA Avitia MA; Alpesh Davis MD Severe biatrial enlargement LV systolic function low end of normal 50-55% RV normal size and function, normal rt sided pressures- no fluid overload LM on patient's VM. Normal [facility] Basophils Auto (Bld) [#/Vol] on 12-01-2023 Basophils (Bld) [#/Vol] 0.0 10 3/uL 0.0-0.1 [facility] Basophils/100 WBC Auto (Bld) on 12-01-2023 Basophils/100 WBC (Bld) 0.5 % 0.2-2.0 [facility] Eosinophils/100 WBC Auto (Bl d)on 12-01-2023 Eosinophils/100 WBC (Bld) 1.1 % 0.9-7.0 [facility] Erythrocyte distribution wid th Auto (RBC) [Ratio]on 12-01-2023 Erythrocyte distribution width (RBC) [Ratio] 12.8 % 11.0-15.0 [facility] Hematocrit Auto (Bld) [Volum e fraction]on 12-01-2023 Hematocrit (Bld) [Volume fraction] 40.8 % Low 42.0-54.0 [facility] Hemoglobin [Mass/volume] in Bloodon 12-01-2023 Hemoglobin (Bld) [Mass/Vol] 13.6 g/dL Low 14.0-18.0 [facility] Laboratory - Hematology and Cell countson 12-01-2023 Immature granulocytes/100 WBC (Bld) 0.3 % 0.0-0.5 [facility] Leukocytes [#/volume] correc evelyne for nucleated erythrocytes in Blood by Automated counon 12-01-2023 WBC corrected for nucl RBC Auto (Bld) [#/Vol] 6.4 10 3/uL 4.0-11.0 [facility] Lymphocytes Auto (Bld) [#/Vo l]on 12-01-2023 Lymphocytes (Bld) [#/Vol] 1.3 10 3/uL 1.2-3.8 [facility] Lymphocytes/100 WBC Auto (Bl d)on 12-01-2023 Lymphocytes/100 WBC (Bld) 20.7 % 20.5-60.0 [facility] MCH Auto (RBC) [Entitic mass ]on 12-01-2023 MCH (RBC) [Entitic mass] 31.7 pg 25.9-34.0 [facility] MCHC Auto (RBC) [Mass/Vol]on 12-01-2023 MCHC (RBC) [Mass/Vol] 33.3 g/dL 29.9-35.2 [facility] MCV Auto (RBC) [Entitic vol] on 12-01-2023 MCV (RBC) [Entitic vol] 95.1 fL High 80.0-94.0 [facility] Monocytes Auto (Bld) [#/Vol] on 12-01-2023 Monocytes (Bld) [#/Vol] 0.8 10 3/uL 0.3-0.8 [facility] Monocytes/100 WBC Auto (Bld) on 12-01-2023 Monocytes/100 WBC (Bld) 11.8 % 1.7-12.0 [facility] Neutrophils Auto (Bld) [#/Vo l]on 12-01-2023 Neutrophils (Bld) [#/Vol] 4.2 10 3/uL 1.4-6.5 [facility] Neutrophils/100 WBC Auto (Bl d)on 12-01-2023 Neutrophils/100 WBC (Bld) 65.6 % 43.0-75.0 [facility] No Panel Informationon 11-30 Eosinophils # (Auto) 0.1 10 3/uL 0.0-0.7 [facility] Immature Granulocyte # (Auto) 0.02 10 3/uL 0.00-0.03 [facility] Platelet mean volume Auto (B ld) [Entitic vol]on 12-01-2023 Platelet mean volume (Bld) [Entitic vol] 8.9 fL Low 9.5-13.5 [facility] Platelets Auto (Bld) [#/Vol] on 12-01-2023 Platelets (Bld) [#/Vol] 265 10 3/uL 150-450 [facility] RBC Auto (Bld) [#/Vol]on RBC (Bld) [#/Vol] 4.29 10 6/uL Low 4.70-6.10 [facility] CNOVon 01-13-2023 CNOV Office Visit (ORFWHP ) BANG SHARMA ([id number]) 1950 M Date Time Provider Department 01/13/23 2:30 PM HARESH PINEDA ORFWHP During your visit today, we recorded the following information about you: Haresh Pineda MD 01/13/2023 4:19 PM Signed Orthopaedic Surgery Follow-Up Clinic Note Surgery/Date: 08/27/2017 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 (CPT 98057 - 22) Placement of Prophylactic Carbon Fiber Tibial Nail, Right Tibia (CPT 04161) High Speed Ehsan and Adjuvant Treatment with 10% H202 (CPT 74715) Neruolysis and Dissection of Deep Peroneal Nerve (CPT 13991) Right Iliac [place] [facility]/[place] ( CPT 57864) Diagnosis: Right Tibial Diaphysis Cartilage Lesion with [...] the date of the service which included [id number] patient care, completing clinical documentation, obtaining and/or [...] information added by medical student, resident, nurse, OR RN/PA-C that I have placed my signature directly below I have verified and either instructed them to document in a scribe function or document appropriately in the chart during the patient visit. Haresh Beavers (more content not included)... Normal [facility] FLECAINEon 06-24-2022 FLECAINIDE 0.39 ug/ml Normal 0.20 - 1.00 [facility] Comment on above: Result Comment: Flec ainide reported as flecainide acetate. The reference range also is defined as flecaininde acetate. This test was developed and its performance characteristics determined by [employer]. It has not been cleared or approved by the Food and Drug Administration. Performed By: #### T SH, BMP, LIPID, ALT #### [facility] [address] [place] [address] Dr. Fidel Paige CBC AUTO DIFFon 06-09-2022 BASO # 0.0 103/ul Normal 0.0-0.1 [facility] Comment on above: Performed By: #### C BC #### [facility] [address] [place] [address] Dr. Fidel Paige Basophils/100 WBC (Bld) 0.6 % Normal 0.2-2.0 [facility] Comment on above: Performed By: #### C BC #### [facility] [address] [place] [address] Dr. Fidel Paige EO # 0.1 103/ul Normal 0.0-0.7 [facility] Comment on above: Performed By: #### C BC #### [facility] [address] [place] [address] Dr. Fidel Paige Eosinophils/100 WBC (Bld) 2.8 % Normal 0.9-7.0 [facility] Comment on above: Performed By: #### C BC #### [facility] [address] [place] [address] Dr. Fidel Paige Erythrocyte distribution width (RBC) [Ratio] 12.8 % Normal 11.0-15.0 [facility] Comment on above: Performed By: #### C BC #### [facility] [address] [place] [address] Dr. Fidel Paige Hematocrit (Bld) [Volume fraction] 41.9 % Critically low 42.0-54.0 [facility] Comment on above: Performed By: #### C BC #### [facility] [address] [place] [address] Dr. Fidel Paige Hemoglobin (Bld) [Mass/Vol] 14.1 g/dL Normal 14.0-18.0 [facility] Comment on above: Performed By: #### C BC #### [facility] [address] [place] [address] Dr. Fidel Paige IG # 0.01 10e3/ul Normal 0.00-0.03 [facility] Comment on above: Performed By: #### C BC #### [facility] [address] [place] [address] Dr. Fidel Paige IG % 0.2 % Normal 0.0-0.5 [facility] Comment on above: Performed By: #### C BC #### [facility] [address] [place] [address] Dr. Fidel Paige LYMPH # 1.4 103/ul Normal 1.2-3.8 [facility] Comment on above: Performed By: #### C BC #### [facility] [address] [place] [address] Dr. Fidel Paige Lymphocytes/100 WBC (Bld) 29.2 % Normal 20.5-60.0 [facility] Comment on above: Performed By: #### C BC #### [facility] [address] [place] [address] Dr. Fidel Paige MANUAL DIFF REQ NO Normal [facility] Comment on above: Performed By: #### C BC #### [facility] [address] [place] [address] Dr. Fidel Paige MCH (RBC) [Entitic mass] 31.3 pg Normal 25.9-34.0 [facility] Comment on above: Performed By: #### C BC #### [facility] [address] [place] [address] Dr. Fidel Paige MCHC (RBC) [Mass/Vol] 33.7 g/dL Normal 29.9-35.2 [facility] Comment on above: Performed By: #### C BC #### [facility] [address] [place] [address] Dr. Fidel Paige MCV (RBC) [Entitic vol] 92.9 fL Normal 80.0-94.0 [facility] Comment on above: Performed By: #### C BC #### [facility] [address] [address] [address] Fidel Paige MONO # 0.7 103/ul Normal 0.3-0.8 [facility] Comment on above: Performed By: #### C BC #### [facility] [address] [address] [address] Fidel Paige Monocytes/100 WBC (Bld) 13.4 % Critically high 1.7-12. 0 [facility] Comment on above: Performed By: #### C BC #### [facility] [address] [place] [address] Dr. Fidel Paige NEUT # 2.7 103/ul Normal 1.4-6.5 [facility] Comment on above: Performed By: #### C BC #### [facility] [address] [place] [address] Dr. Fidel Paige Neutrophils/100 WBC (Bld) 53.8 % Normal 43.0-75.0 [facility] Comment on above: Performed By: #### C BC #### [facility] [address] [place] [address] Dr. Fidel Paige Platelet mean volume (Bld) [Entitic vol] 8.7 fL Critically low 9.5-13.5 [facility] Comment on above: Performed By: #### C BC #### [facility] [address] [place] [address] Dr. Fidel Paige PLT 278 103/ul Normal 150-450 [facility] Comment on above: Performed By: #### C BC #### [facility] [address] [place] [address] Dr. Fidel Paige RBC 4.51 106/ul Critically low 4.70-6.10 [facility] Comment on above: Performed By: #### C BC #### [facility] [address] [place] [address] Dr. Fidel Paige WBC 4.9 103/ul Normal 4.0-11.0 [facility] Comment on above: Performed By: #### C BC #### [facility] [address] [place] [address] Dr. Fidel Paige MAGNESIUMon 06-09-2022 Magnesium [Mass/Vol] 2.0 mg/dL Normal 1.8-2.4 [facility] Comment on above: Performed By: #### T SH, MG, BMP #### [facility] [address] [place] [address] Dr. Fidel Paige PROF CHEM 8 (BAS METB)on Anion gap [Moles/Vol] 8.2 mmol/L Normal [facility] Comment on above: Performed By: #### T SH, MG, BMP #### [facility] [address] [place] [address] Dr. Fidel Paige Calcium [Mass/Vol] 10.2 mg/dL Critically high 8.5-10.1 [facility] Comment on above: Performed By: #### T SH, MG, BMP #### [facility] [address] [place] [address] Dr. Fidel Paige Chloride [Moles/Vol] 105 mmol/L Normal 98-107 [facility] Comment on above: Performed By: #### T SH, MG, BMP #### [facility] [address] [place] [address] Dr. Fidel Paige CO2 [Moles/Vol] 29.6 mmol/L Normal 21.0-32.0 [facility] Comment on above: Performed By: #### T SH, MG, BMP #### [facility] [address] [place] [address] Dr. Fidel Paige Creatinine [Mass/Vol] 0.81 mg/dL Normal 0.70-1.30 [facility] Comment on above: Performed By: #### T SH, MG, BMP #### [facility] [address] [place] [address] Dr. Fidel Paige EGFR-AF PORTUGUESE >60 Normal >=60 [facility] Comment on above: Performed By: #### T SH, MG, BMP #### [facility] [address] [place] [address] Dr. Fidel Paige EGFR-NON AF PORTUGUESE >60 Normal >=60 [facility] Comment on above: Performed By: #### T SH, MG, BMP #### [facility] [address] [place] [address] Dr. Fidel Paige Glucose [Mass/Vol] 100 mg/dL Normal 74-106 [facility] Comment on above: Performed By: #### T SH, MG, BMP #### [facility] [address] [place] [address] Dr. Fidel Paige Potassium [Moles/Vol] 3.8 mmol/L Normal 3.5-5.1 [facility] Comment on above: Performed By: #### T SH, MG, BMP #### [facility] [address] [place] [address] Dr. Fidel Paige Sodium [Moles/Vol] 139 mmol/L Normal 136-145 [facility] Comment on above: Performed By: #### T SH, MG, BMP #### [facility] [address] [place] [address] Dr. Fidel Paige Urea nitrogen [Mass/Vol] 12.0 mg/dL Normal 7.0-18.0 [facility] Comment on above: Performed By: #### T SH, MG, BMP #### [facility] [address] [place] [address] Dr. Fidel Paige Urea nitrogen/Creatinine [Mass ratio] 14.8 mg/mg Normal [facility] Comment on above: Performed By: #### T SH, MG, BMP #### [facility] [address] [place] [address] Dr. Fidel Paige TSHon 06-09-2022 TSH 0.891 uIU/mL Normal 0.358-3.740 [facility] Comment on above: Performed By: #### T SH, MG, BMP #### [facility] [address] [place] [address] Dr. Fidel Paige CBC AUTO DIFFon 02-07-2022 BASO # 0.0 103/ul Normal 0.0-0.1 [facility] Comment on above: Performed By: #### T SH, BMP, LIPID, ALT #### [facility] [address] [place] [address] Dr. Fidel Paige Basophils/100 WBC (Bld) 0.3 % Normal 0.2-2.0 [facility] Comment on above: Performed By: #### T SH, BMP, LIPID, ALT #### [facility] [address] [place] [address] Dr. Fidel Paige EO # 0.1 103/ul Normal 0.0-0.7 [facility] Comment on above: Performed By: #### T SH, BMP, LIPID, ALT #### [facility] [address] [place] [address] Dr. Fidel Paige Eosinophils/100 WBC (Bld) 2.1 % Normal 0.9-7.0 [facility] Comment on above: Performed By: #### T SH, BMP, LIPID, ALT #### [facility] [address] [place] [address] Dr. Fidel Paige Erythrocyte distribution width (RBC) [Ratio] 13.1 % Normal 11.0-15.0 [facility] Comment on above: Performed By: #### T SH, BMP, LIPID, ALT #### [facility] [address] [place] [address] Dr. Fidel Paige Hematocrit (Bld) [Volume fraction] 45.2 % Normal 42.0-54.0 [facility] Comment on above: Performed By: #### T SH, BMP, LIPID, ALT #### [facility] [address] [place] [address] Dr. Fidel Paige Hemoglobin (Bld) [Mass/Vol] 14.8 g/dL Normal 14.0-18.0 [facility] Comment on above: Performed By: #### T SH, BMP, LIPID, ALT #### [facility] [address] [place] [address] Dr. Fidel Paige IG # 0.02 10e3/ul Normal 0.00-0.03 [facility] Comment on above: Performed By: #### T SH, BMP, LIPID, ALT #### [facility] [address] [place] [address] Dr. Fidel Paige IG % 0.3 % Normal 0.0-0.5 [facility] Comment on above: Performed By: #### T SH, BMP, LIPID, ALT #### [facility] [address] [place] [address] Dr. Fidel Paige LYMPH # 1.4 103/ul Normal 1.2-3.8 [facility] Comment on above: Performed By: #### T SH, BMP, LIPID, ALT #### [facility] [address] [place] [address] Dr. Fidel Paige Lymphocytes/100 WBC (Bld) 23.2 % Normal 20.5-60.0 [facility] Comment on above: Performed By: #### T SH, BMP, LIPID, ALT #### [facility] [address] [place] [address] Dr. Fidel Paige MANUAL DIFF REQ NO Normal [facility] Comment on above: Performed By: #### T SH, BMP, LIPID, ALT #### [facility] [address] [place] [address] Dr. Fidel Paige MCH (RBC) [Entitic mass] 31.6 pg Normal 25.9-34.0 [facility] Comment on above: Performed By: #### T SH, BMP, LIPID, ALT #### [facility] [address] [place] [address] Dr. Fidel Paige MCHC (RBC) [Mass/Vol] 32.7 g/dL Normal 29.9-35.2 [facility] Comment on above: Performed By: #### T SH, BMP, LIPID, ALT #### [facility] [address] [place] [address] Dr. Fidel Paige MCV (RBC) [Entitic vol] 96.6 fL Critically high 80.0-94 .0 [facility] Comment on above: Performed By: #### T SH, BMP, LIPID, ALT #### [facility] [address] [place] [address] Dr. Fidel Paige MONO # 0.7 103/ul Normal 0.3-0.8 [facility] Comment on above: Performed By: #### T SH, BMP, LIPID, ALT #### [facility] [address] [address] [address] Fidel Paige Monocytes/100 WBC (Bld) 11.7 % Normal 1.7-12.0 [facility] Comment on above: Performed By: #### T SH, BMP, LIPID, ALT #### [facility] [address] [place] [address] Dr. Fidel Paige NEUT # 3.6 103/ul Normal 1.4-6.5 [facility] Comment on above: Performed By: #### T SH, BMP, LIPID, ALT #### [facility] [address] [place] [address] Dr. Fidel Paige Neutrophils/100 WBC (Bld) 62.4 % Normal 43.0-75.0 [facility] Comment on above: Performed By: #### T SH, BMP, LIPID, ALT #### [facility] [address] [place] [address] Dr. Fidel Paige Platelet mean volume (Bld) [Entitic vol] 8.8 fL Critically low 9.5-13.5 [facility] Comment on above: Performed By: #### T SH, BMP, LIPID, ALT #### [facility] [address] [place] [address] Dr. Fidel Paige PLT 283 103/ul Normal 150-450 [facility] Comment on above: Performed By: #### T SH, BMP, LIPID, ALT #### [facility] [address] [place] [address] Dr. Fidel Paige RBC 4.68 106/ul Critically low 4.70-6.10 [facility] Comment on above: Performed By: #### T SH, BMP, LIPID, ALT #### [facility] [address] [place] [address] Dr. Fidel Paige WBC 5.8 103/ul Normal 4.0-11.0 [facility] Comment on above: Performed By: #### T SH, BMP, LIPID, ALT #### [facility] [address] [place] [address] Dr. Fidel Paige LIPID PROFILEon 02-07-2022 CHOL-HDL RATIO NORM SEE BELOW Normal [facility] Comment on above: Result Comment: 3.3 - 4.4 LOW RISK 4.4 - 7.1 AVERAGE RISK 7.1 - 11.0 MODERATE RISK >11.0 HIGH RISK Performed By: #### T SH, BMP, LIPID, ALT #### [facility] [address] [address] [address] Fidel Paige Cholesterol [Mass/Vol] 191 mg/dL Normal <=200 [facility] Comment on above: Performed By: #### T SH, BMP, LIPID, ALT #### [facility] [address] [address] [address] Fidel Paige Cholesterol in HDL [Mass/Vol] 42 mg/dL Normal 40-60 [facility] Comment on above: Performed By: #### T SH, BMP, LIPID, ALT #### [facility] [address] [place] [address] Dr. Fidel Paige Cholesterol in LDL [Mass/Vol] 118.0 mg/dL Normal [facility] Comment on above: Performed By: #### T SH, BMP, LIPID, ALT #### [facility] [address] [address] [address] Fidel Paige Cholesterol.total/Choles terol in HDL [Mass ratio] 4.5 {ratio} Normal [facility] Comment on above: Performed By: #### T SH, BMP, LIPID, ALT #### [facility] [address] [address] [address] Fidel Paige HDL NORMAL > or = 60 mg/dl - LO W CARDIOVASCULAR RISK <40 mg/dl - HIGH CARDIOVASCULAR RISK Normal [facility] Comment on above: Performed By: #### T SH, BMP, LIPID, ALT #### [facility] [address] [place] [address] Dr. Fidel Paige LDL CALC NORMAL SEE BELOW Normal [facility] Comment on above: Result Comment: <100 mg/dl OPTIMAL 100 - 129 mg/dl NEAR OR ABOVE OPTIMAL 130 - 159 mg/dl BORDERLINE HIGH 160 - 189 mg/dl HIGH >190 mg/dl VERY HIGH Performed By: #### T SH, BMP, LIPID, ALT #### [facility] [address] [address] [address] Fidel Paige Triglyceride [Mass/Vol] 155 mg/dL Critically high <=150 [facility] Comment on above: Performed By: #### T SH, BMP, LIPID, ALT #### [facility] [address] [address] [address] Fidel Paige VLDL CALC 31.0 mg/dL Normal [facility] Comment on above: Performed By: #### T SH, BMP, LIPID, ALT #### [facility] [address] [address] [address] Fidel Paige PROF CHEM 8 (BAS METB)on Anion gap [Moles/Vol] 11.0 mmol/L Normal [facility] Comment on above: Performed By: #### T SH, BMP, LIPID, ALT #### [facility] [address] [place] [address] Dr. Fidel Paige Calcium [Mass/Vol] 10.1 mg/dL Normal 8.5-10.1 [facility] Comment on above: Performed By: #### T SH, BMP, LIPID, ALT #### [facility] [address] [place] [address] Dr. Fidel Paige Chloride [Moles/Vol] 105 mmol/L Normal 98-107 [facility] Comment on above: Performed By: #### T SH, BMP, LIPID, ALT #### [facility] [address] [place] [address] Dr. Fidel Paige CO2 [Moles/Vol] 29.0 mmol/L Normal 21.0-32.0 [facility] Comment on above: Performed By: #### T SH, BMP, LIPID, ALT #### [facility] [address] [place] [address] Dr. Fidel Paige Creatinine [Mass/Vol] 0.85 mg/dL Normal 0.70-1.30 [facility] Comment on above: Performed By: #### T SH, BMP, LIPID, ALT #### [facility] [address] [place] [address] Dr. Fidel Paige EGFR-AF PORTUGUESE >60 Normal >=60 [facility] Comment on above: Performed By: #### T SH, BMP, LIPID, ALT #### [facility] [address] [place] [address] Dr. Fidel Paige EGFR-NON AF PORTUGUESE >60 Normal >=60 [facility] Comment on above: Performed By: #### T SH, BMP, LIPID, ALT #### [facility] [address] [place] [address] Dr. Fidel Paige Glucose [Mass/Vol] 101 mg/dL Normal 74-106 [facility] Comment on above: Performed By: #### T SH, BMP, LIPID, ALT #### [facility] [address] [place] [address] Dr. Fidel Paige Potassium [Moles/Vol] 4.0 mmol/L Normal 3.5-5.1 [facility] Comment on above: Performed By: #### T SH, BMP, LIPID, ALT #### [facility] [address] [place] [address] Dr. Fidel Paige Sodium [Moles/Vol] 141 mmol/L Normal 136-145 [facility] Comment on above: Performed By: #### T SH, BMP, LIPID, ALT #### [facility] [address] [place] [address] Dr. Fidel Paige Urea nitrogen [Mass/Vol] 13.0 mg/dL Normal 7.0-18.0 [facility] Comment on above: Performed By: #### T SH, BMP, LIPID, ALT #### [facility] [address] [place] [address] Dr. Fidel Paige Urea nitrogen/Creatinine [Mass ratio] 15.3 mg/mg Normal [facility] Comment on above: Performed By: #### T SH, BMP, LIPID, ALT #### [facility] [address] [place] [address] Dr. Fidel Paige [facility] 02-07-2022 ALT [Catalytic activity/Vol] 26 U/L Normal 16-63 [facility] Comment on above: Performed By: #### T SH, BMP, LIPID, ALT #### [facility] [address] [place], [place] [address] Dr. Fidel Paige TSHon 02-07-2022 TSH 0.856 uIU/mL Normal 0.358-3.740 [facility] Comment on above: Performed By: #### T SH, BMP, LIPID, ALT #### [facility] [address] [place], [place] [address] Dr. Fidel Paige XR CHEST 2V FRONTAL/LATon [...] 12:51 Normal [facility] Vital Signs Date Time Vital Sign Value Performing Clinician Facility 12-13-2024 15: Body height 185.42 cm Alvin Ball DO Work Phone: [facility] 12-13-2024 15:040 Body mass index (BMI) [Ratio] 35.9 kg/m2 Alvin Ball DO Work Phone: [facility] 12-13-2024 15:[id number] Body weight 123.43 kg Alvin Ball DO Work Phone: [facility] 12-13-2024 15:040 Diastolic blood pressure 76 mm[Hg] Alvin Ball DO Work Phone: [facility] 12-13-2024 15:19040 Heart rate 71 /min Alvin Ball DO Work Phone: [facility] 12-13-2024 15:[id number] Respiratory rate 12 /min Alvin Ball DO Work Phone: [facility] 12-13-2024 15:19-0400 Systolic blood pressure 131 mm[Hg] Alvin Ball DO Work Phone: [facility] 11-01-2024 09:07-0400 Body height 188 cm Pacc 6 Work Phone: [facility] 11-01-2024 09:07-0400 Body mass index (BMI) [Ratio] 34.02 kg/m2 Pacc 6 Work Phone: [facility] 11-01-2024 09:07-0400 Body temperature 97.59 [degF] Pacc 6 Work Phone: [facility] 11-01-2024 09:07-0400 Body weight 120.2 kg Pacc 6 Work Phone: [facility] 11-01-2024 09:07-0400 Diastolic blood pressure 79 mm[Hg] Pacc 6 Work Phone: [facility] 11-01-2024 09:07-0400 Heart rate 62 /min Pacc 6 Work Phone: [facility] 11-01-2024 09:07-0400 SaO2% (BldA) [Mass fraction] 96 % Pacc 6 Work Phone: [facility] 11-01-2024 09:07-0400 Systolic blood pressure 145 mm[Hg] Pacc 6 Work Phone: [facility] 09-15-2024 11:53-0400 Body height 185.42 cm [facility] 09-15-2024 11:53-0400 Body mass index (BMI) [Ratio] 35.2 kg/m2 [facility] 09-15-2024 11:53-0400 Body weight 121.22 kg [facility] 09-15-2024 11:53-0400 Diastolic blood pressure 81 mm[Hg] [facility] 09-15-2024 11:53-0400 Diastolic blood pressure 89 mm[Hg] Alvin Ball DO Work Phone: [facility] 09-15-2024 11:53-0400 Heart rate 73 /min [facility] 09-15-2024 11:53-0400 Respiratory rate 12 /min [facility] 09-15-2024 11:53-0400 SaO2% (BldA) [Mass fraction] 95 % [facility] 09-15-2024 11:53-0400 Systolic blood pressure 146 mm[Hg] [facility] 09-15-2024 11:53-0400 Systolic blood pressure 139 mm[Hg] Alvin Lo DO Work Phone: [facility] 09-13-2024 11:05-0400 Body height 189.2 cm Geneva Butler MD Work Phone: [facility] 09-13-2024 11:05-0400 Body mass index (BMI) [Ratio] 34.42 kg/m2 Geneva Butler MD Work Phone: [facility] 09-13-2024 11:05-0400 Body weight 123.2 kg Geneva Butler MD Work Phone: [facility] 09-13-2024 11:05-0400 Diastolic blood pressure 63 mm[Hg] Geneva Butler MD Work Phone: [facility] 09-13-2024 11:05-0400 Heart rate 75 /min Geneva Butler MD Work Phone: [facility] 09-13-2024 11:05-0400 Systolic blood pressure 124 mm[Hg] Geneva Butler MD Work Phone: [facility] 08-30-2024 11:42-0400 Body height 185.42 cm [facility] 08-30-2024 11:42-0400 Body mass index (BMI) [Ratio] 34.4 kg/m2 [facility] 08-30-2024 11:42-0400 Body weight 118.44 kg [facility] 08-30-2024 11:42-0400 Diastolic blood pressure 70 mm[Hg] [facility] 08-30-2024 11:42-0400 Heart rate 80 /min [facility] 08-30-2024 11:42-0400 Respiratory rate 12 /min [facility] 08-30-2024 11:42-0400 Systolic blood pressure 135 mm[Hg] [facility] 08-16-2024 15:05-0400 Body mass index (BMI) [Ratio] 33.95 kg/m2 Herber Donald MD Work Phone: [facility] 08-16-2024 15:05-0400 Body weight 123.2 kg Herber Donald MD Work Phone: [facility] 08-16-2024 15:05-0400 Diastolic blood pressure 70 mm[Hg] Herber Donald MD Work Phone: [facility] 08-16-2024 15:05-0400 Heart rate 64 /min Herber Donald MD Work Phone: [facility] 08-16-2024 15:05-0400 Systolic blood pressure 127 mm[Hg] Herber Donald MD Work Phone: [facility] 04-27-2024 15:30-0500 Body height 185.42 cm [facility] 04-27-2024 15:30-0500 Body mass index (BMI) [Ratio] 34.3 kg/m2 [facility] 04-27-2024 15:30-0500 Body weight 118.16 kg [facility] 04-27-2024 15:30-0500 Diastolic blood pressure 79 mm[Hg] [facility] 04-27-2024 15:30-0500 Heart rate 72 /min [facility] 04-27-2024 15:30-0500 Respiratory rate 20 /min [facility] 04-27-2024 15:30-0500 Systolic blood pressure 135 mm[Hg] [facility] 04-05-2024 13:44-0500 Body height 189.2 cm Amanda Mustafa DO Work Phone: [facility] 04-05-2024 13:44-0500 Body mass index (BMI) [Ratio] 31.92 kg/m2 Amanda Mustafa DO Work Phone: [facility] 04-05-2024 13:44-0500 Body weight 114.31 kg Amanda Moon DO Work Phone: [facility] 04-05-2024 13:44-0500 Diastolic blood pressure 86 mm[Hg] Amanda Moon DO Work Phone: [facility] 04-05-2024 13:44-0500 Heart rate 63 /min Amanda Moon DO Work Phone: [facility] 04-05-2024 13:44-0500 SaO2% (BldA) [Mass fraction] 97 % Amanda Moon DO Work Phone: [facility] 04-05-2024 13:44-0500 Systolic blood pressure 142 mm[Hg] Amanda Moon DO Work Phone: [facility] 03-11-2024 11:25-0500 Body mass index (BMI) [Ratio] 34 kg/m2 [facility] 03-11-2024 11:25-0500 Diastolic blood pressure 89 mm[Hg] [facility] 03-11-2024 11:25-0500 Systolic blood pressure 139 mm[Hg] [facility] 03-11-2024 11:04-0500 Body height 185.42 cm [facility] 03-11-2024 11:04-0500 Body weight 116.8 kg [facility] 03-11-2024 11:04-0500 Heart rate 74 /min [facility] 03-11-2024 11:04-0500 Respiratory rate 12 /min [facility] 02-22-2024 10:41-0500 Body height 189.2 cm Amanda Moon DO Work Phone: [facility] 02-22-2024 10:41-0500 Body mass index (BMI) [Ratio] 32.18 kg/m2 Amanda Moon DO Work Phone: [facility] 02-22-2024 10:41-0500 Body weight 115.21 kg Amanda Moon DO Work Phone: [facility] 02-22-2024 10:41-0500 Diastolic blood pressure 86 mm[Hg] Amanda Moon DO Work Phone: [facility] 02-22-2024 10:41-0500 Heart rate 88 /min Amanda Moon DO Work Phone: [facility] 02-22-2024 10:41-0500 SaO2% (BldA) [Mass fraction] 99 % Amanda Moon DO Work Phone: [facility] 02-22-2024 10:41-0500 Systolic blood pressure 142 mm[Hg] Amanda Moon DO Work Phone: [facility] 12-03-2023 11:04-0400 Body height 185.42 cm [facility] 12-03-2023 11:04-0400 Body mass index (BMI) [Ratio] 33.8 kg/m2 [facility] 12-03-2023 11:04-0400 Body weight 116.28 kg [facility] 12-03-2023 11:04-0400 Diastolic blood pressure 86 mm[Hg] [facility] 12-03-2023 11:04-0400 Heart rate 71 /min [facility] 12-03-2023 11:04-0400 Respiratory rate 12 /min [facility] 12-03-2023 11:04-0400 Systolic blood pressure 130 mm[Hg] [facility] Encounters Encounter Date Encounter Type Care Provider Facility Start: 12-13-2024 End: 12-13-2024 ambulatory Alvin Lo DO Work Phone: [facility] Work Phone: Start: 12-13-2024 End: 12-13-2024 Patient encounter procedure Alvin Lo DO [facility] Work Phone: Start: 12-05-2024 Non-patient / Non-visit Jeffrey Nguyen DIRECTOR SUPPLY -[facility] Work Phone: Start: 12-03-2024 Non-patient / [facility]-visit [facility] Work Phone: Start: 11-29-2024 End: 11-29-2024 Admission to same day surgery center Geneva Butler MD Work Phone: Endocrine Surgery Comment on above: Hyperparathyroidism (HCC) (Primary Dx) Start: 11-29-2024 End: 11-29-2024 Telemedicine consultation with patient Geneva Butler MD Work Phone: Endocrine Surgery Start: 11-29-2024 End: 11-29-2024 ambulatory GENEVA BUTLER Facility:[facility] Start: 11-22-2024 Non-patient / Non-visit Alvin gonzalez DO [facility] Work Phone: Start: 11-18-2024 End: 11-18-2024 Telephone encounter Geneva Butler MD Work Phone: Endocrine Surgery Comment on above: Post Op Start: 11-15-2024 ambulatory ALPESH [facility] Start: 11-15-2024 Non-patient / Non-visit Outside [facility] Work Phone: Start: 11-14-2024 End: 11-15-2024 ambulatory ALVIN LO Facility:[facility] Start: 11-01-2024 ambulatory GENEVA GOLDEN BUTLER Facility:[facility] Start: 11-01-2024 End: 11-01-2024 Subsequent hospital visit by physician [employer] Work Phone: Molecular Imaging Comment on above: Hyperparathyroidism (HCC) [E21.3] Start: 11-01-2024 Non-patient / Non-visit Geneva Butler MD -[facility] Work Phone: Start: 11-01-2024 End: 11-01-2024 ambulatory ALVIN LO Facility:[facility] Start: 11-01-2024 ambulatory GENEVA BUTLER Facility:[facility] Start: 11-01-2024 End: 11-01-2024 Subsequent hospital [...] Start: 11-01-2024 End: 11-01-2024 ambulatory ALVIN Juanjose NETCONG Facility:[facility] Start: 10-25-2024 End: 10-25-2024 ambulatory [facility] Start: 10-19-2024 End: 10-19-2024 ambulatory ALVIN LO Facility:[facility] Start: 10-04-2024 End: 10-10-2024 Telephone encounter Geneva Butler MD Work Phone: Endocrine Surgery Comment on above: NM Parathyroid Reque st Start: 09-15-2024 End: 09-15-2024 ambulatory [facility] Work Phone: Start: 09-15-2024 End: 09-15-2024 Patient encounter procedure Anne christopher [facility] Work Phone: Start: 09-13-2024 End: 09-13-2024 Patient encounter procedure Geneva Butler MD Work Phone: Endocrine Surgery Comment on above: Hyperparathyroidism (HCC) (Primary Dx) Start: 09-13-2024 End: 09-13-2024 ambulatory GENEVA BUTLER Facility:[facility] Start: 09-06-2024 ambulatory [facility] Start: 08-30-2024 End: 08-30-2024 ambulatory [facility] Work Phone: Start: 08-30-2024 End: 08-30-2024 Patient encounter procedure Anne christopher [facility] Work Phone: Start: 08-25-2024 Non-patient / Non-visit [facility] Phys[facility] Work Phone: Start: 08-25-2024 Non-patient / Non-visit [facility] Work Phone: Start: 08-24-2024 Non-patient / Non-visit [facility] Phys[facility] Work Phone: Start: 08-23-2024 Non-patient / Non-visit [facility] Work Phone: Start: [...] (FACE SHEET) Start: 08-16-2024 Non-patient / Non-visit [facility] Work Phone: Start: 08-16-2024 End: 08-16-2024 Patient encounter procedure Herber Donald MD Work Phone: Endocrinology Comment on above: Primary hyperparathy roidism (HCC) (Primary Dx); Hypercalcemia Start: 08-16-2024 End: 08-16-2024 ambulatory HERBER DONALD Facility:[facility] Start: 07-18-2024 Non-patient / Non-visit [facility] Work Phone: Start: 07-08-2024 End: 07-08-2024 [facility] Start: 07-07-2024 Non-patient / Non-visit [facility] Work Phone: Start: 07-04-2024 End: 07-04-2024 ambulatory ARLENE DEGROOT Not Available Start: 07-01-2024 ambulatory [facility] Start: 06-14-2024 End: 06-14-2024 ambulatory [facility] Start: 05-03-2024 ambulatory [facility] Start: 04-27-2024 End: 04-27-2024 ambulatory [facility] Work Phone: Start: 04-27-2024 End: 04-27-2024 Patient encounter procedure [facility] Work Phone: Start: 04-07-2024 End: 04-07-2024 Clinisync Result Encounter Amanda Mustafa DO Work Phone: [facility] Unsolicited Start: 04-07-2024 End: 04-07-2024 Clinisync Result Encounter Amanda Mustafa DO Work Phone: [facility] Unsolicited Start: 04-07-2024 Non-patient / Non-visit [facility] Work Phone: Start: 04-05-2024 End: 04-05-2024 Bamboo flowsheet Amanda Mustafa DO Work Phone: [facility] [address] Start: 04-05-2024 End: 04-05-2024 Bamboo flowsheet Amanda Mustafa DO Work Phone: [facility] [address] Start: 04-05-2024 End: 04-05-2024 Office outpatient visit 25 minutes Amadna Moon DO Work Phone: 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 Start: 03-11-2024 End: 03-11-2024 Patient encounter [facility] Work Phone: Start: 03-10-2024 Non-patient / Non-visit [facility] Work Phone: Start: 03-10-2024 Patient encounter procedure [facility] Start: 03-07-2024 ambulatory [facility] Start: 03-02-2024 Non-patient / Non-visit [facility] Work Phone: Start: 02-24-2024 End: 02-24-2024 ambulatory AMANDA MOON Not Available Start: 02-24-2024 End: 02-24-2024 Patient encounter procedure Amanda Moon DO Work Phone: [facility] Comment on above: Idiopathic periphera l neuropathy Start: 02-22-2024 End: 02-22-2024 Bamboo flowsheet Amanda Moon DO Work Phone: [facility] Start: 02-22-2024 End: 02-22-2024 Bamboo flowsheet Amanda Moon DO Work Phone: [facility] Start: 02-22-2024 End: 02-22-2024 ambulatory AMANDA MOON Not Available Start: 02-22-2024 End: 02-22-2024 Office outpatient new 45 minutes Amanda Moon DO Work Phone: [facility] Comment on above: Idiopathic periphera l neuropathy (Primary Dx); 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; Weakness; Numbness and tingling Start: 02-11-2024 ambulatory [facility] Start: 02-02-2024 ambulatory [facility] Start: 01-21-2024 ambulatory TEE NAGY [facility] Start: 12-09-2023 End: 12-09-2023 ambulatory [facility] Start: 12-03-2023 End: 12-03-2023 ambulatory [facility] Work Phone: Start: 12-03-2023 End: 12-03-2023 Patient encounter procedure [facility] Work Phone: Start: 12-01-2023 Non-patient / Non-visit [facility] [email or web address] Work Phone: Start: 06-04-2023 End: 06-04-2023 ambulatory Alvin Lo Other [facility] Other Start: 06-04-2023 Encounter by computer link Alvin Lo [facility] Start: 05-29-2023 End: 05-29-2023 ambulatory Alvin Lo Other [facility] Other Start: 05-29-2023 Telephone encounter Alvin Lo [facility] Start: 01-13-2023 End: 01-14-2023 ambulatory HARESH PINEDA Facility:[facility] Start: 01-12-2023 Orders Only Haresh Pineda [...] 11-09-2017 End: 11-10-2017 Patient encounter DEFAULT PHYSICIAN Facility:[facility] Procedures Date Procedure Procedure Detail Performing Clinician Start: 04-07-2024 ALL THYROID STIM HORMONE Amanda Moon DO Work Phone: Start: 03-15-2024 Follow-up visit Follow-up DREA LINO Start: 02-24-2024 End: 02-24-2024 Needle emg ea extremty w/paraspinl area complete Amanda Moon DO Work Phone: Start: 02-07-[address] JHONATHAN LO Comment on above: Performed By: #### T SH, BMP, LIPID, ALT #### [facility] [address] [place] [address] Dr. Fidel Paige Start: 11-05-2021 Radiologic exam ches t 2 views Eric Taylor APRN.OR RN Work Phone: Start: 11-05-2021 Radiologic examinati on tibia & fibula 2 views Eric Taylor APRN.OR RN Work Phone: Start: 06-30-2019 Adult depression scr eening assessment Haresh Pineda MD Work Phone: Plan of Treatment Date Care Activity Detail Author Start: 11-02-2027 Diabetes Screening Diabetes Screening [facility] Start: 10-02-2026 Urine microalbumin profile DTaP,Tdap,Td Vaccine (3 - Tdap) [facility] Start: 09-13-2025 BP Controlled (<130/80) BP Controlled (<130/80) [facility] Start: 08-16-2025 BP Controlled (<130/80) BP Controlled (<130/80) [facility] Start: 02-28-2025 End: 02-28-2025 Patient encounter procedure 02/28/2025 2:20 PM EST Office Visit Endocrinology [address] [place] [address] Herber Donald MD [address] [place] [address] [place] [address] Return in about 6 months (around 02/15/2025). Endocrinology Comment on above: Return in about 6 months (around ). Start: 02-16-2025 End: 05-18-2025 25-hydroxyvitamin D3 [Mass/volume] in Serum or Plasma VITAMIN D 25 HYDROXY Lab Routine Primary hyperparathyroidism (HCC) Expected: 02/16/2025, Expires: 05/18/2025 [facility] Comment on above: Expected: 02/16/2025, Expires: Start: 02-16-2025 End: 05-18-2025 Parathyrin.intact [Mass/volume] in Serum or Plasma PTH INTACT Lab Routine Primary hyperparathyroidism (HCC) Expected: 02/16/2025, Expires: 05/18/2025 [facility] Comment on above: Expected: 02/16/2025, Expires: Start: 02-16-2025 End: 05-18-2025 Renal function 2000 panel - Serum or Plasma RENAL FUNCTION PANEL Lab Routine Primary hyperparathyroidism (HCC) Expected: 02/16/2025, Expires: 05/18/2025 [facility] Work Phone: Comment on above: Expected: 02/16/2025, Expires: Start: 02-12-2025 Screening for malignant neoplasm of colon [facility] Start: 12-19-2024 Influenza vaccination Influenza Vaccine (#1) [facility] Start: 11-29-2024 End: 11-29-2024 Admission to same day surgery center 11/29/2024 2:20 PM EDT [facility] Endocrine Surgery [address] [id number] Geneva Butler MD [address] [place] [address] post op Endocrine Surgery Comment on above: post op Start: 11-14-2024 End: 11-14-2024 Admission to same day surgery center 11/14/2024 7:30 AM EDT - 11/14/2024 9:15 AM EDT Surgery [facility] Surgery [id number] [place], [place] [id number] Geneva Butler MD [address] [place] [address] PARATHYROIDECTOMY [facility] Surgery Comment on above: PARATHYROIDECTOMY Start: 11-14-2024 End: 11-14-2024 Parathyroidectomy/explorat ion parathyroids PARATHYROIDECTOMY Hyperparathyroidism (HCC) 11/14/2024 7:30 AM EDT MM OR Start: 11-14-2024 Subsequent hospital visit by physician 11/14/2024 7:30 AM EDT Hospital Encounter [facility] Surgery [address] [place], [place] [id number] Geneva Butler MD [address] [place] [address] Hyperparathyroidism (HCC) [E21.3] [facility] Surgery Comment on above: Hyperparathyroidism (HCC) [E21.3] Start: 11-01-2024 End: 11-01-2024 Patient encounter procedure 11/01/2024 1:30 PM EDT Appointment Molecular Imaging [address] [place] [address] NM PARATHYROID W SPECTCT Molecular Imaging Comment on above: NM PARATHYROID W SPECTCT Start: 11-01-2024 End: 11-01-2024 ambulatory Cardiology Comment on above: pre-op Start: 11-01-2024 End: 11-01-2024 Patient encounter procedure 11/01/2024 10:30 AM EDT Appointment Molecular Imaging [address] [place] [address] NM PARATHYROID W SPECTCT Molecular Imaging Comment on above: NM PARATHYROID W SPECTCT Start: 11-01-2024 End: 11-01-2024 Anesthesia consultation 11/01/2024 9:00 AM EDT PAT Pre Anesthesia [address] [place] [address] 6, [address] [id number] pre-op Pre Anesthesia Comment on above: pre-op Start: 09-13-2024 End: 09-13-2024 Patient encounter procedure 09/13/2024 12:20 PM EDT Office Visit Endocrine Surgery [address] [phone] [place] [address] [place] [id number] Pt okay to check-in at 11AM. [facility] Comment on above: Pt okay to check-in at 11AM. [facility] Start: 08-23-2024 End: 08-23-2024 Patient encounter procedure 08/23/2024 12:20 PM EDT Office Visit Endocrine Surgery [address] [phone] Geneva Butler MD [address] [place] [address] INTAKE PENDING-HYPERPARATHRYOIDIS M Endocrine Surgery Comment on above: INTAKE PENDING-HYPERPARATHRYOIDISM Start: 08-17-2024 End: 11-16-2024 Calcitriol [Mass/volume] in Serum or Plasma [facility] Comment on above: Expected: 08/17/2024 (Approximate), Expi res: 11/16/2024 Start: 08-17-2024 End: 11-16-2024 Calcium.ionized [Moles/volume] in Blood CALCIUM, IONIZED Lab Routine Hyperparathyroidism (HCC) Expected: 08/17/2024 (Approximate), Expires: 11/16/2024 [facility] Work Phone: Comment on above: Expected: 08/17/2024 (Approximate), Expi res: 11/16/2024 Start: 08-16-2024 End: 11-15-2024 25-hydroxyvitamin D3 [Mass/volume] in Serum or Plasma [facility] Comment on above: Expected: 08/16/2024, Expires: Start: 08-16-2024 End: 11-15-2024 Parathyrin.intact [Mass/volume] in Serum or Plasma [facility] Comment on above: Expected: 08/16/2024, Expires: Start: 08-16-2024 End: 11-15-2024 Renal function 2000 panel - Serum or Plasma [facility] Work Phone: Comment on above: Expected: 08/16/2024, Expires: Start: 07-04-2024 End: 07-04-2024 Patient encounter procedure 07/04/2024 4:00 PM EDT Office Visit [facility] [address] [place] [address] Arlene Degroot, NILA [address] [place], [place] [facility] [address] Start: 06-20-2024 Covid-19 Vaccine ( season) Covid-19 Vaccine () [facility] Start: 04-20-2024 Advance Directive Discussion Advance Directive Discussion [facility] Start: 04-05-2024 End: 04-05-2025 Cobalamin (Vitamin B12) [Mass/volume] in Serum or Plasma Vitamin B12 Lab Routine Idiopathic peripheral neuropathy Expected: 04/05/2024 (Approximate), Expires: 04/05/2025 [facility] Comment on above: Expected: 04/05/2024 (Approximate), Expi res: 04/05/2025 Start: 04-05-2024 End: 04-05-2025 Folate [Mass/volume] in Serum or Plasma Folate Lab Routine Idiopathic peripheral neuropathy Expected: 04/05/2024 (Approximate), Expires: 04/05/2025 [facility] Comment on above: Expected: 04/05/2024 (Approximate), Expi res: 04/05/2025 Start: 04-05-2024 End: 04-05-2025 Protein electrophoresis, serum Protein electrophoresis, serum Lab Routine Idiopathic peripheral neuropathy Expected: 04/05/2024 (Approximate), Expires: 04/05/2025 [facility] Comment on above: Expected: 04/05/2024 (Approximate), Expi res: 04/05/2025 Start: 04-05-2024 End: 04-05-2025 Thyrotropin [Units/volume] in Serum or Plasma TSH Lab Routine Idiopathic peripheral neuropathy Expected: 04/05/2024 (Approximate), Expires: 04/05/2025 [facility] Work Phone: Comment on above: Expected: 04/05/2024 (Approximate), Expi res: 04/05/2025 Start: 04-05-2024 End: 04-05-2024 Patient encounter procedure [facility] [address] Comment on above: Arrived Start: 02-24-2024 End: 02-24-2024 Patient encounter procedure 02/24/2024 1:00 PM EST Procedure Visit [facility] [address] [address] Amanda Mustafa DO [address] [place] [address] [facility] Start: 02-22-2024 End: 02-21-2025 Cobalamin (Vitamin B12) [Mass/volume] in Serum or Plasma Vitamin B12 Lab Routine Idiopathic peripheral neuropathy Expected: 02/22/2024 (Approximate), Expires: 02/21/2025 [facility] Work Phone: Comment on above: [...] peripheral neuropathy Expected: 02/22/2024 (Approximate), Expires: 02/21/2025 [facility] Comment on above: Expected: 02/22/2024 (Approximate), Expi res: 02/21/2025 Start: 02-22-2024 End: 02-21-2025 NVC 9-10 Nerves NVC 9-10 Nerves Neurology Routine Idiopathic peripheral neuropathy Expected: 02/22/2024 (Approximate), Expires: 02/21/2025 [facility] Comment on above: Expected: 02/22/2024 (Approximate), Expi res: 02/21/2025 Start: 02-22-2024 End: 02-21-2025 Protein electrophoresis, serum Protein electrophoresis, serum Lab Routine Idiopathic peripheral neuropathy Expected: 02/22/2024 (Approximate), Expires: 02/21/2025 [facility] Comment on above: Expected: 02/22/2024 (Approximate), Expi res: 02/21/2025 Start: 02-22-2024 End: 02-21-2025 Thyrotropin [Units/volume] in Serum or Plasma TSH Lab Routine Idiopathic peripheral neuropathy Expected: 02/22/2024 (Approximate), Expires: 02/21/2025 [facility] Comment on above: Expected: 02/22/2024 (Approximate), Expi res: 02/21/2025 Start: 12-19-2022 Influenza vaccination [facility] Start: 11-05-2022 End: 12-05-2022 Radiologic exam chest 2 views XR CHEST 2V FRONTAL/LAT Radiology Routine Chondrosarcoma (HCC) Expected: 11/05/2022 (Approximate), Expires: 12/05/2022 [facility] Work Phone: Comment on above: Expected: 11/05/2022 (Approximate), Expi res: 12/05/2022 Start: 11-05-2022 End: 12-05-2022 XR TIBIA FIBULA 2V AP/LAT RIGHT XR TIBIA FIBULA 2V AP/LAT RIGHT Radiology Routine Chondrosarcoma (HCC) Expected: 11/05/2022 (Approximate), Expires: 12/05/2022 [facility] Work Phone: Comment on above: Expected: 11/05/2022 (Approximate), Expi res: 12/05/2022 Start: 10-25-2022 DIABETES SCREEN DIABETES SCREEN [facility] Start: 10-25-2022 Diabetes Screening Diabetes Screening [facility] Start: 04-20-2022 ADVANCE DIRECTIVE DISCUSSION ADVANCE DIRECTIVE DISCUSSION [facility] Start: 04-20-2022 DEPRESSION ASSESSMENT DEPRESSION ASSESSMENT [facility] Start: 12-19-2021 Influenza vaccination INFLUENZA (#1) [facility] Start: 11-18-2021 COVID-19 VACCINE (5 - Pfizer series) COVID-19 VACCINE (5 - Pfizer series) [facility] Start: 04-20-2021 ADVANCE DIRECTIVE DISCUSSION ADVANCE DIRECTIVE DISCUSSION [facility] Start: 06-29-2020 Adult depression screening assessment DEPRESSION SCREENING [facility] Start: 01-19-2016 Pneumococcal Vaccine: 50+ (2 of 2 - PCV) Pneumococcal Vaccine: 50+ (2 of 2 - PCV) [facility] Start: 01-19-2016 Pneumococcal Vaccine: 65+ Years (2 of 2 - PCV) Pneumococcal Vaccine: 65+ Years (2 of 2 - PCV) [facility] Start: 2014 Pneumococcal Vaccine: 65+ (1 - PCV) Pneumococcal Vaccine: 65+ (1 - PCV) [facility] Start: 2014 PNEUMOCOCCAL: 65+ (1 - PCV) PNEUMOCOCCAL: 65+ (1 - PCV) [facility] Start: 08-18-2014 Medicare Annual Wellness Visit Medicare Annual Wellness Visit [facility] Start: 09-19-1999 SHINGRIX VACCINE (1 of 2) SHINGRIX VACCINE (1 of 2) [facility] Start: 1994 COLOGUARD (FIT-DNA) COLOGUARD (FIT-DNA) [facility] Start: 1994 Colonoscopy COLONOSCOPY [facility] Start: 1994 COLORECTAL CANCER SCREENING COLORECTAL CANCER SCREENING [facility] Start: [address] COLONOGRAPHY [facility] Start: 1994 FECAL OCCULT BLOOD FECAL OCCULT BLOOD [facility] Start: 1994 Screening for malignant neoplasm of colon [facility] Start: 1994 SIGMOIDOSCOPY SIGMOIDOSCOPY [facility] Start: 1984 Lipid 1996 panel - Serum or Plasma Lipid Screening [facility] Start: 1984 Lipid panel Lipid Screening [facility] Start: 1984 LIPID SCREEN LIPID SCREEN [facility] Start: 1968 [facility] Start: 09-[facility]-1967 ANNUAL PCP TEAM CHRONIC DISEASE VISIT ANNUAL PCP TEAM CHRONIC DISEASE VISIT [facility] Start: 09-19-1967 Anxiety Screening Anxiety Screening [facility] Start: 09-19-1967 BP CONTROLLED (<130/80) BP CONTROLLED (<130/80) [facility] Start: 09-19-1967 Depression Screening Depression Screening [facility] Start: 09-19-1967 HEPATITIS C SCREENING HEPATITIS C SCREENING [facility] Start: 09-19-1967 Hepatitis C screening Hepatitis C Screening [facility] Start: 1949 Screening for malignant neoplasm of colon [facility] CALCIUM, 24 HR URINE CALCIUM, 24 HR URINE Lab Routine Hyperparathyroidism (HCC) Ordered: 08/17/2024 [facility] Comment on above: Ordered: 08/17/2024 CREATININE, 24 HOUR URINE CREATI NINE, 24 HOUR URINE Lab Routine Hyperparathyroidism (HCC) Ordered: 08/17/2024 [facility] Comment on above: Ordered: 08/17/2024 End: 09-16-2025 DXA Skeletal system.axial Views for bone density DXA-AXIAL SKELETON Radiology Routine Hyperparathyroidism (HCC) 1 Occurrences starting 08/17/2024 until 09/16/2025 [facility] Comment on above: 1 Occurrences starting 08/17/2024 until 09/16/2025 End: 09-16-2025 DXA-FOREARM SKELETON DXA-FOREARM SKELETON Radiology Routine Hyperparathyroidism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 content not included)...[facility]02-25-2025 NoteUT Electrophysiology Consult Note Reason for visit: [...] This was followed up with VEST with [facility] protocol which was negative for inducible arrhythmias [...] CVL report IMPRESSION: Successful direct-current cardioversion with restorationism of sinus rhythm from atrial fibrillation with no immediate complication. 03/22/12: EPS EP study by Dr. Carmen Flores on 03/22/2012 for evaluation of wide-complex tachycardia in the setting of normal ejection fraction revealed normal HV interval but no evidence of any AH jump suggestive of dual AV node physiology and no tachycardia was induced. This was followed up with VEST with [facility] protocol which was negative for inducible arrhythmias [...] with PACs a (more content not included)... [facility]12-17-2024 History of Present illness Narrative* Amanda Mustafa, [...] Date Afib (CMS/HCC) Heart disease HTN (hypertension) (CMS/[facility]) Past Surgical History: Procedure Laterality Date FEMUR [...] to clinic: 3 weeks documented in this encounterThe Rehabilitation [id number] NoteCardiovascular Medicine [facility] SUBJECTIVE Chief Complaint Patient presents with Follow-up [...] up with BEST with [facility] protocol which was negative for inducible arrhythmias [...] Coreg [Carvedilol] Diarrhea Meperi (more content not included)...[facility] 03-11-2024 Evaluation note* Diagnosis Onset Date Resolution [...] spec ific antigen) acute March 11 11:00am [facility] Work Phone: 1(927) 268-360811-06-2024 History of Present illness Narrative* AVI Ruiz - 02/24/2024 1:00 PM EST Images from the original note were not included. Reason for Appointment: EMG Patient: Bang Sharma : 1950 EMG Computer: [employer] Referring Physician: Dr. Amanda Mustafa EMG: MINDY die attacher: Geoff Joshua RT(R) Office Location: [place] Reason for EMG: c/o numbness/tingling in right foot/ankle. Hx of surgery to right lower leg. No hx of DM. Not on blood thinners. Comments: Procedure was explained to the patient & who expressed understanding. Patient appeared to have tolerated the test well despite some discomfort due to the nature of the test. documented in this encounterThe Rehabilitation [id number] History of Present illness Narrative* Amanda Mustafa DO - 02/22/2024 10:30 AM EST Images from the original note were not included. Chief Complaint Patient presents with Numbness Peripheral Neuropathy Subjective Bang Sharma, 73 y.o., male being seen in Neurology consultation at the request of Dr. Joya. Dr. Lo is his PCP. HPI Lower extremity numbness - labs @ [facility]; referral received from Dr Reina Joya, [...] Date Afib (CMS/HCC) Heart disease HTN (hypertension) (CMS/[facility]) Past Surgical History: Procedure Laterality Date FEMUR [...] to clinic: 3 weeks documented in this encounterThe Rehabilitation [id number] NoteLOOP IMPLANT PROCEDURE NOTE DATE OF PROCEDURE: 12/09/23 PERFORMING PHYSICIAN: Dr. Alpesh Davis BIT BENDER: NA INDICATIONS FOR PROCEDURE: 1. SVT/AF surveillance [...] the sternum on the left using the [employer] tool. The loop recorder was then [...] wet the incision. Alpesh Davis MD Cardiac Electrophysiology.[facility]02-09-2024 Evaluation note* Encounter Date Diagnosis Assessment Notes Treatment Notes Treatment Clinical Notes May, Anemia (ICD-10 - D64.9) [facility] Other 09-26-2023 NoteHNO ID: [id number] Author: Keri Lopez RN Service: ? Author Type: Registered Nurse Type: Progress Notes Filed: 01/13/2023 4:19 PM Note Text: I served as a scribe during this office visit encounter. Keri LopezBen[facility] NoteHNO ID: [id number] Author: Haresh Pineda MD Service: ? 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 (CPT 70151 - 22) Placement of Prophylactic Carbon Fiber Tibial Nail, Right Tibia (CPT 01619) High Speed Ehsan and Adjuvant Treatment with 10% H202 (CPT 46860) Neruolysis and Dissection of Deep Peroneal Nerve (CPT 90286) Right Iliac Crest Marrow Aspiration/Faribault ( CPT 81927) Diagnosis: Right Tibial Diaphysis Cartilage Lesion with [...] the date of the service which included oxgq-ia-hetp patient care, completing clinical documentation, obtaining and/or [...] information added by medical student, resident, nurse, OR RN/PA-C that I have placed my signature directly below I have verified and either instructed them to document in a scribe function or document appropriately in the chart during the patient visit. Haresh Pineda MD [employer], [facility] at [facility]Education Department Chair, Division of Musculoskeletal Oncology Co-Director of Sarcoma Care, [facility] Pager: [phone] (more content not included)...[facility] [id number] History of Present illness Narrative* Haresh Pineda MD - 11/05/2021 5:19 PM EDT This note was created using [employer]. ISIAH SANCHEZ SF ORT MST FU Advanced: Did this patient have an adverse event since their last encounter?: No * Haresh Pineda MD - 11/05/2021 4:07 PM EDT Orthopaedic Surgery Follow-Up Clinic Note Surgery/Date: 08/27/2017 1. 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 Placement of Prophylactic Carbon Fiber Tibial Nail, Right Tibia (CPT 64723) 3. High Speed Ehsan and Adjuvant Treatment with 10% H202 (CPT 03089) 4. Neruolysis and Dissection of Deep Peroneal Nerve (CPT 55978) 5. Right Iliac Crest Marrow Aspiration/Faribault ( CPT 22199) Diagnosis: Right Tibial Diaphysis Cartilage Lesion with [...] 40 years and lives with his in [place], [place]. Exam: RLE -- largely unchanged compared [...] the date of the service which included uuod-zq-bwym patient care, completing clinical documentation, obtaining and/or reviewing separately obtained history, performing a medically appropriate examination, counseling and educating the patient/family/caregiver, ordering medications, tests, or procedures, independently interpreting results (not separately reported) and communicating results to the patient/family/caregiver. Any information added by medical student, resident, nurse, OR RN/PAJayC that I have placed my signature directly below I have verified and either instructed them to document in a scribe function or document appropriately in the chart during the patient visit. 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, site unspecified documented in this encounter [place] note* 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, site unspecified documented in this encounter [place] note* 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, site unspecified documented in this encounter [place] note* Diagnosis Chronic pain of left ankle- Primary documented in this encounter [place] noteNo [employer] Other Evaluation note* Diagnosis Onset Date Resolution Status Anemia acute Atrial fibrillation acute Hypercholesterolemia acute Hypertension acute Obesity acute REMY (obstructive sleep apnea) acute [facility] Work Phone: Evaluation note* Diagnosis Idiopathic peripheral neuropathy- Primary Unspecified hereditary and idiopathic peripheral neuropathy 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 Weakness Other malaise and fatigue Numbness and tingling Disturbance of skin sensation documented in this encounter [facility] [employer] note* Diagnosis Idiopathic peripheral neuropathy Unspecified hereditary and idiopathic peripheral neuropathy documented in this encounter [facility] [employer] note* Diagnosis Idiopathic peripheral neuropathy- Primary Unspecified hereditary and idiopathic peripheral neuropathy Numbness and tingling Disturbance of skin sensation 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 Weakness Other malaise and fatigue documented in this encounter [facility] [employer] note* Diagnosis Pre-operative examination- Primary Preoperative examination, [...] Primary hyperparathyroidism Hypercalcemia documented in this encounter [facility]* Diagnosis Pre-operative examination- [...] Primary Hyperparathyroidism, unspecified documented in this encounter [facility]* Diagnosis Onset Date [...] 11:31am Pneumonia noneactive August 30, 2024 11:31am [facility] Work Phone: Evaluation note* Diagnosis Pre-operative examination- [...] (HCC) Hyperparathyroidism, unspecified documented in this encounter [place] note* Diagnosis Pre-operative examination- Primary Preoperative examination, [...] (HCC) Hyperparathyroidism, unspecified documented in this encounter [place] note* Diagnosis Pre-operative examination- Primary Preoperative examination, [...] of bone and articular cartilage, site unspecified ERMY (obstructive sleep apnea) Obstructive sleep apnea (adult) (pediatric) Essential hypertension Unspecified essential hypertension Class 1 obesity due to excess calories without serious comorbidity with body mass index (BMI) of 34.0 to 34.9 in adult Hyperparathyroidism (HCC) Hyperparathyroidism, unspecified documented in this encounter [place] note* Diagnosis Pre-operative examination- Primary Preoperative examination, [...] right tibial 08/2017 documented in this encounter [facility]* Diagnosis Pre-operative examination- Primary Preoperative [...] Primary Hyperparathyroidism, unspecified documented in this encounter [facility] general Narrative - Reported* Type [...] 2006 Surgical History Colonoscopy 2009 Surgical History [facility] 2011 Surgical History Cardiac Ablation 2011 Surgical History Removal FB Right Hand 2015 Surgical History Resected Bone Right Tibia w/ ro d insertion 2018 Hospitalization History see surgical hx [place] [employer] Other Reason for referral (narrative)* Diagnostic Procedure Only (Routine) - Pending Review Specialty Diagnoses / Procedures Referred By Contac t Referred To Contact XR IMAGING Diagnoses Chondrosarcoma (HCC) Procedures XR TIBIA FIBULA 2V AP/LAT RIGHT RADIOLOGIC EXAMINATION TIBIA & FIBULA 2 VIEWS Haresh Pineda MD [address] [place] [address] Xr Imaging Referral ID Status Reason Start Date Expiration Date Visits Requested Visits Authorized [id number] Pending Review Auto-Generat ed Referral 11/05/2022 12/05/2022 1 1 [facility] for referral (narrative)* Diagnostic Procedure Only (Routine) - Pending Review Specialty Diagnoses / Procedures Referred By Contac t Referred To Contact XR IMAGING Diagnoses Chondrosarcoma (HCC) Procedures XR TIBIA FIBULA 2V AP/LAT RIGHT RADIOLOGIC EXAMINATION TIBIA & FIBULA 2 VIEWS Haresh Pineda MD [address] [place] [address] Xr Imaging Referral ID Status Reason Start Date Expiration Date Visits Requested Visits Authorized [id number] Pending Review Auto-Generat ed Referral 11/17/2022 12/17/2023 1 1 [facility] for referral (narrative)* Diagnostic Procedure Only (Routine) - Authorized Specialty Diagnoses / Procedures Referred By Contac t Referred To Contact XR IMAGING Diagnoses Chronic pain of left ankle Procedures XR ANKLE GENERAL 3V AP/LAT/OBL LEFT RADEX ANKLE COMPLETE MINIMUM 3 VIEWS Valeri Quintero PA-C [address] [address] Xr Imaging [place] [address] Referral ID Status Reason Start Date Expiration Date Visits Requested Visits Authorized [id number] Authorized Auto-Generat ed Referral 01/12/2023 02/11/2024 1 1 [facility] (narrative)No reason for referral [facility] Work Phone: Reason for visit Narrative* Diagnostic Procedure Only (Routine) - Closed Specialty Diagnoses / Procedures Referred By Contac t Referred To Contact MOLECULAR & FUNCTIONAL IMAGING Diagnoses Hyperparathyroidism (HCC) Procedures NM PARATHYROID W SPECT/CT PARATHYROID IMAGING W/TOMOGRAPHIC SPECT & CT Geneva Butler MD [address] [place] [address] Phone: tel: fax: [facility] [address] [place] [address] Phone: tel: Referral ID Status Reason Start Date Expiration Date V isits Requested Visits Authorized [id number] Closed Auto-Generate d Referral 09/13/2024 10/13/2025 1 1 [facility] Summary Purpose Family History Relationship Condition Age at Onset Recorded Date/T kayley father Malignant neoplasm Unknown Unknown mother Hypertension Unknown Diabetes mellitus Unknown Advance Directives Documents on File Type Date Recorded Patient Ux Interaction Designer Expl anation Advance Directive(s) Advance Directive(s) 09/02/2018 11:24 AM Advance Directive(s) 08/26/2018 2:02 PM Advance Directive(s) 08/24/2017 2:28 PM Documents on File Type Date Recorded Patient Ux Interaction Designer Expl anation Advance Directive(s) Advance Directive(s) 09/02/2018 11:24 AM Advance Directive(s) 08/26/2018 2:02 PM Advance Directive(s) 08/24/2017 2:28 PM Documents on File Type Date Recorded Patient Ux Interaction Designer Expl anation Advance Directive(s) 08/24/2017 2:28 PM Advance Directive Response Recorded Date/ Time Advance Directives No August 31 9:44am Advance Directive Response Recorded Date/ Time Advance Directives No August 31 4 8:44am Documents on File Type Date Recorded Patient Ux Interaction Designer Expl anation Advance Directive(s) 08/24/2017 2:28 [...] Amb Documentation December 05, 2024 10 :56am [facility] ER cellulitis December 13, 2024 3: [...] section and content) DATE CREATED AUTHOR 11/10/2017 [facility] DATE CREATED AUTHOR AUTHOR'S ORGANIZ ATION [facility]20[facility] DATE CREATED AUTHOR AUTHOR'S ORGANIZ ATION 01/21/2023 [facility] DATE CREATED AUTHOR AUTHOR'S ORGANIZ ATION 07/06/2024 [facility] EPIC DATE CREATED AUTHOR AUTHOR'S ORGANIZ ATION 11/16/2024 [facility] DATE CREATED AUTHOR AUTHOR'S ORGANIZ ATION 11/18/2024 [facility] DATE CREATED AUTHOR AUTHOR'S ORGANIZ ATION 12/10/2024 [facility] Source Comments (unrecognize d section [...] Diagnoses Anesthesia of skin Procedures [place] OFFICE/OUTPATIENT [facility] 30 MINUTES Reina Joya MD [address] [place] [address] [place] [address] Phone: tel: fax: Emmett Pineda DO [address] [place] [address] Phone: tel: fax: Referral ID Status Reason Start Date Expiration Date V isits Requested Visits Authorized [id number] Closed Consult and Treat 02/11/2024 08/09/2024 1 1 Reason Comments Peripheral Neuropathy Reason Comments Thyroid Problem Reason Comments Consult FACE SHEET Reason Comments Results [facility] - DXA scan Reason Comments [...] SPECT & CT Geneva Butler MD [address] [place] [address] Phone: tel: fax: [facility] [address] [place] [address] Phone: tel: Referral ID Status Reason Start Date Expiration Date V isits Requested Visits Authorized [id number] Closed Auto-Generate d Referral 09/13/2024 10/13/2025 1 1 Reason Comments Post Op Reason Comments Post-Op Visit Care Teams (unrecognized sec tion and content) Team Status: Active Member Role Status Dates Alvin Lo DO Primary Care Provider Active Team Status: Inactive Member Role Status Dates Alvin Lo DO Primary Care Provider Active Start: September 15, 2024 End: September 15, 2024 Alivn Lo DO Attending Provider Active Sta rt: September 15, 2024 End: September 15, 2024 Team Status: Active Member Role Status Dates Alvin oL DO Primary Care Provider Active Start: November [...] December 13, 2024 End: December 13, 2024 Early Childhood Aide Classroom Relationship Specialty Start Date End Date Alvin Lo, DO [address] [id number] PCP - General Internal Medicine 06/19/17 Early Childhood Aide Classroom Relationship Specialty Start Date End Date Alvin Lo DO [address] [place] [address] PCP - General Internal Medicine 06/19/17 Early Childhood Aide Classroom Relationship Specialty Start Date End Date Alvin Lo DO [address] [place] [address] PCP - General Internal Medicine 06/19/17 Team [...] December 03, 2023 End: December 03, 2023 Early Childhood Aide Classroom Relationship Specialty Start Date End Date Alvin Lo MD [address] [place] [phone] PCP - General Internal Medicine 03/30/23 Early Childhood Aide Classroom Relationship Specialty Start Date End Date Alvin Lo MD [address] [place] [address] PCP - General Internal Medicine 03/30/23 Bhavik Justin, PhD [address] [place] [phone] Referring Physician Neuropsychology 02/22/24 Early Childhood Aide Classroom Relationship Specialty Start Date End Date Alvin Lo MD [address] [place] [address] PCP - General Internal Medicine 03/30/23 Bhavik Justin, PhD [address] [place] [phone] Referring Physician Neuropsychology 02/22/24 Early Childhood Aide Classroom Relationship Specialty Start Date End Date Alvin Lo MD [address] [place] [address] PCP - General Internal Medicine 03/30/23 Bhavik Justin, PhD [address] [phone] Referring Physician Neuropsychology 02/22/24 Amanda Mustafa DO [address] [address] Referring Physician Neurology 04/05/24 Early Childhood Aide Classroom Relationship Specialty Start Date End Date Alvin Lo MD [address] [place] [address] PCP - General Internal Medicine 03/30/23 Bhavik Justin, PhD [address] [address] Referring Physician Neuropsychology 02/22/24 Amanda Mustafa DO [address] [place] [address] Referring Physician Neurology 04/05/24 Early Childhood Aide Classroom Relationship Specialty Start Date End Date Alvin Lo MD [address] [place] [address] PCP - General Internal Medicine 03/30/23 Bhavik Justin, PhD [address] [address] Referring Physician Neuropsychology 02/22/24 Amanda Mustafa DO [address] [place] [address] Referring Physician Neurology 04/05/24 Team Status: Active [...] April 27, 2024 End: April 27, 2024 Early Childhood Aide Classroom Relationship Specialty Start Date End Date Alvin Lo DO [address] [facility] [place] [address] PCP - General Internal Medicine 06/19/17 Early Childhood Aide Classroom Relationship Specialty Start Date End Date Alvin Lo DO [address] [facility] [place] [address] PCP - General Internal Medicine 06/19/17 Early Childhood Aide Classroom Relationship Specialty Start Date End Date Alvin Lo DO [address] [place] [facility] [place] [address] PCP - General Internal Medicine 06/19/17 Early Childhood Aide Classroom Relationship Specialty Start Date End Date Teresita Alvin Juanjose DO [address] [facility] [place] [address] PCP - General Internal Medicine 06/19/17 Team [...] August 30, 2024 End: August 30, 2024 Early Childhood Aide Classroom Relationship Specialty Start Date End Date Alvin Lo DO [address] [place] [address] PCP - General Internal Medicine 06/19/17 Team Status: Inactive Member Role Status Dates Alvin Lo DO Primary Care Provide r, Attending Provider Active Start: September 15, 2024 End: September 15, 2024 Early Childhood Aide Classroom Relationship Specialty Start Date End Date Alvin Lo DO [address] [place] [address] PCP - General Internal Medicine 06/19/17 Early Childhood Aide Classroom Relationship Specialty Start Date End Date Alvin Lo DO [address] [place] [address] PCP - General Internal Medicine 06/19/17 Early Childhood Aide Classroom Relationship Specialty Start Date End Date Alvin Lo DO [address] [place] [address] PCP - General Internal Medicine 06/19/17 Early Childhood Aide Classroom Relationship Specialty Start Date End Date Alvin Lo DO [address] [place] [address] PCP - General Internal Medicine 06/19/17 Early Childhood Aide Classroom Relationship Specialty Start Date End Date Alvin Lo DO [address] [place] [address] PCP - General Internal Medicine 06/19/17 Early Childhood Aide Classroom Relationship Specialty Start Date End Date Alvin Lo [address] [facility] [place] [address] PCP - General Internal Medicine 06/19/17 Early Childhood Aide Classroom Relationship Specialty Start Date End Date Alvin Lo DO [address] [place] [address] PCP - General Internal Medicine 06/19/17 Team [...] BE BASED ON THE PRIMARY CLINICAL RECORDS. [facility] [employer] [facility]. provides no warranty or guarantee of the accuracy or completeness of information in this document.
== END 2024-12-29 12:29 | disposition home or self-care (01) ==
LOC: MRI 12:28
PROVIDERS: PCP Internal Medicine; Visit Provider Internal Medicine
DX: L03.031 Cellulitis of right toe (principal); L02.611 Cutaneous abscess of right foot
CPT/HCPCS: 73720; A9575

== ENCOUNTER 2025-01-04 13:25 | Outpatient (OUT) | payer MEDICARE, OTHER, SELFPAY ==
--- OUTSIDE RECORDS SUMMARY | 2024-11-22 06:30 | XMS_ITS ---
Author Organization [facility] in [place] Address [address] [place] [address] Care Team Providers Care Industrial Insulator Name Role Phone Alvin Contreras DO Primary Care Provider Davin Montes Unavailable [phone] REASON FOR VISIT 1 YEAR REMY Encounters Encounter Location Date Provider Diagnosis Pulmonary Medicine [place] [address] [place] [address] 11/22/2024 Davin Reyes Plan Of Treatment No Information Progress Notes * Juan David SHARMA EDOB: 0 (74 yo M)Acc No.[id number]:11/22/2024 UNLOCKED PROGRESS NOTE Follow Up Patient: Juan David RAMIREZ Provider: Maura Reyes DO :1950 A ge:74 Y S ex:Male Date:11/22/2024 Phone: Address:[address] [place] [address] Pcp:Alvin Contreras DO Subjective: * Chief Complaints: * 1 . 1 YEAR REMY. * Medical History: Objective: * Vitals: Assessment: Plan: * Treatment: * * Electronic signature of Maryjane Reyes DO on 01/04/2025 at 01:30 PM EDT Sign off status: Pending Visit Status: O FF CANC (OFFICE CANCEL) * Provider: Maura Reyes DO Date: 0 11/22/2024 Generated for Ericka maradiaga/William/eTransmitting on: 0 01/04/2025 01:30 PM EDT
--- OUTSIDE RECORDS SUMMARY | 2025-01-04 13:29 | XMS_ITS | Encounter Summary ---
Author Organization [facility] Address [address] [place] [address] Care Team Providers Care Restaurant Inspector Name Role Phone Alvin Contreras Primary Care Provider [phone] Source Comments In the event this information is protected by the Federal Confidentiality of Alcohol and Drug AbusePatient Records regulations: The Federal rules restrict any use of the information to criminally investigate or prosecute any alcohol or drug abuse patient.[facility] Encounter Details Date Type Department Care Team (Late st Contact Info) Description 07/12/2019 Patient Msg Neurology [address] [phone] Provider, [facility] Neurology - Blood Work Orders [...] 2:20 PM EST Office Visit Endocrinology [address] [place] [address] Gaudencio Lewis MD [address] [place] [address] [place] [address] Return in about 6 months (around 02/15/2025). documented as of this encounter Visit Diagnoses Not on filedocumented in this encounter Care Teams Restaurant Inspector Relationship Specialty Start Date End Date Alvin Contreras DO [address] [place] [address] PCP - General Internal Medicine 06/19/17 documented as of this encounter
--- OUTSIDE RECORDS SUMMARY | 2025-01-04 13:29 | XMS_ITS | Encounter Summary ---
Author Organization [facility] Address [address] [place] [address] Care Team Providers Care Dry Cell Sealer Name Role Phone Alvin Contreras DO Primary Care Provider [phone] Source Comments In the event this information is protected by the Federal Confidentiality of Alcohol and Drug AbusePatient Records regulations: The Federal rules restrict any use of the information to criminally investigate or prosecute any alcohol or drug abuse patient.[facility] Encounter Details Date Type Department Care Team (Late st Contact Info) Description 10/07/2024 Patient Msg Endocrine Surgery [address] [phone] Provider, [facility] Pre-op Appointments Social History Tobacco Use Types Packs/Day Years Used Date Smoking Tobacco: Never Smokeless Tobacco: Never PHQ-2 Answer Date Recorded PHQ-2 score 0 06/30/2019 Area Deprivation Index Answer Date Mumtaz rded National Score (1-100), lower number is lower ri sk 60 01/13/2023 State Score (1-10), lower number is lower risk 4 01/13/2023 Data from: https://www.neighborhoodatlas.medicine.[facility].edu/. Last address used for calculation [address] [place] [address] 01/13/2023 Sex and Gender Information Value Date [...] 2:20 PM EST Office Visit Endocrinology [address] [place] [address] Gaudencio Lewis MD [address] [place] [address] [address] [place], [place] [phone] Return in about 6 months (around 02/15/2025). documented as of this encounter Visit Diagnoses Not on filedocumented in this encounter Care Teams Dry Cell Sealer Relationship Specialty Start Date End Date Alvin Contreras DO [address] [place] [address] PCP - General Internal Medicine 06/19/17 documented as of this encounter
--- OUTSIDE RECORDS SUMMARY | 2025-01-04 13:29 | XMS_ITS | Encounter Summary ---
Author Organization [facility] Address [address] [place] [address] Care Team Providers Care Dental Associate Name Role Phone Alvin Contreras DO Primary Care Provider [phone] Source Comments In the event this information is protected by the Federal Confidentiality of Alcohol and Drug AbusePatient Records regulations: The Federal rules restrict any use of the information to criminally investigate or prosecute any alcohol or drug abuse patient.[facility] Encounter Details Date Type Department Care Team (Late st Contact Info) Description 08/17/2024 Patient Msg Endocrine Surgery [address] [phone] Provider, [facility] Appointment Social History Tobacco Use Types Packs/Day Years Used Date Smoking Tobacco: Never Smokeless Tobacco: Never PHQ-2 Answer Date Recorded PHQ-2 score 0 06/30/2019 Area Deprivation Index Answer Date Mutmaz rded National Score (1-100), lower number is lower ri sk 60 01/13/2023 State Score (1-10), lower number is lower risk 4 01/13/2023 Data from: https://www.neighborhoodatlas.medicine.[facility].edu/. Last address used for calculation [address] [place] [address] 01/13/2023 Sex and Gender Information Value Date [...] 2:20 PM EST Office Visit Endocrinology [address] [place] [address] Gaudencio Lewis MD [address] [place] [address] [place] [address] Return in about 6 months (around 02/15/2025). documented as of this encounter Visit Diagnoses Not on filedocumented in this encounter Care Teams Dental Associate Relationship Specialty Start Date End Date Alvin Contreras DO [address] [place] [address] PCP - General Internal Medicine 06/19/17 documented as of this encounter
--- OUTSIDE RECORDS SUMMARY | 2025-01-04 13:29 | XMS_ITS | Encounter Summary ---
Author Organization [facility] Address [address] [place] [address] Care Team Providers Care Warehouse Team Leader Name Role Phone Alvin Contreras DO Primary Care Provider [phone] Source Comments In the event this information is protected by the Federal Confidentiality of Alcohol and Drug AbusePatient Records regulations: The Federal rules restrict any use of the information to criminally investigate or prosecute any alcohol or drug abuse patient.[facility] Encounter Details Date Type Department Care Team (Late st Contact Info) Description 11/03/2024 [place] [address] Provider, [facility] Actionable Imaging Result Notification Patient [...] is lower risk 4 01/13/2023 Data from: https://www.neighborhoodatlas.medicine.[facility].edu/. Last address used for calculation [address] [place] [address] 01/13/2023 Sex and Gender Information Value Date [...] 2:20 PM EST Office Visit Endocrinology [address] [place] [address] Gaudencio Lewis MD [address] [place] [address] [place] [address] Return in about 6 months (around 02/15/2025). documented as of this encounter Visit Diagnoses Not on filedocumented in this encounter Care Teams Warehouse Team Leader Relationship Specialty Start Date End Date Alvin Contreras DO [address] [place] [address] PCP - General Internal Medicine 06/19/17 documented as of this encounter
--- OUTSIDE RECORDS SUMMARY | 2025-01-04 13:29 | XMS_ITS | Encounter Summary ---
Author Organization [facility] Address [address] [place], [place] [address] Care Team Providers Care Interface Control Officer Name Role Phone Alvin Contreras DO Primary Care Provider [phone] Source Comments In the event this information is protected by the Federal Confidentiality of Alcohol and Drug AbusePatient Records regulations: The Federal rules restrict any use of the information to criminally investigate or prosecute any alcohol or drug abuse patient.[facility] Reason for Referral * Consult, Test, Treat (Routine) - Authorized Specialty Diagnoses / Procedures Referred By Contac t Referred To Contact Diagnoses Hyperparathyroidism (HCC) Procedures OFFICE/OUTPATIENT [facility] 60 MINUTES Geneva Samayoa MD [address] [place] [address] Phone: tel: fax: Referral ID Status Reason Start Date Expiration Date Visits Requested Visits Authorized [id number] Authorized PCP Requested Referral 09/13/2024 09/13/2025 1 1 * Diagnostic Procedure Only (Routine) - Closed Specialty Diagnoses / Procedures Referred By Contac t Referred To Contact [facility] Diagnoses Hyperparathyroidism (HCC) Procedures NM PARATHYROID W SPECT/CT PARATHYROID IMAGING W/TOMOGRAPHIC SPECT & CT Geneva Samayoa MD [address] [place] [address] Phone: tel: fax: Molecular Imaging [address] [phone] Phone: tel: Referral ID Status Reason Start Date Expiration Date V isits Requested Visits Authorized [id number] Closed Auto-Generate d Referral 09/13/2024 10/13/2025 1 1 * Outpatient Procedure (Routine) - Closed Specialty Diagnoses / Procedures Referred By Contac t Referred To Contact [facility] Diagnoses Hyperparathyroidism (HCC) Procedures ECG COMPLETE ECG ROUTINE ECG W/LEAST 12 LDS W/I&[place] [address] [place] [address] Phone: tel: fax: [facility] [place] [address] [place] [address] Referral ID Status Reason Start Date Expiration Date V isits Requested Visits Authorized [id number] Closed Auto-Generate d Referral 09/13/2024 09/13/2025 1 1 Reason for Visit * Reason Comments 11/14 MM - Parathyroidectomy Needs: labs, EKG, NM scan of Parathyroid, in-person PACC and 2 wk phone post-op. Encounter Details Date Type Department Care Team (Latest Contact Info) Description 09/13/2024 Patient Update Endocrine Surgery [address] [phone] Geneva Samayoa MD [address] [place] [address] 11/14 MM - Parathyroidectomy (Needs: [...] is lower risk 4 01/13/2023 Data from: https://www.neighborhoodatlas.[facility]/. Last address used for calculation [address] 01/13/2023 Sex and Gender [...] 2:20 PM EST Office Visit Endocrinology [address] [place] [address] Gaudencio Lewis MD [address] [place] [address] [place] [address] Return in about 6 months (around [...] be communicated with the ordering provider via [employer] staff message or phone message by [facility] within 2 business days of report finalization. --END OF FINDING-- Loss Prevention Supervisor: BARBARA Transcribe Date/Time: Nov 02 2024 7:32A Dictated by : SKIP RIVERA DO This examination was interpreted and the report reviewed and electronically signed by: SKIP RIVERA DO on Nov 02 2024 7:42AM EST Narrative 11/02/2024 7:44 AM EDT * * *Final Report* * * DATE OF EXAM: Nov 01 2024 2:25PM [facility] 0089 - NM PARATHYROID W [...] Images: No additional findings. Procedure Note Provider, [facility] [place] - 11/02/2024 * * *Final Report* * [...] be communicated with the ordering provider via [employer] staff message or phone message by [facility] within 2 business days of report finalization. --END OF FINDING-- Loss Prevention Supervisor: BARBARA Transcribe Date/Time: Nov 02 2024 7:32A [...] ms [facility] Calculated P [place] 85 degrees [facility] Calculated R [place] -69 degrees [facility] Calculated T [place] 33 degrees [facility] 11/01/2024 11:5 5 AM EDT Impressions [facility] - 12/08/2024 9:49 AM EDT SINUS BRADYCARDIA LEFT AXIS DEVIATION COMPLETE RIGHT BUNDLE BRANCH BLOCK ABNORMAL ECG Confirmed by ENRIQUE ROSALES MD ([id number]) on 12/08/2024 9:49:14 AM Narrative [facility] - 12/08/2024 9:49 AM EDT NAME : BANG SHARMA PID : [id number] : 1950 Gender : Male Race : ORD : [id number] Procedure Date : Nov 01 2024 11:55:05 Edit Date : Dec 08 2024 09:49:21 Diagnosis: SINUS BRADYCARDIA LEFT AXIS DEVIATION COMPLETE RIGHT BUNDLE BRANCH BLOCK ABNORMAL ECG Confirmed by ENRIQUE ROSALES MD ([id number]) on 12/08/2024 9:49:14 AM Test Reason : Location : 314 : J14 J14 Overread By : ENRIQUE ROSALES MD Edited By : ENRIQUE ROSALES MD Referred By : GENEVA SAMAYOA Acquired by : JENIFFER MCCAULEY us Geneva Samayoa MD EKG Final Res ult [facility] [address] [place] [address] * COMPLETE BLOOD COUNT AND DIFFERENTIAL (11/01/2024 11:24 AM EDT) WBC 5.86 3.70 - 11.00 k/uL 11/01/2024 12:25 PM EDT [facility] RBC 4.58 4.20 - 6.00 m/uL 11/01/2024 12:25 PM EDT [facility] Hemoglobin 14.3 13.0 - 17.0 g/dL 11/01/2024 12:25 PM EDT [facility] Hematocrit 44.3 39.0 - 51.0 % 11/01/2024 12:25 PM EDT [facility] MCV 96.7 80.0 - 100.0 fL 11/01/2024 12:25 PM EDT [facility] MCH 31.2 26.0 - 34.0 pg 11/01/2024 12:25 PM EDT [facility] MCHC 32.3 30.5 - 36.0 g/dL 11/01/2024 12:25 PM EDT [facility] RDW-CV 13.6 11.5 - 15.0 % 11/01/2024 12:25 PM EDT [facility] Platelet Count 307 150 - 400 k/uL 11/01/2024 12:25 PM EDT [facility] MPV 9.1 9.0 - 12.7 fL 11/01/2024 12:25 PM EDT [facility] Neutrophils % 59.7 % 11/01/2024 12:25 PM EDT [facility] Abs Neut 3.50 1.45 - 7.50 k/uL 11/01/2024 12:25 PM EDT [facility] Lymphocytes % 25.3 % 11/01/2024 12:25 PM EDT [facility] Abs Lymph 1.48 1.00 - 4.00 k/uL 11/01/2024 12:25 PM EDT [facility] Monocytes % 11.9 % 11/01/2024 12:25 PM EDT [facility] Abs [place] 0.70 <0.87 k/uL 11/01/2024 12:25 PM EDT [facility] Eosinophils % 1.9 % 11/01/2024 12:25 PM EDT [facility] Abs Eosin 0.11 <0.46 k/uL 11/01/2024 12:25 PM EDT [facility] Basophils % 0.9 % 11/01/2024 12:25 PM EDT [facility] Abs Baso 0.05 <0.11 k/uL 11/01/2024 12:25 PM EDT [facility] Immature Granulocytes % 0.3 % 11/01/2024 12:25 PM EDT [facility] Abs Immature Gran <0.03 <0.10 k/uL 025 12:25 PM EDT [facility] NRBC 0.0 /100 WBC 11/01/2024 12:25 PM EDT [facility] Absolute nRBC <0.01 <0.01 k/uL 11/01/2024 12:25 PM EDT [facility] Diff Type Auto 11/01/2024 12:25 PM EDT [facility] Blood BLOOD SPECIMEN / Unknown Venipuncture / Unknown 11/01/2024 11:24 AM EDT 11/01/2024 11:24 AM EDT us Geneva Samayoa MD LABORATORY Final Res ult [facility] [address] [place] [address], * (ABNORMAL) BASIC METABOLIC PANEL (11/01/2024 11:24 AM EDT) [facility] Signature Glucose 108(H) 74 - 99 mg/dL 11/01/2024 2:16 PM EDT [facility] Comment: The [place] Diabetes Association (ADA) provides guidance for cutoff [...] Standards of Medical Care in Diabetes 2016, [place] Diabetes Association. Diabetes Care. 2016.39(Suppl 1). BUN 18 9 - 24 mg/dL 11/01/2024 2:16 PM EDT [facility] Creatinine 0.86 0.73 - 1.22 mg/dL 11/01/2024 2:16 PM EDT [facility] Sodium 140 136 - 144 mmol/L 11/01/2024 2:16 PM EDT [facility] Potassium 4.5 3.7 - 5.1 mmol/L 11/01/2024 2:16 PM EDT [facility] Chloride 105 98 - 107 mmol/L 11/01/2024 2:16 PM EDT [facility] CO2 26 22 - 30 mmol/L 11/01/2024 2:16 PM EDT [facility] Anion Gap 9 8 - 15 mmol/L 11/01/2024 2:16 PM EDT [facility] Calcium, Total 11.0(H) 8.5 - 10.2 mg/dL 11/01/2024 2:16 PM EDT [facility] Estimated Glomerular Filtration Rate 90 >=60 mL/min/1. 73m 11/01/2024 2:16 PM EDT [facility] Comment:Estimated Glomerular Filtration Rate (eGFR) is [...] Geneva Samayoa MD LABORATORY Final Res ult [facility] [address] [address], [place] * (ABNORMAL) CREATININE, 24 HOUR URINE (10/19/2024 1:36 PM EDT) Creatinine 24 hr Ur 2.006(H) 1.000 - 2.000 g/24 hr 10/20/2024 5:25 PM EDT [facility] Period 24 hr 10/20/2024 5:25 PM EDT [facility] Volume 1,750 mL 10/20/2024 5:25 PM EDT [facility] Urine URINE SPECIMEN / Unknown Non Blood / Unknown 10/19/2024 1:36 PM EDT 10/19/2024 1:36 PM EDT Geneva Samayoa MD LABORATORY Final Res ult Performing Organization Address [facility]/ZIP Co de Phone Number [facility] [place] [address], [facility] [address] [place] [address] * (ABNORMAL) CALCIUM, 24 HR URINE (10/19/2024 1:35 PM EDT) Calcium, 24 Hr Urine 357.0(H) 100.0 - 300.0 mg/24 hr 10/20/2024 7:10 PM EDT [facility] Period 24 hr 10/20/2024 7:10 PM EDT [facility] Volume 1,750 mL 10/20/2024 7:10 PM EDT [facility] Urine URINE SPECIMEN / Unknown Non Blood / Unknown 10/19/2024 1:35 PM EDT 10/19/2024 1:35 PM EDT Geneva Samayoa MD LABORATORY Final Res ult [facility] [address] [place] [address], [facility] [address] [place] [address] documented in this encounter Visit Diagnoses Diagnosis Hyperparathyroidism (HCC)- Primary Hyperparathyroidism, unspecified Hyperparathyroidism (HCC) Hyperparathyroidism, unspecified Hyperparathyroidism (HCC) Hyperparathyroidism, unspecified documented in this encounter Care Teams Interface Control Officer Relationship Specialty Start Date End Date Alvin Contreras DO [address] [place] [address] PCP - General Internal Medicine 06/19/17 documented as of this encounter
--- OUTSIDE RECORDS SUMMARY | 2025-01-04 13:29 | XMS_ITS | Encounter Summary ---
Author Organization [facility] Address [address] [facility] [place] [address] Care Team Providers Care Medical Physics Researcher Name Role Phone Alvin Contreras DO Primary Care Provider [phone] Bhavik Justin MD Unavailable [phone] Nanda Mustafa DO Unavailable [phone] Alvin Contreras DO Primary Care Provider [phone] Encounter Details Date Type Department Care Team (Late st Contact Info) Description 02/24/2024 Orders Only PHYLLIS JUDAH [address] [facility] [address] [place] [phone] Geoff Joshua ARRT Social History Tobacco Use [...] on filedocumented in this encounter Care Teams Medical Physics Researcher Relationship Specialty Start Date End Date Alvin Contreras DO PCP - General Internal Medicine 03/30/23 09/18/24 Alvin Contreras DO [address] [facility] [place] [address] PCP - General Internal Medicine 09/19/24 Bhavik Justin MD [address] [address] Referring Physician Neuropsychology 02/22/24 Nanda Mustafa DO [address] [place] [address] Referring Physician Neurology 04/05/24 documented as of this encounter
--- OUTSIDE RECORDS SUMMARY | 2025-01-04 13:29 | XMS_ITS | Encounter Summary ---
Author Organization [facility] Address [facility] [place] [address] Care Team Providers Care Geothermal Powerplant Mechanic Helper Name Role Phone Alvin Contreras DO Primary Care Provider [phone] Source Comments In the event this information is protected by the Federal Confidentiality of Alcohol and Drug AbusePatient Records regulations: The Federal rules restrict any use of the information to criminally investigate or prosecute any alcohol or drug abuse patient.[facility] Encounter Details Date Type Department Care Team (Late st Contact Info) Description 11/21/2024 Get Medical Advice Endocrine Surgery [address] [place] [address] Geneva Samayoa MD [address] [place] [id number] CALCIUM TOTAL BLD, Parathyroid hormone (PTH intact), [...] is lower risk 4 01/13/2023 Data from: https://www.neighborhoodatlas.medicine.[facility]/. Last address used for calculation [address] 01/13/2023 Sex and Gender [...] 2:20 PM EST Office Visit Endocrinology [address] [place], [place] 500[address] Gaudencio Lewis MD [address] [place] [address] [place] [address] Return in about 6 months (around 02/15/2025). documented as of this encounter Visit Diagnoses Not on filedocumented in this encounter Care Teams Geothermal Powerplant Mechanic Helper Relationship Specialty Start Date End Date Alvin Contreras DO [address] [place] [address] PCP - General Internal Medicine 06/19/17 documented as of this encounter
--- OUTSIDE RECORDS SUMMARY | 2025-01-04 13:29 | XMS_ITS | Encounter Summary ---
Author Organization [facility] Address [address] [place] [address] Care Team Providers Care Solutions Specialist Name Role Phone Alvin Contreras Primary Care Provider [phone] Source Comments In the event this information is protected by the Federal Confidentiality of Alcohol and Drug AbusePatient Records regulations: The Federal rules restrict any use of the information to criminally investigate or prosecute any alcohol or drug abuse patient.[facility] Encounter Details Date Type Department Care Team (Late st Contact Info) Description 08/23/2024 Patient Msg Endocrinology [address] [place] [phone] Provider, Cckristina Appontment Rescheduled Social History Tobacco Use Types Packs/Day Years Used Date Smoking Tobacco: Never Smokeless Tobacco: Never PHQ-2 Answer Date Recorded PHQ-2 score 0 06/30/2019 Area Deprivation Index Answer Date Mumtaz rded National Score (1-100), lower number is lower ri sk 60 01/13/2023 State Score (1-10), lower number is lower risk 4 01/13/2023 Data from: https://www.neighborhoodatlas.medicine.[facility].edu/. Last address used for calculation [address] [place] [address] 01/13/2023 Sex and Gender Information Value Date [...] 2:20 PM EST Office Visit Endocrinology [address] [place] [address] Gaudencio Lewis MD [address] [place] [address] [address] [place], [place] [phone] Return in about 6 months (around 02/15/2025). documented as of this encounter Visit Diagnoses Not on filedocumented in this encounter Care Teams Solutions Specialist Relationship Specialty Start Date End Date Alvin Contreras DO [address] [place] [address] PCP - General Internal Medicine 06/19/17 documented as of this encounter
--- OUTSIDE RECORDS SUMMARY | 2025-01-04 13:29 | XMS_ITS | Encounter Summary ---
Author Organization [facility] Address [address] [place] [address] Care Team Providers Care Medication Technician Name Role Phone Alvin Contreras DO Primary Care Provider [phone] Source Comments In the event this information is protected by the Federal Confidentiality of Alcohol and Drug AbusePatient Records regulations: The Federal rules restrict any use of the information to criminally investigate or prosecute any alcohol or drug abuse patient.[facility] Encounter Details Date Type Department Care Team (Late st Contact Info) Description 10/18/2019 Patient Msg Orthopaedics [address] [place], [place] [phone] Provider, Ccf Repeat injection with Dr. Bah [...] 2:20 PM EST Office Visit Endocrinology [address] [place], [place] 8963553 Gaudencio Lewis MD [address] [place] [address] [address] [place], [place] [phone] Return in about 6 months (around 02/15/2025). documented as of this encounter Visit Diagnoses Not on filedocumented in this encounter Care Teams Medication Technician Relationship Specialty Start Date End Date Alvin Contreras DO [address] [place] [address] PCP - General Internal Medicine 06/19/17 documented as of this encounter
--- OUTSIDE RECORDS SUMMARY | 2025-01-04 13:29 | XMS_ITS | Clinical Summary ---
Author Organization [facility] Address [address] [place] [address] Care Team Providers Care Centrifugal Extractor Operator Name Role Phone Bhavik Justin MD Unavailable [phone] Nanda Mustafa DO Unavailable [phone] Alvin Contreras DO Primary Care Provider [phone] Allergies Active Allergy Reactions Criticality Noted Date [...] 02/12/2025 FIT-DNA 02/12/2025 02/12/2022, 11/08/2018 [place] [address] [employer] [place]URI [id number] Care Teams Centrifugal Extractor Operator Relationship Specialty Start Date End Date Alvin Contreras DO [address] [place] [address] PCP - General Internal Medicine 09/19/24 Bhavik Justin MD [address] [address] Referring Physician Neuropsychology 02/22/24 Nanda Mustafa DO [address] [place] [address] Referring Physician Neurology 04/05/24
--- OUTSIDE RECORDS SUMMARY | 2025-01-04 13:30 | XMS_ITS | Clinical Summary ---
Author Organization [facility] Address [id number] [address] [place] [address] Care Team Providers Care Catalog Specialist Name Role Phone Alvin Contreras DO Primary Care Provider [phone] Allergies Active Allergy Reactions Criticality Noted Date [...] file Insurance MEDICARE [employer] [place] [id number] Care Teams Catalog Specialist Relationship Specialty Start Date End Date Alvin Contreras DO [facility] [place] [address] PCP - General 12/15/17
--- OUTSIDE RECORDS SUMMARY | 2025-01-04 13:30 | XMS_ITS | Patient Health Record ---
Author Organization [facility] Address [address] [place] [address] Care Team Providers Care Chain Puller Name Role Phone Alvin Contreras DO Primary Care Provider Gomez Jaquez Unavailable [phone] Davin Reyes Unavailable [phone] Allergies No Known Allergies Reason For Referral Reason Referal to neurology Diagnosis 1 Primary osteoarthrit is, right ankle and foot (M19.071) Diagnosis 2 Right ankle pain (M2 5.571) Referral Organization [facility]) Referring Provider First Name Gomez Referring Provider Last Name Jennie Referring Provider Speciality Podiatry Referred Provider Specialty Neurology Referral Priority Routine Reason Physical Therapy ref erral Diagnosis 1 Primary osteoarthrit is, right ankle and foot (M19.071) Referral Organization [facility]) Referring Provider First Name Gomez Referring Provider Last Name Jennie Referring Provider Speciality Podiatry Referred Provider Specialty Physical The rapist Referral Priority Routine Medications Medication SIG (Take, Route, Frequency, Duration) Notes Start Date End Date Status dexAMETHasone Sod Phos (PF) 10 MG/ML as directed Injection; Duration: 30 days 02/10/2024 Not-Taking amLODIPine Besylate 10 MG Oral; Duration : 90 Days Active Meloxicam 15 MG TAKE 1 TABLET BY KARLENE TH EVERY DAY FOR 30 DAYS; Duration: 30 Active dexAMETHasone Sod Phos (PF) 10 MG/ML as directed Injection; Duration: 30 days 02/10/2024 Not-Taking dexAMETHasone Sod Phos (PF) 10 MG/ML as directed Injection 1; Duration: 30 days 02/10/2024 Not-Taking Flecainide Acetate 100 MG Oral; Duration : 90 Days Active dexAMETHasone Sodium Phosphate 4 MG/ML 1.5ml-2.5ml topically up to 3 times weekly at physical therapy; Duration: 30 days 12/30/2023 Not-Taking Losartan Potassium-HCTZ 100-25 MG Oral; Duration: 90 Days Active Multi Complete - as directed Orally Active Baclofen 10 MG TAKE 1 TABLET BY KARLENE TH AT BEDTIME EVERY NIGHT Oral; Duration: 90 Days Unknown Immunizations Vaccine Route Administration Date Status Comme nts Arexvy Unknown 03/03/2023 Administered Flu, Fluad (68345) 65 yrs+, single-dose syringe (9757-3367) Unknown 12/16/2022 Administered Pneumococcal (Pneumovax 23) Unknown [...] Problem Status W/U Status Risk Notes Problem Chronic obstructive pulmonary disease (67430902) Chronic obstructive pulmonary disease, unspecified (J44.9) Active confirmed Problem Obesity (182742072) Obesity, unspecified (E66.9) Active confirmed Problem Localized, primary osteoarthritis of the ankle and/or foot (389745055) Primary osteoarthritis, right ankle and foot (M19.071) Active confirmed Problem Obstructive sleep apnea syndrome (37597521) REMY (obstructive sleep apnea) (G47.33) Active confirmed Problem Arthralgia of the ankle and/or foot (412996793) Right ankle pain (M25.571) Active confirmed Problem Atrial fibrillation (12642962) PAF (paroxysmal atrial fibrillation) (I48.0) Active confirmed Problem History of asbestos exposure (063900197) History of asbestos exposure (Z77.090) Active confirmed Problem Body mass index 30.00 to 34.99 (175538730350687) Body mass index [BMI] 34.0-34.9, adult (Z68.34) Active confirmed Problem History of COVID-19 (06564812251344773 5) History of COVID-19 (Z86.16) Active confirmed Vital Signs Heart Rate 71 /min 04/05/2024 Temperature 96.9 degrees Fahrenheit 04/05/2024 Oximetry 99 % 04/05/2024 Height 75 in 04/05/2024 Weight 260 lbs 02/10/2024 BMI 32.49 kg/m2 02/10/2024 Encounters Encounter Location Date Provider Diagnosis [facility] [address] [place] [address] [place] [address] [facility], right ankle and foot M19.071 and Other specified joint disorders, right ankle and foot M25.871 [facility] ([facility]) [address] [place] [address] [place] [address] 04/05/2024 Gomez Schneider Primary osteoarthritis, right ankle and foot M19.071 ; Posterior tibial tendinitis, right leg M76.821 and Ingrowing nail L60.0 [facility] ([facility]) [address] [place] [address] [place] [address] 02/10/2024 [facility]) [address] [place] [address] [place] [address] 02/10/2024 [facility] ([facility]) [address] [place] [address] [place] [address] 02/10/2024 [facility] [place] [address] [place] [address] 11/15/2024 Davin Reeys [facility] Encounter Date Diagnosis (ICD Code) Assessment Notes [...] Coverage Start Date Coverage End Date MEDICARE [facility] [address] [address] [place], [place] [id number] Juan David Duque Self - patient is the insured 5 [employer] [place] [address] [address] [place], [place] [id number] Juan David Duque Self - patient is the insured 5 Medical (General) History Medical History History ICD Code REMY (obstructive sleep apnea) G47.33 HLD (hyperlipidemia) E78.5 PAF (paroxysmal atrial fibrillation) I48 .0 LVH (left ventricular hypertrophy) I51.7 HTN (hypertension) I10 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
--- OUTSIDE RECORDS SUMMARY | 2025-01-04 13:30 | XMS_ITS | Clinical Summary ---
Author Organization [facility] Address [address] [place] [address] Care Team Providers Care Outgoing Inspector Name Role Phone Alvin Contreras DO Primary Care Provider [phone] Allergies Active Allergy Reactions Criticality Noted Date [...] (05/08/2022): Added automatically from request for surgery [id number] Last Assessment & Plan: H/o, radical resection [...] Description 10/27/2024 3:50 AM EDT Ancillary Procedure [facility] [address] [place] [address] Awareness of heartbeats 10/27/2024 Orders Only [facility] [address] [place] [address] Alpesh Jenkins MD 10/25/2024 2:15 PM EDT Office Visit [facility] [address] [place] [address] Alpesh Jenkins MD PAF (paroxysmal [...] this topic Medical Devices Implanted Type Area Chief Of Safety And Protection Device Identifier Shelf Expiration Date Model / Serial / Lot Monitor,Cardi ac,Lux,Dxii+I cm - [id number] - [id number] Implanted:Qty : 1 on 12/09/2023 by Alpesh Jenkins MD at [facility] Implantable Loop Recorder Left: Chest Appwapp 03/31/2025 [id number] / [id number] / Procedures Procedure Name Priority Date/Time Associated Diagnosis Comments CARDIAC DEVICE CHECK CHECK - REMOTE Routine 11/15/2024 10:30 AM EDT Awareness of heartbeats CARDIAC DEVICE CHECK - REMOTE - LOOP RECORDER (ILR) Routine 10/27/2024 12:00 AM EDT from Last 3 Months Results * CARDIAC DEVICE CHECK - REMOTE - LOOP RECORDER (ILR) (11/15/2024 10:30 AM EDT) Alpesh Jenkins MD CV IMPLANTABLE CARDIAC DEVICE [place] OCEDURES Final Result CPACS * Cardiac device check - Remote loop recorder (ILR) (10/27/2024 12:00 AM EDT) Anatomical Region Laterality Modality Other 10/27/2024 Alpesh Jenkins MD CV IMPLANTABLE CARDIAC DEVICE [place] OCEDURES Final Result from Last 3 Months [place] [address] GENERIC OTHER [place] [id number] Care Teams Outgoing Inspector Relationship Specialty Start Date End Date Alvin Contreras DO [address] [place] [address] [address] PCP - General 05/08/22
--- OUTSIDE RECORDS SUMMARY | 2025-01-04 13:30 | XMS_ITS | Encounter Summary ---
Author Organization [facility] Address [address] [place] [address] Care Team Providers Care Grass Farmer Name Role Phone Alvin Contreras DO Primary Care Provider [phone] Source Comments In the event this information is protected by the Federal Confidentiality of Alcohol and Drug AbusePatient Records regulations: The Federal rules restrict any use of the information to criminally investigate or prosecute any alcohol or drug abuse patient.[facility] Encounter Details Date Type Department Care Team (Late st Contact Info) Description 08/21/2017 Patient Msg Medical Records [address] [place] [address] Provider, Ccf [facility] Medical Education Program Social History [...] PM EST Office Visit Endocrinology [address] [place] [address] Gaudencio Lewis MD [address] [place] [address] [address] [place], [place] [phone] Return in about 6 months (around 02/15/2025). documented as of this encounter Visit Diagnoses Not on filedocumented in this encounter Care Teams Grass Farmer Relationship Specialty Start Date End Date Alvin Contreras DO [address] [place] [address] PCP - General Internal Medicine 06/19/17 documented as of this encounter
--- OUTSIDE RECORDS SUMMARY | 2025-01-04 13:30 | XMS_ITS | Clinical Summary ---
Author Organization [facility] Address [address] [place] [address], [address] [place] [address] Care Team Providers Care Subway Repair Supervisor Name Role Phone Unavailable Primary Care Provider [...]
--- OUTSIDE RECORDS SUMMARY | 2025-01-04 13:30 | XMS_ITS | Clinical Summary ---
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 Encounters Date Type Department Care Team Description 11/29/2024 2:20 PM EDT [facility] Endocrine Surgery [address] [place], [place] [address] Geneva Samayoa MD Hyperparathyroidism (HCC) (Primary Dx) 11/28/2024 Travel 11/23/2024 Telephone Endocrine Surgery [address] [place] [address] Geneva Samayoa MD Outside Lab Results 11/23/2024 Orders Only Endocrine Surgery [address] [place], [place] [address] Geneva Samayoa MD 11/21/2024 Get Medical Advice Endocrine Surgery [address] [place] [address] Geneva Samayoa MD CALCIUM TOTAL BLD, Parathyroid hormone (PTH intact), Vitamin D, 25-hydroxy 11/18/2024 Telephone Endocrine Surgery [address] [place] [address] Geneva Samayoa MD Post Op 11/18/2024 Orders Only Endocrine Surgery [address] [place] [address] Geneva Samayoa MD Hyperparathyroidism (HCC) (Primary Dx) 11/14/2024 7:30 AM EDT - 11/14/2024 9:00 AM EDT Surgery [facility] Surgery [address] [place] [address] Geneva Samayoa MD PARATHYROIDECTOMY 11/14/2024 7:23 AM EDT Anesthesia Event [facility] Surgery [address] [place] [address] Sidney Larsen III, MD 11/14/2024 6:27 AM EDT - 11/15/2024 8:46 [place] [address] Geneva Samayoa MD Hyperparathyroidism (HCC) [E21.3] Discharge Disposition: Home 11/03/2024 Patient Msg INITIAL DEPARTMENT [facility] [address] Provider, Ccf Actionable Imaging Result Notification Patient Outreach 11/01/2024 1:18 PM EDT - 11/01/2024 11:59 PM EDT Hospital Encounter Molecular Imaging [address] [place] [address] Hyperparathyroidism (HCC) [E21.3] Discharge Disposition: Home 11/01/2024 11:15 AM EDT Procedure Cardiology [address] [place] [address] 11/01/2024 10:05 AM EDT - 11/01/2024 1:17 PM EDT Hospital Encounter Molecular Imaging [address] [place], [place] [id number] Discharge Disposition: Home 11/01/2024 9:00 AM EDT PAT Pre Anesthesia [address] [place] [id number] 6, [place] Chondrosarcoma (HCC) (Primary Dx); REMY (obstructive sleep apnea); Essential hypertension; Class 1 obesity due to excess calories without serious comorbidity with body mass index (BMI) of 34.0 to 34.9 in adult; Paroxysmal atrial fibrillation (HCC); SVT (supraventricular tachycardia) (HCC) 11/01/2024 Travel 10/19/2024 Travel 10/07/2024 Patient Msg Endocrine Surgery [address] [place] [address] Provider, Ccf Pre-op Appointments 10/04/2024 Telephone Endocrine Surgery [address] [place] [id number] Geneva Samayoa MD [place] Parathyroid Request from [...] is lower risk 4 01/13/2023 Data from: https://www.neighborhoodatlas.[facility]/. Last address used for calculation [address] 01/13/2023 Sex and Gender [...] PM EST Office Visit Endocrinology [address] [place] [address] Gaudencio Lewis MD [address] [place] [address] [place] [address] Return in about 6 months (around [...] Completed 03/03/2023 Medical Devices Implanted Type Area Legal Paraprofessional Device Identifier Shelf Expiration Date Model / Serial / Lot Graft Enhance Demineralized Cortical Fiber Bone Allograft Dehydrate 2.5ml - [id number] Implanted:Qty: 1 on 08/27/2017 at [facility] Bone MTF 07/28/2018 [id number] / / [id number] Graft Cancellous Chips Bone Void Freeze Dry 30ml (1.7-10mm) - [id number] Implanted:Qty: 1 on 08/27/2017 at [facility] Bone MTF 05/30/2020 [id number] / / [id number] Graft Dbx Bone Void Allograft Freeze Dried Putty 1ml - [id number] Implanted:Qty: 1 on 08/27/2017 at [facility] Cement / Putty MTF 01/27/2019 [id number] / [id number] / Tibial Nail Implanted:Qty: 1 on 08/27/2017 at [facility] Implant OTHER 11/27/2021 [id number] / / [id number] Carbofix Titaniumscrew Implanted:Qty: 1 on 08/27/2017 at [facility] Implant OTHER [id number] / / Carbofix Titanium Screw Implanted:Qty: 1 on 08/27/2017 at [facility] Implant OTHER [id number] / / Carbofix Titanium Screw Implanted:Qty: 1 on 08/27/2017 at [facility] Implant OTHER [id number] / / Carbofix Titanium Screw Implanted:Qty: 1 on 08/27/2017 at [facility] Implant OTHER [id number] / / Carbofix Titanium Screw Implanted:Qty: 1 on 08/27/2017 at [facility] Implant OTHER [id number] / / Procedures Procedure Name Priority [...] us Tiffany Sanchez MD LABORATORY Final Result [facility] [address] [place] [address], * CALCIUM, TOTAL (11/15/2024 4:01 AM EDT) Calcium, Total 9.2 8.5 - 10.2 mg/dL 11/15/2024 5:27 AM EDT [facility] Blood BLOOD SPECIMEN / Unknown Venipuncture / Unknown 11/15/2024 4:01 AM EDT 11/15/2024 4:38 AM EDT Tiffany Sanchez MD LABORATORY Final Result Performing Organization Address [facility] Co de Phone Number [facility] [address] [place] [address], * ECG COMPLETE (11/14/2024 11:35 AM EDT) Ventricular Rate 64 BPM [facility] Atrial Rate 64 BPM [facility] P-R Interval 164 ms [facility] QRS Duration 192 ms [facility] QT Interval 488 ms [facility] QTC Calculation (Bazett) 503 ms [facility] Calculated P [place] 73 degrees [facility] Calculated R [place] -76 degrees [facility] Calculated T [place] 19 degrees [facility] 11/14/2024 11:3 5 AM EDT Impressions [facility] - 11/14/2024 12:20 PM EDT Normal sinus rhythm Right bundle branch block Left anterior fascicular block Bifascicular block Septal infarct , age undetermined Abnormal ECG No previous ECGs available Confirmed by KEON MAGAÑA MD ([id number]) on 11/14/2024 12:20:23 PM Narrative [facility] - 11/14/2024 12:20 PM EDT NAME : BANG SHARMA PID : [id number] : 1950 Gender : Male Race : ORD : [id number] Procedure Date : Nov 14 2024 11:35:23 Edit Date : Nov 14 2024 12:20:28 Diagnosis: Normal sinus rhythm Right bundle branch block Left anterior fascicular block Bifascicular block Septal infarct , age undetermined Abnormal ECG No previous ECGs available Confirmed by KEON MAGAÑA MD ([id number]) on 11/14/2024 12:20:23 PM Test Reason : Post-OP Location : 1 : [facility] 021 Overread By : KEON MAGAÑA MD Edited By : KEON MAGAÑA MD Referred By : , Acquired by : DUONG KUMAR us Tiffany Sanchez MD EKG Final Result Performing Organization Address [facility] Co de Phone Number [facility] [address] [place] [address] * (ABNORMAL) INTRAOPERATIVE PTH (11/14/2024 8:10 AM EDT) Only the most recent of2 resultswithin the time period is included. Intraoperative PTH 73(H) 15 - 65 pg/mL 11/14/2024 9:11 AM EDT [facility] Blood BLOOD SPECIMEN / Unknown 11/14/2024 8:10 AM EDT 11/14/2024 8:50 AM EDT Comment:Pre-op diagnosis: Hyperparathyroidism (HCC) [E21.3] us Geneva Samayoa MD LABORATORY Final Res ult Performing Organization Address [facility] Co de Phone Number [facility] [address] [place] [address], * SURGICAL PATHOLOGY (11/14/2024 7:55 AM EDT) Case Report Surgical Pathology Report Case: [id number] Authorizing Provider: Geneva Samayoa MD Collected: 11/14/2024 07:55 AM Ordering Location: [facility] Received: 11/14/2024 08:04 AM Pathologist: Deysi Singh MD Intraop: Ella Johnson MD Specimens: A) - Parathyroid Gland, Right, right upper [id number] B) - Parathyroid Gland, Left, Left upper 12x9x3 C) - Parathyroid Gland, Right, right upper [id number] 11/16/2024 11:04 AM EDT [facility] FINAL DIAGNOSIS A, C. Right upper parathyroid, excision: - Hypercellular parathyroid. B. Left upper parathyroid, excision: - Hypercellular parathyroid. SHANA November 16, 2024 11/16/2024 11:04 AM EDT [facility] at 1104 EDT Gross Description A. Parathyroid Gland, Right FSA1: Received fresh for frozen section is one piece of brown soft tissue weighing 0.590 grams and measuring 2.2 x 0.9 x 0.6 cm. 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 Gross examination performed at [facility], [address], [place] [address] CLIA# [id number] B. Parathyroid Gland, Left FSB1: Received fresh for frozen section is one piece of brown soft tissue weighing 0.245 grams and measuring 0.9 x 0.9 x 0.3 cm. The tissue is entirely submitted for frozen section in FSB1. Gross examination performed at [facility], [address], [place] [address] CLIA# [id number] C. Parathyroid Gland, Right Labeled: Right upper 31 x 18 x 10 Received: In formalin Size: 2.8 x 1.5 x 0.9 cm Weight: 1640 mg Cassette code: Representatively in C1 (serially section) Gross examination performed at [facility], [address] [place] [address] MSL/MADIHA 11/14/24 12:25 PM 11/16/2024 11:04 AM EDT [facility] Intraoperative Diagnosis A. Parathyroid Gland, Right FSA1: Hypercellular parathyroid tissue (Ella Johnson MD) Intraoperative diagnosis performed at [facility], [address], [place] [id number] CLIA# [id number] B. Parathyroid Gland, Left FSB1: Hypercellular parathyroid tissue (Ella Johnson MD) Intraoperative diagnosis performed at [facility], [address], [place] [address] CLIA# [id number] 11/16/2024 11:04 AM EDT [facility] Clinical History Pre-op diagnosis: Hyperparathyroidis m (HCC) [E21.3] 11/16/2024 11:04 AM EDT [facility] Performing Lab Diagnostic interpretation performed at: [facility], [facility], [address] [address] CLIA# [id number] Clinical Scientist: Herson Cuenca MD 11/16/2024 11:04 AM EDT [facility] Disclaimer Laboratory Developed Test (LDT) Disclaimer: Performance characteristics of immunohistochemica l, immunofluorescent, and chromogenic in-situ hybridization tests have been determined by the performing laboratory within [facility]'s [facility] and Laboratory Medicine Department ([facility], [facility], [facility], [facility], [facility], [facility], or [facility]) in a manner consistent with CLIA requirements. One or more of these tests may not have been cleared or approved by the FDA. [facility] is regulated under CLIA as qualified to perform high-complexity testing. These tests are used for clinical purposes. These should not be regarded as investigational or for research. Positive and negative controls stain appropriately. 11/16/2024 11:04 AM EDT [facility] Tissue PARATHYROID STRUCTURE / Unknown [...] Geneva Samayoa MD SURGICAL PATHOLOGY Final Result [facility] [address] [facility] [address] [place] [address], [place] [facility] [address] [place] [id number], [place] * Airway (11/14/2024 7:32 AM EDT) Narrative Nanda Hawkins APRN.LENS AND FRAMES PRESCRIPTION CLERK - 11/14/2024 7:32 AM EDT Nanda Hawkins APRN.LENS AND FRAMES PRESCRIPTION CLERK 11/14/2024 7:46 AM Airway General Information Procedure Start Time/Medication Administration: 11/14/2024 7:32 AM Procedure End Time: 11/14/2024 7:32 AM Patient location during procedure: OR Staffing LENS AND FRAMES PRESCRIPTION CLERK: Nanda Hawkins APRN.LENS AND FRAMES PRESCRIPTION CLERK Performed by: LORE Indications and Patient Condition Indications for airway management: anesthesia Preoxygenated: yes anesthesia circuit Method: sleep Difficult Mask: No Final Airway Details Final airway type: endotracheal airway Final Endotracheal Airway: ETT Cuffed: yes Successful intubation technique: video laryngoscopy Devices used: Medical Simulation Endotracheal tube insertion site: oral Blade size: [...] be communicated with the ordering provider via [employer] staff message or phone message by Imaging Support Services within 2 business days of report finalization. --END OF FINDING-- Apparatus Engineering Technologist: BARBARA Transcribe Date/Time: Nov 02 2024 7:32A [...] Images: No additional findings. Procedure Note Provider, [facility] - 11/02/2024 * * *Final Report* * * DATE OF EXAM: Nov 01 2024 2:25PM [facility] 0089 - [place] PARATHYROID W [...] be communicated with the ordering provider via [employer] staff message or phone message by [facility] Support [facility] within 2 business days of report finalization. --END OF FINDING-- Apparatus Engineering Technologist: BARBARA Transcribe Date/Time: Nov 02 2024 7:32A [...] ms [facility] Calculated P [place] 85 degrees [facility] Calculated R [place] -69 degrees [facility] Calculated T [place] 33 degrees [facility] 11/01/2024 11:5 5 AM EDT Impressions [facility] - 12/08/2024 9:49 AM EDT SINUS BRADYCARDIA LEFT AXIS DEVIATION COMPLETE RIGHT BUNDLE BRANCH BLOCK ABNORMAL ECG Confirmed by BOBBY TILLEY, ENRIQUE ([id number]) on 12/08/2024 9:49:14 AM Narrative [facility] - 12/08/2024 9:49 AM EDT NAME : BANG SHARMA PID : [id number] : 1950 Gender : Male Race : ORD : [id number] Procedure Date : Nov 01 2024 11:55:05 Edit Date : Dec 08 2024 09:49:21 Diagnosis: SINUS BRADYCARDIA LEFT AXIS DEVIATION COMPLETE RIGHT BUNDLE BRANCH BLOCK ABNORMAL ECG Confirmed by ENRIQUE ROSALES MD ([id number]) on 12/08/2024 9:49:14 AM Test Reason : Location : 314 : J14 J14 Overread By : ENRIQUE ROSALES MD Edited By : ENRIQUE ROSALES MD Referred By : GENEVA SAMAYOA Acquired by : JENIFFER MCCAULEY us Geneva Samayoa MD EKG Final Res ult Performing Organization Address [facility] Co de Phone Number [facility] [address] [place] [phone] * (ABNORMAL) CALCIUM, IONIZED (11/01/2024 11:24 AM EDT) Normalized Calcium 1.44(H) 1.08 - 1.30 mmol/L 11/01/2024 2:08 PM EDT [facility] Calcium Ionized, Whole Blood 1.45(H) 1.08 - 1.30 mmol/L 11/01/2024 2:08 PM EDT [facility] Blood BLOOD SPECIMEN / Unknown Venipuncture / Unknown 11/01/2024 11:24 AM EDT 11/01/2024 11:24 AM EDT us Geneva Samayoa MD LABORATORY Final Res ult [facility] [address] [place] [address], * COMPLETE BLOOD COUNT AND DIFFERENTIAL (11/01/2024 11:24 AM EDT) WBC 5.86 3.70 - 11.00 k/uL 11/01/2024 12:25 PM EDT [facility] RBC 4.58 4.20 - 6.00 m/uL 11/01/2024 12:25 PM EDT [facility] Hemoglobin 14.3 13.0 - 17.0 g/dL 11/01/2024 12:25 PM EDT [facility] Hematocrit 44.3 39.0 - 51.0 % 11/01/2024 12:25 PM EDT [facility] MCV 96.7 80.0 - 100.0 fL 11/01/2024 12:25 PM EDT [facility] MCH 31.2 26.0 - 34.0 pg 11/01/2024 12:25 PM EDT [facility] MCHC 32.3 30.5 - 36.0 g/dL 11/01/2024 12:25 PM EDT [facility] RDW-CV 13.6 11.5 - 15.0 % 11/01/2024 12:25 PM EDT [facility] Platelet Count 307 150 - 400 k/uL 11/01/2024 12:25 PM EDT [facility] MPV 9.1 9.0 - 12.7 fL 11/01/2024 12:25 PM EDT [facility] Neutrophils % 59.7 % 11/01/2024 12:25 PM EDT [facility] Abs Neut 3.50 1.45 - 7.50 k/uL 11/01/2024 12:25 PM EDT [facility] Lymphocytes % 25.3 % 11/01/2024 12:25 PM EDT [facility] Abs Lymph 1.48 1.00 - 4.00 k/uL 11/01/2024 12:25 PM EDT [facility] Monocytes % 11.9 % 11/01/2024 12:25 PM EDT [facility] Abs [place] 0.70 <0.87 k/uL 11/01/2024 12:25 PM EDT [facility] Eosinophils % 1.9 % 11/01/2024 12:25 PM EDT [facility] Abs Eosin 0.11 <0.46 k/uL 11/01/2024 12:25 PM EDT [facility] Basophils % 0.9 % 11/01/2024 12:25 PM EDT [facility] Abs Baso 0.05 <0.11 k/uL 11/01/2024 12:25 PM EDT [facility] Immature Granulocytes % 0.3 % 11/01/2024 12:25 PM EDT [facility] Abs Immature Gran <0.03 <0.10 k/uL 11/01/ 025 12:25 PM EDT [facility] NRBC 0.0 /100 WBC 11/01/2024 12:25 PM EDT [facility] Absolute nRBC <0.01 <0.01 k/uL 11/01/2024 12:25 PM EDT [facility] Diff Type Auto 11/01/2024 12:25 PM EDT [facility] Blood BLOOD SPECIMEN / Unknown Venipuncture / Unknown 11/01/2024 11:24 AM EDT 11/01/2024 11:24 AM EDT us Geneva Samayoa MD LABORATORY Final Res ult [facility] [address] [place] [address], * (ABNORMAL) BASIC METABOLIC PANEL (11/01/2024 11:24 AM EDT) [facility] Glucose 108(H) 74 - 99 mg/dL 11/01/2024 2:16 PM EDT [facility] Comment: The [place] Diabetes Association (ADA) provides guidance for cutoff [...] Standards of Medical Care in Diabetes 2016, [place] Diabetes Association. Diabetes Care. 2016.39(Suppl 1). BUN 18 9 - 24 mg/dL 11/01/2024 2:16 PM EDT [facility] Creatinine 0.86 0.73 - 1.22 mg/dL 11/01/2024 2:16 PM EDT [facility] Sodium 140 136 - 144 mmol/L 11/01/2024 2:16 PM EDT [facility] Potassium 4.5 3.7 - 5.1 mmol/L 11/01/2024 2:16 PM EDT [facility] Chloride 105 98 - 107 mmol/L 11/01/2024 2:16 PM EDT [facility] CO2 26 22 - 30 mmol/L 11/01/2024 2:16 PM EDT [facility] Anion Gap 9 8 - 15 mmol/L 11/01/2024 2:16 PM EDT [facility] Calcium, Total 11.0(H) 8.5 - 10.2 mg/dL 11/01/2024 2:16 PM EDT [facility] Estimated Glomerular Filtration Rate 90 >=60 mL/min/1. 73m 11/01/2024 2:16 PM EDT [facility] Comment:Estimated Glomerular Filtration Rate (eGFR) [...] Geneva Samayoa MD LABORATORY Final Res ult [facility] [address] [address], * (ABNORMAL) CREATININE, 24 HOUR URINE (10/19/2024 1:36 PM EDT) Creatinine 24 hr Ur 2.006(H) 1.000 - 2.000 g/24 hr 10/20/2024 5:25 PM EDT [facility] Period 24 hr 10/20/2024 5:25 PM EDT [facility] Volume 1,750 mL 10/20/2024 5:25 PM EDT [facility] Urine URINE SPECIMEN / Unknown Non Blood / Unknown 10/19/2024 1:36 PM EDT 10/19/2024 1:36 PM EDT Geneva Samayoa MD LABORATORY Final Res ult [facility] [address] [place] [address], [facility] [address] [place] [address] * (ABNORMAL) CALCIUM, 24 HR URINE (10/19/2024 1:35 PM EDT) Calcium, 24 Hr Urine 357.0(H) 100.0 - 300.0 mg/24 hr 10/20/2024 7:10 PM EDT [facility] Period 24 hr 10/20/2024 7:10 PM EDT [facility] Volume 1,750 mL 10/20/2024 7:10 PM EDT [facility] Urine URINE SPECIMEN / Unknown Non Blood / Unknown 10/19/2024 1:35 PM EDT 10/19/2024 1:35 PM EDT us Geneva Samayoa MD LABORATORY Final Res ult [facility] [address] [address], [facility] [address] [place] [address] from Last 3 Months Insurance [address] [place] [address] MEDICARE [employer] MEDICARE RAILROAD Advance Directives Documents on File Type Date Recorded 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
--- OUTSIDE RECORDS SUMMARY | 2025-01-04 13:30 | XMS_ITS | Encounter Summary ---
Author Organization [facility] Address [address] [place] [address] Care Team Providers Care Carry In Worker Name Role Phone Alvin Contreras DO Primary Care Provider [phone] Source Comments In the event this information is protected by the Federal Confidentiality of Alcohol and Drug AbusePatient Records regulations: The Federal rules restrict any use of the information to criminally investigate or prosecute any alcohol or drug abuse patient.[facility] Encounter Details Date Type Department Care Team (Late st Contact Info) Description 12/04/2022 Patient Msg [facility] [place] [address] [place] [address] Provider, Ccf Appointment Rescheduled Social History Tobacco Use Types Packs/Day Years Used Date Smoking Tobacco: Never Smokeless Tobacco: Never PHQ-2 Answer Date Recorded PHQ-2 score 0 06/30/2019 Area Deprivation Index Answer Date Mumtaz rded National Score (1-100), lower number is lower ri sk 60 05/18/2022 State Score (1-10), lower number is lower risk N ot on file 05/18/2022 Data from: https://www.neighborhoodatlas.medicine.[facility].edu/. Last address used for calculation [address] [place] [address] 05/18/2022 Sex and Gender Information Value Date [...] 2:20 PM EST Office Visit Endocrinology [address] [place] [address] Gaudencio Lewis MD [address] [place] [address] [place] [address] Return in about 6 months (around 02/15/2025). documented as of this encounter Visit Diagnoses Not on filedocumented in this encounter Care Teams Carry In Worker Relationship Specialty Start Date End Date Alvin Contreras DO [address] [place] [address] PCP - General Internal Medicine 06/19/17 documented as of this encounter
--- OUTSIDE RECORDS SUMMARY | 2025-01-04 13:30 | XMS_ITS | Encounter Summary ---
Author Organization [facility] Address [address] [place] [address] Care Team Providers Care Life Teacher Name Role Phone Alvin Contreras DO Primary Care Provider [phone] Encounter Details Date Type Department Care Team (Late st Contact Info) Description 10/27/2024 Orders Only [facility] [address] [place] [address] Alpesh Jenkins MD [address] [place] [address] Social History Tobacco Use Types [...] Alpesh Jenkins MD CV IMPLANTABLE CARDIAC DEVICE [place] OCEDURES Final Result documented in this encounter Visit Diagnoses Not on filedocumented in this encounter Care Teams Life Teacher Relationship Specialty Start Date End Date Alvin Contreras DO [address] [place] [id number] PCP - General 05/08/22 documented as of this encounter
--- OUTSIDE RECORDS SUMMARY | 2025-01-04 13:55 | XMS_ITS | CCD ---
Author Organization [facility] Team Providers Care Health Sciences Manager Name Role Phone PHYSICIAN, DEFAULT Unavailable Unavailable PHYSICIAN, DEFAULT Unavailable ALVIN White Unavailable Alvin White DO Primary Care Provider DR ALIVN LO Primary Care Unavailable HANNA TORRES Admitting [...] Vazquez Attending Unavailable DREA LINO Attending Unavailable ALPEHS DAVIS Attending Unavailable RAFAEL BYRNE Attending Unavailable ALPESH DAVIS Referring Unavailable SUSANALPESH Vazquez Referring Unavailable SUSANALPESH Vazquez Admitting Unavailable ALPESH DAVIS Attending Unavailable ALPESH DAVIS Referring Unavailable BALL, ALVIN E Primary Care Unavailable BUTLER, GENEVA MORALES Attending Unavailable BUTLER, GENEVA MORALES Admitting Unavailable DONALD, HERBER JORDANIND Attending Unavailable BALL, ALVIN E Primary Care Unavailable BUTLER, GENEVA MORALES Attending Unavailable BALL, ALVIN E Primary Care Unavailable BUTLER, GENEVADHARA FRANKS ANDREW Referring Unavailable BALL, ALVIN E Primary Care Unavailable BALL, ALVIN E Primary Care Unavailable BUTLER, GENEVA MANDUJANOE Referring Unavailable BUTLER, GENEVA FRANKS ANDREW Referring [...] Care Provider Alvin Lo DO Attending Provider Geneva Butler MD Attending Provider Provider, Outside Attending Provider Unavailable Foreign Torres DO Attending Provider Kathy Nguyen CMA Attending Provider Unavaila ble Alvin Lo DO Primary Care Provider Alvin Lo DO Attending Provider Amanda Mustafa DO Attending Provider [phone] Allergies Allergy Classification Reported Allergen(s) Allergy Type Date of Onset Reaction(s) Facility (2 sources) meperidine Drug Allergy 4 [facility] Repository (12 sources) Penicillins; Translations: [PENICILLINS] Drug allergy (disorder) 2 AOF, Unknown Reaction [facility] Repository (4 sources) [facility] (19 sources) Insects Extract; Translations: [INSECTS EXTRACT] Drug Allergy 1 Other: See Comments [facility] (8 sources) atorvastatin Drug Allergy 4 Unknown, Unknown Reaction [facility] (2 sources) Penicillin Drug Allergy Unknown [place] Other (2 sources) Substance with penicillin structure and antibacterial mechanism of action (substance) Drug allergy Unknown [place] Other (8 sources) Meperidine; Translations: [MEPERIDINE] Drug Allergy 8 [facility] (7 sources) Penicillins Drug Allergy 4 Hives, Rash, Other [facility] Healthcare (12 sources) Penicillins Drug Allergy 4 Hives [facility] (1 source) carvedilol; Translations: [CARVEDILOL] Drug Allergy 3 [facility] Repository (1 source) Metoprolol; Translations: [METOPROLOL] Drug Allergy 3 [facility] Repository Medications Current Medications Medication Drug [...] Start: 08-02-2018 take 4 tablets by mo [facility] twice daily amLODIPine (NORVASC) 2.5 mg [...] once daily. baclofen 10 mg oral tablet (12 sources) gamma-Aminobutyric Acid-ergic Agonist Start: 06-12-2024 take [...] 1 tablet by mouth three times daily qsfdhwy-qiocxuhir-ag tamin D3 500 mg-5 mcg (200 unit) per tablet Take 1 tablet by mouth three times a day. 90 tablet 11/15/2024 Active cholecalciferol 1.25 mg oral capsule (5 sources) Vitamin D Start: 04-11-2024 take 1 capsule by mouth every week Cholecalciferol (Vitamin D3) 1,250 mcg (50,000 unit) capsule Active 1250 MCG PO every week 09 16April 11, 2024 1:00am Complies with drug therapy flecainide acetate 100 mg oral tablet (20 [...] mouth two times a day. 10/08/2021 Active hydroCHLOROthiazide 25 mg / losartan potassium 100 mg oral tablet (20 sources) Thiazide Diuretic, Angiotensin 2 Receptor Gloria Start: 01-03-2025 take 1 tablet by mouth once daily Losartan-Hydrochlorothiazide 100-25 mg tablet Active 1 TAB PO Daily January 03, 2025 12:00am Complies with drug therapy Start: 03-20-2017 End: 04-08-2024 take 1 tablet by mouth once daily Losartan-Hydrochlorothiazide 100-25 mg tablet Discontinued 1 TAB PO Daily September 01, 2023 12:00am April 08, 2024 7:46pm Comment on above: Take 1 tablet by sudhakar once daily. Leg Brace (Osmar Ankle Brace) misc (1 source) Start: 01-03-2025 Leg Brace (Osmar Ankle Brace) misc Active 0 .Route 1 January 03, 2025 12:00am AFO right foot. Dx foot drop Dx lifetime. To prevent falls and lessen morbidity and mortality risk Losartan Potassium-HCTZ 100-25MG (2 sources) Start: 04-04-2022 Losartan Potassium-HCTZ 100-25MG Losartan Potassium-HCTZ( 100-25MG Oral ) Active -Hx Entry Oral *Pick strength-form from BOND for eRX* Mar, Active magnesium citrate 58.2 mg/ml oral solution (7 sources) magnesium citrat e solution Take by mouth Active magnesium gluconate 550 mg oral tablet (16 sources) Magnesium 30 mg tablet Take 500 mg by mouth once daily. Active Comment on above: Take 500 mg by mouth once daily. Multivitamin With Iron (1 source) Start: 09-01-2023 take 1 tablet by mouth once daily Multivitamin With Iron Active 1 TAB PO Daily September 01, 2023 12:00am Multivitamin With Iron tablet (5 sources) Start: 09-01-2023 take 1 tablet by [...] day and taking 100mg's every other day. clindamycin 300 mg oral capsule (2 sources) Lincosamide Antibacterial Start: 12-13-2024 End: 01-03-2025 take 1 capsule by mouth every six hours Clindamycin Hcl 300 mg capsule Discontinued 300 MG PO Every 6 hours 40 December 13, 2024 12:00am January 03, 2025 5:28pm doxycycline hyclate 100 mg oral capsule (14 sources) Tetracycline-class Drug Start: 08-30-2024 End: 01-03-2025 take 1 capsule by mouth twice daily Doxycycline Hyclate 100 mg capsule Discontinued 100 MG PO Twice daily 28 September 15, 2024 12:10pm September 29, 2024 1:05pm Start: 04-27-2024 End: 07-06-2024 take 1 capsule by mouth twice daily Doxycycline Hyclate 100 mg capsule Discontinued 100 MG PO Twice daily 14 April 27, 2024 1:00am July 06, 2024 3:01pm losartan potassium 100 mg oral tablet (10 sources) Angiotensin 2 Receptor Gloria Start: 04-08-2024 End: 01-03-2025 take 1 tablet by mouth once daily Losartan 100 mg tablet Discontinued 100 MG PO Daily 90 90 April 11, 2024 4:47pm January 03, 2025 5:28pm meloxicam 15 mg oral tablet (20 sources) Nonsteroidal Anti-inflammatory Drug Start: 03-11-2024 End: 01-03-2025 take 1 tablet by mouth once daily Meloxicam 15 mg tablet Discontinued 15 MG PO Daily March 11, 2024 1:00am January 03, 2025 5:29pm 24 hr metoprolol succinate 25 mg extended [...] DOMINGO, normal RV size/function, RVSP 54 08/2024 CHADs VASc - 2,Echo: LVEF 55%, normal RV size/function, DOMINGO, RVSP 11/2023,Echo: LVEF 55%, DOMINGO, normal RV size/function, RVSP 54 - 08/2024 LHC: normal - 2012St ress test - no ischemia 1CHADs VASc - 2,Echo: LVEF 55%, normal RV size/function, DOMINGO, RVSP 11/2023,Echo: LVEF 55%, DOMINGO, normal RV size/function, RVSP 54 08/2024 Deficiency and other anemia (2 sources) Anemia, unspecified; Translations: [Anemia, unspecified] Episodic Deficiency and other anemia (1 source) Anemia; Translations: [Anemia, unspecified] 08-30-2023 Episodic Disorders of lipid metabolism (18 sources) Familial hypercholesterolemia ; Translations: [Pure hypercholesterolemia [...] Asthenia; Translations: [Weakness] 02-22-2024 Episodic Nutritional deficiencies (5 sources) Vitamin D deficiency; Translations: [Vitamin D [...] Episodic Other diseases of kidney and ureters (5 sources) Hydronephrosis; Translations: [Unspecified hydronephrosis] 03-23-2024 Episodic Other endocrine disorders (2 sources) Adrenal mass; Translations: [Other specified disorders of adrenal gland] Chronic Other endocrine disorders (9 sources) Primary hyperparathyroidism; Translations: [Primary hyperparathyroidism] 08-16-2024 [...] Chronic Other nervous system disorders (2 sources) Polyneuropathy; Translations: [Polyneuropathy, unspecified] 12-13-2024 Chronic Other nervous system disorders (1 source) Peripheral nerve disease ; Translations: [Polyneuropathy, unspecified] 01-03-2025 Chronic Other nervous system disorders (4 sources) Numbness and tingling sensation of skin; Translations: [Anesthesia of skin] 02-22-2024 Episodic Other nutritional; endocrine; and metabolic disorders (8 sources) Obesity; Translations: [Other obesity due to excess calories] Onset: 08-24-2017 08-31-2018 Chronic Other nutritional; endocrine; and metabolic disorders (15 sources) Obesity caused by energy imbalance; Translations: [Other obesity due to excess calories] Onset: 08-24-2017 08-31-2018 Chronic Other nutritional; endocrine; and metabolic disorders (5 sources) Obesity, unspecified; Translations: [Obesity, unspecified] 12-03-2023 Chronic Other nutritional; endocrine; and metabolic disorders (7 sources) Hypercalcemia; Translations: [Hypercalcemia] 03-11-2024 Chronic Other [...] conditions (not mental disorders or infectious disease) (7 sources) Encounter for screening for malignant neoplasm of prostate; Translations: [Patient encounter status] Onset: 02-12-2022 03-10-2024 Episodic Comment on above: PSA: 1.98 - 01/2021, 2.26 - 01/2022, 1.42 - 02/2023, 1.32 - 02/2024 Other skin disorders (1 source) Skin tag; Translations: [Other hypertrophic disorders of the skin] 09-01-2023 Episodic Other skin disorders (2 sources) Foot callus; Translations: [Corns and callosities] 12-13-2024 Episodic Paralysis (16 sources) Monoplegia of lower [...] 12-03-2023 Chronic Skin and subcutaneous tissue infections (9 sources) Cellulitis of leg, excluding foot; Translations: [...] 06-12-2022 Episodic Other aftercare (1 source) Other terminal system operator (current) drug therapy; Translations: [OTH LONG-TERM [...] Basophils/100 WBC (Bld) 0.0 % Low 0.2-2.0 [facility] Eosinophils/100 WBC Manual c nt (Bld)Ordered By: Froeign Torres on 12-03-2024 Eosinophils/100 WBC (Bld) 0.0 % Low 0.9-7.0 [facility] Erythrocyte distribution wid th Auto (RBC) [Ratio]Ordered By: Foreign Torres on 12-03-2024 Erythrocyte distribution width (RBC) [Ratio] 13.2 % 11.0-15.0 [facility] Glomerular filtration rate ( GFR) estimation in non- AmericanOrdered By: Foreign Torres on 12-03-2024 GFR/1.73 sq M.predicted among non-blacks MDRD (S/P/Bld) [Vol rate/Area] mL/min/{1.73_m2} >=60 mL/min/1.73 m 2 [facility] Hematocrit Auto (Bld) [Volum e fraction]Ordered By: Foreign Torres on 12-03-2024 Hematocrit (Bld) [Volume fraction] 37.8 % Low 42.0-54.0 [facility] Hemoglobin [Mass/volume] in BloodOrdered By: Foreign Torres on 12-03-2024 Hemoglobin (Bld) [Mass/Vol] 12.7 g/dL Low 14.0-18.0 [facility] Laboratory - Chemistry and C hemistry - challengeOrdered By: Foreign Torres on 12-03-2024 Bilirubin Ql (U) Negative NEGATIVE [facility] Glucose (U) [Mass/Vol] Negative NEGATIVE [facility] Ketones Ql (U) Negative NEGATIVE [facility] pH (U) 5.5 [pH] 5.0-9.0 [facility] Specific gravity (U) [Rel density] 1.025 1.005-1.025 [facility] Urobilinogen Qn (U) 0.2 {Andre'U}/dL 0.2-1.0 [facility] Calcium [Mass/Vol] 8.5 mg/dL 8.5-10.1 [facility] Chloride [Moles/Vol] 103 mmol/L 98-107 [facility] CO2 [Moles/Vol] 24.8 mmol/L 21.0-32.0 [facility] Creatinine [Mass/Vol] 0.96 mg/dL 0.70-1.30 [facility] GFR/1.73 sq M.predicted MDRD (S/P/Bld) [Vol rate/Area] mL/min/{1.73_m2} >=60 mL/min/1.73 m 2 [facility] Glucose [Mass/Vol] 139 mg/dL High 74-106 [facility] Potassium [Moles/Vol] 3.3 mmol/L Low 3.5-5.1 [facility] Sodium [Moles/Vol] 137 mmol/L 136-145 [facility] Urea nitrogen [Mass/Vol] 14.0 mg/dL 7.0-18.0 [facility] Urea nitrogen/Creatinine [Mass ratio] 14.6 mg/mg [facility] Laboratory - Hematology and Cell countsOrdered By: Foreign Torres on 12-03-2024 Band form neutrophils/100 WBC (Bld) 4.0 % 0-5 [facility] Lymphocytes/100 WBC (Bld) 3.0 % Low 20.5-60.0 [facility] Monocytes/100 WBC (Bld) 4.0 % 1.7-12.0 [facility] Laboratory - Microbiology an d Antimicrobial susceptibilityOrdered By: Foreign Torres on 12-03-2024 SARS-CoV-2 (COVID-19) RNA ELLIOT+probe Ql (Unsp spec) Negative NEGATIVE [facility] Comment on above: This test has not be en FDA cleared or approved, but has beenauthorized by the FDA under an Emergency Use Authorization(EUA) for use by authorized laboratories certified underCLIA that meet the requirements to perform moderate [...] on 12-03-2024 Appearance (U) SL CLOUDY CLEAR [facility] Color (U) YELLOW YELLOW [facility] Laboratory - UrinalysisOrder ed By: Foreign Torres on 12-03-2024 Leukocyte esterase Test strip Ql (U) Negative NEGATIVE [facility] Mucus Ql (Urine sed) NONE SEEN NONE SEEN [facility] Nitrite Ql (U) Negative NEGATIVE [facility] Protein Ql (U) Negative NEG/TRACE [facility] Leukocytes [#/volume] correc evelyne for nucleated erythrocytes in Blood by Automated counOrdered By: Foreign Torres on 12-03-2024 WBC corrected for nucl RBC Auto (Bld) [#/Vol] 9.5 10 3/uL 4.0-11.0 [facility] MCH Auto (RBC) [Entitic mass ]Ordered By: Foreign Torres on 12-03-2024 MCH (RBC) [Entitic mass] 32.4 pg 25.9-34.0 [facility] MCHC Auto (RBC) [Mass/Vol]Or dered By: Foreign Torres on 12-03-2024 MCHC (RBC) [Mass/Vol] 33.6 g/dL 29.9-35.2 [facility] MCV Auto (RBC) [Entitic vol] Ordered By: Foreign Torres on 12-03-2024 MCV (RBC) [Entitic vol] 96.4 fL High 80.0-94.0 [facility] No Panel InformationOrdered By: Foreign Torres on 12-03-2024 Urine Bacteria TRACE #/HPF Abnormal NONE SEEN [facility] Urine Culture Reflexed NO [facility] Urine Occult Blood TRACE-I NEGATIVE [facility] Urine Other Casts NONE SEEN #/LPF NONE SEEN [facility] Urine Other Crystals None Seen #/HPF None Seen [facility] Urine RBC 2-5 #/HPF Abnormal 0-2 [facility] Urine Squamous Epithelial Cells RARE #/LPF NONE/RARE [facility] Urine WBC 2-5 #/HPF Abnormal NONE SEEN [facility] Absolute Basophils (Manual) 0.00 10 3/uL 0.00-0.10 [facility] Band Neutrophils # (Manual) 0.4 10 3/uL High 0.0-0.3 [facility] Eosinophils # (Manual) 0.00 10 3/uL 0.00-0.70 [facility] Lymphocytes # (Manual) 0.28 10 3/uL Low 1.20-3.80 [facility] Monocytes # (Manual) 0.38 10 3/uL 0.30-0.80 [facility] Segmented Neutrophils # (Manual) 8.45 10 3/uL High 1.4-6.5 [facility] No Panel InformationOrdered By: Juanjo Clark on 12-03-2024 C-Reactive Protein, Quantitative 6.98 mg/dL High <=0.50 [facility] Platelet mean volume Auto (B ld) [Entitic vol]Ordered By: Foreign Torres on 12-03-2024 Platelet mean volume (Bld) [Entitic vol] 9.2 fL Low 9.5-13.5 [facility] Platelets Auto (Bld) [#/Vol] Ordered By: Foreign Torres on 12-03-2024 Platelets (Bld) [#/Vol] 213 10 3/uL 150-450 [facility] RBC Auto (Bld) [#/Vol]Ordere d By: Foreign Torres on 12-03-2024 RBC (Bld) [#/Vol] 3.92 10 6/uL Low 4.70-6.10 [facility] Segmented neutrophils/100 WB C Manual cnt (Bld)Ordered By: Foreign Torres on 12-03-2024 Segmented neutrophils/100 WBC (Bld) 89.0 % High 43.0-75.0 [facility] Serum or plasma anion gap de terminationOrdered By: Foreign Torres on 12-03-2024 Anion gap [Moles/Vol] 12.5 mmol/L [facility] Elvis 11-23-2024 CNPN Telephone (ENSSELMA) BANG SHARMA ([id number]) 1950 M Date Time Provider Department 11/23/24 GENEVA BUTLER ENSUMN During your visit today, we recorded the following information about you: Allergies As of Date: 11/23/2024 Noted Allergy Reaction PENICILLINS 04/07/2014 4 - Hives INSECTS EXTRACT 10/31/2020 14 - Other: See Comments Comments: Insect protein - eyes swell and blistering Date Reviewed: 11/14/2024 Reviewed by: Theresa Bynum, TIRSO - Fully Assessed Reason for Visit: Outside Lab Results [753] Prescriptions as of 11/23/2024 - acetaminophen (TYLENOL) 500 mg tablet Take 1 tablet by mouth every 4 hours as needed for pain. - calcium carbonate (TUMS) 500 mg chew Take 1 tablet by mouth every hour as needed (mouth or hand numbness or tingling). - drujbgw-acluroiif-gkai min D3 500 mg-5 mcg (200 unit) [...] Status:Closed by FERNANDO DIAZ on 11/23/24 Normal [facility] Laboratory - Chemistry and C hemistry - challengeOrdered By: Alvin Lo on 11-22-2024 Calcium [Mass/Vol] 9.0 mg/dL 8.5-10.1 [facility] No Panel InformationOrdered By: Outside Provider on 11-22-2024 Parathyroid Hormone (Intact) 26 pg/mL 15-65 [facility] Comment on above: Performed at: [address] [id number] Director: Shahab Rodney PhD, Phone: [phone] Elvis 11-18-2024 [facility] Telephone (JOLYNN) BANG SHARMA ([id number]) 1950 M Date Time Provider Department 11/18/24 [...] blistering Date Reviewed: 11/14/2024 Reviewed by: Theresa Bynum RN - Fully Assessed Reason for Visit: Post Op [174] Prescriptions as of 11/18/2024 - acetaminophen (TYLENOL) 500 mg tablet Take 1 tablet by mouth every 4 hours as needed for pain. - calcium carbonate (TUMS) 500 mg chew Take 1 tablet by mouth every hour as needed (mouth or hand numbness or tingling). - laiucdn-hftiaxgag-veqf min D3 500 mg-5 mcg (200 unit) [...] Status:Closed by LOIS WISE on 11/18/24 Normal [facility] Calcium SerPl-mCncOrdered By : Outside Provider on 11-15-2024 Calcium [Mass/Vol] 9.2 mg/dL 8.5-10.2 [facility] Comment on above: Order Comment: Juana ceron Type: BLOOD SPECIMEN Ordering Facility: [facility] Address: [address] [place] [address] Performed By: #### 1 7861-6 #### [facility] CLIA [id number] [address] [place] [address] [place] No Panel InformationOrdered By: Outside Provider on 11-15-2024 Parathyroid Hormone (Intact) 16 pg/mL [facility] PTH-Intact SerPl-mCncon 10-19 Parathyrin.intact [Mass/Vol] 16 pg/mL Normal [facility] Comment on above: Order Comment: Juana ceron Type: BLOOD SPECIMEN Ordering Facility: [facility] Address: [address] [place] [address] Performed By: #### 2 731-8 #### [facility] CLIA [id number] [address] [place] [address] [place] ANES POSTPROC EVALon 025 ANES POSTPROC EVAL HNO ID: [id number] Author: SONG JORDAN III, MD Service: Anesthesiology Author Type: Anesthesiologist Type: Anesthesia Postprocedure Evaluation Filed: 11/14/2024 12:51 Note Text: POST ANESTHESIA EVALUATION NOTE : 1950 Procedure Summary Date: 11/14/24 Room / Location: OR / MM OR Anesthesia Start: 722 Anesthesia Stop: 821 [...] November 14, 2024 TIME: 12:50 PM CSN: [id number] [facility] ANES PRE-OPon 11-14-2024 ANES PRE-OP HNO ID: [id number] Author: SONG JORDAN III, MD Service: Anesthesiology [...] (97.9 ?F) 11/14/24 0645 SpO2 98 % 11/14/24 0645 [...] November 14, 2024 TIME: 7:03 AM CSN: [id number] [facility] BRIEF OP NOTon 11-14-2024 BRIEF OP NOT HNO ID: [id number] Author: TIFFANY WESTBROOK MD Service: Endocrine Surgery Author Type: Physician Type: Brief Op Note Filed: 11/14/2024 08:20 Note Text: Brief Operative Note Patient Name: Bang Sharma LOG ID: [id number] Surgery/Procedure Date: 11/14/2024 Surgeon(s)/Procedurali st(s) and Upper Doubler(s): Surgeons and Role: * Geneva Butler MD [...] 11/14/2024 8:10 AM A : right upper [id number] Tissue Parathyroid Gland, Right SURGICAL PATHOLOGY Geneva Butler MD 11/14/2024 7:55 AM B : Left upper 12x9x3 Tissue Parathyroid Gland, Left SURGICAL PATHOLOGY Geneva Butler MD 11/14/2024 8:04 AM C : right upper [id number] Tissue Parathyroid Gland, Right SURGICAL PATHOLOGY Geneva [...] Westbrook MD DATE: 11/14/24 TIME: 8:19 AM [facility] ECG COMPLETEon 11-14-2024 ECG COMPLETE Ventricular Rate : 6 4 BPM Atrial Rate : 64 BPM P-R Interval : 164 ms QRS Duration : 192 ms Q-T Interval : 488 ms QTC Calculation(Bazett) : 503 ms Calculated P [place] : 73 degrees Calculated R [place] : -76 degrees Calculated T [place] : 19 degrees Normal sinus rhythm Right bundle branch block Left anterior fascicular block Bifascicular block Septal infarct , age undetermined Abnormal ECG No previous ECGs available Confirmed by KEON MAGAÑA MD ([id number]) on 11/14/2024 12:20:23 PM NAME : BANG SHARMA PID : [id number] : 1950 Gender : Male Race : ORD : [id number] Procedure Date : Nov 14 2024 11:35:23 Edit Date : Nov 14 2024 12:20:28 Diagnosis: Normal sinus rhythm Right bundle branch block Left anterior fascicular block Bifascicular block Septal infarct , age undetermined Abnormal ECG No previous ECGs available Confirmed by KEON MAGAÑA MD ([id number]) on 11/14/2024 12:20:23 PM Test Reason : Post-OP Location : 1 : [facility] 021 Overread By : KENO MAGAÑA MD Edited By : KEON MAGAÑA MD Referred By : , Acquired by : DUONG KUMAR [facility] INTRAOPERATIVE PTHon 025 INTRAOPERATIVE PTH 73 pg/mL High 15-65 [facility] Comment on above: Order Comment: Speci men Type: BLOOD SPECIMEN Ordering Facility: [facility] Address: [address] [place] [place] [id number] Performed By: #### R IPTH #### [facility] CLIA [id number] [address] [place], [place] [id number] [place] INTRAOPERATIVE PTH 405 pg/mL High 15-65 [facility] Comment on above: Order Comment: Speci men Type: BLOOD SPECIMEN Ordering Facility: [facility] Address: [address] [place] [address] Performed By: #### R IPTH #### [facility] CLIA [id number] [address] [place] [address] [place] OPERATIVE NOon 11-14-2024 OPERATIVE NO HNO ID: [id number] Author: GENEVA BUTLER MD Service: Endocrine Surgery Author Type: Physician Type: Operative Report Filed: 11/15/2024 06:54 Note Text: [facility] - Operative Report BANG SHARMA Juanjose : 1950 AGE: 74. 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 INCISION CLOSE/PROCEDURE END TIME: 8:16 a.m. PREOPERATIVE DIAGNOSIS: Primary hyperparathyroidism. POSTOPERATIVE DIAGNOSIS: Primary hyperparathyroidism. SURGEON: Geneva Butler MD AWARD CLERK: Tiffany Westbrook MD SURGERY/PROCEDURE: Parathyroid exploration with [...] Dr. Westbrook was asked to serve as respiratory therapist assistant. During the course of the dissection, the respiratory therapist assistant assisted with mobilization, vascular isolation, and division. ESTIMATED BLOOD LOSS: Minimal. DRAINS: None. SPECIMENS: Sent to Pathology: 1. Right upper parathyroid gland. 2. Left upper parathyroid gland. COUNTS: Sponge and needle counts correct. COMPLICATIONS: There were no intraoperative complications. Geneva (more content not included)... [facility] Pathology biopsy report Colby (Tiss)on 11-14-2024 AP DISCLAIMER [facility] Comment on above: Order Comment: Speci men Type: TISSUE SPECIMEN Ordering Facility: [facility] Address: [address] [place] [address] Result Comment: Lindsey cortes Developed Test (LDT) Disclaimer: Performance characteristics of immunohistochemical, immunofluorescent, and chromogenic in-situ hybridization tests have been determined by the performing laboratory within [facility]'s [facility] Pathology and Laboratory Medicine Department ([facility], [facility], [facility], [facility], [facility], [facility], or [facility]) in a manner consistent with CLIA [...] appropriately. Performed By: #### 6 6121-5 #### [facility] CLIA [id number] [address] [place] [address] LABORATORY CLIA [id number] [address] [place] [address] [place] CASE [facility] Comment on above: Order Comment: Speci men Type: TISSUE SPECIMEN Ordering Facility: [facility] Address: [address] [place] [address] Result Comment: Surg ica Pathology Report Case: [id number] Authorizing Provider: Geneva Butler MD Collected: 11/14/2024 07:55 AM Ordering Location: [facility] Received: 11/14/2024 08:04 AM Pathologist: Deysi Singh MD Intraop: Ella Johnson MD Specimens: A) - Parathyroid Gland, Right, right upper 08x30g28 B) - Parathyroid Gland, Left, Left upper 12x9x3 C) - Parathyroid Gland, Right, right upper [id number] Performed By: #### 6 6121-5 #### [facility] CLIA [id number] [address] [place] [address] LABORATORY CLIA [id number] [address] [place] [address] CLINICAL HISTORY Normal [facility] Comment on above: Order Comment: Speci men Type: TISSUE SPECIMEN Ordering Facility: [facility] Address: [address] [place] [address] Result Comment: Pre- op diagnosis: Hyperparathyroidism (HCC) [E21.3] Performed By: #### 6 6121-5 #### [facility] CLIA [id number] [address] [place] [address] LABORATORY CLIA [id number] [address] [place] [address] FINAL DI[facility] Comment on above: Order Comment: Speci men Type: TISSUE SPECIMEN Ordering Facility: [facility] Address: [address] [place] [address] Result Comment: A, C . Right upper parathyroid, excision: - Hypercellular parathyroid. B. Left upper parathyroid, excision: - Hypercellular parathyroid. SHANA November 16, 2024 at 1104 EDT Performed By: #### 6 6121-5 #### [facility] CLIA [id number] [address] [place] [address] LABORATORY CLIA [id number] [place] [address] STATES OF [facility] FINAL PERFORMING LAB [facility] Comment on above: Order Comment: Speci men Type: TISSUE SPECIMEN Ordering Facility: [facility] Address: [address] [place] [address] Result Comment: Diag nostic interpretation performed at: [facility], [address] [place] [address], [place] [address] CLIA# [id number] Roll Slicing Machine Tender: Herson Cuenca MD Performed By: #### 6 6121-5 #### [facility] CLIA [id number] [address] [place], [place] [address] [address] LABORATORY CLIA [id number] [address] [place] [address] STATES [facility] GROSS DESCRIPTION [facility] Comment on above: Order Comment: Speci men Type: TISSUE SPECIMEN Ordering Facility: [facility] Address: [address] [place] [address] Result Comment: A. P arathyroid Gland, Right FSA1: Received fresh for frozen section is one piece of brown soft tissue weighing 0.590 grams and measuring 2.2 x 0.9 x 0.6 cm. A retention representative section is submitted for frozen section in FSA1. Gross examination performed at [facility], [address] , [place] [address] CLIA# [id number] B. Parathyroid Gland, Left FSB1: Received fresh for frozen section is one piece of brown soft tissue weighing 0.245 grams and measuring 0.9 x 0.9 x 0.3 cm. The tissue is entirely submitted for frozen section in FSB1. Gross examination performed at [facility], [address] , [place] [address] CLIA# [id number] C. Parathyroid Gland, Right Labeled: ??? Right upper 31 x 18 x 10??? Received: In formalin Size: 2.8 x 1.5 x 0.9 cm Weight: 1640 mg Cassette code: Representatively in C1 (serially section) Gross examination performed at [facility], [address] [place] [address] MSL/MADIHA 11/14/24 12:25 PM Performed By: #### 6 6121-5 #### [facility] CLIA [id number] [address] [place] [address] [place] [facility] LABORATORY CLIA [id number] [place] [address] [place] INTRAOPERATIVE DIAGNOSIS [facility] Comment on above: Order Comment: Speci men Type: TISSUE SPECIMEN Ordering Facility: [facility] Address: [address] [place] [address] Result Comment: A. P arathyroid Gland, Right FSA1: Hypercellular parathyroid tissue (Ella Johnson MD) Intraoperative diagnosis performed at [facility], [address] [place] [address] CLIA# [id number] B. Parathyroid Gland, Left FSB1: Hypercellular parathyroid tissue (Ella Johnson MD) Intraoperative diagnosis performed at [facility], [address] [place], [place] [address] CLIA# [id number] Performed By: #### 6 6121-5 #### [facility] CLIA [id number] [address] [place] [address] [place] [facility] LABORATORY CLIA [id number] [address] [place], [place] [address] [place] Basic metabolic 2000 panelon 11-01-2024 Anion gap [Moles/Vol] 9 mmol/L Normal 8-15 [facility] Comment on above: Order Comment: Speci men Type: BLOOD SPECIMENOrdering Facility: [facility] Address: [address] [place] [address] Performed By: #### 2 4321-2 ####[facility] [id number] [place] [address] [place] Calcium [Mass/Vol] 11.0 mg/dL High 8.5-10.2 [facility] Comment on above: Order Comment: Speci men Type: BLOOD SPECIMENOrdering Facility: [facility] Address: [address] [place], [place] [address] Performed By: #### 2 4321-2 ####[facility] [id number] [place] [address] [place] Chloride [Moles/Vol] 105 mmol/L Normal 98-107 [facility] Comment on above: Order Comment: Speci men Type: BLOOD SPECIMENOrdering Facility: [facility] Address: [address] [place] [address] Performed By: #### 2 4321-2 ####[facility] [id number] [place] [address] [place] CO2 [Moles/Vol] 26 mmol/L Normal 22-30 [facility] Comment on above: Order Comment: Speci men Type: BLOOD SPECIMENOrdering Facility: [facility] Address: [address] [place] [address] Performed By: #### 2 4321-2 ####[facility] [id number] [place] [address] [place] Creatinine [Mass/Vol] 0.86 mg/dL Normal 0.73-1.22 [facility] Comment on above: Order Comment: Speci men Type: BLOOD SPECIMENOrdering Facility: [facility] Address: [address] [place] [address] Performed By: #### 2 4321-2 ####[facility] [id number] [place] [address] [place] eGFRcr SerPlBld CKD-EPI 2020 90 mL/min/1.73m??? Normal >=60 [facility] Comment on above: Order Comment: Speci men Type: BLOOD SPECIMENOrdering Facility: [facility] Address: [address] [place] [address] Result Comment: Lenora mated Glomerular Filtration Rate [...] actual GFR. Performed By: #### 2 4321-2 ####[facility] [id number] [address] [address] [place] Glucose [Mass/Vol] 108 mg/dL High 74-99 [facility] Comment on above: Order Comment: Juana ceron Type: BLOOD SPECIMENOrdering Facility: [facility] Address: [address] [place] [address] Result Comment: The [place] Diabetes Association (ADA) provides guidance for cutoff [...] Standards of Medical Care in Diabetes 2016, [place] Diabetes Association. Diabetes Care. 2016.39(Suppl 1). Performed By: #### 2 4321-2 ####[facility] [id number] [address] [address] [place] Potassium [Moles/Vol] 4.5 mmol/L Normal 3.7-5.1 [facility] Comment on above: Order Comment: Juana ceron Type: BLOOD SPECIMENOrdering Facility: [facility] Address: [address] [place] [address] Performed By: #### 2 4321-2 ####[facility]IA [id number] [facility] [address] [address] [place] Sodium [Moles/Vol] 140 mmol/L Normal 136-144 [facility] Comment on above: Order Comment: Speci men Type: BLOOD SPECIMENOrdering Facility: [facility] Address: [address] [place] [address] Performed By: #### 2 4321-2 ####[facility]IA [id number] [place] [address] [place] Urea nitrogen [Mass/Vol] 18 mg/dL Normal 9-24 [facility] Comment on above: Order Comment: Speci men Type: BLOOD SPECIMENOrdering Facility: [facility] Address: [address] [place] [address] Performed By: #### 2 4321-2 ####[facility]IA [id number] [place] [address] [place] Basophils Auto (Bld) [#/Vol] Ordered By: Geneva Butler on 11-01-2024 Basophils (Bld) [#/Vol] 0.05 10*3/uL <0.11 [facility] Basophils/100 WBC Auto (Bld) Ordered By: Geneva Butler on 11-01-2024 Basophils/100 WBC (Bld) 0.9 % F [facility] Blood manual differential co mment interpretation narrativeOrdered By: Geneva Butler on 11-01-2024 Manual differential comment Colby (Bld) [Interp] Auto [facility] CBC W Auto Differential pane l (Bld)on 11-01-2024 Basophils (Bld) [#/Vol] 0.05 10*3/uL Normal <0.11 [facility] Comment on above: Order Comment: Speci men Type: BLOOD SPECIMENOrdering Facility: [facility] Address: [address] [place] [address] Performed By: #### 5 7021-8 ####[facility]IA [id number] [place] [address] [place] Basophils/100 WBC (Bld) 0.9 % Normal [facility] Comment on above: Order Comment: Speci men Type: BLOOD SPECIMENOrdering Facility: [facility] Address: [address] [place] [address] Performed By: #### 5 7021-8 ####[facility]IA [id number] [address], [place] [address] [place] Differential cell count method Nom (Bld) Auto Normal [facility] Comment on above: Order Comment: Speci men Type: BLOOD SPECIMENOrdering Facility: [facility] Address: [address] [place] [address] Performed By: #### 5 7021-8 ####[facility]IA [id number] [address], [place] [address] [place] Eosinophils (Bld) [#/Vol] 0.11 10*3/uL Normal <0.46 [facility] Comment on above: Order Comment: Speci men Type: BLOOD SPECIMENOrdering Facility: [facility] Address: [address] [place] [address] Performed By: #### 5 7021-8 ####[facility]IA [id number] [address], [place] [address] [place] Eosinophils/100 WBC (Bld) 1.9 % Normal [facility] Comment on above: Order Comment: Speci men Type: BLOOD SPECIMENOrdering Facility: [facility] Address: [address] [place] [address] Performed By: #### 5 7021-8 ####[facility]CLIA [id number] [address], [facility] [place] Erythrocyte distribution width (RBC) [Ratio] 13.6 % Normal 11.5-15.0 [facility] Comment on above: Order Comment: Speci men Type: BLOOD SPECIMENOrdering Facility: [facility] Address: [address] [place] [address] Performed By: #### 5 7021-8 ####[facility]IA [id number] [place] [id number] [place] Hematocrit (Bld) [Volume fraction] 44.3 % Normal 39.0-51.0 [facility] Comment on above: Order Comment: Speci men Type: BLOOD SPECIMENOrdering Facility: [facility] Address: [address] [place] [address] Performed By: #### 5 7021-8 ####[facility]CLIA [id number] [place] [address] [place] Hemoglobin (Bld) [Mass/Vol] 14.3 g/dL Normal 13.0-17.0 [facility] Comment on above: Order Comment: Speci men Type: BLOOD SPECIMENOrdering Facility: [facility] Address: [address] [place] [address] Performed By: #### 5 7021-8 ####[facility]CLIA [id number] [place] [address] [place] Immature granulocytes (Bld) [#/Vol] 10*3/uL Normal <0.10 [facility] Comment on above: Order Comment: Speci men Type: BLOOD SPECIMENOrdering Facility: [facility] Address: [address] [place] [address] Performed By: #### 5 7021-8 ####[facility]CLIA [id number] [place] [address] [place] Immature granulocytes/100 WBC (Bld) 0.3 % Normal [facility] Comment on above: Order Comment: Speci men Type: BLOOD SPECIMENOrdering Facility: [facility] Address: [address] [place] [address] Performed By: #### 5 7021-8 ####[facility]CLIA [id number] [place] [address] [place] Lymphocytes (Bld) [#/Vol] 1.48 10*3/uL Normal 1.00-4.00 [facility] Comment on above: Order Comment: Speci men Type: BLOOD SPECIMENOrdering Facility: [facility] Address: [address] [place] [address] Performed By: #### 5 7021-8 ####[facility]CLIA [id number] [place] [address] [place] Lymphocytes/100 WBC (Bld) 25.3 % Normal [facility] Comment on above: Order Comment: Speci men Type: BLOOD SPECIMENOrdering Facility: [facility] Address: [address] [place] [address] Performed By: #### 5 7021-8 ####[facility]IA [id number] [place] [address] [place] MCH (RBC) [Entitic mass] 31.2 pg Normal 26.0-34.0 [facility] Comment on above: Order Comment: Speci men Type: BLOOD SPECIMENOrdering Facility: [facility] Address: [address] [place] [address] Performed By: #### 5 7021-8 ####[facility]IA [id number] [place] [address] [place] MCHC (RBC) [Mass/Vol] 32.3 g/dL Normal 30.5-36.0 [facility] Comment on above: Order Comment: Speci men Type: BLOOD SPECIMENOrdering Facility: [facility] Address: [address] [place] [address] Performed By: #### 5 7021-8 ####[facility] LABCLIA [id number] [place] [address] [place] MCV (RBC) [Entitic vol] 96.7 fL Normal 80.0-100.0 [facility] Comment on above: Order Comment: Speci men Type: BLOOD SPECIMENOrdering Facility: [facility] Address: [address] [place] [address] Performed By: #### 5 7021-8 ####[facility]CLIA [id number] [facility] [place] [id number] [place] Monocytes (Bld) [#/Vol] 0.70 10*3/uL Normal <0.87 [facility] Comment on above: Order Comment: Speci men Type: BLOOD SPECIMENOrdering Facility: [facility] Address: [address] [place] [address] Performed By: #### 5 7021-8 ####[facility]CLIA [id number] [place] [address] [place] Monocytes/100 WBC (Bld) 11.9 % Normal [facility] Comment on above: Order Comment: Speci men Type: BLOOD SPECIMENOrdering Facility: [facility] Address: [address] [place] [address] Performed By: #### 5 7021-8 ####[facility]CLIA [id number] [place] [address] [place] Neutrophils (Bld) [#/Vol] 3.50 10*3/uL Normal 1.45-7.50 [facility] Comment on above: Order Comment: Speci men Type: BLOOD SPECIMENOrdering Facility: [facility] Address: [address] [place] [address] Performed By: #### 5 7021-8 ####[facility]CLIA [id number] [place] [address] [place] Neutrophils/100 WBC (Bld) 59.7 % Normal [facility] Comment on above: Order Comment: Speci men Type: BLOOD SPECIMENOrdering Facility: [facility] Address: [address] [place] [address] Performed By: #### 5 7021-8 ####[facility]CLIA [id number] [place] [id number] [place] Nucleated RBC (Bld) [#/Vol] 10*3/uL Normal <0.01 [facility] Comment on above: Order Comment: Speci men Type: BLOOD SPECIMENOrdering Facility: [facility] Address: [address] [place] [address] Performed By: #### 5 7021-8 ####[facility]IA [id number] [place] [address] [place] Nucleated RBC/100 WBC (Bld) [Ratio] 0.0 /100 WBC Normal [facility] Comment on above: Order Comment: Speci men Type: BLOOD SPECIMENOrdering Facility: [facility] Address: [address] [place] [address] Performed By: #### 5 7021-8 ####[facility]IA [id number] [place] [address] [place] Platelet mean volume (Bld) [Entitic vol] 9.1 fL Normal 9.0-12.7 [facility] Comment on above: Order Comment: Speci men Type: BLOOD SPECIMENOrdering Facility: [facility] Address: [address] [place] [address] Performed By: #### 5 7021-8 ####[facility]IA [id number] [place] [address] [place] Platelets (Bld) [#/Vol] 307 10*3/uL Normal 150-400 [facility] Comment on above: Order Comment: Speci men Type: BLOOD SPECIMENOrdering Facility: [facility] Address: [address] [place] [address] Performed By: #### 5 7021-8 ####[facility] [id number] [place] [id number] [place] RBC (Bld) [#/Vol] 4.58 10*6/uL Normal 4.20-6.00 [facility] Comment on above: Order Comment: Speci men Type: BLOOD SPECIMENOrdering Facility: [facility] Address: [address] [place] [address] Performed By: #### 5 7021-8 ####[facility] [id number] [place] [address] [place] WBC (Bld) [#/Vol] 5.86 10*3/uL Normal 3.70-11.00 [facility] Comment on above: Order Comment: Speci men Type: BLOOD SPECIMENOrdering Facility: [facility] Address: [address] [place] [address] Performed By: #### 5 7021-8 ####[facility] [id number] [place] [address] [place] Calcium.ionized [Moles/Vol]o n 11-01-2024 Calcium.ionized (Bld) [Mass/Vol] 1.45 mmol/L High 1.08-1.30 [facility] Comment on above: Order Comment: Speci men Type: BLOOD SPECIMENOrdering Facility: [facility] Address: [address] [place] [address] Performed By: #### 1 995-0 ####[facility] [id number] [place] [address] [place] [facility] Calcium.ionized adjusted to pH 7.4 (Bld) [Moles/Vol] 1.44 mmol/L High 1.08-1.30 [facility] Comment on above: Order Comment: Speci men Type: BLOOD SPECIMENOrdering Facility: [facility] Address: [address] [place] [address] Performed By: #### 1 995-0 ####[facility] [id number] [place] [id number] [place] ECG COMPLETEon 11-01-2024 ECG COMPLETE Ventricular Rate : 5 6 BPM Atrial Rate : 56 BPM P-R Interval : 174 ms QRS Duration : 192 ms Q-T Interval : 508 ms QTC Calculation(Bazett) : 490 ms Calculated P [place] : 85 degrees Calculated R [place] : -69 degrees Calculated T [place] : 33 degrees SINUS BRADYCARDIA LEFT AXIS DEVIATION COMPLETE RIGHT BUNDLE BRANCH BLOCK ABNORMAL ECG Confirmed by QUATROMONI MD, ENRIQUE ([id number]) on 12/08/2024 9:49:14 AM NAME : BANG SHARMA PID : [id number] : 1950 Gender : Male Race : ORD : [id number] Procedure Date : Nov 01 2024 11:55:05 Edit Date : Dec 08 2024 09:49:21 Diagnosis: SINUS BRADYCARDIA LEFT AXIS DEVIATION COMPLETE RIGHT BUNDLE BRANCH BLOCK ABNORMAL ECG Confirmed by ENRIQUE ROSALES MD ([id number]) on 12/08/2024 9:49:14 AM Test Reason : Location : 314 : J14 J14 Overread By : ENRIQUE ROSALES MD Edited By : ENRIQUE ROSALES MD Referred By : GENEVA BUTLER Acquired by : JENIFFER MCCAULEY [facility] Eosinophils/100 WBC Auto (Bl d)Ordered By: Geneva Butler on 11-01-2024 Eosinophils/100 WBC (Bld) 1.9 % [facility] Erythrocyte distribution wid th Auto (RBC) [Ratio]Ordered By: Geneva Butler on 11-01-2024 Erythrocyte distribution width (RBC) [Ratio] 13.6 % 11.5-15.0 [facility] Glomerular filtration rate [ Volume Rate/Area] in Serum, Plasma or Blood by CreatinineOrdered By: Geneva Butler on 11-01-2024 Glomerular filtration rate [Volume Rate/Area] in Serum, Plasma or Blood by Creatinine 90 mL/min/1.73m??? >=60 [facility] Comment on above: Estimated Glomerular [...] eGFR may not accurately reflect actual GFR. HISTORY PHYSICALon HISTORY PHYSICAL HNO ID: [id number] Author: LUANA BOSS PA-C Service: ? Author Type: Physician Upper Doubler Type: H&P Filed: 11/02/2024 11:04 Note Text: [...] physical activity. STOP-Bang Score: STOP-Bang Score: (+REMY) [id number]-MPQs Score: Age: >=75 Sex: male Hypertension history: Yes [id number] Score: ARISCAT Score: Age: 51-80 Preoperative SpO2: [...] is scheduled for procedure on 11/14/2024 at [facility]. REVIEW OF SYSTEMS: General: No weight loss, malaise or fevers. Neurological: No history of TIA's, stroke, LOAN DOCUMENTATION SPECIALIST tumor, impaired sensorium, hemiplegia, paraplegia or quadraplegia. [...] taking an (more content not included)... Normal [facility] Hematocrit Auto (Bld) [Volum e fraction]Ordered By: Geneva Butler on 11-01-2024 Hematocrit (Bld) [Volume fraction] 44.3 % 39.0-51.0 [facility] Hemoglobin [Mass/volume] in BloodOrdered By: Geneva Butler on 11-01-2024 Hemoglobin (Bld) [Mass/Vol] 14.3 g/dL 13.0-17.0 [facility] Laboratory - Chemistry and C hemistry - challengeOrdered By: Geneva Butler on 11-01-2024 Calcium [Mass/Vol] 11.0 mg/dL High 8.5-10.2 [facility] Chloride [Moles/Vol] 105 mmol/L 98-107 [facility] CO2 [Moles/Vol] 26 mmol/L 22-30 [facility] Creatinine [Mass/Vol] 0.86 mg/dL 0.73-1.22 [facility] Glucose [Mass/Vol] 108 mg/dL High 74-99 [facility] Comment on above: The [place] Diab[employer] s Association (ADA) provides guidance for [...] Standards of Medical Care in Diabetes 2016, [place] [employer]. Diabetes Care. 2016.39(Suppl 1). Potassium [Moles/Vol] 4.5 mmol/L 3.7-5.1 [facility] Sodium [Moles/Vol] 140 mmol/L 136-144 [facility] Urea nitrogen [Mass/Vol] 18 mg/dL 9-24 [facility] Laboratory - Hematology and Cell countsOrdered By: Geneva Butler on 11-01-2024 Eosinophils (Bld) [#/Vol] 0.11 10*3/uL <0.46 [facility] Immature granulocytes/100 WBC (Bld) 0.3 % [facility] Leukocytes [#/volume] correc evelyne for nucleated erythrocytes in Blood by Automated counOrdered By: Geneva Butler on 11-01-2024 WBC corrected for nucl RBC Auto (Bld) [#/Vol] 5.86 k/uL 3.70-11.00 [facility] Lymphocytes Auto (Bld) [#/Vo l]Ordered By: Geneva Butler on 11-01-2024 Lymphocytes (Bld) [#/Vol] 1.48 10*3/uL 1.00-4.00 [facility] Lymphocytes/100 WBC Auto (Bl d)Ordered By: Geneva Butler on 11-01-2024 Lymphocytes/100 WBC (Bld) 25.3 % [facility] MCH Auto (RBC) [Entitic mass ]Ordered By: Geneva Butler on 11-01-2024 MCH (RBC) [Entitic mass] 31.2 pg 26.0-34.0 [facility] MCHC Auto (RBC) [Mass/Vol]Or dered By: Geneva Butler on 11-01-2024 MCHC (RBC) [Mass/Vol] 32.3 g/dL 30.5-36.0 [facility] MCV Auto (RBC) [Entitic vol] Ordered By: Geneva Butler on 11-01-2024 MCV (RBC) [Entitic vol] 96.7 fL 80.0-100.0 [facility] Monocytes Auto (Bld) [#/Vol] Ordered By: Geneva Butler on 11-01-2024 Monocytes (Bld) [#/Vol] 0.70 10*3/uL <0.87 [facility] Monocytes/100 WBC Auto (Bld) Ordered By: Geneva Butler on 11-01-2024 Monocytes/100 WBC (Bld) 11.9 % [facility] NM PARATHYROID W SPECT/CTon 11-01-2024 NM PARATHYROID [...] be communicated with the ordering provider via [employer] staff message or phone message by [employer] within 2 business days of report finalization. --END OF FINDING-- [employer] Operator: BARBARA Transcribe Date/Time: Nov 02 2024 7:32A Dictated by : BHAVIK RIVERA DO This examination was interpreted and the report reviewed and electronically signed by: BHAVIK RIVERA DO on Nov 02 2024 7:42AM EST [id number] ACTIONABLE Invalid Interpretation Code [facility] Neutrophils Auto (Bld) [#/Vo l]Ordered By: Geneva Butler on 11-01-2024 Neutrophils (Bld) [#/Vol] 3.50 10*3/uL 1.45-7.50 [facility] Neutrophils/100 WBC Auto (Bl d)Ordered By: Geneva Butler on 11-01-2024 Neutrophils/100 WBC (Bld) 59.7 % [facility] No Panel InformationOrdered By: Geneva Butler on 11-01-2024 Immature Granulocyte # (Auto) <0.03 k/uL <0.10 [facility] Ionized Calcium (pH Adjusted) 1.44 mmol/L High 1.08-1.30 [facility] Nucleated RBC Auto (Bld) [#/ Vol]Ordered By: Geneva Butler on 11-01-2024 Nucleated RBC (Bld) [#/Vol] 10*3/uL <0.01 [facility] Nucleated erythrocytes [Pres ence] in Blood by Automated countOrdered By: Geneva Butler on 11-01-2024 Nucleated RBC Auto Ql (Bld) 0.0 /100{WBC} [facility] Platelet mean volume Auto (B ld) [Entitic vol]Ordered By: Geneva Butler on 11-01-2024 Platelet mean volume (Bld) [Entitic vol] 9.1 fL 9.0-12.7 [facility] Platelets Auto (Bld) [#/Vol] Ordered By: Geneva Butler on 11-01-2024 Platelets (Bld) [#/Vol] 307 10*3/uL 150-400 [facility] RBC Auto (Bld) [#/Vol]Ordere d By: eGneva Butler on 11-01-2024 RBC (Bld) [#/Vol] 4.58 10*6/uL 4.20-6.00 [facility] Serum ionized calcium measur ement using ion specific electrode (mass/volume)Ordered By: Geneva Butler on 11-01-2024 Calcium.ionized ISE [Mass/Vol] 1.45 mmol/L High 1.08-1.30 [facility] Serum or plasma anion gap de terminationOrdered By: Geneva Butler on 11-01-2024 Anion gap [Moles/Vol] 9 mmol/L 12-02 [facility] Office Visiton 10-25-2024 Follow-up visit [id number] Lucinda Sharma 1950 M Date Provider Department Center 10/25/2024 ALPESH MARQUEZ ARAM Panda Family History Problem Relation Age of Onset Coronary artery disease Other Hypertension Other Family Status - Relation Status Age at Mother Father Other Level of Service:70791 HI OFFICE/OUTPATIENT ESTABLISHED LOW MDM 20 MIN Normal [facility] CALCIUM, 24 HR URINEon 10-19 Calcium (24H U) [Mass/Time] 357.0 mg/24 hr High 100.0-300.0 [facility] Comment on above: Order Comment: Speci men Type: URINE SPECIMENOrdering Facility: [facility] Address: [address] [place] [address] Performed By: #### U CALCD ####[facility] LABIA [id number] [address] LABCLIA [id number] [place] [address] PERIOD (HRS) 24 hr Normal [facility] Comment on above: Order Comment: Speci men Type: URINE SPECIMENOrdering Facility: [facility] Address: [address] [place] [address] Performed By: #### U CALCD ####[facility] LABIA [id number] [address] [address] [facility] LABCLIA [id number] [place] [address] Specimen volume (24H U) 1.75 L Normal [facility] Comment on above: Order Comment: Speci men Type: URINE SPECIMENOrdering Facility: [facility] Address: [address] [place] [address] Performed By: #### U CALCD ####[facility] LABCLIA [id number] [place] [id number] [facility] LABCLIA [id number] [place] [address] CREATININE, 24 HOUR URINEon 10-19-2024 Creatinine (24H U) [Mass/Time] 2.006 g/24 hr High 1.000-2.000 [facility] Comment on above: Order Comment: Speci men Type: URINE SPECIMENOrdering Facility: [facility] Address: [address] [place] [address] Performed By: #### U CRD ####[facility] LABCLIA [id number] [address] LABCLIA [id number] [place] [address] PERIOD (HRS) 24 hr Normal [facility] Comment on above: Order Comment: Speci men Type: URINE SPECIMENOrdering Facility: [facility] Address: [address] [place] [address] Performed By: #### U CRD ####[facility] LABCLIA [id number] [place] [id number] [facility] LABCLIA [id number] [place] [address] Specimen volume (24H U) 1.75 L Normal [facility] Comment on above: Order Comment: Speci men Type: URINE SPECIMENOrdering Facility: [facility] Address: [address] [place] [address] Performed By: #### U CRD ####[facility] LABCLIA [id number] [address] [place] [address] [facility] LABCLIA [id number] [place] [address] Elvis 10-04-2024 JULIETHN Telephone (ENSUMN) ZACHARYBANG ([id number]) 1950 M Date Time Provider Department 10/04/24 GENEAV BUTLER During your visit today, we recorded the following information about you: Dora Larkin 10/04/2024 6:50 PM Signed Are you an Endocrinology [place] located at [facility] [place]? Yes Patient Name: Bang Sharma Age: [age] year old Requestor: Dora Larkin Reason for Exam: [place] Parathyroid w SPECT/CT Orders needed prior to scheduling: [place] PARATHYROID W SPECT/CT [id number] Are all orders above present: Yes When will patient be scheduled: Day 1: Week of 10/31 No Doses on Thursday Route to [place] Schedulers @ [facility] Scheduling Hyperthyroidism or Nodule (100-300 microCi I-123 [...] Status:Closed by DORA LARKIN on 10/10/24 Normal [facility] CNOVon 09-13-2024 CNOV Office Visit (ENSUMN ) BANG SHARMA ([id number]) 1950 M Date Time Provider Department 09/13/24 12:20 PM GENEVA BUTLER During your visit today, we recorded the following information about you: Pulse Blood pressure Weight Height 75/minute 124/63 123.2 kg 1.892 m Arlene Florian MA 09/13/2024 11:05 AM Signed Thank you for choosing the [facility] Department of Endocrinology, Diabetes and Metabolism. Did you know that you need to call 48 hours in advance of your scheduled visit, if you are unable to make your appointment? The [facility]ocrinology [facility] Metabolism [place] thanks you for your commitment, because patients not showing to their appointment results in a lost opportunity for patients to receive [facility] health care at the [facility]. To Cancel an appointment, please choose one of the following: - Call the Appointment Call Center at [phone] - From [place] [facility], Go to Appointments - Cancel Appts If cancelling, consider your need to reschedule to prevent further delays in your care. To Schedule an appointment, please choose one of the following: - Call the Appointment Call Center at [phone] - From [place] [facility], Go to Appointments - Request an Appt Geneva Butler MD 09/13/2024 12:00 PM Signed The [facility] Endocrinology and Metabolism [place] Department of Endocrine Surgery Geneva Butler M.D. [address] [place] [address] Mr. Bang Sharma was seen in the [...] GENEVA BUTLER M.D. CC: Nathaly Sargent D.O. Referring Provider: HERBER DONALD [[id number]] Allergies As of Date: 09/13/2024 Noted Allergy Reaction PENICILLINS 04/07/2014 4 - Hives INSECTS EXTRACT 10/31/2020 14 - Other: See Comments Comments: Insect protein - eyes swell and blistering Date Reviewed: 09/13/2024 Reviewed by: Arlene Florian MA - Fully Assessed Reason for Visit: Consult [173] Thyroid Problem [110] Hyperparathyroidism [1465] Primary Visit Diagnosis:Hyperparathy roidism (HCC) [E21.3 (more content not included)... Normal [facility] Orders Onlyon 08-26-2024 Orders Only [id number] Lucinda Sharma E 1950 M Date Provider Department Center 08/26/2024 241-ALPESH DAVIS [facility] Family History Problem Relation Age of Onset Coronary artery disease Other Hypertension Other Family Status - Relation Status Age at Other Normal [facility] Basophils Auto (Bld) [#/Vol] on 08-25-2024 Basophils (Bld) [#/Vol] Automated basoph il count 0.0-0.1 [facility] Basophils/100 WBC Auto (Bld) on 08-25-2024 Basophils/100 WBC (Bld) Automated basophil % Low 0. 2-2.0 [facility] Eosinophils/100 WBC Auto (Bl d)on 08-25-2024 Eosinophils/100 WBC (Bld) Automated eosinophil % Low 0.9-7.0 [facility] Erythrocyte distribution wid th Auto (RBC) [Ratio]on 08-25-2024 Erythrocyte distribution width (RBC) [Ratio] Erythrocyte distribution width [Ratio] by Automated count 11.0-15.0 [facility] Estimated glomerular filtrat ion rate (GFR) non- Americanon 08-25-2024 GFR/1.73 sq M.predicted among non-blacks MDRD (S/P/Bld) [Vol rate/Area] Estimated glomerular filtration rate (GFR) non- >=60 mL/min/1.73 m 2 [facility] Globulin Calc (S) [Mass/Vol] on 08-25-2024 Globulin (S) [Mass/Vol] Serum globulin measurement by calculation (mass/volume) [facility] Hematocrit Auto (Bld) [Volum e fraction]on 08-25-2024 Hematocrit (Bld) [Volume fraction] Hematocrit [Volume Fraction] of Blood by Automated count Low 42.0-54.0 [facility] Hemoglobin [Mass/volume] in Bloodon 08-25-2024 Hemoglobin (Bld) [Mass/Vol] Hemoglobin [Mass/volume] in Blood Low 14.0-18.0 [facility] Laboratory - Chemistry and C hemistry - challengeon 08-25-2024 Albumin [Mass/Vol] 2.8 g/dL Low 3.4-5.0 [facility] ALP [Catalytic activity/Vol] 45 U/L Low 46-116 [facility] ALT [Catalytic activity/Vol] 31 U/L 16-63 [facility] AST [Catalytic activity/Vol] 23 U/L 15-37 [facility] Bilirubin [Mass/Vol] 0.3 mg/dL 0.2-1.0 [facility] Calcium [Mass/Vol] 9.6 mg/dL 8.5-10.1 [facility] Chloride [Moles/Vol] 101 mmol/L 98-107 [facility] CO2 [Moles/Vol] 26.0 mmol/L 21.0-32.0 [facility] Creatinine [Mass/Vol] 0.90 mg/dL 0.70-1.30 [facility] GFR/1.73 sq M.predicted MDRD (S/P/Bld) [Vol rate/Area] mL/min/{1.73_m2} >=60 mL/min/1.73 m 2 [facility] Glucose [Mass/Vol] 93 mg/dL 74-106 [facility] Potassium [Moles/Vol] 3.5 mmol/L 3.5-5.1 [facility] Protein [Mass/Vol] 6.1 g/dL Low 6.4-8.2 [facility] Sodium [Moles/Vol] 133 mmol/L Low 136-145 [facility] Urea nitrogen [Mass/Vol] 18.0 mg/dL 7.0-18.0 [facility] Urea nitrogen/Creatinine [Mass ratio] 20.0 mg/mg [facility] Laboratory - Hematology and Cell countson 08-25-2024 Immature granulocytes/100 WBC (Bld) 0.4 % 0.0-0.5 [facility] Leukocytes [#/volume] correc evelyne for nucleated erythrocytes in Blood by Automated counon 08-25-2024 WBC corrected for nucl RBC Auto (Bld) [#/Vol] Leukocytes [#/volume] corrected for nucleated erythrocytes in Blood by Automated coun 4.0-11.0 [facility] Lymphocytes Auto (Bld) [#/Vo l]on 08-25-2024 Lymphocytes (Bld) [#/Vol] Lymphocytes [#/volume] in Blood by Automated count 1.2-3.8 [facility] Lymphocytes/100 WBC Auto (Bl d)on 08-25-2024 Lymphocytes/100 WBC (Bld) Lymphocytes/100 leukocytes in Blood by Automated count Low 20.5-60.0 [facility] MCH Auto (RBC) [Entitic mass ]on 08-25-2024 MCH (RBC) [Entitic mass] MCH [Entitic ma ss] by Automated count 25.9-34.0 [facility] MCHC Auto (RBC) [Mass/Vol]on 08-25-2024 MCHC (RBC) [Mass/Vol] MCHC [Mass/volume] by Automated count 29.9-35.2 [facility] MCV Auto (RBC) [Entitic vol] on 08-25-2024 MCV (RBC) [Entitic vol] MCV [Entitic vol ume] by Automated count High 80.0-94.0 [facility] Monocytes Auto (Bld) [#/Vol] on 08-25-2024 Monocytes (Bld) [#/Vol] Automated blood monocyte count High 0.3-0.8 [facility] Monocytes/100 WBC Auto (Bld) on 08-25-2024 Monocytes/100 WBC (Bld) Automated monocyte % High 1. 7-12.0 [facility] Neutrophils Auto (Bld) [#/Vo l]on 08-25-2024 Neutrophils (Bld) [#/Vol] Neutrophils [#/volume] in Blood by Automated count 1.4-6.5 [facility] Neutrophils/100 WBC Auto (Bl d)on 08-25-2024 Neutrophils/100 WBC (Bld) Automated neutrophil % 43.0-75.0 [facility] No Panel Informationon 08-25 Eosinophils # (Auto) 0.0 10 3/uL 0.0-0.7 [facility] Immature Granulocyte # (Auto) 0.03 10 3/uL 0.00-0.03 [facility] Platelet mean volume Auto (B ld) [Entitic vol]on 08-25-2024 Platelet mean volume (Bld) [Entitic vol] Platelet mean volume [Entitic volume] in Blood by Automated count 9.5-13.5 [facility] Platelets Auto (Bld) [#/Vol] on 08-25-2024 Platelets (Bld) [#/Vol] Platelets [#/vol ume] in Blood by Automated count 150-450 [facility] RBC Auto (Bld) [#/Vol]on RBC (Bld) [#/Vol] Erythrocytes [#/volume] in Blood by Automated count Low 4.70-6.10 [facility] Serum or plasma albumin/glob ulin mass ratioon 08-25-2024 Albumin/Globulin [Mass ratio] Serum or plasma albumin/globulin mass ratio [facility] Serum or plasma anion gap de terminationon 08-25-2024 Anion gap [Moles/Vol] Serum or plasma an ion gap determination [facility] Basophils Auto (Bld) [#/Vol] on 08-24-2024 Basophils (Bld) [#/Vol] Automated basoph il count 0.0-0.1 [facility] Basophils/100 WBC Auto (Bld) on 08-24-2024 Basophils/100 WBC (Bld) Automated basophil % Low 0. 2-2.0 [facility] Eosinophils/100 WBC Auto (Bl d)on 08-24-2024 Eosinophils/100 WBC (Bld) Automated eosinophil % Low 0.9-7.0 [facility] Erythrocyte distribution wid th Auto (RBC) [Ratio]on 08-24-2024 Erythrocyte distribution width (RBC) [Ratio] Erythrocyte distribution width [Ratio] by Automated count 11.0-15.0 [facility] Estimated glomerular filtrat ion rate (GFR) non- Americanon 08-24-2024 GFR/1.73 sq M.predicted among non-blacks MDRD (S/P/Bld) [Vol rate/Area] Estimated glomerular filtration rate (GFR) non- >=60 mL/min/1.73 m 2 [facility] Globulin Calc (S) [Mass/Vol] on 08-24-2024 Globulin (S) [Mass/Vol] Serum globulin measurement by calculation (mass/volume) [facility] Hematocrit Auto (Bld) [Volum e fraction]on 08-24-2024 Hematocrit (Bld) [Volume fraction] Hematocrit [Volume Fraction] of Blood by Automated count Low 42.0-54.0 [facility] Hemoglobin [Mass/volume] in Bloodon 08-24-2024 Hemoglobin (Bld) [Mass/Vol] Hemoglobin [Mass/volume] in Blood Low 14.0-18.0 [facility] Laboratory - Chemistry and C hemistry - challengeon 08-24-2024 Albumin [Mass/Vol] 3.1 g/dL Low 3.4-5.0 [facility] ALP [Catalytic activity/Vol] 50 U/L 46-116 [facility] ALT [Catalytic activity/Vol] 36 U/L 16-63 [facility] AST [Catalytic activity/Vol] 23 U/L 15-37 [facility] Bilirubin [Mass/Vol] 0.6 mg/dL 0.2-1.0 [facility] Calcium [Mass/Vol] 9.5 mg/dL 8.5-10.1 [facility] Chloride [Moles/Vol] 98 mmol/L 98-107 [facility] CO2 [Moles/Vol] 25.1 mmol/L 21.0-32.0 [facility] Creatinine [Mass/Vol] 1.09 mg/dL 0.70-1.30 [facility] GFR/1.73 sq M.predicted MDRD (S/P/Bld) [Vol rate/Area] mL/min/{1.73_m2} >=60 mL/min/1.73 m 2 [facility] Glucose [Mass/Vol] 103 mg/dL 74-106 [facility] Natriuretic peptide B (Bld) [Mass/Vol] 1396.0 pg/mL Critically high <=900.0 [facility] Comment on above: RESULTS CALLED TO Potassium [Moles/Vol] 3.3 mmol/L Low 3.5-5.1 [facility] Protein [Mass/Vol] 6.5 g/dL 6.4-8.2 [facility] Sodium [Moles/Vol] 133 mmol/L Low 136-145 [facility] Urea nitrogen [Mass/Vol] 14.0 mg/dL 7.0-18.0 [facility] Urea nitrogen/Creatinine [Mass ratio] 12.8 mg/mg [facility] Laboratory - Hematology and Cell countson 08-24-2024 Immature granulocytes/100 WBC (Bld) 0.4 % 0.0-0.5 [facility] Leukocytes [#/volume] correc evelyne for nucleated erythrocytes in Blood by Automated counon 08-24-2024 WBC corrected for nucl RBC Auto (Bld) [#/Vol] Leukocytes [#/volume] corrected for nucleated erythrocytes in Blood by Automated coun 4.0-11.0 [facility] Lymphocytes Auto (Bld) [#/Vo l]on 08-24-2024 Lymphocytes (Bld) [#/Vol] Lymphocytes [#/volume] in Blood by Automated count Low 1.2-3.8 [facility] Lymphocytes/100 WBC Auto (Bl d)on 08-24-2024 Lymphocytes/100 WBC (Bld) Lymphocytes/100 leukocytes in Blood by Automated count Low 20.5-60.0 [facility] MCH Auto (RBC) [Entitic mass ]on 08-24-2024 MCH (RBC) [Entitic mass] MCH [Entitic ma ss] by Automated count 25.9-34.0 [facility] MCHC Auto (RBC) [Mass/Vol]on 08-24-2024 MCHC (RBC) [Mass/Vol] MCHC [Mass/volume] by Automated count 29.9-35.2 [facility] MCV Auto (RBC) [Entitic vol] on 08-24-2024 MCV (RBC) [Entitic vol] MCV [Entitic vol ume] by Automated count High 80.0-94.0 [facility] Monocytes Auto (Bld) [#/Vol] on 08-24-2024 Monocytes (Bld) [#/Vol] Automated blood monocyte count 0.3-0.8 [facility] Monocytes/100 WBC Auto (Bld) on 08-24-2024 Monocytes/100 WBC (Bld) Automated monocyte % 1. 7-12.0 [facility] Neutrophils Auto (Bld) [#/Vo l]on 08-24-2024 Neutrophils (Bld) [#/Vol] Neutrophils [#/volume] in Blood by Automated count High 1.4-6.5 [facility] Neutrophils/100 WBC Auto (Bl d)on 08-24-2024 Neutrophils/100 WBC (Bld) Automated neutrophil % High 43.0-75.0 [facility] No Panel Informationon 08-24 Eosinophils # (Auto) 0.0 10 3/uL 0.0-0.7 [facility] Immature Granulocyte # (Auto) 0.04 10 3/uL High 0.00-0.03 [facility] Platelet mean volume Auto (B ld) [Entitic vol]on 08-24-2024 Platelet mean volume (Bld) [Entitic vol] Platelet mean volume [Entitic volume] in Blood by Automated count Low 9.5-13.5 [facility] Platelets Auto (Bld) [#/Vol] on 08-24-2024 Platelets (Bld) [#/Vol] Platelets [#/vol ume] in Blood by Automated count 150-450 [facility] RBC Auto (Bld) [#/Vol]on RBC (Bld) [#/Vol] Erythrocytes [#/volume] in Blood by Automated count Low 4.70-6.10 [facility] Serum or plasma albumin/glob ulin mass ratioon 08-24-2024 Albumin/Globulin [Mass ratio] Serum or plasma albumin/globulin mass ratio [facility] Serum or plasma anion gap de terminationon 08-24-2024 Anion gap [Moles/Vol] Serum or plasma an ion gap determination [facility] Basophils/100 WBC Manual cnt (Bld)on 08-23-2024 Basophils/100 WBC (Bld) Basophils/100 leukocytes in Blood by Manual count Low 0.2-2.0 [facility] CNPNon 08-23-2024 JULIETHN Telephone (ENSUMN) BANG SHARMA ([id number]) 1950 M Date Time Provider Department 08/23/24 [...] Status:Closed by MICHELLE ALMAGUER on 08/23/24 Normal [facility] Eosinophils/100 WBC Manual c nt (Bld)on 08-23-2024 Eosinophils/100 WBC (Bld) Eosinophils/100 leukocytes in Blood by Manual count Low 0.9-7.0 [facility] Estimated glomerular filtrat ion rate (GFR) non- Americanon 08-23-2024 GFR/1.73 sq M.predicted among non-blacks MDRD (S/P/Bld) [Vol rate/Area] Estimated glomerular filtration rate (GFR) non- >=60 mL/min/1.73 m 2 [facility] Globulin Calc (S) [Mass/Vol] on 08-23-2024 Globulin (S) [Mass/Vol] Serum globulin measurement by calculation (mass/volume) [facility] INR in Platelet poor plasma by Coagulation assayon 08-23-2024 INR Coag (PPP) [Relative time] INR in Platelet poor plasma by Coagulation assay [facility] Comment on above: DESIRED INR:2.0-3.0 CONDITIONS NOT LISTED BELOW2.5-3.5 FOR PROSTHETIC HEART VALVE REPLACEMENT2.5-3.5 RECURRENT THROMBOSIS Laboratory - Chemistry and C hemistry - challengeon 08-23-2024 Albumin [Mass/Vol] 3.8 g/dL 3.4-5.0 [facility] ALP [Catalytic activity/Vol] 64 U/L 46-116 [facility] ALT [Catalytic activity/Vol] 41 U/L 16-63 [facility] AST [Catalytic activity/Vol] 17 U/L 15-37 [facility] Bilirubin [Mass/Vol] 0.7 mg/dL 0.2-1.0 [facility] Calcium [Mass/Vol] 9.7 mg/dL 8.5-10.1 [facility] Chloride [Moles/Vol] 98 mmol/L 98-107 [facility] CO2 [Moles/Vol] 26.1 mmol/L 21.0-32.0 [facility] Creatinine [Mass/Vol] 1.19 mg/dL 0.70-1.30 [facility] GFR/1.73 sq M.predicted MDRD (S/P/Bld) [Vol rate/Area] mL/min/{1.73_m2} >=60 mL/min/1.73 m 2 [facility] Glucose [Mass/Vol] 130 mg/dL High 74-106 [facility] Lactate [Moles/Vol] 1.0 mmol/L 0.4-2.0 [facility] Natriuretic peptide B (Bld) [Mass/Vol] 1038.0 pg/mL High <=900.0 [facility] Potassium [Moles/Vol] 3.6 mmol/L 3.5-5.1 [facility] Protein [Mass/Vol] 7.3 g/dL 6.4-8.2 [facility] Sodium [Moles/Vol] 131 mmol/L Low 136-145 [facility] Urea nitrogen [Mass/Vol] 13.0 mg/dL 7.0-18.0 [facility] Urea nitrogen/Creatinine [Mass ratio] 10.9 mg/mg [facility] Laboratory - Hematology and Cell countson 08-23-2024 Lymphocytes/100 WBC (Bld) 4.0 % Low 20.5-60.0 [facility] Monocytes/100 WBC (Bld) 6.0 % 1.7-12.0 [facility] Laboratory - Microbiology an d Antimicrobial susceptibilityon 08-23-2024 SARS-CoV-2 (COVID-19) RNA ELLIOT+probe Ql (Unsp spec) Negative NEGATIVE [facility] Comment on above: This test [...] Absolute Basophils (Manual) 0.00 10 3/uL 0.00-0.10 [facility] Eosinophils # (Manual) 0.00 10 3/uL 0.00-0.70 [facility] Lymphocytes # (Manual) 0.52 10 3/uL Low 1.20-3.80 [facility] Monocytes # (Manual) 0.79 10 3/uL 0.30-0.80 [facility] Segmented Neutrophils # (Manual) 11.88 10 3/uL High 1.4-6.5 [facility] Troponin I High Sensitivity 33.4 pg/mL 4.0-76.1 [facility] Comment on above: CUT-OFF POINTS [...] INFORMATION. Bedside Influenza Type A Antigen Negative [facility] Comment on above: Negative for Flu A p rotein antigen. Infection due to Flu Acannot be ruled out. Flu A antigen in the sample may bebelow the detection limit of the test. Bedside Influenza Type B Antigen Negative [facility] Comment on above: Negative for Flu B p rotein antigen. Infection due to Flu Bcannot be ruled out. Flu B antigen in the sample may bebelow the detection limit of the test. Prothrombin time (PT)on PT Coag (PPP) [Time] Prothrombin time (PT) High 9.0- 11.6 [facility] Segmented neutrophils/100 WB C Manual cnt (Bld)on 08-23-2024 Segmented neutrophils/100 WBC (Bld) Manual blood segmented neutrophils/100 leukocytes High 43.0-75.0 [facility] Serum or plasma albumin/glob ulin mass ratioon 08-23-2024 Albumin/Globulin [Mass ratio] Serum or plasma albumin/globulin mass ratio [facility] Serum or plasma anion gap de terminationon 08-23-2024 Anion gap [Moles/Vol] Serum or plasma an ion gap determination [facility] CNPNon 08-18-2024 JULIETHN Telephone (ENDOLN) BANG [id number]) 1950 M Date Time Provider Department 08/18/24 HERBER DONALD ENDODENIS During your visit today, we recorded the following information about you: Marina Mccracken MA 08/18/2024 10:39 AM Signed A form has been received from [facility] for DXA Bone Densitometry Report. Sent [...] Assessed Reason for Visit: Results [95] Cmt: [facility] - DXA scan Prescriptions as of [...] Encounter Status:Closed by HERBER DONALD on 08/18/24 [facility] 08-17-2024 [facility] Telephone (ENSUMN) BANG SHARMA ([id number]) 1950 M Date Time Provider Department 08/17[facility] During your visit today, we recorded the following information about you: Edd Sosa 08/17/2024 4:00 PM Signed 08/17/2024 INTAKE PENDING-MYCHART MSG SENT TO CONFIRM APPT. AND COMPLETE INTAKE QUESTIONS-NEED PARTIAL LABS, URINE, DXA, AND MIBI-- CALLED THE LAB TO POSSIBLY ADD ON IONIZED CALCIUM AND VIT D1 25. ENDOCRINE SURGERY PATIENT WORKSHEET Initial Call Date: August 17, 2024 Reason for Consult/ Referral: Hyperparathyroid PATIENT DEMOGRAPHICS Name: Bang Sow Zachary F#: [id number] : 1950 AGE: [age] year old Contact Numbers: Home: (home) Work: There is no work phone number on file. PATIENT PHYSICIAN INFORMATION Referring Doctor: Address: Phone: Science Faculty Member: Address: Phone: PCP: Alvin Lo (Adal) [address] [place] [id number] PAST TREATMENT Office notes: SEE EPIC Medications: [...] 65 pg/mL 106 (H) Imaging Reports: SEE [facility] CD of Images: SEE [facility] FNA: no FNA Slides: N/A [...] (HCC) [E21.3] Order(s):CALCIUM, IONIZED [SQICA] Order #: [id number] FUTURE VITAMIN D1 25-DIHYDR [[id number]] Order #: [id number] FUTURE CALCIUM, 24 HR URINE [SQUCALCD] Order #: [id number]. #:[id number] CREATININE, 24 HOUR URINE [SQUCRD] Order #: [id number]. #:[id number] DXA-AXIAL SKELETON [[id number]] Order #: [id number] FUTURE DXA-FOREARM SKELETON [[id number]] Order #: [id number] FUTURE Prescriptions as of 08/17/2024 - meloxicam [...] Status:Closed by EDD SOSA on 08/17/24 Normal [facility] 1,25-dihydroxyvitamin D3 [Ma ss/Vol]on 08-16-2024 VIT D1,25 DIHYDROXY 45.7 pg/mL Normal 19.9-79.3 [facility] Comment on above: Order Comment: Speci men Type: BLOOD SPECIMENOrdering Facility: [facility] Address: [address] [place] [address] Performed By: #### 1 649-3, 1988-06 ####[facility] [id number] [address] STATES OF [facility] 25(OH)D3 SerPl-mCncon 2024 25-hydroxyvitamin D3 [Mass/Vol] 32.7 ng/mL Normal 31.0-80.0 [facility] Comment on above: Order Comment: Speci men Type: BLOOD SPECIMENOrdering Facility: [facility] Address: [address] [place] [address] Result Comment: Clas sification of 25 [place] Vitamin D status: Deficiency/Insufficiency: < or = 30 ng/ml. Sufficiency/Optimal Levels: 31-80 ng/mL Toxicity: > 100 ng/mL. Test performed by chemiluminescent immunoassay. Performed By: #### 1 649-3, 1988-06 ####[facility] LABIA [id number] [address] OF [place] CNOVon 08-16-2024 CNOV Office Visit (ENDOLN ) BANG SHARMA ([id number]) 1950 M Date Time Provider Department 08/16/24 [...] get records of recent DXA scan at [facility] - RENAL FUNCTION PANEL; Future - [...] Reviewed: 08/16/2024 (more content not included)... Normal [facility] Laboratory - Chemistry and C hemistry - challengeon 08-16-2024 Albumin [Mass/Vol] 4.5 g/dL 3.9-4.9 [facility] Calcium [Mass/Vol] 11.2 mg/dL High 8.5-10.2 [facility] Chloride [Moles/Vol] 107 mmol/L 98-107 [facility] CO2 [Moles/Vol] 23 mmol/L 22-30 [facility] Creatinine [Mass/Vol] 1.55 mg/dL High 0.73-1.22 [facility] Glucose [Mass/Vol] 89 mg/dL 74-99 [facility] Comment on above: The [place] Diab[employer] s Association (ADA) provides guidance for [...] Standards of Medical Care in Diabetes 2016, [place] Diabetes [employer]. Diabetes Care. 2016.39(Suppl 1). Potassium [Moles/Vol] 4.3 mmol/L 3.7-5.1 [facility] Sodium [Moles/Vol] 143 mmol/L 136-144 [facility] Urea nitrogen [Mass/Vol] 21 mg/dL 9 [facility] No Panel Informationon 08-16 25-Hydroxy Vitamin D Total 32.7 ng/mL 31.0-80.0 [facility] Comment on above: Classification of 25 [place] Vitamin D status: Deficiency/Insufficiency: < or = 30 ng/ml.Sufficiency/Optimal Levels: 31-80 ng/mLToxicity: > 100 ng/mL. Test performed by chemiluminescent immunoassay. Estimated GFR (CKD-EPI) 47 mL/min/1.73m??? Low >=60 [facility] Comment on above: Estimated Glomerular [...] GFR. Parathyroid Hormone (Intact) 106 pg/mL High [facility] Phosphorus Level 2.2 mg/dL Low 2.7-4.8 [facility] PTH-Intact [facility]-ncon 07-20 Parathyrin.intact [Mass/Vol] 106 pg/mL High - [facility] Comment on above: Order Comment: Speci men Type: BLOOD SPECIMENOrdering Facility: [facility] Address: [address] [place] [address] Performed By: #### 2 731-8, 52669-6 ####[facility] LABCLIA [id number] [place] [id number] [place] Renal function 2000 panelon 08-16-2024 Albumin [Mass/Vol] 4.5 g/dL Normal 3.9-4.9 [facility] Comment on above: Order Comment: Speci men Type: BLOOD SPECIMENOrdering Facility: [facility] Address: [address] [place] [address] Performed By: #### 2 731-8, 17220-6 ####[facility] LABCLIA [id number] [address] [address] [place] Anion gap [Moles/Vol] 13 mmol/L Normal 8-15 [facility] Comment on above: Order Comment: Speci men Type: BLOOD SPECIMENOrdering Facility: [facility] Address: [address] [place] [address] Performed By: #### 2 731-8, 86392-3 ####[facility] LABCLIA [id number] [place] [id number] [place] Calcium [Mass/Vol] 11.2 mg/dL High 8.5-10.2 [facility] Comment on above: Order Comment: Speci men Type: BLOOD SPECIMENOrdering Facility: [facility] Address: [address] [place] [address] Performed By: #### 2 731-8, 65734-3 ####[facility] LABCLIA [id number] [place] [id number] [place] Chloride [Moles/Vol] 107 mmol/L Normal 98-107 [facility] Comment on above: Order Comment: Speci men Type: BLOOD SPECIMENOrdering Facility: [facility] Address: [address] [place] [address] Performed By: #### 2 731-8, 37894-9 ####[facility] LABCLIA [id number] [place] [id number] [place] CO2 [Moles/Vol] 23 mmol/L Normal 22-30 [facility] Comment on above: Order Comment: Speci men Type: BLOOD SPECIMENOrdering Facility: [facility] Address: [address] [place] [address] Performed By: #### 2 731-8, 96023-5 ####[facility] LABCLIA [id number] [place] [id number] [place] Creatinine [Mass/Vol] 1.55 mg/dL High 0.73-1.22 [facility] Comment on above: Order Comment: Juana ceron Type: BLOOD SPECIMENOrdering Facility: [facility] Address: [address] [place] [address] Performed By: #### 2 731-8, 99607-5 ####[facility] LABCLIA [id number] [place] [address] [place] Creatinine and Glomerular filtration rate.predicted panel (S/P/Bld) 47 mL/min/1.73m??? Low >=60 [facility] Comment on above: Order Comment: Juana ceron Type: BLOOD SPECIMENOrdering Facility: [facility] Address: [address] [place] [address] Result Comment: Lenora mated Glomerular Filtration Rate [...] actual GFR. Performed By: #### 2 731-8, 25958-7 ####[facility] LABCLIA [id number] [place] [address] [place] Glucose [Mass/Vol] 89 mg/dL Normal 74-99 [facility] Comment on above: Order Comment: Juana ceron Type: BLOOD SPECIMENOrdering Facility: [facility] Address: [address] [place] [address] Result Comment: The [place] Diabetes Association (ADA) provides guidance for cutoff [...] Standards of Medical Care in Diabetes 2016, [place] Diabetes Association. Diabetes Care. 2016.39(Suppl 1). Performed By: #### 2 731-8, 50445-0 ####[facility] LABCLIA [id number] [address] [address] [place] Phosphate [Mass/Vol] 2.2 mg/dL Low 2.7-4.8 [facility] Comment on above: Order Comment: Speci men Type: BLOOD SPECIMENOrdering Facility: [facility] Address: [address] [place] [address] Performed By: #### 2 731-8, 51147-7 ####[facility] LABIA [id number] [place] [address] [place] Potassium [Moles/Vol] 4.3 mmol/L Normal 3.7-5.1 [facility] Comment on above: Order Comment: Speci men Type: BLOOD SPECIMENOrdering Facility: [facility] Address: [address] [place], [place] [address] Performed By: #### 2 731-8, 17907-4 ####[facility] LABIA [id number] [address] [address] [place] Sodium [Moles/Vol] 143 mmol/L Normal 136-144 [facility] Comment on above: Order Comment: Speci men Type: BLOOD SPECIMENOrdering Facility: [facility] Address: [address] [place] [id number] Performed By: #### 2 731-8, 15551-1 ####[facility] LABIA [id number] [address] [address] [place] Urea nitrogen [Mass/Vol] 21 mg/dL Normal 9-24 [facility] Comment on above: Order Comment: Speci men Type: BLOOD SPECIMENOrdering Facility: [facility] Address: [address] [place], [place] [address] Performed By: #### 2 731-8, 98661-8 ####[facility] LABCLIA [id number] [place] [address] [place] Serum or plasma anion gap de terminationon 08-16-2024 Anion gap [Moles/Vol] Serum or plasma an ion gap determination 8-15 [facility] Serum or plasma calcitriol m easurement (mass/volume)on 08-16-2024 1,25-dihydroxyvitamin D3 [Mass/Vol] Serum or plasma calcitriol measurement (mass/volume) 19.9-79.3 [facility] Office Visiton 07-08-2024 Follow-up visit [id number] Lucinda Sharma 1950 M Date Provider Department Center 07/08/2024 [id number], ADAM ARAM Panda Family History Problem Relation Age of Onset Coronary artery disease Other Hypertension Other Family Status - Relation Status Age at Other Level of Service:27054 HI OFFICE/OUTPATIENT ESTABLISHED LOW MDM 20 MIN Normal [facility] Estimated glomerular filtrat ion rate (GFR) non- Americanon 07-07-2024 GFR/1.73 sq M.predicted among non-blacks MDRD (S/P/Bld) [Vol rate/Area] Estimated glomerular filtration rate (GFR) non- >=60 mL/min/1.73 m 2 [facility] Laboratory - Chemistry and C hemistry - challengeon 07-07-2024 Calcium [Mass/Vol] 10.5 mg/dL High 8.5-10.1 [facility] Chloride [Moles/Vol] 106 mmol/L 98-107 [facility] CO2 [Moles/Vol] 29.4 mmol/L 21.0-32.0 [facility] Creatinine [Mass/Vol] 1.13 mg/dL 0.70-1.30 [facility] GFR/1.73 sq M.predicted MDRD (S/P/Bld) [Vol rate/Area] mL/min/{1.73_m2} >=60 mL/min/1.73 m 2 [facility] Glucose [Mass/Vol] 105 mg/dL 74-106 [facility] Potassium [Moles/Vol] 4.1 mmol/L 3.5-5.1 [facility] Sodium [Moles/Vol] 142 mmol/L 136-145 [facility] Urea nitrogen [Mass/Vol] 21.0 mg/dL High 7.0-18.0 [facility] Urea nitrogen/Creatinine [Mass ratio] 18.6 mg/mg [facility] No Panel Informationon 07-07 25-Hydroxy Vitamin D Total 36.6 ng/mL [facility] Comment on above: <20 ng/mL Vit D defi cient20-<30 ng/mL Vit D [id number] ng/mL Vit D sufficient>100 ng/mL Potential Toxicity Parathyroid Hormone (Intact) 91 pg/mL Abnormal 15-65 [facility] Comment on above: Performed at: [employer] [address] [id number] Director: Shahab Rodney PhD, Phone: [phone] Serum or plasma anion gap de terminationon 07-07-2024 Anion gap [Moles/Vol] Serum or plasma an ion gap determination [facility] Office Visiton 06-14-2024 Follow-up visit [id number] Lucinda Sharma 1950 M Date Provider Department Center 06/14/2024 ALPESH MARQUEZ ARAM Panda Family History Problem Relation Age of Onset Coronary artery disease Other Hypertension Other Family Status - Relation Status Age at Other Level of Service:26555 HI OFFICE/OUTPATIENT ESTABLISHED LOW MDM 20 MIN Normal [facility] ALL THYROID STIM HORMONEon 1 06-08-2023 TSH Qn 0.963 m[IU]/L [facility] Albumin [Mass/volume] in Ser um or Plasmaon 04-07-2024 Albumin [Mass/Vol] Albumin [Mass/volume ] in Serum or Plasma 2.9-4.4 [facility] Estimated glomerular filtrat ion rate (GFR) non- Americanon 04-07-2024 GFR/1.73 sq M.predicted among non-blacks MDRD (S/P/Bld) [Vol rate/Area] Estimated glomerular filtration rate (GFR) non- >=60 mL/min/1.73 m 2 [facility] Laboratory - Chemistry and C hemistry - challengeon 04-07-2024 Calcium [Mass/Vol] 10.0 mg/dL 8.5-10.1 [facility] Chloride [Moles/Vol] 107 mmol/L 98-107 [facility] CO2 [Moles/Vol] 29.3 mmol/L 21.0-32.0 [facility] Cobalamin (Vitamin B12) [Mass/Vol] 748 pg/mL 232-1245 [facility] Comment on above: Performed at: [facility] [address] [id number] Director: Shahab Rodney PhD, Phone: [phone] Creatinine [Mass/Vol] 0.90 mg/dL 0.70-1.30 [facility] GFR/1.73 sq M.predicted MDRD (S/P/Bld) [Vol rate/Area] mL/min/{1.73_m2} >=60 mL/min/1.73 m 2 [facility] Glucose [Mass/Vol] 99 mg/dL 74-106 [facility] Potassium [Moles/Vol] 3.7 mmol/L 3.5-5.1 [facility] Sodium [Moles/Vol] 141 mmol/L 136-145 [facility] TSH Qn 0.963 m[IU]/L 0.358-3.740 [facility] Urea nitrogen [Mass/Vol] 12.0 mg/dL 7.0-18.0 [facility] Urea nitrogen/Creatinine [Mass ratio] 13.3 mg/mg [facility] Bilirubin Ql (U) Negative NEGATIVE [facility] Glucose (U) [Mass/Vol] Negative NEGATIVE [facility] Ketones Ql (U) Negative NEGATIVE [facility] pH (U) 6.5 [pH] 5.0-9.0 [facility] Specific gravity (U) [Rel density] 1.020 1.005-1.025 [facility] Urobilinogen Qn (U) 0.2 {Andre'U}/dL 0.2-1.0 [facility] Laboratory - Specimen inform ationon 04-07-2024 Appearance (U) CLEAR CLEAR [facility] Color (U) LT. YELLOW YELLOW [facility] Laboratory - Urinalysison Leukocyte esterase Test strip Ql (U) Negative NEGATIVE [facility] Mucus Ql (Urine sed) NONE SEEN NONE SEEN [facility] Nitrite Ql (U) Negative NEGATIVE [facility] Protein Ql (U) Negative NEG/TRACE [facility] No Panel Informationon 04-07 25-Hydroxy Vitamin D Total 18.7 ng/mL [facility] Comment on above: <20 ng/mL Vit D defi cient20-<30 ng/mL Vit D [id number] ng/mL Vit D sufficient>100 ng/mL Potential Toxicity Folate 23.60 ng/mL 8.60-58.90 [facility] Parathyroid Hormone (Intact) 88 pg/mL Abnormal 15-65 [facility] Comment on above: Performed at: [facility] [address] [id number] Director: Shahab Rodney PhD, Phone: [phone] Protein Electrophoresis M-Harry Not Observed g/dL Not Observed [facility] Protein Electrophoresis Note Comment . [facility] Comment on above: Protein electrophore sis scan will follow via computer,mail, or bank courier delivery.Performed at: [facility] [address] [id number] Director: Shahab Rodney PhD, Phone: [phone] Urine Bacteria NONE SEEN #/HPF NONE SEEN [facility] Urine Occult Blood Negative NEGATIVE [facility] Urine RBC NONE SEEN #/HPF 0-2 [facility] Urine Squamous Epithelial Cells RARE #/LPF NONE/RARE [facility] Urine WBC NONE SEEN #/HPF NONE SEEN [facility] Protein [Mass/volume] in Ser um or Plasmaon 04-07-2024 Protein [Mass/Vol] Protein [Mass/volume ] in Serum or Plasma 6.0-8.5 [facility] Serum globulin measurement ( mass/volume)on 04-07-2024 Globulin (S) [Mass/Vol] Serum globulin measurement (mass/volume) 2.2-3.9 [facility] Serum or plasma albumin/glob ulin mass ratioon 04-07-2024 Albumin/Globulin [Mass ratio] Serum or plasma albumin/globulin mass ratio 0.7-1.7 [facility] Serum or plasma alpha 1 glob ulin measurement by electrophoresis (mass/volume)on 04-07-2024 Alpha 1 globulin Elph [Mass/Vol] Serum or plasma alpha 1 globulin measurement by electrophoresis (mass/volume) 0.0-0.4 [facility] Serum or plasma alpha 2 glob ulin measurement by electrophoresis (mass/volume)on 04-07-2024 Alpha 2 globulin Elph [Mass/Vol] Serum or plasma alpha 2 globulin measurement by electrophoresis (mass/volume) 0.4-1.0 [facility] Serum or plasma anion gap de terminationon 04-07-2024 Anion gap [Moles/Vol] Serum or plasma an ion gap determination [facility] Serum or plasma beta globuli n measurement by electrophoresis (mass/volume)on 04-07-2024 Beta globulin Elph [Mass/Vol] Serum or plasma beta globulin measurement by electrophoresis (mass/volume) 0.7-1.3 [facility] Serum or plasma gamma globul in measurement by electrophoresis (mass/volume)on 04-07-2024 Gamma globulin Elph [Mass/Vol] Serum or plasma gamma globulin measurement by electrophoresis (mass/volume) 0.4-1.8 [facility] Office Visiton 03-15-2024 Follow-up visit [id number] Lucinda Sharma 1950 M Date Provider Department Center 03/15/2024 DREA STOVALL ARAM [facility] Family History Problem Relation Age of Onset Coronary artery disease Other Hypertension Other Family Status - Relation Status Age at Other Level of Service:56093 HI OFFICE/OUTPATIENT ESTABLISHED LOW MDM 20 MIN Reason for Visit and Comments: Follow-up [469266] - 3 month follow up Atrial Fibrillation [80] Normal [facility] Basophils Auto (Bld) [#/Vol] on 03-10-2024 Basophils (Bld) [#/Vol] Automated basoph il count 0.0-0.1 [facility] Basophils/100 WBC Auto (Bld) on 03-10-2024 Basophils/100 WBC (Bld) Automated basophil % 0. 2-2.0 [facility] Cholesterol in LDL Calc [Mas s/Vol]on 03-10-2024 Cholesterol in LDL [Mass/Vol] Cholesterol in LDL [Mass/volume] in Serum or Plasma by calculation [facility] Comment on above: <100 mg/dl [id number] 0-129 mg/dl NEAR OR ABOVE [id number] mg/dl BORDERLINE ODUC655-226 mg/dl HIGH>190 mg/dl VERY HIGH Cholesterol in VLDL Calc [Ma ss/Vol]on 03-10-2024 Cholesterol in VLDL [Mass/Vol] Cholesterol in VLDL [Mass/volume] in Serum or Plasma by calculation [facility] Eosinophils/100 WBC Auto (Bl d)on 03-10-2024 Eosinophils/100 WBC (Bld) Automated eosinophil % 0.9-7.0 [facility] Erythrocyte distribution wid th Auto (RBC) [Ratio]on 03-10-2024 Erythrocyte distribution width (RBC) [Ratio] Erythrocyte distribution width [Ratio] by Automated count 11.0-15.0 [facility] Estimated glomerular filtrat ion rate (GFR) non- Americanon 03-10-2024 GFR/1.73 sq M.predicted among non-blacks MDRD (S/P/Bld) [Vol rate/Area] Estimated glomerular filtration rate (GFR) non- >=60 mL/min/1.73 m 2 [facility] Globulin Calc (S) [Mass/Vol] on 03-10-2024 Globulin (S) [Mass/Vol] Serum globulin measurement by calculation (mass/volume) [facility] Hematocrit Auto (Bld) [Volum e fraction]on 03-10-2024 Hematocrit (Bld) [Volume fraction] Hematocrit [Volume Fraction] of Blood by Automated count 42.0-54.0 [facility] Hemoglobin [Mass/volume] in Bloodon 03-10-2024 Hemoglobin (Bld) [Mass/Vol] Hemoglobin [Mass/volume] in Blood 14.0-18.0 [facility] Laboratory - Chemistry and C hemistry - challengeon 03-10-2024 Albumin [Mass/Vol] 3.5 g/dL 3.4-5.0 [facility] ALP [Catalytic activity/Vol] 58 U/L 46-116 [facility] ALT [Catalytic activity/Vol] 32 U/L 16-63 [facility] AST [Catalytic activity/Vol] 16 U/L 15-37 [facility] Bilirubin [Mass/Vol] 0.8 mg/dL 0.2-1.0 [facility] Calcium [Mass/Vol] 10.4 mg/dL High 8.5-10.1 [facility] Chloride [Moles/Vol] 107 mmol/L 98-107 [facility] Cholesterol [Mass/Vol] 199 mg/dL <=200 Fi [facility] Cholesterol in HDL [Mass/Vol] 53 mg/dL 40-60 [facility] Comment on above: > or =60 mg/dl - LOW CARDIOVASCULAR RISK<40 mg/dl - HIGH CARDIOVASCULAR RISK CO2 [Moles/Vol] 28.7 mmol/L 21.0-32.0 [facility] Creatinine [Mass/Vol] 0.85 mg/dL 0.70-1.30 [facility] GFR/1.73 sq M.predicted MDRD (S/P/Bld) [Vol rate/Area] mL/min/{1.73_m2} >=60 mL/min/1.73 m 2 [facility] Glucose [Mass/Vol] 100 mg/dL 74-106 [facility] Potassium [Moles/Vol] 4.0 mmol/L 3.5-5.1 [facility] Protein [Mass/Vol] 6.8 g/dL 6.4-8.2 [facility] Sodium [Moles/Vol] 143 mmol/L 136-145 [facility] Triglyceride [Mass/Vol] 100 mg/dL <=150 F [facility] TSH Qn 0.915 m[IU]/L 0.358-3.740 [facility] Urea nitrogen [Mass/Vol] 15.0 mg/dL 7.0-18.0 [facility] Urea nitrogen/Creatinine [Mass ratio] 17.6 mg/mg [facility] Laboratory - Hematology and Cell countson 03-10-2024 Immature granulocytes/100 WBC (Bld) 0.2 % 0.0-0.5 [facility] Leukocytes [#/volume] correc evelyne for nucleated erythrocytes in Blood by Automated counon 03-10-2024 WBC corrected for nucl RBC Auto (Bld) [#/Vol] Leukocytes [#/volume] corrected for nucleated erythrocytes in Blood by Automated coun 4.0-11.0 [facility] Lymphocytes Auto (Bld) [#/Vo l]on 03-10-2024 Lymphocytes (Bld) [#/Vol] Lymphocytes [#/volume] in Blood by Automated count 1.2-3.8 [facility] Lymphocytes/100 WBC Auto (Bl d)on 03-10-2024 Lymphocytes/100 WBC (Bld) Lymphocytes/100 leukocytes in Blood by Automated count 20.5-60.0 [facility] MCH Auto (RBC) [Entitic mass ]on 03-10-2024 MCH (RBC) [Entitic mass] MCH [Entitic ma ss] by Automated count 25.9-34.0 [facility] MCHC Auto (RBC) [Mass/Vol]on 03-10-2024 MCHC (RBC) [Mass/Vol] MCHC [Mass/volume] by Automated count 29.9-35.2 [facility] MCV Auto (RBC) [Entitic vol] on 03-10-2024 MCV (RBC) [Entitic vol] MCV [Entitic vol ume] by Automated count High 80.0-94.0 [facility] Monocytes Auto (Bld) [#/Vol] on 03-10-2024 Monocytes (Bld) [#/Vol] Automated blood monocyte count 0.3-0.8 [facility] Monocytes/100 WBC Auto (Bld) on 03-10-2024 Monocytes/100 WBC (Bld) Automated monocyte % 1. 7-12.0 [facility] Neutrophils Auto (Bld) [#/Vo l]on 03-10-2024 Neutrophils (Bld) [#/Vol] Neutrophils [#/volume] in Blood by Automated count 1.4-6.5 [facility] Neutrophils/100 WBC Auto (Bl d)on 03-10-2024 Neutrophils/100 WBC (Bld) Automated neutrophil % 43.0-75.0 [facility] No Panel Informationon 03-10 Eosinophils # (Auto) 0.2 10 3/uL 0.0-0.7 [facility] Immature Granulocyte # (Auto) 0.01 10 3/uL 0.00-0.03 [facility] Prostate Specific Antigen Screen 1.32 ng/mL <=4.00 [facility] Platelet mean volume Auto (B ld) [Entitic vol]on 03-10-2024 Platelet mean volume (Bld) [Entitic vol] Platelet mean volume [Entitic volume] in Blood by Automated count Low 9.5-13.5 [facility] Platelets Auto (Bld) [#/Vol] on 03-10-2024 Platelets (Bld) [#/Vol] Platelets [#/vol ume] in Blood by Automated count 150-450 [facility] RBC Auto (Bld) [#/Vol]on RBC (Bld) [#/Vol] Erythrocytes [#/volume] in Blood by Automated count Low 4.70-6.10 [facility] Serum or plasma albumin/glob ulin mass ratioon 03-10-2024 Albumin/Globulin [Mass ratio] Serum or plasma albumin/globulin mass ratio [facility] Serum or plasma anion gap de terminationon 03-10-2024 Anion gap [Moles/Vol] Serum or plasma an ion gap determination [facility] Serum or plasma total choles terol/high density lipoprotein (HDL) cholesterol mass ranjit 03-10-2024 Cholesterol.total/Choles terol in HDL [Mass ratio] Serum or plasma total cholesterol/high density lipoprotein (HDL) cholesterol mass rat [facility] Comment on above: 3.3 - 4.4 LOW RISK4. 4 - 7.1 AVERAGE RISK7.1 - 11.0 MODERATE RISK>11.0 HIGH RISK EMG 2 Extremitieson 02-24-20 EMG/NCS BLE Severe sensory-motor polyneuropathy. [facility] NVC 9-10 Nerveson 02-24-2024 EMG/NCS BLE Severe sensory-motor polyneuropathy. [facility] HPon 12-09-2023 [facility] Electrophysiology Consult Note Reason for visit: [...] This was followed up with [facility] with [facility] protocol which was negative for [...] This was followed up with [facility] with [facility] protocol which was negative for [...] CARDIAC CATHETERIZATION (more content not included)... Normal [facility] NURSNOTEon 12-09-2023 NURSNOTE RN educated pt on d/ c instructions. RN encouraged pt to voice any questions or concerns. Pt verbalizes no questions or concerns at this time. Pt walked off of unit with all of belongings. Normal [facility] 36on 12-02-2023 36 Regarding echo resul t from 11/24/2023: NILA Avitia MA; Alpesh Davis MD Severe biatrial enlargement LV systolic function low end of normal 50-55% RV normal size and function, normal rt sided pressures- no fluid overload LM on patient's VM. Normal [facility] Basophils Auto (Bld) [#/Vol] on 12-01-2023 Basophils (Bld) [#/Vol] 0.0 10 3/uL 0.0-0.1 [facility] Basophils/100 WBC Auto (Bld) on 12-01-2023 Basophils/100 WBC (Bld) 0.5 % 0.2-2.0 F [facility] Eosinophils/100 WBC Auto (Bl d)on 12-01-2023 Eosinophils/100 WBC (Bld) 1.1 % 0.9-7.0 [facility] Erythrocyte distribution wid th Auto (RBC) [Ratio]on 12-01-2023 Erythrocyte distribution width (RBC) [Ratio] 12.8 % 11.0-15.0 [facility] Hematocrit Auto (Bld) [Volum e fraction]on 12-01-2023 Hematocrit (Bld) [Volume fraction] 40.8 % Low 42.0-54.0 [facility] Hemoglobin [Mass/volume] in Bloodon 12-01-2023 Hemoglobin (Bld) [Mass/Vol] 13.6 g/dL Low 14.0-18.0 [facility] Laboratory - Hematology and Cell countson 12-01-2023 Immature granulocytes/100 WBC (Bld) 0.3 % 0.0-0.5 [facility] Leukocytes [#/volume] correc evelyne for nucleated erythrocytes in Blood by Automated counon 12-01-2023 WBC corrected for nucl RBC Auto (Bld) [#/Vol] 6.4 10 3/uL 4.0-11.0 [facility] Lymphocytes Auto (Bld) [#/Vo l]on 12-01-2023 Lymphocytes (Bld) [#/Vol] 1.3 10 3/uL 1.2-3.8 [facility] Lymphocytes/100 WBC Auto (Bl d)on 12-01-2023 Lymphocytes/100 WBC (Bld) 20.7 % 20.5-60.0 [facility] MCH Auto (RBC) [Entitic mass ]on 12-01-2023 MCH (RBC) [Entitic mass] 31.7 pg 25.9-34.0 [facility] MCHC Auto (RBC) [Mass/Vol]on 12-01-2023 MCHC (RBC) [Mass/Vol] 33.3 g/dL 29.9-35.2 [facility] MCV Auto (RBC) [Entitic vol] on 12-01-2023 MCV (RBC) [Entitic vol] 95.1 fL High 80.0-94.0 F [facility] Monocytes Auto (Bld) [#/Vol] on 12-01-2023 Monocytes (Bld) [#/Vol] 0.8 10 3/uL 0.3-0.8 [facility] Monocytes/100 WBC Auto (Bld) on 12-01-2023 Monocytes/100 WBC (Bld) 11.8 % 1.7-12.0 F [facility] Neutrophils Auto (Bld) [#/Vo l]on 12-01-2023 Neutrophils (Bld) [#/Vol] 4.2 10 3/uL 1.4-6.5 [facility] Neutrophils/100 WBC Auto (Bl d)on 12-01-2023 Neutrophils/100 WBC (Bld) 65.6 % 43.0-75.0 [facility] No Panel Informationon 11-30 Eosinophils # (Auto) 0.1 10 3/uL 0.0-0.7 [facility] Immature Granulocyte # (Auto) 0.02 10 3/uL 0.00-0.03 [facility] Platelet mean volume Auto (B ld) [Entitic vol]on 12-01-2023 Platelet mean volume (Bld) [Entitic vol] 8.9 fL Low 9.5-13.5 [facility] Platelets Auto (Bld) [#/Vol] on 12-01-2023 Platelets (Bld) [#/Vol] 265 10 3/uL 150-450 [facility] RBC Auto (Bld) [#/Vol]on RBC (Bld) [#/Vol] 4.29 10 6/uL Low 4.70-6.10 [facility] CNOVon 01-13-2023 CNOV Office Visit (ORFWHP ) BANG SHARMA ([id number]) 1950 M Date Time Provider Department 01/13/23 2:30 PM HARESH PINEDA ORFWHP During your visit today, we recorded the following information about you: Haresh Pineda MD 01/13/2023 4:19 PM Signed Orthopaedic Surgery Follow-Up Clinic Note Surgery/Date: 08/27/2017 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 (CPT 51921 - 22) Placement of Prophylactic Carbon Fiber Tibial Nail, Right Tibia (CPT 23622) High Speed Ehsan and Adjuvant Treatment with 10% H202 (CPT 52856) Neruolysis and Dissection of Deep Peroneal Nerve (CPT 45239) Right Iliac Crest Marrow Aspiration/Couderay ( CPT 80921) Diagnosis: Right Tibial Diaphysis Cartilage Lesion with [...] the date of the service which included [id number] patient care, completing clinical documentation, obtaining and/or [...] information added by medical student, resident, nurse, WASHER AND CAPPER MACHINE OPERATOR/PA-C that I have placed my signature directly below I have verified and either instructed them to document in a scribe function or document appropriately in the chart during the patient visit. Haresh Beavers (more content not included)... Normal [facility] FLECAINEon 06-24-2022 FLECAINIDE 0.39 ug/ml Normal 0.20 - 1.00 [facility] Comment on above: Result Comment: Flec ainide reported as flecainide acetate. The reference range also is defined as flecaininde acetate. This test was developed and its performance characteristics determined by [facility]. It has not been cleared or approved by the Food and Drug Administration. Performed By: #### T SH, BMP, LIPID, ALT #### [facility] [address] [place], [place] [address] Dr. Fidel Paige CBC AUTO DIFFon 06-09-2022 BASO # 0.0 103/ul Normal 0.0-0.1 [facility] Comment on above: Performed By: #### C BC #### [facility] [address] [place], [place] [address] Dr. Fidel Paige Basophils/100 WBC (Bld) 0.6 % Normal 0.2-2.0 [facility] Comment on above: Performed By: #### C BC #### [facility] [address] [place] [address] Dr. Fidel Paige EO # 0.1 103/ul Normal 0.0-0.7 [facility] Comment on above: Performed By: #### C BC #### [facility] [address] [place] [address] Dr. Fidel Paige Eosinophils/100 WBC (Bld) 2.8 % Normal 0.9-7.0 [facility] Comment on above: Performed By: #### C BC #### [facility] [address] [place] [address] Dr. Fidel Paige Erythrocyte distribution width (RBC) [Ratio] 12.8 % Normal 11.0-15.0 [facility] Comment on above: Performed By: #### C BC #### [facility] [address] [place] [address] Dr. Fidel aPige Hematocrit (Bld) [Volume fraction] 41.9 % Critically low 42.0-54.0 [facility] Comment on above: Performed By: #### C BC #### [facility] [address] [place] [address] Dr. Fidel Paige Hemoglobin (Bld) [Mass/Vol] 14.1 g/dL Normal 14.0-18.0 [facility] Comment on above: Performed By: #### C BC #### [facility] [address] [place] [address] Dr. Fidel Paige IG # 0.01 10e3/ul Normal 0.00-0.03 [facility] Comment on above: Performed By: #### C BC #### [facility] [address] [place] [address] Dr. Fidel Paige IG % 0.2 % Normal 0.0-0.5 [facility] Comment on above: Performed By: #### C BC #### [facility] [address] [place] [address] Dr. Fidel Paige LYMPH # 1.4 103/ul Normal 1.2-3.8 [facility] Comment on above: Performed By: #### C BC #### [facility] [address] [place] [address] Dr. Fidel Paige Lymphocytes/100 WBC (Bld) 29.2 % Normal 20.5-60.0 [facility] Comment on above: Performed By: #### C BC #### [facility] [address] [place] [address] Dr. Fidel Paige MANUAL DIFF REQ NO Normal [facility] Comment on above: Performed By: #### C BC #### [facility] [address] [place] [address] Dr. Fidel Paige MCH (RBC) [Entitic mass] 31.3 pg Normal 25.9-34.0 [facility] Comment on above: Performed By: #### C BC #### [facility] [address] [place] [address] Dr. Fidel Paige MCHC (RBC) [Mass/Vol] 33.7 g/dL Normal 29.9-35.2 [facility] Comment on above: Performed By: #### C BC #### [facility] [address] [place] [address] Dr. Fidel Paige MCV (RBC) [Entitic vol] 92.9 fL Normal 80.0-94.0 [facility] Comment on above: Performed By: #### C BC #### [facility] [address] [place] [address] Dr. Fidel Paige MONO # 0.7 103/ul Normal 0.3-0.8 [facility] Comment on above: Performed By: #### C BC #### [facility] [address] [place] [address] Dr. Fidel Paige Monocytes/100 WBC (Bld) 13.4 % Critically high 1.7-12. 0 [facility] Comment on above: Performed By: #### C BC #### [facility] [address] [place] [address] Dr. Fidel Paige NEUT # 2.7 103/ul Normal 1.4-6.5 [facility] Comment on above: Performed By: #### C BC #### [facility] [address] [place] [address] [address] Fidel Paige Neutrophils/100 WBC (Bld) 53.8 % Normal 43.0-75.0 [facility] Comment on above: Performed By: #### C BC #### [facility] [address] [place] [address] [address] Fidel Paige Platelet mean volume (Bld) [Entitic vol] 8.7 fL Critically low 9.5-13.5 [facility] Comment on above: Performed By: #### C BC #### [facility] [address] [place] [address] Dr. Fidel Paige PLT 278 103/ul Normal 150-450 [facility] Comment on above: Performed By: #### C BC #### [facility] [address] [place] [address] Dr. Fidel Paige RBC 4.51 106/ul Critically low 4.70-6.10 [facility] Comment on above: Performed By: #### C BC #### [facility] [address] [place] [address] Dr. Fidel Paige WBC 4.9 103/ul Normal 4.0-11.0 [facility] Comment on above: Performed By: #### C BC #### [facility] [address] [place] [address] Dr. Fidel Paige MAGNESIUMon 06-09-2022 Magnesium [Mass/Vol] 2.0 mg/dL Normal 1.8-2.4 [facility] Comment on above: Performed By: #### T SH, MG, BMP #### [facility] [address] [place] [address] [address] Fidel Paige PROF CHEM 8 (BAS METB)on Anion gap [Moles/Vol] 8.2 mmol/L Normal [facility] Comment on above: Performed By: #### T SH, MG, BMP #### [facility] [address] [place] [address] Dr. Fidel Paige Calcium [Mass/Vol] 10.2 mg/dL Critically high 8.5-10.1 [facility] Comment on above: Performed By: #### T BEATRIS MG, BMP #### [facility] [address] [place] [address] Dr. Fidel Paige Chloride [Moles/Vol] 105 mmol/L Normal 98-107 [facility] Comment on above: Performed By: #### T BEATRIS MG, BMP #### [facility] [address] [place] [address] [address] Fidel Paige CO2 [Moles/Vol] 29.6 mmol/L Normal 21.0-32.0 [facility] Comment on above: Performed By: #### T BEATRIS MG, BMP #### [facility] [address] [place] [address] Dr. Fidel Paige Creatinine [Mass/Vol] 0.81 mg/dL Normal 0.70-1.30 [facility] Comment on above: Performed By: #### T BEATRIS MG, BMP #### [facility] [address] [place] [address] Dr. Fidel Paige EGFR-AF LIBERIAN >60 Normal >=60 [facility] Comment on above: Performed By: #### T BEATRIS MG, BMP #### [facility] [address] [place] [address] Dr. Fidel Paige EGFR-NON AF LIBERIAN >60 Normal >=60 [facility] Comment on above: Performed By: #### T EBATRIS MG, BMP #### [facility] [address] [place] [address] Dr. Fidel Paige Glucose [Mass/Vol] 100 mg/dL Normal 74-106 [facility] Comment on above: Performed By: #### T BEATRIS MG, BMP #### [facility] [address] [place] [address] Dr. Fidel Paige Potassium [Moles/Vol] 3.8 mmol/L Normal 3.5-5.1 [facility] Comment on above: Performed By: #### T BEATRIS MG, BMP #### [facility] [address] [place] [address] Dr. Fidel Paige Sodium [Moles/Vol] 139 mmol/L Normal 136-145 [facility] Comment on above: Performed By: #### T SH, MG, BMP #### [facility] [address] [place] [address] Dr. Fidel Paige Urea nitrogen [Mass/Vol] 12.0 mg/dL Normal 7.0-18.0 [facility] Comment on above: Performed By: #### T SH, MG, BMP #### [facility] [address] [place] [address] Dr. Fidel Paige Urea nitrogen/Creatinine [Mass ratio] 14.8 mg/mg Normal [facility] Comment on above: Performed By: #### T SH, MG, BMP #### [facility] [address] [place] [address] Dr. Fidel Paige TSHon 06-09-2022 TSH 0.891 uIU/mL Normal 0.358-3.[address] [facility] Comment on above: Performed By: #### T SH, MG, BMP #### [facility] [address] [place] [address] Dr. Fidel Paige CBC AUTO DIFFon 02-07-2022 BASO # 0.0 103/ul Normal 0.0-0.1 [facility] Comment on above: Performed By: #### T SH, BMP, LIPID, ALT #### [facility] [address] [place] [address] Dr. Fidel Paige Basophils/100 WBC (Bld) 0.3 % Normal 0.2-2.0 [facility] Comment on above: Performed By: #### T SH, BMP, LIPID, ALT #### [facility] [address] [place] [address] Dr. Fidel Paige EO # 0.1 103/ul Normal 0.0-0.7 [facility] Comment on above: Performed By: #### T SH, BMP, LIPID, ALT #### [facility] [address] [place] [address] Dr. Fidel Paige Eosinophils/100 WBC (Bld) 2.1 % Normal 0.9-7.0 [facility] Comment on above: Performed By: #### T SH, BMP, LIPID, ALT #### [facility] [address] [place] [address] Dr. Fidel Paige Erythrocyte distribution width (RBC) [Ratio] 13.1 % Normal 11.0-15.0 [facility] Comment on above: Performed By: #### T SH, BMP, LIPID, ALT #### [facility] [address] [place] [address] Dr. Fidel Paige Hematocrit (Bld) [Volume fraction] 45.2 % Normal 42.0-54.0 [facility] Comment on above: Performed By: #### T SH, BMP, LIPID, ALT #### [facility] [address] [place] [address] Dr. Fidel Paige Hemoglobin (Bld) [Mass/Vol] 14.8 g/dL Normal 14.0-18.0 [facility] Comment on above: Performed By: #### T SH, BMP, LIPID, ALT #### [facility] [address] [place] [address] Dr. Fidel Paige IG # 0.02 10e3/ul Normal 0.00-0.03 [facility] Comment on above: Performed By: #### T SH, BMP, LIPID, ALT #### [facility] [address] [place] [address] Dr. Fidel Paige IG % 0.3 % Normal 0.0-0.5 [facility] Comment on above: Performed By: #### T SH, BMP, LIPID, ALT #### [facility] [address] [place] [address] Dr. Fidel Paige LYMPH # 1.4 103/ul Normal 1.2-3.8 [facility] Comment on above: Performed By: #### T SH, BMP, LIPID, ALT #### [facility] [address] [place] [address] Dr. Fidel Paige Lymphocytes/100 WBC (Bld) 23.2 % Normal 20.5-60.0 [facility] Comment on above: Performed By: #### T SH, BMP, LIPID, ALT #### [facility] [address] [place] [address] Dr. Fidel Paige MANUAL DIFF REQ NO Normal [facility] Comment on above: Performed By: #### T SH, BMP, LIPID, ALT #### [facility] [address] [place] [address] Dr. Fidel Paige MCH (RBC) [Entitic mass] 31.6 pg Normal 25.9-34.0 [facility] Comment on above: Performed By: #### T SH, BMP, LIPID, ALT #### [facility] [address] [place] [address] Dr. Fidel Paige MCHC (RBC) [Mass/Vol] 32.7 g/dL Normal 29.9-35.2 [facility] Comment on above: Performed By: #### T SH, BMP, LIPID, ALT #### [facility] [address] [place] [address] Dr. Fidel Paige MCV (RBC) [Entitic vol] 96.6 fL Critically high 80.0-94 .0 [facility] Comment on above: Performed By: #### T SH, BMP, LIPID, ALT #### [facility] [address] [place] [address] Dr. Fidel Paige MONO # 0.7 103/ul Normal 0.3-0.8 [facility] Comment on above: Performed By: #### T SH, BMP, LIPID, ALT #### [facility] [address] [place] [address] Dr. Fidel Paige Monocytes/100 WBC (Bld) 11.7 % Normal 1.7-12.0 [facility] Comment on above: Performed By: #### T SH, BMP, LIPID, ALT #### [facility] [address] [place] [address] Dr. Fidel Paige NEUT # 3.6 103/ul Normal 1.4-6.5 [facility] Comment on above: Performed By: #### T SH, BMP, LIPID, ALT #### [facility] [address] [place] [address] Dr. Fidel Paige Neutrophils/100 WBC (Bld) 62.4 % Normal 43.0-75.0 [facility] Comment on above: Performed By: #### T SH, BMP, LIPID, ALT #### [facility] [address] [place] [address] [address] Fidel Paige Platelet mean volume (Bld) [Entitic vol] 8.8 fL Critically low 9.5-13.5 [facility] Comment on above: Performed By: #### T SH, BMP, LIPID, ALT #### [facility] [address] [place] [address] [address] Fidel Paige PLT 283 103/ul Normal 150-450 [facility] Comment on above: Performed By: #### T SH, BMP, LIPID, ALT #### [facility] [address] [place] [address] Dr. Fidel Paige RBC 4.68 106/ul Critically low 4.70-6.10 [facility] Comment on above: Performed By: #### T SH, BMP, LIPID, ALT #### [facility] [address] [place] [address] Dr. Fidel Paige WBC 5.8 103/ul Normal 4.0-11.0 [facility] Comment on above: Performed By: #### T SH, BMP, LIPID, ALT #### [facility] [address] [place] [address] Dr. Fidel Paige LIPID PROFILEon 02-07-2022 CHOL-HDL RATIO NORM SEE BELOW Normal [facility] Comment on above: Result Comment: 3.3 - 4.4 LOW RISK 4.4 - 7.1 AVERAGE RISK 7.1 - 11.0 MODERATE RISK >11.0 HIGH RISK Performed By: #### T SH, BMP, LIPID, ALT #### [facility] [address] [place] [address] Dr. Fidel Paige Cholesterol [Mass/Vol] 191 mg/dL Normal <=200 [facility] Comment on above: Performed By: #### T SH, BMP, LIPID, ALT #### [facility] [address] [place] [address] Dr. Fidel Paige Cholesterol in HDL [Mass/Vol] 42 mg/dL Normal 40-60 [facility] Comment on above: Performed By: #### T SH, BMP, LIPID, ALT #### [facility] [address] [place] [address] [address] Fidel Paige Cholesterol in LDL [Mass/Vol] 118.0 mg/dL Normal [facility] Comment on above: Performed By: #### T SH, BMP, LIPID, ALT #### [facility] [address] [place] [address] [address] Fidel Paige Cholesterol.total/Choles terol in HDL [Mass ratio] 4.5 {ratio} Normal [facility] Comment on above: Performed By: #### T SH, BMP, LIPID, ALT #### [facility] [address] [place] [address] [address] Fidel Paige HDL NORMAL > or = 60 mg/dl - LO W CARDIOVASCULAR RISK <40 mg/dl - HIGH CARDIOVASCULAR RISK Normal [facility] Comment on above: Performed By: #### T SH, BMP, LIPID, ALT #### [facility] [address] [place] [address] [address] Fidel Paige LDL CALC NORMAL SEE BELOW Normal [facility] Comment on above: Result Comment: <100 mg/dl OPTIMAL 100 - 129 mg/dl NEAR OR ABOVE OPTIMAL 130 - 159 mg/dl BORDERLINE HIGH 160 - 189 mg/dl HIGH >190 mg/dl VERY HIGH Performed By: #### T SH, BMP, LIPID, ALT #### [facility] [address] [place] [address] [address] Fidel Paige Triglyceride [Mass/Vol] 155 mg/dL Critically high <=150 [facility] Comment on above: Performed By: #### T SH, BMP, LIPID, ALT #### [facility] [address] [place] [address] [address] Fidel Paige VLDL CALC 31.0 mg/dL Normal [facility] Comment on above: Performed By: #### T SH, BMP, LIPID, ALT #### [facility] [address] [place] [address] [address] Fidel Paige PROF CHEM 8 (BAS METB)on Anion gap [Moles/Vol] 11.0 mmol/L Normal [facility] Comment on above: Performed By: #### T SH, BMP, LIPID, ALT #### [facility] [address] [place] [address] [address] Fidel Paige Calcium [Mass/Vol] 10.1 mg/dL Normal 8.5-10.1 [facility] Comment on above: Performed By: #### T SH, BMP, LIPID, ALT #### [facility] [address] [place] [address] Dr. Fidel Paige Chloride [Moles/Vol] 105 mmol/L Normal 98-107 [facility] Comment on above: Performed By: #### T SH, BMP, LIPID, ALT #### [facility] [address] [place] [address] Dr. Fidel Paige CO2 [Moles/Vol] 29.0 mmol/L Normal 21.0-32.0 [facility] Comment on above: Performed By: #### T SH, BMP, LIPID, ALT #### [facility] [address] [place] [address] Dr. Fidel Paige Creatinine [Mass/Vol] 0.85 mg/dL Normal 0.70-1.30 [facility] Comment on above: Performed By: #### T SH, BMP, LIPID, ALT #### [facility] [address] [place] [address] Dr. Fidel Paige EGFR-AF LIBERIAN >60 Normal >=60 [facility] Comment on above: Performed By: #### T SH, BMP, LIPID, ALT #### [facility] [address] [place] [address] Dr. Fidel Paige EGFR-NON AF LIBERIAN >60 Normal >=60 [facility] Comment on above: Performed By: #### T SH, BMP, LIPID, ALT #### [facility] [address] [place] [address] Dr. Fidel Paige Glucose [Mass/Vol] 101 mg/dL Normal 74-[address] [facility] Comment on above: Performed By: #### T SH, BMP, LIPID, ALT #### [facility] [address] [address] [address] Fidel Paige Potassium [Moles/Vol] 4.0 mmol/L Normal 3.5-5.1 [facility] Comment on above: Performed By: #### T SH, BMP, LIPID, ALT #### [facility] [address] [address] [address] Fidel Paige Sodium [Moles/Vol] 141 mmol/L Normal 136-145 [facility] Comment on above: Performed By: #### T SH, BMP, LIPID, ALT #### [facility] [address] [place] [address] Dr. Fidel Paige Urea nitrogen [Mass/Vol] 13.0 mg/dL Normal 7.0-18.0 [facility] Comment on above: Performed By: #### T SH, BMP, LIPID, ALT #### [facility] [address] [place] [address] Dr. Fidel Paige Urea nitrogen/Creatinine [Mass ratio] 15.3 mg/mg Normal [facility] Comment on above: Performed By: #### T SH, BMP, LIPID, ALT #### [facility] [address] [place] [address] Dr. Fidel Paige [facility] 02-07-2022 ALT [Catalytic activity/Vol] 26 U/L Normal 16-63 [facility] Comment on above: Performed By: #### T SH, BMP, LIPID, ALT #### [facility] [address] [place] [address] Dr. Fidel Paige TSHon 02-07-2022 TSH 0.856 uIU/mL Normal 0.358-3.[address] [facility] Comment on above: Performed By: #### T SH, BMP, LIPID, ALT #### [facility] [address] [place] [address] Dr. Fidel Paige XR CHEST 2V FRONTAL/LATon [facility] US VENOUS DOPPLER L Cristian [...] by: TIFFANY GUPTA Date: 2021-10-10 12:51 Normal [facility] Vital Signs Date Time Vital Sign Value Performing Clinician Facility 01-03-2025 17:040 Body height 185.42 cm Alvin Ball DO Work Phone: [facility] 01-03-2025 17:040 Body mass index (BMI) [Ratio] 35.5 kg/m2 Alvin Ball DO Work Phone: [facility] 01-03-2025 17:040 Body weight 122.07 kg Alvin Ball DO Work Phone: [facility] 01-03-2025 17:26-0400 Diastolic blood pressure 88 mm[Hg] Alvin Ball DO Work Phone: [facility] 01-03-2025 17:26-0400 Heart rate 72 /min Alvin Ball DO Work Phone: [facility] 01-03-2025 17:26-0400 SaO2% (BldA) [Mass fraction] 96 % Alvin Ball DO Work Phone: [facility] 01-03-2025 17:26-0400 Systolic blood pressure 144 mm[Hg] Alvin Ball DO Work Phone: [facility] 12-13-2024 15:19-0400 Body height 185.42 cm Alvin Ball DO Work Phone: [facility] 12-13-2024 15:19-0400 Body mass index (BMI) [Ratio] 35.9 kg/m2 Alvin Ball DO Work Phone: [facility] 12-13-2024 15:19-0400 Body weight 123.43 kg Alvin Ball DO Work Phone: [facility] 12-13-2024 15:19-0400 Diastolic blood pressure 76 mm[Hg] Alvin Ball DO Work Phone: [facility] 12-13-2024 15:19-0400 Heart rate 71 /min Alvin Ball DO Work Phone: [facility] 12-13-2024 15:19-0400 Respiratory rate 12 /min Alvin Ball DO Work Phone: [facility] 12-13-2024 15:19-0400 Systolic blood pressure 131 mm[Hg] Alvin Ball DO Work Phone: [facility] 11-01-2024 09:07-0400 Body height 188 cm Pacc 6 Work Phone: [facility] 11-01-2024 09:07-0400 Body mass index (BMI) [Ratio] 34.02 kg/m2 Pacc 6 Work Phone: [facility] 11-01-2024 09:07-0400 Body temperature 97.59 [degF] Pacc 6 Work Phone: [facility] 11-01-2024 09:07-0400 Body weight 120.2 kg Pacc 6 Work Phone: [facility] 11-01-2024 09:07-0400 Diastolic blood pressure 79 mm[Hg] Pacc 6 Work Phone: [facility] 11-01-2024 09:07-0400 Heart rate 62 /min Pacc 6 Work Phone: [facility] 11-01-2024 09:07-0400 SaO2% (BldA) [Mass fraction] 96 % Pacc 6 Work Phone: [facility] 11-01-2024 09:07-0400 Systolic blood pressure 145 mm[Hg] Pacc 6 Work Phone: [facility] 09-15-2024 11:53-0400 Body height 185.42 cm [facility] 09-15-2024 11:53-0400 Body mass index (BMI) [Ratio] 35.2 kg/m2 [facility] 09-15-2024 11:53-0400 Body weight 121.22 kg [facility] 09-15-2024 11:53-0400 Diastolic blood pressure 81 mm[Hg] [facility] 09-15-2024 11:53-0400 Diastolic blood pressure 89 mm[Hg] Alvin Ball DO Work Phone: [facility] 09-15-2024 11:53-0400 Heart rate 73 /min [facility] 09-15-2024 11:53-0400 Respiratory rate 12 /min [facility] 09-15-2024 11:53-0400 SaO2% (BldA) [Mass fraction] 95 % [facility] 09-15-2024 11:53-0400 Systolic blood pressure 146 mm[Hg] [facility] 09-15-2024 11:53-0400 Systolic blood pressure 139 mm[Hg] Alvin Ball DO Work Phone: [facility] 09-13-2024 11:05-0400 Body height 189.2 cm Geneva Butler MD Work Phone: [facility] 09-13-2024 11:05-0400 Body mass index (BMI) [Ratio] 34.42 kg/m2 Geneva Butler MD Work Phone: [facility] 09-13-2024 11:05-0400 Body weight 123.2 kg Geneva Butler MD Work Phone: [facility] 09-13-2024 11:05-0400 Diastolic blood pressure 63 mm[Hg] Geneva Butler MD Work Phone: [facility] 09-13-2024 11:05-0400 Heart rate 75 /min Geneva Butler MD Work Phone: [facility] 09-13-2024 11:05-0400 Systolic blood pressure 124 mm[Hg] Geneva Butler MD Work Phone: [facility] 08-30-2024 11:42-0400 Body height 185.42 cm [facility] 08-30-2024 11:42-0400 Body mass index (BMI) [Ratio] 34.4 kg/m2 [facility] 08-30-2024 11:42-0400 Body weight 118.44 kg [facility] 08-30-2024 11:42-0400 Diastolic blood pressure 70 mm[Hg] [facility] 08-30-2024 11:42-0400 Heart rate 80 /min [facility] 08-30-2024 11:42-0400 Respiratory rate 12 /min [facility] 08-30-2024 11:42-0400 Systolic blood pressure 135 mm[Hg] [facility] 08-16-2024 15:05-0400 Body mass index (BMI) [Ratio] 33.95 kg/m2 Herber Donald MD Work Phone: [facility] 08-16-2024 15:05-0400 Body weight 123.2 kg Herber Donald MD Work Phone: [facility] 08-16-2024 15:05-0400 Diastolic blood pressure 70 mm[Hg] Herber Donald MD Work Phone: [facility] 08-16-2024 15:05-0400 Heart rate 64 /min Herber Donald MD Work Phone: [facility] 08-16-2024 15:05-0400 Systolic blood pressure 127 mm[Hg] Herber Donald MD Work Phone: [facility] 04-27-2024 15:30-0500 Body height 185.42 cm [facility] 04-27-2024 15:30-0500 Body mass index (BMI) [Ratio] 34.3 kg/m2 [facility] 04-27-2024 15:30-0500 Body weight 118.16 kg [facility] 04-27-2024 15:30-0500 Diastolic blood pressure 79 mm[Hg] [facility] 04-27-2024 15:30-0500 Heart rate 72 /min [facility] 04-27-2024 15:30-0500 Respiratory rate 20 /min [facility] 04-27-2024 15:30-0500 Systolic blood pressure 135 mm[Hg] [facility] 04-05-2024 13:44-0500 Body height 189.2 cm Amanda Moon DO Work Phone: [facility] 04-05-2024 13:44-0500 Body mass index (BMI) [Ratio] 31.92 kg/m2 Amanda Moon DO Work Phone: [facility] 04-05-2024 13:44-0500 Body weight 114.31 kg Amanda Moon DO Work Phone: [facility] 04-05-2024 13:44-0500 Diastolic blood pressure 86 mm[Hg] Amanda Moon DO Work Phone: [facility] 04-05-2024 13:44-0500 Heart rate 63 /min Amanda Moon DO Work Phone: [facility] 04-05-2024 13:44-0500 SaO2% (BldA) [Mass fraction] 97 % Amanda Moon DO Work Phone: [facility] 04-05-2024 13:44-0500 Systolic blood pressure 142 mm[Hg] Amanda Moon DO Work Phone: [facility] 03-11-2024 11:25-0500 Body mass index (BMI) [Ratio] 34 kg/m2 [facility] 03-11-2024 11:25-0500 Diastolic blood pressure 89 mm[Hg] [facility] 03-11-2024 11:25-0500 Systolic blood pressure 139 mm[Hg] [facility] 03-11-2024 11:04-0500 Body height 185.42 cm [facility] 03-11-2024 11:04-0500 Body weight 116.8 kg [facility] 03-11-2024 11:04-0500 Heart rate 74 /min [facility] 03-11-2024 11:04-0500 Respiratory rate 12 /min [facility] 02-22-2024 10:41-0500 Body height 189.2 cm Amanda Moon DO Work Phone: [facility] 02-22-2024 10:41-0500 Body mass index (BMI) [Ratio] 32.18 kg/m2 Amanda Moon DO Work Phone: [facility] 02-22-2024 10:41-0500 Body weight 115.21 kg Amanda Moon DO Work Phone: [facility] 02-22-2024 10:41-0500 Diastolic blood pressure 86 mm[Hg] Amanda Moon DO Work Phone: [facility] 02-22-2024 10:41-0500 Heart rate 88 /min Amanda Moon DO Work Phone: [facility] 02-22-2024 10:41-0500 SaO2% (BldA) [Mass fraction] 99 % Amanda Moon DO Work Phone: [facility] 02-22-2024 10:41-0500 Systolic blood pressure 142 mm[Hg] Amanda Moon DO Work Phone: [facility] 12-03-2023 11:04-0400 Body height 185.42 cm [facility] 12-03-2023 11:04-0400 Body mass index (BMI) [Ratio] 33.8 kg/m2 [facility] 12-03-2023 11:04-0400 Body weight 116.28 kg [facility] 12-03-2023 11:04-0400 Diastolic blood pressure 86 mm[Hg] [facility] 12-03-2023 11:04-0400 Heart rate 71 /min [facility] 12-03-2023 11:04-0400 Respiratory rate 12 /min [facility] 12-03-2023 11:04-0400 Systolic blood pressure 130 mm[Hg] [facility] Encounters Encounter Date Encounter Type Care Provider Facility Start: 01-03-2025 End: 01-03-2025 ambulatory Alvin Ball DO Work Phone: [facility] Work Phone: Start: 01-03-2025 End: 01-03-2025 Patient encounter procedure Amanda Mustafa [facility] Work Phone: Start: 12-13-2024 End: 12-13-2024 ambulatory Alvin Lo DO Work Phone: [facility] Work Phone: Start: 12-13-2024 End: 12-13-2024 Patient encounter procedure Alvin Lo DO -[facility] Work Phone: Start: 12-05-2024 Non-patient / Non-visit Jeffrey gil Patrick [employer] -[facility] Work Phone: Start: 12-03-2024 Non-patient / Non-visit Foreign [facility] Work Phone: Start: 11-29-2024 End: 11-29-2024 Admission to same day surgery center Geneva Butler MD Work Phone: Endocrine Surgery Comment on above: Hyperparathyroidism (HCC) (Primary Dx) Start: 11-29-2024 End: 11-29-2024 Telemedicine consultation with patient Geneva Butler MD Work Phone: Endocrine Surgery Start: 11-29-2024 End: 11-29-2024 ambulatory GENEVA BUTLER Facility:[facility] Start: 11-22-2024 Non-patient / Non-visit Alvin gonzalez [facility] Work Phone: Start: 11-18-2024 End: 11-18-2024 Telephone encounter Geneva Butler MD Work Phone: Endocrine Surgery Comment on above: Post Op Start: 11-15-2024 [facility] Start: 11-15-2024 Non-patient / Non-visit [facility] [place] [facility] Work Phone: Start: 11-14-2024 End: 11-15-2024 ambulatory ALVIN Sow TERESITA Facility:[facility] Start: 11-01-2024 ambulatory GENEVA BUTLER Facility:[facility] Start: 11-01-2024 End: 11-01-2024 Subsequent hospital visit by physician [employer] Work Phone: Molecular Imaging Comment on above: Hyperparathyroidism (HCC) [E21.3] Start: 11-01-2024 Non-patient / Non-visit Geneva Butler MD -[facility] Work Phone: Start: 11-01-2024 End: 11-01-2024 ambulatory ALVIN Sow TERESITA Facility:[facility] Start: 11-01-2024 ambulatory GENEVA BUTLER Facility:[facility] Start: 11-01-2024 End: 11-01-2024 Subsequent hospital visit [...] Start: 11-01-2024 End: 11-01-2024 ambulatory ALVIN LO Facility:[facility] Start: 10-25-2024 End: 10-25-2024 ambulatory [facility] Start: 10-19-2024 End: 10-19-2024 ambulatory ALVIN Sow TERESITA Facility:[facility] Start: 10-04-2024 End: 10-10-2024 Telephone encounter Geneva Butler MD Work Phone: Endocrine Surgery Comment on above: [place] Parathyroid Reque st Start: 09-15-2024 End: 09-15-2024 ambulatory [facility] Work Phone: Start: 09-15-2024 End: 09-15-2024 Patient encounter procedure [facility] ys[facility] Work Phone: Start: 09-13-2024 End: 09-13-2024 Patient encounter procedure Geneva Butler MD Work Phone: Endocrine Surgery Comment on above: Hyperparathyroidism (HCC) (Primary Dx) Start: 09-13-2024 End: 09-13-2024 ambulatory GENEVA BUTLER Facility:[facility] Start: 09-06-2024 ambulatory [facility] Start: 08-30-2024 End: 08-30-2024 ambulatory [facility] Work Phone: Start: 08-30-2024 End: 08-30-2024 Patient encounter procedure [facility] ysician [facility] Work Phone: Start: 08-25-2024 Non-patient / Non-visit [facility] Phys[facility] Work Phone: Start: 08-25-2024 Non-patient / Non-visit [facility] Physician [facility] Work Phone: Start: 08-24-2024 Non-patient / Non-visit [facility] Work Phone: Start: 08-23-2024 Non-patient / Non-visit [facility] Phys[facility] Work Phone: Start: [...] (FACE SHEET) Start: 08-16-2024 Non-patient / Non-visit [facility] Physician [facility] Work Phone: Start: 08-16-2024 End: 08-16-2024 Patient encounter procedure Herber Donald MD Work Phone: Endocrinology Comment on above: Primary hyperparathy roidism (HCC) (Primary Dx); Hypercalcemia Start: 08-16-2024 End: 08-16-2024 ambulatory HERBER DONALD Facility:[facility] Start: 07-18-2024 Non-patient / Non-visit [facility] Physician [facility] Work Phone: Start: 07-08-2024 End: 07-08-2024 [facility] Start: 07-07-2024 Non-patient / Non-visit [facility] Physician [facility] Work Phone: Start: 07-04-2024 End: 07-04-2024 ambulatory ARLENE DEGROOT Not Available Start: 07-01-2024 ambulatory [facility] Start: 06-14-2024 End: 06-14-2024 ambulatory [facility] Start: 05-03-2024 ambulatory [facility] Start: 04-27-2024 End: 04-27-2024 ambulatory [facility] Work Phone: Start: 04-27-2024 End: 04-27-2024 [facility] Start: 04-07-2024 End: 04-07-2024 Clinisync Result Encounter Amanda Mustafa DO Work Phone: [facility] External Department Unsolicited Start: 04-07-2024 End: 04-07-2024 Clinisync Result Encounter Amanda Mustafa DO Work Phone: [facility] External Department Unsolicited Start: 04-07-2024 Non-patient / Non-visit [facility] Physician [facility] Work Phone: Start: 04-05-2024 End: 04-05-2024 Bamboo flowsheet Amanda Mustafa DO Work Phone: [facility] [employer] [address] Start: 04-05-2024 End: 04-05-2024 Bamboo flowsheet Amanda Mustafa DO Work Phone: [employer] [address] Start: 04-05-2024 End: 04-05-2024 Office outpatient visit 25 minutes Amanda Mustafa DO Work Phone: [employer] Comment on above: Idiopathic periphera l neuropathy (Primary Dx); Numbness and tingling; 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 Start: 03-11-2024 End: 03-11-2024 Patient encounter procedure [facility] ysician [facility] Work Phone: Start: 03-10-2024 Non-patient / Non-visit [facility] Physician [facility] Work Phone: Start: 03-10-2024 Patient encounter procedure [facility] Start: 03-07-2024 ambulatory [facility] Start: 03-02-2024 Non-patient / Non-visit [facility] Physician [facility] Work Phone: Start: 02-24-2024 End: 02-24-2024 ambulatory AMANDA MOON Not Available Start: 02-24-2024 End: 02-24-2024 Patient encounter procedure Amanda Moon DO Work Phone: [facility] Comment on above: Idiopathic periphera l neuropathy Start: 02-22-2024 End: 02-22-2024 Bamboo flowsheet Amanda Moon DO Work Phone: [facility] Start: 02-22-2024 End: 02-22-2024 Bamboo flowsheet Amanda Moon DO Work Phone: [facility] Start: 02-22-2024 End: 02-22-2024 ambulatory AMANDA MOON Not Available Start: 02-22-2024 End: 02-22-2024 Office outpatient new 45 minutes Amanda Moon DO Work Phone: [facility] Comment on above: Idiopathic periphera l neuropathy (Primary Dx); 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; Weakness; Numbness and tingling Start: 02-11-2024 ambulatory [facility] Start: 02-02-2024 ambulatory [facility] Start: 01-21-2024 ambulatory TEE NAGY [facility] Start: 12-09-2023 End: 12-09-2023 ambulatory [facility] Start: 12-03-2023 End: 12-03-2023 ambulatory [facility] Work Phone: Start: 12-03-2023 End: 12-03-2023 Patient encounter procedure [facility]ician [facility] Work Phone: Start: 12-01-2023 Non-patient / Non-visit [facility] [employer] Work Phone: Start: 06-04-2023 End: 06-04-2023 ambulatory Alvin Lo Other [place] [employer] Other Start: 06-04-2023 Encounter by computer link Alvin ZIMMER [facility] Start: 05-29-2023 End: 05-29-2023 ambulatory Alvin Lo Other [place] [employer] Other Start: 05-29-2023 Telephone encounter Alvin Lo FP G [facility] Start: 01-13-2023 End: 01-14-2023 ambulatory HARESH PINEDA Facility:[facility] Start: 01-12-2023 Orders Only Haresh Pineda [...] #### T SH, BMP, LIPID, ALT #### [facility] [address] [address] [address] Fidel Paige Start: 11-05-2021 Radiologic exam ches t 2 views Eric Taylor APRN.[employer] Work Phone: Start: 11-05-2021 Radiologic examinati on tibia & fibula 2 views Eric Taylor APRN.JULIETH Work Phone: Start: 06-30-2019 Adult depression scr eening assessment Haresh Pineda MD Work Phone: Plan of Treatment Date Care Activity Detail Author Start: 11-02-2027 Diabetes Screening Diabetes Screening [facility] Start: 10-02-2026 Urine microalbumin profile DTaP,Tdap,Td Vaccine (3 - Tdap) [facility] Start: 09-13-2025 BP Controlled (<130/80) BP Controlled (<130/80) [facility] Start: 08-16-2025 BP Controlled (<130/80) BP Controlled (<130/80) [facility] Start: 02-28-2025 End: 02-28-2025 Patient encounter procedure 02/28/2025 2:20 PM EST Office Visit Endocrinology [address] [place], [place] [id number] Herber Donald MD [address] [place] [address] [place] [address] Return in about 6 months (around 02/15/2025). Endocrinology Comment on above: Return in about 6 months (around 025). Start: 02-16-2025 End: 05-18-2025 25-hydroxyvitamin D3 [Mass/volume] in Serum or Plasma VITAMIN D 25 HYDROXY Lab Routine Primary hyperparathyroidism (HCC) Expected: 02/16/2025, Expires: 05/18/2025 [facility] Comment on above: Expected: 02/16/2025, Expires: Start: 02-16-2025 End: 05-18-2025 Parathyrin.intact [Mass/volume] in Serum or Plasma PTH INTACT Lab Routine Primary hyperparathyroidism (HCC) Expected: 02/16/2025, Expires: 05/18/2025 [facility] Comment on above: Expected: 02/16/2025, Expires: Start: 02-16-2025 End: 05-18-2025 Renal function 2000 panel - Serum or Plasma RENAL FUNCTION PANEL Lab Routine Primary hyperparathyroidism (HCC) Expected: 02/16/2025, Expires: 05/18/2025 [facility] Work Phone: Comment on above: Expected: 02/16/2025, Expires: Start: 02-12-2025 Screening for malignant neoplasm of colon [facility] Start: 12-19-2024 Influenza [facility] Start: 11-29-2024 End: 11-29-2024 Admission to same day surgery center 11/29/2024 2:20 PM EDT [facility] [address] [place], [place] [id number] Geneva Butler MD [address] [phone] post op Endocrine Surgery Comment on above: post op Start: 11-14-2024 End: 11-14-2024 Admission to same day surgery center 11/14/2024 7:30 AM EDT - 11/14/2024 9:15 AM EDT Surgery [facility] Surgery [address] [place] [id number] Geneva Butler MD [address] [phone] PARATHYROIDECTOMY [facility] Surgery Comment on above: PARATHYROIDECTOMY Start: 11-14-2024 End: 11-14-2024 Parathyroidectomy/explorat ion parathyroids PARATHYROIDECTOMY Hyperparathyroidism (HCC) 11/14/2024 7:30 AM EDT MM OR Start: 11-14-2024 Subsequent hospital visit by physician 11/14/2024 7:30 AM EDT Hospital Encounter [facility] Surgery [address] [place] [id number] Geneva Butler MD [address] [place] [address] Hyperparathyroidism (HCC) [E21.3] [facility] Surgery Comment on above: Hyperparathyroidism (HCC) [E21.3] Start: 11-01-2024 End: 11-01-2024 Patient encounter procedure 11/01/2024 1:30 PM EDT Appointment Molecular Imaging [address] [id number] NM PARATHYROID W SPECTCT Molecular Imaging Comment on above: NM PARATHYROID W SPECTCT Start: 11-01-2024 End: 11-01-2024 ambulatory Cardiology Comment on above: pre-op Start: 11-01-2024 End: 11-01-2024 Patient encounter procedure 11/01/2024 10:30 AM EDT Appointment Molecular Imaging [address] [place], [place] [id number] NM PARATHYROID W SPECTCT Molecular Imaging Comment on above: NM PARATHYROID W SPECTCT Start: 11-01-2024 End: 11-01-2024 Anesthesia consultation 11/01/2024 9:00 AM EDT PAT Pre Anesthesia [address] [place] [address] 6, Pacc Main [address] [id number] pre-op Pre Anesthesia Comment on above: pre-op Start: 09-13-2024 End: 09-13-2024 Patient encounter procedure 09/13/2024 12:20 PM EDT Office Visit Endocrine Surgery [address] [id number] Geneva Butler MD [address] [place] [address] Pt okay to check-in at 11AM. [facility] Comment on above: Pt okay to check-in at 11AM. [facility] Start: 08-23-2024 End: 08-23-2024 Patient encounter procedure 08/23/2024 12:20 PM EDT Office Visit Endocrine Surgery [address] [id number] Geneva Butler MD [address] [place] [address] INTAKE PENDING-HYPERPARATHRYOIDIS M Endocrine Surgery Comment on above: INTAKE PENDING-HYPERPARATHRYOIDISM Start: 08-17-2024 End: 11-16-2024 Calcitriol [Mass/volume] in Serum or Plasma [facility] Comment on above: Expected: 08/17/2024 (Approximate), Expi res: 11/16/2024 Start: 08-17-2024 End: 11-16-2024 Calcium.ionized [Moles/volume] in Blood CALCIUM, IONIZED Lab Routine Hyperparathyroidism (HCC) Expected: 08/17/2024 (Approximate), Expires: 11/16/2024 [facility] Work Phone: Comment on above: Expected: 08/17/2024 (Approximate), Expi res: 11/16/2024 Start: 08-16-2024 End: 11-15-2024 25-hydroxyvitamin D3 [Mass/volume] in Serum or Plasma [facility] Comment on above: Expected: 08/16/2024, Expires: Start: 08-16-2024 End: 11-15-2024 Parathyrin.intact [Mass/volume] in Serum or Plasma [facility] Comment on above: Expected: 08/16/2024, Expires: Start: 08-16-2024 End: 11-15-2024 Renal function 2000 panel - Serum or Plasma [facility] Work Phone: Comment on above: Expected: 08/16/2024, Expires: Start: 07-04-2024 End: 07-04-2024 Patient encounter procedure 07/04/2024 4:00 PM EDT Office Visit [facility] [address] [place] [id number] Arlene Degroot NP [address] [place], [place] [facility] Start: 06-20-2024 Covid-19 Vaccine () Covid-19 Vaccine () [facility] Start: 04-20-2024 Advance Directive Discussion Advance Directive Discussion [facility] Start: 04-05-2024 End: 04-05-2025 Cobalamin (Vitamin B12) [Mass/volume] in Serum or Plasma Vitamin B12 Lab Routine Idiopathic peripheral neuropathy Expected: 04/05/2024 (Approximate), Expires: 04/05/2025 [facility] Comment on above: Expected: 04/05/2024 (Approximate), Expi res: 04/05/2025 Start: 04-05-2024 End: 04-05-2025 Folate [Mass/volume] in Serum or Plasma Folate Lab Routine Idiopathic peripheral neuropathy Expected: 04/05/2024 (Approximate), Expires: 04/05/2025 [facility] Comment on above: Expected: 04/05/2024 (Approximate), Expi res: 04/05/2025 Start: 04-05-2024 End: 04-05-2025 Protein electrophoresis, serum Protein electrophoresis, serum Lab Routine Idiopathic peripheral neuropathy Expected: 04/05/2024 (Approximate), Expires: 04/05/2025 [facility] Comment on above: Expected: 04/05/2024 (Approximate), Expi res: 04/05/2025 Start: 04-05-2024 End: 04-05-2025 Thyrotropin [Units/volume] in Serum or Plasma TSH Lab Routine Idiopathic peripheral neuropathy Expected: 04/05/2024 (Approximate), Expires: 04/05/2025 [facility] Work Phone: Comment on above: Expected: 04/05/2024 (Approximate), Expi res: 04/05/2025 Start: 04-05-2024 End: 04-05-2024 Patient encounter procedure [facility] Comment on above: Arrived Start: 02-24-2024 End: 02-24-2024 Patient encounter procedure 02/24/2024 1:00 PM EST Procedure Visit [facility] [address] [phone] Amanda Mustafa DO [address] [place] [address] [facility] Start: 02-22-2024 End: 02-21-2025 Cobalamin (Vitamin B12) [Mass/volume] in Serum or Plasma Vitamin B12 Lab Routine Idiopathic peripheral neuropathy Expected: 02/22/2024 (Approximate), Expires: 02/21/2025 [facility] Work Phone: Comment on above: Expected: 02/22/2024 (Approximate), Expi res: 02/21/2025 Start: 02-22-2024 End: 02-21-2025 EMG 2 Extremities EMG 2 Extremities Neurology Routine Idiopathic peripheral neuropathy Expected: 02/22/2024 (Approximate), Expires: 02/21/2025 [facility] Comment on above: Expected: 02/22/2024 (Approximate), Expi res: 02/21/2025 Start: 02-22-2024 End: 02-21-2025 Folate [Mass/volume] in Serum or Plasma Folate Lab Routine Idiopathic peripheral neuropathy Expected: 02/22/2024 (Approximate), Expires: 02/21/2025 [facility] Comment on above: Expected: 02/22/2024 (Approximate), Expi res: 02/21/2025 Start: 02-22-2024 End: 02-21-2025 NVC 9-10 Nerves NVC 9-10 Nerves Neurology Routine Idiopathic peripheral neuropathy Expected: 02/22/2024 (Approximate), Expires: 02/21/2025 [facility] Comment on above: Expected: 02/22/2024 (Approximate), Expi res: 02/21/2025 Start: 02-22-2024 End: 02-21-2025 Protein electrophoresis, serum Protein electrophoresis, serum Lab Routine Idiopathic peripheral neuropathy Expected: 02/22/2024 (Approximate), Expires: 02/21/2025 [facility] Comment on above: Expected: 02/22/2024 (Approximate), Expi res: 02/21/2025 Start: 02-22-2024 End: 02-21-2025 Thyrotropin [Units/volume] in Serum or Plasma TSH Lab Routine Idiopathic peripheral neuropathy Expected: 02/22/2024 (Approximate), Expires: 02/21/2025 [facility] Comment on above: Expected: 02/22/2024 (Approximate), Expi res: 02/21/2025 Start: 12-19-2022 Influenza vaccination [facility] Start: 11-05-2022 End: 12-05-2022 Radiologic exam chest 2 views XR CHEST 2V FRONTAL/LAT Radiology Routine Chondrosarcoma (HCC) Expected: 11/05/2022 (Approximate), Expires: 12/05/2022 [facility] Work Phone: Comment on above: Expected: 11/05/2022 (Approximate), Expi res: 12/05/2022 Start: 11-05-2022 End: 12-05-2022 XR TIBIA FIBULA 2V AP/LAT RIGHT XR TIBIA FIBULA 2V AP/LAT RIGHT Radiology Routine Chondrosarcoma (HCC) Expected: 11/05/2022 (Approximate), Expires: 12/05/2022 [facility] Work Phone: Comment on above: Expected: 11/05/2022 (Approximate), Expi res: 12/05/2022 Start: 10-25-2022 DIABETES SCREEN DIABETES SCREEN [facility] Start: 10-25-2022 Diabetes Screening Diabetes Screening [facility] Start: 04-20-2022 ADVANCE DIRECTIVE DISCUSSION ADVANCE DIRECTIVE DISCUSSION [facility] Start: 04-20-2022 DEPRESSION ASSESSMENT DEPRESSION ASSESSMENT [facility] Start: 12-19-2021 Influenza vaccination INFLUENZA (#1) [facility] Start: 11-18-2021 COVID-19 VACCINE (5 - Pfizer series) COVID-19 VACCINE (5 - Pfizer series) [facility] Start: 04-20-2021 ADVANCE DIRECTIVE DISCUSSION ADVANCE DIRECTIVE DISCUSSION [facility] Start: 06-29-2020 Adult depression screening assessment DEPRESSION SCREENING [facility] Start: 01-19-2016 Pneumococcal Vaccine: 50+ (2 of 2 - PCV) Pneumococcal Vaccine: 50+ (2 of 2 - PCV) [facility] Start: 01-19-2016 Pneumococcal Vaccine: 65+ Years (2 of 2 - PCV) Pneumococcal Vaccine: 65+ Years (2 of 2 - PCV) [facility] Start: 2014 Pneumococcal Vaccine: 65+ (1 - PCV) Pneumococcal Vaccine: 65+ (1 - PCV) [facility] Start: 2014 PNEUMOCOCCAL: 65+ (1 - PCV) PNEUMOCOCCAL: 65+ (1 - PCV) [facility] Start: 08-18-2014 Medicare Annual Wellness Visit Medicare Annual Wellness Visit [facility] Start: 09-19-1999 SHINGRIX VACCINE (1 of 2) SHINGRIX VACCINE (1 of 2) [facility] Start: 1994 COLOGUARD (FIT-DNA) COLOGUARD (FIT-DNA) [facility] Start: 1994 Colonoscopy COLONOSCOPY [facility] Start: 1994 COLORECTAL CANCER SCREENING COLORECTAL CANCER SCREENING [facility] Start: [address] COLONOGRAPHY [facility] Start: 1994 FECAL OCCULT BLOOD FECAL OCCULT BLOOD [facility] Start: 1994 Screening for malignant neoplasm of colon [facility] Start: 1994 SIGMOIDOSCOPY SIGMOIDOSCOPY [facility] Start: 1984 Lipid 1996 panel - Serum or Plasma Lipid Screening [facility] Start: 1984 Lipid panel Lipid Screening [facility] Start: 1984 LIPID SCREEN LIPID SCREEN [facility] Start: 1968 Urine microalbumin profile [facility] shira Start: 09-19-1967 ANNUAL PCP TEAM CHRONIC DISEASE VISIT ANNUAL PCP TEAM CHRONIC DISEASE VISIT [facility] Start: 09-19-1967 Anxiety Screening Anxiety Screening [facility] Start: 09-19-1967 BP CONTROLLED (<130/80) BP CONTROLLED (<130/80) [facility] Start: 09-19-1967 Depression Screening Depression Screening [facility] Start: 09-19-1967 HEPATITIS C SCREENING HEPATITIS C SCREENING [facility] Start: 09-19-1967 Hepatitis C screening Hepatitis C Screening [facility] Start: 1949 Screening for malignant neoplasm of colon [facility] CALCIUM, 24 HR URINE CALCIUM, 24 HR URINE Lab Routine Hyperparathyroidism (HCC) Ordered: 08/17/2024 [facility] Comment on above: Ordered: 08/17/2024 CREATININE, 24 HOUR URINE CREATI NINE, 24 HOUR URINE Lab Routine Hyperparathyroidism (HCC) Ordered: 08/17/2024 [facility] Comment on above: Ordered: 08/17/2024 End: 09-16-2025 DXA Skeletal system.axial Views for bone density DXA-AXIAL SKELETON Radiology Routine Hyperparathyroidism (HCC) 1 Occurrences starting 08/17/2024 until 09/16/2025 [facility] Comment on above: 1 Occurrences starting 08/17/2024 until 09/16/2025 End: 09-16-2025 DXA-FOREARM SKELETON DXA-FOREARM SKELETON Radiology Routine Hyperparathyroidism (HCC) 1 Occurrences starting 08/17/2024 until 09/16/2025 [facility] Comment on above: 1 Occurrences starting 08/17/2024 until 09/16/2025 End: 12-17-2023 Radiologic exam chest 2 views XR CHEST 2V FRONTAL/LAT Radiology Routine Chondrosarcoma (HCC) 1 Occurrences starting 11/17/2022 until 12/17/2023 [facility] Work Phone: Comment on above: 1 Occurrences starting 11/17/2022 until 12/17/2023 End: 09-15-2025 SPECT+CT Parathyroid gland NM PARATHYROID W SPECT/CT Radiology Routine Primary hyperparathyroidism (HCC) Hypercalcemia 1 Occurrences starting 08/16/2024 until 09/15/2025 [facility] Comment on above: 1 Occurrences starting 08/16/2024 until 09/15/2025 SPECT+CT Parathyroid gland NM PA RATHYROID W SPECT/CT Radiology Routine Hyperparathyroidism (HCC) 11/01/2024 2:25 PM EDT [facility] Work Phone: US Lower extremity v ein - right [facility] End: 02-11-2024 XR ANKLE GENERAL 3V AP/LAT/OBL LEFT XR ANKLE GENERAL 3V AP/LAT/OBL LEFT Radiology Routine Chronic pain of left ankle 1 Occurrences starting 01/12/2023 until 02/11/2024 [facility] Work Phone: Comment on above: 1 Occurrences starting 01/12/2023 until 02/11/2024 XR Chest 2 Views [facility] End: 12-17-2023 XR TIBIA FIBULA 2V AP/LAT RIGHT XR TIBIA FIBULA 2V AP/LAT RIGHT Radiology Routine Chondrosarcoma (HCC) 1 Occurrences starting 11/17/2022 until 12/17/2023 [facility] Work Phone: Comment on above: 1 Occurrences starting 11/17/2022 until 12/17/2023 XR TIBIA FIBULA 2V A P/LAT RT XR TIBIA FIBULA 2V AP/LAT RT Radiology Routine Chondrosarcoma (HCC) 11/05/2021 2:50 PM EDT [facility] Work Phone: [facility] Immunizations Immunization Date Immunization Notes Care Provider Omar tilley 12-09-2023 influenza virus vaccine, unspecified formulation Alvin Lo DO Work Phone: [facility] 02-10-2022 influenza virus vaccine, split virus (incl. purified surface antigen) Alvin Lo Other [facility] [employer] Other 02-10-2022 influenza virus vaccine, unspecified formulation [facility] 05-29-2020 COVID-19 Vaccine Pfi zer - Documentation Purposes Only Alvin Lo Other [facility] 10-02-2016 diphtheria, tetanus toxoids and acellular pertussis vaccine, unspecified formulation Alvin Lo Other [facility] 03-23-2016 pneumococcal conjuga te vaccine, 13 valent Alvin Lo Other [facility] 03-01-2009 pneumococcal polysaccharide vaccine, 23 valent Alvin Lo Other [facility] 02-25-2006 diphtheria, tetanus toxoids and acellular pertussis vaccine, unspecified formulation Alvin Lo Other [facility] Payers Date Payer Category Payer Medicare MEDICARE MEDICAR E A AND B [id number] 2014-Present [phone] [address] [address] [place] [address] Medicare [id number] 2014 Medicare [id number] 2014 Private Health Insurance [id number] 2014 Unknown 2014 Unknown [employer] 2N D [id number] 2014-Present [phone] [address] [address] [place] [address] Indemnity [id number] 2014 Unknown [id number] 1959 Medicare [id number] 1959 Unknown [id number] 1949 Unknown [id number] 1949 Unknown [id number] 1949 Unknown [id number] 1949 Unknown [id number] 1949 Unknown [id number] 1949 Unknown [id number] 1949 Unknown [id number] Social History Date Type Detail Facility Start: 07-17-2017 End: 11-01-2024 Tobacco smoking status DCIS Never smoked tobacco [facility] Start: 07-17-2017 End: 11-01-2024 Tobacco use and exposure Smokeless tobacco non-user [facility] Start: 1950 Sex Assigned At Male [facility] Start: 10-26-2021 End: 11-05-2021 Exposure to SARS-CoV-2 (event) Not sure [facility] Start: 05-18-2022 End: 01-13-2023 History of Social function [facility] Start: 05-18-2022 End: 01-13-2023 Area Deprivation Index [facility] Start: 06-19-2017 National Score (1-100), lower number is lower risk 60 [facility] Start: 11-23-2019 Sexual orientation Heterosexual (finding) [facility] Tobacco smoking stat us DCIS Tobacco smoking consumption unknown [facility] Start: 1950 Sex assigned at Not on file [facility] Start: 02-22-2024 Tobacco smoking status NHIS Ex-smoker [facility] History of tobacco use Current smoker [facility] History of tobacco use Cigarette Smoker [facility] Start: 04-27-2024 End: 09-15-2024 Sex Male (finding) [facility] History of tobacco use Passive smoker [facility] Start: 11-01-2024 Alcoholic beverage intake Ex-drinker (finding) [facility] Medical Equipment Procedure Code Equipment Code Equipment Origin al Text Equipment Identifier Dates Graft Enhance Demineralized Cortical Fiber Bone Allograft Dehydrate 2.5ml - [id number] Start: 08-27-2017 Graft Cancellous Chips Bone Void Freeze Dry 30ml (1.7-10mm) - [id number] Start: 08-27-2017 Graft Dbx Bone V oid Allograft Freeze Dried Putty 1ml - [id number] Start: 08-27-2017 Tibial Nail [id number] Start: [...] 08/31/2017 4:00 PM Rylee Landon RN No [facility] 08-31-2017 Are you blind, or do you have serious difficulty seeing, even when wearing glasses No 08/31/2017 4:00 PM Rylee Landon RN No [facility] 08-31-2017 Do you have serious difficulty walking or climbing stairs No 08/31/2017 4:00 PM EDRylee Knowles, TIRSO No [facility] 08-31-2017 Do you have difficul ty dressing or bathing No 08/31/2017 4:00 PM EDRylee Knowles, TIRSO No [facility] 08-31-2017 Because of a physica l, mental, or emotional condition, do you have difficulty doing errands alone such as visiting a physician's office or shopping No 08/31/2017 4:00 PM Rylee Landon, TIRSO No [facility] Mental Status Date Assessment Result Facility 08-31-2017 Because of a physica l, mental, or emotional condition, do you have serious difficulty concentrating, remembering, or making decisions No 08/31/2017 4:00 PM Rylee Landon RN No [facility] Clinical Notes 10-10-2021 to 12-13-2024 Note Date & Type Note Facility 12-13-2024 Evaluation note Diagnosis Onset Date Resolution Callus of foot acute November 3:09pm Cellulitis and abscess of toe of right foot acute November 3:09pm Peripheral polyneuropathy acute December 13 3:09pm 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 Author Type: Physician Type: Progress Notes Filed: 11/29/2024 13:02 Note Text: [facility] Endocrinology and Metabolism [place] Department of Endocrine Surgery Geneva Butler M.D. [address] [place] [address] Mr. Bang Sharma's postoperative visit was conducted [...] M.D. CC: Herber Donald M.D. Alvin Lo D.O.[facility]08-12-2025 History of Present illness Narrative* Geneva Butler MD - 11/29/2024 7:44 AM EDT [facility] Endocrinology and Metabolism [place] Department of Endocrine Surgery Geneva Butler M.D. [address] [place] [address] Mr. Bang Sharma's postoperative visit was conducted via telephone call. He underwent a parathyroidexploration with excision of the right upper and left upper parathyroid glands on 11/14/24. On the morning following surgery, his serum calcium measured 9.2 with a corresponding PTH of 16. He has beenmaintained on 1 gram of oral calcium daily. [...] or concerns. GENEVA BUTLER M.D. CC: Nathaly Sargent, D.O. documented in this encounterM[facility]08-01-2025 Telephone encounter Note * Telephone Encounter - Lois Wise RN - 11/18/2024 2:34 PM EDT Called pt and left a voice mail to see how pt is doing after undergoing Parathyroid exploration with excision of the right upper and left upper parathyroid glands with Dr. Butler on 11/14/24. Reminded of post-op follow-up and instruction was given to have labs drawn prior to the appointment. Pt to call for questions. Lois Wise RN [facility]08-01-2025 Miscellaneous Notes* Telephone Encounter - Lois Wies RN - 11/18/2024 2:34 PM EDT Called [...] questions. Lois Wise RN documented in this encounterM[facility]07-29-2025 NoteHNO ID: [id number] Author: ESTEBAN CAMPA MD Service: General Surgery [...] General Surgery Resident-PGY4 Endocrine Surgery Department Pager: [phone] [facility]-28-2025 NoteHNO ID: [id number] Author: TIFFANY WESTBROOK MD Service: Endocrine Surgery [...] in the surgical floor Tiffany Westbrook MD [phone] Fellow / Clinical Associate, [facility]-2025 Note HNO ID: [id number] Author: AMANDA HAWKINS APRN.MACHINE PECAN GATHERER Service: ? Author Type: Nurse Rapid Extractor Operator Type: Anesthesia Procedure Notes Filed: 11/14/2024 07:46 Note Text: ANESTHESIOLOGY PROCEDURE NOTE Airway General Information Procedure Start Time/Medication Administration: 11/14/2024 7:32 AM Procedure End Time: 11/14/2024 7:32 AM Patient location during procedure: OR Staffing MACHINE PECAN GATHERER: Amanda Hawkins APRN.MACHINE PECAN GATHERER Performed by: MACHINE PECAN GATHERER Indications and Patient Condition Indications for airway management: anesthesia Preoxygenated: yes anesthesia circuit Method: sleep Difficult Mask: No Final Airway Details Final airway type: endotracheal airway Final Endotracheal Airway: ETT Cuffed: yes Successful intubation technique: video laryngoscopy Devices used: [employer] Endotracheal tube insertion site: oral Blade size: #3 ETT size (mm): 7.5 Measured from: lips Measurement (cm): 23 Placement verified by: capnometry Cormack-Lehane Classification: grade I - full view of glottis Number of attempts at approach: 1 Airway not difficult SIGNATURE: Amanda Chaudhari APRN.MACHINE PECAN GATHERER PATIENT NAME: Bang Sharma DATE: November 14, 2024 TIME: 7:46 AM CSN: [id number] History of Present illness Narrative* Jame Donald RT(R) - 11/01/2024 10:30 AM EDT RADIOLOGY SERVICE PROGRESS NOTE SERVICE DATE: 11/01/2024 [...] PATIENT PRESENTS WITH AN IMPLANTABLE OR ATTACHED GAS CUTTER: No CREATININE: Creatinine Date Value Ref Range [...] e.g. those with acute kidney injury, the eGFRmay not accurately reflect actual GFR. eGFR- Date [...] information regarding radiation safety can be found usingthis link: [email or web address] 20Diagnostic%20Nuclear%20Medicine%[email or web address] SIGNATURE: JORGE Sierra) PATIENT NAME: Bang Sharma DATE: November 01, 2024 TIME: 11:26 AM PAGER/CONTACT #: documented in this encounterMccullough-[facility]07-15-2025 NoteHNO ID: [id number] Author: JAME DONALD RT (R) Service: Nuclear Medicine Author Type: Technologist Type: [...] PATIENT PRESENTS WITH AN IMPLANTABLE OR ATTACHED GAS CUTTER: No CREATININE: Creatinine Date Value Ref Range [...] safety can be found using this link: [email or web address] 20Diagnostic%20Nuclear%20Medicine%20Procedures.pdf SIGNATURE: RT Mariela(R) PATIENT NAME: Bang Sharma DATE: November 01, 2024 TIME: 11:26 AM PAGER/CONTACT #:[facility]07-15-2025 Instructions * Patient Instructions* Luana Boss PA-C - 11/01/2024 9:37 AM EDT Images from the original note were not included. [facility] PATIENT PREOPERATIVE INSTRUCTIONS No ref. provider found has scheduled you for your procedure at this surgery center: [facility]: [phone] -- [id number] [place] [address]. Please read below carefully for your personalized [...] office. If you are currently using a bhhn-cwn-ultm injectable or oral medication for diabetes or weight loss such as Dulaglutide (Trulicity), Exenatide (Byetta, Bydureon), Liraglutide (Victoza, Saxenda), Semaglutide (Ozempic, Wegovy, Rybelsus), or Tirzepatide (Mounjaro), the medicine should be stopped at least 7 days before surgery. These medicines can cause food to remain in your stomach for a very longtime and increase the risks from surgery and anesthesia. Not stopping the medication for a long enough time may result in your surgery being rescheduled. Blood Thinning Medications: - Stop NSAIDS (Ibuprofen, Advil, Aleve, Motrin, Celebrex, Mobic, etc.) 7 days before surgery, as directed by your surgeon. - Do NOT stop aspirin or other anticoagulants without consulting with your cue worker or prescribing physician. - Stop ALL herbal [...] please check with your dialysis center or tape cutting machine operator to see if any adjustments need to [...] Procedures: - YOU MUST HAVE A RESPONSIBLE GUI DEVELOPER TAKE YOU HOME. A MORTGAGE LOAN UNDERWRITER OR RESPIRATORY THERAPIST ASSISTANT CANNOT BE MADE A RESPONSIBLE GUI DEVELOPER. - We recommend that a responsible person stays with you overnight to take care of you. - You cannot stay in a hotel alone after outpatient surgery. You will not be permitted to have yoursurgery, if you do not have someone to [...] Advance Directive, please fax a copy to [phone] or email to for it to be added to your chart. If you do not have an Advance Directive, you can find the appropriate form and more information at [email or web address]. We recommend that youcomplete the Advance Directive form found on the website and bring it with you the day of your surgery. It can be witnessed and scanned into your chart that day. Luana Boss PA-C documented in this encounterMcc[facility]07[facility] History and physical note * Luana Boss PA-C - 11/01/2024 9:00 AM EDT Images from the original note were not included. [facility] HISTORY AND PHYSICAL EXAMINATION SERVICE DATE: 11/01/2024 SERVICE TIME: 9:31 AM PRIMARY CARE PHYSICIAN: Alvni E Ball, DO Assessment Patient has the following medical [...] and and ASA Follows with Dr. Davis [facility] 10/25/24 SVT (supraventricular tachycardia) (HCC) H/o cardioversion 2015 Sinus lanette on ECG today Managed with flecainide Follows with Dr. Davis, [facility] 10/25/24 ANESTHESIA FINDINGS: Intubation History: No [...] physical activity. STOP-Bang Score: STOP-Bang Score: (+REMY) [id number] Score: Age: >=75 Sex: male Hypertension history: Yes [id number] Score: ARISCAT Score: Age: 51-80 Preoperative SpO2: >=96% Preoperative anemia: Yes Duration of surgery: <2 hrs Emergency procedure: No ARISCAT Score: I - PHYSICAL EVALUATION AIRWAY Patient intubated: No. Tracheostomy tube not present Mallampati: IV. TM distance: >3 FB. Neck ROM: full ROM without neurological symptoms. Mouth opening: adequate. Short neck: no. Thick neck: no Microretrognathia/Micronagthia/Recessed Chin: No DENTAL Dental findings: [...] is scheduled for procedure on 11/14/2024 at [facility]. REVIEW OF SYSTEMS: General: No weight loss, malaise or fevers. Neurological: No history of TIA's, stroke, LOAN DOCUMENTATION SPECIALIST tumor, impaired sensorium, hemiplegia, paraplegia orquadraplegia. No neurological symptoms or problems. Respiratory: Positive [...] COVID-19 original vaccine, age 12+ yr, monovalent (PFIZER- BIONTECH - MELCHOR TOP) 02/04/2021 Imm Admin: COVID-19 original vaccine, age 12+ yr, monovalent (PFIZER- BIONTECH - PURPLE TOP) Only the first 5 [...] 508 QTC Calculation (Bazett) 490 Calculated P [place] 85 Calculated R [place] -69 Calculated T [place] 33 Impression SINUS BRADYCARDIA LEFT AXIS DEVIATION COMPLETE RIGHT BUNDLE BRANCH BLOCK ABNORMAL ECG No results found for this or any previous visit (from the past 18486 hours). Spirometry Data No data to display [...] for evaluation of wide-complex tachycardia in the settingof normal ejection fraction revealed normal HV interval but no evidence of any AH jump suggestive of dual AV node physiology and no tachycardia was induced. This was followed up with VEST with [facility] protocol which was negative for inducible arrhythmias subsequently Isuprel was started and again this was repeated and no evidence of jump or any echo beats and repeat the ventricularstimulation study was negative for any arrhythmias 01/29/12:CATH [...] Bang Sharma DATE: 11/01/2024 TIME: 9:31 AM [facility]07-15-[facility] History and physical note* Luana Boss PA-C - 11/01/2024 9:00 AM EDT Images from the original note [...] Managed with flecainide Follows with Dr. Davis [facility] 10/25/24 ANESTHESIA FINDINGS: Intubation History: No abnormal [...] physical activity. STOP-Bang Score: STOP-Bang Score: (+REMY) [id number] Score: Age: >=75 Sex: male Hypertension history: Yes [id number] Score: ARISCAT Score: Age: 51-80 Preoperative SpO2: >=96% Preoperative anemia: Yes Duration of surgery: <2 hrs Emergency procedure: No ARISCAT Score: I - PHYSICAL EVALUATION AIRWAY Patient intubated: No. Tracheostomy tube not present Mallampati: IV. TM distance: >3 FB. Neck ROM: full ROM without neurological symptoms. Mouth opening: adequate. Short neck: no. Thick neck: no Microretrognathia/Micronagthia/Recessed Chin: No DENTAL Dental findings: [...] is scheduled for procedure on 11/14/2024 at [facility]. REVIEW OF SYSTEMS: General: No weight loss, malaise or fevers. Neurological: No history of TIA's, stroke, LOAN DOCUMENTATION SPECIALIST tumor, impaired sensorium, hemiplegia, paraplegia orquadraplegia. No neurological symptoms or problems. Respiratory: Positive [...] COVID-19 original vaccine, age 12+ yr, monovalent (PFIZER- BIONTECH - MELCHOR TOP) 02/04/2021 Imm Admin: COVID-19 original vaccine, age 12+ yr, monovalent (PFIZER- BIONTECH - PURPLE TOP) Only the first 5 [...] 508 QTC Calculation (Bazett) 490 Calculated P [place] 85 Calculated R [place] -69 Calculated T [place] 33 Impression SINUS BRADYCARDIA LEFT AXIS DEVIATION COMPLETE RIGHT BUNDLE BRANCH BLOCK ABNORMAL ECG No results found for this or any previous visit (from the past 76071 hours). Spirometry Data No data to display [...] for evaluation of wide-complex tachycardia in the settingof normal ejection fraction revealed normal HV interval but no evidence of any AH jump suggestive of dual AV node physiology and no tachycardia was induced. This was followed up with VEST with [facility] protocol which was negative for inducible arrhythmias subsequently Isuprel was started and again this was repeated and no evidence of jump or any echo beats and repeat the ventricularstimulation study was negative for any arrhythmias 01/29/12:CATH [...] 11/01/2024 TIME: 9:31 AM documented in this encounterMccull[facility]07-08-2025 NoteUT Electrophysiology Consult Note Reason for visit: [...] is having surgery for his thyroid in [place] on November 14. Patient states he had [...] This was followed up with VEST with [facility] protocol which was negative for [...] This was followed up with VEST with [facility] protocol which was negative for inducible arrhythmias subsequently Isuprel was started and again this was repeated and no evidence of jump or any echo beats and repeat the ventricular stimulation study was negative for any arrhythmias 01/29/12:CATH Impression: 1. Normal coronary angiogram. 2. Mild systemic hypertension. 3. Maria Dolores (more content not included)...[facility] 10-04-2024 Telephone encounter Note* Telephone Encounter - Dora Larkin - 10/04/2024 6:49 PM EDT Are you an Endocrinology [facility] located at [facility] [place]? Yes Patient Name: Bang Sharma Age: [age] year old Requestor: Dora Larkin Reason for Exam: TN Parathyroid w SPECT/CT Orders needed prior to scheduling: TN PARATHYROID W SPECT/CT [id number] Are all orders above present: Yes When will patient be scheduled: Day 1: Week of 10/31 No Doses on Thursday Route to Ca Schedulers @ [facility] Scheduling Hyperthyroidism or Nodule (100-300 microCi I-123 [...] of study: 1 - 1 1/2 hours [facility]06-17-2025 Miscellaneous Notes* Telephone Encounter - Dora Larkin - 10/04/2024 6:49 PM EDT Are you an Endocrinology [facility] located at [facility] [place]? Yes Patient Name: Bang Sharma Age: [age] year old Requestor: Dora Larkin Reason for Exam: NM Parathyroid w SPECT/CT Orders needed prior to scheduling: NM PARATHYROID W SPECT/CT [id number] Are all orders above present: Yes When will patient be scheduled: Day 1: Week of 10/31 No Doses on Thursday Route to Ca Schedulers @ [facility] Scheduling Hyperthyroidism or Nodule (100-300 [...] - 1 1/2 hours documented in this encounterMccullough-[facility]05-29-2025 Evaluation note* Diagnosis Onset Date Resolution Status Admit Date Cellulitis of leg without fo ot, right acute September 15, 2024 11:13am Hypertension acute September 15 11:13am Primary hyperparathyroidism acute September 15, 2024 11:13am Swelling of right lower extremity ac hiram September 15, 2024 11:13am [facility] Work Phone: 1(847) 197-743705-27-2025 History of Present illness Narrative* Geneva Butler MD - 09/13/2024 12:20 PM EDT [facility] Endocrinology [facility] Metabolism [place] Department of Endocrine Surgery Geneva Butler M.D. [address] [place] [address] Mr. Bang Sharma was seen in the [...] CC: Nathaly Sargent D.O. documented in this encounterMccullough-[facility]05-27-2025 NoteHNO ID: [id number] Author: GENEVA BUTLER MD Service: ? Author Type: Physician Type: Progress Notes Filed: 09/13/2024 12:00 Note Text: [facility] Endocrinology and Metabolism [place] Department of Endocrine Surgery Geneva Butler M.D. [address] [place] [address] Mr. Bang Sharma was seen in the [...] M.D. CC: Herber Donald M.D. Alvin Lo D.O.[facility]05-27-2025 Instructions* Patient Instructions* Arlene Florian MA - 09/13/2024 11:05 AM EDT Thank you for choosing the [facility] Department of Endocrinology, Diabetes and Metabolism. Did you know that you need to call 48 hours in advance of your scheduled visit, if you are unable to make your appointment? The Endocrinology and Metabolism [place] thanks you for your commitment, because patients not showing to their appointment results in a lost opportunity for patients to receive [facility] health care at the [facility]. To Cancel an appointment, please choose one of the following: - Call the Appointment Call Center at [phone] - From [place] CK[facility], Go to Appointments - Cancel Appts If cancelling, consider your need to reschedule to prevent further delays in your care. To Schedule an appointment, please choose one of the following: - Call the Appointment Call Center at [phone] - From [place] CK[facility], Go to Appointments - Request an Appt documented in this encounterMccullough-[facility]05-13-2025 Evaluation note* Diagnosis Onset Date [...] 11:31am Swelling of right lower extremity ac hiram August 30, 2024 11:31am Pneumonia noneactive August 30, 2024 11:31am Atrial fibrillation acute August 192024 11:13am Cellulitis of leg without fo ot, right acute September 15, 2024 11:13am Hypertension acute September 15 11:13am Obesity acute September 15, 2024 11:13am Primary hyperparathyroidism acute September 15, 2024 11:13am Swelling of right lower extremity ac hiram September 15, 2024 11:13am [facility] Work Phone: 1(730) 577-310305-01-2025 Telephone encounter Note* Telephone Encounter - Herber Donald MD - 08/18/2024 11:39 AM EDT Noted, BMD normal on 07/18/24 DXA, thanks [facility] Work Phone: 1(622) 905-140105-01-2025 Miscellaneous Notes* Telephone Encounter - Herber Donald MD - 08/18/2024 11:39 AM EDT Noted, BMD normal on 07/18/24 DXA, thanks * Telephone Encounter - Marina Mccracken MA - 08/18/2024 10:36 AM EDT Images from the original note were not included. A form has been received from [facility] for DXA Bone Densitometry Report. Sent to Dr Donald for consideration. Sent to Medical Records to be scanned. documented in this encounterMccullough-[facility]05-01-2025 Telephone encounter Note * Telephone Encounter - Marina Mccracken MA - 08/18/2024 10:36 AM EDT Images from the original note were not included. A form has been received from [facility] for DXA Bone Densitometry Report. Sent to Dr Donald for consideration. Sent to Medical Records to be scanned. [facility]04-30-2025 Telephone encounter Note* Telephone Encounter [...] Hyperparathyroid PATIENT DEMOGRAPHICS Name: Bang Sharma CCF#: [id number] : 1950 AGE: [age] year old Contact Numbers: Home: (home) Work: There is no work phone number on file. PATIENT PHYSICIAN INFORMATION Referring Doctor: Address: Phone: Science Faculty Member: Address: Phone: PCP: Alvin Lo ([facility]) [address] [place] [address] PAST TREATMENT Office notes: SEE [facility] Medications: NONE THAT APPLY Pre-Visit [...] 65 pg/mL 106 (H) Imaging Reports: SEE [facility] CD of Images: SEE [facility] FNA: no FNA Slides: N/A Has the patient ever had thyroid or parathyroid surgery before: No Operative Reports: NONE AVAILABLE Pathology Reports: NONE AVAILABLE [facility]04-30-2025 Miscellaneous Notes* Telephone Encounter - [...] Hyperparathyroid PATIENT DEMOGRAPHICS Name: Bang Sharma CCF#: [id number] : 1950 AGE: [age] year old Contact Numbers: Home: (home) Work: There is no work phone number on file. PATIENT PHYSICIAN INFORMATION Referring Doctor: Address: Phone: Science Faculty Member: Address: Phone: PCP: Alvin Lo ([facility]) [address] [place], [place] [id number] PAST TREATMENT Office notes: SEE [facility] Medications: NONE THAT APPLY Pre-Visit [...] 65 pg/mL 106 (H) Imaging Reports: SEE [facility] CD of Images: SEE [facility] FNA: no FNA Slides: N/A Has the patient ever had thyroid or parathyroid surgery before: No Operative Reports: NONE AVAILABLE Pathology Reports: NONE AVAILABLE documented in this encounterMccullough-[facility]04-29-2025 Instructions* Patient Instructions* Herber Donald MD - 08/16/2024 3:31 PM EDT Please get blood test today Will check Parathyroid scan Will schedule you with Dr Geneva Butler in endocrine surgery documented in this encounterMccullough-[facility]04-29-2025 NoteHNO ID: [id number] Author: HERBER DONALD MD Service: ? Author [...] get records of recent DXA scan at [facility] - RENAL FUNCTION PANEL; Future - VITAMIN D 25 HYDROXY; Future - PTH INTACT; Future - NM PARATHYROID W SPECT/CT; Future - CONSULT TO ENDOCRINE SURGERY; Future Hypercalcemia - NM PARATHYROID W SPECT/CT; Future F/u 6 months The assessment and benefits/risks of the plan were discussed with the patient who expressed understanding and was agreeable to that which is noted above. [facility]04-29-2025 History of Present illness Narrative* [...] get records of recent DXA scan at [facility] - RENAL FUNCTION PANEL; Future - [...] which is noted above. documented in this encounterMccullough[facility]03-21-2025 NoteSUBJECTIVE Reason for Visit: Bang [...] context of the patient's (more content not included)...[facility]02-25-2025 NoteUT Electrophysiology Consult Note Reason for [...] This was followed up with VEST with [facility] protocol which was negative for [...] This was followed up with VEST with [facility] protocol which was negative for [...] with PACs a (more content not included)... [facility]12-17-2024 History of Present illness Narrative* Amanda Mustafa, DO - 04/05/2024 1:45 PM EST Images [...] Date Afib (CMS/HCC) Heart disease HTN (hypertension) (CMS/[facility]) Past Surgical History: Procedure Laterality Date [...] to clinic: 3 weeks documented in this encounterUniversity of Missouri Health [id number] NoteCardiovascular Medicine [facility] SUBJECTIVE Chief Complaint Patient presents with [...] This was followed up with BEST with [facility] protocol which was negative for [...] Coreg [Carvedilol] Diarrhea Meperi (more content not included)...[facility] 03-11-2024 Evaluation note* Diagnosis Onset Date [...] (prostate spec ific antigen) acute March 11 024 11:00am [facility] Work Phone: 1([phone]) 780-800611-06-2024 History of Present illness Narrative* AVI Ruiz - 02/24/2024 1:00 PM EST Images from the original note were not included. Reason for Appointment: EMG Patient: Bang Sharma : 1950 EMG Computer: DigitalMR Referring Physician: Dr. Amanda Mustafa EMG: [facility] rubber mold maker: Geoff Joshua RT(R) Office Location: [place] Reason for EMG: c/o numbness/tingling in right foot/ankle. Hx of surgery to right lower leg. No hx of DM. Not on blood thinners. Comments: Procedure was explained to the patient & who expressed understanding. Patient appeared to have tolerated the test well despite some discomfort due to the nature of the test. documented in this encounterUniversity of Missouri Health [id number] History of Present illness Narrative* Amanda Mustafa DO - 02/22/2024 10:30 AM EST Images from the original note were not included. Chief Complaint Patient presents with Numbness Peripheral Neuropathy Subjective Bang Sharma, 73 y.o., male being seen in Neurology consultation at the request of Dr. Joya. Dr. Lo is his PCP. HPI Lower extremity numbness - labs @ [facility]; referral received from Dr Reina Joya, DPM The patient states that his symptoms [...] Date Afib (CMS/HCC) Heart disease HTN (hypertension) (CMS/[facility]) Past Surgical History: Procedure Laterality Date [...] to clinic: 3 weeks documented in this encounterUniversity of Missouri Health [id number] NoteLOOP IMPLANT PROCEDURE NOTE DATE OF PROCEDURE: 12/09/23 PERFORMING PHYSICIAN: Dr. Alpesh Davis AWARD CLERK: JERROD INDICATIONS FOR PROCEDURE: 1. SVT/AF surveillance [...] the sternum on the left using the [employer] tool. The loop recorder was then [...] wet the incision. Alpesh Davis MD Cardiac Electrophysiology.[facility]02-09-2024 Evaluation note* Encounter Date Diagnosis Assessment Notes Treatment Notes Treatment Clinical Notes May, Anemia (ICD-10 - D64.9) [place] Other 09-26-2023 NoteHNO ID: [id number] Author: Keri Lopez RN Service: ? Author Type: Registered Nurse Type: Progress Notes Filed: 01/13/2023 4:19 PM Note Text: I served as a scribe during this office visit encounter. [facility] NoteHNO ID: [id number] Author: Haresh Pineda MD Service: ? 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 (CPT 46711 - 22) Placement of Prophylactic Carbon Fiber Tibial Nail, Right Tibia (CPT 87114) High Speed [place] and Adjuvant Treatment with 10% H202 (CPT 13673) Neruolysis and Dissection of Deep Peroneal Nerve (CPT 75592) Right Iliac Crest Marrow Aspiration/[place] ( CPT 21597) Diagnosis: Right Tibial Diaphysis Cartilage Lesion with [...] the date of the service which included [id number] patient care, completing clinical documentation, obtaining and/or [...] information added by medical student, resident, nurse, WASHER AND CAPPER MACHINE OPERATOR/PA-C that I have placed my signature directly below I have verified and either instructed them to document in a scribe function or document appropriately in the chart during the patient visit. Haresh Pineda MD rigger apprentice, CCLCM at [facility] HospitalKennel Operator, Division of Musculoskeletal Oncology Co-Director of Sarcoma Care, [facility] Pager: [phone] (more content not included)...[facility] [id number] History of Present illness Narrative* Haresh Pineda MD - 11/05/2021 5:19 PM EDT This note was created using NoteWriter. ISIAH FORRESTER ORT [facility] FU Advanced: Did this patient have an adverse event since their last encounter?: No * Haresh Pineda MD - 11/05/2021 4:07 PM EDT Orthopaedic Surgery Follow-Up Clinic Note Surgery/Date: 08/27/2017 1. 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 Placement of Prophylactic Carbon Fiber Tibial Nail, Right Tibia (CPT 76938) 3. High Speed [place] and Adjuvant Treatment with 10% H202 (CPT 18130) 4. Neruolysis and Dissection of Deep Peroneal Nerve (CPT 72697) 5. 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 Exam: RLE -- largely unchanged compared [...] the date of the service which included [id number] patient care, completing clinical documentation, obtaining and/or reviewing separately obtained history, performing a medically appropriate examination, counseling and educating the patient/family/caregiver, ordering medications, tests, or procedures, independently interpreting results (not separately reported) and communicating results to the patient/family/caregiver. Any information added by medical student, resident, nurse, JULIETH/DEVAN that I have placed my signature directly below I have verified and either instructed them to document in a scribe function or document appropriately in the chart during the patient visit. Haresh Pineda MD rigger apprentice, [facility] at [facility] HospitalKennel Operator, Division of Musculoskeletal Oncology Co-Director of Sarcoma Care, [facility] Pager: [phone] November 05, 2021 5:18 PM documented in this encounterMccullough-[facility]07-19-2022 History of Present illness Narrative* RT [...] 05, 2021 2:49 PM documented in this encounterMccullough-[facility]06-23-2022 NotePROCEDURE: XR FOREARM LT 2 [...] Electronically authenticated by: TIFFANY GUPTA Date: 2021-10-10 12:28[facility] note* 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, site unspecified documented in this encounter [facility] note* 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, site unspecified documented in this encounter [facility] note* 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, site unspecified documented in this encounter [facility] note* Diagnosis Chronic pain of left ankle- Primary documented in this encounter [facility] noteNo [employer] Other Evaluation note* Diagnosis Onset Date Resolution Status Anemia acute Atrial fibrillation acute Hypercholesterolemia acute Hypertension acute Obesity acute REMY (obstructive sleep apnea) acute [facility] Work Phone: Evaluation note* Diagnosis Idiopathic peripheral neuropathy- Primary Unspecified hereditary and idiopathic peripheral neuropathy 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 Weakness Other malaise and fatigue Numbness and tingling Disturbance of skin sensation documented in this encounter [facility] CareEvalusaint francis healthcare note* Diagnosis Idiopathic peripheral neuropathy Unspecified hereditary and idiopathic peripheral neuropathy documented in this encounter [facility] CareEvalusaint francis healthcare note* Diagnosis Idiopathic peripheral neuropathy- Primary Unspecified hereditary and idiopathic peripheral neuropathy Numbness and tingling Disturbance of skin sensation 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 Weakness Other malaise and fatigue documented in this [facility] Diagnosis Pre-operative examination- Primary Preoperative examination, [...] Primary hyperparathyroidism Hypercalcemia documented in this encounter [facility] note* Diagnosis Pre-operative examination- Primary Preoperative examination, [...] Primary Hyperparathyroidism, unspecified documented in this encounter [facility] note* Diagnosis Onset Date Resolution Status Admit [...] 11:31am Pneumonia noneactive August 30, 2024 11:31am [facility] Work Phone: Evaluation note* Diagnosis [...] (HCC) Hyperparathyroidism, unspecified documented in this encounter [facility] note* Diagnosis Pre-operative examination- Primary Preoperative examination, [...] (HCC) Hyperparathyroidism, unspecified documented in this encounter [facility] note* Diagnosis Pre-operative examination- Primary Preoperative examination, [...] (HCC) Hyperparathyroidism, unspecified documented in this encounter [facility] note* Diagnosis Pre-operative examination- Primary Preoperative examination, [...] right tibial 08/2017 [facility] Pre-operative examination- Primary [...] Primary Hyperparathyroidism, unspecified documented in this encounter [facility] general Narrative - Reported* Type Description Date [...] insertion 2018 Hospitalization History see surgical hx [facility] Ass[facility] Labor Other [facility] (narrative)* Diagnostic Procedure Only (Routine) - Pending Review Specialty Diagnoses / Procedures Referred By Contac t Referred To Contact XR IMAGING Diagnoses Chondrosarcoma (HCC) Procedures XR TIBIA FIBULA 2V AP/LAT RIGHT RADIOLOGIC EXAMINATION TIBIA & FIBULA 2 VIEWS Haresh Pineda MD [address] [place] [address] Xr Imaging Referral ID Status Reason Start Date Expiration Date Visits Requested Visits Authorized [id number] Pending Review Auto-Generat ed Referral 11/05/2022 12/05/2022 1 1 [facility] for referral (narrative)* Diagnostic Procedure Only (Routine) - Pending Review Specialty Diagnoses / Procedures Referred By Contac t Referred To Contact XR IMAGING Diagnoses Chondrosarcoma (HCC) Procedures XR TIBIA FIBULA 2V AP/LAT RIGHT RADIOLOGIC EXAMINATION TIBIA & FIBULA 2 VIEWS Haresh Pineda MD [address] [place] [address] Xr Imaging Referral ID Status Reason Start Date Expiration Date Visits Requested Visits Authorized [id number] Pending Review Auto-Generat ed Referral 11/17/2022 12/17/2023 1 1 T [facility] for referral (narrative)* Diagnostic Procedure Only (Routine) - Authorized Specialty Diagnoses / Procedures Referred By Contac t Referred To Contact XR IMAGING Diagnoses Chronic pain of left ankle Procedures XR ANKLE GENERAL 3V AP/LAT/OBL LEFT RADEX ANKLE COMPLETE MINIMUM 3 VIEWS Valeri Quintero PA-C [address] [address] Xr Imaging [place] [address] Referral ID Status Reason Start Date Expiration Date Visits Requested Visits Authorized [id number] Authorized Auto-Generat ed Referral 01/12/2023 02/11/2024 1 1 [facility]No reason for referral [facility] Work Phone: Reason for visit Narrative* Diagnostic Procedure Only (Routine) - Closed Specialty Diagnoses / Procedures Referred By Contac t Referred To Contact MOLECULAR & FUNCTIONAL IMAGING Diagnoses Hyperparathyroidism (HCC) Procedures NM PARATHYROID W SPECT/CT PARATHYROID IMAGING W/TOMOGRAPHIC SPECT & CT Geneva Butler MD [address] [place] [address] Phone: tel: fax: [facility] [address] [place] [address] Phone: tel: Referral ID Status Reason Start Date Expiration Date V isits Requested Visits Authorized [id number] Closed Auto-Generate d Referral 09/13/2024 10/13/2025 1 1 [facility] Summary Purpose Family History Relationship Condition Age at Onset Recorded Date/T kayley father Malignant neoplasm Unknown Unknown mother Hypertension Unknown Diabetes mellitus Unknown Advance Directives Documents on File Type Date Recorded Patient Sourcer Expl anation Advance Directive(s) Advance Directive(s) 09/02/2018 11:24 AM Advance Directive(s) 08/26/2018 2:02 PM Advance Directive(s) 08/24/2017 2:28 PM Documents on File Type Date Recorded Patient Sourcer Expl anation Advance Directive(s) Advance Directive(s) 09/02/2018 11:24 AM Advance Directive(s) 08/26/2018 2:02 PM Advance Directive(s) 08/24/2017 2:28 PM Documents on File Type Date Recorded Patient Sourcer Expl anation Advance Directive(s) 08/24/2017 2:28 PM Advance Directive Response Recorded Date/ Time Advance Directives No August 31 9:44am Advance Directive Response Recorded Date/ Time Advance Directives No August 31 8:44am Documents on File Type Date Recorded Patient Sourcer Expl anation Advance Directive(s) 08/24/2017 2:28 PM [...] Admit Date Amb Documentation August 25, 2024 11:[address] [place] [address] follow up August 30, 2024 11:31 am [...] Admit Date Amb Documentation August 25, 2024 11:[address] [place] [address] follow up August 30, 2024 11:31 am [...] Amb Documentation December 05, 2024 10 :56am [facility] ER cellulitis December 13, 2024 3: 09pm Reason for Visit Admit Date Cellulitis of leg without foot, right Ma y 2024 11:13am Hypertension September 15, 2024 11:13 am Primary hyperparathyroidism September 15 11:13am Swelling of right lower extremity September 152024 11:13am Chief Complaint Admit Date Amb Documentation December 05, 2024 10 :56am [facility] ER cellulitis December 13, 2024 3: 09pm F/U R/S FROM 01/02January 03, 2025 5:13pm Reason for Visit Admit Date Callus of foot December 13, 2024 3: 09pm Cellulitis and abscess of toe of right f oot December 13, 2024 3:09pm Peripheral polyneuropathy December 13, 2 025 3:09pm 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, 2024 3: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 Peripheral neuropathy January 03 5:13pm Additional Source Comments (unrecognized sect ion and content) No Status Records FoundNo Status Records FoundNo Status Records FoundNo Status Records FoundNo Status Records FoundNo Status Records FoundNo Status Records Found INFORMATION SOURCE (unrecogn ized section and content) DATE CREATED AUTHOR 11/10/2017 [facility] DATE CREATED AUTHOR AUTHOR'S ORGANIZ ATION 06/26/2022 [facility] DATE CREATED AUTHOR AUTHOR'S ORGANIZ ATION 01/21/2023 [facility] DATE CREATED AUTHOR AUTHOR'S ORGANIZ ATION 07/06/2024 [facility] EPIC DATE CREATED AUTHOR AUTHOR'S ORGANIZ ATION 11/16/2024 [facility] DATE CREATED AUTHOR AUTHOR'S ORGANIZ ATION 11/18/2024 [facility] DATE CREATED AUTHOR AUTHOR'S ORGANIZ ATION 12/10/2024 [facility] Source Comments (unrecognize d section and content) In the event this informatio n is protected by the Federal Confidentiality of Alcohol and Drug Abuse Patient Records regulations: The Federal rules restrict any use of the information to criminally investigate or prosecute any alcohol or drug abuse patient.[facility] the event this information is protected by the Federal Confidentiality of Alcohol and Drug Abuse Patient Records regulations: The Federal rules restrict any use of the information to criminally investigate or prosecute any alcohol or drug abuse patient.[facility] the event this information is protected by the Federal Confidentiality of Alcohol and Drug Abuse Patient Records regulations: The Federal rules restrict any use of the information to criminally investigate or prosecute any alcohol or drug abuse patient.[facility] the event this information is protected by the Federal Confidentiality of Alcohol and Drug Abuse Patient Records regulations: The Federal rules restrict any use of the information to criminally investigate or prosecute any alcohol or drug abuse patient.[facility] the event this information is protected by the Federal Confidentiality of Alcohol and Drug Abuse Patient Records regulations: The Federal rules restrict any use of the information to criminally investigate or prosecute any alcohol or drug abuse patient.[facility] Hospital[facility] the event this information is protected by the Federal Confidentiality of Alcohol and Drug Abuse Patient Records regulations: The Federal rules restrict any use of the information to criminally investigate or prosecute any alcohol or drug abuse patient.[facility] the event this information is protected by the Federal Confidentiality of Alcohol and Drug Abuse Patient Records regulations: The Federal rules restrict any use of the information to criminally investigate or prosecute any alcohol or drug abuse patient.[facility] the event this information is protected by the Federal Confidentiality of Alcohol and Drug Abuse Patient Records regulations: The Federal rules restrict any use of the information to criminally investigate or prosecute any alcohol or drug abuse patient.[facility] the event this information is protected by the Federal Confidentiality of Alcohol and Drug Abuse Patient Records regulations: The Federal rules restrict any use of the information to criminally investigate or prosecute any alcohol or drug abuse patient.[facility] Hospital[facility] the event this information is protected by the Federal Confidentiality of Alcohol and Drug Abuse Patient Records regulations: The Federal rules restrict any use of the information to criminally investigate or prosecute any alcohol or drug abuse patient.[facility] Hospital[facility] the event this information is protected by the Federal Confidentiality of Alcohol and Drug Abuse Patient Records regulations: The Federal rules restrict any use of the information to criminally investigate or prosecute any alcohol or drug abuse patient.[facility] Hospital[facility] the event this information is protected by the Federal Confidentiality of Alcohol and Drug Abuse Patient Records regulations: The Federal rules restrict any use of the information to criminally investigate or prosecute any alcohol or drug abuse patient.[facility] Hospital[facility] the event this information is protected by the Federal Confidentiality of Alcohol and Drug Abuse Patient Records regulations: The Federal rules restrict any use of the information to criminally investigate or prosecute any alcohol or drug abuse patient.[facility] Hospital[facility] the event this information is protected by the Federal Confidentiality of Alcohol and Drug Abuse Patient Records regulations: The Federal rules restrict any use of the information to criminally investigate or prosecute any alcohol or drug abuse patient.[facility] Hospital[facility] the event this information is protected by the Federal Confidentiality of Alcohol and Drug Abuse Patient Records regulations: The Federal rules restrict any use of the information to criminally investigate or prosecute any alcohol or drug abuse patient.[facility] Hospital[facility] the event this information is protected by the Federal Confidentiality of Alcohol and Drug Abuse Patient Records regulations: The Federal rules restrict any use of the information to criminally investigate or prosecute any alcohol or drug abuse patient.[facility] Reason for Visit (unrecogniz ed section and content) Reason Comments Follow Up Reason Comments Radio Gen A21 Reason Comments Numbness Peripheral Neuropathy Specialty Diagnoses / Procedures Referred By Contac t Referred To Contact Neurology Diagnoses Anesthesia of skin Procedures HI OFFICE/OUTPATIENT [facility] 30 MINUTES Reina Joya MD [address] [place] [address] [place] [address] Phone: tel: fax: Emmett Pineda DO [address] [place] [address] Phone: tel: fax: Referral ID Status Reason Start Date Expiration Date V isits Requested Visits Authorized [id number] Closed Consult and Treat 02/11/2024 08/09/2024 1 1 Reason Comments Peripheral Neuropathy Reason Comments Thyroid Problem Reason Comments Consult FACE SHEET Reason Comments Results [facility] - DXA scan Reason Comments Appointment [...] W/TOMOGRAPHIC SPECT & CT Geneva Butler MD [address] [place] [address] Phone: tel: fax: [facility] [address] [place] [address] Phone: tel: Referral ID Status Reason Start Date Expiration Date V isits Requested Visits Authorized [id number] Closed Auto-Generate d Referral 09/13/2024 10/13/2025 1 1 Reason Comments Post Op Reason Comments Post-Op Visit Care Teams (unrecognized sec tion and content) Team Status: Active Member Role Status Dates Alvin Lo DO Primary Care Provider Active Team Status: Active Member Role Status Dex Lo DO Primary Care Provider Active Start: [...] 2024 Team Status: Active Member Role Status Dex Lo DO Primary Care Provider Active Start: December 03, 2024 Foreign Torres DO Attending Provider Active S tart: December 03, 2024 Team Status: Active Member Role Status Dex Lo DO Primary Care Provider Active Start: December 05, 2024 Kathy Nguyen CMA Attending Provider Active Start: December 05, 2024 Team Status: Inactive Member Role Status Dex Lo DO Primary Care Provider Active Start: December 13, 2024 End: December 13, 2024 Alvin Lo DO Attending Provider Active Sta rt: December 13, 2024 End: December 13, 2024 Team Status: Inactive Member Role Status Dex Lo DO Primary Care Provider Active Start: January 03, 2025 End: January 03, 2025 Amanda Mustafa DO Attending Provider Active Sta rt: January 03, 2025 End: January 03, 2025 Team Status: Active Member Role Status Dex Lo DO Primary Care Provider Active Team Status: Inactive Member Role Status Dex Lo DO Primary Care Provider Active Start: September 15, 2024 End: September 15, 2024 Alvin Lo DO Attending Provider Active Sta rt: September 15, 2024 End: September 15, 2024 Team Status: Active Member Role Status Dex Lo DO Primary Care Provider Active Start: November 01, 2024 Geneva Butler MD Attending Provider Active Star t: November 01, 2024 Team Status: Active Member Role Status Dex Lo DO Primary Care Provider Active Start: [...] December 13, 2024 End: December 13, 2024 Health Sciences Manager Relationship Specialty Start Date End Date Alvin Lo DO [address] [place] [address] PCP - General Internal Medicine 06/19/17 Health Sciences Manager Relationship Specialty Start Date End Date Alvin Lo DO [address] [place] [address] PCP - General Internal Medicine 06/19/17 Health Sciences Manager Relationship Specialty Start Date End Date Alvin Lo DO [address] [place] [address] PCP - General Internal Medicine 06/19/17 Team Status: Active Member Role Status Dates Alvni Lo DO Primary Care Provide r, Attending Provider Active Start: December 01, 2023 Team Status: Inactive Member Role Status Dates Alvin Lo DO Primary Care Provide r, Attending Provider Active Start: December 03, 2023 End: December 03, 2023 Health Sciences Manager Relationship Specialty Start Date End Date Alvin Lo MD [address] [place] [address] PCP - General Internal Medicine 03/30/23 Health Sciences Manager Relationship Specialty Start Date End Date Alvin Lo MD [address] [place] [address] PCP - General Internal Medicine 03/30/23 Bhavik Justin, PhD [address] [place] [phone] Referring Physician Neuropsychology 02/22/24 Health Sciences Manager Relationship Specialty Start Date End Date Alvin Lo MD [address] [place] [address] PCP - General Internal Medicine 03/30/23 Bhavik Justin, PhD [address] [place] [phone] Referring Physician Neuropsychology 02/22/24 Health Sciences Manager Relationship Specialty Start Date End Date Alvin Lo MD [address] [place] [address] PCP - General Internal Medicine 03/30/23 Bhavik Justin, PhD [address] [place] [phone] Referring Physician Neuropsychology 02/22/24 Amanda Mustafa DO [address] [place], [place] [phone] Referring Physician Neurology 04/05/24 Health Sciences Manager Relationship Specialty Start Date End Date Alvin Lo MD [address] [place] [address] PCP - General Internal Medicine 03/30/23 Bhavik Justin, PhD [address] [phone] Referring Physician Neuropsychology 02/22/24 Amanda Mustafa DO [address] [place] [address] Referring Physician Neurology 04/05/24 Health Sciences Manager Relationship Specialty Start Date End Date Alvin Lo MD [address] [place] [address] PCP - General Internal Medicine 03/30/23 Bhavik Justin, PhD [address] [phone] Referring Physician Neuropsychology 02/22/24 Amanda Mustafa DO [address] [place] [address] Referring Physician Neurology 04/05/24 Team Status: Active [...] Status: Inactive Member Role Status Dates Alvin oL DO Primary Care Provide r, Attending Provider Active Start: April 27, 2024 End: April 27, 2024 Health Sciences Manager Relationship Specialty Start Date End Date Alvin Lo DO [address] [place] [address] PCP - General Internal Medicine 06/19/17 Health Sciences Manager Relationship Specialty Start Date End Date Alvin Lo [address] [place] [address] PCP - General Internal Medicine 06/19/17 Health Sciences Manager Relationship Specialty Start Date End Date Alvin Lo DO Juanjose [address] [place] [address] PCP - General Internal Medicine 06/19/17 Health Sciences Manager Relationship Specialty Start Date End Date Alvin Lo Juanjose [address] [place] [address] PCP - General Internal Medicine 06/19/17 Team [...] August 30, 2024 End: August 30, 2024 Health Sciences Manager Relationship Specialty Start Date End Date Alvin Lo DO [address] [place] [address] PCP - General Internal Medicine 06/19/17 Team Status: Inactive Member Role Status Dates Alvin Lo DO Primary Care Provide r, Attending Provider Active Start: September 15, 2024 End: September 15, 2024 Health Sciences Manager Relationship Specialty Start Date End Date Alvin Lo DO [address] [place] [address] PCP - General Internal Medicine 06/19/17 Health Sciences Manager Relationship Specialty Start Date End Date Alvin Lo DO [address] [place] [address] PCP - General Internal Medicine 06/19/17 Health Sciences Manager Relationship Specialty Start Date End Date Alvin Lo DO [address] [place] [address] PCP - General Internal Medicine 06/19/17 Health Sciences Manager Relationship Specialty Start Date End Date Alvin Lo DO [address] [place] [address] PCP - General Internal Medicine 06/19/17 Health Sciences Manager Relationship Specialty Start Date End Date Alvin Lo DO [address] [place] [address] PCP - General Internal Medicine 06/19/17 Health Sciences Manager Relationship Specialty Start Date End Date Alvin Lo DO [address] [place] [address] PCP - General Internal Medicine 06/19/17 Health Sciences Manager Relationship Specialty Start Date End Date Alvin Lo DO [facility] [place] [address] PCP - General Internal Medicine 06/19/17 Team Status: Inactive Member Role Status Dates Alvin Lo DO Primary Care Provider Active Start: January 03, 2025 End: January 03, 2025 Amanda Mustafa DO Attending Provider Active Sta rt: January 03, 2025 End: January 03, 2025 Goals (unrecognized section and content) Goals may [...] BE BASED ON THE PRIMARY CLINICAL RECORDS. [employer] provides no warranty or guarantee of the accuracy or completeness of information in this document.
== END 2025-01-04 13:26 | disposition home or self-care (01) ==
LOC: WC 13:25
PROVIDERS: PCP Internal Medicine; Visit Provider Physician Assistant
DX: L84 Corns and callosities (principal)
CPT/HCPCS: 11055

== ENCOUNTER 2025-01-18 13:04 | Outpatient (OUT) | payer MEDICARE, OTHER, SELFPAY ==
--- OUTSIDE RECORDS SUMMARY | 2025-01-18 13:07 | XMS_ITS | Encounter Summary ---
Author Organization [facility] Address [address] [place] [address] Care Team Providers Care Assistant Plant Control Operator Name Role Phone Alvin Contreras DO Primary Care Provider [phone] Source Comments In the event this information is protected by the Federal Confidentiality of Alcohol and Drug AbusePatient Records regulations: The Federal rules restrict any use of the information to criminally investigate or prosecute any alcohol or drug abuse patient.[facility] Encounter Details Date Type Department Care Team (Late st Contact Info) Description 11/03/2024 [place] [address] Provider, [facility] Actionable Imaging Result Notification Patient [...] is lower risk 4 01/13/2023 Data from: https://www.neighborhoodatlas.medicine[facility].edu/. Last address used for calculation [address] [place] [address] 01/13/2023 Sex and Gender Information Value Date [...] 2:20 PM EST Office Visit Endocrinology [address] [place] [address] Gaudencio Lewis MD [address] [place] [address] [place] [address] Return in about 6 months (around 02/15/2025). documented as of this encounter Visit Diagnoses Not on filedocumented in this encounter Care Teams Assistant Plant Control Operator Relationship Specialty Start Date End Date Alvin Contreras DO [address] [place] [address] PCP - General Internal Medicine 06/19/17 documented as of this encounter
--- OUTSIDE RECORDS SUMMARY | 2025-01-18 13:07 | XMS_ITS | Clinical Summary ---
Author Organization [facility] Address [address] [place] [address] Care Team Providers Care Residential Caregiver Name Role Phone Bhavik Justin MD Unavailable [phone] Nanda Mustafa DO Unavailable [phone] Alvin Contreras DO Primary Care Provider [phone] Allergies Active Allergy Reactions Criticality Noted Date [...] 02/12/2025 FIT-DNA 02/12/2025 02/12/2022, 11/08/2018 [place] [address] [employer] [id number] Care Teams Residential Caregiver Relationship Specialty Start Date End Date Alvin Contreras DO [address] [place] [address] PCP - General Internal Medicine 09/19/24 Bhavik Justin MD [address] [address] Referring Physician Neuropsychology 02/22/24 Nanda Mustafa DO [address] [place] [address] Referring Physician Neurology 04/05/24
--- OUTSIDE RECORDS SUMMARY | 2025-01-18 13:08 | XMS_ITS | Encounter Summary ---
Author Organization [facility] Address [address] [place] [address] Care Team Providers Care Sketch Maker Name Role Phone Alvin Contreras DO Primary Care Provider [phone] Source Comments In the event this information is protected by the Federal Confidentiality of Alcohol and Drug AbusePatient Records regulations: The Federal rules restrict any use of the information to criminally investigate or prosecute any alcohol or drug abuse patient.[facility] Encounter Details Date Type Department Care Team (Late st Contact Info) Description 08/17/2024 Patient Msg Endocrine Surgery [address] [place] [id number] Provider, [facility] Appointment Social History Tobacco Use Types Packs/Day Years Used Date Smoking Tobacco: Never Smokeless Tobacco: Never PHQ-2 Answer Date Recorded PHQ-2 score 0 06/30/2019 Area Deprivation Index Answer Date Mumtaz rded National Score (1-100), lower number is lower ri sk 60 01/13/2023 State Score (1-10), lower number is lower risk 4 01/13/2023 Data from: https://www.neighborhoodatlas.medicine.[facility].edu/. Last address used for calculation [address] [place] [address] 01/13/2023 Sex and Gender Information Value Date [...] 2:20 PM EST Office Visit Endocrinology [address] [place] [address] Gaudencio Lewis MD [address] [place] [address] [place] [address] Return in about 6 months (around 02/15/2025). documented as of this encounter Visit Diagnoses Not on filedocumented in this encounter Care Teams Sketch Maker Relationship Specialty Start Date End Date Alvin Contreras DO [address] [place] [address] PCP - General Internal Medicine 06/19/17 documented as of this encounter
--- OUTSIDE RECORDS SUMMARY | 2025-01-18 13:08 | XMS_ITS | Encounter Summary ---
Author Organization [facility] Address [address] [place] [address] Care Team Providers Care Forestry Scientist Name Role Phone Alvin Contreras Primary Care Provider [phone] Source Comments In the event this information is protected by the Federal Confidentiality of Alcohol and Drug AbusePatient Records regulations: The Federal rules restrict any use of the information to criminally investigate or prosecute any alcohol or drug abuse patient.[facility] Encounter Details Date Type Department Care Team (Late st Contact Info) Description 08/23/2024 Patient Msg Endocrinology [address] [id number] Provider, Cckristina Appontment Rescheduled Social History Tobacco Use Types Packs/Day Years Used Date Smoking Tobacco: Never Smokeless Tobacco: Never PHQ-2 Answer Date Recorded PHQ-2 score 0 06/30/2019 Area Deprivation Index Answer Date Mumtaz rded National Score (1-100), lower number is lower ri sk 60 01/13/2023 State Score (1-10), lower number is lower risk 4 01/13/2023 Data from: https://www.neighborhoodatlas.medicine.[facility].edu/. Last address used for calculation [address] [place] [address] 01/13/2023 Sex and Gender Information Value Date [...] 2:20 PM EST Office Visit Endocrinology [address] [place] [address] Gaudencio Lewis MD [address] [place] [address] [address] [place], [place] [phone] Return in about 6 months (around 02/15/2025). documented as of this encounter Visit Diagnoses Not on filedocumented in this encounter Care Teams Forestry Scientist Relationship Specialty Start Date End Date Alvin Contreras DO [address] [place] [address] PCP - General Internal Medicine 06/19/17 documented as of this encounter
--- OUTSIDE RECORDS SUMMARY | 2025-01-18 13:08 | XMS_ITS | Encounter Summary ---
Author Organization [facility] Address [address] [place] [address] Care Team Providers Care Ream Cutter Name Role Phone Alvin Contreras DO Primary Care Provider [phone] Bhavik Justin MD Unavailable [phone] Nanda Mustafa DO Unavailable [phone] Alvin Contreras DO Primary Care Provider [phone] Encounter Details Date Type Department Care Team (Late st Contact Info) Description 02/24/2024 Orders Only PHYLLIS JUDAH [address] [facility] [address] [place] [phone] Geoff Joshua ARRT Social History Tobacco Use [...] on filedocumented in this encounter Care Teams Ream Cutter Relationship Specialty Start Date End Date Alvin Contreras DO PCP - General Internal Medicine 03/30/23 09/18/24 Alvin Contreras DO [address] [facility] [place] [address] PCP - General Internal Medicine 09/19/24 Bhavik Justin MD [address] [address] Referring Physician Neuropsychology 02/22/24 Nanda Mustafa DO [address] [place] [address] Referring Physician Neurology 04/05/24 documented as of this encounter
--- OUTSIDE RECORDS SUMMARY | 2025-01-18 13:08 | XMS_ITS | Encounter Summary ---
Author Organization [facility] Address [address] [place] [address] Care Team Providers Care Crotch Breaker Name Role Phone Alvin Contreras DO Primary Care Provider [phone] Encounter Details Date Type Department Care Team (Late st Contact Info) Description 10/27/2024 Orders Only [facility] [address] [place] [address] Alpesh Jenkins MD [address] [place] [address] Social History Tobacco Use Types [...] Alpesh Jenkins MD CV IMPLANTABLE CARDIAC DEVICE WI OCEDURES Final Result documented in this encounter Visit Diagnoses Not on filedocumented in this encounter Care Teams Crotch Breaker Relationship Specialty Start Date End Date Alvin Contreras DO [address] [place] [address] PCP - General 05/08/22 documented as of this encounter
--- OUTSIDE RECORDS SUMMARY | 2025-01-18 13:08 | XMS_ITS | Encounter Summary ---
Author Organization [facility] Address [address] [place] [address] Care Team Providers Care Stock Mixer Name Role Phone Alvin Contreras Primary Care Provider [phone] Source Comments In the event this information is protected by the Federal Confidentiality of Alcohol and Drug AbusePatient Records regulations: The Federal rules restrict any use of the information to criminally investigate or prosecute any alcohol or drug abuse patient.[facility] Encounter Details Date Type Department Care Team (Late st Contact Info) Description 10/07/2024 Patient Msg Endocrine Surgery [address] [phone] Provider, Ccf Pre-op Appointments Social History Tobacco Use Types Packs/Day Years Used Date Smoking Tobacco: Never Smokeless Tobacco: Never PHQ-2 Answer Date Recorded PHQ-2 score 0 06/30/2019 Area Deprivation Index Answer Date Mumtaz rded National Score (1-100), lower number is lower ri sk 60 01/13/2023 State Score (1-10), lower number is lower risk 4 01/13/2023 Data from: https://www.neighborhoodatlas.medicine.[facility].edu/. Last address used for calculation [address] [place] [address] 01/13/2023 Sex and Gender Information Value Date [...] 2:20 PM EST Office Visit Endocrinology [address] [place] [address] Gaudencio Lewis MD [address] [place] [address] [address] [place], [place] [phone] Return in about 6 months (around 02/15/2025). documented as of this encounter Visit Diagnoses Not on filedocumented in this encounter Care Teams Stock Mixer Relationship Specialty Start Date End Date Alvin Contreras DO [address] [place] [address] PCP - General Internal Medicine 06/19/17 documented as of this encounter
--- OUTSIDE RECORDS SUMMARY | 2025-01-18 13:08 | XMS_ITS | Encounter Summary ---
Author Organization [facility] Address [address] [place] [address] Care Team Providers Care Dishwashing Machine Operator Name Role Phone Alvin Contreras Primary Care Provider [phone] Source Comments In the event this information is protected by the Federal Confidentiality of Alcohol and Drug AbusePatient Records regulations: The Federal rules restrict any use of the information to criminally investigate or prosecute any alcohol or drug abuse patient.[facility] Encounter Details Date Type Department Care Team (Late st Contact Info) Description 07/12/2019 Patient Msg Neurology [address] [phone] Provider, Ccf Neurology - Blood Work Orders [...] 2:20 PM EST Office Visit Endocrinology [address] [place] [address] Gaudencio Lewis MD [address] [place] [address] [place] [id number] Return in about 6 months (around 02/15/2025). documented as of this encounter Visit Diagnoses Not on filedocumented in this encounter Care Teams Dishwashing Machine Operator Relationship Specialty Start Date End Date Alvin Contreras DO [address] [place] [address] PCP - General Internal Medicine 06/19/17 documented as of this encounter
--- OUTSIDE RECORDS SUMMARY | 2025-01-18 13:08 | XMS_ITS | Clinical Summary ---
Author Organization [facility] Address [address] [place] [address], [address] [place] [address] Care Team Providers Care Rubber Engraver Name Role Phone Unavailable Primary Care Provider [...]
--- OUTSIDE RECORDS SUMMARY | 2025-01-18 13:08 | XMS_ITS | Encounter Summary ---
Author Organization [facility] Address [address] [place] [address] Care Team Providers Care Citrus Peeler Name Role Phone Alvin Contreras DO Primary Care Provider [phone] Source Comments In the event this information is protected by the Federal Confidentiality of Alcohol and Drug AbusePatient Records regulations: The Federal rules restrict any use of the information to criminally investigate or prosecute any alcohol or drug abuse patient.[facility] Encounter Details Date Type Department Care Team (Late st Contact Info) Description 12/04/2022 Patient Msg Orth and Rheum [place] [address] [place] [address] Provider, Ccf Appointment Rescheduled Social History Tobacco Use Types Packs/Day Years Used Date Smoking Tobacco: Never Smokeless Tobacco: Never PHQ-2 Answer Date Recorded PHQ-2 score 0 06/30/2019 Area Deprivation Index Answer Date Mumtaz rded National Score (1-100), lower number is lower ri sk 60 05/18/2022 State Score (1-10), lower number is lower risk N ot on file 05/18/2022 Data from: https://www.neighborhoodatlas.medicine.[facility].edu/. Last address used for calculation [address] [place] [address] 05/18/2022 Sex and Gender Information Value Date [...] 2:20 PM EST Office Visit Endocrinology [address] [place] [address] Gaudencio Lewis MD [address] [place] [address] [place] [address] Return in about 6 months (around 02/15/2025). documented as of this encounter Visit Diagnoses Not on filedocumented in this encounter Care Teams Citrus Peeler Relationship Specialty Start Date End Date Alvin Contreras DO [address] [place] [address] PCP - General Internal Medicine 06/19/17 documented as of this encounter
--- OUTSIDE RECORDS SUMMARY | 2025-01-18 13:08 | XMS_ITS | Encounter Summary ---
Author Organization [facility] Address [address] [place], [place] [address] Care Team Providers Care Metal Can Inspector Name Role Phone Alvin Contreras DO Primary Care Provider [phone] Source Comments In the event this information is protected by the Federal Confidentiality of Alcohol and Drug AbusePatient Records regulations: The Federal rules restrict any use of the information to criminally investigate or prosecute any alcohol or drug abuse patient.[facility] Reason for Referral * Consult, Test, Treat (Routine) - Authorized Specialty Diagnoses / Procedures Referred By Contac t Referred To Contact Diagnoses Hyperparathyroidism (HCC) Procedures OFFICE/OUTPATIENT [facility] 60 MINUTES Geneva Samayoa MD [address] [place] [address] Phone: tel: fax: Referral ID Status Reason Start Date Expiration Date Visits Requested Visits Authorized [id number] Authorized PCP Requested Referral 09/13/2024 09/13/2025 1 1 * Diagnostic Procedure Only (Routine) - Closed Specialty Diagnoses / Procedures Referred By Contac t Referred To Contact [facility] Diagnoses Hyperparathyroidism (HCC) Procedures NM PARATHYROID W SPECT/CT PARATHYROID IMAGING W/TOMOGRAPHIC SPECT & CT Geneva Samayoa MD [address] [place] [address] Phone: tel: fax: Molecular Imaging [address] [phone] Phone: tel: Referral ID Status Reason Start Date Expiration Date V isits Requested Visits Authorized [id number] Closed Auto-Generate d Referral 09/13/2024 10/13/2025 1 1 * Outpatient Procedure (Routine) - Closed Specialty Diagnoses / Procedures Referred By Contac t Referred To Contact [facility] Diagnoses Hyperparathyroidism (HCC) Procedures ECG COMPLETE ECG ROUTINE ECG W/LEAST 12 LDS W/I[place] [address] [place] [address] Phone: tel: fax: [facility] [place] [address] [place] [address] Referral ID Status Reason Start Date Expiration Date V isits Requested Visits Authorized [id number] Closed Auto-Generate d Referral 09/13/2024 09/13/2025 1 1 Reason for Visit * Reason Comments 11/14 MM - Parathyroidectomy Needs: labs, EKG, NM scan of Parathyroid, in-person PACC and 2 wk phone post-op. Encounter Details Date Type Department Care Team (Latest Contact Info) Description 09/13/2024 Patient Update Endocrine Surgery [address] [phone] Geneva Samayoa MD [address] [place] [address] 11/14 MM - Parathyroidectomy (Needs: [...] is lower risk 4 01/13/2023 Data from: https://www.neighborhoodatlas.[facility]/. Last address used for calculation [address] 01/13/2023 Sex and Gender [...] 2:20 PM EST Office Visit Endocrinology [address] [place] [address] Gaudencio Lewis MD [address] [place] [address] [place] [address] Return in about 6 months (around [...] be communicated with the ordering provider via [employer] staff message or phone message by [facility] within 2 business days of report finalization. --END OF FINDING-- Stunt Performer: BARBARA Transcribe Date/Time: Nov 02 2024 7:32A [...] Images: No additional findings. Procedure Note Provider, [facility] [place] - 11/02/2024 * * *Final Report* * [...] be communicated with the ordering provider via [employer] staff message or phone message by [facility] within 2 business days of report finalization. --END OF FINDING-- Stunt Performer: BARBARA Transcribe Date/Time: Nov 02 2024 7:32A [...] ms [facility] Calculated P [place] 85 degrees [facility] Calculated R [place] -69 degrees [facility] Calculated T [place] 33 degrees [facility] 11/01/2024 11:5 5 AM EDT Impressions [facility] - 12/08/2024 9:49 AM EDT SINUS BRADYCARDIA LEFT AXIS DEVIATION COMPLETE RIGHT BUNDLE BRANCH BLOCK ABNORMAL ECG Confirmed by ENRIQUE ROSALES MD ([id number]) on 12/08/2024 9:49:14 AM Narrative [facility] - 12/08/2024 9:49 AM EDT NAME : BANG SHARMA PID : [id number] : 1950 Gender : Male Race : ORD : [id number] Procedure Date : Nov 01 2024 11:55:05 Edit Date : Dec 08 2024 09:49:21 Diagnosis: SINUS BRADYCARDIA LEFT AXIS DEVIATION COMPLETE RIGHT BUNDLE BRANCH BLOCK ABNORMAL ECG Confirmed by ENRIQUE ROSALES MD ([id number]) on 12/08/2024 9:49:14 AM Test Reason : Location : 314 : J14 J14 Overread By : ENRIQUE ROSALES MD Edited By : ENRIQUE ROSALES MD Referred By : GENEVA SAMAYOA Acquired by : JENIFFER MCCAULEY us Geneva Samayoa MD EKG Final Res ult [facility] [address] [place] [address] * COMPLETE BLOOD COUNT AND DIFFERENTIAL (11/01/2024 11:24 AM EDT) WBC 5.86 3.70 - 11.00 k/uL 11/01/2024 12:25 PM EDT [facility] RBC 4.58 4.20 - 6.00 m/uL 11/01/2024 12:25 PM EDT [facility] Hemoglobin 14.3 13.0 - 17.0 g/dL 11/01/2024 12:25 PM EDT [facility] Hematocrit 44.3 39.0 - 51.0 % 11/01/2024 12:25 PM EDT [facility] MCV 96.7 80.0 - 100.0 fL 11/01/2024 12:25 PM EDT [facility] MCH 31.2 26.0 - 34.0 pg 11/01/2024 12:25 PM EDT [facility] MCHC 32.3 30.5 - 36.0 g/dL 11/01/2024 12:25 PM EDT [facility] RDW-CV 13.6 11.5 - 15.0 % 11/01/2024 12:25 PM EDT [facility] Platelet Count 307 150 - 400 k/uL 11/01/2024 12:25 PM EDT [facility] MPV 9.1 9.0 - 12.7 fL 11/01/2024 12:25 PM EDT [facility] Neutrophils % 59.7 % 11/01/2024 12:25 PM EDT [facility] Abs Neut 3.50 1.45 - 7.50 k/uL 11/01/2024 12:25 PM EDT [facility] Lymphocytes % 25.3 % 11/01/2024 12:25 PM EDT [facility] Abs Lymph 1.48 1.00 - 4.00 k/uL 11/01/2024 12:25 PM EDT [facility] Monocytes % 11.9 % 11/01/2024 12:25 PM EDT [facility] Abs Bandera 0.70 <0.87 k/uL 11/01/2024 12:25 PM EDT [facility] Eosinophils % 1.9 % 11/01/2024 12:25 PM EDT [facility] Abs Eosin 0.11 <0.46 k/uL 11/01/2024 12:25 PM EDT [facility] Basophils % 0.9 % 11/01/2024 12:25 PM EDT [facility] Abs Baso 0.05 <0.11 k/uL 11/01/2024 12:25 PM EDT [facility] Immature Granulocytes % 0.3 % 11/01/2024 12:25 PM EDT [facility] Abs Immature Gran <0.03 <0.10 k/uL 025 12:25 PM EDT [facility] NRBC 0.0 /100 WBC 11/01/2024 12:25 PM EDT [facility] Absolute nRBC <0.01 <0.01 k/uL 11/01/2024 12:25 PM EDT [facility] Diff Type Auto 11/01/2024 12:25 PM EDT [facility] Blood BLOOD SPECIMEN / Unknown Venipuncture / Unknown 11/01/2024 11:24 AM EDT 11/01/2024 11:24 AM EDT us Geneva Samayoa MD LABORATORY Final Res ult [facility] [address] [place] [address], * (ABNORMAL) BASIC METABOLIC PANEL (11/01/2024 11:24 AM EDT) [facility] Signature Glucose 108(H) 74 - 99 mg/dL 11/01/2024 2:16 PM EDT [facility] Comment: The [place] Diabetes Association (ADA) provides guidance for cutoff [...] Standards of Medical Care in Diabetes 2016, [place] [employer] Association. Diabetes Care. 2016.39(Suppl 1). BUN 18 9 - 24 mg/dL 11/01/2024 2:16 PM EDT [facility] Creatinine 0.86 0.73 - 1.22 mg/dL 11/01/2024 2:16 PM EDT [facility] Sodium 140 136 - 144 mmol/L 11/01/2024 2:16 PM EDT [facility] Potassium 4.5 3.7 - 5.1 mmol/L 11/01/2024 2:16 PM EDT [facility] Chloride 105 98 - 107 mmol/L 11/01/2024 2:16 PM EDT [facility] CO2 26 22 - 30 mmol/L 11/01/2024 2:16 PM EDT [facility] Anion Gap 9 8 - 15 mmol/L 11/01/2024 2:16 PM EDT [facility] Calcium, Total 11.0(H) 8.5 - 10.2 mg/dL 11/01/2024 2:16 PM EDT [facility] Estimated Glomerular Filtration Rate 90 >=60 mL/min/1. 73m 11/01/2024 2:16 PM EDT [facility] Comment:Estimated Glomerular Filtration Rate [...] Geneva Samayoa MD LABORATORY Final Res ult [facility] [address] [address], [place] * (ABNORMAL) CREATININE, 24 HOUR URINE (10/19/2024 1:36 PM EDT) Creatinine 24 hr Ur 2.006(H) 1.000 - 2.000 g/24 hr 10/20/2024 5:25 PM EDT [facility] Period 24 hr 10/20/2024 5:25 PM EDT [facility] Volume 1,750 mL 10/20/2024 5:25 PM EDT [facility] Urine URINE SPECIMEN / Unknown Non Blood / Unknown 10/19/2024 1:36 PM EDT 10/19/2024 1:36 PM EDT Geneva Samayoa MD LABORATORY Final Res ult Performing Organization Address [facility]/ZIP Co de Phone Number [facility] [place] [address], [place] [facility] [address] [place] [address] * (ABNORMAL) CALCIUM, 24 HR URINE (10/19/2024 1:35 PM EDT) Calcium, 24 Hr Urine 357.0(H) 100.0 - 300.0 mg/24 hr 10/20/2024 7:10 PM EDT [facility] Period 24 hr 10/20/2024 7:10 PM EDT [facility] Volume 1,750 mL 10/20/2024 7:10 PM EDT [facility] Urine URINE SPECIMEN / Unknown Non Blood / Unknown 10/19/2024 1:35 PM EDT 10/19/2024 1:35 PM EDT Geneva Samayoa MD LABORATORY Final Res ult [facility] [address] [place] [address], [place] [facility] [address] [place] [address] documented in this encounter Visit Diagnoses Diagnosis Hyperparathyroidism (HCC)- Primary Hyperparathyroidism, unspecified Hyperparathyroidism (HCC) Hyperparathyroidism, unspecified Hyperparathyroidism (HCC) Hyperparathyroidism, unspecified documented in this encounter Care Teams Metal Can Inspector Relationship Specialty Start Date End Date Alvin Contreras DO [address] [place] [address] PCP - General Internal Medicine 06/19/17 documented as of this encounter
--- OUTSIDE RECORDS SUMMARY | 2025-01-18 13:08 | XMS_ITS | Clinical Summary ---
Author Organization [facility] tem Address [id number] [address] [place] [address] Care Team Providers Care Returned Goods Receiving Clerk Name Role Phone Alvin Contreras DO Primary Care Provider [phone] Allergies Active Allergy Reactions Criticality Noted Date [...] file Insurance MED[employer]ARE [employer] [place] [id number] Care Teams Returned Goods Receiving Clerk Relationship Specialty Start Date End Date Alvin Contreras DO [facility] [place] [address] PCP - General 12/15/17
--- OUTSIDE RECORDS SUMMARY | 2025-01-18 13:08 | XMS_ITS | Encounter Summary ---
Author Organization [facility] Address [address] [place] [address] Care Team Providers Care Coating Mixer Name Role Phone Alvin Contreras DO Primary Care Provider [phone] Source Comments In the event this information is protected by the Federal Confidentiality of Alcohol and Drug AbusePatient Records regulations: The Federal rules restrict any use of the information to criminally investigate or prosecute any alcohol or drug abuse patient.[facility] Encounter Details Date Type Department Care Team (Late st Contact Info) Description 10/18/2019 Patient Msg Orthopaedics [address] [place], [place] [phone] Provider, Ccf Repeat injection with Dr. Bah [...] 2:20 PM EST Office Visit Endocrinology [address] [place], [place] [phone] Gaudencio Lewis MD [address] [place] [address] [address] [place], [place] [phone] Return in about 6 months (around 02/15/2025). documented as of this encounter Visit Diagnoses Not on filedocumented in this encounter Care Teams Coating Mixer Relationship Specialty Start Date End Date Alvin Contreras DO [address] [place] [address] PCP - General Internal Medicine 06/19/17 documented as of this encounter
--- OUTSIDE RECORDS SUMMARY | 2025-01-18 13:08 | XMS_ITS | Clinical Summary ---
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 Encounters Date Type Department Care Team Description 11/29/2024 2:20 PM EDT [facility] Endocrine Surgery [address] [place], [place] [phone] Geneva Samayoa MD Hyperparathyroidism (HCC) (Primary Dx) 11/28/2024 Travel 11/23/2024 Telephone Endocrine Surgery [address] [place] [address] Geneva Samayoa MD Outside Lab Results 11/23/2024 Orders Only Endocrine Surgery [address] [place], [place] [phone] Geneva Samayoa MD 11/21/2024 Get Medical Advice Endocrine Surgery [address] [place] [address] Geneva Samayoa MD CALCIUM TOTAL BLD, Parathyroid hormone (PTH intact), Vitamin D, 25-hydroxy 11/18/2024 Telephone Endocrine Surgery [address] [place] [address] Geneva Samayoa MD Post Op 11/18/2024 Orders Only Endocrine Surgery [address] [place] [address] Geneva Samayoa MD Hyperparathyroidism (HCC) (Primary Dx) 11/14/2024 7:30 AM EDT - 11/14/2024 9:00 AM EDT Surgery [facility] Surgery [address] [place] [address] Geneva Samayoa MD PARATHYROIDECTOMY 11/14/2024 7:23 AM EDT Anesthesia Event [facility] Surgery [address] [place] [address] Sidney Larsen III, MD 11/14/2024 6:27 AM EDT - 11/15/2024 8:46 [place] [address] Geneva Samayoa MD Hyperparathyroidism (HCC) [E21.3] Discharge Disposition: Home 11/03/2024 Patient Msg INITIAL DEPARTMENT [facility] Provider, [facility] Actionable Imaging Result Notification Patient Outreach 11/01/2024 1:18 PM EDT - 11/01/2024 11:59 PM EDT Hospital Encounter Molecular Imaging [address] [place] [address] Hyperparathyroidism (HCC) [E21.3] Discharge Disposition: Home 11/01/2024 11:15 AM EDT Procedure Cardiology [address] [place] [address] 11/01/2024 10:05 AM EDT - 11/01/2024 1:17 PM EDT Hospital Encounter Molecular Imaging [address] [place], [place] [phone] Discharge Disposition: Home 11/01/2024 9:00 AM EDT PAT Pre Anesthesia [address] [place] [id number], [place] Chondrosarcoma (HCC) (Primary Dx); REMY (obstructive sleep apnea); Essential hypertension; Class 1 obesity due to excess calories without serious comorbidity with body mass index (BMI) of 34.0 to 34.9 in adult; Paroxysmal atrial fibrillation (HCC); SVT (supraventricular tachycardia) (HCC) 11/01/2024 Travel 10/19/2024 Travel from Last 3 Months Family History Medical [...] is lower risk 4 01/13/2023 Data from: https://www.neighborhoodatlas.medicine.[facility].edu/. Last address used for calculation [address] 01/13/2023 Sex and [...] 2:20 PM EST Office Visit Endocrinology [address] [place] [address] Gaudencio Lewis MD [address] [place] [address] Return in about 6 months (around [...] Completed 03/03/2023 Medical Devices Implanted Type Area Graphics Edit Technician Device Identifier Shelf Expiration Date Model / Serial / Lot Graft Enhance Demineralized Cortical Fiber Bone Allograft Dehydrate 2.5ml - [id number] Implanted:Qty: 1 on 08/27/2017 at [facility] Bone [facility] 07/28/2018 [id number] / / [id number] Graft Cancellous Chips Bone Void Freeze Dry 30ml (1.7-10mm) - [id number] Implanted:Qty: 1 on 08/27/2017 at [facility] Bone VAF 05/30/2020 [id number] / / [id number] Graft Dbx Bone Void Allograft Freeze Dried Putty 1ml - [id number] Implanted:Qty: 1 on 08/27/2017 at [facility] Cement / Putty MTF 01/27/2019 [id number] / [id number] / Tibial Nail Implanted:Qty: 1 on 08/27/2017 at [facility] Implant OTHER 11/27/2021 [id number] / / [id number] Carbofix Titaniumscrew Implanted:Qty: 1 on 08/27/2017 at [facility] Implant OTHER [id number] / / Carbofix Titanium Screw Implanted:Qty: 1 on 08/27/2017 at [facility] Implant OTHER [id number] / / Carbofix Titanium Screw Implanted:Qty: 1 on 08/27/2017 at [facility] Implant OTHER PCST [id number] / / Carbofix Titanium Screw Implanted:Qty: 1 on 08/27/2017 at [facility] Implant OTHER [id number] / / Carbofix Titanium Screw Implanted:Qty: 1 on 08/27/2017 at [facility] Implant OTHER [id number] / / Procedures Procedure Name Priority [...] - 65 pg/mL 11/15/2024 5:41 AM EDT [facility] Blood BLOOD SPECIMEN / Unknown Venipuncture / Unknown 11/15/2024 4:01 AM EDT 11/15/2024 4:39 AM EDT us Tiffany Sanchez MD LABORATORY Final Result [facility] [address] [place] [phone], * CALCIUM, TOTAL (11/15/2024 4:01 AM EDT) Calcium, Total 9.2 8.5 - 10.2 mg/dL 11/15/2024 5:27 AM EDT [facility] Blood BLOOD SPECIMEN / Unknown Venipuncture / Unknown 11/15/2024 4:01 AM EDT 11/15/2024 4:38 AM EDT us Tiffany Sanchez MD LABORATORY Final Result [facility] [address] [place] [address], * ECG COMPLETE (11/14/2024 11:35 AM EDT) Ventricular Rate 64 BPM [facility] Atrial Rate 64 BPM [facility] P-R Interval 164 ms [facility] QRS Duration 192 ms [facility] QT Interval 488 ms [facility] QTC Calculation (Bazett) 503 ms [facility] Calculated P [place] 73 degrees [facility] Calculated R [place] -76 degrees [facility] Calculated T [place] 19 degrees [facility] 11/14/2024 11:3 5 AM EDT Impressions [facility] - 11/14/2024 12:20 PM EDT Normal sinus rhythm Right bundle branch block Left anterior fascicular block Bifascicular block Septal infarct , age undetermined Abnormal ECG No previous ECGs available Confirmed by KEON MAGAÑA MD ([id number]) on 11/14/2024 12:20:23 PM Narrative [facility] - 11/14/2024 12:20 PM EDT NAME : BANG SHARMA PID : [id number] : 1950 Gender : Male Race : ORD : [id number] Procedure Date : Nov 14 2024 11:35:23 Edit Date : Nov 14 2024 12:20:28 Diagnosis: Normal sinus rhythm Right bundle branch block Left anterior fascicular block Bifascicular block Septal infarct , age undetermined Abnormal ECG No previous ECGs available Confirmed by KEON MAGAÑA MD ([id number]) on 11/14/2024 12:20:23 PM Test Reason : Post-OP Location : 1 : CARD 0211 Overread By : KEON MAGAÑA MD Edited By : KEON MAGAÑA MD Referred By : , Acquired by : DUONG KUMAR us Tiffany Sanchez MD EKG Final Result Performing Organization Address [facility] Co de Phone Number [facility] [address] [place] [address] * (ABNORMAL) INTRAOPERATIVE PTH (11/14/2024 8:10 AM EDT) Only the most recent of2 resultswithin the time period is included. Pathologist [facility] Intraoperative PTH 73(H) 15 - 65 pg/mL 11/14/2024 9:11 AM EDT [facility] Blood BLOOD SPECIMEN / Unknown 11/14/2024 8:10 AM EDT 11/14/2024 8:50 AM EDT Comment:Pre-op diagnosis: Hyperparathyroidism (HCC) [E21.3] us Geneva Samayoa MD LABORATORY Final Res ult Performing Organization Address [facility] de Phone Number [facility] [address] [place] [address], * SURGICAL PATHOLOGY (11/14/2024 7:55 AM EDT) Case Report Surgical Pathology Report Case: [id number] Authorizing Provider: Geneva Samayoa MD Collected: 11/14/2024 07:55 AM Ordering Location: [facility] Surgery Received: 11/14/2024 08:04 AM Pathologist: Deysi Singh MD Intraop: Ella Johnson MD Specimens: A) - Parathyroid Gland, Right, right upper [id number] B) - Parathyroid Gland, Left, Left upper 12x9x3 C) - Parathyroid Gland, Right, right upper [id number] 11/16/2024 11:04 AM EDT [facility] FINAL DIAGNOSIS A, C. Right upper parathyroid, excision: - Hypercellular parathyroid. B. Left upper parathyroid, excision: - Hypercellular parathyroid. SHANA November 16, 2024 11/16/2024 11:04 AM EDT [facility] at 1104 EDT Gross Description A. Parathyroid Gland, Right FSA1: Received fresh for frozen section is one piece of brown soft tissue weighing 0.590 grams and measuring 2.2 x 0.9 x 0.6 cm. A home office representative section is submitted for frozen section in FSA1. Gross examination performed at [facility], [address], [place] [address] CLIA# [id number] B. Parathyroid Gland, Left FSB1: Received fresh for frozen section is one piece of brown soft tissue weighing 0.245 grams and measuring 0.9 x 0.9 x 0.3 cm. The tissue is entirely submitted for frozen section in FSB1. Gross examination performed at [facility], [address], [place] [id number] CLIA# [id number] C. Parathyroid Gland, Right Labeled: Right upper 31 x 18 x 10 Received: In formalin Size: 2.8 x 1.5 x 0.9 cm Weight: 1640 mg Cassette code: Representatively in C1 (serially section) Gross examination performed at [facility], [address] [place] [address] MSL/MADIHA 11/14/24 12:25 PM 11/16/2024 11:04 AM EDT [facility] Intraoperative Diagnosis A. Parathyroid Gland, Right FSA1: Hypercellular parathyroid tissue (Ella Johnson MD) Intraoperative diagnosis performed at [facility], [address], [place] [address] CLIA# [id number] B. Parathyroid Gland, Left FSB1: Hypercellular parathyroid tissue (Ella Johnson MD) Intraoperative diagnosis performed at [facility], [address], [place] [address] CLIA# [id number] 11/16/2024 11:04 AM EDT [facility] Clinical History Pre-op diagnosis: Hyperparathyroidis m (HCC) [E21.3] 11/16/2024 11:04 AM EDT [facility] Performing Lab Diagnostic interpretation performed at: [facility], [address] [facility] [facility], [facility] [place] [address] CLIA# [id number] Wrist Closer: Herson Cuenca MD 11/16/2024 11:04 AM EDT [facility] Disclaimer Laboratory Developed Test (LDT) Disclaimer: Performance characteristics of immunohistochemica l, immunofluorescent, and chromogenic in-situ hybridization tests have been determined by the performing laboratory within [facility]'s [facility] Pathology and Laboratory Medicine Department ([facility], [facility], [facility], [facility], [facility], or [facility]) in a manner consistent with CLIA requirements. One or more of these tests may not have been cleared or approved by the FDA. [facility] is regulated under CLIA as qualified to perform high-complexity testing. These tests are used for clinical purposes. These should not be regarded as investigational or for research. Positive and negative controls stain appropriately. 11/16/2024 11:04 AM EDT [facility] Tissue PARATHYROID STRUCTURE / Unknown [...] Samayoa MD SURGICAL PATHOLOGY Final Result [facility] [address] [place] [address], [facility] [address] [place] [phone], [place] * Airway (11/14/2024 7:32 AM EDT) Narrative Nanda Hawkins APRN.STRIP POLISHER - 11/14/2024 7:32 AM EDT Nanda Hawkins APRN.STRIP POLISHER 11/14/2024 7:46 AM Airway General Information Procedure Start Time/Medication Administration: 11/14/2024 7:32 AM Procedure End Time: 11/14/2024 7:32 AM Patient location during procedure: OR Staffing STRIP POLISHER: Nanda Hawkins APRN.STRIP POLISHER Performed by: STRIP POLISHER Indications and Patient Condition Indications for airway management: anesthesia Preoxygenated: yes anesthesia circuit Method: sleep Difficult Mask: No Final Airway Details Final airway type: endotracheal airway Final Endotracheal Airway: ETT Cuffed: yes Successful intubation technique: video laryngoscopy Devices used: PROnoise Endotracheal tube insertion site: oral Blade size: [...] be communicated with the ordering provider via ChatLingual staff message or phone message by Imaging Support [facility] within 2 business days of report finalization. --END OF FINDING-- Milk Inspector: BARBARA Transcribe Date/Time: Nov 02 2024 7:32A Dictated by : SKIP RIVERA DO This examination was interpreted and the report reviewed and electronically signed by: SKIP RIVERA DO on Nov 02 2024 7:42AM EST Narrative 11/02/2024 7:44 AM EDT * * *Final Report* * * DATE OF EXAM: Nov 01 2024 2:25PM [facility] 0089 - [place] PARATHYROID W SPECT/CT [...] Images: No additional findings. Procedure Note Provider, [facility] [place] - 11/02/2024 * * *Final Report* * [...] be communicated with the ordering provider via ChatLingual staff message or phone message by [facility] within 2 business days of report finalization. --END OF FINDING-- Milk Inspector: PSCB Transcribe Date/Time: Nov 02 2024 7:32A Dictated [...] [facility] Calculated P [place] 85 degrees [facility] Calculated R [place] -69 degrees [facility] Calculated T [place] 33 degrees [facility] 11/01/2024 11:5 5 AM EDT Impressions [facility] - 12/08/2024 9:49 AM EDT SINUS BRADYCARDIA LEFT AXIS DEVIATION COMPLETE RIGHT BUNDLE BRANCH BLOCK ABNORMAL ECG Confirmed by ENRIQUE ROSALES MD ([id number]) on 12/08/2024 9:49:14 AM Narrative [facility] - 12/08/2024 9:49 AM EDT NAME : BANG SHARMA PID : [id number] : 1950 Gender : Male Race : ORD : [id number] Procedure Date : Nov 01 2024 11:55:05 Edit Date : Dec 08 2024 09:49:21 Diagnosis: SINUS BRADYCARDIA LEFT AXIS DEVIATION COMPLETE RIGHT BUNDLE BRANCH BLOCK ABNORMAL ECG Confirmed by ENRIQUE ROSALES MD ([id number]) on 12/08/2024 9:49:14 AM Test Reason : Location : 314 : J14 J14 Overread By : ENRIQUE ROSALES MD Edited By : ENRIQUE ROSALES MD Referred By : GENEVA SAMAYOA Acquired by : JENIFFER MCCAULEY us Geneva Samayoa MD EKG Final Res ult Performing Organization Address City/[facility]/ZIP Co de Phone Number [facility] [address] [place] [address] * (ABNORMAL) CALCIUM, IONIZED (11/01/2024 11:24 AM EDT) Normalized Calcium 1.44(H) 1.08 - 1.30 mmol/L 11/01/2024 2:08 PM EDT [facility] Calcium Ionized, Whole Blood 1.45(H) 1.08 - 1.30 mmol/L 11/01/2024 2:08 PM EDT [facility] Blood BLOOD SPECIMEN / Unknown Venipuncture / Unknown 11/01/2024 11:24 AM EDT 11/01/2024 11:24 AM EDT us Geneva Samayoa MD LABORATORY Final Res ult Performing Organization Address City/[facility]/ZIP Co de Phone Number [facility] [address] [place] [address], * COMPLETE BLOOD COUNT AND DIFFERENTIAL (11/01/2024 11:24 AM EDT) WBC 5.86 3.70 - 11.00 k/uL 11/01/2024 12:25 PM EDT [facility] RBC 4.58 4.20 - 6.00 m/uL 11/01/2024 12:25 PM EDT [facility] Hemoglobin 14.3 13.0 - 17.0 g/dL 11/01/2024 12:25 PM EDT [facility] Hematocrit 44.3 39.0 - 51.0 % 11/01/2024 12:25 PM EDT [facility] MCV 96.7 80.0 - 100.0 fL 11/01/2024 12:25 PM EDT [facility] MCH 31.2 26.0 - 34.0 pg 11/01/2024 12:25 PM EDT [facility] MCHC 32.3 30.5 - 36.0 g/dL 11/01/2024 12:25 PM EDT [facility] RDW-CV 13.6 11.5 - 15.0 % 11/01/2024 12:25 PM EDT [facility] Platelet Count 307 150 - 400 k/uL 11/01/2024 12:25 PM EDT [facility] MPV 9.1 9.0 - 12.7 fL 11/01/2024 12:25 PM EDT [facility] Neutrophils % 59.7 % 11/01/2024 12:25 PM EDT [facility] Abs Neut 3.50 1.45 - 7.50 k/uL 11/01/2024 12:25 PM EDT [facility] Lymphocytes % 25.3 % 11/01/2024 12:25 PM EDT [facility] Abs Lymph 1.48 1.00 - 4.00 k/uL 11/01/2024 12:25 PM EDT [facility] Monocytes % 11.9 % 11/01/2024 12:25 PM EDT [facility] Abs [place] 0.70 <0.87 k/uL 11/01/2024 12:25 PM EDT [facility] Eosinophils % 1.9 % 11/01/2024 12:25 PM EDT [facility] Abs Eosin 0.11 <0.46 k/uL 11/01/2024 12:25 PM EDT [facility] Basophils % 0.9 % 11/01/2024 12:25 PM EDT [facility] Abs Baso 0.05 <0.11 k/uL 11/01/2024 12:25 PM EDT [facility] Immature Granulocytes % 0.3 % 11/01/2024 12:25 PM EDT [facility] Abs Immature Gran <0.03 <0.10 k/uL 025 12:25 PM EDT [facility] NRBC 0.0 /100 WBC 11/01/2024 12:25 PM EDT [facility] Absolute nRBC <0.01 <0.01 k/uL 11/01/2024 12:25 PM EDT [facility] Diff Type Auto 11/01/2024 12:25 PM EDT [facility] Blood BLOOD SPECIMEN / Unknown Venipuncture / Unknown 11/01/2024 11:24 AM EDT 11/01/2024 11:24 AM EDT us Geneva Samayoa MD LABORATORY Final Res ult [facility] [address] [place] [address], [place] * (ABNORMAL) BASIC METABOLIC PANEL (11/01/2024 11:24 AM EDT) Glucose 108(H) 74 - 99 mg/dL 11/01/2024 2:16 PM EDT [facility] Comment: The [place] Diabetes Association (ADA) provides guidance for cutoff [...] Standards of Medical Care in Diabetes 2016, [place] Diabetes Association. Diabetes Care. 2016.39(Suppl 1). BUN 18 9 - 24 mg/dL 11/01/2024 2:16 PM EDT [facility] Creatinine 0.86 0.73 - 1.22 mg/dL 11/01/2024 2:16 PM EDT [facility] Sodium 140 136 - 144 mmol/L 11/01/2024 2:16 PM EDT [facility] Potassium 4.5 3.7 - 5.1 mmol/L 11/01/2024 2:16 PM EDT [facility] Chloride 105 98 - 107 mmol/L 11/01/2024 2:16 PM EDT [facility] CO2 26 22 - 30 mmol/L 11/01/2024 2:16 PM EDT [facility] Anion Gap 9 8 - 15 mmol/L 11/01/2024 2:16 PM EDT [facility] Calcium, Total 11.0(H) 8.5 - 10.2 mg/dL 11/01/2024 2:16 PM EDT [facility] Estimated Glomerular Filtration Rate 90 >=60 mL/min/1. 73m 11/01/2024 2:16 PM EDT [facility] Comment:Estimated Glomerular Filtration Rate (eGFR) [...] Samayoa MD LABORATORY Final Res ult [facility] [address] [place] [address], * (ABNORMAL) CREATININE, 24 HOUR URINE (10/19/2024 1:36 PM EDT) Creatinine 24 hr Ur 2.006(H) 1.000 - 2.000 g/24 hr 10/20/2024 5:25 PM EDT [facility] Period 24 hr 10/20/2024 5:25 PM EDT [facility] Volume 1,750 mL 10/20/2024 5:25 PM EDT [facility] Urine URINE SPECIMEN / Unknown Non Blood / Unknown 10/19/2024 1:36 PM EDT 10/19/2024 1:36 PM EDT Geneva Samayoa MD LABORATORY Final Res ult Performing Organization Address [facility] Co de Phone Number [facility] [address] [address], [facility] [address] [place] [address] * (ABNORMAL) CALCIUM, 24 HR URINE (10/19/2024 1:35 PM EDT) Calcium, 24 Hr Urine 357.0(H) 100.0 - 300.0 mg/24 hr 10/20/2024 7:10 PM EDT [facility] Period 24 hr 10/20/2024 7:10 PM EDT [facility] Volume 1,750 mL 10/20/2024 7:10 PM EDT [facility] Urine URINE SPECIMEN / Unknown Non Blood / Unknown 10/19/2024 1:35 PM EDT 10/19/2024 1:35 PM EDT Geneva Samayoa MD LABORATORY Final Res ult Performing Organization Address [facility] de Phone Number [facility] [address] [address], [facility] [address] [place] [address] from Last [address] [place] [address] MEDICARE [employer] [place] [phone] MEDICARE RAILROAD Advance Directives Documents on File Type Date Recorded Patient Harvest Contractor Expl anation Advance Directive(s) 08/24/2017 2:28 PM Care Teams Dukey Rider Relationship Specialty Start Date End Date Alvin Contreras DO [address] [place] [address] PCP - General Internal Medicine 06/19/17
--- OUTSIDE RECORDS SUMMARY | 2025-01-18 13:08 | XMS_ITS | Clinical Summary ---
Author Organization [facility] Address [address] [place] [address] Care Team Providers Care Urogynecology Physician Name Role Phone Alvin Contreras DO Primary Care Provider [phone] Allergies Active Allergy Reactions Criticality Noted Date [...] (05/08/2022): Added automatically from request for surgery [id number] Last Assessment & Plan: H/o, radical resection [...] Description 10/27/2024 3:50 AM EDT Ancillary Procedure [facility] [address] [place] [id number] Awareness of heartbeats 10/27/2024 Orders Only [facility] [address] [place] [address] Alpesh Jenkins MD 10/25/2024 2:15 PM EDT Office Visit [facility] [address] [place] [address] Alpesh Jenkins MD PAF (paroxysmal [...] this topic Medical Devices Implanted Type Area Conductor Symphonic Orchestra Device Identifier Shelf Expiration Date Model / Serial / Lot Monitor,Cardi ac,Lux,Dxii+I cm - [id number] Implanted:Qty : 1 on 12/09/2023 by Alpesh Jenkins MD at [facility] Implantable Loop Recorder Left: Chest [email or web address] 03/31/2025 [id number] / [id number] / Procedures Procedure Name Priority Date/Time Associated Diagnosis Comments CARDIAC DEVICE CHECK CHECK - REMOTE Routine 11/15/2024 10:30 AM EDT Awareness of heartbeats CARDIAC DEVICE CHECK - REMOTE - LOOP RECORDER (ILR) Routine 10/27/2024 12:00 AM EDT from Last 3 Months Results * CARDIAC DEVICE CHECK - REMOTE - LOOP RECORDER (ILR) (11/15/2024 10:30 AM EDT) Alpesh Jenkins MD CV IMPLANTABLE CARDIAC DEVICE [place] OCEDURES Final Result [facility] * Cardiac device check - Remote loop recorder (ILR) (10/27/2024 12:00 AM EDT) Anatomical Region Laterality Modality Other 10/27/2024 Alpesh Jenkins MD CV IMPLANTABLE CARDIAC DEVICE [place] OCEDURES Final Result from Last 3 Months [place] [phone] GENERIC OTHER EDU [facility] [place] [address] Care Teams Urogynecology Physician Relationship Specialty Start Date End Date Alvin Contreras DO [address] [place] [address] [address] [place] [address] PCP - General 05/08/22
--- OUTSIDE RECORDS SUMMARY | 2025-01-18 13:08 | XMS_ITS | Encounter Summary ---
Author Organization [facility] Address [address] [place] [address] Care Team Providers Care Wood Carving Machine Operator Name Role Phone Alvin Contreras DO Primary Care Provider [phone] Source Comments In the event this information is protected by the Federal Confidentiality of Alcohol and Drug AbusePatient Records regulations: The Federal rules restrict any use of the information to criminally investigate or prosecute any alcohol or drug abuse patient.[facility] Encounter Details Date Type Department Care Team (Late st Contact Info) Description 08/21/2017 Patient Msg Medical Records [address] [place] [id number] Provider, [facility] Medical Education Program Social History Tobacco Use [...] 2:20 PM EST Office Visit Endocrinology [address] [place] [address] Gaudencio Lewis MD [address] [place] [address] [address] [place], [place] [id number] Return in about 6 months (around 02/15/2025). documented as of this encounter Visit Diagnoses Not on filedocumented in this encounter Care Teams Wood Carving Machine Operator Relationship Specialty Start Date End Date Alvin Contreras DO [address] [place] [address] PCP - General Internal Medicine 06/19/17 documented as of this encounter
== END 2025-01-18 13:05 | disposition home or self-care (01) ==
LOC: WC 13:06
PROVIDERS: PCP Internal Medicine; Visit Provider Physician Assistant
DX: L84 Corns and callosities (principal)
CPT/HCPCS: G0463

== ENCOUNTER 2025-03-17 09:42 | Outpatient (OUT) | payer MEDICARE, OTHER, SELFPAY ==
--- OUTSIDE RECORDS SUMMARY | 2023-11-11 04:00 | XMS_ITS ---
Author Organization [facility] [place] Address [address] [place] [address] Care Team Providers [employer] Lay Out Engineer Name Role Phone Alvin Contreras DO Primary Care Provider Davin Montes Unavailable [phone] REASON FOR VISIT 3MO-CPAP COMPLIANCE Encounters Encounter Location Date Provider Diagnosis Pulmonary Medicine [facility] [address] [place] [address] 11/11/2023 Davin Reyes Plan Of Treatment No Information Progress Notes * Juan David SHARMA EDOB: 0 (74 yo M)Acc No.[id number]:11/11/2023 UNLOCKED PROGRESS NOTE Follow Up Patient: Jian RAMIREZlas Juanjose :?Davin Reyes DODOB:1950???Age:73 Y ???Sex:MaleDate:11/11/2023hone:[phone]:[address] [place], [place] [id number]:Alvin Contreras DO Subjective: * Chief Complaints: * 1 . 3MO-CPAP COMPLIANCE. * Medical History: Objective: * Vitals: Assessment: Plan: * Treatment: * * Electronic signature of Davin Reyes DO on 03/17/2025 at 09:50 AM ESTSign off status: PendingVisit Status:?R/S (Rescheduled) * Provider: Maura Reyes DO Date: 0 11/11/2023 Generated for Printing/Faxing/eTransmitting on:?03/17/2025 09:50 AM EST
--- OUTSIDE RECORDS SUMMARY | 2024-11-22 05:30 | XMS_ITS ---
Author Organization [facility] in [place] Address [address] [place] [address] Care Team Providers Care Soap Drier Operator Name Role Phone Alvin Contreras DO Primary Care Provider Davin Montes Unavailable [phone] REASON FOR VISIT 1 YEAR REMY Encounters Encounter Location Date Provider Diagnosis Pulmonary Medicine [place] [address] [place] [address] 11/22/2024 Davin Reyes Plan Of Treatment No Information Progress Notes * Juan David SHARMA EDOB: 0 (74 yo M)Acc No.[id number]:11/22/2024 UNLOCKED PROGRESS NOTE Follow Up Patient: Juan David RAMIREZ :?Davin Reyes DODOB:1950???Age:74 Y ???Sex:MaleDate:11/22/2024Phone:[phone]:[address] [place] [address]Pcp:Alvin Contreras DO Subjective: * Chief Complaints: * 1 . 1 YEAR REMY. * Medical History: Objective: * Vitals: Assessment: Plan: * Treatment: * * Electronic signature of Davin Reyes DO on 03/17/2025 at 09:50 AM ESTSign off status: PendingVisit Status:?OFF CANC (OFFICE CANCEL) * Provider: Maura Reyes DO Date: 0 11/22/2024 Generated for Printing/Faxing/eTransmitting on:?03/17/2025 09:50 AM EST
--- OUTSIDE RECORDS SUMMARY | 2025-03-10 13:30 | XMS_ITS | Encounter Summary ---
Author Organization [facility] Address [address] [place], [place] [id number] Care Team Providers Care Breakdown Mill Operator Name Role Phone Alvin Contreras DO Primary Care Provider [phone] Source Comments In the event this information is protected by the Federal Confidentiality of Alcohol and Drug AbusePatient Records regulations: The Federal rules restrict any use of the information to criminally investigate or prosecute any alcohol or drug abuse patient.[facility] Reason for Visit * ReasonCommentsRadiology Review * Consult, Test, Treat (Routine) - ClosedSpecialtyDiagnoses / ProceduresReferred By ContactReferred To Contact Diagnoses Abnormal finding of diagnostic imaging Procedures OFFICE/OUTPATIENT [facility] 60 MINUTES Erica Funez, IAN.[address] [address] Phone: tel: fax: Referral IDStatusReasonStart DateExpiration DateVisits RequestedVisits [id number] PCP Requested Referral Encounter Details DateTypeDepartmentCare Team (Latest Contact Info)Eojfhqxkmht53/21/2025 1:30 PM ESTDistance Health RADIO ACTIONABLE FINDINGS [facility] [address] [place] [id number] Bella Kam APRN.CHARM FILTER OPERATOR HELPER [address] [place] [address] Lymphadenopathy (Primary Dx); Chondrosarcoma (HCC); Abnormal finding of diagnostic imaging Social History Tobacco UseTypesPacks/DayYears UsedDateSmoking Tobacco: NeverPassive Smoke Exposure: PastSmokeless Tobacco: NeverAlcohol UseStandard Drinks/WeekCommentsNot Currently0 (1 standard drink = 0.6 oz pure alcohol)PHQ-2AnswerDate RecordedPHQ-2 vqbiw170Area Deprivation IndexAnswerDate RecordedNational Score (1-100), lower number is lower ohpg461101/13/2023State Score (1-10), lower number is lower ipow050ata from: https://www.neighborhoodatlas.[facility].edu/. Last address used for xpxxjwkrgmk[address] [address]/13/2023Sex and Gender InformationValueDate RecordedSex Assigned at SkmjiTohp23/05/2020 10:00 AM EDT Legal SjxFrsu0406/19/2017 8:05 AM ESTGender IdentityNot on fileSexual Orientation Ukcdmyul65/05/2020 10:00 AM EDTdocumented as of this encounter Functional Status * Are you deaf or do you have serious difficulty hearing?AnswerDate of SzytsljcpgAicbmzRw83/14/2018 4:00 PM Rylee Mendes RN * Are you blind or do you have serious difficulty seeing, even when wearing glasses?AnswerDate of AwkwfxzaalPtnjkzXz75/14/2018 4:00 PM Rylee Mendes RN * Do you have serious difficulty walking or climbing stairs?AnswerDate of UwjlaztyosMxhbhcEe06/14/2018 4:00 PM Rylee Mendes RN * Do you have difficulty dressing or bathing?AnswerDate of AssessmentAuthorNo 08/31/2017 4:00 PM Rylee Mendes RN * Because of a physical, mental, or emotional condition, do you have difficulty doing errands alone such as visiting a doctor's office or shopping?AnswerDate of LeabtjumyyXmdieuQb49/14/2018 4:00 PM Rylee Mendes RN documented as of this encounter Mental Status * Because of a physical, mental, or emotional condition, do you have serious difficulty concentrating, remembering, or making decisions?AnswerEntry Date FurkerAx61/14/2018 4:00 PM Rylee Mendes RN documented in this encounter Progress Notes * Bella Kam, IAN.CHARM FILTER OPERATOR HELPER - 03/10/2025 1:30 PM EST [facility]INDINGS CLINIC PATIENT NAME: Juan David Duque PRIMARY CARE PHYSICIAN: Alvin Contreras DO CHIEF COMPLAINT: Abnormal finding of diagnostic imaging INITIAL VISIT: Yes I have communicated my name and active licensure. The patient's identity and physical location wereverified at the time of this visit. Either the patient or their legal signs and displays sales representative has been informed of the risks and benefits of -- and alternatives to -- treatment through a remote evaluation andconsents to proceed with the evaluation remotely. Patient seen on Audio Only Visit platform. Location of patient: [place] HPI: Subjectively, the patient reports here to discuss actionable finding Has noticed that lymph nodes enlarged for 1 year Stayed the same for about 1 year Thought he had an infection, wearing CPAP for 1 year, mouth dry Went to his family doctor who recommended to keep an eye on it PAST MEDICAL HISTORY Diagnosis Date Arthritis Atrial [...] Maternal Grandmother Anesthesia Problems No Family History Social History[1] Current Outpatient Medications Medication Sig MAGNESIUM ASCORBATE, BULK, MISC multivit-minerals/folic/ginkgo (WOMEN'S 50+ DAILY FORM, GKB, ORAL) Take by mouth. acetaminophen (TYLENOL) 500 mg tablet Take 1 tablet by mouth every 4 hours as needed for pain. calcium carbonate (TUMS) 500 mg chew Take 1 tablet by mouth every hour as needed (mouth or hand numbness or tingling). (Patient not taking: Reported on 02/28/2025) osjxxwi-eluepdinv-wfauzve D3 500 mg-5 mcg (200 unit) per tablet Take 1 tablet by mouth three times a day. Aspirin 81 mg tab Take 81 mg by mouth. (Patient not taking: Reported on 02/28/2025) meloxicam (MOBIC) 15 mg tablet Take 15 mg by mouth once daily. flecainide (TAMBOCOR) 100 mg tablet Take 100 mg by mouth two times a day. Magnesium 30 mg tablet Take 500 mg by mouth once daily. amLODIPine (NORVASC) 10 mg tablet Take 10 mg by mouth once daily. losartan-hydrochlorothiazide (HYZAAR) 100-25 mg per tablet Take 1 tablet by mouth once daily. No current facility-administered medications for this visit. Review of patient's allergies indicates: Allergies Allergen Reactions Penicillins Hives Insects Extract Other: See Comments Insect protein - eyes swell and blistering OBJECTIVE: GENERAL: alert and appropriate, in no distress and well-hydrated, well nourished RESPIRATORY: breathing non-labored CHEST: equal chest rise with normal respiratory effort NM parathyroid w/spect/CT 11/01/2024 Enlarged left paratracheal lymph node is non-specific but could be reactive. Suggest follow-up CT chest in 3 months reassess. 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 Pt feels an enlarged lump on his left neck and has a hx of cancer chondrosarcoma dx'd 2018. Patient and/or POA was made aware and verbalized understanding of actionable finding(s) as stated above and recommended follow up. E consult placed to hem/onc for lymphadenopathy PCP follow up recommended for ongoing longitudinal care. Copy of this note forwarded to PCP unless declined by patient. PCP: Alvin Contreras DO Needs referral to new PCP: N/A All questions answered. Total Time Spent: 15 minutes Bella Kam APRN.CNP Actionable Findings Diagnostic [place] [1] Social History Tobacco Use Smoking status: Never Passive exposure: Past Smokeless tobacco: Never Substance Use Topics Alcohol use: Not Currently Drug use: Never documented in this encounter Plan of Treatment DateTypeDepartmentCare Team (Latest Contact Info)Psxqjlbtckr07/08/2025 4:00 PM ESTVisit (SP) Office Hematology/Oncology [address] [place] [address] [place] [address] Jameson Gr MD [address] [place] [address] [place] [address] Referred for further workup of the lymphadenopathydocumented as of this encounter Visit Diagnoses Diagnosis Lymphadenopathy- Primary Enlargement of lymph nodes 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, site unspecified Abnormal finding of diagnostic imaging Other nonspecific (abnormal) findings on radiological and other examinations of body structure documented in this encounter Care Teams Team MemberRelationshipSpecialtyStart DateEnd Date Alvin Contreras DO [address] [place] [address] PCP - GeneralInternal Medicine06/19/17documented as of this encounter
--- OUTSIDE RECORDS SUMMARY | 2025-03-14 11:00 | XMS_ITS | Encounter Summary ---
Author Organization [facility] Address [address], [address] [place] [address] Care Team Providers Care Industrial Relations Director Name Role Phone Alvin Contreras DO Primary Care Provider [phone] Reason for Visit * ReasonCommentsFollow-upPatient presents for a follow up for REMY. DME: [facility]. Patient denies any complaints or concerns withhis machine. Patient reports great benefit but states he needs a new order for supplies. Encounter Details DateTypeDepartmentCare Team (Latest Contact Info)Ixzaonsfstq24/25/2025 11:00 AM ESTOffice Visit [facility] Pulmonology [address] [place] [address] [address] [place] [address] Davin Reyes DO [address] [facility] [address] [place] [address] REMY (obstructive sleep apnea) (Primary Dx); Abnormal CT of the chest; Paratracheal lymphadenopathy; History of asbestos exposure; History of sarcoma; Obesity (BMI 30.0-34.9) Social History Tobacco UseTypesPacks/DayYears UsedDateSmoking Tobacco: NeverSmokeless Tobacco: Never Tobacco Cessation:Counseling Given: Not Answered Alcohol UseStandard Drinks/WeekCommentsNot Currently0 (1 standard drink = 0.6 oz pure alcohol)Sex and Gender InformationValueDate RecordedSex Assigned at Male03/14/2025 10:58 AM ESTLegal EewRziz4106/02/2012 1:08 AM ESTGender Identity Male03/14/2025 10:58 AM ESTSexual PrpbawzscnfKiycdmrn28/25/2025 10:58 AM EST documented as of this encounter Last Filed Vital Signs Vital SignReadingTime TakenCommentsBlood Ywitiwef751/8203/14/2025 11:12 AM EST Xuohd868203/14/2025 11:12 AM TOTVrdwcxockwi30 ??C (96.8 ??F)03/14/2025 11:12 AM ESTRespiratory Qucr684805/14/2024 11:12 AM ESTOxygen Bnnzlwklox38%03/14/2025 11:12 AM ESTon room airInhaled Oxygen Concentration--Umwjvu682.3 kg (263 lb)03/14/2025 11:12 AM ESTPatient YxlkpbwsAcppib687.2 cm (6' 2.5 )03/14/2025 11:12 AM ESTBody Mass Index33.32105/14/2024 11:12 AM ESTdocumented in this encounter Patient Instructions * Patient Instructions* Davin Reyes DO - 03/14/2025 11:45 AM EST Get the follow-up CT done that [facility] was going to order for the left chest wall calcification and paratracheal lymph node. If the CT chest does not get scheduled by [facility], please let either me or Dr. Contreras know so we can order the CT chest. Continue using the CPAP every night. If you cannot handle the pressures, please contact the office and I will order a PAP titration to evaluate for a BiPAP. documented in this encounter Progress Notes * You Escobar MA - 03/14/2025 11:24 AM EST 03/14/2025 11:23 AM Sleep Medicine Sitting and reading 0 Watching TV 1 Sitting, inactive in a public place (e.g. a theatre or a meeting) 0 As a passenger in a car for an hour without a break 0 Lying down to rest in the afternoon when circumstances permit 1 Sitting and talking to someone 0 Sitting quietly after a lunch without alcohol 0 In a car, while stopped for a few minutes in traffic 0 [place] Sleepiness Score 2 * Davin Reyes DO - 03/14/2025 11:00 AM EST Images from the original note were not included. Date of encounter: 03/14/25 Juan David Duque 1950 (74 y.o.) [address] [facility] [address] Juan David Duque was seen today in the office by me. Below is my assessment and plan of the patient: Assessment & Plan REMY (obstructive sleep apnea) A musz-kj-yaxy encounter was performed with the patient today in order to document continued need for positive airway pressure (PAP). -Current DME: [facility] -Split-night 07/13/2023: AHI 78, titration 72soQ1G -Prior PAP titration: 12/26/2015 @ 09mrS4W -PS12/18/2014; Initial AHI: 50 -Compliance was reviewed from 02/07/2025 to 03/08/2025 -Total days used: 30/ (100%) days -Total days of use >4 hours: 29/30 (97%) days with median use of 5 hours 45 minutes -Current model: AirSense 11 AutoSet -Current mode: CPAP @ 94msO0Z -Residual AHI: 10.5 -Median air leak: 1.5L/min -Mask/harness fitting: Mask fits well -Sleep quality with PAP: Restful -Residual daytime hypersomnolence: Denies -Recommendations: Patient has excellent compliance and voices improvement in his symptoms associatewith sleep apnea. However his AHI is not at goal <5). His prior visit, AHI was elevated at 11.2;this was after decreasing his pressure from 36hcK3P to 59shI3P -with this change, his AHI increasedfrom 6.3. He continues to complain of a pressure that feels too high. I do not want to lower it any further as AHI continues to be elevated. I discussed changing to auto CPAP, but I suspect the pressures will be too high to lower the AHI. I suggested going for PAP titration to see if he is a candidate for BiPAP. I explained between CPAP and BiPAP titration. He did not voice any particular interest in these options and wished to remain on his current pressures. Once again, I explained that his REMY is suboptimally treated with (though it is much better than the original AHI 78). He also deniesany significant residual symptoms. For now, patient elected to remain on his current settings. He was encouraged to call the office if he reconsiders or becomes more symptomatic. -This documentation authorizes that the patient's DME may request to renew, reorder, and/or replacetubing, mask, filter, any other associated supplies, and the PAP device (if applicable). Abnormal CT of the chest Incidental finding of left anterior chest wall linear calcification. I do not have the imaging to review. He has a history of asbestos exposure and history of sarcoma. Patient is somewhat concerned about this. He states that [facility] is arranging a follow-up study to investigate this as well as the leftparatracheal enlarged lymph node. Instructed patient to contact either me or Dr. Contreras if the CT is not ordered by [facility]. Paratracheal lymphadenopathy History of asbestos exposure History of sarcoma Obesity (BMI 30.0-34.9) Increased adiposity may contribute to a restrictive pulmonary physiology. Weight loss is encouraged- decrease calories, increase activity as tolerated. Planned follow-up: Return in about 1 year (around 03/14/2026) for REMY. Data: PFT -Date: 12/20/2015 -Location: [facility] -FEV1/FVC: 77% -FEV1: 91% -FVC: 88% -OZK55-21%: 97% -Bronchodilator response: None -RV: 127% -T% -DLCO: 69% -Flow-volume loop: Normal PFT -Date: 09/16/2013 -Location: [facility] -FEV1/FVC: 74% -FEV1: 90% -FVC: 92% -TSG70-58%: 86% -Bronchodilator response: None -RV: 134% -T% -DLCO: 73% -Flow-volume loop: Mild obstruction 03/14/2025 11:23 AM Sleep Medicine Sitting and reading 0 Watching TV 1 Sitting, inactive in a public place (e.g. a theatre or a meeting) 0 As a passenger in a car for an hour without a break 0 Lying down to rest in the afternoon when circumstances permit 1 Sitting and talking to someone 0 Sitting quietly after a lunch without alcohol 0 In a car, while stopped for a few minutes in traffic 0 [place] Sleepiness Score 2 Subjective: Juan David Duque was previously established with me at [facility] and is now establishing with me at [facility]. He was last seen by me on 11/17/2023. His records from [facility] were reviewed. Patient is doing very well with his CPAP. He has excellent compliance and voices no complaints the mask. He does continue to state the pressure does feel too much at times. Feels well rested upon waking in the morning without any headaches. He has restful sleep. A SPECT/CT was done @ [facility] on 11/01/2024 to evaluate for hyperparathyroidism. A right parathyroid suggested adenoma. Incidental findings included an enlarged non-specific paratracheal lymph node and a linear calcification along LEFT anterior chest wall. I did not have any access to imaging to directly evaluate it. HPI Follow-up Additional comments: Patient presents for a follow up for REMY. DME: [facility]. Patient denies any complaints or concerns with his machine. Patient reports great benefit but states he needs a new order forsupplies. Last edited by You Escobar MA on 03/14/2025 11:24 AM. Review of systems: Review of Systems Constitutional: Negative for fatigue. HENT: Negative for sore throat. Respiratory: Negative for cough, chest tightness, shortness of breath and wheezing. Cardiovascular: Negative for chest pain. Psychiatric/Behavioral: Negative for sleep disturbance (Managed with CPAP). All other systems reviewed and are negative. Exam: BP 130/82 (BP Site: Left Upper Arm, Patient Position: Sitting, BP Cuff Size: Large Adult) Pulse 64 Temp 96.8 ??F (36 ??C) (Infrared) Resp 16 Ht 1.892 m (6' 2.5 ) Wt 119.3 kg (263 lb) Comment: Patient Reported SpO2 96% Comment: on room air BMI 33.32 kg/m?? Physical Exam Constitutional: Appearance: Normal appearance. HENT: Mouth/Throat: Mouth: Mucous membranes are moist. Pharynx: Oropharynx is clear. Comments: Mallampati III Cardiovascular: Rate and Rhythm: Normal rate and regular rhythm. Pulmonary: Effort: Pulmonary effort is normal. No respiratory distress. Breath sounds: Normal breath sounds. No wheezing or rhonchi. Neurological: Mental Status: He is alert. Psychiatric: Mood and Affect: Mood normal. Behavior: Behavior normal. 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) 02/16/2025 Primary hyperparathyroidism 02/16/2025 Right foot drop 06/30/2019 Vitamin D deficiency 02/16/2025 Past Surgical History: Procedure Laterality Date EP STUDY/ABLATION INSERTABLE STOKER INSTALLATION MECHANIC PARATHYROIDECTOMY TONSILLECTOMY AND ADENOIDECTOMY Allergies Allergen Reactions Penicillins Hives and Rash Atorvastatin Other (See Comments) Carvedilol Diarrhea Insect Extract Other (See Comments) Eyes swell and blistering Meperidine Metoprolol Current Outpatient Medications Medication Sig Dispense Refill vitamin D 25 MCG (1000 UT) CAPS Take by mouth baclofen (LIORESAL) 10 MG tablet Take 1 tablet by mouth as needed aspirin 81 MG EC tablet Take 1 tablet by mouth daily Coenzyme Q10 100 MG TABS Take 100 mg by mouth daily flecainide (TAMBOCOR) 100 MG tablet Take 1 tablet by mouth 2 times daily losartan-hydroCHLOROthiazide (HYZAAR) 100-25 MG per tablet Take 1 tablet by mouth daily Magnesium Gluconate 550 MG TABS Take 500 mg by mouth Multiple Vitamins-Minerals (MULTI COMPLETE) CAPS Take 1 tablet by mouth verapamil (CALAN SR) 120 MG extended release tablet Take 1 tablet by mouth nightly Potassium Gluconate 595 (99 K) MG TABS Take by mouth ascorbic acid (VITAMIN C) 1000 MG tablet Take 1 tablet by mouth daily amLODIPine (NORVASC) 10 MG tablet Take 1 tablet by mouth daily No current facility-administered medications for this visit. Immunization History Administered Date(s) Administered COVID-19VANGIE (Pfizer), (age 12y+), IM, 30mcg/0.3mL 12/22/2023, 12/22/2024 COVID-19, Inactive, PFIZER Bivalent, DO NOT Dilute, (age 12y+) 03/19/2022, 11/28/2022 COVID-19, Inactive, PFIZER MUKHERJEE top, DO NOT Dilute, (age 12 y+) 09/23/2021 COVID-19, Inactive, PFIZER PURPLE top, DILUTE for use, (age 12 y+) 05/29/2020, 06/19/2020, 02/04/2021 Social History Tobacco Use Smoking status: Never Smokeless tobacco: Never Substance Use Topics Alcohol use: Not Currently Family History Problem Relation Age of Onset Kidney Disease Mother Lymphoma Father An electronic signature was used to authenticate this note. -Davin Reyes DO, PharmD, FACOI documented in this encounter Plan of Treatment DateTypeDepartmentCare Team (Latest Contact Info)Plmogjbseud78/10/2026 1:00 PM ESTOffice Visit [facility] Pulmonology [address] [place] [address] 6 [place] [address] Davin Reyes DO [address] [place] [address] 6 [place] [address] 1 YR F/U OSAdocumented as of this encounter Visit Diagnoses Diagnosis REMY (obstructive sleep apnea)- Primary Obstructive sleep apnea (adult) (pediatric) Abnormal CT of the chest Nonspecific (abnormal) findings on radiological and other examination of other intrathoracic organs Paratracheal lymphadenopathy History of asbestos exposure Personal history of contact with and (suspected) exposure to asbestos History of sarcoma Personal history of malignant neoplasm of bone Obesity (BMI 30.0-34.9) Obesity, unspecified documented in this encounter Additional Health Concerns AssessmentNoted TimeA fall risk assessment has been completed for the patient 03/14/2025 11:13 AM ESTdocumented as of this encounter Care Teams Team MemberRelationshipSpecialtyStart DateEnd Date Alvin Contreras DO [address] [place] [address] PCP - GeneralInternal Aanhnmsc27/21/25documented as of this encounter
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
--- OUTSIDE RECORDS SUMMARY | 2025-03-17 09:49 | XMS_ITS | CCD ---
Author Organization [facility] Providers Care Vacuum Tank Tender Name Role Phone PHYSICIAN, DEFAULT Unavailable Unavailable PHYSICIAN, DEFAULT Unavailable ALVIN White Unavailable Unavailable Alvin Lo DO Primary Care Provider DR ALVIN LO Primary Care Unavailable HANNA TORRES Admitting Unavailable HANNA TORRES Attending Unavailable ZIEBADOLPH, DR TIFFANY Elizondo Consulting Unavailable HANNA TORRES [...] Primary Care Provider Nhan PhD, Bhavik Unavailable [phone] Amanda Mustafa DO Unavailable ARLENE DEGROOT Attending Unavailable AMANDA MUSTAFA Attending Unavailable REINA JOYA Referring Unavailable AMANDA MUSTAFA Attending Unavailable AMANDA MUSTAFA Attending Unavailable Alvin Lo DO Primary Care Provider ALVIN LO Primary Care Unavailable GENEVA BUTLER Attending Unavailable GENEVA BUTLER Admitting Unavailable Alvin Lo DO Primary Care Provider [phone] Alvin Lo DO Attending Provider [phone] Geneva Butler MD Attending Provider [phone] Provider, Outside Attending Provider Unavailable Foreign Torres DO Attending Provider [phone] Kathy Nguyen CMA Attending Provider Unavaila ayo oL Alvin Primary Care Provider Teresita Alvin Attending Provider Amanda Mustafa DO Attending Provider [phone] LYDIA DAVIS Referring Unavailable SUSAN, LYDIA Referring Unavailable SUSAN, LYDIA Referring Unavailable SUSAN, LYDIA Referring Unavailable SUSAN, LYDIA Attending Unavailable CATY, RAFAEL Attending Unavailable SUSAN, LYDIA Attending Unavailable ZOIE, DREA Attending Unavailable SUSAN, LYDIA Referring Unavailable SUSAN, LYDIA Referring Unavailable SUSAN, LYDIA Referring Unavailable SUSAN, LYDIA Referring Unavailable BUTLER, GENEVA MANDUJANOE Attending Unavailable DONALD, HERBER MALENA Referring Unavailable [...] ALVIN E Primary Care Unavailable BUTLER, GENEVADHARA MANDUJANOE Attending Unavailable BALL, ALVIN E Primary Care Unavailable DONALD, HERBER MALENA Attending Unavailable BALL, ALVIN E Primary Care Unavailable DONALD, HERBER MALENA Referring Unavailable BALL, ALVIN E Primary Care Unavailable DONALD, HERBER MALENA Attending Unavailable BALL, ALVIN E Primary Care Unavailable DONALD, HERBER MALENA Referring Unavailable BALL, ALVIN E Primary Care Unavailable Allergies Allergy ClassificationReported Allergen(s)Allergy TypeDate of OnsetReaction(s) Facility (2 sources)meperidineDrug Rjppcmm93-54-9280Hfz [facility] Repository (12 sources)Penicillins; Translations: [PENICILLINS]Drug allergy (disorder) 13-05-7588VHT, Unknown ReactionThe [facility] Repository (4 sources)PenicillinsDrug Urjuuct11-10-9141[facility] (19 sources)Insects Extract; Translations: [INSECTS EXTRACT]Drug Allergy 80-75-3370Sxsuv: See [facility] (8 sources)atorvastatinDrug Rdvcded16-19-4701Hxmneuc, Unknown ReactionOhiohealth [facility] (2 sources)PenicillinDrug AllergyPixifly Other (2 sources)Substance with penicillin structure and antibacterial mechanism of action (substance)Drug allergyPixifly Other (8 sources)Meperidine; Translations: [MEPERIDINE]Drug Thstkuf34-35-1292Q[facility] (7 sources)PenicillinsDrug Owozdxt53-06-2486Qyird, Rash, OtherNOND Healthcare (12 sources)PenicillinsDrug Nfygrio15-08-0431XmqujRkwtyzsua Clinic (1 source)carvedilol; Translations: [CARVEDILOL]Drug Lxkqqnp66-53-9523GpbqswudvjNor[facility] Rep[facility] (1 source)Metoprolol; Translations: [METOPROLOL]Drug Kiqhqzj33-73-8974BntatnzqgvNorwalk Memorial Hospital Repository Medications Current Medications MedicationDrug Class(es)DatesSig (Normalized)Sig (Original)acetaminophen 500 mg oral tablet (2 sources)Start: 23-73-3932yoxm 1 tablet by mouth every four hours as needed acetaminophen (TYLENOL) 500 mg tablet Take 1 tablet by mouth every 4 hours as needed for pain. 11/15/2024 ActiveamLODIPine 10 mg oral tablet (20 sources)Dihydropyridine Calcium Channel BlockerStart: 16-46-3290inzz 1 tablet by mouth once dailyAmlodipine 10 mg tablet Active 10 MG PO Daily September 01, 2023 12:00am Complies with drug therapyStart: 98-26-0576mwnz 4 tablets by mouth twice dailyamLODIPine (NORVASC) 2.5 mg tablet Take 10 mg by mouth twice daily. 3 08/02/2018 ActiveComment on above:Take 10 mg by mouth twice daily. amoxicillin 875 mg oral tablet (2 sources)Penicillin-class AntibacterialStart: 31-80-6435hums 1 tablet by mouth twice dailyAmoxicillin 875 MG amoxicillin 875mg, 1 (one) tablet two times daily # 10, 04/04/2022, No Refill. Active Oral two times daily for 5 Mar, Activeascorbic acid 1000 mg oral tablet (3 sources)Vitamin Ctake 1 tablet by mouth once dailyascorbic acid (Vitamin C) 1000 MG tablet Take 1,000 mg by mouth Daily Activeaspirin 81 mg oral tablet (17 sources)Platelet Aggregation Inhibitor, Nonsteroidal Anti-inflammatory Drug Aspirin 81 mg tab Take 81 mg by mouth. Active End: 91-18-4427mhzr 1 tablet by mouth once dailyaspirin 325 mg tablet Take 325 mg by mouth once daily. 11/01/2024 DiscontinuedComment on above:Take 325 mg by mouth once daily.baclofen 10 mg oral tablet (12 sources)gamma-Aminobutyric Acid-ergic AgonistStart: 46-13-0917dzmc 1 tablet by mouth once daily at bedtimeBaclofen 10 mg tablet Active 0 .ROUTE .COMPLEX June 12, 2024 9:55am TAKE 1 TABLET BY MOUTHAT BEDTIME EVERY NIGHT Complies with drug therapyStart: 09-01-2023 End: 04-31-9416kbir 1 tablet by mouth once dailyBaclofen 10 mg tablet Discontinued 10 MG PO Daily September 01, 2023 12:00am June 12, 2024 9:55am take 1 tablet by mouth once daily at bedtimeBaclofen 10 MG TAKE 1 TABLET BY MOUTH AT BEDTIME EVERY NIGHT for 90 Activecalcium carbonate 500 mg chewable tablet (2 sources)Start: 08-69-0550tdhi 500 mg by mouth every hour as neededcalcium carbonate (TUMS) 500 mg chew Take 1 tablet by mouth every hour as needed (mouth or hand numbness or tingling). 30 tablet 11/15/2024 Activecalcium carbonate 1250 mg / cholecalciferol 200 unt oral tablet (2 sources)Vitamin DStart: 62-51-9156rkga 1 tablet by mouth three times daily kzriipc-lawtepsrj-farartk D3 500 mg-5 mcg (200 unit) per tablet Take 1 tablet by mouth three times a day. 90 tablet 11/15/2024 Activecholecalciferol 1.25 mg oral capsule (5 sources)Vitamin DStart: 93-19-5486rtyl 1 capsule by mouth every week Cholecalciferol (Vitamin D3) 1,250 mcg (50,000 unit) capsule Active 1250 MCG PO every week 09 16April 11, 2024 1:00am Complies with drug therapyflecainide acetate 100 mg oral tablet (20 sources)AntiarrhythmicStart: 03-04-6739bjud 50 mg by mouth every twelve hoursFlecainide Active 50 MG PO Every 12 hours December 03, 2023 11:02amStart: 39-42-2795Hicllsyznj 100 mg tablet Active 50 MG PO Every 12 hours December 03, 2023 11:02am Complies with drug therapyStart: 10-08-2021 End: 06-21-3442eyrj 1 tablet by mouth every twelve hoursFlecainide 100 mg tablet Discontinued 100 MG PO Every 12 hours September 01, 2023 12:00am December 03, 2023 11:03amStart: 25-32-2853ejxb 1 tablet by mouth twice dailyflecainide (TAMBOCOR) 100 mg tablet Take 100 mg by mouth two times a day. 10/08/2021 Active hydroCHLOROthiazide 25 mg / losartan potassium 100 mg oral tablet (20 sources)Thiazide Diuretic, Angiotensin 2 Receptor BlockerStart: 01-03-2025 take 1 tablet by mouth once dailyLosartan-Hydrochlorothiazide 100-25 mg tablet Active 1 TAB PO Daily January 03, 2025 12:00am Complies with drug therapy Start: 03-20-2017 End: 86-90-2437ymmo 1 tablet by mouth once dailyLosartan-Hydrochlorothiazide 100-25 mg tablet Discontinued 1 TAB PO Daily September 01, 2023 12:00am April 08, 2024 7:46pmComment on above:Take 1 tablet by mouth once daily. Leg Brace (Osmar Ankle Brace) misc (1 source)Start: 16-43-4542Hfi Brace (Osmar Ankle Brace) misc Active 0 .Route 1 January 03, 2025 12:00am AFO right foot. Dx foot drop Dx lifetime. To prevent falls and lessen morbidity and mortality riskLosartan Potassium-HCTZ 100-25MG (2 sources)Start: 17-08-0683Pstokrmo Potassium-HCTZ 100-25MG Losartan Potassium- HCTZ( 100-25MG Oral ) Active -Hx Entry Oral *Pick strength-form from Hua Kang for eRX* Mar, Activemagnesium citrate 58.2 mg/ml oral solution (7 sources)magnesium citrate solution Take by mouth Activemagnesium gluconate 550 mg oral tablet (16 sources)Magnesium 30 mg tablet Take 500 mg by mouth once daily. Active Comment on above:Take 500 mg by mouth once daily. Multivitamin With Iron (1 source)Start: 37-54-5940tmyx 1 tablet by mouth once dailyMultivitamin With Iron Active 1 TAB PO Daily September 01, 2023 12:00amMultivitamin With Iron tablet (5 sources)Start: 48-07-5894movt 1 tablet by mouth once dailyMultivitamin With Iron tablet Active 1 TAB PO Daily September 01, 2023 12:00am Complies with drug therapyStart: 61-04-4903xaxs 1 tablet by mouth once dailyMultivitamin With Iron tablet Active 1 TAB PO Daily September 01, 2023 12:00amStart: 47-82-5023xvzr 1 tablet by mouth once dailyMultivitamin With Iron tablet Active 1 TAB PO Daily August 31, 2023 11:00pmPotassium gluconate (7 sources)POTASSIUM GLUCONATE PO Take by mouth Activeubidecarenone 100 mg oral tablet (7 sources)take 10 tablets by mouth once dailyCoenzyme Q10 100 MG tablet Take 100 mg by mouth Daily Active Completed/Discontinued Medications MedicationDrug Class(es)DatesSig (Normalized)Sig (Original)amiodarone hydrochloride 100 mg oral tablet (12 sources)Antiarrhythmic End: 55-61-3821vcmjzircud (PACERONE) 100 mg tablet Indications: Neoplasm of unspecified behavior of bone, soft tissue, and skin Take 100 mg by mouth once daily. Taking 200 mg's every other day and taking 100mg's every other day. 11/01/2024 DiscontinuedComment on above:Take 100 mg by mouth once daily. Taking 200 mg's every other day and taking 100mg's every other day. clindamycin 300 mg oral capsule (2 sources)Lincosamide AntibacterialStart: 12-13-2024 End: 79-17-6898bjgf 1 capsule by mouth every six hoursClindamycin Hcl 300 mg capsule Discontinued 300 MG PO Every 6 hours December 13, 2024 12:00am January 03, 2025 5:28pmdoxycycline hyclate 100 mg oral capsule (14 sources)Tetracycline-class DrugStart: 08-30-2024 End: 92-09-5908gqtp 1 capsule by mouth twice dailyDoxycycline Hyclate 100 mg capsule Discontinued 100 MG PO Twice daily September 15, 2024 12:10pm September 29, 2024 1:05pmStart: 04-27-2024 End: 03-58-2996posq 1 capsule by mouth twice dailyDoxycycline Hyclate 100 mg capsule Discontinued 100 MG PO Twice daily 14 April 27, 2024 1:00amMarch 2024 3:01pmlosartan potassium 100 mg oral tablet (10 sources)Angiotensin 2 Receptor BlockerStart: 04-08-2024 End: 12-36-3918diuu 1 tablet by mouth once dailyLosartan 100 mg tablet Discontinued 100 MG PO Daily 90 90 April 11, 2024 4:47pm January 03, 2025 5:28pmmeloxicam 15 mg oral tablet (20 sources)Nonsteroidal Anti-inflammatory DrugStart: 03-11-2024 End: 30-14-5318yiot 1 tablet by mouth once dailyMeloxicam 15 mg tablet Discontinued 15 MG PO Daily March 11, 2024 1:00am January 03, 2025 5 :29pm24 hr metoprolol succinate 25 mg extended release oral tablet (11 sources)beta-Adrenergic BlockerStart: 08-23-2021 End: 26-03-0590aekpyoyvwa succinate ER (TOPROL XL) 25 mg 24 hr tablet every 24 hours. 08/23/2021 11/01/2024 DiscontinuedComment on above:q 24 HR.Potassium (12 sources) End: 99-88-3246hxok 300 mg by mouth once dailypotassium (POTASSIMIN ORAL) Take 300 mg by mouth once daily. 11/01/2024 Discontinuedtake 300 mg by mouth once dailypotassium (POTASSIMIN ORAL) Take 300 mg by mouth once daily. Activetake 300 mg by mouth once dailypotassium (POTASSIMIN ORAL) Take 300 mg by mouth once daily. 0 ActiveComment on above:Take 300 mg by mouth once daily. 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, unspecified]Onset: 64-88-6524JtbcygfDpakzfz dysrhythmias (20 sources)Paroxysmal atrial fibrillation; Translations: [Paroxysmal atrial fibrillation]Onset: 012106-59-8664VqnxqsmIpubzfy on above:Echo: LVEF 55%, normal RV size/function, DOMINGO, RVSP 11/2023Echo: LVEF 55%, normal RV size/function, DOMINGO, RVSP 31 11/2023,Echo: LVEF 55%, DOMINGO, normal RV size/f unction, RVSP 54 HADs VASc - 2,Echo: LVEF 55%, normal RV size/function, DOMINGO, RVSP 11/2023,Echo: LVEF 55%, DOMINGO, normal RV size/function, RVSP 54 08/2024LHC: normal - 2012Stress test - no ischemia HADs VASc - 2,Echo: LVEF 55%, normal RV size/function, DOMINGO, RVSP 11/2023,Echo: LVEF 55%, DOMINGO, normal RV size/function, RVSP 54 ardiac dysrhythmias (3 sources)Palpitations; Translations: [PALPITATIONS]Onset: 30-01-0127Rhzfjbsq Deficiency and other anemia (2 sources)Anemia, unspecified; Translations: [Anemia, unspecified]Episodic Deficiency and other anemia (1 source)Anemia; Translations: [Anemia, unspecified]53-05-0041RqepeaupTjzmfonus of lipid metabolism (18 sources)Familial hypercholesterolemia; Translations: [Pure hypercholesterolemia]Onset: 91-26-6285AbseetaOujnsheov hypertension (20 sources)Essential hypertension; Translations: [Essential (primary) hypertension]Onset: 539026-13-1137XanmtviZzesugicuih of prostate (2 sources)Lower urinary tract symptoms due to benign prostatic hypertrophy; Translations: [Benign prostatic hyperplasia with lower urinary tract symptoms] ChronicInflammation; infection of eye (except that caused by tuberculosis or sexually transmitteddisease) (1 source)Hordeolum; Translations: [Hordeolum externum unspecified eye, unspecified eyelid]77-25-6366VbdxfhfpIqcfqei and fatigue (4 sources)Asthenia; Translations: [Weakness]49-17-6218SdremfrgEahpfxphqsj deficiencies (5 sources)Vitamin D deficiency; Translations: [Vitamin D deficiency, unspecified]21-36-5212QlcsntnLtjuukyguxrqyi (2 sources)Localized, primary osteoarthritis of the shoulder region; Translations: [Primary osteoarthritis, left shoulder]ChronicOther and ill- defined heart disease (2 sources)Cardiomegaly; Translations: [Cardiomegaly]Onset: 23-99-2205Jxzrdib Other circulatory disease (2 sources)Pulmonary venous congestion; Translations: [Other specified symptoms and signs involving the circulatory and respiratory systems]06-42-8958Nxnxmgpl Other connective tissue disease (3 sources)Swelling of right lower limb; Translations: [Other specified soft tissue disorders]94-45-7353SwijosimPwepv connective tissue disease (2 sources)Other specified soft tissue disorders; Translations: [Swelling of limb]60-24-7126JmtzwexwKfagk diseases of kidney and ureters (5 sources)Hydronephrosis; Translations: [Unspecified hydronephrosis]03-23-2024 EpisodicOther endocrine disorders (2 sources)Adrenal mass; Translations: [Other specified disorders of adrenal gland]ChronicOther endocrine disorders (9 sources)Primary hyperparathyroidism; Translations: [Primary hyperparathyroidism]02-62-2289EnsipbzXcxdv endocrine disorders (6 sources)Hyperparathyroidism; Translations: [Hyperparathyroidism, unspecified] 49-19-6419ZmqweiwAcfzc endocrine disorders (4 sources)Primary hyperparathyroidism; Translations: [Primary hyperparathyroidism]Onset: 298112-23-8535XncapzoMgjds endocrine disorders (2 sources)Hyperparathyroidism, unspecified; Translations: [Hyperparathyroidism (HCC)]Onset: 90-47-4563VtagefwLmnxw eye disorders (1 source)Chalazion of right upper eyelid; Translations: [Chalazion right upper eyelid]92-26-6309IgczwzurMmpgt nervous system disorders (5 sources)Idiopathic peripheral neuropathy; Translations: [Hereditary and idiopathic neuropathy, unspecified]63-04-7419PyubbmuJdfoh nervous system disorders (4 sources)Common peroneal neuropathy; Translations: [Lesion of sciatic nerve, right lower limb]43-86-0652MksooncQauri nervous system disorders (2 sources)Polyneuropathy; Translations: [Polyneuropathy, unspecified]12-13-2024 ChronicOther nervous system disorders (1 source)Peripheral nerve disease ; Translations: [Polyneuropathy, unspecified] 13-41-5551LnklylfPbvop nervous system disorders (4 sources)Numbness and tingling sensation of skin; Translations: [Anesthesia of skin]27-14-8265GmfxywrqUlooz nutritional; endocrine; and metabolic disorders (8 sources)Obesity; Translations: [Other obesity due to excess calories]Onset: 765479-51-5050BukfheeYxdax nutritional; endocrine; and metabolic disorders (15 sources)Obesity caused by energy imbalance; Translations: [Other obesity due to excess calories]Onset: 404474-53-9120FwsczqyWkueq nutritional; endocrine; and metabolic disorders (5 sources)Obesity, unspecified; Translations: [Obesity, unspecified]12-03-2023 ChronicOther nutritional; endocrine; and metabolic disorders (7 sources)Hypercalcemia; Translations: [Hypercalcemia]76-62-7216MygsrcfLwcwf nutritional; endocrine; and metabolic disorders (2 sources)Hypercalcemia; Translations: [Hypercalcemia]Onset: 08-16-2024 82-10-9577TudoaboTmxsj nutritional; endocrine; and metabolic disorders (1 source)Other obesity due to excess calories; Translations: [Class 1 obesity due to excess calories withoutserious comorbidity with body mass index (BMI) of 34.0 to 34.9 in adult]Onset: 79-18-6656BeitzssBagaq nutritional; endocrine; and metabolic disorders (1 source)Body mass index (BMI) 34.0-34.9, adult; Translations: [Class 1 obesity due to excess calories without serious comorbidity with body mass index (BMI) of 34.0 to 34.9 in adult]Onset: 26-15-4341SboburmTotvp nutritional; endocrine; and metabolic disorders (1 source)Personal history of other endocrine, nutritional and metabolic disease; Translations: [History of primary hyperparathyroidism]Onset: 02-28-2025 EpisodicOther screening for suspected conditions (not mental disorders or infectious disease) (7 sources)Encounter for screening for malignant neoplasm of prostate; Translations: [Patient encounter status]Onset: 925141-91-8114Wvuygyxa Comment on above:PSA: 1.98 - 01/2021, 2.26 - 01/2022, 1.42 - 02/2023, 1.32 02/2024Other skin disorders (1 source)Skin tag; Translations: [Other hypertrophic disorders of the skin] 69-81-3850PjtzaxwhNefht skin disorders (2 sources)Foot callus; Translations: [Corns and callosities]50-11-5609Sqcpmotn Paralysis (16 sources)Monoplegia of lower limb; Translations: [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]Onset: 725311-27-7099LwlgvphUkdpfqvli; thrombophlebitis and thromboembolism (2 sources)H/O: Deep vein thrombosis; Translations: [Personal history of other venous thrombosis and embolism]EpisodicPneumonia (except that caused by tuberculosis or sexually transmitted disease) (2 sources)Pneumonia, unspecified organism; Translations: [Pneumonia, organism unspecified]83-93-5011NgtydaljXriuqtlg codes; unclassified (20 sources)Obstructive sleep apnea syndrome; Translations: [Obstructive sleep apnea (adult) (pediatric)]Onset: 581205-39-7018CqbnwmgOisvnfjf codes; unclassified (5 sources)Obstructive sleep apnea (adult) (pediatric); Translations: [Obstructive sleep apnea (adult)(pediatric)]Onset: 190223-16-1063Igxbiag Skin and subcutaneous tissue infections (9 sources)Cellulitis of leg, excluding foot; Translations: [Cellulitis of right lower limb]52-12-8095AqquptbmKlykuzwsjsb; intervertebral disc disorders; other back problems (2 sources)Lumbar spondylosis; Translations: [Spondylosis without myelopathy or radiculopathy, lumbar region]ChronicUnclassified (1 source)Class 1 obesity due to excess calories without serious comorbidity with body mass index (BMI) of 34.0 to 34.9 in adult; Translations: [Class 1 obesity due to excess calories without serious comorbidity with body mass index (BMI) of 34.0 to 34.9 in adult]Onset: 11-01-2024 Past or Other Problems Problem ClassificationProblemDateDocumented DateEpisodic/ChronicAcquired foot deformities (16 sources)Right foot drop; Translations: [Foot drop, right foot]Onset: 441236-45-0829UwvptodwUrqqe aftercare (1 source)Other shelter (current) drug therapy; Translations: [[facility] CURRENT DRUG THERAPY]Onset: 20-51-2224WlgnxlgrJcbrz bone disease and musculoskeletal deformities (16 sources)Lesion of right thigh bone; Translations: [Disorder of bone, unspecified]Onset: 555335-97-5608PwsfbjjfLhqsm connective tissue disease (4 sources)Pain in left forearm; Translations: [PAIN IN LEFT FOREARM]Onset: 79-21-8568XckyudglPywbo injuries and conditions due to external causes (1 source)History of falling; Translations: [HISTORY OF FALLING]Onset: 39-68-2474BtzkoirpZvoqr nervous system disorders (16 sources)Abnormal gait; Translations: [Unspecified abnormalities of gait and mobility]Onset: 312370-92-6713HnojdmtmHmiad nervous system disorders (16 sources)Skin sensation disturbance; Translations: [Unspecified disturbances of skin sensation]Onset: 706133-62-2452VpzxawgaYxzhv non-traumatic joint disorders (17 sources)Chronic ankle pain; Translations: [Pain in right ankle and joints of right foot]Onset: 657573-56-5058Clxzdgdm Results Test NameValueInterpretationReference IrvtcZtfychtt76([place])D3 [facility] 29-41-238658473022-dtuedquskaxbpr D3 [Mass/Vol]26.6 ng/mLLow31.0-80.0Barberton Citizens HospitalComment on above:Order Comment: Specimen Type: BLOOD SPECIMENOrdering Facility: [facility] Address:[address], [place] [address]Result Comment: Classification of 25 [place] Vitamin D status: Deficiency/Insufficiency: < or = 30 ng/ml. Sufficiency/Optimal Levels: 31-80 ng/mL Toxicity: > 100 ng/mL. 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 Energy loss: No Fractures: broke his leg after he fell after cast removed following chondrosarcoma surgery Loss of Height: down 1/2 inch Joint/bone pain: both ankles, nothing new Back pain: No BM change: No Kidney stones: No Mental status/mood change: No Polydypsia/polyuria: thirsty, but could be due to CPAP Hydration: 6-7 cups water daily Calcium supplement: No, 1-2 slices per day and sometimes milk with cereal Vitamin D: Yes, not sure of dose, ?250u Bisphosphonate: No Other supplements: No All other Review of Systems reviewed and are negative. MAGNESIUM ASCORBATE, BULK, MISC, , Disp: , Rfl: multivit-minerals/folic/ginkgo (WOMEN'S 50+ DAILY FORM, GKB, ORAL), Take by mouth., Disp: , Rfl: acetaminophen (TYLENOL) 500 mg tablet, Take 1 tablet by mouth every 4 hours as needed for pain., Disp: , Rfl: qqkfprc-mvlvvefqe-dkagwqs D3 500 mg-5 mcg (200 unit) per tablet, Take 1 tablet by mouth three times a day., Disp: 90 tablet, Rfl: 0 flecainide (TAMBOCOR) 100 mg tablet, Take 100 mg by mouth two times a day., Disp: , Rfl: Magnesium 30 mg tablet, Take 500 mg by mouth once daily., Disp: , Rfl: amLODIPine (NORVASC) 10 mg tablet, Take 10 mg by mouth once daily., Disp: , Rfl: 3 losartan-hydrochlorothiazide (HYZAAR) 100-25 [...] Grandmother Anesthesia Problems No Family History SOCIAL HISTORY[1] PE: BP 148/70 (BP Site: Left Arm, BP Position: Sitting, BP Cuff Size: Large Adult) Pulse 64 Wt 119.3 kg (263 lb 0.1 oz) BMI 33.77 kg/m? Last 3 Encounter Wt Readings: Date: Wt: 02/28/2025 119.3 kg (263 lb 0.1 oz) 11/01/2024 120.2 kg (264 lb 15.9 oz) 09/13/2024 117.9 kg (259 lb 14.8 oz) Gen - NAD, comfortable, pleasant Neck - No visible goiter, nodular, 25g CVS - RRR no murmurs Lung - CTAB, no rales Abd - +BS, soft, nt/nd Skin - normal texture, normal temperature MSK - 08/22 UE proximal muscle strength bilaterally, No CVA tenderness Neuro - normal relaxation phase of bilateral UE reflexes, No hand tremor Latest Ref Rng 08/16/2024 10/19/2024 11/01/2024 11/14/2024 11/15/2024 Albumin 3.9 - 4.9 g/dL 4.5 Calcium 8.5 - 10.2 mg/dL 11.2 (H) 11.0 (H) 9.2 Phosphorus 2.7 - 4.8 mg/dL 2.2 (L) Glucose 74 - 99 mg/dL 89 108 (H) BUN 9 - 24 mg/dL 21 18 Creatinine 0.73 - 1.22 mg/dL 1.55 (H) 0.86 Sodium 136 - 144 mmol/L 143 140 Potassium 3.7 - 5.1 mmol/L 4.3 4.5 Chloride 98 - 107 mmol/L 107 105 CO2 22 - 30 mmol/L 23 26 Anion Gap 8 - 15 mmol/L 13 9 eGFR >=60 mL/min/1.73m? 47 (L) 90 Calcium, 24 Hr Urine 100.0 - 300.0 mg/24 hr 357.0 (H) Period hr 24 Period 24 Urine Volume 24 hour mL 1,750 Urine Volume 24 hour 1,750 Creatinine 24 hr Ur 1.000 - 2.000 g/24 hr 2.006 (H) Normalized Calcium 1.08 - 1.30 mmol/L 1.44 (H) Ionized Calcium 1.08 - 1.30 mmol/L 1.45 (H) Vitamin D 25 Hydroxy 31.0 - 80.0 ng/mL 32.7 PTH, Intact 15 - 65 pg/mL 106 (H) 16 Vit D1,25 Dihydroxy 19.9 - 79.3 pg/mL 45.7 Intraoperative PTH 15 - 65 pg/mL 73 (H) Intraoperative PTH 405 (H) OSH Labs: 07/18/24 - 24 hour urine Calcim 310.4mg 07/07/24 - Ca 10.5, PTH 91, Vit D 36.6, Cr 1.13 DXA 07/18/24: Bang was seen today for hyperparathyroidism. Diagnoses and all orders for this visit: History of primary hyperparathyroidism -s/p right and left upper parathyroidectomy 11/14/24 -check labs today to monitor (already ordered) -if normal, can have PCP monitor calcium/albumin yearly going forward to screen for recurrence F/u prn The assessment and benefits/risks of the plan were discussed with the patient who expressed understanding and was agreeable to that which is noted above. All documentation from previous visit was copied and pasted, documentation has been reviewed and edited as necessary for today's visit. [1] (more content not included)...NormalBarberton Citizens HospitalPT-Intact SerPl-mCncon 02-49-6253Hatalxoafg.intact [Mass/Vol]60 pg/nSGfnddn95-23UrtsxwsorBarberton Citizens HospitalCommymichigan medical center sault on above:Order Comment: Specimen Type: BLOOD SPECIMENOrdering Facility: [facility] Address:[address] [place], [place] [address]Performed By: #### 2731-8, 91502-6 ####[facility] LABCLIA [id number] [place] [address] [place] Renal function 2000 panelon 15-30-5941Stafimf [Mass/Vol]4.2 g/dLNormal3.9-4.9 [facility] on above:Order Comment: Specimen Type: BLOOD SPECIMENOrdering Facility: [facility] Address:[address] [place], [place] [address]Performed By: #### 2731-8, 70576-1 ####[facility] LABCLIA [id number] [place] [address] [place] Anion gap [Moles/Vol]11 mmol/LNormal8-15[facility] on above:Order Comment: Specimen Type: BLOOD SPECIMENOrdering Facility: [facility] Address:[address] [place], [place] [address]Performed By: #### 2731-8, 15711-1 ####[facility] LABCLIA [id number] [place] [address] [place] AMERICACalcium [Mass/Vol]9.5 mg/dL Normal8.5-10.2COhioHealth Berger Hospital on above:Order Comment: Specimen Type: BLOOD SPECIMENOrdering Facility: [facility] Address:[address] [place], [place] [address]Performed By: #### 2731-8, 34896-8 ####[facility] LABCLIA [id number] [place] [address] [place] AMERICAChloride [Moles/Vol]104 mmol/ACahncb23-803GsymzjegqMagruder Hospital on above:Order Comment: Specimen Type: BLOOD SPECIMENOrdering Facility: [facility] Address:[address] [place], [place] [address]Performed By: #### 2731-8, 74516-7 ####[facility] LABCLIA [id number] [place] [address] [place] AMERICACO2 [Moles/Vol]28 mmol/WCjwykk81-23DowycslwsMagruder Hospital on above:Order Comment: Specimen Type: BLOOD SPECIMENOrdering Facility: [facility] Address:[address] [place], [place] [address]Performed By: #### 2731- 8, 04500-4 ####[facility] LABCLIA [id number] [address] OF [facility] HOSPITALCreatinine [Mass/Vol]1.11 mg/dLNormal 0.73-1.22[facility] on above:Order Comment: Specimen Type: BLOOD SPECIMENOrdering Facility: [facility] Address:[address] [place], [place] [address]Performed By: #### 2731-8, 29716-3 ####[facility] LABCLIA [id number] [address] STATES OF [facility] HOSPITALeGFRcr SerPlBld CKD-EPI 460912 mL/min/1.73m???Normal>=60 [facility] on above:Order Comment: Specimen Type: BLOOD SPECIMENOrdering Facility: [facility] Address:[address] [place], [place] [address]Result Comment: Estimated Glomerular Filtration Rate (eGFR) is calculated using the 2020 CKD-EPI creatinine equation. This equation utilizes serum creatinine, sex, and age as parameters. The creatinine assay has traceable calibration to isotope dilution-mass spectrometry. Refer to KDIGO guidelines for clinical interpretation. In patients with unstable renal function, e.g. those with acute kidney injury, the eGFR may not accurately reflect actual GFR.Performed By: #### 2731-8, 66641-5 ####[facility] LABCLIA [id number] [place] [address] [place] Glucose [Mass/Vol]80 mg/mVKgcgin64-96XbadkycirMagruder Hospital on above: Order Comment: Specimen Type: BLOOD SPECIMENOrdering Facility: [facility] Address:[address] [place], [place] [address]Result Comment: The Indian Diabetes Association (ADA) provides guidance for cutoff values for fast ing glucose and random glucose. The ADA defines [...] Standards of Medical Care in Diabetes 2016, Indian Diabetes Association. Diabetes Care. 2016.39(Suppl 1).Performed By: #### 2731-8, 72765-0 ####[facility] LABCLIA [id number] [place] [address] [place] AMERICAPhosphate [Mass/Vol]3.7 mg/dLNormal2.7-4.8 [facility] on above:Order Comment: Specimen Type: BLOOD SPECIMENOrdering Facility: [facility] Address:[address] [place], [place] [address]Performed By: #### 2731-8, 68366-5 ####[facility] LABIA [id number] [place] [address] [place] Potassium [Moles/Vol]4.2 mmol/LNormal3.7-5.1COhioHealth Berger Hospital on above:Order Comment: Specimen Type: BLOOD SPECIMENOrdering Facility: [facility] Address:[address] [place], [place] [address]Performed By: #### 2731-8, 75617-6 ####[facility] LABCLIA [id number] [place] [address] [place] AMERICASodium [Moles/Vol]143 mmol/L Jwjidq774-714JbgsdgjpvMagruder Hospital on above:Order Comment: Specimen Type: BLOOD SPECIMENOrdering Facility: [facility] Address:[address] [place], [place] [address]Performed By: #### 2731-8, 15523-4 ####[facility] LABCLIA [id number] [place] [address] [place] AMERICAUrea nitrogen [Mass/Vol]18 mg/dLNormal9-24[facility] on above:Order Comment: Specimen Type: BLOOD SPECIMENOrdering Facility: [facility] Address:[address] [place], [place] [address]Performed By: #### 2731-8, 40673-6 ####[facility] LABCLIA [id number] [place] [address] [place] AMERICAOrders Onlyon 04-13-3848Njdnrn [id number] Bang Sharma 1950 M Date Provider Department Center 01/31/2025 [facility] CARD [place] HeartVAS Family History Problem Relation Age of Onset Coronary artery disease Other Hypertension Other Family Status - Relation Status Age at Mother Father OtherNormalUniversity of Hca Houston Healthcare SoutheastBasophils/100 WBC Manual cnt (Bld) Ordered By: Foreign Torres on 40-53-4027Cbgkpxpdz/100 WBC (Bld)0.0 %Low0.2-2.0 [facility] CenterEosinophils/100 WBC Manual cnt (Bld)Ordered By: Foreign Torres on 87-89-9777Pjqwtwejnke/100 WBC (Bld)0.0 %Low0.9-7.0[facility] CenterErythrocyte distribution width Auto (RBC) [Ratio]Ordered By: Foreign Torres on 62-68-1139Dlhtulsyxgw distribution width (RBC) [Ratio]13.2 %11.0-15.0[facility] Medical CenterGlomerular filtration rate (GFR) estimation in non- AmericanOrdered By: Foreign Torres on 12-03-2024 GFR/1.73 sq M.predicted among non-blacks MDRD (S/P/Bld) [Vol rate/Area] mL/min/{1.73_m2}>=60 mL/min/1.73m 2FKettering Health HamiltonHematocrit Auto (Bld) [Volume fraction]Ordered By: Foreign Torres on 31-72-5244Mkhxztjbjx (Bld) [Volume fraction]37.8 %Low42.0-54.0[facility] Hemoglobin [Mass/volume] in BloodOrdered By: Foreign Torres on 12-03-2024 Hemoglobin (Bld) [Mass/Vol]12.7 g/dLLow14.0-18.0[facility] CenterLaboratory - Chemistry and Chemistry - challengeOrdered By: Foreign Torres on 52-54-7632Zzmfoxaek Ql (U)NegativeNEGATIVEOhiohealth Southeastern Medical Center Glucose (U) [Mass/Vol]NegativeNEGATIVEOhiohealth Southeastern Medical CenterKetones Ql (U)NegativeNEGATIVEOhiohealth Southeastern Medical CenterpH (U)5.5 [pH]5.0-9.0 Grant Hospitalpecific gravity (U) [Rel density]1.025 1.005-1.025Ohio[facility] Medical CenterUrobilinogen Qn (U)0.2 {Andre'U}/dL0.2-1.0[facility] Medical CenterCalcium [Mass/Vol]8.5 mg/dL8.5-10.1FKettering Health HamiltonChloride [Moles/Vol]103 mmol/L 98-107Ohio[facility] Medical CenterCO2 [Moles/Vol]24.8 mmol/L21.0-32.0 [facility] CenterCreatinine [Mass/Vol]0.96 mg/dL0.70-1.30 [facility] CenterGFR/1.73 sq M.predicted MDRD (S/P/Bld) [Vol rate/Area]mL/min/{1.73_m2}>=60 mL/min/1.73m 2FKettering Health Hamilton Glucose [Mass/Vol]139 mg/hNEkcb87-131CocnepavjOhiohealth Southeastern Medical CenterPotassium [Moles/Vol]3.3 mmol/LLow3.5-5.1FOhioHealthodium [Moles/Vol]137 mmol/A789-311FlccktsviOhiohealth Southeastern Medical CenterUrea nitrogen [Mass/Vol]14.0 mg/dL7.0-18.0[facility] Medical CenterUrea nitrogen/Creatinine [Mass ratio]14.6 mg/mgOhiohealth Southeastern Medical Center Laboratory - Hematology and Cell countsOrdered By: Foreign Torres on 12-03-2024 Band form neutrophils/100 WBC (Bld)4.0 %0-5FKettering Health Hamilton Lymphocytes/100 WBC (Bld)3.0 %Low20.5-60.0[facility] Monocytes/100 WBC (Bld)4.0 %1.7-12.0[facility] CenterLaboratory - Microbiology and Antimicrobial susceptibilityOrdered By: Foreign Torres on 37-29-3176DBAM-CoV-2 (COVID-19) RNA ELLIOT+probe Ql (Unsp spec)NegativeNEGATIVE [facility] CenterComment on above:This test has not been FDA cleared or approved, but has beenauthorized [...] of the declaration thatcircumstances exist justifying the authoriz ation ofemergency use of in vitro diagnostic tests for detectionand/or diagnosis of Covid-19 under section 564(b)(1) of theAct, 21 U.S.C. 360bbb-3(b)(1), unless the declaration isterminated or authorization is revoked sooner.Laboratory - Specimen informationOrdered By: Foreign Torres on 81-04-6994Rhhapnuuko (U)SL CLOUDYCLEAdams County Regional Medical CenterColor (U)YELLOWYELLOWOhiohealth Southeastern Medical CenterLaboratory - UrinalysisOrdered By: Foreign Torres on 73-10-0019Parfoxgxw esterase Test strip Ql (U)NegativeNEGWilson Street HospitalMucus Ql (Urine sed)NONE SEENNONE SEENOhiohealth Southeastern Medical CenterNitrite Ql (U)NegativeNEGATIVEOhiohealth Southeastern Medical CenterProtein Ql (U)NegativeNEG/TRACEOhiohealth Southeastern Medical CenterLeukocytes [#/volume] corrected for nucleated erythrocytes in Blood by Automated counOrdered By: Foreign Torres on 58-40-0258HSM corrected for nucl RBC Auto (Bld) [#/Vol]9.5 10 3/uL4.0-11.0[facility]red Hospital LimaH Auto (RBC) [Entitic mass] Ordered By: Foreign Torres on 61-71-5479UTB (RBC) [Entitic mass]32.4 pg25.9-34.0 [facility] CenterMCHC Auto (RBC) [Mass/Vol]Ordered By: Foreign Torres on 70-17-6154JLGL (RBC) [Mass/Vol]33.6 g/dL29.9-35.2FKettering Health HamiltonMCV Auto (RBC) [Entitic vol]Ordered By: Foreign Torres on 96-81-5792FBM (RBC) [Entitic vol]96.4 aSPina32.0-94.0[facility] CenterNo Panel InformationOrdered By: Foreign Torres on 67-94-3753Gebnm Bacteria TRACE #/HPFAbnormalNONE SEENOhiohealth Southeastern Medical CenterUrine Culture ReflexedGreen Cross HospitalUrine Occult BloodTRACE-INEGATIVE [facility] Medical CenterUrine Other CastsNONE SEEN #/LPFNONE SEEN [facility] Medical CenterUrine Other CrystalsNone Seen #/HPFNone Seen [facility] CenterUrine RBC2-5 #/HPFAbnormal0-2FKettering Health HamiltonUrine Squamous Epithelial CellsRARE #/LPFNONE/RAREOhiohealth Southeastern Medical CenterUrine WBC2-5 #/HPFAbnormalNONE SEENOhiohealth Southeastern Medical CenterAbsolute Basophils (Manual)0.00 10 3/uL0.00-0.10[facility] Medical CenterBand Neutrophils # (Manual)0.4 10 3/uLHigh0.0-0.3FKettering Health HamiltonEosinophils # (Manual)0.00 10 3/uL0.00-0.70[facility] Medical CenterLymphocytes # (Manual)0.28 10 3/uLLow1.20-3.80[facility] Medical CenterMonocytes # (Manual)0.38 10 3/uL0.30-0.80Grant Hospitalegmented Neutrophils # (Manual)8.45 10 3/uLHigh1.4-6.5 [facility] CenterNo Panel InformationOrdered By: Juanjo Clark on 17-73-3733W-Reactive Protein, Quantitative6.98 mg/dLHigh<=0.50[facility] Medical CenterPlatelet mean volume Auto (Bld) [Entitic vol]Ordered By: Foreign Torres on 24-18-6428Lipzhjws mean volume (Bld) [Entitic vol]9.2 fLLow9.5-13.5 [facility] Medical CenterPlatelets Auto (Bld) [#/Vol]Ordered By: Foreign Torres on 89-42-9554Hsvoxwfcx (Bld) [#/Vol]213 10 3/fB768-157UvdnjpnycOhiohealth Southeastern Medical CenterRBC Auto (Bld) [#/Vol]Ordered By: Foreign Torres on 56-88-3329UOM (Bld) [#/Vol]3.92 10 6/uLLow4.70-6.10Grant Hospitalegmented neutrophils/100 WBC Manual cnt (Bld)Ordered By: Foreign Torres on 12-03-2024 Segmented neutrophils/100 WBC (Bld)89.0 %High43.0-75.0Grant Hospitalerum or plasma anion gap determinationOrdered By: Foreign Torres on 98-23-8223Xuxye gap [Moles/Vol]12.5 mmol/LFKettering Health HamiltonCNPN on 39-22-7133VHKPJftaqgtcu (ENSUMN) BANG SHARMA ([id number]) 1950 M Date Time Provider Department 11/23/24 [...] (mouth or hand numbness or tingling). - jmgmznl-vzclxefie-rusjwsg D3 500 mg-5 mcg (200 unit) per [...] 10 mg by mouth once daily. - losartan-hydrochlorothiazide (HYZAAR) 100-25 mg per tablet Take [...] 06/30/2019 Encounter Status:Closed by FERNANDO DIAZ on 11/23/24NormalCleveland Clinic ClevelandLaboratory - Chemistry and Chemistry - challengeOrdered By: Alvin Lo on 90-28-5486Vzsdemi [Mass/Vol]9.0 mg/dL8.5-10.1FKettering Health HamiltonNo Panel InformationOrdered By: Outside Provider on 79-03-2345Utakecfolij Hormone (Intact)26 pg/fX59-43InrhxdbvvOhiohealth Southeastern Medical CenterComment on above: Performed at: - [facility] [id number] Director: Shahab Rodney PhD, Phone: [phone] 67-15-3326CPXOHtceftpsk (ENSUMN) BANG SHARMA ([id number]) 1950 M Date Time Provider Department 11/18/24 [...] (mouth or hand numbness or tingling). - abuzonv-jybbblrpu-jebgavo D3 500 mg-5 mcg (200 unit) per [...] 10 mg by mouth once daily. - losartan-hydrochlorothiazide (HYZAAR) 100-25 mg per tablet Take [...] 06/30/2019 Encounter Status:Closed by LOIS WISE on 11/18/24NormalCShelby Memorial Hospital Calcium SerPl-mCncOrdered By: Outside Provider on 73-44-8829Vgwaqvj [Mass/Vol] 9.2 mg/dL8.5-10.2FKettering Health HamiltonComment on above:Order Comment: Specimen Type: BLOOD SPECIMEN [facility] Address: [address] [place], [place] [address]Performed By: #### 61762-0 #### [facility] CLIA [id number] [place] [address] [place] AMERICANo Panel InformationOrdered By: Outside Provider on 00-10-9655Doxspsvmiwa Hormone (Intact)16 pg/mL15-65 [facility] CenterPTH-Intact SerPl-mCncon 11-15-2024 Parathyrin.intact [Mass/Vol]16 pg/aCHgpsbc86-81Xkacixnpx HospitalComment on above:Order Comment: Specimen Type: BLOOD SPECIMEN [facility]ing Facility[facility] Address: [facility] [place], [place] [address]Performed By: #### 2731-8 #### [facility] CLIA [id number] [address] [place] [address] STATES OF AMERICAANES POSTPROC EVALon 42-99-2011UMIQ POSTPROC EVALHNO ID: [id number] Author: SONG JORDAN III, MD Service: Anesthesiology Author Type: Anesthesiologist Type: Anesthesia Postprocedure Evaluation Filed: 11/14/2024 12:51 Note Text: POST ANESTHESIA EVALUATION NOTE : 1950 Procedure Summary Date: 11/14/24 Room / Location: [place] [address] / OR Anesthesia Start: 722 Anesthesia Stop: [...] November 14, 2024 TIME: 12:50 PM CSN: [id number] Health PRE-OPon 11-14-2024 ANES PRE-OPHNO ID: [id number] Author: SONG JORDAN III, MD Service: Anesthesiology [...] and consent discussed: yes. Patient / Responsible Constitution Party agrees to proceed: yes Patient / [...] Taken Time BP 137/88 11/14/2445 Pulse 58 11/14/2445 Resp 20 11/14/2445 Temp 36.6 ?C (97.9 ?F) 11/14/24 0645 [...] 500 mg by mouth once daily. - losartan-hydrochlorothiazide (HYZAAR) 100-25 mg per tablet Take [...] November 14, 2024 TIME: 7:03 AM CSN: [id number]ne Harrison [facility] OP NOTon 11-14-2024 BRIEF OP NOTHNO ID: [id number] Author: TIFFANY WESTBROOK MD Service: Endocrine Surgery Author Type: Physician Type: Brief Op Note Filed: 11/14/2024 08:20 Note Text: Brief Operative Note Patient Name: Bang Sharma LOG ID: [id number] Surgery/Procedure Date: 11/14/2024 Surgeon(s)/Proceduralist(s) and Mortgage Protection Specialist(s): Surgeons and Role: * Geneva Butler [...] 11/14/2024 8:10 AM A : right upper 60s59r75 Tissue Parathyroid Gland, Right SURGICAL PATHOLOGY Geneva Butler MD 11/14/2024 7:55 AM B : Left upper 12x9x3 Tissue Parathyroid Gland, Left SURGICAL PATHOLOGY Geneva Butler MD 11/14/2024 8:04 AM C : right upper 69r38y82 Tissue Parathyroid Gland, Right SURGICAL PATHOLOGY Geneva Butler MD 11/14/2024 8:02 AM Implants: * No implants in log * Drains: none Wound Classification: Class 1, operative wound clean, non-traumatic, with no inflammation encountered, no break in technique, gastrointestinal and genitor-urinary tracts not entered Pre-Op/Pre-Procedure Diagnosis: Primary hyperparathyroidism Post-Op/Post-Procedure Diagnosis: same Post-Op Plan: Recover in PACU. SIGNATURE: Tiffany Westbrook MD DATE: 11/14/24 TIME: 8:[address] [facility] COMPLETEon 18-72-1462NJP COMPLETE Ventricular Rate : 64 BPM Atrial Rate : 64 BPM P-R Interval : 164 ms QRS Duration : 192 ms Q-T Interval : 488 ms QTC Calculation(Bazett) : 503 ms Calculated P [place] : 73 degrees Calculated R [place] : -76 degrees Calculated T [place] : 19 degrees Normal sinus rhythm Right bundle branch block Left anterior fascicular block Bifascicular block Septal infarct , age undetermined Abnormal ECG No previous ECGs available Confirmed by KEON MAGAÑA MD ([id number]) on 11/14/2024 12:20:23 PM NAME : BANG SHARMA PID : [id number] : 1950 Gender : Male Race : ORD : [id number] Procedure Date : Nov 14 2024 11:35:23 Edit Date : Nov 14 2024 12:20:28 Diagnosis: Normal sinus rhythm Right bundle branch block Left anterior fascicular block Bifascicular block Septal infarct , age undetermined Abnormal ECG No previous ECGs available Confirmed by KEON MAGAÑA MD ([id number]) on 11/14/2024 12:20:23 PM Test Reason : Post-OP Location : 1 : [place] [address] Overread By : KEON MAGAÑA MD Edited By : KEON MAGAÑA MD Referred By : , Acquired by : RENAY KUMARFlower HospitalINTRAOPERATIVE PTHon 52-73-0269UJYTWWGQTIHKUK PTH73 pg/aOCsdv34-29Foamyhdzs52 Turner StreetComment on above: Order Comment: Specimen Type: BLOOD SPECIMEN [facility] Address: [address] [place], [place] [address]Performed By: #### RIPTH #### [facility] CLIA [id number] [address] [place] [address] [place] OF AMERICAINTRAOPERATIVE JVL343 pg/mL Mssv97-30Ppzgwvhlt25 Payne StreetComment on above:Order Comment: Specimen Type: BLOOD SPECIMEN [facility]ing Facility: [facility] Address: [address] [place], [place] [address]Performed By: #### RIPTH #### [facility] CLIA [id number] [address] [place] [address] STATES OF AMERICAOPERATIVE NOon 11-14-2024 OPERATIVE NOHNO ID: [id number] Author: GENEVA BUTLER MD Service: Endocrine Surgery Author Type: Physician Type: Operative Report Filed: 11/15/2024 06:54 Note Text: [facility] - Operative Report BANG SHARMA : 1950 AGE: 74. SEX: M PATIENT TYPE: A HOSP SVC: ENDOCRINE SCHNEIDER LOCATION: [facility] ATTENDING PHYSICIAN: Geneva Butler MD CSN NUMBER: [id number] DATE OF SURGERY/PROCEDURE: 11/14/2024 INCISION/PROCEDURE START TIME: 7:40 a.m. INCISION CLOSE/PROCEDURE END TIME: 8:16 a.m. PREOPERATIVE DIAGNOSIS: Primary hyperparathyroidism. POSTOPERATIVE DIAGNOSIS: Primary hyperparathyroidism. SURGEON: Geneva Butler MD ECOLOGY TEACHER: Tiffany Westbrook MD SURGERY/PROCEDURE: Parathyroid exploration with [...] Westbrook was asked to serve as assistant professor surgical technology. During the course of the dissection, the assistant professor surgical technology assisted with mobilization, vascular isolation, and division. ESTIMATED BLOOD LOSS: Minimal. DRAINS: None. SPECIMENS: Sent to Pathology: 1. Right upper parathyroid gland. 2. Left upper parathyroid gland. COUNTS: Sponge and needle counts correct. COMPLICATIONS: There were no intraoperative complications. Geneva (more content not included)...[facility] HealthPathology biopsy report Colby (Tiss)on 53-24-7780QY DISCLAIMERNormalOhiohealth Grant Medical CenterComment on above:Order Comment: Specimen Type: TISSUE SPECIMEN [facility]ing Facility[facility] Address: [address] [place] [id number] Comment: Laboratory Developed Test (LDT) Disclaimer: Performance characteristics of immunohistochemical, immunofluorescent, and chromogenic in-situ hybridization tests have been determined by the performing laboratory within [facility]'s [facility] Pathology and Laboratory Medicine Department ([facility], [facility], [facility], [facility], [facility], [facility], or [facility]) in a manner consistent with CLIA requirements. One or more of these tests may not have been cleared or approved by the FDA. [facility] is regulated under CLIA as qualified to perform high- complexity testing. These tests are used for clinical purposes. These should not be regarded asinvestigational or for research. Positive and negative controls stain appropriately.Performed By: #### 77092-3 #### [facility] CLIA [id number] [address] [place] [address] CLIA [id number] [address] [place] [address] REPORTNoSelect Medical Specialty Hospital - ColumbusComment on above:Order Comment: Specimen Type: TISSUE SPECIMEN Ordering Facility: [facility] Address: [address] [place], [place] [address]Result Comment: Surgical Pathology Report Case: [id number] Authorizing Provider: Geneva Butler MD Collected: 11/14/2024 07:55 AM [facility]ing [facility]: [facility] Surgery Received: 11/14/2024 08:04 AM Pathologist: Deysi Singh MD Intraop: Ella Johnson MD Specimens: A) - Parathyroid Gland, Right, right upper 83j18h31 B) - Parathyroid Gland, Left, Left upper 12x9x3 C) - Parathyroid Gland, Right, right upper 76s40z85Ngguajydg By: #### 00806-5 #### [facility] CLIA [id number] [address] [place] [address] LABORATORY CLIA [id number] [address] [place], [place] [address]CLAshtabula County Medical CenterComment on above:Order Comment: Specimen Type: TISSUE SPECIMEN [facility]ing Facility[facility] Address: [address] [place], [place] [address]Result Comment: Pre-op diagnosis: Hyperparathyroidism (HCC) [E21.3]Performed By: #### 77376-0 #### [facility] CLIA [id number] [address] [place] [address] [facility] CLIA [id number] [address] [place], [place] [address]FINSt. Charles HospitalComment on above:Order Comment: Specimen Type: TISSUE SPECIMEN Ordering Facility: [facility] Address: [address] [place], [place] [address]Result Comment: A, C. Right upper parathyroid, excision: - Hypercellular parathyroid. B. Left upper parathyroid, excision: - Hypercellular parathyroid. SHANA November 16, 2024 at 1104 EDT Performed By: #### 83803-4 #### [facility] CLIA [id number] [address] [place] [address] [facility] CLIA [id number] [address] [place], [place] [address]Comment on above:Order Comment: Specimen Type: TISSUE SPECIMEN Ordering Facility: [facility] Address: [address] [place], [place] [address]Result Comment: Diagnostic interpretation performed at: [facility], [address] [place], [place] [address] CLIA# [id number] Nail Machine Operator: Jitendra Dietrichformed By: #### 15470-3 #### [facility] CLIA [id number] [address] [place], [place] [address] [facility] CLIA [id number] [place] [address] [place] OF AMERICAGROSS DESCRIPTIONNormal [facility] Grant Medical CenterComment on above:Order Comment: Specimen Type: TISSUE SPECIMEN Ordering Facility: [facility] Address: [address] [place], [place] [address]Result Comment: A. Parathyroid Gland, Right FSA1: Received fresh for frozen section is one piece of brown soft tissue weighing 0.590 grams and measuring 2.2 x 0.9 x 0.6 cm. A inventory representative section is submitted for frozen section in FSA1. Gross examination performed at [facility], [address] [place], [place] [address]racken , [place] [address] CLIA# [id number] B. Parathyroid Gland, Left FSB1: Received fresh for frozen section is one piece of brown soft tissue weighing 0.245 grams and measuring 0.9 x 0.9 x 0.3 cm. The tissue is entirely submitted for frozen section in FSB1. Gross examination performed at [facility], [address] [place], [place] [address]rackaline Farmer, [place] [address] CLIA# [id number] C. Parathyroid Gland, Right Labeled: ??? Right upper 31 x 18 x 10??? Received: In formalin Size: 2.8 x 1.5 x 0.9 cm Weight: 1640 mg Cassette code: Representatively in C1 (serially section) Gross examination performed at [facility], [address] [place] [address] MSL/MADIHA 11/14/24 12:25 PMPerformed By: #### 87331-6 #### [facility] CLIA [id number] [address] [place] [address] STATES OF [facility] CLIA [id number] [address] [place] [address] [place] OF AMERICAINTRAOPERATIVE DIAGNOSIS NormalOhiohealth Grant Medical CenterComment on above:Order Comment: Specimen Type: TISSUE SPECIMEN Ordering Facility: [facility] Address: [address] [place], [place] [address]Result Comment: A. Parathyroid Gland, Right FSA1: Hypercellular parathyroid tissue (Ella Johnson MD) Intraoperative diagnosis performed at [facility], [facility] [address], [place] [address] CLIA# [id number] B. Parathyroid Gland, Left FSB1: Hypercellular parathyroid tissue (Ella Johnson MD) Intraoperative diagnosis performed at [facility], [address] , [place] [address] CLIA# [id number] By: #### 29844-4 #### [facility] CLIA [id number] [address] [place], [place] [address] [facility] CLIA [id number] [address] [place], [place] [address] [place] [address] STATES OF AMERICABasi metabolic 2000 panelon 74-77-4378Blgjx gap [Moles/Vol]9 mmol/LNormal8-15[facility] Comment on above:Order Comment: Specimen Type: BLOOD SPECIMENOrdering Facility: [facility] Address:[address] [place] [address] Performed By: #### 87011-6 ####[facility] [id number] [place] [address] [place] Calcium [Mass/Vol]11.0 mg/dLHigh8.5-10.2CShelby Memorial HospitalCommymichigan medical center sault on above:Order Comment: Specimen Type: BLOOD SPECIMENOrdering Facility: [facility] Address:[address] [place], [place] [address]Performed By: #### 66297-9 ####[facility] [id number] [place] [address] [place] AMERICAChloride [Moles/Vol] 105 mmol/MRvzaut16-569HrowmmqzqBarberton Citizens HospitalCommymichigan medical center sault on above:Order Comment: Specimen Type: BLOOD SPECIMENOrdering Facility: [facility] Address:[address] [place], [place] [address]Performed By: #### 25021-2 ####[facility] [id number] [place] [address] [place] OF AMERICACO2 [Moles/Vol]26 mmol/LNormal 22-30[facility] on above:Order Comment: Specimen Type: BLOOD SPECIMENOrdering Facility: [facility] Address:[address] [place], [place] [address]Performed By: #### 05260-5 ####[facility] [id number] [place] [address] [place] OF [facility] GALION HOSPITALCreatinine [Mass/Vol]0.86 mg/dLNormal0.73-1.22[facility] on above:Order Comment: Specimen Type: BLOOD SPECIMENOrdering Facility: [facility] Address:[address] [place], [place] [address]Performed By: #### 63528-5 ####[facility] [id number] [place] [address] [place] eGFRcr SerPlBld CKD-EPI 719897 mL/min/1.73m???Normal>=60[facility] on above:Order Comment: Specimen Type: BLOOD SPECIMENOrdering Facility: [facility] Address:[address] [place], [place] [address]Result Comment: Estimated Glomerular Filtration Rate (eGFR) is [...] accurately reflect actual GFR. Performed By: #### 18765-4 ####[facility] [id number] [address] [address] [place] Glucose [Mass/Vol]108 mg/jPVsgx73-70SzunxobepMagruder Hospital on above: Order Comment: Specimen Type: BLOOD SPECIMENOrdering Facility: [facility] Address:[address] [place], [place] [address]Result Comment: The Indian Diabetes Association (ADA) provides guidance for cutoff values for fast ing glucose and random glucose. The ADA defines [...] Standards of Medical Care in Diabetes 2016, Indian Diabetes Association. Diabetes Care. 2016.39(Suppl 1).Performed By: #### 46519-2 ####[facility] [id number] [place] [address] [place] AMERICAPotassium [Moles/Vol]4.5 mmol/L Normal3.7-5.1CShelby Memorial HospitalComment on above:Order Comment: Specimen Type: BLOOD SPECIMENOrdering Facility: [facility] Address:[address] [place], [place] [address]Performed By: #### 13657-7 ####[facility] [id number] [place] [address] [place] [facility] GALION HOSPITALSodium [Moles/Vol]140 mmol/CJqlxtn914-251EqkrhiqfeBarberton Citizens HospitalComment on above:Order Comment: Specimen Type: BLOOD SPECIMENOrdering Facility: [facility] Address:[address] [place], [place] [address]Performed By: #### 18270-8 ####[facility] [id number] [place] [address] [place] OF AMERICAUrea nitrogen [Mass/Vol]18 mg/dLNormal9-24[facility] Comment on above:Order Comment: Specimen Type: BLOOD SPECIMENOrdering Facility: [facility] Address:[address] [place] [address] Performed By: #### 57655-1 ####[facility] [id number] [place] [address] [place] Basophils Auto (Bld) [#/Vol]Ordered By: Geneva Butler on 87-92-4117Twinrmjks (Bld) [#/Vol]0.05 10*3/uL<0.11[facility] Medical CenterBasophils/100 WBC Auto (Bld)Ordered By: Geneva Butler on 42-87-0450Qvdkahmlz/100 WBC (Bld)0.9 %[facility] Medical CenterBlood manual differential comment interpretation narrativeOrdered By: Geneva Butler on 88-35-2925Zgdkxj differential comment Colby (Bld) [Interp]AutoOhiohealth Southeastern Medical CenterCB W Auto Differential panel (Bld)on 34-16-3692Vpdhqiojp (Bld) [#/Vol]0.05 10*3/uLNormal<0.11COhioHealth Berger Hospital on above:Order Comment: Specimen Type: BLOOD SPECIMENOrdering Facility: [facility] Address:[address] [place], [place] [address]Performed By: #### 01163-7 ####[facility] [id number] [place] [address] [place] AMERICABasophils/100 WBC (Bld)0.9 %NormalMagruder Hospital on above:Order Comment: Specimen Type: BLOOD SPECIMENOrdering Facility: [facility] Address:[address] [place], [place] [address]Performed By: #### 81765-3 ####[facility]IA [id number] [place] [address] [place] AMERICADifferential cell count method Nom (Bld)AutoNormalCOhioHealth Berger Hospital on above:Order Comment: Specimen Type: BLOOD SPECIMENOrdering Facility: [facility] Address:[address] [place], [place] [address]Performed By: #### 62843- 8 ####[facility]IA [id number] [place] [address] [place] AMERICAEosinophils (Bld) [#/Vol]0.11 10*3/uLNormal<0.46[facility] on above:Order Comment: Specimen Type: BLOOD SPECIMENOrdering Facility: [facility] Address:[address] [place], [place] [address]Performed By: #### 66110-4 ####[facility]IA [id number] [place] [address] [place] AMERICAEosinophils/100 WBC (Bld)1.9 % NormalMagruder Hospital on above:Order Comment: Specimen Type: BLOOD SPECIMENOrdering Facility: [facility] Address:[address] [place], [place] [address]Performed By: #### 19312-0 ####[facility]IA [id number] [address], [place] [address] [place] OF AMERICAErythrocyte distribution width (RBC) [Ratio]13.6 %Normal 11.5-15.0[facility] on above:Order Comment: Specimen Type: BLOOD SPECIMENOrdering Facility: [facility] Address:[address] [place], [place] [address]Performed By: #### 06344-5 ####[facility]IA [id number] [place] [address] [place] AMERICAHematocrit (Bld) [Volume fraction]44.3 %Wwwgld94.0-51.0 [facility] on above:Order Comment: Specimen Type: BLOOD SPECIMENOrdering Facility: [facility] Address:[address] [place], [place] [address]Performed By: #### 33439-9 ####[facility] [id number] [place] [address] [place] AMERICAHemoglobin (Bld) [Mass/Vol]14.3 g/dLGbtpyg82.0-17.0[facility] on above:Order Comment: Specimen Type: BLOOD SPECIMENOrdering Facility: [facility] Address:[address] [place], [place] [address]Performed By: #### 29201-9 ####[facility] [id number] [place] [address] [place] Immature granulocytes (Bld) [#/Vol]10*3/uLNormal<0.10[facility] Comment on above:Order Comment: Specimen Type: BLOOD SPECIMENOrdering Facility: [facility] Address:[address] [place] [address] Performed By: #### 46575-2 ####[facility]IA [id number] [place] [address] [place] Immature granulocytes/100 WBC (Bld)0.3 %NormalMagruder Hospital on above:Order Comment: Specimen Type: BLOOD SPECIMENOrdering Facility: [facility] Address:[address] [place] [address] Performed By: #### 92672-9 ####[facility] [id number] [place] [address] [place] Lymphocytes (Bld) [#/Vol]1.48 10*3/uLNormal1.00-4.00[facility] Comment on above:Order Comment: Specimen Type: BLOOD SPECIMENOrdering Facility: [facility] Address:[address] [place] [address] Performed By: #### 42387-9 ####[facility] [id number] [place] [address] [place] Lymphocytes/100 WBC (Bld)25.3 %NormalMagruder Hospital on above: Order Comment: Specimen Type: BLOOD SPECIMENOrdering Facility: [facility] Address:[address] [place], [place] [address]Performed By: #### 43720- 8 ####[facility]IA [id number] [place] [address] [place] AMERICAMCH (RBC) [Entitic mass]31.2 pg Onajdj28.0-34.0[facility] on above:Order Comment: Specimen Type: BLOOD SPECIMENOrdering Facility: [facility] Address:[address] [place], [place] [address]Performed By: #### 52051-0 ####[facility] [id number] [place] [address] [place] AMERICAMCHC (RBC) [Mass/Vol]32.3 g/dL Ygybts41.5-36.0[facility] on above:Order Comment: Specimen Type: BLOOD SPECIMENOrdering Facility: [facility] Address:[address] [place], [place] [address]Performed By: #### 15762-1 ####[facility]IA [id number] [address] STATES OF AMERICAMCV (RBC) [Entitic vol]96.7 fL Jytqcy03.0-100.0[facility] on above:Order Comment: Specimen Type: BLOOD SPECIMENOrdering Facility: [facility] Address:[address] [place], [place] [address]Performed By: #### 83024-2 ####[facility]IA [id number] [place] [address] [place] AMERICAMonocytes (Bld) [#/Vol]0.70 10*3/uLNormal<0.87[facility] on above:Order Comment: Specimen Type: BLOOD SPECIMENOrdering Facility: [facility] Address:[address] [place], [place] [address]Performed By: #### 95417-1 ####[facility]IA [id number] [place] [address] [place] AMERICAMonocytes/100 WBC (Bld)11.9 % NormalMagruder Hospital on above:Order Comment: Specimen Type: BLOOD SPECIMENOrdering Facility: [facility] Address:[address] [place], [place] [address]Performed By: #### 58829-9 ####[facility]CLIA [id number] [place] [address] [place] AMERICANeutrophils (Bld) [#/Vol]3.50 10*3/uLNormal1.45-7.50[facility] on above:Order Comment: Specimen Type: BLOOD SPECIMENOrdering Facility: [facility] Address:[address] [place], [place] [address]Performed By: #### 93475-0 ####[facility]IA [id number] [place] [address] [place] AMERICANeutrophils/100 WBC (Bld)59.7 %NormalMagruder Hospital on above:Order Comment: Specimen Type: BLOOD SPECIMENOrdering Facility: [facility] Address:[address] [place] [address] Performed By: #### 96374-9 ####[facility]IA [id number] [place] [address] [place] Nucleated RBC (Bld) [#/Vol]10*3/uLNormal<0.01[facility] on above:Order Comment: Specimen Type: BLOOD SPECIMENOrdering Facility: [facility] Address:[address] [place] [address] Performed By: #### 70801-7 ####[facility] [id number] [place] [address] [place] Nucleated RBC/100 WBC (Bld) [Ratio]0.0 /100 WBCNormalCShelby Memorial Hospital Comment on above:Order Comment: Specimen Type: BLOOD SPECIMENOrdering Facility: [facility] Address:[address] [place] [address] Performed By: #### 56848-6 ####[facility] [id number] [place] [address] [place] Platelet mean volume (Bld) [Entitic vol]9.1 fLNormal9.0-12.7COhioHealth Berger Hospital on above:Order Comment: Specimen Type: BLOOD SPECIMENOrdering Facility: [facility] Address:[address] [place], [place] [address]Performed By: #### 64873-5 ####[facility] [id number] [place] [address] [place] Platelets (Bld) [#/Vol]307 10*3/hMUwyiti694-231McjmppkqlMagruder Hospital on above:Order Comment: Specimen Type: BLOOD SPECIMENOrdering Facility: [facility] Address:[address] [place] [address] Performed By: #### 00710-4 ####[facility] [id number] [place] [address] [place] RBC (Bld) [#/Vol]4.58 10*6/uLNormal4.20-6.00[facility] on above:Order Comment: Specimen Type: BLOOD SPECIMENOrdering Facility: [facility] Address:[address] [place], [place] [address]Performed By: #### 28982-0 ####[facility] [id number] [place] [address] [place] AMERICAWBC (Bld) [#/Vol]5.86 10*3/uLNormal3.70-11.00[facility] on above:Order Comment: Specimen Type: BLOOD SPECIMENOrdering Facility: [facility] Address:[address] [place], [place] [address]Performed By: #### 59415-1 ####[facility]IA [id number] [place] [address] [place] AMERICACalcium.ionized [Moles/Vol]on 83-96-6381Hglfqsf.ionized (Bld) [Mass/Vol]1.45 mmol/LHigh1.08-1.30[facility] on above:Order Comment: Specimen Type: BLOOD SPECIMENOrdering Facility: [facility] Address:[address] [place], [place] [address]Performed By: #### 1995-0 ####[facility]IA [id number] [place] [address] [place] AMERICACalcium.ionized adjusted to pH 7.4 (Bld) [Moles/Vol]1.44 mmol/LHigh 1.08-1.30[facility] on above:Order Comment: Specimen Type: BLOOD SPECIMENOrdering Facility: [facility] Address:[address] [place], [place] [address]Performed By: #### 1995-0 ####[facility]IA [id number] [place] [address] [place] AMERICAECG COMPLETEon 33-27-7178KKR COMPLETEVentricular Rate : 56 BPM Atrial Rate : 56 BPM P-R Interval : 174 ms QRS Duration : 192 ms Q-T Interval : 508 ms QTC Calculation(Bazett) : 490 ms Calculated P [place] : 85 degrees Calculated R [place] : -69 degrees Calculated T [place] : 33 degrees SINUS BRADYCARDIA LEFT AXIS DEVIATION COMPLETE RIGHT BUNDLE BRANCH BLOCK ABNORMAL ECG Confirmed by ENRIQUE ROSALES MD ([id number]) on 12/08/2024 9:49:14 AM NAME : BANG SHARMA PID : [id number] : 1950 Gender : Male Race : ORD : [id number] Procedure Date : Nov 01 2024 11:55:05 Edit Date : Dec 08 2024 09:49:21 Diagnosis: SINUS BRADYCARDIA LEFT AXIS DEVIATION COMPLETE RIGHT BUNDLE BRANCH BLOCK ABNORMAL ECG Confirmed by ENRIQUE ROSALES MD ([id number]) on 12/08/2024 9:49:14 AM Test Reason : Location : 314 : J14 J14 Overread By : ENRIQUE ROSALES MD Edited By : ENRIQUE ROSALES MD Referred By : GENEVA BUTLER Acquired by : Yesica MCCAULEYleveland Clinic ClevelandEosinophils/100 WBC Auto (Bld)Ordered By: Geneva Butler on 51-48-8084Orrqlyskvjb/100 WBC (Bld)1.9 % [facility] Medical CenterErythrocyte distribution width Auto (RBC) [Ratio]Ordered By: Geneva Butler on 34-20-2261Cdwthdddlck distribution width (RBC) [Ratio]13.6 %11.5-15.0[facility] Medical CenterGlomerular filtration rate [Volume Rate/Area] in Serum, Plasma or Blood by CreatinineOrdered By: Geneva Butler on 64-80-8020Dlgeccavah filtration rate [Volume Rate/Area] in Serum, Plasma or Blood by Nbpiitvpbl78 mL/min/1.73m???>=60[facility] Comment on above:Estimated Glomerular Filtration Rate (eGFR) is calculated using the 2020 CKD-EPI creatinine equation. This equation utilizes serum creatinine, sex, and age as parameters. The creatinine assay has traceable calibration to isotope dilution-mass spectrometry. Refer to KDIGO guidelines for clinical inte rpretation. In patients with unstable renal function, e.g. those with acute kidney injury, the eGFRmay not accurately reflect actual GFR.HISTORY PHYSICALon 76-80-9171GKETJUN PHYSICALHNO ID: [id number] Author: LUANA BOSS PA-C Service: ? Author Type: Physician Mortgage Protection Specialist Type: H&P Filed: 11/02/2024 11:04 Note [...] and and ASA Follows with Dr. Davis [facility] 10/25/24 SVT (supraventricular tachycardia) (HCC) H/o cardioversion 2015 Sinus lanette on ECG today Managed with flecainide Follows with Dr. Davis, [facility] 10/25/24 ANESTHESIA FINDINGS: Intubation History: No abnormal [...] physical activity. STOP-Bang Score: STOP-Bang Score: (+REMY) KUH2BX0-NTEj Score: Age: >=75 Sex: male Hypertension history: Yes KPS2GG5-KPSl Score: ARISCAT Score: Age: 51-80 Preoperative SpO2: [...] is scheduled for procedure on 11/14/2024 at [facility]. REVIEW OF SYSTEMS: General: No weight loss, malaise or fevers. Neurological: No history of TIA's, stroke, ROOM COOLER INSTALLER tumor, impaired sensorium, hemiplegia, paraplegia or quadraplegia. [...] is not taking an (more content not included)...NormalBarberton Citizens HospitalHematocrit Auto (Bld) [Volume fraction]Ordered By: Geneva Butler on 93-35-0765Oznbyhfjdb (Bld) [Volume fraction]44.3 %39.0-51.0[facility] Medical CenterHemoglobin [Mass/volume] in BloodOrdered By: Geneva Butler on 40-19-6795Xdiqtdhifu (Bld) [Mass/Vol]14.3 g/dL13.0-17.0[facility] CenterLaboratory - Chemistry and Chemistry - challengeOrdered By: Geneva Butler on 38-37-8179Ycjmhll [Mass/Vol]11.0 mg/dLHigh8.5-10.2FKettering Health HamiltonChloride [Moles/Vol]105 mmol/S89-202DnytmkpivOhiohealth Southeastern Medical CenterCO2 [Moles/Vol]26 mmol/X53-68VybmfigbyOhiohealth Southeastern Medical CenterCreatinine [Mass/Vol]0.86 mg/dL 0.73-1.22[facility] Medical CenterGlucose [Mass/Vol]108 mg/mPKxin67-11 [facility] Medical CenterComment on above:The Indian Diabetes Association (ADA) provides guidance for cutoff [...] diabetes.Reference: Standardsof Medical Care in Diabetes 2016, Indian Diabetes Association. Diabetes Care. 2016.39(Suppl 1). Potassium [Moles/Vol]4.5 mmol/L3.7-5.1FOhioHealthodium [Moles/Vol]140 mmol/R017-578XkuwxjxzeOhiohealth Southeastern Medical CenterUrea nitrogen [Mass/Vol]18 mg/dL9-24[facility] CenterLaboratory - Hematology and Cell countsOrdered By: Geneva Butler on 46-57-6604Oorcynsuyjg (Bld) [#/Vol]0.11 10*3/uL<0.46[facility] Medical CenterImmature granulocytes/100 WBC (Bld)0.3 %[facility] Medical CenterLeukocytes [#/volume] corrected for nucleated erythrocytes in Blood by Automated counOrdered By: Geneva Butler on 61-09-0480KDL corrected for nucl RBC Auto (Bld) [#/Vol]5.86 k/uL3.70-11.00 [facility] Medical CenterLymphocytes Auto (Bld) [#/Vol]Ordered By: Geneva Butler on 68-75-1486Twvvkauubnt (Bld) [#/Vol]1.48 10*3/uL1.00-4.00[facility] Medical CenterLymphocytes/100 WBC Auto (Bld)Ordered By: Geneva Butler on 65-04-8700Hsxnilfktza/100 WBC (Bld)25.3 %[facility] Auto (RBC) [Entitic mass]Ordered By: Geneva Butler on 58-64-4722AVY (RBC) [Entitic mass]31.2 pg26.0-34.0[facility] LimaHC Auto (RBC) [Mass/Vol] Ordered By: Geneva Butler on 64-29-3607HWHF (RBC) [Mass/Vol]32.3 g/dL30.5-36.0 [facility] Medical CenterMCV Auto (RBC) [Entitic vol]Ordered By: Geneva Butelr on 58-06-3316CPZ (RBC) [Entitic vol]96.7 fL80.0-100.0[facility] Medical CenterMonocytes Auto (Bld) [#/Vol]Ordered By: Geneva Butler on 11-01-2024 Monocytes (Bld) [#/Vol]0.70 10*3/uL<0.87[facility] Monocytes/100 WBC Auto (Bld)Ordered By: Geneva Butler on 74-10-9085Bowuahoho/100 WBC (Bld)11.9 %[facility] Medical CenterNM PARATHYROID W SPECT/CTon 50-01-1390NB PARATHYROID W SPECT/CT* * *Final Report* * * DATE OF [...] be communicated with the ordering provider via [employer] staff message or phone message by [employer] within 2 business days of report finalization. --END OF FINDING-- Movie Stunt Performer: BARBARA Transcribe Date/Time: Nov 02 2024 7:32A Dictated by : BHAVIK RIVERA DO This examination was interpreted and the report reviewed and electronically signed by: BHAVIK RIVERA DO on Nov 02 2024 7:42AM EST [id number] ACTIONABLEInvalid Interpretation CodeCleOhioHealth Dublin Methodist HospitalNeutrophils Auto (Bld) [#/Vol]Ordered By: Geneva Butler on 96-38-8122Eejwoyuxuwm (Bld) [#/Vol]3.50 10*3/uL1.45-7.50[facility] Medical CenterNeutrophils/100 WBC Auto (Bld) Ordered By: Geneva Butler on 94-96-9628Nuitaamppvg/100 WBC (Bld)59.7 %[facility] CenterNo Panel InformationOrdered By: Geneva Butler on 11-01-2024 Immature Granulocyte # (Auto)<0.03 k/uL<0.10[facility] Ionized Calcium (pH Adjusted)1.44 mmol/LHigh1.08-1.30[facility] CenterNucleated RBC Auto (Bld) [#/Vol]Ordered By: Geneva Butler on 11-01-2024 Nucleated RBC (Bld) [#/Vol]10*3/uL<0.01[facility] Nucleated erythrocytes [Presence] in Blood by Automated countOrdered By: Geneva Butler on 76-39-0696Sknhixnzv RBC Auto Ql (Bld)0.0 /100{WBC}[facility] CenterPlatelet mean volume Auto (Bld) [Entitic vol]Ordered By: Geneva Butler on 53-16-3535Oblpkmqv mean volume (Bld) [Entitic vol]9.1 fL9.0-12.7 [facility] CenterPlatelets Auto (Bld) [#/Vol]Ordered By: Geneva Butler on 62-40-2787Yopzrznxm (Bld) [#/Vol]307 10*3/bA278-454OkxwjuavuOhiohealth Southeastern Medical CenterRBC Auto (Bld) [#/Vol]Ordered By: Geneva Butler on 85-38-7824OVF (Bld) [#/Vol]4.58 10*6/uL4.20-6.00[facility] Hospitalerum ionized calcium measurement using ion specific electrode (mass/volume)Ordered By: Geneva Butler on 60-85-5967Vznlsbc.ionized ISE [Mass/Vol]1.45 mmol/LHigh1.08-1.30 [facility] Hospitalerum or plasma anion gap determinationOrdered By: Geneva Butler on 66-14-0229Nabqg gap [Moles/Vol]9 mmol/L-[facility] CenterOffice Visiton 69-22-3178Qbnzok-up [id number] Bang Sharma 1950 M Date Provider Department Center 10/25/2024 LYDIA MARQUEZ Flory Panda Family History Problem Relation Age of Onset Coronary artery disease Other Hypertension Other Family Status - Relation Status Age at Mother Father Other Level of Service:114[address] [place] OFFICE/OUTPATIENT ESTABLISHED LOW MDM 20 [facility]CAL[facility] 24 HR URINEon 01-61-8734Gdhhhbh (24H U) [Mass/Time]357.0 mg/24 odDbdt906.0-300.0[facility] on above:Order Comment: Specimen Type: URINE SPECIMENOrdering Facility: [facility] Address:[address] [place], [place] [address]Performed By: #### UCALCD ####[facility] LABCLIA [id number] [address] LABCLIA [id number] [place], [place] [address]PTAQLM (HRS)24 hrNormAdena Pike Medical Center on above:Order Comment: Specimen Type: URINE SPECIMENOrdering Facility: [facility] Address:[address] [place], [place] [address]Performed By: #### UCALCD ####[facility] LABCLIA [id number] [address] LABCLIA [id number] [place], [place] [address]Dffqkbgw volume (24H U)1.75 LNormalMagruder Hospital on above:Order Comment: Specimen Type: URINE SPECIMENOrdering Facility: [facility] Address:[address] [place], [place] [address]Performed By: #### UCALCD ####[facility] LABCLIA [id number] [address] [facility] LABCLIA [id number] [place], [place] [address]KSZFTDOCTE, 24 HOUR URINEon 10-19-2024 Creatinine (24H U) [Mass/Time]2.006 g/24 hrHigh1.000-2.000[facility] on above:Order Comment: Specimen Type: URINE SPECIMENOrdering Facility: [facility] Address:[address] [place], [place] [address]Performed By: #### UCRD ####[facility] LABIA [id number] [place] [id number] [facility] LABCLIA [id number] [place], [place] [address]YSXKHG (HRS)24 hrNormalCOhioHealth Berger Hospital on above:Order Comment: Specimen Type: URINE SPECIMENOrdering Facility: [facility] Address:[address] [place] [address] Performed By: #### UCRD ####[facility] LABIA [id number] [place] [id number] [facility] LABCLIA [id number] [place], [place] [address]Vawjrhcm volume (24H U)1.75 LNormalMagruder Hospital on above:Order Comment: Specimen Type: URINE SPECIMENOrdering Facility: [facility] Address:[address] [place], [place] [address]Performed By: #### UCRD ####[facility]PITALIA [id number] [place] [id number] [facility] LABCLIA [id number] [place], [place] [address]NFCXxa 90-72-1529MABW Telephone (CosNetUMN) BANG SHARMA ([id number]) 1950 M Date Time Provider Department 10/04/24 GENEVA BUTLER During your visit today, we recorded the following information about you: Dora Larkin 10/04/2024 6:50 PM Signed 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 - losartan-hydrochlorothiazide (HYZAAR) 100-25 mg per tablet Take 1 tablet by mouth once daily. 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*06/30/2019 Gait abnormality [R26.9] 06/30/2019 Disturbance of skin sensation [R20.9] 06/30/2019 Encounter Status:Closed by DORA LARKIN on [facility]/24[facility] [id number] Visit (ENSUMN) BANG SHARMA ([id number]) 1950 M Date Time Provider Department 09/13/24 12:20 PM GENEVA BUTLER During your visit today, we recorded the following information about you: Pulse Blood pressure Weight Height 75/minute 124/63 123.2 kg 1.892 m Arlene Florian MA 09/13/2024 11:05 AM Signed Thank you for choosing the [facility] Department of Endocrinology, Diabetes and Metabolism. Did you know that you need to call 48 hours in advance of your scheduled visit, if you are unable to make your appointment? The Endocrinology and Metabolism [place] thanks you for your commitment, because patients not showing to their appointment results in a lost opportunity for patients to receive [facility] care at the [facility]. To Cancel an appointment, please choose one of the following: - Call the Appointment Call Center at [phone] - From [employer], Go to Appointments - Cancel Appts If cancelling, consider your need to reschedule to prevent further delays in your care. To Schedule an appointment, please choose one of the following: - Call the Appointment Call Center at [phone] - From [employer], Go to Appointments - Request an Appt Geneva Butler MD 09/13/2024 12:00 PM Signed The [facility] Endocrinology and Metabolism [place] Department of Endocrine Surgery Geneva Butler M.D. [address] [place] [address] Mr. Bang Sharma was seen in the [...] Alvin Lo D.O. Referring Provider: HERBER DONALD [[id number]] Allergies As of Date: 09/13/2024 Noted Allergy Reaction PENICILLINS 04/07/2014 4 - Hives INSECTS EXTRACT 10/31/2020 14 - Other: See Comments Comments: Insect protein - eyes swell and blistering Date Reviewed: 09/13/2024 Reviewed by: Arlene Florian MA - Fully Assessed Reason for Visit: Consult [173] Thyroid Problem [110] Hyperparathyroidism [1465] Primary Visit Diagnosis:Hyperparathyroidism (HCC) [E21.3 (more content not included)...NormalVan Wert County HospitalvelandOrders Onlyon 10-12-7899Guwjgp Only [id number] Bang Sharma 1950 M Date Provider Department Center 08/26/2024 [facility] [place] [place] HeartVAS Family History Problem Relation Age of Onset Coronary artery disease Other Hypertension Other Family Status - Relation Status Age at OtherNormalUniversity of Hca Houston Healthcare SoutheastBasophils Auto (Bld) [#/Vol]on 84-68-0834Hynesrffe (Bld) [#/Vol]Automated basophil count0.0-0.1FKettering Health HamiltonBasophils/100 WBC Auto (Bld)on 76-59-9603Pmyfuxefj/100 WBC (Bld)Automated basophil %Low0.2-2.0[facility] Eosinophils/100 WBC Auto (Bld)on 57-73-1557Gamgnbqnnin/100 WBC (Bld)Automated eosinophil %Low0.9-7.0[facility] CenterErythrocyte distribution width Auto (RBC) [Ratio]on 07-39-4714Nffyqmjgweu distribution width (RBC) [Ratio]Erythrocyte distribution width [Ratio] by Automated count11.0-15.0 [facility] CenterEstimated glomerular filtration rate (GFR) non- Americanon 02-34-5643JTT/1.73 sq M.predicted among non-blacks MDRD (S/P/Bld) [Vol rate/Area]Estimated glomerular filtration rate (GFR) non->=60 mL/min/1.73m 2FKettering Health HamiltonGlobulin Calc (S) [Mass/Vol]on 24-63-6274Flvaphzs (S) [Mass/Vol]Serum globulin measurement by calculation (mass/volume)[facility] CenterHematocrit Auto (Bld) [Volume fraction]on 62-06-9241Ixfiupffhd (Bld) [Volume fraction]Hematocrit [Volume Fraction] of Blood by Automated pkkseDmi55.0-54.0[facility] CenterHemoglobin [Mass/volume] in Bloodon 49-60-1138Mvlucilohn (Bld) [Mass/Vol]Hemoglobin [Mass/volume] in QjrumHeb63.0-18.0[facility] CenterLaboratory - Chemistry and Chemistry - challengeon 08-25-2024 Albumin [Mass/Vol]2.8 g/dLLow3.4-5.0[facility] CenterALP [Catalytic activity/Vol]45 U/RIxj27-007ShngiuxdkOhiohealth Southeastern Medical CenterALT [Catalytic activity/Vol]31 U/R31-25FevfmskkhOhiohealth Southeastern Medical CenterAST [Catalytic activity/Vol]23 U/M52-66JtcmylkxlOhiohealth Southeastern Medical CenterBilirubin [Mass/Vol]0.3 mg/dL0.2-1.0[facility] CenterCalcium [Mass/Vol]9.6 mg/dL8.5-10.1FKettering Health HamiltonChloride [Moles/Vol]101 mmol/L 98-107[facility] CenterCO2 [Moles/Vol]26.0 mmol/L21.0-32.0 [facility] CenterCreatinine [Mass/Vol]0.90 mg/dL0.70-1.30 [facility] CenterGFR/1.73 sq M.predicted MDRD (S/P/Bld) [Vol rate/Area]mL/min/{1.73_m2}>=60 mL/min/1.73m 2FKettering Health Hamilton Glucose [Mass/Vol]93 mg/rU63-131AyjctetneOhiohealth Southeastern Medical CenterPotassium [Moles/Vol]3.5 mmol/L3.5-5.1FKettering Health HamiltonProtein [Mass/Vol] 6.1 g/dLLow6.4-8.2FOhioHealthodium [Moles/Vol]133 mmol/L Hps167-685FockgkackOhiohealth Southeastern Medical CenterUrea nitrogen [Mass/Vol]18.0 mg/dL 7.0-18.0[facility] CenterUrea nitrogen/Creatinine [Mass ratio] 20.0 mg/mgOhiohealth Southeastern Medical CenterLaboratory - Hematology and Cell countson 43-08-5113Mbnrobjg granulocytes/100 WBC (Bld)0.4 %0.0-0.5FKettering Health HamiltonLeukocytes [#/volume] corrected for nucleated erythrocytes in Blood by Automated counon 26-95-7572YAA corrected for nucl RBC Auto (Bld) [#/Vol]Leukocytes [#/volume] corrected for nucleated erythrocytes in Blood by Automated coun4.0-11.0[facility] CenterLymphocytes Auto (Bld) [#/Vol]on 68-88-1728Ljjvbwadeso (Bld) [#/Vol]Lymphocytes [#/volume] in Blood by Automated count1.2-3.8[facility] CenterLymphocytes/100 WBC Auto (Bld)on 59-78-8818Tkxwlnwyfoq/100 WBC (Bld)Lymphocytes/100 leukocytes in Blood by Automated uyaluLjv27.5-60.0[facility] LimaH Auto (RBC) [Entitic mass]on 71-02-9049WKE (RBC) [Entitic mass]MCH [Entitic mass] by Automated count25.9-34.0[facility] Medical CenterMCHC Auto (RBC) [Mass/Vol]on 26-20-4269AYLI (RBC) [Mass/Vol]MCHC [Mass/volume] by Automated count29.9-35.2FKettering Health HamiltonMCV Auto (RBC) [Entitic vol]on 66-86-9547JOQ (RBC) [Entitic vol]MCV [Entitic volume] by Automated countHigh 80.0-94.0[facility] CenterMonocytes Auto (Bld) [#/Vol]on 78-25-8147Pcnswlyas (Bld) [#/Vol]Automated blood monocyte countHigh0.3-0.8 [facility] CenterMonocytes/100 WBC Auto (Bld)on 08-25-2024 Monocytes/100 WBC (Bld)Automated monocyte %High1.7-12.0[facility] CenterNeutrophils Auto (Bld) [#/Vol]on 04-18-0060Hymamujtmmm (Bld) [#/Vol]Neutrophils [#/volume] in Blood by Automated count1.4-6.5FKettering Health HamiltonNeutrophils/100 WBC Auto (Bld)on 08-25-2024 Neutrophils/100 WBC (Bld)Automated neutrophil %43.0-75.0[facility] CenterNo Panel Informationon 74-38-4092Svkrfxwtjpo # (Auto)0.0 10 3/uL 0.0-0.7FKettering Health HamiltonImmature Granulocyte # (Auto)0.03 10 3/uL0.00-0.03[facility] CenterPlatelet mean volume Auto (Bld) [Entitic vol]on 38-97-4330Viuwyiok mean volume (Bld) [Entitic vol]Platelet mean volume [Entitic volume] in Blood by Automated count9.5-13.5FKettering Health HamiltonPlatelets Auto (Bld) [#/Vol]on 20-07-5973Lfvddnprv (Bld) [#/Vol] Platelets [#/volume] in Blood by Automated ykvbv672-678RkahozgepOhiohealth Southeastern Medical CenterRBC Auto (Bld) [#/Vol]on 56-77-7021YWN (Bld) [#/Vol]Erythrocytes [#/volume] in Blood by Automated countLow4.70-6.10Grant Hospitalerum or plasma albumin/globulin mass ratioon 35-79-6710Bvmoycw/Globulin [Mass ratio]Serum or plasma albumin/globulin mass ratioGrant Hospitalerum or plasma anion gap determinationon 81-36-2497Lqivc gap [Moles/Vol]Serum or plasma anion gap determinationOhiohealth Southeastern Medical CenterBasophils Auto (Bld) [#/Vol]on 78-15-4917Btrnxhczr (Bld) [#/Vol]Automated basophil count0.0-0.1FK[facility]tering Health HamiltonBasophils/100 WBC Auto (Bld)on 12-68-2695Ievgqsyfd/100 WBC (Bld)Automated basophil %Low0.2-2.0[facility] CenterEosinophils/100 WBC Auto (Bld)on 08-24-2024 Eosinophils/100 WBC (Bld)Automated eosinophil %Low0.9-7.0[facility] CenterErythrocyte distribution width Auto (RBC) [Ratio]on 08-24-2024 Erythrocyte distribution width (RBC) [Ratio]Erythrocyte distribution width [Ratio] by Automated count11.0-15.0[facility] CenterEstimated glomerular filtration rate (GFR) non- Americanon 69-06-3187ZWJ/1.73 sq M.predicted among non-blacks MDRD (S/P/Bld) [Vol rate/Area]Estimated glomerular filtration rate (GFR) non->=60 mL/min/1.73m 2FKettering Health HamiltonGlobulin Calc (S) [Mass/Vol]on 25-18-6291Guykxdua (S) [Mass/Vol] Serum globulin measurement by calculation (mass/volume)[facility] CenterHematocrit Auto (Bld) [Volume fraction]on 52-80-0513Akpxtlzfjc (Bld) [Volume fraction]Hematocrit [Volume Fraction] of Blood by Automated count Low42.0-54.0[facility] CenterHemoglobin [Mass/volume] in Bloodon 25-62-3714Fvwnkdgbgu (Bld) [Mass/Vol]Hemoglobin [Mass/volume] in BloodLow 14.0-18.0[facility] CenterLaboratory - Chemistry and Chemistry - challengeon 47-12-1020Nleaimx [Mass/Vol]3.1 g/dLLow3.4-5.0[facility] CenterALP [Catalytic activity/Vol]50 U/A34-034WmvdunabrOhiohealth Southeastern Medical CenterALT [Catalytic activity/Vol]36 U/G11-93UkkeytxiaOhiohealth Southeastern Medical Center AST [Catalytic activity/Vol]23 U/P11-59CjptdkvsdOhiohealth Southeastern Medical Center Bilirubin [Mass/Vol]0.6 mg/dL0.2-1.0[facility] CenterCalcium [Mass/Vol]9.5 mg/dL8.5-10.1FKettering Health HamiltonChloride [Moles/Vol] 98 mmol/B07-462KztogotbiOhiohealth Southeastern Medical CenterCO2 [Moles/Vol]25.1 mmol/L 21.0-32.0[facility] CenterCreatinine [Mass/Vol]1.09 mg/dL 0.70-1.30[facility] CenterGFR/1.73 sq M.predicted MDRD (S/P/Bld) [Vol rate/Area]mL/min/{1.73_m2}>=60 mL/min/1.73m 2FKettering Health HamiltonGlucose [Mass/Vol]103 mg/kK30-251AcvcyfjwzOhiohealth Southeastern Medical Center Natriuretic peptide B (Bld) [Mass/Vol]1396.0 pg/mLCritically high<=900.0 [facility] CenterComment on above:RESULTS CALLED TOPotassium [Moles/Vol]3.3 mmol/LLow3.5-5.1FK[facility]tering Health HamiltonProtein [Mass/Vol]6.5 g/dL6.4-8.2FOhioHealthodium [Moles/Vol]133 mmol/ZIfp483-371DwxnllpqwOhiohealth Southeastern Medical CenterUrea nitrogen [Mass/Vol]14.0 mg/dL7.0-18.0[facility] CenterUrea nitrogen/Creatinine [Mass ratio]12.8 mg/mgOhiohealth Southeastern Medical CenterLaboratory - Hematology and Cell countson 91-03-0074Qjswnqtm granulocytes/100 WBC (Bld)0.4 %0.0-0.5FKettering Health HamiltonLeukocytes [#/volume] corrected for nucleated erythrocytes in Blood by Automated counon 24-15-1291TDL corrected for nucl RBC Auto (Bld) [#/Vol]Leukocytes [#/volume] corrected for nucleated erythrocytes in Blood by Automated coun4.0-11.0[facility] CenterLymphocytes Auto (Bld) [#/Vol]on 71-25-1869Kxegqscwclh (Bld) [#/Vol]Lymphocytes [#/volume] in Blood by Automated countLow1.2-3.8[facility] Lymphocytes/100 WBC Auto (Bld)on 57-52-1406Jykwuuyjhpd/100 WBC (Bld) Lymphocytes/100 leukocytes in Blood by Automated imjbfFff32.5-60.0[facility] Hospital LimaH Auto (RBC) [Entitic mass]on 01-33-1051LFP (RBC) [Entitic mass]MCH [Entitic mass] by Automated count25.9-34.0[facility] Medical CenterMCHC Auto (RBC) [Mass/Vol]on 07-96-5784YGVP (RBC) [Mass/Vol]MCHC [Mass/volume] by Automated count29.9-35.2FKettering Health HamiltonMCV Auto (RBC) [Entitic vol]on 16-05-1628PLK (RBC) [Entitic vol]MCV [Entitic volume] by Automated hfejzAyvv25.0-94.0[facility] CenterMonocytes Auto (Bld) [#/Vol]on 88-89-8363Ghiwabbdi (Bld) [#/Vol]Automated blood monocyte count 0.3-0.8[facility] CenterMonocytes/100 WBC Auto (Bld)on 71-57-5819Ahtvzfwit/100 WBC (Bld)Automated monocyte %1.7-12.0[facility] Medical CenterNeutrophils Auto (Bld) [#/Vol]on 18-05-5642Knomuzqbsxl (Bld) [#/Vol]Neutrophils [#/volume] in Blood by Automated countHigh1.4-6.5FKettering Health HamiltonNeutrophils/100 WBC Auto (Bld)on 08-24-2024 Neutrophils/100 WBC (Bld)Automated neutrophil %High43.0-75.0[facility] CenterNo Panel Informationon 94-72-8616Qqqcwhfyrbf # (Auto)0.0 10 3/uL 0.0-0.7FKettering Health HamiltonImmature Granulocyte # (Auto)0.04 10 3/uLHigh0.00-0.03[facility] CenterPlatelet mean volume Auto (Bld) [Entitic vol]on 38-72-3415Womtnlan mean volume (Bld) [Entitic vol]Platelet mean volume [Entitic volume] in Blood by Automated countLow9.5-13.5FKettering Health HamiltonPlatelets Auto (Bld) [#/Vol]on 21-84-8969Zftvkjpwe (Bld) [#/Vol]Platelets [#/volume] in Blood by Automated ryfhc337-234PzeklktbhOhiohealth Southeastern Medical CenterRBC Auto (Bld) [#/Vol]on 49-29-7555PQT (Bld) [#/Vol]Erythrocytes [#/volume] in Blood by Automated countLow4.70-6.10Grant Hospitalerum or plasma albumin/globulin mass ratioon 44-18-0046Ptcmwxp/Globulin [Mass ratio]Serum or plasma albumin/globulin mass ratioGrant Hospitalerum or plasma anion gap determinationon 38-74-9995Ywvbr gap [Moles/Vol]Serum or plasma anion gap determinationOhiohealth Southeastern Medical CenterBasophils/100 WBC Manual cnt (Bld)on 23-47-9426Yqwvjtufh/100 WBC (Bld) Basophils/100 leukocytes in Blood by Manual countLow0.2-2.0[facility] CenterCNPNon 62-00-3342OXUUZxbcfhqmu (ENSUMN) BANG SHARMA ([id number]) 1950 M Date Time Provider Department 08/23/24 GENEVA BUTLER ENSUMN During your visit today, [...] and taking 100mg's every other day. - losartan-hydrochlorothiazide (HYZAAR) 100-25 mg per tablet Take [...] 06/30/2019 Encounter Status:Closed by MICHELLE ALMAGUER on 08/23/24[facility]Eosinophils/100 WBC Manual cnt (Bld)on 43-88-6898Yiaxbxpgqsy/100 WBC (Bld)Eosinophils/100 leukocytes in Blood by Manual countLow0.9-7.0[facility] CenterEstimated glomerular filtration rate (GFR) non- Americanon 96-63-3263LMF/1.73 sq M.predicted among non-blacks MDRD (S/P/Bld) [Vol rate/Area]Estimated glomerular filtration rate (GFR) non- >=60 mL/min/1.73m 2FKettering Health HamiltonGlobulin Calc (S) [Mass/Vol] on 97-06-7089Ejciptal (S) [Mass/Vol]Serum globulin measurement by calculation (mass/volume)[facility] CenterINR in Platelet poor plasma by Coagulation assayon 09-15-4064GSG Coag (PPP) [Relative time]INR in Platelet poor plasma by Coagulation assayOhiohealth Southeastern Medical CenterComment on above: DESIRED INR:2.0-3.0 CONDITIONS NOT LISTED BELOW2.5-3.5 FOR PROSTHETIC HEART VALVE REPLACEMENT2.5-3.5 RECURRENT THROMBOSISLaboratory - Chemistry and Chemistry - challengeon 32-74-0050Xfvvdjn [Mass/Vol]3.8 g/dL3.4-5.0[facility] CenterALP [Catalytic activity/Vol]64 U/G14-361MubsanbjyOhiohealth Southeastern Medical CenterALT [Catalytic activity/Vol]41 U/W14-63JjhdkclywOhiohealth Southeastern Medical CenterAST [Catalytic activity/Vol]17 U/H40-14IpvswfxkmOhiohealth Southeastern Medical CenterBilirubin [Mass/Vol]0.7 mg/dL0.2-1.0[facility] Calcium [Mass/Vol]9.7 mg/dL8.5-10.1FK[facility]tering Health HamiltonChloride [Moles/Vol]98 mmol/C52-036UsxdwuzhlOhiohealth Southeastern Medical CenterCO2 [Moles/Vol]26.1 mmol/L21.0-32.0[facility] CenterCreatinine [Mass/Vol]1.19 mg/dL 0.70-1.30[facility] CenterGFR/1.73 sq M.predicted MDRD (S/P/Bld) [Vol rate/Area]mL/min/{1.73_m2}>=60 mL/min/1.73m 2FKettering Health HamiltonGlucose [Mass/Vol]130 mg/yCZnid78-592BkzzvumxvOhiohealth Southeastern Medical Center Lactate [Moles/Vol]1.0 mmol/L0.4-2.0[facility] CenterNatriuretic peptide B (Bld) [Mass/Vol]1038.0 pg/mLHigh<=900.0[facility] CenterPotassium [Moles/Vol]3.6 mmol/L3.5-5.1FK[facility] Protein [Mass/Vol]7.3 g/dL6.4-8.2FOhioHealthodium [Moles/Vol]131 mmol/FCgn143-592HdffnbvtpOhiohealth Southeastern Medical CenterUrea nitrogen [Mass/Vol]13.0 mg/dL7.0-18.0[facility] CenterUrea nitrogen/Creatinine [Mass ratio]10.9 mg/mgOhiohealth Southeastern Medical Center Laboratory - Hematology and Cell countson 74-52-5500Zitmaqgljve/100 WBC (Bld)4.0 %Low20.5-60.0[facility] CenterMonocytes/100 WBC (Bld)6.0 % 1.7-12.0[facility] CenterLaboratory - Microbiology and Antimicrobial susceptibilityon 47-20-1802DGMW-CoV-2 (COVID-19) RNA ELLIOT+probe Ql (Unsp spec)NegativeNEGATIVEOhiohealth Southeastern Medical CenterComment on above: This test has not been FDA cleared or approved, but has beenauthorized [...] the declaration isterminated or authorization is revoked sooner.No Panel Informationon 08-45-3942Lurzuhvr Basophils (Manual)0.00 10 3/uL0.00-0.10[facility] CenterEosinophils # (Manual)0.00 10 3/uL0.00-0.70[facility] CenterLymphocytes # (Manual)0.52 10 3/uLLow1.20-3.80[facility] CenterMonocytes # (Manual)0.79 10 3/uL0.30-0.80Grant Hospitalegmented Neutrophils # (Manual)11.88 10 3/uLHigh1.4-6.5FKettering Health HamiltonTroponin I High Akfizztveev74.4 pg/mL4.0-76.1FKettering Health HamiltonComment on above:CUT-OFF POINTS HAVE BEEN ESTABLISHED BASED ON THE FOURTHUNIVERSAL DEFINITION OF MYOCARDIAL INFARCTION. THE UPPERREFERENCE LIMIT (URL) OF TROPONIN, DEFINED THE 99THPERCENTILE OF cTnI DISTRIBUTION IN A REFERENCE POPULATION,HAS BEEN CONFIRMED THE DECISION THRESHOLD FOR MIDIAGNOSIS.99TH PERCENTILE = 76.2 PG/MLNOTE: HIGH-SENSITIVITY TROPONIN ASSAY IS NOT INTENDED TO BEUSED IN ISOLATION BUT SHOULD BE INTERPRETED IN CONJUNCTIONWITH OTHER DIAGNOSTIC AND CLINICAL INFORMATION.Bedside Influenza Type A AntigenNegativeOhiohealth Southeastern Medical CenterComment on above:Negative for Flu A protein antigen. Infection due to Flu Acannot be ruled out. Flu A antigen in thesample may bebelow the detection limit of the test.Bedside Influenza Type B AntigenNegativeOhiohealth Southeastern Medical CenterComment on above:Negative for Flu B protein antigen. Infection due to Flu Bcannot be ruled out. Flu B antigen in thesample may bebelow the detection limit of the test. Prothrombin time (PT)on 66-68-5636LH Coag (PPP) [Time]Prothrombin time (PT)High 9.0-11.6FOhioHealthegmented neutrophils/100 WBC Manual cnt (Bld)on 23-02-7691Ixrylosyv neutrophils/100 WBC (Bld)Manual blood segmented neutrophils/100 iqjjxaweodPjic23.0-75.0Grant Hospitalerum or plasma albumin/globulin mass ratioon 38-10-0848Zjndicp/Globulin [Mass ratio] Serum or plasma albumin/globulin mass ratioOhiohealth Southeastern Medical Center Serum or plasma anion gap determinationon 16-18-9940Hznpc gap [Moles/Vol]Serum or plasma anion gap determinationOhiohealth Southeastern Medical CenterCNPNon 92-98-5421RHMLSckiykyiy (ENDOLN) ZACHARYBANG Sow ([id number]) 1950 M Date Time Provider Department 08/18/24 HERBER DONALD ENDOLN During your visit today, we recorded the following information about you: Marina Mccracken MA 08/18/2024 10:39 AM Signed A form has been received from [facility] for DXA Bone Densitometry Report. Sent [...] Assessed Reason for Visit: Results [95] Cmt: [facility] - DXA scan Prescriptions as of [...] and taking 100mg's every other day. - losartan-hydrochlorothiazide (HYZAAR) 100-25 mg per tablet Take [...] 06/30/2019 Encounter Status:Closed by HERBER DONALD on 08/18/24NoHocking Valley Community Hospitalmiriam [id number] (JOLYNN) BANG SHARMA ([id number]) 1950 M Date Time Provider Department 08/17/24 [...] Hyperparathyroid PATIENT DEMOGRAPHICS Name: Bang Sharma CCF#: [id number] : 1950 AGE: [age] year old Contact Numbers: Home: (home) Work: There is no work phone number on file. PATIENT PHYSICIAN INFORMATION Referring Doctor: Address: Phone: Pediatrician/Medical Doctor: Address: Phone: PCP: Alvin Lo ([facility]) [address] [place] [address] PAST TREATMENT Office notes: SEE EPIC Medications: [...] Consult [173] Cmt: FACE SHEET Primary Visit Diagnosis:Hyperparathyroidism (HCC) [E21.3] Order(s):CALCIUM, IONIZED [SQICA] Order #: [id number] FUTURE VITAMIN D1 25-DIHYDR [[id number]] Order #: [id number] FUTURE CALCIUM, 24 HR URINE [SQUCALCD] Order #: [id number]. #:[id number] CREATININE, 24 HOUR URINE [SQUCRD] Order #: [id number]. #:[id number] DXA-AXIAL SKELETON [[id number]] Order #: [id number] FUTURE DXA-FOREARM SKELETON [[id number]] Order #: [id number] FUTURE Prescriptions as of 08/17/2024 - meloxicam [...] and taking 100mg's every other day. - losartan-hydrochlorothiazide (HYZAAR) 100-25 mg per tablet Take [...] 06/30/2019 Encounter Status:Closed by EDD SOSA on 08/17/24NormalCShelby Memorial Hospital1,25-dihydroxyvitamin D3 [Mass/Vol]on 83-86-7657MLY D1,25 ZZLEOAGET56.7 pg/eCFidhnf53.9-79.3COhioHealth Berger Hospital on above:Order Comment: Specimen Type: BLOOD SPECIMENOrdering Facility: [facility] Address:[address] [place], [place] [address]Performed By: #### 1988-06, 1648-06 ####[facility] LABCLIA [id number] [address] STATES OF NIXUDXC43([place])D3 [facility] Centeron 08-16-2024 25-hydroxyvitamin D3 [Mass/Vol]32.7 ng/hLOjitrw79.0-80.0[facility] on above:Order Comment: Specimen Type: BLOOD SPECIMENOrdering Facility: [facility] Address:[address] [place], [place] [address]Result Comment: Classification of 25 [place] Vitamin D status: Deficiency/Insufficiency: < or = 30 ng/ml. Sufficiency/Optimal Levels: 31-80 ng/mL Toxicity: > 100 ng/mL. Test performed by chemiluminescent immunoassay.Performed By: #### 1988-06, 1648-06 ####[facility] LABCLIA [id number] [address] STATES OF AMERICACNOVon 78-25-2166UDTQHvoqxw Visit (ENDOLN) BANG SHARMA ([id number]) 1950 M Date Time Provider Department 08/16/24 [...] get records of recent DXA scan at [facility] - RENAL FUNCTION PANEL; Future - [...] blistering Date Reviewed: 08/16/2024 (more content not included)...NormalUK Healthcareoratory - Chemistry and Chemistry - challengeon 59-86-7290Igssmep [Mass/Vol]4.5 g/dL3.9-4.9Ohio[facility]heastern Medical CenterCalcium [Mass/Vol]11.2 mg/dLHigh8.5-10.2FKettering Health HamiltonChloride [Moles/Vol]107 mmol/G01-022NuwfnebtxOhiohealth Southeastern Medical CenterCO2 [Moles/Vol]23 mmol/L22-30 [facility] CenterCreatinine [Mass/Vol]1.55 mg/dLHigh0.73-1.22 [facility] CenterGlucose [Mass/Vol]89 mg/xV82-65VfgjqxtojOhiohealth Southeastern Medical CenterComment on above:The Indian Diabetes Association (ADA) provides guidance for cutoff values for fasting glucose andrandom glucose. The ADA defines fasting as no caloric intake for at least 8 hours. Fasting plasma gl ucose results between 100 to 125 mg/dL indicate [...] diabetes.Reference: Standardsof Medical Care in Diabetes 2016, Indian Diabetes Association. Diabetes Care. 2016.39(Suppl 1).Potassium [Moles/Vol]4.3 mmol/L 3.7-5.1FOhioHealthodium [Moles/Vol]143 mmol/D200-234 [facility] Medical CenterUrea nitrogen [Mass/Vol]21 mg/dL9-24[facility] Medical CenterNo Panel Informationon 235321-Khejklr Vitamin D Total32.7 ng/mL31.0-80.0Ohio[facility] Southeastern Medical CenterComment on above: Classification of 25 [place] Vitamin D status: Deficiency/Insufficiency: < or = 30 ng/ml.Sufficiency/Optimal Levels: 31-80 ng/mLToxicity: > 100 ng/mL. Test performed by chemiluminescent immunoassay.Estimated GFR (CKD-EPI)47 mL/min/1.73m???Low>=60Ohiohealth Southeastern Medical CenterComment on above: Estimated Glomerular Filtration Rate (eGFR) is calculated using the 2020 CKD-EPI creatinine equation. This equation utilizes serum creatinine, sex, and age as parameters. The creatinine assay has traceable calibration to isotope dilution- mass spectrometry. Refer to KDIGO guidelines for clinical interpretation. In patients with unstable renal function, e.g. those with acute kidney injury, the eGFRmay not accurately reflect actual GFR.Parathyroid Hormone (Intact)106 pg/mL Etqn76-68ZgmjzzjyjOhiohealth Southeastern Medical CenterPhosphorus Level2.2 mg/dLLow2.7-4.8 [facility] CenterPTH-Intact SerPl-ncon 08-16-2024 Parathyrin.intact [Mass/Vol]106 pg/aUEtza78-65DvgknuigpBarberton Citizens HospitalComment on above:Order Comment: Specimen Type: BLOOD SPECIMENOrdering Facility: [facility] Address:[address] [place] [address] Performed By: #### 2731-8, 23885-3 ####[facility] LABCLIA [id number] [place] [id number] [place] Renal function 2000 panelon 94-46-9850Awaopmt [Mass/Vol]4.5 g/dLNormal3.9-4.9 [facility] on above:Order Comment: Specimen Type: BLOOD SPECIMENOrdering Facility: [facility] Address:[address] [place], [place] [address]Performed By: #### 2731-8, 39803-1 ####[facility] LABCLIA [id number] [place] [address] [place] AMERICAAnion gap [Moles/Vol]13 mmol/LNormal8-15[facility] on above:Order Comment: Specimen Type: BLOOD SPECIMENOrdering Facility: [facility] Address:[address] [place], [place] [address]Performed By: #### 2731-8, 12235-9 ####[facility] LABIA [id number] [address] STATES OF AMERICACalcium [Mass/Vol]11.2 mg/dLHigh8.5-10.2COhioHealth Berger Hospital on above:Order Comment: Specimen Type: BLOOD SPECIMENOrdering Facility: [facility] Address:[address] [place] [address] Performed By: #### 2731-8, 20419-8 ####[facility] LABIA [id number] [place] [address] [place] Chloride [Moles/Vol]107 mmol/INjskik94-291CcdpefwjlMagruder Hospital on above:Order Comment: Specimen Type: BLOOD SPECIMENOrdering Facility: [facility] Address:[address] [place], [place] [address]Performed By: #### 2731-8, 29084-2 ####[facility] LABCLIA [id number] [place] [address] [place] OF AMERICACO2 [Moles/Vol]23 mmol/GZltati03-14MvfvgsqxqMagruder Hospital on above:Order Comment: Specimen Type: BLOOD SPECIMENOrdering Facility: [facility] Address:[address] [place], [place] [address]Performed By: #### 2731-8, 25894-9 ####[facility] LABCLIA [id number] [address] [address] [place] OF AMERICACreatinine [Mass/Vol]1.55 mg/dL High0.73-1.22[facility] on above:Order Comment: Specimen Type: BLOOD SPECIMENOrdering Facility: [facility] Address:[address] [place], [place] [address]Performed By: #### 2731-8, 38554-8 ####[facility] LABIA [id number] [place] [address] [place] AMERICACreatinine and Glomerular filtration rate.predicted panel (S/P/Bld)47 mL/min/1.73m???Low>=60[facility] on above:Order Comment: Specimen Type: BLOOD SPECIMENOrdering Facility: [facility] Address:[address] [place], [place] [address]Result Comment: Estimated Glomerular Filtration Rate (eGFR) is [...] accurately reflect actual GFR. Performed By: #### 2731-8, 15326-8 ####[facility] LABIA [id number] [place] [address] [place] Glucose [Mass/Vol]89 mg/dPNapkbd95-45LxfiiintuMagruder Hospital on above: Order Comment: Specimen Type: BLOOD SPECIMENOrdering Facility: [facility] Address:[address] [place], [place] [address]Result Comment: The Indian Diabetes Association (ADA) provides guidance for cutoff values for fast ing glucose and random glucose. The ADA defines [...] Standards of Medical Care in Diabetes 2016, Indian Diabetes Association. Diabetes Care. 2016.39(Suppl 1).Performed By: #### 2731-8, 88061-8 ####[facility] LABWH[facility] [id number] [place] [address] [place] AMERICAPhosphate [Mass/Vol]2.2 mg/dLLow 2.7-4.8COhioHealth Berger Hospital on above:Order Comment: Specimen Type: BLOOD SPECIMENOrdering Facility: [facility] Address:[address] [place], [place] [address]Performed By: #### 2731-8, 39365-5 ####[facility] [id number] [place] [address] [place] AMERICAPotassium [Moles/Vol]4.3 mmol/LNormal3.7-5.1COhioHealth Berger Hospital on above:Order Comment: Specimen Type: BLOOD SPECIMENOrdering Facility: [facility] Address:[address] [place], [place] [address]Performed By: #### 2731-8, 36888-5 ####[facility] [id number] [place] [address] UNITED [facility] OF AMERICASodium [Moles/Vol]143 mmol/ZXkjczi500-277YqulaxikwMagruder Hospital on above:Order Comment: Specimen Type: BLOOD SPECIMENOrdering Facility: [facility] Address:[address] [place], [place] [address]Performed By: #### 2731-8, 68445-7 ####[facility] LABCLIA [id number] [place] [address] [place] AMERICAUrea nitrogen [Mass/Vol]21 mg/dLNormal9-24[facility] Comment on above:Order Comment: Specimen Type: BLOOD SPECIMENOrdering Facility: [facility] Address:[address] [place] [address] Performed By: #### 2731-8, 60415-6 ####[facility] LABCLIA [id number] [place] [address] [place] Serum or plasma anion gap determinationon 57-16-7267Iacnc gap [Moles/Vol]Serum or plasma anion gap determination12-02Grant Hospitalerum or plasma calcitriol measurement (mass/volume)on ,25-dihydroxyvitamin D3 [Mass/Vol]Serum or plasma calcitriol measurement (mass/volume)19.9-79.3 [facility] CenterOffice Visiton 11-73-1777Mjxuyf-up visit [id number] Bang Sharma 1950 M Date Provider Department Center 07/08/2024 [id number], ADAM ARAM [facility] Family History Problem Relation Age of Onset Coronary artery disease Other Hypertension Other Family Status - Relation Status Age at Other Level of Service:[address] [place] OFFICE/OUTPATIENT ESTABLISHED LOW MDM 20 [facility] HospitalEstimated glomerular filtration rate (GFR) non- Americanon 75-40-6320GKA/1.73 sq M.predicted among non-blacks MDRD (S/P/Bld) [Vol rate/Area]Estimated glomerular filtration rate (GFR) non->=60 mL/min/1.73m 2FKettering Health HamiltonLaboratory - Chemistry and Chemistry - challengeon 31-56-3532Krihxur [Mass/Vol]10.5 mg/dLHigh 8.5-10.1FKettering Health HamiltonChloride [Moles/Vol]106 mmol/L98-107 [facility] CenterCO2 [Moles/Vol]29.4 mmol/L21.0-32.0[facility] Medical CenterCreatinine [Mass/Vol]1.13 mg/dL0.70-1.30[facility] Medical CenterGFR/1.73 sq M.predicted MDRD (S/P/Bld) [Vol rate/Area] mL/min/{1.73_m2}>=60 mL/min/1.73m 2FKettering Health HamiltonGlucose [Mass/Vol]105 mg/nD49-791CzgebjwjrOhiohealth Southeastern Medical CenterPotassium [Moles/Vol] 4.1 mmol/L3.5-5.1FOhioHealthodium [Moles/Vol]142 mmol/L 136-145Ohio[facility] Medical CenterUrea nitrogen [Mass/Vol]21.0 mg/dLHigh 7.0-18.0[facility] Medical CenterUrea nitrogen/Creatinine [Mass ratio] 18.6 mg/mgOhiohealth Southeastern Medical CenterNo Panel Informationon - Hydroxy Vitamin D Total36.6 ng/mLOhiohealth Southeastern Medical CenterComment on above:<20 ng/mL Vit D fawiepyeg69-<30 ng/mL Vit D yfwszdfmpopi66-440 ng/mL Vit D sufficient>100 ng/mL Potential ToxicityParathyroid Hormone (Intact)91 pg/mL Zxiwdfbh41-82JdmvhbbijOhiohealth Southeastern Medical CenterComment on above:Performed at: [facility] - Lab[address] [id number] Director: Shahab Rodney PhD, Phone: [phone] or plasma anion gap determinationon 63-18-1471Keavm gap [Moles/Vol]Serum or plasma anion gap determinationOhiohealth Southeastern Medical CenterOffice Visiton 16-15-7335Qtnxpm-up [id number] Bang Sharma 1950 M Date Provider Department Center 06/14/2024 LYDIA MARQUEZ [facility] Family History Problem Relation Age of Onset Coronary artery disease Other Hypertension Other Family Status - Relation Status Age at Other Level of Service:[address] [place] OFFICE/OUTPATIENT ESTABLISHED LOW MDM 20 [facility] HospitalALL THYROID STIM HORMONEon 55-53-2782VMZ Qn 0.963 m[IU]/LNOMS HealthcareCLINISYNCNOMS HealthcareAlbumin [Mass/volume] in Serum or Plasmaon 62-78-1032Bttbfnh [Mass/Vol]Albumin [Mass/volume] in Serum or Plasma2.9-4.4FKettering Health HamiltonEstimated glomerular filtration rate (GFR) non- Americanon 22-59-3350CTH/1.73 sq M.predicted among non- blacks MDRD (S/P/Bld) [Vol rate/Area]Estimated glomerular filtration rate (GFR) non->=60 mL/min/1.73m 2FKettering Health Hamilton Laboratory - Chemistry and Chemistry - challengeon 67-36-3890Gcfndxg [Mass/Vol] 10.0 mg/dL8.5-10.1FKettering Health HamiltonChloride [Moles/Vol]107 mmol/M29-715EaghrqgevOhiohealth Southeastern Medical CenterCO2 [Moles/Vol]29.3 mmol/L21.0-32.0 [facility] Medical CenterCobalamin (Vitamin B12) [Mass/Vol]748 pg/mL 232-1245Ohiohealth Southeastern Medical CenterComment on above:Performed at: [facility] [address] [id number] Director: Shahab Rodney PhD, Phone: [phone] [Mass/Vol]0.90 mg/dL0.70-1.30 [facility] CenterGFR/1.73 sq M.predicted MDRD (S/P/Bld) [Vol rate/Area]mL/min/{1.73_m2}>=60 mL/min/1.73m 2FKettering Health Hamilton Glucose [Mass/Vol]99 mg/pP67-504TmppnwwlaOhiohealth Southeastern Medical CenterPotassium [Moles/Vol]3.7 mmol/L3.5-5.1FOhioHealthodium [Moles/Vol] 141 mmol/M667-364QrvgnndwsOhiohealth Southeastern Medical CenterTSH Qn0.963 m[IU]/L0.358-3.740 [facility] Medical CenterUrea nitrogen [Mass/Vol]12.0 mg/dL7.0-18.0 [facility] Medical CenterUrea nitrogen/Creatinine [Mass ratio]13.3 mg/mg [facility] CenterBilirubin Ql (U)NegativeNEGATIVEOhiohealth Southeastern Medical CenterGlucose (U) [Mass/Vol]NegativeNEGATIVEOhiohealth Southeastern Medical CenterKetones Ql (U)NegativeNEGATIVEOhiohealth Southeastern Medical CenterpH (U)6.5 [pH]5.0-9.0Grant Hospitalpecific gravity (U) [Rel density]1.0201.005-1.025Ohio[facility]heastern Medical CenterUrobilinogen Qn (U)0.2 {Andre'U}/dL0.2-1.0[facility] CenterLaboratory - Specimen informationon 72-33-7640Qdxmtjfknm (U)CLEARCLEARFKettering Health HamiltonColor (U)LT. YELLOWYELLOWOhiohealth Southeastern Medical CenterLaboratory - Urinalysison 21-46-3715Lnwkadpxr esterase Test strip Ql (U)NegativeNEGATIVE [facility] CenterMucus Ql (Urine sed)NONE SEENNONE [facility] HospitalNitrite Ql (U)NegativeNEGATIVEOhiohealth Southeastern Medical CenterProtein Ql (U)NegativeNEG/TRACEOhiohealth Southeastern Medical CenterNo Panel Informationon 14-64-882963790026-Ktznmul Vitamin D Total18.7 ng/mLOhiohealth Southeastern Medical CenterComment on above:<20 ng/mL Vit D msuhpvdso36-<30 ng/mL Vit D hbgcpydcyups36-435 ng/mL Vit D sufficient>100 ng/mL Potential ToxicityFolate 23.60 ng/mL8.60-58.90[facility] Medical CenterParathyroid Hormone (Intact)88 pg/aUAllnnlcf03-41KyrajakhaOhiohealth Southeastern Medical CenterComment on above: Performed at: [facility] CenterKhpquu[address] [place] [id number] Director: Shahab Rodney PhD, Phone: [phone] Electrophoresis M-SpikeNot Observed g/dLNot ObservedOhiohealth Southeastern Medical CenterProtein Electrophoresis NoteComment.[facility] Medical CenterComment on above: Protein electrophoresis scan will follow via computer,mail, or billet sawyer delivery.Performed at: [facility]CareKyle [facility] [id number] [place], [place] [id number] Director: Shahab Rodney PhD, Phone: [phone] Bacteria NONE SEEN #/HPFNONE SEENOhiohealth Southeastern Medical CenterUrine Occult Blood NegativeNEGATIVEOhiohealth Southeastern Medical CenterUrine RBCNONE SEEN #/HPF0-2 [facility] Medical CenterUrine Squamous Epithelial CellsRARE #/LPF NONE/RAREOhiohealth Southeastern Medical CenterUrine WBCNONE SEEN #/HPFNONE SEEN [facility] CenterProtein [Mass/volume] in Serum or Plasmaon 28-88-1003Nawavgp [Mass/Vol]Protein [Mass/volume] in Serum or Plasma6.0-8.5 Grant Hospitalerum globulin measurement (mass/volume)on 88-08-5973Eumeumeg (S) [Mass/Vol]Serum globulin measurement (mass/volume)2.2-3.9 Grant Hospitalerum or plasma albumin/globulin mass ratioon 83-02-1928Rxmnubh/Globulin [Mass ratio]Serum or plasma albumin/globulin mass ratio0.7-1.7FOhioHealtherum or plasma alpha 1 globulin measurement by electrophoresis (mass/volume)on 27-99-8292Unegt 1 globulin Elph [Mass/Vol]Serum or plasma alpha 1 globulin measurement by electrophoresis (mass/volume)0.0-0.4FOhioHealtherum or plasma alpha 2 globulin measurement by electrophoresis (mass/volume)on 44-85-3137Vibcw 2 globulin Elph [Mass/Vol]Serum or plasma alpha 2 globulin measurement by electrophoresis (mass/volume)0.4-1.0Grant Hospitalerum or plasma anion gap determinationon 16-92-8122Lyeez gap [Moles/Vol]Serum or plasma anion gap determinationGrant Hospitalerum or plasma beta globulin measurement by electrophoresis (mass/volume)on 71-36-8941Ihjr globulin Elph [Mass/Vol]Serum or plasma beta globulin measurement by electrophoresis (mass/volume)0.7-1.3FOhioHealtherum or plasma gamma globulin measurement by electrophoresis (mass/volume)on 34-86-7728Mibkr globulin Elph [Mass/Vol]Serum or plasma gamma globulin measurement by electrophoresis (mass/volume)0.4-1.8[facility] CenterOffice Visiton 03-15-2024 Follow-up [id number] Bang Sharma 1950 M Date Provider Department Center 03/15/2024 DREA STOVALL [facility] Family History Problem Relation Age of Onset Coronary artery disease Other Hypertension Other Family Status - Relation Status Age at Other Level of Service:57[address] [place] OFFICE/OUTPATIENT ESTABLISHED LOW MDM 20 MIN Reason for Visit and Comments: Follow-up [158930] - 3 month follow up Atrial Fibrillation [80][facility] HospitalBasophils Auto (Bld) [#/Vol]on 44-16-8339Chaxwjwxu (Bld) [#/Vol]Automated basophil count0.0-0.1 [facility] CenterBasophils/100 WBC Auto (Bld)on 03-10-2024 Basophils/100 WBC (Bld)Automated basophil %0.2-2.0[facility] CenterCholesterol in LDL Calc [Mass/Vol]on 24-27-3751Cikxrmezpcg in LDL [Mass/Vol]Cholesterol in LDL [Mass/volume] in Serum or Plasma by calculation [facility] CenterComment on above:<100 mg/dl UWKEIBI690-926 mg/dl NEAR OR ABOVE JFCLHPN598-145 mg/dl BORDERLINE WEOQ549-545 mg/dl HIGH>190 mg/dl VERY HIGHCholesterol in VLDL Calc [Mass/Vol]on 89-08-3522Mxyctcfowbg in VLDL [Mass/Vol]Cholesterol in VLDL [Mass/volume] in Serum or Plasma by calculationOhiohealth Southeastern Medical CenterEosinophils/100 WBC Auto (Bld)on 59-93-2268Crasmbydypx/100 WBC (Bld)Automated eosinophil %0.9-7.0[facility] Medical CenterErythrocyte distribution width Auto (RBC) [Ratio]on 48-81-6707Waxorxbehgc distribution width (RBC) [Ratio]Erythrocyte distribution width [Ratio] by Automated count11.0-15.0[facility] Estimated glomerular filtration rate (GFR) non- Americanon 03-10-2024 GFR/1.73 sq M.predicted among non-blacks MDRD (S/P/Bld) [Vol rate/Area]Estimated glomerular filtration rate (GFR) non->=60 mL/min/1.73m 2 [facility] Medical CenterGlobulin Calc (S) [Mass/Vol]on 03-10-2024 Globulin (S) [Mass/Vol]Serum globulin measurement by calculation (mass/volume) [facility] CenterHematocrit Auto (Bld) [Volume fraction]on 79-41-4048Avwaxgaiso (Bld) [Volume fraction]Hematocrit [Volume Fraction] of Blood by Automated count42.0-54.0[facility] Medical CenterHemoglobin [Mass/volume] in Bloodon 13-22-2690Cvytqxqvji (Bld) [Mass/Vol]Hemoglobin [Mass/volume] in Blood14.0-18.0[facility] Medical CenterLaboratory - Chemistry and Chemistry - challengeon 71-20-7857Tfgqfuh [Mass/Vol]3.5 g/dL 3.4-5.0[facility] CenterALP [Catalytic activity/Vol]58 U/L46-116 [facility] CenterALT [Catalytic activity/Vol]32 U/L16-63 [facility] CenterAST [Catalytic activity/Vol]16 U/L15-37 [facility] Medical CenterBilirubin [Mass/Vol]0.8 mg/dL0.2-1.0[facility] Medical CenterCalcium [Mass/Vol]10.4 mg/dLHigh8.5-10.1FKettering Health HamiltonChloride [Moles/Vol]107 mmol/J05-244XiyxiczpzOhiohealth Southeastern Medical CenterCholesterol [Mass/Vol]199 mg/dL<=200[facility] Medical CenterCholesterol in HDL [Mass/Vol]53 mg/bV55-46JozvvmevbOhiohealth Southeastern Medical CenterComment on above:> or =60 mg/dl - LOW CARDIOVASCULAR RISK<40 mg/dl - HIGH CARDIOVASCULAR RISKCO2 [Moles/Vol]28.7 mmol/L21.0-32.0[facility] CenterCreatinine [Mass/Vol]0.85 mg/dL0.70-1.30[facility] GFR/1.73 sq M.predicted MDRD (S/P/Bld) [Vol rate/Area]mL/min/{1.73_m2}>=60 mL/min/1.73m 2FKettering Health HamiltonGlucose [Mass/Vol]100 mg/cG79-081 [facility] CenterPotassium [Moles/Vol]4.0 mmol/L3.5-5.1FKettering Health HamiltonProtein [Mass/Vol]6.8 g/dL6.4-8.2FOhioHealthodium [Moles/Vol]143 mmol/C958-540MnuarsgfoOhiohealth Southeastern Medical CenterTriglyceride [Mass/Vol]100 mg/dL<=150Ohio[facility] Medical CenterTSH Qn0.915 m[IU]/L0.358-3.740[facility] Medical CenterUrea nitrogen [Mass/Vol]15.0 mg/dL7.0-18.0[facility] Medical CenterUrea nitrogen/Creatinine [Mass ratio]17.6 mg/mgOhiohealth Southeastern Medical Center Laboratory - Hematology and Cell countson 22-45-4102Zgkjvqtw granulocytes/100 WBC (Bld)0.2 %0.0-0.5FKettering Health HamiltonLeukocytes [#/volume] corrected for nucleated erythrocytes in Blood by Automated counon 31-49-4481PUQ corrected for nucl RBC Auto (Bld) [#/Vol]Leukocytes [#/volume] corrected for nucleated erythrocytes in Blood by Automated coun4.0-11.0[facility] Medical CenterLymphocytes Auto (Bld) [#/Vol]on 30-03-8121Qrxgxbllbzx (Bld) [#/Vol]Lymphocytes [#/volume] in Blood by Automated count1.2-3.8[facility] Medical CenterLymphocytes/100 WBC Auto (Bld)on 03-10-2024 Lymphocytes/100 WBC (Bld)Lymphocytes/100 leukocytes in Blood by Automated count 20.5-60.0[facility] Medical CenterMCH Auto (RBC) [Entitic mass]on 34-63-9037WUF (RBC) [Entitic mass]MCH [Entitic mass] by Automated count25.9-34.0 [facility] Medical CenterMCHC Auto (RBC) [Mass/Vol]on 66-56-7294KBVE (RBC) [Mass/Vol]MCHC [Mass/volume] by Automated count29.9-35.2FUniversity Hospitals TriPoint Medical CenterV Auto (RBC) [Entitic vol]on 00-70-1070NDC (RBC) [Entitic vol] MCV [Entitic volume] by Automated czllkGnzx38.0-94.0[facility] CenterMonocytes Auto (Bld) [#/Vol]on 06-70-6021Xrypkwbxg (Bld) [#/Vol]Automated blood monocyte count0.3-0.8[facility] CenterMonocytes/100 WBC Auto (Bld)on 08-78-2374Jvappmyto/100 WBC (Bld)Automated monocyte %1.7-12.0 [facility] CenterNeutrophils Auto (Bld) [#/Vol]on 03-10-2024 Neutrophils (Bld) [#/Vol]Neutrophils [#/volume] in Blood by Automated count 1.4-6.5FKettering Health HamiltonNeutrophils/100 WBC Auto (Bld)on 87-52-7205Cyhjdjfkgxo/100 WBC (Bld)Automated neutrophil %43.0-75.0[facility] CenterNo Panel Informationon 84-51-5109Ctpjlwmgdlk # (Auto)0.2 10 3/uL0.0-0.7FKettering Health HamiltonImmature Granulocyte # (Auto)0.01 10 3/uL0.00-0.03[facility] CenterProstate Specific Antigen Screen1.32 ng/mL<=4.00[facility] CenterPlatelet mean volume Auto (Bld) [Entitic vol]on 24-33-3985Huiggfig mean volume (Bld) [Entitic vol] Platelet mean volume [Entitic volume] in Blood by Automated countLow9.5-13.5 [facility] CenterPlatelets Auto (Bld) [#/Vol]on 03-10-2024 Platelets (Bld) [#/Vol]Platelets [#/volume] in Blood by Automated popny724-413 [facility] CenterRBC Auto (Bld) [#/Vol]on 18-33-1920SXD (Bld) [#/Vol]Erythrocytes [#/volume] in Blood by Automated countLow4.70-6.10Grant Hospitalerum or plasma albumin/globulin mass ratioon 03-10-2024 Albumin/Globulin [Mass ratio]Serum or plasma albumin/globulin mass ratio Grant Hospitalerum or plasma anion gap determinationon 59-51-5343Wcpgm gap [Moles/Vol]Serum or plasma anion gap determinationGrant Hospitalerum or plasma total cholesterol/high density lipoprotein (HDL) cholesterol mass ranjit 76-40-7406Eszbaxtgxms.total/Cholesterol in HDL [Mass ratio]Serum or plasma total cholesterol/high density lipoprotein (HDL) cholesterol mass ratOhiohealth Southeastern Medical CenterComment on above:3.3 - 4.4 LOW RISK4.4 - 7.1 AVERAGE RISK7.1 - 11.0 MODERATE RISK>11.0 HIGH RISKEMG 2 Extremitieson 42-63-9463ZXR/NCS BLE Severe sensory-motor polyneuropathy.[facility] CareNVC 9-10 Nerveson 08-90-7517MSV/NCS BLE Severe sensory-motor polyneuropathy.[facility] CareBasophils Auto (Bld) [#/Vol]on 66-11-3666Lxhjfrccr (Bld) [#/Vol]0.0 10 3/uL0.0-0.1FKettering Health HamiltonBasophils/100 WBC Auto (Bld)on 60-53-9236Lqlzgdmdq/100 WBC (Bld)0.5 %0.2-2.0[facility] CenterEosinophils/100 WBC Auto (Bld)on 87-28-9260Spbzdcdkvho/100 WBC (Bld)1.1 %0.9-7.0[facility] CenterErythrocyte distribution width Auto (RBC) [Ratio]on 12-01-2023 Erythrocyte distribution width (RBC) [Ratio]12.8 %11.0-15.0[facility] CenterHematocrit Auto (Bld) [Volume fraction]on 72-99-0191Dvqzaxhvxk (Bld) [Volume fraction]40.8 %Low42.0-54.0[facility] Hemoglobin [Mass/volume] in Bloodon 26-90-1307Jyqoyevkxt (Bld) [Mass/Vol]13.6 g/dLLow14.0-18.0[facility] CenterLaboratory - Hematology and Cell countson 29-09-7212Jyomvtwr granulocytes/100 WBC (Bld)0.3 %0.0-0.5FK[facility]tering Health HamiltonLeukocytes [#/volume] corrected for nucleated erythrocytes in Blood by Automated counon 57-84-2010VYN corrected for nucl RBC Auto (Bld) [#/Vol]6.4 10 3/uL4.0-11.0[facility] Lymphocytes Auto (Bld) [#/Vol]on 69-01-5268Sbzwlckxzox (Bld) [#/Vol]1.3 10 3/uL 1.2-3.8[facility] CenterLymphocytes/100 WBC Auto (Bld)on 51-24-5215Piunujiogsd/100 WBC (Bld)20.7 %20.5-60.0[facility] LimaH Auto (RBC) [Entitic mass]on 10-43-8409WDT (RBC) [Entitic mass]31.7 pg 25.9-34.0[facility] CenterMCHC Auto (RBC) [Mass/Vol]on 93-78-8403ZOWJ (RBC) [Mass/Vol]33.3 g/dL29.9-35.2FKettering Health HamiltonMCV Auto (RBC) [Entitic vol]on 49-23-5781JDY (RBC) [Entitic vol]95.1 fL High80.0-94.0[facility] CenterMonocytes Auto (Bld) [#/Vol]on 46-83-5934Wcywviehp (Bld) [#/Vol]0.8 10 3/uL0.3-0.8[facility] CenterMonocytes/100 WBC Auto (Bld)on 95-04-5239Tflheoitp/100 WBC (Bld)11.8 % 1.7-12.0[facility] CenterNeutrophils Auto (Bld) [#/Vol]on 57-84-9875Xoteieqomkv (Bld) [#/Vol]4.2 10 3/uL1.4-6.5FKettering Health HamiltonNeutrophils/100 WBC Auto (Bld)on 29-01-9025Uazjsduwmcj/100 WBC (Bld)65.6 % 43.0-75.0[facility] CenterNo Panel Informationon 12-01-2023 Eosinophils # (Auto)0.1 10 3/uL0.0-0.7FK[facility]tering Health HamiltonImmature Granulocyte # (Auto)0.02 10 3/uL0.00-0.03[facility] Platelet mean volume Auto (Bld) [Entitic vol]on 59-98-6160Lqhuylzk mean volume (Bld) [Entitic vol]8.9 fLLow9.5-13.5FKettering Health HamiltonPlatelets Auto (Bld) [#/Vol]on 32-95-4857Kswzsqjyo (Bld) [#/Vol]265 10 3/gD774-479 [facility] CenterRBC Auto (Bld) [#/Vol]on 13-51-3978GHN (Bld) [#/Vol]4.29 10 6/uLLow4.70-6.10[facility] CenterCNOVon 55-60-9365SWGTHocqum Visit (ORFWHP) BANG SHARMA ([id number]) 1950 M Date Time Provider Department 01/13/23 2:30 PM HARESH PINEDA ORFWHP During your visit today, we recorded the following information about you: Haresh Pineda MD 01/13/2023 4:19 PM Signed Orthopaedic Surgery Follow-Up Clinic Note Surgery/Date: 08/27/2017 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 (CPT 22741 - 22) Placement of Prophylactic Carbon Fiber Tibial Nail, Right Tibia (CPT 48097) High Speed [place] and Adjuvant Treatment with 10% H202 (CPT 33559) Neruolysis and Dissection of Deep Peroneal Nerve (CPT 82302) Right Iliac Crest Marrow Aspiration/Alcove ( CPT 51551) Diagnosis: Right Tibial Diaphysis Cartilage Lesion with [...] the date of the service which included mrrd-ps-name patient care, completing clinical documentation, obtaining and/or [...] information added by medical student, resident, nurse, PRESS SETTER/PA-C that I have placed my signature directly below I have verified and either instructed them to document in a scribe function or document appropriately in the chart during the patient visit. Haresh Beavers (more content not included)...NormalCollis P. Huntington HospitalFLECAINEon 09-96-7231JRPUDDPTUB7.39 ug/mlNormal0.20 - 1.00[facility] Memorial HospitalComment on above:Result Comment: Flecainide reported as flecainide acetate. The reference range also is defined as flecaininde acetate. This test was developed and its performance characteristics determined by [facility]. It has not been cleared or approved by the Food and Drug Administration.Performed By: #### TSH, BMP, LIPID, ALT #### [facility] [address] [place] [address] Dr. Fidel Christy AUTO DIFFon 46-05-0275NMZC #0.0 103/ulNormal0.0-0.1The [facility]own HospitalComment on above:Performed By: #### CBC #### [facility] [address] [place] [address] Dr. Fidel PaigeBasophils/100 WBC (Bld)0.6 %Normal0.2-2.0[facility] Comment on above:Performed By: #### CBC #### [facility] [address] [place] [address] Dr. Fidel Vogel #0.1 103/ulNormal0.0-0.7The [facility] HospitalComment on above: Performed By: #### CBC #### [facility] [address] [place] [address] Dr. Fidel Kingsleyosinophils/100 WBC (Bld)2.8 %Normal0.9-7.0[facility] Comment on above:Performed By: #### CBC #### [facility] [address] [place] [address] Dr. Fidel Kingsleyrythrocyte distribution width (RBC) [Ratio]12.8 %Svrnai95.0-15.0 The [facility]own HospitalComment on above:Performed By: #### CBC #### [facility] [address] [place] [address] Dr. Fidel PaigeHematocrit (Bld) [Volume fraction]41.9 %Critically low42.0-54.0 [facility] HospitalComment on above:Performed By: #### CBC #### [facility] [address] [place] [address] Dr. Fidel PaigeHemoglobin (Bld) [Mass/Vol]14.1 g/cHYxtzuq78.0-18.0The [facility] Limament on above:Performed By: #### CBC #### [facility] [address] [place] [address] Dr. Fidel Bello #0.01 10e3/ulNormal0.00-0.03[facility] on above:Performed By: #### CBC #### [facility] [address] [place] [address] Dr. Fidel Bello %0.2 %Normal0.0-0.5The [facility] HospitalComment on above: Performed By: #### CBC #### [facility] [address] [place] [address] Dr. Fidel Leong #1.4 103/ulNormal1.2-3.8The [facility] HospitalComment on above:Performed By: #### CBC #### [facility] [address] [place] [address] Dr. Fidel Willishocytes/100 WBC (Bld)29.2 %Wlmnnp14.5-60.0[facility] on above:Performed By: #### CBC #### [facility] [address] [place] [address] Dr. Fidel WilliamUAL DIFF REQNONormalThe [facility] HospitalComment on above: Performed By: #### CBC #### [facility] [address] [place] [address] Dr. Fidel Wills (RBC) [Entitic mass]31.3 puGqehyt27.9-34.0The [facility] HospitalComment on above:Performed By: #### CBC #### [facility] [address] [place] [address] Dr. Fidel Wills (RBC) [Mass/Vol]33.7 g/aHXtdgus27.9-35.2The [facility] HospitalComment on above:Performed By: #### CBC #### [facility] [address] [place] [address] Dr. Fidel Wills (RBC) [Entitic vol]92.9 wBGeweln60.0-94.0The [facility] HospitalComment on above:Performed By: #### CBC #### [facility] [address] [place] [address] Dr. Fidel Miller #0.7 103/ulNormal0.3-0.8The [facility] HospitalComment on above:Performed By: #### CBC #### [facility] [address] [place] [address] Dr. Fidel Millardocytes/100 WBC (Bld)13.4 %Critically high1.7-12.0The [facility] HospitalComment on above:Performed By: #### CBC #### [facility] [address] [place] [address] Dr. Fidel Hunt #2.7 103/ulNormal1.4-6.5The [facility] HospitalComment on above:Performed By: #### CBC #### [facility] [address] [place] [address] Dr. Fidel Marquezutrophils/100 WBC (Bld)53.8 %Ajffgp82.0-75.0The [facility] HospitalComment on above:Performed By: #### CBC #### [facility] [address] [place] [address] Dr. Fidel Ayoub mean volume (Bld) [Entitic vol]8.7 fLCritically low 9.5-13.5The [facility] HospitalComment on above:Performed By: #### CBC #### [facility] [address] [place] [address] Dr. Fidel HallT278 103/txIqnkye391-859Qkj [facility] HospitalComment on above: Performed By: #### CBC #### [facility] [address] [place] [address] Dr. Fidel PaigeRBC4.51 106/ulCritically low4.70-6.10The [facility] HospitalComment on above:Performed By: #### CBC #### [facility] [address] [place] [address] Dr. Fidel PaigeWBC4.9 103/ulNormal4.0-11.0The [facility] HospitalComment on above: Performed By: #### CBC #### [facility] [address] [address] [address] Fidel PaigeMAGNESIUMon 10-61-4233Wdkzxljkz [Mass/Vol]2.0 mg/dLNormal1.8-2.4 The [facility] HospitalComment on above:Performed By: #### TSH, MG, BMP #### [facility] [address] [place] [address] Dr. Fidel PaigePROF CHEM 8 (BAS METB)on 90-22-9849Espzc gap [Moles/Vol]8.2 mmol/LNormalThe [facility] HospitalComment on above:Performed By: #### TSH, MG, BMP #### [facility] [address] [place] [address] Dr. Fidel PaigeCalcium [Mass/Vol]10.2 mg/dLCritically high8.5-10.1[facility] Limament on above:Performed By: #### TSH, MG, BMP #### [facility] [address] [place] [address] Dr. Fidel PaigeChloride [Moles/Vol]105 mmol/DZxqgzh97-027Zzq [facility] Comment on above:Performed By: #### TSH, MG, BMP #### [facility] [address] [place] [address] Dr. Fidel PaigeCO2 [Moles/Vol]29.6 mmol/WMwduzk64.0-32.0The [facility] Comment on above:Performed By: #### TSH, MG, BMP #### [facility] [address] [place] [address] Dr. Fidel PaigeCreatinine [Mass/Vol]0.81 mg/dLNormal0.70-1.30The [facility] HospitalComment on above:Performed By: #### TSH, MG, BMP #### [facility] [address] [place] [address] Dr. Parra ChangEGFR-AF TURKMEN>60Normal>=60The [facility] HospitalComment on above:Performed By: #### TSH, MG, BMP #### [facility] [address] [place] [address] Dr. Fidel KingsleyGFR-NON AF TURKMEN>60Normal>=60The [facility] HospitalComment on above:Performed By: #### TSH, MG, BMP #### [facility] [address] [place] [address] Dr. Fidel PaigeGlucose [Mass/Vol]100 mg/vYYcncxc51-140Itg [facility] Comment on above:Performed By: #### TSH, MG, BMP #### [facility] [address] [place] [address] Dr. Fidel PaigePotassium [Moles/Vol]3.8 mmol/LNormal3.5-5.1[facility] Comment on above:Performed By: #### TSH, MG, BMP #### [facility] [address] [place] [address] Dr. Fidel PaigeSodium [Moles/Vol]139 mmol/ZInjifu188-501Hoy [facility] Comment on above:Performed By: #### TSH, MG, BMP #### [facility] [address] [place] [address] Dr. Fidel PaigeUrea nitrogen [Mass/Vol]12.0 mg/dLNormal7.0-18.0The [facility] HospitalComment on above:Performed By: #### TSH, MG, BMP #### [facility] [address] [place] [address] Dr. Fidel Tavares nitrogen/Creatinine [Mass ratio]14.8 mg/mgNormalThe [facility] HospitalComment on above:Performed By: #### TSH, MG, BMP #### [facility] [address] [place] [address] Dr. Fidel Gonsalez 28-59-2384JSF7.891 uIU/mLNormal0.358-3.740The [facility] HospitalComment on above:Performed By: #### TSH, MG, BMP #### [facility] [address] [place] [address] Dr. Fidel Christy AUTO DIFFon 11-50-7804PISR #0.0 103/ulNormal0.0-0.1The [facility] HospitalComment on above:Performed By: #### TSH, BMP, LIPID, ALT #### [facility] [address] [place] [address] Dr. Fidel PaigeBasophils/100 WBC (Bld)0.3 %Normal0.2-2.0The [facility] Comment on above:Performed By: #### TSH, BMP, LIPID, ALT #### [facility] [address] [place] [address] Dr. Fidel Vogel #0.1 103/ulNormal0.0-0.7The [facility] HospitalComment on above: Performed By: #### TSH, BMP, LIPID, ALT #### [facility] [address] [place] [address] Dr. Fidel Kingsleyosinophils/100 WBC (Bld)2.1 %Normal0.9-7.0The [facility] Comment on above:Performed By: #### TSH, BMP, LIPID, ALT #### [facility] [address] [place] [address] Dr. Fidel Kingsleyrythrocyte distribution width (RBC) [Ratio]13.1 %Pszbet10.0-15.0 The [facility] HospitalComment on above:Performed By: #### TSH, BMP, LIPID, ALT #### [facility] [address] [place] [address] Dr. Fidel PaigeHematocrit (Bld) [Volume fraction]45.2 %Yhdhtr68.0-54.0The [facility] HospitalComment on above:Performed By: #### TSH, BMP, LIPID, ALT #### [facility] [address] [place] [address] Dr. Fidel PaigeHemoglobin (Bld) [Mass/Vol]14.8 g/tNRzesfa44.0-18.0The [facility] HospitalComment on above:Performed By: #### TSH, BMP, LIPID, ALT #### [facility] [address] [place] [address] Dr. Fidel Bello #0.02 10e3/ulNormal0.00-0.03The [facility]ament on above:Performed By: #### TSH, BMP, LIPID, ALT #### [facility] [address] [address] [address] Fidel Bello %0.3 %Normal0.0-0.5The [facility] on above: Performed By: #### TSH, BMP, LIPID, ALT #### [facility] [address] [address] [address] Fidel Leong #1.4 103/ulNormal1.2-3.8The [facility] HospitalComment on above:Performed By: #### TSH, BMP, LIPID, ALT #### [facility] [address] [place] [address] Dr. Fdiel Willishocytes/100 WBC (Bld)23.2 %Zsnnkl58.5-60.0The [facility] on above:Performed By: #### TSH, BMP, LIPID, ALT #### [facility] [address] [place] [address] Dr. Fidel WilliamUAL DIFF REQNONormalThe [facility] HospitalCommymichigan medical center sault on above: Performed By: #### TSH, BMP, LIPID, ALT #### [facility] [address] [place] [address] Dr. Fidel Wills (RBC) [Entitic mass]31.6 urOqtfho10.9-34.0The [facility] on above:Performed By: #### TSH, BMP, LIPID, ALT #### [facility] [address] [place] [address] Dr. Fidel Wills (RBC) [Mass/Vol]32.7 g/uSNjipki85.9-35.2The [facility] on above:Performed By: #### TSH, BMP, LIPID, ALT #### [facility] [address] [place] [address] Dr. Fidel Wills (RBC) [Entitic vol]96.6 fLCritically high80.0-94.0The [facility] HospitalComment on above:Performed By: #### TSH, BMP, LIPID, ALT #### [facility] [address] [address] [address] Fidel Miller #0.7 103/ulNormal0.3-0.8The [facility] HospitalComment on above:Performed By: #### TSH, BMP, LIPID, ALT #### [facility] [address] [address] [address] Fidel Millardocytes/100 WBC (Bld)11.7 %Normal1.7-12.0The [facility] Comment on above:Performed By: #### TSH, BMP, LIPID, ALT #### [facility] [address] [place] [address] Dr. Fidel Hunt #3.6 103/ulNormal1.4-6.5The [facility] HospitalComment on above:Performed By: #### TSH, BMP, LIPID, ALT #### [facility] [address] [place] [address] Dr. Fidel Marquezutrophils/100 WBC (Bld)62.4 %Vrjouk47.0-75.0The [facility] HospitalComment on above:Performed By: #### TSH, BMP, LIPID, ALT #### [facility] [address] [place] [address] Dr. Fidel Ayoub mean volume (Bld) [Entitic vol]8.8 fLCritically low 9.5-13.5The [facility] HospitalComment on above:Performed By: #### TSH, BMP, LIPID, ALT #### [facility] [address] [place] [address] Dr. Fidel PaigePLT283 103/ibCktkri637-045Far [facility] HospitalComment on above: Performed By: #### TSH, BMP, LIPID, ALT #### [facility] [address] [place] [address] Dr. Fidel PaigeRBC4.68 106/ulCritically low4.70-6.10The [facility] HospitalComment on above:Performed By: #### TSH, BMP, LIPID, ALT #### [facility] [address] [address] [address] Fidel PaigeWBC5.8 103/ulNormal4.0-11.0[facility]ament on above: Performed By: #### TSH, BMP, LIPID, ALT #### [facility] [address] [address] [address] Fidel ButtsID PROFILEon 26-64-6144NXHI-HDL RATIO NORMSEE BELOWSelect Medical Specialty Hospital - CincinnatiComment on above:Result Comment: 3.3 - 4.4 LOW RISK 4.4 - 7.1 AVERAGE RISK 7.1 - 11.0 MODERATE RISK >11.0 HIGH RISKPerformed By: #### TSH, BMP, LIPID, ALT #### [facility] [address] [address] [address] Fidel Mortonesterol [Mass/Vol]191 mg/dLNormal<=200The [facility] Comment on above:Performed By: #### TSH, BMP, LIPID, ALT #### [facility] [address] [address] [address] Fidel Mortonesterol in HDL [Mass/Vol]42 mg/wGRmpbbb05-34QsoPike Community Hospital on above:Performed By: #### TSH, BMP, LIPID, ALT #### [facility] [address] [address] [address] Fidel PaigeCholesterol in LDL [Mass/Vol]118.0 mg/dLSelect Medical Specialty Hospital - CincinnatiCommymichigan medical center sault on above:Performed By: #### TSH, BMP, LIPID, ALT #### [facility] [address] [address] [address] Fidel Cisneros.total/Cholesterol in HDL [Mass ratio]4.5 {ratio} NormalPike Community Hospital on above:Performed By: #### TSH, BMP, LIPID, ALT #### [facility] [address] [place] [address] Dr. Fidel Ortega NORMAL> or = 60 mg/dl - LOW CARDIOVASCULAR RISK <40 mg/dl - HIGH CARDIOVASCULAR RISKSelect Medical Specialty Hospital - CincinnatiCommymichigan medical center sault on above:Performed By: #### TSH, BMP, LIPID, ALT #### [facility] [address] [address] [address] Fidel James CALC NORMALSEE BELOWSelect Medical Specialty Hospital - CincinnatiComment on above:Result Comment: <100 mg/dl OPTIMAL 100 - 129 mg/dl NEAR OR ABOVE OPTIMAL 130 - 159 mg/dl BORDERLINE HIGH 160 - 189 mg/dl HIGH >190 mg/dl VERY HIGH Performed By: #### TSH, BMP, LIPID, ALT #### [facility] [address] [address] [address] Fidel PaigeTriglyceride [Mass/Vol]155 mg/dLCritically high<=150The [facility] HospitalCommymichigan medical center sault on above:Performed By: #### TSH, BMP, LIPID, ALT #### [facility] [address] [place] [address] Dr. Fidel PaigeVLDL CALC31.0 mg/dLNoCleveland Clinic FoundationComment on above: Performed By: #### TSH, BMP, LIPID, ALT #### [facility] [address] [place] [address] Dr. Fidel PaigePROF CHEM 8 (BAS METB)on 20-32-1876Ttqxh gap [Moles/Vol]11.0 mmol/LNormalOhioHealth Dublin Methodist Hospitalment on above:Performed By: #### TSH, BMP, LIPID, ALT #### [facility] [address] [address] [address] Fidel PaigeCalcium [Mass/Vol]10.1 mg/dLNoal8.5-10.1The [facility] Comment on above:Performed By: #### TSH, BMP, LIPID, ALT #### [facility] [address] [address] [address] Fidel PaigeChloride [Moles/Vol]105 mmol/ZVlmhym66-913Xct [facility] Comment on above:Performed By: #### TSH, BMP, LIPID, ALT #### [facility] [address] [address] [address] Fidel PaigeCO2 [Moles/Vol]29.0 mmol/EAgovbd53.0-32.0The [facility] Comment on above:Performed By: #### TSH, BMP, LIPID, ALT #### [facility] [address] [address] [address] Fidel PaigeCreatinine [Mass/Vol]0.85 mg/dLNormal0.70-1.30The [facility] HospitalComment on above:Performed By: #### TSH, BMP, LIPID, ALT #### [facility] [address] [address] [address] Fidel KingsleyGFR-AF TURKMEN>60Normal>=60The [facility] HospitalComment on above:Performed By: #### TSH, BMP, LIPID, ALT #### [facility] [address] [place] [address] Dr. Fidel KingsleyGFR-NON AF TURKMEN>60Normal>=60The [facility] HospitalComment on above:Performed By: #### TSH, BMP, LIPID, ALT #### [facility] [address] [place] [address] Dr. Fidel PaigeGlucose [Mass/Vol]101 mg/eAKodlbw05-524FkuTrihealth Mccullough-Hyde Memorial Hospital Comment on above:Performed By: #### TSH, BMP, LIPID, ALT #### [facility] [address] [place] [address] Dr. Fidel PaigePotassium [Moles/Vol]4.0 mmol/LNormal3.5-5.1[facility] Comment on above:Performed By: #### TSH, BMP, LIPID, ALT #### [facility] [address] [place] [address] Dr. Fidel PaigeSodium [Moles/Vol]141 mmol/KWojmpm196-992QewTrihealth Mccullough-Hyde Memorial Hospital Comment on above:Performed By: #### TSH, BMP, LIPID, ALT #### [facility] [address] [place] [address] Dr. Fidel PaigeUrea nitrogen [Mass/Vol]13.0 mg/dLNormal7.0-18.0The [facility] HospitalComment on above:Performed By: #### TSH, BMP, LIPID, ALT #### [facility] [address] [place], [place] [address] Dr. Fidel PaigeUrea nitrogen/Creatinine [Mass ratio]15.3 mg/mgNoCleveland Clinic FoundationComment on above:Performed By: #### TSH, BMP, LIPID, ALT #### [facility] [address] [address] [address] Fidel Haque 22-97-7364XKF [Catalytic activity/Vol]26 U/VQjwfyo51-27Fpl [facility] HospitalComment on above:Performed By: #### TSH, BMP, LIPID, ALT #### [facility] [address] [address] [address] Fidel Gonsalez 18-60-7565TZL0.856 uIU/mLNormal0.358-3.740The [facility] HospitalComment on above:Performed By: #### TSH, BMP, LIPID, ALT #### [facility] [address] [address] [address] Fidel PaigeXR CHEST 2V FRONTAL/LATon 24-46-9123Pwtqkcybb ClinicUS VENOUS DOPPLER L Cristian 95-68-1107EY VENOUS DOPPLER L ARMEXAMINATION: US VENOUS DOPPLER L ARM HISTORY: Pain [...] Electronically authenticated by: TIFFANY GUPTA Date: 2021-10-10 12:51[facility] [facility] [place] Vital Signs Date TimeVital SignValuePerforming JihhcfvsjRhvcnylw41-48-6873 17:-040Body uzliep597.42 cmBenjamin Ball DO Work Phone: [facility]09-16-2025 17:040 Body mass index (BMI) [Ratio]35.5 kg/h5Apfbezcw Ball DO Work Phone: [phone] [place], [place] 6694309-16-2025 17:26-0400 Body cywzia790.07 kgBenjamin Ball DO Work Phone: [phone] [place], [place] 6694309-16-2025 17:26-0400 Diastolic blood lonbmcfl72 mm[Hg]Alvin Ball DO Work Phone: [phone] [place], [place] 6694309-16-2025 17:26-0400 Heart rate72 /minBenjamin Ball DO Work Phone: [phone] [place], [place] 6694309-16-2025 17:26-0400 SaO2% (BldA) [Mass fraction]96 %Alvin Ball DO Work Phone: [phone] [place], [place] 6694309-16-2025 17:26-0400 Systolic blood ljnzicfd519 mm[Hg]Alvin Ball DO Work Phone: [phone] [place], [place] 6694308-26-2025 15:19-0400 Body zmcfot900.42 cmBenjamin Ball DO Work Phone: [phone])[address] [place], [place] 6694308-26-2025 15:19-0400 Body mass index (BMI) [Ratio]35.9 kg/v0Hxqqcvlr Ball DO Work Phone: [phone])[address] [place], [place] 6694308-26-2025 15:19-0400 Body usnjaa178.43 kgBenjamin Ball DO Work Phone: [phone])[address] [place], [place] 6694308-26-2025 15:19-0400 Diastolic blood ylwjvhrx88 mm[Hg]Alvin Ball DO Work Phone: 1(419)[address] [place], [place] 6694308-26-2025 15:19-0400 Heart rate71 /minBenjamin Ball DO Work Phone: 1(419)[address] [place], [place] 6694308-26-2025 15:19-0400 Respiratory rate12 /minBenjamin Ball DO Work Phone: 1(419)[address] [place], [place] 6694308-26-2025 15:19-0400 Systolic blood fzpdfyor269 mm[Hg]Alvin Ball DO Work Phone: [facility]07-15-2025 09:07-0400 Body mvasdy055 cmPacc 6 Work Phone: [phone]07-15-2025 09:07-0400Body mass index (BMI) [Ratio]34.02 kg/m2Pacc 6 Work Phone: [phone]07-15-2025 09:07-0400Body temperature 97.59 [degF]Pacc 6 Work Phone: [phone]07-15-2025 09:07-0400Body fsnsfa179.2 kgPacc 6 Work Phone: [phone]07-15-2025 09:07-0400Diastolic blood mm[Hg]Pacc 6 Work Phone: [phone]07-15-2025 09:07-0400Heart rate62 /min Pac 6 Work Phone: [phone]07-15-2025 09:07-2463QlX9% (BldA) [Mass fraction]96 %Pac 6 Work Phone: [phone]07-15-2025 09:07-0400Systolic blood abezhmir922 mm[Hg]Pac 6 Work Phone: [phone]05-29-2025 11:53-0400Body xygeie880.42 cmOhio[facility]05-29-2025 11:53-0400Body mass index (BMI) [Ratio]35.2 kg/d5LqhuuclstOhiohealth Southeastern Medical Center05-29-2025 11:53-0400Body eyqiyu523.22 kgOhio[facility]05-29-2025 11:53-0400Diastolic blood mdmildvm28 mm[Hg][facility]05-29-2025 11:53-0400 Diastolic blood comdeagp30 mm[Hg]Alvin Lo DO Work Phone: [facility]05-29-2025 11:53-0400 Heart rate73 /minOhiohealth [facility]heastern Medical Center05-29-2025 11:53-0400 Respiratory rate12 /[facility]05-29-2025 11:53-0400 SaO2% (BldA) [Mass fraction]95 %[facility]05-29-2025 11:53-0400Systolic blood uhsimzbl464 mm[Hg][facility] 09-15-2024 11:53-0400Systolic blood qqzbgyfo679 mm[Hg]Alvin Lo DO Work Phone: [facility]05-27-2025 11:05-0400 Body sfamzf196.2 cmGeneva Butler MD Work Phone: [facility]05-27-2025 11:05-0400Body mass index (BMI) [Ratio]34.42 kg/r0XnscmGeneva Butler MD Work Phone: [facility]05-27-2025 11:05-0400Body qzpysz839.2 kgGeneva Butler MD Work Phone: [facility]05-27-2025 11:05-0400Diastolic blood rxsepzvt22 mm[Hg]Geneva Butler MD Work Phone: [facility]05-27-2025 11:05-0400Heart rate75 /min Geneva Butler MD Work Phone: [facility]05-27-2025 11:05-0400Systolic blood jxnjdeyr385 mm[Hg]Geneva Butler MD Work Phone: [facility]05-13-2025 11:42-0400Body sewwrr358.42 cmOhio[facility]05-13-2025 11:42-0400Body mass index (BMI) [Ratio]34.4 kg/p3PgpvgqrlfOhiohealth Southeastern Medical Center05-13-2025 11:42-0400Body .44 kgOhio[facility]05-13-2025 11:42-0400Diastolic blood iahclppy93 mm[Hg][facility]05-13-2025 11:42-0400 Heart rate80 /[facility]05-13-2025 11:42-0400 Respiratory rate12 /[facility]05-13-2025 11:42-0400 Systolic blood zfkdczba065 mm[Hg][facility]04-29-2025 15:05-0400Body mass index (BMI) [Ratio]33.95 kg/f0QcjpxHerber Donald MD Work Phone: [facility]04-29-2025 15:05-0400Body uwosob660.2 Wood Donald MD Work Phone: [facility]04-29-2025 15:05-0400Diastolic blood ayybtcnp26 mm[Hg]Herber Donald MD Work Phone: [facility]04-29-2025 15:05-0400Heart rate64 /min Herber Donald MD Work Phone: [facility]04-29-2025 15:05-0400Systolic blood udzxyyhu628 mm[Hg]Herber Donald MD Work Phone: [facility]01-08-2025 15:30-0500Body olxrak316.42 cmOhio[facility]01-08-2025 15:30-0500Body mass index (BMI) [Ratio]34.3 kg/a5LijxxolrzOhiohealth Southeastern Medical Center01-08-2025 15:30-0500Body .16 kgOhio[facility]01-08-2025 15:30-0500Diastolic blood vmpbyynv64 mm[Hg][facility]01-08-2025 15:30-0500 Heart rate72 /[facility]01-08-2025 15:30-0500 Respiratory rate20 /[facility]01-08-2025 15:30-0500 Systolic blood luoonszf900 mm[Hg][facility]12-17-2024 13:44-0500Body oysjrd469.2 cmNicole Moon DO Work Phone: [facility] HospitalBkfdowwghz90-82-4815 13:44-0500Body mass index (BMI) [Ratio]31.92 kg/a8Hyblge Moon DO Work Phone: [facility] HospitalOjjxrkqusi59-82-3014 13:44-0500Body peihzp679.31 kgNicole Moon DO Work Phone: [facility] HospitalYxhtrbhesz49-50-7868 13:44-0500Diastolic blood hiztarmw29 mm[Hg]Amanda Moon DO Work Phone: [facility] HospitalEyrjubdbvm40-62-1311 13:44-0500Heart rate63 /min Amanda Moon DO Work Phone: [facility] HospitalOshnreoypr06-90-0063 13:44-7449OxD4% (BldA) [Mass fraction]97 %Amanda Moon DO Work Phone: [facility] HospitalLqwbkjdogf34-47-4741 13:44-0500Systolic blood kmhgwzka746 mm[Hg]Amanda Moon DO Work Phone: [facility] HospitalZpiouwqdut36-53-2117 11:25-0500Body mass index (BMI) [Ratio]34 kg/c5LatwyuvjiOhiohealth Southeastern Medical Center11-22-2024 11:25-0500 Diastolic blood stanochg86 mm[Hg][facility]11-22-2024 11:25-0500Systolic blood irangwbf307 mm[Hg][facility] 03-11-2024 11:04-0500Body zzxdeq476.42 cmOhio[facility] 03-11-2024 11:04-0500Body fefpvg811.8 kgOhiohealth Southeastern Medical Center 03-11-2024 11:04-0500Heart rate74 /[facility] 03-11-2024 11:04-0500Respiratory rate12 /[facility] 02-22-2024 10:41-0500Body soowml531.2 cmNicole Moon DO Work Phone: [facility] HospitalGewohzjttm21-71-1322 10:41-0500Body mass index (BMI) [Ratio]32.18 kg/a3Mpqwjr Moon DO Work Phone: [facility] HospitalKfszvomqot97-77-4825 10:41-0500Body stoltr925.21 kgNicole Moon DO Work Phone: [facility] HospitalAhkscddklp39-04-9652 10:41-0500Diastolic blood zutgugxa49 mm[Hg]Amanda Mustafa DO Work Phone: [facility] HospitalNqmxwusflh83-20-8727 10:41-0500Heart rate88 /min Amanda Mustafa DO Work Phone: [facility] HospitalDsitodpdgp67-69-4784 10:41-4947TxA9% (BldA) [Mass fraction]99 %Amanda Mustafa DO Work Phone: [facility] HospitalItgfquznpj88-21-8940 10:41-0500Systolic blood tjlkjiau219 mm[Hg]Amanda Mustafa DO Work Phone: [facility] HospitalGlwceqsjhb01-82-9827 11:04-0400Body .42 cmOhio[facility]08-15-2024 11:04-0400Body mass index (BMI) [Ratio]33.8 kg/s1LwxddqebvOhiohealth Southeastern Medical Center08-15-2024 11:04-0400Body karrhm333.28 kgOhiohealth [facility]heastern Medical Center08-15-2024 11:04-0400Diastolic blood qmvcwqsi28 mm[Hg][facility]08-15-2024 11:04-0400 Heart rate71 /[facility]08-15-2024 11:04-0400 Respiratory rate12 /[facility]08-15-2024 11:04-0400 Systolic blood dcyxfhev762 mm[Hg][facility] Encounters Encounter DateEncounter TypeCare ProviderFacilityStart: 02-28-2025 End: 28-01-5805lewbatxiwlXRDPT MALENA PATELFacility:[facility] Start: 64-32-2051pnbekdtrzuCZIA [facility]tart: 01-03-2025 End: 92-06-5973bsgypbmprgKdnguwbi Ball DO Work Phone: [facility] Work Phone: Start: 01-03-2025 End: 32-43-8201Pbegspr encounter procedureNicole Shalonda Moon DO-[facility] Work Phone: Start: 12-13-2024 End: 99-14-1102ksgolxnbwmYnhzqwij Teresita DO Work Phone: [facility] Work Phone: Start: 12-13-2024 End: 91-34-4400Xopejxh encounter procedureBexiomara Lo DO-[facility] Work Phone: Start: 93-61-4441Tfo-patient / Non-visitCatherjeffery Nguyen VASCULAR NEUROLOGIST-[facility] Work Phone: Start: 06-68-0230Pyj-patient / Non-visitJekerri Metcalf DO-[facility] Work Phone: Start: 11-29-2024 End: 29-59-1891Xdzrqitsp to same day surgery centerGeneva Butler MD Work Phone: Endocrine SurgeryComment on above:Hyperparathyroidism (HCC) (Primary Dx)Start: 11-29-2024 End: 04-56-5360Gwqzsigiingc consultation with patientGeneva Butler MD Work Phone: Endocrine SurgeryStart: 11-29-2024 End: 24-59-1790wykjwkqeclXDJMB JUNG MEE SHINFacility:[facility] Start: 82-87-0545Lku-patient / Non-visitBexiomara Lo DO-[facility] Work Phone: Start: 11-18-2024 End: 18-77-8468Jmokzxlnb encounterGeneva Butler MD Work Phone: Endocrine SurgeryComment on above:Post OpStart: 18-20-9861ktbeklbxtsHWDO [facility] Hospitaltart: 02-01-8923Yib-patient / Non-visitOutside Provider-[facility] Work Phone: Start: 11-14-2024 End: 76-72-5855lbmzlxvrkeAEHJIXBD E BALLFacility:[facility] Hospitalrt: 03-54-4095mzwpyehukkBEFIEMc BUTLERFacility:[facility]tart: 11-01-2024 End: 16-14-5189Qfnsinkwwo hospital visit by physicianSpectct3 Work Phone: Molecular ImagingComment on above:Hyperparathyroidism (HCC) [E21.3]Start: 53-23-4186Qxs-patient / Non-visitGeneva Butler MD-[facility] Work Phone: Start: 11-01-2024 End: 59-63-8750lpwmyinzhkZOZUV JUNG MEE SHINFacility:[facility] Start: 88-48-8018ceumypddqiNEOMQMc BUTLERFacility:[facility] Start: 11-01-2024 End: 55-80-1393Artzqhsfwj hospital visit by physicianNthyupMolecular Imaging Start: 11-01-2024 End: 53-26-2455Hrchjtfgm to establishmentPe[facility] Main 6 Work Phone: pre AnesthesiaStart: 11-01-2024 End: 32-26-6495Ztbplqrpqx consultationPeacehealth [facility] Medical Center Main 6 Work Phone: pre AnesthesiaComment on above:Chondrosarcoma (HCC) (Primary Dx); REMY (obstructive sleep apnea); Essential hypertension; Class 1 obesity due to excess calories without serious comorbidity with body mass index (BMI) of 34.0 to 34.9 in adult; Paroxysmal atrial fibrillation (HCC); SVT (supraventricular tachycardia) (HCC)Start: 11-01-2024 End: 09-19-8666tshudrkqesCCKMAOJI E BALLFacility:[facility] Hospitaltart: 10-25-2024 End: 09-34-3883nvwulvrbtaEDHU [facility]tart: 10-19-2024 End: 09-73-9702jdyuzcbywzAHPZZRUL E BALLFacility:[facility] Hospitaltart: 10-04-2024 End: 21-69-7828Txscypfmo encounterGeneva Butler MD Work Phone: Endocrine SurgeryComment on above:NM Parathyroid RequestStart: 09-15-2024 End: 11-88-0541eycsviokfaNwmisemshGreene Memorial Hospital Work Phone: Start: 09-15-2024 End: 83-70-8351Kuybuyc encounter procedureAt[facility] Work Phone: Start: 09-13-2024 End: 50-97-0603Iqecoor encounter procedureGeneva Butler MD Work Phone: Endocrine SurgeryComment on above:Hyperparathyroidism (HCC) (Primary Dx)Start: 09-13-2024 End: 21-83-7225uadsuourcbPOPGCMc BUTLERFacility:[facility] Start: 14-76-1391rfnbllgxznJMTBKing's Daughters Medical Center Ohiotart: 08-30-2024 End: 36-79-4338ufrygljqskHhiwgfzjuBrecksville [facility] Work Phone: Start: 08-30-2024 End: 40-45-4935Rxjyyll encounter procedureAtrium Health [facility] Physician GroupPaulding [facility] Hospital Work Phone: Start: 35-04-3821Izs-patient / Non-visitAtrium Health [facility] Physician GroupPaulding County Hospital Work Phone: Start: 74-17-3839Drd-patient / Non-visitAt[facility] Health [facility] Physician GroupFranciscan Health Professional Co Work Phone: Start: 37-86-9097Fxc-patient / Non-visitFirsentara [facility] Work Phone: Start: 56-28-6364Tgd-patient / Non-visitFircrawfords Physician Group-[facility] Work Phone: Start: 08-23-2024 End: 64-11-4372Pfkblzmkj encounterGeneva Butler MD Work Phone: Endocrine SurgeryComment on above:Appointment (Left a messge that appointment with scheduled for today(08/23) was rescheduled to 09/13 at 12:20 PM due to patient not feeling well. Sent My chart message)Start: 08-18-2024 End: 18-63-1627Jjmxpayje encounterHerber Donald MD Work Phone: EndocrinologyComment on above:Results ([facility] - DXA scan )Start: 08-17-2024 End: 66-71-9981Anldrf-up encounterHerber Donald MD Work Phone: EndocrinologyStart: 08-17-2024 End: 31-26-5646Rmkaozwne encounterJoyshereen Butler MD Work Phone: Endocrine SurgeryComment on above:Consult (FACE SHEET) Start: 84-92-5423Uwk-patient / Non-visitFirsentara [facility] Physician GroupFranciscan Health [facility] Co Work Phone: Start: 08-16-2024 End: 39-68-7860Yirlbzo encounter procedureHerber Donald MD Work Phone: EndocrinologyComment on above:Primary hyperparathyroidism (HCC) (Primary Dx); HypercalcemiaStart: 08-16-2024 End: 87-47-4320sbqlfutkbbFRPQL ARVIND PATELFacility:[facility] Start: 79-74-5017Cdx-patient / Non-visitAt[facility] Health [facility] Physician GroupFranciscan [facility] Work Phone: Start: 07-08-2024 End: 38-30-2254mvgzxxwvdtHPIM SNGlenbeigh Hospitaltart: 93-08-5954Hsc-patient / Non-visitAtrium Health [facility] Physician GroupFranciscan [facility] Co Work Phone: Start: 07-04-2024 End: 09-78-7023fifvupkrgzNQSQLG GILLMORNot AvailableStart: 42-58-4518shlnwszimo PAUL [facility] Hospitaltart: 06-14-2024 End: 65-64-7498rcrshzssezMRBL [facility]tart: 10-76-7065idnbnqnbleVSNQ [facility] Hospitaltart: 04-27-2024 End: 38-53-3903vswcefaruvGdmjdlntiGreene Memorial Hospital Work Phone: Start: 04-27-2024 End: 31-36-5075Yyxjbsz encounter procedureAnne [facility]ician [facility] Work Phone: Start: 04-07-2024 End: 02-42-8811Pgswfovsd Result EncounterNicole Moon DO Work Phone: noms External Department UnsolicitedStart: 04-07-2024 End: 93-35-6514Krezthpqc Result EncounterNicole Moon DO Work Phone: noms External Department UnsolicitedStart: 04-07-2024 Non-patient / Non-visitAnne Physician Group-[facility] Work Phone: Start: 04-05-2024 End: 13-05-2092Xsfkgs flowsheetNicole Moon DO Work Phone: noms [address] R[address]TEStart: 04-05-2024 End: 34-89-3845Muyvvo flowsheetNicole Moon DO Work Phone: noms [address] ROUTEStart: 04-05-2024 End: 70-74-7550Mayywe outpatient visit 25 minutesNicole Moon DO Work Phone: noms [address] STATE ROUTEComment on above:Idiopathic peripheral neuropathy (Primary Dx); Numbness and tingling; 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; WeaknessStart: 04-05-2024 End: 74-12-7671phcuipnletFOUQYB DANNERNot AvailableStart: 07-52-7233zqtjhiqmmx PAUL [facility] Hospitaltart: 03-15-2024 End: 10-90-9553enqqfumtivZMUOVCW [facility]tart: 03-11-2024 End: 43-13-3799Tlclxiy encounter procedureAnne Physician GroupPaulding County Hospital Work Phone: start: 80-87-4568Mzm-patient / Non-visitAtrium Health [facility] Physician GroupFranciscan Health [facility] Co Work Phone: Start: 38-23-0460Aesnmze encounter [facility] Hospitaltart: 33-47-6686lxiwhjmfyaTCRGKing's Daughters Medical Center Ohiotart: 26-13-6888Cpz-patient / Non-visitAt[facility] Health [facility] Work Phone: Start: 02-24-2024 End: 68-58-7698bclnhpfldlBZGRGI DANNERNot AvailableStart: 02-24-2024 End: 38-59-2194Jpuvtlm encounter procedureNicole Moon DO Work Phone: noms NEUROLOGYComment on above:Idiopathic peripheral neuropathyStart: 02-22-2024 End: 44-58-1837Yqcist flowsheetNicole Moon DO Work Phone: noms NEUROLOGYStart: 02-22-2024 End: 87-41-0087Agrjoa flowsheetNicole Moon DO Work Phone: noms NEUROLOGYStart: 02-22-2024 End: 24-50-7814xtzsccgsizVBYLQC DANNERNot AvailableStart: 02-22-2024 End: 13-89-6516Jhjshk outpatient new 45 minutesNicole Moon DO Work Phone: noms NEUROLOGYComment on above:Idiopathic peripheral neuropathy (Primary Dx); 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; Weakness; Numbness and tinglingStart: 38-39-2810olybrwqanmUXQNKing's Daughters Medical Center Ohiotart: 12-03-2023 End: 10-28-9765tqiunhbxgbPnpekgkfqBrecksville [facility] Work Phone: Start: 12-03-2023 End: 46-18-3901Sqtmymh encounter procedureAtrium Health [facility] Physician GroupPaulding County Hospital Work Phone: Start: 02-61-8768Rmh-patient / Non-visitAt[facility] Health [facility] Work Phone: Start: 06-04-2023 End: 77-79-8349qtddfgogfwPhwkzibt Ball Other noBlogBusJefferson [facility] Hospital GMI Other Start: 75-34-0656Hhdsfwmsn by computer linkAlvin Lo Medical ClinicStart: 05-29-2023 End: 26-07-2973knoqowryejFomhutxr Ball Other noBlogBusJefferson [facility] Hospital GMI Other Start: 51-87-5504Pqzimthzh encounterBexiomara Lo Medical ClinicStart: 01-13-2023 End: 15-84-3584koxqoxkebiXYDUQC W MESKOFacility:[facility] Hospitaltart: 68-92-5609Jakkyc Whitney Pineda MD Work Phone: OrthopaedicsComment on above:Chronic pain of left ankle (Primary Dx)Start: 06-95-0484Wlsvcv Whitney Pineda MD Work Phone: OrthopaedicsComment on above:Chondrosarcoma (HCC) (Primary Dx)Start: 06-09-2022 End: 54-78-4331orlicwqkxkWKKRLKD TUCKERFacility:A1Lpjnb: 02-07-2022 End: 44-84-6591xeayxtmscrAZ ALVIN BALLFacility:D0Yqchs: 11-05-2021 End: 58-93-9355Prdnjsa encounter procedureHaresh Pineda MD Work Phone: OrthopaedicsComment on above:Chondrosarcoma (HCC) (Primary Dx)Start: 11-05-2021 End: 96-07-6832Ltvsmeylia hospital visit by physicianXr Chest Main H17Jvzdyqpia Comment on above: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]Start: 10-10-2021 End: 14-49-0452vddpgivdjjJX ALVIN BALLFacility:I6Qqgws: 11-09-2017 End: 34-55-7913Bgthpas encounterDEFAULT PHYSICIANFacility:[facility] Procedures DateProcedureProcedure DetailPerforming ClinicianStart: 25-36-8638VBD THYROID STIM HORMONENicole Moon DO Work Phone: Start: 52-26-0668Qzdzhi-up visitFollow-upMELPAO YAOERStart: 02-24-2024 End: 09-76-0092Bmmxbf emg ea extremty w/paraspinl area completeNicole Moon DO Work Phone: Start: 05-56-2111NXI screeningDR ALVIN Rosen on above:Performed By: #### TSH, BMP, LIPID, ALT #### [facility] [address] [address] [address] Fidel PaigeStart: 90-23-1201Rjjkixnwhl exam chest 2 viewsAndre Brandon MEEKSN.PRESS SETTER Work Phone: Start: 10-10-9096Vkblzvfyfc examination tibia & fibula 2 viewsAndre Brandon MEEKSN.PRESS SETTER Work Phone: Start: 21-95-5071Wrhrk depression screening assessment Haresh Pineda MD Work Phone: Plan of Treatment DateCare ActivityDetailAuthorStart: 68-13-7656Vgbbubjz ScreeningDiabetes ScreeningSycamore Medical Centertart: 84-10-3646Dbrpq microalbumin profileDTaP,Tdap,Td Vaccine (3 - Tdap)[facility]art: 45-76-9048YB Controlled (<130/80)BP Controlled (<130/80)[facility]art: 60-77-5536CS Controlled (<130/80)BP Controlled (<130/80)[facility] Centertart: 02-28-2025 End: 77-54-1040Mhuvnry encounter /11/2025 2:20 PM EST Office Visit Endocrinology [address] [place] [address] Herber Donald MD [address] [place] [address] [place] [address] Return in about 6 months (around 02/15/2025).Endocrinology Comment on above:Return in about 6 months (around 02/15/2025).Start: 02-16-2025 End: 75-50-832472608659-axhspeemdtkzhs D3 [Mass/volume] in Serum or PlasmaVITAMIN D 25 HYDROXY Lab Routine Primary hyperparathyroidism (HCC) Expected: 02/16/2025, Expires: 05/18/2025levelnovant health forsy[facility] ClinicComment on above:Expected: 02/16/2025, Expires: 05/18/2025Start: 02-16-2025 End: 72-80-0371Gfmcphaioj.intact [Mass/volume] in Serum or PlasmaPTH INTACT Lab Routine Primary hyperparathyroidism (HCC) Expected: 02/16/2025, Expires: 05/18/2025[facility] ClinicComment on above:Expected: 02/16/2025, Expires: 05/18/2025Start: 02-16-2025 End: 88-53-8155Uxwlo function 2000 panel - Serum or PlasmaRENAL FUNCTION PANEL Lab Routine Primary hyperparathyroidism (HCC) Expected: 02/16/2025, Expires: [facility] Work Phone: Comment on above:Expected: 02/16/2025, Expires: 05/18/2025Start: 97-94-1304Diqyrsfdg for malignant neoplasm of colonNOMS HealthcareStart: 22-05-5188Lkxkctqrs vaccinationInfluenza Vaccine (#1)[facility]art: 11-29-2024 End: 20-10-2914Rovbidvzd to same day surgery zfahyn9811/29/2024 2:20 PM EDT [facility] Endocrine Surgery [address] [place] [address] Geneva Butler MD [address] [id number] post opEndocrine SurgeryComment on above: post opStart: 11-14-2024 End: 25-00-1812Rbzhbjvzu to same day surgery dpbryv8911/14/2024 7:30 AM EDT - 11/14/2024 9:15 AM EDT [facility] Surgery [address] [place] [address] Geneva Butler MD [address] [place] [address] PARATHYROIDECTOMYOhiohealth [facility] Medical Center SurgeryComment on above:PARATHYROIDECTOMYStart: 11-14-2024 End: 13-62-3403Lgwqlcbyrveyqxhxu/exploration parathyroidsPARATHYROIDECTOMY Hyperparathyroidism (HCC) 11/14/2024 7:30 AM EDTMM ORStart: 71-01-6860Azrykluroo hospital visit by sbdadjjou82/28/2025 7:30 AM EDT Hospital Encounter [facility] Surgery [address] [place] [address] Geneva Butler MD [address], [place] [id number] Hyperparathyroidism (HCC) [E21.3][facility] Surgery Comment on above:Hyperparathyroidism (HCC) [E21.3]Start: 11-01-2024 End: 27-59-5071Htrbvby encounter xlqeesipu50/15/2025 1:30 PM EDT Appointment Molecular Imaging [address] [place] [address] [place] PARATHYROID W SPECTCTMolecular ImagingComment on above:NM PARATHYROID W SPECTCT Start: 11-01-2024 End: 64-00-3223kkgdarwsevWcrjeslcorCxdcqho on above:pre-opStart: 11-01-2024 End: 39-02-1810Woymrbc encounter xrvtwlgra81/15/2025 10:30 AM EDT Appointment Molecular Imaging [address] [place] [address] [place] PARATHYROID W SPECTCTMolecular ImagingComment on above:NM PARATHYROID W SPECTCT Start: 11-01-2024 End: 44-93-6310Kzuspgxcwt bbexlqfsnqrh17/15/2025 9:00 AM EDT PAT Pre Anesthesia [address] [place] [address] 6, [address] [place] [address] pre-opPre AnesthesiaComment on above: pre-opStart: 09-13-2024 End: 70-60-0110Whdgstm encounter uxeteysig94/27/2025 12:20 PM EDT Office Visit Endocrine Surgery [address] [id number] Geneva Butler MD [address] [place] [address] Pt okay to check-in at 11AM. CristinaEndocrine SurgeryComment on above:Pt okay to check-in at 11AM. CristinaStart: 08-23-2024 End: 29-39-4406Bgoacvy encounter qfgmsnadw10/06/2025 12:20 PM EDT Office Visit Endocrine Surgery [id number] Geneva Butler MD [address] [place] [address] INTAKE PENDING-HYPERPARATHRYOIDISMEndocrine SurgeryComment on above:INTAKE PENDING-HYPERPARATHRYOIDISMStart: 08-17-2024 End: 09-33-3060Dcslhdkgdv [Mass/volume] in Serum or PlasmaKettering Health [facility] Comment on above:Expected: 08/17/2024 (Approximate), Expires: 11/16/2024Start: 08-17-2024 End: 73-48-8900Uedabwv.ionized [Moles/volume] in BloodCALCIUM, IONIZED Lab Routine Hyperparathyroidism (HCC) Expected: 08/17/2024 (Approximate), Expires: 11/16/2024[facility] Work Phone: Comment on above:Expected: 08/17/2024 (Approximate), Expires: 11/16/2024Start: 08-16-2024 End: 08-36-428014638694-gurfiqbctexmjk D3 [Mass/volume] in Serum or PlasmaKettering Health – Soin Medical CenterComment on above:Expected: 08/16/2024, Expires: 11/15/2024Start: 08-16-2024 End: 37-94-7508Xagntfxmrb.intact [Mass/volume] in Serum or PlasmaKettering Health – Soin Medical CenterComment on above:Expected: 08/16/2024, Expires: 11/15/2024Start: 08-16-2024 End: 50-30-8117Hnlrz function 2000 panel - Serum or PlasmaD[facility] Medical Center Work Phone: Comment on above:Expected: 08/16/2024, Expires: 11/15/2024Start: 07-04-2024 End: 43-01-5120Riazvil encounter ozqsjiwlj74/17/2025 4:00 PM EDT [facility] [address] [place] [address] Arlene Degroot, NILA [address] [place], [place] [facility] ROUTEStart: 47-23-5730Rnozz-19 Vaccine ( season)Covid-19 Vaccine ()[facility]: 97-06-9429Tvzhxoq Directive DiscussionAdvance Directive Discussion [facility]: 04-05-2024 End: 09-92-8914Siioklhog (Vitamin B12) [Mass/volume] in Serum or PlasmaVitamin B12 Lab Routine Idiopathic peripheral neuropathy Expected: 04/05/2024 (Approximate), Expires: 04/05/2025[facility] HealthcareComment on above:Expected: 04/05/2024 (Approximate), Expires: 04/05/2025Start: 04-05-2024 End: 95-53-4354Tcduol [Mass/volume] in Serum or PlasmaFolate Lab Routine Idiopathic peripheral neuropathy Expected: 04/05/2024 (Approximate), Expires: 04/05/2025[facility] HealthcareComment on above:Expected: 04/05/2024 (Approximate), Expires: 04/05/2025Start: 04-05-2024 End: 75-42-4168Pnalgfo electrophoresis, serumProtein electrophoresis, serum Lab Routine Idiopathic peripheral neuropathy Expected: 04/05/2024 (Approximate), Expires: 04/05/2025[facility] HealthcareComment on above:Expected: 04/05/2024 (Approximate), Expires: 04/05/2025Start: 04-05-2024 End: 76-74-1607Uicmpaukpwo [Units/volume] in Serum or PlasmaTSH Lab Routine Idiopathic peripheral neuropathy Expected: 04/05/2024 (Approximate), Expires: 04/05/2025[facility] Work Phone: comment on above:Expected: 04/05/2024 (Approximate), Expires: 04/05/2025Start: 04-05-2024 End: 13-44-5131Vjiqphv encounter procedureNOND FLORY [facility] R[facility]TEComment on above:ArrivedStart: 02-24-2024 End: 00-31-6506Ebukdit encounter pcwzxwygr26/06/2024 1:00 PM EST Procedure Visit [facility] NEUROLOG[facility] [address] [address] Amanda Mustafa, [address] [place], [place] [id number] [facility] NEUROLOGYStart: 02-22-2024 End: 74-03-6356Pqngibfqb (Vitamin B12) [Mass/volume] in Serum or PlasmaVitamin B12 Lab Routine Idiopathic peripheral neuropathy Expected: 02/22/2024 (Approximate), Expires: 02/21/2025[facility] Work Phone: comment on above:Expected: 02/22/2024 (Approximate), Expires: 02/21/2025Start: 02-22-2024 End: 73-90-2487ZFP 2 ExtremitiesEMG 2 Extremities Neurology Routine Idiopathic peripheral neuropathy Expected: 02/22/2024 (Approximate), Expires: 02/21/2025 [facility] HealthcareComment on above:Expected: 02/22/2024 (Approximate), Expires: 02/21/2025Start: 02-22-2024 End: 17-23-5065Leydrr [Mass/volume] in Serum or PlasmaFolate Lab Routine Idiopathic peripheral neuropathy Expected: 02/22/2024 (Approximate), Expires: 02/21/2025[facility] HealthcareComment on above:Expected: 02/22/2024 (Approximate), Expires: 02/21/2025Start: 02-22-2024 End: 77-33-8113PXW 9-10 NervesNVC 9-10 Nerves Neurology Routine Idiopathic peripheral neuropathy Expected: 02/22/2024 (Approximate), Expires: 02/21/2025 [facility] HealthcareComment on above:Expected: 02/22/2024 (Approximate), Expires: 02/21/2025Start: 02-22-2024 End: 43-69-2119Nkotjze electrophoresis, serumProtein electrophoresis, serum Lab Routine Idiopathic peripheral neuropathy Expected: 02/22/2024 (Approximate), Expires: 02/21/2025[facility] HealthcareComment on above:Expected: 02/22/2024 (Approximate), Expires: 02/21/2025Start: 02-22-2024 End: 66-18-2920Ttkwtsfnqda [Units/volume] in Serum or PlasmaTSH Lab Routine Idiopathic peripheral neuropathy Expected: 02/22/2024 (Approximate), Expires: 02/21/2025[facility] HealthcareComment on above:Expected: 02/22/2024 (Approximate), Expires: 02/21/2025Start: 42-37-2198Yvyovtoye vaccinationSycamore Medical Centertart: 11-05-2022 End: 17-52-1006Xuvfcqesfa exam chest 2 viewsXR CHEST 2V FRONTAL/LAT Radiology Routine Chondrosarcoma (HCC) Expected: 11/05/2022 (Approximate), Expires: 12/05/2022[facility] Work Phone: Comment on above:Expected: 11/05/2022 (Approximate), Expires: 12/05/2022Start: 11-05-2022 End: 60-40-1576AB TIBIA FIBULA 2V AP/LAT RIGHTXR TIBIA FIBULA 2V AP/LAT RIGHT Radiology Routine Chondrosarcoma (HCC) Expected: 11/05/2022 (Approximate), Expires: 12/05/2022[facility] Work Phone: comment on above:Expected: 11/05/2022 (Approximate), Expires: 12/05/2022Start: 37-96-5975UTHJAZCD SCREENDIABETES SCREENSycamore Medical Centertart: 24-57-8142Qwggqkya ScreeningDiabetes ScreeningKettering Health – Soin Medical Center Start: 92-55-4594VEQEILH DIRECTIVE DISCUSSIONADVANCE DIRECTIVE DISCUSSION [facility]: 40-70-7616PJEWEUSSQO ASSESSMENTDEPRESSION ASSESSMENT [facility]: 41-65-4462Afsavbdmx vaccinationINFLUENZA (#1)[facility]: 74-59-2288BHHOU-19 VACCINE (5 - Pfizer series)COVID-19 VACCINE (5 - Pfizer series)[facility]: 87-45-7953ASWZKYD DIRECTIVE DISCUSSION ADVANCE DIRECTIVE DISCUSSIONSycamore Medical Centertart: 11-83-5734Zvyva depression screening assessmentDEPRESSION SCREENINGSycamore Medical Centertart: 01-19-2016 Pneumococcal Vaccine: 50+ (2 of 2 - PCV)Pneumococcal Vaccine: 50+ (2 of 2 - PCV) [facility]: 24-88-3808Mzxuefurhvvu Vaccine: 65+ Years (2 of 2 - PCV) Pneumococcal Vaccine: 65+ Years (2 of 2 - PCV)[facility] Pneumococcal Vaccine: 65+ (1 - PCV)Pneumococcal Vaccine: 65+ (1 - PCV)[facility]: 29-35-9645TZAYFXWJNEVF: 65+ (1 - PCV)PNEUMOCOCCAL: 65+ (1 - PCV) [facility]: 05-01-2015Medicare Annual Wellness VisitMedicare Annual Wellness VisitSycamore Medical Centertart: 03-36-5989SCRZODUA VACCINE (1 of 2)SHINGRIX VACCINE (1 of 2)[facility]: 37-90-0563NARDEXIJD (FIT-DNA)COLOGUARD (FIT-DNA)[facility]: 81-96-0818UppgpkoyxkwUMQIQIYBABYLzsandisk Clinic Start: 45-47-3950AHLNCHGMID CANCER SCREENINGCOLORECTAL CANCER SCREENINGSycamore Medical Centertart: 51-29-5977EV COLONOGRAPHYCT COLONOGRAPHYSycamore Medical Centertart: 42-19-7626KVURL OCCULT BLOODFECAL OCCULT BLOODSycamore Medical Centertart: 1994 Screening for malignant neoplasm of colonSycamore Medical Centertart: 1994 SIGMOIDOSCOPYSIGMOIDOSCOPYSycamore Medical Centertart: 49-36-8154Awzsa 1996 panel - Serum or PlasmaLipid ScreeningSycamore Medical Centertart: 96-00-7347Ubvzp panelLipid ScreeningSycamore Medical Centertart: 68-54-7136ZVXSL SCREENLIPID SCREENSycamore Medical Centertart: 55-28-8563Gbvfh microalbumin profileSycamore Medical Centertart: 52-28-3082PORGUM PCP TEAM CHRONIC DISEASE VISITANNUAL PCP TEAM CHRONIC DISEASE VISITSycamore Medical Centertart: 87-85-9791Hyfyouh ScreeningAnxiety Screening [facility]: 11-95-8257XJ CONTROLLED (<130/80)BP CONTROLLED (<130/80) [facility]: 56-71-7357Xyhmzqmfto ScreeningDepression Screening [facility]: 68-80-5028HANPVMIGB C SCREENINGHEPATITIS C SCREENING [facility]: 13-28-0306Zsjkljpco C screeningHepatitis C Screening [facility]: 06-55-7125Sfevcaxmf for malignant neoplasm of colonNOMS HealthcareCALCIUM, 24 HR URINECALCIUM, 24 HR URINE Lab Routine Hyperparathyroidism (HCC) Ordered: 5[facility] ClinicComment on above: Ordered: 5CREATININE, 24 HOUR URINECREATININE, 24 HOUR URINE Lab Routine Hyperparathyroidism (HCC) Ordered: 5[facility] ClinicComment on above:Ordered: 08/17/2024 End: 30-34-5317FLP Skeletal system.axial Views for bone densityDXA-AXIAL SKELETON Radiology Routine Hyperparathyroidism (HCC) 1 Occurrences starting 08/17/2024 until 09/16/2025leveland ClinicComment on above:1 Occurrences starting 08/17/2024 until 09/16/2025 End: 75-49-6543RRY-FOREARM SKELETONDXA-FOREARM SKELETON Radiology Routine Hyperparathyroidism (HCC) 1 Occurrences starting 08/17/2024 until 09/16/2025 [facility] CenterComment on above:1 Occurrences starting 08/17/2024 until 09/16/2025 End: 38-74-6912Hojsuombqe exam chest 2 viewsXR CHEST 2V FRONTAL/LAT Radiology Routine Chondrosarcoma (HCC) 1 Occurrences starting 11/17/2022 until 12/17/2023 [facility] Work Phone: comment on above:1 Occurrences starting 11/17/2022 until 12/17/2023 End: 60-05-0392HLCHB+CT Parathyroid glandNM PARATHYROID W SPECT/CT Radiology Routine Primary hyperparathyroidism (HCC) Hypercalcemia 1 Occurrences starting 08/16/2024 until 09/15/2025[facility] HospitalComment [facility] above:1 Occurrences starting 08/16/2024 until 09/15/2025SPECT+CT Parathyroid glandNM PARATHYROID W SPECT/CT Radiology Routine Hyperparathyroidism (HCC) 11/01/2024 2:25 PM EDT [facility] Work Phone: us Lower extremity vein - rightOhiohealth Southeastern Medical Center End: 49-36-8939XU ANKLE GENERAL 3V AP/LAT/OBL LEFTXR ANKLE GENERAL 3V AP/LAT/OBL LEFT Radiology Routine Chronic pain of left ankle 1 Occurrences starting 01/12/[address] [place] [address] Work Phone: comment on above:1 Occurrences starting 01/12/2023 until 02/11/2024XR Chest 2 [facility] End: 05-00-9049NB TIBIA FIBULA 2V AP/LAT RIGHTXR TIBIA FIBULA 2V AP/LAT RIGHT Radiology Routine Chondrosarcoma (HCC) 1 Occurrences starting 11/17/[address] [place] [address] Work Phone: comment on above:1 Occurrences starting 11/17/2022 until 12/17/2023XR TIBIA FIBULA 2V AP/LAT RTXR TIBIA FIBULA 2V AP/LAT RT Radiology Routine Chondrosarcoma (HCC) 11/05/2021 2:50 PM EDTCC[facility] Work Phone: [facility] Immunizations Immunization DateImmunizationNotesCare RocysnepXgsqvieb13-54-1191yapsainie virus vaccine, unspecified formulationAlvin Lo DO Work Phone: [facility] Medical CenterGleefq91-07-9834hkipvftsl virus vaccine, split virus (incl. purified surface antigen)Alvin Lo Other [place] [employer] Other 10381042-07-6707orrzaghuz virus vaccine, unspecified formulationOhiohealth Southeastern Medical Center02-09-2021COVID-19 Vaccine Pfizer - Documentation Purposes OnlyBenclintonpetey Lo Other [facility]06-15-2017diphtheria, tetanus toxoids and acellular pertussis vaccine, unspecified formulation Alvin Lo Other [facility]12-04-2016 pneumococcal conjugate vaccine, 13 valentBenjamin Ball Other [facility]11-12-2009 pneumococcal polysaccharide vaccine, 23 valentBenjamin Ball Other [facility]11-08-2006diphtheria, tetanus toxoids and acellular pertussis vaccine, unspecified formulation Alvin Lo Other [facility] Payers DatePayer CategoryPayerPolicy ID2015MedicareMEDICARE MEDICARE A AND B [id number] 2014-Present [phone] [address] [address] [place] [address] [id number] 2015Medicare [id number] Health Insurance [id number] UnknownMEDICO MED[facility] [id number] 2014-Present [phone] [address] [address] [place] [address] [id number] [id number] [id number] [id number] [id number] [id number] [id number] [id number] [id number] Social History DateTypeDetailFacilityStart: 07-17-2017 End: 17-05-7238Uluqyam smoking status NHISNever smoked tobaccoKettering Health – Soin Medical Center Start: 07-17-2017 End: 87-24-5436Rksnowu use and exposureSmokeless tobacco non-userSycamore Medical Centertart: 28-81-3595Rlp Assigned At BirthFirstHealth Moore Regional Hospital - Hoke ClinicStart: 10-26-2021 End: 42-61-8815Oicifdrp to SARS-CoV-2 (event)Not sureSycamore Medical Centertart: 05-18-2022 End: 06-86-8145Undmmnf of Social functionSycamore Medical Centertart: 05-18-2022 End: 18-72-7141Xjak Deprivation IndexSycamore Medical Centertart: 39-87-1682Fvrnykst Score (1-100), lower number is lower fcsj44VjzrgfgrcSycamore Medical Centertart: 11-23-2019 Sexual orientationHeterosexual (finding)[facility] Medical CenterTobao smoking status NHISTobacco smoking consumption unknownNOMS HealthcareStart: 97-40-6641Jrt assigned at birthNot on fileMCKAY-DEE HOSPITAL CENTER HealthcareStart: 13-87-4998Yjjruvh smoking status NHISEx-smokerNOND HealthcareHistory of tobacco useCurrent smokerNOND HealthcareHistory of tobacco useCigarette SmokerMCKAY-DEE HOSPITAL CENTER HealthcareStart: 04-27-2024 End: 74-21-7135IvjVueh (finding)[facility] Medical CenterHistory of tobacco usePassive smokerSycamore Medical Centertart: 59-21-2102Mqkaeufop beverage intakeEx-drinker (finding)[facility] Medical Equipment Procedure CodeEquipment CodeEquipment Original TextEquipment IdentifierDates Graft Enhance Demineralized Cortical Fiber Bone Allograft Dehydrate 2.5ml - [id number]: 17-22-4784Dnkgj Cancellous Chips Bone Void Freeze Dry 30ml (1.7-10mm) - [id number]: 57-13-3729Aljdy Dbx Bone Void Allograft Freeze Dried Putty 1ml - [id number]: 35-48-7661Vsalmb [id number]_sevNgali: 06-12-1780Pjedgwnh [id number]_tdjWdhet: 51-09-1778Rnbndpla Titanium [id number]_opiUklvi: 71-71-8136Csulgwch Titanium [id number]_xtuNicfb: 00-16-3244Yfpavluz Titanium [id number]_opaWsjyz: 86-65-4319Omcxoois Titanium [id number]_ccyFfuky: 08-27-2017 Functional Status HiraNdndoxbmmtRyqapaNurjqkfz14-30-0259Bud you deaf, or do you have serious difficulty hearingNo 08/31/2017 4:00 PM Rylee Landon RN [facility] 94-71-8905Bbd you blind, or do you have serious difficulty seeing, even when wearing glassesNo 08/31/2017 4:00 PM Rylee Landon RN [facility] 82-87-8736Ad you have serious difficulty walking or climbing stairsNo 08/31/2017 4:00 PM Rylee Landon RN [facility]05-14-2018Do you have difficulty dressing or bathingNo 08/31/2017 4:00 PM EDRylee Knowles RN No [facility] Medical CenterEyxdfa70-87-3024Bsytime of a physical, mental, or emotional condition, do you have difficulty doing errands alone such as visiting a physician's office or shoppingNo 08/31/2017 4:00 PM Rylee Lanodn RN [facility] Mental Status AproYcmqrcarltYetbqpUxeeuzga49-00-0841Ximhpkz of a physical, mental, or emotional condition, do you have serious difficulty concentrating, remembering, or making decisionsNo 08/31/2017 4:00 PM Rylee Landon RN [facility] Clinical Notes 10-10-2021 to 02-28-2025 Note Date & OgiaOrmyVzuhbkcm60-13-2747 NoteHNO ID: [id number] Author: HERBER DONALD MD Service: ? 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 Energy loss: No Fractures: broke his leg after he fell after cast removed following chondrosarcoma surgery Loss of Height: down 1/2 inch Joint/bone pain: both ankles, nothing new Back pain: No BM change: No Kidney stones: No Mental status/mood change: No Polydypsia/polyuria: thirsty, but could be due to CPAP Hydration: 6-7 cups water daily Calcium supplement: No, 1-2 slices per day and sometimes milk with cereal Vitamin D: Yes, not sure of dose, ?250u Bisphosphonate: No Other supplements: No All other Review of Systems reviewed and are negative. MAGNESIUM ASCORBATE, BULK, MISC, , Disp: , Rfl: multivit-minerals/folic/ginkgo (WOMEN'S 50+ DAILY FORM, GKB, ORAL), Take by mouth., Disp: , Rfl: acetaminophen (TYLENOL) 500 mg tablet, Take 1 tablet by mouth every 4 hours as needed for pain., Disp: , Rfl: qpgglek-jfljhkxct-muwrfco D3 500 mg-5 mcg (200 unit) per tablet, Take 1 tablet by mouth three times a day., Disp: 90 tablet, Rfl: 0 flecainide (TAMBOCOR) 100 mg tablet, Take 100 mg by mouth two times a day., Disp: , Rfl: Magnesium 30 mg tablet, Take 500 mg by mouth once daily., Disp: , Rfl: amLODIPine (NORVASC) 10 mg tablet, Take 10 mg by mouth once daily., Disp: , Rfl: 3 losartan-hydrochlorothiazide (HYZAAR) 100-25 [...] Grandmother Anesthesia Problems No Family History SOCIAL HISTORY[1] PE: BP 148/70 (BP Site: Left Arm, BP Position: Sitting, BP Cuff Size: Large Adult) Pulse 64 Wt 119.3 kg (263 lb 0.1 oz) BMI 33.77 kg/m? Last 3 Encounter Wt Readings: Date: Wt: 02/28/2025 119.3 kg (263 lb 0.1 oz) 11/01/2024 120.2 kg (264 lb 15.9 oz) 09/13/2024 117.9 kg (259 lb 14.8 oz) Gen - NAD, comfortable, pleasant Neck - No visible goiter, nodular, 25g CVS - RRR no murmurs Lung - CTAB, no rales Abd - +BS, soft, nt/nd Skin - normal texture, normal temperature MSK - 5 UE proximal muscle strength bilaterally, No CVA tenderness Neuro - normal relaxation phase of bilateral UE reflexes, No hand tremor Latest Ref Rng 08/16/2024 10/19/2024 11/01/2024 11/14/2024 11/15/2024 Albumin 3.9 - 4.9 g/dL 4.5 Calcium 8.5 - 10.2 mg/dL 11.2 (H) 11.0 (H) 9.2 Phosphorus 2.7 - 4.8 mg/dL 2.2 (L) Glucose 74 - 99 mg/dL 89 108 (H) BUN 9 - 24 mg/dL 21 18 Creatinine 0.73 - 1.22 mg/dL 1.55 (H) 0.86 Sodium 136 - 144 mmol/L 143 140 Potassium 3.7 - 5.1 mmol/L 4.3 4.5 Chloride 98 - 107 mmol/L 107 105 CO2 22 - 30 mmol/L 23 26 Anion Gap 8 - 15 mmol/L 13 9 eGFR >=60 mL/min/1.73m? 47 (L) 90 Calcium, 24 Hr Urine 100.0 - 300.0 mg/24 hr 357.0 (H) Period hr 24 Period 24 Urine Volume 24 hour mL 1,750 Urine Volume 24 hour 1,750 Creatinine 24 hr Ur 1.000 - 2.000 g/24 hr 2.006 (H) Normalized Calcium 1.08 - 1.30 mmol/L 1.44 (H) Ionized Calcium 1.08 - 1.30 mmol/L 1.45 (H) Vitamin D 25 Hydroxy 31.0 - 80.0 ng/mL 32.7 PTH, Intact 15 - 65 pg/mL 106 (H) 16 Vit D1,25 Dihydroxy 19.9 - 79.3 pg/mL 45.7 Intraoperative PTH 15 - 65 pg/mL 73 (H) Intraoperative PTH 405 (H) OSH Labs: 07/18/24 - 24 hour urine Calcim 310.4mg 07/07/24 - Ca 10.5, PTH 91, Vit D 36.6, Cr 1.13 DXA 07/18/24: Bang was seen today for hyperparathyroidism. Diagnoses and all orders for this visit: History of primary hyperparathyroidism -s/p right and left upper parathyroidectomy 11/14/24 -check labs today to monitor (already ordered) -if normal, can have PCP monitor calcium/albumin yearly going forward to screen for recurrence F/u prn The assessment and benefits/risks of the plan were discussed with the patient who expressed understanding and was agreeable to that which is noted above. All documentation from previous visit was copied and pasted, documentation has been reviewed and edited as necessary for today's visit. [1] Social History Tobacco Use Smoking status: Never Passive exposure: Past Smokeless tobacco: Never Substance Use Topics Alcohol use: Not Currently [facility]: [facility]* Diagnosis Onset Date Resolution Status Admit Date Callus of foot acuteAugust 2024 3:09pmCellulitis and abscess of toe of right footacute [place] 2024 3:09pmPeripheral polyneuropathyacuteAugust 2024 3:09pm 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acuteAugust 2024 3:09pmPeripheral neuropathynoneactiveSeptember 2024 5:13pm [facility] Work Phone: 1(424) 133-713408-12-2025 NoteHNO ID: [id number] Author: GENEVA BUTLER MD Service: ? Author Type: Physician Type: Progress Notes Filed: 11/29/2024 13:02 Note Text: [facility] Endocrinology and Metabolism [place] Department of Endocrine Surgery Geneva Butler M.D. [address] [place] [address] Mr. Bang Sharma's postoperative visit was conducted [...] concerns. GENEVA BUTLER M.D. CC: Nathaly Sargent D.O.[facility]08-12-20[facility] History of Present illness Narrative* Geneva Butler MD - 11/29/2024 7:44 AM EDT [facility] Endocrinology and Metabolism [place] Department of Endocrine Surgery Geneva Butler M.D. [address] [place] [address] Mr. Bang Sharma's postoperative visit was conducted [...] CC: Nathaly Sargent D.O. documented in this encounterKettering Health [facility] Center08-01-2025 Telephone encounter Note * Telephone Encounter - [...] to call for questions. Lois Wise RN [facility]08-01-2025 Miscellaneous Notes* Telephone Encounter - Lois Wise, RN - 11/18/2024 2:34 PM EDT Called [...] questions. Lois Wise RN documented in this encounterKettering Health – [facility] Medical Center07-29-2025 NoteHNO ID: [id number] Author: ESTEBAN CAMPA MD Service: General Surgery [...] General Surgery Resident-PGY4 Endocrine Surgery Department Pager: [phone] Grant Medical Center07-28-2025 NoteHNO ID: [id number] Author: TIFFANY WESTBROOK MD Service: Endocrine Surgery [...] in the surgical floor Tiffany Westbrook MD [phone] Fellow / Clinical Associate, Endocrine SurgeryOhiohealth Grant Medical Center07-28-2025 Note HNO ID: [id number] Author: AMANDA HAWKINS APRN.SALES ACCOUNT COORDINATOR Service: ? Author Type: Nurse Administrative Support Assistant Type: Anesthesia Procedure Notes Filed: 11/14/2024 07:46 Note Text: ANESTHESIOLOGY PROCEDURE NOTE Airway General Information Procedure Start Time/Medication Administration: 11/14/2024 7:32 AM Procedure End Time: 11/14/2024 7:32 AM Patient location during procedure: OR Staffing SALES ACCOUNT COORDINATOR: Amanda Hawkins APRN.SALES ACCOUNT COORDINATOR Performed by: LORE Indications and Patient Condition Indications for airway management: anesthesia Preoxygenated: yes anesthesia circuit Method: sleep Difficult Mask: No Final Airway Details Final airway type: endotracheal airway Final Endotracheal Airway: ETT Cuffed: yes Successful intubation technique: video laryngoscopy Devices used: [employer] Endotracheal tube insertion site: oral Blade size: #3 ETT size (mm): 7.5 Measured from: lips Measurement (cm): 23 Placement verified by: capnometry Cormack-Lehane Classification: grade I - full view of glottis Number of attempts at approach: 1 Airway not difficult SIGNATURE: Amanda Chaudhari APRN.CRNA PATIENT NAME: Bang Sharma DATE: November 14, 2024 TIME: 7:46 AM CSN: [id number] History of Present illness Narrative* Jame Donald [...] PATIENT PRESENTS WITH AN IMPLANTABLE OR ATTACHED SOFTWARE DEVELOPER MID LEVEL: No CREATININE: Creatinine Date Value Ref Range [...] 13:50. PATIENT DISCHARGED TO: Ambulatory patient, left ID department area. Is this a therapy: No A Diagnostic radioactive procedure has taken place, with no further precautions necessary other than routine body substance precautions. More information regarding radiation safety can be found usingthis link: [email or web address] 20Diagnostic%20Nuclear%20Medicine%20Procedures.pdf SIGNATURE: JORGE Sierra) PATIENT NAME: Bang Sharma DATE: November 01, 2024 TIME: 11:26 AM PAGER/CONTACT #: documented in this encounterKettering [facility]07-15-2025 NoteHNO ID: [id number] Author: JAME DONALD RT (R) Service: Nuclear [...] PATIENT PRESENTS WITH AN IMPLANTABLE OR ATTACHED SOFTWARE DEVELOPER MID LEVEL: No CREATININE: Creatinine Date Value Ref Range [...] 13:50. PATIENT DISCHARGED TO: Ambulatory patient, left ID department area. Is this a therapy: No A Diagnostic radioactive procedure has taken place, with no further precautions necessary other than routine body substance precautions. More information regarding radiation safety can be found using this link: [email or web address] 20Diagnostic%20Nuclear%20Medicine%20Procedures.pdf SIGNATURE: RT Mariela(R) PATIENT NAME: Bang Sharma DATE: November 01, 2024 TIME: 11:26 AM PAGER/CONTACT #:[facility]07-15-2025 Instructions * Patient Instructions* Luana Boss PA-C - 11/01/2024 9:37 AM EDT Images from the original note were not included. [facility]est[facility] PATIENT PREOPERATIVE INSTRUCTIONS No ref. provider found has scheduled you for your procedure at this surgery center: [facility]: [phone] -- [address] [place] [address]. Please read below carefully for your personalized [...] office. If you are currently using a [id number] injectable or oral medication for diabetes or [...] or other anticoagulants without consulting with your area attendant or prescribing physician. - Stop ALL herbal [...] please check with your dialysis center or load blocker to see if any adjustments need to [...] Procedures: - YOU MUST HAVE A RESPONSIBLE LIGHTING ENGINEERING TECHNICIAN TAKE YOU HOME. A AIR DUCT MECHANIC OR SERGER CANNOT BE MADE A RESPONSIBLE LIGHTING ENGINEERING TECHNICIAN. - We recommend that a responsible person [...] Advance Directive, please fax a copy to [phone] or email to for it to be added to your chart. If you do not have an Advance Directive, you can find the appropriate form and more information at [email or web address]. We recommend that youcomplete the Advance Directive form found on the website and bring it with you the day of your surgery. It can be witnessed and scanned into your chart that day. Lunaa Boss PA-C documented in this encounterKettering [facility]07-15-2025 History and physical note * Luana Boss [...] physical activity. STOP-Bang Score: STOP-Bang Score: (+REMY) [id number] Score: Age: >=75 Sex: male Hypertension history: Yes [id number] Score: ARISCAT Score: Age: 51-80 Preoperative SpO2: [...] is scheduled for procedure on 11/14/2024 at [facility]. REVIEW OF SYSTEMS: General: No weight loss, malaise or fevers. Neurological: No history of TIA's, stroke, ROOM COOLER INSTALLER tumor, impaired sensorium, hemiplegia, paraplegia orquadraplegia. No [...] COVID-19 original vaccine, age 12+ yr, monovalent ([employer]- [employer] - [facility]) 02/04/2021 Imm Admin: COVID-19 original vaccine, age 12+ yr, monovalent ([employer] - PURPLE TOP) Only the first 5 [...] 508 QTC Calculation (Bazett) 490 Calculated P [place] 85 Calculated R [place] -69 Calculated T [place] 33 Impression SINUS BRADYCARDIA LEFT AXIS DEVIATION COMPLETE RIGHT BUNDLE BRANCH BLOCK ABNORMAL ECG No results found for this or any previous visit (from the past 55790 hours). Spirometry Data No data to display Cardiac testing ECHO 12/06/2020: Normal ejection fraction of 60 to 65% with a mildly enlarged left atrium and no other significant valvular abnormalities 11/21/2015 CVL report IMPRESSION: Successful direct-current cardioversion with alevism of sinus rhythm from atrial fibrillation with no immediate complication. 03/22/12: EPS EP study by Dr. Carmen Flores on 03/22/2012 for evaluation of wide-complex tachycardia in the settingof normal ejection fraction revealed normal HV interval but no evidence of any AH jump suggestive of dual AV node physiology and no tachycardia was induced. This was followed up with VEST with [facility] protocol which was negative for inducible [...] Bang Sharma DATE: 11/01/2024 TIME: 9:31 AM [facility]07-15-2025 History and physical note* Luana Boss PA-C - 11/01/2024 9:00 AM EDT Images from the original note were not included. [facility] Pre[facility]Anest[facility]ation [facility] HISTORY [...] physical activity. STOP-Bang Score: STOP-Bang Score: (+REMY) [id number] Score: Age: >=75 Sex: male Hypertension history: Yes [id number] Score: ARISCAT Score: Age: 51-80 Preoperative SpO2: [...] is scheduled for procedure on 11/14/2024 at [facility]. REVIEW OF SYSTEMS: General: No weight loss, malaise or fevers. Neurological: No history of TIA's, stroke, ROOM COOLER INSTALLER tumor, impaired sensorium, hemiplegia, paraplegia orquadraplegia. No [...] Never Prior to Admission medications as of 11/01/24927 Medication Sig Last Dose Taking Aspirin 81 [...] 508 QTC Calculation (Bazett) 490 Calculated P [place] 85 Calculated R [place] -69 Calculated T [place] 33 Impression SINUS BRADYCARDIA LEFT AXIS DEVIATION COMPLETE RIGHT BUNDLE BRANCH BLOCK ABNORMAL ECG No results found for this or any previous visit (from the past 19544 hours). Spirometry Data No data to display Cardiac testing ECHO 12/06/2020: Normal ejection fraction of 60 to 65% with a mildly enlarged left atrium and no other significant valvular abnormalities 11/21/2015 CVL report IMPRESSION: Successful direct-current cardioversion with alevism of sinus rhythm from atrial fibrillation with no immediate complication. 03/22/12: EPS EP study by Dr. Carmen Flores on 03/22/2012 for evaluation of wide-complex tachycardia in the settingof normal ejection fraction revealed normal HV interval but no evidence of any AH jump suggestive of dual AV node physiology and no tachycardia was induced. This was followed up with VEST with [facility] protocol which was negative for inducible [...] 11/01/2024 TIME: 9:31 AM documented in this encounterKettering Health [facility]07-08-2025 NoteUT Electrophysiology Consult Note Reason for visit: [...] is having surgery for his [place] in [place] on November 14. Patient states he had [...] This was followed up with VEST with [facility] protocol which was negative for inducible [...] CVL report IMPRESSION: Successful direct-current cardioversion with alevism of sinus rhythm from atrial fibrillation with no immediate complication. 03/22/12: EPS EP study by Dr. Carmen Flores on 03/22/2012 for evaluation of wide-complex tachycardia in the setting of normal ejection fraction revealed normal HV interval but no evidence of any AH jump suggestive of dual AV node physiology and no tachycardia was induced. This was followed up with VEST with [facility] protocol which was negative for inducible arrhythmias subsequently Isuprel was started and again this was repeated and no evidence of jump or any echo beats and repeat the ventricular stimulation study was negative for any arrhythmias 01/29/12:CATH Impression: 1. Normal coronary angiogram. 2. Mild systemic hypertension. 3. Maria Dolores (more content not included)...[facility] 10-04-2024 Telephone encounter Note* Telephone Encounter - Dora Larkin - 10/04/2024 6:49 PM EDT Are you an Endocrinology Air Conditioning Insulation Installer located at [facility]? Yes Patient Name: Bang Sharma Age: [age] year old Requestor: Dora Larkin Reason for Exam: NM Parathyroid w SPECT/CT Orders needed prior to scheduling: NM PARATHYROID W SPECT/CT [id number] Are all orders above present: Yes When will patient be scheduled: Day 1: of 10/31 No Doses on Thursday Route to Nm Schedulers @ [facility] Scheduling Hyperthyroidism or Nodule (100-300 microCi I-123 [...] of study: 1 - 1 1/2 hours [facility]06-17-2025 Miscellaneous Notes* Telephone Encounter - Dora Larkin - 10/04/2024 6:49 PM EDT Are you an Endocrinology Air Conditioning Insulation Installer located at [facility]? Yes Patient Name: Bang Sharma Age: [age] year old Requestor: Dora Larkin Reason for Exam: NM Parathyroid w SPECT/CT Orders needed prior to scheduling: NM PARATHYROID W SPECT/CT [id number] Are all orders above present: Yes When will patient be scheduled: Day 1: 10/31 No Doses on Thursday Route to Nm Schedulers @ P [facility] Scheduling Hyperthyroidism or Nodule (100-300 microCi I-123 Capsules for Diagnostic Imaging) 24 Hour Uptake and Scan only (Mon - Thurs after 9:00 AM) If I-131 therapy is [...] - 1 1/2 hours documented in this encounterKettering Health [facility] Center05-29-2025 Evaluation note* Diagnosis Onset Date Resolution Status Admit Date Cellulitis of leg without foot, right acuteMay 2024 11:13amHypertensionacuteMay 2024 11:13amPrimary hyperparathyroidismacuteMay 2024 11:13amSwelling of right lower extremity acuteMay 2024 11:13am [facility] Work Phone: 1(191) 113-891805-27-2025 History of Present illness Narrative* Geneva Butler MD - 09/13/2024 12:20 PM EDT [facility] Endocrinology and Metabolism [place] Department of Endocrine Surgery Geneva Butler M.D. [address] [place] [address], [place] [address] Mr. Bang Sharma was seen in the [...] CC: Nathaly Sargent D.O. documented in this encounterKettering Health [facility] So[facility] Center05-27-2025 NoteHNO ID: [id number] Author: GENEVA BUTLER MD Service: ? Author Type: Physician Type: Progress Notes Filed: 09/13/2024 12:00 Note Text: [facility] Endocrinology and Metabolism [place] Department of Endocrine Surgery Geneva Butler M.D. [address] [place] [address] Mr. Bang Sharma was seen in the [...] should you have questions or concerns. GENEVA BUTELR M.D. CC: Herber Donald M.D. Alvin Lo D.O.[facility]05-27-2025 Instructions* Patient Instructions* Arlene Florian MA - 09/13/2024 11:05 AM EDT Thank you for choosing the [facility] Department of Endocrinology, Diabetes and Metabolism. Did you know that you need to call 48 hours in advance of your scheduled visit, if you are unable to make your appointment? The [facility]inology [facility] Metabolism [place] thanks you for your commitment, because patients not showing to their appointment results in a lost opportunity for patients to receive [facility] care at the [facility]. To Cancel an appointment, please choose one of the following: - Call the Appointment Call Center at [phone] - From [employer], Go to Appointments - Cancel Appts If cancelling, consider your need to reschedule to prevent further delays in your care. To Schedule an appointment, please choose one of the following: - Call the Appointment Call Center at [phone] - From [employer], Go to Appointments - Request an Appt documented in this encounterKettering Health [facility]05-13-2025 Evaluation note* Diagnosis Onset Date Resolution Status Admit Date Atrial fibrillation acuteMay 2024 11:31amCellulitis of leg without foot, rightacuteMay 2024 11:31amHypercholesterolemiaacuteMay 2024 11:31amHypertensionacuteMay 2024 11:31amObesityacuteMay 2024 11:31amOSA (obstructive sleep apnea)acuteMay 2024 11:31amPrimary hyperparathyroidismacuteMay 2024 11:31amSwelling of right lower extremityacuteMay 2024 11:31amPneumonia noneactiveMay 2024 11:31amAtrial fibrillationacuteMay 2024 11:13am Cellulitis of leg without foot, rightacuteMay 2024 11:13amHypertension acuteMay 2024 11:13amObesityacuteMay 2024 11:13amPrimary hyperparathyroidismacuteMay 2024 11:13amSwelling of right lower extremity acuteMay 2024 11:13am [facility] Work Phone: 1(818) 607-675605-01-2025 Telephone encounter Note* Telephone Encounter - Herber Donald MD - 08/18/2024 11:39 AM EDT Noted, BMD normal on 07/18/24 DXA, thanks [facility] Work Phone: 1(139) 632-207605-01-2025 Miscellaneous Notes* Telephone Encounter - Herber Donald MD - 08/18/2024 11:39 AM EDT Noted, BMD normal on 07/18/24 DXA, thanks * Telephone Encounter - Marina Mccracken MA - 08/18/2024 10:36 AM EDT Images from the original note were not included. A form has been received from [facility] for DXA Bone Densitometry Report. Sent to Dr Donald for consideration. Sent to Medical Records to be scanned. documented in this encounterKettering Health [facility]05-01-2025 Telephone encounter Note * Telephone Encounter - Marina Mccracken MA - 08/18/2024 10:36 AM EDT Images from the original note were not included. A form has been received from [facility] for DXA Bone Densitometry Report. Sent to Dr Donald for consideration. Sent to Medical Records to be scanned. [facility]04-30-2025 Telephone encounter Note* Telephone Encounter - Edd Sosa - 08/17/2024 3:35 PM EDT 08/17/2024 INTAKE PENDING-[employer] SENT TO CONFIRM APPT. AND COMPLETE INTAKE QUESTIONS-NEED PARTIAL LABS, URINE, DXA, AND MIBI-- CALLED THE LAB TO POSSIBLY ADD ON IONIZED CALCIUM AND VIT D1 25. ENDOCRINE SURGERY PATIENT WORKSHEET Initial Call Date: August 17, 2024 Reason for Consult/ Referral: Hyperparathyroid PATIENT DEMOGRAPHICS Name: Bang Sharma [facility]#: [id number] : 1950 AGE: [age] year old Contact Numbers: Home: (home) Work: There is no work phone number on file. PATIENT PHYSICIAN INFORMATION Referring Doctor: Address: Phone: Pediatrician/Medical Doctor: Address: Phone: PCP: Alvin Lo ([facility]) [address] [place] [address] PAST TREATMENT Office notes: SEE [facility] Medications: NONE THAT APPLY Pre-Visit Testing [...] 65 pg/mL 106 (H) Imaging Reports: SEE [facility] CD of Images: SEE [facility] FNA: no FNA Slides: N/A Has the patient ever had thyroid or parathyroid surgery before: No Operative Reports: NONE AVAILABLE Pathology Reports: NONE AVAILABLE [facility]04-30-2025 Miscellaneous Notes* Telephone Encounter - Edd Sosa - 08/17/2024 3:35 PM EDT 08/17/2024 INTAKE PENDING-[employer] MS[facility] SENT TO CONFIRM APPT. AND COMPLETE INTAKE QUESTIONS-NEED PARTIAL LABS, URINE, DXA, AND MIBI-- CALLED THE LAB TO POSSIBLY ADD ON IONIZED CALCIUM AND VIT D1 25. ENDOCRINE SURGERY PATIENT WORKSHEET Initial Call Date: August 17, 2024 Reason for Consult/ Referral: Hyperparathyroid PATIENT DEMOGRAPHICS Name: Bang Sharma [facility]#: [id number] : 1950 AGE: [age] year old Contact Numbers: Home: (home) Work: There is no work phone number on file. PATIENT PHYSICIAN INFORMATION Referring Doctor: Address: Phone: Pediatrician/Medical Doctor: Address: Phone: PCP: Alvin Lo ([facility]) [address] [place] [address] PAST TREATMENT Office notes: SEE [facility] Medications: NONE THAT APPLY Pre-Visit Testing [...] 65 pg/mL 106 (H) Imaging Reports: SEE [facility] CD of Images: SEE [facility] FNA: no FNA Slides: N/A Has the patient ever had thyroid or parathyroid surgery before: No Operative Reports: NONE AVAILABLE Pathology Reports: NONE AVAILABLE documented in this encounterKettering Health [facility]04-29-2025 Instructions* Patient Instructions* Herber Donald MD - 08/16/2024 3:31 PM EDT Please get blood test today Will check Parathyroid scan Will schedule you with Dr Geneva Butler in endocrine surgery documented in this encounterKettering Health – [facility] Center04-29-2025 NoteHNO ID: [id number] Author: HERBER DONALD MD Service: ? Author [...] get records of recent DXA scan at [facility] - RENAL FUNCTION PANEL; Future - VITAMIN D 25 HYDROXY; Future - PTH INTACT; Future - NM PARATHYROID W SPECT/CT; Future - CONSULT TO ENDOCRINE SURGERY; Future Hypercalcemia - NM PARATHYROID W SPECT/CT; Future F/u 6 months The assessment and benefits/risks of the plan were discussed with the patient who expressed understanding and was agreeable to that which is noted above. [facility]04-29-2025 History of Present illness Narrative* Herber [...] get records of recent DXA scan at [facility] - RENAL FUNCTION PANEL; Future - [...] which is noted above. documented in this encounterKettering [facility]03-21-2025 NoteSUBJECTIVE Reason for Visit: Bang [...] context of the patient's (more content not included)...[facility]02-25-2025 NoteUT Electrophysiology Consult Note Reason for visit: [...] This was followed up with VEST with [facility] protocol which was negative for inducible [...] CVL report IMPRESSION: Successful direct-current cardioversion with alevism of sinus rhythm from atrial fibrillation with no immediate complication. 03/22/12: EPS EP study by Dr. Carmen Flores on 03/22/2012 for evaluation of wide-complex tachycardia in the setting of normal ejection fraction revealed normal HV interval but no evidence of any AH jump suggestive of dual AV node physiology and no tachycardia was induced. This was followed up with VEST with [facility] protocol which was negative for inducible [...] with PACs a (more content not included)... [facility]12-17-2024 History of Present illness Narrative* Amanda Mustafa [...] to clinic: 3 weeks documented in this encounterHannibal Regional [id number] NoteCardiovascular Medicine [facility] SUBJECTIVE Chief Complaint Patient presents with [...] This was followed up with BEST with [facility] protocol which was negative for inducible [...] Coreg [Carvedilol] Diarrhea Meperi (more content not included)...[facility] 03-11-2024 Evaluation note* Diagnosis Onset Date Resolution Status Admit Date Abdominal pain acuteNov2023 11:00amAtrial fibrillationacuteNov2023 11:00amHypercalcemiaacuteNov2023 11:00amHypercholesterolemiaacute March 11, 2024 11:00amHypertensionacuteNov2023 11:00amMedicare annual wellness visit, subsequentacuteMarch 11, 2024 11:00amObesityacute March 11, 2024 11:00amOSA (obstructive sleep apnea)acuteNov2023 11:00amScreening PSA (prostate specific antigen)[facility]At[facility]20[facility] 11:00am [facility] Work Phone: 1(584) 411-887311-06-2024 History of Present illness Narrative* AVI Ruiz - 02/24/2024 1:00 PM EST Images from the original note were not included. Reason for Appointment: EMG Patient: Bang Sharma : 1950 EMG Computer: [employer] Referring Physician: Dr. Amanda Mustafa EMG: BLE hose sprayer: Geoff Joshua RT(R) Office Location: [place] Reason for EMG: c/o numbness/tingling in right foot/ankle. Hx of surgery to right lower leg. No hx of DM. Not on blood thinners. Comments: Procedure was explained to the patient & who expressed understanding. Patient appeared to have tolerated the test well despite some discomfort due to the nature of the test. documented in this encounterHannibal Regional [id number] History of Present illness Narrative* Amanda Mustafa DO - 02/22/2024 10:30 AM EST Images from the original note were not included. Chief Complaint Patient presents with Numbness Peripheral Neuropathy Subjective Bang Sharma, 73 y.o., male being seen in Neurology consultation at the request of Dr. Joya. Dr. Lo is his PCP. HPI Lower extremity numbness - labs @ [facility]; referral received from Dr Reina Joya, DPM [...] helping. Past Medical History: Diagnosis Date Afib (CMS/[facility]) Heart disease HTN (hypertension) ([facility]) Past Surgical History: Procedure Laterality Date [...] to clinic: 3 weeks documented in this encounterHannibal Regional [id number] Evaluation note* Encounter Date Diagnosis Assessment Notes Treatment Notes Treatment Clinical Notes May, Anemia (ICD-10 - D64.9) MTailor Other 09-26-2023 NoteHNO ID: [id number] Author: Keri Lopez RN Service: ? Author Type: Registered Nurse Type: Progress Notes Filed: 01/13/2023 4:19 PM Note Text: I served as a scribe during this office visit encounter. Keri Lopez [facility]09-26-2023 NoteHNO ID: [id number] Author: Haresh Pineda MD Service: ? 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 (CPT 04026 - 22) Placement of Prophylactic Carbon Fiber Tibial Nail, Right Tibia (CPT 90240) High Speed Ehsan and Adjuvant Treatment with 10% H202 (CPT 86544) Neruolysis and Dissection of Deep Peroneal Nerve (CPT 78599) Right Iliac Crest Marrow Aspiration/Alcove ( CPT 35551) Diagnosis: Right Tibial Diaphysis Cartilage Lesion with [...] the date of the service which included [id number] patient care, completing clinical documentation, obtaining and/or [...] information added by medical student, resident, nurse, PRESS SETTER/PAJayC that I have placed my signature directly below I have verified and either instructed them to document in a scribe function or document appropriately in the chart during the patient visit. Haresh Pineda MD carbider, CCLCM at [facility] JacksonMerchandising Execution Associate, Division of Musculoskeletal Oncology Co-Director of Sarcoma Care, [facility] Pager: [phone] (more content not included)...[facility] [id number] History of Present illness Narrative* Haresh Pineda MD - 11/05/2021 5:19 PM EDT This note was created using textPlus. AAOS AMB SF ORT MST FU Advanced: Did this patient have an adverse event since their last encounter?: No * Haresh Pineda MD - 11/05/2021 4:07 PM EDT Orthopaedic Surgery Follow-Up Clinic Note Surgery/Date: 08/27/2017 1. 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 Placement of Prophylactic Carbon Fiber Tibial Nail, Right Tibia (CPT 64468) 3. High Speed [place] and Adjuvant Treatment with 10% H202 (CPT 84274) 4. Neruolysis and Dissection of Deep Peroneal Nerve (CPT 21874) 5. 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 Exam: RLE -- largely unchanged compared [...] the date of the service which included yaic-pi-zdyk patient care, completing clinical documentation, obtaining and/or reviewing separately obtained history, performing a medically appropriate examination, counseling and educating the patient/family/caregiver, ordering medications, tests, or procedures, independently interpreting results (not separately reported) and communicating results to the patient/family/caregiver. Any information added by medical student, resident, nurse, PRESS SETTER/DEVAN that I have placed my signature directly below I have verified and either instructed them to document in a scribe function or document appropriately in the chart during the patient visit. Haresh Pineda MD carbider, [facility] at [facility] Jackson[facility]andising Execution Associate, Division of Musculoskeletal Oncology Co-Director of [facility] Care, [facility] Pager: [phone] November 05, 2021 5:18 PM documented [facility] History of Present illness Narrative* JORGE Coyne) [...] 05, 2021 2:49 PM documented in this encounter[facility] NotePROCEDURE: XR FOREARM LT 2 [...] by: TIFFANY GUPTA Date: 2021-10-10 12:28[facility] note* 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, site unspecified documented in this encounter [facility] note* 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, site unspecified documented in this encounter [facility] note* 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, site unspecified documented in this encounter [facility] note* Diagnosis Chronic pain of left ankle- Primary documented in this encounter [facility] noteNo [facility] [employer] Other Evaluation note* Diagnosis Onset Date Resolution Status Anemia acuteAtrial fibrillationacuteHypercholesterolemiaacuteHypertensionacuteObesity acuteOSA (obstructive sleep apnea)[facility] Work Phone: Evaluation note* Diagnosis Idiopathic peripheral neuropathy- Primary Unspecified hereditary and idiopathic peripheral neuropathy 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 Weakness Other malaise and fatigue Numbness and tingling Disturbance of skin sensation documented in this encounter [facility] HealthcareEvaluation note* Diagnosis Idiopathic peripheral neuropathy Unspecified hereditary and idiopathic peripheral neuropathy documented in this encounter [facility] HealthcareEvaluation note* Diagnosis Idiopathic peripheral neuropathy- Primary Unspecified hereditary and idiopathic peripheral neuropathy Numbness and tingling Disturbance of skin sensation 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 Weakness Other malaise and fatigue documented in this encounter [facility] HealthcareEvaluation note* Diagnosis Pre-operative examination- Primary Preoperative examination, [...] Primary hyperparathyroidism Hypercalcemia [facility] Diagnosis Pre-operative examination- [...] Primary Hyperparathyroidism, unspecified [facility]* Diagnosis Onset Date Resolution Status Admit Date Atrial fibrillation acuteMay 2024 11:31amCellulitis of leg without foot, rightacuteMay 2024 11:31amHypercholesterolemiaacuteMay 2024 11:31amHypertensionacuteMay 2024 11:31amObesityacuteMay 2024 11:31amOSA (obstructive sleep apnea)acuteMay 2024 11:31amPrimary hyperparathyroidismacuteMay 2024 11:31amPneumonianoneactiveMay 2024 11:31am [facility] Work Phone: Evaluation note* Diagnosis Pre-operative examination- [...] (HCC) Hyperparathyroidism, unspecified [facility] Diagnosis Pre-operative examination- Primary [...] (HCC) Hyperparathyroidism, unspecified [facility] Diagnosis Pre-operative examination- [...] (HCC) Hyperparathyroidism, unspecified [facility]* Diagnosis Pre-operative examination- Primary [...] right tibial 08/2017 documented [facility] Diagnosis Pre-operative examination- Primary [...] Primary Hyperparathyroidism, unspecified documented in this encounter [facility] general Narrative - Reported* Type Description Date Medical History History of deep vein thrombosis Medical HistoryAdrenal massMedical HistoryBenign prostatic hyperplasia with lower urinary tract symptomsMedical HistoryMalignant neoplasm of long bones of unspecified lower limbMedical HistoryArthritis of left shoulder regionMedical HistoryLumbar spondylosisMedical HistoryHyperlipidemia type IISurgical History Trigger Finger [id number] FgkuycgLiryrycvdye3012Insltixp [id number] Surgical HistoryCardiac Hrweptnn1490Vfsjomtk HistoryRemoval FB Right Ihsp1987 Surgical HistoryResected Bone Right Tibia w/ laura vtarbysit8019Ripmeunjcuawmmn Historysee surgical hx [place] [employer] Other Reason for referral (narrative)* Diagnostic Procedure Only (Routine) - Pending ReviewSpecialtyDiagnoses / ProceduresReferred By ContactReferred To ContactXR IMAGING Diagnoses Chondrosarcoma (HCC) Procedures XR TIBIA FIBULA 2V AP/LAT RIGHT RADIOLOGIC EXAMINATION TIBIA & FIBULA 2 VIEWS Haresh Pineda MD [address] [place] [address] Xr Imaging Referral IDStatusReasonStart DateExpiration DateVisits RequestedVisits [id number] Review Auto-Generated Referral / [facility] for referral (narrative)* Diagnostic Procedure Only (Routine) - Pending ReviewSpecialtyDiagnoses / ProceduresReferred By Contact Referred To ContactXR IMAGING Diagnoses Chondrosarcoma (HCC) Procedures XR TIBIA FIBULA 2V AP/LAT RIGHT RADIOLOGIC EXAMINATION TIBIA & FIBULA 2 VIEWS Haresh Pineda MD [address] [place] [address] Xr Imaging Referral IDStatusReasonStart DateExpiration DateVisits RequestedVisits [id number] Review Auto-Generated Referral 7 [facility] for referral (narrative)* Diagnostic Procedure Only (Routine) - AuthorizedSpecialtyDiagnoses / ProceduresReferred By Contact Referred To ContactXR IMAGING Diagnoses Chronic pain of left ankle Procedures XR ANKLE GENERAL 3V AP/LAT/OBL LEFT RADEX ANKLE COMPLETE MINIMUM 3 VIEWS Valeri Quintero PA-C [address] [place] [address] Xr Imaging [place] [address] Referral IDStatusResaint [facility] centerSttroy DateExpiration DateVisits RequestedVisits [id number] Auto-Generated Referral [facility] for referral (narrative)No reason for referral information [facility]Tr[facility] Work Phone: [facility] Narrative* Diagnostic Procedure Only (Routine) - ClosedSpecialtyDiagnoses / ProceduresReferred By ContactReferred To ContactMOLECULAR & FUNCTIONAL IMAGING Diagnoses Hyperparathyroidism (HCC) Procedures NM PARATHYROID W SPECT/CT PARATHYROID IMAGING W/TOMOGRAPHIC SPECT & CT Geneva Butler MD [address] [place] [address] Phone: tel: fax: [facility] [address] [place] [address] Phone: tel: Referral IDStatusReasonStart DateExpiration DateVisits RequestedVisits [id number] Auto-Generated Referral [facility] Summary Purpose Family History No Family History Records Found Relationship Condition Age at Onset Recorded Date/T kayley father Malignant neoplasm Unknown DeceasedUnknownmotherHypertensionUnknownDiabetes mellitusUnknown Advance Directives No Advanced Directives Records FoundDocuments on File TypeDate RecordedPatient RepresentativeExplanationAdvance Directive(s)Advance Directive(s)09/02/2018 11:24 AMAdvance Directive(s)08/26/2018 2:02 PMAdvance Directive(s)08/24/2017 2:28 PMTypeDate RecordedPatient RepresentativeExplanation Advance Directive(s)Advance Directive(s)09/02/2018 11:24 AMAdvance Directive(s) 08/26/2018 2:02 PMAdvance Directive(s)08/24/2017 2:28 PMTypeDate RecordedPatient RepresentativeExplanationAdvance Directive(s)08/24/2017 2:28 PM Advance Directive Response Recorded Date/ Time Advance Directives No August 31 9:44am Advance Directive Response Recorded Date/ Time Advance Directives No August 31 8:44am TypeDate RecordedPatient RepresentativeExplanationAdvance Directive(s)08/24/2017 2:28 PM Chief Complaint and Reason for [...] Date Amb Documentation August 25, 2024 11:47a m hospital follow up August 30, 2024 11:31 [...] Date Amb Documentation August 25, 2024 11:47a m hospital follow up August 30, 2024 11:31 [...] Amb Documentation December 05, 2024 10 :56am [facility] ER cellulitis December 13, 2024 3: 09pm Reason for Visit Admit Date Cellulitis of leg without foot, right Ma y 2024 11:13am Hypertension September 15, 2024 11:13 am Primary hyperparathyroidism September 15 11:13am Swelling of right lower extremity September 152024 11:13am Chief Complaint Admit Date Amb Documentation December 05, 2024 10 :56am [facility] ER cellulitis December 13, 2024 3: 09pm [...] 11/10/2017 [facility] DATE CREATED AUTHOR AUTHOR'S ORGANIZ ATION 06/26/2022 [facility] DATE CREATED AUTHOR AUTHOR'S ORGANIZ ATION 01/21/2023 [facility] DATE CREATED AUTHOR AUTHOR'S ORGANIZ ATION 07/06/2024 [facility] DATE CREATED AUTHOR AUTHOR'S ORGANIZ ATION 11/18/2024 [facility] DATE CREATED AUTHOR AUTHOR'S ORGANIZ ATION 02/06/2025 [facility] DATE CREATED AUTHOR AUTHOR'S ORGANIZ ATION 03/02/2025 [facility] Source Comments (unrecognize d section and content) In the event this informatio n is protected by the Federal Confidentiality of Alcohol and Drug Abuse Patient Records regulations: The Federal rules restrict any use of the information to criminally investigate or prosecute any alcohol or drug abuse patient.[facility] CenterIn the event this information is protected by the Federal Confidentiality of Alcohol and Drug Abuse Patient Records regulations: The Federal rules restrict any use of the information to criminally investigate or prosecute any alcohol or drug abuse patient.[facility] CenterIn the event this information is protected by the Federal Confidentiality of Alcohol and Drug Abuse Patient Records regulations: The Federal rules restrict any use of the information to criminally investigate or prosecute any alcohol or drug abuse patient.[facility] CenterIn the event this information is protected by the Federal Confidentiality of Alcohol and Drug Abuse Patient Records regulations: The Federal rules restrict any use of the information to criminally investigate or prosecute any alcohol or drug abuse patient.[facility] CenterIn the event this information is protected by the Federal Confidentiality of Alcohol and Drug Abuse Patient Records regulations: The Federal rules restrict any use of the information to criminally investigate or prosecute any alcohol or drug abuse patient.[facility] CenterIn the event this information is protected by the Federal Confidentiality of Alcohol and Drug Abuse Patient Records regulations: The Federal rules restrict any use of the information to criminally investigate or prosecute any alcohol or drug abuse patient.[facility] CenterIn the event this information is protected by the Federal Confidentiality of Alcohol and Drug Abuse Patient Records regulations: The Federal rules restrict any use of the information to criminally investigate or prosecute any alcohol or drug abuse patient.[facility] CenterIn the event this information is protected by the Federal Confidentiality of Alcohol and Drug Abuse Patient Records regulations: The Federal rules restrict any use of the information to criminally investigate or prosecute any alcohol or drug abuse patient.[facility] CenterIn the event this information is protected by the Federal Confidentiality of Alcohol and Drug Abuse Patient Records regulations: The Federal rules restrict any use of the information to criminally investigate or prosecute any alcohol or drug abuse patient.[facility] CenterIn the event this information is protected by the Federal Confidentiality of Alcohol and Drug Abuse Patient Records regulations: The Federal rules restrict any use of the information to criminally investigate or prosecute any alcohol or drug abuse patient.[facility] CenterIn the event this information is protected by the Federal Confidentiality of Alcohol and Drug Abuse Patient Records regulations: The Federal rules restrict any use of the information to criminally investigate or prosecute any alcohol or drug abuse patient.[facility] CenterIn the event this information is protected by the Federal Confidentiality of Alcohol and Drug Abuse Patient Records regulations: The Federal rules restrict any use of the information to criminally investigate or prosecute any alcohol or drug abuse patient.[facility] CenterIn the event this information is protected by the Federal Confidentiality of Alcohol and Drug Abuse Patient Records regulations: The Federal rules restrict any use of the information to criminally investigate or prosecute any alcohol or drug abuse patient.[facility] CenterIn the event this information is protected by the Federal Confidentiality of Alcohol and Drug Abuse Patient Records regulations: The Federal rules restrict any use of the information to criminally investigate or prosecute any alcohol or drug abuse patient.[facility] CenterIn the event this information is protected by the Federal Confidentiality of Alcohol and Drug Abuse Patient Records regulations: The Federal rules restrict any use of the information to criminally investigate or prosecute any alcohol or drug abuse patient.[facility] CenterIn the event this information is protected by the Federal Confidentiality of Alcohol and Drug Abuse Patient Records regulations: The Federal rules restrict any use of the information to criminally investigate or prosecute any alcohol or drug abuse patient.[facility] Reason for Visit (unrecogniz ed section and content) ReasonCommentsFollow UpReasonCommentsRadio Gen M23TlvikpIspuvpdxYtgktizo Peripheral NeuropathySpecialtyDiagnoses / ProceduresReferred By ContactReferred To ContactNeurology Diagnoses Anesthesia of skin Procedures [place] OFFICE/OUTPATIENT [facility] 30 MINUTES Reina Joya MD [address] [place] [address] [place] [address] Phone: tel: fax: Emmett Pineda DO [address] [place] [address] Phone: tel: fax: Referral IDStatusReasonStart DateExpiration DateVisits RequestedVisits [id number] Consult and Treat /[id number] NeuropathyReasonCommentsThyroid ProblemReasonCommentsConsultFACE SHEETReasonCommentsResultsMiddletown Hospital - DXA scanReasonCommentsAppointmentLeft a messge that appointment with scheduled for today(08/23) was rescheduled to 09/13 at 12:20 PM due to patient not feeling well. Sent My chart messageReasonCommentsConsultThyroid Problem HyperparathyroidismReasonCommentsNM Parathyroid RequestReasonCommentsRadiology NMSpecialtyDiagnoses / ProceduresReferred By ContactReferred To ContactMOLECULAR & FUNCTIONAL IMAGING Diagnoses Hyperparathyroidism (HCC) Procedures NM PARATHYROID W SPECT/CT PARATHYROID IMAGING W/TOMOGRAPHIC SPECT & CT Geneva Butler MD [address] [place] [address] Phone: tel: fax: [facility] [address] [place] [address] Phone: tel: Referral IDStatusReasonStart DateExpiration DateVisits RequestedVisits [id number] Auto-Generated Referral /[id number] OpReasonCommentsPost-Op Visit Care Teams (unrecognized sec tion and content) Team Status: Active Member Role Status Dates Alvin Lo DO Primary Care Provider Active Team Status: Active Member Role Status Dates Alvin Lo DO Primary Care Provider Active Start: November 01, 2024 Geneva Butler , MDAttending ProviderActiveStart: November 01, 2024 Team Status: Active Member Role Status Dates Alvin Lo DO Primary Care Provider Active Start: November 15, 2024 Outside ProviderAttending ProviderActiveStart: November 15, 2024 Team Status: Active Member Role Status Dates Alvin Lo DO Primary Care Provider Active Start: November 22, 2024 Alvin Lo DOAttending ProviderActiveStart: November 22, 2024 Team Status: Active Member Role Status Dates Alvin Lo DO Primary Care Provider Active Start: December 03, 2024 Foreign Torres , DOAttending ProviderActiveStart: December 03, 2024 Team Status: Active Member Role Status Dates Alvin Lo DO Primary Care Provider Active Start: December 05, 2024 Kathy Nguyen CMAAttending ProviderActiveStart: December 05, 2024 Team Status: Inactive Member Role Status Dates Alvin Lo DO Primary Care Provider Active Start: December 13, 2024 End: December 13socorro Lo DOAttending ProviderActiveStart: December 13, 2024 End: December 13, 2024 Team Status: Inactive Member Role Status Dates Alvin Lo DO Primary Care Provider Active Start: January 03, 2025 End: January 03, 2025Amanda Mustafa DOAttending ProviderActiveStart: January 03, 2025 End: January 03, 2025 Team Status: Inactive Member Role Status Dates Alvin Lo DO Primary Care Provider Active Start: September 15, 2024 End: September 15socorro Lo DOAttending ProviderActiveStart: September 15, 2024 End: September 15, 2024Team MemberRelationshipSpecialtyStart DateEnd Date Alvin Lo, DO [address] [place] [address] PCP - GeneralInternal Medicine06/19/17Team MemberRelationshipSpecialtyStart Date End Date Alvin Lo DO [address] [place] [address] PCP - GeneralInternal Medicine06/19/17Team MemberRelationshipSpecialtyStart Date End Date Alvin Lo DO [address] [place] [address] PCP - GeneralInternal Medicine06/19/17 Team Status: Active Member Role Status Dates Alvin Lo DO Primary Care Provide r, Attending Provider Active Start: December 01, 2023 Team Status: Inactive Member Role Status Dates Alvin Lo DO Primary Care Provide r, Attending Provider Active Start: December 03, 2023 End: December 03, 2023Team MemberRelationshipSpecialtyStart DateEnd Date Alvin Lo MD [address] [place] [facility] [place] [phone] PCP - GeneralInternal Qdlxoiiu35/11/23Team MemberRelationshipSpecialtyStart Date End Date Alvin Lo MD [address] [place] [facility] [place] [phone] PCP - GeneralInternal Aponuxjo75/11/23 Bhavik Justin, PhD [address] [place] [phone] Referring WarbzowjvQjvkcmntwxqydbn28/4/24Team MemberRelationshipSpecialtyStart DateEnd Date Alvin Lo MD [address] [place] [facility] [place] [phone] PCP - GeneralInternal Fnnuwlpm32/11/23 Bhavik Justin, PhD [address] [place] [phone] Referring PtkgtkjseRwaedmpkrjdtgxo41/4/24Team MemberRelationshipSpecialtyStart DateEnd Date Alvin Lo MD [address] [place] [facility] [place] [phone] PCP - GeneralInternal Esardrkk58/11/23 Amanda Justins, PhD [address] [place] [phone] Referring OnjevbiiuLfugcrfpgjzzlcz99/4/24 Amanda Mustafa DO [address] [place] [address] Referring OzokpwfmeNtukqbkgp97/17/24Team MemberRelationshipSpecialtyStart Date End Date Alvin Lo MD [address] [place] [phone] PCP - GeneralInternal Encozlhj40/11/23 Bhavik Justin, PhD [address] [place] [phone] Referring WvdflqkceGsxasjlsysmiywt04/4/24 Amanda Mustafa DO [address] [place] [address] Referring ExktddqznTpkmllayk28/17/24Team MemberRelationshipSpecialtyStart Date End Date Alvin Lo MD [address] [facility] [place] [phone] PCP - GeneralInternal Rxdjwabm85/11/23 Bhavik Justin, PhD [address] [place] [phone] Referring HbprqceidWmckhkvroraexeo14/4/24 Amanda Mustafa DO [address] [place] [address] Referring TzfewvekaYdrkgqoih74/17/24 Team Status: Active Member Role Status Dates [...] Start: April 27, 2024 End: April 27, 2024Team MemberRelationshipSpecialtyStart DateEnd Date Alvin Lo DO [address] [place] [address] PCP - GeneralInternal Medicine06/19/17Team MemberRelationshipSpecialtyStart Date End Date Alvin Lo, DO [address] [place] [address] PCP - GeneralInternal Medicine06/19/17Team MemberRelationshipSpecialtyStart Date End Date Alvin Lo Juanjose DO [address] [place] [address] PCP - GeneralInternal Medicine06/19/17Team MemberRelationshipSpecialtyStart Date End Date TerseitaAlvin DO [address] [place] [address] PCP - GeneralInternal Medicine06/19/17 Team Status: Active Member Role Status Dates Alvin Lo DO Primary Care Provide r, Attending Provider Active Start: July 07, 2024 Team Status: Active Member Role Status Dates Alvin Lo DO Primary Care Provide r, Attending Provider Active Start: July 18, 2024 Team Status: Active Member Role Status Dates Alvin Lo DO Primary Care Provider Active Start: August 16, 2024 Josephine Joe ProviderActiveStart: August 16, 2024 Team Status: Active Member Role Status Dates Alvin Lo DO Primary Care Provider Active Start: August 23, 2024 Josephine Wick ProviderActiveStart: August 23, 2024 Team Status: Active Member Role Status Dates Alvin Lo DO Primary Care Provider Active Start: August 24, 2024 Pendletonrocky Cuenca JCttending ProviderActiveStart: August 24, 2024 Team Status: Active Member Role Status Dates Alvin Lo DO Primary Care Provider Active Start: August 25, 2024 Pendletonrocky Cuenca JCttending ProviderActiveStart: August 25, 2024 Team Status: Active Member Role Status Dates Alvin Lo DO Primary Care Provider Active Start: August 25, 2024 Kathy Nguyen CMAAttherbert ProviderActiveStart: August 25, 2024 Team Status: Inactive Member Role Status Dates Alvin Lo DO Primary Care Provide r, Attending Provider Active Start: August 30, 2024 End: August 30, 2024Team MemberRelationshipSpecialtyStart DateEnd Date Alvin Lo DO [address] [place] [phone] [facility]06/19/17 Team Status: Inactive Member Role Status Dates Alvin Lo DO Primary Care Provide r, Attending Provider Active Start: September 15, 2024 End: September 15, 2024Team MemberRelationshipSpecialtyStart DateEnd Date Alvin Lo DO [address] [place] [phone] [facility]06/19/17Team MemberRelationshipSpecialtyStart Date End Date Alvin Lo DO [address] [place] [phone] P[facility]06/19/17Team MemberRelationshipSpecialtyStart Date End Date Alvin Lo DO [address] [place] [phone] [facility] - [facility]06/19/17Team MemberRelationshipSpecialtyStart Date End Date Alvin Lo DO [address] [facility] [place] [address] PCP - GeneralInternal Medicine06/19/17Team MemberRelationshipSpecialtyStart Date End Date Alvin Lo DO [address] [facility] [place] [address] PCP - GeneralInternal [facility]06/19/17Te MemberRelationshipSpecialtyStart Date End Date Alvin Lo DO [address] [facility] [place] [address] PCP - [facility]06/19/17Te MemberRelationshipSpecialtyStart Date End Date Alvin Lo DO [address] [facility] [place] [address] PCP - [facility]06/19/17 Goals (unrecognized section and content) Goals may [...] BE BASED ON THE PRIMARY CLINICAL RECORDS. [facility] [employer] [facility]. provides no warranty or guarantee of the accuracy or completeness of information in this document.
--- OUTSIDE RECORDS SUMMARY | 2025-03-17 09:50 | XMS_ITS | Encounter Summary ---
Author Organization [facility] Address [address], [address] [place] [address] Care Team Providers Care Sand Drier Name Role Phone Alvin Contreras DO Primary Care Provider [phone] Encounter Details DateTypeDepartmentCare Team (Latest Contact Info)Pgwjgwpuhbb33/26/2025bstract [facility] Pulmonology [address] [place] [address] [place] [address] [place] [address] Social History Tobacco UseTypesPacks/DayYears UsedDateSmoking Tobacco: NeverSmokeless Tobacco: NeverAlcohol UseStandard Drinks/WeekCommentsNot Currently0 (1 standard drink = 0.6 oz pure alcohol)Sex and Gender InformationValueDate RecordedSex Assigned at TcothCmhb15/25/2025 10:58 AM ESTLegal PmmBtjb7906/02/2012 1:08 AM ESTGender UxlgtjfgEygk48/25/2025 10:58 AM ESTSexual ZbyhotpyyxaFegokqxb63/25/2025 10:58 AM ESTdocumented as of this encounter Plan of Treatment DateTypeDepartmentCare Team (Latest Contact Info)Ddndaztuojj95/10/2026 1:00 PM ESTOffice Visit [facility] [address] [place] [address] 6 [place] [address] [facility] Davin, [address] [address] 1 YR F/U OSAdocumented as of this encounter Visit Diagnoses Not on filedocumented in this encounter Additional Health Concerns AssessmentNoted TimeA fall risk assessment has been completed for the patient 03/14/2025 11:13 AM ESTdocumented as of this encounter Care Teams Team MemberRelationshipSpecialtyStart DateEnd Date Alvin Contreras DO [address] [place] [address] PCP - GeneralInternal Eiebdlcw00/21/25documented as of this encounter
--- OUTSIDE RECORDS SUMMARY | 2025-03-17 09:50 | XMS_ITS | Clinical Summary ---
Author Organization [employer] [facility] tem Address [id number] [address] [place] [address] Care Team Providers Care Carpentry Specialist Name Role Phone BenAlvin Primary Care Provider [phone] Allergies Active AllergyReactionsCriticalityNoted HvlnJpkdndydDghfmbiljd21/23/2018 CpdvmkiegocSpvuz60/23/2018 Medications MedicationSigDispense QuantityRefillsLast FilledStart DateEnd DateStatus rivaroxaban (XARELTO) 20 mg tablet tablet Take 20 mg by mouth Daily at 0600.Active verapamil SR (CALAN-SR) 120 mg CR tablet Take 120 mg by mouth nightly.Active amiodarone (PACERONE) 100 mg tablet Take 200 mg by mouth daily. 100 mg every other dayActive losartan-hydroCHLOROthiazide (HYZAAR) 100-25 mg per tablet Take 1 tablet by mouth daily.03/20/2017Active Active Problems Patient Care Coordination No te Formatting of this note migh t be different from the original. ECHO 60% 11/04, 55% 10/04 ProblemNoted DateDiagnosed KgttLlubcnlnlhkdlo09/23/2018Essential hypertension 12/10/2017Primary ijijguzehlupnv69/23/2018Paroxysmal supraventricular umchifklmcy11/23/2018Paroxysmal ventricular xfdickewdnj48/23/2018Atrial ywirrevhweyk32/23/7414Pdynjiwiwtd13/23/1043Rejjopr35/23/2018Chest pain12/10/2017 Family History Medical HistoryRelationNameCommentsCoronary artery diseaseOtherHypertensionOther RelationNameStatusCommentsOther Social History Tobacco UseTypesPacks/DayYears UsedDateSmoking Tobacco: NeverSmokeless Tobacco: NeverAlcohol UseStandard Drinks/WeekCommentsNo0 (1 standard drink = 0.6 oz pure alcohol)ChildcareAnswerDate LnduxacnZmomybjliIxjzsyb36/12/2019EmploymentAnswer Date BmcnbnyrFmangqghjwSdobexa05/12/2019Purpose - LifeAnswerDate RecordedPurpose and direction in wvqrJztigkn04/11/2021ex and Gender InformationValueDate RecordedSex Assigned at BirthNot on fileLegal RhtVvnh6611/23/2014 11:56 AM EDT Gender IdentityNot on fileSexual OrientationNot on file Last Filed Vital Signs Vital SignReadingTime TakenCommentsBlood Lxddxnai234/63771 2:23 PM EDT Ozppg875512/15/2017 2:23 PM EDTTemperature--Respiratory Rate--Oxygen Saturation-- Inhaled Oxygen Concentration--Rrfevh445.5 kg (292 lb)12/15/2017 2:23 PM EDT Htzgzn165.5 cm (6' 3 )12/15/2017 2:23 PM EDTBody Mass Index36.508 2:23 PM EDT Plan of Treatment Health MaintenanceDue DateLast DoneCommentsDepression Oarpgkreg84/01/1962Tobacco Mhdvcmoli49/01/1962DTaP,Tdap and Td Vaccines (1 - Tdap)1968Zoster (Shingles) Vaccine (1 of 2)09/19/1999Fall Risk Vlujgwjge79/01/2015RSV ( or age 60+ yrs) (1 - 1-dose 75+ series)2024Influenza Lbdpqvn4412/19/2024 Medical Devices Not on file Insurance [employer] [id number] Care Teams Team MemberRelationshipSpecialtyStart DateEnd Date Alvin Contreras DO [address] [place], [place] [id number] [facility]12/15/17
--- OUTSIDE RECORDS SUMMARY | 2025-03-17 09:50 | XMS_ITS | Clinical Summary ---
Author Organization [facility] Address [address] [place] [address] Care Team Providers Care Human Resources Compensation Analyst Name Role Phone Bhavik Justin MD Unavailable [phone] Nanda Mustafa DO Unavailable [phone] Alvin Contreras DO Primary Care Provider [phone] Allergies Active AllergyReactionsCriticalityNoted NfymExdqqayaHrgodhcved65/23/2018 PenicillinsHives,Rash,SuomgKpptga34/19/2014 Medications MedicationSigDispense QuantityRefillsLast FilledStart DateEnd DateStatus flecainide (Tambocor) 100 MG tablet Take 50 mg by mouth in the morning and 50 mg before bedtime.10/08/2023ctive amLODIPine (Norvasc) 10 MG tablet Take 10 mg by mouth in the morning.09/01/2023ctive losartan-hydroCHLOROthiazide (Hyzaar) 100-25 MG tablet Take 1 tablet by mouth Daily09/01/2023ctive magnesium citrate solution Take by mouthActive POTASSIUM GLUCONATE PO Take by mouthActive Coenzyme Q10 100 MG tablet Take 100 mg by mouth DailyActive ascorbic acid (Vitamin C) 1000 MG tablet Take 1,000 mg by mouth DailyActive Family History Medical HistoryRelationNameCommentsCancerFatherDiabetesMotherHeart diseaseMother HypertensionMotherKidney diseaseMotherRelationNameStatusCommentsFatherMother Social History Tobacco UseTypesPacks/DayYears UsedDateSmoking Tobacco: FormerCigarettes Smokeless Tobacco: Never Tobacco Cessation:Counseling Given: Not Answered Alcohol UseStandard Drinks/WeekCommentsNever0 (1 standard drink = 0.6 oz pure alcohol)Sex and Gender InformationValueDate RecordedSex Assigned at BirthNot on fileLegal DvjUiqk5107/02/2022 7:33 PM EDTGender IdentityNot on fileSexual OrientationNot on file Last Filed Vital Signs Vital SignReadingTime TakenCommentsBlood Efklaovi927/76007/04/2024 4:00 PM EDT Tmnzh7318 4:00 PM EDTTemperature--Respiratory Rate--Oxygen Ckaamqdkyu13% 07/04/2024 4:00 PM EDTInhaled Oxygen Concentration--Dpoonv476 kg (266 lb) 07/04/2024 4:00 PM JQMLozsxs229.2 cm (6' 2.5 )07/04/2024 4:00 PM EDTBody Mass Index33.7007/04/2024 4:00 PM EDT Plan of Treatment [place] [address] [employer] [place] [phone] Care Teams Team MemberRelationshipSpecialtyStart DateEnd Date Alvin Contreras DO [address] [place] [address] PCP - GeneralInternal Medicine09/19/24 Bhavik Justin MD [address] [address] Referring ConhthonlVozzmfbutygthdu85/4/24 Nanda Mustafa DO [address] [place] [address] Referring TvrokjvwxOgkkjcrpo03/17/24
--- OUTSIDE RECORDS SUMMARY | 2025-03-17 09:50 | XMS_ITS | Encounter Summary ---
Author Organization [facility] Address [address] [facility], [address] [place] [address] Care Team Providers Care Security Checker Name Role Phone Alvin Contreras DO Primary Care Provider [phone] Encounter Details DateTypeDepartmentCare Team (Latest Contact Info)Idiudhhvogr10/25/2025bstract [facility] Pulmonology [address] [place] [address] [address] Social History Tobacco UseTypesPacks/DayYears UsedDateSmoking Tobacco: NeverSmokeless Tobacco: NeverAlcohol UseStandard Drinks/WeekCommentsNot Currently0 (1 standard drink = 0.6 oz pure alcohol)Sex and Gender InformationValueDate RecordedSex Assigned at NdqdzDpjg53/25/2025 10:58 AM ESTLegal HcnGdud5706/02/2012 1:08 AM ESTGender RryrhizzBzou10/25/2025 10:58 AM ESTSexual AqfqjtdcnwdTffiiayh49/25/2025 10:58 AM ESTdocumented as of this encounter Plan of Treatment DateTypeDepartmentCare Team (Latest Contact Info)Fizpkmmkipi52/10/2026 1:00 PM ESTOffice Visit [facility] [address] [place] [address] [place] [address] 1 YR F/U OSAdocumented as of this encounter Visit Diagnoses Not on filedocumented in this encounter Additional Health Concerns AssessmentNoted TimeA fall risk assessment has been completed for the patient 03/14/2025 11:13 AM ESTdocumented as of this encounter Care Teams Team MemberRelationshipSpecialtyStart DateEnd Date Alvin Contreras DO [address] [place] [address] PCP - GeneralInternal Dbipswhg54/21/25documented as of this encounter
--- OUTSIDE RECORDS SUMMARY | 2025-03-17 09:50 | XMS_ITS | Patient Health Record ---
Author Organization [facility] [place] Address [address] [place] [address] Care Team Providers Care Restaurant Bartender Name Role Phone Alvin Contreras DO Primary Care Provider Gomez Jaquez Unavailable [phone] Davin Reyes Unavailable [phone] Allergies No Known Allergies Reason For Referral No Information Medications Medication SIG (Take, Route, Frequency, Duration) Notes Start Date End Date Status dexAMETHasone Sod Phos (PF) 10 MG/ML as directed Injection; Duration: 30 days 02/10/2024Not-TakingamLODIPine Besylate 10 MGOral; Duration: 90 DaysActive Meloxicam 15 MGTAKE 1 TABLET BY MOUTH EVERY DAY FOR 30 DAYS; Duration: 30Active dexAMETHasone Sod Phos (PF) 10 MG/MLas directed Injection; Duration: 30 days 02/10/2024Not-TakingdexAMETHasone Sod Phos (PF) 10 MG/MLas directed Injection 1; Duration: 30 days02/10/2024Not-TakingFlecainide Acetate 100 MGOral; Duration: 90 DaysActivedexAMETHasone Sodium Phosphate 4 MG/ML1.5ml-2.5ml topically up to 3 times weekly at physical therapy; Duration: 30 days12/30/2023Not-TakingLosartan Potassium-HCTZ 100-25 MGOral; Duration: 90 DaysActiveMulti Complete -as directed OrallyActiveBaclofen 10 MGTAKE 1 TABLET BY MOUTH AT BEDTIME EVERY NIGHT Oral; Duration: 90 DaysUnknown Immunizations Vaccine Route Administration Date Status Comme nts Arexvy Unknown 03/03/2023 Administered Flu, Fluad (63720) 65 yrs+, single-dose syringe (2975-6320)Xmmmiac3612/16/2022 AdministeredPneumococcal (Pneumovax 23)Mpjdjuh8401/18/20151445SmcxyaemxolyFXSO-UCA-7 (COVID 19) bivalent 30 mcg/0.3 ml fydeDfacnjq31/11/2023dministeredZOSTER (SHINGLES) VACCINE (HZV)Uasvwro17/27/2023Administered Social History Tobacco Use: Social History Observation Description Date Details (start date - stop date) Never Smoker NA - NA Tobacco Use/Smoking Question Answer Notes Patient is a nonsmoker Tobacco Control (Standard) Question Answer Notes Tobacco use: Nonsmoker Problems Problem Type SNOMED Code ICD Code Onset Dates Problem Status W/U Status Risk Notes Problem Chronic obstructive pulmonary disease (60621847) Chronic obstructive pulmonary disease, unspecified (J44.9) ActiveconfirmedProblemObesity (793593157)Obesity, unspecified (E66.9)Active confirmedProblemLocalized, primary osteoarthritis of the ankle and/or foot (140305828)Primary osteoarthritis, right ankle and foot (M19.071)Activeconfirmed ProblemPeripheral neuropathy (002420354)Peripheral neuropathy (G62.9)Active confirmedProblemObstructive sleep apnea syndrome (42391431)REMY (obstructive sleep apnea) (G47.33)ActiveconfirmedProblemArthralgia of the ankle and/or foot (171041201)Right ankle pain (M25.571)ActiveconfirmedProblemAtrial fibrillation (05074180)PAF (paroxysmal atrial fibrillation) (I48.0)ActiveconfirmedProblem History of asbestos exposure (560440220)History of asbestos exposure (Z77.090) ActiveconfirmedProblemBody mass index 30.00 to 34.99 (827969126103986)Body mass index [BMI] 34.0-34.9, adult (Z68.34)ActiveconfirmedProblemHistory of COVID-19 (581066951835627188)History of COVID-19 (Z86.16)Activeconfirmed Vital Signs Heart Rate 71 /min 04/05/2024 Kocolaegjjc36.9 degrees Vxuwrynqws09/17/2305Kfnqokxt99 %04/05/20248639Klibaf13 in 04/05/2024 Encounters Encounter Location Date Provider Diagnosis [facility] (PODIATRY) [address] [place] [address] [place] [address] 04/05/2024 Gomez Schneider Primary osteoarthritis, right ankle and foot M19.071 ; Posterior tibial tendinitis, right leg M76.821 and Ingrowing nail L60.0 Pulmonary Medicine [place] [address] [place] [address] 11/15/2024 Davin Reyes Assessments Encounter Date Diagnosis (ICD Code) Assessment Notes Treatment Notes Treatment Clinical Notes Section Notes 04/05/2024 Primary osteoarthritis, right an kle and foot (ICD-10 - M19.071) Patient is doing well with bracing and meloxicam. He did recently receive a refill of meloxicam Terry recommend that he follow-up with Dr. Contreras his PCP regarding long-term management of the meloxicam. I did briefly discuss surgical intervention and given that patient is doing well and not having regular limitations I recommended that he continue nonsurgical treatment. He will follow-up in 6 months or as needed.04/05/2024osterior tibial tendinitis, right leg (ICD-10 - M76.821)04/05/2024Ingrowing nail (ICD-10 - L60.0)The toenail was debrided sharply without incident into [...] Coverage Start Date Coverage End Date MEDICARE RAGreenM[employer] [address] [address] [place]A SID JAMA GBA [id number] Nathen Duqueelf - patient is the atbxoeo59 2014[employer] [address] [address] ALICIAZURI [id number], DouglasSelf - patient is the bihcady17 2014 Medical (General) History Medical History History ICD Code REMY (obstructive sleep apnea) G47.33 HLD (hyperlipidemia) E78.5 PAF (paroxysmal atrial fibrillation) I48 .0 LVH (left ventricular hypertrophy) I51.7 HTN (hypertension) I10 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
--- OUTSIDE RECORDS SUMMARY | 2025-03-17 09:50 | XMS_ITS | Clinical Summary ---
Author Organization [facility] Address [address] [address] Care Team Providers Care Health Services Director Name Role Phone Alvin Contreras DO Primary Care Provider [phone] Allergies Active AllergyReactionsCriticalityNoted YeccHvehsniqJdacqtbuumUkuqhjbu95/29/2023 Bswzhavczs67/23/7711Wizcitfohn01/29/4561LmkgipcwubuGephiOiqdbd43/19/2014 Medications MedicationSigDispense QuantityRefillsLast FilledStart DateEnd DateStatus magnesium 30 mg tablet Take 500 mg by mouth in the morning.Active nebivolol (Bystolic) 5 mg tablet Indications:Essential hypertensionTake 1 tablet (5 mg) by mouth in the morning. 90 tablet /8Active Additional Information Patient not taking.Reported on 10/25/2024 baclofen (Lioresal) 10 mg tablet Take 10 mg by mouth if needed.Active potassium gluconate 600 mg (99 mg) tablet Take by mouth.Active meloxicam (Mobic) 15 mg tablet Take 1 tablet by mouth in the morning.5Active losartan (Cozaar) 100 mg tablet Take 1 tablet by mouth every other day.04/11/2024ctive ferrous sulfate 325 (65 Fe) MG EC tablet Take 65 mg of iron by mouth every other day. Do not crush, chew, or split.Active flecainide (Tambocor) 100 mg tablet Indications:PalpitationsTake 1 tablet (100 mg) by mouth two times daily. 180 tablet 303/503/6Active losartan-hydrochlorothiazide (Hyzaar) 100-25 mg tablet Indications:Essential hypertensionTAKE 1 TABLET EVERY MORNING 90 tablet 5Active amLODIPine (Norvasc) 10 mg tablet Indications:Essential hypertensionTake 1 tablet (10 mg) by mouth once daily as directed. 90 tablet 5Active Active Problems ProblemNoted DateDiagnosed DatePAF (paroxysmal atrial fibrillation)11/10/2023 Disturbance of skin dyvydjcuf53/12/2020Gait lirbaamwtpe63/12/2020Monoplegia of left lower rfgvxzitw42/12/2020Right foot drop06/30/2019Chronic pain of right ankle08/31/2018Lytic bone lesion of right femur08/27/2017Class 2 obesity due to excess calories without serious comorbidity with body mass index (BMI) of 37.0 to 37.9 in adult08/24/2017 Overview (05/08/2022): Last Assessment & Plan: BMI-37 REMY (obstructive sleep apnea)08/24/2017 Overview (05/08/2022): Last Assessment & Plan: Uses CPAP, instructed to bring Bzcqpcmkzoplbw91/03/2018 Overview (05/08/2022): Added automatically from request for surgery [id number] Last Assessment & Plan: H/o, 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 Fjxsnen2609/05/2013Paroxysmal supraventricular hsxilltzngi47/26/2012 Overview (05/08/2022): Last Assessment & Plan: Rate well controlled and on Xarelto, pt states stopped 08/28/2018 Last Assessment & Plan: On Amiodarone Chest pain02/19/2012Essential xwxhmkfxotti19/01/2012 Overview (05/08/2022): Last Assessment & Plan: Controlled, on rx Vcdoowhxrqidcw00/01/2012Primary ftzxgyabnfbzte94/01/1175Jmvxubdsrsx60/01/2012 Encounters DateTypeDepartmentCare RcvlKpjmmfzcgpj33/14/2025Orders Only [facility] [address] [place] [address] Clarence Macdonald MD 01/31/2025Refill [facility] at [facility] [address] [place] [address] Chava Real MD Essential rojypzkrkxxc91/13/2025 1:30 PM EDTAncillary Procedure [facility] [place] [facility] [address] [place] [address] Awareness of heartbeatsfrom Last 3 Months Family History Medical HistoryRelationNameCommentsCoronary artery diseaseOtherHypertensionOther RelationNameStatusCommentsFatherDeceasedMotherDeceasedOther Social History Tobacco UseTypesPacks/DayYears UsedDateSmoking Tobacco: NeverSmokeless Tobacco: Never Tobacco Cessation:Counseling Given: Not Answered Alcohol UseStandard Drinks/WeekCommentsYes0 (1 standard drink = 0.6 oz pure alcohol)occasionalUT Safety & EnvironmentAnswerDate RecordedFear of Current or Ex-PartnerNot on file06/11/2023Emotionally AbusedNot on file06/11/2023hysically AbusedNot on file06/11/2023Sexually AbusedNot on file06/11/2023hysically or Sexually AbusedNot on file06/11/2023Sex and Gender InformationValueDate Recorded Sex Assigned at SkglhTuaq87/17/2025 8:31 PM EDTLegal HuaJdsw6110/16/2021 10:57 PM EDTGender UwmmqsunVhlc06/17/2025 8:31 PM EDTSexual OrientationChoose not to sobwqxtd00/17/2025 8:31 PM EDT Last Filed Vital Signs Vital SignReadingTime TakenCommentsBlood Viicbmyi268/9207 2:29 PM EDT Masik8538/11/2024 2:29 PM EDTTemperature--Respiratory Bsmv040805/15/2023 2:18 PM ESTOxygen Hexvicazei65%10/25/2024 2:29 PM EDTInhaled Oxygen Concentration-- Ddwdfh181 kg (270 lb)10/25/2024 2:29 PM QVFQxwagq380.5 cm (6' 3 )10/25/2024 2:29 PM EDTBody Mass Index33.75010/25/2024 2:29 PM EDT Plan of Treatment Health MaintenanceDue DateLast DoneCommentsCT Ukebiogygfhm65/01/1950Colonoscopy 1949FOBT1949Medicare Annual Wellness (AWV)1949Sigmoidoscopy 1949Depression Zijdoxpjn71/01/1962Adult Lkmtazq8609/19/1971Fall Risk Gxhewxijg35/01/1837YLP50olorectal Cancer Mddxrlkiq84/26/2025 FIT-DNA2COVID-19 Vaccine ( season)2025 12/22/2024, 12/22/2023, 11/28/2022, Additional history existsPneumococcal Vaccine: 50+ KpeldUnmwwohnh46/04/2016, 01/18/2015, 03/01/2009Zoster Vaccines Pjuvsaery15/27/2023, 07/08/2022Influenza FywbhshKbwwaugue11/04/2025, 12/09/2023, 12/16/2022, Additional history existsHIB VaccinesAged OutNo longer eligible based on patient's age to complete this topicHPV VaccinesAged OutNo longer eligible based on patient's age to complete this topicIPV VaccinesAged OutNo longer eligible based on patient's age to complete this topicMeningococcal B VaccineAged OutNo longer eligible based on patient's age to complete this topic Meningococcal VaccineAged OutNo longer eligible based on patient's age to complete this topicRotavirus VaccinesAged OutNo longer eligible based on patient's age to complete this topic Medical Devices ImplantedTypeAreaManufacturerDevice IdentifierShelf Expiration DateModel / Serial / LotMonitor,Cardiac,Lux,Dxii+[facility] - [id number] - [id number] Implanted:Qty: 1 on 12/09/2023 by Alpesh Jenkins MD at [facility]Implant[facility] Loop RecorderLeft: ChestBoston Ywywhllvsl49/12/2025 [id number] / [id number] / Procedures Procedure NamePriorityDate/TimeAssociated DiagnosisCommentsCARDIAC DEVICE CHECK CHECK - LAHAQOYwqavhr79/17/2025 12:27 PM EDT Awareness of heartbeats CARDIAC DEVICE CHECK - REMOTE - LOOP RECORDER (ILR)Nafdfqj4601/31/2025 12:00 AM EDTfrom Last 3 Months Results * CARDIAC DEVICE CHECK - REMOTE - LOOP RECORDER (ILR) (02/03/2025 12:27 PM EDT) Specimen (Source)Anatomical Location / LateralityCollection Method / Volume Collection TimeReceived Time Narrative Authorizing ProviderResult TypeResult StatusPacandie Jenkins [facility] IMPLANTABLE CARDIAC DEVICE PROCEDURESFinal ResultPerforming OrganizationAddressCity/State/ZIP Code Phone Number CPACS * Cardiac device check - Remote loop recorder (ILR) (01/31/2025 12:00 AM EDT) Anatomical RegionLateralityModalityOtherSpecimen (Source)Anatomical Location / LateralityCollection Method / VolumeCollection TimeReceived Time01/31/2025 Narrative Authorizing ProviderResult TypeResult StatusAbhishetano Macdonald MDCV IMPLANTABLE CARDIAC DEVICE PROCEDURESFinal Result from Last 3 [place] [address] Care Teams Team MemberRelationshipSpecialtyStart DateEnd Date Alvin Contreras DO [address] [place] [address] [facility] - General05/08/22
--- OUTSIDE RECORDS SUMMARY | 2025-03-17 09:50 | XMS_ITS | Encounter Summary ---
Author Organization [facility] Address [address] [facility], [address] [place] [address] Care Team Providers Care Property Management Coordinator Name Role Phone Alvin Contreras DO Primary Care Provider [phone] Encounter Details DateTypeDepartmentCare Team (Latest Contact Info)Ndzzqlfglxj18/25/2025bstract [facility] Pulmonology [address] [place] [address] [address] Social History Tobacco UseTypesPacks/DayYears UsedDateSmoking Tobacco: NeverSmokeless Tobacco: NeverAlcohol UseStandard Drinks/WeekCommentsNot Currently0 (1 standard drink = 0.6 oz pure alcohol)Sex and Gender InformationValueDate RecordedSex Assigned at MvepxSrbb78/25/2025 10:58 AM ESTLegal HhbZaiv9206/02/2012 1:08 AM ESTGender KvjuwparYmuu75/25/2025 10:58 AM ESTSexual QhoiyeioavhKnfxzcvq14/25/2025 10:58 AM ESTdocumented as of this encounter Plan of Treatment DateTypeDepartmentCare Team (Latest Contact Info)Jocevldjbrs13/10/2026 1:00 PM ESTOffice Visit [facility] [address] [place] [address] [place] [address] 1 YR F/U OSAdocumented as of this encounter Visit Diagnoses Not on filedocumented in this encounter Additional Health Concerns AssessmentNoted TimeA fall risk assessment has been completed for the patient 03/14/2025 11:13 AM ESTdocumented as of this encounter Care Teams Team MemberRelationshipSpecialtyStart DateEnd Date Alvin Contreras DO [address] [place] [address] PCP - GeneralInternal Uxhzyspb80/21/25documented as of this encounter
--- OUTSIDE RECORDS SUMMARY | 2025-03-17 09:51 | XMS_ITS | Encounter Summary ---
Author Organization [facility] Address [address] [place] [address] Care Team Providers Care Metal Tube Cutter Name Role Phone Alvin Contreras DO Primary Care Provider [phone] Source Comments In the event this information is protected by the Federal Confidentiality of Alcohol and Drug AbusePatient Records regulations: The Federal rules restrict any use of the information to criminally investigate or prosecute any alcohol or drug abuse patient.[facility] Encounter Details DateTypeDepartmentCare Team (Latest Contact Info)Izygivqgjlg20/18/2025 Patient Msg [facility] [address] [id number] Provider, Ccf Consult to [facility] Social History Tobacco UseTypesPacks/DayYears UsedDateSmoking Tobacco: NeverPassive Smoke Exposure: PastSmokeless Tobacco: NeverAlcohol UseStandard Drinks/WeekCommentsNot Currently0 (1 standard drink = 0.6 oz pure alcohol)PHQ-2AnswerDate RecordedPHQ-2 vwxcl898Area Deprivation IndexAnswerDate RecordedNational Score (1-100), lower number is lower amxy982501/13/2023State Score (1-10), lower number is lower ilnb3653Data from: https://www.neighborhoodatlas.[facility]/. Last address used for [address] [address]/13/2023Sex and Gender InformationValueDate RecordedSex Assigned at HafdmNwnc53/05/2020 10:00 AM EDT Legal QdoDqik3806/19/2017 8:05 AM ESTGender IdentityNot on fileSexual Orientation Ahustyyn64/05/2020 10:00 AM EDTdocumented as of this encounter Functional Status * Are you deaf or do you have serious difficulty hearing?AnswerDate of FzirrhwfpzVxdfjmEx33/14/2018 4:00 PM Rylee Mendes RN * Are you blind or do you have serious difficulty seeing, even when wearing glasses?AnswerDate of SbaazpizuhPhxwasTc97/14/2018 4:00 PM Rylee Mendes RN * Do you have serious difficulty walking or climbing stairs?AnswerDate of SvxtgdtouoBdbctuDu83/14/2018 4:00 PM Rylee Mendes RN * Do you have difficulty dressing or bathing?AnswerDate of AssessmentAuthorNo 08/31/2017 4:00 PM Rylee Mendes RN * Because of a physical, mental, or emotional condition, do you have difficulty doing errands alone such as visiting a doctor's office or shopping?AnswerDate of NkjrghrkwfPkqdfrHy38/14/2018 4:00 PM Rylee Mendes RN documented as of this encounter Mental Status * Because of a physical, mental, or emotional condition, do you have serious difficulty concentrating, remembering, or making decisions?AnswerEntry Date XxhdfhDg58/14/2018 4:00 PM Rylee Mendes RN documented in this encounter Plan of Treatment DateTypeDepartmentCare Team (Latest Contact Info)Unrwyqixrdc98/08/2025 4:00 PM ESTVisit (SP) Office Hematology/Oncology [address] [place] [address] Jameson Gr MD [address] [place] [address] [place] [address] Referred for further workup of the lymphadenopathydocumented as of this encounter Visit Diagnoses Not on filedocumented in this encounter Care Teams Team MemberRelationshipSpecialtyStart DateEnd Date Alvin Contreras DO [address] [place] [address] PCP - GeneralInternal Medicine06/19/17documented as of this encounter
--- OUTSIDE RECORDS SUMMARY | 2025-03-17 09:51 | XMS_ITS | Encounter Summary ---
Author Organization [facility] Address [address] [place] [address] Care Team Providers Care Cook Mayonnaise Name Role Phone Alvin Contreras DO Primary Care Provider [phone] Source Comments In the event this information is protected by the Federal Confidentiality of Alcohol and Drug AbusePatient Records regulations: The Federal rules restrict any use of the information to criminally investigate or prosecute any alcohol or drug abuse patient.[facility] Reason for Referral * Consult, Test, Treat (Routine) - ClosedSpecialtyDiagnoses / ProceduresReferred By ContactReferred To Contact Diagnoses Abnormal finding of diagnostic imaging Procedures OFFICE/OUTPATIENT [facility] 60 MINUTES Erica Funez APRN.VIDEO JOURNALIST [address] [place] [address] Phone: tel: fax: Referral IDStatusReasonStart DateExpiration DateVisits RequestedVisits [id number] PCP Requested Referral Encounter Details DateTypeDepartmentCare Team (Latest Contact Info)Sxqhdcyoejd11/18/2025Telephone [facility] [address] [place] [address] Erica Funez APRN.VIDEO JOURNALIST [address] [place] [address] Social History Tobacco UseTypesPacks/DayYears UsedDateSmoking Tobacco: NeverPassive Smoke Exposure: PastSmokeless Tobacco: NeverAlcohol UseStandard Drinks/WeekCommentsNot Currently0 (1 standard drink = 0.6 oz pure alcohol)PHQ-2AnswerDate RecordedPHQ-2 jvquz521Area Deprivation IndexAnswerDate RecordedNational Score (1-100), lower number is lower pndm596201/13/2023State Score (1-10), lower number is lower eydf3483Data from: https://www.neighborhoodatlas.[facility]/. Last address used for [address] [address]/13/2023Sex and Gender InformationValueDate RecordedSex Assigned at YispeBgeq87/05/2020 10:00 AM EDT Legal MbsFyzb2606/19/2017 8:05 AM ESTGender IdentityNot on fileSexual Orientation Robgxumb56/05/2020 10:00 AM EDTdocumented as of this encounter Functional Status * Are you deaf or do you have serious difficulty hearing?AnswerDate of AwkeohnqnbScntogYi41/14/2018 4:00 PM Rylee Mendes RN * Are you blind or do you have serious difficulty seeing, even when wearing glasses?AnswerDate of GqaxcjafsgZijeliJp50/14/2018 4:00 PM Rylee Mendes RN * Do you have serious difficulty walking or climbing stairs?AnswerDate of JubyqcdnmeBbxuoiMz16/14/2018 4:00 PM Rylee Mendes RN * Do you have difficulty dressing or bathing?AnswerDate of AssessmentAuthorNo 08/31/2017 4:00 PM Rylee Mendes RN * Because of a physical, mental, or emotional condition, do you have difficulty doing errands alone such as visiting a doctor's office or shopping?AnswerDate of PepquklupdSytochGp89/14/2018 4:00 PM Rylee Mendes RN documented as of this encounter Mental Status * Because of a physical, mental, or emotional condition, do you have serious difficulty concentrating, remembering, or making decisions?AnswerEntry Date YsaqzoCd89/14/2018 4:00 PM Rylee Mendes RN documented in this encounter Plan of Treatment DateTypeDepartmentCare Team (Latest Contact Info)Hhfyjsvwdbg93/08/2025 4:00 PM ESTVisit (SP) Office Hematology/Oncology [address] [place] [address] Jameson Gr MD [address] [place] [address] Referred for further workup of the lymphadenopathyNameTypePriorityAssociated DiagnosesOrder ScheduleCONSULT TO ACTIONABLE FINDINGS CLINICReferralRoutine Abnormal finding of diagnostic imaging 1 Occurrences starting 03/07/2025 until 03/07/2026documented as of this encounter Visit Diagnoses Diagnosis Abnormal finding of diagnostic imaging- Primary Other nonspecific (abnormal) findings on radiological and other examinations of body structure documented in this encounter Care Teams Team MemberRelationshipSpecialtyStart DateEnd Date Alvin Contreras DO [address] [place] [address] PCP - GeneralInternal Medicine06/19/17documented as of this encounter
--- OUTSIDE RECORDS SUMMARY | 2025-03-17 09:51 | XMS_ITS | Clinical Summary ---
Author Organization [facility] Address [address] [place] [address] Care Team Providers Care Talent Management Specialist Name Role Phone Alvin Contreras DO Primary Care Provider [phone] Allergies Active AllergyReactionsCriticalityNoted DateCommentsInsects ExtractOther: See Tykartcl48/14/2021 Insect protein - eyes swell and blistering HqjpldswyxrUrperGrrffo87/19/2014 Medications MedicationSigDispense QuantityRefillsLast FilledStart DateEnd DateStatus losartan-hydrochlorothiazide (HYZAAR) 100-25 mg per tablet Indications:Neoplasm of unspecified behavior of bone, soft tissue, and skinTake 1 tablet by mouth once daily. 03/20/2017Active amLODIPine (NORVASC) 10 mg tablet Take 10 mg by mouth once daily.Active Magnesium 30 mg tablet Take 500 mg by mouth once daily.Active flecainide (TAMBOCOR) 100 mg tablet Take 100 mg by mouth two times a day.10/08/2021ctive meloxicam (MOBIC) 15 mg tablet Take 15 mg by mouth once daily.Active Aspirin 81 mg tab Take 81 mg by mouth.Active acetaminophen (TYLENOL) 500 mg tablet Take 1 tablet by mouth every 4 hours as needed for pain.5Active calcium carbonate (TUMS) 500 mg chew Take 1 tablet by mouth every hour as needed (mouth or hand numbness or tingling). 30 tablet 5Active Additional Information Patient not taking.Reported on 02/28/2025 ijdkkwk-cetumbzse-zswibto D3 500 mg-5 mcg (200 unit) per tablet Take 1 tablet by mouth three times a day. 90 tablet 5Active MAGNESIUM ASCORBATE, BULK, MISC Active multivit-minerals/folic/ginkgo (WOMEN'S 50+ DAILY FORM, GKB, ORAL) Take by mouth.Active Active Problems ProblemNoted DateDiagnosed DateRight foot drop06/30/2019Monoplegia of left lower /12/2020Gait manobbxdekr16/12/2020Disturbance of skin sensation 06/30/2019Chronic pain of right ankle08/31/2018Lytic bone lesion of right femur 08/27/2017Essential yrpygrrpslho08/07/2018 Assessment & Plan (11/01/2024 11:28 AM EDT): Stable, complaint on LOSARTAN 100 MG-HYDROCHLOROTHIAZIDE 25 MG TABLET Take 1 tablet by mouth once daily. AMLODIPINE 10 MG TABLET Take 10 mg by mouth once daily. Follows with PCP. 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 Managed with flecainide and and ASA Follows with ADRIAN Bennett 10/25/24 Assessment & Plan (08/31/2018 2:51 PM EDT): Rate well controlled and on Xarelto, pt states stopped 08/28/2018 SVT (supraventricular tachycardia)08/24/2017 Assessment & Plan (11/02/2024 11:03 AM EDT): H/o cardioversion 2015 Sinus lanette on ECG today Managed with flecainide Follows with ADRIAN Bennett 10/25/24 Assessment & Plan (08/31/2018 2:51 PM EDT): On Amiodarone Class 1 obesity due to excess calories without serious comorbidity with body mass index (BMI) of 34.0 to 34.9 in adult08/24/2017 Assessment & Plan (11/01/2024 11:30 AM EDT): Body mass index is 34.02 kg/m??. Assessment & Plan (08/31/2018 2:53 PM EDT): BMI-37 REMY (obstructive sleep apnea)08/24/2017 Assessment & Plan (11/01/2024 9:34 AM EDT): Compliant with CPAP Assessment & Plan (08/31/2018 2:52 PM EDT): Uses CPAP, instructed to bring Nsokmnibkljimj32/03/2018 Overview (08/20/2017): Added automatically from request for surgery [id number] Assessment & Plan (11/01/2024 9:34 AM EDT): H/o, 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 Assessment & Plan (08/31/2018 2:53 PM EDT): H/o, 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 Encounters DateTypeDepartmentCare KopmDvtgxesnslp76/21/2025 1:30 PM ESTDisUpstate Golis[facility] [address] [place] [address] Bella Kam, SCHOOL DIRECTOR.CRIMINAL JUSTICE INSTRUCTOR Lymphadenopathy (Primary Dx); Chondrosarcoma (HCC); Abnormal finding of diagnostic ugmlsqu0503/07/2025 Patient Msg [facility] [address] [place] [address] Provider, Ccf Consult to Actionable Finding Yzxgwb7103/07/2025Telephone [facility] [address] [place] [address] Erica Funez, SCHOOL DIRECTOR.CRIMINAL JUSTICE INSTRUCTOR 03/01/2025Results Follow-Up Endocrinology [address] [place] [address] Gaudencio Lewis MD 02/28/2025 2:20 PM ESTOffice Visit Endocrinology [address] [place], [place] [id number] Gaudencio Lewis MD History of primary hyperparathyroidism (Primary Dx)02/28/2025Travelfrom Last 3 Months Family History Medical HistoryRelationCommentsLymphomaFatherDiabetesMaternal Grandmother DiabetesMotherAnesthesia ProblemsNo Family HistoryRelationStatusCommentsFather Maternal GrandmotherMother Social History Tobacco UseTypesPacks/DayYears UsedDateSmoking Tobacco: NeverPassive Smoke Exposure: PastSmokeless Tobacco: Never Tobacco Cessation:Counseling Given: Not Answered Alcohol UseStandard Drinks/WeekCommentsNot Currently0 (1 standard drink = 0.6 oz pure alcohol)PHQ-2AnswerDate RecordedPHQ-2 ohzlu950Area Deprivation IndexAnswerDate RecordedNational Score (1-100), lower number is lower risk60 01/13/2023State Score (1-10), lower number is lower grqo3743Data from: https://www.neighborhoodatlas.[facility]/. Last address used for [address] [address]Sex and Gender InformationValueDate RecordedSex Assigned at MdkubLvle99/05/2020 10:00 AM EDTLegal YlzJrap2706/19/2017 8:05 AM ESTGender IdentityNot on fileSexual OwlwaiszokxPosfjosb78/05/2020 10:00 AM EDT Last Filed Vital Signs Vital SignReadingTime TakenCommentsBlood Yyjfndtu118/7011 2:20 PM EST Djrrv846402/28/2025 2:20 PM MCYKdpfvyurjmf24.4 ??C (97.5 ??F)11/15/2024 4:49 AM EDTRespiratory Ilhq218411/15/2024 4:49 AM EDTOxygen Dyqvtexhhb44%11/15/2024 4:49 AM EDTInhaled Oxygen Concentration--Nybjpm014.3 kg (263 lb 0.1 oz)02/28/2025 2:20 PM ATMWdihcv585 cm (6' 2 )11/14/2024 9:38 AM EDTBody Mass Index33.77 11/14/2024 9:38 AM EDT Plan of Treatment DateTypeDepartmentCare Team (Latest Contact Info)Xodphfwjnqf86/08/2025 4:00 PM ESTVisit (SP) Office Hematology/Oncology [address] [place] [address] [place] [address] Jameson Gr MD [address] [place] [address] [place] [address] Referred for further workup of the lymphadenopathyHealth MaintenanceDue DateLast DoneCommentsAnnual PCP Team Chronic Disease Visit09/19/1967Anxiety Screening 09/19/1967Depression Klaueiblx57/01/1968Hepatitis C Hydhpgzyi40/01/1968Lipid Avwxuxbxw95/01/1985CT Kqfenyryatpj21/01/5866Lctsyzpamcf87/01/1995Fecal Occult Blood09/18/19941997Uegokffpicwcs02/01/1995Medicare Annual Wellness Visit08/18/2014 Advance Directive Vtnbxlmoja68/01/2025Cologuard (FIT-DNA)51, 11/08/2018Colorectal Cancer Vtfnvgoxz66/26/2025ovid-19 Vaccine ( season)/07/2024, 12/22/2023, 11/28/2022, Additional history exists DTaP,Tdap,Td Vaccine (3 - Tdap), 02/25/2006Diabetes Yphjxubjp16, 10/26/2019, 08/31/2018, Additional history exists Pneumococcal Vaccine: 50+Euddcdrjc27/04/2016, 01/18/2015, 03/01/2009Shingrix HjdicpaTngligxdn64/27/2023, 07/08/2022RSV WdelotbRlesqgqen43/14/2023Influenza VzuqvchNavwaxiba58/04/2025, 12/09/2023, 12/16/2022, Additional history exists Medical Devices ImplantedTypeAreaManufacturerDevice IdentifierShelf Expiration DateModel / Serial / LotGraft Enhance Demineralized Cortical Fiber Bone Allograft Dehydrate 2.5ml - [id number] Implanted:Qty: 1 on 08/27/2017 at [facility]07/28/[id number] / / [id number] Cancellous Chips Bone Void Freeze Dry 30ml (1.7-10mm) - [id number] Implanted:Qty: 1 on 08/27/2017 at [id number] / / [id number] Dbx Bone Void Allograft Freeze Dried Putty 1ml - [id number] Implanted:Qty: 1 on 08/27/[address] [facility] / SwdkeUGG50/10/2019 [id number] / [id number] / Tibial Nail Implanted:Qty: 1 on 08/27/2017 at [facility]11/27/2021 [id number] / / [id number] Titaniumscrew Implanted:Q[id number] / / Carbofix Titanium Screw Implanted:Qty: [id number] / / Carbofix Titanium Screw Implanted:Qty: 1 [facility] [id number] / / Carbofix Titanium Screw Implanted:Qty: [id number] / / Carbofix Titanium Screw Implanted:Qty: 1 on 08/27/2017 at [id number] / / Procedures Procedure NamePriorityDate/TimeAssociated DiagnosisCommentsPTH INTACT BLDRoutine 02/28/2025 2:37 PM EST Primary hyperparathyroidism (HCC) VITAMIN D 25 JECBIIKGpqlpsr80/11/2025 2:37 PM EST Primary hyperparathyroidism (HCC) RENAL FUNCTION MUHSOTvuzjwk12/11/2025 2:37 PM EST Primary hyperparathyroidism (HCC) BASIC METABOLIC ZXKIIWtqterp00/ 11:24 AM EDT Hyperparathyroidism (HCC) from Last 3 Months or Most Recently Relevant to Health Maintenance Results * (ABNORMAL) VITAMIN D 25 HYDROXY (02/28/2025 2:37 PM EST)ComponentValueRef RangeTest MethodAnalysis TimePerformed AtPathologist SignatureVitamin D 25 Bdpguig92.6(L)31.0 - 80.0 ng/mL03/01/2025 1:00 PM [facility] Comment: Classification of 25 [place] Vitamin D status: Deficiency/Insufficiency: < or = 30 ng/ml. Sufficiency/Optimal Levels: 31-80 ng/mL Toxicity: > 100 ng/mL. Test performed by chemiluminescent immunoassay. Specimen (Source)Anatomical Location / LateralityCollection Method / Volume Collection TimeReceived TimeBloodBLOOD SPECIMEN / UnknownVenipuncture / Unknown 02/28/2025 2:37 PM EST02/28/2025 2:38 PM EST Narrative [facility] - 03/01/2025 1:00 PM EST The reference range interval was based on an analysis of samples from healthy adults and may not pertain to children from 0-18 years old. Authorizing ProviderResult TypeResult StatusRahul Raymon Lewis MDLABORATORYFinal ResultPerforming OrganizationAddressCity/State/ZIP CodePhone Number [facility] [address] * RENAL FUNCTION PANEL (02/28/2025 2:37 PM EST)ComponentValueRef RangeTest MethodAnalysis TimePerformed AtPathologist SignatureAlbumin4.23.9 - 4.9 g/dL 03/01/2025 1:10 AM [facility] LABCalcium, Total9.58.5 - 10.2 mg/dL03/01/2025 1:10 AM [facility] LABPhosphorus3.72.7 - 4.8 mg/dL03/01/2025 1:10 AM [facility] SFFOctdrrb9643 - 99 mg/dL 03/01/2025 1:10 AM [facility] LABComment: The [place] Diabetes Association (ADA) provides guidance for cutoff [...] Standards of Medical Care in Diabetes 2016, [place] Diabetes Association. Diabetes Care. 2016.39(Suppl 1). ZAP567 - 24 mg/dL03/01/2025 1:10 AM [facility] LABCreatinine1.11 0.73 - 1.22 mg/dL03/01/2025 1:10 AM [facility] WEVOgqeck560951 - 144 mmol/L105/01/2024 1:10 AM [facility] LABPotassium4.23.7 - 5.1 mmol/L105/01/2024 1:10 AM [facility] ZZYLoxhlybd66376 - 107 mmol/L 03/01/2025 1:10 AM [facility] EJIZZ33322 - 30 mmol/L105/01/2024 1:10 AM [facility] LABAnion Clq718 - 15 mmol/L105/01/2024 1:10 AM [facility] LABEstimated Glomerular Filtration Rate69>=60 mL/min/1.73m 03/01/2025 1:10 AM [facility] LABComment:Estimated Glomerular Filtration Rate (eGFR) is calculated using the 2020 CKD-EPI creatinine equation. This equation utilizes serum creatinine, sex, and age as parameters. The creatinine assay has traceable calibration to isotope dilution-mass spectrometry. Refer to KDIGO guidelines for clinical interpretation. In patients with unstable renal function, e.g. those with acute kidney injury, the eGFRmay not accurately reflect actual GFR.Specimen (Source)Anatomical Location / LateralityCollection Method / VolumeCollection TimeReceived TimeBloodBLOOD SPECIMEN / UnknownVenipuncture / Ixqpigw3402/28/2025 2:37 PM EST02/28/2025 2:38 PM EST Narrative Authorizing ProviderResult TypeResult StatusRahul Raymon Lewis MDLABORATORYFinal ResultPerforming OrganizationAddressCity/State/ZIP CodePhone Number [facility] [address] [place] [address], [place] * PTH INTACT (02/28/2025 2:37 PM EST)ComponentValueRef RangeTest MethodAnalysis TimePerformed AtPathologist SignaturePTH, Gikpxg1396 - 65 pg/mL03/01/2025 1:10 AM ESTAULT[facility] LABSpecimen (Source)Anatomical Location / LateralityCollection Method / VolumeCollection TimeReceived TimeBloodBLOOD SPECIMEN / UnknownVenipuncture / Efxgkeo4602/28/2025 2:37 PM EST02/28/2025 2:38 PM EST Narrative Authorizing ProviderResult TypeResult StatusRahul Raymon Lewis MDLABORATORYFinal ResultPerforming OrganizationAddressCity/State/ZIP CodePhone Number [facility] [address] [place] [address], * (ABNORMAL) BASIC METABOLIC PANEL (11/01/2024 11:24 AM EDT)ComponentValueRef RangeTest MethodAnalysis TimePerformed AtPathologist MtrzijlrqDuqooeg855(H)74 - 99 mg/dL11/01/2024 2:16 PM [facility] LABComment: The [place] Diabetes Association (ADA) provides guidance for cutoff [...] Standards of Medical Care in Diabetes 2016, [place] Diabetes Association. Diabetes Care. 2016.39(Suppl 1). UZD100 - 24 mg/dL11/01/2024 2:16 PM [facility] Creatinine0.860.73 - 1.22 mg/dL11/01/2024 2:16 PM [facility] LNHKtlsce559131 - 144 mmol/L11/01/2024 2:16 PM [facility] LABPotassium4.53.7 - 5.1 mmol/L11/01/2024 2:16 PM [facility] OHXGtjnpbeq91880 - 107 mmol/L11/01/2024 2:16 PM [facility] GCADW06318 - 30 mmol/L11/01/2024 2:16 PM [facility] LABAnion Gap98 - 15 mmol/L11/01/2024 2:16 PM [facility] LABCalcium, Total11.0(H)8.5 - 10.2 mg/dL11/01/2024 2:16 PM [facility] LABEstimated Glomerular Filtration Rate90>=60 mL/min/1.73m 11/01/2024 2:16 PM [facility] LABComment:Estimated Glomerular Filtration Rate (eGFR) is calculated using the 2020 CKD-EPI creatinine equation. This equation utilizes serum creatinine, sex, and age as parameters. The creatinine assay has traceable calibration to isotope dilution- mass spectrometry. Refer to KDIGO guidelines for clinical interpretation. In patients with unstable renal function, e.g. those with acute kidney injury, the eGFRmay not accurately reflect actual GFR.Specimen (Source)Anatomical Location / LateralityCollection Method / VolumeCollection TimeReceived TimeBloodBLOOD SPECIMEN / UnknownVenipuncture / Tonpucc2511/01/2024 11:24 AM EDT11/01/2024 11:24 AM EDT Narrative Authorizing ProviderResult TypeResult StatusJoyce Tra Samayoa MDLABORATORY Final ResultPerforming OrganizationAddressCity/State/ZIP CodePhone Number [facility] [address] [address], from Last 3 Months or Most Recently Relevant to Health Maintenance Insurance Advance Directives TypeDate RecordedPatient RepresentativeExplanationAdvance Directive(s)08/24/2017 2:28 PM Care Teams Team MemberRelationshipSpecialtyStart DateEnd Date Alvin Contreras DO [address] [place] [address] PCP - GeneralInternal Medicine06/19/17
--- OUTSIDE RECORDS SUMMARY | 2025-03-17 09:51 | XMS_ITS | Clinical Summary ---
Author Organization [facility] Address [address], [address] [place] [address] Care Team Providers Care Executive Compensation Analyst Name Role Phone Alvin Contreras DO Primary Care Provider + [phone] Allergies Active AllergyReactionsCriticalityNoted DateCommentsAtorvastatinOther (See Comments)12/03/20239881ZyfoboxqyoWaksssta22/29/2023Insect ExtractOther (See Comments)10/31/2020 Eyes swell and blistering Bjizyiysix74/23/8484Sxesyhtlpm61/29/2023enicillinsHives,UbcuRegefj91/19/2014 Medications MedicationSigDispense QuantityRefillsLast FilledStart DateEnd DateStatus vitamin D 25 MCG (1000 UT) CAPS Take by mouth04/11/2024ctive baclofen (LIORESAL) 10 MG tablet Take 1 tablet by mouth as ceaipg7406/12/2024tive aspirin 81 MG EC tablet Take 1 tablet by mouth dailyActive Coenzyme Q10 100 MG TABS Take 100 mg by mouth dailyActive flecainide (TAMBOCOR) 100 MG tablet Take 1 tablet by mouth 2 times dailyActive losartan-hydroCHLOROthiazide (HYZAAR) 100-25 MG per tablet Take 1 tablet by mouth daily5Active Magnesium Gluconate 550 MG TABS Take 500 mg by mouthActive Multiple Vitamins-Minerals (MULTI COMPLETE) CAPS Take 1 tablet by mouthActive verapamil (CALAN SR) 120 MG extended release tablet Take 1 tablet by mouth nightlyActive Potassium Gluconate 595 (99 K) MG TABS Take by mouthActive ascorbic acid (VITAMIN C) 1000 MG tablet Take 1 tablet by mouth dailyActive amLODIPine (NORVASC) 10 MG tablet Take 1 tablet by mouth dailyActive Active Problems ProblemNoted DateDiagnosed DateParatracheal serxsvvlmdiwjhp05/25/2025 Assessment & Plan (03/14/2025 12:07 PM EST): Abnormal CT of the chest03/14/2025 Assessment & Plan (03/14/2025 12:07 PM EST): Incidental finding of left anterior chest wall [...] the CT is not ordered by [facility]. REMY (obstructive sleep apnea) Assessment & Plan (03/14/2025 12:07 PM EST): A ngdf-ad-ztka encounter was performed with the patient today in order to document continued need for positive airway pressure (PAP). -Current DME: [facility] -Split-night 07/13/2023: AHI 78, titration 70qnV0Z -Prior PAP titration: 12/26/2015 @ 88bnT8M -PS12/18/2014; Initial AHI: 50 -Compliance was reviewed from 02/07/2025 to 03/08/2025 -Total days used: 30/30 (100%) days -Total days of use >4 hours: 29/30 (97%) days with median use of 5 hours 45 minutes -Current model: AirSense 11 AutoSet -Current mode: CPAP @ 40chE7S -Residual AHI: 10.5 -Median air leak: 1.5L/min -Mask/harness fitting: Mask fits well -Sleep quality with PAP: Restful -Residual daytime hypersomnolence: Denies -Recommendations: Patient has excellent compliance and voices improvement in his symptoms associatewith sleep apnea. However his AHI is not at goal <5). His prior visit, AHI was elevated at 11.2;this was after decreasing his pressure from 99uxP3U to 36odL1V -with this change, his AHI increasedfrom 6.3. He continues to complain of a pressure that feels too high. I do not want to lower it anyfurther as AHI continues to be elevated. I [...] than the original AHI 78). He also denies any significant residual symptoms. For now, patient elected to remain on his current settings. He was encouraged to call the office if he reconsiders or becomes more symptomatic. -This documentation authorizes that the patient's DME may request to renew, reorder, and/or replacetubing, mask, filter, any other associated supplies, and the PAP device (if applicable). History of asbestos exposure Assessment & Plan (03/14/2025 12:07 PM EST): History of sarcoma Assessment & Plan (03/14/2025 12:07 PM EST): Resolved Problems ProblemNoted DateDiagnosed DateResolved ZqajAofghlycqcygnq96/30/202510/30/2025 Ewangxytuuzvy94Peripheral sfaeztrvovndkk84 Primary chondrosarcoma of bone of right lower sscrcbagz72 Primary /30/202510/30/2025Vitamin D echxlpaggu60/30/2025 02/16/2025Right foot dropHyperlipidemia Primary jtstbftzxedajv24 Encounters DateTypeDepartmentCare UlvbFyvzjejhsck24/26/2025bstract [facility] [address] [address] Davin Reyes DO 03/14/2025 11:00 AM ESTOffice Visit [facility] [address] [place] [address], [address] [place] [address] Davin Reyes DO REMY (obstructive sleep apnea) (Primary Dx); Abnormal CT of the chest; Paratracheal lymphadenopathy; History of asbestos exposure; History of sarcoma; Obesity (BMI 30.0-34.9)03/14/20[facility] [address], [address] [place] [address] Davin Reyes DO 03/14/2025[facility] [address], [address] [place] [address] Davin Reyes DO 02/16/2025[facility] [address] [place] [address] Davin Reyes DO from Last 3 Months Family History Medical HistoryRelationNameCommentsLymphomaFatherKidney DiseaseMotherRelation NameStatusCommentsFatherMother Social History Tobacco UseTypesPacks/DayYears UsedDateSmoking Tobacco: NeverSmokeless Tobacco: Never Tobacco Cessation:Counseling Given: Not Answered Alcohol UseStandard Drinks/WeekCommentsNot Currently0 (1 standard drink = 0.6 oz pure alcohol)Sex and Gender InformationValueDate RecordedSex Assigned at Male03/14/2025 10:58 AM ESTLegal QqqDhcr4706/02/2012 1:08 AM ESTGender Identity Male03/14/2025 10:58 AM ESTSexual InkcaszskkaDpaqmlhv77/25/2025 10:58 AM EST Last Filed Vital Signs Vital SignReadingTime TakenCommentsBlood Sprpbjyy867/8203/14/2025 11:12 AM EST Aruwq046803/14/2025 11:12 AM YFKTeqfklfogxa83 ??C (96.8 ??F)03/14/2025 11:12 AM ESTRespiratory Zkbs065605/14/2024 11:12 AM ESTOxygen Qjkfctzvry68%03/14/2025 11:12 AM ESTon room airInhaled Oxygen Concentration--Vxujbt938.3 kg (263 lb)03/14/2025 11:12 AM ESTPatient NkgxadvcQyrsdl130.2 cm (6' 2.5 )03/14/2025 11:12 AM ESTBody Mass Index33.32105/14/2024 11:12 AM EST Plan of Treatment DateTypeDepartmentCare Team (Latest Contact Info)Yrljimhzmru49/10/2026 1:00 PM ESTOffice Visit [facility] [address], [address] [place] [address] Davin Reyes DO [address] [place] [address] 1 YR F/U OSAHealth MaintenanceDue DateLast DoneCommentsDepression Screen 1961Hepatitis C diuque5509/19/19678385Ctojsy07/01/5856Uuqvcbqqdcg72/01/1995 FIT/FOBT: Average risk1994Sigmoidoscopy/CT uckznbjqnjir00/01/1995 Colorectal Cancer Shgsqr9602/12/2025Fecal-DNA (Cologuard): Average risk02/12/2025 02/12/2022, 11/08/2018Annual Wellness Visit (Medicare)03/10/2025DTaP/Tdap/Td vaccine (3 - Tdap)7010/02/2016, 02/25/2006Pneumococcal 50+ years Vaccine Xswmsnhdx12/04/2016, 01/18/2015, 03/01/2009Shingles cyxvbeiYxtjliinx83/27/2023, 07/08/2022Respiratory Syncytial Virus (RSV) or age 60 yrs+Completed 03/03/2023OVID-19 LmnttgtEhjaomchx69/04/2025, 12/22/2023, 11/28/2022, Additional history existsFlu awotobhUnspapxur03/04/2025, 12/09/2023, 12/16/2022, Additional history existsHepatitis A vaccineAged OutNo longer eligible based on patient's age to complete this topicHepatitis B vaccineAged OutNo longer eligible based on patient's age to complete this topicHib vaccineAged OutNo longer eligible based on patient's age to complete this topicMeningococcal (ACWY) vaccineAged OutNo longer eligible based on patient's age to complete this topicMeningococcal B vaccineAged OutNo longer eligible based on patient's age to complete this topicPolio vaccineAged OutNo longer eligible based on patient's age to complete this topic Insurance * Guarantor: Neto JianangelitoAccount TypeRelation to PatientDate of BirthPhone Billing AddressPersonal/FhurfxVgox16/01/1951 (Home) [address] [place] [address] Advance Directives NameRelationshipHealthcare Agent RelationshipCommunicationMarjorie [facility] Primary Decision Maker* Care Teams Team MemberRelationshipSpecialtyStart DateEnd Date Alvin Contreras DO [address] [place] [address] PCP - GeneralInternal Mxmvgida06/21/25
[2025-03-17 10:35] LABS: Hematocrit 44.1 % (42.0-54.0); Hemoglobin 14.3 g/dL (14.0-18.0); Immature Granulocytes Abs Auto 0.02 10^3/uL (0.00-0.03); Immature Granulocytes Pct Auto 0.3 % (0.0-0.5); Lymphocytes Absolute Auto 1.4 10^3/uL (1.2-3.8); Mean Corpuscular HGB Conc 32.4 g/dL (29.9-35.2); Mean Corpuscular Hemoglobin 31.3 pg (25.9-34.0); Mean Corpuscular Volume 96.5 fL (80.0-94.0); Platelet Count 328 10^3/uL (150-450); Red Blood Count 4.57 10^6/uL (4.70-6.10); White Blood Count 6.0 10^3/uL (4.0-11.0)
[2025-03-17 11:43] LABS: Alanine Aminotransferase 34 U/L (16-63); Albumin Globulin Ratio 1.0; Albumin Level 3.7 g/dL (3.4-5.0); Alkaline Phosphatase 68 U/L (46-116); Anion Gap 10.6; Aspartate Amino Transferase 17 U/L (15-37); Blood Urea Nitrogen 16.0 mg/dL (7.0-18.0); Calcium 8.9 mg/dL (8.5-10.1); Carbon Dioxide 31.4 mmol/L (21.0-32.0); Chloride 105 mmol/L (98-107); Cholesterol 221 mg/dL (<=200); Estimated GFR (African America >60 (>=60 mL/min/1.73m^2); Estimated GFR (Non-African Ame >60 (>=60 mL/min/1.73m^2); Ferritin 125.0 ng/mL (26.0-388.0); Folate 20.60 ng/mL (8.60-58.90); Globulin 3.6 g/dL; Glucose 103 mg/dL (74-106); HDL Cholesterol 48 mg/dL (40-60); Potassium 4.0 mmol/L (3.5-5.1); Sodium 143 mmol/L (136-145); Thyroid Stimulating Hormone 1.090 uIU/mL (0.358-3.740); Total Protein 7.3 g/dL (6.4-8.2); Triglycerides 148 mg/dL (<=150); VLDL CHOLESTEROL 29.6 mg/dL
[2025-03-18 06:08] LABS: Vitamin B12 511 pg/mL (232-1245)
== END 2025-03-17 09:43 | disposition home or self-care (01) ==
LOC: LAB 09:46
PROVIDERS: PCP Internal Medicine; Visit Provider Internal Medicine
DX: D64.9 Anemia, unspecified (principal); I10 Essential (primary) hypertension; I48.0 Paroxysmal atrial fibrillation; E78.00 Pure hypercholesterolemia, unspecified; Z12.5 Encounter for screening for malignant neoplasm of prostate; R53.83 Other fatigue
CPT/HCPCS: 36415; 80053; 80061; 82607; 82728; 82746; 84443; 85025; G0103